=== PATIENT | male | born 1945 | race Caucasian/White ===

== ENCOUNTER 2017-03-07 19:05 | Emergency (ER) | payer MEDICARE, BC ==
--- NOTE | 2017-03-07 20:25 | ED ---
General Adult HPI - General Chief complaint: Shortness of Breath Stated complaint: diff breathing Time Seen by Provider: 03/07/17 19:40 Source: patient Mode of arrival: ambulatory Limitations: no limitations - History of Present Illness Initial comments: This 71-year-old white male presents with daughter with several complaints. She relates that he does have memory problems/dementia and is a fairly poor historian. She feels as though he is having some heavy breathing. He complains of some chest congestion. She relates that he's had some rhinorrhea and occasional cough. He denies any chest pain. She denies any fevers. He apparently has been tired recently and had some loose stools yesterday. He apparently had some slight blurry vision and occasional diaphoresis. She states that he cannot administer his own insulin and had decreased fine motor skills. He has had decreased food intake as well. She does relate a history of diabetes mellitus, atrial fibrillation previous CABG and dementia. She states that he is had some slight abdominal distention. No other complaints or modifying factors. - Related Data Home Medications Medication Instructions Recorded Confirmed Omeprazole [PriLOSEC] 20 mg PO AC-BRKFST 02/23/15 03/07/17 amLODIPine BESYLATE [Norvasc] 10 mg PO HS 05/11/15 03/07/17 Insulin Glargine [Lantus] 52 unit SQ W/SUPPER 10/03/16 03/07/17 Amitriptyline HCl [Elavil] 50 mg PO HS 03/07/17 03/07/17 Aspirin EC [Ecotrin Low Dose] 81 mg PO QAM 03/07/17 03/07/17 Atorvastatin Calcium [Lipitor] 40 mg PO HS 03/07/17 03/07/17 Cetirizine HCl [Zyrtec] 10 mg PO DAILY PRN 03/07/17 03/07/17 Cholecalciferol [Vitamin D3] 2,000 unit PO QAM 03/07/17 03/07/17 Docusate [Colace] 200 mg PO HS PRN 03/07/17 03/07/17 Furosemide [Lasix] 40 mg PO QAM 03/07/17 03/07/17 Gabapentin [Neurontin] 300 mg PO BID 03/07/17 03/07/17 HYDROcodone/APAP 7.5-325MG [[place] 1 tab PO Q6H PRN 03/07/17 03/07/17 7.5-325] INSULIN LISPRO (humaLOG) [humaLOG See Protocol SQ AC-TID 03/07/17 03/07/17 (formulary)] Lisinopril [Zestril] 2.5 mg PO QAM 03/07/17 03/07/17 Metoprolol Succinate (ER) [Toprol 50 mg PO HS 03/07/17 03/07/17 Xl] Potassium Citrate [Potassium 10 meq PO W/SUPPER 03/07/17 03/07/17 Citrate ER] Tamsulosin HCl [Flomax] 0.4 mg PO W/SUPPER 03/07/17 03/07/17 glipiZIDE XL [Glucotrol Xl] 5 mg PO QAM 03/07/17 03/07/17 metFORMIN HCL 1,000 mg PO BID 03/07/17 03/07/17 Previous Rx's Medication Instructions Recorded Donepezil [Aricept] 10 mg PO HS #30 03/13/15 Allergies Allergy/AdvReac Type Severity Reaction Status Date / Time No Known Allergies Allergy Verified 03/07/17 20:16 Review of Systems ROS Statement: Those systems with pertinent positive or pertinent negative responses have been documented in the HPI. ROS Other: All systems not noted in ROS Statement are negative. Past Medical History Past Medical History: Diabetes Mellitus, Hypertension, Memory Impairment Additional Past Medical History / Comment(s): nueropathy, History of Any Multi-Drug Resistant Organisms: None Reported Past Surgical History: Coronary Bypass/CABG, Orthopedic Surgery Additional Past Surgical History / Comment(s): Left foot surgery Past Anesthesia/Blood Transfusion Reactions: No Reported Reaction Past Psychological History: No Psychological Hx Reported Smoking Status: Never smoker Past Alcohol Use History: None Reported Past Drug Use History: None Reported - Past Family History Father Family Medical History: Congestive Heart Failure (CHF) Mother Family Medical History: Congestive Heart Failure (CHF) General Exam - General Exam Comments Initial Comments: GENERAL: The patient is well nourished and well hydrated. VITAL SIGNS: Heart rate, blood pressure, respiratory rate reviewed as recorded in nurse's notes. EYES: Pupils are round and reactive. Extraocular movements are intact. No conjunctival / lid redness or swelling. ENT: No external evidence of injury, swelling, or ecchymosis. Airway is patent. Throat is clear. NECK: Nontender. No swelling or evidence of injury. No subcutaneous emphysema. Trachea is midline. No thyroid mass. HEART: Regular rate and rhythm. Good peripheral pulses. LUNGS/CHEST: Breath sounds clear and equal bilaterally. No rales, rhonchi, or wheezes. No ecchymosis, subcutaneous emphysema, or tenderness. ABDOMEN: Abdomen soft without tenderness. No palpable masses or organomegaly. No peritoneal signs. No abdominal wall swelling or ecchymosis. EXTREMITIES: No extremity tenderness. Normal muscle tone and function. No thoracolumbar tenderness. NEUROLOGIC: Sensation is grossly intact. Cranial nerve exam reveals face is symmetrical, tongue is midline, speech is clear. SKIN: No abrasions or ecchymosis is noted. No induration or masses noted. PSYCHIATRIC: Alert and oriented. Appropriate behavior and judgment. Limitations: no limitations Course Vital Signs 03/07/17 03/07/17 03/07/17 19:13 20:57 22:21 Temperature 98.5 F 97.6 F 99.1 F Pulse Rate 85 79 85 Respiratory 20 18 18 Rate Blood Pressure 155/76 129/66 145/82 O2 Sat by Pulse 97 96 97 Oximetry Medical Decision Making - Medical Decision Making The patient was seen and examined. All diagnostics were reviewed. The patient had a EKG done which shows a normal sinus rhythm with a first-degree AV block. There is occasional PVCs noted. There is some T-wave inversion and leaves in V5 and V6. Is also T-wave inversion noted in the inferior leads. The UT interval is 260, QRS duration is 98, and the QTc interval is 432. The chest and abdominal x-ray was reviewed in no acute processes identified. Laboratories overall fairly unremarkable. The exact cause of his symptoms is not definitively determined. He is watched for several hours and is in no distress whatsoever on recheck. It is felt as though he is stable for discharge. Return parameters are discussed. Phillips as though he should have close follow-up with his primary doctor, Dr. Sharma. - Lab Data Result diagrams: 03/07/17 20:10 03/07/17 20:10 Lab Results 03/07/17 03/07/17 03/07/17 Range/Units 20:10 20:10 20:10 WBC 8.6 (3.8-10.6) k/uL RBC 4.49 (4.30-5.90) m/uL Hgb 13.5 (13.0-17.5) gm/dL Hct 40.0 (39.0-53.0) % MCV 89.0 (80.0-100.0) fL MCH 30.1 (25.0-35.0) pg MCHC 33.8 (31.0-37.0) g/dL RDW 13.7 (11.5-15.5) % Plt Count 184 (150-450) k/uL Neutrophils % 69 % Lymphocytes % 22 % Monocytes % 5 % Eosinophils % 1 % Basophils % 1 % Neutrophils # 5.9 (1.3-7.7) k/uL Lymphocytes # 1.9 (1.0-4.8) k/uL Monocytes # 0.4 (0-1.0) k/uL Eosinophils # 0.1 (0-0.7) k/uL Basophils # 0.1 (0-0.2) k/uL PT (9.0-12.0) sec INR (<1.1) APTT (22.0-30.0) sec D-Dimer (<0.60) mg/L FEU Sodium 140 (137-145) mmol/L Potassium 5.0 (3.5-5.1) mmol/L Chloride 104 (98-107) mmol/L Carbon Dioxide 23 (22-30) mmol/L Anion Gap 13 mmol/L BUN 31 H (9-20) mg/dL Creatinine 1.07 (0.66-1.25) mg/dL Est GFR (MDRD) Af Amer >60 (>60 ml/min/1.73 sqM) Est GFR (MDRD) Non-Af >60 (>60 ml/min/1.73 sqM) Glucose 161 H (74-99) mg/dL Calcium 9.4 (8.4-10.2) mg/dL Total Bilirubin 0.9 (0.2-1.3) mg/dL AST 50 (17-59) U/L ALT 61 (21-72) U/L Alkaline Phosphatase 73 (38-126) U/L Total Creatine Kinase 123 (55-170) U/L CK-MB (CK-2) 2.8 H* (0.0-2.4) ng/mL CK-MB (CK-2) Rel Index 2.3 Troponin I <0.012 (0.000-0.034) ng/mL NT-Pro-B Natriuret Pep pg/mL Total Protein 7.3 (6.3-8.2) g/dL Albumin 3.9 (3.5-5.0) g/dL Amylase 60 (30-110) U/L Lipase 230 (23-300) U/L 03/07/17 03/07/17 Range/Units 20:10 20:10 WBC (3.8-10.6) k/uL RBC (4.30-5.90) m/uL Hgb (13.0-17.5) gm/dL Hct (39.0-53.0) % MCV (80.0-100.0) fL MCH (25.0-35.0) pg MCHC (31.0-37.0) g/dL RDW (11.5-15.5) % Plt Count (150-450) k/uL Neutrophils % % Lymphocytes % % Monocytes % % Eosinophils % % Basophils % % Neutrophils # (1.3-7.7) k/uL Lymphocytes # (1.0-4.8) k/uL Monocytes # (0-1.0) k/uL Eosinophils # (0-0.7) k/uL Basophils # (0-0.2) k/uL PT 10.4 (9.0-12.0) sec INR 1.0 (<1.1) APTT 23.3 (22.0-30.0) sec D-Dimer 0.43 (<0.60) mg/L FEU Sodium (137-145) mmol/L Potassium (3.5-5.1) mmol/L Chloride (98-107) mmol/L Carbon Dioxide (22-30) mmol/L Anion Gap mmol/L BUN (9-20) mg/dL Creatinine (0.66-1.25) mg/dL Est GFR (MDRD) Af Amer (>60 ml/min/1.73 sqM) Est GFR (MDRD) Non-Af (>60 ml/min/1.73 sqM) Glucose (74-99) mg/dL Calcium (8.4-10.2) mg/dL Total Bilirubin (0.2-1.3) mg/dL AST (17-59) U/L ALT (21-72) U/L Alkaline Phosphatase (38-126) U/L Total Creatine Kinase (55-170) U/L CK-MB (CK-2) (0.0-2.4) ng/mL CK-MB (CK-2) Rel Index Troponin I (0.000-0.034) ng/mL NT-Pro-B Natriuret Pep 246 pg/mL Total Protein (6.3-8.2) g/dL Albumin (3.5-5.0) g/dL Amylase (30-110) U/L Lipase (23-300) U/L Disposition Clinical Impression: Dyspnea, Weakness, Fatigue, Dementia Disposition: HOME SELF-CARE Condition: Good Instructions: Dyspnea (ED), Weakness (ED) Referrals: Valente Sharma MD [Primary Care Provider] - 1-2 days Time of Disposition: 22:40
[2017-03-07 20:38] LABS: Basophils # (A) 0.1 k/uL (0-0.2); Basophils % (A) 1 %; CH 29.7; CHCM 33.5; Eosinophils # (A) 0.1 k/uL (0-0.7); Eosinophils % (A) 1 %; HDW 2.54; HGB 13.5 gm/dL (13.0-17.5); Luc % (Auto) 2; Lymphocytes # (A) 1.9 k/uL (1.0-4.8); Lymphocytes % (A) 22 %; MCH 30.1 pg (25.0-35.0); MCHC 33.8 g/dL (31.0-37.0); Mean Platelet Volume 6.8; Monocytes # (A) 0.4 k/uL (0-1.0); Monocytes % (A) 5 %; Neutrophils # (A) 5.9 k/uL (1.3-7.7); Neutrophils % (A) 69 %; RBC 4.49 m/uL (4.30-5.90); RDW 13.7 % (11.5-15.5); WBC 8.6 k/uL (3.8-10.6); WBC (Perox) 8.57
--- NOTE | 2017-03-07 20:47 | XR ---
EXAMINATION TYPE: XR chest 2V DATE OF EXAM: 03/07/2017 8:43 PM COMPARISON: 10/03/2016 HISTORY: Short of breath TECHNIQUE: Frontal and lateral views of the chest are obtained. FINDINGS: There is no heart failure nor confluent pneumonic infiltrate. There are no hilar masses. T here are sternal wires. Costophrenic angles are clear. Bony thorax is intact. IMPRESSION: No active cardiopulmonary disease. No change.
--- NOTE | 2017-03-07 20:48 | XR ---
EXAMINATION TYPE: XR abdomen 2V DATE OF EXAM: 03/07/2017 8:43 PM COMPARISON: NONE HISTORY: Abdominal pain TECHNIQUE: 3 views FINDINGS: There is no sign of intestinal obstruction or pneumoperitoneum. Fecal pattern is normal. Th ere are no pathologic calcifications over the kidneys. There is no sign of a mass. IMPRESSION: Nonacute abdomen.
[2017-03-07 20:50] LABS: Partial Thromboplastin Time 23.3 sec (22.0-30.0); Prothrombin Time 10.4 sec (9.0-12.0)
[2017-03-07 20:53] LABS: ALT 61 U/L (21-72); AST 50 U/L (17-59); Alkaline Phosphatase 73 U/L (38-126); Amylase 60 U/L (30-110); Anion Gap 13 mmol/L; Blood Urea Nitrogen 31 mg/dL (9-20); Calcium 9.4 mg/dL (8.4-10.2); Carbon Dioxide 23 mmol/L (22-30); Chloride 104 mmol/L (98-107); Glucose 161 mg/dL (74-99); Non-African American GFR(MDRD) >60 (>60 ml/min/1.73 sqM); Sodium 140 mmol/L (137-145); Total Bilirubin 0.9 mg/dL (0.2-1.3); Total Protein 7.3 g/dL (6.3-8.2)
[2017-03-07 20:57] LABS: Creatine Kinase 123 U/L (55-170)
[2017-03-07 20:58] VITALS: RESP 18
[2017-03-07 21:09] LABS: Troponin I <0.012 ng/mL (0.000-0.034)
[2017-03-07 21:11] LABS: Creatine Kinase MB 2.8 ng/mL (0.0-2.4)
[2017-03-07 22:22] VITALS: BP 145/82; PULSE 85; TEMP 99.1
== END 2017-03-07 23:01 | disposition home or self-care (01) ==
LOC: EC 19:05
DX: F03.90 Unspecified dementia, unspecified severity, without behavioral disturbance, psychotic disturbance, mood disturbance, and anxiety (principal); R06.02 Shortness of breath; R53.1 Weakness; R53.83 Other fatigue; I44.0 Atrioventricular block, first degree; I49.3 Ventricular premature depolarization; R09.89 Other specified symptoms and signs involving the circulatory and respiratory systems; H53.8 Other visual disturbances; J34.89 Other specified disorders of nose and nasal sinuses; R05 Cough; R61 Generalized hyperhidrosis; R14.0 Abdominal distension (gaseous); E11.9 Type 2 diabetes mellitus without complications; I10 Essential (primary) hypertension; Z79.4 Long term (current) use of insulin; Z79.82 Long term (current) use of aspirin; Z79.899 Other long term (current) drug therapy
CPT/HCPCS: 36415; 71020; 74020; 80053; 82150; 82550; 82553; 83690; 83880; 84484; 85025; 85379; 85610; 85730; 87040; 93005; 99285

== ENCOUNTER 2017-04-19 17:43 | Emergency (ER) | payer MEDICARE, BC ==
--- NOTE | 2017-04-19 19:27 | XR ---
EXAMINATION TYPE: XR chest 2V DATE OF EXAM: 04/19/2017 COMPARISON: 03/07/2017 INDICATION: Rib pain TECHNIQUE: Frontal and lateral views of the chest are obtained. FINDINGS: The heart size is normal. The pulmonary vasculature is normal. The lungs are clear. Sternotomy wires are in the midline. IMPRESSION: 1. No acute pulmonary process.
--- NOTE | 2017-04-19 20:32 | ED ---
General Adult HPI - General Chief complaint: Recheck/Abnormal Lab/Rx Stated complaint: abdominal swelling Source: patient Mode of arrival: ambulatory Limitations: no limitations - History of Present Illness Initial comments: 71-year-old male presented for evaluation of left chest wall pain. He states that about 2 weeks ago he had rib fractures to the left side and they have been healing well since. Over the last couple days however he has developed a small fluctuant mass to the anterior chest wall. It is only minimally tender to palpation and he states there is no overlying erythema or discoloration. Eyes any other symptoms at this time and just wanted to get it reevaluated. He sees his primary care physician on Tuesday. - Related Data Home Medications Medication Instructions Recorded Confirmed Omeprazole [PriLOSEC] 20 mg PO AC-BRKFST 02/23/15 04/19/17 amLODIPine BESYLATE [Norvasc] 10 mg PO HS 05/11/15 04/19/17 Insulin Glargine [Lantus] 52 unit SQ W/SUPPER 10/03/16 04/19/17 Amitriptyline HCl [Elavil] 50 mg PO HS 03/07/17 04/19/17 Aspirin EC [Ecotrin Low Dose] 81 mg PO QAM 03/07/17 04/19/17 Atorvastatin Calcium [Lipitor] 40 mg PO HS 03/07/17 04/19/17 Cetirizine HCl [Zyrtec] 10 mg PO DAILY PRN 03/07/17 04/19/17 Cholecalciferol [Vitamin D3] 2,000 unit PO QAM 03/07/17 04/19/17 Docusate [Colace] 200 mg PO HS PRN 03/07/17 04/19/17 Gabapentin [Neurontin] 300 mg PO BID 03/07/17 04/19/17 HYDROcodone/APAP 7.5-325MG [[place] 1 tab PO Q6H PRN 03/07/17 04/19/17 7.5-325] INSULIN LISPRO (humaLOG) [humaLOG See Protocol SQ AC-TID 03/07/17 04/19/17 (formulary)] Lisinopril [Zestril] 2.5 mg PO QAM 03/07/17 04/19/17 Metoprolol Succinate (ER) [Toprol 50 mg PO HS 03/07/17 04/19/17 Xl] Potassium Citrate [Potassium 10 meq PO W/SUPPER 03/07/17 04/19/17 Citrate ER] Tamsulosin HCl [Flomax] 0.4 mg PO W/SUPPER 03/07/17 04/19/17 glipiZIDE XL [Glucotrol Xl] 5 mg PO QAM 03/07/17 04/19/17 metFORMIN HCL 1,000 mg PO BID 03/07/17 04/19/17 Previous Rx's Medication Instructions Recorded Donepezil [Aricept] 10 mg PO HS #30 03/13/15 Allergies Allergy/AdvReac Type Severity Reaction Status Date / Time No Known Allergies Allergy Verified 04/19/17 19:31 Review of Systems ROS Statement: Those systems with pertinent positive or pertinent negative responses have been documented in the HPI. ROS Other: All systems not noted in ROS Statement are negative. Constitutional: Denies: fever, chills, night sweats Eyes: Denies: eye pain Respiratory: Denies: cough, dyspnea Cardiovascular: Denies: chest pain, palpitations, dyspnea on exertion, orthopnea Endocrine: Denies: fatigue, polydipsia, polyuria Gastrointestinal: Denies: abdominal pain, nausea, vomiting Genitourinary: Denies: urgency, dysuria Musculoskeletal: Reports: other (Left sided chest pain due to fractured ribs with overlying fluctuant mass). Denies: back pain, arthralgia, myalgia Skin: Denies: rash, lesions Neurological: Denies: headache, weakness Psychiatric: Denies: anxiety, depression Hematological/Lymphatic: Denies: easy bleeding, easy bruising Past Medical History Past Medical History: Dementia, Diabetes Mellitus, Hypertension, Memory Impairment Additional Past Medical History / Comment(s): nueropathy, History of Any Multi-Drug Resistant Organisms: None Reported Past Surgical History: Coronary Bypass/CABG, Orthopedic Surgery Additional Past Surgical History / Comment(s): Left foot surgery Past Anesthesia/Blood Transfusion Reactions: No Reported Reaction Past Psychological History: No Psychological Hx Reported Smoking Status: Never smoker Past Alcohol Use History: None Reported Past Drug Use History: None Reported - Past Family History Father Family Medical History: Congestive Heart Failure (CHF) Mother Family Medical History: Congestive Heart Failure (CHF) General Exam Limitations: no limitations General appearance: alert, in no apparent distress Head exam: Present: atraumatic, normocephalic, normal inspection Eye exam: Present: normal appearance, PERRL, EOMI. Absent: scleral icterus, conjunctival injection, periorbital swelling ENT exam: Present: normal exam, mucous membranes moist Neck exam: Present: normal inspection. Absent: tenderness, meningismus, lymphadenopathy Respiratory exam: Present: normal lung sounds bilaterally. Absent: respiratory distress, wheezes, rales, rhonchi, stridor Cardiovascular Exam: Present: regular rate, normal rhythm, normal heart sounds. Absent: systolic murmur, diastolic murmur, rubs, gallop, clicks GI/Abdominal exam: Present: soft, normal bowel sounds. Absent: distended, tenderness, guarding, rebound, rigid Rectal exam: Present: deferred Extremities exam: Present: normal inspection, full ROM, normal capillary refill. Absent: tenderness, pedal edema, joint swelling, calf tenderness Back exam: Present: normal inspection Neurological exam: Present: alert, oriented X3, CN II-XII intact Psychiatric exam: Present: normal affect, normal mood Skin exam: Present: warm, dry, intact, normal color, other (3 cm x 1 cm fluctuant mass to the anterior surface of the left lower chest.). Absent: rash Course Vital Signs 04/19/17 04/19/17 17:51 20:49 Temperature 98.1 F 98.7 F Pulse Rate 78 74 Respiratory 20 17 Rate Blood Pressure 124/68 128/82 O2 Sat by Pulse 98 99 Oximetry Medical Decision Making - Medical Decision Making 71-year-old male presented for evaluation of fluctuant mass to the chest 2 weeks post rib fractures. On physical examination the mass is fluctuant but on chest x-ray that shows no malalignment of the ribs. Concern for the mass being an underlying hematoma the ribs. The patient and his daughter were informed of the results and that they be discharged with instructions to keep the appointment on Tuesday with primary care physician but to return to this facility if his symptoms should worsen or persist. The patient and his daughter acknowledged an understanding of this information and agreed with this plan of care. Disposition Clinical Impression: Rib contusion Disposition: HOME SELF-CARE Condition: Stable Instructions: Rib Fracture (ED) Referrals: Valente Sharma MD [Primary Care Provider] - 1-2 days Time of Disposition: 20:31
[2017-04-19 20:51] VITALS: BP 128/82; PULSE 74; RESP 17; TEMP 98.7
== END 2017-04-19 20:49 | disposition home or self-care (01) ==
LOC: EC 17:43
DX: S20.212D Contusion of left front wall of thorax, subsequent encounter (principal); F03.90 Unspecified dementia, unspecified severity, without behavioral disturbance, psychotic disturbance, mood disturbance, and anxiety; E11.9 Type 2 diabetes mellitus without complications; I10 Essential (primary) hypertension; E11.40 Type 2 diabetes mellitus with diabetic neuropathy, unspecified; Z79.4 Long term (current) use of insulin; Z79.82 Long term (current) use of aspirin; Z79.899 Other long term (current) drug therapy; Z95.1 Presence of aortocoronary bypass graft; W19.XXXD Unspecified fall, subsequent encounter
CPT/HCPCS: 71020; 99284

== ENCOUNTER → 2017-04-27 | Outpatient (CLI) | payer MEDICARE, BC ==
--- NOTE | 2017-04-27 17:53 | US ---
EXAMINATION TYPE: US mass soft tissue chest/back DATE OF EXAM: 04/27/2017 COMPARISON: NONE CLINICAL HISTORY: S20.20XS Contusion of thorax. Findings There is demonstration of a large elongated complex fluid collection in the subcutaneous tissues in t he area of concern. This measures 9 x 2 x 4 cm. IMPRESSION: There is evidence of a chest wall hematoma as above. Abscess is in the differential diag nosis.
== END | disposition home or self-care (01) ==
LOC: RADUSMAIN 16:54
PROVIDERS: ATTEND Family Medicine
DX: S20.219S Contusion of unspecified front wall of thorax, sequela (principal)

== ENCOUNTER → 2019-05-18 | Outpatient (CLI) | payer MEDICARE, BC ==
--- NOTE | 2019-05-23 15:20 | P.ARTDOP ---
Arterial Doppler LOWER EXTREMITY ARTERIAL DOPPLER: DATE OF SERVICE: 05/18/2019 Reason for study: Foot ulcers. Doppler waveforms: Multiphasic bilaterally throughout. Pulse volume recording: []. Pressure gradients: Only registered at the right foot. Ankle-brachial indices: Abnormally high. Toe pressures: 54 on the right, 96 on the left Impression: Suspect calcific wall disease of modest clinical severity. Perfusion pressures are probably adequate for healing on both sides. Left side is somewhat better perfused than the right. Clinical correlation recommended.
== END | disposition home or self-care (01) ==
LOC: RADUSWWP 14:19
PROVIDERS: ATTEND Family Medicine
DX: L97.909 Non-pressure chronic ulcer of unspecified part of unspecified lower leg with unspecified severity (principal)
CPT/HCPCS: 93923

== ENCOUNTER → 2019-11-07 | Outpatient (CLI) | payer MEDICARE, BC ==
[2019-11-07 15:58] LABS: HCT 42.1 % (39.0-53.0); MCH 29.1 pg (25.0-35.0); MCHC 33.4 g/dL (31.0-37.0); MCV 87.3 fL (80.0-100.0); Platelet Count 239 k/uL (150-450); RBC 4.82 m/uL (4.30-5.90); RDW 12.9 % (11.5-15.5); WBC 9.5 k/uL (3.8-10.6)
[2019-11-07 16:10] LABS: Potassium 4.7 mmol/L (3.5-5.1)
== END | disposition home or self-care (01) ==
LOC: LABPAT 14:46
PROVIDERS: ATTEND Internal Medicine Interventional Cardiology
DX: Z01.812 Encounter for preprocedural laboratory examination (principal); I70.213 Atherosclerosis of native arteries of extremities with intermittent claudication, bilateral legs
CPT/HCPCS: 36415; 80051; 82565; 84520; 85027

== ENCOUNTER 2019-11-09 07:23 | Day surgery (SDC) | payer MEDICARE, BC ==
[2019-11-08 12:19] VITALS: BMI 36.9
[~2019-11-09 07:23] MED LIST: ALPRAZolam 0.25 MG TAB PO PRN; ALPRAZolam 0.5 MG TAB PO PRN; ASPIRIN 325 MG TAB PO STA; SODIUM CHLORIDE 0.9% 1,000 ML in EMPTY BAG 1 BAG IV ONE; ZOLPIDEM 5 MG TAB PO PRN
[2019-11-09 08:07] LABS: Glucose,Whole Blood 144 mg/dL (75-99)
[2019-11-09] MEDS: MIDAZOLAM 2 MG/2 ML VIAL IV ONE ×2 (09:01→09:07)
[2019-11-09] MEDS ORDERED: LIDOCAINE 1% INJ 10MG/ML (20 ML MDV) SQ ONE (09:08)
[2019-11-09] MEDS ORDERED: IOPAMIDOL-250 100ML BTL INTRAARTER ONE (09:28)
[2019-11-09] MEDS ORDERED: SODIUM CHLORIDE 0.9% 1,000 ML IV SCH ×2 (09:45→10:00)
--- NOTE | 2019-11-09 10:11 | AN ---
ANGIOGRAPHY REPORT DATE OF SERVICE: November 09, 2019 PERFORMING PHYSICIAN: Fernando Hodges MD. PROCEDURE PERFORMED: 1. An abdominal aortogram. 2. Bilateral lower extremities runoff. 3. Selective left popliteal angiogram. 4. Selective right common femoral artery angiogram. INDICATION: This is a 74-year-old gentleman who sees Dr. Sigala in the office on a regular basis with history of coronary artery disease and prior CABG, aortic stenosis and diabetes, who was referred by Dr. Sharma for further evaluation of peripheral arterial disease. He was struggling with nonhealing ulcers involving the left foot and the ulcers specifically are located on the left baby toe as well as on the dorsal aspect of the left foot. APPROACH: Right common femoral artery. COMPLICATION: None. LEVEL OF SEDATION: Moderate with sedation length of 22 minutes. PROCEDURE DESCRIPTION: After obtaining an informed consent, the patient was brought to the cardiac cemetery laborer. The right common femoral artery was cannulated using micropuncture technique, the micropuncture wire passed easily then I placed a 5-[place] sheath. I did after that an abdominal aortogram and bilateral lower extremities runoff using 5-[place] pigtail catheter which was initially placed at the level of the renal arteries then it was pulled into above the bifurcation of the aorta to right and left common iliac arteries. Subsequently, I did select the left popliteal using a 5-[place] Omni Flush catheter with 0.035 Glidewire. I did after that exchange the Omni Flush catheter into a curved tipped glide catheter. I did selective left popliteal angiogram for better visualization of the arteries below the knee and also selective right common femoral artery angiogram. The procedure was completed without any complication. SELECTIVE PERIPHERAL ANGIOGRAM: 1. The aorta appeared to be angiographically normal. 2. Common Iliac Arteries: Both appear to be angiographically normal. 3. Internal Iliac Arteries: Both are patent. 4. External Iliac Arteries: Both are angiographically normal. 5. Common Femoral Arteries: Both appear to be angiographically normal. 6. Profunda: Both appear to be angiographically normal. 7. SFA: The right and left SFA appear to have mild to moderate disease without any high-grade stenosis. 8. Popliteal appear to have mild to moderate disease without any high-grade stenosis. 9. Below the knee: On the right side, there is one-vessel runoff with anterior tibial artery only which has a lesion in the proximal portion about 70% to 80%. On the left side, there is 2-vessel runoff. The anterior tibial which is occluded in the midportion on short segment and peroneal as well. The posterior tibial is occluded as well. CONCLUSION: 1. Mild aortoiliac disease. 2. Mild to moderate femoral-popliteal disease. 3. Severe qyrxj-sfa-piec disease bilaterally. On the right side, the anterior tibial is occluded on short segment. On the left side, the patient does have one vessel runoff with anterior tibial which has severe disease. POSTPROCEDURE MANAGEMENT: Giving the above anatomy and the ulcer location on the left side, the ulcer is in the distribution of the left anterior tibial artery by , the patient needs to undergo a STARS COORDINATOR of the left anterior tibial artery. The patient will be scheduled to have the procedure done in the next few weeks. MMROSENDO / JOHNN: [id number] /
[2019-11-09] MEDS ORDERED: ACETAMINOPHEN TAB 325 MG TAB ONE (16:22)
[2019-11-09 16:34] LABS: Glucose,Whole Blood 343 mg/dL (75-99)
[2019-11-09] MEDS ORDERED: guaiFENesin 600 MG TABLET.ER PO PRN (16:39)
[2019-11-09] MEDS ORDERED: guaiFENesin SYRUP 100MG/5ML 200 MG/10 ML CUP PO PRN (16:39)
[2019-11-09] MEDS: INSULIN ASPART (NovoLOG) 100 UNIT/ML VIAL SQ SCH ×2 (16:47→21:46)
[2019-11-09] MEDS ORDERED: INSULIN DETEMIR (LEVEMIR) 100 UNIT/ML SYR SQ SCH (17:30)
[2019-11-09] MEDS ORDERED: TAMSULOSIN 0.4 MG CAP.ER.24H PO SCH (17:30)
[2019-11-09] MEDS ORDERED: POTASSIUM CITRATE 10 MEQ TABLET.ER PO SCH (17:30)
[2019-11-09 17:53] VITALS: RESP 18
[2019-11-09 20:39] LABS: Glucose,Whole Blood 282 mg/dL (75-99)
[2019-11-09] MEDS ORDERED: LEVOFLOXACIN 500 MG TAB PO SCH (21:00)
[2019-11-09] MEDS ORDERED: DONEPEZIL 10 MG TAB PO SCH (21:00)
[2019-11-09] MEDS ORDERED: METOPROLOL SUCCINATE (ER) 50 MG TAB.ER.24H PO SCH (21:00)
[2019-11-09] MEDS ORDERED: amLODIPine 10 MG TAB PO SCH (21:00)
[2019-11-09] MEDS ORDERED: ATORVASTATIN 80 MG TAB PO SCH (21:00)
[2019-11-09] MEDS ORDERED: AMITRIPTYLINE HCL 50 MG TAB PO SCH (21:00)
[2019-11-09] MEDS: GABAPENTIN 300 MG CAP PO SCH (21:46)
[2019-11-10 04:57] VITALS: TEMP 97.4
[2019-11-10 07:13] LABS: Glucose,Whole Blood 146 mg/dL (75-99)
[2019-11-10] MEDS ORDERED: PANTOPRAZOLE 40 MG TABLET PO SCH (07:30)
[2019-11-10 08:16] VITALS: BP 112/63; PULSE 97
[2019-11-10] MEDS: INSULIN ASPART (NovoLOG) 100 UNIT/ML VIAL SQ SCH ×2 (08:20→13:00)
[2019-11-10] MEDS: GABAPENTIN 300 MG CAP PO SCH (08:27)
--- NOTE | 2019-11-10 08:57 | P.DS ---
Providers Date of admission: 11/09/2019 Attending physician: Fernando Hodges Primary care physician: Valente Lopez [facility] Hospital Course: This is a 75-year-old gentleman who was referred for further evaluation of critical limb ischemia. He underwent an aortogram with runoff yesterday which revealed critical below the knee disease bilaterally. The procedure was performed from the right groin which is soft and nontender and without any bruises. The patient is going to be discharged home and I will follow-up with him next week in the office. Plan - Discharge Summary Discharge Rx Participant: Yes New Discharge Prescriptions: Continue Omeprazole [PriLOSEC] 20 mg PO AC-BRKFST Donepezil [Aricept] 10 mg PO HS #30 amLODIPine BESYLATE [Norvasc] 10 mg PO HS Insulin Glargine [Lantus] 56 unit SQ W/SUPPER Amitriptyline HCl [Elavil] 50 mg PO HS Aspirin EC [Ecotrin Low Dose] 81 mg PO QAM Atorvastatin Calcium [Lipitor] 80 mg PO HS Cholecalciferol [Vitamin D3 (25 Mcg = 1000 Iu)] 2,000 unit PO QAM Gabapentin [Neurontin] 300 mg PO BID Lisinopril [Zestril] 2.5 mg PO QAM Metoprolol Succinate (ER) [Toprol XL] 50 mg PO HS Potassium Citrate [Potassium Citrate ER] 10 meq PO W/SUPPER Tamsulosin HCl [Flomax] 0.4 mg PO W/SUPPER Levofloxacin [Levaquin] 500 mg PO DAILY Furosemide [Lasix] 40 mg PO DAILY guaiFENesin [Mucinex] 1,200 mg PO Q12HR PRN PRN Reason: Cough guaiFENesin [Diabetic Tussin Ex] 5 ml PO DIRECTED PRN PRN Reason: Cough Semaglutide [Ozempic] 1 mg SQ TU Insulin Aspart [NovoLOG Flexpen] See Protocol SQ AC-TID Discontinued metFORMIN HCL 1,000 mg PO BID Discharge Medication List Omeprazole [PriLOSEC] 20 mg PO AC-BRKFST 02/23/15 [History] Donepezil [Aricept] 10 mg PO HS #30 03/13/15 [Rx] amLODIPine BESYLATE [Norvasc] 10 mg PO HS 05/11/15 [History] Insulin Glargine [Lantus] 56 unit SQ W/SUPPER 10/03/16 [History] Amitriptyline HCl [Elavil] 50 mg PO HS 03/07/17 [History] Aspirin EC [Ecotrin Low Dose] 81 mg PO QAM 03/07/17 [History] Atorvastatin Calcium [Lipitor] 80 mg PO HS 03/07/17 [History] Cholecalciferol [Vitamin D3 (25 Mcg = 1000 Iu)] 2,000 unit PO QAM 03/07/17 [H istory] Gabapentin [Neurontin] 300 mg PO BID 03/07/17 [History] Lisinopril [Zestril] 2.5 mg PO QAM 03/07/17 [History] Metoprolol Succinate (ER) [Toprol XL] 50 mg PO HS 03/07/17 [History] Potassium Citrate [Potassium Citrate ER] 10 meq PO W/SUPPER 03/07/17 [History] Tamsulosin HCl [Flomax] 0.4 mg PO W/SUPPER 03/07/17 [History] Furosemide [Lasix] 40 mg PO DAILY 11/08/19 [History] Insulin Aspart [NovoLOG Flexpen] See Protocol SQ AC-TID 11/08/19 [History] Levofloxacin [Levaquin] 500 mg PO DAILY 11/08/19 [History] Semaglutide [Ozempic] 1 mg SQ TU 11/08/19 [History] guaiFENesin [Diabetic Tussin Ex] 5 ml PO DIRECTED PRN 11/08/19 [History] guaiFENesin [Mucinex] 1,200 mg PO Q12HR PRN 11/08/19 [History] Follow up Appointment(s)/Referral(s): Fernando Hodges MD [STAFF PHYSICIAN] - 11/19/19 1:45 pm Patient Instructions/Handouts: Moderate Sedation (DC), Angiography (DC) Activity/Diet/Wound Care/Special Instructions: Ok to shower tomorrow. Take dressing off before showering. No baths hot tubs pools for three days. Signs of infection ie: fever, rash, drainage, swelling from puncture site contact Doctor immediately/return to ER. Heavy bleeding from puncture site apply Heavy firm pressure to site and call 911. Avoid stairs, lifting, pushing pulling for two days. no Metformin until Tuesday evening dose.
[2019-11-10] MEDS ORDERED: CHOLECALCIFEROL 1,000 UNIT TAB PO SCH (09:00)
[2019-11-10] MEDS ORDERED: LISINOPRIL 2.5 MG TAB PO SCH (09:00)
[2019-11-10] MEDS ORDERED: ASPIRIN 81 MG PO SCH (09:00)
[2019-11-10] MEDS ORDERED: FUROSEMIDE 40 MG TAB PO SCH (09:00)
[2019-11-10 11:56] LABS: Glucose,Whole Blood 280 mg/dL (75-99)
--- NOTE | 2019-11-12 12:12 | IR ---
Fluoroscopy HISTORY: Ulcer to left toe 5.1 minutes fluoroscopy time supplied to the referring clinician. 186 intraoperative C-arm images do cument the procedure. See dictated report from cardiology.
[2019-11-13] MEDS ORDERED: Semaglutide [Ozempic] 1 MG SQ SCH (09:00)
== END 2019-11-10 13:00 ==
LOC: CATHCVL 07:23 → 1SOBS 09:30 → CATHCVL 11-10 13:00
PROVIDERS: ATTEND Internal Medicine Interventional Cardiology
DX: I25.10 Atherosclerotic heart disease of native coronary artery without angina pectoris (principal); I73.9 Peripheral vascular disease, unspecified; E11.9 Type 2 diabetes mellitus without complications; I35.0 Nonrheumatic aortic (valve) stenosis; I77.9 Disorder of arteries and arterioles, unspecified; E78.5 Hyperlipidemia, unspecified; Z79.82 Long term (current) use of aspirin; Z79.4 Long term (current) use of insulin; I48.91 Unspecified atrial fibrillation; Z95.1 Presence of aortocoronary bypass graft; I11.0 Hypertensive heart disease with heart failure; I50.9 Heart failure, unspecified; I99.8 Other disorder of circulatory system
CPT/HCPCS: 36247; 75625; 75716

== ENCOUNTER 2020-01-02 09:17 | Day surgery (SDC) | payer MEDICARE, BC ==
[2019-12-31 15:35] VITALS: BMI 37.5
[~2020-01-02 09:17] MED LIST changes: -ALPRAZolam 0.5 MG TAB PO PRN; -ZOLPIDEM 5 MG TAB PO PRN
[2020-01-02 10:10] LABS: Glucose,Whole Blood 192 mg/dL (75-99)
[2020-01-02 10:17] LABS: Glucose,Whole Blood 203 mg/dL (75-99)
[2020-01-02] MEDS ORDERED: SODIUM CHLORIDE 0.9% 1,000 ML IV ONE (10:17)
[2020-01-02] MEDS ORDERED: INSULIN ASPART (NovoLOG) 100 UNIT/ML VIAL SQ ONE (10:21)
[2020-01-02] MEDS ORDERED: SODIUM CHLORIDE 0.9% 500 ML 500 ML with niCARdipine 6.25 MG, NITROGLYCERIN-D5W PMX 0.05... IV ONE ×4 (10:29)
[2020-01-02] MEDS ORDERED: MIDAZOLAM 2 MG/2 ML VIAL IVP ONE ×2 (11:00→11:12)
[2020-01-02] MEDS ORDERED: LIDOCAINE 1% INJ 10MG/ML (20 ML MDV) SQ ONE (11:02)
[2020-01-02] MEDS ORDERED: HEPARIN SODIUM 1,000 UN/ML (10ML VL) IV ONE (11:06)
[2020-01-02] MEDS ORDERED: HYDROmorphone 1 MG/ML 1 ML SYRINGE IVP ONE (11:09)
[2020-01-02] MEDS: NITROGLYCERIN 1000MCG/10ML SYRINGE INTRAARTER ONE ×2 (11:53→12:03)
[2020-01-02] MEDS: niCARdipine Syringe (1,000 mcg/10 mL) INTRAARTER ONE ×2 (11:53→12:03)
[2020-01-02] MEDS ORDERED: CLOPIDOGREL 75 MG TAB PO ONE (12:20)
[2020-01-02] MEDS ORDERED: IOPAMIDOL-250 100ML BTL INTRAARTER ONE (12:21)
[2020-01-02] MEDS ORDERED: SODIUM CHLORIDE 0.9% 1,000 ML in EMPTY BAG 1 BAG IV SCH (12:30)
[2020-01-02] MEDS: INSULIN ASPART (NovoLOG) 100 UNIT/ML VIAL SQ SCH ×4 (12:30→20:01)
[2020-01-02 12:49] LABS: Glucose,Whole Blood 135 mg/dL (75-99)
[2020-01-02] MEDS ORDERED: ACETAMINOPHEN TAB 325 MG TAB ONE (12:57)
--- NOTE | 2020-01-02 13:10 | LTR ---
DATE OF SERVICE: 01/02/2020 RE: [place] Tim Dear Dr. Sharma; Mr. Tim Coleman underwent today successful balloon angioplasty of the left anterior tibial artery with an excellent angiographic result and reduction of stenosis from 100% to 0%. With that, his left foot ulcer should heal completely. I want to thank you for allowing us to participate in his care and please do not hesitate to call if you have any question or concern. Sincerely, Fernando Hodges MD MMMARYANL / JOHNN: [id number] /
--- NOTE | 2020-01-02 13:16 | AN ---
ANGIOGRAPHY REPORT DATE OF SERVICE: 01/02/2020 PERFORMING PHYSICIAN: Fernando Hodges MD. PROCEDURE PERFORMED: 1. Selective left anterior tibial angiogram. 2. Selective left popliteal angiogram. 3. Selective right common femoral artery angiogram. 4. Intravascular ultrasound IVUS of the left anterior tibial and left popliteal artery. 5. Atherectomy of the left anterior tibial and left popliteal using the orbital atherectomy device. 6. Successful balloon angioplasty of the left anterior tibial artery using 2.5 x 120 mm chocolate balloon with an excellent angiographic result and reduction of stenosis from 100% to 0%. 7. Successful balloon angioplasty of the left popliteal using 14 mm drug-coated balloon with an excellent angiographic results. INDICATION: This is a very pleasant 74-year-old gentleman who sees Dr. Sigala in the office as an outpatient who sees also Dr. Sigala as an outpatient who was struggling with evidence of critical limb ischemia. He underwent an angiogram which revealed severe jvcnt-[id number] disease on the left side with occluded anterior tibial artery as well as occluded posterior tibial artery and severe disease involving the left peroneal artery. Beside that, he was found to have intermediate to severe disease involving the left popliteal. Because of that, he was brought today to undergo a JANITOR CUSTODIAN of the left anterior tibial artery. APPROACH: Right common femoral artery. COMPLICATION: None. Level of sedation is moderate with sedation length of 16 minutes. PROCEDURE DESCRIPTION: After obtaining informed consent, the patient was brought to the cardiac medical laboratory technical officer. The right common femoral artery was cannulated using micropuncture technique, the micropuncture wire passed easily then I placed a 6-[place] sheath 11 cm at the right common femoral artery. After that, I did place a 6-[place] sheath 11 cm at the right common femoral artery. At that point, anticoagulation was initiated using heparin and the patient was given a weight-based heparin with 8000 units of heparin IV. ACT monitoring was done throughout the procedure. After that, I did select the left SFA using 5-[place] Rim catheter with 0.035 glide Advantage wire. After that, I did exchange my 11 cm 6-[place] sheath into 70 cm 6- [place] Raabe sheath using the 0.035 [place] Advantage wire. The sheath was advanced all the way to the mid to distal left SFA under fluoroscopy guidance. After that, I did selective left ivmpt-dkt-[id number] angiogram which revealed severe below- the-knee disease on the left side with occluded posterior tibial, occluded anterior tibial, and severe disease involving the tibioperoneal trunk as well as peroneal. I was able to cross the chronic the total occlusion of the left anterior tibial artery using a 0.18 wolff tip glidewire with the backup support of 0.18 quick Cross catheter. That was performed where the Quick Cross was following the wire all the way to the distal left anterior tibial artery. After that, I pulled the wire out and I did inject contrast to prove that I was in the true lumen in the left anterior tibial artery. After that, I did advance a Viper wire which was over 0.014 wire into the Quick Cross catheter, preparing for rotational atherectomy. Before rotational atherectomy was performed, I did intravascular ultrasound which revealed calcified left anterior tibial artery with minimal lumen diameter of about 2.75 mm. I did atherectomy of the left anterior tibial artery using the orbital atherectomy device from [employer]. It was 1.25 mm solid james. After that, I did balloon angioplasty of the left anterior tibial artery using 2.5 mm x 120 mm chocolate balloon where the left anterior tibial artery was ballooned on multiple segments. The following angiogram showed good angiographic results. I did also atherectomy of the left popliteal artery which before that I did intravascular ultrasound which revealed severe lesion there above 70%. I did also after that balloon angioplasty of the left popliteal. At this time using 5 mm x 40 mm chocolate balloon. The balloon was inflated under 10 atmospheres for 3 minutes. The following angiogram showed excellent angiographic results with great flow in the left popliteal and left anterior tibial artery and the procedure was completed without any complication. I did exchange my long sheath into 11 cm 6-[place] short sheath using 0.035 [place] Advantage wire. After that, I did selective right common femoral artery angiogram which revealed good entry of the sheath where I did close the groin using the Angio- Seal device. POSTPROCEDURE MANAGEMENT: 1. Dual anti-platelet therapy. 2. Risk factors modifications. 3. Follow up with the patient. 4. JANITOR CUSTODIAN of the left peroneal and tibioperoneal trunk if the wound did not heal. MMODL / IJN: [id number] /
[2020-01-02] MEDS ORDERED: TAMSULOSIN 0.4 MG CAP.ER.24H PO SCH (17:30)
[2020-01-02] MEDS ORDERED: POTASSIUM CITRATE 10 MEQ TABLET.ER PO SCH (17:30)
[2020-01-02] MEDS ORDERED: INSULIN DETEMIR (LEVEMIR) 100 UNIT/ML SYR SQ SCH (17:30)
[2020-01-02 17:37] LABS: Glucose,Whole Blood 211 mg/dL (75-99)
[2020-01-02] MEDS: GABAPENTIN 300 MG CAP PO SCH (19:56)
[2020-01-02 20:01] LABS: Glucose,Whole Blood 374 mg/dL (75-99)
[2020-01-02] MEDS ORDERED: METOPROLOL SUCCINATE (ER) 50 MG TAB.ER.24H PO SCH (21:00)
[2020-01-02] MEDS ORDERED: DONEPEZIL 10 MG TAB PO SCH (21:00)
[2020-01-02] MEDS ORDERED: AMITRIPTYLINE HCL 50 MG TAB PO SCH (21:00)
[2020-01-02] MEDS ORDERED: amLODIPine 10 MG TAB PO SCH (21:00)
[2020-01-02] MEDS ORDERED: ATORVASTATIN 80 MG TAB PO SCH (21:00)
[2020-01-03 03:19] VITALS: RESP 18
[2020-01-03 06:14] LABS: Glucose,Whole Blood 205 mg/dL (75-99)
[2020-01-03] MEDS: INSULIN ASPART (NovoLOG) 100 UNIT/ML VIAL SQ SCH ×2 (06:23→12:14)
[2020-01-03 06:30] LABS: Basophils % (A) 0 %; Eosinophils # (A) 0.1 k/uL (0-0.7); Eosinophils % (A) 2 %; HCT 36.7 % (39.0-53.0); HGB 12.4 gm/dL (13.0-17.5); Lymphocytes # (A) 1.5 k/uL (1.0-4.8); Lymphocytes % (A) 20 %; MCH 29.1 pg (25.0-35.0); MCHC 33.8 g/dL (31.0-37.0); MCV 86.1 fL (80.0-100.0); Monocytes # (A) 0.4 k/uL (0-1.0); Monocytes % (A) 6 %; Neutrophils # (A) 5.3 k/uL (1.3-7.7); Neutrophils % (A) 70 %; Platelet Count 179 k/uL (150-450); RBC 4.27 m/uL (4.30-5.90); RDW 12.9 % (11.5-15.5); WBC 7.5 k/uL (3.8-10.6)
[2020-01-03 06:38] LABS: African American GFR (CKD) >90 (>60 ml/min/1.73 sqM); Anion Gap 4 mmol/L; Blood Urea Nitrogen 22 mg/dL (9-20); Calcium 8.7 mg/dL (8.4-10.2); Carbon Dioxide 31 mmol/L (22-30); Chloride 101 mmol/L (98-107); Glucose 212 mg/dL (74-99); Non-African American GFR(CKD) 79 (>60 ml/min/1.73 sqM); Potassium 4.6 mmol/L (3.5-5.1); Sodium 136 mmol/L (137-145)
[2020-01-03] MEDS ORDERED: PANTOPRAZOLE 40 MG TABLET PO SCH (07:30)
--- NOTE | 2020-01-03 07:55 | IR ---
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 Fluoroscopy was provided to the referring clinician. 19.7 minutes of fluoroscopy provided.
[2020-01-03] MEDS ORDERED: FUROSEMIDE 40 MG TAB PO SCH (09:00)
[2020-01-03] MEDS ORDERED: ASPIRIN 81 MG PO SCH (09:00)
[2020-01-03] MEDS ORDERED: CHOLECALCIFEROL 1,000 UNIT TAB PO SCH (09:00)
[2020-01-03] MEDS ORDERED: LISINOPRIL 2.5 MG TAB PO SCH (09:00)
[2020-01-03] MEDS ORDERED: CLOPIDOGREL 75 MG TAB PO SCH (09:00)
[2020-01-03] MEDS: GABAPENTIN 300 MG CAP PO SCH (09:44)
[2020-01-03 11:34] VITALS: PULSE 73; TEMP 96.5
[2020-01-03 11:48] LABS: Glucose,Whole Blood 295 mg/dL (75-99)
[2020-01-03 13:35] VITALS: BP 167/79
--- NOTE | 2020-01-04 08:56 | DS ---
DISCHARGE SUMMARY ADMISSION DATE: January 03, 2020. DISCHARGE DATE: January 03, 2020 BRIEF HISTORY: This is a very pleasant 74-year-old gentleman who underwent successful percutaneous peripheral intervention on the left anterior tibial artery. The patient was seen yesterday morning. The patient was asymptomatic. He is going to be discharged home on dual anti-platelet therapy and I will follow up with the patient next week in the office. MMROSENDO / JOHNN: [id number] /
[2020-01-08] MEDS ORDERED: SEMAGLUTIDE 1 MG SQ SCH (12:15)
== END 2020-01-03 14:56 | disposition home or self-care (01) ==
LOC: CATHCVL 09:17 → 3SCARD 16:07 → CATHCVL 01-03 14:56
PROVIDERS: ATTEND Internal Medicine Interventional Cardiology
DX: I70.292 Other atherosclerosis of native arteries of extremities, left leg (principal); I70.92 Chronic total occlusion of artery of the extremities; E11.51 Type 2 diabetes mellitus with diabetic peripheral angiopathy without gangrene; S81.802A Unspecified open wound, left lower leg, initial encounter; I99.8 Other disorder of circulatory system; I25.10 Atherosclerotic heart disease of native coronary artery without angina pectoris; I10 Essential (primary) hypertension; I35.0 Nonrheumatic aortic (valve) stenosis; E78.5 Hyperlipidemia, unspecified; Z95.1 Presence of aortocoronary bypass graft; Z79.82 Long term (current) use of aspirin; Z79.4 Long term (current) use of insulin; Z79.899 Other long term (current) drug therapy
CPT/HCPCS: 37225; 37229; 37252; 37253; 80048; 85025; C1760; C1894 ×2; C1714; C1769 ×6; C1887; C1753; C2623; C1725; J2250; J2001; J1644; J1170; Q9966

== ENCOUNTER 2020-01-20 17:26 | Inpatient (IN) | payer MEDICARE, BC ==
--- NOTE | 2020-01-20 18:07 | ED ---
General Adult HPI - General Chief complaint: Fall Stated complaint: Fall Time Seen by Provider: 01/20/20 17:46 Source: family, RN notes reviewed, old records reviewed Mode of arrival: wheelchair Limitations: no limitations - History of Present Illness Initial comments: 74-year-old male history of early dementia presenting with increased falls and difficulty ambulating. Over the past 48 hours the patient has had multiple falls on both his right and left side. There was head trauma with no LOC. Patient denies anticoagulants. He has history of early dementia, diabetes, hypertension. He has pain in his left ankle, left hip and low back. He denies chest pain or dyspnea. Denies a dull pain nausea vomiting. Denies fever or chills. - Related Data Home Medications Medication Instructions Recorded Confirmed Omeprazole [PriLOSEC] 20 mg PO AC-BRKFST 02/23/15 01/20/20 amLODIPine BESYLATE [Norvasc] 10 mg PO HS 05/11/15 01/20/20 Insulin Glargine [Lantus] 56 unit SQ W/SUPPER 10/03/16 01/20/20 Amitriptyline HCl [Elavil] 50 mg PO HS 03/07/17 01/20/20 Aspirin EC [Ecotrin Low Dose] 81 mg PO [facility] 03/07/17 01/20/20 Cholecalciferol [Vitamin D3 (25 2,000 unit PO [facility] 03/07/17 01/20/20 Mcg = 1000 Iu)] Gabapentin [Neurontin] 300 mg PO BID 03/07/17 01/20/20 Lisinopril [Zestril] 2.5 mg PO [facility] 03/07/17 01/20/20 Metoprolol Succinate (ER) [Toprol 50 mg PO HS 03/07/17 01/20/20 XL] Potassium Citrate [Potassium 10 meq PO W/SUPPER 03/07/17 01/20/20 Citrate ER] Tamsulosin HCl [Flomax] 0.4 mg PO W/SUPPER 03/07/17 01/20/20 Furosemide [Lasix] 40 mg PO DAILY 11/08/19 01/20/20 Insulin Aspart [NovoLOG Flexpen] See Protocol SQ AC-TID 11/08/19 01/20/20 Semaglutide [Ozempic] 1 mg SQ SA 11/08/19 01/20/20 metFORMIN HCL [Glucophage] 1,000 mg PO BID 01/01/20 01/20/20 Atorvastatin [Lipitor] 40 mg PO HS 01/20/20 01/20/20 Previous Rx's Medication Instructions Recorded Donepezil [Aricept] 10 mg PO HS #30 03/13/15 Allergies Allergy/AdvReac Type Severity Reaction Status Date / Time No Known Allergies Allergy Verified 01/20/20 18:28 Review of Systems ROS Statement: Those systems with pertinent positive or pertinent negative responses have been documented in the HPI. ROS Other: All systems not noted in ROS Statement are negative. Past Medical History Past Medical History: Dementia, Diabetes Mellitus, Hyperlipidemia, Hypertension, Memory Impairment, Vascular Disorder Additional Past Medical History / Comment(s): neuropathy History of Any Multi-Drug Resistant Organisms: None Reported Past Surgical History: Coronary Bypass/CABG, Orthopedic Surgery Additional Past Surgical History / Comment(s): Left foot surgery, 5 vessel CABG 2014, recent aortogram Past Anesthesia/Blood Transfusion Reactions: No Reported Reaction Past Psychological History: Anxiety, Depression Smoking Status: Never smoker - Past Family History Father Family Medical History: Congestive Heart Failure (CHF) Mother Family Medical History: Congestive Heart Failure (CHF) General Exam Limitations: no limitations General appearance: alert, in no apparent distress Head exam: Present: atraumatic, normocephalic Eye exam: Present: normal appearance, PERRL ENT exam: Present: normal exam Neck exam: Present: normal inspection, full ROM. Absent: tenderness, meningismus Respiratory exam: Present: normal lung sounds bilaterally. Absent: respiratory distress, wheezes Cardiovascular Exam: Present: regular rate, normal rhythm GI/Abdominal exam: Present: soft. Absent: distended, tenderness, guarding, rebound Extremities exam: Present: full ROM (Decreased range of motion at the left hip) Back exam: Present: paraspinal tenderness (Paraspinal tenderness, left flank ecchymosis) Neurological exam: Present: alert, oriented X3, CN II-XII intact, abnormal gait. Absent: motor sensory deficit Psychiatric exam: Present: normal affect, normal mood Skin exam: Present: warm, dry, intact. Absent: cyanosis, diaphoretic Course Vital Signs 01/20/20 17:35 Temperature 97.7 F Pulse Rate 76 Respiratory 16 Rate Blood Pressure 125/80 O2 Sat by Pulse 98 Oximetry EKG Findings - EKG Comments: EKG Findings:: EKG: Sinus rhythm with first-degree AV block, PVC no ST segment elevation rate of 78, WV interval 302, QRS duration 106, QTC 435, improved compared to previous EKG in February 2017. Medical Decision Making - Medical Decision Making 74-year-old male with increased weakness, multiple falls, difficulty ambulating at home. He's had several falls over the past 24 hours. His workup for traumatic injury in the emergency Department is essentially negative. He has a CT brain which is negative for intracranial hemorrhage or mass effect, CT cervical spine negative for subluxation or fracture. Chest x-ray negative for acute bony abdomen, no pneumonia, no pneumothorax. X-rays of the lumbar spine, hip, pelvis and left ankle are all negative for acute bony abnormality. Patient has a normal CBC, normal CMP, normal urinalysis. He has a lactic acid 4.3 which is likely secondary to dehydration. He is given IV hydration emergency department. He will be admitted, may require placement for rehabilitation, improved and improvement in strength. - Lab Data Result diagrams: 01/20/20 18:35 01/20/20 18:35 Lab Results 01/20/20 01/20/20 01/20/20 Range/Units 18:35 18:35 18:35 WBC 9.8 (3.8-10.6) k/uL RBC 4.80 (4.30-5.90) m/uL Hgb 13.6 (13.0-17.5) gm/dL Hct 41.2 (39.0-53.0) % MCV 85.7 (80.0-100.0) fL MCH 28.3 (25.0-35.0) pg MCHC 33.0 (31.0-37.0) g/dL RDW 13.2 (11.5-15.5) % Plt Count 234 (150-450) k/uL Neutrophils % 72 % Lymphocytes % 18 % Monocytes % 6 % Eosinophils % 3 % Basophils % 0 % Neutrophils # 7.0 (1.3-7.7) k/uL Lymphocytes # 1.7 (1.0-4.8) k/uL Monocytes # 0.5 (0-1.0) k/uL Eosinophils # 0.3 (0-0.7) k/uL Basophils # 0.0 (0-0.2) k/uL PT 10.2 (9.0-12.0) sec INR 1.0 (<1.2) APTT 20.7 L (22.0-30.0) sec Sodium 140 (137-145) mmol/L Potassium 4.3 (3.5-5.1) mmol/L Chloride 103 (98-107) mmol/L Carbon Dioxide 23 (22-30) mmol/L Anion Gap 14 mmol/L BUN 27 H (9-20) mg/dL Creatinine 1.14 (0.66-1.25) mg/dL Est GFR (CKD-EPI)AfAm 74 (>60 ml/min/1.73 sqM) Est GFR (CKD-EPI)NonAf 64 (>60 ml/min/1.73 sqM) Glucose 94 (74-99) mg/dL Plasma Lactic Acid Felix (0.7-2.0) mmol/L Calcium 9.4 (8.4-10.2) mg/dL Total Bilirubin 0.8 (0.2-1.3) mg/dL AST 32 (17-59) U/L ALT 30 (4-49) U/L Alkaline Phosphatase 105 (38-126) U/L Total Protein 7.6 (6.3-8.2) g/dL Albumin 4.2 (3.5-5.0) g/dL Urine Color Urine Appearance (Clear) Urine pH (5.0-8.0) Ur Specific [place] (1.001-1.035) Urine Protein (Negative) Urine Glucose (UA) (Negative) Urine Ketones (Negative) Urine Blood (Negative) Urine Nitrite (Negative) Urine Bilirubin (Negative) Urine Urobilinogen (<2.0) mg/dL Ur Leukocyte Esterase (Negative) 01/20/20 01/20/20 Range/Units 18:35 18:40 WBC (3.8-10.6) k/uL RBC (4.30-5.90) m/uL Hgb (13.0-17.5) gm/dL Hct (39.0-53.0) % MCV (80.0-100.0) fL MCH (25.0-35.0) pg MCHC (31.0-37.0) g/dL RDW (11.5-15.5) % Plt Count (150-450) k/uL Neutrophils % % Lymphocytes % % Monocytes % % Eosinophils % % Basophils % % Neutrophils # (1.3-7.7) k/uL Lymphocytes # (1.0-4.8) k/uL Monocytes # (0-1.0) k/uL Eosinophils # (0-0.7) k/uL Basophils # (0-0.2) k/uL PT (9.0-12.0) sec INR (<1.2) APTT (22.0-30.0) sec Sodium (137-145) mmol/L Potassium (3.5-5.1) mmol/L Chloride (98-107) mmol/L Carbon Dioxide (22-30) mmol/L Anion Gap mmol/L BUN (9-20) mg/dL Creatinine (0.66-1.25) mg/dL Est GFR (CKD-EPI)AfAm (>60 ml/min/1.73 sqM) Est GFR (CKD-EPI)NonAf (>60 ml/min/1.73 sqM) Glucose (74-99) mg/dL Plasma Lactic Acid Felix 4.3 H* (0.7-2.0) mmol/L Calcium (8.4-10.2) mg/dL Total Bilirubin (0.2-1.3) mg/dL AST (17-59) U/L ALT (4-49) U/L Alkaline Phosphatase (38-126) U/L Total Protein (6.3-8.2) g/dL Albumin (3.5-5.0) g/dL Urine Color Light Yellow Urine Appearance Clear (Clear) Urine pH 5.0 (5.0-8.0) Ur Specific [place] 1.011 (1.001-1.035) Urine Protein Negative (Negative) Urine Glucose (UA) Negative (Negative) Urine Ketones Negative (Negative) Urine Blood Negative (Negative) Urine Nitrite Negative (Negative) Urine Bilirubin Negative (Negative) Urine Urobilinogen <2.0 (<2.0) mg/dL Ur Leukocyte Esterase Negative (Negative) Disposition Clinical Impression: Fall, Dehydration, Lactic acidosis, Generalized weakness Disposition: ADMITTED IP TO THIS [facility] Condition: Stable Is patient prescribed a controlled substance at d/c from ED?: No Referrals: Valente Sharma MD [Primary Care Provider] - 1-2 days Decision to Admit Reason: Admit from EC Decision Date: 01/20/20 Decision Time: 20:06
[2020-01-20 18:47] LABS: Basophils % (A) 0 %; Eosinophils # (A) 0.3 k/uL (0-0.7); Eosinophils % (A) 3 %; HCT 41.2 % (39.0-53.0); HGB 13.6 gm/dL (13.0-17.5); Lymphocytes # (A) 1.7 k/uL (1.0-4.8); Lymphocytes % (A) 18 %; MCH 28.3 pg (25.0-35.0); MCV 85.7 fL (80.0-100.0); Mean Platelet Volume 6.7; Monocytes # (A) 0.5 k/uL (0-1.0); Monocytes % (A) 6 %; Neutrophils % (A) 72 %; Platelet Count 234 k/uL (150-450); RDW 13.2 % (11.5-15.5); WBC 9.8 k/uL (3.8-10.6)
[2020-01-20 18:49] LABS: Appearance,Urine Clear (Clear); Bilirubin,Urine Negative (Negative); Blood,Urine Negative (Negative); Color,Urine Light Yellow; Glucose,Urine (UA) Negative (Negative); Ketones,Urine Negative (Negative); Leukocyte Esterase,Urine Negative (Negative); Nitrite,Urine Negative (Negative); Protein,Urine Negative (Negative); Specific Gravity,Urine 1.011 (1.001-1.035); Urobilinogen,Urine <2.0 mg/dL (<2.0)
[2020-01-20 19:04] LABS: Prothrombin Time 10.2 sec (9.0-12.0)
[2020-01-20 19:05] LABS: Partial Thromboplastin Time 20.7 sec (22.0-30.0)
--- NOTE | 2020-01-20 19:07 | XR ---
EXAMINATION TYPE: XR chest 2V DATE OF EXAM: 01/20/2020 COMPARISON: Chest x-ray April 19, 2017. HISTORY: Pain after fall injury. TECHNIQUE: Frontal and lateral views of the chest are obtained. FINDINGS: Post-CABG changes with mediastinal clips and sternal wires is redemonstrated. There is low lung volumes and chronic parenchymal change without suspicious new focal air space opacity, pleural e ffusion, or pneumothorax seen. The cardiac silhouette size remains enlarged. Multilevel spurring in the lower thoracic spine is redemonstrated. IMPRESSION: Chronic changes and cardiomegaly without acute pulmonary process. No significant change from prior.
--- NOTE | 2020-01-20 19:09 | XR ---
EXAMINATION TYPE: XR ankle complete LT DATE OF EXAM: 01/20/2020 CLINICAL HISTORY: Pain after fall injury today. TECHNIQUE: Frontal, lateral and oblique images of the left ankle are obtained. COMPARISON: None. FINDINGS: Some demineralization is present. There is no acute fracture/dislocation evident in the lef t ankle. The ankle mortise appears within normal limits. Large size superior and inferior calcaneal spurs. Vascular calcification in the soft tissue. IMPRESSION: There is no acute fracture or dislocation in the left ankle.
--- NOTE | 2020-01-20 19:10 | XR ---
EXAMINATION TYPE: XR Hip LT and AP Pelvis DATE OF EXAM: 01/20/2020 COMPARISON: Abdominal x-ray March 07, 2017 HISTORY: Pelvic and left hip pain after fall injury. TECHNIQUE: A single AP view of the pelvis is obtained. Two views of the left hip are obtained. FINDINGS: Osseous structures are demineralized. There is no acute fracture/dislocation evident in th e pelvis. The sacroiliac joints appear symmetric and unremarkable. Symmetric mild axial joint space loss in both hips. Large spur superior lateral left hip acetabulum redemonstrated . Bilateral groin v ascular calcification again seen. Two views of left hip show no acute fracture or dislocation. No focal lytic or sclerotic lesion see n in the proximal left femur. Vascular calcification extends from left groin inferiorly. IMPRESSION: There is no acute fracture or dislocation in the pelvis or left hip.
[2020-01-20 19:11] LABS: Albumin 4.2 g/dL (3.5-5.0); Calcium 9.4 mg/dL (8.4-10.2); Potassium 4.3 mmol/L (3.5-5.1); Total Bilirubin 0.8 mg/dL (0.2-1.3); Total Protein 7.6 g/dL (6.3-8.2)
--- NOTE | 2020-01-20 19:11 | XR ---
EXAMINATION TYPE: XR lumbar spine 2 or 3V DATE OF EXAM: 01/20/2020 CLINICAL HISTORY: Pain after fall injury. TECHNIQUE: Frontal and lateral images of the lumbar spine are obtained. COMPARISON: None FINDINGS: Osseous structures are demineralized. There are 5 lumbar type vertebral bodies identified. The lumbar spine shows satisfactory alignment without evidence of acute fracture or dislocation. Ve rtebral body heights and disk space heights are within normal limits. Moderate multilevel anterior an d lateral spurring. Vascular calcification of the overlying abdominal aorta. IMPRESSION: No acute fracture or dislocation is seen in the lumbar spine.
[2020-01-20] MEDS ORDERED: HYDROmorphone 0.5 MG/0.5 ML SYRINGE IVP STA (19:23)
[2020-01-20] MEDS ORDERED: cefTRIAXone IN SWFI 1,000 MG/10 ML SYRINGE IVP STA (19:24)
[2020-01-20] MEDS ORDERED: SODIUM CHLORIDE 0.9% 1,000 ML IV ONE (19:24)
--- NOTE | 2020-01-20 19:28 | CT ---
EXAMINATION TYPE: CT brain tanisha hebert con DATE OF EXAM: 01/20/2020 COMPARISON: CT brain October 07, 2011 HISTORY: Fall, posterior head injury. Neck pain. CT DLP: 1474.5 mGycm. Automated Exposure Control for Dose Reduction was Utilized. TECHNIQUE: CT scan of the head and cervical spine are performed without contrast. FINDINGS: There is no acute intracranial hemorrhage or midline shift identified. Mild ventricular a nd sulcal prominence. Some low attenuation in the deep and periventricular white matter. 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 The calvarium is intact. Vascular calcification distal internal carotid arteries bilaterally. The globes are intact and the visualized sinuses are clear. Patchy soft tissue density right greater than left b ilateral external auditory canals is thought to reflect cerumen. Suboptimal study due to poor sagittal reconstructed images performed by technologist. Cervical spine is visualized in its entirety from C1 through upper thoracic levels and demonstrates straightened ali gnment without evidence of acute fracture or dislocation. Prevertebral soft tissue appears within no rmal limits. The C1-C2 articulation is within normal limits on the coronal images. Vertebral body h eights and disc space heights are maintained. Spinal canal grossly preserved. Axial images show moder ate calcified plaque bilateral carotid bulb level. Lung apices minimally imaged without pneumothorax. IMPRESSION: 1. There is no acute fracture or dislocation evident in the cervical spine. 2. No acute intracranial hemorrhage or midline shift is seen.
[2020-01-20] MEDS ORDERED: HYDROmorphone 0.5 MG/0.5 ML SYRINGE IVP PRN (20:02)
[2020-01-20] MEDS ORDERED: NALOXONE 0.4 MG/ML 1 ML VIAL IV PRN (20:02)
--- NOTE | 2020-01-20 23:06 | P.HPIM ---
History of Present Illness H&P Date: 01/20/20 Chief Complaint: frequent falls 74 year old male with history of CAD, DM, dementia Patient comes in today due to frequent falls. He reports falling at least twice over the past 48 hours no obvious reason. He denies tripping on any rugs denies any associated dizziness lightheadedness heart racing chest pain or trouble breathing. He reports that both incisions was after leaving the bathroom where he with fall down and would be unable to get up initial episode was yesterday daughter was around she helped him up however today he was home alone as his daughter was at [facility] he fell and couldn't get up he denies any loss of consciousness associated with these falls. Reports head injury this time as he bumped his head against the wall and then he couldn't get up he was otherwise asymptomatic he denies any focal neuro deficits. She remained on the floor leaning against the wall until his daughter arrived and helped him up and she brought him to the hospital to get evaluated. Patient denies any changes in his medical status he denies any changes in his medications he admits to decreased by mouth intake otherwise denies any chest pain or trouble breathing denies any abdominal pain nausea vomiting or diarrhea denies any GI bleeding denies any upper respiratory symptoms denies any fevers or chills Initial workup in the ED showed no evidence of fractures, CT of the brain showed no acute process. Blood work suggested some dehydration and elevated lactic a gordon patient admitted for IV fluid hydration and evaluation by PT Review of Systems Pertinent positives as noted in HPI. All other systems were reviewed and are negative Past Medical History Past Medical History: Dementia, Diabetes Mellitus, Hyperlipidemia, Hypertension, Memory Impairment, Vascular Disorder Additional Past Medical History / Comment(s): neuropathy History of Any Multi-Drug Resistant Organisms: None Reported Past Surgical History: Coronary Bypass/CABG, Orthopedic Surgery Additional Past Surgical History / Comment(s): Left foot surgery, 5 vessel CABG 2014, recent aortogram Past Anesthesia/Blood Transfusion Reactions: No Reported Reaction Past Psychological History: Anxiety, Depression Smoking Status: Never smoker - Past Family History Father Family Medical History: Congestive Heart Failure (CHF) Mother Family Medical History: Congestive Heart Failure (CHF) Medications and Allergies Home Medications Medication Instructions Recorded Confirmed Type Omeprazole [PriLOSEC] 20 mg PO JEAN-PIERRE-BRKFST 02/23/15 01/20/20 History Donepezil [Aricept] 10 mg PO HS #30 03/13/15 01/20/20 Rx amLODIPine BESYLATE [Norvasc] 10 mg PO HS 05/11/15 01/20/20 History Insulin Glargine [Lantus] 56 unit SQ W/SUPPER 10/03/16 01/20/20 History Amitriptyline HCl [Elavil] 50 mg PO HS 03/07/17 01/20/20 History Aspirin EC [Ecotrin Low Dose] 81 mg PO QAM 03/07/17 01/20/20 History Cholecalciferol [Vitamin D3 (25 2,000 unit PO QAM 03/07/17 01/20/20 History Mcg = 1000 Iu)] Gabapentin [Neurontin] 300 mg PO BID 03/07/17 01/20/20 History Lisinopril [Zestril] 2.5 mg PO [facility] 03/07/17 01/20/20 History Metoprolol Succinate (ER) [Toprol 50 mg PO HS 03/07/17 01/20/20 History XL] Potassium Citrate [Potassium 10 meq PO W/SUPPER 03/07/17 01/20/20 History Citrate ER] Tamsulosin HCl [Flomax] 0.4 mg PO W/SUPPER 03/07/17 01/20/20 History Furosemide [Lasix] 40 mg PO DAILY 11/08/19 01/20/20 History Insulin Aspart [NovoLOG Flexpen] See Protocol SQ AC-TID 11/08/19 01/20/20 History Semaglutide [Ozempic] 1 mg SQ SA 11/08/19 01/20/20 History metFORMIN HCL [Glucophage] 1,000 mg PO BID 01/01/20 01/20/20 History Atorvastatin [Lipitor] 40 mg PO HS 01/20/20 01/20/20 History Allergies Allergy/AdvReac Type Severity Reaction Status Date / Time No Known Allergies Allergy Verified 01/20/20 18:28 Physical Exam Vitals: Vital Signs Temp Pulse Resp BP Pulse Ox 01/20/20 17:35 97.7 F 76 16 125/80 98 Intake and Output 01/20/20 01/20/20 01/20/20 06:59 14:59 22:59 Other: Weight 106.594 kg Constitutional: No acute distress, conversant, pleasant Eyes: Anicteric sclerae, moist conjunctiva, no lid-lag Pupils equal round reactive to light ENMT: NC/AT Oropharynx clear, no erythema, exudates Neck: Supple, FROM, no masses, or JVD No carotid bruits No thyromegaly Lungs: Clear to auscultation Clear to percussion Normal respiratory effort, no accessory muscle use Cardiovascular: Heart regular in rate and rhythm, systolic murmurs, no gallops, or rubs No peripheral edema Abdominal: Soft Nontender, no guarding, rebound or rigidity Abdomen moving with respiration Normoactive bowel sounds No hepatomegaly, No splenomegaly No palpable mass No abdominal wall hernia noted Skin: Normal temperature, tone, texture, turgor No induration No subcutaneous nodules No rash, lesions No ulcers Extremities: No digital cyanosis No clubbing Pedal pulses intact and symmetrical Radial pulses intact and symmetrical No calf tenderness Psychiatric: Alert and oriented to person, place and time Appropriate affect fair judgement Neuro Muscles Strength 5/5 in all 4 extremities Sensation to light touch grossly present throughout Cranial nerves II-XII grossly intact No focal sensory deficits Lymphatics: no palpable cervical or supraclavicular , or inguinal lymph nodes Results CBC & Chem 7: 01/20/20 18:35 01/20/20 18:35 Labs: Abnormal Lab Results - Last 24 Hours (Table) 01/20/20 01/20/20 01/20/20 Range/Units 18:35 18:35 18:35 APTT 20.7 L (22.0-30.0) sec BUN 27 H (9-20) mg/dL Plasma Lactic Acid Felix 4.3 H* (0.7-2.0) mmol/L Assessment and Plan Assessment: 74 year old male with history of CAD, DM, presented due to frequent falls at home over hte past 48 hours. initial workup in the ED negative for any fractures or brain in jury, blood work suggested dehydration and lactic acidosis admitted for IVF hydration , close monitoring and PT eval. anticipated length of stay < 2 midnights Plan: frequent falling dehydration lactic acidosis DM hypertension CAD dementia plan IVF hydration fall precautions PT eval resume home meds hold diuretics encourage PO intake pain control check echocardiogram , significant systolic murmur , r/o aortic valve stenosis CODE STATUS:full code DVT prophylaxis: heparin sc tid Discussed with: Patient, ER, RN Anticipated length of stay < than [address]: home with home care, patient has his daughter living with him taking care of him 13/06 A total of 60 minutes was spent on the care of this complex patient more than 50% of the time was spent in counseling and care coordination.
[2020-01-21 00:45] LABS: Glucose,Whole Blood 67 mg/dL (75-99)
[2020-01-21] MEDS: ATORVASTATIN 80 MG TAB PO SCH ×2 (00:46→20:51)
[2020-01-21] MEDS: SODIUM CHLORIDE 0.9% 1,000 ML IV SCH ×3 (00:46→17:23)
[2020-01-21] MEDS: METOPROLOL SUCCINATE (ER) 50 MG TAB.ER.24H PO SCH ×2 (00:47→20:51)
[2020-01-21] MEDS: amLODIPine 10 MG TAB PO SCH ×2 (00:47→20:52)
[2020-01-21] MEDS: GABAPENTIN 300 MG CAP PO SCH ×3 (00:48→20:51)
[2020-01-21] MEDS: TAMSULOSIN 0.4 MG CAP.ER.24H PO SCH ×2 (00:48→17:27)
[2020-01-21] MEDS: HEPARIN SODIUM,PORCINE 5,000 UNIT/ML 1 ML VIAL SQ SCH ×2 (01:12→08:28)
[2020-01-21] MEDS: DONEPEZIL 10 MG TAB PO SCH ×2 (01:12→20:51)
[2020-01-21 02:17] LABS: Glucose,Whole Blood 141 mg/dL (75-99)
[2020-01-21 07:04] LABS: Glucose,Whole Blood 153 mg/dL (75-99)
[2020-01-21 08:12] LABS: Basophils % (A) 1 %; Eosinophils # (A) 0.2 k/uL (0-0.7); Eosinophils % (A) 3 %; HCT 35.9 % (39.0-53.0); HGB 11.7 gm/dL (13.0-17.5); Lymphocytes # (A) 1.7 k/uL (1.0-4.8); Lymphocytes % (A) 26 %; MCH 28.2 pg (25.0-35.0); MCHC 32.5 g/dL (31.0-37.0); Mean Platelet Volume 6.9; Monocytes # (A) 0.5 k/uL (0-1.0); Monocytes % (A) 7 %; Neutrophils # (A) 3.9 k/uL (1.3-7.7); Neutrophils % (A) 60 %; Platelet Count 207 k/uL (150-450); RBC 4.13 m/uL (4.30-5.90); RDW 13.3 % (11.5-15.5); WBC 6.5 k/uL (3.8-10.6)
[2020-01-21] MEDS: INSULIN ASPART (NovoLOG) 100 UNIT/ML VIAL SQ SCH ×4 (08:27→20:52)
[2020-01-21] MEDS: PANTOPRAZOLE 40 MG TABLET PO SCH (08:28)
[2020-01-21] MEDS: LISINOPRIL 2.5 MG TAB PO SCH (08:28)
[2020-01-21] MEDS: ASPIRIN 81 MG PO SCH (08:28)
[2020-01-21 08:36] LABS: Calcium 8.3 mg/dL (8.4-10.2); Potassium 4.4 mmol/L (3.5-5.1)
--- NOTE | 2020-01-21 09:15 | P.PN ---
Subjective Progress Note Date: 01/21/20 Principal diagnosis: Weakness and fall Doing well, no overnight issues. States he has dog and not sure wether the floor was clear when he tripped and fell yesterday. States he usually keep himself hydrated. Objective - Vital Signs Vital signs: Vital Signs Temp 97.8 F 01/21/20 05:02 Pulse 76 01/21/20 05:02 Resp 18 01/21/20 05:02 BP 109/66 01/21/20 05:02 Pulse Ox 96 01/21/20 05:02 Intake & Output 01/20/20 01/21/20 01/21/20 18:59 06:59 18:59 Intake Total 220 Output Total 275 Balance -275 220 Weight 106.594 kg 106.594 kg Intake: Oral 220 Output: Urine 275 Other: Voiding Method Urinal Urinal - Exam Constitutional: No acute distress, conversant, pleasant Eyes:Anicteric sclerae, moist conjunctiva, no lid-lag, PERRLA, ENMT: Oropharynx clear, no erythema, exudates Neck: Supple, FROM, no masses, or JVD, No carotid bruits, No thyromegaly Lungs: Clear to auscultation, Clear to percussion, Normal respiratory effort, no accessory muscle use Cardiovascular: Heart regular in rate and rhythm, No murmurs, gallops, or rubs, No peripheral edema Abdominal: Soft, Nontender, no guarding, rebound or rigidity, Normoactive bowel sounds, No hepatomegaly, No splenomegaly, No palpable mass Skin: Normal temperature, tone, texture, turgor, no induration, No subcutaneous nodules, No rash, lesions, No ulcers Extremities: No digital cyanosis, No clubbing, Pedal pulses intact and symmetrical, Radial pulses intact and symmetrical, No calf tenderness Psychiatric: Alert and oriented to person, place and time, appropriate affect, intact judgement Neuro: Muscles Strength 5/5 in all 4 extremities, Sensation to light touch grossly present throughout, Cranial nerves II-XII grossly intact, no focal sensory deficits - Labs CBC & Chem 7: 01/21/20 07:36 01/21/20 07:36 Labs: Abnormal Lab Results - Last 24 Hours (Table) 01/20/20 01/20/20 01/20/20 Range/Units 18:35 18:35 18:35 RBC (4.30-5.90) m/uL Hgb (13.0-17.5) gm/dL Hct (39.0-53.0) % APTT 20.7 L (22.0-30.0) sec BUN 27 H (9-20) mg/dL Glucose (74-99) mg/dL POC Glucose (mg/dL) (75-99) mg/dL Plasma Lactic Acid Felix 4.3 H* (0.7-2.0) mmol/L Calcium (8.4-10.2) mg/dL 01/20/20 01/21/20 01/21/20 Range/Units 22:54 00:42 02:11 RBC (4.30-5.90) m/uL Hgb (13.0-17.5) gm/dL Hct (39.0-53.0) % APTT (22.0-30.0) sec BUN (9-20) mg/dL Glucose (74-99) mg/dL POC Glucose (mg/dL) 67 L 141 H (75-99) mg/dL Plasma Lactic Acid Felix 3.8 H* (0.7-2.0) mmol/L Calcium (8.4-10.2) mg/dL 01/21/20 01/21/20 01/21/20 Range/Units 03:21 07:02 07:36 RBC 4.13 L (4.30-5.90) m/uL Hgb 11.7 L (13.0-17.5) gm/dL Hct 35.9 L (39.0-53.0) % APTT (22.0-30.0) sec BUN (9-20) mg/dL Glucose (74-99) mg/dL POC Glucose (mg/dL) 153 H (75-99) mg/dL Plasma Lactic Acid Felix 2.9 H* (0.7-2.0) mmol/L Calcium (8.4-10.2) mg/dL 01/21/20 01/21/20 Range/Units 07:36 07:36 RBC (4.30-5.90) m/uL Hgb (13.0-17.5) gm/dL Hct (39.0-53.0) % APTT (22.0-30.0) sec BUN 32 H (9-20) mg/dL Glucose 184 H (74-99) mg/dL POC Glucose (mg/dL) (75-99) mg/dL Plasma Lactic Acid Felix 2.6 H* (0.7-2.0) mmol/L Calcium 8.3 L (8.4-10.2) mg/dL Assessment and Plan Plan: Lactic acidosis Falling Dehydration DM Hypertension CAD Dementia plan Continue IVF hydration Fall precautions PT eval Resume home meds but hold diuretics Encouraged to keep himself hydrated Echocardiogram done result pending Anticipated discharge place: home with home care, tomorrow
--- NOTE | 2020-01-21 12:01 | ECHOF ---
Referral Reason:? aortic valve stenosis MEASUREMENTS -------- HEIGHT: 175.3 cm WEIGHT: 106.1 kg BP: 109/66 RVIDd: 4.1 cm (< 3.3) IVSd: 1.7 cm (0.6 - 1.1) LVIDd: 3.9 cm (3.9 - 5.3) LVPWd: 1.7 cm (0.6 - 1.1) IVSs: 2.2 cm LVIDs: 2.4 cm LVPWs: 1.9 cm LA Diam: 4.1 cm (2.7 - 3.8) Ao Diam: 2.9 cm (2.0 - 3.7) AV Cusp: 1.2 cm (1.5 - 2.6) AV maxP.26 mmHg AV meanP.15 mmHg RAP: 5.00 mmHg RVSP: 29.17 mmHg FINDINGS -------- Sinus rhythm. This was a technically difficult study with suboptimal views. History of open heart surgery The left ventricular size is normal. There is severe concentric left ventricular hypertrophy. Ove rall left ventricular systolic function is low-normal with, an EF between 50 - 55 %. Septal wall mo tion is delayed and consistent with prior cardiac surgery. The right ventricle is moderately enlarged. The left atrium is mildly dilated. The right atrium was not well visualized. xx ml of Lumason was utilized for enhancement of images. Interatrial and interventricular septum intact. Peak/mean gradient across the Aortic Valve is 64.26mmHg / 40.15mmHg. There is moderate-severe steno sis of the bioprosthetic aortic valve. Tissue Aortic Valve The mitral valve was not well visualized. Mild mitral regurgitation is present. The tricuspid valve was not well visualized. Mild tricuspid regurgitation present. There is no ev idence of pulmonary hypertension. The right ventricular systolic pressure, as measured by Doppler, is 29.17mmHg. There is no pulmonic regurgitation present. The aortic root size is normal. IVC Not well visulized. There is no pericardial effusion. CONCLUSIONS -------- 1. Sinus rhythm. 2. This was a technically difficult study with suboptimal views. 3. History of open heart surgery 4. The left ventricular size is normal. 5. There is severe concentric left ventricular hypertrophy. 6. Overall left ventricular systolic function is low-normal with, an EF between 50 - 55 %. 7. Septal wall motion is delayed and consistent with prior cardiac surgery. 8. The right ventricle is moderately enlarged. 9. The left atrium is mildly dilated. 10. The right atrium was not well visualized. 11. xx ml of Lumason was utilized for enhancement of images. 12. Interatrial and interventricular septum intact. 13. Peak/mean gradient across the Aortic Valve is 64.26mmHg / 40.15mmHg. 14. 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 15. Tissue Aortic Valve 16. The mitral valve was not well visualized. 17. Mild mitral regurgitation is present. 18. The tricuspid valve was not well visualized. 19. Mild tricuspid regurgitation present. 20. There is no evidence of pulmonary hypertension. 21. There is no pulmonic regurgitation present. 22. The aortic root size is normal. 23. IVC Not well visulized. 24. There is no pericardial effusion. FISCAL AGENT: Alyssa Herndon RDCS
[2020-01-21 12:16] LABS: Glucose,Whole Blood 142 mg/dL (75-99)
[2020-01-21] MEDS: CLOPIDOGREL 75 MG TAB PO SCH (12:46)
[2020-01-21] MEDS: ACETAMINOPHEN TAB 325 MG TAB PO PRN (17:24)
[2020-01-21 17:32] LABS: Glucose,Whole Blood 224 mg/dL (75-99)
[2020-01-21 20:22] LABS: Glucose,Whole Blood 261 mg/dL (75-99)
[2020-01-21] MEDS: AMITRIPTYLINE HCL 50 MG TAB PO SCH (20:52)
[2020-01-22] MEDS: SODIUM CHLORIDE 0.9% 1,000 ML IV SCH ×2 (05:36→12:27)
[2020-01-22 06:54] LABS: Glucose,Whole Blood 217 mg/dL (75-99)
[2020-01-22] MEDS: PANTOPRAZOLE 40 MG TABLET PO SCH (08:04)
[2020-01-22] MEDS: CLOPIDOGREL 75 MG TAB PO SCH (08:04)
[2020-01-22] MEDS: INSULIN ASPART (NovoLOG) 100 UNIT/ML VIAL SQ SCH ×4 (08:04→20:42)
[2020-01-22] MEDS: GABAPENTIN 300 MG CAP PO SCH ×2 (08:04→20:42)
[2020-01-22] MEDS: ASPIRIN 81 MG PO SCH (08:04)
[2020-01-22] MEDS: LISINOPRIL 2.5 MG TAB PO SCH (08:05)
[2020-01-22 12:02] LABS: Glucose,Whole Blood 226 mg/dL (75-99)
--- NOTE | 2020-01-22 16:48 | P.PN ---
Progress Note - Text Progress Note Date: 01/22/20 Presenting complaint: Fell down History of presenting complaint: 74-year-old patient of Dr. Valente Sharma. Dementia presented with increasing falls difficulty ambulating. He has dementia. Fracture was ruled out. Admitted with recurrent falls, dehydration, lactic acidosis Today-feeling better. Daughter the bedside. Also visiting friend. Appetite is better. Seen by physical therapy. Review of systems: Was done for constitutional, cardiovascular, GI, pulmonary. relevant finding as above Active Medications Acetaminophen (Tylenol Tab) 650 mg PO Q6HR PRN PRN Reason: Mild Pain or Fever > 100.5 Last Admin: 01/21/20 17:24 Dose: 650 mg Documented by: Amitriptyline HCl (Elavil) 50 mg PO [facility] Last Admin: 01/21/20 20:52 Dose: 50 mg Documented by: Amlodipine Besylate (Norvasc) 10 mg PO [facility] Last Admin: 01/21/20 20:52 Dose: 10 mg Documented by: Aspirin (Aspirin) [address] [facility] Last Admin: 01/22/20 08:04 Dose: 81 mg Documented by: Atorvastatin Calcium (Lipitor) 40 mg PO [facility] Last Admin: 01/21/20 20:51 Dose: 40 mg Documented by: Clopidogrel Bisulfate (Plavix) 75 mg PO DAILY [facility] Last Admin: 01/22/20 08:04 Dose: 75 mg Documented by: Donepezil HCl (Aricept) 10 mg PO [facility] Last Admin: 01/21/20 20:51 Dose: 10 mg Documented by: Gabapentin (Neurontin) 300 mg PO BID [facility] Last Admin: 01/22/20 08:04 Dose: 300 mg Documented by: Hydromorphone HCl (Dilaudid) 0.5 mg IVP Q3HR PRN PRN Reason: Moderate Pain Last Admin: 01/21/20 05:06 Dose: 0.5 mg Documented by: Sodium Chloride (Saline 0.9%) 1,000 mls @ 100 mls/hr IV .Q10H [facility] Last Admin: 01/22/20 12:27 Dose: Not Given Documented by: Insulin Aspart (Novolog) 0 unit SQ [facility]; Protocol Last Admin: 01/22/20 12:31 Dose: 5 unit Documented by: Insulin Detemir (Levemir) 56 unit SQ W/SUPPER [facility] Lisinopril (Zestril) 2.5 mg PO QAM [facility] Last Admin: 01/22/20 08:05 Dose: 2.5 mg Documented by: Metoprolol Succinate (Toprol Xl) 50 mg PO HS [facility] Last Admin: 01/21/20 20:51 Dose: 50 mg Documented by: Naloxone HCl (Narcan) 0.2 mg IV Q2M PRN PRN Reason: Opioid Reversal Pantoprazole Sodium (Protonix) 40 mg PO AC-BRKFST [facility] Last Admin: 01/22/20 08:04 Dose: 40 mg Documented by: Tamsulosin HCl (Flomax) 0.4 mg PO W/SUPPER [facility] Last Admin: 01/21/20 17:27 Dose: 0.4 mg Documented by: On examination: VITAL SIGNS: 97.8, 64, 16, 144/78, 98% room air GENERAL APPEARANCE: Sitting up in a chair, awake tired. HEENT: Normal external appearance of nose and ear. Oral cavity normal EYES: Pupils equal. Conjunctiva normal. NECK: JVD not raised. Mass not palpable. RESPIRATORY: Respiratory effort normal. Lungs clear to auscultation. CARDIOVASCULAR: First and second sounds normal. No edema. ABDOMEN: Soft. Liver and spleen not palpable. No tenderness. No mass palpable. PSYCHIATRY: Able to answer simple questions, forgetful INVESTIGATIONS, reviewed in the clinical context: White count 6.5 hemoglobin 11.7 platelets 207 potassium 4.4 creatinine 1.16 EKG-PVC, nonspecific findings 2-D echo-severe concentric LVH, EF 50-45%, moderate-severe stenosis of bioprosthetic aortic valve Head cervical spine CT, lumbar spine x-ray, hip pelvics x-ray, ankle x-ray-no evidence of fracture Chest x-ray film personally reviewed by me-cardiomegaly Assessment: -Recurrent falls, and a patient's os 2-D echo shows [id number] stenosis of bioprosthetic aortic valve-could be responsible for the presentation. Patient will need a possible MARGARITA and further evaluation by cardiology -Obesity BMI 34.7 -Diabetes mellitus type 2 chronically on insulin -Peripheral neuropathy -BPH -Essential hypertension -Hyperlipidemia -Coronary artery disease with a history of bypass -Anxiety depression not otherwise specified -Peripheral arterial disease Plan: Patient is scheduled to go to the [facility]. We'll consult cardiology with review to MARGARITA and further evaluation of the possible symptomatic aortic valve. We'll also put the patient on telemetry. Other medications to continue. Accu-Cheks to be followed. Discussed the care with the patient his daughter and the friend of the bedside.
[2020-01-22 17:11] LABS: Glucose,Whole Blood 272 mg/dL (75-99)
[2020-01-22] MEDS: ENOXAPARIN 40 MG/0.4 ML SYRINGE SQ SCH (17:27)
[2020-01-22] MEDS ORDERED: INSULIN DETEMIR (LEVEMIR) 100 UNIT/ML SYR SQ SCH (17:30)
[2020-01-22] MEDS: TAMSULOSIN 0.4 MG CAP.ER.24H PO SCH (18:18)
[2020-01-22 20:22] LABS: Glucose,Whole Blood 291 mg/dL (75-99)
[2020-01-22] MEDS: ATORVASTATIN 80 MG TAB PO SCH (20:41)
[2020-01-22] MEDS: AMITRIPTYLINE HCL 50 MG TAB PO SCH (20:42)
[2020-01-22] MEDS: amLODIPine 10 MG TAB PO SCH (20:42)
[2020-01-22] MEDS: DONEPEZIL 10 MG TAB PO SCH (20:42)
[2020-01-22] MEDS: METOPROLOL SUCCINATE (ER) 50 MG TAB.ER.24H PO SCH (20:42)
[2020-01-22] MEDS: ACETAMINOPHEN TAB 325 MG TAB PO PRN (20:45)
[2020-01-23 06:54] LABS: Glucose,Whole Blood 176 mg/dL (75-99)
[2020-01-23] MEDS: INSULIN ASPART (NovoLOG) 100 UNIT/ML VIAL SQ SCH ×2 (08:15→12:35)
[2020-01-23] MEDS: GABAPENTIN 300 MG CAP PO SCH (08:16)
[2020-01-23] MEDS: CLOPIDOGREL 75 MG TAB PO SCH (08:16)
[2020-01-23] MEDS: ASPIRIN 81 MG PO SCH (08:16)
[2020-01-23] MEDS: PANTOPRAZOLE 40 MG TABLET PO SCH (08:16)
[2020-01-23] MEDS: LISINOPRIL 2.5 MG TAB PO SCH (08:16)
[2020-01-23] MEDS: ENOXAPARIN 40 MG/0.4 ML SYRINGE SQ SCH ×2 (08:16→09:19)
[2020-01-23] MEDS: ACETAMINOPHEN TAB 325 MG TAB PO PRN (11:25)
[2020-01-23 11:29] LABS: Glucose,Whole Blood 322 mg/dL (75-99)
--- NOTE | 2020-01-23 11:42 | P.DS ---
Providers Date of admission: 01/20/20 20:02 Expected date of discharge: 01/23/20 Attending physician: Margarito Tucker Consults: 01/22/20 16:48 Consult Physician Routine Consulting Provider: Fernando Hodges Consult Reason/Comments: Possible Symptomatic -for MARGARITA Do you want consulting provider notified?: Yes Primary care physician: Valente Sharma [facility] Course: Presenting complaint: Fell down History of presenting complaint: 74-year-old patient of Dr. Valente Sharma. Dementia presented with increasing falls difficulty ambulating. He has dementia. Fracture was ruled out. Admitted with recurrent falls, dehydration, lactic acidosis Today-discussed with Dr. Juliann Schafer from cardiology. He did review patient's previous echoes. Did not feel that aortic stenosis is contributing to patient's syncopal episodes.. Patient otherwise is doing fine. keen to go to rehab. Patient does follow Dr. Hodges Discussion and discharge planning more than 35 minutes Consultation: Dr. Juliann Schafer from cardiology On examination: VITAL SIGNS: 97.7, 70, 20, 136/76, 98% on room air GENERAL APPEARANCE: Sitting up in a chair, comfortable. HEENT: Normal external appearance of nose and ear. Oral cavity normal EYES: Pupils equal. Conjunctiva normal. NECK: JVD not raised. Mass not palpable. RESPIRATORY: Respiratory effort normal. Lungs clear to auscultation. CARDIOVASCULAR: First and second sounds normal. No edema. ABDOMEN: Soft. Liver and spleen not palpable. No tenderness. No mass palpable. 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 -[id number] stenosis of bioprosthetic aortic valve -Obesity BMI 34.7 -Diabetes mellitus type 2 chronically on insulin -Peripheral neuropathy -BPH -Essential hypertension -Hyperlipidemia -Coronary artery disease with a history of bypass -Anxiety depression not otherwise specified -Peripheral arterial disease [facility] Patient Condition at Discharge: Stable Plan - Discharge Summary Discharge Rx Participant: No New Discharge Prescriptions: Continue Omeprazole [PriLOSEC] 20 mg PO AC-BRKFST Donepezil [Aricept] 10 mg PO HS #30 amLODIPine BESYLATE [Norvasc] 10 mg PO HS Insulin Glargine [Lantus] 56 unit SQ W/SUPPER Amitriptyline HCl [Elavil] 50 mg PO HS Aspirin EC [Ecotrin Low Dose] 81 mg PO QAM Cholecalciferol [Vitamin D3 (25 Mcg = 1000 Iu)] 2,000 unit PO QAM Lisinopril [Zestril] 2.5 mg PO QAM Metoprolol Succinate (ER) [Toprol XL] 50 mg PO HS Potassium Citrate [Potassium Citrate ER] 10 meq PO W/SUPPER Tamsulosin HCl [Flomax] 0.4 mg PO W/SUPPER Furosemide [Lasix] 40 mg PO DAILY Semaglutide [Ozempic] 1 mg SQ TU Insulin Aspart [NovoLOG Flexpen] See Protocol SQ AC-TID metFORMIN HCL [Glucophage] 1,000 mg PO BID Atorvastatin [Lipitor] 40 mg PO HS Clopidogrel [Plavix] 75 mg PO DAILY Gabapentin [Neurontin] 300 mg PO BID #6 cap Discharge Medication List Omeprazole [PriLOSEC] 20 mg PO AC-BRKFST 02/23/15 [History] Donepezil [Aricept] 10 mg PO HS #30 03/13/15 [Rx] amLODIPine BESYLATE [Norvasc] 10 mg PO HS 05/11/15 [History] Insulin Glargine [Lantus] 56 unit SQ W/SUPPER 10/03/16 [History] Amitriptyline HCl [Elavil] 50 mg PO HS 03/07/17 [History] Aspirin EC [Ecotrin Low Dose] 81 mg PO QAM 03/07/17 [History] Cholecalciferol [Vitamin D3 (25 Mcg = 1000 Iu)] 2,000 unit PO QAM 03/07/17 [History] Lisinopril [Zestril] 2.5 mg PO QAM 03/07/17 [History] Metoprolol Succinate (ER) [Toprol XL] 50 mg PO HS 03/07/17 [History] Potassium Citrate [Potassium Citrate ER] 10 meq PO W/SUPPER 03/07/17 [History] Tamsulosin HCl [Flomax] 0.4 mg PO W/SUPPER 03/07/17 [History] Furosemide [Lasix] 40 mg PO DAILY 11/08/19 [History] Insulin Aspart [NovoLOG Flexpen] See Protocol SQ AC-TID 11/08/19 [History] Semaglutide [Ozempic] 1 mg SQ TU 11/08/19 [History] metFORMIN HCL [Glucophage] 1,000 mg PO BID 01/01/20 [History] Atorvastatin [Lipitor] 40 mg PO HS 01/20/20 [History] Clopidogrel [Plavix] 75 mg PO DAILY 01/21/20 [History] Gabapentin [Neurontin] 300 mg PO BID #6 cap 01/23/20 [Rx] Follow up Appointment(s)/Referral(s): Rodney Elam MD [STAFF PHYSICIAN] - 1-2 Days Valente Sharma MD [Primary Care Provider] - As Needed
[2020-01-23 12:13] VITALS: BP 131/71; PULSE 69; RESP 18; TEMP 97.2
[2020-01-23] MEDS ORDERED: INSULIN ASPART (NovoLOG) 100 UNIT/ML VIAL SQ ONE (12:29)
--- NOTE | 2020-01-23 13:56 | P.CRDCN ---
History of Present Illness History of present illness: HISTORY OF PRESENTING ILLNESS This is a pleasant 74-year-old male past medical history significant for coronary artery disease status post four-vessel bypass grafting 2014, aortic stenosis, ischemic cardio myopathy, diabetes mellitus, hypertension, dyslipidemia and peripheral vascular disease. He follows in the office with Dr. Sigala. We have been asked to see in consultation for aortic stenosis. He was admitted to the hospital after suffering multiple falls in one day that were unprovoked. He denies loss of consciousness, dizziness or feeling light headed. He states that he just gets weak and falls. Then he could not get himself up. He laid on the floor waiting for help for over 4-6 hours. He has been diagnosed with dehydration and lactic acidosis. Echocardiogram obtained revealed preserved LV systolic function with EF 50-55% mean gradient across the valve of 40 mmHg, mild TR and septal wall motion delay typical of cardiac surgery. He had an echo in the office recently of similar findings with gradient somewhat higher at 47 mmHg. He denies chest pain, shortness of breath, dizziness or palpitations. DIAGNOSTICS EKG reveals sinus mechanism with fist degree AV block, PVC's and non-specific ST abnormalities in the high lateral and inferior leads. Chest xray reveals chronic changes and cardiomegaly without acute cardiopulmonary process. Laboratory reviewed, WBC 6.5, hgb 11.7, plt 207, sodium 138, potassium 4.4, creatinine 1.16, lactic acids levels 4.3, 3.8, 2.9, 2.6 and 1.5. Current cardiac medications include Plavix 75 mg daily, amlodipine 10 mg at bedtime, Toprol 50 mg at bedtime, lisinopril 2.5 mg in the morning, Lasix 40 mg daily, atorvastatin 40 mg daily and aspirin 81 mg daily. REVIEW OF SYSTEMS At the time of my exam: CONSTITUTIONAL: Denies fever or chills. CARDIOVASCULAR: Denies chest pain, shortness of breath, orthopnea, PND or palpi tations. RESPIRATORY: Denies cough. GASTROINTESTINAL: Denies abdominal pain, diarrhea, constipation, nausea or vomiting. MUSCULOSKELETAL: Denies myalgias. NEUROLOGIC: Denies numbness, tingling or weakness. ENDOCRINE: Denies fatigue, weight change, polydipsia or polyurina. GENITOURINARY: Denies burning, hematuria or urgency with micturation. HEMATOLOGIC: Denies history of anemia or bleeding. PHYSICAL EXAMINATION Blood pressure 131/71 heart rate 69 afebrile and maintaining oxygen saturation on room air. CONSTITUTIONAL: No apparent distress. HEENT: Head is normocephalic. Pupils are equal, round. Sclerae anicteric. Mucous membranes of the mouth are moist. No JVD. No carotid bruit. CHEST EXAMINATION: Lungs are clear to auscultation. No chest wall tenderness is noted on palpation or with deep breathing. HEART EXAMINATION: Regular rate and rhythm. S1, S2 heard. Systolic ejection murmur at the base, no gallops or rub. ABDOMEN: Soft, nontender. Positive bowel sounds. EXTREMITIES: 2+ peripheral pulses, no lower extremity edema and no calf tenderness. NEUROLOGIC EXAMINATION: Patient is awake, alert and oriented x3. ASSESSMENT Frequent falls Lactic acidosis Dehydration Aortic stenosis Coronary artery disease s/p 4V bypass grafting Peripheral vascular disease Diabetes mellitus Hypertension Dyslipidemia History of ischemic cardiomyopathy, improved PLAN Stable from a cardiac perspective. Aortic stenosis is chronic and stable. He is asymptomatic from a valvular heart disease standpoint. No reason for MARGARITA acutely at this time. Follow up with Dr. Sigala in 2 weeks. Nurse Practitioner note has been reviewed, I agree with a documented findings and plan of care. Patient was seen and examined. Past Medical History Past Medical History: Dementia, Diabetes Mellitus, Hyperlipidemia, Hypertension, Memory Impairment, Vascular Disorder Additional Past Medical History / Comment(s): neuropathy History of Any Multi-Drug Resistant Organisms: None Reported Past Surgical History: Coronary Bypass/CABG, Orthopedic Surgery Additional Past Surgical History / Comment(s): Left foot surgery, 5 vessel CABG 2014, recent aortogram Past Anesthesia/Blood Transfusion Reactions: No Reported Reaction Past Psychological History: Anxiety, Depression Smoking Status: Never smoker - Past Family History Father Family Medical History: Congestive Heart Failure (CHF) Mother Family Medical History: Congestive Heart Failure (CHF) Medications and Allergies Home Medications Medication Instructions Recorded Confirmed Type Omeprazole [PriLOSEC] 20 mg PO AC-BRKFST 02/23/15 01/20/20 History Donepezil [Aricept] 10 mg PO HS #30 03/13/15 01/20/20 Rx amLODIPine BESYLATE [Norvasc] 10 mg PO HS 05/11/15 01/20/20 History Insulin Glargine [Lantus] 56 unit SQ W/SUPPER 10/03/16 01/20/20 History Amitriptyline HCl [Elavil] 50 mg PO HS 03/07/17 01/20/20 History Aspirin EC [Ecotrin Low Dose] 81 mg PO QAM 03/07/17 01/20/20 History Cholecalciferol [Vitamin D3 (25 2,000 unit PO QAM 03/07/17 01/20/20 History Mcg = 1000 Iu)] Lisinopril [Zestril] 2.5 mg PO QAM 03/07/17 01/20/20 History Metoprolol Succinate (ER) [Toprol 50 mg PO HS 03/07/17 01/20/20 History XL] Potassium Citrate [Potassium 10 meq PO W/SUPPER 03/07/17 01/20/20 History Citrate ER] Tamsulosin HCl [Flomax] 0.4 mg PO W/SUPPER 03/07/17 01/20/20 History Furosemide [Lasix] 40 mg PO DAILY 11/08/19 01/20/20 History Insulin Aspart [NovoLOG Flexpen] See Protocol SQ AC-TID 11/08/19 01/20/20 History Semaglutide [Ozempic] 1 mg SQ TU 11/08/19 01/21/20 History metFORMIN HCL [Glucophage] 1,000 mg PO BID 01/01/20 01/20/20 History Atorvastatin [Lipitor] 40 mg PO HS 01/20/20 01/20/20 History Clopidogrel [Plavix] 75 mg PO DAILY 01/21/20 01/21/20 History Gabapentin [Neurontin] 300 mg PO BID #6 cap 01/23/20 Rx Allergies Allergy/AdvReac Type Severity Reaction Status Date / Time No Known Allergies Allergy Verified 01/20/20 18:28 Physical Exam Vitals: Vital Signs Temp Pulse Resp BP Pulse Ox 01/23/20 12:12 97.2 F L 69 18 131/71 99 01/23/20 08:09 97.7 F 70 25 H 136/76 98 01/23/20 05:00 98.2 F 69 17 123/71 97 01/22/20 20:56 97.5 F L 71 18 163/86 97 Intake and Output 01/22/20 01/23/20 01/23/20 22:59 06:59 14:59 Other: Voiding Method Urinal Urinal # Voids 1 1 Results 01/21/20 07:36 01/21/20 07:36 Current Medications Generic Name Dose Route Start Last Admin Trade Name Freq PRN Reason Stop Dose Admin Acetaminophen 650 mg 01/20/20 20:02 01/23/20 11:25 Tylenol Tab PO 650 mg Q6HR PRN Administration Mild Pain or Fever > 100.5 Amitriptyline HCl 50 mg 01/21/20 21:00 01/22/20 20:42 Elavil PO 50 mg HS MELINA Administration Amlodipine Besylate 10 mg 01/20/20 23:00 01/22/20 20:42 Norvasc PO 10 mg HS MELINA Administration Aspirin 81 mg 01/21/20 09:00 01/23/20 08:16 Aspirin PO 81 mg QAM MELINA Administration Atorvastatin Calcium 40 mg 01/20/20 23:00 01/22/20 20:41 Lipitor PO 40 mg HS MELINA Administration Clopidogrel Bisulfate 75 mg 01/21/20 12:00 01/23/20 08:16 Plavix PO 75 mg DAILY MELINA Administration Donepezil HCl 10 mg 01/20/20 23:00 01/22/20 20:42 Aricept PO 10 mg HS MELINA Administration Enoxaparin Sodium 40 mg 01/22/20 17:00 01/23/20 09:19 Lovenox SQ 40 mg DAILY MELINA Administration Gabapentin 300 mg 01/20/20 23:00 01/23/20 08:16 Neurontin PO 300 mg BID MELINA Administration Insulin Aspart 0 unit 01/21/20 07:30 01/23/20 12:35 Novolog SQ 8 unit ACHS MELINA Administration Protocol Insulin Detemir 56 unit 01/22/20 17:30 01/22/20 18:18 Levemir SQ 56 unit W/SUPPER MELINA Administration Lisinopril 2.5 mg 01/21/20 09:00 01/23/20 08:16 Zestril PO 2.5 mg QAM MELINA Administration Metoprolol Succinate 50 mg 01/20/20 23:00 01/22/20 20:42 Toprol Xl PO 50 mg HS MELINA Administration Naloxone HCl 0.2 mg 01/20/20 20:02 Narcan IV Q2M PRN Opioid Reversal Pantoprazole Sodium 40 mg 01/21/20 07:30 01/23/20 08:16 Protonix PO 40 mg AC-BRKFST MELINA Administration Tamsulosin HCl 0.4 mg 01/20/20 23:00 01/22/20 18:18 Flomax PO 0.4 mg W/SUPPER MELINA Administration Intake and Output 01/22/20 01/23/20 01/23/20 22:59 06:59 14:59 Other: Voiding Method Urinal Urinal # Voids 1 1 01/21/20 07:36 01/21/20 07:36
== END 2020-01-23 13:20 | DRG 641 ==
LOC: EC 17:26 → 6NMEDSUR 20:02 → 5NMEDONC 01-21 15:41
PROVIDERS: ADMIT Hospitalist; ATTEND Hospitalist
DX: E86.0 Dehydration (principal); T82.857A Stenosis of other cardiac prosthetic devices, implants and grafts, initial encounter; E87.2 Acidosis; S09.90XA Unspecified injury of head, initial encounter; F03.90 Unspecified dementia, unspecified severity, without behavioral disturbance, psychotic disturbance, mood disturbance, and anxiety; E11.42 Type 2 diabetes mellitus with diabetic polyneuropathy; E11.51 Type 2 diabetes mellitus with diabetic peripheral angiopathy without gangrene; N40.0 Benign prostatic hyperplasia without lower urinary tract symptoms; I44.0 Atrioventricular block, first degree; F41.8 Other specified anxiety disorders; E78.5 Hyperlipidemia, unspecified; I10 Essential (primary) hypertension; I25.5 Ischemic cardiomyopathy; I25.10 Atherosclerotic heart disease of native coronary artery without angina pectoris; E66.9 Obesity, unspecified; R29.6 Repeated falls; Z68.34 Body mass index [BMI] 34.0-34.9, adult; M25.572 Pain in left ankle and joints of left foot; M25.552 Pain in left hip; R26.2 Difficulty in walking, not elsewhere classified; Z79.82 Long term (current) use of aspirin; Z79.02 Long term (current) use of antithrombotics/antiplatelets; Z79.4 Long term (current) use of insulin; Z79.899 Other long term (current) drug therapy; Z98.890 Other specified postprocedural states; Z95.1 Presence of aortocoronary bypass graft; W22.01XA Walked into wall, initial encounter; Z82.49 Family history of ischemic heart disease and other diseases of the circulatory system; Y83.1 Surgical operation with implant of artificial internal device as the cause of abnormal reaction of the patient, or of later complication, without mention of misadventure at the time of the procedure
CPT/HCPCS: 36415; 70450; 71046; 72100; 72125; 73502; 80048; 80053; 81003; 83605; 85025; 85610; 85730; 87040; 93005; 93306; 96361; 96374; 99285

== ENCOUNTER → 2021-05-11 | Outpatient (CLI) | payer MEDICARE, BC ==
--- NOTE | 2021-05-12 08:39 | XR ---
EXAMINATION TYPE: XR chest 2V DATE OF EXAM: 05/11/2021 COMPARISON: Chest x-ray 01/20/2020 HISTORY: MRI clearance, Z 18.10 2 views of the chest correlated to prior chest x-ray dated 01/20/2020 The patient is rotated and post median sternotomy. There is no evident pneumothorax or pleural effusi on. Heart and mediastinal silhouette is stable. Arthropathy noted in the shoulders. Thoracic spondylo sis is present. There are some metallic densities noted on the lateral and frontal exams, these may b e within the upper abdomen rather than representing epicardial leads. IMPRESSION: No acute cardiopulmonary process. CT chest could be performed for better evaluation as i ndicated.
== END | disposition home or self-care (01) ==
LOC: RADXRMAIN 16:48
PROVIDERS: ATTEND Physician Assistant
DX: Z18.10 Retained metal fragments, unspecified (principal)
CPT/HCPCS: 71046

== ENCOUNTER 2022-03-16 12:15 | Inpatient (IN) | payer MEDICARE, BC ==
--- NOTE | 2022-03-16 13:34 | XR ---
EXAMINATION TYPE: XR chest 2V DATE OF EXAM: 03/16/2022 COMPARISON: Chest x-ray March 16, 2022 HISTORY: Cough. TECHNIQUE: Frontal and lateral views of the chest are obtained. FINDINGS: There is chronic parenchymal changes bilaterally without suspicious focal air space opacit y or pneumothorax seen. Small to tiny bilateral pleural effusions on current study. Overlying sternal wires and mediastinal clips redemonstrated. The cardiac silhouette size is stable and mildly enlarge d with atherosclerotic change aortic knob. Bridging osteophytes in the thoracic spine are noted. IMPRESSION: Chronic changes and mild cardiomegaly with new small to tiny bilateral pleural effusions .
--- NOTE | 2022-03-16 18:12 | ED ---
General Adult HPI - General Chief complaint: Upper Respiratory Infection Stated complaint: Covid+,Fall-AMS Time Seen by Provider: 03/16/22 17:35 Source: patient, family Mode of arrival: ambulatory Limitations: no limitations - History of Present Illness Initial comments: Patient is a 76-year-old male presenting with chief complaint of altered mental status. History of CAD with bypass surgery, diabetes, CHF. Patient has history of dementia, and I spoke with his daughter via telephone. She states that he tested positive for Covid at home 2 days ago. States that yesterday he was having episodes of several falls, and last night he was having episodes of irregular breathing, elevated heart rate, and hypotension. She also states that he has been having episodes of soiling himself which is new for him, he lives mostly independently with his daughter checking in on him daily. She states that normally he can walk without any assistance from a walker or cane, lately he has required a walker. When she spoke with his primary care physician today t he instructed her to bring him to the ER for further evaluation. While obtaining the history there is no one present with him at bedside. The patient is confused. He states that he has a mild headache. At this time the patient denies chest pain, shortness of breath, abdominal pain, nausea, vomiting, chills, palpitations, diarrhea, constipation, neck pain or pain present anywhere else. - Related Data Home Medications Medication Instructions Recorded Confirmed Omeprazole [PriLOSEC] 20 mg PO DAILY 02/23/15 03/16/22 amLODIPine BESYLATE [Norvasc] 10 mg PO HS 05/11/15 03/16/22 Aspirin EC [Ecotrin Low Dose] 81 mg PO DAILY 03/07/17 03/16/22 Metoprolol Succinate (ER) [Toprol 50 mg PO DAILY 03/07/17 03/16/22 XL] Tamsulosin HCl [Flomax] 0.4 mg PO DAILY 03/07/17 03/16/22 lisinopriL [Zestril] 2.5 mg PO DAILY 03/07/17 03/16/22 Furosemide [Lasix] 40 mg PO DAILY 11/08/19 03/16/22 Insulin Aspart [NovoLOG Flexpen] See Protocol SQ TID-W/MEALS PRN 11/08/19 03/16/22 metFORMIN HCL [Glucophage] 1,000 mg PO BID 01/01/20 03/16/22 Atorvastatin [Lipitor] 40 mg PO HS 01/20/20 03/16/22 Clopidogrel [Plavix] 75 mg PO DAILY 01/21/20 03/16/22 Amitriptyline HCl [Elavil] 25 mg PO HS 03/16/22 03/16/22 Cephalexin [Keflex] 500 mg PO BID 03/16/22 03/16/22 Cholecalciferol [Vitamin D3 (25 50 mcg PO DAILY 03/16/22 03/16/22 Mcg = 1000 Iu)] Gentamicin 0.1% Cream 1 applic TOPICAL DAILY 03/16/22 03/16/22 Insulin Glargine,Hum.rec.anlog 56 unit SQ W/LUNCH 03/16/22 03/16/22 [Lantus Solostar Pen] Oxybutynin Chloride [Oxybutynin 10 mg PO DAILY 03/16/22 03/16/22 Chloride ER] Potassium Chloride ER [K-Dur 10] 10 meq PO DAILY 03/16/22 03/16/22 traMADol HCL 50 mg PO BID 03/16/22 03/16/22 Previous Rx's Medication Instructions Recorded Donepezil [Aricept] 10 mg PO HS #30 03/13/15 Gabapentin [Neurontin] 300 mg PO BID #6 cap 01/23/20 Allergies Allergy/AdvReac Type Severity Reaction Status Date / Time No Known Allergies Allergy Verified 03/16/22 18:34 Review of Systems ROS Statement: Those systems with pertinent positive or pertinent negative responses have been documented in the HPI. ROS Other: All systems not noted in ROS Statement are negative. Past Medical History Past Medical History: Dementia, Diabetes Mellitus, Hyperlipidemia, Hypertension, Memory Impairment, Vascular Disorder Additional Past Medical History / Comment(s): neuropathy History of Any Multi-Drug Resistant Organisms: None Reported Past Surgical History: Coronary Bypass/CABG, Orthopedic Surgery Additional Past Surgical History / Comment(s): Left foot surgery, 5 vessel CABG 2014, recent aortogram Past Anesthesia/Blood Transfusion Reactions: No Reported Reaction Past Psychological History: Anxiety, Depression Smoking Status: Never smoker Past Alcohol Use History: None Reported Past Drug Use History: None Reported - Past Family History Father Family Medical History: Congestive Heart Failure (CHF) Mother Family Medical History: Congestive Heart Failure (CHF) General Exam Limitations: no limitations General appearance: alert, in no apparent distress Head exam: Present: atraumatic, normocephalic, normal inspection Eye exam: Present: normal appearance, EOMI. Absent: scleral icterus Neck exam: Present: normal inspection Respiratory exam: Present: normal lung sounds bilaterally. Absent: respiratory distress, wheezes, rales, rhonchi, stridor Cardiovascular Exam: Present: regular rate, normal rhythm, normal heart sounds. Absent: systolic murmur, diastolic murmur, rubs, gallop, clicks GI/Abdominal exam: Present: soft, distended, tenderness (Diffuse), normal bowel sounds. Absent: guarding, rebound, rigid Neurological exam: Present: alert, altered, CN II-XII intact Expanded Speech: Present: fluid speech Cranial nerves: EOM's Intact: Normal, Facial Sensation: Normal (No facial palsy) Eye Response: (4) open spontaneously Motor Response: (6) obeys commands Verbal Response: (5) oriented Thida Total: 15 Psychiatric exam: Present: normal affect, normal mood Skin exam: Present: warm, dry, intact, normal color. Absent: rash Course Vital Signs 03/16/22 03/16/22 03/16/22 12:27 17:47 18:55 Temperature 98.5 F 98.6 F Pulse Rate 75 76 79 Respiratory 22 20 20 Rate Blood Pressure 113/54 162/74 163/85 O2 Sat by Pulse 97 97 96 Oximetry 03/16/22 03/16/22 21:01 22:00 Temperature 99.0 F Pulse Rate 79 Respiratory 18 Rate Blood Pressure 166/80 O2 Sat by Pulse 93 L Oximetry EKG Findings - EKG Comments: EKG Findings:: Sinus rhythm with first-degree AV block. Rate of 76. OR interval 300. QRS duration 118. I reviewed previous EKG from 01/20/20, there are no acute changes. This EKG was also shown to and interpreted by my attending Dr. Perea. Medical Decision Making - Medical Decision Making Patient is a 76-year-old male presenting with altered mental status and positive Covid test results. Patient tested positive at home approximately 2 days ago. When speaking with his daughter on the phone she states that he has fallen multiple times over the last day and has become increasingly weak and confused. He had one episode of occult he breathing and hypotension last night and his PCP encouraged him to present to the ER today. Patient has a history of dementia, CAD with bypass surgery, diabetes, CHF. On exam lungs are clear to auscultation, heart sounds are normal. There appears to be some abdominal distention and tenderness on palpation. Patient was tested positive for coronavirus. His troponin is elevated at 0.495. EKG does not show changes consistent with ST elevation. Patient was placed on low-dose heparin protocol. He is hyperglycemic at 246. His urine is pending at this time. Chest x-ray shows chronic changes and mild cardiomegaly with new small tiny robbi ateral pleural effusions. CT of brain and cervical spine without contrast shows cerebral atrophy and chronic small vessel ischemia. No acute intracranial abnormality. Old lacunar infarcts in the periventricular white matter with some progression compared to old exam. Computed tomography scan of abdomen and pelvis with contrast shows no evidence of a bowel obstruction. Normal appendix. Mild sigmoid diverticulosis. Mild bilateral pleural effusions with mild basilar atelectasis and hiatal hernia He will require admission. I spoke with Dr. cano who agreed to admit the patient. I updated the patient's daughter, she conveyed verbal understanding and agreed to the plan. I discussed this case with my attending Dr. Paulson. - Lab Data Result diagrams: 03/16/22 18:43 03/16/22 18:43 Lab Results 03/16/22 03/16/22 03/16/22 Range/Units 12:34 18:33 18:43 WBC 4.8 (3.8-10.6) k/uL RBC 4.72 (4.30-5.90) m/uL Hgb 13.2 (13.0-17.5) gm/dL Hct 40.6 (39.0-53.0) % MCV 86.1 (80.0-100.0) fL MCH 28.0 (25.0-35.0) pg MCHC 32.6 (31.0-37.0) g/dL RDW 13.8 (11.5-15.5) % Plt Count 172 (150-450) k/uL MPV 7.3 Neutrophils % 66 % Lymphocytes % 22 % Monocytes % 9 % Eosinophils % 1 % Basophils % 0 % Neutrophils # 3.1 (1.3-7.7) k/uL Lymphocytes # 1.1 (1.0-4.8) k/uL Monocytes # 0.4 (0-1.0) k/uL Eosinophils # 0.0 (0-0.7) k/uL Basophils # 0.0 (0-0.2) k/uL PT (9.0-12.0) sec INR (<1.2) APTT (22.0-30.0) sec Sodium (137-145) mmol/L Potassium (3.5-5.1) mmol/L Chloride (98-107) mmol/L Carbon Dioxide (22-30) mmol/L Anion Gap mmol/L BUN (9-20) mg/dL Creatinine (0.66-1.25) mg/dL Est GFR (CKD-EPI)AfAm (>60 ml/min/1.73 sqM) Est GFR (CKD-EPI)NonAf (>60 ml/min/1.73 sqM) Glucose (74-99) mg/dL POC Glucose (mg/dL) 237 H (75-99) mg/dL POC Glu Airplane Refueler [facility] Plasma Lactic Acid Felix (0.7-2.0) mmol/L Calcium (8.4-10.2) mg/dL Phosphorus (2.5-4.5) mg/dL Magnesium (1.6-2.3) mg/dL Total Bilirubin (0.2-1.3) mg/dL AST (17-59) U/L ALT (4-49) U/L Alkaline Phosphatase (38-126) U/L Ammonia (<30) umol/L Lactate Dehydrogenase (313-618) U/L Troponin I (0.000-0.034) ng/mL C-Reactive Protein (<1.0) mg/dL NT-Pro-B Natriuret Pep pg/mL Total Protein (6.3-8.2) g/dL Albumin (3.5-5.0) g/dL Urine Color Urine Appearance (Clear) Urine pH (5.0-8.0) Ur Specific [place] (1.001-1.035) Urine Protein (Negative) Urine Glucose (UA) (Negative) Urine Ketones (Negative) Urine Blood (Negative) Urine Nitrite (Negative) Urine Bilirubin (Negative) Urine Urobilinogen (<2.0) mg/dL Ur Leukocyte Esterase (Negative) Urine RBC (0-5) /hpf Urine WBC (0-5) /hpf Hyaline Casts (0-2) /lpf Urine Mucus (None) /hpf Coronavirus (PCR) Detected A (Not Detectd) 03/16/22 03/16/22 03/16/22 Range/Units 18:43 18:43 18:43 WBC (3.8-10.6) k/uL RBC (4.30-5.90) m/uL Hgb (13.0-17.5) gm/dL Hct (39.0-53.0) % MCV (80.0-100.0) fL MCH (25.0-35.0) pg MCHC (31.0-37.0) g/dL RDW (11.5-15.5) % Plt Count (150-450) k/uL MPV Neutrophils % % Lymphocytes % % Monocytes % % Eosinophils % % Basophils % % Neutrophils # (1.3-7.7) k/uL Lymphocytes # (1.0-4.8) k/uL Monocytes # (0-1.0) k/uL Eosinophils # (0-0.7) k/uL Basophils # (0-0.2) k/uL PT 10.7 (9.0-12.0) sec INR 1.0 (<1.2) APTT 26.8 (22.0-30.0) sec Sodium 137 (137-145) mmol/L Potassium 4.2 (3.5-5.1) mmol/L Chloride 105 (98-107) mmol/L Carbon Dioxide 22 (22-30) mmol/L Anion Gap 10 mmol/L BUN 25 H (9-20) mg/dL Creatinine 1.17 (0.66-1.25) mg/dL Est GFR (CKD-EPI)AfAm 71 (>60 ml/min/1.73 sqM) Est GFR (CKD-EPI)NonAf 61 (>60 ml/min/1.73 sqM) Glucose 246 H (74-99) mg/dL POC Glucose (mg/dL) (75-99) mg/dL POC Glu Airplane Refueler ID Plasma Lactic Acid Felix (0.7-2.0) mmol/L Calcium 8.0 L (8.4-10.2) mg/dL Phosphorus 3.2 (2.5-4.5) mg/dL Magnesium 2.1 (1.6-2.3) mg/dL Total Bilirubin 2.0 H (0.2-1.3) mg/dL AST 38 (17-59) U/L ALT 26 (4-49) U/L Alkaline Phosphatase 100 (38-126) U/L Ammonia (<30) umol/L Lactate Dehydrogenase (313-618) U/L Troponin I 0.495 H* (0.000-0.034) ng/mL C-Reactive Protein (<1.0) mg/dL NT-Pro-B Natriuret Pep pg/mL Total Protein 7.0 (6.3-8.2) g/dL Albumin 3.5 (3.5-5.0) g/dL Urine Color Urine Appearance (Clear) Urine pH (5.0-8.0) Ur Specific [place] (1.001-1.035) Urine Protein (Negative) Urine Glucose (UA) (Negative) Urine Ketones (Negative) Urine Blood (Negative) Urine Nitrite (Negative) Urine Bilirubin (Negative) Urine Urobilinogen (<2.0) mg/dL Ur Leukocyte Esterase (Negative) Urine RBC (0-5) /hpf Urine WBC (0-5) /hpf Hyaline Casts (0-2) /lpf Urine Mucus (None) /hpf Coronavirus (PCR) (Not Detectd) 03/16/22 03/16/22 03/16/22 Range/Units 18:43 18:43 19:15 WBC (3.8-10.6) k/uL RBC (4.30-5.90) m/uL Hgb (13.0-17.5) gm/dL Hct (39.0-53.0) % MCV (80.0-100.0) fL MCH (25.0-35.0) pg MCHC (31.0-37.0) g/dL RDW (11.5-15.5) % Plt Count (150-450) k/uL MPV Neutrophils % % Lymphocytes % % Monocytes % % Eosinophils % % Basophils % % Neutrophils # (1.3-7.7) k/uL Lymphocytes # (1.0-4.8) k/uL Monocytes # (0-1.0) k/uL Eosinophils # (0-0.7) k/uL Basophils # (0-0.2) k/uL PT (9.0-12.0) sec INR (<1.2) APTT (22.0-30.0) sec Sodium (137-145) mmol/L Potassium (3.5-5.1) mmol/L Chloride (98-107) mmol/L Carbon Dioxide (22-30) mmol/L Anion Gap mmol/L BUN (9-20) mg/dL Creatinine (0.66-1.25) mg/dL Est GFR (CKD-EPI)AfAm (>60 ml/min/1.73 sqM) Est GFR (CKD-EPI)NonAf (>60 ml/min/1.73 sqM) Glucose (74-99) mg/dL POC Glucose (mg/dL) (75-99) mg/dL POC Glu Airplane Refueler ID Plasma Lactic Acid Felix 1.5 (0.7-2.0) mmol/L Calcium (8.4-10.2) mg/dL Phosphorus (2.5-4.5) mg/dL Magnesium (1.6-2.3) mg/dL Total Bilirubin (0.2-1.3) mg/dL AST (17-59) U/L ALT (4-49) U/L Alkaline Phosphatase (38-126) U/L Ammonia <9 (<30) umol/L Lactate Dehydrogenase 711 H (313-618) U/L Troponin I (0.000-0.034) ng/mL C-Reactive Protein 14.4 H (<1.0) mg/dL NT-Pro-B Natriuret Pep 1600 pg/mL Total Protein (6.3-8.2) g/dL Albumin (3.5-5.0) g/dL Urine Color Urine Appearance (Clear) Urine pH (5.0-8.0) Ur Specific [place] (1.001-1.035) Urine Protein (Negative) Urine Glucose (UA) (Negative) Urine Ketones (Negative) Urine Blood (Negative) Urine Nitrite (Negative) Urine Bilirubin (Negative) Urine Urobilinogen (<2.0) mg/dL Ur Leukocyte Esterase (Negative) Urine RBC (0-5) /hpf Urine WBC (0-5) /hpf Hyaline Casts (0-2) /lpf Urine Mucus (None) /hpf Coronavirus (PCR) (Not Detectd) 03/16/22 Range/Units 21:58 WBC (3.8-10.6) k/uL RBC (4.30-5.90) m/uL Hgb (13.0-17.5) gm/dL Hct (39.0-53.0) % MCV (80.0-100.0) fL MCH (25.0-35.0) pg MCHC (31.0-37.0) g/dL RDW (11.5-15.5) % Plt Count (150-450) k/uL MPV Neutrophils % % Lymphocytes % % Monocytes % % Eosinophils % % Basophils % % Neutrophils # (1.3-7.7) k/uL Lymphocytes # (1.0-4.8) k/uL Monocytes # (0-1.0) k/uL Eosinophils # (0-0.7) k/uL Basophils # (0-0.2) k/uL PT (9.0-12.0) sec INR (<1.2) APTT (22.0-30.0) sec Sodium (137-145) mmol/L Potassium (3.5-5.1) mmol/L Chloride (98-107) mmol/L Carbon Dioxide (22-30) mmol/L Anion Gap mmol/L BUN (9-20) mg/dL Creatinine (0.66-1.25) mg/dL Est GFR (CKD-EPI)AfAm (>60 ml/min/1.73 sqM) Est GFR (CKD-EPI)NonAf (>60 ml/min/1.73 sqM) Glucose (74-99) mg/dL POC Glucose (mg/dL) (75-99) mg/dL POC Glu Airplane Refueler ID Plasma Lactic Acid Felix (0.7-2.0) mmol/L Calcium (8.4-10.2) mg/dL Phosphorus (2.5-4.5) mg/dL Magnesium (1.6-2.3) mg/dL Total Bilirubin (0.2-1.3) mg/dL AST (17-59) U/L ALT (4-49) U/L Alkaline Phosphatase (38-126) U/L Ammonia (<30) umol/L Lactate Dehydrogenase (313-618) U/L Troponin I (0.000-0.034) ng/mL C-Reactive Protein (<1.0) mg/dL NT-Pro-B Natriuret Pep pg/mL Total Protein (6.3-8.2) g/dL Albumin (3.5-5.0) g/dL Urine Color Yellow Urine Appearance Clear (Clear) Urine pH 6.0 (5.0-8.0) Ur Specific [place] 1.017 (1.001-1.035) Urine Protein 2+ H (Negative) Urine Glucose (UA) 3+ H (Negative) Urine Ketones Negative (Negative) Urine Blood Small H (Negative) Urine Nitrite Negative (Negative) Urine Bilirubin Negative (Negative) Urine Urobilinogen 2.0 (<2.0) mg/dL Ur Leukocyte Esterase Negative (Negative) Urine RBC <1 (0-5) /hpf Urine WBC 1 (0-5) /hpf Hyaline Casts 3 H (0-2) /lpf Urine Mucus Rare H (None) /hpf Coronavirus (PCR) (Not Detectd) - Radiology Data Radiology results: report reviewed, image reviewed Chest x-ray shows chronic changes and mild cardiomegaly with new small tiny bilateral pleural effusions. CT of brain and cervical spine without contrast shows cerebral atrophy and chronic small vessel ischemia. No acute intracranial abnormality. Old lacunar infarcts in the periventricular white matter with some progression compared to old exam. Computed tomography scan of abdomen and pelvis with contrast shows no evidence of a bowel obstruction. Normal appendix. Mild sigmoid diverticulosis. Mild bilateral pleural effusions with mild basilar atelectasis and hiatal hernia Disposition Clinical Impression: Non-ST elevation myocardial infarction (NSTEMI), COVID-19, Altered mental status Disposition: ADMITTED IP TO THIS [facility] Time of Disposition: 22:00 Decision to Admit Reason: Admit from EC Decision Date: 03/16/22 Decision Time: 22:00
[2022-03-16] MEDS ORDERED: SODIUM CHLORIDE 0.9% 1,000 ML IV ONE (18:14)
[2022-03-16 18:34] LABS: Glucose,Whole Blood 237 mg/dL (75-99)
[2022-03-16 18:59] LABS: Lactic Acid, Venous 1.5 mmol/L (0.7-2.0)
[2022-03-16 19:00] LABS: Basophils % (A) 0 %; Eosinophils % (A) 1 %; HCT 40.6 % (39.0-53.0); HGB 13.2 gm/dL (13.0-17.5); Lymphocytes # (A) 1.1 k/uL (1.0-4.8); Lymphocytes % (A) 22 %; MCHC 32.6 g/dL (31.0-37.0); MCV 86.1 fL (80.0-100.0); Mean Platelet Volume 7.3; Monocytes # (A) 0.4 k/uL (0-1.0); Monocytes % (A) 9 %; Neutrophils # (A) 3.1 k/uL (1.3-7.7); Neutrophils % (A) 66 %; Platelet Count 172 k/uL (150-450); RBC 4.72 m/uL (4.30-5.90); RDW 13.8 % (11.5-15.5); WBC 4.8 k/uL (3.8-10.6)
[2022-03-16] MEDS ORDERED: BEBTELOVIMAB (EUA) 175 MG/2 ML VIAL IV ONE (19:00)
[2022-03-16 19:04] LABS: Partial Thromboplastin Time 26.8 sec (22.0-30.0); Prothrombin Time 10.7 sec (9.0-12.0)
--- NOTE | 2022-03-16 19:14 | CT ---
EXAMINATION TYPE: CT brain sadieine wo con DATE OF EXAM: 03/16/2022 COMPARISON: 01/20/2020 HISTORY: recent falls CT DLP: 1857.6 mGycm Automated exposure control for dose reduction was used. Images of the brain and cervical spine obtained without contrast. There is cerebral cortical atrophy. There is patchy hypodensity in the periventricular white matter w ith bilateral internal capsule lacunar infarcts. There is no midline shift. There is no sign of intra cranial hemorrhage. Calvarium is intact. The skull base is intact. There is incomplete aeration of th e mastoid sinuses. The cervical vertebra have fairly normal spacing and alignment. Posterior elements are intact. Facet joints are intact. Prevertebral soft tissues appear normal. IMPRESSION: Cerebral atrophy and chronic small vessel ischemia. No acute intracranial abnormality. Old lacunar in farcts in the periventricular white matter with some progression compared to old exam. No acute abnormality of the cervical spine.
[2022-03-16 19:20] LABS: Albumin 3.5 g/dL (3.5-5.0); Magnesium 2.1 mg/dL (1.6-2.3); Phosphorus 3.2 mg/dL (2.5-4.5); Potassium 4.2 mmol/L (3.5-5.1)
[2022-03-16] MEDS ORDERED: HEPARIN SODIUM 1,000 UN/ML (10ML VL) IV ONE (19:47)
[2022-03-16] MEDS ORDERED: HEPARIN SODIUM 1,000 UN/ML (10ML VL) IV PRN (19:47)
[2022-03-16 20:38] LABS: C Reactive Protein 14.4 mg/dL (<1.0)
[2022-03-16] MEDS: HEPARIN SOD,PORK IN 0.45% NACL 25,000 UNIT in 0.45% NACL 1 250ML.BAG IV SCH (20:58)
[2022-03-16] MEDS ORDERED: NALOXONE 0.4 MG/ML 1 ML VIAL IV PRN (21:01)
--- NOTE | 2022-03-16 22:08 | CT ---
EXAMINATION TYPE: CT abdomen pelvis w con DATE OF EXAM: 03/16/2022 COMPARISON: None HISTORY: abdominal bloating, fall, covid + CT DLP: 1807.2 mGycm Automated exposure control for dose reduction was used. CONTRAST: Performed with IV Contrast, patient injected with 100 mL of Isovue 300. Images obtained from the diaphragm to the floor the pelvis with IV contrast. There is bilateral pleural effusions. Heart size is normal. No pericardial effusion. Liver spleen and stomach pancreas gallbladder appear intact. The bile ducts are not dilated. There is no adrenal mass. Kidneys show satisfactory contrast opacification. There is no hydronephrosi s. Delayed images show normal renal excretion. Bladder distends smoothly. There is no inguinal hernia . No free fluid in the pelvis. There are a few sigmoid diverticula. There is no diverticulitis. Appen [place] is posterior and appears normal. There is no mesenteric edema. No ascites or free air. No bowel obstruction. The lumbar vertebra have normal alignment. There is multilevel mild spondylotic changes. No compressi on fracture. The bony pelvis appears intact. The hip joints appear intact. Sacroiliac joints are inta ct. There is mild acetabular spurring. Abdominal aorta is atheromatous. IMPRESSION: Mild bilateral pleural effusions. Mild basilar atelectasis. Hiatal hernia. Mild sigmoid diverticulosis. No evidence of a bowel obstruction. Normal appendix.
[2022-03-16 22:26] LABS: Appearance,Urine Clear (Clear); Bilirubin,Urine Negative (Negative); Blood,Urine Small (Negative); Color,Urine Yellow; Glucose,Urine (UA) 3+ (Negative); Hyaline Casts,Urine 3 /lpf (0-2); Ketones,Urine Negative (Negative); Leukocyte Esterase,Urine Negative (Negative); Mucus,Urine Rare /hpf; Nitrite,Urine Negative (Negative); Protein,Urine 2+ (Negative); RBC,Urine <1 /hpf (0-5); Specific Gravity,Urine 1.017 (1.001-1.035); WBC,Urine 1 /hpf (0-5)
[2022-03-17] MEDS ORDERED: ATORVASTATIN 80 MG TAB PO STA (00:06)
[2022-03-17] MEDS ORDERED: ASPIRIN 325 MG TAB PO STA (00:06)
--- NOTE | 2022-03-17 00:14 | P.HPIM ---
History of Present Illness H&P Date: 03/16/22 The patient is a 76-year-old male with a PMH of coronary artery disease status post 4-vessel bypass 2015, systolic CHF, type II DM, and dementia who presented to the emergency room due to multiple falls at home. The history was supplemented by the daughter (Sagrario) via the telephone. She reports that the patient was tested for COVID 2 days ago after his other daughter who lives with him at tested positive. He also tested positive, and then developed complaints of nonproductive cough, shortness of breath, and chills. The daughter reports that over the past 2-3 days, he has had multiple episodes of unsteadiness and sliding down to the ground, as many as 5, with no reported injuries sustained. The patient was confused at the time of interview, and thereby history obtained from the ED provider and from the family. The patient reported that he fell earlier today but was unable to state the circumstances surrounding the fall. He denied experiencing loss of consciousness. Reported feeling overall not well, complained of chills and shortness of breath but denied chest discomfort, nausea, vomiting, diaphoresis. Also denied abdominal pain, diarrhea. EKG emergency room revealed sinus rhythm with first-degree AV block at [address] elevations in leads V1 to V3, and depression in leads aVL, unchanged from prior EKG from 01/2020. 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 Head/cervical spine CT in the emergency room revealed chronic small vessel ischemic disease as well as lacunar infarcts but no acute abnormalities. Chest x-ray revealed chronic changes with mild cardiomegaly with small bilateral pleural effusions. CT abdomen pelvis with contrast revealed mild bilateral pleural effusion with a hiatal hernia with mild diverticulosis. Laboratory evaluation was remarkable for troponin of 0.495, coronavirus PCR positive, and T bili 2.0 with LDH 711, and CRP 14.4. SpO2 in the emergency room was 93% on room air. Review of systems: Pertinent positives and negatives as discussed in HPI, a complete review of systems was performed and all other systems are negative. Physical examination: General: non toxic, no distress, appears at stated age, obese Derm: no unusual rashes/lesions no unusual ecchymoses, warm, dry Head: atraumatic, normocephalic, symmetric Eyes: EOMI, no lid lag, anicteric sclera, pupils equal round reactive to light ENT: Nose and ears atraumatic, no thrush, no pharyngeal erythema Neck: No thyromegaly, no cervical lymphadenopathy, trachea midline, supple Mouth: no lip lesion, mucus membranes moist Cardiovascular: S1S2 reg, no murmur, positive posterior tibial pulse bilateral, no edema, capillary refill less than 2 seconds Lungs: Some scattered rhonchi, no wheezing or rales, no accessory muscle use Abdominal: soft, nontender to palpation, no guarding, no appreciable organomegaly, normal bowel sounds Ext: no gross muscle atrophy, muscle strength 5 out of 5 in all 4 extremities grossly, no contractures, Neuro: CN II-XI grossly intact, light touch intact all 4 extremities, finger to nose within normal limits, Psych: Alert, and in place, not fully oriented to time Assessment/plan Non-ST elevation [place] -Continue aspirin, statin -Heparin infusion -Cardiology consulted -Cardiac monitoring -Trend troponin COVID-19 pneumonitis with acute hypoxic respiratory failure -Continue Decadron. -Supplemental oxygen -Vitamin C, vitamin D, zinc, melatonin -Status post Bebtelovimab in the ED Chronic conditions: Type II DM, CHF, dementia/-insulin sliding scale and blood glucose monitoring -Check A1c -Insulin sliding scale and blood glucose monitoring -Judicious use of IV fluids in setting of CHF history DVT prophylaxis -Heparin infusion The patient is admitted with an anticipated greater than 2 midnight stay for evaluation of NSTEMI CODE STATUS: Full Code Discussed with: Patient Anticipated discharge date: 2-[address]: Home Past Medical History Past Medical History: Dementia, Diabetes Mellitus, Hyperlipidemia, Hypertension, Memory Impairment, Vascular Disorder Additional Past Medical History / Comment(s): neuropathy History of Any Multi-Drug Resistant Organisms: None Reported Past Surgical History: Coronary Bypass/CABG, Orthopedic Surgery Additional Past Surgical History / Comment(s): Left foot surgery, 5 vessel CABG 2014, recent aortogram Past Anesthesia/Blood Transfusion Reactions: No Reported Reaction Past Psychological History: Anxiety, Depression Smoking Status: Never smoker Past Alcohol Use History: None Reported Past Drug Use History: None Reported - Past Family History Father Family Medical History: Congestive Heart Failure (CHF) Mother Family Medical History: Congestive Heart Failure (CHF) Medications and Allergies Home Medications Medication Instructions Recorded Confirmed Type Omeprazole [PriLOSEC] 20 mg PO DAILY 02/23/15 03/16/22 History Donepezil [Aricept] 10 mg PO HS #30 03/13/15 03/16/22 Rx amLODIPine BESYLATE [Norvasc] 10 mg PO HS 05/11/15 03/16/22 History Aspirin EC [Ecotrin Low Dose] 81 mg PO DAILY 03/07/17 03/16/22 History Metoprolol Succinate (ER) [Toprol 50 mg PO DAILY 03/07/17 03/16/22 History XL] Tamsulosin HCl [Flomax] 0.4 mg PO DAILY 03/07/17 03/16/22 History lisinopriL [Zestril] 2.5 mg PO DAILY 03/07/17 03/16/22 History Furosemide [Lasix] 40 mg PO DAILY 11/08/19 03/16/22 History Insulin Aspart [NovoLOG Flexpen] See Protocol SQ TID-W/MEALS PRN 11/08/19 03/16/22 History metFORMIN HCL [Glucophage] 1,000 mg PO BID 01/01/20 03/16/22 History Atorvastatin [Lipitor] 40 mg PO HS 01/20/20 03/16/22 History Clopidogrel [Plavix] 75 mg PO DAILY 01/21/20 03/16/22 History Gabapentin [Neurontin] 300 mg PO BID #6 cap 01/23/20 03/16/22 Rx Amitriptyline HCl [Elavil] 25 mg PO HS 03/16/22 03/16/22 History Cephalexin [Keflex] 500 mg PO BID 03/16/22 03/16/22 History Cholecalciferol [Vitamin D3 (25 50 mcg PO DAILY 03/16/22 03/16/22 History Mcg = 1000 Iu)] Gentamicin 0.1% Cream 1 applic TOPICAL DAILY 03/16/22 03/16/22 History Insulin Glargine,Hum.rec.anlog 56 unit SQ W/LUNCH 03/16/22 03/16/22 History [Lantus Solostar Pen] Oxybutynin Chloride [Oxybutynin 10 mg PO DAILY 03/16/22 03/16/22 History Chloride ER] Potassium Chloride ER [K-Dur 10] 10 meq PO DAILY 03/16/22 03/16/22 History traMADol HCL 50 mg PO BID 03/16/22 03/16/22 History Allergies Allergy/AdvReac Type Severity Reaction Status Date / Time No Known Allergies Allergy Verified 03/16/22 18:34 Physical Exam Vitals: Vital Signs Temp Pulse Resp BP Pulse Ox 03/16/22 22:00 99.0 F 03/16/22 21:01 79 18 166/80 93 L 03/16/22 18:55 79 20 163/85 96 03/16/22 17:47 98.6 F 76 20 162/74 97 03/16/22 12:27 98.5 F 75 22 113/54 97 Intake and Output 03/16/22 03/16/22 03/17/22 14:59 22:59 06:59 Output Total 310 Balance -310 Output: Urine 310 Other: Weight 104.326 kg Results CBC & Chem 7: 03/16/22 18:43 03/16/22 18:43 Labs: Abnormal Lab Results - Last 24 Hours (Table) 03/16/22 03/16/22 03/16/22 Range/Units 12:34 18:33 18:43 BUN 25 H (9-20) mg/dL Glucose 246 H (74-99) mg/dL POC Glucose (mg/dL) 237 H (75-99) mg/dL Calcium 8.0 L (8.4-10.2) mg/dL Total Bilirubin 2.0 H (0.2-1.3) mg/dL Lactate Dehydrogenase (313-618) U/L Troponin I (0.000-0.034) ng/mL C-Reactive Protein (<1.0) mg/dL Urine Protein (Negative) Urine Glucose (UA) (Negative) Urine Blood (Negative) Hyaline Casts (0-2) /lpf Urine Mucus (None) /hpf Coronavirus (PCR) Detected A (Not Detectd) 03/16/22 03/16/22 03/16/22 Range/Units 18:43 19:15 21:58 BUN (9-20) mg/dL Glucose (74-99) mg/dL POC Glucose (mg/dL) (75-99) mg/dL Calcium (8.4-10.2) mg/dL Total Bilirubin (0.2-1.3) mg/dL Lactate Dehydrogenase 711 H (313-618) U/L Troponin I 0.495 H* (0.000-0.034) ng/mL C-Reactive Protein 14.4 H (<1.0) mg/dL Urine Protein 2+ H (Negative) Urine Glucose (UA) 3+ H (Negative) Urine Blood Small H (Negative) Hyaline Casts 3 H (0-2) /lpf Urine Mucus Rare H (None) /hpf Coronavirus (PCR) (Not Detectd)
[2022-03-17] MEDS: dexAMETHasone 2 MG TAB PO SCH (01:03)
[2022-03-17 03:59] LABS: Basophils % (A) 1 %; Eosinophils % (A) 0 %; HCT 40.4 % (39.0-53.0); HGB 12.9 gm/dL (13.0-17.5); Lymphocytes # (A) 0.7 k/uL (1.0-4.8); Lymphocytes % (A) 8 %; MCH 28.1 pg (25.0-35.0); MCV 87.9 fL (80.0-100.0); Mean Platelet Volume 7.2; Monocytes # (A) 0.4 k/uL (0-1.0); Monocytes % (A) 5 %; Neutrophils # (A) 6.9 k/uL (1.3-7.7); Neutrophils % (A) 85 %; Platelet Count 163 k/uL (150-450); RDW 13.8 % (11.5-15.5); WBC 8.1 k/uL (3.8-10.6)
[2022-03-17 04:11] LABS: Albumin 3.3 g/dL (3.5-5.0); Carbon Dioxide 19 mmol/L (22-30); Total Protein 6.8 g/dL (6.3-8.2)
[2022-03-17 04:13] LABS: Prothrombin Time 10.8 sec (9.0-12.0)
[2022-03-17 04:23] LABS: ALT 25 U/L (4-49); AST 39 U/L (17-59); African American GFR (CKD) >90 (>60 ml/min/1.73 sqM); Alkaline Phosphatase 99 U/L (38-126); Anion Gap 10 mmol/L; Blood Urea Nitrogen 19 mg/dL (9-20); Calcium 8.1 mg/dL (8.4-10.2); Chloride 110 mmol/L (98-107); Glucose 214 mg/dL (74-99); Non-African American GFR(CKD) 80 (>60 ml/min/1.73 sqM); Potassium 4.1 mmol/L (3.5-5.1); Sodium 139 mmol/L (137-145); Total Bilirubin 2.3 mg/dL (0.2-1.3)
[2022-03-17] MEDS: SODIUM CHLORIDE 0.9% 1,000 ML IV SCH ×2 (06:03→12:13)
[2022-03-17 08:09] LABS: Glucose,Whole Blood 248 mg/dL (75-99)
[2022-03-17] MEDS: INSULIN ASPART (NovoLOG) 100 UNIT/ML VIAL SQ SCH ×5 (08:13→21:19)
--- NOTE | 2022-03-17 08:54 | P.CRDCN ---
History of Present Illness History of present illness: 76-year-old gentleman with history of coronary artery disease status post CABG chronic systolic heart failure diabetes and dementia is admitted to hospital with altered mental status. Patient has tested positive for cold with 2 days ago. He has had episodes of falls. Somewhat short of breath apparently hypotensive and had elevated heart rate. He lives mostly independently and his daughter checks on him daily. He has had episodes of incontinence. I have been consulted because of elevated troponin. At the time of my evaluation in the emergency room he denies chest pain difficulty in breathing. Appears very comfortable at rest. His troponin is 0.495 and 0.4. Troponins have been flat. In EKG shows sinus rhythm first-degree AV block and poor R-wave progression. Given the recent c coronavirus infection is not a candidate for invasive procedures at this time. The exact etiology for elevated troponins is unclear could be related to the systemic illness. He could have had a small non-ST segment elevation ND. I will obtain a 2-D echo to assess LV function and wall motion. I will check a d-dimer to rule out pulmonary embolism given the recent history of coronavirus infection. Review of systems: Constitutional: Denies chills. Denies fever. Patient has recent coronavirus infection Eyes: Denies blurred vision. Denies pain. Ears, nose, mouth and throat: Denies headache. Denies sore throat. Cardiovascular: Denies chest pain. Denies shortness of breath. Respiratory: Denies cough. Significant for shortness of breath Gastrointestinal: Denies abdominal pain. Denies diarrhea. Denies nausea. Denies vomiting. Musculoskeletal: Denies myalgias. History of falls Integumentary: Denies pruritus. Denies rash. Neurological: Denies numbness. Denies weakness. Psychiatric: Denies anxiety. Denies depression. Endocrine: Denies fatigue. Denies weight change. Genitourinary: Denies burning, hematuria, frequency of urination. Significant for incontinence Hematological: No anemia or excess bleeding. General: The patient is awake and alert, in no distress, and does not appear acutely ill. Skin: Skin is warm and dry and no rashes or lesions are noted. Eye: Pupils are equal, round and reactive to light, extra-ocular movements are intact; there is normal conjunctiva bilaterally. Ears, nose, mouth and throat: There are moist mucous membranes and no oral lesions. Neck: The neck is supple, there is no tenderness or JVD. Cardiovascular: There is a regular rate and rhythm. No rub or gallop is appreciated. Systolic murmur at the left lower sternal border Respiratory: Lungs are clear to auscultation, respirations are non-labored, breath sounds are equal. Diminished air entry bilaterally Gastrointestinal: Soft, non-distended, non-tender abdomen without masses or organomegaly noted. There is no rebound or guarding present. Bowel sounds are unremarkable. Back: There is no tenderness to palpation in the midline. There is no obvious deformity. Musculoskeletal: Normal ROM, no tenderness, There is no pedal edema. There is no calf tenderness or swelling. Extremities: Mild bilateral leg edema Vascular: Femoral pulse is normal. Posterior tibial pulses are normal .Dorsalis pedis is palpable. Neurological: CN II-XII intact. There are no obvious motor or sensory deficits. Speech is normal. Psychiatric: Cooperative, appropriate mood & affect, normal judgment. Labs: Potassium is 4.2 creatinine is 1 troponins are mildly elevated but flat hemoglobin is 13.2 platelet count is 172 EKG is as described above chest x-ray does not show congestive heart failure Assessment and plan: Coronavirus infection Non-ST segment elevation ND CAD status post CABG History of dementia I will continue the patient on intravenous heparin for another day. I will check an echocardiogram. Please resume home medications including lisinopril Toprol-XL Lasix aspirin and Plavix Past Medical History Past Medical History: Dementia, Diabetes Mellitus, Hyperlipidemia, Hypertension, Memory Impairment, Vascular Disorder Additional Past Medical History / Comment(s): neuropathy History of Any Multi-Drug Resistant Organisms: None Reported Past Surgical History: Coronary Bypass/CABG, Orthopedic Surgery Additional Past Surgical History / Comment(s): Left foot surgery, 5 vessel CABG 2014, recent aortogram Past Anesthesia/Blood Transfusion Reactions: No Reported Reaction Past Psychological History: Anxiety, Depression Smoking Status: Never smoker Past Alcohol Use History: None Reported Past Drug Use History: None Reported - Past Family History Father Family Medical History: Congestive Heart Failure (CHF) Mother Family Medical History: Congestive Heart Failure (CHF) Medications and Allergies Home Medications Medication Instructions Recorded Confirmed Type Omeprazole [PriLOSEC] 20 mg PO DAILY 02/23/15 03/16/22 History Donepezil [Aricept] 10 mg PO HS #30 03/13/15 03/16/22 Rx amLODIPine BESYLATE [Norvasc] 10 mg PO HS 05/11/15 03/16/22 History Aspirin EC [Ecotrin Low Dose] 81 mg PO DAILY 03/07/17 03/16/22 History Metoprolol Succinate (ER) [Toprol 50 mg PO DAILY 03/07/17 03/16/22 History XL] Tamsulosin HCl [Flomax] 0.4 mg PO DAILY 03/07/17 03/16/22 History lisinopriL [Zestril] 2.5 mg PO DAILY 03/07/17 03/16/22 History Furosemide [Lasix] 40 mg PO DAILY 11/08/19 03/16/22 History Insulin Aspart [NovoLOG Flexpen] See Protocol SQ TID-W/MEALS PRN 11/08/19 03/16/22 History metFORMIN HCL [Glucophage] 1,000 mg PO BID 01/01/20 03/16/22 History Atorvastatin [Lipitor] 40 mg PO HS 01/20/20 03/16/22 History Clopidogrel [Plavix] 75 mg PO DAILY 01/21/20 03/16/22 History Gabapentin [Neurontin] 300 mg PO BID #6 cap 01/23/20 03/16/22 Rx Amitriptyline HCl [Elavil] 25 mg PO HS 03/16/22 03/16/22 History Cephalexin [Keflex] 500 mg PO BID 03/16/22 03/16/22 History Cholecalciferol [Vitamin D3 (25 50 mcg PO DAILY 03/16/22 03/16/22 History Mcg = 1000 Iu)] Gentamicin 0.1% Cream 1 applic TOPICAL DAILY 03/16/22 03/16/22 History Insulin Glargine,Hum.rec.anlog 56 unit SQ W/LUNCH 03/16/22 03/16/22 History [Lantus Solostar Pen] Oxybutynin Chloride [Oxybutynin 10 mg PO DAILY 03/16/22 03/16/22 History Chloride ER] Potassium Chloride ER [K-Dur 10] 10 meq PO DAILY 03/16/22 03/16/22 History traMADol HCL 50 mg PO BID 03/16/22 03/16/22 History Allergies Allergy/AdvReac Type Severity Reaction Status Date / Time No Known Allergies Allergy Verified 03/16/22 18:34 Physical Exam Vitals: Vital Signs Temp Pulse Resp BP Pulse Ox 03/17/22 08:00 98.3 F 90 18 152/88 96 03/17/22 06:06 98.9 F 90 19 160/89 97 03/17/22 03:00 90 19 167/78 98 03/16/22 22:00 99.0 F 03/16/22 21:01 79 18 166/80 93 L 03/16/22 18:55 79 20 163/85 96 03/16/22 17:47 98.6 F 76 20 162/74 97 03/16/22 12:27 98.5 F 75 22 113/54 97 Intake and Output 03/16/22 03/17/22 03/17/22 22:59 06:59 14:59 Intake Total 59.196 Output Total 310 Balance -310 59.196 Intake: Intake, IV Titration 59.196 Amount Heparin Sod,Pork in 0.45% 59.196 NaCl 25,000 unit In 0.45 % NaCl 1 250ml.bag @ 9.59 UNITS/KG/HR 10.005 mls/ hr IV .Q24H COUNTS INCLUDE 234 BEDS AT THE [facility] Rx#: [id number] Output: Urine 310 Results 03/17/22 03:35 03/17/22 03:35 Cardiac Enzymes 03/16/22 03/16/22 03/16/22 Range/Units 18:43 18:43 19:15 AST 38 (17-59) U/L Lactate Dehydrogenase 711 H (313-618) U/L Troponin I 0.495 H* (0.000-0.034) ng/mL 03/17/22 03/17/22 03/17/22 Range/Units 01:05 03:35 03:35 AST 39 (17-59) U/L Lactate Dehydrogenase (313-618) U/L Troponin I 0.475 H* 0.431 H* (0.000-0.034) ng/mL Coagulation 03/16/22 03/17/22 03/17/22 Range/Units 18:43 01:05 03:35 PT 10.7 10.8 (9.0-12.0) sec APTT 26.8 59.8 H (22.0-30.0) sec CBC 03/16/22 03/17/22 Range/Units 18:43 03:35 WBC 4.8 8.1 (3.8-10.6) k/uL RBC 4.72 4.60 (4.30-5.90) m/uL Hgb 13.2 12.9 L (13.0-17.5) gm/dL Hct 40.6 40.4 (39.0-53.0) % Plt Count 172 163 (150-450) k/uL Comprehensive Metabolic Panel 03/16/22 03/17/22 Range/Units 18:43 03:35 Sodium 137 139 (137-145) mmol/L Potassium 4.2 4.1 (3.5-5.1) mmol/L Chloride 105 110 H (98-107) mmol/L Carbon Dioxide 22 19 L (22-30) mmol/L BUN 25 H 19 (9-20) mg/dL Creatinine 1.17 0.94 (0.66-1.25) mg/dL Glucose 246 H 214 H (74-99) mg/dL Calcium 8.0 L 8.1 L (8.4-10.2) mg/dL AST 38 39 (17-59) U/L ALT 26 25 (4-49) U/L Alkaline Phosphatase 100 99 (38-126) U/L Total Protein 7.0 6.8 (6.3-8.2) g/dL Albumin 3.5 3.3 L (3.5-5.0) g/dL Current Medications Generic Name Dose Route Start Last Admin Trade Name Freq PRN Reason Stop Dose Admin Ascorbic Acid 1,000 mg 03/17/22 09:00 Ascorbic Acid 500 Mg Tab PO DAILY COUNTS INCLUDE 234 BEDS AT THE [facility] Aspirin 81 mg 03/17/22 09:00 Aspirin 81 Mg PO DAILY COUNTS INCLUDE 234 BEDS AT THE [facility] Atorvastatin Calcium 80 mg 03/17/22 09:00 Atorvastatin 80 Mg Tab PO DAILY COUNTS INCLUDE 234 BEDS AT THE [facility] Cholecalciferol 125 mcg 03/17/22 09:00 Cholecalciferol 125 Mcg (5000 Iu) Tablet PO DAILY COUNTS INCLUDE 234 BEDS AT THE [facility] Dexamethasone 6 mg 03/17/22 00:15 03/17/22 01:03 Dexamethasone 2 Mg Tab PO 03/22/22 00:16 Not Given Q24H COUNTS INCLUDE 234 BEDS AT THE [facility] Heparin Sodium (Porcine) 0 unit 03/16/22 19:47 Heparin Sodium 1,000 Un/Ml (10ml Vl) IV PER PROTOCOL PRN Low PTT Protocol Heparin Sodium/Sodium Chloride 250 mls @ 10.005 mls/hr 03/16/22 20:00 03/17/22 02:53 25,000 unit/ Sodium Chloride IV 9.59 units/kg/hr .Q24H MELINA 10.005 mls/hr Titration Protocol 9.59 UNITS/KG/HR Sodium Chloride 1,000 mls @ 75 mls/hr 03/16/22 21:15 03/17/22 06:03 Saline 0.9% IV Not Given .[id number] COUNTS INCLUDE 234 BEDS AT THE [facility] Insulin Aspart 0 unit 03/17/22 07:30 Insulin Aspart (Novolog) 100 Unit/Ml Vial SQ ACHS COUNTS INCLUDE 234 BEDS AT THE [facility] Protocol Naloxone HCl 0.2 mg 03/16/22 21:01 Naloxone 0.4 Mg/Ml 1 Ml Vial IV Q2M PRN Opioid Reversal Zinc Sulfate 220 mg 03/17/22 09:00 Zinc Sulfate 220 Mg Cap PO DAILY COUNTS INCLUDE 234 BEDS AT THE [facility] Intake and Output 03/16/22 03/17/22 03/17/22 22:59 06:59 14:59 Intake Total 59.196 Output Total 310 Balance -310 59.196 Intake: Intake, IV Titration 59.196 Amount Heparin Sod,Pork in 0.45% 59.196 NaCl 25,000 unit In 0.45 % NaCl 1 250ml.bag @ 9.59 UNITS/KG/HR 10.005 mls/ hr IV .Q24H COUNTS INCLUDE 234 BEDS AT THE [facility] Rx#: [id number] Output: Urine 310 03/17/22 03:35 03/17/22 03:35
[2022-03-17] MEDS: ATORVASTATIN 80 MG TAB PO SCH (08:55)
[2022-03-17] MEDS: ZINC SULFATE 220 MG CAP PO SCH (08:55)
[2022-03-17] MEDS: ASCORBIC ACID 500 MG TAB PO SCH (08:55)
[2022-03-17] MEDS: CHOLECALCIFEROL 125 MCG (5000 IU) TABLET PO SCH (08:56)
[2022-03-17] MEDS ORDERED: ASPIRIN 81 MG PO SCH (09:00)
[2022-03-17 09:05] LABS: Partial Thromboplastin Time 52.4 sec (22.0-30.0)
[2022-03-17 14:36] LABS: Glucose,Whole Blood 336 mg/dL (75-99)
--- NOTE | 2022-03-17 14:38 | P.PN ---
Subjective Progress Note Date: 03/17/22 Hospital course: Patient is a a very pleasant 76-year-old male with a past medical history of CAD status post quadruple bypass, chronic systolic heart failure, insulin-dependent diabetes mellitus, and dementia. Patient presented to the emergency department on 03/16/22 with a chief complaint of alteration in mental status, shortness of breath, cough and congestion after testing positive for Covid 19 virus infection 2 days prior. Patient underwent full evaluation in the emergency department. Labs were completed, CBC unremarkable. BMP revealing mild hyperglycemia with glucose of 248 and an elevated bili of 2.3. Troponin was elevated at 0.495 and CRP also elevated at 14.4. ProBNP 1600. Urinalysis negative for infection and Covid PCR positive. Chest x-ray revealing chronic changes and mild cardiomegaly with new small bilateral pleural effusions. CT head negative for acute intracranial abnormality, revealing cerebral atrophy and chronic small vessel ischemia with old lacunar infarcts in the periventricular white matter with some progression compared to previous examination. CT cervical spine negative for acute abnormalities. CT abdomen and pelvis revealing mild bilateral pleural effusions with mild basal or atelectasis and a hiatal hernia. EKG showing normal sinus rhythm at [address] depression in leads I, II, and aVL and mild elevation in V1 and V2. Patient diagnosed as NSTEMI and started on heparin infusion. He was admitted under our services with consultation to cardiology. Throughout the night troponins remained elevated at 0.495, 0.475, and 0.431. D- dimer elevated at 0.69. Order placed for CT PE and echocardiogram pending. Physical exam: Patient was seen and fully evaluated at bedside this morning. Patient was resting comfortably and easily awoken via verbal stimuli. Patient alert to person, place, and situation. Patient confused to time. Patient reports that he lives at home with his daughter and was fine up until a couple days ago when he was diagnosed with "that virus." Patient reports since diagnosis he has been experiencing shortness of breath, cough, and a lot of phlegm. Patient denies having any chest pain or palpitations and denies having any headache, lightheadedness, dizziness, or experiencing any numbness/tingling/weakness in his extremities. D-dimer was elevated at 0.69, orders placed for CT PE an echoc ardiogram at this time. Vital signs reviewed and stable. General: Nontoxic, no distress and appears stated age. Derm: Skin warm and dry, normal coloration for ethnicity. Patient has an ulcer to plantar surface of left foot directly beneath great toe. Head: Atraumatic, normocephalic and symmetric. Eyes: EOMs intact, no lid lag, and anicteric sclera Mouth: no lip lesions, mucus membranes moist Cardiovascular: regular rate and rhythm with normal S1S2, no murmur, positive posterior tibial pulses bilaterally, and cap refill < 2 seconds. Lungs: Respirations even, regular, and unlabored on room air. Lungs diminished bilaterally, No rhonchi, no rales, no wheezing, and no accessory muscle usage. Abdominal: Obese abdomen soft, nontender to palpation, no guarding, no appreciable organomegaly Ext: ROM intact. No gross muscle atrophy, no edema, no contractures Neuro: GCS 14. Speech clear, face symmetrical and CN II-XII grossly intact with no noted focal neuro deficits Psych: Alert and oriented to person, place, and situation. Confused to time. Appropriate and pleasant affect. Baseline mentation per patient's daughterMedina Assessment and Plan of Care: NSTEMI History of CAD status post quadruple bypass Chronic systolic heart failure -Cardiology consult, appreciate further recommendations -Continuation of heparin infusion per ACS protocol for NSTEMI -Telemetry monitoring -Cardiac diet, NPO at midnight -Aspirin, atorvastatin, and metoprolol -Lipid profile with a.m. labs. -Echocardiogram to be completed COVID 19 pneumonitis Acute metabolic encephalopathy in patient with underlying dementia, likely secondary to Covid 19 virus infection in addition to NSTEMI -Oxygenation to be administered and titrated as needed to maintain SPO2 equal to or greater than 90% -Telemetry monitoring. -Continue trending inflammatory markers -Encourage Incentive Spirometry 10-15x hourly while awake -Steroids: Decadron 6 mg daily -Continue vitamin C, Vitamin D, and Zinc. -DVT prophylaxis with heparin infusion -Strict Droplet plus Contact precautions Insulin-dependent diabetes mellitus -Continue daily medication regimen with Levemir [address] patient on glycemic protocol with NovoLog sliding scale. Dementia -Continue daily medication regimen with Aricept and Elavil -Provide safe and supportive care and redirection as needed. -Fall precautions CODE STATUS: Full code DVT prophylaxis: Heparin Discussed with: Patient and RN and called and updated patient's daughter at 2 PM Anticipated discharge date: Clinical course to determine Anticipated discharge place: Home with daughter versus SNF A total of 40 minutes was spent on the care of this complex patient more than 50% of the time was spent in counseling and care coordination. I reviewed the documentation as provided by the SUSAN above, who is the original author of this note. I agree with the documented assessment and plan, with the following changes: None Objective - Vital Signs Vital signs: Vital Signs Temp 98.3 F 03/17/22 08:00 Pulse 90 03/17/22 08:00 Resp 18 03/17/22 08:00 BP 152/88 03/17/22 08:00 Pulse Ox 96 03/17/22 08:00 Intake & Output 03/16/22 03/17/22 03/17/22 18:59 06:59 18:59 Intake Total 59.196 Output Total 310 Balance -250.804 Weight 104.326 kg Intake: Intake, IV Titration 59.196 Amount Heparin Sod,Pork in 0.45% 59.196 NaCl 25,000 unit In 0.45 % NaCl 1 250ml.bag @ 9.59 UNITS/KG/HR 10.005 mls/ hr IV .Q24H [facility] Rx#: [id number] Output: Urine 310 - Labs CBC & Chem 7: 03/17/22 03:35 03/17/22 03:35 Labs: Abnormal Lab Results - Last 24 Hours (Table) 03/16/22 03/16/22 03/16/22 Range/Units 12:34 18:33 18:43 Hgb (13.0-17.5) gm/dL Lymphocytes # (1.0-4.8) k/uL APTT (22.0-30.0) sec Chloride (98-107) mmol/L Carbon Dioxide (22-30) mmol/L BUN 25 H (9-20) mg/dL Glucose 246 H (74-99) mg/dL POC Glucose (mg/dL) 237 H (75-99) mg/dL Calcium 8.0 L (8.4-10.2) mg/dL Total Bilirubin 2.0 H (0.2-1.3) mg/dL Lactate Dehydrogenase (313-618) U/L Troponin I (0.000-0.034) ng/mL C-Reactive Protein (<1.0) mg/dL Albumin (3.5-5.0) g/dL Urine Protein (Negative) Urine Glucose (UA) (Negative) Urine Blood (Negative) Hyaline Casts (0-2) /lpf Urine Mucus (None) /hpf Coronavirus (PCR) Detected A (Not Detectd) 03/16/22 03/16/22 03/16/22 Range/Units 18:43 19:15 21:58 Hgb (13.0-17.5) gm/dL Lymphocytes # (1.0-4.8) k/uL APTT (22.0-30.0) sec Chloride (98-107) mmol/L Carbon Dioxide (22-30) mmol/L BUN (9-20) mg/dL Glucose (74-99) mg/dL POC Glucose (mg/dL) (75-99) mg/dL Calcium (8.4-10.2) mg/dL Total Bilirubin (0.2-1.3) mg/dL Lactate Dehydrogenase 711 H (313-618) U/L Troponin I 0.495 H* (0.000-0.034) ng/mL C-Reactive Protein 14.4 H (<1.0) mg/dL Albumin (3.5-5.0) g/dL Urine Protein 2+ H (Negative) Urine Glucose (UA) 3+ H (Negative) Urine Blood Small H (Negative) Hyaline Casts 3 H (0-2) /lpf Urine Mucus Rare H (None) /hpf Coronavirus (PCR) (Not Detectd) 03/17/22 03/17/22 03/17/22 Range/Units 01:05 01:05 03:35 Hgb 12.9 L (13.0-17.5) gm/dL Lymphocytes # 0.7 L (1.0-4.8) k/uL APTT 59.8 H (22.0-30.0) sec Chloride (98-107) mmol/L Carbon Dioxide (22-30) mmol/L BUN (9-20) mg/dL Glucose (74-99) mg/dL POC Glucose (mg/dL) (75-99) mg/dL Calcium (8.4-10.2) mg/dL Total Bilirubin (0.2-1.3) mg/dL Lactate Dehydrogenase (313-618) U/L Troponin I 0.475 H* (0.000-0.034) ng/mL C-Reactive Protein (<1.0) mg/dL Albumin (3.5-5.0) g/dL Urine Protein (Negative) Urine Glucose (UA) (Negative) Urine Blood (Negative) Hyaline Casts (0-2) /lpf Urine Mucus (None) /hpf Coronavirus (PCR) (Not Detectd) 03/17/22 03/17/22 03/17/22 Range/Units 03:35 03:35 08:08 Hgb (13.0-17.5) gm/dL Lymphocytes # (1.0-4.8) k/uL APTT (22.0-30.0) sec Chloride 110 H (98-107) mmol/L Carbon Dioxide 19 L (22-30) mmol/L BUN (9-20) mg/dL Glucose 214 H (74-99) mg/dL POC Glucose (mg/dL) 248 H (75-99) mg/dL Calcium 8.1 L (8.4-10.2) mg/dL Total Bilirubin 2.3 H (0.2-1.3) mg/dL Lactate Dehydrogenase (313-618) U/L Troponin I 0.431 H* (0.000-0.034) ng/mL C-Reactive Protein (<1.0) mg/dL Albumin 3.3 L (3.5-5.0) g/dL Urine Protein (Negative) Urine Glucose (UA) (Negative) Urine Blood (Negative) Hyaline Casts (0-2) /lpf Urine Mucus (None) /hpf Coronavirus (PCR) (Not Detectd)
[2022-03-17 16:58] LABS: Glucose,Whole Blood 337 mg/dL (75-99)
[2022-03-17] MEDS: HEPARIN SOD,PORK IN 0.45% NACL 25,000 UNIT in 0.45% NACL 1 250ML.BAG IV SCH (17:21)
[2022-03-17 20:11] LABS: Glucose,Whole Blood 291 mg/dL (75-99)
[2022-03-17] MEDS: traMADol 50 MG TAB PO SCH (21:18)
[2022-03-17] MEDS: AMITRIPTYLINE HCL 25 MG TAB PO SCH (21:19)
[2022-03-17] MEDS: DONEPEZIL 10 MG TAB PO SCH (21:19)
[2022-03-17] MEDS: GABAPENTIN 300 MG CAP PO SCH (21:19)
[2022-03-17] MEDS: amLODIPine 10 MG TAB PO SCH (21:19)
--- NOTE | 2022-03-17 22:24 | CT ---
EXAMINATION TYPE: CT chest angio for PE DATE OF EXAM: 03/17/2022 COMPARISON: None HISTORY: Covid-19, elevated d-dimer CT DLP: 761.8 mGycm Automated exposure control for dose reduction was used. CONTRAST: Performed with IV Contrast, patient injected with 77ml mL of Isovue 370. Images obtained from the thoracic inlet to the diaphragm with IV contrast and Three-D postprocessed i mages. There are eawa-vx-niberwft bilateral pleural effusions. Heart appears enlarged. No pericardial effusi on. There is no evidence of filling defect in the pulmonary arteries. There are bilateral bronchial l ymph nodes up to 1 cm. There are a few paratracheal lymph nodes up to 1 cm. Thoracic aorta is atherom atous. 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 No dissection. There is some spurring in the thoracic spine. No compression fracture. Sternum is intact. There are sternal wires. Upper abdominal soft tissues are intact. IMPRESSION: No evidence of pulmonary embolism. Pleural effusions with basilar atelectasis could relate to chronic congestive heart failure. Mild aneurysm of the ascending aorta.
[2022-03-18] MEDS: dexAMETHasone 2 MG TAB PO SCH (01:37)
[2022-03-18] MEDS: SODIUM CHLORIDE 0.9% 1,000 ML IV SCH ×2 (01:42→16:53)
[2022-03-18 06:31] LABS: Glucose,Whole Blood 324 mg/dL (75-99)
[2022-03-18] MEDS: INSULIN ASPART (NovoLOG) 100 UNIT/ML VIAL SQ SCH ×4 (06:40→20:48)
--- NOTE | 2022-03-18 07:05 | CA ---
Transthoracic Echo Report Name: Tim Coleman Age: 76 Gender: M : 1945 Exam Date: 03/17/2022 14:35 Exam Location: [facility] Ht (in): 67 Wt (lb): 230 Ordering Physician: Bacilio Perrin Attending/Referring Phys: Director Process Improvement Rama Pacheco RDCS Procedure CPT: Indications: NSTEMI, assess function and structure of heart Cardiac Hx: REASON FOR VISIT: GENERALIZED WEAKNESS: PT HAS DEMENTIA, COVID Technical Quality: Contrast 1: Lumason Total Dose (mL): 1 Contrast 2: Total Dose (mL): MEASUREMENTS (Male / Female) Normal Values 2D ECHO LV Diastolic Diameter PLAX 5.5 cm 4.2 - 5.9 / 3.9 - 5.3 cm LV Systolic Diameter PLAX 4.9 cm IVS Diastolic Thickness 1.3 cm 0.6 - 1.0 / 0.6 - 0.9 cm LVPW Diastolic Thickness 1.0 cm 0.6 - 1.0 / 0.6 - 0.9 cm LV Relative Wall Thickness 0.4 RV Internal Dim ED PLAX 3.2 cm LA Systolic Diameter LX 4.3 cm 3.0 - 4.0 / 2.7 - 3.8 cm DOPPLER AV Peak Velocity 378.3 cm/s AV Peak Gradient 57.2 mmHg AV Mean Velocity 313.0 cm/s AV Mean Gradient 40.8 mmHg AV Velocity Time Integral 75.1 cm FINDINGS Left Ventricle Left ventricular ejection fraction is estimated at 50-55 %. Right Ventricle Right ventricle not well visualized. Right Atrium Right atrium not well visualized. Left Atrium Left atrial dilatation. Mitral Valve Mitral valve not well visualized. Aortic Valve Aortic valve not well visualized. Aaxogvxz-fh-sxavls aortic stenosis with a peak gradient of 59 mmHg and a mean gradient of 40 mmHg. Tricuspid Valve Tricuspid valve not well visualized. Pulmonic Valve Pulmonic valve not well visualized. Pulmonic valve not well visualized. Pulmonic valve not well visualized. Pericardium Aorta CONCLUSIONS Technically difficult and suboptimal study. Systolic function is normal there appears to be concentric LVH. That is moderate to severe aortic stenosis. Rest of Doppler exam was suboptimal could not interpret. Previewed by: Dr. Billy Branch MD (Electronically Signed) Final Date: 18 March 2022 07:04
[2022-03-18] MEDS: PANTOPRAZOLE 40 MG TABLET PO SCH (09:58)
[2022-03-18] MEDS: ATORVASTATIN 80 MG TAB PO SCH (09:58)
[2022-03-18] MEDS: ASCORBIC ACID 500 MG TAB PO SCH (09:58)
[2022-03-18] MEDS: CLOPIDOGREL 75 MG TAB PO SCH (09:58)
[2022-03-18] MEDS: TAMSULOSIN 0.4 MG CAP.ER.24H PO SCH (09:58)
[2022-03-18] MEDS: CHOLECALCIFEROL 125 MCG (5000 IU) TABLET PO SCH (09:58)
[2022-03-18] MEDS: METOPROLOL SUCCINATE (ER) 50 MG TAB.ER.24H PO SCH (09:59)
[2022-03-18] MEDS: ZINC SULFATE 220 MG CAP PO SCH (09:59)
[2022-03-18] MEDS: lisinopriL 10 MG TAB PO SCH (09:59)
[2022-03-18] MEDS: ASPIRIN 81 MG PO SCH (09:59)
[2022-03-18] MEDS: traMADol 50 MG TAB PO SCH ×2 (09:59→20:45)
[2022-03-18] MEDS: GABAPENTIN 300 MG CAP PO SCH ×2 (09:59→20:46)
--- NOTE | 2022-03-18 10:02 | P.PN ---
Subjective Progress Note Date: 03/18/22 Hospital course: Patient is a a very pleasant 76-year-old male with a past medical history of CAD status post quadruple bypass, chronic systolic heart failure, insulin-dependent diabetes mellitus, and dementia. Patient presented to the emergency department on 03/16/22 with a chief complaint of alteration in mental status, shortness of breath, cough and congestion after testing positive for Covid 19 virus infection 2 days prior. Patient underwent full evaluation in the emergency department. Labs were completed, CBC unremarkable. BMP revealing mild hyperglycemia with glucose of 248 and an elevated bili of 2.3. Troponin was elevated at 0.495 and CRP also elevated at 14.4. ProBNP 1600. Urinalysis negative for infection and Covid PCR positive. Chest x-ray revealing chronic changes and mild cardiomegaly with new small bilateral pleural effusions. CT head negative for acute intracranial abnormality, revealing cerebral atrophy and chronic small vessel ischemia with old lacunar infarcts in the periventricular white matter with some progression compared to previous examination. CT cervical spine negative for acute abnormalities. CT abdomen and pelvis revealing mild bilateral pleural effusions with mild basal or atelectasis and a hiatal hernia. EKG showing normal sinus rhythm at [address] depression in leads I, II, and aVL and mild elevation in V1 and V2. Patient diagnosed as NSTEMI and started on heparin infusion. He was admitted under our services with consultation to cardiology. Throughout the night troponins remained elevated at 0.495, 0.475, and 0.431. D- dimer elevated at 0.69. 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 Echocardiogram reported to be a suboptimal study but did reveal moderate to severe aortic stenosis with an EF of 50-55%. Physical exam: Patient was seen and fully evaluated at bedside this morning. Patient was rest ing comfortably and easily awoken via verbal stimuli. Patient remains alert to person, place, and situation and remains confused to time. He reports he is having "a lot of mucus congestion" but states unable to get any out. Will place orders for Mucinex. Morning labs reveal elevated LDH 166 and CRP 13.5. Having noted hyperglycemia, possibly secondary to current infection however patient did miss dose of Levemir yesterday. We will continue with scheduled 56 units of Levemir with lunch along with NovoLog sliding scale at this time. Patientcontinues to deny experiencing any chest pain or palpitations and denies having any headache, lightheadedness, dizziness, or experiencing any numbnes s/tingling/weakness in his extremities. Vital signs reviewed and stable. General: Nontoxic, no distress and appears stated age. Derm: Skin warm and dry, normal coloration for ethnicity. Patient has an ulcer to plantar surface of left foot directly beneath great toe. Head: Atraumatic, normocephalic and symmetric. Eyes: EOMs intact, no lid lag, and anicteric sclera Mouth: no lip lesions, mucus membranes moist Cardiovascular: regular rate and rhythm with normal S1S2, systolic murmur, positive posterior tibial pulses bilaterally, and cap refill < 2 seconds. Lungs: Respirations even, regular, and unlabored on room air. Lungs diminished bilaterally, No rhonchi, no rales, no wheezing, and no accessory muscle usage. Abdominal: Obese abdomen soft, nontender to palpation, no guarding, no appreciable organomegaly Ext: ROM intact. No gross muscle atrophy, no edema, no contractures Neuro: GCS 14. Speech clear, face symmetrical and CN II-XII grossly intact with no noted focal neuro deficits Psych: Alert and oriented to person, place, and situation. Confused to time. Appropriate and pleasant affect. Baseline mentation per patient's daughterMedina Assessment and Plan of Care: NSTEMI History of CAD status post quadruple bypass Aortic stenosis -Cardiology following, appreciate further recommendations -Continuation of heparin infusion per ACS protocol for NSTEMI -Telemetry monitoring -Cardiac diet -Continue daily cardiac medication regimen with Aspirin, atorvastatin, lisinopr il, Plavix, and metoprolol -Echocardiogram reported to be a suboptimal study but did reveal moderate to severe aortic stenosis with an EF of 50-55%. COVID 19 pneumonitis Acute metabolic encephalopathy in patient with underlying dementia, likely secondary to Covid 19 virus infection in addition to NSTEMI -Oxygenation to be administered and titrated as needed to maintain SPO2 equal to or greater than 90% -Telemetry monitoring. -Continue trending inflammatory markers -Encourage Incentive Spirometry 10-15x hourly while awake -Steroids: Decadron 6 mg daily -Continue vitamin C, Vitamin D, and Zinc. -DVT prophylaxis with heparin infusion -Strict Droplet plus Contact precautions Insulin-dependent diabetes mellitus -Continue daily medication regimen with Levemir [address] patient on glycemic protocol with NovoLog sliding scale. Dementia -Continue daily medication regimen with Aricept and Elavil -Provide safe and supportive care and redirection as needed. -Fall precautions CODE STATUS: Full code DVT prophylaxis: Heparin Discussed with: Patient and RN and called and updated patient's daughter at 2 PM Anticipated discharge date: Clinical course to determine Anticipated discharge place: Home with daughter versus SNF A total of 40 minutes was spent on the care of this complex patient more than 50% of the time was spent in counseling and care coordination. Objective - Vital Signs Vital signs: Vital Signs Temp 98 F 03/18/22 04:00 Pulse 83 03/18/22 04:00 Resp 18 03/18/22 04:00 BP 171/77 03/18/22 04:00 Pulse Ox 96 03/18/22 04:00 Intake & Output 03/17/22 03/18/22 03/18/22 18:59 06:59 18:59 Intake Total 358.739 220 Output Total 100 Balance 358.739 -100 220 Weight 104.326 kg Intake: Intake, IV Titration 144.739 Amount Heparin Sod,Pork in 0.45% 144.739 NaCl 25,000 unit In 0.45 % NaCl 1 250ml.bag @ 9.59 UNITS/KG/HR 10.005 mls/ hr IV .Q24H [facility] Rx#: [id number] Oral 214 220 Output: Urine 100 Other: Voiding Method Urinal # Voids 2 - Labs CBC & Chem 7: 03/18/22 10:05 03/18/22 10:05 Labs: Abnormal Lab Results - Last 24 Hours (Table) 03/16/22 03/17/22 03/17/22 Range/Units 19:15 03:35 14:34 POC Glucose (mg/dL) 336 H (75-99) mg/dL Hemoglobin A1c 7.4 H (0.0-6.0) % Procalcitonin 0.26 H (0.02-0.09) ng/mL 03/17/22 03/17/22 03/18/22 Range/Units 16:57 20:08 06:30 POC Glucose (mg/dL) 337 H 291 H 324 H (75-99) mg/dL Hemoglobin A1c (0.0-6.0) % Procalcitonin (0.02-0.09) ng/mL Microbiology - Last 24 Hours (Table) 03/16/22 21:05 Blood Culture - Preliminary Blood No Growth after 24 hours 03/16/22 20:53 Blood Culture - Preliminary Blood No Growth after 24 hours
[2022-03-18 10:27] LABS: HCT 40.5 % (39.0-53.0); HGB 12.7 gm/dL (13.0-17.5); Hypochromasia Slight; MCH 27.8 pg (25.0-35.0); MCHC 31.3 g/dL (31.0-37.0); MCV 88.7 fL (80.0-100.0); Mean Platelet Volume 7.4; Platelet Count 176 k/uL (150-450); RBC 4.57 m/uL (4.30-5.90); RDW 13.8 % (11.5-15.5); WBC 3.8 k/uL (3.8-10.6)
[2022-03-18 11:12] LABS: ALT 25 U/L (4-49); AST 38 U/L (17-59); African American GFR (CKD) >90 (>60 ml/min/1.73 sqM); Albumin 3.1 g/dL (3.5-5.0); Alkaline Phosphatase 93 U/L (38-126); Anion Gap 8 mmol/L; Blood Urea Nitrogen 17 mg/dL (9-20); Calcium 7.8 mg/dL (8.4-10.2); Carbon Dioxide 20 mmol/L (22-30); Chloride 108 mmol/L (98-107); Glucose 390 mg/dL (74-99); LDH 666 U/L (313-618); Magnesium 2.3 mg/dL (1.6-2.3); Non-African American GFR(CKD) 82 (>60 ml/min/1.73 sqM); Potassium 4.8 mmol/L (3.5-5.1); Sodium 136 mmol/L (137-145); Total Bilirubin 1.6 mg/dL (0.2-1.3); Total Protein 6.4 g/dL (6.3-8.2)
[2022-03-18 11:49] LABS: Glucose,Whole Blood 415 mg/dL (75-99)
[2022-03-18 11:53] LABS: C Reactive Protein 13.5 mg/dL (<1.0)
[2022-03-18] MEDS ORDERED: INSULIN DETEMIR (LEVEMIR) 100 UNIT/ML SYR SQ SCH (12:30)
--- NOTE | 2022-03-18 12:47 | P.PN ---
Subjective Progress Note Date: 03/18/22 CHIEF COMPLAINT: Abnormal troponins HISTORY OF PRESENT ILLNESS: 76-year-old gentleman with history of coronary artery disease status post CABG chronic systolic heart failure diabetes and dementia is admitted to hospital with altered mental status. Patient has tested positive for cold with 2 days ago. He has had episodes of falls. Somewhat short of breath apparently hypotensive and had elevated heart rate. He lives mostly independently and his daughter checks on him daily. He has had episodes of incontinence. I have been consulted because of elevated troponin. At the time of my evaluation in the emergency room he denies chest pain difficulty in breathing. Appears very comfortable at rest. His troponin is 0.495 and 0.4. Troponins have been flat. In EKG shows sinus rhythm first-degree AV block and poor R-wave progression. Given the recent c coronavirus infection is not a candidate for invasive procedures at this time. The exact etiology for elevated troponins is unclear could be related to the systemic illness. He could have had a small non-ST segment elevation DC. I will obtain a 2-D echo to assess LV function and wall motion. I will check a d-dimer to rule out pulmonary embolism given the recent history of coronavirus infection. 03/18/2022 Patient examined this morning at the bedside. Patient denies chest pain or pressure. He denies shortness of breath. Vital signs are stable. Pressure is elevated this morning with a systolic in the [id number]. Echocardiogram completed revealing ejection fraction 50-55% with moderate to severe aortic stenosis. PHYSICAL EXAM: Thorough physical exam not completed secondary to limited evaluation/examination due to Covid19 ASSESSMENT: Covid 19 Abnormal troponins, flat, may be secondary to above CAD with previous CABG Dementia Aortic stenosis PLAN: Discontinue IV heparin Continue additional cardiac medications Increase lisinopril to 10 mg daily for optimal blood pressure control We will follow as needed. Please call with questions or concerns. Nurse practitioner note has been reviewed by physician. Signing provider agrees with the documented findings, assessment, and plan of care. Objective - Vital Signs Vital signs: Vital Signs Temp 98 F 03/18/22 04:00 Pulse 83 03/18/22 04:00 Resp 18 03/18/22 09:55 BP 171/77 03/18/22 04:00 Pulse Ox 96 03/18/22 04:00 Intake & Output 03/17/22 03/18/22 03/18/22 18:59 06:59 18:59 Intake Total 358.739 220 Output Total 100 Balance 358.739 -100 220 Weight 104.326 kg Intake: Intake, IV Titration 144.739 Amount Heparin Sod,Pork in 0.45% 144.739 NaCl 25,000 unit In 0.45 % NaCl 1 250ml.bag @ 9.59 UNITS/KG/HR 10.005 mls/ hr IV .Q24H [facility] Rx#: [id number] Oral 214 220 Output: Urine 100 Other: Voiding Method Urinal Urinal # Voids 2 - Labs CBC & Chem 7: 03/18/22 10:05 03/18/22 10:05 Labs: Abnormal Lab Results - Last 24 Hours (Table) 03/16/22 03/17/22 03/17/22 Range/Units 19:15 14:34 16:57 Hgb (13.0-17.5) gm/dL Sodium (137-145) mmol/L Chloride (98-107) mmol/L Carbon Dioxide (22-30) mmol/L Glucose (74-99) mg/dL POC Glucose (mg/dL) 336 H 337 H (75-99) mg/dL Calcium (8.4-10.2) mg/dL Total Bilirubin (0.2-1.3) mg/dL Lactate Dehydrogenase (313-618) U/L C-Reactive Protein (<1.0) mg/dL Albumin (3.5-5.0) g/dL Procalcitonin 0.26 H (0.02-0.09) ng/mL 03/17/22 03/18/22 03/18/22 Range/Units 20:08 06:30 10:05 Hgb 12.7 L (13.0-17.5) gm/dL Sodium (137-145) mmol/L Chloride (98-107) mmol/L Carbon Dioxide (22-30) mmol/L Glucose (74-99) mg/dL POC Glucose (mg/dL) 291 H 324 H (75-99) mg/dL Calcium (8.4-10.2) mg/dL Total Bilirubin (0.2-1.3) mg/dL Lactate Dehydrogenase (313-618) U/L C-Reactive Protein (<1.0) mg/dL Albumin (3.5-5.0) g/dL Procalcitonin (0.02-0.09) ng/mL 03/18/22 03/18/22 Range/Units 10:05 11:46 Hgb (13.0-17.5) gm/dL Sodium 136 L (137-145) mmol/L Chloride 108 H (98-107) mmol/L Carbon Dioxide 20 L (22-30) mmol/L Glucose 390 H (74-99) mg/dL POC Glucose (mg/dL) 415 H (75-99) mg/dL Calcium 7.8 L (8.4-10.2) mg/dL Total Bilirubin 1.6 H (0.2-1.3) mg/dL Lactate Dehydrogenase 666 H (313-618) U/L C-Reactive Protein 13.5 H (<1.0) mg/dL Albumin 3.1 L (3.5-5.0) g/dL Procalcitonin (0.02-0.09) ng/mL Microbiology - Last 24 Hours (Table) 03/16/22 21:05 Blood Culture - Preliminary Blood No Growth after 24 hours 03/16/22 20:53 Blood Culture - Preliminary Blood No Growth after 24 hours
[2022-03-18 16:29] LABS: Glucose,Whole Blood 479 mg/dL (75-99)
[2022-03-18 16:33] LABS: Glucose,Whole Blood 464 mg/dL (75-99)
[2022-03-18] MEDS: ENOXAPARIN 40 MG/0.4 ML SYRINGE SQ SCH (16:50)
[2022-03-18] MEDS ORDERED: INSULIN ASPART (NovoLOG) 100 UNIT/ML VIAL SQ ONE (17:00)
[2022-03-18 20:12] LABS: Glucose,Whole Blood 328 mg/dL (75-99)
[2022-03-18] MEDS: guaiFENesin 600 MG TABLET.ER PO SCH (20:46)
[2022-03-18] MEDS: amLODIPine 10 MG TAB PO SCH (20:47)
[2022-03-18] MEDS: DONEPEZIL 10 MG TAB PO SCH (20:47)
[2022-03-18] MEDS: AMITRIPTYLINE HCL 25 MG TAB PO SCH (20:47)
[2022-03-19] MEDS: dexAMETHasone 2 MG TAB PO SCH (01:05)
[2022-03-19 06:33] LABS: Glucose,Whole Blood 338 mg/dL (75-99)
[2022-03-19] MEDS: INSULIN ASPART (NovoLOG) 100 UNIT/ML VIAL SQ SCH ×6 (06:38→21:37)
[2022-03-19] MEDS: SODIUM CHLORIDE 0.9% 1,000 ML IV SCH (06:40)
[2022-03-19] MEDS ORDERED: lisinopriL 10 MG TAB PO SCH (09:00)
[2022-03-19] MEDS: ZINC SULFATE 220 MG CAP PO SCH (09:19)
[2022-03-19] MEDS: GABAPENTIN 300 MG CAP PO SCH ×2 (09:19→21:36)
[2022-03-19] MEDS: PANTOPRAZOLE 40 MG TABLET PO SCH (09:19)
[2022-03-19] MEDS: TAMSULOSIN 0.4 MG CAP.ER.24H PO SCH (09:19)
[2022-03-19] MEDS: traMADol 50 MG TAB PO SCH ×2 (09:19→21:36)
[2022-03-19] MEDS: ASCORBIC ACID 500 MG TAB PO SCH (09:20)
[2022-03-19] MEDS: guaiFENesin 600 MG TABLET.ER PO SCH ×2 (09:20→21:37)
[2022-03-19] MEDS: CLOPIDOGREL 75 MG TAB PO SCH (09:20)
[2022-03-19] MEDS: CHOLECALCIFEROL 125 MCG (5000 IU) TABLET PO SCH (09:20)
[2022-03-19] MEDS: lisinopriL 10 MG TAB PO SCH (09:20)
[2022-03-19] MEDS: ENOXAPARIN 40 MG/0.4 ML SYRINGE SQ SCH (09:20)
[2022-03-19] MEDS: METOPROLOL SUCCINATE (ER) 50 MG TAB.ER.24H PO SCH (09:20)
[2022-03-19] MEDS: ATORVASTATIN 80 MG TAB PO SCH (09:20)
[2022-03-19] MEDS: ASPIRIN 81 MG PO SCH (09:20)
[2022-03-19 11:58] LABS: Glucose,Whole Blood 426 mg/dL (75-99)
[2022-03-19] MEDS: INSULIN DETEMIR (LEVEMIR) 100 UNIT/ML SYR SQ SCH (13:17)
[2022-03-19 16:47] LABS: Glucose,Whole Blood 491 mg/dL (75-99)
--- NOTE | 2022-03-19 17:02 | P.PN ---
Subjective Progress Note Date: 03/19/22 Hospital course: Patient is a a very pleasant 76-year-old male with a past medical history of CAD status post quadruple bypass, chronic systolic heart failure, insulin-dependent diabetes mellitus, and dementia. Patient presented to the emergency department on 03/16/22 with a chief complaint of alteration in mental status, shortness of breath, cough and congestion after testing positive for Covid 19 virus infection 2 days prior. Patient underwent full evaluation in the emergency department. Labs were completed, CBC unremarkable. BMP revealing mild hyperglycemia with glucose of 248 and an elevated bili of 2.3. Troponin was elevated at 0.495 and CRP also elevated at 14.4. ProBNP 1600. Urinalysis negative for infection and Covid PCR positive. Chest x-ray revealing chronic changes and mild cardiomegaly with new small bilateral pleural effusions. CT head negative for acute intracranial abnormality, revealing cerebral atrophy and chronic small vessel ischemia with old lacunar infarcts in the periventricular white matter with some progression compared to previous examination. CT cervical spine negative for acute abnormalities. CT abdomen and pelvis revealing mild bilateral pleural effusions with mild basal or atelectasis and a hiatal hernia. EKG showing normal sinus rhythm at [address] depression in leads I, II, and aVL and mild elevation in V1 and V2. Patient diagnosed as NSTEMI and started on heparin infusion. He was admitted under our services with consultation to cardiology. Throughout the night troponins remained elevated at 0.495, 0.475, and 0.431. D- dimer elevated at 0.69. 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 Echocardiogram reported to be a suboptimal study but did reveal moderate to severe aortic stenosis with an EF of 50-55%. Cardiology discontinued IV heparin and increase lisinopril to 10 mg daily for optimal blood pressure control. Cardiology clearing patient from cardiac standpoint for follow-up outpatient. Patient has been having persistent hyperglycemia throughout hospitalization possibly secondary to prednisone versus current infection with Covid 19 virus. Adjustments made to insulin management. Will continue to monitor. Plans for discharge home with home care tomorrow morning pending control of blood glucose levels. Physical exam: Patient was seen and fully evaluated at bedside this morning. Patient resting comfortably in bed. Mentation unchanged. Patient reports he is feeling slightly better and has been ambulating with physical therapy. He denies having any headache, lightheadedness, dizziness, chest pain, palpitations, or shortness of breath. Patient does report having continued cough but states it has improved. Plan is for discharge home with home care. Patient has been having e pisodes of hyperglycemia with blood glucose levels 300 to 400s. In addition to sliding scale, patient was placed on NovoLog fixed dose 3 units with meals and Levemir increased to 60 units daily. Pending blood glucose control, patient likely to be discharged home with home care tomorrow morning. Vital signs reviewed and stable. General: Nontoxic, no distress and appears stated age. Derm: Skin warm and dry, normal coloration for ethnicity. Patient has an ulcer to plantar surface of left foot directly beneath great toe. Head: Atraumatic, normocephalic and symmetric. Eyes: EOMs intact, no lid lag, and anicteric sclera Mouth: no lip lesions, mucus membranes moist Cardiovascular: regular rate and rhythm with normal S1S2, systolic murmur, positive posterior tibial pulses bilaterally, and cap refill < 2 seconds. Lungs: Respirations even, regular, and unlabored on room air. Lungs diminished bilaterally, No rhonchi, no rales, no wheezing, and no accessory muscle usage. Abdominal: Obese abdomen soft, nontender to palpation, no guarding, no appreciable organomegaly Ext: ROM intact. No gross muscle atrophy, no edema, no contractures Neuro: GCS 14. Speech clear, face symmetrical and CN II-XII grossly intact with no noted focal neuro deficits Psych: Alert and oriented to person, place, and situation. Confused to time. Appropriate and pleasant affect. Baseline mentation per patient's daughterMedina Assessment and Plan of Care: NSTEMI History of CAD status post quadruple bypass Aortic stenosis -Cardiology following, cleared patient from cardiac standpoint recommending ou tpatient follow-up. -Heparin infusion discontinued, patient placed on Lovenox for DVT prophylaxis. -Telemetry monitoring -Cardiac diet -Continue daily cardiac medication regimen with Aspirin, atorvastatin, lisinopril, Plavix, and metoprolol -Echocardiogram reported to be a suboptimal study but did reveal moderate to severe aortic stenosis with an EF of 50-55%. COVID 19 pneumonitis Acute metabolic encephalopathy in patient with underlying dementia, likely secondary to Covid 19 virus infection in addition to NSTEMI -Oxygenation to be administered and titrated as needed to maintain SPO2 equal to or greater than 90%, currently on room air -Telemetry monitoring. -Continue trending inflammatory markers -Encourage Incentive Spirometry 10-15x hourly while awake -Steroids: Decadron 6 mg daily -Continue vitamin C, Vitamin D, and Zinc. -DVT prophylaxis with heparin infusion -Strict Droplet plus Contact precautions -Patient received Bebtelovimab in emergency department Hyperglycemia with Insulin-dependent diabetes mellitus -In addition to sliding scale, patient placed on fixed dose insulin NovoLog 3 units with each meal and Levemir increased to 60 units daily. Dementia -Continue daily medication regimen with Aricept and Elavil -Provide safe and supportive care and redirection as needed. -Fall precautions CODE STATUS: Full code DVT prophylaxis: Heparin Discussed with: Patient and RN and case management, updated patient's daughter on plan for discharge home with home care Anticipated discharge date: Likely tomorrow morning pending blood glucose control. Anticipated discharge place: Home with homecare A total of 35 minutes was spent on the care of this complex patient more than 50% of the time was spent in counseling and care coordination. Objective - Vital Signs Vital signs: Vital Signs Temp 97.9 F 03/19/22 09:17 Pulse 58 L 03/19/22 09:17 Resp 16 03/19/22 09:17 BP 116/58 03/19/22 09:17 Pulse Ox 96 03/19/22 09:17 Intake & Output 03/18/22 03/19/22 03/19/22 18:59 06:59 18:59 Intake Total 220 Balance 220 Weight 99.6 kg Intake: Oral 220 Other: Voiding Method Urinal Bedside Commode Bedside Commode Urinal Urinal # Voids 3 0 - Labs CBC & Chem 7: 03/18/22 10:05 03/18/22 10:05 Labs: Abnormal Lab Results - Last 24 Hours (Table) 03/18/22 03/18/22 03/18/22 Range/Units 10:05 11:46 16:28 Sodium 136 L (137-145) mmol/L Chloride 108 H (98-107) mmol/L Carbon Dioxide 20 L (22-30) mmol/L Glucose 390 H (74-99) mg/dL POC Glucose (mg/dL) 415 H 479 H (75-99) mg/dL Calcium 7.8 L (8.4-10.2) mg/dL Total Bilirubin 1.6 H (0.2-1.3) mg/dL Lactate Dehydrogenase 666 H (313-618) U/L C-Reactive Protein 13.5 H (<1.0) mg/dL Albumin 3.1 L (3.5-5.0) g/dL 03/18/22 03/18/22 03/19/22 Range/Units 16:31 20:11 06:31 Sodium (137-145) mmol/L Chloride (98-107) mmol/L Carbon Dioxide (22-30) mmol/L Glucose (74-99) mg/dL POC Glucose (mg/dL) 464 H 328 H 338 H (75-99) mg/dL Calcium (8.4-10.2) mg/dL Total Bilirubin (0.2-1.3) mg/dL Lactate Dehydrogenase (313-618) U/L C-Reactive Protein (<1.0) mg/dL Albumin (3.5-5.0) g/dL Microbiology - Last 24 Hours (Table) 03/16/22 21:05 Blood Culture - Preliminary Blood No Growth after 48 hours 03/16/22 20:53 Blood Culture - Preliminary Blood No Growth after 48 hours
[2022-03-19] MEDS ORDERED: INSULIN ASPART (NovoLOG) 100 UNIT/ML VIAL SQ ONE (17:19)
[2022-03-19 20:49] LABS: Glucose,Whole Blood 475 mg/dL (75-99)
[2022-03-19] MEDS: DONEPEZIL 10 MG TAB PO SCH (21:36)
[2022-03-19] MEDS: AMITRIPTYLINE HCL 25 MG TAB PO SCH (21:36)
[2022-03-19] MEDS: amLODIPine 10 MG TAB PO SCH (21:36)
[2022-03-19 23:41] LABS: Glucose,Whole Blood 375 mg/dL (75-99)
[2022-03-20] MEDS ORDERED: INSULIN ASPART (NovoLOG) 100 UNIT/ML VIAL SQ ONE (00:21)
[2022-03-20] MEDS: dexAMETHasone 2 MG TAB PO SCH (00:32)
[2022-03-20 02:35] LABS: Glucose,Whole Blood 293 mg/dL (75-99)
[2022-03-20 06:57] LABS: Glucose,Whole Blood 258 mg/dL (75-99)
[2022-03-20] MEDS: INSULIN ASPART (NovoLOG) 100 UNIT/ML VIAL SQ SCH ×6 (07:01→20:38)
[2022-03-20] MEDS: SODIUM CHLORIDE 0.9% 1,000 ML IV SCH (07:03)
[2022-03-20 09:00] LABS: HCT 34.7 % (39.0-53.0); HGB 11.4 gm/dL (13.0-17.5); Hypochromasia Slight; MCHC 32.8 g/dL (31.0-37.0); MCV 85.5 fL (80.0-100.0); Mean Platelet Volume 7.9; Platelet Count 194 k/uL (150-450); RBC 4.06 m/uL (4.30-5.90)
[2022-03-20 09:08] LABS: Potassium 4.4 mmol/L (3.5-5.1)
[2022-03-20 09:11] LABS: C Reactive Protein 3.4 mg/dL (<1.0); Magnesium 2.5 mg/dL (1.6-2.3); Total Bilirubin 0.9 mg/dL (0.2-1.3); Total Protein 6.2 g/dL (6.3-8.2)
[2022-03-20] MEDS: ENOXAPARIN 40 MG/0.4 ML SYRINGE SQ SCH (10:10)
[2022-03-20] MEDS: GABAPENTIN 300 MG CAP PO SCH ×2 (10:11→20:37)
[2022-03-20] MEDS: PANTOPRAZOLE 40 MG TABLET PO SCH (10:11)
[2022-03-20] MEDS: ZINC SULFATE 220 MG CAP PO SCH (10:11)
[2022-03-20] MEDS: ATORVASTATIN 80 MG TAB PO SCH (10:11)
[2022-03-20] MEDS: traMADol 50 MG TAB PO SCH ×2 (10:11→20:37)
[2022-03-20] MEDS: ASCORBIC ACID 500 MG TAB PO SCH (10:11)
[2022-03-20] MEDS: TAMSULOSIN 0.4 MG CAP.ER.24H PO SCH (10:11)
[2022-03-20] MEDS: METOPROLOL SUCCINATE (ER) 50 MG TAB.ER.24H PO SCH (10:11)
[2022-03-20] MEDS: lisinopriL 10 MG TAB PO SCH (10:11)
[2022-03-20] MEDS: CHOLECALCIFEROL 125 MCG (5000 IU) TABLET PO SCH (10:11)
[2022-03-20] MEDS: guaiFENesin 600 MG TABLET.ER PO SCH ×2 (10:12→20:38)
[2022-03-20] MEDS: CLOPIDOGREL 75 MG TAB PO SCH (10:12)
[2022-03-20] MEDS: ASPIRIN 81 MG PO SCH (10:12)
[2022-03-20] MEDS: metFORMIN 500 MG TAB PO SCH ×2 (10:18→18:26)
[2022-03-20 12:13] LABS: Glucose,Whole Blood 466 mg/dL (75-99)
[2022-03-20] MEDS ORDERED: INSULIN ASPART (NovoLOG) 100 UNIT/ML VIAL SQ SCH (12:30)
[2022-03-20] MEDS: INSULIN DETEMIR (LEVEMIR) 100 UNIT/ML SYR SQ SCH (12:54)
--- NOTE | 2022-03-20 16:51 | P.PN ---
Subjective Progress Note Date: 03/20/22 Principal diagnosis: hyperglycemia Patient is a a very pleasant 76-year-old male with a past medical history of CAD status post quadruple bypass, chronic systolic heart failure, insulin-dependent diabetes mellitus, and dementia. Patient presented to the emergency department on 03/16/22 with a chief complaint of alteration in mental status, shortness of breath, cough and congestion after testing positive for Covid 19 virus infection 2 days prior. Patient underwent full evaluation in the emergency department. Labs were completed, CBC unremarkable. BMP revealing mild hyperglycemia with glucose of 248 and an elevated bili of 2.3. Troponin was elevated at 0.495 and CRP also elevated at 14.4. ProBNP 1600. Urinalysis negative for infection and Covid PCR positive. Chest x-ray revealing chronic changes and mild cardiomegaly with new small bilateral pleural effusions. CT head negative for acute intracranial abnormality, revealing cerebral atrophy and chronic small vessel ischemia with old lacunar infarcts in the periventricular white matter with some progression compared to previous examination. CT cervical spine negative for acute abnormalities. CT abdomen and pelvis revealing mild bilateral pleural effusions with mild basal or atelectasis and a hiatal hernia. EKG showing normal sinus rhythm at [address] depression in leads I, II, and aVL and mild elevation in V1 and V2. Patient diagnosed as NSTEMI and started on heparin infusion. He was admitted under our services with consultation to cardiology. Throughout the night troponins remained elevated at 0.495, 0.475, and 0.431. D- dimer elevated at 0.69. 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 Echocardiogram reported to be a suboptimal study but did reveal moderate to severe aortic stenosis with an EF of 50-55%. Cardiology discontinued IV heparin and increase lisinopril to 10 mg daily for optimal blood pressure control. Cardiology clearing patient from cardiac standpoint for follow-up outpatient. Patient has been having persistent hyperglycemia throughout hospitalization possibly secondary to steriods therapy. 03/20/2022: Patient continues to have significant hyperglycemia. Further insulin titration made today. An attempt to control patient's blood sugars. Patient continues to complain of cough and congestion. He is not having any significant shortness of breath Objective - Vital Signs Vital signs: Vital Signs Temp 98.0 F 03/20/22 12:00 Pulse 60 03/20/22 14:00 Resp 20 03/20/22 14:00 BP 141/68 03/20/22 12:00 Pulse Ox 97 03/20/22 12:00 Intake & Output 03/19/22 03/20/22 03/20/22 18:59 06:59 18:59 Intake Total 1920 720 Output Total 600 Balance 1320 720 Weight 101.4 kg Intake: Oral 1920 720 Output: Urine 600 Other: Voiding Method Bedside Commode Bedside Commode Bedside Commode Urinal Urinal Urinal # Voids 2 1 - Exam General: Nontoxic, no distress and appears stated age. Derm: Skin warm and dry, normal coloration for ethnicity. Patient has an ulcer to plantar surface of left foot directly beneath great toe. Head: Atraumatic, normocephalic and symmetric. Eyes: EOMs intact, no lid lag, and anicteric sclera Mouth: no lip lesions, mucus membranes moist Cardiovascular: regular rate and rhythm with normal S1S2, systolic murmur, po sitive posterior tibial pulses bilaterally, and cap refill < 2 seconds. Lungs: Respirations even, regular, and unlabored on room air. Lungs diminished bilaterally, No rhonchi, no rales, no wheezing, and no accessory muscle usage. Abdominal: Obese abdomen soft, nontender to palpation, no guarding, no appreciable organomegaly Ext: ROM intact. No gross muscle atrophy, no edema, no contractures Neuro: GCS 14. Speech clear, face symmetrical and CN II-XII grossly intact with no noted focal neuro deficits Psych: Alert and oriented to person, place, and situation. Confused to time. Appropriate and pleasant affect. Baseline mentation per patient's daughter, Gorge - Labs CBC & Chem 7: 03/20/22 08:05 03/20/22 08:05 Labs: Abnormal Lab Results - Last 24 Hours (Table) 03/19/22 03/19/22 03/19/22 Range/Units 16:40 20:47 23:39 RBC (4.30-5.90) m/uL Hgb (13.0-17.5) gm/dL Hct (39.0-53.0) % Sodium (137-145) mmol/L Chloride (98-107) mmol/L Carbon Dioxide (22-30) mmol/L BUN (9-20) mg/dL Glucose (74-99) mg/dL POC Glucose (mg/dL) 491 H 475 H 375 H (75-99) mg/dL Calcium (8.4-10.2) mg/dL Magnesium (1.6-2.3) mg/dL C-Reactive Protein (<1.0) mg/dL Total Protein (6.3-8.2) g/dL Albumin (3.5-5.0) g/dL 03/20/22 03/20/22 03/20/22 Range/Units 02:32 06:56 08:05 RBC 4.06 L (4.30-5.90) m/uL Hgb 11.4 L (13.0-17.5) gm/dL Hct 34.7 L (39.0-53.0) % Sodium (137-145) mmol/L Chloride (98-107) mmol/L Carbon Dioxide (22-30) mmol/L BUN (9-20) mg/dL Glucose (74-99) mg/dL POC Glucose (mg/dL) 293 H 258 H (75-99) mg/dL Calcium (8.4-10.2) mg/dL Magnesium (1.6-2.3) mg/dL C-Reactive Protein (<1.0) mg/dL Total Protein (6.3-8.2) g/dL Albumin (3.5-5.0) g/dL 03/20/22 03/20/22 Range/Units 08:05 11:59 RBC (4.30-5.90) m/uL Hgb (13.0-17.5) gm/dL Hct (39.0-53.0) % Sodium 134 L (137-145) mmol/L Chloride 108 H (98-107) mmol/L Carbon Dioxide 20 L (22-30) mmol/L BUN 38 H (9-20) mg/dL Glucose 289 H (74-99) mg/dL POC Glucose (mg/dL) 466 H (75-99) mg/dL Calcium 8.0 L (8.4-10.2) mg/dL Magnesium 2.5 H (1.6-2.3) mg/dL C-Reactive Protein 3.4 H (<1.0) mg/dL Total Protein 6.2 L (6.3-8.2) g/dL Albumin 3.0 L (3.5-5.0) g/dL Microbiology - Last 24 Hours (Table) 03/16/22 20:53 Blood Culture - Preliminary Blood No Growth after 72 hours 03/16/22 21:05 Blood Culture - Preliminary Blood No Growth after 72 hours Assessment and Plan Plan: NSTEMI History of CAD status post quadruple bypass Aortic stenosis -Cardiology following, cleared patient from cardiac standpoint recommending outpatient follow-up. -Heparin infusion discontinued, patient placed on Lovenox for DVT prophylaxis. -Telemetry monitoring -Cardiac diet -Continue daily cardiac medication regimen with Aspirin, atorvastatin, lisinopril, Plavix, and metoprolol -Echocardiogram reported to be a suboptimal study but did reveal moderate to severe aortic stenosis with an EF of 50-55%. COVID 19 pneumonitis Acute metabolic encephalopathy in patient with underlying dementia, likely secondary to Covid 19 virus infection in addition to NSTEMI -She is encephalopathy improved and patient is back to baseline -Oxygenation to be administered and titrated as needed to maintain SPO2 equal to or greater than 90%, currently on room air -Telemetry monitoring. -Continue trending inflammatory markers -Encourage Incentive Spirometry 10-15x hourly while awake -Steroids: Decadron 6 mg daily -Continue vitamin C, Vitamin D, and Zinc. -DVT prophylaxis with heparin infusion -Strict Droplet plus Contact precautions -Patient received Bebtelovimab in emergency department Hyperglycemia with Insulin-dependent diabetes mellitus -Patient is having uncontrolled hyperglycemia. Insulin adjustments made. Perennial insulin increased to 10 3 times a day. Patient's long-acting insulin to 68 units. Patient resumed on home dose of metformin. We'll monitor patient's blood sugars and continue to make adjustments. Dementia -Continue daily medication regimen with Aricept and Elavil -Provide safe and supportive care and redirection as needed. -Fall precautions Disposition: Patient's discharge held today due to persistent hyperglycemia and uncontrolled blood sugars. Further insulin adjustment measures to be made to help control
[2022-03-20 17:03] LABS: Glucose,Whole Blood 382 mg/dL (75-99)
[2022-03-20 20:28] LABS: Glucose,Whole Blood 328 mg/dL (75-99)
[2022-03-20] MEDS: amLODIPine 10 MG TAB PO SCH (20:37)
[2022-03-20] MEDS: DONEPEZIL 10 MG TAB PO SCH (20:38)
[2022-03-20] MEDS: AMITRIPTYLINE HCL 25 MG TAB PO SCH (20:38)
[2022-03-21 00:28] VITALS: RESP 18
[2022-03-21] MEDS: SODIUM CHLORIDE 0.9% 1,000 ML IV SCH (00:29)
[2022-03-21] MEDS: dexAMETHasone 2 MG TAB PO SCH (02:31)
[2022-03-21 06:49] LABS: Glucose,Whole Blood 140 mg/dL (75-99)
[2022-03-21] MEDS: ENOXAPARIN 40 MG/0.4 ML SYRINGE SQ SCH (08:47)
[2022-03-21] MEDS: INSULIN ASPART (NovoLOG) 100 UNIT/ML VIAL SQ SCH ×4 (08:47→12:42)
[2022-03-21] MEDS: PANTOPRAZOLE 40 MG TABLET PO SCH (08:48)
[2022-03-21] MEDS: traMADol 50 MG TAB PO SCH (08:48)
[2022-03-21] MEDS: lisinopriL 10 MG TAB PO SCH (08:48)
[2022-03-21] MEDS: CLOPIDOGREL 75 MG TAB PO SCH (08:48)
[2022-03-21] MEDS: CHOLECALCIFEROL 125 MCG (5000 IU) TABLET PO SCH (08:48)
[2022-03-21] MEDS: METOPROLOL SUCCINATE (ER) 50 MG TAB.ER.24H PO SCH (08:48)
[2022-03-21] MEDS: ZINC SULFATE 220 MG CAP PO SCH (08:48)
[2022-03-21] MEDS: ATORVASTATIN 80 MG TAB PO SCH (08:48)
[2022-03-21] MEDS: TAMSULOSIN 0.4 MG CAP.ER.24H PO SCH (08:48)
[2022-03-21] MEDS: ASCORBIC ACID 500 MG TAB PO SCH (08:49)
[2022-03-21] MEDS: metFORMIN 500 MG TAB PO SCH (08:49)
[2022-03-21] MEDS: ASPIRIN 81 MG PO SCH (08:49)
[2022-03-21] MEDS: GABAPENTIN 300 MG CAP PO SCH (08:49)
[2022-03-21 09:06] LABS: Potassium 4.5 mmol/L (3.5-5.1)
[2022-03-21 11:28] VITALS: BP 144/68; PULSE 97; TEMP 97.6
[2022-03-21 11:51] LABS: Glucose,Whole Blood 251 mg/dL (75-99)
[2022-03-21] MEDS: guaiFENesin 600 MG TABLET.ER PO SCH (12:41)
[2022-03-21] MEDS: INSULIN DETEMIR (LEVEMIR) 100 UNIT/ML SYR SQ SCH (12:44)
--- NOTE | 2022-03-21 16:39 | P.DS ---
Providers Date of admission: 03/17/22 00:38 Expected date of discharge: 03/21/22 Attending physician: Wyatt Mathis MD Consults: Cardiology Primary care physician: Valente Lopez [place] Hospital Course: Patient is a a very pleasant 76-year-old male with a past medical history of CAD status post quadruple bypass, chronic systolic heart failure, insulin-dependent diabetes mellitus, and dementia. Patient presented to the emergency department on 03/16/22 with a chief complaint of alteration in mental status, shortness of breath, cough and congestion after testing positive for Covid 19 virus infection 2 days prior. Patient underwent full evaluation in the emergency department. Labs were completed, CBC unremarkable. BMP revealing mild hyperglycemia with glucose of 248 and an elevated bili of 2.3. Troponin was elevated at 0.495 and CRP also elevated at 14.4. ProBNP 1600. Urinalysis negative for infection and Covid PCR positive. Chest x-ray revealing chronic changes and mild cardiomegaly with new small bilateral pleural effusions. CT head negative for acute intracranial abnormality, revealing cerebral atrophy and chronic small vessel ischemia with old lacunar infarcts in the periventricular white matter with some progression compared to previous examination. CT cervical spine negative for acute abnormalities. CT abdomen and pelvis revealing mild bilateral pleural effusions with mild basal or atelectasis and a hiatal hernia. EKG showing normal sinus rhythm at [address] depression in leads I, II, and aVL and mild elevation in V1 and V2. Patient diagnosed as NSTEMI and started on heparin infusion. He was admitted under our services with consultation to cardiology. Throughout the night troponins remained elevated at 0.495, 0.475, and 0.431. D- dimer elevated at 0.69. 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 Echocardiogram reported to be a suboptimal study but did reveal moderate to severe aortic stenosis with an EF of 50-55%. Cardiology discontinued IV heparin and increase lisinopril to 10 mg daily for optimal blood pressure control. Cardiology clearing patient from cardiac standpoint for follow-up outpatient. Patient has been having persistent hyperglycemia throughout hospitalization possibly secondary to steriods therapy. His NovoLog was increased from sliding-scale to 14 units 3 times a day with meals. His long-acting insulin was also increased to 60 units with lunch. He was able to achieve adequate control of his blood sugars. Patient was seen and examined on 03/21/2022. He reported feeling well and wanted to go home. He denied any chest pain, shortness of breath, palpitations or dizziness. As noted above, cardiology has cleared the patient for discharge with outpatient follow-up. He was advised to continue Decadron for 2 more days. He was advised the above insulin regimen for 2 more days and then to restart his home dose of insulin after that. He'll be continued on aspirin, Plavix, metoprolol and Lipitor. Repeat BMP is ordered in 3 days due to acute kidney injury to be followed by his PCP. He may need further adjustments based on his repeat BMP. Patient advised to follow-up with his PCP within 3 days of discharge. Patient verbalized understanding of the plan. This complex discharge took about 45 minutes to complete. General: [non toxic], [no distress], [appears at stated age] Derm: [warm], [dry], [Plantar ulcer left foot, no erythema or discharge] Head: [atraumatic], [normocephalic], [symmetric] Eyes: [EOMI], [no lid lag], [anicteric sclera] Mouth: [no lip lesion], [mucus membranes moist] Cardiovascular: [S1S2 reg], [systolic murmur], [positive posterior tibial pulse bilateral], Lungs: [Decreased breath sounds bilateral], [no rhonchi, no rales] , [no accessory muscle use] Abdominal: [soft], [ nontender to palpation], [no guarding], [no appreciable organomegaly] Ext: [no gross muscle atrophy], [no edema], [no contractures] Neuro: [no focal neuro deficits] Psych: [Alert], [oriented], [appropriate affect] Discharge diagnosis: NSTEMI with history of CAD status post quadruple bypass Aortic stenosis COVID 19 pneumonitis Acute metabolic encephalopathy in patient with underlying dementia Hyperglycemia with Insulin-dependent diabetes mellitus Pertinent Studies: Chest x-ray CT head and C-spine CT abdomen and pelvis CTA chest Echocardiogram Patient Condition at Discharge: Stable Plan - Discharge Summary Discharge Rx Participant: No New Discharge Prescriptions: New Insulin Detemir (Levemir) [Levemir] 60 unit SQ W/LUNCH ml Atorvastatin [Lipitor] 80 mg PO DAILY #30 tab dexAMETHasone ORAL [Hexadrol] 6 mg PO Q24H #2 tab guaiFENesin [Mucinex] 600 mg PO Q12HR tablet INSULIN ASPART (NovoLOG) [NovoLOG (formulary)] 14 unit SQ AC-TID 2 Days ml lisinopriL [Zestril] 10 mg PO DAILY #30 tab Continue Omeprazole [PriLOSEC] 20 mg PO DAILY Donepezil [Aricept] 10 mg PO HS #30 amLODIPine BESYLATE [Norvasc] 10 mg PO HS Aspirin EC [Ecotrin Low Dose] 81 mg PO DAILY Metoprolol Succinate (ER) [Toprol XL] 50 mg PO DAILY Tamsulosin HCl [Flomax] 0.4 mg PO DAILY Furosemide [Lasix] 40 mg PO DAILY Insulin Aspart [NovoLOG Flexpen] See Protocol SQ TID-W/MEALS PRN PRN Reason: HIGH BLOOD SUGAR Clopidogrel [Plavix] 75 mg PO DAILY Gabapentin [Neurontin] 300 mg PO BID #6 cap traMADol HCL 50 mg PO BID Oxybutynin Chloride [Oxybutynin Chloride ER] 10 mg PO DAILY Potassium Chloride ER [K-Dur 10] 10 meq PO DAILY Cholecalciferol [Vitamin D3 (25 Mcg = 1000 Iu)] 50 mcg PO DAILY Amitriptyline HCl [Elavil] 25 mg PO HS Discontinued lisinopriL [Zestril] 2.5 mg PO DAILY metFORMIN HCL [Glucophage] 1,000 mg PO BID Atorvastatin [Lipitor] 40 mg PO HS Insulin Glargine,Hum.rec.anlog [Lantus Solostar Pen] 56 unit SQ W/LUNCH Cephalexin [Keflex] 500 mg PO BID Gentamicin 0.1% Cream 1 applic TOPICAL DAILY Discharge Medication List Omeprazole [PriLOSEC] 20 mg PO DAILY 02/23/15 [History] Donepezil [Aricept] 10 mg PO HS #30 03/13/15 [Rx] amLODIPine BESYLATE [Norvasc] 10 mg PO HS 05/11/15 [History] Aspirin EC [Ecotrin Low Dose] 81 mg PO DAILY 03/07/17 [History] Metoprolol Succinate (ER) [Toprol XL] 50 mg PO DAILY 03/07/17 [History] Tamsulosin HCl [Flomax] 0.4 mg PO DAILY 03/07/17 [History] Furosemide [Lasix] 40 mg PO DAILY 11/08/19 [History] Insulin Aspart [NovoLOG Flexpen] See Protocol SQ TID-W/MEALS PRN 11/08/19 [History] Clopidogrel [Plavix] 75 mg PO DAILY 01/21/20 [History] Gabapentin [Neurontin] 300 mg PO BID #6 cap 01/23/20 [Rx] Amitriptyline HCl [Elavil] 25 mg PO HS 03/16/22 [History] Cholecalciferol [Vitamin D3 (25 Mcg = 1000 Iu)] 50 mcg PO DAILY 03/16/22 [History] Oxybutynin Chloride [Oxybutynin Chloride ER] 10 mg PO DAILY 03/16/22 [History] Potassium Chloride ER [K-Dur 10] 10 meq PO DAILY 03/16/22 [History] traMADol HCL 50 mg PO BID 03/16/22 [History] Atorvastatin [Lipitor] 80 mg PO DAILY #30 tab 03/21/22 [Rx] INSULIN ASPART (NovoLOG) [NovoLOG (formulary)] 14 unit SQ AC-TID 2 Days ml 03/21/22 [Rx] Insulin Detemir (Levemir) [Levemir] 60 unit SQ W/LUNCH ml 03/21/22 [Rx] dexAMETHasone ORAL [Hexadrol] 6 mg PO Q24H #2 tab 03/21/22 [Rx] guaiFENesin [Mucinex] 600 mg PO Q12HR tablet 03/21/22 [Rx] lisinopriL [Zestril] 10 mg PO DAILY #30 tab 03/21/22 [Rx] Follow up Appointment(s)/Referral(s): Valente Sharma MD [Primary Care Provider] - 1-2 days [facility] Visiting Nurse, [NON-STAFF] - Ambulatory/Diagnostic Orders: Basic Metabolic Panel [LAB.AMB] Time Frame: 3 Days, Location: None Selected Activity/Diet/Wound Care/Special Instructions: Diet: Cardiac Follow up with your Marketing Ambassador within 1 week of discharge. Follow up with your PCP within 3 days of discharge. Please take all medications as prescribed. Your blood sugar will be elevated for the next 2 days. This is because you are on Decadron for the next 2 days. Please increase your short acting insulin to 14 units three times a day with meals along with sliding scale. After 2 days, you can go back to your home dose of short acting and long acting insulin. Please come back to the ED or call 911 for worsening chest pain, shortness of breath, palpitations or dizziness. Discharge/Stand Alone Forms: Who Do I Call?, Adult Foster Prison List, Assisted Living Facilities, Help In The Home, Personal Sales Clerk Supervisor Discharge Disposition: HOME SELF-CARE
== END 2022-03-21 14:58 | disposition home health service (06) | DRG 177 ==
LOC: EC 12:15 → 3SCARD 03-17 00:38
PROVIDERS: ADMIT Internal Medicine; ATTEND Internal Medicine
PROC: XW033H6 Introduction of Other New Technology Monoclonal Antibody into Peripheral Vein, Percutaneous Approach, New Technology Group 6 (ICD-10-PCS; principal; 2022-03-16)
DX: U07.1 COVID-19 (principal); J12.82 Pneumonia due to coronavirus disease 2019; J96.01 Acute respiratory failure with hypoxia; G93.41 Metabolic encephalopathy; I21.4 Non-ST elevation (NSTEMI) myocardial infarction; I50.22 Chronic systolic (congestive) heart failure; J98.11 Atelectasis; N17.9 Acute kidney failure, unspecified; E11.65 Type 2 diabetes mellitus with hyperglycemia; E78.5 Hyperlipidemia, unspecified; F03.90 Unspecified dementia, unspecified severity, without behavioral disturbance, psychotic disturbance, mood disturbance, and anxiety; F32.A Depression, unspecified; F41.9 Anxiety disorder, unspecified; E66.9 Obesity, unspecified; Z68.35 Body mass index [BMI] 35.0-35.9, adult; I11.0 Hypertensive heart disease with heart failure; I95.9 Hypotension, unspecified; E11.40 Type 2 diabetes mellitus with diabetic neuropathy, unspecified; I71.2 Thoracic aortic aneurysm, without rupture; I35.0 Nonrheumatic aortic (valve) stenosis; Z28.311 Partially vaccinated for COVID-19; I70.0 Atherosclerosis of aorta; E11.51 Type 2 diabetes mellitus with diabetic peripheral angiopathy without gangrene; L97.529 Non-pressure chronic ulcer of other part of left foot with unspecified severity; I44.0 Atrioventricular block, first degree; R79.1 Abnormal coagulation profile; R26.81 Unsteadiness on feet; R79.82 Elevated C-reactive protein (CRP); I25.10 Atherosclerotic heart disease of native coronary artery without angina pectoris; W19.XXXA Unspecified fall, initial encounter; R29.6 Repeated falls; K44.9 Diaphragmatic hernia without obstruction or gangrene; K57.30 Diverticulosis of large intestine without perforation or abscess without bleeding; R32 Unspecified urinary incontinence; T38.0X5A Adverse effect of glucocorticoids and synthetic analogues, initial encounter; Z95.1 Presence of aortocoronary bypass graft; Z98.890 Other specified postprocedural states; Z79.891 Long term (current) use of opiate analgesic; Z79.02 Long term (current) use of antithrombotics/antiplatelets; Z79.4 Long term (current) use of insulin; Z79.82 Long term (current) use of aspirin; Z79.84 Long term (current) use of oral hypoglycemic drugs; Z79.899 Other long term (current) drug therapy; Z82.49 Family history of ischemic heart disease and other diseases of the circulatory system
CPT/HCPCS: 36415; 70450; 71046; 71275; 72125; 74177; 80048; 80053; 81001; 82140; 82728; 83036; 83605; 83615; 83735; 83880; 84100; 84145; 84484; 85025; 85027; 85379; 85610; 85730; 86140; 87040; 87635; 93005; 93306; 96374; 99285

== ENCOUNTER 2022-04-05 13:18 | Inpatient (IN) | payer MEDICARE, BC ==
[2022-04-05 14:35] LABS: Basophils % (A) 0 %; Eosinophils # (A) 0.1 k/uL (0-0.7); Eosinophils % (A) 1 %; HCT 38.8 % (39.0-53.0); HGB 12.3 gm/dL (13.0-17.5); Lymphocytes # (A) 0.7 k/uL (1.0-4.8); Lymphocytes % (A) 9 %; MCH 27.4 pg (25.0-35.0); MCHC 31.7 g/dL (31.0-37.0); MCV 86.4 fL (80.0-100.0); Mean Platelet Volume 7.2; Monocytes # (A) 0.3 k/uL (0-1.0); Monocytes % (A) 4 %; Neutrophils # (A) 6.4 k/uL (1.3-7.7); Neutrophils % (A) 84 %; Platelet Count 185 k/uL (150-450); RDW 14.9 % (11.5-15.5); WBC 7.6 k/uL (3.8-10.6)
[2022-04-05 14:43] LABS: Albumin 3.6 g/dL (3.5-5.0); Calcium 8.2 mg/dL (8.4-10.2); Potassium 5.1 mmol/L (3.5-5.1); Total Protein 6.7 g/dL (6.3-8.2)
--- NOTE | 2022-04-05 14:47 | XR ---
EXAMINATION TYPE: XR chest 2V DATE OF EXAM: 04/05/2022 COMPARISON: 03/16/2022 TECHNIQUE: PA and lateral views submitted. HISTORY: Difficulty breathing FINDINGS: The heart is enlarged and there is a postsurgical changes. Diffuse interstitial pattern with bilatera l consolidation and small effusions. Arthropathy of the shoulders with diffuse osteopenia. No pneumot horax. Hypertrophic and degenerative changes of the spine. IMPRESSION: 1. COPD correlate for CHF.
[2022-04-05 15:39] LABS: INR 0.9 (<1.2); Prothrombin Time 10.2 sec (9.0-12.0)
[2022-04-05 15:46] LABS: Partial Thromboplastin Time 19.5 sec (22.0-30.0)
--- NOTE | 2022-04-05 16:02 | ED ---
General Adult HPI - General Chief complaint: Chest Pain Stated complaint: chest pain Time Seen by Provider: 04/05/22 13:27 Source: patient, EMS, RN notes reviewed, old records reviewed Mode of arrival: EMS - History of Present Illness Initial comments: Patient is a 76-year-old male with past medical history remarkable for CAD, heart failure, dementia, diabetes, hypertension who is a poor historian. Presents over concern for heart issues from home. Patient's daughters found he was short of breath and called EMS to bring him to the emergency department. He does have a history of cardiac bypass. Denies any shortness of breath at this time but is hypoxic down to 88-90% on room air. Denies any chest pain. Denies any worsening lower extremity edema. Denies any abdominal pain, nausea, vomiting. Denies any history of blood clots. Is not on blood thinners. Denies any fevers, chills, sick contacts, cough. No other acute complaint at this time. Patient is overall a poor historian. Upon evaluation of the patient's chart, was diagnosed with Covid 2 weeks ago when he was admitted. Is not on oxygen at home. - Related Data Home Medications Medication Instructions Recorded Confirmed Omeprazole [PriLOSEC] 20 mg PO DAILY 02/23/15 04/05/22 amLODIPine BESYLATE [Norvasc] 10 mg PO HS 05/11/15 04/05/22 Aspirin EC [Ecotrin Low Dose] 81 mg PO DAILY 03/07/17 04/05/22 Metoprolol Succinate (ER) [Toprol 50 mg PO DAILY 03/07/17 04/05/22 XL] Tamsulosin HCl [Flomax] 0.4 mg PO DAILY 03/07/17 04/05/22 Furosemide [Lasix] 40 mg PO DAILY 11/08/19 04/05/22 Insulin Aspart [NovoLOG Flexpen] See Protocol SQ TID-W/MEALS PRN 11/08/19 04/05/22 Clopidogrel [Plavix] 75 mg PO DAILY 01/21/20 04/05/22 Amitriptyline HCl [Elavil] 25 mg PO HS 03/16/22 04/05/22 Cholecalciferol [Vitamin D3 (25 50 mcg PO DAILY 03/16/22 04/05/22 Mcg = 1000 Iu)] Oxybutynin Chloride [Oxybutynin 10 mg PO DAILY 03/16/22 04/05/22 Chloride ER] Potassium Chloride ER [K-Dur 10] 10 meq PO DAILY 03/16/22 04/05/22 traMADol HCL 50 mg PO BID 03/16/22 04/05/22 Insulin Glargine,Hum.rec.anlog 60 unit SQ W/LUNCH 04/05/22 04/05/22 [Lantus Solostar Pen] Previous Rx's Medication Instructions Recorded Donepezil [Aricept] 10 mg PO HS #30 03/13/15 Gabapentin [Neurontin] 300 mg PO BID #6 cap 01/23/20 Atorvastatin [Lipitor] 80 mg PO DAILY #30 tab 03/21/22 INSULIN ASPART (NovoLOG) [NovoLOG 14 unit SQ AC-TID 2 Days ml 03/21/22 (formulary)] guaiFENesin [Mucinex] 600 mg PO Q12HR tablet 03/21/22 lisinopriL [Zestril] 10 mg PO DAILY #30 tab 03/21/22 Allergies Allergy/AdvReac Type Severity Reaction Status Date / Time No Known Allergies Allergy Verified 03/16/22 18:34 Review of Systems ROS Statement: Those systems with pertinent positive or pertinent negative responses have been documented in the HPI. Review of Systems: CONST: Denies fever EYES: Denies blurry vision ENT: Denies nasal congestion C/V: Denies Chest pain RESP: Endorses mildly worsening shortness of breath. GI: Denies abdominal pain : Denies dysuria SKIN: Denies rash. MSK: Denies joint pain. NEURO: Denies headache ROS Other: All systems not noted in ROS Statement are negative. Past Medical History Past Medical History: Coronary Artery Disease (CAD), Heart Failure, Dementia, Diabetes Mellitus, GERD/Reflux, Hyperlipidemia, Hypertension, Memory Impairment, Osteoarthritis (OA), Pneumonia, Prostate Disorder, Skin Disorder, Vascular Disorder Additional Past Medical History / Comment(s): Recent falls since diagnosed with covid and diarrhea/incontinence, IDDM type II, neuropathy in bilateral hands/feet, "beginnings" of dementia, systolic CHF, PAD, current wound L foot, BPH, chronic back pain, bronchitis, sinus issues. History of Any Multi-Drug Resistant Organisms: None Reported Past Surgical History: Coronary Bypass/CABG, Orthopedic Surgery Additional Past Surgical History / Comment(s): 2014 CABG 4 vessel/bioprosthetic aortic valve, angiograms, aortagram with bilateral run-offs, PTBA/atherectomy L leg, L foot surgery for crush injury, colonoscopy, bilateral cataract removals. Past Anesthesia/Blood Transfusion Reactions: No Reported Reaction Past Psychological History: Anxiety, Depression Smoking Status: Never smoker - Past Family History Father Family Medical History: Congestive Heart Failure (CHF) Mother Family Medical History: Congestive Heart Failure (CHF) General Exam - General Exam Comments Initial Comments: General: Mild increased work of breathing. HEAD: Normal with no signs of head trauma. EYES: PERRLA, EOMI, conjunctiva normal, no discharge. ENT: Hearing grossly intact, normal oropharynx. RESPIRATORY: Clear breath sounds bilaterally. No wheezes, rales, or rhonchi. Mild increased work of breathing. Hypoxic to 88-90% on room air. Improves to 95% or higher with 2 L nasal cannula. C/V: Regular rate and rhythm. S1 and S2 auscultated. Peripheral pulses 2+ and intact throughout. Patient does have bilateral lower extremity edema, 2+ ABD: Abd is soft, nontender, nondistended EXT: Normal range of motion, no obvious deformity SKIN: No rashes or lesions observed on exposed skin. NEURO: Alert and oriented times one to 2 which is his baseline per family who I spoke with on the phone. No focal sensory strength deficits. Course Vital Signs 04/05/22 04/05/22 13:23 15:00 Temperature 98.5 F Pulse Rate 71 75 Respiratory 20 20 Rate Blood Pressure 153/75 148/71 O2 Sat by Pulse 90 L 96 Oximetry Medical Decision Making - Medical Decision Making Based on the patient's presentation and physical exam, and concern for his acute hypoxic respiratory failure requiring supplemental oxygenation. He could be cardiopulmonary in nature or infectious. We will obtain Covid and flu swabs in addition to cardiac labs. D-dimer also cannot be ruled out due to the recent Covid infection and risk of blood clots. He was in agreement with this plan. EKG showed no signs of acute ischemia. Chest x-ray revealed COPD as well as bilateral interstitial infiltrates which could be CHF or atypical pneumonia. Laboratory studies were remarkable for a slightly decreased hemoglobin of 12.3 which is chronic and at his baseline. D-dimer is mildly elevated to 0.87. Troponin is indeterminate at 0.018. BNP is within normal limits at 1600. Patient is still Covid positive for flu negative. Due to the patient's elevated d-dimer did recommend we obtain CT imaging to rule out blood clot and he was in agreement this plan. CT imaging revealed no signs of pulmonary embolism. There are moderate size pleural effusions as well as symptoms of mild CHF. There is a subcarinal lymph node enlarged with reevaluation recommended to rule out neoplastic etiology. I discussed the findings with the patient as well as called a daughter. Patient will be admitted at this time. He was in agreement with the plan. He'll be started on steroids for possible COVID-19 pneumonia causing his current symptoms. We will also restart Lasix. Pulmonology will be consulted for the COVID-19 as well as the pleural effusions. There were no agreement this plan. Echo will be obtained. I spoke with Dr. Knight who accepted the patient. Patient was admitted in serious condition. - Lab Data Result diagrams: 04/05/22 14:05 04/05/22 14:05 Lab Results 04/05/22 04/05/22 04/05/22 Range/Units 14:05 14:05 14:05 WBC 7.6 (3.8-10.6) k/uL RBC 4.50 (4.30-5.90) m/uL Hgb 12.3 L (13.0-17.5) gm/dL Hct 38.8 L (39.0-53.0) % MCV 86.4 (80.0-100.0) fL MCH 27.4 (25.0-35.0) pg MCHC 31.7 (31.0-37.0) g/dL RDW 14.9 (11.5-15.5) % Plt Count 185 (150-450) k/uL MPV 7.2 Neutrophils % 84 % Lymphocytes % 9 % Monocytes % 4 % Eosinophils % 1 % Basophils % 0 % Neutrophils # 6.4 (1.3-7.7) k/uL Lymphocytes # 0.7 L (1.0-4.8) k/uL Monocytes # 0.3 (0-1.0) k/uL Eosinophils # 0.1 (0-0.7) k/uL Basophils # 0.0 (0-0.2) k/uL PT (9.0-12.0) sec INR (<1.2) APTT (22.0-30.0) sec D-Dimer (<0.60) mg/L FEU Sodium 135 L (137-145) mmol/L Potassium 5.1 (3.5-5.1) mmol/L Chloride 108 H (98-107) mmol/L Carbon Dioxide 20 L (22-30) mmol/L Anion Gap 7 mmol/L BUN 24 H (9-20) mg/dL Creatinine 0.97 (0.66-1.25) mg/dL Est GFR (CKD-EPI)AfAm 89 (>60 ml/min/1.73 sqM) Est GFR (CKD-EPI)NonAf 77 (>60 ml/min/1.73 sqM) Glucose 283 H (74-99) mg/dL POC Glucose (mg/dL) (75-99) mg/dL POC Glu [employer] ID Calcium 8.2 L (8.4-10.2) mg/dL Total Bilirubin 2.0 H (0.2-1.3) mg/dL AST 25 (17-59) U/L ALT 27 (4-49) U/L Alkaline Phosphatase 118 (38-126) U/L Troponin I 0.018 (0.000-0.034) ng/mL NT-Pro-B Natriuret Pep pg/mL Total Protein 6.7 (6.3-8.2) g/dL Albumin 3.6 (3.5-5.0) g/dL Coronavirus (PCR) (Not Detectd) Influenza Type A RNA (Not Detectd) Influenza Type B (PCR) (Not Detectd) 04/05/22 04/05/22 04/05/22 Range/Units 14:05 14:05 14:05 WBC (3.8-10.6) k/uL RBC (4.30-5.90) m/uL Hgb (13.0-17.5) gm/dL Hct (39.0-53.0) % MCV (80.0-100.0) fL MCH (25.0-35.0) pg MCHC (31.0-37.0) g/dL RDW (11.5-15.5) % Plt Count (150-450) k/uL MPV Neutrophils % % Lymphocytes % % Monocytes % % Eosinophils % % Basophils % % Neutrophils # (1.3-7.7) k/uL Lymphocytes # (1.0-4.8) k/uL Monocytes # (0-1.0) k/uL Eosinophils # (0-0.7) k/uL Basophils # (0-0.2) k/uL PT (9.0-12.0) sec INR (<1.2) APTT (22.0-30.0) sec D-Dimer (<0.60) mg/L FEU Sodium (137-145) mmol/L Potassium (3.5-5.1) mmol/L Chloride (98-107) mmol/L Carbon Dioxide (22-30) mmol/L Anion Gap mmol/L BUN (9-20) mg/dL Creatinine (0.66-1.25) mg/dL Est GFR (CKD-EPI)AfAm (>60 ml/min/1.73 sqM) Est GFR (CKD-EPI)NonAf (>60 ml/min/1.73 sqM) Glucose (74-99) mg/dL POC Glucose (mg/dL) (75-99) mg/dL POC Glu [employer] Inspector ID Calcium (8.4-10.2) mg/dL Total Bilirubin (0.2-1.3) mg/dL AST (17-59) U/L ALT (4-49) U/L Alkaline Phosphatase (38-126) U/L Troponin I (0.000-0.034) ng/mL NT-Pro-B Natriuret Pep 1640 pg/mL Total Protein (6.3-8.2) g/dL Albumin (3.5-5.0) g/dL Coronavirus (PCR) Detected A (Not Detectd) Influenza Type A RNA Not Detected (Not Detectd) Influenza Type B (PCR) Not Detected (Not Detectd) 04/05/22 04/05/22 Range/Units 15:05 17:45 WBC (3.8-10.6) k/uL RBC (4.30-5.90) m/uL Hgb (13.0-17.5) gm/dL Hct (39.0-53.0) % MCV (80.0-100.0) fL MCH (25.0-35.0) pg MCHC (31.0-37.0) g/dL RDW (11.5-15.5) % Plt Count (150-450) k/uL MPV Neutrophils % % Lymphocytes % % Monocytes % % Eosinophils % % Basophils % % Neutrophils # (1.3-7.7) k/uL Lymphocytes # (1.0-4.8) k/uL Monocytes # (0-1.0) k/uL Eosinophils # (0-0.7) k/uL Basophils # (0-0.2) k/uL PT 10.2 (9.0-12.0) sec INR 0.9 (<1.2) APTT 19.5 L (22.0-30.0) sec D-Dimer 0.87 H (<0.60) mg/L FEU Sodium (137-145) mmol/L Potassium (3.5-5.1) mmol/L Chloride (98-107) mmol/L Carbon Dioxide (22-30) mmol/L Anion Gap mmol/L BUN (9-20) mg/dL Creatinine (0.66-1.25) mg/dL Est GFR (CKD-EPI)AfAm (>60 ml/min/1.73 sqM) Est GFR (CKD-EPI)NonAf (>60 ml/min/1.73 sqM) Glucose (74-99) mg/dL POC Glucose (mg/dL) 234 H (75-99) mg/dL POC Glu [employer] Inspector ID April, Calcium (8.4-10.2) mg/dL Total Bilirubin (0.2-1.3) mg/dL AST (17-59) U/L ALT (4-49) U/L Alkaline Phosphatase (38-126) U/L Troponin I (0.000-0.034) ng/mL NT-Pro-B Natriuret Pep pg/mL Total Protein (6.3-8.2) g/dL Albumin (3.5-5.0) g/dL Coronavirus (PCR) (Not Detectd) Influenza Type A RNA (Not Detectd) Influenza Type B (PCR) (Not Detectd) - EKG Data -: EKG Interpreted by Me EKG Comments: 12-lead Electrocardiogram Interpretation Note EKG was reviewed and interpreted by myself. 12-lead ECG performed at 1330 is interpreted by me as revealing normal sinus rhythm at a rate of 69 beats per minute. [place] is normal. [place] interval is 330 ms, QRS duration is 113 ms, QTc is 424 ms.. There were no ST or T wave abnormalities to suggest myocardial ischemia or injury. R wave progression across the precordium was satisfactory. By my interpretation this EKG is non-diagnostic for acute ischemia. There is first degree AV block. Disposition Clinical Impression: Pneumonia due to COVID-19 virus, Pleural effusion, Volume overload, Acute respiratory failure with hypoxia Disposition: ADMITTED IP TO THIS HOSP Condition: Serious Referrals: Valente Sharma MD [Primary Care Provider] - 1-2 days Time of Disposition: 17:02
--- NOTE | 2022-04-05 16:30 | CT ---
EXAMINATION TYPE: CT chest angio for PE DATE OF EXAM: 04/05/2022 COMPARISON: 03/17/2022 HISTORY: 76-year-old male shortness of breath, Elevated d-dimer and chest pain. TECHNIQUE: Contiguous axial scanning of the chest performed with IV Contrast, patient injected with 6 1ml mL of Isovue 370. Coronal and sagittal MIP reconstructions performed. CT DLP: 705.5 mGycm Automated exposure control for dose reduction was used. FINDINGS: Median sternotomy wires are present with post-CABG changes. Heart borderline in size. No pericardial effusion. Calcifications involving the aortic valve Mild aneurysm ascending aorta 4.1 cm. Mild atherosclerotic arch calcifications. Conventional arch ves shanda branching anatomy. Borderline size mediastinal lymph nodes. Subcarinal node is enlarged measuring 2.5 cm, unchanged. Low er right paratracheal lymph node 1.1 cm, slightly larger from 8 mm, previously. Satisfactory contrast bolus limitations due to patient breathing during the scan. No large central an d no definite lobar branch pulmonary embolus. Most of the segmental and more distal arterial branches are nondiagnostic due to the degree of motion and emboli in these locations cannot be excluded on th e basis of this exam. Enlarging, now moderate bilateral pleural effusions with adjacent atelectasis. No other consolidation is seen. Tiny hiatal hernia. Visualized upper abdomen is motion limited but otherwise shows no gross abnormali ty. Bones: [facility] mid to lower thoracic spine. Superior endplate Schmorl's nodes at a few levels mid and lo wer thoracic spine overall appear chronic. IMPRESSION: 1. THE PATIENT IS BREATHING THROUGH THE SCAN. NO LARGE CENTRAL OR DEFINITE LOBAR BRANCH EMBOLUS. MOST OF THE SEGMENTAL AND MORE DISTAL ARTERIAL BRANCHES ARE NONDIAGNOSTIC AND EMBOLI IN THESE LOCATIONS C ANNOT BE EXCLUDED ON THE BASIS OF THIS EXAM. 2. BORDERLINE HEART SIZE WITH ENLARGING MODERATE-SIZED PLEURAL EFFUSIONS AND ADJACENT ATELECTASIS. CO RRELATE FOR FLUID OVERLOAD STATE/MILD CHF AN ETIOLOGY. 3. A SUBCARINAL LYMPH NODE IS ENLARGED AT 2.5 CM. POSSIBLY REACTIVE. THREE-MONTH FOLLOW-UP CT TO REAS SESS AND EXCLUDE A NEOPLASTIC ETIOLOGY.
[2022-04-05] MEDS ORDERED: FUROSEMIDE 10 MG/ML 4 ML VIAL IV STA (17:19)
--- NOTE | 2022-04-05 17:22 | P.HPIM ---
History of Present Illness H&P Date: 04/05/22 Chief Complaint: Hypoxia 76-year-old man with medical history of CAD, systolic congestive heart failure, diabetes, hypertension, hyperlipidemia, dementia presented for difficulty breathing. Patient says that he's had increasing difficulty breathing recently but it got particularly worse yesterday night. 2 weeks ago was diagnosed with Covid. He also has congestive heart failure, but has been taking his medications. He denies fevers, nausea, vomiting, chest pain, palpitations, syncope, presyncopal, cough, abdominal pain, constipation, diarrhea, dysuria, dyschezia, numbness/weakness of extremities. He does report chills, dyspnea. In the emergency room, patient is afebrile, 153/75, heart rate 71, 88% on room air, 95% on 2 L nasal cannula. CBC is markable for mild anemia down to 12.3. Chemistries are remarkable for sodium of 135, chloride of 108, bicarb is 20, BUN slightly elevated at 24. LFTs remarkable for slightly elevated total bilirubin at 2.0. Initial troponin was 0.018. BNP was 1640. Covid PCR was positive. Influenza A/B were negative. Coags show low APTT at 19.5. D-dimer was slightly elevated at 0.87. Patient's EKG demonstrates normal sinus rhythm with first- degree AV block. Patient's chest x-ray shows COPD with diffuse interstitial pa ttern consistent with vascular congestion. Patient underwent CTA to rule out pulmonary embolism, and was negative for large central pulmonary embolism, but did show cardiomegaly with an increasing pleural effusion. All Systems reviewed and pertinent positives and negatives noted in HPI, all other symptoms are negative Gen: awake, alert HEENT: normocephalic, atraumatic, good hearing acuity, moist mucous membranes Resp: good air exchange, breathing comfortably with no accessory muscle use CVS: good distal perfusion x 4, GI: soft, NTTP, ND : no SPT, no CVAT, mora catheter not present MSK: Bilateral pitting edema, no clubbing Neuro: non-focal, moving all extremities Psych: cooperative, euthymic mood Labs and imaging as above Assessment/plan: Acute hypoxemic respiratory failure Covid 19 Acute on chronic diastolic heart failure, EF 50-55% -Admit to inpatient, telemetry -Dexamethasone, vitamin C/D, zinc, famotidine -Outside of window for remdesivir -Continue diuretics -Will not repeat echo as this was recently done -Cardiology, pulmonary consult CAD Diabetes Hypertension Hyperlipidemia Dementia -Home medications reviewed and reconciled Patient is full code DVT prophylaxis with heparin 3 times a day Past Medical History Past Medical History: Coronary Artery Disease (CAD), Heart Failure, Dementia, Diabetes Mellitus, GERD/Reflux, Hyperlipidemia, Hypertension, Memory Impairment, Osteoarthritis (OA), Pneumonia, Prostate Disorder, Skin Disorder, Vascular Disorder Additional Past Medical History / Comment(s): Recent falls since diagnosed with covid and diarrhea/incontinence, IDDM type II, neuropathy in bilateral hands/feet, "beginnings" of dementia, systolic CHF, PAD, current wound L foot, BPH, chronic back pain, bronchitis, sinus issues. History of Any Multi-Drug Resistant Organisms: None Reported Past Surgical History: Coronary Bypass/CABG, Orthopedic Surgery Additional Past Surgical History / Comment(s): 2014 CABG 4 vessel/bioprosthetic aortic valve, angiograms, aortagram with bilateral run-offs, PTBA/atherectomy L leg, L foot surgery for crush injury, colonoscopy, bilateral cataract removals. Past Anesthesia/Blood Transfusion Reactions: No Reported Reaction Past Psychological History: Anxiety, Depression Smoking Status: Never smoker - Past Family History Father Family Medical History: Congestive Heart Failure (CHF) Mother Family Medical History: Congestive Heart Failure (CHF) Medications and Allergies Home Medications Medication Instructions Recorded Confirmed Type Omeprazole [PriLOSEC] 20 mg PO DAILY 02/23/15 04/05/22 History Donepezil [Aricept] 10 mg PO HS #30 03/13/15 04/05/22 Rx amLODIPine BESYLATE [Norvasc] 10 mg PO HS 05/11/15 04/05/22 History Aspirin EC [Ecotrin Low Dose] 81 mg PO DAILY 03/07/17 04/05/22 History Metoprolol Succinate (ER) [Toprol 50 mg PO DAILY 03/07/17 04/05/22 History XL] Tamsulosin HCl [Flomax] 0.4 mg PO DAILY 03/07/17 04/05/22 History Furosemide [Lasix] 40 mg PO DAILY 11/08/19 04/05/22 History Insulin Aspart [NovoLOG Flexpen] See Protocol SQ TID-W/MEALS PRN 11/08/19 04/05/22 History Clopidogrel [Plavix] 75 mg PO DAILY 01/21/20 04/05/22 History Gabapentin [Neurontin] 300 mg PO BID #6 cap 01/23/20 04/05/22 Rx Amitriptyline HCl [Elavil] 25 mg PO HS 03/16/22 04/05/22 History Cholecalciferol [Vitamin D3 (25 50 mcg PO DAILY 03/16/22 04/05/22 History Mcg = 1000 Iu)] Oxybutynin Chloride [Oxybutynin 10 mg PO DAILY 03/16/22 04/05/22 History Chloride ER] Potassium Chloride ER [K-Dur 10] 10 meq PO DAILY 03/16/22 04/05/22 History traMADol HCL 50 mg PO BID 03/16/22 04/05/22 History Atorvastatin [Lipitor] 80 mg PO DAILY #30 tab 03/21/22 04/05/22 Rx INSULIN ASPART (NovoLOG) [NovoLOG 14 unit SQ AC-TID 2 Days ml 03/21/22 04/05/22 Rx (formulary)] guaiFENesin [Mucinex] 600 mg PO Q12HR tablet 03/21/22 04/05/22 Rx lisinopriL [Zestril] 10 mg PO DAILY #30 tab 03/21/22 04/05/22 Rx Insulin Glargine,Hum.rec.anlog 60 unit SQ W/LUNCH 04/05/22 04/05/22 History [Lantus Solostar Pen] Allergies Allergy/AdvReac Type Severity Reaction Status Date / Time No Known Allergies Allergy Verified 03/16/22 18:34 Physical Exam Osteopathic Statement: *. No significant issues noted on an osteopathic structural exam other than those noted in the History and Physical/Consult. Vitals: Vital Signs Temp Pulse Resp BP Pulse Ox 04/05/22 15:00 75 20 148/71 96 04/05/22 13:23 98.5 F 71 20 153/75 90 L Intake and Output 04/05/22 04/05/22 04/05/22 06:59 14:59 22:59 Other: Weight 101.151 kg Results CBC & Chem 7: 04/05/22 14:05 04/05/22 14:05 Labs: Abnormal Lab Results - Last 24 Hours (Table) 04/05/22 04/05/22 04/05/22 Range/Units 14:05 14:05 14:05 Hgb 12.3 L (13.0-17.5) gm/dL Hct 38.8 L (39.0-53.0) % Lymphocytes # 0.7 L (1.0-4.8) k/uL APTT (22.0-30.0) sec D-Dimer (<0.60) mg/L FEU Sodium 135 L (137-145) mmol/L Chloride 108 H (98-107) mmol/L Carbon Dioxide 20 L (22-30) mmol/L BUN 24 H (9-20) mg/dL Glucose 283 H (74-99) mg/dL Calcium 8.2 L (8.4-10.2) mg/dL Total Bilirubin 2.0 H (0.2-1.3) mg/dL Coronavirus (PCR) Detected A (Not Detectd) 04/05/22 Range/Units 15:05 Hgb (13.0-17.5) gm/dL Hct (39.0-53.0) % Lymphocytes # (1.0-4.8) k/uL APTT 19.5 L (22.0-30.0) sec D-Dimer 0.87 H (<0.60) mg/L FEU Sodium (137-145) mmol/L Chloride (98-107) mmol/L Carbon Dioxide (22-30) mmol/L BUN (9-20) mg/dL Glucose (74-99) mg/dL Calcium (8.4-10.2) mg/dL Total Bilirubin (0.2-1.3) mg/dL Coronavirus (PCR) (Not Detectd)
[2022-04-05] MEDS ORDERED: INSULIN ASPART (NovoLOG) 100 UNIT/ML VIAL SQ SCH (17:30)
[2022-04-05 17:47] LABS: Glucose,Whole Blood 234 mg/dL (75-99)
[2022-04-05] MEDS: INSULIN ASPART (NovoLOG) 100 UNIT/ML VIAL SQ SCH ×2 (18:43)
[2022-04-05] MEDS: DEXAMETHASONE SOD PHOSPHATE 10 MG/ML 1 ML VIAL IVP SCH (18:43)
[2022-04-05] MEDS: guaiFENesin 600 MG TABLET.ER PO SCH (20:34)
[2022-04-05] MEDS: amLODIPine 10 MG TAB PO SCH (20:34)
[2022-04-05] MEDS: GABAPENTIN 300 MG CAP PO SCH (20:34)
[2022-04-05] MEDS: DONEPEZIL 10 MG TAB PO SCH (20:34)
[2022-04-05] MEDS: AMITRIPTYLINE HCL 25 MG TAB PO SCH (20:34)
[2022-04-05] MEDS: traMADol 50 MG TAB PO SCH (20:35)
[2022-04-06] MEDS: HEPARIN SODIUM,PORCINE/PF 5,000 UNIT/0.5 ML SYRINGE SQ SCH ×4 (00:46→22:54)
[2022-04-06] MEDS: DEXAMETHASONE SOD PHOSPHATE 10 MG/ML 1 ML VIAL IVP SCH (08:07)
[2022-04-06 08:39] LABS: Glucose,Whole Blood 450 mg/dL (75-99)
[2022-04-06] MEDS ORDERED: FUROSEMIDE 40 MG TAB PO SCH (09:00)
[2022-04-06 09:12] LABS: HCT 35.2 % (39.6-50.0); HGB 11.1 g/dL (13.0-17.0); MCH 26.9 pg (27.0-32.0); MCHC 31.5 g/dL (32.0-37.0); MCV 85.2 fL (80.0-97.0); NRBC Per 100 WBC 0 /100 WBCS (0.0-0.0); Platelet Count 146 X 10*3/uL (140-440); RBC 4.13 X 10*6/uL (4.40-5.60); RDW 14.7 % (11.5-14.5); WBC 5.92 X 10*3/uL (4.50-10.00)
[2022-04-06 09:32] LABS: African American GFR (CKD) 62.3 (60.0-200.0); Albumin 3.3 g/dL (3.8-4.9); Albumin/Globulin Ratio 1.18 (1.60-3.17); Anion Gap 12.1 mmol/L (10.00-18.00); BUN/Creat Ratio 17.92 Ratio (12.00-20.00); Blood Urea Nitrogen 23.3 mg/dL (9.0-27.0); Calcium 8.2 mg/dL (8.7-10.3); Carbon Dioxide 19.9 mmol/L (20.0-27.5); Globulin 2.8 g/dL (1.6-3.3); Non-African American GFR(CKD) 53.8 (60.0-200.0); Total Bilirubin 1.6 mg/dL (0.30-1.20); Total Protein 6.1 g/dL (6.2-8.2)
--- NOTE | 2022-04-06 09:49 | P.CRDCN ---
History of Present Illness History of present illness: HISTORY OF PRESENTING ILLNESS This is a pleasant 76-year-old male past medical history significant for coronary artery disease status post prior CABG in 2015, ischemic cardiomyopathy with improvement in EF, moderate to severe aortic stenosis, type 2 diabetes, hypertension, dyslipidemia, dementia, peripheral vascular disease. He follows in the office with Dr. Hodges. We have been asked to see in consultation for congestive heart failure. Patient presents emergency department from home with symptoms of lower extremity edema and hypoxia. Patient does not recall why he is in the hospital. He is a poor historian. He does remember being in the ambulance. He currently denies any shortness of breath, chest pain, nausea, vomiting, lightheadedness or dizziness. He denies orthopnea or PND. He denies any cough or fever. Does endorse chills. He is diagnosed with Covid-19. Recent echocardiogram in the office 03/03/2022 revealed EF 55%, grade 2 diastolic dysfunction, moderate concentric LVH, severely dilated left atrium, mild aortic regurgitation and moderate severe aortic stenosis, moderate mitral regurgitation, mild to moderate tricuspid regurgitation DIAGNOSTICS EKG reveals sinus rhythm, first-degree AV block, heart rate 69, nonspecific STT wave abnormalities. Prior EKG was similar findings Telemetry tracings indicate sinus mechanism, first-degree AV block noted, heart rate 6070s Chest CT report revealed no large central definite lobar branch embolus, most of the segmental and more distal arterial branches to nondiagnostic emboli in these locations cannot be excluded. Borderline heart size is enlarged to monitor the size pleural effusions. Subcarinal lymph node is enlarged at 2.5 cm. Possibly reactive. Chest x-ray revealed COPD, bilateral consolidation and small effusions noted. Laboratory reviewed, WBC 5.9, hemoglobin 11, platelets 146, d-dimer 0.8, sodium 135, potassium 5.1, BUN 24, serum current 0.9, troponin negative, proBNP 1640, Covid positive, T bili 2.0 Current home medications include aspirin 80 mg daily, atorvastatin 80 mg daily, Plavix 75 mg daily, Lasix 40 mg daily, metoprolol succinate 50 mg daily, lisinopril 10 mg daily, amlodipine 10 mg nightly REVIEW OF SYSTEMS At the time of my exam: CONSTITUTIONAL: Denies fever or chills. CARDIOVASCULAR: Denies chest pain, shortness of breath, orthopnea, PND or palpitations. RESPIRATORY: Denies cough. GASTROINTESTINAL: Denies abdominal pain, diarrhea, constipation, nausea or vomiting. MUSCULOSKELETAL: Denies myalgias. NEUROLOGIC: Denies numbness, tingling, headacbe or weakness. ENDOCRINE: Denies fatigue, weight change, polydipsia or polyurina. GENITOURINARY: Denies burning, hematuria or urgency with micturation. HEMATOLOGIC: Denies history of anemia or bleeding. PHYSICAL EXAMINATION Blood pressure 144/77, heart rate 72, afebrile, saturations 97% on 2 L nasal cannula CONSTITUTIONAL: No apparent distress. HEENT: Head is normocephalic. Pupils are equal, round. Sclerae anicteric. Mucous membranes of the mouth are moist. No JVD. No carotid bruit. CHEST EXAMINATION: Lungs are crackles in the bases bilaterally to auscultation. No chest wall tenderness is noted on palpation or with deep breathing. HEART EXAMINATION: Regular rate and rhythm. S1, S2 heard. Systolic murmur at right sternal borrder. No gallops or rub. ABDOMEN: Soft, nontender. Positive bowel sounds. EXTREMITIES: 2+ peripheral pulses, 2+ bilateral lower extremity edema and no calf tenderness. NEUROLOGIC EXAMINATION: Patient is awake, alert and oriented x 2. ASSESSMENT Acute on chronic heart failure with preserved ejection fraction Covid-19 Infection Coronary artery disease status post prior CABG in 2014 Ischemic cardiomyopathy with improvement in EF Moderate to severe aortic stenosis Type 2 diabetes Hypertension Dyslipidemia Dementia Peripheral vascular disease PLAN Start IV Lasix 20mg BID Monitor renal function and electrolytes, I/Os, daily weights Continue home cardiac medications Covid-19 management per primary Further recommendations based on clinical course Nurse practitioner note has been reviewed by physician. Signing provider agrees with the documented findings, assessment, and plan of care. Past Medical History Past Medical History: Coronary Artery Disease (CAD), Heart Failure, Dementia, Diabetes Mellitus, GERD/Reflux, Hyperlipidemia, Hypertension, Memory Impairment, Osteoarthritis (OA), Pneumonia, Prostate Disorder, Skin Disorder, Vascular Disorder Additional Past Medical History / Comment(s): Recent falls since diagnosed with covid and diarrhea/incontinence, IDDM type II, neuropathy in bilateral hands/feet, "beginnings" of dementia, systolic CHF, PAD, current wound L foot, BPH, chronic back pain, bronchitis, sinus issues. History of Any Multi-Drug Resistant Organisms: None Reported Past Surgical History: Coronary Bypass/CABG, Orthopedic Surgery Additional Past Surgical History / Comment(s): 2014 CABG 4 vessel/bioprosthetic aortic valve, angiograms, aortagram with bilateral run-offs, PTBA/atherectomy L leg, L foot surgery for crush injury, colonoscopy, bilateral cataract removals. Past Anesthesia/Blood Transfusion Reactions: No Reported Reaction Past Psychological History: Anxiety, Depression Additional Psychological History / Comment(s): Pt has a day, Rhoda, currently residing with him. His lashanda, Sagrario, lives near and assists with his care, she manages his medications/checks blood sugar and gives him his insulin as well as assists with getting him meals. His lashanda, Medina drives him to appts. 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 Pt has PT/OT but lashanda cannot recall name of company. They are planning to hire someone to assist pt 3 days a week with ADLs/etc. Pt has been using a walker lately si nce diagnosed with covid. Smoking Status: Never smoker Past Alcohol Use History: Heavy Additional Past Alcohol Use History / Comment(s): Pt was a heavy drinker in the past but has not drank in 15-20 years. Past Drug Use History: None Reported - Past Family History Father Family Medical History: Congestive Heart Failure (CHF) Mother Family Medical History: Congestive Heart Failure (CHF) Medications and Allergies Home Medications Medication Instructions Recorded Confirmed Type Omeprazole [PriLOSEC] 20 mg PO DAILY 02/23/15 04/05/22 History Donepezil [Aricept] 10 mg PO HS #30 03/13/15 04/05/22 Rx amLODIPine BESYLATE [Norvasc] 10 mg PO HS 05/11/15 04/05/22 History Aspirin EC [Ecotrin Low Dose] 81 mg PO DAILY 03/07/17 04/05/22 History Metoprolol Succinate (ER) [Toprol 50 mg PO DAILY 03/07/17 04/05/22 History XL] Tamsulosin HCl [Flomax] 0.4 mg PO DAILY 03/07/17 04/05/22 History Furosemide [Lasix] 40 mg PO DAILY 11/08/19 04/05/22 History Insulin Aspart [NovoLOG Flexpen] See Protocol SQ TID-W/MEALS PRN 11/08/19 04/05/22 History Clopidogrel [Plavix] 75 mg PO DAILY 01/21/20 04/05/22 History Gabapentin [Neurontin] 300 mg PO BID #6 cap 01/23/20 04/05/22 Rx Amitriptyline HCl [Elavil] 25 mg PO HS 03/16/22 04/05/22 History Cholecalciferol [Vitamin D3 (25 50 mcg PO DAILY 03/16/22 04/05/22 History Mcg = 1000 Iu)] Oxybutynin Chloride [Oxybutynin 10 mg PO DAILY 03/16/22 04/05/22 History Chloride ER] Potassium Chloride ER [K-Dur 10] 10 meq PO DAILY 03/16/22 04/05/22 History traMADol HCL 50 mg PO BID 03/16/22 04/05/22 History Atorvastatin [Lipitor] 80 mg PO DAILY #30 tab 03/21/22 04/05/22 Rx INSULIN ASPART (NovoLOG) [NovoLOG 14 unit SQ AC-TID 2 Days ml 03/21/22 04/05/22 Rx (formulary)] guaiFENesin [Mucinex] 600 mg PO Q12HR tablet 03/21/22 04/05/22 Rx lisinopriL [Zestril] 10 mg PO DAILY #30 tab 03/21/22 04/05/22 Rx Insulin Glargine,Hum.rec.anlog 60 unit SQ W/LUNCH 04/05/22 04/05/22 History [Lantus Solostar Pen] Allergies Allergy/AdvReac Type Severity Reaction Status Date / Time No Known Allergies Allergy Verified 03/16/22 18:34 Physical Exam Vitals: Vital Signs Temp Pulse Pulse Resp BP BP Pulse Ox 04/06/22 00:33 98.2 F 72 21 144/77 97 04/05/22 23:04 75 18 129/75 95 04/05/22 19:23 75 20 153/75 94 L 04/05/22 18:48 70 18 143/64 95 04/05/22 15:00 75 20 148/71 96 04/05/22 13:23 98.5 F 71 20 153/75 90 L Intake and Output 04/05/22 04/06/22 04/06/22 22:59 06:59 14:59 Other: # Voids 2 Weight 101.151 kg Results 04/06/22 04:27 04/06/22 04:27 Cardiac Enzymes 04/05/22 04/05/22 04/06/22 Range/Units 14:05 14:05 04:27 AST 25 13 L (17-59) U/L Troponin I 0.018 (0.000-0.034) ng/mL Coagulation 04/05/22 Range/Units 15:05 PT 10.2 (9.0-12.0) sec APTT 19.5 L (22.0-30.0) sec CBC 04/05/22 04/06/22 Range/Units 14:05 04:27 WBC 7.6 5.92 (3.8-10.6) k/uL RBC 4.50 4.13 L (4.30-5.90) m/uL Hgb 12.3 L 11.1 L (13.0-17.5) gm/dL Hct 38.8 L 35.2 L (39.0-53.0) % Plt Count 185 146 (150-450) k/uL Comprehensive Metabolic Panel 04/05/22 04/06/22 Range/Units 14:05 04:27 Sodium 135 L 136 (137-145) mmol/L Potassium 5.1 5.0 (3.5-5.1) mmol/L Chloride 108 H 104 (98-107) mmol/L Carbon Dioxide 20 L 19.9 L (22-30) mmol/L BUN 24 H 23.3 (9-20) mg/dL Creatinine 0.97 1.3 (0.66-1.25) mg/dL Glucose 283 H 401 H (74-99) mg/dL Calcium 8.2 L 8.2 L (8.4-10.2) mg/dL AST 25 13 L (17-59) U/L ALT 27 24 (4-49) U/L Alkaline Phosphatase 118 111 (38-126) U/L Total Protein 6.7 6.1 L (6.3-8.2) g/dL Albumin 3.6 3.3 L (3.5-5.0) g/dL Current Medications Generic Name Dose Route Start Last Admin Trade Name Freq PRN Reason Stop Dose Admin Amitriptyline HCl 25 mg 04/05/22 21:00 04/05/22 20:34 Amitriptyline Hcl 25 Mg Tab PO 25 mg HS [facility] Administration Amlodipine Besylate 10 mg 04/05/22 21:00 04/05/22 20:34 Amlodipine 10 Mg Tab PO 10 mg HS [facility] Administration Aspirin 81 mg 04/06/22 09:00 Aspirin 81 Mg PO DAILY [facility] Atorvastatin Calcium 80 mg 04/06/22 09:00 Atorvastatin 80 Mg Tab PO DAILY [facility] Cholecalciferol 50 mcg 04/06/22 09:00 Cholecalciferol 25 Mcg (1000 Iu) Tablet PO DAILY [facility] Clopidogrel Bisulfate 75 mg 04/06/22 09:00 Clopidogrel 75 Mg Tab PO DAILY [facility] Dexamethasone Sodium Phosphate 6 mg 04/05/22 17:15 04/06/22 08:07 Dexamethasone Sod Phosphate 10 Mg/Ml 1 Ml Vial IVP 6 mg DAILY [facility] Administration Donepezil HCl 10 mg 04/05/22 21:00 04/05/22 20:34 Donepezil 10 Mg Tab PO 10 mg HS [facility] Administration Furosemide 20 mg 04/06/22 09:00 Furosemide 10 Mg/Ml 2 Ml Vial IV Q12HR [facility] Gabapentin 300 mg 04/05/22 21:00 04/05/22 20:34 Gabapentin 300 Mg Cap PO 300 mg BID [facility] Administration Guaifenesin 600 mg 04/05/22 21:00 04/05/22 20:34 Guaifenesin 600 Mg Tablet.Er PO 600 mg Q12HR [facility] Administration Heparin Sodium (Porcine) 5,000 unit 04/06/22 00:00 04/06/22 00:46 Heparin Sodium,Porcine/Pf 5,000 Unit/0.5 Ml Syringe SQ 5,000 unit Q8HR [facility] Administration Insulin Aspart 0 unit 04/05/22 17:30 04/05/22 18:43 Insulin Aspart (Novolog) 100 Unit/Ml Vial SQ 3 unit AC-TID [facility] Administration Protocol Insulin Aspart 20 unit 04/06/22 12:30 Insulin Aspart (Novolog) 100 Unit/Ml Vial SQ AC-TID [facility] Insulin Detemir 60 unit 04/06/22 12:30 Insulin Detemir (Levemir) 100 Unit/Ml Syr SQ W/LUNCH [facility] Lisinopril 10 mg 04/06/22 09:00 Lisinopril 10 Mg Tab PO DAILY [facility] Metoprolol Succinate 50 mg 04/06/22 09:00 Metoprolol Succinate (Er) 50 Mg Tab.Er.24h PO DAILY [facility] Oxybutynin Chloride 10 mg 04/06/22 09:00 Oxybutynin 10 Mg Tab.Er.24 PO DAILY [facility] Pantoprazole Sodium 40 mg 04/06/22 07:30 Pantoprazole 40 Mg Tablet PO AC-BRKFST [facility] Tamsulosin HCl 0.4 mg 04/06/22 09:00 Tamsulosin 0.4 Mg Cap.Er.24h PO DAILY [facility] Tramadol HCl 50 mg 04/05/22 21:00 04/05/22 20:35 Tramadol 50 Mg Tab PO 50 mg BID [facility] Administration Intake and Output 04/05/22 04/06/22 04/06/22 22:59 06:59 14:59 Other: # Voids 2 Weight 101.151 kg 04/06/22 04:27 04/06/22 04:27
[2022-04-06] MEDS: INSULIN ASPART (NovoLOG) 100 UNIT/ML VIAL SQ SCH ×7 (10:17→22:50)
[2022-04-06] MEDS: CLOPIDOGREL 75 MG TAB PO SCH (10:20)
[2022-04-06] MEDS: GABAPENTIN 300 MG CAP PO SCH ×2 (10:20→19:57)
[2022-04-06] MEDS: CHOLECALCIFEROL 25 MCG (1000 IU) TABLET PO SCH (10:21)
[2022-04-06] MEDS: guaiFENesin 600 MG TABLET.ER PO SCH ×2 (10:21→19:57)
[2022-04-06] MEDS: METOPROLOL SUCCINATE (ER) 50 MG TAB.ER.24H PO SCH (10:21)
[2022-04-06] MEDS: TAMSULOSIN 0.4 MG CAP.ER.24H PO SCH (10:21)
[2022-04-06] MEDS: OXYBUTYNIN 10 MG TAB.ER.24 PO SCH (10:21)
[2022-04-06] MEDS: ASPIRIN 81 MG PO SCH (10:21)
[2022-04-06] MEDS: PANTOPRAZOLE 40 MG TABLET PO SCH (10:21)
[2022-04-06] MEDS: lisinopriL 10 MG TAB PO SCH (10:21)
[2022-04-06] MEDS: traMADol 50 MG TAB PO SCH ×2 (10:21→19:54)
[2022-04-06] MEDS: ATORVASTATIN 80 MG TAB PO SCH (10:23)
[2022-04-06 11:23] LABS: Basophils # (A) 0.01 X 10*3/uL (0.00-0.10); Basophils % (A) 0.2 %; Eosinophils # (A) 0 X 10*3/uL (0.04-0.35); Eosinophils % (A) 0 %; Immature Grans, Automated 0.5 %; Lymphocytes # (A) 0.27 X 10*3/uL (0.90-5.00); Lymphocytes % (A) 4.6 %; Monocytes # (A) 0.06 X 10*3/uL (0.20-1.00); Neutrophils # (A) 5.55 X 10*3/uL (1.80-7.70); Neutrophils % (A) 93.7 %
[2022-04-06 11:24] LABS: Acanthocytes 2+
[2022-04-06 11:24] LABS: Glucose,Whole Blood 431 mg/dL (75-99)
--- NOTE | 2022-04-06 12:25 | P.CNPUL ---
History of Present Illness Consult date: 04/06/22 Requesting physician: Shamar Paulson Reason for consult: dyspnea, hypoxemia, abnormal CXR/CT Chief complaint: Shortness of breath, acute hypoxic respiratory failure History of present illness: 76-year-old male patient with past medical history of chronic CHF with preserved LV function and EF of 50-55% moderate to severe aortic stenosis, coronary artery disease status post CABG, diabetes mellitus type 2, hypertension, underlying dementia, who was recently hospitalized for acute non- ST elevated myocardial infarction and in the course of his hospitalization he also was found to be COVID 19 positive. Patient's daughter found the patient increasingly short of breath and called EMS to take into the hospital for evaluation. His pulse ox was 88% on room air. Patient denied any chest pain, no worsening lower extremity edema, no nausea vomiting or diarrhea, no abdominal pain. No fever, no chills no sick contacts no cough. Overall patient is a poor historian. He is not normally on oxygen at home. Chest x-ray in emergency department showed COPD and a diffuse interstitial pattern with bilateral consolidation and small pleural effusions. Patient tested positive for COVID-19 again. Admission labs showed white blood cell count 7.6, hemoglobin of 12.3, platelet count of 185, INR of 0.9, sodium is 135, potassium is 5.1, chloride is 108, CO2 is 20, B1 is 24, creatinine 0.97, LFTs were within normal limits, troponin was 0.018, proBNP was 1640. Influenza A and B were negative. Patient has been afebrile while in the hospital, he is currently on 2 L of oxygen pulse ox of 95-97%, his d-dimer was elevated and CTA chest was completed showing no large central or definite lobar branch embolus. Most of the segmental and distal arterial branches were nondiagnostic related to patient's breathing through the scan. Heart size was borderline with an enlarging moderate-sized pleural effusions and adjacent atelectasis and subcarinal lymph node of 2.5 cm with the recommendation of 3 months follow-up. Patient has been started on IV Decadron 6 mg daily, he was started on IV Lasix 20 mg every 12 hours by cardiology. He does not appear to be in any acute distress. Review of Systems All systems: negative Constitutional: Denies chills, Denies fever Eyes: denies blurred vision, denies pain Ears, nose, mouth and throat: Denies headache, Denies sore throat Cardiovascular: Denies chest pain, Denies shortness of breath Respiratory: Reports dyspnea, Denies cough Gastrointestinal: Denies abdominal pain, Denies diarrhea, Denies nausea, Denies vomiting Musculoskeletal: Denies myalgias Integumentary: Denies pruritus, Denies rash Neurological: Denies numbness, Denies weakness Psychiatric: Denies anxiety, Denies depression Endocrine: Denies fatigue, Denies weight change Past Medical History Past Medical History: Coronary Artery Disease (CAD), Heart Failure, Dementia, Diabetes Mellitus, GERD/Reflux, Hyperlipidemia, Hypertension, Memory Impairment, Osteoarthritis (OA), Pneumonia, Prostate Disorder, Skin Disorder, Vascular Disorder Additional Past Medical History / Comment(s): Recent falls since diagnosed with covid and diarrhea/incontinence, IDDM type II, neuropathy in bilateral hands/feet, "beginnings" of dementia, systolic CHF, PAD, current wound L foot, BPH, chronic back pain, bronchitis, sinus issues. History of Any Multi-Drug Resistant Organisms: None Reported Past Surgical History: Coronary Bypass/CABG, Orthopedic Surgery Additional Past Surgical History / Comment(s): 2014 CABG 4 vessel/bioprosthetic aortic valve, angiograms, aortagram with bilateral run-offs, PTBA/atherectomy L leg, L foot surgery for crush injury, colonoscopy, bilateral cataract removals. Past Anesthesia/Blood Transfusion Reactions: No Reported Reaction Past Psychological History: Anxiety, Depression Additional Psychological History / Comment(s): Pt has a day, Rhoda, currently residing with him. His lashanda, Sagrario, lives near and assists with his care, she m anages his medications/checks blood sugar and gives him his insulin as well as assists with getting him meals. His lashanda, Medina drives him to appts. 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 Pt has PT/OT but lashanda cannot recall name of company. They are planning to hire someone to assist pt 3 days a week with ADLs/etc. Pt has been using a walker lately since diagnosed with covid. Smoking Status: Never smoker Past Alcohol Use History: Heavy Additional Past Alcohol Use History / Comment(s): Pt was a heavy drinker in the past but has not drank in 15-20 years. Past Drug Use History: None Reported - Past Family History Father Family Medical History: Congestive Heart Failure (CHF) Mother Family Medical History: Congestive Heart Failure (CHF) Medications and Allergies Home Medications Medication Instructions Recorded Confirmed Type Omeprazole [PriLOSEC] 20 mg PO DAILY 02/23/15 04/05/22 History Donepezil [Aricept] 10 mg PO HS #30 03/13/15 04/05/22 Rx amLODIPine BESYLATE [Norvasc] 10 mg PO HS 05/11/15 04/05/22 History Aspirin EC [Ecotrin Low Dose] 81 mg PO DAILY 03/07/17 04/05/22 History Metoprolol Succinate (ER) [Toprol 50 mg PO DAILY 03/07/17 04/05/22 History XL] Tamsulosin HCl [Flomax] 0.4 mg PO DAILY 03/07/17 04/05/22 History Furosemide [Lasix] 40 mg PO DAILY 11/08/19 04/05/22 History Insulin Aspart [NovoLOG Flexpen] See Protocol SQ TID-W/MEALS PRN 11/08/19 04/05/22 History Clopidogrel [Plavix] 75 mg PO DAILY 01/21/20 04/05/22 History Gabapentin [Neurontin] 300 mg PO BID #6 cap 01/23/20 04/05/22 Rx Amitriptyline HCl [Elavil] 25 mg PO HS 03/16/22 04/05/22 History Cholecalciferol [Vitamin D3 (25 50 mcg PO DAILY 03/16/22 04/05/22 History Mcg = 1000 Iu)] Oxybutynin Chloride [Oxybutynin 10 mg PO DAILY 03/16/22 04/05/22 History Chloride ER] Potassium Chloride ER [K-Dur 10] 10 meq PO DAILY 03/16/22 04/05/22 History traMADol HCL 50 mg PO BID 03/16/22 04/05/22 History Atorvastatin [Lipitor] 80 mg PO DAILY #30 tab 03/21/22 04/05/22 Rx INSULIN ASPART (NovoLOG) [NovoLOG 14 unit SQ AC-TID 2 Days ml 03/21/22 04/05/22 Rx (formulary)] guaiFENesin [Mucinex] 600 mg PO Q12HR tablet 03/21/22 04/05/22 Rx lisinopriL [Zestril] 10 mg PO DAILY #30 tab 03/21/22 04/05/22 Rx Insulin Glargine,Hum.rec.anlog 60 unit SQ W/LUNCH 04/05/22 04/05/22 History [Lantus Solostar Pen] Allergies Allergy/AdvReac Type Severity Reaction Status Date / Time No Known Allergies Allergy Verified 03/16/22 18:34 Physical Exam Vitals: Vital Signs Temp Pulse Pulse Resp BP BP Pulse Ox 04/06/22 08:00 98.5 F 69 18 140/65 95 04/06/22 00:33 98.2 F 72 21 144/77 97 04/05/22 23:04 75 18 129/75 95 04/05/22 19:23 75 20 153/75 94 L 04/05/22 18:48 70 18 143/64 95 04/05/22 15:00 75 20 148/71 96 04/05/22 13:23 98.5 F 71 20 153/75 90 L Intake and Output 04/05/22 04/06/22 04/06/22 22:59 06:59 14:59 Other: Voiding Method Diaper Incontinent # Voids 2 Weight 101.151 kg GENERAL EXAM: Alert, pleasant 76-year-old white male, on 2 L of oxygen and pulse ox of 95-97% comfortable in no apparent distress. HEAD: Normocephalic/atraumatic. EYES: Normal reaction of pupils, equal size. Conjunctiva pink, sclera white. NOSE: Clear with pink turbinates. THROAT: No erythema or exudates. NECK: No masses, no JVD, no thyroid enlargement, no adenopathy. CHEST: No chest wall deformity. Symmetrical expansion. LUNGS: Equal air entry with bilateral crackles CVS: Regular rate and rhythm, normal S1 and S2, no gallops, no murmurs, no rubs ABDOMEN: Soft, nontender. No hepatosplenomegaly, normal bowel sounds, no guarding or rigidity. EXTREMITIES: No clubbing, no edema, no cyanosis, 2+ pulses and upper and lower extremities. MUSCULOSKELETAL: Muscle strength and tone normal. SPINE: No scoliosis or deformity SKIN: No rashes CENTRAL NERVOUS SYSTEM: Alert and oriented -3. No focal deficits, tone is normal in all 4 extremities. PSYCHIATRIC: Alert and oriented -3. Appropriate affect. Intact judgment and insight. Results - Laboratory Findings CBC and BMP: 04/06/22 04:27 04/06/22 04:27 PT/INR, D-dimer PT 10.2 sec (9.0-12.0) 04/05/22 15:05 INR 0.9 (<1.2) 04/05/22 15:05 D-Dimer 0.87 mg/L FEU (<0.60) H 04/05/22 15:05 Abnormal lab findings: Abnormal Labs 04/05/22 04/05/22 04/05/22 14:05 14:05 14:05 RBC Hgb 12.3 L Hct 38.8 L MCH MCHC RDW Lymphocytes # 0.7 L Monocytes # Eosinophils # APTT D-Dimer Sodium 135 L Chloride 108 H Carbon Dioxide 20 L BUN 24 H Est GFR (CKD-EPI)NonAf Glucose 283 H POC Glucose (mg/dL) Calcium 8.2 L Total Bilirubin 2.0 H AST Total Protein Albumin Albumin/Globulin Ratio Coronavirus (PCR) Detected A 04/05/22 04/05/22 04/06/22 15:05 17:45 04:27 RBC 4.13 L Hgb 11.1 L Hct 35.2 L MCH 26.9 L MCHC 31.5 L RDW 14.7 H Lymphocytes # 0.27 L Monocytes # 0.06 L Eosinophils # 0 L APTT 19.5 L D-Dimer 0.87 H Sodium Chloride Carbon Dioxide BUN Est GFR (CKD-EPI)NonAf Glucose POC Glucose (mg/dL) 234 H Calcium Total Bilirubin AST Total Protein Albumin Albumin/Globulin Ratio Coronavirus (PCR) 04/06/22 04/06/22 04/06/22 04:27 08:38 11:23 RBC Hgb Hct MCH MCHC RDW Lymphocytes # Monocytes # Eosinophils # APTT D-Dimer Sodium Chloride Carbon Dioxide 19.9 L BUN Est GFR (CKD-EPI)NonAf 53.8 L Glucose 401 H POC Glucose (mg/dL) 450 H 431 H Calcium 8.2 L Total Bilirubin 1.60 H AST 13 L Total Protein 6.1 L Albumin 3.3 L Albumin/Globulin Ratio 1.18 L Coronavirus (PCR) - Diagnostic Findings Chest x-ray: report reviewed, image reviewed CT scan - chest: report reviewed, image reviewed Assessment and Plan Plan: Assessment: #1. Acute hypoxic respiratory failure, related to acute exacerbation of diastolic CHF #2. COVID-19 infection, patient was first diagnosed over 2 weeks ago, on 03/16/2022 while in the hospital with non-ST elevated myocardial infarction #3. Chronic CHF with diastolic dysfunction, moderately severe aortic stenosis, moderate mitral regurgitation, moderate tricuspid regurgitation #4. History of ischemic cardiomyopathy with improvement in the EF #5. Coronary artery disease with previous bypass surgeries #6. Diabetes mellitus type 2 #7. Dyslipidemia #8. Peripheral vascular disease #9. History of dementia Plan: Patient's chest x-ray and presentation more consistent with acute exacerbation of CHF In terms of COVID-19 treatment, patient is is outside the window for Remdesivir, Paxlovid or monoclonal antibodies We'll continue diuretics per cardiology recommendations Continue Decadron Continue prophylactic heparin Continue to follow clinical course I have personally seen and examined the patient, performed the documentation and the assessment and plan as written. Number of minutes spent on the visit: [15] Time with Patient: Greater than 30
[2022-04-06] MEDS ORDERED: INSULIN ASPART (NovoLOG) 100 UNIT/ML VIAL SQ SCH (12:30)
[2022-04-06] MEDS: FUROSEMIDE 10 MG/ML 2 ML VIAL IV SCH ×2 (12:32→20:08)
[2022-04-06] MEDS: INSULIN DETEMIR (LEVEMIR) 100 UNIT/ML SYR SQ SCH (12:36)
--- NOTE | 2022-04-06 15:32 | P.PN ---
Subjective Progress Note Date: 04/06/22 Principal diagnosis: acute on chronic diastolic heart failure patient says that his shortness of breath is about the same as yesterday. Patient also states that he is able to walk without much issues. 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0-200.0) Glucose (70-110) mg/dL POC Glucose (mg/dL) 234 H (75-99) mg/dL Calcium (8.7-10.3) mg/dL Total Bilirubin (0.30-1.20) mg/dL AST (14-35) U/L Total Protein (6.2-8.2) g/dL Albumin (3.8-4.9) g/dL Albumin/Globulin Ratio (1.60-3.17) g/dL 04/06/22 04/06/22 04/06/22 Range/Units 04:27 08:38 11:23 RBC (4.40-5.60) X 10*6/uL Hgb (13.0-17.0) g/dL Hct (39.6-50.0) % MCH (27.0-32.0) pg MCHC (32.0-37.0) g/dL RDW (11.5-14.5) % Lymphocytes # (0.90-5.00) X 10*3/uL Monocytes # (0.20-1.00) X 10*3/uL Eosinophils # (0.04-0.35) X 10*3/uL APTT (22.0-30.0) sec D-Dimer (<0.60) mg/L FEU Carbon Dioxide 19.9 L (20.0-27.5) mmol/L Est GFR (CKD-EPI)NonAf 53.8 L (60.0-200.0) Glucose 401 H (70-110) mg/dL POC Glucose (mg/dL) 450 H 431 H (75-99) mg/dL Calcium 8.2 L (8.7-10.3) mg/dL Total Bilirubin 1.60 H (0.30-1.20) mg/dL AST 13 L (14-35) U/L Total Protein 6.1 L (6.2-8.2) g/dL Albumin 3.3 L (3.8-4.9) g/dL Albumin/Globulin Ratio 1.18 L (1.60-3.17) g/dL Assessment and Plan Assessment: Acute hypoxic respiratory failure Acute on chronic diastolic heart failure COVID-19 diagnosed over 2 weeks ago on 03/16/2022 -Chest x-ray is more consistent with heart failure -Patient is outside the window for remdesivir, paxlovid or monoclonal antibodies -Resume IV Lasix 20 mg twice a day -Continue with Decadron -Continue with subcu heparin -Patient currently satting well on 2 L nasal cannula Coronary disease status post bypass Peripheral vascular disease -Resume aspirin, statin, Plavix, lisinopril, beta sera Diabetes mellitus type 2 -Uncontrolled -Titrate blood glucose for better control Dyslipidemia -Resume statin History of dementia -Resume donepezil DVT prophylaxis: Subcu heparin Anticipate patient be ready for discharge in the next 24 hours. Patient will need a home O2 eval prior to discharge
[2022-04-06 17:00] LABS: Glucose,Whole Blood 373 mg/dL (75-99)
[2022-04-06 19:46] LABS: Glucose,Whole Blood 328 mg/dL (75-99)
[2022-04-06] MEDS: amLODIPine 10 MG TAB PO SCH (19:55)
[2022-04-06] MEDS: AMITRIPTYLINE HCL 25 MG TAB PO SCH (19:56)
[2022-04-06] MEDS: DONEPEZIL 10 MG TAB PO SCH (19:57)
[2022-04-06 22:37] LABS: Glucose,Whole Blood 272 mg/dL (75-99)
[2022-04-07 06:15] LABS: African American GFR (CKD) 61 (>60 ml/min/1.73 sqM); Anion Gap 9 mmol/L; Blood Urea Nitrogen 38 mg/dL (9-20); Calcium 8.3 mg/dL (8.4-10.2); Carbon Dioxide 18 mmol/L (22-30); Chloride 107 mmol/L (98-107); Glucose 228 mg/dL (74-99); Non-African American GFR(CKD) 53 (>60 ml/min/1.73 sqM); Potassium 4.4 mmol/L (3.5-5.1); Sodium 134 mmol/L (137-145)
[2022-04-07 07:18] LABS: Glucose,Whole Blood 264 mg/dL (75-99)
[2022-04-07] MEDS: DEXAMETHASONE SOD PHOSPHATE 10 MG/ML 1 ML VIAL IVP SCH (08:30)
[2022-04-07] MEDS: HEPARIN SODIUM,PORCINE/PF 5,000 UNIT/0.5 ML SYRINGE SQ SCH (08:30)
[2022-04-07] MEDS: GABAPENTIN 300 MG CAP PO SCH (08:31)
[2022-04-07] MEDS: OXYBUTYNIN 10 MG TAB.ER.24 PO SCH (08:31)
[2022-04-07] MEDS: ASPIRIN 81 MG PO SCH (08:31)
[2022-04-07] MEDS: ATORVASTATIN 80 MG TAB PO SCH (08:31)
[2022-04-07] MEDS: lisinopriL 10 MG TAB PO SCH (08:31)
[2022-04-07] MEDS: CHOLECALCIFEROL 25 MCG (1000 IU) TABLET PO SCH (08:31)
[2022-04-07] MEDS: guaiFENesin 600 MG TABLET.ER PO SCH (08:31)
[2022-04-07] MEDS: FUROSEMIDE 10 MG/ML 2 ML VIAL IV SCH (08:31)
[2022-04-07] MEDS: TAMSULOSIN 0.4 MG CAP.ER.24H PO SCH (08:31)
[2022-04-07] MEDS: CLOPIDOGREL 75 MG TAB PO SCH (08:31)
[2022-04-07] MEDS: PANTOPRAZOLE 40 MG TABLET PO SCH (08:31)
[2022-04-07] MEDS: METOPROLOL SUCCINATE (ER) 50 MG TAB.ER.24H PO SCH (08:31)
[2022-04-07] MEDS: traMADol 50 MG TAB PO SCH (08:32)
[2022-04-07] MEDS: INSULIN ASPART (NovoLOG) 100 UNIT/ML VIAL SQ SCH ×6 (08:32→17:14)
[2022-04-07 09:00] LABS: Basophils # (A) 0 X 10*3/uL (0.00-0.10); Basophils % (A) 0 %; Eosinophils # (A) 0 X 10*3/uL (0.04-0.35); Eosinophils % (A) 0 %; HCT 33.5 % (39.6-50.0); HGB 10.5 g/dL (13.0-17.0); Immature Grans, Automated 0.4 %; Lymphocytes # (A) 0.63 X 10*3/uL (0.90-5.00); Lymphocytes % (A) 6.8 %; MCH 26.6 pg (27.0-32.0); MCHC 31.3 g/dL (32.0-37.0); Mean Platelet Volume 10.5 fL (9.5-12.2); Monocytes # (A) 0.55 X 10*3/uL (0.20-1.00); NRBC Per 100 WBC 0 /100 WBCS (0.0-0.0); Neutrophils # (A) 7.99 X 10*3/uL (1.80-7.70); Neutrophils % (A) 86.8 %; Platelet Count 160 X 10*3/uL (140-440); RBC 3.94 X 10*6/uL (4.40-5.60); RDW 14.5 % (11.5-14.5); WBC 9.21 X 10*3/uL (4.50-10.00)
--- NOTE | 2022-04-07 10:49 | P.PN ---
Subjective This is a pleasant 76-year-old male past medical history significant for coronary artery disease status post prior CABG in 2015, ischemic cardiomyopathy with improvement in EF, moderate to severe aortic stenosis, type 2 diabetes, hypertension, dyslipidemia, dementia, peripheral vascular disease. He follows in the office with Dr. Hodges. We have been asked to see in consultation for congestive heart failure. Patient presents emergency department from home with symptoms of lower extremity edema and hypoxia. Patient does not recall why he is in the hospital. He is a poor historian. He does remember being in the ambulance. He currently denies any shortness of breath, chest pain, nausea, vomiting, lightheadedness or dizziness. He denies orthopnea or PND. He denies any cough or fever. Does endorse chills. He is diagnosed with Covid-19. Recent echocardiogram in the office 03/03/2022 revealed EF 55%, grade 2 diastolic dysfunction, moderate concentric LVH, severely dilated left atrium, mild aortic regurgitation and moderate severe aortic stenosis, moderate mitral regurgitation, mild to moderate tricuspid regurgitation Chest CT report revealed no large central definite lobar branch embolus, most of the segmental and more distal arterial branches to nondiagnostic emboli in these locations cannot be excluded. Borderline heart size is enlarged to monitor the size pleural effusions. Subcarinal lymph node is enlarged at 2.5 cm. Possibly reactive. 04/07/2022 Patient seen and examined at bedside, no acute distress. He denies any shortness of breath or chest pain. He continues to have lower extremity edema. He has no complaints. He continues to be on IV Lasix 20 mg twice a day. Patient with episodes of incontinence and unable to accurately measure output. Sodium 134, potassium 4.4, BUN 38, serum creatinine 1.3, WBC 9.2, hemoglobin 10.5, platelets 160. PHYSICAL EXAMINATION Vitals reviewed CONSTITUTIONAL: No apparent distress. HEENT: Head is normocephalic. Pupils are equal, round. Sclerae anicteric. Mucous membranes of the mouth are moist. No JVD. No carotid bruit. CHEST EXAMINATION: Lungs are mild crackles in the bases bilaterally to auscultation. No chest wall tenderness is noted on palpation or with deep breathing. HEART EXAMINATION: Regular rate and rhythm. S1, S2 heard. Systolic murmur at right sternal borrder. No gallops or rub. ABDOMEN: Soft, nontender. Positive bowel sounds. EXTREMITIES: 2+ peripheral pulses, 2+ bilateral lower extremity edema and no calf tenderness. NEUROLOGIC EXAMINATION: Patient is awake, alert and oriented x 2. ASSESSMENT Acute on chronic heart failure with preserved ejection fraction Covid-19 Infection Coronary artery disease status post prior CABG in 2014 Ischemic cardiomyopathy with improvement in EF Moderate to severe aortic stenosis Type 2 diabetes Hypertension Dyslipidemia Dementia Peripheral vascular disease PLAN Recommend continuing IV Lasix 20mg BID for additional 24 hours Monitor renal function and electrolytes, I/Os, daily weights Continue home cardiac medications Covid-19 management per primary Further recommendations based on clinical course Nurse practitioner note has been reviewed by physician. Signing provider agrees with the documented findings, assessment, and plan of care. Objective - Vital Signs Vital signs: Vital Signs Temp 98.2 F 04/07/22 07:41 Pulse 65 04/07/22 07:41 Resp 17 04/07/22 07:41 BP 124/71 04/07/22 07:41 Pulse Ox 96 04/07/22 07:41 Intake & Output 04/06/22 04/07/22 04/07/22 18:59 06:59 18:59 Output Total 200 Balance -200 Output: Urine 200 Other: Voiding Method Diaper Incontinent - Labs CBC & Chem 7: 04/07/22 04:55 04/07/22 04:55 Labs: Abnormal Lab Results - Last 24 Hours (Table) 04/06/22 04/06/22 04/06/22 Range/Units 04:27 11:23 16:58 RBC (4.40-5.60) X 10*6/uL Hgb (13.0-17.0) g/dL Hct (39.6-50.0) % MCH (27.0-32.0) pg MCHC (32.0-37.0) g/dL Neutrophils # (1.80-7.70) X 10*3/uL Lymphocytes # 0.27 L (0.90-5.00) X 10*3/uL Monocytes # 0.06 L (0.20-1.00) X 10*3/uL Eosinophils # 0 L (0.04-0.35) X 10*3/uL Sodium (137-145) mmol/L Carbon Dioxide (22-30) mmol/L BUN (9-20) mg/dL Creatinine (0.66-1.25) mg/dL Glucose (74-99) mg/dL POC Glucose (mg/dL) 431 H 373 H (75-99) mg/dL Calcium (8.4-10.2) mg/dL 04/06/22 04/06/22 04/07/22 Range/Units 19:44 22:36 04:55 RBC (4.40-5.60) X 10*6/uL Hgb (13.0-17.0) g/dL Hct (39.6-50.0) % MCH (27.0-32.0) pg MCHC (32.0-37.0) g/dL Neutrophils # (1.80-7.70) X 10*3/uL Lymphocytes # (0.90-5.00) X 10*3/uL Monocytes # (0.20-1.00) X 10*3/uL Eosinophils # (0.04-0.35) X 10*3/uL Sodium 134 L (137-145) mmol/L Carbon Dioxide 18 L (22-30) mmol/L BUN 38 H (9-20) mg/dL Creatinine 1.32 H (0.66-1.25) mg/dL Glucose 228 H (74-99) mg/dL POC Glucose (mg/dL) 328 H 272 H (75-99) mg/dL Calcium 8.3 L (8.4-10.2) mg/dL 04/07/22 04/07/22 Range/Units 04:55 07:16 RBC 3.94 L (4.40-5.60) X 10*6/uL Hgb 10.5 L (13.0-17.0) g/dL Hct 33.5 L (39.6-50.0) % MCH 26.6 L (27.0-32.0) pg MCHC 31.3 L (32.0-37.0) g/dL Neutrophils # 7.99 H (1.80-7.70) X 10*3/uL Lymphocytes # 0.63 L (0.90-5.00) X 10*3/uL Monocytes # (0.20-1.00) X 10*3/uL Eosinophils # 0 L (0.04-0.35) X 10*3/uL Sodium (137-145) mmol/L Carbon Dioxide (22-30) mmol/L BUN (9-20) mg/dL Creatinine (0.66-1.25) mg/dL Glucose (74-99) mg/dL POC Glucose (mg/dL) 264 H (75-99) mg/dL Calcium (8.4-10.2) mg/dL
[2022-04-07 12:00] LABS: Glucose,Whole Blood 326 mg/dL (75-99)
--- NOTE | 2022-04-07 12:15 | P.PN ---
Subjective Progress Note Date: 04/07/22 76-year-old male patient with past medical history of chronic CHF with preserved LV function and EF of 50-55% moderate to severe aortic stenosis, coronary artery disease status post CABG, diabetes mellitus type 2, hypertension, underlying dementia, who was recently hospitalized for acute non-ST elevated myocardial infarction and in the course of his hospitalization he also was found to be COVID 19 positive. Patient's daughter found the patient increasingly short of breath and called EMS to take into the hospital for evaluation. His pulse ox was 88% on room air. Patient denied any chest pain, no worsening lower extremity edema, no nausea vomiting or diarrhea, no abdominal pain. No fever, no chills no sick contacts no cough. Overall patient is a poor historian. He is not normally on oxygen at home. Chest x-ray in emergency department showed COPD and a diffuse interstitial pattern with bilateral consolidation and small pleural effusions. Patient tested positive for COVID-19 again. Admission labs showed white blood cell count 7.6, hemoglobin of 12.3, platelet count of 185, INR of 0.9, sodium is 135, potassium is 5.1, chloride is 108, CO2 is 20, B1 is 24, creatinine 0.97, LFTs were within normal limits, troponin was 0.018, proBNP was 1640. Influenza A and B were negative. Patient has been afebrile while in the hospital, he is currently on 2 L of oxygen pulse ox of 95-97%, his d-dimer was elevated and CTA chest was completed showing no large central or definite lobar branch embolus. Most of the segmental and distal arterial branches were nondiagnostic related to patient's breathing through the scan. Heart size was borderline with an enlarging moderate-sized pleural effusions and adjacent atelectasis and subcarinal lymph node of 2.5 cm with the recommendation of 3 months follow-up. Patient has been started on IV Decadron 6 mg daily, he was started on IV Lasix 20 mg every 12 hours by cardiology. He does not appear to be in any acute distress. The patient is seen today 04/07/2022 in follow-up on the regular medical floor. He is currently sitting up in the bedside. Awake and alert in no acute distress. Feeling quite a bit better today compared to yesterday. He is maintained on O2 saturations in the upper 90s on 2 L/m per nasal cannula. On room air its 93% with exercise. White count 9.2. Hemoglobin 10.5. Sodium 134. Potassium 4.4. BUN 38. Creatinine 1.32. Glucose 228. He is continued on Decadron, subcutaneous heparin, Lasix 20 mg IV every 12 hours. He is incontinent of urine. Objective - Vital Signs Vital signs: Vital Signs Temp 98.2 F 04/07/22 07:41 Pulse 65 04/07/22 07:41 Resp 17 04/07/22 07:41 BP 124/71 04/07/22 07:41 Pulse Ox 97 04/07/22 08:58 Intake & Output 04/06/22 04/07/22 04/07/22 18:59 06:59 18:59 Output Total 200 Balance -200 Output: Urine 200 Other: Voiding Method Diaper Incontinent - Exam GENERAL EXAM: Alert, pleasant 76-year-old male patient, on 2 L of oxygen and pulse ox of 96% comfortable in no apparent distress. HEAD: Normocephalic/atraumatic. EYES: Normal reaction of pupils, equal size. Conjunctiva pink, sclera white. NOSE: Clear with pink turbinates. THROAT: No erythema or exudates. NECK: No masses, no JVD, no thyroid enlargement, no adenopathy. CHEST: No chest wall deformity. Symmetrical expansion. LUNGS: Equal air entry with bilateral crackles CVS: Regular rate and rhythm, normal S1 and S2, no gallops, no murmurs, no rubs ABDOMEN: Soft, nontender. No hepatosplenomegaly, normal bowel sounds, no guarding or rigidity. EXTREMITIES: No clubbing, no edema, no cyanosis, 2+ pulses and upper and lower extremities. MUSCULOSKELETAL: Muscle strength and tone normal. SPINE: No scoliosis or deformity SKIN: No rashes CENTRAL NERVOUS SYSTEM: No focal deficits, tone is normal in all 4 extremities. PSYCHIATRIC: Alert and oriented -3. Appropriate affect. Intact judgment and insight. - Labs CBC & Chem 7: 04/07/22 04:55 04/07/22 04:55 Labs: Abnormal Lab Results - Last 24 Hours (Table) 04/06/22 04/06/22 04/06/22 Range/Units 16:58 19:44 22:36 RBC (4.40-5.60) X 10*6/uL Hgb (13.0-17.0) g/dL Hct (39.6-50.0) % MCH (27.0-32.0) pg MCHC (32.0-37.0) g/dL Neutrophils # (1.80-7.70) X 10*3/uL Lymphocytes # (0.90-5.00) X 10*3/uL Eosinophils # (0.04-0.35) X 10*3/uL Sodium (137-145) mmol/L Carbon Dioxide (22-30) mmol/L BUN (9-20) mg/dL Creatinine (0.66-1.25) mg/dL Glucose (74-99) mg/dL POC Glucose (mg/dL) 373 H 328 H 272 H (75-99) mg/dL Calcium (8.4-10.2) mg/dL 04/07/22 04/07/22 04/07/22 Range/Units 04:55 04:55 07:16 RBC 3.94 L (4.40-5.60) X 10*6/uL Hgb 10.5 L (13.0-17.0) g/dL Hct 33.5 L (39.6-50.0) % MCH 26.6 L (27.0-32.0) pg MCHC 31.3 L (32.0-37.0) g/dL Neutrophils # 7.99 H (1.80-7.70) X 10*3/uL Lymphocytes # 0.63 L (0.90-5.00) X 10*3/uL Eosinophils # 0 L (0.04-0.35) X 10*3/uL Sodium 134 L (137-145) mmol/L Carbon Dioxide 18 L (22-30) mmol/L BUN 38 H (9-20) mg/dL Creatinine 1.32 H (0.66-1.25) mg/dL Glucose 228 H (74-99) mg/dL POC Glucose (mg/dL) 264 H (75-99) mg/dL Calcium 8.3 L (8.4-10.2) mg/dL 04/07/22 Range/Units 11:59 RBC (4.40-5.60) X 10*6/uL Hgb (13.0-17.0) g/dL Hct (39.6-50.0) % MCH (27.0-32.0) pg MCHC (32.0-37.0) g/dL Neutrophils # (1.80-7.70) X 10*3/uL Lymphocytes # (0.90-5.00) X 10*3/uL Eosinophils # (0.04-0.35) X 10*3/uL Sodium (137-145) mmol/L Carbon Dioxide (22-30) mmol/L BUN (9-20) mg/dL Creatinine (0.66-1.25) mg/dL Glucose (74-99) mg/dL POC Glucose (mg/dL) 326 H (75-99) mg/dL Calcium (8.4-10.2) mg/dL Assessment and Plan Assessment: 1 Acute hypoxic respiratory failure, related to acute exacerbation of diastolic CHF 2 COVID-19 infection, patient was first diagnosed over 2 weeks ago, on 03/16/2022 while in the hospital with non-ST elevated myocardial infarction 3 Chronic CHF with diastolic dysfunction, moderately severe aortic stenosis, moderate mitral regurgitation, moderate tricuspid regurgitation 4 History of ischemic cardiomyopathy with improvement in the EF 5 Coronary artery disease with previous bypass surgeries 6 Diabetes mellitus type 2 7 Dyslipidemia 8 Peripheral vascular disease 9 History of dementia Plan: The patient was seen and evaluated He is improved and on 2 L nasal cannula Titrate the FiO2 as tolerated Continue diuretics per cardiology Remains on Decadron We will see as needed I have personally seen and examined the patient, performed the documentation and the assessment and plan as written. Number of minutes spent on the visit: 10.
[2022-04-07] MEDS: INSULIN DETEMIR (LEVEMIR) 100 UNIT/ML SYR SQ SCH (12:35)
--- NOTE | 2022-04-07 13:29 | P.DS ---
Providers Date of admission: 04/05/22 17:04 Expected date of discharge: 04/07/22 Attending physician: Vincenzo Knight MD Consults: 04/05/22 18:10 Consult Physician Routine Consulting Provider: Chandler Brice Consult Reason/Comments: bilateral pleural effusions, covid 19 Do you want consulting provider notified?: Yes, Notify in am 04/05/22 18:40 Consult Physician Routine Consulting Provider: Francis Montgomery Consult Reason/Comments: heart failure Do you want consulting provider notified?: Yes Primary care physician: Valente Lopez [facility] Course: Discharge Diagnosis: Acute hypoxemic respiratory failure History of COVID-19 Acute on chronic diastolic heart failure Coronary disease Diabetes Hypertension Hyperlipidemia Dementia Hospital Course: Patient is a 76-year-old male with a past medical history of coronary disease, diastolic congestive heart failure, diabetes, hypertension, hyperlipidemia, dementia who presents to the ED with shortness of breath. Patient was diagnosed with COVID-19 2 weeks ago. In the ED patient's chest x-ray showed vascular congestion and diffuse interstitial pattern consistent with acute on chronic diastolic heart failure. Patient also told me that he does not really watch how much she drinks. He states that he drinks 2 bottles of soda and 2 cups of coffee and then a water per day. Patient was started on IV Lasix 20 mg twice a day. After couple days of diuresing patient states that he is feeling much better and would like to go home. Patient had home O2 eval done and did not qualify for oxygen. Patient was then deemed stable for discharge. I did have a lengthy discussion with the patient and counseled him on fluid restriction. However with his history of dementia this can be challenging. Patient also told to follow-up with cardiology to closely monitor his renal function. Trend his hospitalization patient's creatinine was stable around 1.3. 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 Patient Condition at Discharge: Poor Plan - Discharge Summary Discharge Rx Participant: Yes New Discharge Prescriptions: Continue Omeprazole [PriLOSEC] 20 mg PO DAILY Donepezil [Aricept] 10 mg PO HS #30 Aspirin EC [Ecotrin Low Dose] 81 mg PO DAILY Metoprolol Succinate (ER) [Toprol XL] 50 mg PO DAILY Tamsulosin HCl [Flomax] 0.4 mg PO DAILY Furosemide [Lasix] 40 mg PO DAILY Insulin Aspart [NovoLOG Flexpen] See Protocol SQ TID-W/MEALS PRN PRN Reason: HIGH BLOOD SUGAR Clopidogrel [Plavix] 75 mg PO DAILY Gabapentin [Neurontin] 300 mg PO BID #6 cap traMADol HCL 50 mg PO BID Atorvastatin [Lipitor] 80 mg PO DAILY #30 tab Insulin Glargine,Hum.rec.anlog [Lantus Solostar Pen] 60 unit SQ W/LUNCH Oxybutynin Chloride [Oxybutynin Chloride ER] 10 mg PO DAILY Potassium Chloride ER [K-Dur 10] 10 meq PO DAILY Cholecalciferol [Vitamin D3 (25 Mcg = 1000 Iu)] 50 mcg PO DAILY Amitriptyline HCl [Elavil] 25 mg PO HS guaiFENesin [Mucinex] 600 mg PO Q12HR tablet INSULIN ASPART (NovoLOG) [NovoLOG (formulary)] 14 unit SQ AC-TID 2 Days ml lisinopriL [Zestril] 10 mg PO DAILY #30 tab Discontinued amLODIPine BESYLATE [Norvasc] 10 mg PO HS Discharge Medication List Omeprazole [PriLOSEC] 20 mg PO DAILY 02/23/15 [History] Donepezil [Aricept] 10 mg PO HS #30 03/13/15 [Rx] Aspirin EC [Ecotrin Low Dose] 81 mg PO DAILY 03/07/17 [History] Metoprolol Succinate (ER) [Toprol XL] 50 mg PO DAILY 03/07/17 [History] Tamsulosin HCl [Flomax] 0.4 mg PO DAILY 03/07/17 [History] Furosemide [Lasix] 40 mg PO DAILY 11/08/19 [History] Insulin Aspart [NovoLOG Flexpen] See Protocol SQ TID-W/MEALS PRN 11/08/19 [History] Clopidogrel [Plavix] 75 mg PO DAILY 01/21/20 [History] Gabapentin [Neurontin] 300 mg PO BID #6 cap 01/23/20 [Rx] Amitriptyline HCl [Elavil] 25 mg PO HS 03/16/22 [History] Cholecalciferol [Vitamin D3 (25 Mcg = 1000 Iu)] 50 mcg PO DAILY 03/16/22 [History] Oxybutynin Chloride [Oxybutynin Chloride ER] 10 mg PO DAILY 03/16/22 [History] Potassium Chloride ER [K-Dur 10] 10 meq PO DAILY 03/16/22 [History] traMADol HCL 50 mg PO BID 03/16/22 [History] Atorvastatin [Lipitor] 80 mg PO DAILY #30 tab 03/21/22 [Rx] INSULIN ASPART (NovoLOG) [NovoLOG (formulary)] 14 unit SQ AC-TID 2 Days ml 03/21/22 [Rx] guaiFENesin [Mucinex] 600 mg PO Q12HR tablet 03/21/22 [Rx] lisinopriL [Zestril] 10 mg PO DAILY #30 tab 03/21/22 [Rx] Insulin Glargine,Hum.rec.anlog [Lantus Solostar Pen] 60 unit SQ W/LUNCH 04/05/22 [History] Follow up Appointment(s)/Referral(s): Valente Sharma MD [Primary Care Provider] - 1-2 days [facility] Visiting Nurse, [NON-STAFF] - ([facility] will contact you to arrange a visit. ) Francis Montgomery DO [STAFF PHYSICIAN] - 1 Week Discharge Disposition: HOME SELF-CARE
[2022-04-07 14:12] VITALS: BP 114/59; PULSE 60; RESP 18; TEMP 97.5
[2022-04-07 16:54] LABS: Glucose,Whole Blood 264 mg/dL (75-99)
== END 2022-04-07 18:01 | disposition home health service (06) | DRG 177 ==
LOC: EC 13:18 → 4SSUR 17:04
PROVIDERS: ADMIT Internal Medicine; ATTEND Internal Medicine
PROC: 3E0F7SF Introduction of Other Gas into Respiratory Tract, Via Natural or Artificial Opening (ICD-10-PCS; principal; 2022-04-05)
DX: U07.1 COVID-19 (principal); I50.43 Acute on chronic combined systolic (congestive) and diastolic (congestive) heart failure; J12.82 Pneumonia due to coronavirus disease 2019; J96.01 Acute respiratory failure with hypoxia; J44.0 Chronic obstructive pulmonary disease with (acute) lower respiratory infection; J98.11 Atelectasis; D64.9 Anemia, unspecified; E11.51 Type 2 diabetes mellitus with diabetic peripheral angiopathy without gangrene; E78.5 Hyperlipidemia, unspecified; F03.90 Unspecified dementia, unspecified severity, without behavioral disturbance, psychotic disturbance, mood disturbance, and anxiety; E11.42 Type 2 diabetes mellitus with diabetic polyneuropathy; F32.A Depression, unspecified; G89.29 Other chronic pain; J40 Bronchitis, not specified as acute or chronic; F41.9 Anxiety disorder, unspecified; M54.9 Dorsalgia, unspecified; I08.3 Combined rheumatic disorders of mitral, aortic and tricuspid valves; I11.0 Hypertensive heart disease with heart failure; I25.10 Atherosclerotic heart disease of native coronary artery without angina pectoris; I25.2 Old myocardial infarction; I25.5 Ischemic cardiomyopathy; I44.0 Atrioventricular block, first degree; N40.0 Benign prostatic hyperplasia without lower urinary tract symptoms; R32 Unspecified urinary incontinence; Z79.02 Long term (current) use of antithrombotics/antiplatelets; Z79.4 Long term (current) use of insulin; Z79.82 Long term (current) use of aspirin; Z79.899 Other long term (current) drug therapy; Z82.49 Family history of ischemic heart disease and other diseases of the circulatory system; Z95.1 Presence of aortocoronary bypass graft; Z95.3 Presence of xenogenic heart valve; Z98.42 Cataract extraction status, left eye; Z98.41 Cataract extraction status, right eye; Z86.79 Personal history of other diseases of the circulatory system
CPT/HCPCS: 36415; 71046; 71275; 80048; 80053; 83880; 84484; 85025; 85379; 85610; 85730; 87502; 87635; 93005; 96374; 96375; 99285

== ENCOUNTER 2022-11-15 13:06 | Emergency (ER) | payer MEDICARE, BC ==
[2022-11-15 13:22] VITALS: RESP 20; TEMP 98.3
[2022-11-15] MEDS ORDERED: SODIUM CHLORIDE 0.9% 500 ML 500 ML IV ONE (13:35)
--- NOTE | 2022-11-15 13:44 | ED ---
General Adult HPI - General Chief complaint: Weakness Stated complaint: Weakness Time Seen by Provider: 11/15/22 13:24 Source: EMS, RN notes reviewed, old records reviewed Mode of arrival: EMS Limitations: no limitations - History of Present Illness Initial comments: Patient is a 77-year-old male who presents emergency Department complaining of increased confusion, weakness over the past week. Patient's daughter is at the primary historians. Patient is alert and oriented 2-3 which is below baseline per daughters. It is also more weak lately, being unable to stand on his own. They wanted him to be evaluated. He has had increased falls, most notably 4 weeks ago but family is uncertain if he has fallen since. Symptoms started approximately 1 week ago with the worsening confusion and weakness. Has progressively worsened. No known falls within the last 3-4 days. Unknown regarding prior episodes. It is not on blood thinners. Patient is on Plavix. Presents for further evaluation of this time. He is endorsing left-sided hip pain, knee pain. This is new per patient. Denies chest pain or shortness of breath. No other acute complaints at this time. - Related Data Home Medications Medication Instructions Recorded Confirmed Omeprazole [PriLOSEC] 20 mg PO DAILY 02/23/15 11/15/22 Aspirin EC [Ecotrin Low Dose] 81 mg PO DAILY 03/07/17 11/15/22 Metoprolol Succinate (ER) [Toprol 50 mg PO DAILY 03/07/17 11/15/22 XL] Tamsulosin HCl [Flomax] 0.4 mg PO DAILY 03/07/17 11/15/22 Furosemide [Lasix] 40 mg PO DAILY 11/08/19 11/15/22 Insulin Aspart [NovoLOG Flexpen] See Protocol SQ TID-W/MEALS PRN 11/08/19 11/15/22 Clopidogrel [Plavix] 75 mg PO DAILY 01/21/20 11/15/22 Amitriptyline HCl [Elavil] 25 mg PO HS 03/16/22 11/15/22 Cholecalciferol [Vitamin D3 (25 50 mcg PO DAILY 03/16/22 11/15/22 Mcg = 1000 Iu)] Oxybutynin Chloride [Oxybutynin 10 mg PO DAILY 03/16/22 11/15/22 Chloride ER] Potassium Chloride ER [K-Dur 10] 10 meq PO DAILY 03/16/22 11/15/22 traMADol HCL 50 mg PO BID 03/16/22 11/15/22 Insulin Glargine,Hum.rec.anlog 60 unit SQ W/LUNCH 04/05/22 11/15/22 [Lantus Solostar Pen] Gentamicin 0.1% Cream 1 applic TOPICAL DAILY 11/15/22 11/15/22 Previous Rx's Medication Instructions Recorded Donepezil [Aricept] 10 mg PO HS #30 03/13/15 Gabapentin [Neurontin] 300 mg PO BID #6 cap 01/23/20 Atorvastatin [Lipitor] 80 mg PO DAILY #30 tab 03/21/22 INSULIN ASPART (NovoLOG) [NovoLOG 14 unit SQ AC-TID 2 Days ml 03/21/22 (formulary)] guaiFENesin [Mucinex] 600 mg PO Q12HR tablet 03/21/22 lisinopriL [Zestril] 10 mg PO DAILY #30 tab 03/21/22 Allergies Allergy/AdvReac Type Severity Reaction Status Date / Time No Known Allergies Allergy Verified 11/15/22 15:25 Review of Systems ROS Statement: Those systems with pertinent positive or pertinent negative responses have been documented in the HPI. Review of Systems: CONST: Denies fever EYES: Denies blurry vision ENT: Denies nasal congestion C/V: Denies Chest pain RESP: Denies shortness of breath GI: Denies abdominal pain : Denies dysuria SKIN: Denies rash. MSK: Endorses left hip pain, knee pain NEURO: Denies headache ROS Other: All systems not noted in ROS Statement are negative. Past Medical History Past Medical History: Coronary Artery Disease (CAD), Heart Failure, Dementia, Diabetes Mellitus, GERD/Reflux, Hyperlipidemia, Hypertension, Memory Impairment, Osteoarthritis (OA), Pneumonia, Prostate Disorder, Skin Disorder, Vascular Disorder Additional Past Medical History / Comment(s): Recent falls since diagnosed with covid and diarrhea/incontinence, IDDM type II, neuropathy in bilateral hands/feet, "beginnings" of dementia, systolic CHF, PAD, current wound L foot, BPH, chronic back pain, bronchitis, sinus issues. History of Any Multi-Drug Resistant Organisms: None Reported Past Surgical History: Coronary Bypass/CABG, Orthopedic Surgery Additional Past Surgical History / Comment(s): 2014 CABG 4 vessel/bioprosthetic aortic valve, angiograms, aortagram with bilateral run-offs, PTBA/atherectomy L leg, L foot surgery for crush injury, colonoscopy, bilateral cataract removals. Past Anesthesia/Blood Transfusion Reactions: No Reported Reaction Past Psychological History: Anxiety, Depression Smoking Status: Never smoker Past Alcohol Use History: Heavy Past Drug Use History: None Reported - Past Family History Father Family Medical History: Congestive Heart Failure (CHF) Mother Family Medical History: Congestive Heart Failure (CHF) General Exam - General Exam Comments Initial Comments: General: Appears in no acute distress. HEAD: Normal with no signs of head trauma. Negative silva sign. Negative raccoon eyes. EYES: Patient has a chronic anisocoria, with left pupil slightly larger than the right. Patient states he has been told this numerous times previously. ENT: Hearing grossly intact, normal oropharynx. RESPIRATORY: Clear breath sounds bilaterally. No wheezes, rales, or rhonchi. C/V: Regular rate and rhythm. S1 and S2 auscultated, no edema, peripheral pulse s 2+ and intact throughout ABD: Abd is soft, nontender, nondistended EXT: Normal range of motion, no obvious deformity. Tenderness to palpation over the left hip. Tenderness to palpation of the left knee. SKIN: No rashes or lesions observed on exposed skin. NEURO: Alert and oriented 2. No focal deficits. GCS of 15. NIH is 0. Moving all 4 extremities. Limitations: no limitations Course Vital Signs 11/15/22 11/15/22 13:07 18:17 Temperature 98.3 F Pulse Rate 110 H 78 Respiratory 20 20 Rate Blood Pressure 128/90 157/56 O2 Sat by Pulse 98 96 Oximetry Medical Decision Making - Medical Decision Making Based on the patient's presentation and physical exam, I'm concerned for possible falls with a recent history of increased falls, but cannot rule out other etiologies such as infectious, dehydration. Patient will be given a 1 L fluid bolus. We will obtain CTs of the head, neck, as well as plain film x-rays of the chest, left hip, left knee, foot. Patient was in agreement this plan. Family was in agreement this plan. Vital signs are within acceptable limits. Patient is a chronic anisocoria is not an acute finding. There was a long delay in obtaining imaging as well as laboratory studies due to high emergency department volumes. EKG showed no signs of acute ischemia, chronic changes. Patient's laboratory studies were remarkable for mild leukocytosis of 14. Troponin is elevated to 0.239. BNP is elevated to 1450. There is a delay in obtaining electrodes and for the labs. Flu, RSV, Covid are negative. CT brain is interpreted by myself reveals evidence of a right-sided subdural hematomas with no evidence of midline shift or mass effect. This read was also conveyed to me by radiology. No other acute findings. Chest x-ray as interpreted by myself reveals no evidence of acute cardio pulmonary process. Pelvic x-ray as interpreted by myself reveals no evidence of acute fracture, injury. Knee x-ray as interpreted by myself reveals no evidence of injury. Foot x-rays interpreted by myself reveals no evidence of injury or osteomyelitis. Radiology does read old fractures. I discussed with the patient as well as the patient's family. He will be transferred due to the intracranial bleeding, suspected traumatic. He'll be transferred to [facility]. I discussed with trauma surgery on-call [facility] as I do suspect this is a traumatic injury. He has been having increased falls. I spoke with Dr. Mart who accepted the patient. Patient will be transferred to [facility] in serious condition.I did contact the patient's daughter at [phone].Head of bed will be maintained at 30 or higher. No change in clinical status at this time. I did discuss with the trauma surgeon and we do not believe the platelets are needed at this time. - Lab Data Result diagrams: 11/15/22 14:12 11/15/22 16:34 Lab Results 11/15/22 11/15/22 11/15/22 Range/Units 14:12 14:12 14:12 WBC 14.8 H (3.8-10.6) k/uL RBC 5.47 (4.30-5.90) m/uL Hgb 15.1 (13.0-17.5) gm/dL Hct 44.6 (39.0-53.0) % MCV 81.5 (80.0-100.0) fL MCH 27.5 (25.0-35.0) pg MCHC 33.8 (31.0-37.0) g/dL RDW 15.2 (11.5-15.5) % Plt Count 169 (150-450) k/uL MPV 7.9 Neutrophils % 85 % Lymphocytes % 7 % Monocytes % 5 % Eosinophils % 1 % Basophils % 0 % Neutrophils # 12.5 H (1.3-7.7) k/uL Lymphocytes # 1.1 (1.0-4.8) k/uL Monocytes # 0.8 (0-1.0) k/uL Eosinophils # 0.2 (0-0.7) k/uL Basophils # 0.0 (0-0.2) k/uL PT 10.7 (9.0-12.0) sec INR 1.0 (<1.2) APTT 22.4 (22.0-30.0) sec Sodium (137-145) mmol/L Potassium (3.5-5.1) mmol/L Chloride (98-107) mmol/L Carbon Dioxide (22-30) mmol/L Anion Gap mmol/L BUN (9-20) mg/dL Creatinine (0.66-1.25) mg/dL Est GFR (CKD-EPI)AfAm (>60 ml/min/1.73 sqM) Est GFR (CKD-EPI)NonAf (>60 ml/min/1.73 sqM) Glucose (74-99) mg/dL Calcium (8.4-10.2) mg/dL Total Bilirubin (0.2-1.3) mg/dL AST (17-59) U/L ALT (4-49) U/L Alkaline Phosphatase (38-126) U/L Ammonia (<30) umol/L Troponin I (0.000-0.034) ng/mL NT-Pro-B Natriuret Pep pg/mL Total Protein (6.3-8.2) g/dL Albumin (3.5-5.0) g/dL Urine Color Yellow Urine Appearance Clear (Clear) Urine pH 5.5 (5.0-8.0) Ur Specific [place] 1.021 (1.001-1.035) Urine Protein 2+ H (Negative) Urine Glucose (UA) 3+ H (Negative) Urine Ketones Trace H (Negative) Urine Blood Large H (Negative) Urine Nitrite Negative (Negative) Urine Bilirubin Negative (Negative) Urine Urobilinogen <2.0 (<2.0) mg/dL Ur Leukocyte Esterase Negative (Negative) Urine RBC 1 (0-5) /hpf Urine WBC 1 (0-5) /hpf Ur Squamous Epith Cells <1 (0-4) /hpf Hyaline Casts 4 H (0-2) /lpf Urine Mucus Rare H (None) /hpf Urine Opiates Screen Not Detected (NotDetected) Ur Oxycodone Screen Not Detected (NotDetected) Urine Methadone Screen Not Detected (NotDetected) Ur Propoxyphene Screen Not Detected (NotDetected) Ur Barbiturates Screen Not Detected (NotDetected) U Tricyclic Antidepress Detected H (NotDetected) Ur Phencyclidine Scrn Not Detected (NotDetected) Ur Amphetamines Screen Not Detected (NotDetected) U Methamphetamines Scrn Not Detected (NotDetected) U Benzodiazepines Scrn Not Detected (NotDetected) Urine Cocaine Screen Not Detected (NotDetected) U Marijuana (THC) Screen Not Detected (NotDetected) Serum Alcohol mg/dL Influenza Type A (PCR) (Not Detectd) Influenza Type B (PCR) (Not Detectd) RSV (PCR) (Not Detectd) SARS-CoV-2 (PCR) (Not Detectd) 11/15/22 11/15/22 11/15/22 Range/Units 14:12 14:12 14:12 WBC (3.8-10.6) k/uL RBC (4.30-5.90) m/uL Hgb (13.0-17.5) gm/dL Hct (39.0-53.0) % MCV (80.0-100.0) fL MCH (25.0-35.0) pg MCHC (31.0-37.0) g/dL RDW (11.5-15.5) % Plt Count (150-450) k/uL MPV Neutrophils % % Lymphocytes % % Monocytes % % Eosinophils % % Basophils % % Neutrophils # (1.3-7.7) k/uL Lymphocytes # (1.0-4.8) k/uL Monocytes # (0-1.0) k/uL Eosinophils # (0-0.7) k/uL Basophils # (0-0.2) k/uL PT (9.0-12.0) sec INR (<1.2) APTT (22.0-30.0) sec Sodium (137-145) mmol/L Potassium (3.5-5.1) mmol/L Chloride (98-107) mmol/L Carbon Dioxide (22-30) mmol/L Anion Gap mmol/L BUN (9-20) mg/dL Creatinine (0.66-1.25) mg/dL Est GFR (CKD-EPI)AfAm (>60 ml/min/1.73 sqM) Est GFR (CKD-EPI)NonAf (>60 ml/min/1.73 sqM) Glucose (74-99) mg/dL Calcium (8.4-10.2) mg/dL Total Bilirubin (0.2-1.3) mg/dL AST (17-59) U/L ALT (4-49) U/L Alkaline Phosphatase (38-126) U/L Ammonia <9 (<30) umol/L Troponin I 0.239 H* (0.000-0.034) ng/mL NT-Pro-B Natriuret Pep pg/mL Total Protein (6.3-8.2) g/dL Albumin (3.5-5.0) g/dL Urine Color Urine Appearance (Clear) Urine pH (5.0-8.0) Ur Specific [place] (1.001-1.035) Urine Protein (Negative) Urine Glucose (UA) (Negative) Urine Ketones (Negative) Urine Blood (Negative) Urine Nitrite (Negative) Urine Bilirubin (Negative) Urine Urobilinogen (<2.0) mg/dL Ur Leukocyte Esterase (Negative) Urine RBC (0-5) /hpf Urine WBC (0-5) /hpf Ur Squamous Epith Cells (0-4) /hpf Hyaline Casts (0-2) /lpf Urine Mucus (None) /hpf Urine Opiates Screen (NotDetected) Ur Oxycodone Screen (NotDetected) Urine Methadone Screen (NotDetected) Ur Propoxyphene Screen (NotDetected) Ur Barbiturates Screen (NotDetected) U Tricyclic Antidepress (NotDetected) Ur Phencyclidine Scrn (NotDetected) Ur Amphetamines Screen (NotDetected) U Methamphetamines Scrn (NotDetected) U Benzodiazepines Scrn (NotDetected) Urine Cocaine Screen (NotDetected) U Marijuana (THC) Screen (NotDetected) Serum Alcohol mg/dL Influenza Type A (PCR) Not Detected (Not Detectd) Influenza Type B (PCR) Not Detected (Not Detectd) RSV (PCR) Not Detected (Not Detectd) SARS-CoV-2 (PCR) Not Detected (Not Detectd) 11/15/22 11/15/22 Range/Units 14:12 16:34 WBC (3.8-10.6) k/uL RBC (4.30-5.90) m/uL Hgb (13.0-17.5) gm/dL Hct (39.0-53.0) % MCV (80.0-100.0) fL MCH (25.0-35.0) pg MCHC (31.0-37.0) g/dL RDW (11.5-15.5) % Plt Count (150-450) k/uL MPV Neutrophils % % Lymphocytes % % Monocytes % % Eosinophils % % Basophils % % Neutrophils # (1.3-7.7) k/uL Lymphocytes # (1.0-4.8) k/uL Monocytes # (0-1.0) k/uL Eosinophils # (0-0.7) k/uL Basophils # (0-0.2) k/uL PT (9.0-12.0) sec INR (<1.2) APTT (22.0-30.0) sec Sodium 137 (137-145) mmol/L Potassium 5.4 H (3.5-5.1) mmol/L Chloride 107 (98-107) mmol/L Carbon Dioxide 21 L (22-30) mmol/L Anion Gap 9 mmol/L BUN 43 H (9-20) mg/dL Creatinine 1.33 H (0.66-1.25) mg/dL Est GFR (CKD-EPI)AfAm 60 (>60 ml/min/1.73 sqM) Est GFR (CKD-EPI)NonAf 52 (>60 ml/min/1.73 sqM) Glucose 311 H (74-99) mg/dL Calcium 8.4 (8.4-10.2) mg/dL Total Bilirubin 1.3 (0.2-1.3) mg/dL AST 162 H (17-59) U/L ALT 38 (4-49) U/L Alkaline Phosphatase 136 H (38-126) U/L Ammonia (<30) umol/L Troponin I (0.000-0.034) ng/mL NT-Pro-B Natriuret Pep 1450 pg/mL Total Protein 6.8 (6.3-8.2) g/dL Albumin 3.7 (3.5-5.0) g/dL Urine Color Urine Appearance (Clear) Urine pH (5.0-8.0) Ur Specific [place] (1.001-1.035) Urine Protein (Negative) Urine Glucose (UA) (Negative) Urine Ketones (Negative) Urine Blood (Negative) Urine Nitrite (Negative) Urine Bilirubin (Negative) Urine Urobilinogen (<2.0) mg/dL Ur Leukocyte Esterase (Negative) Urine RBC (0-5) /hpf Urine WBC (0-5) /hpf Ur Squamous Epith Cells (0-4) /hpf Hyaline Casts (0-2) /lpf Urine Mucus (None) /hpf Urine Opiates Screen (NotDetected) Ur Oxycodone Screen (NotDetected) Urine Methadone Screen (NotDetected) Ur Propoxyphene Screen (NotDetected) Ur Barbiturates Screen (NotDetected) U Tricyclic Antidepress (NotDetected) Ur Phencyclidine Scrn (NotDetected) Ur Amphetamines Screen (NotDetected) U Methamphetamines Scrn (NotDetected) U Benzodiazepines Scrn (NotDetected) Urine Cocaine Screen (NotDetected) U Marijuana (THC) Screen (NotDetected) Serum Alcohol <10 mg/dL Influenza Type A (PCR) (Not Detectd) Influenza Type B (PCR) (Not Detectd) RSV (PCR) (Not Detectd) SARS-CoV-2 (PCR) (Not Detectd) - EKG Data -: EKG Interpreted by Me EKG Comments: 12-lead Electrocardiogram Interpretation Note EKG was reviewed and interpreted by myself. 12-lead ECG performed at 1426 is interpreted by me as revealing normal sinus rhythm at a rate of 103 beats per minute. [place] is normal. [place] interval is 183 ms, QRS durations 118 ms, QTc is 421 ms.. There were no acute ST or T wave abnormalities to suggest myocardial ischemia or injury. Chronic J point elevations in the anterior precordial leads. Unchanged from prior EKGs. R wave progression across the precordium was satisfactory. By my interpretation this EKG is non-diagnostic for acute ischemia. Compared with EKG from March 2022, no significant changes. Critical Care Time Critical Care Time: Yes Total Critical Care Time: 35 Critical Care Time: Upon my evaluation, this patient had a high probability of imminent or life- threatening deterioration due to altered mental status, subdural hemorrhages, which required my direct attention, intervention, and personal management. I have personally provided 35 minutes of critical care time exclusive of time spent on separately billable procedures. Time includes review of laboratory data, radiology results, discussion with consultants, and monitoring for potent ial decompensation. Interventions were performed as documented in my note. Disposition Clinical Impression: Subdural hematoma, Elevated troponin, Weakness Disposition: OTHER INSTITUTION NOT DEFINED Condition: Serious Is patient prescribed a controlled substance at d/c from ED?: No Referrals: Valente Sharma MD [Primary Care Provider] - 1-2 days Time of Disposition: 16:45 - Out of Hospital Transfer - Req. Specs Out of Hospital Transfer - Requested Specifics: Other Emergency Center (Transferred due to SDH, requires neurosurgery consult.)
[2022-11-15 15:31] LABS: Basophils % (A) 0 %; Eosinophils # (A) 0.2 k/uL (0-0.7); Eosinophils % (A) 1 %; HCT 44.6 % (39.0-53.0); HGB 15.1 gm/dL (13.0-17.5); Lymphocytes # (A) 1.1 k/uL (1.0-4.8); Lymphocytes % (A) 7 %; MCH 27.5 pg (25.0-35.0); MCHC 33.8 g/dL (31.0-37.0); MCV 81.5 fL (80.0-100.0); Mean Platelet Volume 7.9; Monocytes # (A) 0.8 k/uL (0-1.0); Monocytes % (A) 5 %; Neutrophils # (A) 12.5 k/uL (1.3-7.7); Neutrophils % (A) 85 %; Platelet Count 169 k/uL (150-450); RBC 5.47 m/uL (4.30-5.90); RDW 15.2 % (11.5-15.5); WBC 14.8 k/uL (3.8-10.6)
[2022-11-15 15:54] LABS: Partial Thromboplastin Time 22.4 sec (22.0-30.0); Prothrombin Time 10.7 sec (9.0-12.0)
--- NOTE | 2022-11-15 16:18 | XR ---
EXAMINATION TYPE: XR foot limited LT DATE OF EXAM: 11/15/2022 4:11 PM INDICATION: Patient age:Male; 77 years old; Reason for study: pain, eval for osteomyelitis; COMPARISON: 10/12/2011 TECHNIQUE: The left foot was examined in the AP, oblique, and lateral projections. FINDINGS: No evidence of any acute osseous pathology. Mild soft tissue swelling of the forefoot. There are remote healed fractures of the second through fifth metatarsals. No acute fractures visuali zed. Calcaneal plantar spurring and Achilles enthesophytes are present. No definite evidence for osse ous erosion. Atherosclerosis of the arterial vasculature. IMPRESSION: 1. No evidence of acute fracture. 2. Remote fractures of the second through fifth metatarsals. 3. No definitive evidence for osteolytic myelitis.
--- NOTE | 2022-11-15 16:20 | XR ---
EXAMINATION TYPE: XR knee complete LT DATE OF EXAM: 11/15/2022 4:11 PM INDICATION: Patient age:Male; 77 years old; Reason for study: pain, possible fall; COMPARISON: None. TECHNIQUE: The Left knee(s) was examined in Frontal, lateral and oblique projections. FINDINGS: No evidence of any acute osseous pathology, joint space narrowing, soft tissue swelling, or joint effusion is noted. Minimal degeneration changes most pronounced in patellofemoral joint. Enthesophyte the quadriceps tendon. Atherosclerosis of the arterial vasculature. IMPRESSION: 1. No acute osseous pathology. 2. Mild osteoporosis most pronounced in the femoral patellar joint.
--- NOTE | 2022-11-15 16:21 | XR ---
EXAMINATION TYPE: XR Hip LT and AP Pelvis DATE OF EXAM: 11/15/2022 4:11 PM INDICATION: Patient age:Male; 77 years old; Reason for study: pain, possible fall; COMPARISON: None. TECHNIQUE: The left hip was examined in the frontal and lateral projections and a AP pelvis. FINDINGS: No evidence for acute process, joint dislocation or significant soft tissue swelling. Mild osteophyte formation of the acetabulum bilaterally. Atherosclerosis of the arterial vasculature. Mult ilevel disc degeneration changes of the spine. IMPRESSION: No acute process.
--- NOTE | 2022-11-15 16:22 | XR ---
EXAMINATION TYPE: XR chest 1V DATE OF EXAM: 11/15/2022 4:11 PM COMPARISON: Chest radiographs from 04/05/2022 TECHNIQUE: XR chest 1V Portable AP radiograph of the chest. CLINICAL INDICATION:Male, 77 years old with history of altered mental status; FINDINGS: Lungs/Pleura: There is no evidence of pleural effusion, focal consolidation, or pneumothorax. Pulmonary vascularity: Unremarkable. Heart/mediastinum: Cardiomediastinal silhouette is enlarged and stable. Musculoskeletal: No acute osseous pathology. Midline sternotomy wires are noted. IMPRESSION: No acute cardiopulmonary disease/process.
--- NOTE | 2022-11-15 16:34 | CT ---
EXAMINATION TYPE: CT brain cspine wo con CT DLP: 1903.2 mGycm, Automated exposure control for dose reduction was used. DATE OF EXAM: 11/15/2022 4:22 PM COMPARISON: 03/16/2022 CLINICAL INDICATION:Male, 77 years old with history of AMS, neck pain; Altered mental status. TECHNIQUE: Brain: Multiple axial CT images of the brain were obtained without IV contrast. Cspine: Axial CT images from the skull base to the inferior aspect of T2 we obtained without intraven ous contrast. Coronal and sagittal reformatted images were also reviewed. FINDINGS: Brain: Extra-axial spaces: High density blood products layering along the right calvarium measuring up to 6 mm. No evidence of midline shift.. This extends from the anterior frontal lobe posteriorly with anoth er area posteriorly and superiorly. Ventricular system: Dilatation in proportion to cerebral atrophy. Cerebral parenchyma: Remote right centrum semiovale/eldridge radiata injuries. Cerebral atrophy. No acu te intraparenchymal hemorrhage or mass effect. The angel-white junction is well differentiated. Scatt ered hypoattenuating areas are seen within the white matter. Cerebellum: Unremarkable. Mass effect: No evidence of midline shift. Intracranial vasculature: Atherosclerotic calcifications of the intracranial vessels. Soft tissues: Normal. Calvarium/osseous structures: No depressed skull fracture. Paranasal sinuses and mastoid air cells: Mild scattered mucosal thickening and or secretions. Visualized orbits: Orbital contents are intact. Cervical spine: Fracture: None. Osseous structures: Multilevel degenerative disc disease changes with endplate spurring and disc oste ophyte complex's. Sternotomy wires are present. Vertebral alignment: Within normal limits. Spinal canal/Neural Foramina: No evidence of significant spinal canal narrowing. No evidence for sign ificant neural foraminal stenosis. Neck soft tissues: Prevertebral soft tissues are within normal limits. Other: The airway is patent. The lung apices are clear. Atherosclerosis of the carotid bifurcations a nd arterial vasculature. Findings communicated to Dr. Shamar Paulson MD on 11/15/2022 4:[address] Burt Jacobs. IMPRESSION: 1. Right subdural hematomas without evidence of midline shift. 2. No evidence of cervical spine fracture. 3. Mild multilevel degenerative disc disease. 4. Remote right centrum semiovale/eldridge radiata deep white matter injuries.
[2022-11-15 17:02] LABS: Appearance,Urine Clear (Clear); Bilirubin,Urine Negative (Negative); Blood,Urine Large (Negative); Color,Urine Yellow; Glucose,Urine (UA) 3+ (Negative); Hyaline Casts,Urine 4 /lpf (0-2); Ketones,Urine Trace (Negative); Leukocyte Esterase,Urine Negative (Negative); Mucus,Urine Rare /hpf; Nitrite,Urine Negative (Negative); PH, Urine 5.5 (5.0-8.0); Protein,Urine 2+ (Negative); RBC,Urine 1 /hpf (0-5); Specific Gravity,Urine 1.021 (1.001-1.035); Squamous Epithelial Cell,Urine <1 /hpf (0-4); Urobilinogen,Urine <2.0 mg/dL (<2.0); WBC,Urine 1 /hpf (0-5)
[2022-11-15 17:02] LABS: ALT 38 U/L (4-49); AST 162 U/L (17-59); African American GFR (CKD) 60 (>60 ml/min/1.73 sqM); Albumin 3.7 g/dL (3.5-5.0); Alcohol <10 mg/dL; Alkaline Phosphatase 136 U/L (38-126); Anion Gap 9 mmol/L; Blood Urea Nitrogen 43 mg/dL (9-20); Calcium 8.4 mg/dL (8.4-10.2); Carbon Dioxide 21 mmol/L (22-30); Chloride 107 mmol/L (98-107); Glucose 311 mg/dL (74-99); Non-African American GFR(CKD) 52 (>60 ml/min/1.73 sqM); Sodium 137 mmol/L (137-145); Total Bilirubin 1.3 mg/dL (0.2-1.3); Total Protein 6.8 g/dL (6.3-8.2)
[2022-11-15 17:03] LABS: Potassium 5.4 mmol/L (3.5-5.1)
[2022-11-15 17:21] LABS: Amphetamine Screen,Urine Not Detected (NotDetected); Barbiturate Screen,Urine Not Detected (NotDetected); Benzodiazepines Screen,Urine Not Detected (NotDetected); Cocaine Screen,Urine Not Detected (NotDetected); Methadone Screen, Urine Not Detected (NotDetected); Opiate Screen,Urine Not Detected (NotDetected); Oxycodone Screen, Urine Not Detected (NotDetected); Phencyclidine Screen,Urine Not Detected (NotDetected); Tricyclic Antidepressant,Urine Detected (NotDetected); Urn Cannabinoid Scrn Not Detected (NotDetected)
[2022-11-15] MEDS ORDERED: SODIUM CHLORIDE 0.9% 1,000 ML IV SCH (17:30)
[2022-11-15 18:19] VITALS: BP 157/56; PULSE 78
== END 2022-11-15 18:18 | disposition other institution (70) ==
LOC: EC 13:06
DX: S06.5X0A Traumatic subdural hemorrhage without loss of consciousness, initial encounter (principal); R53.1 Weakness; I11.0 Hypertensive heart disease with heart failure; R77.8 Other specified abnormalities of plasma proteins; I25.10 Atherosclerotic heart disease of native coronary artery without angina pectoris; E11.9 Type 2 diabetes mellitus without complications; K21.9 Gastro-esophageal reflux disease without esophagitis; M19.90 Unspecified osteoarthritis, unspecified site; E78.5 Hyperlipidemia, unspecified; F41.9 Anxiety disorder, unspecified; F32.A Depression, unspecified; Z79.82 Long term (current) use of aspirin; Z79.4 Long term (current) use of insulin; Z79.899 Other long term (current) drug therapy; Z20.822 Contact with and (suspected) exposure to COVID-19
CPT/HCPCS: 36415; 93005; 83880; 80053; 82140; 84484; 85025; 85610; 85730; 81001; 87040; 80306; 87636; 73502; 73562; 73620; 71045; 72125; 70450; 99285; 96360; 96361; G0480; 80320

== ENCOUNTER 2023-02-21 15:52 | Inpatient (IN) | payer MEDICARE, BC ==
[2023-02-21 17:01] LABS: Glucose,Whole Blood 112 mg/dL (70-110)
--- NOTE | 2023-02-21 17:19 | ED ---
General Adult HPI - General Chief complaint: Shortness of Breath Stated complaint: poss congestive heart failure Time Seen by Provider: 02/21/23 16:16 Source: patient, family, RN notes reviewed, old records reviewed Mode of arrival: wheelchair Limitations: altered mental status - History of Present Illness Initial comments: Patient is a 77-year-old male with past medical history remarkable for prior subdural hemorrhage in October 2022, CHF, prior bypass, hypertension, dementia, presents emergency Department with daughter over concern for worsening exertional dyspnea. Patient was over the last few weeks having increased exertional dyspnea. Increased lower extremity edema. Increased orthopnea. Denies PND. Endorses a nonproductive cough. Denies any chest pain. Denies any abdominal pain, nausea, vomiting. Denies any diarrhea. States he is concerning may be ill due to the increased coughing. Per family, he is compliant with medications. No blood thinners as far as they know. No known falls as far as they know, however last 70 did not do believe he fell recently and had subdural hemorrhages. Conjunctivae mental status he waxes and wanes regularly, but yesterday seemed to be a little bit more confused than normal. Back to his n ormal baseline today. No other acute complaints at this time. Went to go see his PCP, and when they did an ambulatory pulse ox dropped down to 83% which is why he brought him to the emergency department for further evaluation. Normally not on oxygen. - Related Data Home Medications Medication Instructions Recorded Confirmed Omeprazole [PriLOSEC] 20 mg PO DAILY 02/23/15 02/21/23 Aspirin EC [Ecotrin Low Dose] 81 mg PO DAILY 03/07/17 02/21/23 Metoprolol Succinate (ER) [Toprol 50 mg PO DAILY 03/07/17 02/21/23 XL] Tamsulosin HCl [Flomax] 0.4 mg PO DAILY 03/07/17 02/21/23 Furosemide [Lasix] 40 mg PO DAILY 11/08/19 02/21/23 Insulin Aspart [NovoLOG Flexpen] See Protocol SQ TID-W/MEALS 11/08/19 02/21/23 Clopidogrel [Plavix] 75 mg PO DAILY 01/21/20 02/21/23 Amitriptyline HCl [Elavil] 25 mg PO HS 03/16/22 02/21/23 Cholecalciferol [Vitamin D3 (25 50 mcg PO DAILY 03/16/22 02/21/23 Mcg = 1000 Iu)] Oxybutynin Chloride [Oxybutynin 10 mg PO DAILY 03/16/22 02/21/23 Chloride ER] Potassium Chloride ER [K-Dur 10] 10 meq PO DAILY 03/16/22 02/21/23 traMADol HCL 50 mg PO BID 03/16/22 02/21/23 Insulin Glargine,Hum.rec.anlog 56 unit SQ W/LUNCH 04/05/22 02/21/23 [Lantus Solostar Pen] Ondansetron Odt [Zofran Odt] 8 mg PO Q12HR PRN 02/21/23 02/21/23 amLODIPine [Norvasc] 5 mg PO DAILY 02/21/23 02/21/23 lisinopriL [Zestril] 2.5 mg PO DAILY 02/21/23 02/21/23 Previous Rx's Medication Instructions Recorded Donepezil [Aricept] 10 mg PO HS #30 03/13/15 Gabapentin [Neurontin] 300 mg PO BID #6 cap 01/23/20 Atorvastatin [Lipitor] 80 mg PO DAILY #30 tab 03/21/22 Allergies Allergy/AdvReac Type Severity Reaction Status Date / Time No Known Allergies Allergy Verified 02/21/23 19:16 Review of Systems ROS Statement: Those systems with pertinent positive or pertinent negative responses have been documented in the HPI. Review of Systems: CONST: Denies fever EYES: Denies blurry vision ENT: Denies nasal congestion C/V: Denies Chest pain RESP: Endorses shortness of breath GI: Denies abdominal pain : Denies dysuria SKIN: Denies rash. MSK: Denies joint pain. NEURO: Denies headache ROS Other: All systems not noted in ROS Statement are negative. Past Medical History Past Medical History: Coronary Artery Disease (CAD), Heart Failure, Dementia, Diabetes Mellitus, GERD/Reflux, Hyperlipidemia, Hypertension, Memory Impairment, Osteoarthritis (OA), Pneumonia, Prostate Disorder, Skin Disorder, Vascular Disorder Additional Past Medical History / Comment(s): Recent falls since diagnosed with covid and diarrhea/incontinence, IDDM type II, neuropathy in bilateral hands/feet, "beginnings" of dementia, systolic CHF, PAD, current wound L foot, BPH, chronic back pain, bronchitis, sinus issues. History of Any Multi-Drug Resistant Organisms: None Reported Past Surgical History: Coronary Bypass/CABG, Orthopedic Surgery Additional Past Surgical History / Comment(s): 2014 CABG 4 vessel/bioprosthetic aortic valve, angiograms, aortagram with bilateral run-offs, PTBA/atherectomy L leg, L foot surgery for crush injury, colonoscopy, bilateral cataract removals. Past Anesthesia/Blood Transfusion Reactions: No Reported Reaction Past Psychological History: Anxiety, Depression Smoking Status: Never smoker Past Alcohol Use History: Heavy Past Drug Use History: None Reported - Past Family History Father Family Medical History: Congestive Heart Failure (CHF) Mother Family Medical History: Congestive Heart Failure (CHF) General Exam - General Exam Comments Initial Comments: General: Appears in no acute distress. HEAD: Normal with no signs of head trauma. EYES: PERRLA, EOMI, conjunctiva normal, no discharge. Pupils are 3 mm and equ al bilaterally. ENT: Hearing grossly intact, normal oropharynx. RESPIRATORY: Crackles in bilateral lower lung romeo. Mild increased work of breathing. Mild hypoxia on room air at rest at 93-95%. C/V: Regular and rhythm. S1 and S2 auscultated. Peripheral pulses 2+ intact throughout. Patient has significant pitting edema that appears symmetrical in bilateral lower extremities. ABD: Abd is soft, nontender, nondistended EXT: Normal range of motion, no obvious deformity SKIN: No rashes or lesions observed on exposed skin. NEURO: Alert and oriented 2-3 which appears to be his baseline. No focal deficits. NIH appears to be 0. GCS of 15. Limitations: altered mental status Course Vital Signs 02/21/23 02/21/23 02/21/23 15:55 18:22 21:10 Temperature 98.8 F Pulse Rate 99 89 98 Respiratory 22 19 18 Rate Blood Pressure 158/86 156/69 126/69 O2 Sat by Pulse 94 L 92 L 93 L Oximetry 02/21/23 22:21 Temperature Pulse Rate 92 Respiratory 17 Rate Blood Pressure 152/91 O2 Sat by Pulse 94 L Oximetry Medical Decision Making - Medical Decision Making Was pt. sent in by a medical professional or institution (, PA, [employer] MACHINE OPERATOR, urgent care, hospital, or intermediate...) When possible be specific @ -Sent by PCP over concern for hypoxia, CHF. Did you speak to anyone other than the patient for history (EMS, parent, family, police, friend...)? What history was obtained from this source @ -No Did you review nursing and triage notes (agree or disagree)? Why? @ -I reviewed and agree with nursing and triage notes Were old charts reviewed (outside hosp., previous admission, EMS record, old EKG , old radiological studies, urgent care reports/EKG's, intermediate records)? Report findings @ -Charts from October 2022 were reviewed. Differential Diagnosis (chest pain, altered mental status, abdominal pain women, abdominal pain men, vaginal bleeding, weakness, fever, dyspnea, syncope, headache, dizziness, GI bleed, back pain, seizure, CVA, palpatations, mental health, musculoskeletal)? @ -Differential Dyspnea: Coronary syndrome, arrhythmia, tamponade, asthma, COPD, pulmonary embolism, pneumonia, pneumothorax, pulmonary effusion, anaphylaxis, diabetic ketoacidosis, flailed chest, pulmonary contusion, diaphragmatic rupture, anemia, neuromuscular, this is not meant to be an all-inclusive list. EKG interpreted by me (3pts min.). @ -As above X-rays interpreted by me (1pt min.). @ -Chest x-ray shows findings concerning for bilateral pulmonary vascular congestion. CT interpreted by me (1pt min.). @ -CT brain reveals no evidence of the acute obvious intracranial process. No new bleed. U/S interpreted by me (1pt. min.). @ -None done What testing was considered but not performed or refused? (CT, X-rays, U/S, labs)? Why? @ -None What meds were considered but not given or refused? Why? @ -None Did you discuss the management of the patient with other professionals (professionals i.e. , PA, [employer] MACHINE OPERATOR, lab, RT, psych nurse, social science analyst, mold maker helper, teacher, dental officer, case assistant)? Give summary @ -No Was smoking cessation discussed for >3mins.? @ -No Was critical care preformed (if so, how long)? @ -No Were there social determinants of health that impacted care today? How? (Homelessness, low income, unemployed, alcoholism, drug addiction, transportation, low edu. Level, literacy, decrease access to med. care, nursing home, rehab)? @ -No Was there de-escalation of care discussed even if they declined (Discuss DNR or withdrawal of care, Hospice)? DNR status @ -No What co-morbidities impacted this encounter? (DM, HTN, Smoking, COPD, CAD, Cancer, CVA, ARF, Chemo, Hep., AIDS, mental health diagnosis, sleep apnea, morbid obesity)? @ -CHF, CABG, hypertension, dementia Was patient admitted / discharged? Hospital course, mention meds given and route, prescriptions, significant lab abnormalities, going to OR and other pertinent info. @ -Based on the patient's presentation and physical exam, I'm concerned for was likely to be a CHF exacerbation but cannot rule out other cardiac or pulmonary process at this time. Patient has worsening orthopnea, lower extremity edema, exertional dyspnea. EKGs showed very subtle ST segment depressions in leads I, II, as well as slightly in aVL. Therefore we did have the patient moved from the triage waiting room to resuscitation bay for him to be evaluated. Vital signs are taken except for the limits. Discussed with the patient as well as his daughter who is at bedside the plan for workup in the brain agreement with this plan. We'll also obtain a CT brain condition cardiopulmonary workup as the patient is of the episodic confusion yesterday, history of falls that may or may not be witnessed, as well as the history of sub dural hemorrhages. There was initial concern for acute ST segment depressions seen on EKG but upon comparison of multiple prior EKGs, these are seen previously. No acute changes. No dynamic changes between the 2 EKGs revealed obtained here in the emergency department today. Chest x-ray concerning for CHF. Patient's labs are remarkable for an elevated troponin of 0.166 which is likely secondary to CHF exacerbation and exertional hypoxia as his BNP is 6000. Remainder the labs are within acceptable limits. Covid flu negative. I updated the patient's family. Patient will be started on twice a day IV Lasix. Echo was ordered. He requires admission to hospital. Especially since he has hypoxia on exertion in the 80%'s. They were in agreement with this plan. Cardiology was consulted. I spoke with the admitting team, sound physician group Dr. Carrillo who accepted the patient. Undiagnosed new problem with uncertain prognosis? @ -No Drug Therapy requiring intensive monitoring for toxicity (Heparin, Nitro, Insulin, Cardizem)? @ -No Were any procedures done? @ -No Diagnosis/symptom? @ -CHF, hypoxia on exertion Acute, or Chronic, or Acute on Chronic? @ -Acute on chronic Uncomplicated (without systemic symptoms) or Complicated (systemic symptoms)? @ -Complicated Side effects of treatment? @ -none Exacerbation, Progression, or Severe Exacerbation] @ -Exacerbation Poses a threat to life or bodily function? @ -Yes, if untreated. Diagnosis/symptom? @ -Elevated troponin, likely secondary to CHF exacerbation Acute, or Chronic, or Acute on Chronic? @ -Acute Uncomplicated (without systemic symptoms) or Complicated (systemic symptoms)? @ -Uncomplicated Side effects of treatment? @ -none Exacerbation, Progression, or Severe Exacerbation] @ -no Poses a threat to life or bodily function? @ -no - Lab Data Result diagrams: 02/21/23 16:33 02/21/23 16:33 Lab Results 02/21/23 02/21/23 02/21/23 Range/Units 16:31 16:33 16:33 WBC 8.0 (3.8-10.6) k/uL RBC 4.57 (4.30-5.90) m/uL Hgb 13.3 (13.0-17.5) gm/dL Hct 38.1 L (39.0-53.0) % MCV 83.4 (80.0-100.0) fL MCH 29.1 (25.0-35.0) pg MCHC 34.9 (31.0-37.0) g/dL RDW 14.5 (11.5-15.5) % Plt Count 150 (150-450) k/uL MPV 7.3 Neutrophils % 84 % Lymphocytes % 7 % Monocytes % 6 % Eosinophils % 1 % Basophils % 0 % Neutrophils # 6.7 (1.3-7.7) k/uL Lymphocytes # 0.6 L (1.0-4.8) k/uL Monocytes # 0.4 (0-1.0) k/uL Eosinophils # 0.1 (0-0.7) k/uL Basophils # 0.0 (0-0.2) k/uL PT 11.2 (9.0-12.0) sec INR 1.1 (<1.2) APTT 25.6 (22.0-30.0) sec Sodium (137-145) mmol/L Potassium (3.5-5.1) mmol/L Chloride (98-107) mmol/L Carbon Dioxide (22-30) mmol/L Anion Gap mmol/L BUN (9-20) mg/dL Creatinine (0.66-1.25) mg/dL Est GFR (CKD-EPI)AfAm (>60 ml/min/1.73 sqM) Est GFR (CKD-EPI)NonAf (>60 ml/min/1.73 sqM) Glucose (74-99) mg/dL POC Glucose (mg/dL) 112 H (70-110) mg/dL POC Glu [employer] Accountant ID Gabriela De León Calcium (8.4-10.2) mg/dL Total Bilirubin (0.2-1.3) mg/dL AST (17-59) U/L ALT (4-49) U/L Alkaline Phosphatase (38-126) U/L Troponin I (0.000-0.034) ng/mL NT-Pro-B Natriuret Pep pg/mL Total Protein (6.3-8.2) g/dL Albumin (3.5-5.0) g/dL Influenza Type A (PCR) (Not Detectd) Influenza Type B (PCR) (Not Detectd) RSV (PCR) (Not Detectd) SARS-CoV-2 (PCR) (Not Detectd) 02/21/23 02/21/23 02/21/23 Range/Units 16:33 16:33 16:33 WBC (3.8-10.6) k/uL RBC (4.30-5.90) m/uL Hgb (13.0-17.5) gm/dL Hct (39.0-53.0) % MCV (80.0-100.0) fL MCH (25.0-35.0) pg MCHC (31.0-37.0) g/dL RDW (11.5-15.5) % Plt Count (150-450) k/uL MPV Neutrophils % % Lymphocytes % % Monocytes % % Eosinophils % % Basophils % % Neutrophils # (1.3-7.7) k/uL Lymphocytes # (1.0-4.8) k/uL Monocytes # (0-1.0) k/uL Eosinophils # (0-0.7) k/uL Basophils # (0-0.2) k/uL PT (9.0-12.0) sec INR (<1.2) APTT (22.0-30.0) sec Sodium 136 L (137-145) mmol/L Potassium 4.2 (3.5-5.1) mmol/L Chloride 105 (98-107) mmol/L Carbon Dioxide 21 L (22-30) mmol/L Anion Gap 10 mmol/L BUN 21 H (9-20) mg/dL Creatinine 1.14 (0.66-1.25) mg/dL Est GFR (CKD-EPI)AfAm 73 (>60 ml/min/1.73 sqM) Est GFR (CKD-EPI)NonAf 63 (>60 ml/min/1.73 sqM) Glucose 101 H (74-99) mg/dL POC Glucose (mg/dL) (70-110) mg/dL POC Glu Railroad Accountant ID Calcium 8.1 L (8.4-10.2) mg/dL Total Bilirubin 2.1 H (0.2-1.3) mg/dL AST 27 (17-59) U/L ALT 16 (4-49) U/L Alkaline Phosphatase 98 (38-126) U/L Troponin I 0.166 H* (0.000-0.034) ng/mL NT-Pro-B Natriuret Pep 6070 pg/mL Total Protein 6.5 (6.3-8.2) g/dL Albumin 3.3 L (3.5-5.0) g/dL Influenza Type A (PCR) (Not Detectd) Influenza Type B (PCR) (Not Detectd) RSV (PCR) (Not Detectd) SARS-CoV-2 (PCR) (Not Detectd) 02/21/23 Range/Units 16:33 WBC (3.8-10.6) k/uL RBC (4.30-5.90) m/uL Hgb (13.0-17.5) gm/dL Hct (39.0-53.0) % MCV (80.0-100.0) fL MCH (25.0-35.0) pg MCHC (31.0-37.0) g/dL RDW (11.5-15.5) % Plt Count (150-450) k/uL MPV Neutrophils % % Lymphocytes % % Monocytes % % Eosinophils % % Basophils % % Neutrophils # (1.3-7.7) k/uL Lymphocytes # (1.0-4.8) k/uL Monocytes # (0-1.0) k/uL Eosinophils # (0-0.7) k/uL Basophils # (0-0.2) k/uL PT (9.0-12.0) sec INR (<1.2) APTT (22.0-30.0) sec Sodium (137-145) mmol/L Potassium (3.5-5.1) mmol/L Chloride (98-107) mmol/L Carbon Dioxide (22-30) mmol/L Anion Gap mmol/L BUN (9-20) mg/dL Creatinine (0.66-1.25) mg/dL Est GFR (CKD-EPI)AfAm (>60 ml/min/1.73 sqM) Est GFR (CKD-EPI)NonAf (>60 ml/min/1.73 sqM) Glucose (74-99) mg/dL POC Glucose (mg/dL) (70-110) mg/dL POC Glu Railroad Accountant ID Calcium (8.4-10.2) mg/dL Total Bilirubin (0.2-1.3) mg/dL AST (17-59) U/L ALT (4-49) U/L Alkaline Phosphatase (38-126) U/L Troponin I (0.000-0.034) ng/mL NT-Pro-B Natriuret Pep pg/mL Total Protein (6.3-8.2) g/dL Albumin (3.5-5.0) g/dL Influenza Type A (PCR) Not Detected (Not Detectd) Influenza Type B (PCR) Not Detected (Not Detectd) RSV (PCR) Not Detected (Not Detectd) SARS-CoV-2 (PCR) Not Detected (Not Detectd) - EKG Data -: EKG Interpreted by Me EKG Comments: 12-lead Electrocardiogram Interpretation Note EKG was reviewed and interpreted by myself. 12-lead ECG performed at 1608 is interpreted by me as revealing normal sinus rhythm at a rate of 92 beats per minute. [place] is normal. [place] interval is 265 ms, QRS duration is 112 ms, QTc is 397 ms. There were no acute ST or T wave abnormalities to suggest myocardial ischemia or injury. R wave progression across the precordium was delayed. By my interpretation this EKG is non-diagnostic for acute ischemia. When compared with EKG from October 2022, no significant change.There are continued mild ST segment depressions in leads I, II, aVL as well as some ST segment elevations in V2, V3. 12-lead Electrocardiogram Interpretation Note EKG was reviewed and interpreted by myself. 12-lead ECG performed at 1647 is interpreted by me as revealing normal sinus rhythm at a rate of 97 beats per minute. [place] is normal. [place] interval is 263 ms, QRS duration is 113 ms, QTc is 389 ms. Patient still has a first-degree AV block.. There were no acute ST or T wave abnormalities to suggest myocardial ischemia or injury. R wave progression across the precordium was delayed. By my interpretation this EKG is non-diagnostic for acute ischemia. When compared with EKG from October 2022, no significant change. There are continued mild ST segment depressions in leads I, II, aVL as well as some ST segment elevations in V2, V3. Disposition Clinical Impression: CHF (congestive heart failure) Disposition: ADMITTED IP TO THIS HOSP Condition: Serious Time of Disposition: 18:10
--- NOTE | 2023-02-21 17:41 | CT ---
EXAMINATION TYPE: CT brain wo con CT DLP: 1245.4 mGycm, Automated exposure control for dose reduction was used. DATE OF EXAM: 02/21/2023 5:29 PM COMPARISON: 11/15/2022 , MRI brain 10/11/2011 CLINICAL INDICATION:Male, 77 years old with history of confusion, possible fall, history of bleed, Co nfusion, possible fall, hx bleed TECHNIQUE: Brain: Axial CT images of the brain were obtained with coronal and sagittal reformats created and rev iewed. Contrast used: None. Oral contrast used: None. FINDINGS: Brain: Extra-axial spaces: No abnormal extra-axial fluid collections. Ventricular system: Within normal limits Cerebral parenchyma: No acute intraparenchymal hemorrhage or mass effect. The angel-white junction is well differentiated. Remote brnua injury as seen on prior MRI. Cerebellum: Unremarkable. Mass effect: No evidence of midline shift. Intracranial vasculature: unremarkable Soft tissues: Normal. Calvarium/osseous structures: No depressed skull fracture. Paranasal sinuses and mastoid air cells: Mild scattered paranasal sinus disease. Visualized orbits: Aphakic left aphakia. IMPRESSION: 1. No acute intracranial process. 2. Remote injury to the bruna as seen on prior MRI.
[2023-02-21 17:45] LABS: Basophils % (A) 0 %; Eosinophils # (A) 0.1 k/uL (0-0.7); Eosinophils % (A) 1 %; HCT 38.1 % (39.0-53.0); HGB 13.3 gm/dL (13.0-17.5); Lymphocytes # (A) 0.6 k/uL (1.0-4.8); Lymphocytes % (A) 7 %; MCH 29.1 pg (25.0-35.0); MCHC 34.9 g/dL (31.0-37.0); MCV 83.4 fL (80.0-100.0); Mean Platelet Volume 7.3; Monocytes # (A) 0.4 k/uL (0-1.0); Monocytes % (A) 6 %; Neutrophils # (A) 6.7 k/uL (1.3-7.7); Neutrophils % (A) 84 %; Platelet Count 150 k/uL (150-450); RBC 4.57 m/uL (4.30-5.90); RDW 14.5 % (11.5-15.5)
[2023-02-21 17:53] LABS: INR 1.1 (<1.2); Partial Thromboplastin Time 25.6 sec (22.0-30.0); Prothrombin Time 11.2 sec (9.0-12.0)
[2023-02-21] MEDS ORDERED: ASPIRIN 81 MG PO STA (18:08)
[2023-02-21] MEDS ORDERED: FUROSEMIDE 10 MG/ML 4 ML VIAL IV STA (18:08)
[2023-02-21 18:09] LABS: Albumin 3.3 g/dL (3.5-5.0); Calcium 8.1 mg/dL (8.4-10.2); Potassium 4.2 mmol/L (3.5-5.1); Total Bilirubin 2.1 mg/dL (0.2-1.3); Total Protein 6.5 g/dL (6.3-8.2)
[2023-02-21] MEDS ORDERED: NALOXONE 0.4 MG/ML 1 ML VIAL IV PRN (18:23)
--- NOTE | 2023-02-21 18:27 | XR ---
EXAMINATION TYPE: XR chest 2V DATE OF EXAM: 02/21/2023 5:53 PM COMPARISON: Chest radiographs from 11/15/2022 TECHNIQUE: XR chest 2V Frontal and lateral views of the chest. CLINICAL INDICATION:Male, 77 years old with history of dyspnea; FINDINGS: Lungs/Pleura: There is no evidence of pleural effusion, focal consolidation, or pneumothorax. Pulmonary vascularity: Pulmonary vascular congestion. Heart/mediastinum: Cardiomediastinal silhouette is enlarged and stable. Musculoskeletal: Degenerative changes of the shoulder joints. Midline sternotomy wires are noted. IMPRESSION: Low lung volumes Cardiomegaly and mild pulmonary vascular congestion. Correlate with BNP for congesti ve heart failure.
[2023-02-21 23:36] LABS: Glucose,Whole Blood 106 mg/dL (70-110)
[2023-02-21] MEDS: FUROSEMIDE 10 MG/ML 4 ML VIAL IV SCH (23:50)
[2023-02-21] MEDS: HEPARIN SODIUM,PORCINE/PF 5,000 UNIT/0.5 ML SYRINGE SQ SCH (23:50)
--- NOTE | 2023-02-22 00:29 | P.HPIM ---
History of Present Illness H&P Date: 02/21/23 Chief Complaint: shortness of breath 77 year old male with hypertension , dementia, history of CABG daughter was not available at time of my evaluation patient reports progressive SOB , exertional in nature over the past few weeks, his daughter lives with him and helps taking care of him, she insisted that he comes in for evaluation due to worsening shortness of breath and having low oxygen saturation at the doctor office with ambulation , now he is SOB with slightest activity around the house. He also admits to Orthopnea and PNDs. he denies any fever, chills, denies any chest pain. he denies any falls. patient had a recent event of subdural hemorrhage around Oct 2022. patient denies any recent changes with his medications , not sure what meds he takes which his daughter is in charge of. but he believes he is compliant with his meds. he denies smoking, alcohol or drugs Review of Systems Pertinent positives as noted in HPI. All other systems were reviewed and are negative Past Medical History Past Medical History: Coronary Artery Disease (CAD), Heart Failure, Dementia, Diabetes Mellitus, GERD/Reflux, Hyperlipidemia, Hypertension, Memory Impairment, Osteoarthritis (OA), Pneumonia, Prostate Disorder, Skin Disorder, Vascular Disorder Additional Past Medical History / Comment(s): Recent falls since diagnosed with covid and diarrhea/incontinence, IDDM type II, neuropathy in bilateral hands/feet, "beginnings" of dementia, systolic CHF, PAD, current wound L foot, BPH, chronic back pain, bronchitis, sinus issues. History of Any Multi-Drug Resistant Organisms: None Reported Past Surgical History: Coronary Bypass/CABG, Orthopedic Surgery Additional Past Surgical History / Comment(s): 2014 CABG 4 vessel/bioprosthetic aortic valve, angiograms, aortagram with bilateral run-offs, PTBA/atherectomy L leg, L foot surgery for crush injury, colonoscopy, bilateral cataract removals. Past Anesthesia/Blood Transfusion Reactions: No Reported Reaction Past Psychological History: Anxiety, Depression Smoking Status: Never smoker Past Alcohol Use History: Heavy Past Drug Use History: None Reported - Past Family History Father Family Medical History: Congestive Heart Failure (CHF) Mother Family Medical History: Congestive Heart Failure (CHF) Medications and Allergies Home Medications Medication Instructions Recorded Confirmed Type Omeprazole [PriLOSEC] 20 mg PO DAILY 02/23/15 02/21/23 History Donepezil [Aricept] 10 mg PO HS #30 03/13/15 02/21/23 Rx Aspirin EC [Ecotrin Low Dose] 81 mg PO DAILY 03/07/17 02/21/23 History Metoprolol Succinate (ER) [Toprol 50 mg PO DAILY 03/07/17 02/21/23 History XL] Tamsulosin HCl [Flomax] 0.4 mg PO DAILY 03/07/17 02/21/23 History Furosemide [Lasix] 40 mg PO DAILY 11/08/19 02/21/23 History Insulin Aspart [NovoLOG Flexpen] See Protocol SQ TID-W/MEALS 11/08/19 02/21/23 History Clopidogrel [Plavix] 75 mg PO DAILY 01/21/20 02/21/23 History Gabapentin [Neurontin] 300 mg PO BID #6 cap 01/23/20 02/21/23 Rx Amitriptyline HCl [Elavil] 25 mg PO HS 03/16/22 02/21/23 History Cholecalciferol [Vitamin D3 (25 50 mcg PO DAILY 03/16/22 02/21/23 History Mcg = 1000 Iu)] Oxybutynin Chloride [Oxybutynin 10 mg PO DAILY 03/16/22 02/21/23 History Chloride ER] Potassium Chloride ER [K-Dur 10] 10 meq PO DAILY 03/16/22 02/21/23 History traMADol HCL 50 mg PO BID 03/16/22 02/21/23 History Atorvastatin [Lipitor] 80 mg PO DAILY #30 tab 03/21/22 02/21/23 Rx Insulin Glargine,Hum.rec.anlog 56 unit SQ W/LUNCH 04/05/22 02/21/23 History [Lantus Solostar Pen] Ondansetron Odt [Zofran Odt] 8 mg PO Q12HR PRN 02/21/23 02/21/23 History amLODIPine [Norvasc] 5 mg PO DAILY 02/21/23 02/21/23 History lisinopriL [Zestril] 2.5 mg PO DAILY 02/21/23 02/21/23 History Allergies Allergy/AdvReac Type Severity Reaction Status Date / Time No Known Allergies Allergy Verified 02/21/23 19:16 Physical Exam Vitals: Vital Signs Temp Pulse Resp BP Pulse Ox 02/21/23 21:10 98 18 126/69 93 L 02/21/23 18:22 89 19 156/69 92 L 02/21/23 15:55 98.8 F 99 22 158/86 94 L Intake and Output 02/21/23 02/21/23 02/21/23 06:59 14:59 22:59 Other: Weight 105.233 kg Constitutional: No acute distress, conversant, pleasant Eyes: Anicteric sclerae, moist conjunctiva, Pupils equal round reactive to light ENMT: NC/AT Oropharynx clear, no erythema, or exudates Neck: Supple, no masses, or JVD No carotid bruits No thyromegaly Lungs: inspiratory rales throughout the mid and lower lungs, no wheezing Clear to percussion Normal respiratory effort, no accessory muscle use Cardiovascular: Heart regular in rate and rhythm, No murmurs, gallops, or rubs +2 bilateral peripheral edema of the legs Abdominal: Soft Nontender, no guarding, rebound or rigidity Abdomen moving with respiration Normoactive bowel sounds No hepatomegaly, No splenomegaly No palpable mass No abdominal wall hernia noted Skin: Normal temperature, tone, texture, turgor No induration No subcutaneous nodules No rash, lesions No ulcers Extremities: No digital cyanosis No clubbing Pedal pulses intact and symmetrical Radial pulses intact and symmetrical No calf tenderness Psychiatric: Alert and oriented to person, place Neuro Muscles Strength 4/5 in all 4 extremities Sensation to light touch grossly present throughout Cranial nerves II-XII grossly intact Lymphatics: no palpable cervical or supraclavicular lymph nodes Results CBC & Chem 7: 02/21/23 16:33 02/21/23 16:33 Labs: Abnormal Lab Results - Last 24 Hours (Table) 02/21/23 02/21/23 02/21/23 Range/Units 16:31 16:33 16:33 Hct 38.1 L (39.0-53.0) % Lymphocytes # 0.6 L (1.0-4.8) k/uL Sodium 136 L (137-145) mmol/L Carbon Dioxide 21 L (22-30) mmol/L BUN 21 H (9-20) mg/dL Glucose 101 H (74-99) mg/dL POC Glucose (mg/dL) 112 H (70-110) mg/dL Calcium 8.1 L (8.4-10.2) mg/dL Total Bilirubin 2.1 H (0.2-1.3) mg/dL Troponin I (0.000-0.034) ng/mL Albumin 3.3 L (3.5-5.0) g/dL 02/21/23 02/21/23 Range/Units 16:33 20:43 Hct (39.0-53.0) % Lymphocytes # (1.0-4.8) k/uL Sodium (137-145) mmol/L Carbon Dioxide (22-30) mmol/L BUN (9-20) mg/dL Glucose (74-99) mg/dL POC Glucose (mg/dL) (70-110) mg/dL Calcium (8.4-10.2) mg/dL Total Bilirubin (0.2-1.3) mg/dL Troponin I 0.166 H* 0.169 H* (0.000-0.034) ng/mL Albumin (3.5-5.0) g/dL Assessment and Plan Assessment: 77 year old male with dementia, hypertension , acute hypoxic respiratory failure pulmonary congestion rule out CHF valvular heart disease with moderate to severe aortic valve stenosis echo February 2022, LVEF was 50% 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 lasix IV 40 mg BID IVP check echocardiogram cardiology consult supplemental oxygen as needed resume lisinopril 2.5 mg daily , metoprolol 50 mg po daily , amlodipine 5 mg po daily Brain CT negative for acute pathology blood work showed Hgb 13.3 and WBC 8 both unremarkable , no fever BUN 21 cr 1.14 both unremarkable trops slightly elevated but stable at 0.166 and 0.169 , patient had prior elevated trops levels BNP 6070 elevated EKG no acute ST changes h/o CAD post CABG contine home dose of aspirin , plavix and statin DM resume levemir home dose start insulin sliding scale patient symptoms possibly due to progression of aortic valve stenosis or new congestive heart failure , await cardio input and echocardiogram eval in the morning will continue with eliquis 2.5 mg bid for DVT PPX for now denies any chest pain full code
[2023-02-22 01:23] LABS: Appearance,Urine Clear (Clear); Bilirubin,Urine Negative (Negative); Blood,Urine Trace (Negative); Color,Urine Colorless; Glucose,Urine (UA) Negative (Negative); Ketones,Urine Negative (Negative); Leukocyte Esterase,Urine Negative (Negative); Mucus,Urine Rare /hpf; Nitrite,Urine Negative (Negative); Protein,Urine Trace (Negative); Specific Gravity,Urine 1.005 (1.001-1.035); Urobilinogen,Urine <2.0 mg/dL (<2.0)
[2023-02-22] MEDS: ACETAMINOPHEN TAB 325 MG TAB PO PRN (03:19)
[2023-02-22 05:13] LABS: Basophils % (A) 0 %; Eosinophils % (A) 0 %; HCT 39.7 % (39.0-53.0); HGB 13.8 gm/dL (13.0-17.5); Lymphocytes # (A) 0.5 k/uL (1.0-4.8); Lymphocytes % (A) 9 %; MCH 28.8 pg (25.0-35.0); MCHC 34.6 g/dL (31.0-37.0); MCV 83.1 fL (80.0-100.0); Mean Platelet Volume 7.3; Monocytes # (A) 0.4 k/uL (0-1.0); Monocytes % (A) 6 %; Neutrophils # (A) 5.2 k/uL (1.3-7.7); Neutrophils % (A) 83 %; Platelet Count 167 k/uL (150-450); RBC 4.78 m/uL (4.30-5.90); RDW 14.6 % (11.5-15.5); WBC 6.3 k/uL (3.8-10.6)
[2023-02-22 05:25] LABS: Potassium 3.8 mmol/L (3.5-5.1)
[2023-02-22] MEDS: INSULIN ASPART (NovoLOG) 100 UNIT/ML VIAL SQ SCH ×4 (06:12→20:15)
[2023-02-22 06:13] LABS: Glucose,Whole Blood 120 mg/dL (70-110)
[2023-02-22] MEDS: PANTOPRAZOLE 40 MG TABLET PO SCH (06:13)
[2023-02-22] MEDS: HEPARIN SODIUM,PORCINE/PF 5,000 UNIT/0.5 ML SYRINGE SQ SCH (09:35)
[2023-02-22] MEDS: traMADol 50 MG TAB PO SCH ×2 (09:35→20:14)
[2023-02-22] MEDS: ASPIRIN 81 MG PO SCH (09:36)
[2023-02-22] MEDS: ATORVASTATIN 80 MG TAB PO SCH (09:36)
[2023-02-22] MEDS: CLOPIDOGREL 75 MG TAB PO SCH (09:37)
[2023-02-22] MEDS: METOPROLOL SUCCINATE (ER) 50 MG TAB.ER.24H PO SCH (09:37)
[2023-02-22] MEDS: amLODIPine 5 MG TAB PO SCH (09:37)
[2023-02-22] MEDS: OXYBUTYNIN 10 MG TAB.ER.24 PO SCH (09:37)
[2023-02-22] MEDS: FUROSEMIDE 10 MG/ML 4 ML VIAL IV SCH ×2 (09:37→20:14)
[2023-02-22] MEDS: TAMSULOSIN 0.4 MG CAP.ER.24H PO SCH (09:37)
--- NOTE | 2023-02-22 10:13 | CA ---
Transthoracic Echo Report Name: Tim Coleman Age: 77 Gender: M : 1945 Exam Date: 02/22/2023 08:24 Exam Location: [place] [facility] Ht (in): 69 Wt (lb): 215 Ordering Physician: Shamar Paulson MD Attending/Referring Phys: Deputy Chief Sheriff Gretchen Chu RDCS Procedure CPT: Indications: chf Cardiac Hx: CABG Technical Quality: Technically difficult study Contrast 1: Lumason Total Dose (mL): 4 Contrast 2: Total Dose (mL): MEASUREMENTS (Male / Female) Normal Values 2D ECHO LV Diastolic Diameter PLAX 5.1 cm 4.2 - 5.9 / 3.9 - 5.3 cm LV Systolic Diameter PLAX 3.7 cm IVS Diastolic Thickness 1.7 cm 0.6 - 1.0 / 0.6 - 0.9 cm LVPW Diastolic Thickness 1.7 cm 0.6 - 1.0 / 0.6 - 0.9 cm LV Relative Wall Thickness 0.7 RV Internal Dim ED PLAX 2.8 cm LVOT Diameter 2.1 cm M-MODE Aortic Root Diameter MM 3.6 cm DOPPLER AV Peak Velocity 487.9 cm/s AV Peak Gradient 95.2 mmHg AV Mean Velocity 376.1 cm/s AV Mean Gradient 62.7 mmHg AV Velocity Time Integral 116.9 cm LVOT Peak Velocity 83.7 cm/s LVOT Peak Gradient 2.8 mmHg AV Area Cont Eq pk 0.6 cm??? FINDINGS Left Ventricle Left ventricular ejection fraction is estimated at 50-55 %. Left ventricular cavity size normal. Severe concentric left ventricular hypertrophy. Right Ventricle Normal right ventricular size. No TR unable to estimate the right ventricular systolic pressure. Right Atrium Normal right atrial size. Left Atrium Left atrium not well visualized. Mitral Valve Mitral annular calcification. Aortic Valve Moderate Aortic valve sclerosis. Severe aortic stenosis with a peak velocity of 4.88 m/s, peak gradient 95 mmHg, mean gradient 63 mmHg, and estimated aortic valve area of 0.6 cm???. Tricuspid Valve Tricuspid valve not well visualized. Pulmonic Valve Pulmonic valve not well visualized. Pericardium Normal pericardium. No pericardial effusion. Aorta Normal size aortic root and proximal ascending aorta. CONCLUSIONS LV systolic function is fairly well-preserved with concentric LVH. There is severe aortic stenosis with more than 4 m/s velocity. No pericardial effusion no significant the pulmonary hypertension although right-sided pressures were poorly quantified Previewed by: Dr. Billy Brnach MD (Electronically Signed) Final Date: 22 February 2023 10:13
--- NOTE | 2023-02-22 10:43 | P.CRDCN ---
History of Present Illness History of present illness: HISTORY OF PRESENT ILLNESS: This is a 77-year-old male with a past medical history significant for coronary artery disease with previous CABG, valvular heart disease, aortic stenosis and regurgitation, lower extremity PAD with prior angioplasty, hypertension, hyperl ipidemia, diabetes, congestive heart failure, and subdural hematoma. Patient follows in the office with Dr. Hodges. We have been asked to see the patient in consultation for congestive heart failure. Patient examined at the bedside. Patient states he has been feeling unwell for the past few days. He reports progressive shortness of breath. He also reports a cough with mild sputum production. He denies any chest pain or pressure. He denies having a fever at home. He states he has not been around anyone that has been sick to his knowledge. He reports compliance with his medications at home. He reports he has been following a low-sodium diet. Patient was found to be febrile this morning with a temperature of 101.7. * EKG reveals sinus mechanism with no signs of acute ischemia * Chest xray low lung volumes. Cardiomegaly and mild pulmonary vascular congestion. * Laboratory data: WBC 6.3. Hemoglobin 13.8. Platelet count 167. Sodium 135. Potassium 3.8. BUN 24. Creatinine 1.21. Troponin 0.166. 0.169. 0.136. 0.231. ProBNP 6070. * Current home cardiac medications include Plavix 75 mg daily, metoprolol succinate 50 mg daily, Lipitor 80 mg daily, amlodipine 5 mg daily, lisinopril 2.5 mg daily, Lasix 40 mg daily * Echocardiogram completed revealing ejection fraction 50-55%, severe aortic stenosis * Patient underwent 4 vessel CABG in February 2015 REVIEW OF SYSTEMS: At the time of my exam: CONSTITUTIONAL: Denies fever or chills. HEENT: Denies blurred vision, vision changes, or eye pain. Denies hemoptysis CARDIOVASCULAR: Denies chest pain. Denies orthopnea. Denies PND. Denies palpitations RESPIRATORY: Denies shortness of breath. GASTROINTESTINAL: Denies abdominal pain. Denies nausea or vomiting. HEMATOLOGIC: Denies bleeding disorders. GENITOURINARY: Denies any blood in urine. SKIN: Denies pruitis. Denies rash. PHYSICAL EXAM: VITAL SIGNS: Reviewed. GENERAL: Well-developed in no acute distress. HEENT: Head is normocephalic. Pupils are equal, round. Sclerae anicteric. Mucous membranes of the mouth are moist. Neck supple. No JVD or thyromegaly LUNGS: Respirations even and unlabored. Lungs coarse to auscultation bilaterally. HEART: Regular rate and rhythm. S1 and S2 heard. Systolic murmur noted ABDOMEN: Soft. Nondistended. Nontender. EXTREMITIES: Normal range of motion. No clubbing or cyanosis. Peripheral pulses intact. 1+ bilateral lower extremity edema NEUROLOGIC: Awake and alert. Oriented x 3. ASSESSMENT: Generalized weakness and malaise Febrile illness, etiology unclear Acute on chronic heart failure with preserved ejection fraction Coronary artery disease with previous four-vessel CABG, 2014 Peripheral arterial disease with previous angioplasty History of subdural hematoma, 2021 Hypertension Hyperlipidemia Diabetes PLAN: Resume home medications Continue IV Lasix 40 mg every 12 hours Daily weights, accurate I&O, and monitoring of kidney function Management of patient's fever per internal medicine. Recommend repeating testing for covid/influenza Further recommendations pending patient's course Nurse practitioner note has been reviewed by physician. Signing provider agrees with the documented findings, assessment, and plan of care. Past Medical History Past Medical History: Coronary Artery Disease (CAD), Heart Failure, Dementia, Diabetes Mellitus, GERD/Reflux, Hyperlipidemia, Hypertension, Memory Impairment, Osteoarthritis (OA), Pneumonia, Prostate Disorder, Skin Disorder, Vascular Disorder Additional Past Medical History / Comment(s): Recent falls since diagnosed with covid and diarrhea/incontinence, IDDM type II, neuropathy in bilateral hands/feet, "beginnings" of dementia, systolic CHF, PAD, current wound L foot, BPH, chronic back pain, bronchitis, sinus issues. History of Any Multi-Drug Resistant Organisms: None Reported Past Surgical History: Coronary Bypass/CABG, Orthopedic Surgery Additional Past Surgical History / Comment(s): 2014 CABG 4 vessel/bioprosthetic aortic valve, angiograms, aortagram with bilateral run-offs, PTBA/atherectomy L leg, L foot surgery for crush injury, colonoscopy, bilateral cataract removals. Past Anesthesia/Blood Transfusion Reactions: No Reported Reaction Past Psychological History: Anxiety, Depression Smoking Status: Never smoker Past Alcohol Use History: Heavy Past Drug Use History: None Reported - Past Family History Father History Unknown: Yes Family Medical History: Congestive Heart Failure (CHF) Mother History Unknown: Yes Family Medical History: Congestive Heart Failure (CHF) Medications and Allergies Home Medications Medication Instructions Recorded Confirmed Type Omeprazole [PriLOSEC] 20 mg PO DAILY 02/23/15 02/21/23 History Donepezil [Aricept] 10 mg PO HS #30 03/13/15 02/21/23 Rx Aspirin EC [Ecotrin Low Dose] 81 mg PO DAILY 03/07/17 02/21/23 History Metoprolol Succinate (ER) [Toprol 50 mg PO DAILY 03/07/17 02/21/23 History XL] Tamsulosin HCl [Flomax] 0.4 mg PO DAILY 03/07/17 02/21/23 History Furosemide [Lasix] 40 mg PO DAILY 11/08/19 02/21/23 History Insulin Aspart [NovoLOG Flexpen] See Protocol SQ TID-W/MEALS 11/08/19 02/21/23 History Clopidogrel [Plavix] 75 mg PO DAILY 01/21/20 02/21/23 History Gabapentin [Neurontin] 300 mg PO BID #6 cap 01/23/20 02/21/23 Rx Amitriptyline HCl [Elavil] 25 mg PO HS 03/16/22 02/21/23 History Cholecalciferol [Vitamin D3 (25 50 mcg PO DAILY 03/16/22 02/21/23 History Mcg = 1000 Iu)] Oxybutynin Chloride [Oxybutynin 10 mg PO DAILY 03/16/22 02/21/23 History Chloride ER] Potassium Chloride ER [K-Dur 10] 10 meq PO DAILY 03/16/22 02/21/23 History traMADol HCL 50 mg PO BID 03/16/22 02/21/23 History Atorvastatin [Lipitor] 80 mg PO DAILY #30 tab 03/21/22 02/21/23 Rx Insulin Glargine,Hum.rec.anlog 56 unit SQ W/LUNCH 04/05/22 02/21/23 History [Lantus Solostar Pen] Ondansetron Odt [Zofran Odt] 8 mg PO Q12HR PRN 02/21/23 02/21/23 History amLODIPine [Norvasc] 5 mg PO DAILY 02/21/23 02/21/23 History lisinopriL [Zestril] 2.5 mg PO DAILY 02/21/23 02/21/23 History Allergies Allergy/AdvReac Type Severity Reaction Status Date / Time No Known Allergies Allergy Verified 02/21/23 19:16 Physical Exam Vitals: Vital Signs Temp Pulse Pulse Resp BP BP Pulse Ox 02/22/23 08:42 92 L 02/22/23 08:00 98.2 F 71 18 134/66 93 L 02/22/23 04:12 99.5 F 02/22/23 03:11 101.7 F H 98 17 162/83 91 L 02/21/23 23:36 99.9 F H 97 17 152/71 91 L 02/21/23 23:35 99.9 F H 97 18 152/71 91 L 02/21/23 22:21 92 17 152/91 94 L 02/21/23 21:10 98 18 126/69 93 L 02/21/23 18:22 89 19 156/69 92 L 02/21/23 15:55 98.8 F 99 22 158/86 94 L Intake and Output 02/21/23 02/22/23 02/22/23 22:59 06:59 14:59 Intake Total 118 10 Output Total 625 Balance 118 -625 10 Intake: IV 10 Invasive Line 1 10 Oral 118 Output: Urine 625 Other: Voiding Method Bedside Commode Toilet Urinal Bedside Commode External Catheter Urinal # Voids 1 # Bowel Movements 1 Weight 105.233 kg 97.8 kg Results 02/22/23 04:37 02/22/23 04:37 Cardiac Enzymes 02/21/23 02/21/23 02/21/23 Range/Units 16:33 16:33 20:43 AST 27 (17-59) U/L Troponin I 0.166 H* 0.169 H* (0.000-0.034) ng/mL 02/22/23 02/22/23 Range/Units 00:45 07:56 AST (17-59) U/L Troponin I 0.136 H* 0.231 H* (0.000-0.034) ng/mL Coagulation 02/21/23 Range/Units 16:33 PT 11.2 (9.0-12.0) sec APTT 25.6 (22.0-30.0) sec CBC 02/21/23 02/22/23 Range/Units 16:33 04:37 WBC 8.0 6.3 (3.8-10.6) k/uL RBC 4.57 4.78 (4.30-5.90) m/uL Hgb 13.3 13.8 (13.0-17.5) gm/dL Hct 38.1 L 39.7 (39.0-53.0) % Plt Count 150 167 (150-450) k/uL Comprehensive Metabolic Panel 02/21/23 02/22/23 Range/Units 16:33 04:37 Sodium 136 L 135 L (137-145) mmol/L Potassium 4.2 3.8 (3.5-5.1) mmol/L Chloride 105 102 (98-107) mmol/L Carbon Dioxide 21 L 19 L (22-30) mmol/L BUN 21 H 24 H (9-20) mg/dL Creatinine 1.14 1.21 (0.66-1.25) mg/dL Glucose 101 H 129 H (74-99) mg/dL Calcium 8.1 L 8.0 L (8.4-10.2) mg/dL AST 27 (17-59) U/L ALT 16 (4-49) U/L Alkaline Phosphatase 98 (38-126) U/L Total Protein 6.5 (6.3-8.2) g/dL Albumin 3.3 L (3.5-5.0) g/dL Current Medications Generic Name Dose Route Start Last Admin Trade Name Freq PRN Reason Stop Dose Admin Acetaminophen 650 mg 02/22/23 03:15 02/22/23 03:19 Acetaminophen Tab 325 Mg Tab PO 650 mg Q4HR PRN Administration Fever and/ or Pain Amlodipine Besylate 5 mg 02/22/23 09:00 02/22/23 09:37 Amlodipine 5 Mg Tab PO 5 mg DAILY MELINA Administration Aspirin 81 mg 02/22/23 09:00 02/22/23 09:36 Aspirin 81 Mg PO 81 mg DAILY MELINA Administration Atorvastatin Calcium 80 mg 02/22/23 09:00 02/22/23 09:36 Atorvastatin 80 Mg Tab PO 80 mg DAILY MELINA Administration Clopidogrel Bisulfate 75 mg 02/22/23 09:00 02/22/23 09:37 Clopidogrel 75 Mg Tab PO 75 mg DAILY MELINA Administration Furosemide 40 mg 02/21/23 21:00 02/22/23 09:37 Furosemide 10 Mg/Ml 4 Ml Vial IV 40 mg Q12HR MELINA Administration Heparin Sodium (Porcine) 5,000 unit 02/21/23 21:00 02/22/23 09:35 Heparin Sodium,Porcine/Pf 5,000 Unit/0.5 Ml Syringe SQ 5,000 unit Q12HR MELINA Administration Azithromycin 500 mg/ Sodium 250 mls @ 250 mls/hr 02/22/23 09:00 Chloride IVPB 02/24/23 09:59 DAILY MELINA Protocol Ceftriaxone Sodium 2 gm/ 50 mls @ 100 mls/hr 02/22/23 09:00 02/22/23 09:34 Sodium Chloride IVPB 100 mls/hr Q24HR MELINA Administration Protocol Insulin Aspart 0 unit 02/22/23 07:30 02/22/23 06:12 Insulin Aspart (Novolog) 100 Unit/Ml Vial SQ Not Given ACHS [facility] Protocol Insulin Detemir 56 unit 02/22/23 12:30 Insulin Detemir (Levemir) 100 Unit/Ml Syr SQ W/LUNCH MELINA Lisinopril 2.5 mg 02/22/23 09:00 02/22/23 09:36 Lisinopril 2.5 Mg Tab PO 2.5 mg DAILY MELINA Administration Metoprolol Succinate 50 mg 02/22/23 09:00 02/22/23 09:37 Metoprolol Succinate (Er) 50 Mg Tab.Er.24h PO 50 mg DAILY MELINA Administration Naloxone HCl 0.2 mg 02/21/23 18:23 Naloxone 0.4 Mg/Ml 1 Ml Vial IV Q2M PRN Opioid Reversal Oxybutynin Chloride 10 mg 02/22/23 09:00 02/22/23 09:37 Oxybutynin 10 Mg Tab.Er.24 PO 10 mg DAILY MELINA Administration Pantoprazole Sodium 40 mg 02/22/23 07:30 02/22/23 06:13 Pantoprazole 40 Mg Tablet PO 40 mg [id number] MELINA Administration Tamsulosin HCl 0.4 mg 02/22/23 09:00 02/22/23 09:37 Tamsulosin 0.4 Mg Cap.Er.24h PO 0.4 mg DAILY MELINA Administration Tramadol HCl 50 mg 02/22/23 09:00 02/22/23 09:35 Tramadol 50 Mg Tab PO 50 mg BID MELINA Administration Intake and Output 02/21/23 02/22/23 02/22/23 22:59 06:59 14:59 Intake Total 118 10 Output Total 625 Balance 118 -625 10 Intake: IV 10 Invasive Line 1 10 Oral 118 Output: Urine 625 Other: Voiding Method Bedside Commode Toilet Urinal Bedside Commode External Catheter Urinal # Voids 1 # Bowel Movements 1 Weight 105.233 kg 97.8 kg 02/22/23 04:37 02/22/23 04:37
--- NOTE | 2023-02-22 11:05 | P.PN ---
Subjective Progress Note Date: 02/22/23 Patient seen and examined at bedside. instructional design technologist was in the room and was trying to obtain an echocardiogram to the patient. However, patient was very irritable and uncooperative. Eventually, patient was able to get the echocardiogram. Patient states that shortness of breath and cough for the seen. Patient admits to productive cough. She did develop a fever early this morning. Patient denies chest pain, nausea, vomiting, diarrhea, or constipation. Objective - Vital Signs Vital signs: Vital Signs Temp 98.2 F 02/22/23 08:00 Pulse 71 02/22/23 08:00 Resp 18 02/22/23 08:00 BP 134/66 02/22/23 08:00 Pulse Ox 92 L 02/22/23 08:42 FiO2 Intake & Output 02/21/23 02/22/23 02/22/23 18:59 06:59 18:59 Intake Total 118 10 Output Total 625 Balance -507 10 Weight 105.233 kg 97.8 kg Intake: IV 10 Invasive Line 1 10 Oral 118 Output: Urine 625 Other: Voiding Method Bedside Commode Toilet Urinal Bedside Commode External Catheter Urinal # Voids 1 # Bowel Movements 1 - Exam General: [non toxic], [no distress], [appears at stated age] Derm: [warm], [dry] Head: [atraumatic], [normocephalic], [symmetric] Eyes: [EOMI], [no lid lag], [anicteric sclera] Mouth: [no lip lesion], [mucus membranes moist] Cardiovascular: [S1S2 reg], [no murmur], [positive posterior tibial pulse b ilateral], Lungs: [Diminished bilateral], [no rhonchi, no rales] , [no accessory muscle use] Abdominal: [soft], [ nontender to palpation], [no guarding], [no appreciable organomegaly] Ext: [no gross muscle atrophy], [no edema], [no contractures] Neuro: [ CN II-XI grossly intact], [no focal neuro deficits] Psych: [Alert], [oriented], [appropriate affect] - Labs CBC & Chem 7: 02/22/23 04:37 02/22/23 04:37 Labs: Abnormal Lab Results - Last 24 Hours (Table) 02/21/23 02/21/2323 Range/Units 16:31 16:33 16:33 Hct 38.1 L (39.0-53.0) % Lymphocytes # 0.6 L (1.0-4.8) k/uL Sodium 136 L (137-145) mmol/L Carbon Dioxide 21 L (22-30) mmol/L BUN 21 H (9-20) mg/dL Glucose 101 H (74-99) mg/dL POC Glucose (mg/dL) 112 H (70-110) mg/dL Calcium 8.1 L (8.4-10.2) mg/dL Total Bilirubin 2.1 H (0.2-1.3) mg/dL Troponin I (0.000-0.034) ng/mL Albumin 3.3 L (3.5-5.0) g/dL Procalcitonin (0.02-0.09) ng/mL Urine Protein (Negative) Urine Blood (Negative) Urine Mucus (None) /hpf 02/21/23 02/21/23 02/22/23 Range/Units 16:33 20:43 00:33 Hct (39.0-53.0) % Lymphocytes # (1.0-4.8) k/uL Sodium (137-145) mmol/L Carbon Dioxide (22-30) mmol/L BUN (9-20) mg/dL Glucose (74-99) mg/dL POC Glucose (mg/dL) (70-110) mg/dL Calcium (8.4-10.2) mg/dL Total Bilirubin (0.2-1.3) mg/dL Troponin I 0.166 H* 0.169 H* (0.000-0.034) ng/mL Albumin (3.5-5.0) g/dL Procalcitonin (0.02-0.09) ng/mL Urine Protein Trace H (Negative) Urine Blood Trace H (Negative) Urine Mucus Rare H (None) /hpf 02/22/23 02/22/23 02/22/23 Range/Units 00:45 04:37 04:37 Hct (39.0-53.0) % Lymphocytes # 0.5 L (1.0-4.8) k/uL Sodium 135 L (137-145) mmol/L Carbon Dioxide 19 L (22-30) mmol/L BUN 24 H (9-20) mg/dL Glucose 129 H (74-99) mg/dL POC Glucose (mg/dL) (70-110) mg/dL Calcium 8.0 L (8.4-10.2) mg/dL Total Bilirubin (0.2-1.3) mg/dL Troponin I 0.136 H* (0.000-0.034) ng/mL Albumin (3.5-5.0) g/dL Procalcitonin (0.02-0.09) ng/mL Urine Protein (Negative) Urine Blood (Negative) Urine Mucus (None) /hpf 02/22/23 02/22/23 02/22/23 Range/Units 04:37 06:09 07:56 Hct (39.0-53.0) % Lymphocytes # (1.0-4.8) k/uL Sodium (137-145) mmol/L Carbon Dioxide (22-30) mmol/L BUN (9-20) mg/dL Glucose (74-99) mg/dL POC Glucose (mg/dL) 120 H (70-110) mg/dL Calcium (8.4-10.2) mg/dL Total Bilirubin (0.2-1.3) mg/dL Troponin I 0.231 H* (0.000-0.034) ng/mL Albumin (3.5-5.0) g/dL Procalcitonin 0.54 H (0.02-0.09) ng/mL Urine Protein (Negative) Urine Blood (Negative) Urine Mucus (None) /hpf Assessment and Plan Assessment: A/P 1. Pyrexia rule out viral versus bacterial etiology Blood cultures ordered, procalcitonin pending Influenza A/B, Covid, and RSV PCR ordered IV Abx Azithromycin 500mg IVPB daily and Rocephin 2g IVPB daily ordered until further data is obtained. Consider de-escalating if results are negative. 2. Acute hypoxic respiratory failure with pulmonary congestion likely due to acute systolic CHF with underlying infectious etiology Patient has a history valvular heart disease with moderate to severe aortic valve stenosis echo February 2022, LVEF was 50% at that time Repeat echocardiogram pending telemetry ordered vitals q4H lasix IV 40 mg BID IVP cardiology following recommendations appreciated supplemental oxygen as needed continue lisinopril 2.5 mg daily , metoprolol 50 mg po daily , amlodipine 5 mg po daily Brain CT negative for acute pathology trops elevated at 0.136 to 0.231 third level pending cardiology following BNP was elevated at [address] changes 3. h/o CAD post CABG contine home dose of aspirin , plavix and statin 4. DM resume levemir home dose start insulin sliding scale 5. Hx hypertension Resume lisinopril 2.5 mg by mouth daily and metoprolol 50 mg by mouth daily 6. Hx of dementia and BPH resume home meds 7. History of hyperlipidemia Resume atorvastatin 80 mg by mouth daily Patient is full code 8. GI DVT prophylaxis Disposition: Home with home care versus rehab in 2-3 days. PT OT consult plac ed. Patient is a full code
[2023-02-22 11:41] LABS: Glucose,Whole Blood 163 mg/dL (70-110)
[2023-02-22] MEDS: AZITHROMYCIN 500 MG in SODIUM CHLORIDE 0.9% 250 ML IVPB SCH (12:11)
[2023-02-22] MEDS: INSULIN DETEMIR (LEVEMIR) 100 UNIT/ML SYR SQ SCH (13:55)
--- NOTE | 2023-02-22 15:57 | P.CNNES ---
History of Present Illness Consult date: 02/22/23 Requesting physician: Suzanne Bryson Reason for Consult: eval for anticoagulation, hx of subdural bleed, new aflutter History of Present Illness: Patient is a 77-year-old right-handed male, with history of diabetes, CHF, hypertension, who came to the hospital yesterday at 3:52 PM because of worsening CHF. He was having difficulty with breathing, feet swelling, not eating, confused, coughing a lot. He also has been having nausea and some vomiting for last 1 week. Patient was found to have new onset atrial fibrillation for which cardiology recommended anticoagulation with Eliquis. However patient has history of subdural hematoma for which neurology was consulted for clearance. Patient suffered from recurrent falls in around October 2022. Computed tomography scan of head performed on 11/11/2022 revealed right-sided subdural hematoma. Patient was transferred to [facility], and was treated conserva tively. On review of records, it appears that patient was taking aspirin and Plavix at that time. Patient has history of diabetes since he was in 50s. He has hypertension. He used to drink when he was much younger, but not anymore. Denies and never smoked tobacco. Patient's daughter admits that patient does have mild to moderate dementia. Patient's blood test shows normal CBC, PT/PTT, sodium 136 potassium 4.2, BUN 21, creatinine 1.14. Hepatic panel is normal, troponins are mildly elevated. UA negative. Influenza, RSV and coronal virus PCR negative. EKG showed atrial flutter. Chest x-ray revealed low lung volumes, cardiomegaly and mild pulmonary vascular congestion. Correlate with BNP for CHF. CT head revealed no evidence of acute intracranial hemorrhage. No previous bleed visible. Evidence of multiple old lacune's involving right centrum semiovale, right periventricular f rontal region, left internal, and Possibly Right Pontine Region. There is evidence of impacted cerumen bilaterally. Visualized paranasal sinuses are clear. Review of Systems Constitutional: Reports chills, Reports weight loss, Denies fever Eyes: denies blurred vision, denies pain Ears: bilateral: decreased hearing, tinnitus, deny: earache Ears, nose, mouth and throat: Reports headache, Reports sore throat Cardiovascular: Reports chest pain, Reports shortness of breath Respiratory: Reports cough, Reports excessive sputum Gastrointestinal: Reports nausea, Reports vomiting, Denies abdominal pain, Denies diarrhea Musculoskeletal: Reports muscle weakness, Reports myalgias Integumentary: Denies pruritus, Denies rash Neurological: Reports as per HPI Psychiatric: Denies anxiety, Denies depression Endocrine: Reports fatigue, Reports weight change Past Medical History Past Medical History: Coronary Artery Disease (CAD), Heart Failure, Dementia, Diabetes Mellitus, GERD/Reflux, Hyperlipidemia, Hypertension, Memory Impairment, Osteoarthritis (OA), Pneumonia, Prostate Disorder, Skin Disorder, Vascular Disorder Additional Past Medical History / Comment(s): Recent falls since diagnosed with covid and diarrhea/incontinence, IDDM type II, neuropathy in bilateral hands/feet, "beginnings" of dementia, systolic CHF, PAD, current wound L foot, BPH, chronic back pain, bronchitis, sinus issues. History of Any Multi-Drug Resistant Organisms: None Reported Past Surgical History: Coronary Bypass/CABG, Orthopedic Surgery Additional Past Surgical History / Comment(s): 2014 CABG 4 vessel/bioprosthetic aortic valve, angiograms, aortagram with bilateral run-offs, PTBA/atherectomy L leg, L foot surgery for crush injury, colonoscopy, bilateral cataract removals. Past Anesthesia/Blood Transfusion Reactions: No Reported Reaction Past Psychological History: Anxiety, Depression Smoking Status: Never smoker Past Alcohol Use History: Heavy Past Drug Use History: None Reported - Past Family History Father History Unknown: Yes Family Medical History: Congestive Heart Failure (CHF) Mother History Unknown: Yes Family Medical History: Congestive Heart Failure (CHF) Medications and Allergies Home Medications Medication Instructions Recorded Confirmed Type Omeprazole [PriLOSEC] 20 mg PO DAILY 02/23/15 02/21/23 History Donepezil [Aricept] 10 mg PO HS #30 03/13/15 02/21/23 Rx Aspirin EC [Ecotrin Low Dose] 81 mg PO DAILY 03/07/17 02/21/23 History Metoprolol Succinate (ER) [Toprol 50 mg PO DAILY 03/07/17 02/21/23 History XL] Tamsulosin HCl [Flomax] 0.4 mg PO DAILY 03/07/17 02/21/23 History Furosemide [Lasix] 40 mg PO DAILY 11/08/19 02/21/23 History Insulin Aspart [NovoLOG Flexpen] See Protocol SQ TID-W/MEALS 11/08/19 02/21/23 History Clopidogrel [Plavix] 75 mg PO DAILY 01/21/20 02/21/23 History Gabapentin [Neurontin] 300 mg PO BID #6 cap 01/23/20 02/21/23 Rx Amitriptyline HCl [Elavil] 25 mg PO HS 03/16/22 02/21/23 History Cholecalciferol [Vitamin D3 (25 50 mcg PO DAILY 03/16/22 02/21/23 History Mcg = 1000 Iu)] Oxybutynin Chloride [Oxybutynin 10 mg PO DAILY 03/16/22 02/21/23 History Chloride ER] Potassium Chloride ER [K-Dur 10] 10 meq PO DAILY 03/16/22 02/21/23 History traMADol HCL 50 mg PO BID 03/16/22 02/21/23 History Atorvastatin [Lipitor] 80 mg PO DAILY #30 tab 03/21/22 02/21/23 Rx Insulin Glargine,Hum.rec.anlog 56 unit SQ W/LUNCH 04/05/22 02/21/23 History [Lantus Solostar Pen] Ondansetron Odt [Zofran Odt] 8 mg PO Q12HR PRN 02/21/23 02/21/23 History amLODIPine [Norvasc] 5 mg PO DAILY 02/21/23 02/21/23 History lisinopriL [Zestril] 2.5 mg PO DAILY 02/21/23 02/21/23 History Apixaban [Eliquis] 5 mg PO BID #60 tab 02/23/23 Rx Allergies Allergy/AdvReac Type Severity Reaction Status Date / Time No Known Allergies Allergy Verified 02/21/23 19:16 Physical Examination - Vital Signs Vital Signs: Vital Signs Temp Pulse Pulse Resp BP BP Pulse Ox 02/22/23 12:29 98.3 F 65 18 102/65 93 L 02/22/23 08:42 92 L 02/22/23 08:00 98.2 F 71 18 134/66 93 L 02/22/23 04:12 99.5 F 02/22/23 03:11 101.7 F H 98 17 162/83 91 L 02/21/23 23:36 99.9 F H 97 17 152/71 91 L 02/21/23 23:35 99.9 F H 97 18 152/71 91 L 02/21/23 22:21 92 17 152/91 94 L 02/21/23 21:10 98 18 126/69 93 L 02/21/23 18:22 89 19 156/69 92 L 02/21/23 15:55 98.8 F 99 22 158/86 94 L Intake and Output 02/22/23 02/22/23 02/22/23 06:59 14:59 22:59 Intake Total 250 Output Total 625 Balance -625 250 Intake: IV 10 Invasive Line 1 10 Oral 240 Output: Urine 625 Other: Voiding Method Bedside Commode Toilet Urinal Bedside Commode External Catheter Urinal # Voids 1 # Bowel Movements 1 Weight 97.8 kg Patient is an elderly male, in no acute distress. He appears tired. Patient is sitting comfortably in the recliner. Patient is alert awake. Patient states it is November and the year is . He does that he is in [facility] in [facility] in [facility]. He could not tell name of the current president. Speech and language functions are normal. Patient can name and repeat very well. No aphasia or dysarthria. Attention, concentration and fund of knowledge is limited. On cranial nerve examination, pupils are equal, round and reacting to light, visual romeo are full on confrontation, with no neglect on double simultaneous stimulation. Extraocular muscles are intact with no nystagmus. Face is symmetric, tongue protrudes to the midline. Palatal elevation and sensation normal, hearing is mild to moderately decreased and shoulder shrug normal, facial sensation normal. On muscle strength testing, there is no pronator drift and the strength is normal in arms and legs distally and proximally. Deep tendon reflexes are symmetric, trace in the upper limbs at biceps and brachioradialis, 1+ at the knees, absent ankles and plantars are possibly upgoing bilaterally. Sensory to touch is equal with no neglect on double simultaneous stimulation. Cerebellar function showed no ataxia for [id number] testing. Tone and bulk of muscles normal. Gait deferred.. On general examination, there is no carotid bruit or murmur, S1-S2 audible. Chest is clear on consultation. Abdomen is soft nontender. No organomegaly, bowel sounds present. Patient has mild pitting peripheral edema. He has hyperpigmentation of the lower legs. Results - Laboratory Findings CBC and BMP: 02/22/23 17:20 02/23/23 08:49 Abnormal Lab Findings: Abnormal Labs 02/21/23 02/21/23 02/21/23 16:31 16:33 16:33 Hct 38.1 L Lymphocytes # 0.6 L Sodium 136 L Carbon Dioxide 21 L BUN 21 H Glucose 101 H POC Glucose (mg/dL) 112 H Calcium 8.1 L Total Bilirubin 2.1 H Troponin I Albumin 3.3 L Procalcitonin Urine Protein Urine Blood Urine Mucus 02/21/23 02/21/23 02/22/23 16:33 20:43 00:33 Hct Lymphocytes # Sodium Carbon Dioxide BUN Glucose POC Glucose (mg/dL) Calcium Total Bilirubin Troponin I 0.166 H* 0.169 H* Albumin Procalcitonin Urine Protein Trace H Urine Blood Trace H Urine Mucus Rare H 02/22/23 02/22/23 02/22/23 00:45 04:37 04:37 Hct Lymphocytes # 0.5 L Sodium 135 L Carbon Dioxide 19 L BUN 24 H Glucose 129 H POC Glucose (mg/dL) Calcium 8.0 L Total Bilirubin Troponin I 0.136 H* Albumin Procalcitonin Urine Protein Urine Blood Urine Mucus 02/22/23 02/22/23 02/22/23 04:37 06:09 07:56 Hct Lymphocytes # Sodium Carbon Dioxide BUN Glucose POC Glucose (mg/dL) 120 H Calcium Total Bilirubin Troponin I 0.231 H* Albumin Procalcitonin 0.54 H Urine Protein Urine Blood Urine Mucus 02/22/23 02/22/23 11:39 11:51 Hct Lymphocytes # Sodium Carbon Dioxide BUN Glucose POC Glucose (mg/dL) 163 H Calcium Total Bilirubin Troponin I 0.461 H* Albumin Procalcitonin Urine Protein Urine Blood Urine Mucus Assessment and Plan Assessment: * Altered mental status probably related to mild Encephalopathy. * History of traumatic subdural hematoma right side October 2022, treated conservatively * Nausea, vomiting, unclear etiology * CT had revealed impacted cerumen bilateral eardrums. * Aortic stenosis, severe per echo report. 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 * I would suggest avoiding antiplatelet medication with it, unless necessary from cardiac standpoint. * I spoke to patient's daughter on the phone. She mentioned that patient has not had any falls since he came out of the hospital in October 2022. He underwent course of physical therapy and occupational therapy and has been doing well. Patient's daughter was informed that being on blood thinners, patient is higher risk for intracranial bleed from falls. She understands the risks. * Computed tomography scan of the head was reviewed, no evidence of subdural hematoma. 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 Patient has evidence of cerumen impaction in bilateral eardrums, right more than left. Patient may need Debrox eardrops, and may need flushing of the cerumen. * Patient is having some nausea vomiting. We will give Zofran. * 2-D echo revealed EF 50-55%, severe concentric LVH, severe aortic stenosis. Cardiology following. * Hemoglobin A1c 9.6 on 11/29/2022. Suggest optimize control of diabetes to target A1c < 7.0. * Check fasting lipid panel. * Neurology will follow clinically. Thank you for the consult. Time with Patient: Greater than 30
[2023-02-22 16:37] LABS: Glucose,Whole Blood 191 mg/dL (70-110)
[2023-02-22] MEDS ORDERED: ONDANSETRON 4 MG/2 ML VIAL IVP PRN (16:40)
[2023-02-22] MEDS ORDERED: HEPARIN SOD,PORK IN 0.45% NACL 25,000 UNIT in 0.45% NACL 1 250ML.BAG IV SCH (17:15)
[2023-02-22] MEDS: HEPARIN SODIUM 1,000 UN/ML (10ML VL) IV PRN ×2 (17:24→17:36)
[2023-02-22 17:57] LABS: Basophils % (A) 1 %; Eosinophils % (A) 1 %; HGB 13.8 gm/dL (13.0-17.5); Lymphocytes # (A) 0.5 k/uL (1.0-4.8); Lymphocytes % (A) 9 %; MCH 28.2 pg (25.0-35.0); MCHC 32.9 g/dL (31.0-37.0); MCV 85.7 fL (80.0-100.0); Mean Platelet Volume 7.2; Monocytes # (A) 0.4 k/uL (0-1.0); Monocytes % (A) 8 %; Neutrophils % (A) 80 %; Platelet Count 159 k/uL (150-450); RDW 14.3 % (11.5-15.5)
[2023-02-22 18:12] LABS: Partial Thromboplastin Time 26.4 sec (22.0-30.0)
[2023-02-22 20:06] LABS: Glucose,Whole Blood 280 mg/dL (70-110)
[2023-02-22] MEDS ORDERED: DONEPEZIL 10 MG TAB PO SCH (21:00)
[2023-02-23 06:04] LABS: Glucose,Whole Blood 92 mg/dL (70-110)
[2023-02-23] MEDS: INSULIN ASPART (NovoLOG) 100 UNIT/ML VIAL SQ SCH ×4 (06:07→20:35)
[2023-02-23] MEDS: PANTOPRAZOLE 40 MG TABLET PO SCH (06:09)
[2023-02-23] MEDS: CLOPIDOGREL 75 MG TAB PO SCH (08:29)
[2023-02-23] MEDS: FUROSEMIDE 10 MG/ML 4 ML VIAL IV SCH (08:29)
[2023-02-23] MEDS: ASPIRIN 81 MG PO SCH (08:29)
[2023-02-23] MEDS: OXYBUTYNIN 10 MG TAB.ER.24 PO SCH (08:29)
[2023-02-23] MEDS: ATORVASTATIN 80 MG TAB PO SCH (08:29)
[2023-02-23] MEDS: AZITHROMYCIN 500 MG in SODIUM CHLORIDE 0.9% 250 ML IVPB SCH (08:29)
[2023-02-23] MEDS: traMADol 50 MG TAB PO SCH ×2 (08:30→20:03)
[2023-02-23] MEDS: amLODIPine 5 MG TAB PO SCH (08:30)
[2023-02-23] MEDS: METOPROLOL SUCCINATE (ER) 50 MG TAB.ER.24H PO SCH (08:30)
[2023-02-23] MEDS: TAMSULOSIN 0.4 MG CAP.ER.24H PO SCH (08:30)
[2023-02-23 10:07] LABS: Calcium 7.2 mg/dL (8.4-10.2); Potassium 3.8 mmol/L (3.5-5.1)
[2023-02-23 11:40] LABS: Glucose,Whole Blood 128 mg/dL (70-110)
--- NOTE | 2023-02-23 11:43 | P.PN ---
Subjective Progress Note Date: 02/23/23 Hospital course: Patient is a very pleasant 77-year-old male with a past medical history of coronary artery disease status post CABG and bioprosthetic aortic valve replacement, hypertension, hyperlipidemia, insulin-dependent diabetes mellitus, GERD, BPH, history of subdural hematoma with memory impairment/dementia, and peripheral arterial disease with chronic wounds. He presented to the emergency department on 02/21/23 with a chief complaint of shortness of breath. Per documentation on chart patient was experiencing progressively worsening shortness of breath over the past couple weeks and was found to have low oxygen levels upon ambulation and sent to the emergency department for evaluation. Patient underwent full evaluation in the emergency department. CBC, coags, and CMP completed showing no significant abnormalities with the exception of slightl y elevated total bili of 2.1. Troponin was elevated at 0.0169 and pro-BMP was 6070. EKG was completed showing atrial flutter 3-1 conduction with a controlled ventricular rate of [address] head completed and reviewed negative for acute intercranial process revealing a remote injury to the bruna as seen on previous MRI completed 10/11/11. Patient was admitted under our services with consultation to cardiology and neurology. Echocardiogram was completed revealing preserved EF of 50-55% with severe aortic stenosis. Troponins were trended resulting in 0.166, 0.169, 0.136, 0.231, and 0.461. Physical exam: Patient seen and fully evaluated at bedside this morning. Patient was sitting up in the chair just completed eating breakfast. Patient alert to person and place only very poor historian. However patient did deny having any complaints at this time including headache, lightheadedness, dizziness, chest pain, palpitations, or experiencing any numbness/tingling/weakness in his extremities. Patient does report cough and some shortness of breath. Patient was on 4 L O2 via nasal cannula this morning. Vital signs reviewed and stable. General: Nontoxic, no distress and appears stated age. Derm: Skin warm and dry, normal coloration for ethnicity. Head: Atraumatic, normocephalic and symmetric. Eyes: EOMs intact, no lid lag, and anicteric sclera Mouth: no lip lesions, mucus membranes moist Cardiovascular: regular rate and rhythm with normal S1S2, systolic murmur, positive posterior tibial pulses bilaterally, and cap refill < 2 seconds. Lungs: Respirations even, regular, and unlabored. Lungs diminished, no rhonchi, no rales, no wheezing, and no accessory muscle usage. Abdominal: soft, nontender to palpation, no guarding, no appreciable organomegaly Ext: ROM intact. No gross muscle atrophy, 1+ pitting bilateral lower extremity edema, no contractures Neuro: Speech clear, face symmetrical and CN II-XII grossly intact with no noted focal neuro deficits Psych: Alert and oriented to person and place only, confused to time and situation. Assessment and Plan of Care: NSTEMI New onset paroxysmal atrial flutter Acute on chronic diastolic heart failure with a preserved EF of 50-55% Coronary artery disease status post CABG 4 Hypertension Hyperlipidemia -Cardiology following, cardiology FUR BLOWING MACHINE OPERATOR discontinued heparin and starting patient on Eliquis 5 mg twice daily. -Echocardiogram report reviewed showing preserved EF of 50-55% with severe aort ic stenosis. -Patient to continue cardiac medication regimen with amlodipine, atorvastatin, Plavix, lisinopril, and metoprolol. -Continue Lasix 40 mg IVP daily in order placed for strict I's and O's. Pyrexia, suspect underlying pneumonia with reports of productive cough and shortness of breath -Initial chest x-ray positive for CHF, order placed for repeat chest x-ray tomorrow morning for further evaluation. -Continue oxygen supplementation as needed and monitor Pulse-oximetry closely to maintain SpO2 equal to or greater than 92% on room air. Patient currently 91% on 4 L. -Albuterol nebulizer treatments scheduled for times daily as well as as needed for SOB and/or wheezing -Pro-calcitonin elevated at 0.54. -Urinalysis negative for infection. -Influenza A, influenza B, RSV, and Covid PCR are all negative. -Blood cultures showing no growth to date -Patient to continue with IV antibiotics azithromycin and Rocephin. History of traumatic subdural hematoma -CT head negative for acute intercranial process revealing a remote injury to the bruna as seen on previous MRI completed 10/11/11. -Patient was evaluated by neurology, reviewed documentation in the chart neurology clearing patient to start anticoagulation for treatment of paroxysmal atrial flutter. Insulin-dependent diabetes mellitus -Hemoglobin A1c completed on 11/29/22 resulted at 9.6%. -Blood glucose levels over the past 24 hours has ranged from 92-280 . -Patient to continue with long-acting Levemir 56 units daily with lunch in addition to NovoLog sliding scale to maintain tight glycemic control. CODE STATUS: Full code DVT prophylaxis: Doris Discussed with: Patient, RN, and cardiology FUR BLOWING MACHINE OPERATOR Anticipated discharge date: Clinical course to determine Discharge place: SNF Patient was seen independently by Nurse Pracitioner. This document was prepared using [employer] dictation software. Please allow for errors in certified forklift operator, while rare they do occur. I reviewed the documentation as provided by the SUSAN above, who is the original author of this note. I agree with the documented assessment and plan, with the following changes: none Objective - Vital Signs Vital signs: Vital Signs Temp 98.7 F 02/23/23 04:01 Pulse 84 02/23/23 08:00 Resp 16 02/23/23 08:00 BP 135/70 02/23/23 08:00 Pulse Ox 95 02/23/23 08:39 FiO2 Intake & Output 02/22/23 02/23/23 02/23/23 18:59 06:59 18:59 Intake Total 368 91.167 10 Output Total 225 Balance 368 -133.833 10 Weight 98.6 kg Intake: IV 10 20 10 Invasive Line 1 10 20 10 Intake, IV Titration 71.167 Amount Heparin Sod,Pork in 0.45% 71.167 NaCl 25,000 unit In 0.45 % NaCl 1 250ml.bag @ 10. 225 UNITS/KG/HR 10 mls/hr IV .Q24H [facility] Rx#: [id number] Oral 358 Output: Urine 225 Other: Voiding Method Toilet Toilet Toilet Bedside Commode Bedside Commode Bedside Commode Urinal Urinal Urinal # Voids 1 - Labs CBC & Chem 7: 02/22/23 17:20 02/23/23 08:49 Labs: Abnormal Lab Results - Last 24 Hours (Table) 02/22/23 02/22/23 02/22/23 Range/Units 11:51 16:35 17:20 Lymphocytes # 0.5 L (1.0-4.8) k/uL APTT (22.0-30.0) sec Sodium (137-145) mmol/L BUN (9-20) mg/dL Creatinine (0.66-1.25) mg/dL Glucose (74-99) mg/dL POC Glucose (mg/dL) 191 H (70-110) mg/dL Calcium (8.4-10.2) mg/dL Troponin I 0.461 H* (0.000-0.034) ng/mL Total Protein (6.3-8.2) g/dL Albumin (3.5-5.0) g/dL 02/22/23 02/22/23 02/23/23 Range/Units 20:04 23:30 08:49 Lymphocytes # (1.0-4.8) k/uL APTT 108.9 H* (22.0-30.0) sec Sodium 136 L (137-145) mmol/L BUN 34 H (9-20) mg/dL Creatinine 1.57 H (0.66-1.25) mg/dL Glucose 110 H (74-99) mg/dL POC Glucose (mg/dL) 280 H (70-110) mg/dL Calcium 7.2 L (8.4-10.2) mg/dL Troponin I (0.000-0.034) ng/mL Total Protein 6.0 L (6.3-8.2) g/dL Albumin 3.0 L (3.5-5.0) g/dL 02/23/23 02/23/23 Range/Units 08:49 11:39 Lymphocytes # (1.0-4.8) k/uL APTT 65.5 H (22.0-30.0) sec Sodium (137-145) mmol/L BUN (9-20) mg/dL Creatinine (0.66-1.25) mg/dL Glucose (74-99) mg/dL POC Glucose (mg/dL) 128 H (70-110) mg/dL Calcium (8.4-10.2) mg/dL Troponin I (0.000-0.034) ng/mL Total Protein (6.3-8.2) g/dL Albumin (3.5-5.0) g/dL Microbiology - Last 24 Hours (Table) 02/22/23 04:25 Blood Culture - Preliminary Blood No Growth after 24 hours 02/22/23 04:37 Blood Culture - Preliminary Blood No Growth after 24 hours
--- NOTE | 2023-02-23 11:58 | P.PN ---
Subjective Progress Note Date: 02/23/23 HISTORY OF PRESENT ILLNESS: This is a 77-year-old male with a past medical history significant for coronary artery disease with previous CABG, valvular heart disease, aortic stenosis and regurgitation, lower extremity PAD with prior angioplasty, hypertension, hyperlipidemia, diabetes, congestive heart failure, and subdural hematoma. Patient follows in the office with Dr. Hodges. We have been asked to see the patient in consultation for congestive heart failure. Patient examined at the bedside. Patient states he has been feeling unwell for the past few days. He reports progressive shortness of breath. He also reports a cough with mild sputum production. He denies any chest pain or pressure. He denies having a fever at home. He states he has not been around anyone that has been sick to his knowledge. He reports compliance with his medications at home. He reports he has been following a low-sodium diet. Patient was found to be febrile this morning with a temperature of 101.7. * EKG reveals sinus mechanism with no signs of acute ischemia * Chest xray low lung volumes. Cardiomegaly and mild pulmonary vascular congestion. * Laboratory data: WBC 6.3. Hemoglobin 13.8. Platelet count 167. Sodium 135. Potassium 3.8. BUN 24. Creatinine 1.21. Troponin 0.166. 0.169. 0.136. 0.231. ProBNP 6070. * Current home cardiac medications include Plavix 75 mg daily, metoprolol succinate 50 mg daily, Lipitor 80 mg daily, amlodipine 5 mg daily, lisinopril 2.5 mg daily, Lasix 40 mg daily * Echocardiogram completed revealing ejection fraction 50-55%, severe aortic stenosis * Patient underwent 4 vessel CABG in February 2015 Addendum entered and electronically signed by Suzanne Bryson NP-C 02/22/23 13:54: Abnormal troponins, ACS ruled out. No further troponins to be drawn Addendum entered and electronically signed by Suzanne Bryson NP-C 02/22/23 11:03: Patient with new onset typical aflutter this morning. Confirmed by EKG. Rates are controlled. Will consult neurology for recommendations regarding anticoagulation as patient has a history of a subdural hematoma. 02/23/2023 Patient examined this morning at the bedside. Patient denies chest pain or pressure. He currently denies SOB. He continues to have lower extremity edema. He remains on IV lasix. Creatinine increased today to 1.57. Telemetry reveals sinus mechanism. He has been cleared by neurology to start anticoagulation. PHYSICAL EXAM: VITAL SIGNS: Reviewed. GENERAL: Well-developed in no acute distress. HEENT: Head is normocephalic. Pupils are equal, round. Sclerae anicteric. Mucous membranes of the mouth are moist. Neck supple. No JVD or thyromegaly LUNGS: Respirations even and unlabored. Lungs coarse to auscultation bilaterally. HEART: Regular rate and rhythm. S1 and S2 heard. Systolic murmur noted ABDOMEN: Soft. Nondistended. Nontender. EXTREMITIES: Normal range of motion. No clubbing or cyanosis. Peripheral pulses intact. 1+ bilateral lower extremity edema NEUROLOGIC: Awake and alert. Oriented x 3. ASSESSMENT: Generalized weakness and malaise Febrile illness, etiology unclear Acute on chronic heart failure with preserved ejection fraction Coronary artery disease with previous four-vessel CABG, 2014 Peripheral arterial disease with previous angioplasty History of subdural hematoma, 2021 Hypertension Hyperlipidemia Diabetes New-onset paroxysmal typical atrial flutter, currently maintaining sinus mechanism PLAN: Continue current cardiac medications Decrease Lasix to daily dosing secondary to rising creatinine Daily weights, accurate I&O, and monitoring of kidney function Discontinue IV Heparin. Begin Eliquis 5mg BID. Case management consulted for insurance coverage. Discontinue aspirin. Okay to continue Plavix. Further recommendations pending patient's course Nurse practitioner note has been reviewed by physician. Signing provider agrees with the documented findings, assessment, and plan of care. Objective - Vital Signs Vital signs: Vital Signs Temp 98.7 F 02/23/23 04:01 Pulse 84 02/23/23 08:00 Resp 16 02/23/23 08:00 BP 135/70 02/23/23 08:00 Pulse Ox 95 02/23/23 08:39 FiO2 Intake & Output 02/22/23 02/23/23 02/23/23 18:59 06:59 18:59 Intake Total 368 91.167 10 Output Total 225 Balance 368 -133.833 10 Weight 98.6 kg Intake: IV 10 20 10 Invasive Line 1 10 20 10 Intake, IV Titration 71.167 Amount Heparin Sod,Pork in 0.45% 71.167 NaCl 25,000 unit In 0.45 % NaCl 1 250ml.bag @ 10. 225 UNITS/KG/HR 10 mls/hr IV .Q24H [facility] Rx#: [id number] Oral 358 Output: Urine 225 Other: Voiding Method Toilet Toilet Toilet Bedside Commode Bedside Commode Bedside Commode Urinal Urinal Urinal # Voids 1 - Labs CBC & Chem 7: 02/22/23 17:20 02/23/23 08:49 Labs: Abnormal Lab Results - Last 24 Hours (Table) 02/22/23 02/22/23 02/22/23 Range/Units 11:39 11:51 16:35 Lymphocytes # (1.0-4.8) k/uL APTT (22.0-30.0) sec Sodium (137-145) mmol/L BUN (9-20) mg/dL Creatinine (0.66-1.25) mg/dL Glucose (74-99) mg/dL POC Glucose (mg/dL) 163 H 191 H (70-110) mg/dL Calcium (8.4-10.2) mg/dL Troponin I 0.461 H* (0.000-0.034) ng/mL Total Protein (6.3-8.2) g/dL Albumin (3.5-5.0) g/dL 02/22/23 02/22/23 02/22/23 Range/Units 17:20 20:04 23:30 Lymphocytes # 0.5 L (1.0-4.8) k/uL APTT 108.9 H* (22.0-30.0) sec Sodium (137-145) mmol/L BUN (9-20) mg/dL Creatinine (0.66-1.25) mg/dL Glucose (74-99) mg/dL POC Glucose (mg/dL) 280 H (70-110) mg/dL Calcium (8.4-10.2) mg/dL Troponin I (0.000-0.034) ng/mL Total Protein (6.3-8.2) g/dL Albumin (3.5-5.0) g/dL 02/23/23 02/23/23 Range/Units 08:49 08:49 Lymphocytes # (1.0-4.8) k/uL APTT 65.5 H (22.0-30.0) sec Sodium 136 L (137-145) mmol/L BUN 34 H (9-20) mg/dL Creatinine 1.57 H (0.66-1.25) mg/dL Glucose 110 H (74-99) mg/dL POC Glucose (mg/dL) (70-110) mg/dL Calcium 7.2 L (8.4-10.2) mg/dL Troponin I (0.000-0.034) ng/mL Total Protein 6.0 L (6.3-8.2) g/dL Albumin 3.0 L (3.5-5.0) g/dL Microbiology - Last 24 Hours (Table) 02/22/23 04:25 Blood Culture - Preliminary Blood No Growth after 24 hours 02/22/23 04:37 Blood Culture - Preliminary Blood No Growth after 24 hours
[2023-02-23] MEDS: INSULIN DETEMIR (LEVEMIR) 100 UNIT/ML SYR SQ SCH (12:25)
[2023-02-23] MEDS: APIXABAN 5 MG TAB PO SCH ×2 (12:25→20:04)
[2023-02-23] MEDS ORDERED: ALBUTEROL NEBULIZED 2.5 MG/3 ML INHALATION PRN (14:12)
[2023-02-23] MEDS ORDERED: ALBUTEROL NEBULIZED (CONC) 5 MG, SODIUM CHLORIDE 0.9% NEBULIZ 3 ML INHALATION SCH ×2 (16:00)
[2023-02-23] MEDS: ALBUTEROL NEBULIZED 2.5 MG/3 ML INHALATION SCH ×2 (16:08→22:10)
[2023-02-23 16:50] LABS: Glucose,Whole Blood 156 mg/dL (70-110)
[2023-02-23] MEDS: ACETAMINOPHEN TAB 325 MG TAB PO PRN (20:04)
[2023-02-23 20:11] LABS: Glucose,Whole Blood 242 mg/dL (70-110)
[2023-02-23 22:58] LABS: Chol/HDL Ratio 3.45 Ratio; LDL Cholesterol,Calculated 54.2 mg/dL (0.0-131.0)
[2023-02-24 05:34] LABS: Glucose,Whole Blood 102 mg/dL (70-110)
[2023-02-24] MEDS: INSULIN ASPART (NovoLOG) 100 UNIT/ML VIAL SQ SCH ×4 (05:40→21:46)
[2023-02-24] MEDS: PANTOPRAZOLE 40 MG TABLET PO SCH (05:58)
[2023-02-24] MEDS: ATORVASTATIN 80 MG TAB PO SCH (08:21)
[2023-02-24] MEDS: TAMSULOSIN 0.4 MG CAP.ER.24H PO SCH (08:21)
[2023-02-24] MEDS: APIXABAN 5 MG TAB PO SCH ×2 (08:21→21:45)
[2023-02-24] MEDS: traMADol 50 MG TAB PO SCH ×2 (08:21→21:45)
[2023-02-24] MEDS: amLODIPine 5 MG TAB PO SCH (08:21)
[2023-02-24] MEDS: METOPROLOL SUCCINATE (ER) 50 MG TAB.ER.24H PO SCH (08:22)
[2023-02-24] MEDS: OXYBUTYNIN 10 MG TAB.ER.24 PO SCH (08:22)
[2023-02-24] MEDS: CLOPIDOGREL 75 MG TAB PO SCH (08:22)
[2023-02-24] MEDS: ALBUTEROL NEBULIZED 2.5 MG/3 ML INHALATION SCH ×4 (08:42→20:52)
[2023-02-24] MEDS ORDERED: FUROSEMIDE 10 MG/ML 4 ML VIAL IV SCH (09:00)
--- NOTE | 2023-02-24 09:27 | XR ---
EXAMINATION TYPE: XR chest 1V portable DATE OF EXAM: 02/24/2023 HISTORY: Shortness of breath. COMPARISON: 02/21/23 TECHNIQUE: Single view of the chest is submitted. FINDINGS: Demonstrated are scattered senescent parenchymal change. Worsening left lower lobe infiltrate. Correlate for pneumonia. The heart is stable. Hilar and mediastinal structures are within normal limits. Degenerative changes are seen of the dorsal spine. IMPRESSION: 1. Worsening left lower lobe infiltrate. Correlate for pneumonia.
--- NOTE | 2023-02-24 09:30 | P.PN ---
Subjective Progress Note Date: 02/23/23 Patient was seen for a follow-up. Patient is sitting comfortably in the recliner. Patient says that he is feeling sleepy. Denies any headache. Denies any nausea or vomiting anymore. No visual symptoms. He admits to having "little" chest pain. Denies any focal symptoms. Telemetry monitoring showing sinus rhythm in the 70s. Objective - Vital Signs Vital signs: Vital Signs Temp 98.7 F 02/23/23 04:01 Pulse 86 02/23/23 16:20 Resp 16 02/23/23 16:00 BP 110/65 02/23/23 16:00 Pulse Ox 89 L 02/23/23 16:11 FiO2 Intake & Output 02/22/23 02/23/23 02/23/23 18:59 06:59 18:59 Intake Total 368 91.167 20 Output Total 225 250 Balance 368 -133.833 -230 Weight 98.6 kg Intake: IV 10 20 20 Invasive Line 1 10 20 20 Intake, IV Titration 71.167 Amount Heparin Sod,Pork in 0.45% 71.167 NaCl 25,000 unit In 0.45 % NaCl 1 250ml.bag @ 10. 225 UNITS/KG/HR 10 mls/hr IV .Q24H [facility] Rx#: [id number] Oral 358 Output: Urine 225 250 Other: Voiding Method Toilet Toilet Toilet Bedside Commode Bedside Commode Bedside Commode Urinal Urinal Urinal # Voids 1 - Exam Patient is alert and awake, speech and language functions are normal. Muscle strength is normal. Cranial nerves normal. - Labs CBC & Chem 7: 02/22/23 17:20 02/23/23 08:49 Labs: Abnormal Lab Results - Last 24 Hours (Table) 02/22/23 02/22/23 02/22/23 Range/Units 17:20 20:04 23:30 Lymphocytes # 0.5 L (1.0-4.8) k/uL APTT 108.9 H* (22.0-30.0) sec Sodium (137-145) mmol/L BUN (9-20) mg/dL Creatinine (0.66-1.25) mg/dL Glucose (74-99) mg/dL POC Glucose (mg/dL) 280 H (70-110) mg/dL Calcium (8.4-10.2) mg/dL Total Protein (6.3-8.2) g/dL Albumin (3.5-5.0) g/dL 02/23/23 02/23/23 02/23/23 Range/Units 08:49 08:49 11:39 Lymphocytes # (1.0-4.8) k/uL APTT 65.5 H (22.0-30.0) sec Sodium 136 L (137-145) mmol/L BUN 34 H (9-20) mg/dL Creatinine 1.57 H (0.66-1.25) mg/dL Glucose 110 H (74-99) mg/dL POC Glucose (mg/dL) 128 H (70-110) mg/dL Calcium 7.2 L (8.4-10.2) mg/dL Total Protein 6.0 L (6.3-8.2) g/dL Albumin 3.0 L (3.5-5.0) g/dL 02/23/23 Range/Units 16:48 Lymphocytes # (1.0-4.8) k/uL APTT (22.0-30.0) sec Sodium (137-145) mmol/L BUN (9-20) mg/dL Creatinine (0.66-1.25) mg/dL Glucose (74-99) mg/dL POC Glucose (mg/dL) 156 H (70-110) mg/dL Calcium (8.4-10.2) mg/dL Total Protein (6.3-8.2) g/dL Albumin (3.5-5.0) g/dL Microbiology - Last 24 Hours (Table) 02/22/23 04:25 Blood Culture - Preliminary Blood No Growth after 24 hours 02/22/23 04:37 Blood Culture - Preliminary Blood No Growth after 24 hours Assessment and Plan Assessment: * Altered mental status probably related to mild metabolic encephalopathy, improved. * History of traumatic subdural hematoma right side October 2022, treated conservatively * New onset atrial flutter, started on anticoagulation. * Nausea, vomiting, unclear cause, now resolved * CT had revealed impacted cerumen bilateral eardrums. 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 * Aortic stenosis, severe per echo report. 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 Patient started on heparin. * I would suggest avoiding antiplatelet medication with it, unless necessary from cardiac standpoint. * I spoke to patient's daughter on the phone yesterday. She mentioned that patient has not had any falls since he came out of the hospital in October 2022. He underwent course of physical therapy and occupational therapy and has been doing well. Patient's daughter was informed that being on blood thinners, patient is higher risk for intracranial bleed from falls. She understands the risks. * CT head showed no evidence of subdural hematoma. 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 Patient has evidence of cerumen impaction in bilateral eardrums, right more than left. Patient may need Debrox eardrops, and may need flushing of the cerumen. * 2-D echo revealed EF 50-55%, severe concentric LVH, severe aortic stenosis. Cardiology following. * Hemoglobin A1c 9.6 on 11/29/2022. Suggest optimize control of diabetes to target A1c < 7.0. * Fasting lipid panel with cholesterol 105, LDL 54, HDL 30 and triglycerides 10 2. Continue Lipitor 80 mg daily. * Neurologically clear.
[2023-02-24] MEDS: AZITHROMYCIN 500 MG in SODIUM CHLORIDE 0.9% 250 ML IVPB SCH (10:10)
--- NOTE | 2023-02-24 11:08 | P.PN ---
Subjective Progress Note Date: 02/24/23 HISTORY OF PRESENT ILLNESS: This is a 77-year-old male with a past medical history significant for coronary artery disease with previous CABG, valvular heart disease, aortic stenosis and regurgitation, lower extremity PAD with prior angioplasty, hypertension, hyperlipidemia, diabetes, congestive heart failure, and subdural hematoma. Patient follows in the office with Dr. Hodges. We have been asked to see the patient in consultation for congestive heart failure. Patient examined at the bedside. Patient states he has been feeling unwell for the past few days. He reports progressive shortness of breath. He also reports a cough with mild sputum production. He denies any chest pain or pressure. He denies having a fever at home. He states he has not been around anyone that has been sick to his knowledge. He reports compliance with his medications at home. He reports he has been following a low-sodium diet. Patient was found to be febrile this morning with a temperature of 101.7. * EKG reveals sinus mechanism with no signs of acute ischemia * Chest xray low lung volumes. Cardiomegaly and mild pulmonary vascular congestion. * Laboratory data: WBC 6.3. Hemoglobin 13.8. Platelet count 167. Sodium 135. Potassium 3.8. BUN 24. Creatinine 1.21. Troponin 0.166. 0.169. 0.136. 0.231. ProBNP 6070. * Current home cardiac medications include Plavix 75 mg daily, metoprolol succinate 50 mg daily, Lipitor 80 mg daily, amlodipine 5 mg daily, lisinopril 2.5 mg daily, Lasix 40 mg daily * Echocardiogram completed revealing ejection fraction 50-55%, severe aortic stenosis * Patient underwent 4 vessel CABG in February 2015 Addendum entered and electronically signed by Suzanne Bryson NP-C 02/22/23 13:54: Abnormal troponins, ACS ruled out. No further troponins to be drawn Addendum entered and electronically signed by Suzanne Bryson NP-C 02/22/23 11:03: Patient with new onset typical aflutter this morning. Confirmed by EKG. Rates are controlled. Will consult neurology for recommendations regarding anticoagulation as patient has a history of a subdural hematoma. 02/23/2023 Patient examined this morning at the bedside. Patient denies chest pain or pressure. He currently denies SOB. He continues to have lower extremity edema. He remains on IV lasix. Creatinine increased today to 1.57. Telemetry reveals sinus mechanism. He has been cleared by neurology to start anticoagulation. 02/24/2023 Patient examined this morning at the bedside. Patient denies chest pain or pressure. Denies SOB. Vital signs are stable. He remains on IV lasix. Dosage was decreased yesterday to increasing creatinine. Labs from this morning are pending. Chest x-ray this morning reveals worsening left lower lobe infiltrate. Correlate for pneumonia. PHYSICAL EXAM: VITAL SIGNS: Reviewed. GENERAL: Well-developed in no acute distress. HEENT: Head is normocephalic. Pupils are equal, round. Sclerae anicteric. Mucous membranes of the mouth are moist. Neck supple. No JVD or thyromegaly LUNGS: Respirations even and unlabored. Lungs coarse to auscultation bilaterally. HEART: Regular rate and rhythm. S1 and S2 heard. Systolic murmur noted ABDOMEN: Soft. Nondistended. Nontender. EXTREMITIES: Normal range of motion. No clubbing or cyanosis. Peripheral pulses intact. 1+ bilateral lower extremity edema NEUROLOGIC: Awake and alert. Oriented x 3. ASSESSMENT: Generalized weakness and malaise Febrile illness, etiology unclear Acute on chronic heart failure with preserved ejection fraction Coronary artery disease with previous four-vessel CABG, 2014 Peripheral arterial disease with previous angioplasty History of subdural hematoma, 2021 Hypertension Hyperlipidemia Diabetes New-onset paroxysmal typical atrial flutter, currently maintaining sinus mechanism PLAN: Continue current cardiac medications Discontinue IV lasix. Resume oral lasix. Await kidney function from this AM. Daily weights, accurate I&O, and monitoring of kidney function Continue anticoagulation with Eliquis. Aspirin discontinued yesterday. Okay to continue Plavix from cardiology standpoint. Further recommendations pending patient's course Nurse practitioner note has been reviewed by physician. Signing provider agrees with the documented findings, assessment, and plan of care. Objective - Vital Signs Vital signs: Vital Signs Temp 98.1 F 02/24/23 07:22 Pulse 74 02/24/23 08:57 Resp 20 02/24/23 08:16 BP 110/56 02/24/23 07:22 Pulse Ox 93 L 02/24/23 08:44 FiO2 Intake & Output 02/23/23 02/24/23 02/24/23 18:59 06:59 18:59 Intake Total 20 220 180 Output Total 250 150 Balance -230 70 180 Weight 98.1 kg Intake: IV 20 20 Invasive Line 1 20 20 Oral 200 180 Output: Urine 250 150 Other: Voiding Method Toilet Toilet Toilet Bedside Commode Bedside Commode Bedside Commode Urinal Urinal Urinal # Voids 1 1 # Bowel Movements 1 - Labs CBC & Chem 7: 02/22/23 17:20 02/23/23 08:49 Labs: Abnormal Lab Results - Last 24 Hours (Table) 02/23/23 02/23/23 02/23/23 Range/Units 08:49 11:39 16:48 POC Glucose (mg/dL) 128 H 156 H (70-110) mg/dL HDL Cholesterol 30.40 L (40.00-60.00) mg/dL 02/23/23 Range/Units 20:09 POC Glucose (mg/dL) 242 H (70-110) mg/dL HDL Cholesterol (40.00-60.00) mg/dL Microbiology - Last 24 Hours (Table) 02/22/23 04:25 Blood Culture - Preliminary Blood No Growth after 48 hours 02/22/23 04:37 Blood Culture - Preliminary Blood No Growth after 48 hours
[2023-02-24 11:34] LABS: HGB 12.2 gm/dL (13.0-17.5); MCH 28.3 pg (25.0-35.0); MCV 85.8 fL (80.0-100.0); Mean Platelet Volume 7.2; Platelet Count 170 k/uL (150-450); RBC 4.31 m/uL (4.30-5.90); RDW 14.5 % (11.5-15.5); WBC 6.2 k/uL (3.8-10.6)
[2023-02-24 11:46] LABS: Glucose,Whole Blood 176 mg/dL (70-110)
[2023-02-24] MEDS: INSULIN DETEMIR (LEVEMIR) 100 UNIT/ML SYR SQ SCH (11:49)
[2023-02-24 12:10] LABS: Calcium 7.7 mg/dL (8.4-10.2); Magnesium 2.2 mg/dL (1.6-2.3); Potassium 3.9 mmol/L (3.5-5.1)
[2023-02-24] MEDS ORDERED: FLUTICASONE 50MCG/SPRAY NASAL 16GM EA NOSTRIL PRN (15:39)
--- NOTE | 2023-02-24 15:54 | P.PN ---
Subjective Progress Note Date: 02/24/23 Hospital course: Patient is a very pleasant 77-year-old male with a past medical history of coronary artery disease status post CABG and bioprosthetic aortic valve replacement, hypertension, hyperlipidemia, insulin-dependent diabetes mellitus, GERD, BPH, history of subdural hematoma with memory impairment/dementia, and peripheral arterial disease with chronic wounds. He presented to the emergency department on 02/21/23 with a chief complaint of shortness of breath. Per documentation on chart patient was experiencing progressively worsening shortness of breath over the past couple weeks and was found to have low oxygen levels upon ambulation and sent to the emergency department for evaluation. Patient underwent full evaluation in the emergency department. CBC, coags, and CMP completed showing no significant abnormalities with the exception of slightl y elevated total bili of 2.1. Troponin was elevated at 0.0169 and pro-BMP was 6070. EKG was completed showing atrial flutter 3-1 conduction with a controlled ventricular rate of [address] head completed and reviewed negative for acute intercranial process revealing a remote injury to the bruna as seen on previous MRI completed 10/11/11. Patient was admitted under our services with consultation to cardiology and neurology. Echocardiogram was completed revealing preserved EF of 50-55% with severe aortic stenosis. Troponins were trended resulting in 0.166, 0.169, 0.136, 0.231, and 0.461. Physical exam: Patient seen and fully evaluated at bedside this morning. Patient was sitting up in the chair. Vital signs reviewed and stable. General: Nontoxic, no distress and appears stated age. Derm: Skin warm and dry, normal coloration for ethnicity. Head: Atraumatic, normocephalic and symmetric. Eyes: EOMs intact, no lid lag, and anicteric sclera Mouth: no lip lesions, mucus membranes moist Cardiovascular: regular rate and rhythm with normal S1S2, systolic murmur, positive posterior tibial pulses bilaterally, and cap refill < 2 seconds. Lungs: Respirations even, regular, and unlabored. Lungs diminished, no rhonchi, no rales, no wheezing, and no accessory muscle usage. Abdominal: soft, nontender to palpation, no guarding, no appreciable organomegaly Ext: ROM intact. No gross muscle atrophy, 1+ pitting bilateral lower extremity edema, no contractures Neuro: Speech clear, face symmetrical and CN II-XII grossly intact with no noted focal neuro deficits Psych: Alert and oriented to person and place only, confused to time and situat ion. Assessment and Plan of Care: NSTEMI New onset paroxysmal atrial flutter Acute on chronic diastolic heart failure with a preserved EF of 50-55% Coronary artery disease status post CABG 4 Hypertension Hyperlipidemia -Cardiology following, Discussed with cardiology 3D TECHNOLOGIST, IV Lasix to be discontinued and patient to resume oral diuretic with Lasix 40 mg PO daily -Echocardiogram report reviewed showing preserved EF of 50-55% with severe aortic stenosis. -Patient to continue cardiac medication regimen with amlodipine, atorvastatin, Plavix, lisinopril, and metoprolol. -Continue Eliquis 5 mg BID -Morning labs reviewed. CBC showing normocytic anemia with hemoglobin stable at 12.2 with no need for intervention at this time. BMP revealing slightly elevated renal function with BUN 38, creatinine 1.45, and GFR 47 anticipated this will improve now that patient is no longer's receiving IV diuresis.We will continue to monitor with repeat morning labs. LLL pneumonia -Initial chest x-ray positive for CHF, order placed for repeat chest x-ray which was completed on 02/24/23 and upon review of radiology report x-ray is showing worsening left lower lobe infiltrate consistent with LLL pneumonia. -Continue oxygen supplementation as needed and monitor Pulse-oximetry closely to maintain SpO2 equal to or greater than 92% on room air. Patient currently 93% on 3 L. -Albuterol nebulizer treatments scheduled for times daily as well as as needed for SOB and/or wheezing -Pro-calcitonin elevated at 0.54, order placed for repeat procalcitonin to monitor for improvement as pt is still getting elevated temps with a high of 102.1 over the past 24 hours. -Influenza A, influenza B, RSV, and Covid PCR are all negative. -Blood cultures showing no growth to date -Patient to continue with date 3 of IV antibiotics [id number] mg every 24 hours and Rocephin 2 g every 24 hours History of traumatic subdural hematoma -CT head negative for acute intercranial process revealing a remote injury to the bruna as seen on previous MRI completed 10/11/11. -Patient was evaluated by neurology, reviewed documentation in the chart neurology clearing patient to start anticoagulation for treatment of paroxysmal atrial flutter. Insulin-dependent diabetes mellitus -Hemoglobin A1c completed on 11/29/22 resulted at 9.6%. -Blood glucose levels over the past 24 hours has ranged from 92-242. . -Patient to continue with long-acting Levemir 56 units daily with lunch in addition to NovoLog sliding scale to maintain tight glycemic control. CODE STATUS: Full code DVT prophylaxis: Doris Discussed with: Patient, RN, and cardiology 3D TECHNOLOGIST Anticipated discharge date: Clinical course to determine Discharge place: SNF Patient was seen independently by Nurse Pracitioner. This document was prepared using [employer] dictation software. Please allow for errors in explosive ordnance specialist, while rare they do occur. I reviewed the documentation as provided by the SUSAN above, who is the original author of this note. I agree with the documented assessment and plan, with the following changes: none Objective - Vital Signs Vital signs: Vital Signs Temp 98.2 F 02/24/23 12:00 Pulse 76 02/24/23 13:28 Resp 20 02/24/23 12:00 BP 120/81 02/24/23 12:00 Pulse Ox 96 02/24/23 12:00 FiO2 Intake & Output 02/23/23 02/24/23 02/24/23 18:59 06:59 18:59 Intake Total 20 220 420 Output Total 250 150 Balance -230 70 420 Weight 98.1 kg Intake: IV 20 20 Invasive Line 1 20 20 Oral 200 420 Output: Urine 250 150 Other: Voiding Method Toilet Toilet Toilet Bedside Commode Bedside Commode Bedside Commode Urinal Urinal Urinal # Voids 1 1 # Bowel Movements 1 - Labs CBC & Chem 7: 02/25/23 07:54 02/25/23 07:54 Labs: Abnormal Lab Results - Last 24 Hours (Table) 02/23/23 02/23/23 02/23/23 Range/Units 08:49 16:48 20:09 Hgb (13.0-17.5) gm/dL Hct (39.0-53.0) % Sodium (137-145) mmol/L BUN (9-20) mg/dL Creatinine (0.66-1.25) mg/dL Glucose (74-99) mg/dL POC Glucose (mg/dL) 156 H 242 H (70-110) mg/dL Calcium (8.4-10.2) mg/dL HDL Cholesterol 30.40 L (40.00-60.00) mg/dL 02/24/23 02/24/23 02/24/23 Range/Units 10:06 10:06 11:41 Hgb 12.2 L (13.0-17.5) gm/dL Hct 37.0 L (39.0-53.0) % Sodium 135 L (137-145) mmol/L BUN 38 H (9-20) mg/dL Creatinine 1.45 H (0.66-1.25) mg/dL Glucose 125 H (74-99) mg/dL POC Glucose (mg/dL) 176 H (70-110) mg/dL Calcium 7.7 L (8.4-10.2) mg/dL HDL Cholesterol (40.00-60.00) mg/dL Microbiology - Last 24 Hours (Table) 02/22/23 04:25 Blood Culture - Preliminary Blood No Growth after 48 hours 02/22/23 04:37 Blood Culture - Preliminary Blood No Growth after 48 hours
[2023-02-24 16:26] LABS: Glucose,Whole Blood 257 mg/dL (70-110)
[2023-02-24 19:53] LABS: Glucose,Whole Blood 268 mg/dL (70-110)
[2023-02-25] MEDS: BENZONATATE 100 MG CAP PO PRN (00:25)
[2023-02-25 05:51] LABS: Glucose,Whole Blood 84 mg/dL (70-110)
[2023-02-25] MEDS: INSULIN ASPART (NovoLOG) 100 UNIT/ML VIAL SQ SCH ×4 (05:54→20:46)
[2023-02-25] MEDS: PANTOPRAZOLE 40 MG TABLET PO SCH (05:56)
[2023-02-25] MEDS: traMADol 50 MG TAB PO SCH ×2 (07:58→20:45)
[2023-02-25] MEDS: CLOPIDOGREL 75 MG TAB PO SCH (07:58)
[2023-02-25] MEDS: APIXABAN 5 MG TAB PO SCH ×2 (07:59→20:46)
[2023-02-25] MEDS: ATORVASTATIN 80 MG TAB PO SCH (07:59)
[2023-02-25] MEDS: METOPROLOL SUCCINATE (ER) 50 MG TAB.ER.24H PO SCH (07:59)
[2023-02-25] MEDS: OXYBUTYNIN 10 MG TAB.ER.24 PO SCH (07:59)
[2023-02-25] MEDS: amLODIPine 5 MG TAB PO SCH (07:59)
[2023-02-25] MEDS: TAMSULOSIN 0.4 MG CAP.ER.24H PO SCH (07:59)
[2023-02-25] MEDS: FUROSEMIDE 40 MG TAB PO SCH (07:59)
[2023-02-25 08:18] LABS: HCT 36.1 % (39.0-53.0); HGB 12.3 gm/dL (13.0-17.5); MCH 28.4 pg (25.0-35.0); MCV 83.5 fL (80.0-100.0); Mean Platelet Volume 7.3; Platelet Count 183 k/uL (150-450); Poikilocytosis Slight; RBC 4.32 m/uL (4.30-5.90); RDW 14.4 % (11.5-15.5); WBC 5.7 k/uL (3.8-10.6)
[2023-02-25 08:41] LABS: Potassium 4.1 mmol/L (3.5-5.1)
[2023-02-25 08:42] LABS: Calcium 8.2 mg/dL (8.4-10.2); Magnesium 2.4 mg/dL (1.6-2.3)
[2023-02-25] MEDS: ALBUTEROL NEBULIZED 2.5 MG/3 ML INHALATION SCH ×4 (09:56→20:27)
[2023-02-25 11:39] LABS: Glucose,Whole Blood 291 mg/dL (70-110)
[2023-02-25] MEDS: INSULIN DETEMIR (LEVEMIR) 100 UNIT/ML SYR SQ SCH (11:50)
--- NOTE | 2023-02-25 12:47 | P.PN ---
Subjective Progress Note Date: 02/25/23 HISTORY OF PRESENT ILLNESS: This is a 77-year-old male with a past medical history significant for coronary artery disease with previous CABG, valvular heart disease, aortic stenosis and regurgitation, lower extremity PAD with prior angioplasty, hypertension, hyperlipidemia, diabetes, congestive heart failure, and subdural hematoma. Patient follows in the office with Dr. Hodges. We have been asked to see the patient in consultation for congestive heart failure. Patient examined at the bedside. Patient states he has been feeling unwell for the past few days. He reports progressive shortness of breath. He also reports a cough with mild sputum production. He denies any chest pain or pressure. He denies having a fever at home. He states he has not been around anyone that has been sick to his knowledge. He reports compliance with his medications at home. He reports he has been following a low-sodium diet. Patient was found to be febrile this morning with a temperature of 101.7. * EKG reveals sinus mechanism with no signs of acute ischemia * Chest xray low lung volumes. Cardiomegaly and mild pulmonary vascular congestion. * Laboratory data: WBC 6.3. Hemoglobin 13.8. Platelet count 167. Sodium 135. Potassium 3.8. BUN 24. Creatinine 1.21. Troponin 0.166. 0.169. 0.136. 0.231. ProBNP 6070. * Current home cardiac medications include Plavix 75 mg daily, metoprolol succinate 50 mg daily, Lipitor 80 mg daily, amlodipine 5 mg daily, lisinopril 2.5 mg daily, Lasix 40 mg daily * Echocardiogram completed revealing ejection fraction 50-55%, severe aortic stenosis * Patient underwent 4 vessel CABG in February 2015 Addendum entered and electronically signed by Suzanne Bryson NP-C 02/22/23 13:54: Abnormal troponins, ACS ruled out. No further troponins to be drawn Addendum entered and electronically signed by Suzanne Bryson NP-C 02/22/23 11:03: Patient with new onset typical aflutter this morning. Confirmed by EKG. Rates are controlled. Will consult neurology for recommendations regarding anticoagulation as patient has a history of a subdural hematoma. 02/23/2023 Patient examined this morning at the bedside. Patient denies chest pain or pressure. He currently denies SOB. He continues to have lower extremity edema. He remains on IV lasix. Creatinine increased today to 1.57. Telemetry reveals sinus mechanism. He has been cleared by neurology to start anticoagulation. 02/24/2023 Patient examined this morning at the bedside. Patient denies chest pain or pressure. Denies SOB. Vital signs are stable. He remains on IV lasix. Dosage was decreased yesterday to increasing creatinine. Labs from this morning are pending. Chest x-ray this morning reveals worsening left lower lobe infiltrate. Correlate for pneumonia. 02/25/2023 Patient examined this morning. Patient is sitting up in the chair. He denies chest pain or pressure. He denies shortness of breath. He does report an occasional cough with sputum production. Telemetry reveals sinus mechanism. Vital signs are stable. PHYSICAL EXAM: VITAL SIGNS: Reviewed. GENERAL: Well-developed in no acute distress. HEENT: Head is normocephalic. Pupils are equal, round. Sclerae anicteric. Mucous membranes of the mouth are moist. Neck supple. No JVD or thyromegaly LUNGS: Respirations even and unlabored. Lungs coarse to auscultation bilaterally. HEART: Regular rate and rhythm. S1 and S2 heard. Systolic murmur noted ABDOMEN: Soft. Nondistended. Nontender. EXTREMITIES: Normal range of motion. No clubbing or cyanosis. Peripheral pulses intact. 1+ bilateral lower extremity edema NEUROLOGIC: Awake and alert. Oriented x 3. ASSESSMENT: Generalized weakness and malaise Febrile illness Left lower lobe pneumonia Acute on chronic heart failure with preserved ejection fraction Coronary artery disease with previous four-vessel CABG, 2014 Peripheral arterial disease with previous angioplasty History of subdural hematoma, 2021 Hypertension Hyperlipidemia Diabetes New-onset paroxysmal typical atrial flutter, currently maintaining sinus mechanism PLAN: Continue current cardiac medications Treatment of pneumonia per internal medicine Patient transitioned to oral lasix yesterday Daily weights, accurate I&O, and monitoring of kidney function Continue anticoagulation with Eliquis. Aspirin has been DC. Okay to continue Plavix from cardiology standpoint. Further recommendations pending patient's course Nurse practitioner note has been reviewed by physician. Signing provider agrees with the documented findings, assessment, and plan of care. Objective - Vital Signs Vital signs: Vital Signs Temp 98.4 F 02/25/23 12:00 Pulse 76 02/25/23 12:00 Resp 18 02/25/23 12:00 BP 165/73 04/07/23 12:00 Pulse Ox 98 02/25/23 12:23 FiO2 Intake & Output 02/24/23 02/25/23 02/25/23 18:59 06:59 18:59 Intake Total 600 120 180 Output Total 500 Balance 600 -380 180 Weight 98.2 kg Intake: Oral 600 120 180 Output: Urine 500 Other: Voiding Method Toilet Toilet Toilet Bedside Commode Urinal Urinal Urinal # Voids 1 1 # Bowel Movements 1 - Labs CBC & Chem 7: 02/25/23 07:54 02/25/23 07:54 Labs: Abnormal Lab Results - Last 24 Hours (Table) 02/24/23 02/24/23 02/24/23 Range/Units 10:06 16:25 19:47 Hgb (13.0-17.5) gm/dL Hct (39.0-53.0) % Sodium (137-145) mmol/L BUN (9-20) mg/dL Creatinine (0.66-1.25) mg/dL POC Glucose (mg/dL) 257 H 268 H (70-110) mg/dL Calcium (8.4-10.2) mg/dL Magnesium (1.6-2.3) mg/dL Procalcitonin 0.27 H (0.02-0.09) ng/mL 02/25/23 02/25/23 02/25/23 Range/Units 07:54 07:54 11:38 Hgb 12.3 L (13.0-17.5) gm/dL Hct 36.1 L (39.0-53.0) % Sodium 136 L (137-145) mmol/L BUN 34 H (9-20) mg/dL Creatinine 1.36 H (0.66-1.25) mg/dL POC Glucose (mg/dL) 291 H (70-110) mg/dL Calcium 8.2 L (8.4-10.2) mg/dL Magnesium 2.4 H (1.6-2.3) mg/dL Procalcitonin (0.02-0.09) ng/mL Microbiology - Last 24 Hours (Table) 02/22/23 04:25 Blood Culture - Preliminary Blood No Growth after 72 hours 02/22/23 04:37 Blood Culture - Preliminary Blood No Growth after 72 hours
--- NOTE | 2023-02-25 14:31 | P.PN ---
Subjective Progress Note Date: 02/25/23 Hospital course: Patient is a very pleasant 77-year-old male with a past medical history of coronary artery disease status post CABG and bioprosthetic aortic valve replacement, hypertension, hyperlipidemia, insulin-dependent diabetes mellitus, GERD, BPH, history of subdural hematoma with memory impairment/dementia, and peripheral arterial disease with chronic wounds. He presented to the emergency department on 02/21/23 with a chief complaint of shortness of breath. Per documentation on chart patient was experiencing progressively worsening shortness of breath over the past couple weeks and was found to have low oxygen levels upon ambulation and sent to the emergency department for evaluation. Patient underwent full evaluation in the emergency department. CBC, coags, and CMP completed showing no significant abnormalities with the exception of slightl y elevated total bili of 2.1. Troponin was elevated at 0.0169 and pro-BMP was 6070. EKG was completed showing atrial flutter 3-1 conduction with a controlled ventricular rate of [address] head completed and reviewed negative for acute intercranial process revealing a remote injury to the bruna as seen on previous MRI completed 10/11/11. Patient was admitted under our services with consultation to cardiology and neurology. Echocardiogram was completed revealing preserved EF of 50-55% with severe aortic stenosis. Troponins were trended resulting in 0.166, 0.169, 0.136, 0.231, and 0.461. Patient continued to run elevated temps and a repeat chest x-ray was completed on 02/24/23 secondary to concerns of pneumonia and upon review of radiology report this x-ray showed worsening left lower lobe infiltrate consistent with left lower lobe pneumonia. Physical exam: Patient seen and fully evaluated at bedside this morning. Patient was working with physical therapy and currently denying having any complaints. Patient has been successfully weaned off of oxygen and maintaining SpO2 93% on room air. Patient has also remained afebrile for greater than 36 hours. Vital signs reviewed and stable. General: Nontoxic, no distress and appears stated age. Derm: Skin warm and dry, normal coloration for ethnicity. Head: Atraumatic, normocephalic and symmetric. Eyes: EOMs intact, no lid lag, and anicteric sclera Mouth: no lip lesions, mucus membranes moist Cardiovascular: regular rate and rhythm with normal S1S2, systolic murmur, positive posterior tibial pulses bilaterally, and cap refill < 2 seconds. Lungs: Respirations even, regular, and unlabored. Lungs diminished, no rhonchi, no rales, no wheezing, and no accessory muscle usage. Abdominal: soft, nontender to palpation, no guarding, no appreciable organomegaly Ext: ROM intact. No gross muscle atrophy, 1+ pitting bilateral lower extremity edema, no contractures Neuro: Speech clear, face symmetrical and CN II-XII grossly intact with no noted focal neuro deficits Psych: Alert and oriented to person and place only, confused to time and situation. 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 -Patient to continue cardiac medication regimen with amlodipine, atorvastatin, Plavix, lisinopril, and metoprolol. -Continue Eliquis 5 mg BID -Morning labs reviewed. CBC showing normocytic anemia with hemoglobin stable at 12.3 with no need for intervention at this time. BMP revealing slightly improving renal function with BUN 34, creatinine 1.36, and GFR 51. We will continue to monitor with repeat morning labs. LLL pneumonia -Continue oxygen supplementation as needed and monitor Pulse-oximetry closely to maintain SpO2 equal to or greater than 92% on room air. Patient successfully weaned off of oxygen and is currently 93% on room air. -Albuterol nebulizer treatments scheduled for times daily as well as as needed for SOB and/or wheezing -Pro-calcitonin elevated at 0.54 and repeat pro-calcitonin showing improvement with pro-calcitonin improving to 0.27. -Influenza A, influenza B, RSV, and Covid PCR are all negative. -Blood cultures showing no growth to date -Patient completed 3 day course of azithromycin and to continue to continue with date 4 of Rocephin 2 g every 24 hours. History of traumatic subdural hematoma -CT head negative for acute intercranial process revealing a remote injury to the bruna as seen on previous MRI completed 10/11/11. -Patient was evaluated by neurology, reviewed documentation in the chart neurology clearing patient to start anticoagulation for treatment of paroxysmal atrial flutter. Insulin-dependent diabetes mellitus -Hemoglobin A1c completed on 11/29/22 resulted at 9.6%. -Blood glucose levels over the past 24 hours has ranged from 102-268 -Patient to continue with long-acting Levemir 56 units daily with lunch in addition to NovoLog sliding scale to maintain tight glycemic control. 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 Patient was seen independently by Nurse Pracitioner. This document was prepared using [employer] dictation software. Please allow for errors in gear cutter, while rare they do occur. I reviewed the documentation as provided by the SUSAN above, who is the original author of this note. I agree with the documented assessment and plan, with the following changes: none Objective - Vital Signs Vital signs: Vital Signs Temp 96.3 F L 02/25/23 07:14 Pulse 82 02/25/23 07:47 Resp 20 02/25/23 07:47 BP 140/65 02/25/23 07:14 Pulse Ox 95 02/25/23 07:14 FiO2 Intake & Output 02/24/23 02/25/23 02/25/23 18:59 06:59 18:59 Intake Total 600 120 180 Output Total 500 Balance 600 -380 180 Weight 98.2 kg Intake: Oral 600 120 180 Output: Urine 500 Other: Voiding Method Toilet Toilet Toilet Bedside Commode Urinal Urinal Urinal # Voids 1 1 # Bowel Movements 1 - Labs CBC & Chem 7: 02/25/23 07:54 02/25/23 07:54 Labs: Abnormal Lab Results - Last 24 Hours (Table) 02/24/23 02/24/23 02/24/23 Range/Units 10:06 10:06 10:06 Hgb 12.2 L (13.0-17.5) gm/dL Hct 37.0 L (39.0-53.0) % Sodium 135 L (137-145) mmol/L BUN 38 H (9-20) mg/dL Creatinine 1.45 H (0.66-1.25) mg/dL Glucose 125 H (74-99) mg/dL POC Glucose (mg/dL) (70-110) mg/dL Calcium 7.7 L (8.4-10.2) mg/dL Magnesium (1.6-2.3) mg/dL Procalcitonin 0.27 H (0.02-0.09) ng/mL 02/24/23 02/24/23 02/24/23 Range/Units 11:41 16:25 19:47 Hgb (13.0-17.5) gm/dL Hct (39.0-53.0) % Sodium (137-145) mmol/L BUN (9-20) mg/dL Creatinine (0.66-1.25) mg/dL Glucose (74-99) mg/dL POC Glucose (mg/dL) 176 H 257 H 268 H (70-110) mg/dL Calcium (8.4-10.2) mg/dL Magnesium (1.6-2.3) mg/dL Procalcitonin (0.02-0.09) ng/mL 02/25/23 02/25/23 Range/Units 07:54 07:54 Hgb 12.3 L (13.0-17.5) gm/dL Hct 36.1 L (39.0-53.0) % Sodium 136 L (137-145) mmol/L BUN 34 H (9-20) mg/dL Creatinine 1.36 H (0.66-1.25) mg/dL Glucose (74-99) mg/dL POC Glucose (mg/dL) (70-110) mg/dL Calcium 8.2 L (8.4-10.2) mg/dL Magnesium 2.4 H (1.6-2.3) mg/dL Procalcitonin (0.02-0.09) ng/mL Microbiology - Last 24 Hours (Table) 02/22/23 04:25 Blood Culture - Preliminary Blood No Growth after 72 hours 02/22/23 04:37 Blood Culture - Preliminary Blood No Growth after 72 hours
[2023-02-25 16:26] LABS: Glucose,Whole Blood 218 mg/dL (70-110)
--- NOTE | 2023-02-25 17:31 | P.PN ---
Subjective Progress Note Date: 02/25/23 Patient was seen for a follow-up. Patient is sitting comfortably in the recliner having his dinner. Patient's mentation back to normal. He is fully alert and awake. Denies any headache. Denies any nausea or vomiting anymore. No visual symptoms. Denies any chest pain. Denies any focal symptoms. Telemetry monitoring showing sinus rhythm. No arrhythmia. Objective - Vital Signs Vital signs: Vital Signs Temp 97.9 F 02/25/23 15:51 Pulse 70 02/25/23 16:25 Resp 20 02/25/23 15:51 BP 155/79 02/25/23 15:51 Pulse Ox 97 02/25/23 15:51 FiO2 Intake & Output 02/24/23 02/25/23 02/25/23 18:59 06:59 18:59 Intake Total 600 120 360 Output Total 500 Balance 600 -380 360 Weight 98.2 kg Intake: Oral 600 120 360 Output: Urine 500 Other: Voiding Method Toilet Toilet Toilet Bedside Commode Urinal Urinal Urinal # Voids 1 1 # Bowel Movements 1 - Exam Patient is alert and awake, speech and language functions are normal. Muscle strength is normal. Cranial nerves normal. Visual romeo are normal. No pronator drift. - Labs CBC & Chem 7: 02/25/23 07:54 02/25/23 07:54 Labs: Abnormal Lab Results - Last 24 Hours (Table) 02/24/23 02/24/23 02/25/23 Range/Units 10:06 19:47 07:54 Hgb 12.3 L (13.0-17.5) gm/dL Hct 36.1 L (39.0-53.0) % Sodium (137-145) mmol/L BUN (9-20) mg/dL Creatinine (0.66-1.25) mg/dL POC Glucose (mg/dL) 268 H (70-110) mg/dL Calcium (8.4-10.2) mg/dL Magnesium (1.6-2.3) mg/dL Procalcitonin 0.27 H (0.02-0.09) ng/mL 02/25/23 02/25/23 02/25/23 Range/Units 07:54 11:38 16:25 Hgb (13.0-17.5) gm/dL Hct (39.0-53.0) % Sodium 136 L (137-145) mmol/L BUN 34 H (9-20) mg/dL Creatinine 1.36 H (0.66-1.25) mg/dL POC Glucose (mg/dL) 291 H 218 H (70-110) mg/dL Calcium 8.2 L (8.4-10.2) mg/dL Magnesium 2.4 H (1.6-2.3) mg/dL Procalcitonin (0.02-0.09) ng/mL Microbiology - Last 24 Hours (Table) 02/22/23 04:25 Blood Culture - Preliminary Blood No Growth after 72 hours 02/22/23 04:37 Blood Culture - Preliminary Blood No Growth after 72 hours Assessment and Plan Assessment: * Altered mental status probably related to mild metabolic encephalopathy, completely resolved. * History of traumatic subdural hematoma right side October 2022, treated conservatively * New onset atrial flutter, started on anticoagulation. * Nausea, vomiting, unclear cause, now resolved * CT had revealed impacted cerumen bilateral eardrums. 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 * Aortic stenosis, severe per echo report. * CHF exacerbation * Diabetes, poorly controlled * Hypertension * Obesity * Dementia, mild to moderate degree Plan: * Patient's encephalopathy has resolved. * Continue Eliquis 5 mg twice a day. * I would suggest avoiding antiplatelet medication with it, unless necessary from cardiac standpoint. * I spoke to patient's daughter on the phone yesterday. She mentioned that patient has not had any falls since he came out of the hospital in October 2022. He underwent course of physical therapy and occupational therapy and has been doing well. Patient's daughter was informed that being on blood thinners, patient is higher risk for intracranial bleed from falls. She understands the risks. * CT head showed no evidence of subdural hematoma. 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 Patient has evidence of cerumen impaction in bilateral eardrums, right more than left. Patient may need Debrox eardrops, and may need flushing of the cerumen. * 2-D echo revealed EF 50-55%, severe concentric LVH, severe aortic stenosis. Cardiology following. * Hemoglobin A1c 9.6 on 11/29/2022. Suggest optimize control of diabetes to target A1c < 7.0. * Fasting lipid panel with cholesterol 105, LDL 54, HDL 30 and triglycerides 102. Continue Lipitor 80 mg daily. * Neurologically clear.
[2023-02-25 20:14] LABS: Glucose,Whole Blood 272 mg/dL (70-110)
[2023-02-26] MEDS: BENZONATATE 100 MG CAP PO PRN (01:28)
[2023-02-26 04:39] LABS: Basophils % (A) 1 %; Eosinophils # (A) 0.1 k/uL (0-0.7); Eosinophils % (A) 2 %; HCT 35.8 % (39.0-53.0); Lymphocytes # (A) 1.4 k/uL (1.0-4.8); Lymphocytes % (A) 24 %; MCH 27.8 pg (25.0-35.0); MCHC 33.6 g/dL (31.0-37.0); MCV 82.8 fL (80.0-100.0); Mean Platelet Volume 7.5; Monocytes # (A) 0.4 k/uL (0-1.0); Monocytes % (A) 6 %; Neutrophils # (A) 3.7 k/uL (1.3-7.7); Neutrophils % (A) 63 %; Platelet Count 198 k/uL (150-450); Poikilocytosis Slight; RBC 4.33 m/uL (4.30-5.90); RDW 14.4 % (11.5-15.5); WBC 5.9 k/uL (3.8-10.6)
[2023-02-26 04:57] LABS: Calcium 8.1 mg/dL (8.4-10.2); Magnesium 2.3 mg/dL (1.6-2.3); Potassium 4.6 mmol/L (3.5-5.1)
[2023-02-26 06:09] LABS: Glucose,Whole Blood 148 mg/dL (70-110)
[2023-02-26] MEDS: INSULIN ASPART (NovoLOG) 100 UNIT/ML VIAL SQ SCH ×2 (06:14→11:44)
[2023-02-26] MEDS: PANTOPRAZOLE 40 MG TABLET PO SCH (06:28)
[2023-02-26] MEDS: ALBUTEROL NEBULIZED 2.5 MG/3 ML INHALATION SCH ×2 (08:32→12:01)
[2023-02-26] MEDS: traMADol 50 MG TAB PO SCH (08:46)
[2023-02-26] MEDS: METOPROLOL SUCCINATE (ER) 50 MG TAB.ER.24H PO SCH (08:46)
[2023-02-26] MEDS: ATORVASTATIN 80 MG TAB PO SCH (08:46)
[2023-02-26] MEDS: TAMSULOSIN 0.4 MG CAP.ER.24H PO SCH (08:46)
[2023-02-26] MEDS: FUROSEMIDE 40 MG TAB PO SCH (08:46)
[2023-02-26] MEDS: APIXABAN 5 MG TAB PO SCH (08:46)
[2023-02-26] MEDS: CLOPIDOGREL 75 MG TAB PO SCH (08:46)
[2023-02-26] MEDS: amLODIPine 5 MG TAB PO SCH (08:46)
--- NOTE | 2023-02-26 09:31 | P.DS ---
Providers Date of admission: 02/21/23 18:24 Expected date of discharge: 02/26/23 Attending physician: Fan Carrillo MD Consults: 02/21/23 18:23 Consult Physician Routine Consulting Provider: [facility] Consult Reason/Comments: chf, elevated troponin Do you want consulting provider notified?: Yes 02/22/23 11:02 Consult Physician Routine Consulting Provider: Denis Youssef Consult Reason/Comments: eval for anticoagulation, hx of subdural bleed, new aflutter Do you want consulting provider notified?: Yes Primary care physician: [facility] Course: Discharge Diagnosis: Acute NSTEMI, Type II due to Atrial Flutter. Patient was found to be in new onset atrial flutter with elevated troponins. He was initially started on heparin infusion and then transitioned to oral anticoagulant with Eliquis 5 mg BID. Patient underwent IV diuresis 3 days and resumed oral diuretic with Lasix 40 mg PO daily on 02/24/23. Patient is medically stable and being discharged to intermediate facility for rehab at this time. Patient to continue cardiac medication regimen with amlodipine, atorvastatin, Plavix, lisinopril, metoprolol, and Eliquis 5 mg BID. Patient to follow-up with PCP and cardiology as directed. New onset paroxysmal atrial flutter Acute on chronic diastolic heart failure with a preserved EF of 50-55% Coronary artery disease status post CABG 4 Hypertension Hyperlipidemia LLL pneumonia. Patient received 4 day course of IV antibiotics and discharged with an additional 3 days of doxycycline 100 mg twice daily for treatment of community-acquired pneumonia. Patient has remained afebrile for greater for 72 hours. History of traumatic subdural hematoma -CT head negative for acute intercranial process revealing a remote injury to the bruna as seen on previous MRI completed 10/11/11. -Patient was evaluated by neurology, reviewed documentation in the chart neurology clearing patient to start anticoagulation for treatment of paroxysmal atrial flutter. Insulin-dependent diabetes mellitus Hospital Course: Patient is a very pleasant 77-year-old male with a past medical history of coronary artery disease status post CABG and bioprosthetic aortic valve replacement, hypertension, hyperlipidemia, insulin-dependent diabetes mellitus, GERD, BPH, history of subdural hematoma with memory impairment/dementia, and peripheral arterial disease with chronic wounds. He presented to the emergency department on 02/21/23 with a chief complaint of shortness of breath. Per documentation on chart patient was experiencing progressively worsening shortness of breath over the past couple weeks and was found to have low oxygen levels upon ambulation and sent to the emergency department for evaluation. Patient underwent full evaluation in the emergency department. CBC, coags, and CMP completed showing no significant abnormalities with the exception of slightly elevated total bili of 2.1. Troponin was elevated at 0.0169 and pro- BMP was 6070. EKG was completed showing atrial flutter 3-1 conduction with a controlled ventricular rate of [address] head completed and reviewed negative for acute intercranial process revealing a remote injury to the bruna as seen on previous MRI completed 10/11/11. Patient was admitted under our services with consultation to cardiology and neurology. Echocardiogram was completed revealing preserved EF of 50-55% with severe aortic stenosis. Troponins were trended resulting in 0.166, 0.169, 0.136, 0.231, and 0.461. Patient continued to run elevated temps and a repeat chest x-ray was completed on 02/24/23 secondary to concerns of pneumonia and upon review of radiology report this x-ray showed worsening left lower lobe infiltrate consistent with left lower lobe pneumonia. Patient received 4 day course of IV antibiotics and discharged with an additional 3 days of doxycycline 100 mg twice daily for treatment of community- acquired pneumonia. Patient has remained afebrile for greater for 72 hours. Medically, patient is stable at this time and arrangements have been made with patient's daughter for patient to be discharged to [facility] facility for rehab. Patient to continue cardiac medication regimen with amlodipine, atorvastatin, Plavix, lisinopril, metoprolol, and Eliquis 5 mg BID in addition to completion of 3 additional days of antibiotics to total a 7 day treatment course for community-acquired pneumonia. Patient is free from any complaints at this time. He appears to be doing well and medically stable for discharge to extended care facility. Physical exam: Vital signs reviewed and stable. General: Nontoxic, no distress and appears stated age. Derm: Skin warm and dry, normal coloration for ethnicity. Head: Atraumatic, normocephalic and symmetric. Eyes: EOMs intact, no lid lag, and anicteric sclera Mouth: no lip lesions, mucus membranes moist Cardiovascular: regular rate and rhythm with normal S1S2, systolic murmur, positive posterior tibial pulses bilaterally, and cap refill < 2 seconds. Lungs: Respirations even, regular, and unlabored. Lungs diminished, no rhonchi, no rales, no wheezing, and no accessory muscle usage. Abdominal: soft, nontender to palpation, no guarding, no appreciable organomegaly Ext: ROM intact. No gross muscle atrophy, 1+ pitting bilateral lower extremity edema, no contractures Neuro: Speech clear, face symmetrical and CN II-XII grossly intact with no noted focal neuro deficits Psych: Alert and oriented to person and place only, confused to time and situation. A total of 33 minutes of time were spent preparing this complex discharge summary. Pt was discharged on 02/26/23 at 9:34 AM Patient was seen independently by Nurse Practitioner. This document was prepared using [employer] dictation software. Please allow for errors in electronic drafter while rare they do occur. Bacilio Perrin NP rendered care for this patient independently, reviewed the findings and plan as documented in the note above. I did not physically speak with or examine the patient on this date. Patient Condition at Discharge: Stable Plan - Discharge Summary Discharge Rx Participant: No New Discharge Prescriptions: New Apixaban [Eliquis] 5 mg PO BID #60 tab Fluticasone Nasal Menan [Flonase Nasal Menan] 2 spray EA NOSTRIL DAILY PRN ml PRN Reason: Nasal Congestion Doxycycline [Vibramycin] 100 mg PO BID 3 Days #6 capsule traMADol HCl [Ultram] 50 mg PO BID #6 tab Albuterol Nebulized [Ventolin Nebulized] 2.5 mg INHALATION RT-QID PRN ml PRN Reason: Shortness Of Breath Or Wheezing Continue Omeprazole [PriLOSEC] 20 mg PO DAILY Donepezil [Aricept] 10 mg PO HS #30 Metoprolol Succinate (ER) [Toprol XL] 50 mg PO DAILY Tamsulosin HCl [Flomax] 0.4 mg PO DAILY Furosemide [Lasix] 40 mg PO DAILY Insulin Aspart [NovoLOG Flexpen] See Protocol SQ TID-W/MEALS Clopidogrel [Plavix] 75 mg PO DAILY traMADol HCL 50 mg PO BID Atorvastatin [Lipitor] 80 mg PO DAILY #30 tab Insulin Glargine,Hum.rec.anlog [Lantus Solostar Pen] 56 unit SQ W/LUNCH amLODIPine [Norvasc] 5 mg PO DAILY Oxybutynin Chloride [Oxybutynin Chloride ER] 10 mg PO DAILY Potassium Chloride ER [K-Dur 10] 10 meq PO DAILY Cholecalciferol [Vitamin D3 (25 Mcg = 1000 Iu)] 50 mcg PO DAILY Amitriptyline HCl [Elavil] 25 mg PO HS lisinopriL [Zestril] 2.5 mg PO DAILY Ondansetron Odt [Zofran ODT] 8 mg PO Q12HR PRN PRN Reason: Nausea And Vomiting Gabapentin [Neurontin] 300 mg PO BID 3 Days #6 cap Discontinued Aspirin EC [Ecotrin Low Dose] 81 mg PO DAILY Discharge Medication List Omeprazole [PriLOSEC] 20 mg PO DAILY 02/23/15 [History] Donepezil [Aricept] 10 mg PO HS #30 03/13/15 [Rx] Metoprolol Succinate (ER) [Toprol XL] 50 mg PO DAILY 03/07/17 [History] Tamsulosin HCl [Flomax] 0.4 mg PO DAILY 03/07/17 [History] Furosemide [Lasix] 40 mg PO DAILY 11/08/19 [History] Insulin Aspart [NovoLOG Flexpen] See Protocol SQ TID-W/MEALS 11/08/19 [History] Clopidogrel [Plavix] 75 mg PO DAILY 01/21/20 [History] Amitriptyline HCl [Elavil] 25 mg PO HS 03/16/22 [History] Cholecalciferol [Vitamin D3 (25 Mcg = 1000 Iu)] 50 mcg PO DAILY 03/16/22 [History] Oxybutynin Chloride [Oxybutynin Chloride ER] 10 mg PO DAILY 03/16/22 [History] Potassium Chloride ER [K-Dur 10] 10 meq PO DAILY 03/16/22 [History] traMADol HCL 50 mg PO BID 03/16/22 [History] Atorvastatin [Lipitor] 80 mg PO DAILY #30 tab 03/21/22 [Rx] Insulin Glargine,Hum.rec.anlog [Lantus Solostar Pen] 56 unit SQ W/LUNCH 04/05/22 [History] Ondansetron Odt [Zofran ODT] 8 mg PO Q12HR PRN 02/21/23 [History] amLODIPine [Norvasc] 5 mg PO DAILY 02/21/23 [History] lisinopriL [Zestril] 2.5 mg PO DAILY 02/21/23 [History] Apixaban [Eliquis] 5 mg PO BID #60 tab 02/23/23 [Rx] Albuterol Nebulized [Ventolin Nebulized] 2.5 mg INHALATION RT-QID PRN ml 02/26/23 [Rx] Doxycycline [Vibramycin] 100 mg PO BID 3 Days #6 capsule 02/26/23 [Rx] Fluticasone Nasal Menan [Flonase Nasal Menan] 2 spray EA NOSTRIL DAILY PRN ml 02/26/23 [Rx] Gabapentin [Neurontin] 300 mg PO BID 3 Days #6 cap 02/26/23 [Rx] traMADol HCl [Ultram] 50 mg PO BID #6 tab 02/26/23 [Rx] Follow up Appointment(s)/Referral(s): Fernando Hodges MD [STAFF PHYSICIAN] - 1 Week Valente Sharma MD [Primary Care Provider] - 1-2 days [facility] Visiting Nurse, [NON-STAFF] - Patient Instructions/Handouts: Heart Failure (DC), Atrial Flutter (DC), Community Acquired Pneumonia (DC) Activity/Diet/Wound Care/Special Instructions: Activity: As tolerated. Take breaks as needed. Diet: Heart healthy and carb consistent diet. Avoid salts, or foods with hidden salts such as canned or boxed foods and frozen dinners. Extra salt makes your heart work harder and traps the fluid in your body for longer. Special Instructions: Weigh yourself every morning after you urinate. If you gain 3 pounds overnight or more than 5 pounds in one week, call your primary physician and director oracle database for guidance on your medications or they may want to see you in their office. Keep a daily log of your weights and be sure to bring with you at follow up visits with your PCP and director oracle database. Take all of your medications as directed, especially your water pills. NEVER skip a dose. And remember to keep all of your doctor's appointments and follow- up as needed. Elevate your legs when you are not up moving around to help with circulation and prevent swelling. Compression stockings are also a great way to improve lower extremity circulation and prevent/improve lower extremity edema. Call your primary care provider and director [employer] database if you notice any extra swelling in your legs, ankles, feet or abdomen, if you have a new dry cough, if your shortness of breath worsens with activity or at rest, or if you feel more fatigued. Thank you for allowing us to participate in your care, it was truly a pleasure having you for our patient!!! Discharge Disposition: TRANSFER TO SNF/ECF
--- NOTE | 2023-02-26 10:08 | P.PN ---
Subjective HISTORY OF PRESENT ILLNESS: This is a 77-year-old male with a past medical history significant for coronary artery disease with previous CABG, valvular heart disease, aortic stenosis and regurgitation, lower extremity PAD with prior angioplasty, hypertension, hyperlipidemia, diabetes, congestive heart failure, and subdural hematoma. Patient follows in the office with Dr. Hodges. We have been asked to see the patient in consultation for congestive heart failure. Patient examined at the bedside. Patient states he has been feeling unwell for the past few days. He reports progressive shortness of breath. He also reports a cough with mild sputum production. He denies any chest pain or pressure. He denies having a fever at home. He states he has not been around anyone that has been sick to his knowledge. He reports compliance with his medications at home. He reports he has been following a low-sodium diet. Patient was found to be febrile this morning with a temperature of 101.7. * EKG reveals sinus mechanism with no signs of acute ischemia * Chest xray low lung volumes. Cardiomegaly and mild pulmonary vascular congestion. * Laboratory data: WBC 6.3. Hemoglobin 13.8. Platelet count 167. Sodium 135. Potassium 3.8. BUN 24. Creatinine 1.21. Troponin 0.166. 0.169. 0.136. 0.231. ProBNP 6070. * Current home cardiac medications include Plavix 75 mg daily, metoprolol succinate 50 mg daily, Lipitor 80 mg daily, amlodipine 5 mg daily, lisinopril 2.5 mg daily, Lasix 40 mg daily * Echocardiogram completed revealing ejection fraction 50-55%, severe aortic stenosis * Patient underwent 4 vessel CABG in February 2015 Addendum entered and electronically signed by Suzanne Bryson NP-C 02/22/23 13:54: Abnormal troponins, ACS ruled out. No further troponins to be drawn Addendum entered and electronically signed by Suzanne Bryson NP-C 02/22/23 11:03: Patient with new onset typical aflutter this morning. Confirmed by EKG. Rates are controlled. Will consult neurology for recommendations regarding anticoagulation as patient has a history of a subdural hematoma. 02/23/2023 Patient examined this morning at the bedside. Patient denies chest pain or pressure. He currently denies SOB. He continues to have lower extremity edema. He remains on IV lasix. Creatinine increased today to 1.57. Telemetry reveals sinus mechanism. He has been cleared by neurology to start anticoagulation. 02/24/2023 Patient examined this morning at the bedside. Patient denies chest pain or pressure. Denies SOB. Vital signs are stable. He remains on IV lasix. Dosage was decreased yesterday to increasing creatinine. Labs from this morning are pending. Chest x-ray this morning reveals worsening left lower lobe infiltrate. Correlate for pneumonia. 02/25/2023 Patient examined this morning. Patient is sitting up in the chair. He denies chest pain or pressure. He denies shortness of breath. He does report an occasional cough with sputum production. Telemetry reveals sinus mechanism. Vital signs are stable. 02/26/2023 Patient examined this morning. He is sitting on edge of bed. Patient denies chest pain or pressure. He denies shortness of breath. He remains on oral Lasix. Telemetry reveals sinus mechanism. He is on oral anticoagulation. PHYSICAL EXAM: VITAL SIGNS: Reviewed. GENERAL: Well-developed in no acute distress. HEENT: Head is normocephalic. Pupils are equal, round. Sclerae anicteric. Mucous membranes of the mouth are moist. Neck supple. No JVD or thyromegaly LUNGS: Respirations even and unlabored. Lungs coarse to auscultation bilaterally. HEART: Regular rate and rhythm. S1 and S2 heard. Systolic murmur noted ABDOMEN: Soft. Nondistended. Nontender. EXTREMITIES: Normal range of motion. No clubbing or cyanosis. Peripheral pulses intact. 1+ bilateral lower extremity edema NEUROLOGIC: Awake and alert. Oriented x 3. ASSESSMENT: Generalized weakness and malaise Febrile illness Left lower lobe pneumonia Acute on chronic heart failure with preserved ejection fraction Coronary artery disease with previous four-vessel CABG, 2014 Peripheral arterial disease with previous angioplasty History of subdural hematoma, 2021 Hypertension Hyperlipidemia Diabetes New-onset paroxysmal typical atrial flutter, currently maintaining sinus mechanism PLAN: Continue current cardiac medications Patient is stable for discharge from a cardiac standpoint F Patient to follow-up post discharge with Dr. Lopez Nurse practitioner note has been reviewed by physician. Signing provider agrees with the documented findings, assessment, and plan of care. Objective - Vital Signs Vital signs: Vital Signs Temp 97.5 F L 02/26/23 08:00 Pulse 78 02/26/23 08:44 Resp 18 02/26/23 08:00 BP 134/74 02/26/23 08:00 Pulse Ox 97 02/26/23 08:37 FiO2 Intake & Output 02/25/23 02/26/23 02/26/23 18:59 06:59 18:59 Intake Total 540 540 658 Output Total 620 150 Balance 540 -80 508 Weight 93 kg Intake: Oral 540 540 658 Output: Urine 620 150 Other: Voiding Method Toilet Toilet Toilet Urinal Urinal Urinal # Voids 1 - Labs CBC & Chem 7: 02/26/23 04:15 02/26/23 04:15 Labs: Abnormal Lab Results - Last 24 Hours (Table) 02/25/23 02/25/23 02/25/23 Range/Units 11:38 16:25 20:13 Hgb (13.0-17.5) gm/dL Hct (39.0-53.0) % BUN (9-20) mg/dL Glucose (74-99) mg/dL POC Glucose (mg/dL) 291 H 218 H 272 H (70-110) mg/dL Calcium (8.4-10.2) mg/dL 02/26/23 02/26/23 02/26/23 Range/Units 04:15 04:15 06:08 Hgb 12.0 L (13.0-17.5) gm/dL Hct 35.8 L (39.0-53.0) % BUN 31 H (9-20) mg/dL Glucose 136 H (74-99) mg/dL POC Glucose (mg/dL) 148 H (70-110) mg/dL Calcium 8.1 L (8.4-10.2) mg/dL Microbiology - Last 24 Hours (Table) 02/22/23 04:37 Blood Culture - Preliminary Blood No Growth after 96 hours 02/22/23 04:25 Blood Culture - Preliminary Blood No Growth after 96 hours
[2023-02-26] MEDS: OXYBUTYNIN 10 MG TAB.ER.24 PO SCH (10:29)
[2023-02-26 11:38] LABS: Glucose,Whole Blood 350 mg/dL (70-110)
[2023-02-26] MEDS: INSULIN DETEMIR (LEVEMIR) 100 UNIT/ML SYR SQ SCH (11:44)
[2023-02-26 12:25] VITALS: BP 140/75; PULSE 85; RESP 17; TEMP 97.8
== END 2023-02-26 13:31 | DRG 280 ==
LOC: EC 15:52 → 3SCARD 18:24
PROVIDERS: ADMIT Student in an Organized Health Care Education/Training Program; ATTEND Student in an Organized Health Care Education/Training Program
DX: I11.0 Hypertensive heart disease with heart failure (principal); G93.41 Metabolic encephalopathy; I21.A1 Myocardial infarction type 2; J96.01 Acute respiratory failure with hypoxia; I50.33 Acute on chronic diastolic (congestive) heart failure; J18.9 Pneumonia, unspecified organism; I48.3 Typical atrial flutter; F03.A3 Unspecified dementia, mild, with mood disturbance; F03.A4 Unspecified dementia, mild, with anxiety; E11.42 Type 2 diabetes mellitus with diabetic polyneuropathy; I48.0 Paroxysmal atrial fibrillation; E11.51 Type 2 diabetes mellitus with diabetic peripheral angiopathy without gangrene; D64.9 Anemia, unspecified; Z79.4 Long term (current) use of insulin; Z20.822 Contact with and (suspected) exposure to COVID-19; I35.2 Nonrheumatic aortic (valve) stenosis with insufficiency; E78.5 Hyperlipidemia, unspecified; F32.A Depression, unspecified; F41.9 Anxiety disorder, unspecified; N40.1 Benign prostatic hyperplasia with lower urinary tract symptoms; N39.498 Other specified urinary incontinence; E66.9 Obesity, unspecified; Z68.30 Body mass index [BMI] 30.0-30.9, adult; I25.10 Atherosclerotic heart disease of native coronary artery without angina pectoris; I44.0 Atrioventricular block, first degree; K21.9 Gastro-esophageal reflux disease without esophagitis; H61.23 Impacted cerumen, bilateral; G89.29 Other chronic pain; M54.9 Dorsalgia, unspecified; R29.6 Repeated falls; M19.90 Unspecified osteoarthritis, unspecified site; Z79.82 Long term (current) use of aspirin; Z79.02 Long term (current) use of antithrombotics/antiplatelets; Z79.899 Other long term (current) drug therapy; Z86.16 Personal history of COVID-19; Z95.3 Presence of xenogenic heart valve; Z95.1 Presence of aortocoronary bypass graft; Z87.820 Personal history of traumatic brain injury; Z91.81 History of falling; Z82.49 Family history of ischemic heart disease and other diseases of the circulatory system
CPT/HCPCS: 36415; 70450; 71045; 71046; 80048; 80053; 80061; 81001; 83735; 83880; 84145; 84484; 85025; 85027; 85610; 85730; 87040; 87502; 87634; 87635; 87636; 93005; 93306; 94640; 94760; 96374; 99285

== ENCOUNTER 2023-04-16 19:05 | Inpatient (IN) | payer MEDICARE, BC ==
--- NOTE | 2023-04-16 19:24 | ED ---
General Adult HPI - General Chief complaint: Shortness of Breath Stated complaint: [place]IL[place] Time Seen by Provider: 04/16/23 19:20 Source: patient, EMS Mode of arrival: EMS Limitations: no limitations - History of Present Illness Initial comments: Patient presents to the ED by ambulance for evaluation. Patient is complaining of having dyspnea since earlier today. Patient also admits to having a cough and runny nose today. Patient denies having any pain, fever or chills, headache, focal neuro deficit, chest pain or pressure, hemoptysis, palpitations, dizziness, abdominal pain, nausea/vomiting/diarrhea, bloody or melanotic stool, dysuria or urinary symptoms, decreased urine output, leg or calf pain, or any other symptoms or complaints. - Related Data Home Medications Medication Instructions Recorded Confirmed Omeprazole [PriLOSEC] 20 mg PO DAILY 02/23/15 02/21/23 Metoprolol Succinate (ER) [Toprol 50 mg PO DAILY 03/07/17 02/21/23 XL] Tamsulosin HCl [Flomax] 0.4 mg PO DAILY 03/07/17 02/21/23 Furosemide [Lasix] 40 mg PO DAILY 11/08/19 02/21/23 Insulin Aspart [NovoLOG Flexpen] See Protocol SQ TID-W/MEALS 11/08/19 02/21/23 Clopidogrel [Plavix] 75 mg PO DAILY 01/21/20 02/21/23 Amitriptyline HCl [Elavil] 25 mg PO HS 03/16/22 02/21/23 Cholecalciferol [Vitamin D3 (25 50 mcg PO DAILY 03/16/22 02/21/23 Mcg = 1000 Iu)] Oxybutynin Chloride [oxyBUTYnin 10 mg PO DAILY 03/16/22 02/21/23 chloride ER] Potassium Chloride ER [K-Dur 10] 10 meq PO DAILY 03/16/22 02/21/23 traMADol HCL 50 mg PO BID 03/16/22 02/21/23 Insulin Glargine,Hum.rec.anlog 56 unit SQ W/LUNCH 04/05/22 02/21/23 [Lantus Solostar Pen] Ondansetron Odt [Zofran ODT] 8 mg PO Q12HR PRN 02/21/23 02/21/23 amLODIPine [Norvasc] 5 mg PO DAILY 02/21/23 02/21/23 lisinopriL [Zestril] 2.5 mg PO DAILY 02/21/23 02/21/23 Previous Rx's Medication Instructions Recorded Donepezil [Aricept] 10 mg PO HS #30 03/13/15 Atorvastatin [Lipitor] 80 mg PO DAILY #30 tab 03/21/22 Apixaban [Eliquis] 5 mg PO BID #60 tab 02/23/23 Albuterol Nebulized [Ventolin 2.5 mg INHALATION RT-QID PRN ml 02/26/23 Nebulized] Doxycycline [Vibramycin] 100 mg PO BID 3 Days #6 capsule 02/26/23 Fluticasone Nasal [place] [Flonase 2 spray EA NOSTRIL DAILY PRN ml 02/26/23 Nasal [place]] Gabapentin [Neurontin] 300 mg PO BID 3 Days #6 cap 02/26/23 traMADol HCl [Ultram] 50 mg PO BID #6 tab 02/26/23 Allergies Allergy/AdvReac Type Severity Reaction Status Date / Time No Known Allergies Allergy Verified 02/21/23 19:16 Review of Systems ROS Statement: Those systems with pertinent positive or pertinent negative responses have been documented in the HPI. ROS Other: All systems not noted in ROS Statement are negative. Past Medical History Past Medical History: Coronary Artery Disease (CAD), Heart Failure, Dementia, Diabetes Mellitus, GERD/Reflux, Hyperlipidemia, Hypertension, Memory Impairment, Osteoarthritis (OA), Pneumonia, Prostate Disorder, Skin Disorder, Vascular Disorder Additional Past Medical History / Comment(s): Recent falls since diagnosed with covid and diarrhea/incontinence, IDDM type II, neuropathy in bilateral hands/feet, "beginnings" of dementia, systolic CHF, PAD, current wound L foot, BPH, chronic back pain, bronchitis, sinus issues. History of Any Multi-Drug Resistant Organisms: None Reported Past Surgical History: Coronary Bypass/CABG, Orthopedic Surgery Additional Past Surgical History / Comment(s): 2014 CABG 4 vessel/bioprosthetic aortic valve, angiograms, aortagram with bilateral run-offs, PTBA/atherectomy L leg, L foot surgery for crush injury, colonoscopy, bilateral cataract removals. Past Anesthesia/Blood Transfusion Reactions: No Reported Reaction Past Psychological History: Anxiety, Depression Smoking Status: Never smoker Past Alcohol Use History: Heavy Past Drug Use History: None Reported - Past Family History Father History Unknown: Yes Family Medical History: Congestive Heart Failure (CHF) Mother History Unknown: Yes Family Medical History: Congestive Heart Failure (CHF) General Exam Limitations: no limitations General appearance: alert, in no apparent distress Head exam: Present: normocephalic Eye exam: Present: normal appearance ENT exam: Present: mucous membranes moist Neck exam: Present: other (Trachea is in midline) Respiratory exam: Present: rales, other (Mild respiratory distress). Absent: wheezes, stridor Cardiovascular Exam: Present: regular rate, normal rhythm, normal heart sounds, other (Normal radial pulses bilaterally) GI/Abdominal exam: Present: soft. Absent: distended, tenderness, guarding Extremities exam: Present: other (Negative Homans sign bilaterally; 2+ bilateral lower extremity pitting edema). Absent: tenderness, calf tenderness Neurological exam: Present: alert, oriented X3 Psychiatric exam: Present: normal affect, normal mood Skin exam: Present: warm, dry, intact, normal color Course Vital Signs 04/16/23 04/16/23 04/16/23 19:16 19:18 20:18 Temperature 97.0 F L Pulse Rate 71 70 Respiratory 18 22 Rate Blood Pressure 158/73 154/66 O2 Sat by Pulse 94 L 97 93 L Oximetry - Reevaluation(s) Reevaluation #1: 04/16/23 21:15 Case, H&P, test results/EKG findings and ED management thus far were discussed with Dr. Montano. He accepts hospital admission. He agrees with cardiology consultation. He has no further recommendations at this time. 04/16/23 21:18 Patient denies development of any new symptoms while in the ED, and he continues to deny having any chest pain or pressure. Patient and daughter are aware the patient's test results, and they both agree with hospital admission at this time. EKG Findings - EKG Comments: EKG Findings:: ED physician interpretation (interpreted by me): Sinus rhythm with first-degree AV block, ventricular rate of 70 bpm, no ectopy, TN interval of 321 ms, normal QRS duration, normal QT interval, normal axis, minimal ST elevation noted in lead V2 only and mild lateral lead ST depressions (this is unchanged when compared to 02/22/2023 EKG) Medical Decision Making - Medical Decision Making Was pt. sent in by a medical professional or institution (ALISIA Valentine, [employer], urgent care, hospital, or group home...) When possible be specific @ -No Did you speak to anyone other than the patient for history (EMS, parent, family, police, friend...)? What history was obtained from this source @ -No Did you review nursing and triage notes (agree or disagree)? Why? @ -I reviewed and agree with nursing and triage notes Were old charts reviewed (outside hosp., previous admission, EMS record, old EKG, old radiological studies, urgent care reports/EKG's, group home records)? Report findings @ -No old charts were reviewed Differential Diagnosis (chest pain, altered mental status, abdominal pain women, abdominal pain men, vaginal bleeding, weakness, fever, dyspnea, syncope, headache, dizziness, GI bleed, back pain, seizure, CVA, palpatations, mental health, musculoskeletal)? @ -Differential Dyspnea: Coronary syndrome, MO, arrhythmia, tamponade, asthma, COPD, CHF, pneumonia, pneumothorax, pleural effusion, anaphylaxis, anemia, renal disease, neuromuscular, this is not meant to be an all-inclusive list. EKG interpreted by me (3pts min.). @ -As above X-rays interpreted by me (1pt min.). @ -Chest x-ray was reviewed myself and demonstrates findings of CHF. I agree with the radiologist's interpretation as above. CT interpreted by me (1pt min.). @ -None done U/S interpreted by me (1pt. min.). @ -None done What testing was considered but not performed or refused? (CT, X-rays, U/S, labs)? Why? @ -None What meds were considered but not given or refused? Why? @ -None Did you discuss the management of the patient with other professionals (professionals i.e. ALISIA Valentine, [employer], lab, RT, psych nurse, clinical social work therapist, scuba dive training instructor, teacher, electronic warfare officer, assistant case manager)? Give summary @ -No Was smoking cessation discussed for >3mins.? @ -No Was critical care preformed (if so, how long)? @ -Yes, 30 minutes. Were there social determinants of health that impacted care today? How? (Homelessness, low income, unemployed, alcoholism, drug addiction, transportation, low edu. Level, literacy, decrease access to med. care, intermediate, rehab)? @ -No Was there de-escalation of care discussed even if they declined (Discuss DNR or withdrawal of care, Hospice)? DNR status @ -No What co-morbidities impacted this encounter? (DM, HTN, Smoking, COPD, CAD, Cancer, CVA, ARF, Chemo, Hep., AIDS, mental health diagnosis, sleep apnea, morbid obesity)? @ -None Was patient admitted / discharged? Hospital course, mention meds given and route, prescriptions, significant lab abnormalities, going to OR and other pertinent info. @ -Patient's physical exam findings and chest x-ray findings are consistent with CHF. Patient's BNP is elevated as well. Patient's troponin is also elevated, but patient denies having any chest pain/pressure and his EKG is unchanged when compared to EKG. Patient is currently on Eliquis an ticoagulation therapy. Patient was given a dose of aspirin and IV Lasix in the ED. Patient is afebrile and without leukocytosis. I do not suspect an infectious etiology. Will admit the patient to the hospital for serial troponins, cardiac monitoring, continued diuresis, cardiology consultation and further evaluation/management. Dr. Montano has accepted hospital admission. Undiagnosed new problem with uncertain prognosis? @ -No Drug Therapy requiring intensive monitoring for toxicity (Heparin, Nitro, Insulin, Cardizem)? @ -No Were any procedures done? @ -No Diagnosis/symptom? @ -CHF Acute, or Chronic, or Acute on Chronic? @ -Acute Uncomplicated (without systemic symptoms) or Complicated (systemic symptoms)? @ -default Side effects of treatment? @ -No Exacerbation, Progression, or Severe Exacerbation? @ -No Poses a threat to life or bodily function? How? (Chest pain, [place], MO, pneumonia, PE, COPD, DKA, ARF, appy, cholecystitis, CVA, Diverticulitis, Homicidal, S uicidal, threat to staff... and all critical care pts) @ -Yes. Deterioration may lead to a threat to life. Diagnosis/symptom? @ -Elevated troponin Acute, or Chronic, or Acute on Chronic? @ -default Uncomplicated (without systemic symptoms) or Complicated (systemic symptoms)? @ -default Side effects of treatment? @ -none Exacerbation, Progression, or Severe Exacerbation @ -no Poses a threat to life or bodily function? @ -Yes. Significant myocardial infarction/damage could lead to threat to life. - Lab Data Result diagrams: 04/16/23 20:04/16/23 20: Lab Results 04/16/23 04/16/23 04/16/23 Range/Units 20:01 20: 20: WBC 10.2 (3.8-10.6) k/uL RBC 4.43 (4.30-5.90) m/uL Hgb 12.6 L (13.0-17.5) gm/dL Hct 37.4 L (39.0-53.0) % MCV 84.3 (80.0-100.0) fL MCH 28.5 (25.0-35.0) pg MCHC 33.7 (31.0-37.0) g/dL RDW 14.8 (11.5-15.5) % Plt Count 185 (150-450) k/uL MPV 7.3 Neutrophils % 79 % Lymphocytes % 14 % Monocytes % 4 % Eosinophils % 1 % Basophils % 0 % Neutrophils # 8.1 H (1.3-7.7) k/uL Lymphocytes # 1.4 (1.0-4.8) k/uL Monocytes # 0.4 (0-1.0) k/uL Eosinophils # 0.1 (0-0.7) k/uL Basophils # 0.0 (0-0.2) k/uL PT 11.2 (9.0-12.0) sec INR 1.1 (<1.2) APTT 27.0 (22.0-30.0) sec Sodium 140 (137-145) mmol/L Potassium 4.3 (3.5-5.1) mmol/L Chloride 108 H (98-107) mmol/L Carbon Dioxide 19 L (22-30) mmol/L Anion Gap 13 mmol/L BUN 26 H (9-20) mg/dL Creatinine 1.05 (0.66-1.25) mg/dL Est GFR (CKD-EPI)AfAm 80 (>60 ml/min/1.73 sqM) Est GFR (CKD-EPI)NonAf 70 (>60 ml/min/1.73 sqM) Glucose 156 H (74-99) mg/dL Calcium 8.5 (8.4-10.2) mg/dL Total Bilirubin 1.5 H (0.2-1.3) mg/dL AST 26 (17-59) U/L ALT 20 (4-49) U/L Alkaline Phosphatase 126 (38-126) U/L Troponin I (0.000-0.034) ng/mL NT-Pro-B Natriuret Pep pg/mL Total Protein 6.9 (6.3-8.2) g/dL Albumin 3.6 (3.5-5.0) g/dL Influenza Type A (PCR) (Not Detectd) Influenza Type B (PCR) (Not Detectd) RSV (PCR) (Not Detectd) SARS-CoV-2 (PCR) (Not Detectd) 04/16/23 04/16/23 04/16/23 Range/Units 20:01 20:01 20:01 WBC (3.8-10.6) k/uL RBC (4.30-5.90) m/uL Hgb (13.0-17.5) gm/dL Hct (39.0-53.0) % MCV (80.0-100.0) fL MCH (25.0-35.0) pg MCHC (31.0-37.0) g/dL RDW (11.5-15.5) % Plt Count (150-450) k/uL MPV Neutrophils % % Lymphocytes % % Monocytes % % Eosinophils % % Basophils % % Neutrophils # (1.3-7.7) k/uL Lymphocytes # (1.0-4.8) k/uL Monocytes # (0-1.0) k/uL Eosinophils # (0-0.7) k/uL Basophils # (0-0.2) k/uL PT (9.0-12.0) sec INR (<1.2) APTT (22.0-30.0) sec Sodium (137-145) mmol/L Potassium (3.5-5.1) mmol/L Chloride (98-107) mmol/L Carbon Dioxide (22-30) mmol/L Anion Gap mmol/L BUN (9-20) mg/dL Creatinine (0.66-1.25) mg/dL Est GFR (CKD-EPI)AfAm (>60 ml/min/1.73 sqM) Est GFR (CKD-EPI)NonAf (>60 ml/min/1.73 sqM) Glucose (74-99) mg/dL Calcium (8.4-10.2) mg/dL Total Bilirubin (0.2-1.3) mg/dL AST (17-59) U/L ALT (4-49) U/L Alkaline Phosphatase (38-126) U/L Troponin I 1.010 H* (0.000-0.034) ng/mL NT-Pro-B Natriuret Pep 1600 pg/mL Total Protein (6.3-8.2) g/dL Albumin (3.5-5.0) g/dL Influenza Type A (PCR) Not Detected (Not Detectd) Influenza Type B (PCR) Not Detected (Not Detectd) RSV (PCR) Not Detected (Not Detectd) SARS-CoV-2 (PCR) Not Detected (Not Detectd) - Radiology Data Chest x-ray: Cardiomegaly with mild pulmonary vascular congestion. Diffuse interstitial edema with superimposed opacity in the left lower lobe. This may represent layering pleural effusion versus developing pneumonic infiltrate. Critical Care Time Critical Care Time: Yes Total Critical Care Time: 30 Disposition Clinical Impression: Dyspnea, Elevated troponin, CHF (congestive heart failure) Disposition: ADMITTED IP TO THIS [facility] Condition: Stable Is patient prescribed a controlled substance at d/c from ED?: No Referrals: Valente Sharma MD [Primary Care Provider] - 1-2 days Time of Disposition: 21:23
[2023-04-16 20:25] LABS: Basophils % (A) 0 %; Eosinophils # (A) 0.1 k/uL (0-0.7); Eosinophils % (A) 1 %; HCT 37.4 % (39.0-53.0); HGB 12.6 gm/dL (13.0-17.5); Lymphocytes # (A) 1.4 k/uL (1.0-4.8); Lymphocytes % (A) 14 %; MCH 28.5 pg (25.0-35.0); MCHC 33.7 g/dL (31.0-37.0); MCV 84.3 fL (80.0-100.0); Mean Platelet Volume 7.3; Monocytes # (A) 0.4 k/uL (0-1.0); Monocytes % (A) 4 %; Neutrophils # (A) 8.1 k/uL (1.3-7.7); Neutrophils % (A) 79 %; Platelet Count 185 k/uL (150-450); RBC 4.43 m/uL (4.30-5.90); RDW 14.8 % (11.5-15.5); WBC 10.2 k/uL (3.8-10.6)
[2023-04-16 20:33] LABS: INR 1.1 (<1.2); Prothrombin Time 11.2 sec (9.0-12.0)
[2023-04-16 20:37] LABS: Albumin 3.6 g/dL (3.5-5.0); Calcium 8.5 mg/dL (8.4-10.2); Potassium 4.3 mmol/L (3.5-5.1); Total Bilirubin 1.5 mg/dL (0.2-1.3); Total Protein 6.9 g/dL (6.3-8.2)
[2023-04-16] MEDS ORDERED: ASPIRIN 81 MG PO STA (21:06)
--- NOTE | 2023-04-16 21:07 | XR ---
EXAMINATION TYPE: XR chest 1V portable DATE OF EXAM: 04/16/2023 8:17 PM COMPARISON: Chest x-ray 02/24/2023 TECHNIQUE: XR chest 1V portable . CLINICAL INDICATION:Male, 77 years old with history of dyspnea; Patient positioning obscures the medial lung apices. FINDINGS: Lungs/Pleura: Low lung volumes are present. Diffuse interstitial prominence of the bilateral lower lo bes, left greater than right. Hazy retrocardiac airspace opacity. Pulmonary vascularity: Mild pulmonary vascular congestion. Heart/mediastinum: Cardiomediastinal silhouette is enlarged and stable. Atherosclerotic calcificatio ns are seen in the aorta. Musculoskeletal: No acute osseous pathology. Midline sternotomy wires are noted and stable. IMPRESSION: Cardiomegaly with mild pulmonary vascular congestion. Diffuse interstitial edema with superimposed op acity in the left lower lobe. This may represent layering pleural effusion versus developing pneumoni c infiltrate.
[2023-04-16] MEDS ORDERED: FUROSEMIDE 10 MG/ML 4 ML VIAL IV STA (21:10)
[2023-04-16] MEDS ORDERED: NALOXONE 0.4 MG/ML 1 ML VIAL IV PRN (21:23)
--- NOTE | 2023-04-17 02:04 | P.HPIM ---
History of Present Illness H&P Date: 04/16/23 Chief Complaint: exertional dyspnea 77 year old male with severe aortic valve stenosis , DM , diastolic CHF, atrial flutter on eliquis , dementia, h/o CAD, subdural hemorrhage Oct 2022 no family present at time of my evaluation of the patient in the ED. patient has dementia, and provides very limited history he reports feeling shortness of breath while walking outside the house, and was brought in here for this. he denies any chest pain , fever, cough, abd pain, nausea or vomiting. patient is not sure and does not provide answer when asked about orthopnea and PNDs. he is not sure who was with him when he was walking or where he was. patient was brought in by ambulance per ED notes. he has no answers when asked details. due to memory issues. patient was hospitalized early in February of 2023, for diastolic CHF and left lower lobe pneumonia he denies smoking or using oxygen at home. Review of Systems ROS unobtainable: due to mental status Past Medical History Past Medical History: Coronary Artery Disease (CAD), Heart Failure, Dementia, Diabetes Mellitus, GERD/Reflux, Hyperlipidemia, Hypertension, Memory Impairment, Osteoarthritis (OA), Pneumonia, Prostate Disorder, Skin Disorder, Vascular Disorder Additional Past Medical History / Comment(s): Recent falls since diagnosed with covid and diarrhea/incontinence, IDDM type II, neuropathy in bilateral hands/feet, "beginnings" of dementia, systolic CHF, PAD, current wound L foot, BPH, chronic back pain, bronchitis, sinus issues. History of Any Multi-Drug Resistant Organisms: None Reported Past Surgical History: Coronary Bypass/CABG, Orthopedic Surgery Additional Past Surgical History / Comment(s): 2014 CABG 4 vessel/bioprosthetic aortic valve, angiograms, aortagram with bilateral run-offs, PTBA/atherectomy L leg, L foot surgery for crush injury, colonoscopy, bilateral cataract removals. Past Anesthesia/Blood Transfusion Reactions: No Reported Reaction Past Psychological History: Anxiety, Depression Smoking Status: Never smoker Past Alcohol Use History: Heavy Past Drug Use History: None Reported - Past Family History Father History Unknown: Yes Family Medical History: Congestive Heart Failure (CHF) Mother History Unknown: Yes Family Medical History: Congestive Heart Failure (CHF) Medications and Allergies Home Medications Medication Instructions Recorded Confirmed Type Omeprazole [PriLOSEC] 20 mg PO DAILY 02/23/15 04/16/23 History Donepezil [Aricept] 10 mg PO HS #30 03/13/15 04/16/23 Rx Metoprolol Succinate (ER) [Toprol 50 mg PO DAILY 03/07/17 04/16/23 History XL] Tamsulosin HCl [Flomax] 0.4 mg PO DAILY 03/07/17 04/16/23 History Furosemide [Lasix] 40 mg PO BID 11/08/19 04/16/23 History Insulin Aspart [NovoLOG Flexpen] See Protocol SQ TID-W/MEALS 11/08/19 04/16/23 History Clopidogrel [Plavix] 75 mg PO DAILY 01/21/20 04/16/23 History Amitriptyline HCl [Elavil] 25 mg PO HS 03/16/22 04/16/23 History Cholecalciferol [Vitamin D3 (25 50 mcg PO DAILY 03/16/22 04/16/23 History Mcg = 1000 Iu)] Oxybutynin Chloride [oxyBUTYnin 10 mg PO DAILY 03/16/22 04/16/23 History chloride ER] Potassium Chloride ER [K-Dur 10] 10 meq PO DAILY 03/16/22 04/16/23 History Atorvastatin [Lipitor] 80 mg PO DAILY #30 tab 03/21/22 04/16/23 Rx Insulin Glargine,Hum.rec.anlog 56 unit SQ W/LUNCH 04/05/22 04/16/23 History [Lantus Solostar Pen] Ondansetron Odt [Zofran ODT] 8 mg PO Q12HR PRN 02/21/23 04/16/23 History amLODIPine [Norvasc] 5 mg PO DAILY 02/21/23 04/16/23 History lisinopriL [Zestril] 2.5 mg PO DAILY 02/21/23 04/16/23 History Apixaban [Eliquis] 5 mg PO BID #60 tab 02/23/23 04/16/23 Rx Gabapentin [Neurontin] 300 mg PO BID 3 Days #6 cap 02/26/23 04/16/23 Rx traMADol HCl [Ultram] 50 mg PO BID #6 tab 02/26/23 04/16/23 Rx Albuterol Nebulized [Ventolin 2.5 mg INHALATION RT-TID PRN 04/16/23 04/16/23 History Nebulized] Fluticasone Nasal [place] [Flonase 2 spr EA NOSTRIL DAILY PRN 04/16/23 04/16/23 History Nasal [place]] Allergies Allergy/AdvReac Type Severity Reaction Status Date / Time No Known Allergies Allergy Verified 04/16/23 21:42 Physical Exam Vitals: Vital Signs Temp Pulse Resp BP Pulse Ox 04/16/23 20:18 70 22 154/66 93 L 04/16/23 19:18 97 04/16/23 19:16 97.8 F 71 18 158/73 94 L Intake and Output 04/16/23 04/16/23 04/16/23 06:59 14:59 22:59 Other: Weight 105.233 kg Constitutional: No acute distress, memory issues. Eyes: Anicteric sclerae, moist conjunctiva, Pupils equal round reactive to light ENMT: NC/AT Oropharynx clear, no erythema, or exudates Neck: Supple, no masses, or JVD No carotid bruits No thyromegaly Lungs: Clear to auscultation Clear to percussion Normal respiratory effort, no accessory muscle use Cardiovascular: Heart regular in rate and rhythm, systolic murmurs, no gallops, or rubs +2 bilateral peripheral leg edema left leg worse than right Abdominal: Soft Nontender, no guarding, rebound or rigidity Abdomen moving with respiration Normoactive bowel sounds No hepatomegaly, No splenomegaly No palpable mass No abdominal wall hernia noted Skin: Normal temperature, tone, texture, turgor Extremities: No digital cyanosis No clubbing Pedal pulses intact and symmetrical Radial pulses intact and symmetrical No calf tenderness Psychiatric: Alert and oriented to person, place Neuro Muscles Strength 4/5 in all 4 extremities Sensation to light touch grossly present throughout Cranial nerves II-XII grossly intact Lymphatics: no palpable cervical or supraclavicular lymph nodes Results CBC & Chem 7: 04/16/23 20:01 04/16/23 20:01 Labs: Abnormal Lab Results - Last 24 Hours (Table) 04/16/23 04/16/23 04/16/23 Range/Units 20:01 20:01 20:01 Hgb 12.6 L (13.0-17.5) gm/dL Hct 37.4 L (39.0-53.0) % Neutrophils # 8.1 H (1.3-7.7) k/uL Chloride 108 H (98-107) mmol/L Carbon Dioxide 19 L (22-30) mmol/L BUN 26 H (9-20) mg/dL Glucose 156 H (74-99) mg/dL Total Bilirubin 1.5 H (0.2-1.3) mg/dL Troponin I 1.010 H* (0.000-0.034) ng/mL Assessment and Plan Assessment: 77 year old male with diastolic CHF, severe aortic valve stenosis , presented with exertional dyspnea, I discussed the case with ED doc, patient is having elevated trops but unchanged EKG from prior , I accepted the admission for diastolic CHF exacerbation and rule out ACS with anticipated length of stay > 2 midnights acute exacerbation of Diastolic CHF , most recent ECHO showed concentric hypertrophy of left ventricle (02/2023) with LVEF 55% severe aortic valve stenosis elevated troponins p. aflutter on eliquis plan cardiology consult resume home cardiac meds, amlodipin 5 mg daily po, metoprolol 50 mg po daily , lisinopril 2.5 mg po daily s/p 1 time dose lasix IVP 40 mg in the ED will continue with oral lasix 40 mg po bid (switch to oral lasix for cautious diuresis due to severe aortic valve stenosis ) daily weight CXR showed very mild pulmonary vascular congestion and edema EKG unchanged compared to prior from 1 month ago trops 1.01 , no reported chest pain , continue to trend continue po eliquis 5 mg po bid for newly diagnosed aflutter Hgb 12.6 , unremarkable , denies bleeding WBC 10.2 BUN 25 , cr 1.05 unremarkable , patient has mora cath from home due to urinary retention continue flomax 0.4 mg po daily Na 140, K 4.3 unremarkable DM , insulin sliding scale Dementia fall precautions full code DVT PPX on eliquis for p. aflutter
[2023-04-17 03:43] LABS: Basophils % (A) 1 %; Eosinophils # (A) 0.2 k/uL (0-0.7); Eosinophils % (A) 2 %; HCT 37.8 % (39.0-53.0); HGB 12.6 gm/dL (13.0-17.5); Lymphocytes # (A) 1.6 k/uL (1.0-4.8); Lymphocytes % (A) 19 %; MCH 28.2 pg (25.0-35.0); MCHC 33.4 g/dL (31.0-37.0); MCV 84.5 fL (80.0-100.0); Mean Platelet Volume 6.9; Monocytes # (A) 0.6 k/uL (0-1.0); Monocytes % (A) 7 %; Neutrophils % (A) 70 %; Platelet Count 195 k/uL (150-450); RBC 4.47 m/uL (4.30-5.90); RDW 14.7 % (11.5-15.5); WBC 8.7 k/uL (3.8-10.6)
[2023-04-17 03:53] LABS: Albumin 3.5 g/dL (3.5-5.0); Calcium 8.8 mg/dL (8.4-10.2); Potassium 3.7 mmol/L (3.5-5.1); Total Bilirubin 1.4 mg/dL (0.2-1.3); Total Protein 6.7 g/dL (6.3-8.2)
[2023-04-17 07:29] LABS: Glucose,Whole Blood 125 mg/dL (70-110)
[2023-04-17] MEDS: INSULIN ASPART (NovoLOG) 100 UNIT/ML VIAL SQ SCH ×4 (07:34→21:11)
[2023-04-17] MEDS ORDERED: FUROSEMIDE 40 MG TAB PO SCH (09:00)
[2023-04-17] MEDS: PANTOPRAZOLE 40 MG TABLET PO SCH (09:49)
[2023-04-17] MEDS: amLODIPine 5 MG TAB PO SCH (09:49)
[2023-04-17] MEDS: CLOPIDOGREL 75 MG TAB PO SCH (09:49)
[2023-04-17] MEDS: TAMSULOSIN 0.4 MG CAP.ER.24H PO SCH (09:49)
[2023-04-17] MEDS: APIXABAN 5 MG TAB PO SCH ×2 (09:50→21:11)
[2023-04-17] MEDS: ATORVASTATIN 80 MG TAB PO SCH (09:50)
[2023-04-17] MEDS: METOPROLOL SUCCINATE (ER) 50 MG TAB.ER.24H PO SCH (09:50)
[2023-04-17] MEDS: OXYBUTYNIN 10 MG TAB.ER.24 PO SCH (10:04)
[2023-04-17] MEDS: GABAPENTIN 300 MG CAP PO SCH ×2 (10:04→21:11)
[2023-04-17] MEDS: CHOLECALCIFEROL 25 MCG (1000 IU) TABLET PO SCH (10:04)
[2023-04-17] MEDS ORDERED: FUROSEMIDE 40 MG TAB PO STA (10:41)
[2023-04-17 11:54] LABS: Glucose,Whole Blood 246 mg/dL (70-110)
--- NOTE | 2023-04-17 12:19 | P.CRDCN ---
History of Present Illness Consult date: 04/17/23 Consult reason: congestive heart failure History of present illness: The patient is a 77-year-old male who presented to the emergency room with acute onset of shortness of breath. He states after he ate dinner he developed short of breath. He states he's had some chest congestion and attributed to phlegm. He does have advanced dementia and is unable to report specifics. At the time of my examination the patient complained of back discomfort, wanting to get up out of the bed. He denies any chest pain or chest pressure. DIAGNOSTICS: Chest x-ray shows cardiomegaly with mild pulmonary vascular congestion EKG shows subtle ST changes in lead 3 and aVR, V1 and V2 Lab data: WBC 8.7, hemoglobin 12.6, hematocrit 37.8, platelet 195, sodium 139, potassium 3.7, BUN 30, creatinine 0.97, AST 23, ALT 19, ALP 119, troponin 1.01, 1.04, 1.15, BNP 1600 Echocardiogram in February 2023 shows EF of 50-55% with severe LVH and moderate aortic sclerosis with severe aortic stenosis PAST MEDICAL HISTORY: Dementia, congestive heart failure, CAD, atrial flutter, aortic stenosis, subdural hemorrhage REVIEW OF SYSTEMS: No fever or chills. No cough or expectoration. No diaphoresis. Patient denies headache, dizziness, blurred vision, double vision. Patient denies any stomach discomfort. No nausea, vomiting. No hematochezia. No hematemesis. Denies any black stools or blood in his stools. Denies dysuria or hematuria. No muscle weakness or numbness. Negative for chest pain or chest pressure. No dyspnea or orthopnea. PHYSICAL EXAMINATION: This is a 77-year-old male in no apparent distress at the time of my examination. HEENT: Head is atraumatic, normocephalic. Pupils are equal, round. Sclerae anicteric. Conjunctivae are clear. Mucous membranes of the mouth are moist. Neck is supple. There is no jugular venous distention. No carotid bruit is heard. CHEST EXAMINATION: Lungs are clear to auscultation. No chest wall tenderness is noted on palpation or with deep breathing. HEART EXAMINATION: Heart regular rate and rhythm. S1, S2 heard. Soft systolic murmur. No gallops or rub. ABDOMEN: Soft, nontender. Bowel sounds are heard. No organomegaly noted. EXTREMITIES: 2+ peripheral pulses with no evidence of peripheral edema and no calf tenderness noted. NEUROLOGIC EXAMINATION: Patient is awake, alert and oriented x3. FINAL ASSESSMENT AND PLAN: Diastolic congestive heart failure Elevated troponins History of coronary artery disease History subdural hemorrhage History of atrial flutter, not on anticoagulation History of aortic stenosis PLAN: Extra dose of oral Lasix now Increase furosemide to 80 mg in the morning and 40 mg in the afternoon Increase lisinopril for hypertension Aggressive pulmonary hygiene Further recommendations based on clinical course I am dictating on behalf of Dr Jovanny Garrido's history/physical and assess ment/plan. Past Medical History Past Medical History: Coronary Artery Disease (CAD), Heart Failure, Dementia, Diabetes Mellitus, GERD/Reflux, Hyperlipidemia, Hypertension, Memory Impairment, Osteoarthritis (OA), Pneumonia, Prostate Disorder, Skin Disorder, Vascular Disorder Additional Past Medical History / Comment(s): Recent falls since diagnosed with covid and diarrhea/incontinence, IDDM type II, neuropathy in bilateral hands/fe et, "beginnings" of dementia, systolic CHF, PAD, current wound L foot, BPH, chronic back pain, bronchitis, sinus issues. History of Any Multi-Drug Resistant Organisms: None Reported Past Surgical History: Coronary Bypass/CABG, Orthopedic Surgery Additional Past Surgical History / Comment(s): 2014 CABG 4 vessel/bioprosthetic aortic valve, angiograms, aortagram with bilateral run-offs, PTBA/atherectomy L leg, L foot surgery for crush injury, colonoscopy, bilateral cataract removals. Past Anesthesia/Blood Transfusion Reactions: No Reported Reaction Past Psychological History: Anxiety, Depression Smoking Status: Never smoker Past Alcohol Use History: Heavy Past Drug Use History: None Reported - Past Family History Father History Unknown: Yes Family Medical History: Congestive Heart Failure (CHF) Mother History Unknown: Yes Family Medical History: Congestive Heart Failure (CHF) Medications and Allergies Home Medications Medication Instructions Recorded Confirmed Type Omeprazole [PriLOSEC] 20 mg PO DAILY 02/23/15 04/16/23 History Donepezil [Aricept] 10 mg PO HS #30 03/13/15 04/16/23 Rx Metoprolol Succinate (ER) [Toprol 50 mg PO DAILY 03/07/17 04/16/23 History XL] Tamsulosin HCl [Flomax] 0.4 mg PO DAILY 03/07/17 04/16/23 History Furosemide [Lasix] 40 mg PO BID 11/08/19 04/16/23 History Insulin Aspart [NovoLOG Flexpen] See Protocol SQ TID-W/MEALS 11/08/19 04/16/23 History Clopidogrel [Plavix] 75 mg PO DAILY 01/21/20 04/16/23 History Amitriptyline HCl [Elavil] 25 mg PO HS 03/16/22 04/16/23 History Cholecalciferol [Vitamin D3 (25 50 mcg PO DAILY 03/16/22 04/16/23 History Mcg = 1000 Iu)] Oxybutynin Chloride [oxyBUTYnin 10 mg PO DAILY 03/16/22 04/16/23 History chloride ER] Potassium Chloride ER [K-Dur 10] 10 meq PO DAILY 03/16/22 04/16/23 History Atorvastatin [Lipitor] 80 mg PO DAILY #30 tab 03/21/22 04/16/23 Rx Insulin Glargine,Hum.rec.anlog 56 unit SQ W/LUNCH 04/05/22 04/16/23 History [Lantus Solostar Pen] Ondansetron Odt [Zofran ODT] 8 mg PO Q12HR PRN 02/21/23 04/16/23 History amLODIPine [Norvasc] 5 mg PO DAILY 02/21/23 04/16/23 History lisinopriL [Zestril] 2.5 mg PO DAILY 02/21/23 04/16/23 History Apixaban [Eliquis] 5 mg PO BID #60 tab 02/23/23 04/16/23 Rx Gabapentin [Neurontin] 300 mg PO BID 3 Days #6 cap 02/26/23 04/16/23 Rx traMADol HCl [Ultram] 50 mg PO BID #6 tab 02/26/23 04/16/23 Rx Albuterol Nebulized [Ventolin 2.5 mg INHALATION RT-TID PRN 04/16/23 04/16/23 History Nebulized] Fluticasone Nasal [place] [Flonase 2 spr EA NOSTRIL DAILY PRN 04/16/23 04/16/23 History Nasal [place]] Allergies Allergy/AdvReac Type Severity Reaction Status Date / Time No Known Allergies Allergy Verified 04/16/23 21:42 Physical Exam Vitals: Vital Signs Temp Pulse Resp BP Pulse Ox 04/17/23 09:00 97.1 F L 71 18 153/80 95 04/17/23 04:00 71 20 159/79 98 04/17/23 03:00 168/78 04/17/23 02:00 67 20 170/84 95 04/16/23 20:18 70 22 154/66 93 L 04/16/23 19:18 97 04/16/23 19:16 97.8 F 71 18 158/73 94 L Intake and Output 04/16/23 04/17/23 04/17/23 22:59 06:59 14:59 Output Total 1450 Balance -1450 Output: Urine 1450 Other: Weight 105.233 kg Results 04/17/23 03:12 04/17/23 03:12 Cardiac Enzymes 04/16/23 04/16/23 04/17/23 Range/Units 20:01 20:01 00:01 AST 26 (17-59) U/L Troponin I 1.010 H* 1.040 H* (0.000-0.034) ng/mL 04/17/23 04/17/23 Range/Units 03:12 03:12 AST 23 (17-59) U/L Troponin I 1.150 H* (0.000-0.034) ng/mL Coagulation 04/16/23 Range/Units 20:01 PT 11.2 (9.0-12.0) sec APTT 27.0 (22.0-30.0) sec CBC 04/16/23 04/17/23 Range/Units 20:01 03:12 WBC 10.2 8.7 (3.8-10.6) k/uL RBC 4.43 4.47 (4.30-5.90) m/uL Hgb 12.6 L 12.6 L (13.0-17.5) gm/dL Hct 37.4 L 37.8 L (39.0-53.0) % Plt Count 185 195 (150-450) k/uL Comprehensive Metabolic Panel 04/16/23 04/17/23 Range/Units 20:01 03:12 Sodium 140 139 (137-145) mmol/L Potassium 4.3 3.7 (3.5-5.1) mmol/L Chloride 108 H 107 (98-107) mmol/L Carbon Dioxide 19 L 22 (22-30) mmol/L BUN 26 H 30 H (9-20) mg/dL Creatinine 1.05 0.97 (0.66-1.25) mg/dL Glucose 156 H 132 H (74-99) mg/dL Calcium 8.5 8.8 (8.4-10.2) mg/dL AST 26 23 (17-59) U/L ALT 20 19 (4-49) U/L Alkaline Phosphatase 126 119 (38-126) U/L Total Protein 6.9 6.7 (6.3-8.2) g/dL Albumin 3.6 3.5 (3.5-5.0) g/dL Current Medications Generic Name Dose Route Start Last Admin Trade Name Freq PRN Reason Stop Dose Admin Amitriptyline HCl 25 mg 04/17/23 21:00 Amitriptyline Hcl 25 Mg Tab PO HS MELINA Amlodipine Besylate 5 mg 04/17/23 09:00 04/17/23 09:49 Amlodipine 5 Mg Tab PO 5 mg DAILY MELINA Administration Apixaban 5 mg 04/17/23 09:00 04/17/23 09:50 Apixaban 5 Mg Tab PO 5 mg BID MELINA Administration Protocol Atorvastatin Calcium 80 mg 04/17/23 09:00 04/17/23 09:50 Atorvastatin 80 Mg Tab PO 80 mg DAILY MELINA Administration Cholecalciferol 50 mcg 04/17/23 09:00 04/17/23 10:04 Cholecalciferol 25 Mcg (1000 Iu) Tablet PO 50 mcg DAILY MELINA Administration Clopidogrel Bisulfate 75 mg 04/17/23 09:00 04/17/23 09:49 Clopidogrel 75 Mg Tab PO 75 mg DAILY MELINA Administration Donepezil HCl 10 mg 04/17/23 21:00 Donepezil 10 Mg Tab PO HS MELINA Furosemide 40 mg 04/17/23 09:00 04/17/23 09:49 Furosemide 40 Mg Tab PO 40 mg BID MELINA Administration Gabapentin 300 mg 04/17/23 09:00 04/17/23 10:04 Gabapentin 300 Mg Cap PO 300 mg BID MELINA Administration Insulin Aspart 0 unit 04/17/23 07:30 04/17/23 07:34 Insulin Aspart (Novolog) 100 Unit/Ml Vial SQ Not Given ACHS MELINA Protocol Lisinopril 2.5 mg 04/17/23 21:00 Lisinopril 2.5 Mg Tab PO BID MELINA Metoprolol Succinate 50 mg 04/17/23 09:00 04/17/23 09:50 Metoprolol Succinate (Er) 50 Mg Tab.Er.24h PO 50 mg DAILY MELINA Administration Naloxone HCl 0.2 mg 04/16/23 21:23 Naloxone 0.4 Mg/Ml 1 Ml Vial IV Q2M PRN Opioid Reversal Oxybutynin Chloride 10 mg 04/17/23 09:00 04/17/23 10:04 Oxybutynin 10 Mg Tab.Er.24 PO 10 mg DAILY MELINA Administration Pantoprazole Sodium 40 mg 04/17/23 09:00 04/17/23 09:49 Pantoprazole 40 Mg Tablet PO 40 mg DAILY MELINA Administration Tamsulosin HCl 0.4 mg 04/17/23 09:00 04/17/23 09:49 Tamsulosin 0.4 Mg Cap.Er.24h PO 0.4 mg DAILY MELINA Administration Intake and Output 04/16/23 04/17/23 04/17/23 22:59 06:59 14:59 Output Total 1450 Balance -1450 Output: Urine 1450 Other: Weight 105.233 kg 04/17/23 03:12 04/17/23 03:12
[2023-04-17] MEDS: FUROSEMIDE 40 MG TAB PO SCH (14:24)
[2023-04-17 16:30] LABS: Glucose,Whole Blood 338 mg/dL (70-110)
--- NOTE | 2023-04-17 19:24 | P.PN ---
Subjective Progress Note Date: 04/17/23 Patient is a 77-year-old male with diastolic congestive heart failure ejection fraction 55%, severe aortic stenosis, diabetes mellitus type 2 on insulin therapy, atrial flutter on Eliquis, dementia, coronary artery disease, and prior subdural hemorrhage in October 2022 who presented to the ER due to shortness of breath. In the ER he underwent an extensive evaluation. Initial vital signs within normal limits. Initial laboratory analysis was remarkable for hemoglobin 12.6, carbon dioxide 19, BUN 26, glucose 156, total bilirubin 1.5, elevated troponin at 1.010. BNP was normal at 1600. Influenza A/B/RSV/COVID-19 testing was negative. Chest x-ray shows cardiomegaly with mild pulmonary vascular congestion and diffuse interstitial edema superimposed on possible passage the left lower lobe. He was started on IV Lasix 1 and then oral Lasix was ordered. Cardiology was consulted. Patient seen and examined at bedside. He reports that his breathing is much better than yesterday. He denies any chest pain, nausea, vomiting. He is unsure who he sees for cardiology at baseline but did see Dr. Garrido earlier today. He states that he had sudden onset shortness of breath after eating dinner yesterday. Vital signs reviewed General: nontoxic, no distress, appears at stated age Cardiovascular: S1S2 reg, no murmur, positive posterior tibial pulse bilateral, Lungs: Coarse breath sounds bilateral], no rhonchi, no rales , no accessory muscle use Abdominal: soft, nontender to palpation, no guarding, no appreciable organomegaly Ext: no gross muscle atrophy, trace pedal edema, no contractures Neuro: CN II-XI grossly intact, no focal neuro deficits Psych: Alert, oriented, appropriate affect Assessment: Acute exacerbation of diastolic congestive heart failure with ejection fraction 55%, severe aortic stenosis Type II non-STEMI with elevated troponin likely a in the setting of severe a ortic stenosis with CHF and atrial flutter causing hypoperfusion Paroxysmal atrial flutter on Eliquis Diabetes mellitus type 2 insulin requiring Chronic: Coronary artery disease Dementia GERD Hypertension Dyslipidemia Imaging: None new Data Review: Vital signs stable. Laboratory analysis remarkable for BUN 30, blood sugar 338, troponin 1.15 Plan: -Cardiology note reviewed: 1 extra dose of Lasix and increase furosemide to 80 in the morning and 40 in the afternoon, increase lisinopril for hypertension, aggressive pulmonary hygiene. -Continue with Eliquis 5 mg twice daily -Continue Lipitor 80 mg daily -Continue with Norvasc 5 mg daily, metoprolol 50 mg daily, and to [place] 10 mg daily, Flomax 0.4 mg daily -Give an increase in diuretics will recheck BMP, Mg in a.m. -Resume at nighttime long-acting insulin but decreased from 56 units to 40 units is typically takes with lunch, continue to follow blood sugars, sliding scale insulin -Continue with Aricept and Elavil DVT prophylaxis: Eliquis Anticipated discharge date: Pending Clinical Course Anticipated discharge place: Pending Clinical Course This dictation was prepared using [employer] voice recognition software. Though every attempt is made to correct errors during during dictation some may still exist. Objective - Vital Signs Vital signs: Vital Signs Temp 99.4 F 04/17/23 15:00 Pulse 68 04/17/23 18:27 Resp 18 04/17/23 18:27 BP 127/57 04/17/23 15:00 Pulse Ox 96 04/17/23 15:00 FiO2 Intake & Output 04/17/23 04/17/23 04/18/23 06:59 18:59 06:59 Intake Total 120 Output Total 1450 625 Balance -1450 -505 Weight 105.233 kg 105.233 kg Intake: Oral 120 Output: Urine 1450 625 - Labs CBC & Chem 7: 04/17/23 03:12 04/17/23 03:12 Labs: Abnormal Lab Results - Last 24 Hours (Table) 04/16/23 04/16/23 04/16/23 Range/Units 20:01 20:01 20:01 Hgb 12.6 L (13.0-17.5) gm/dL Hct 37.4 L (39.0-53.0) % Neutrophils # 8.1 H (1.3-7.7) k/uL Chloride 108 H (98-107) mmol/L Carbon Dioxide 19 L (22-30) mmol/L BUN 26 H (9-20) mg/dL Glucose 156 H (74-99) mg/dL POC Glucose (mg/dL) (70-110) mg/dL Total Bilirubin 1.5 H (0.2-1.3) mg/dL Troponin I 1.010 H* (0.000-0.034) ng/mL 04/17/23 04/17/23 04/17/23 Range/Units 00:01 03:12 03:12 Hgb 12.6 L (13.0-17.5) gm/dL Hct 37.8 L (39.0-53.0) % Neutrophils # (1.3-7.7) k/uL Chloride (98-107) mmol/L Carbon Dioxide (22-30) mmol/L BUN (9-20) mg/dL Glucose (74-99) mg/dL POC Glucose (mg/dL) (70-110) mg/dL Total Bilirubin (0.2-1.3) mg/dL Troponin I 1.040 H* 1.150 H* (0.000-0.034) ng/mL 04/17/23 04/17/23 04/17/23 Range/Units 03:12 07:28 11:53 Hgb (13.0-17.5) gm/dL Hct (39.0-53.0) % Neutrophils # (1.3-7.7) k/uL Chloride (98-107) mmol/L Carbon Dioxide (22-30) mmol/L BUN 30 H (9-20) mg/dL Glucose 132 H (74-99) mg/dL POC Glucose (mg/dL) 125 H 246 H (70-110) mg/dL Total Bilirubin 1.4 H (0.2-1.3) mg/dL Troponin I (0.000-0.034) ng/mL 04/17/23 Range/Units 16:29 Hgb (13.0-17.5) gm/dL Hct (39.0-53.0) % Neutrophils # (1.3-7.7) k/uL Chloride (98-107) mmol/L Carbon Dioxide (22-30) mmol/L BUN (9-20) mg/dL Glucose (74-99) mg/dL POC Glucose (mg/dL) 338 H (70-110) mg/dL Total Bilirubin (0.2-1.3) mg/dL Troponin I (0.000-0.034) ng/mL
[2023-04-17 20:13] LABS: Glucose,Whole Blood 347 mg/dL (70-110)
[2023-04-17] MEDS: DONEPEZIL 10 MG TAB PO SCH (21:10)
[2023-04-17] MEDS: AMITRIPTYLINE HCL 25 MG TAB PO SCH (21:11)
[2023-04-17] MEDS: INSULIN DETEMIR (LEVEMIR) 100 UNIT/ML SYR SQ SCH (21:12)
[2023-04-18 02:01] LABS: Glucose,Whole Blood 193 mg/dL (70-110)
[2023-04-18 05:41] LABS: Glucose,Whole Blood 200 mg/dL (70-110)
[2023-04-18] MEDS: INSULIN ASPART (NovoLOG) 100 UNIT/ML VIAL SQ SCH ×4 (06:35→20:05)
[2023-04-18] MEDS: GABAPENTIN 300 MG CAP PO SCH ×2 (08:06→19:56)
[2023-04-18] MEDS: CHOLECALCIFEROL 25 MCG (1000 IU) TABLET PO SCH (08:06)
[2023-04-18] MEDS: APIXABAN 5 MG TAB PO SCH ×2 (08:06→19:56)
[2023-04-18] MEDS: METOPROLOL SUCCINATE (ER) 50 MG TAB.ER.24H PO SCH (08:07)
[2023-04-18] MEDS: amLODIPine 5 MG TAB PO SCH (08:07)
[2023-04-18] MEDS: PANTOPRAZOLE 40 MG TABLET PO SCH (08:07)
[2023-04-18] MEDS: ATORVASTATIN 80 MG TAB PO SCH (08:07)
[2023-04-18] MEDS: CLOPIDOGREL 75 MG TAB PO SCH (08:07)
[2023-04-18] MEDS: OXYBUTYNIN 10 MG TAB.ER.24 PO SCH (08:07)
[2023-04-18] MEDS: FUROSEMIDE 40 MG TAB PO SCH (08:07)
[2023-04-18] MEDS: TAMSULOSIN 0.4 MG CAP.ER.24H PO SCH (08:07)
[2023-04-18] MEDS ORDERED: FUROSEMIDE 80 MG TAB PO SCH (09:00)
[2023-04-18 09:09] LABS: HCT 35.8 % (39.0-53.0); Hypochromasia Slight; MCH 29.3 pg (25.0-35.0); MCHC 33.6 g/dL (31.0-37.0); MCV 87.4 fL (80.0-100.0); Mean Platelet Volume 7.3; Platelet Count 181 k/uL (150-450); RDW 14.8 % (11.5-15.5); WBC 9.4 k/uL (3.8-10.6)
[2023-04-18 09:14] LABS: Calcium 8.2 mg/dL (8.4-10.2)
[2023-04-18 11:20] LABS: Glucose,Whole Blood 397 mg/dL (70-110)
--- NOTE | 2023-04-18 11:53 | P.PN ---
Subjective Progress Note Date: 04/18/23 The patient is a 77-year-old male who is admitted to the hospital with new onset of shortness of breath. This developed after eating dinner and was associated with coughing up phlegm. The patient states he did not sleep well overnight and reports tiredness. No chest pain or chest pressure. No current breathing. GENERAL: Well-appearing, well-nourished and in no acute distress. NECK: Supple without JVD or thyromegaly. LUNGS: Breath sounds clear to auscultation bilaterally. Respiration equal and unlabored. Fine crackles in left lower lobe HEART: Regular rate and rhythm. Soft systolic murmur S1 and S2 heard. EXTREMITIES: Normal range of motion, no edema. No clubbing or cyanosis. Peripheral pulses intact and strong. VITALS: Blood pressure 138/59, pulse 66, respiratory rate 16, afebrile, SpO2 99% on room air TELEMETRY: Sinus rhythm overnight. Occasional PVCs IMPRESSION: Diastolic congestive heart failure First-degree AV block Elevated troponins History of coronary artery disease History subdural hemorrhage History of atrial flutter, not on anticoagulation History of aortic stenosis PLAN: Reduce beta sera with first-degree AV block Continue all other cardiac medications including higher dose of diuretics No further recommendations from the cardiac standpoint I am dictating on behalf of Dr Jovanny Garrido's history/physical and assessment/plan. Objective - Vital Signs Vital signs: Vital Signs Temp 98.1 F 04/18/23 11:07 Pulse 66 04/18/23 11:07 Resp 16 04/18/23 11:07 BP 138/59 04/18/23 11:07 Pulse Ox 99 04/18/23 11:07 FiO2 Intake & Output 04/17/23 04/18/23 04/18/23 18:59 06:59 18:59 Intake Total 120 1080 110 Output Total 625 400 Balance -505 680 110 Weight 105.233 kg 79.5 kg Intake: Oral 120 1080 110 Output: Urine 625 400 Other: # Voids 1 - Labs CBC & Chem 7: 04/18/23 08:06 04/18/23 08:06 Labs: Abnormal Lab Results - Last 24 Hours (Table) 04/17/23 04/17/23 04/17/23 Range/Units 11:53 16:29 20:09 RBC (4.30-5.90) m/uL Hgb (13.0-17.5) gm/dL Hct (39.0-53.0) % BUN (9-20) mg/dL Glucose (74-99) mg/dL POC Glucose (mg/dL) 246 H 338 H 347 H (70-110) mg/dL Calcium (8.4-10.2) mg/dL 04/18/23 04/18/23 04/18/23 Range/Units 01:59 05:40 08:06 RBC 4.10 L (4.30-5.90) m/uL Hgb 12.0 L (13.0-17.5) gm/dL Hct 35.8 L (39.0-53.0) % BUN (9-20) mg/dL Glucose (74-99) mg/dL POC Glucose (mg/dL) 193 H 200 H (70-110) mg/dL Calcium (8.4-10.2) mg/dL 04/18/23 04/18/23 Range/Units 08:06 11:18 RBC (4.30-5.90) m/uL Hgb (13.0-17.5) gm/dL Hct (39.0-53.0) % BUN 32 H (9-20) mg/dL Glucose 273 H (74-99) mg/dL POC Glucose (mg/dL) 397 H (70-110) mg/dL Calcium 8.2 L (8.4-10.2) mg/dL
--- NOTE | 2023-04-18 14:43 | P.PN ---
Subjective Progress Note Date: 04/18/23 (delayed charting seen at 1045) Patient is a 77-year-old male with diastolic congestive heart failure ejection fraction 55%, severe aortic stenosis, diabetes mellitus type 2 on insulin the rapy, atrial flutter on Eliquis, dementia, coronary artery disease, and prior subdural hemorrhage in October 2022 who presented to the ER due to shortness of breath. In the ER he underwent an extensive evaluation. Initial vital signs within normal limits. Initial laboratory analysis was remarkable for hemoglobin 12.6, carbon dioxide 19, BUN 26, glucose 156, total bilirubin 1.5, elevated troponin at 1.010. BNP was normal at 1600. Influenza A/B/RSV/COVID-19 testing was negative. Chest x-ray shows cardiomegaly with mild pulmonary vascular congestion and diffuse interstitial edema superimposed on possible passage the left lower lobe. He was started on IV Lasix 1 and then oral Lasix was ordered. Cardiology was consulted and did increase his lisinopril and up his Lasix. He had slow improvement. Patient seen and examined at bedside. He reports she continues to have some swelling. He just wants to feel better prior to discharge. He does state his breathing is somewhat better. We discussed that he likely should have a swallow evaluation. Vital signs reviewed General: nontoxic, no distress, appears at stated age Cardiovascular: S1S2 reg, no murmur, positive posterior tibial pulse bilateral, Lungs: Coarse breath sounds bilateral], no rhonchi, no rales , no accessory muscle use Abdominal: soft, nontender to palpation, no guarding, no appreciable organomegaly Ext: no gross muscle atrophy, Left LE 2+ edema, no contractures Neuro: CN II-XI grossly intact, no focal neuro deficits Psych: Alert, oriented, appropriate affect Assessment: Acute exacerbation of diastolic congestive heart failure with ejection fraction 55%, severe aortic stenosis Type II non-STEMI with elevated troponin likely a in the setting of severe aortic stenosis with CHF and atrial flutter causing hypoperfusion Paroxysmal atrial flutter on Eliquis Diabetes mellitus type 2 insulin requiring Chronic: Coronary artery disease Dementia GERD Hypertension Dyslipidemia Imaging: None new Data Review: Vital signs reviewed temperature 98.1, pulse 69, respirations 18, blood pressure 120/59 Labs remarkable for hemoglobin of 12 (stable from 12.6 yesterday), blood sugars at a.m. fasting were 200, at 2 AM there are 193, and at 8 PM 347 Plan: -Increase Levemir to 45 units at night, continue to follow blood sugars, sliding scale insulin -Metoprolol 25 mg daily, lisinopril 2.5 mg twice daily, Norvasc 5 mg daily -Cardiology note reviewed: Reduce beta sera due to first-degree AV block -Continue with Eliquis 5 mg twice daily -Continue Lipitor 80 mg daily -Continue with Flomax 0.4 mg daily -Give an increase in diuretics will recheck BMP, Mg in a.m. -Continue with Aricept and Elavil DVT prophylaxis: Eliquis Anticipated discharge date: Pending Clinical Course Anticipated discharge place: Pending Clinical Course This dictation was prepared using [employer] voice recognition software. Though every attempt is made to correct errors during during dictation some may still exist. Objective - Vital Signs Vital signs: Vital Signs Temp 98.1 F 04/18/23 11:07 Pulse 66 04/18/23 11:07 Resp 16 04/18/23 11:07 BP 138/59 04/18/23 11:07 Pulse Ox 99 04/18/23 11:07 FiO2 Intake & Output 04/17/23 04/18/23 04/18/23 18:59 06:59 18:59 Intake Total 120 1080 220 Output Total 625 400 Balance -505 680 220 Weight 105.233 kg 79.5 kg Intake: Oral 120 1080 220 Output: Urine 625 400 Other: # Voids 1 - Labs CBC & Chem 7: 04/18/23 08:06 04/18/23 08:06 Labs: Abnormal Lab Results - Last 24 Hours (Table) 04/17/23 04/17/23 04/18/23 Range/Units 16:29 20:09 01:59 RBC (4.30-5.90) m/uL Hgb (13.0-17.5) gm/dL Hct (39.0-53.0) % BUN (9-20) mg/dL Glucose (74-99) mg/dL POC Glucose (mg/dL) 338 H 347 H 193 H (70-110) mg/dL Calcium (8.4-10.2) mg/dL 04/18/23 04/18/23 04/18/23 Range/Units 05:40 08:06 08:06 RBC 4.10 L (4.30-5.90) m/uL Hgb 12.0 L (13.0-17.5) gm/dL Hct 35.8 L (39.0-53.0) % BUN 32 H (9-20) mg/dL Glucose 273 H (74-99) mg/dL POC Glucose (mg/dL) 200 H (70-110) mg/dL Calcium 8.2 L (8.4-10.2) mg/dL 04/18/23 Range/Units 11:18 RBC (4.30-5.90) m/uL Hgb (13.0-17.5) gm/dL Hct (39.0-53.0) % BUN (9-20) mg/dL Glucose (74-99) mg/dL POC Glucose (mg/dL) 397 H (70-110) mg/dL Calcium (8.4-10.2) mg/dL
[2023-04-18 16:27] LABS: Glucose,Whole Blood 252 mg/dL (70-110)
[2023-04-18] MEDS: FUROSEMIDE 80 MG TAB PO SCH (16:51)
[2023-04-18] MEDS: AMITRIPTYLINE HCL 25 MG TAB PO SCH (19:56)
[2023-04-18] MEDS: DONEPEZIL 10 MG TAB PO SCH (19:56)
[2023-04-18 20:03] LABS: Glucose,Whole Blood 274 mg/dL (70-110)
[2023-04-18] MEDS: INSULIN DETEMIR (LEVEMIR) 100 UNIT/ML SYR SQ SCH (22:01)
[2023-04-19 01:31] LABS: Glucose,Whole Blood 318 mg/dL (70-110)
[2023-04-19 05:19] LABS: Glucose,Whole Blood 256 mg/dL (70-110)
[2023-04-19] MEDS: INSULIN ASPART (NovoLOG) 100 UNIT/ML VIAL SQ SCH ×2 (06:39→12:28)
[2023-04-19 06:42] VITALS: RESP 18
[2023-04-19 08:56] VITALS: TEMP 98
[2023-04-19] MEDS: GABAPENTIN 300 MG CAP PO SCH (08:57)
[2023-04-19] MEDS: PANTOPRAZOLE 40 MG TABLET PO SCH (08:57)
[2023-04-19] MEDS: OXYBUTYNIN 10 MG TAB.ER.24 PO SCH (08:57)
[2023-04-19] MEDS: CHOLECALCIFEROL 25 MCG (1000 IU) TABLET PO SCH (08:57)
[2023-04-19] MEDS: CLOPIDOGREL 75 MG TAB PO SCH (08:57)
[2023-04-19] MEDS: APIXABAN 5 MG TAB PO SCH (08:57)
[2023-04-19] MEDS: ATORVASTATIN 80 MG TAB PO SCH (08:57)
[2023-04-19] MEDS: TAMSULOSIN 0.4 MG CAP.ER.24H PO SCH (08:57)
[2023-04-19] MEDS: amLODIPine 5 MG TAB PO SCH (08:58)
[2023-04-19] MEDS: FUROSEMIDE 80 MG TAB PO SCH (08:58)
[2023-04-19] MEDS ORDERED: METOPROLOL SUCCINATE (ER) 25 MG TAB.ER.24H PO SCH (09:00)
[2023-04-19 09:46] LABS: Calcium 8.4 mg/dL (8.4-10.2); Potassium 4.5 mmol/L (3.5-5.1)
--- NOTE | 2023-04-19 11:46 | P.DS ---
Providers Date of admission: 04/16/23 21:24 Expected date of discharge: 04/19/23 Attending physician: Evelyn Montano MD Consults: 04/16/23 21:23 Consult Physician Urgent Consulting Provider: Fernando Hodges Consult Reason/Comments: severe Aortic stenosis, CHF, elevated troponin Do you want consulting provider notified?: Yes Primary care physician: Valente Sharma Hospital Course: Discharge Diagnosis: Acute exacerbation of diastolic congestive heart failure with ejection fraction 55%, severe aortic stenosis Type II non-STEMI with elevated troponin likely a in the setting of severe aortic stenosis with CHF and atrial flutter causing hypoperfusion Paroxysmal atrial flutter on Eliquis Diabetes mellitus type 2 insulin requiring Chronic: Coronary artery disease Dementia GERD Hypertension Dyslipidemia Hospital Course: Patient is a 77-year-old male with diastolic congestive heart failure ejection fraction 55%, severe aortic stenosis, diabetes mellitus type 2 on insulin therapy, atrial flutter on Eliquis, dementia, coronary artery disease, and prior subdural hemorrhage in October 2022 who presented to the ER due to shortness of breath. In the ER he underwent an extensive evaluation. Initial vital signs within normal limits. Initial laboratory analysis was remarkable for hemoglobin 12.6, carbon dioxide 19, BUN 26, glucose 156, total bilirubin 1.5, elevated troponin at 1.010. BNP was normal at 1600. Influenza A/B/RSV/COVID-19 testing was negative. Chest x-ray shows cardiomegaly with mild pulmonary vascular congestion and diffuse interstitial edema superimposed on possible passage the left lower lobe. He was started on IV Lasix 1 and then oral Lasix was ordered. Cardiology was consulted and did increase his lisinopril and up his Lasix. He had slow improvement. It came to light that he had run out of Laisx at home and was unable to get it refilled by his PCP. Follow-up: Dr. Hodges in 1 week, Dr. Sharma in 1 week, resume prior lasix dose of 40 mg BID and lisinopril was increased to 2.5 mg BID. repeat BMP in 3- 5 days Dx: SAMANTHA Patient seen and examined at bedside. Doing well, breathing back to baseline. Wants to go home. Vital signs reviewed and stable. General: nontoxic, no distress, appears at stated age Derm: warm, dry Head: atraumatic, normocephalic, symmetric Cardiovascular: S1S2 reg, no murmur, positive posterior tibial pulse bilateral, Lungs: Decreased bs bilateral, no rhonchi, no rales , no accessory muscle use Abdominal: soft, nontender to palpation, no guarding, no appreciable organomegaly Ext: no gross muscle atrophy, trace edema b/l LE, no contractures Neuro: CN II-XI grossly intact, no focal neuro deficits Psych: Alert, oriented, appropriate affect A total of 42 minutes of time were spent preparing this complex discharge summary. Patient was discharged on . 04/19/23 This dictation was prepared using [employer] voice recognition software. Th ough every attempt is made to correct errors during during dictation some may still exist. Patient Condition at Discharge: Stable Plan - Discharge Summary Discharge Rx Participant: No New Discharge Prescriptions: New lisinopriL [Zestril] 2.5 mg PO BID #60 tab Continue Omeprazole [PriLOSEC] 20 mg PO DAILY Donepezil [Aricept] 10 mg PO HS #30 Metoprolol Succinate (ER) [Toprol XL] 50 mg PO DAILY Tamsulosin HCl [Flomax] 0.4 mg PO DAILY Insulin Aspart [NovoLOG Flexpen] See Protocol SQ TID-W/MEALS Clopidogrel [Plavix] 75 mg PO DAILY Atorvastatin [Lipitor] 80 mg PO DAILY #30 tab Insulin Glargine,Hum.rec.anlog [Lantus Solostar Pen] 56 unit SQ W/LUNCH amLODIPine [Norvasc] 5 mg PO DAILY Apixaban [Eliquis] 5 mg PO BID #60 tab traMADol HCl [Ultram] 50 mg PO BID #6 tab Fluticasone Nasal [place] [Flonase Nasal [place]] 2 spr EA NOSTRIL DAILY PRN PRN Reason: Nasal Congestion Furosemide [Lasix] 40 mg PO BID #60 tab Oxybutynin Chloride [oxyBUTYnin chloride ER] 10 mg PO DAILY Potassium Chloride ER [K-Dur 10] 10 meq PO DAILY Cholecalciferol [Vitamin D3 (25 Mcg = 1000 Iu)] 50 mcg PO DAILY Amitriptyline HCl [Elavil] 25 mg PO HS Gabapentin [Neurontin] 300 mg PO BID 3 Days #6 cap Albuterol Nebulized [Ventolin Nebulized] 2.5 mg INHALATION RT-TID PRN PRN Reason: Shortness Of Breath Or Wheezing Discontinued lisinopriL [Zestril] 2.5 mg PO DAILY Ondansetron Odt [Zofran ODT] 8 mg PO Q12HR PRN PRN Reason: Nausea And Vomiting Discharge Medication List Omeprazole [PriLOSEC] 20 mg PO DAILY 02/23/15 [History] Donepezil [Aricept] 10 mg PO HS #30 03/13/15 [Rx] Metoprolol Succinate (ER) [Toprol XL] 50 mg PO DAILY 03/07/17 [History] Tamsulosin HCl [Flomax] 0.4 mg PO DAILY 03/07/17 [History] Insulin Aspart [NovoLOG Flexpen] See Protocol SQ TID-W/MEALS 11/08/19 [History] Clopidogrel [Plavix] 75 mg PO DAILY 01/21/20 [History] Amitriptyline HCl [Elavil] 25 mg PO HS 03/16/22 [History] Cholecalciferol [Vitamin D3 (25 Mcg = 1000 Iu)] 50 mcg PO DAILY 03/16/22 [History] Oxybutynin Chloride [oxyBUTYnin chloride ER] 10 mg PO DAILY 03/16/22 [History] Potassium Chloride ER [K-Dur 10] 10 meq PO DAILY 03/16/22 [History] Atorvastatin [Lipitor] 80 mg PO DAILY #30 tab 03/21/22 [Rx] Insulin Glargine,Hum.rec.anlog [Lantus Solostar Pen] 56 unit SQ W/LUNCH 04/05/22 [History] amLODIPine [Norvasc] 5 mg PO DAILY 02/21/23 [History] Apixaban [Eliquis] 5 mg PO BID #60 tab 02/23/23 [Rx] Gabapentin [Neurontin] 300 mg PO BID 3 Days #6 cap 02/26/23 [Rx] traMADol HCl [Ultram] 50 mg PO BID #6 tab 02/26/23 [Rx] Albuterol Nebulized [Ventolin Nebulized] 2.5 mg INHALATION RT-TID PRN 04/16/23 [History] Fluticasone Nasal [place] [Flonase Nasal [place]] 2 spr EA NOSTRIL DAILY PRN 04/16/23 [History] Furosemide [Lasix] 40 mg PO BID #60 tab 04/19/23 [Rx] lisinopriL [Zestril] 2.5 mg PO BID #60 tab 04/19/23 [Rx] Follow up Appointment(s)/Referral(s): Fernando Hodges MD [STAFF PHYSICIAN] - 1 Week Valente Sharma MD [Primary Care Provider] - 1-2 days [facility] Visiting Nurse, [NON-STAFF] - Ambulatory/Diagnostic Orders: Basic Metabolic Panel [LAB.AMB] Time Frame: 3 Days, Location: None Selected Activity/Diet/Wound Care/Special Instructions: Activity: as tolerated Diet: heart healthy, carb consistent, 2L fluid restriction Wound Care: [] Special Instructions: Please track your weights daily If you run out of Lasix you can call Dr. Hodges's office and they will refill this medication for you. Repeat blood work in 3-5 days to check kidney function on lasix. Discharge Disposition: HOME WITH HOME HEALTH SERVICES
[2023-04-19 11:48] LABS: Glucose,Whole Blood 307 mg/dL (70-110)
[2023-04-19 12:28] VITALS: BP 151/82; PULSE 69
--- NOTE | 2023-04-19 13:53 | P.PN ---
Subjective Progress Note Date: 04/19/23 HISTORY OF PRESENT ILLNESS: This is a 77-year-old male who was admitted to the hospital secondary to CHF exacerbation. Patient examined this morning. He is sitting up in the chair. Patient denies any shortness of breath. He denies any chest pain or pressure. Patient's vital signs are stable. PHYSICAL EXAM: VITAL SIGNS: Reviewed. GENERAL: Well-developed in no acute distress. NECK: Supple. No JVD or thyromegaly LUNGS: Respirations even and unlabored. Lungs essentially clear to auscultation bilaterally. HEART: Regular rate and rhythm. S1 and S2 heard. Systolic murmur noted. EXTREMITIES: Normal range of motion. No clubbing or cyanosis. Peripheral pulses intact. 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 It is noted the patient was without his lasix at home as well because he ran out. Recommend outpatient workup and evaluation for aortic valve replacement Further recommendations pending patient course Nurse practitioner note has been reviewed by physician. Signing provider agrees with the documented findings, assessment, and plan of care. Objective - Vital Signs Vital signs: Vital Signs Temp 98.0 F 04/19/23 08:49 Pulse 69 04/19/23 12:26 Resp 18 04/19/23 12:26 BP 151/82 04/19/23 12:26 Pulse Ox 97 04/19/23 12:26 FiO2 Intake & Output 04/18/23 04/19/23 04/19/23 18:59 06:59 18:59 Intake Total 336 540 350 Output Total 600 Balance 336 -60 350 Intake: Oral 336 540 350 Output: Urine 600 Other: Voiding Method Urinal Urinal # Voids 1 1 # Bowel Movements 1 1 - Labs CBC & Chem 7: 04/18/23 08:06 04/19/23 09:15 Labs: Abnormal Lab Results - Last 24 Hours (Table) 04/18/23 04/18/23 04/19/23 Range/Units 16:24 19:57 01:29 BUN (9-20) mg/dL Creatinine (0.66-1.25) mg/dL Glucose (74-99) mg/dL POC Glucose (mg/dL) 252 H 274 H 318 H (70-110) mg/dL 04/19/23 04/19/23 04/19/23 Range/Units 05:17 09:15 11:45 BUN 36 H (9-20) mg/dL Creatinine 1.28 H (0.66-1.25) mg/dL Glucose 309 H (74-99) mg/dL POC Glucose (mg/dL) 256 H 307 H (70-110) mg/dL
== END 2023-04-19 16:06 | disposition home health service (06) | DRG 280 ==
LOC: EC 19:05 → 3SCARD 21:24
PROVIDERS: ADMIT Internal Medicine; ATTEND Internal Medicine
DX: I11.0 Hypertensive heart disease with heart failure (principal); I21.A1 Myocardial infarction type 2; I50.33 Acute on chronic diastolic (congestive) heart failure; I48.3 Typical atrial flutter; N17.9 Acute kidney failure, unspecified; I35.0 Nonrheumatic aortic (valve) stenosis; I44.0 Atrioventricular block, first degree; K21.9 Gastro-esophageal reflux disease without esophagitis; N40.0 Benign prostatic hyperplasia without lower urinary tract symptoms; Z20.822 Contact with and (suspected) exposure to COVID-19; Z86.16 Personal history of COVID-19; E78.5 Hyperlipidemia, unspecified; F03.90 Unspecified dementia, unspecified severity, without behavioral disturbance, psychotic disturbance, mood disturbance, and anxiety; I25.10 Atherosclerotic heart disease of native coronary artery without angina pectoris; E11.51 Type 2 diabetes mellitus with diabetic peripheral angiopathy without gangrene; M54.9 Dorsalgia, unspecified; R32 Unspecified urinary incontinence; G89.29 Other chronic pain; I70.209 Unspecified atherosclerosis of native arteries of extremities, unspecified extremity; R19.7 Diarrhea, unspecified; Z95.1 Presence of aortocoronary bypass graft; Z95.3 Presence of xenogenic heart valve; Z95.820 Peripheral vascular angioplasty status with implants and grafts; Z79.01 Long term (current) use of anticoagulants; Z79.02 Long term (current) use of antithrombotics/antiplatelets; Z79.4 Long term (current) use of insulin; Z79.899 Other long term (current) drug therapy; Z82.49 Family history of ischemic heart disease and other diseases of the circulatory system; Z86.73 Personal history of transient ischemic attack (TIA), and cerebral infarction without residual deficits; Z87.01 Personal history of pneumonia (recurrent); Z91.81 History of falling
CPT/HCPCS: 36415; 71045; 80048; 80053; 83735; 83880; 84484; 85025; 85027; 85610; 85730; 87636; 93005; 96374; 99291

== ENCOUNTER 2023-07-08 07:09 | Day surgery (SDC) | payer MEDICARE, BC ==
[2023-07-08] MEDS ORDERED: ASPIRIN 325 MG TAB PO STA (07:34)
[2023-07-08] MEDS ORDERED: ALPRAZolam 0.25 MG TAB PO PRN (07:34)
[2023-07-08] MEDS ORDERED: HEPARIN SODIUM,PORCINE (1 ML) 2,500 UNIT in SODIUM CHLORIDE 0.9% 250 ML IRRIGATION PRN (07:34)
[2023-07-08] MEDS ORDERED: ALPRAZolam 0.5 MG TAB PO PRN (07:34)
[2023-07-08] MEDS ORDERED: NITROGLYCERIN SL TABS 0.4 MG TAB SUBLINGUAL PRN (07:34)
[2023-07-08] MEDS ORDERED: ATORVASTATIN 80 MG TAB PO STA (07:34)
[2023-07-08] MEDS ORDERED: HEPARIN SODIUM,PORCINE 10,000 UNIT in SODIUM CHLORIDE 0.9% 1,000 ML IRRIGATION PRN (07:34)
[2023-07-08] MEDS ORDERED: SODIUM CHLORIDE 0.9% 1,000 ML IV ONE (07:39)
[2023-07-08 08:14] LABS: Glucose,Whole Blood 271 mg/dL (70-110)
[2023-07-08] MEDS ORDERED: INSULIN ASPART (NovoLOG) 100 UNIT/ML VIAL SQ ONE (08:48)
[2023-07-08 10:35] LABS: African American GFR (CKD) 77 (>60 ml/min/1.73 sqM); Anion Gap 9 mmol/L; Blood Urea Nitrogen 33 mg/dL (9-20); Calcium 8.8 mg/dL (8.4-10.2); Carbon Dioxide 22 mmol/L (22-30); Chloride 107 mmol/L (98-107); Glucose 268 mg/dL (74-99); Non-African American GFR(CKD) 66 (>60 ml/min/1.73 sqM); Potassium 4.8 mmol/L (3.5-5.1); Sodium 138 mmol/L (137-145)
[2023-07-08 10:43] LABS: Basophils % (A) 0 %; Eosinophils # (A) 0.2 k/uL (0-0.7); Eosinophils % (A) 2 %; HCT 38.8 % (39.0-53.0); HGB 12.9 gm/dL (13.0-17.5); Lymphocytes # (A) 1.5 k/uL (1.0-4.8); Lymphocytes % (A) 19 %; MCHC 33.4 g/dL (31.0-37.0); MCV 83.8 fL (80.0-100.0); Mean Platelet Volume 8.1; Monocytes # (A) 0.6 k/uL (0-1.0); Monocytes % (A) 7 %; Neutrophils # (A) 5.5 k/uL (1.3-7.7); Neutrophils % (A) 70 %; Platelet Count 204 k/uL (150-450); RBC 4.63 m/uL (4.30-5.90); WBC 7.9 k/uL (3.8-10.6)
[2023-07-08] MEDS ORDERED: IV FLUID CONTINUATION 1,000 ML IV ONE (11:09)
[2023-07-08] MEDS: BENZOCAINE SPRAY 1 CAN TOPICAL ONE ×2 (11:28→11:32)
[2023-07-08] MEDS ORDERED: MIDAZOLAM 2 MG/2 ML VIAL IVP ONE ×2 (11:32→11:34)
[2023-07-08] MEDS ORDERED: fentaNYL (PF) 50 MCG/ML 2 ML AMP IVP ONE (11:32)
--- NOTE | 2023-07-08 11:56 | P.PCN ---
Date of Procedure: 07/08/23 Operative Findings: TRANSESOPHAGEAL ECHOCARDIOGRAM REROLLING MACHINE OPERATOR: RAO SMITH MD, RPVI INDICATION: Aortic stenosis SEDATION: Conscious sedation COMPLICATION: None LEVEL OF SEDATION Moderate sedation length of 30 minutes PROCEDURE DESCRIPTION: After obtaining an informed consent, the patient was brought to transesophageal echocardiogram room. Pulse oximetry and heart monitors were attached to the patient. The patient throat was sprayed using lidocaine. The patient was turned into left lateral position. After that a bite guard was placed. After an appropriate conscious sedation was initiated, the transesophageal echocardiogram was advanced through a bite guard into the mid esophagus. A 2-D echocardiogram images, color Doppler images, continuous wave images, pulse-wave images, of various cardiac structure were performed. After that the transesophageal echocardiogram probe was advanced into the stomach and fixed to obtain transgastric view was. The probe was brought into the mid esophagus. Inter-atrial septum was interrogated using 2D images, color Doppler images, and then contrast study. After that transesophageal echocardiogram was withdrawn out and upon withdrawing the descending thoracic aorta all the way up to the arch was evaluated. FINDING: The LV systolic function appeared to be mildly impaired with EF around 40-45%. The right ventricle appeared to be mildly dilated. The aortic valve appears to be extremely thickened and calcified with evidence of severe aortic stenosis with a peak gradient of 109 and mean of 69 mmHg the mitral valve appeared to be also mildly thickened with [id number] mitral regurgitation. Mild to moderate tricuspid regurgitation was identified. CONCLUSION: 1. The study was technically difficult and the patient was extremely agitated we could not perform a normal study 2. Severe aortic stenosis with peak gradient of 109 and mean of 69 mmHg 3. Mildly impaired LV function with an EF around 40-45% 4. [id number] mitral regurgitation
[2023-07-08] MEDS ORDERED: LIDOCAINE 1% INJ 10MG/ML (20 ML MDV) SQ ONE (11:58)
[2023-07-08] MEDS ORDERED: IOPAMIDOL-370 200ML BTL INJ ONE (12:19)
[2023-07-08] MEDS ORDERED: RX INFO: IV CONTRAST WAS GIVEN 1 EACH MISC MISCELLANE PRN (12:21)
--- NOTE | 2023-07-08 12:28 | P.PCN ---
Date of Procedure: 07/08/23 Operative Findings: CARDIAC CATHETERIZATION PERFORMING PHYSICIAN: Fernando Hodges MD, RPVI PROCEDURE PERFORMED: 1. Selective right and left coronary angiogram 2. RIVERA to LAD angiogram, SVG to diagonal angiogram, SVG to LCx angiogram, SVG to RCA angiogram, 3. Ultrasound-guided access of the right common femoral artery and right common femoral artery angiogram INDICATION: Aortic stenosis COMPLICATION: None APPROACH: Right common femoral artery LEVEL OF SEDATION: Moderate with sedation in length of 30 minutes PROCEDURE DESCRIPTION: After obtaining an informed consent, the patient was brought to cardiac clay processing labourer. Local anesthesia was performed using lidocaine subcutaneously. The right common femoral artery was cannulated using Seldinger technique, the guidewire passed easily, following that we advanced a 6 Chadian sheath dilator assembly, the wire and dilator were removed and sheath was flushed. Selective right and left coronary angiogram using a 6-Chadian JR4 and JL catheters. The RIVERA into LAD angiogram and SVG to diagonal as well as SVG to LCx as well as SVG to RCA angiogram performed using the JR4 catheter. The procedure was completed there was no complication. SELECTIVE CORONARY ANGIOGRAM: The right coronary artery: Is chronically occluded in the proximal to midportion Left main: Has intermediate disease. Bifurcates into an LCx and LAD The left circumflex: Large caliber vessel. The LCx proximally appears to have [id number] disease. Gives rises into an OM1 which has competitive flow from the SVG. OM 2 appeared to have intermediate disease only. The circumflex after that appears to have severe lesion feeding small to medium OM branch. The left anterior descending artery: Is subtotally occluded in the proximal to midportion was competitive flow from the RIVERA CORONARY BYPASSES ANGIOGRAM: The RIVERA to LAD is patent The SVG to diagonal is occluded The SVG to OM1 is patent The SVG to RCA is patent CONCLUSION: 1. Severe triple-vessel coronary artery disease 2. Patent RIVERA to LAD, occluded SVG to diagonal, patent SVG to LCx, and patent SVG to RCA 3. Severe disease involving the mid left circumflex after OM1. POSTPROCEDURE MANAGEMENT: The patient to be seen at the valve of the neck for the evaluation of TAVR
[2023-07-08] MEDS ORDERED: SODIUM CHLORIDE 0.9% 1,000 ML IV SCH (12:30)
[2023-07-08] MEDS: SODIUM CHLORIDE 0.9% 1,000 ML in EMPTY BAG 1 BAG IV SCH (17:29)
[2023-07-08 19:47] VITALS: BP 147/86; PULSE 78; RESP 16; TEMP 97.5
== END 2023-07-08 20:43 | disposition home or self-care (01) ==
LOC: CATHCVL 07:09 → 6NMEDSUR 12:20 → CATHCVL 20:43
PROVIDERS: ATTEND Internal Medicine Interventional Cardiology
DX: I35.0 Nonrheumatic aortic (valve) stenosis (principal); I05.0 Rheumatic mitral stenosis; I25.10 Atherosclerotic heart disease of native coronary artery without angina pectoris; I10 Essential (primary) hypertension; E78.5 Hyperlipidemia, unspecified; E11.9 Type 2 diabetes mellitus without complications; Z79.82 Long term (current) use of aspirin; Z79.899 Other long term (current) drug therapy
CPT/HCPCS: 93312; 93320; 93325; 93455; 76937; 80048; 85025; C1769 ×3; C1894; J2250; J2001; J3010; Q9967

== ENCOUNTER 2023-07-21 09:12 | Inpatient (IN) | payer MEDICARE, BC ==
[2023-07-21] MEDS ORDERED: ASPIRIN 81 MG PO STA (09:16)
[2023-07-21] MEDS ORDERED: NITROGLYCERIN OINT 1 INCH/GM PACKET TOPICAL STA (09:16)
--- NOTE | 2023-07-21 09:26 | ED ---
General Adult HPI - General Stated complaint: Shotness of breath Time Seen by Provider: 07/21/23 09:12 Source: patient, RN notes reviewed, old records reviewed - History of Present Illness Initial comments: This is a 78-year-old male who presents emergency Department with the complaint of chest pain or shortness of breath. According to EMS patient is a very poor historian which is his baseline. Initially he stated that he had central chest pain was short of breath and it started this morning. Patient currently does not have any complaints but again according to EMS he is only alert and oriented 2 at baseline and no family will be coming to give any further history. Patient denies any chest pain currently. Patient denies being short of breath currently. Patient denies abdominal pain patient with any nausea vomiting. Patient denies headache patient denies lightheadedness or dizziness patient denies any palpitations. According to EMS the patient has a history of congestive heart failure and he was given a breathing treatment on the way in even though they did not hear any wheezing. - Related Data Home Medications Medication Instructions Recorded Confirmed Omeprazole [PriLOSEC] 20 mg PO QAM 02/23/15 07/06/23 Metoprolol Succinate (ER) [Toprol 50 mg PO QAM 03/07/17 07/06/23 XL] Tamsulosin HCl [Flomax] 0.4 mg PO QAM 03/07/17 07/06/23 Insulin Aspart [NovoLOG Flexpen] See Protocol SQ BID-W/MEALS 11/08/19 07/06/23 Clopidogrel [Plavix] 75 mg PO QAM 01/21/20 07/06/23 Amitriptyline HCl [Elavil] 25 mg PO HS 03/16/22 07/06/23 Oxybutynin Chloride [oxyBUTYnin 10 mg PO QAM 03/16/22 07/06/23 chloride ER] Potassium Chloride ER [K-Dur 10] 10 meq PO HS 03/16/22 07/06/23 Insulin Glargine,Hum.rec.anlog 56 unit SQ W/LUNCH 04/05/22 07/06/23 [Lantus Solostar Pen] amLODIPine [Norvasc] 5 mg PO QAM 02/21/23 07/06/23 Albuterol Nebulized [Ventolin 2.5 mg INHALATION TID PRN 04/16/23 07/06/23 Nebulized] Fluticasone Nasal [place] [Flonase 2 spr EA NOSTRIL DAILY PRN 04/16/23 07/06/23 Nasal [place]] Atorvastatin [Lipitor] 80 mg PO HS 05/11/23 07/06/23 Cholecalciferol [Vitamin D3 (125 125 mcg PO DAILY 05/11/23 07/06/23 Mcg = 5000 Iu)] Furosemide [Lasix] 40 mg PO QAM 05/11/23 07/06/23 lisinopriL [Zestril] 2.5 mg PO QAM 05/11/23 07/06/23 Unk Ozempic 0.5 mg SQ TU 07/06/23 07/06/23 Previous Rx's Medication Instructions Recorded Donepezil [Aricept] 10 mg PO HS #30 03/13/15 Allergies Allergy/AdvReac Type Severity Reaction Status Date / Time No Known Allergies Allergy Verified 07/21/23 09:36 Review of Systems ROS Statement: Those systems with pertinent positive or pertinent negative responses have been documented in the HPI. ROS Other: All systems not noted in ROS Statement are negative. Past Medical History Past Medical History: Coronary Artery Disease (CAD), Heart Failure, Dementia, Diabetes Mellitus, GERD/Reflux, Hyperlipidemia, Hypertension, Memory Impairment, Myocardial Infarction ([place]), Neurologic Disorder, Osteoarthritis (OA), Pneumonia , Prostate Disorder, Vascular Disorder Additional Past Medical History / Comment(s): See Dr Hodges's H&P. Hx falls and diarrhea/incontinence since diagnosed with Covid Oct 2022, daughter thinks he may have had a minor heart attack when he had Covid as well. Neuropathy in bilat eral hands/feet. "Beginnings" of dementia. PAD, BPH, chronic back pain, hx bronchitis, sinus issues. Last Myocardial Infarction Date:: 2014 History of Any Multi-Drug Resistant Organisms: None Reported Past Surgical History: Coronary Bypass/CABG, Orthopedic Surgery Additional Past Surgical History / Comment(s): 2014 CABG 4 vessel/bioprosthetic aortic valve, angiograms, aortagram with bilateral run-offs, PTBA/atherectomy L leg, L foot surgery for crush injury, colonoscopy, bilateral cataract removals. Past Anesthesia/Blood Transfusion Reactions: No Reported Reaction Past Psychological History: Anxiety, Depression Additional Psychological History / Comment(s): Pt has a lashanda, Rhoda, currently residing with him. His lashanda, Sagrario, lives near and assists with his care, she manages his medications/checks blood sugar and gives him his insulin as well as assists with getting him meals. His lashanda, Medina drives him to appts. 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 Pt has PT/OT but lashanda cannot recall name of company. They are planning to hire someone to assist pt 3 days a week with ADLs/etc. Smoking Status: Never smoker Past Alcohol Use History: Heavy Additional Past Alcohol Use History / Comment(s): Pt was a heavy drinker in the past but has not drank in 15-20+ years. Past Drug Use History: None Reported - Past Family History Father History Unknown: Yes Family Medical History: Congestive Heart Failure (CHF) Mother History Unknown: Yes Family Medical History: Congestive Heart Failure (CHF) General Exam - General Exam Comments Initial Comments: GENERAL: Patient is well-developed and well-nourished. Patient is nontoxic and well- hydrated and is in no acute distress. ENT: Neck is soft and supple. No significant lymphadenopathy is noted. Oropharynx is clear. Moist mucous membranes. Neck has full range of motion without eliciting any pain. EYES: The sclera were anicteric and conjunctiva were pink and moist. Extraocular movements were intact and pupils were equal round and reactive to light. Eyelids were unremarkable. PULMONARY: Unlabored respirations. Good breath sounds bilaterally. No audible rales rhonchi or wheezing was noted. CARDIOVASCULAR: There is a regular rate and rhythm without any murmurs gallops or rubs. ABDOMEN: Soft and nontender with normal bowel sounds. SKIN: Skin is clear with no lesions or rashes and otherwise unremarkable. NEUROLOGIC: Patient is alert and oriented x3. Cranial nerves II through XII are grossly intact. Motor and sensory are also intact. Normal speech, volume and content. Symmetrical smile. MUSCULOSKELETAL: Normal extremities with adequate strength and full range of motion. 2+ edema LYMPHATICS: No significant lymphadenopathy is noted PSYCHIATRIC: Normal psychiatric evaluation. Course Vital Signs 07/21/23 09:36 Temperature 978.2 F H Pulse Rate 71 Respiratory 20 Rate Blood Pressure 148/80 O2 Sat by Pulse 96 Oximetry Medical Decision Making - Medical Decision Making EKG is interpreted by myself. EKG shows sinus rhythm at 75 bpm [place] interval is 218 QRS is 120 QT is 407 Q-T C is 438. Was pt. sent in by a medical professional or institution (, [facility], COUNT ROOM CLERK, urgent care, hospital, or retirement...) When possible be specific @ -No Did you speak to anyone other than the patient for history (EMS, parent, family, police, friend...)? What history was obtained from this source @ -No Did you review nursing and triage notes (agree or disagree)? Why? @ -I reviewed and agree with nursing and triage notes Were old charts reviewed (outside hosp., previous admission, EMS record, old EKG, old radiological studies, urgent care reports/EKG's, retirement records)? Report findings @ -I reviewed prior charts prior lab work prior radiological studies on this patient Differential Diagnosis (chest pain, altered mental status, abdominal pain women, abdominal pain men, vaginal bleeding, weakness, fever, dyspnea, syncope, headache, dizziness, GI bleed, back pain, seizure, CVA, palpatations, mental health, musculoskeletal)? @ -Differential Chest Pain: Stable Angina, Unstable Angina, STEMI, NSTEMI Aortic Dissection, Pneumothorax, Musculoskeletal, Esophageal Spasm GERD, Cholecystitis, Pancreatitis, Zoster, this is not meant to be an all-inclusive list. EKG interpreted by me (3pts min.). @ -As above X-rays interpreted by me (1pt min.). @ -Chest x-ray shows pulmonary edema CT interpreted by me (1pt min.). @ -None done U/S interpreted by me (1pt. min.). @ -None done What testing was considered but not performed or refused? (CT, X-rays, U/S, labs)? Why? @ -None What meds were considered but not given or refused? Why? @ -None Did you discuss the management of the patient with other professionals (radha barry i.e. , [employer], COUNT ROOM CLERK, lab, RT, psych nurse, social services analyst, bacon skin lifter, teacher, chief operating officer, complex case manager)? Give summary @ -Spoke with Dr. Arteaga and he agreed to admit the patient Was smoking cessation discussed for >3mins.? @ -No Was critical care preformed (if so, how long)? @ -No Were there social determinants of health that impacted care today? How? (Homelessness, low income, unemployed, alcoholism, drug addiction, transportation, low edu. Level, literacy, decrease access to med. care, fdc, rehab)? @ -No Was there de-escalation of care discussed even if they declined (Discuss DNR or withdrawal of care, Hospice)? DNR status @ -No What co-morbidities impacted this encounter? (DM, HTN, Smoking, COPD, CAD, Cancer, CVA, ARF, Chemo, Hep., AIDS, mental health diagnosis, sleep apnea, morbid obesity)? @ -None Was patient admitted / discharged? Hospital course, mention meds given and route, prescriptions, significant lab abnormalities, going to OR and other pert inent info. @ -Patient was given some Lasix in the emergency department for the pulmonary edema. I also spoke with Dr. Beckwith he agreed to admit the patient wrote admitting orders I consulted cardiology. Patient's initial troponin was negative. Undiagnosed new problem with uncertain prognosis? @ -No Drug Therapy requiring intensive monitoring for toxicity (Heparin, Nitro, Insulin, Cardizem)? @ -No Were any procedures done? @ -No Diagnosis/symptom? @ -Chest pain Acute, or Chronic, or Acute on Chronic? @ -Acute Uncomplicated (without systemic symptoms) or Complicated (systemic symptoms)? @ -Complicated Side effects of treatment? @ -No Exacerbation, Progression, or Severe Exacerbation? @ -No Poses a threat to life or bodily function? How? (Chest pain, [place], [place], pneumonia, PE, COPD, DKA, ARF, appy, cholecystitis, CVA, Diverticulitis, Homicidal, Shima cidal, threat to staff... and all critical care pts) @ -Yes this could lead to end organ dysfunction Diagnosis/symptom? @ -Pulmonary edema Acute, or Chronic, or Acute on Chronic? @ -Acute Uncomplicated (without systemic symptoms) or Complicated (systemic symptoms)? @ -Complicated Side effects of treatment? @ -none Exacerbation, Progression, or Severe Exacerbation] @ -no Poses a threat to life or bodily function? @ -no - Lab Data Result diagrams: 07/21/23 09:18 07/21/23 09:18 Lab Results 07/21/23 07/21/23 07/21/23 Range/Units 09:18 09:18 09:18 WBC 9.3 (3.8-10.6) k/uL RBC 5.16 (4.30-5.90) m/uL Hgb 14.2 (13.0-17.5) gm/dL Hct 43.2 (39.0-53.0) % MCV 83.8 (80.0-100.0) fL MCH 27.5 (25.0-35.0) pg MCHC 32.8 (31.0-37.0) g/dL RDW 15.0 (11.5-15.5) % Plt Count 181 (150-450) k/uL MPV 7.4 Neutrophils % 74 % Lymphocytes % 16 % Monocytes % 6 % Eosinophils % 3 % Basophils % 0 % Neutrophils # 6.9 (1.3-7.7) k/uL Lymphocytes # 1.5 (1.0-4.8) k/uL Monocytes # 0.5 (0-1.0) k/uL Eosinophils # 0.3 (0-0.7) k/uL Basophils # 0.0 (0-0.2) k/uL Hypochromasia Slight PT 10.4 (9.0-12.0) sec INR 1.0 (<1.2) APTT 22.1 (22.0-30.0) sec Sodium 142 (137-145) mmol/L Potassium 4.8 (3.5-5.1) mmol/L Chloride 110 H (98-107) mmol/L Carbon Dioxide 23 (22-30) mmol/L Anion Gap 9 mmol/L BUN 27 H (9-20) mg/dL Creatinine 0.94 (0.66-1.25) mg/dL Est GFR (CKD-EPI)AfAm >90 (>60 ml/min/1.73 sqM) Est GFR (CKD-EPI)NonAf 79 (>60 ml/min/1.73 sqM) Glucose 209 H (74-99) mg/dL Plasma Lactic Acid Felix (0.7-2.0) mmol/L Calcium 8.7 (8.4-10.2) mg/dL Magnesium 2.3 (1.6-2.3) mg/dL Total Bilirubin 1.4 H (0.2-1.3) mg/dL AST 28 (17-59) U/L ALT 18 (4-49) U/L Alkaline Phosphatase 121 (38-126) U/L Troponin I (0.000-0.034) ng/mL NT-Pro-B Natriuret Pep 1730 pg/mL Total Protein 7.7 (6.3-8.2) g/dL Albumin 3.9 (3.5-5.0) g/dL 07/21/23 07/21/23 Range/Units 09:18 09:18 WBC (3.8-10.6) k/uL RBC (4.30-5.90) m/uL Hgb (13.0-17.5) gm/dL Hct (39.0-53.0) % MCV (80.0-100.0) fL MCH (25.0-35.0) pg MCHC (31.0-37.0) g/dL RDW (11.5-15.5) % Plt Count (150-450) k/uL MPV Neutrophils % % Lymphocytes % % Monocytes % % Eosinophils % % Basophils % % Neutrophils # (1.3-7.7) k/uL Lymphocytes # (1.0-4.8) k/uL Monocytes # (0-1.0) k/uL Eosinophils # (0-0.7) k/uL Basophils # (0-0.2) k/uL Hypochromasia PT (9.0-12.0) sec INR (<1.2) APTT (22.0-30.0) sec Sodium (137-145) mmol/L Potassium (3.5-5.1) mmol/L Chloride (98-107) mmol/L Carbon Dioxide (22-30) mmol/L Anion Gap mmol/L BUN (9-20) mg/dL Creatinine (0.66-1.25) mg/dL Est GFR (CKD-EPI)AfAm (>60 ml/min/1.73 sqM) Est GFR (CKD-EPI)NonAf (>60 ml/min/1.73 sqM) Glucose (74-99) mg/dL Plasma Lactic Acid Felix 2.1 H* (0.7-2.0) mmol/L Calcium (8.4-10.2) mg/dL Magnesium (1.6-2.3) mg/dL Total Bilirubin (0.2-1.3) mg/dL AST (17-59) U/L ALT (4-49) U/L Alkaline Phosphatase (38-126) U/L Troponin I 0.027 (0.000-0.034) ng/mL NT-Pro-B Natriuret Pep pg/mL Total Protein (6.3-8.2) g/dL Albumin (3.5-5.0) g/dL Disposition Clinical Impression: Pulmonary edema, Chest pain Disposition: ADMITTED IP TO THIS HOSP Referrals: None,Stated [Primary Care Provider] - 1-2 days Time of Disposition: 10:57
[2023-07-21 09:53] LABS: Basophils % (A) 0 %; Eosinophils # (A) 0.3 k/uL (0-0.7); Eosinophils % (A) 3 %; HCT 43.2 % (39.0-53.0); HGB 14.2 gm/dL (13.0-17.5); Hypochromasia Slight; Lymphocytes # (A) 1.5 k/uL (1.0-4.8); Lymphocytes % (A) 16 %; MCH 27.5 pg (25.0-35.0); MCHC 32.8 g/dL (31.0-37.0); MCV 83.8 fL (80.0-100.0); Mean Platelet Volume 7.4; Monocytes # (A) 0.5 k/uL (0-1.0); Monocytes % (A) 6 %; Neutrophils # (A) 6.9 k/uL (1.3-7.7); Neutrophils % (A) 74 %; Platelet Count 181 k/uL (150-450); RBC 5.16 m/uL (4.30-5.90); WBC 9.3 k/uL (3.8-10.6)
[2023-07-21 10:04] LABS: Partial Thromboplastin Time 22.1 sec (22.0-30.0); Prothrombin Time 10.4 sec (9.0-12.0)
[2023-07-21 10:11] LABS: ALT 18 U/L (4-49); AST 28 U/L (17-59); African American GFR (CKD) >90 (>60 ml/min/1.73 sqM); Albumin 3.9 g/dL (3.5-5.0); Alkaline Phosphatase 121 U/L (38-126); Anion Gap 9 mmol/L; Blood Urea Nitrogen 27 mg/dL (9-20); Calcium 8.7 mg/dL (8.4-10.2); Carbon Dioxide 23 mmol/L (22-30); Chloride 110 mmol/L (98-107); Glucose 209 mg/dL (74-99); Magnesium 2.3 mg/dL (1.6-2.3); Non-African American GFR(CKD) 79 (>60 ml/min/1.73 sqM); Potassium 4.8 mmol/L (3.5-5.1); Sodium 142 mmol/L (137-145); Total Bilirubin 1.4 mg/dL (0.2-1.3); Total Protein 7.7 g/dL (6.3-8.2)
--- NOTE | 2023-07-21 10:12 | XR ---
EXAMINATION TYPE: XR chest 2V DATE OF EXAM: 07/21/2023 10:06 AM COMPARISON: Chest radiographs from 04/16/2023 TECHNIQUE: XR chest 2V Frontal and lateral views of the chest. CLINICAL INDICATION:Male, 78 years old with history of difficulty breathing; FINDINGS: Lungs/Pleura: Bilateral pleural effusions. No focal consolidation or pneumothorax. Pulmonary vascularity: Pulmonary vascular congestion. Heart/mediastinum: Cardiomediastinal silhouette is enlarged and stable. Atherosclerotic calcificatio ns are seen in the aorta. Post-CABG changes. Musculoskeletal: Multiple level degenerative disc disease changes seen throughout the spine. Midline sternotomy wires are noted and stable. IMPRESSION: Cardiomegaly, pulmonary vascular congestion and small bilateral pleural effusions. Correlate with BNP for congestive heart failure.
[2023-07-21 10:16] LABS: NT-Pro-B-Type Natriuretic Pept 1730 pg/mL
[2023-07-21] MEDS ORDERED: FUROSEMIDE 10 MG/ML 10 ML VIAL IV STA (10:43)
[2023-07-21] MEDS ORDERED: NITROGLYCERIN SL TABS 0.4 MG TAB SUBLINGUAL PRN (10:57)
[2023-07-21] MEDS ORDERED: NITROGLYCERIN OINT 1 INCH/GM PACKET TOPICAL SCH (13:00)
--- NOTE | 2023-07-21 13:01 | P.CRDCN ---
History of Present Illness Consult date: 07/21/23 History of present illness: History of Present Illness: The patient is a 78-year-old male with a known history of coronary artery bypass grafting, severe aortic stenosis, history of dementia, followed by Dr. Hodges who presented to the hospital, brought in by his daughter because of dyspnea. The history is obtained from his diuretics takes care of him on a regular basis and according to her his mildly more dyspneic than usual. He is very limited in his physical activity because of diabetic neuropathy. He has chronic dyspnea and occasional cough. He does not complain of any chest discomfort. He has some peripheral edema, no PND or orthopnea. He underwent cardiac catheterization recently that showed a patent RIVERA to the LAD, occluded SVG to the diagonal, pat ent SVG to the circumflex and the RCA with disease in the mid left circumflex after OM1 in a small size vessel. He states he showed an ejection fraction of 40-45% with a mean gradient of 69 mmHg across the aortic valve with mild to moderate mitral and tricuspid regurgitation. He is a nonsmoker. He is diabetic, hypertensive and hyperlipidemic. He has a history of peripheral vascular disease status post percutaneous revascularization in 2019. He has a history of paroxysmal atrial flutter, anticoagulated Medications: Zestril 2.5 mg daily, Prilosec, Toprol-XL 50 mg daily, insulin, Aricept, Plavix 75 mg daily, Norvasc 5 mg daily, Lipitor 80 mg daily, Lasix 40 mg daily,Eliquis 5 mg twice a day, Ozempic Review of Systems: Respiratory: He has dyspnea on exertion with occasional cough GI: No nausea or vomiting . No history of peptic ulcer disease. No recent GI bleed. : No hematuria or dysuria. Nervous System: No stroke or seizure. He has a history of dementia Physical Examination: 78-year-old male alert, confused, no apparent distress ,Blood pressure 148/80, Heart rate 70, obese Head: Normocephalic. Eyes: Sclerae nonicteric. Neck: Good carotid upstroke, no bruit, no jugular venous distention. Lungs: Clear to auscultation with decreased breath sounds at the base. Heart: Regular rate and rhythm, S1-S2, no S3, no rub. Systolic ejection murmur. Abdomen: Soft nontender, positive bowel sounds no organomegaly. Extremities: +1 edema, decrease distal pulses. Labs: Hemoglobin 14.2, BUN 27, creatinine 0.94, troponin 0.027 and 0.019, NT proBNP 1730. Chest x-ray with mild congestion and pleural effusion EKG: Sinus mechanism with first-degree AV block, anteroseptal myocardial infarction with nonspecific ST-T wave changes. Impression: 1. Dyspnea in a patient with history of severe aortic stenosis, being evaluated for TAVR. 2. Status post CABG with no evidence of acute coronary syndrome 3. History of hypertension 4. History of hyperlipidemia 5. History of diabetes with diabetic neuropathy 6. History of PAD 7. History of dementia 8. Paroxysmal atrial flutter Plan: 1. Resume medications 2. IV Lasix 1 3. Follow renal functions 4. If stable probable discharge home tomorrow on follow-up in the valve clinic. Discussed the findings with the daughter 5. Thank you for this consult we will follow with you. Past Medical History Past Medical History: Coronary Artery Disease (CAD), Heart Failure, Dementia, Diabetes Mellitus, GERD/Reflux, Hyperlipidemia, Hypertension, Memory Impairment, Myocardial Infarction ([place]), Neurologic Disorder, Osteoarthritis (OA), Pneumonia, Prostate Disorder, Vascular Disorder Additional Past Medical History / Comment(s): See Dr Hodges's H&P. Hx falls and diarrhea/incontinence since diagnosed with Covid Oct 2022, daughter thinks he may have had a minor heart attack when he had Covid as well. 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 "Beginnings" of dementia. PAD, BPH, chronic back pain, hx bronchitis, sinus issues. Last Myocardial Infarction Date:: 2014 History of Any Multi-Drug Resistant Organisms: None Reported Past Surgical History: Coronary Bypass/CABG, Orthopedic Surgery Additional Past Surgical History / Comment(s): 2014 CABG 4 vessel/bioprosthetic aortic valve, angiograms, aortagram with bilateral run-offs, PTBA/atherectomy L leg, L foot surgery for crush injury, colonoscopy, bilateral cataract removals. Past Anesthesia/Blood Transfusion Reactions: No Reported Reaction Past Psychological History: Anxiety, Depression Additional Psychological History / Comment(s): Pt has a lashanda, Rhoda, currently residing with him. His lashanda, Sagrario, lives near and assists with his care, she manages his medications/checks blood sugar and gives him his insulin as well as assists with getting him meals. His lashanda, Medina drives him to [employer]. 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 Pt has PT/OT but lashanda cannot recall name of company. They are planning to hire someone to assist pt 3 days a week with ADLs/etc. Smoking Status: Never smoker Past Alcohol Use History: Heavy Additional Past Alcohol Use History / Comment(s): Pt was a heavy drinker in the past but has not drank in 15-20+ years. Past Drug Use History: None Reported - Past Family History Father History Unknown: Yes Family Medical History: Congestive Heart Failure (CHF) Mother History Unknown: Yes Family Medical History: Congestive Heart Failure (CHF) Medications and Allergies Home Medications Medication Instructions Recorded Confirmed Type Omeprazole [PriLOSEC] 20 mg PO DAILY 02/23/15 07/21/23 History Donepezil [Aricept] 10 mg PO HS #30 03/13/15 07/21/23 Rx Metoprolol Succinate (ER) [Toprol 50 mg PO DAILY 03/07/17 07/21/23 History XL] Tamsulosin HCl [Flomax] 0.4 mg PO DAILY 03/07/17 07/21/23 History Insulin Aspart [NovoLOG Flexpen] See Protocol SQ TID-W/MEALS 11/08/19 07/21/23 History Clopidogrel [Plavix] 75 mg PO DAILY 01/21/20 07/21/23 History Amitriptyline HCl [Elavil] 25 mg PO HS 03/16/22 07/21/23 History Oxybutynin Chloride [oxyBUTYnin 10 mg PO DAILY 03/16/22 07/21/23 History chloride ER] Potassium Chloride ER [K-Dur 10] 10 meq PO HS 03/16/22 07/21/23 History Insulin Glargine,Hum.rec.anlog 56 unit SQ W/LUNCH 04/05/22 07/21/23 History [Lantus Solostar Pen] amLODIPine [Norvasc] 5 mg PO DAILY 02/21/23 07/21/23 History Albuterol Nebulized [Ventolin 2.5 mg INHALATION RT-QID PRN 04/16/23 07/21/23 History Nebulized] Fluticasone Nasal [place] [Flonase 2 spr EA NOSTRIL DAILY PRN 04/16/23 07/21/23 History Nasal [place]] Atorvastatin [Lipitor] 80 mg PO HS 05/11/23 07/21/23 History Cholecalciferol [Vitamin D3 (125 125 mcg PO HS 05/11/23 07/21/23 History Mcg = 5000 Iu)] Furosemide [Lasix] 40 mg PO DAILY 05/11/23 07/21/23 History lisinopriL [Zestril] 2.5 mg PO DAILY 05/11/23 07/21/23 History Apixaban [Eliquis] 5 mg PO BID 07/21/23 07/21/23 History Semaglutide [Ozempic] 0.5 mg SQ FR 07/21/23 07/21/23 History Allergies Allergy/AdvReac Type Severity Reaction Status Date / Time No Known Allergies Allergy Verified 07/21/23 11:44 Physical Exam Vitals: Vital Signs Temp Pulse Resp BP Pulse Ox 07/21/23 09:36 978.2 F H 71 20 148/80 96 Intake and Output 07/20/23 07/21/23 07/21/23 22:59 06:59 14:59 Other: Weight 105.233 kg Results 07/21/23 09:18 07/21/23 09:18 Cardiac Enzymes 07/21/23 07/21/23 07/21/23 Range/Units 09:18 09:18 11:54 AST 28 (17-59) U/L Troponin I 0.027 0.019 (0.000-0.034) ng/mL Coagulation 07/21/23 Range/Units 09:18 PT 10.4 (9.0-12.0) sec APTT 22.1 (22.0-30.0) sec CBC 07/21/23 Range/Units 09:18 WBC 9.3 (3.8-10.6) k/uL RBC 5.16 (4.30-5.90) m/uL Hgb 14.2 (13.0-17.5) gm/dL Hct 43.2 (39.0-53.0) % Plt Count 181 (150-450) k/uL Comprehensive Metabolic Panel 07/21/23 Range/Units 09:18 Sodium 142 (137-145) mmol/L Potassium 4.8 (3.5-5.1) mmol/L Chloride 110 H (98-107) mmol/L Carbon Dioxide 23 (22-30) mmol/L BUN 27 H (9-20) mg/dL Creatinine 0.94 (0.66-1.25) mg/dL Glucose 209 H (74-99) mg/dL Calcium 8.7 (8.4-10.2) mg/dL AST 28 (17-59) U/L ALT 18 (4-49) U/L Alkaline Phosphatase 121 (38-126) U/L Total Protein 7.7 (6.3-8.2) g/dL Albumin 3.9 (3.5-5.0) g/dL Current Medications Generic Name Dose Route Start Last Admin Trade Name Freq PRN Reason Stop Dose Admin Aspirin 325 mg 07/22/23 09:00 Aspirin 325 Mg Tab PO DAILY MELINA Nitroglycerin 0.4 mg 07/21/23 10:57 Nitroglycerin Sl Tabs 0.4 Mg Tab SUBLINGUAL Q5M PRN Chest Pain Nitroglycerin 1 inch 07/21/23 13:00 Nitroglycerin Oint 1 Inch/Gm Packet TOPICAL Q6HR MELINA Intake and Output 07/20/23 07/21/23 07/21/23 22:59 06:59 14:59 Other: Weight 105.233 kg Patient Weight 07/22/23 06:59 Weight 105.233 kg 07/21/23 09:18 07/21/23 09:18
[2023-07-21] MEDS ORDERED: FUROSEMIDE 10 MG/ML 4 ML VIAL IV STA (13:03)
[2023-07-21] MEDS ORDERED: FLUTICASONE 50MCG/SPRAY NASAL 16GM EA NOSTRIL PRN (13:29)
[2023-07-21] MEDS ORDERED: ALBUTEROL NEBULIZED 2.5 MG/3 ML INHALATION PRN (13:29)
[2023-07-21] MEDS ORDERED: DEXTROSE 50% SYRINGE 50 ML IVP PRN ×2 (13:31)
[2023-07-21] MEDS ORDERED: MELATONIN 3 MG TABLET PO PRN (13:38)
[2023-07-21] MEDS ORDERED: NALOXONE 0.4 MG/ML 1 ML VIAL IV PRN (13:38)
[2023-07-21] MEDS ORDERED: MAG HYDROX/AL HYDROX/SIMETH 30 ML CUP PO PRN (13:38)
[2023-07-21] MEDS ORDERED: BENZOCAINE/MENTHOL LOZENG 1 EACH LOZENGE MUCOUS MEM PRN (13:38)
[2023-07-21] MEDS ORDERED: ONDANSETRON 4 MG/2 ML VIAL IVP PRN (13:38)
[2023-07-21] MEDS ORDERED: HYDROcodone/APAP 5-325MG 1 EACH TAB PO PRN (13:38)
[2023-07-21 13:46] LABS: Glucose,Whole Blood 180 mg/dL (70-110)
[2023-07-21] MEDS: ACETAMINOPHEN TAB 325 MG TAB PO PRN ×2 (13:55→20:45)
[2023-07-21] MEDS: guaiFENesin 600 MG TABLET.ER PO SCH ×2 (14:40→20:47)
[2023-07-21 16:26] LABS: Glucose,Whole Blood 312 mg/dL (70-110)
[2023-07-21] MEDS: INSULIN ASPART (NovoLOG) 100 UNIT/ML VIAL SQ SCH ×2 (17:14→20:45)
[2023-07-21] MEDS ORDERED: OLANZapine 10 MG VIAL IM PRN (19:17)
[2023-07-21 20:40] LABS: Glucose,Whole Blood 263 mg/dL (70-110)
[2023-07-21] MEDS: INSULIN DETEMIR (LEVEMIR) 100 UNIT/ML SYR SQ SCH (20:45)
[2023-07-21] MEDS: APIXABAN 5 MG TAB PO SCH (20:45)
[2023-07-21] MEDS ORDERED: CHOLECALCIFEROL 125 MCG (5000 IU) TABLET PO SCH (21:00)
[2023-07-21] MEDS ORDERED: DONEPEZIL 10 MG TAB PO SCH (21:00)
[2023-07-21] MEDS ORDERED: ATORVASTATIN 80 MG TAB PO SCH (21:00)
[2023-07-21] MEDS ORDERED: AMITRIPTYLINE HCL 25 MG TAB PO SCH (21:00)
[2023-07-21] MEDS ORDERED: POTASSIUM CHLORIDE ER 10 MEQ TAB.ER.PRT PO SCH (21:00)
[2023-07-22 06:31] LABS: Glucose,Whole Blood 141 mg/dL (70-110)
[2023-07-22] MEDS: INSULIN ASPART (NovoLOG) 100 UNIT/ML VIAL SQ SCH ×2 (06:33→12:15)
[2023-07-22] MEDS: INSULIN DETEMIR (LEVEMIR) 100 UNIT/ML SYR SQ SCH (06:35)
[2023-07-22] MEDS ORDERED: PANTOPRAZOLE 40 MG TABLET PO SCH (07:30)
[2023-07-22] MEDS: APIXABAN 5 MG TAB PO SCH (08:48)
[2023-07-22] MEDS: guaiFENesin 600 MG TABLET.ER PO SCH (08:49)
[2023-07-22] MEDS ORDERED: CLOPIDOGREL 75 MG TAB PO SCH (09:00)
[2023-07-22] MEDS ORDERED: FUROSEMIDE 40 MG TAB PO SCH (09:00)
[2023-07-22] MEDS ORDERED: TAMSULOSIN 0.4 MG CAP.ER.24H PO SCH (09:00)
[2023-07-22] MEDS ORDERED: METOPROLOL SUCCINATE (ER) 50 MG TAB.ER.24H PO SCH (09:00)
[2023-07-22] MEDS ORDERED: ASPIRIN 325 MG TAB PO SCH (09:00)
[2023-07-22] MEDS ORDERED: NON FORMULARY DRUG (Semaglutide [Ozempic] 0.25 MG/0.2 ML Each) SQ SCH (09:00)
[2023-07-22] MEDS ORDERED: OXYBUTYNIN 10 MG TAB.ER.24 PO SCH (09:00)
[2023-07-22 09:20] LABS: African American GFR (CKD) 89 (>60 ml/min/1.73 sqM); Anion Gap 11 mmol/L; Blood Urea Nitrogen 26 mg/dL (9-20); Calcium 8.6 mg/dL (8.4-10.2); Carbon Dioxide 18 mmol/L (22-30); Chloride 110 mmol/L (98-107); Glucose 196 mg/dL (74-99); Non-African American GFR(CKD) 77 (>60 ml/min/1.73 sqM); Potassium 4.1 mmol/L (3.5-5.1); Sodium 139 mmol/L (137-145)
[2023-07-22 09:33] VITALS: RESP 16
--- NOTE | 2023-07-22 10:36 | P.HPIM ---
History of Present Illness H&P Date: 07/21/23 History of present illness; patient is 78-year-old gentleman with past medical h istory significant for coronary artery bypass grafting, severe aortic stenosis, history of dementia who presented to the ER because of shortness of breath. Patient is a poor historian. Patient stated that he was having chest pain, central in location that started this morning. Patient also was complaining of shortness of breath on exertion. No complaint of orthopnea or PND. Denies any swelling of feet Denied any palpitation. Denies any nausea, vomiting abdominal pain. Because of this chest pain, patient was brought to the ER Initial lab work done in the ER showed WBC 9.3, hemoglobin 14.2, platelet count 181, sodium 142, potassium 4.8, BUN 27, creatinine 0.94, magnesium 2.3, troponin 0.027 EKG done in the ER showed heart rate 75, QRS 120, no ST segment elevation or T- wave inversion seen. Chest x-ray done in the ER showed cardiomegaly, pulmonary venous congestion and small bilateral pleural effusion Patient admitted to medicine service REVIEW OF SYSTEMS: CONSTITUTIONAL: No fever, no malaise, no fatigue. HEENT: No recent visual problems or hearing problems. Denied any sore throat. CARDIOVASCULAR: As mentioned in HPI PULMONARY: As mentioned in HPI GASTROINTESTINAL: No diarrhea, no nausea, no vomiting, no abdominal pain. NEUROLOGICAL: No headaches, no weakness, no numbness. HEMATOLOGICAL: Denies any bleeding or petechiae. GENITOURINARY: Denies any burning micturition, frequency, or urgency. MUSCULOSKELETAL/RHEUMATOLOGICAL: Denies any joint pain, swelling, or any muscle pain. ENDOCRINE: Denies any polyuria or polydipsia. The rest of the 14-point review of systems is negative. PHYSICAL EXAMINATION: GENERAL: The patient is alert and oriented x2, not in any acute distress. Well developed, well nourished. HEENT: Pupils are round and equally reacting to light. EOMI. No scleral icterus. No conjunctival pallor. Normocephalic, atraumatic. No pharyngeal erythema. No thyromegaly. CARDIOVASCULAR: S1 and S2 present. Ejection systolic murmur noticeable in the aortic area PULMONARY: Chest is clear to auscultation, no wheezing or crackles. ABDOMEN: Soft, nontender, nondistended, normoactive bowel sounds. No palpable organomegaly. MUSCULOSKELETAL: No joint swelling or deformity. EXTREMITIES: No cyanosis, clubbing, or pedal edema. NEUROLOGICAL: Gross neurological examination did not reveal any focal deficits. SKIN: No rashes. Assessment and plan Chest pain Acute CHF Severe aortic stenosis Status post CABG with no evidence of acute coronary syndrome History of hypertension History of hyperlipidemia Insulin-dependent diabetes mellitus History of PAD History of dementia Paroxysmal atrial flutter Monitor vital signs Monitor CBC Monitor CMP Continue telemetry monitoring Strict I's and O's, daily weights Trend troponin Continue Lasix Resume home meds Consult cardiology Labs and medication were reviewed.. Continue same treatment. Continue with symptomatic treatment. Resume home medication. Monitor labs and vitals. DVT and GI prophylaxis. Further recommendations as per clinical course of the patient Dictation was produced using [employer] dictation software. please excuse any grammatical, word or spelling errors. Past Medical History Past Medical History: Coronary Artery Disease (CAD), Heart Failure, Dementia, Diabetes Mellitus, GERD/Reflux, Hyperlipidemia, Hypertension, Memory Impairment, Myocardial Infarction (IA), Neurologic Disorder, Osteoarthritis (OA), Pneumonia, Prostate Disorder, Vascular Disorder Additional Past Medical History / Comment(s): See Dr Hodges's H&P. Hx falls and diarrhea/incontinence since diagnosed with Covid Oct 2022, daughter thinks he may have had a minor heart attack when he had Covid as well. 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 "Beginnings" of dementia. PAD, BPH, chronic back pain, hx bronchitis, sinus issues. Last Myocardial Infarction Date:: 2014 History of Any Multi-Drug Resistant Organisms: None Reported Past Surgical History: Coronary Bypass/CABG, Orthopedic Surgery Additional Past Surgical History / Comment(s): 2015 CABG 4 vessel/bioprosthetic aortic valve, angiograms, aortagram with bilateral run-offs, PTBA/atherectomy L leg, L foot surgery for crush injury, colonoscopy, bilateral cataract removals. Past Anesthesia/Blood Transfusion Reactions: No Reported Reaction Past Psychological History: Anxiety, Depression Additional Psychological History / Comment(s): Pt has a lashandaRhoda, currently residing with him. His lashanda, Sagrario, lives near and assists with his care, she manages his medications/checks blood sugar and gives him his insulin as well as assists with getting him meals. His lashanda, Medina drives him to [employer]. 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 Pt has PT/OT but lashanda cannot recall name of company. They are planning to hire someone to assist pt 3 days a week with ADLs/etc. Smoking Status: Never smoker Past Alcohol Use History: Heavy Additional Past Alcohol Use History / Comment(s): Pt was a heavy drinker in the past but has not drank in 15-20+ years. Past Drug Use History: None Reported - Past Family History Father History Unknown: Yes Family Medical History: Congestive Heart Failure (CHF) Mother History Unknown: Yes Family Medical History: Congestive Heart Failure (CHF) Medications and Allergies Home Medications Medication Instructions Recorded Confirmed Type Omeprazole [PriLOSEC] 20 mg PO DAILY 02/23/15 07/21/23 History Donepezil [Aricept] 10 mg PO HS #30 03/13/15 07/21/23 Rx Metoprolol Succinate (ER) [Toprol 50 mg PO DAILY 03/07/17 07/21/23 History XL] Tamsulosin HCl [Flomax] 0.4 mg PO DAILY 03/07/17 07/21/23 History Insulin Aspart [NovoLOG Flexpen] See Protocol SQ TID-W/MEALS 11/08/19 07/21/23 History Clopidogrel [Plavix] 75 mg PO DAILY 01/21/20 07/21/23 History Amitriptyline HCl [Elavil] 25 mg PO HS 03/16/22 07/21/23 History Oxybutynin Chloride [oxyBUTYnin 10 mg PO DAILY 03/16/22 07/21/23 History chloride ER] Potassium Chloride ER [K-Dur 10] 10 meq PO HS 03/16/22 07/21/23 History Insulin Glargine,Hum.rec.anlog 56 unit SQ W/LUNCH 04/05/22 07/21/23 History [Lantus Solostar Pen] amLODIPine [Norvasc] 5 mg PO DAILY 02/21/23 07/21/23 History Albuterol Nebulized [Ventolin 2.5 mg INHALATION RT-QID PRN 04/16/23 07/21/23 History Nebulized] Fluticasone Nasal [place] [Flonase 2 spr EA NOSTRIL DAILY PRN 04/16/23 07/21/23 History Nasal [place]] Atorvastatin [Lipitor] 80 mg PO HS 05/11/23 07/21/23 History Cholecalciferol [Vitamin D3 (125 125 mcg PO HS 05/11/23 07/21/23 History Mcg = 5000 Iu)] Furosemide [Lasix] 40 mg PO DAILY 05/11/23 07/21/23 History lisinopriL [Zestril] 2.5 mg PO DAILY 05/11/23 07/21/23 History Apixaban [Eliquis] 5 mg PO BID 07/21/23 07/21/23 History Semaglutide [Ozempic] 0.5 mg SQ FR 07/21/23 07/21/23 History Allergies Allergy/AdvReac Type Severity Reaction Status Date / Time No Known Allergies Allergy Verified 07/21/23 11:44 Physical Exam Vitals: Vital Signs Temp Pulse Resp BP Pulse Ox 07/21/23 13:18 98.6 F 79 18 184/84 07/21/23 09:36 978.2 F H 71 20 148/80 96 Intake and Output 07/20/23 07/21/23 07/21/23 22:59 06:59 14:59 Intake Total 0 Balance 0 Intake: Oral 0 Other: Weight 105.233 kg Results CBC & Chem 7: 07/21/23 09:18 07/21/23 09:18 Labs: Abnormal Lab Results - Last 24 Hours (Table) 07/21/23 07/21/23 Range/Units 09:18 09:18 Chloride 110 H (98-107) mmol/L BUN 27 H (9-20) mg/dL Glucose 209 H (74-99) mg/dL Plasma Lactic Acid Felix 2.1 H* (0.7-2.0) mmol/L Total Bilirubin 1.4 H (0.2-1.3) mg/dL
--- NOTE | 2023-07-22 11:07 | CDI ---
Documentation Clarification Form Date: 07/22/2023 10:55:21 AM From: Rajani Lopez RN CCDS Phone: [phone] Admit Date: 07/21/2023 10:57:00 AM Patient Name: Tim Coleman Visit Number: [id number] Discharge Date: ATTENTION: The Clinical Documentation Specialists (CDI) and [facility] Coding Staff appreciate your assistance in clarifying documentation. Please respond to the clarification below the line at the bottom and electronically sign. The CDI & [facility] Coding staff will review the response and follow-up if needed. Please note: Queries are made part of the Legal Health Record. If you have any questions, please contact the author of this message via ITS. Dr. Fer Arteaga Your patient has the documented diagnosis of unspecified CHF 07/21, H&P. Additional information regarding the type of CHF is requested. History/Risk Factors: 78-year-old male presents to the ED with shortness with exertion. Medical Hx: CHF, Severe aortic stenosis, HTN, HLD, PAfib Clinical Indicators: VS/Pulse OX, 07/21: B/P 148/80; HR 71; Temp 98.6 Oral F; RR 20; SpO2 96% room air BNP, 07/21: 1730 Echocardiogram Results: 02/2023 EF 50-55% LV systolic function is fairly well preserved with concentric LVH. There is severe aortic stenosis with more than 4 m/s velocity. No significant the pulmonary hypertension although right sided pressures were poorly quantified. Chest X Ray: 07/21 Cardiomegaly, pulmonary vascular congestion and small bilateral pleural effusions. Treatment: 07/21 Lasix 40mg IV x 1; 07/22 Lasix 40mg po daily; Toprol Xl In your professional opinion, can you please clarify the type of CHF if known? [ x] Acute on Chronic Diastolic Heart Failure (preserved EF) [ ] Other, please specify [ ] Unable to determine (Template Last Revised: December 2020) KEIKOD
[2023-07-22 11:54] LABS: Glucose,Whole Blood 233 mg/dL (70-110)
--- NOTE | 2023-07-22 13:44 | P.DS ---
Providers Date of admission: 07/21/23 10:57 Expected date of discharge: 07/22/23 Attending physician: Fer Arteaga MD Consults: 07/21/23 10:57 Consult Physician Urgent Consulting Provider: [facility] Consult Reason/Comments: Chest pain Do you want consulting provider notified?: Yes Primary care physician: Lorie Patel [facility] Course: Discharge diagnoses; Chest pain Acute on chronic diastolic CHF Severe aortic stenosis Status post CABG with no evidence of acute coronary syndrome History of hypertension History of hyperlipidemia Insulin-dependent diabetes mellitus History of PAD History of dementia Paroxysmal atrial flutter Hospital course; patient is 78-year-old gentleman with past medical history significant for coronary artery bypass grafting, severe aortic stenosis, history of dementia who presented to the ER because of shortness of breath. Patient is a poor historian. Patient stated that he was having chest pain, central in location that started this morning. Patient also was complaining of shortness of breath on exertion. No complaint of orthopnea or PND. Denies any swelling of feet Denied any palpitation. Denies any nausea, vomiting abdominal pain. Because of this chest pain, patient was brought to the ER Initial lab work done in the ER showed WBC 9.3, hemoglobin 14.2, platelet count 181, sodium 142, potassium 4.8, BUN 27, creatinine 0.94, magnesium 2.3, troponin 0.027 EKG done in the ER showed heart rate 75, QRS 120, no ST segment elevation or T- wave inversion seen. Chest x-ray done in the ER showed cardiomegaly, pulmonary venous congestion and small bilateral pleural effusion Patient admitted to medicine service 07/22. Patient seen and examined. Cardiology evaluated the patient, agreed with current cardiac medications, they recommend patient to follow up outpatient with valvular clinic regarding patient's severe aortic stenosis PHYSICAL EXAMINATION: GENERAL: The patient is alert and oriented x2, not in any acute distress. Well developed, well nourished. HEENT: Pupils are round and equally reacting to light. EOMI. No scleral icterus. No conjunctival pallor. Normocephalic, atraumatic. No pharyngeal erythema. No thyromegaly. CARDIOVASCULAR: S1 and S2 present. no rubs, or gallops. Systolic murmur audible PULMONARY: Chest is clear to auscultation, no wheezing or crackles. ABDOMEN: Soft, nontender, nondistended, normoactive bowel sounds. No palpable organomegaly. MUSCULOSKELETAL: No joint swelling or deformity. EXTREMITIES: No cyanosis, clubbing, or pedal edema. NEUROLOGICAL: Gross neurological examination did not reveal any focal deficits. SKIN: No rashes. Dictation was produced using [employer] dictation software. please excuse any grammatical, word or spelling errors. Plan - Discharge Summary Discharge Rx Participant: Yes New Discharge Prescriptions: New guaiFENesin [Mucinex] 600 mg PO Q12HR 7 Days #14 tab Continue Omeprazole [PriLOSEC] 20 mg PO DAILY Donepezil [Aricept] 10 mg PO HS #30 Metoprolol Succinate (ER) [Toprol XL] 50 mg PO DAILY Tamsulosin HCl [Flomax] 0.4 mg PO DAILY Insulin Aspart [NovoLOG Flexpen] See Protocol SQ TID-W/MEALS Clopidogrel [Plavix] 75 mg PO DAILY Insulin Glargine,Hum.rec.anlog [Lantus Solostar Pen] 56 unit SQ W/LUNCH amLODIPine [Norvasc] 5 mg PO DAILY Fluticasone Nasal [place] [Flonase Nasal [place]] 2 spr EA NOSTRIL DAILY PRN PRN Reason: Nasal Congestion Cholecalciferol [Vitamin D3 (125 Mcg = 5000 Iu)] 125 mcg PO HS Furosemide [Lasix] 40 mg PO DAILY Atorvastatin [Lipitor] 80 mg PO HS Apixaban [Eliquis] 5 mg PO BID Oxybutynin Chloride [oxyBUTYnin chloride ER] 10 mg PO DAILY Potassium Chloride ER [K-Dur 10] 10 meq PO HS Amitriptyline HCl [Elavil] 25 mg PO HS Albuterol Nebulized [Ventolin Nebulized] 2.5 mg INHALATION RT-QID PRN PRN Reason: Shortness Of Breath lisinopriL [Zestril] 2.5 mg PO DAILY Semaglutide [Ozempic] 0.5 mg SQ FR Discharge Medication List Omeprazole [PriLOSEC] 20 mg PO DAILY 02/23/15 [History] Donepezil [Aricept] 10 mg PO HS #30 03/13/15 [Rx] Metoprolol Succinate (ER) [Toprol XL] 50 mg PO DAILY 03/07/17 [History] Tamsulosin HCl [Flomax] 0.4 mg PO DAILY 03/07/17 [History] Insulin Aspart [NovoLOG Flexpen] See Protocol SQ TID-W/MEALS 11/08/19 [History] Clopidogrel [Plavix] 75 mg PO DAILY 01/21/20 [History] Amitriptyline HCl [Elavil] 25 mg PO HS 03/16/22 [History] Oxybutynin Chloride [oxyBUTYnin chloride ER] 10 mg PO DAILY 03/16/22 [History] Potassium Chloride ER [K-Dur 10] 10 meq PO HS 03/16/22 [History] Insulin Glargine,Hum.rec.anlog [Lantus Solostar Pen] 56 unit SQ W/LUNCH 04/05/22 [History] amLODIPine [Norvasc] 5 mg PO DAILY 02/21/23 [History] Albuterol Nebulized [Ventolin Nebulized] 2.5 mg INHALATION RT-QID PRN 04/16/23 [History] Fluticasone Nasal [place] [Flonase Nasal [place]] 2 spr EA NOSTRIL DAILY PRN 04/16/23 [History] Atorvastatin [Lipitor] 80 mg PO HS 05/11/23 [History] Cholecalciferol [Vitamin D3 (125 Mcg = 5000 Iu)] 125 mcg PO HS 05/11/23 [History] Furosemide [Lasix] 40 mg PO DAILY 05/11/23 [History] lisinopriL [Zestril] 2.5 mg PO DAILY 05/11/23 [History] Apixaban [Eliquis] 5 mg PO BID 07/21/23 [History] Semaglutide [Ozempic] 0.5 mg SQ FR 07/21/23 [History] guaiFENesin [Mucinex] 600 mg PO Q12HR 7 Days #14 tab 07/22/23 [Rx] Follow up Appointment(s)/Referral(s): Lorie Patel MD [Primary Care Provider] - 1-2 Days [facility] Visiting Nurse, [NON-STAFF] - Discharge Disposition: HOME SELF-CARE
--- NOTE | 2023-07-22 14:02 | P.PN ---
Subjective Progress Note Date: 07/22/23 History of Present Illness: The patient is a 78-year-old male with a known history of coronary artery bypass grafting, severe aortic stenosis, history of dementia, followed by Dr. Hodges who presented to the hospital, brought in by his daughter because of dyspnea. The history is obtained from his diuretics takes care of him on a regular basis and according to her his mildly more dyspneic than usual. He is very limited in his physical activity because of diabetic neuropathy. He has chronic dyspnea and occasional cough. He does not complain of any chest discomfort. He has some peripheral edema, no PND or orthopnea. He underwent cardiac catheterization recently that showed a patent RIVERA to the LAD, occluded SVG to the diagonal, patent SVG to the circumflex and the RCA with disease in the mid left circumflex after OM1 in a small size vessel. He states he showed an ejection fraction of 40-45% with a mean gradient of 69 mmHg across the aortic valve with mild to moderate mitral and tricuspid regurgitation. He is a nonsmoker. He is diabetic, hypertensive and hyperlipidemic. He has a history of peripheral vascular disease status post percutaneous revascularization in 2019. He has a history of paroxysmal atrial flutter, anticoagulated Medications: Zestril 2.5 mg daily, Prilosec, Toprol-XL 50 mg daily, insulin, Aricept, Plavix 75 mg daily, Norvasc 5 mg daily, Lipitor 80 mg daily, Lasix 40 mg daily,Eliquis 5 mg twice a day, Ozempic Labs: Hemoglobin 14.2, BUN 27, creatinine 0.94, troponin 0.027 and 0.019, NT proBNP 1730. Chest x-ray with mild congestion and pleural effusion EKG: Sinus mechanism with first-degree AV block, anteroseptal myocardial infarction with nonspecific ST-T wave changes. 07/22 Patient states that his breathing is better today. He denies having any chest pain or palpitations. No wheezing. No dizziness. He states he still has a little blurriness in his eyes. Lower extremity edema is minimal. Blood pressure 179/72, heart rate 72, pulse ox 97% on room air. Repeat blood work reveals sodium 139, potassium 4.1, BUN 26 creatinine 0.96. Physical Examination: 78-year-old male alert, no apparent distress, obese Head: Normocephalic. Eyes: Sclerae nonicteric. Neck: Good carotid upstroke, no bruit, no jugular venous distention. Lungs: Clear to auscultation with decreased breath sounds at the base. Heart: Regular rate and rhythm, S1-S2, no S3, no rub. Systolic ejection murmur. Abdomen: Soft nontender, positive bowel sounds no organomegaly. Extremities: minimal edema, decrease distal pulses. Impression: 1. Dyspnea in a patient with history of severe aortic stenosis, being evaluated for TAVR. 2. Status post CABG with no evidence of acute coronary syndrome 3. History of hypertension 4. History of hyperlipidemia 5. History of diabetes with diabetic neuropathy 6. History of PAD 7. History of dementia 8. Paroxysmal atrial flutter Plan: 1. Resume medications 2. Patient is cleared from cardiology for discharge home and may follow up with Dr. Hodges in 1-2 weeks. Nurse practitioner note has been reviewed, I agree with the documented findings and plan of care. Patient was seen and examined. Objective - Vital Signs Vital signs: Vital Signs Temp 98.8 F 07/22/23 11:53 Pulse 72 07/22/23 11:53 Resp 16 07/22/23 11:53 BP 179/72 07/22/23 11:53 Pulse Ox 97 07/22/23 11:53 FiO2 Intake & Output 07/21/23 07/22/23 07/22/23 18:59 06:59 18:59 Intake Total 200 540 177 Output Total 2100 Balance -1900 540 177 Weight 105.233 kg 101 kg Intake: Oral 200 540 177 Output: Urine 2100 Other: Voiding Method External Catheter External Catheter # Bowel Movements 1 - Labs CBC & Chem 7: 07/21/23 09:18 07/22/23 07:47 Labs: Abnormal Lab Results - Last 24 Hours (Table) 07/21/23 07/21/23 07/22/23 Range/Units 16:25 20:38 06:29 Chloride (98-107) mmol/L Carbon Dioxide (22-30) mmol/L BUN (9-20) mg/dL Glucose (74-99) mg/dL POC Glucose (mg/dL) 312 H 263 H 141 H (70-110) mg/dL 07/22/23 07/22/23 Range/Units 07:47 11:52 Chloride 110 H (98-107) mmol/L Carbon Dioxide 18 L (22-30) mmol/L BUN 26 H (9-20) mg/dL Glucose 196 H (74-99) mg/dL POC Glucose (mg/dL) 233 H (70-110) mg/dL
[2023-07-22 15:50] VITALS: BMI 32.8
[2023-07-22 16:34] VITALS: BP 160/70; PULSE 63; TEMP 97.9
[2023-07-22 16:39] LABS: Chol/HDL Ratio 2.88 Ratio; LDL Cholesterol,Calculated 31.9 mg/dL (0.0-131.0)
== END 2023-07-22 18:15 | disposition home or self-care (01) | DRG 291 ==
LOC: EC 09:12 → 3SCARD 10:57
PROVIDERS: ADMIT Internal Medicine; ATTEND Internal Medicine
DX: I11.0 Hypertensive heart disease with heart failure (principal); I50.33 Acute on chronic diastolic (congestive) heart failure; I48.92 Unspecified atrial flutter; F03.90 Unspecified dementia, unspecified severity, without behavioral disturbance, psychotic disturbance, mood disturbance, and anxiety; I08.3 Combined rheumatic disorders of mitral, aortic and tricuspid valves; E78.5 Hyperlipidemia, unspecified; Z79.4 Long term (current) use of insulin; E11.51 Type 2 diabetes mellitus with diabetic peripheral angiopathy without gangrene; E11.42 Type 2 diabetes mellitus with diabetic polyneuropathy; I25.2 Old myocardial infarction; K21.9 Gastro-esophageal reflux disease without esophagitis; Z86.16 Personal history of COVID-19; Z91.81 History of falling; G89.29 Other chronic pain; R29.6 Repeated falls; Z87.01 Personal history of pneumonia (recurrent); R01.1 Cardiac murmur, unspecified; M19.90 Unspecified osteoarthritis, unspecified site; I25.10 Atherosclerotic heart disease of native coronary artery without angina pectoris; N40.0 Benign prostatic hyperplasia without lower urinary tract symptoms; J40 Bronchitis, not specified as acute or chronic; Z79.899 Other long term (current) drug therapy; Z79.01 Long term (current) use of anticoagulants; Z79.02 Long term (current) use of antithrombotics/antiplatelets; Z82.49 Family history of ischemic heart disease and other diseases of the circulatory system; Z95.3 Presence of xenogenic heart valve; Z98.42 Cataract extraction status, left eye; Z98.41 Cataract extraction status, right eye
CPT/HCPCS: 36415; 71046; 80048; 80053; 80061; 83036; 83605; 83735; 83880; 84484; 85025; 85610; 85730; 93005; 96374; 99285

== ENCOUNTER → 2023-07-28 | Outpatient (CLI) | payer MEDICARE, BC ==
[~2023-07-28] MED LIST changes: -ALPRAZolam 0.25 MG TAB PO PRN; -ASPIRIN 325 MG TAB PO STA
[2023-07-28 07:42] VITALS: RESP 18; TEMP 97.9
[2023-07-28 07:45] LABS: Glucose,Whole Blood 202 mg/dL (70-110)
[2023-07-28 08:22] LABS: Prothrombin Time 10.9 sec (9.0-12.0)
[2023-07-28 08:48] LABS: ALT 20 U/L (4-49); AST 48 U/L (17-59); African American GFR (CKD) 75 (>60 ml/min/1.73 sqM); Albumin 3.4 g/dL (3.5-5.0); Alkaline Phosphatase 106 U/L (38-126); Anion Gap 9 mmol/L; Blood Urea Nitrogen 38 mg/dL (9-20); Calcium 8.9 mg/dL (8.4-10.2); Carbon Dioxide 15 mmol/L (22-30); Chloride 113 mmol/L (98-107); Globulin 3.5 g/dL; Glucose 187 mg/dL (74-99); Non-African American GFR(CKD) 65 (>60 ml/min/1.73 sqM); Sodium 137 mmol/L (137-145); Total Bilirubin 1.4 mg/dL (0.2-1.3); Total Protein 6.9 g/dL (6.3-8.2)
[2023-07-28 08:51] LABS: Potassium 5.5 mmol/L (3.5-5.1)
[2023-07-28 08:58] LABS: NT-Pro-B-Type Natriuretic Pept 1010 pg/mL
[2023-07-28 11:18] LABS: Basophils # (A) 0.04 X 10*3/uL (0.00-0.10); Basophils % (A) 0.5 %; Eosinophils # (A) 0.16 X 10*3/uL (0.04-0.35); Eosinophils % (A) 1.9 %; HCT 38.1 % (39.6-50.0); HGB 12.4 d/dL (13.0-17.0); Lymphocytes # (A) 1.72 X 10*3/uL (0.90-5.00); Lymphocytes % (A) 20.8 %; MCHC 32.5 d/dL (32.0-37.0); MCV 82.8 FL (80.0-97.0); Mean Platelet Volume 9.9 FL (9.5-12.2); Monocytes # (A) 0.62 X 10*3/uL (0.20-1.00); Monocytes % (A) 7.5 %; NRBC Per 100 WBC 0 X 10*3/uL (0.00-0.01); Neutrophils # (A) 5.72 X 10*3/uL (1.80-7.70); Neutrophils % (A) 69.1 %; Platelet Count 196 X 10*3/uL (140-440); RDW 14.4 % (11.5-14.5); WBC 8.28 X 10*3/uL (4.50-10.00)
--- NOTE | 2023-07-28 12:01 | US ---
EXAMINATION TYPE: US carotid duplex BILAT DATE OF EXAM: 07/28/2023 COMPARISON: NONE CLINICAL INDICATION: Male, 78 years old with history of R55 SYNCOPE; TAVR patient TECHNIQUE: Carotid duplex ultrasound examination. Indirect Doppler criteria was utilized. 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 Criteria for Assigning % of Stenosis / Diameter reduction (Estimation based on the indirect measurements of the internal carotid artery velocities (ICA PSV). 1. Normal (no stenosis)=ICA PSV < 125 cm/s: ratio < 2.0: ICA EDV<40 cm/s. 2. Less than 50% stenosis=ICA PSV < 125 cm/s: ratio < 2.0: ICA EDV<40 cm/s. 3. 50 to 69% stenosis=ICA PSV of 125 to 230 cm/s: ration 2.0 ? 4.0: ICA EDV 40-100 cm/s. 4. Greater than 70% stenosis to near occlusion= ICA PSV > 230 cm/s: ratio > 4.0: ICA EDV > 100 cm/s. 5. Near occlusion= ICA PSV velocities may be low or undetectable: variable ratio and ICA EDV. 6. Total occlusion=unable to detect flow.
[2023-07-28 14:00] VITALS: BP 141/59; PULSE 62
[2023-07-28 17:46] LABS: Hepatitis A Antibody IgM Nonreactive; Hepatitis B Core IgM Nonreactive; Hepatitis B Surface Antigen Nonreactive; Hepatitis C IgG Antibody Nonreactive
[2023-07-28 18:09] LABS: Chol/HDL Ratio 3.62 Ratio; LDL Cholesterol,Calculated 39.4 mg/dL (0.0-131.0); Magnesium 1.9 mg/dL (1.5-2.4)
--- NOTE | 2023-07-29 09:16 | CT ---
EXAMINATION TYPE: CT TAVR Planning DATE OF EXAM: 07/28/2023 COMPARISON: None HISTORY: TAVR. CT DLP: 2362.9 mGycm Automated exposure control for dose reduction was used. Contrast: None Technique: Axial images 1 mm thick sections. Reconstructed images in the coronal and sagittal plane. Gated imaging is performed. FINDINGS: There is a three-vessel arch. Vascular calcifications within the aorta. The ascending thoracic aorta below the main pulmonary artery is 4.4 cm. Main pulmonary artery the bifurcation is 3.3 cm. Coronary artery calcification is noted. Descending thoracic aorta tapers to its visualized course. There is a small left pleural effusion. CT ABDOMEN: Small amount of fluid may be adjacent to the gallbladder. Consider cholecystitis. Vascula r calcifications within the abdominal aorta. No aneurysmal dilatation is evident. Renal arteries appe ar normal. Kidneys appear normal without masses cyst or hydronephrosis. Liver spleen pancreas and adr enal glands as visualized are unremarkable. Inferior vena cava appears unremarkable. CT PELVIS: Common iliac arteries are patent. Common femoral arteries to the bifurcations are normal. Diverticular changes without acute diverticulitis or within the sigmoid colon. Urinary bladder is unr emarkable. IMPRESSION: 1. CT FOR TAVR PLANNING. 2. SMALL LEFT PLEURAL EFFUSION
== END | disposition home or self-care (01) ==
LOC: LABWHC1 06:52
PROVIDERS: ATTEND Thoracic Surgery (Cardiothoracic Vascular Surgery)
DX: Z01.818 Encounter for other preprocedural examination (principal); I35.1 Nonrheumatic aortic (valve) insufficiency; E87.8 Other disorders of electrolyte and fluid balance, not elsewhere classified; I35.0 Nonrheumatic aortic (valve) stenosis; E11.9 Type 2 diabetes mellitus without complications; Z79.899 Other long term (current) drug therapy; E07.9 Disorder of thyroid, unspecified; E78.5 Hyperlipidemia, unspecified; N28.9 Disorder of kidney and ureter, unspecified; Z79.01 Long term (current) use of anticoagulants; R58 Hemorrhage, not elsewhere classified; R35.0 Frequency of micturition; R55 Syncope and collapse; I70.90 Unspecified atherosclerosis
CPT/HCPCS: 83880; 80061; 80053; 80074; 84443; 83735; 85025; 85610; 85730; 83036; 93880; 71275; 74174; 36415; Q9967

== ENCOUNTER 2023-10-11 19:39 | Inpatient (IN) | payer MEDICARE, BC ==
--- NOTE | 2023-10-11 20:47 | XR ---
EXAMINATION TYPE: XR chest 2V DATE OF EXAM: 10/11/2023 8:13 PM CLINICAL INDICATION:Male, 78 years old with history of difficulty breathing; [facility] COMPARISON: Chest radiographs from 07/21/2023 TECHNIQUE: XR chest 2V Frontal and lateral views of the chest. FINDINGS: Lungs/Pleura: There is no evidence of right pleural effusion, focal consolidation, or pneumothorax. Blunting of the left costophrenic angle. Pulmonary vascularity: Pulmonary vascular congestion. Heart/mediastinum: Cardiomediastinal silhouette is enlarged and stable. Musculoskeletal: No acute osseous pathology. IMPRESSION: Cardiomegaly, pulmonary vascular congestion and left pleural effusions. Correlate with BNP for conges tive heart failure.
[2023-10-11 20:52] LABS: Basophils % (A) 0 %; Eosinophils # (A) 0.1 k/uL (0-0.7); Eosinophils % (A) 2 %; HCT 43.7 % (39.0-53.0); HGB 14.1 gm/dL (13.0-17.5); Lymphocytes # (A) 1.4 k/uL (1.0-4.8); Lymphocytes % (A) 17 %; MCH 26.5 pg (25.0-35.0); MCHC 32.2 g/dL (31.0-37.0); MCV 82.2 fL (80.0-100.0); Mean Platelet Volume 7.3; Monocytes # (A) 0.4 k/uL (0-1.0); Monocytes % (A) 5 %; Neutrophils # (A) 6.1 k/uL (1.3-7.7); Neutrophils % (A) 74 %; Platelet Count 222 k/uL (150-450); RBC 5.31 m/uL (4.30-5.90); WBC 8.3 k/uL (3.8-10.6)
--- NOTE | 2023-10-11 20:58 | ED ---
SOB HPI - General Chief Complaint: Shortness of Breath Stated Complaint: CHF, SOB Time Seen by Provider: 10/11/23 20:55 Source: patient, family, RN notes reviewed Mode of arrival: wheelchair Limitations: no limitations - History of Present Illness Initial Comments: This is a 78-year-old male who presents to the emergency department for shortness of breath. Patient is a poor historian secondary to dementia, and history was obtained from his daughter. States that she is his primary caregiver, however she had been isolating for about 10 days as her tested positive for Covid. She saw him for the first time today after taking that ten-day break, and she noticed that walking even very small distances, such as from his bed to the restroom, he becomes increasingly short of breath and has to stop. He does have a hx of CHF. When speaking with the patient, he denies chest pain or having significant shortness of breath, however his daughter stat es that he is confused and cannot recall today's events. Also reports increasing swelling to his legs over the last couple of days. MD Complaint: shortness of breath Onset/Timin -: days(s) - Related Data Home Medications Medication Instructions Recorded Confirmed Omeprazole [PriLOSEC] 20 mg PO DAILY 02/23/15 07/21/23 Metoprolol Succinate (ER) [Toprol 50 mg PO DAILY 03/07/17 07/21/23 XL] Tamsulosin HCl [Flomax] 0.4 mg PO DAILY 03/07/17 07/21/23 Insulin Aspart [NovoLOG Flexpen] See Protocol SQ TID-W/MEALS 11/08/19 07/21/23 Clopidogrel [Plavix] 75 mg PO DAILY 01/21/20 07/21/23 Amitriptyline HCl [Elavil] 25 mg PO HS 03/16/22 07/21/23 Oxybutynin Chloride [oxyBUTYnin 10 mg PO DAILY 03/16/22 07/21/23 chloride ER] Potassium Chloride ER [K-Dur 10] 10 meq PO HS 03/16/22 07/21/23 Insulin Glargine,Hum.rec.anlog 56 unit SQ W/LUNCH 04/05/22 07/21/23 [Lantus Solostar Pen] amLODIPine [Norvasc] 5 mg PO DAILY 02/21/23 07/21/23 Albuterol Nebulized [Ventolin 2.5 mg INHALATION RT-QID PRN 04/16/23 07/21/23 Nebulized] Fluticasone Nasal [place] [Flonase 2 spr EA NOSTRIL DAILY PRN 04/16/23 07/21/23 Nasal [place]] Atorvastatin [Lipitor] 80 mg PO HS 05/11/23 07/21/23 Cholecalciferol [Vitamin D3 (125 125 mcg PO HS 05/11/23 07/21/23 Mcg = 5000 Iu)] Furosemide [Lasix] 40 mg PO DAILY 05/11/23 07/21/23 lisinopriL [Zestril] 2.5 mg PO DAILY 05/11/23 07/21/23 Apixaban [Eliquis] 5 mg PO BID 07/21/23 07/21/23 Semaglutide [Ozempic] 0.5 mg SQ FR 07/21/23 07/21/23 Previous Rx's Medication Instructions Recorded Donepezil [Aricept] 10 mg PO HS #30 03/13/15 guaiFENesin [Mucinex] 600 mg PO Q12HR 7 Days #14 tab 07/22/23 Allergies Allergy/AdvReac Type Severity Reaction Status Date / Time No Known Allergies Allergy Verified 07/21/23 11:44 Review of Systems ROS Statement: Those systems with pertinent positive or pertinent negative responses have been documented in the HPI. ROS Other: All systems not noted in ROS Statement are negative. Past Medical History Past Medical History: Coronary Artery Disease (CAD), Heart Failure, Dementia, Diabetes Mellitus, GERD/Reflux, Hyperlipidemia, Hypertension, Memory Impairment, Myocardial Infarction ([place]), Neurologic Disorder, Osteoarthritis (OA), Pneumonia, Prostate Disorder, Vascular Disorder Additional Past Medical History / Comment(s): See Dr Hodges's H&P. Hx falls and diarrhea/incontinence since diagnosed with Covid Oct 2022, daughter thinks he may have had a minor heart attack when he had Covid as well. 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 "Beginnings" of dementia. PAD, BPH, chronic back pain, hx bronchitis, sinus issues. Last Myocardial Infarction Date:: 2014 History of Any Multi-Drug Resistant Organisms: None Reported Past Surgical History: Coronary Bypass/CABG, Orthopedic Surgery Additional Past Surgical History / Comment(s): 2014 CABG 4 vessel/bioprosthetic aortic valve, angiograms, aortagram with bilateral run-offs, PTBA/atherectomy L leg, L foot surgery for crush injury, colonoscopy, bilateral cataract removals. Past Anesthesia/Blood Transfusion Reactions: No Reported Reaction Past Psychological History: Anxiety, Depression Smoking Status: Never smoker Past Alcohol Use History: Heavy Past Drug Use History: None Reported - Past Family History Father History Unknown: Yes Family Medical History: Congestive Heart Failure (CHF) Mother History Unknown: Yes Family Medical History: Congestive Heart Failure (CHF) General Exam Limitations: no limitations General appearance: alert, in no apparent distress Head exam: Present: atraumatic, normocephalic, normal inspection Respiratory exam: Present: rhonchi, decreased breath sounds, prolonged expiratory Cardiovascular Exam: Present: regular rate, normal rhythm, normal heart sounds. Absent: systolic murmur, diastolic murmur, rubs, gallop, clicks Extremities exam: Present: other (3+ pitting edema to the bilateral lower extremities with overlying dryness and scaling) Neurological exam: Present: alert, oriented X3, CN II-XII intact Psychiatric exam: Present: normal affect, normal mood Course Vital Signs 10/11/23 10/12/23 10/12/23 19:41 00:40 01:27 Temperature 98.8 F Pulse Rate 66 58 L 60 Respiratory 20 31 H 16 Rate Blood Pressure 134/64 123/61 O2 Sat by Pulse 96 97 97 Oximetry 10/12/23 10/12/23 02:52 03:52 Temperature Pulse Rate 74 70 Respiratory 16 16 Rate Blood Pressure 122/68 O2 Sat by Pulse 99 97 Oximetry Medical Decision Making - Medical Decision Making This is a 78-year-old male who presents to the emergency department for shortness of breath. Was pt. sent in by a medical professional or institution? @ -No Did you speak to anyone other than the patient for history? @ -His daughter provided the majority of the information due to his dementia. Did you review nursing and triage notes? @ -Yes, and I agree, it is accurate with regards to the patient's symptoms. Were old charts reviewed? @ -No Differential Diagnosis? @ -Differential Dyspnea: Coronary syndrome, arrhythmia, tamponade, asthma, COPD, pulmonary embolism, pneumonia, pneumothorax, pulmonary effusion, anaphylaxis, diabetic ketoacidosis, flailed chest, pulmonary contusion, diaphragmatic rupture, anemia, neuromusc ular, this is not meant to be an all-inclusive list. EKG interpreted by me (3pts min.)? @ -EKG interpreted by me demonstrating the following: Sinus rhythm with 2nd degree AV block. Ventricular rate 62 bpm, QRS duration 116 ms, QTC 425 ms. X-rays interpreted by me (1pt min.)? @ -Chest x-ray obtained. My interpretation identifies pulmonary vascular congestion and a left pleural effusion. CT interpreted by me (1pt min.)? @ -Not obtained U/S interpreted by me (1pt. min.)? @ -Not obtained What testing was considered but not performed? (CT, X-rays, U/S, labs)? Why? @ -None What meds were considered but not given? Why? @ -None Did you discuss the management of the patient with other professionals? @ -Yes, Dr. Mathis, who accepts the patient for admission. Did you reconcile home meds? @ -No Was smoking cessation discussed for >3mins.? @ -No Was critical care preformed (if so, how long)? @ -No Were there social determinants of health that impacted care today? How? (Homelessness, low income, unemployed, alcoholism, drug addiction, transportation, low edu. Level, literacy, decrease access to med. care, custodial, rehab)? @ -No Was there de-escalation of care discussed even if they declined? (Discuss DNR or withdrawal of care, Hospice)? @ -No What co-morbidities impacted this encounter? (DM, HTN, Smoking, COPD, CAD, Canc er, CVA, Hep., AIDS, mental health diagnosis, sleep apnea, morbid obesity)? @ -CAD, CHF, dementia, DM, HLD, HTN Was patient admitted / discharged? @ -Admitted. The majority of the information was obtained from his daughter, as the patient was fairly confused secondary to dementia with regards to his symptoms and did not know many specifics. Lab work obtained revealing an elevated BNP of 1750 and elevated troponin of 0.043. Elevated troponin likely related to BNP elevation, which has been the case for him in the past. Also appears to have a mild SAMANTHA, however his kidney function has been worse in the past. Covid, influenza, and RSV testing were negative. Chest x-ray obtained revealing pulmonary vascular congestion and a left pleural effusion. 40 mg of IV Lasix administered. Patient admitted to medicine for CHF exacerbation and elevated troponin. Serial troponins were ordered and cardiology consult placed. Patient was noted to have right upper quadrant pain by admitting hospitalist and a gallbladder ultrasound was requested. This was ordered and will be done when ultrasound arrives later this morning. Undiagnosed new problem with uncertain prognosis? @ -None Drug Therapy requiring intensive monitoring for toxicity (Heparin, Nitro, Insulin, Cardizem)? @ -None Were any procedures done? @ -None Diagnosis/symptom? @ -CHF exacerbation Acute, or Chronic, or Acute on Chronic? @ -Acute on chronic Uncomplicated (without systemic symptoms) or Complicated (systemic symptoms)? @ -Uncomplicated Side effects of treatment? @ -None Exacerbation, Progression, or Severe Exacerbation] @ -Exacerbation Poses a threat to life or bodily function? @ -Yes This case was discussed in detail with the attending ED physician, Dr. Crooks. Presentation, findings, and treatment plan discussed in detail as well. - Lab Data Result diagrams: 10/11/23 19:48 10/11/23 19:48 Lab Results 10/11/23 10/11/23 10/11/23 Range/Units 19:48 19:48 19:48 WBC 8.3 (3.8-10.6) k/uL RBC 5.31 (4.30-5.90) m/uL Hgb 14.1 (13.0-17.5) gm/dL Hct 43.7 (39.0-53.0) % MCV 82.2 (80.0-100.0) fL MCH 26.5 (25.0-35.0) pg MCHC 32.2 (31.0-37.0) g/dL RDW 15.0 (11.5-15.5) % Plt Count 222 (150-450) k/uL MPV 7.3 Neutrophils % 74 % Lymphocytes % 17 % Monocytes % 5 % Eosinophils % 2 % Basophils % 0 % Neutrophils # 6.1 (1.3-7.7) k/uL Lymphocytes # 1.4 (1.0-4.8) k/uL Monocytes # 0.4 (0-1.0) k/uL Eosinophils # 0.1 (0-0.7) k/uL Basophils # 0.0 (0-0.2) k/uL PT 11.0 (10.0-12.5) sec INR 1.0 (<1.2) APTT 24.9 (22.0-30.0) sec Sodium 141 (137-145) mmol/L Potassium 4.4 (3.5-5.1) mmol/L Chloride 106 (98-107) mmol/L Carbon Dioxide 23 (22-30) mmol/L Anion Gap 12 mmol/L BUN 37 H (9-20) mg/dL Creatinine 1.30 H (0.66-1.25) mg/dL Est GFR (CKD-EPI)AfAm 61 (>60 ml/min/1.73 sqM) Est GFR (CKD-EPI)NonAf 53 (>60 ml/min/1.73 sqM) Glucose 236 H (74-99) mg/dL Plasma Lactic Acid Felix (0.7-2.0) mmol/L Calcium 9.4 (8.4-10.2) mg/dL Total Bilirubin 0.9 (0.2-1.3) mg/dL AST 22 (17-59) U/L ALT 20 (4-49) U/L Alkaline Phosphatase 139 H (38-126) U/L Troponin I (0.000-0.034) ng/mL NT-Pro-B Natriuret Pep pg/mL Total Protein 7.6 (6.3-8.2) g/dL Albumin 4.0 (3.5-5.0) g/dL Influenza Type A (PCR) (Not Detectd) Influenza Type B (PCR) (Not Detectd) RSV (PCR) (Not Detectd) SARS-CoV-2 (PCR) (Not Detectd) 10/11/23 10/11/23 10/11/23 Range/Units 19:48 19:48 19:48 WBC (3.8-10.6) k/uL RBC (4.30-5.90) m/uL Hgb (13.0-17.5) gm/dL Hct (39.0-53.0) % MCV (80.0-100.0) fL MCH (25.0-35.0) pg MCHC (31.0-37.0) g/dL RDW (11.5-15.5) % Plt Count (150-450) k/uL MPV Neutrophils % % Lymphocytes % % Monocytes % % Eosinophils % % Basophils % % Neutrophils # (1.3-7.7) k/uL Lymphocytes # (1.0-4.8) k/uL Monocytes # (0-1.0) k/uL Eosinophils # (0-0.7) k/uL Basophils # (0-0.2) k/uL PT (10.0-12.5) sec INR (<1.2) APTT (22.0-30.0) sec Sodium (137-145) mmol/L Potassium (3.5-5.1) mmol/L Chloride (98-107) mmol/L Carbon Dioxide (22-30) mmol/L Anion Gap mmol/L BUN (9-20) mg/dL Creatinine (0.66-1.25) mg/dL Est GFR (CKD-EPI)AfAm (>60 ml/min/1.73 sqM) Est GFR (CKD-EPI)NonAf (>60 ml/min/1.73 sqM) Glucose (74-99) mg/dL Plasma Lactic Acid Felix 2.0 (0.7-2.0) mmol/L Calcium (8.4-10.2) mg/dL Total Bilirubin (0.2-1.3) mg/dL AST (17-59) U/L ALT (4-49) U/L Alkaline Phosphatase (38-126) U/L Troponin I 0.043 H* (0.000-0.034) ng/mL NT-Pro-B Natriuret Pep pg/mL Total Protein (6.3-8.2) g/dL Albumin (3.5-5.0) g/dL Influenza Type A (PCR) Not Detected (Not Detectd) Influenza Type B (PCR) Not Detected (Not Detectd) RSV (PCR) Not Detected (Not Detectd) SARS-CoV-2 (PCR) Not Detected (Not Detectd) 10/11/23 10/12/23 Range/Units 21:50 00:12 WBC (3.8-10.6) k/uL RBC (4.30-5.90) m/uL Hgb (13.0-17.5) gm/dL Hct (39.0-53.0) % MCV (80.0-100.0) fL MCH (25.0-35.0) pg MCHC (31.0-37.0) g/dL RDW (11.5-15.5) % Plt Count (150-450) k/uL MPV Neutrophils % % Lymphocytes % % Monocytes % % Eosinophils % % Basophils % % Neutrophils # (1.3-7.7) k/uL Lymphocytes # (1.0-4.8) k/uL Monocytes # (0-1.0) k/uL Eosinophils # (0-0.7) k/uL Basophils # (0-0.2) k/uL PT (10.0-12.5) sec INR (<1.2) APTT (22.0-30.0) sec Sodium (137-145) mmol/L Potassium (3.5-5.1) mmol/L Chloride (98-107) mmol/L Carbon Dioxide (22-30) mmol/L Anion Gap mmol/L BUN (9-20) mg/dL Creatinine (0.66-1.25) mg/dL Est GFR (CKD-EPI)AfAm (>60 ml/min/1.73 sqM) Est GFR (CKD-EPI)NonAf (>60 ml/min/1.73 sqM) Glucose (74-99) mg/dL Plasma Lactic Acid Felix (0.7-2.0) mmol/L Calcium (8.4-10.2) mg/dL Total Bilirubin (0.2-1.3) mg/dL AST (17-59) U/L ALT (4-49) U/L Alkaline Phosphatase (38-126) U/L Troponin I 0.043 H* (0.000-0.034) ng/mL NT-Pro-B Natriuret Pep 1790 pg/mL Total Protein (6.3-8.2) g/dL Albumin (3.5-5.0) g/dL Influenza Type A (PCR) (Not Detectd) Influenza Type B (PCR) (Not Detectd) RSV (PCR) (Not Detectd) SARS-CoV-2 (PCR) (Not Detectd) Disposition Clinical Impression: CHF exacerbation, Shortness of breath, Elevated troponin Disposition: ADMITTED IP TO THIS HOSP
[2023-10-11 21:01] LABS: ALT 20 U/L (4-49); AST 22 U/L (17-59); African American GFR (CKD) 61 (>60 ml/min/1.73 sqM); Alkaline Phosphatase 139 U/L (38-126); Anion Gap 12 mmol/L; Blood Urea Nitrogen 37 mg/dL (9-20); Calcium 9.4 mg/dL (8.4-10.2); Carbon Dioxide 23 mmol/L (22-30); Chloride 106 mmol/L (98-107); Glucose 236 mg/dL (74-99); Non-African American GFR(CKD) 53 (>60 ml/min/1.73 sqM); Potassium 4.4 mmol/L (3.5-5.1); Sodium 141 mmol/L (137-145); Total Bilirubin 0.9 mg/dL (0.2-1.3); Total Protein 7.6 g/dL (6.3-8.2)
[2023-10-11 21:07] LABS: Partial Thromboplastin Time 24.9 sec (22.0-30.0)
[2023-10-12] MEDS ORDERED: FUROSEMIDE 10 MG/ML 4 ML VIAL IV STA (00:07)
[2023-10-12] MEDS ORDERED: ONDANSETRON 4 MG/2 ML VIAL IVP PRN (00:45)
[2023-10-12] MEDS ORDERED: NALOXONE 0.4 MG/ML 1 ML VIAL IV PRN (00:45)
--- NOTE | 2023-10-12 03:46 | P.HPIM ---
History of Present Illness H&P Date: 10/12/23 Patient is a 78-year-old male with a PMH of CAD status post CABG, severe aortic stenosis, diastolic CHF, hypertension, hyperlipidemia, type II DM, PAD, dementia, and paroxysmal atrial flutter on Eliquis who presents to the emergency room with complaints of shortness of breath and lower extremity edema. Patient reports he has been experiencing these symptoms over the past 2-3 days. Does also report right upper quadrant/chest discomfort during this time, 5 out of 10 of maximal intensity, tight in nature, with no alleviating or exacerbating features, occurring constantly for the past few hours. He denied experiencing fever, chills, cough, nausea, vomiting, diaphoresis, or dizziness. In the emergency room a chest x-ray was consistent with CHF exacerbation. EKG revealed sinus rhythm at 74 bpm with LVH and poor R-wave progression. Laboratory evaluation is remarkable for troponin 0.043, proBNP 1790, with creatinine 1.30 and BUN 37. The patient's SpO2 upon arrival was 96% on room air. ED documentation reviewed and case discussed with ED provider. Review of systems: Pertinent positives and negatives as discussed in HPI, a complete review of systems was performed and all other systems are negative. Physical examination: Vital signs reviewed General: non toxic, no distress, appears at stated age, normal weight Derm: no unusual rashes/lesions, warm Head: atraumatic, normocephalic, symmetric Eyes: EOMI, no lid lag, anicteric sclera, pupils equal round reactive to light ENT: Nose and ears atraumatic Neck: No cervical lymphadenopathy, trachea midline, supple Mouth: no lip lesion, mucus membranes moist Cardiovascular: S1S2 reg, no murmur, positive dorsalis pedis pulse bilateral, 2+ robbi LE pitting edema with chronic venous stasis changes noted Lungs: Bibasilar rales without rhonchi or wheezing, no accessory muscle use Abdominal: soft, nontender to palpation, no guarding Ext: muscle strength 5 out of 5 in all 4 extremities grossly, no gross muscle atrophy, no contractures, Neuro: CN II-XI grossly intact, no gross focal neuro deficits Psych: Alert, oriented, appropriate affect Assessment: Acute diastolic CHF exacerbation SAMANTHA Troponin elevation, likely due to ongoing CHF exacerbation Chronic conditions: 2 DM, hypertension, hyperlipidemia, PAD, dementia, atrial fl utter Imaging: In the emergency room a chest x-ray was consistent with CHF exacerbation. EKG revealed sinus rhythm at 74 bpm with LVH and poor R-wave progressi Data Review: Laboratory evaluation is remarkable for troponin 0.043, proBNP 1790, with creatinine 1.30 and BUN 37. The patient's SpO2 upon arrival was 96% on room air. Plan: Continue with Lasix 40 mg IV every 12 hourly Cardiac monitoring Intake and output/daily weights Cardiology consulted Monitor BMP Trend troponin Obtain RUQ US Obtain Echocardiogram Resume home meds once reconciled DVT prophylaxis: Eliquis The patient is admitted with an anticipated greater than 2 midnight stay for evaluation of CHF exacerbation CODE STATUS: Full Code Discussed with: Patient Anticipated discharge place: Home Past Medical History Past Medical History: Coronary Artery Disease (CAD), Heart Failure, Dementia, Diabetes Mellitus, GERD/Reflux, Hyperlipidemia, Hypertension, Memory Impairment, Myocardial Infarction ([place]), Neurologic Disorder, Osteoarthritis (OA), Pneumonia, Prostate Disorder, Vascular Disorder Additional Past Medical History / Comment(s): See Dr Hodges's H&P. Hx falls and diarrhea/incontinence since diagnosed with Covid Oct 2022, daughter thinks he may have had a minor heart attack when he had Covid as well. 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 "Beginnings" of dementia. PAD, BPH, chronic back pain, hx bronchitis, sinus issues. Last Myocardial Infarction Date:: 2014 History of Any Multi-Drug Resistant Organisms: None Reported Past Surgical History: Coronary Bypass/CABG, Orthopedic Surgery Additional Past Surgical History / Comment(s): 2014 CABG 4 vessel/bioprosthetic aortic valve, angiograms, aortagram with bilateral run-offs, PTBA/atherectomy L leg, L foot surgery for crush injury, colonoscopy, bilateral cataract removals. Past Anesthesia/Blood Transfusion Reactions: No Reported Reaction Past Psychological History: Anxiety, Depression Smoking Status: Never smoker Past Alcohol Use History: Heavy Past Drug Use History: None Reported - Past Family History Father History Unknown: Yes Family Medical History: Congestive Heart Failure (CHF) Mother History Unknown: Yes Family Medical History: Congestive Heart Failure (CHF) Medications and Allergies Home Medications Medication Instructions Recorded Confirmed Type Omeprazole [PriLOSEC] 20 mg PO DAILY 02/23/15 07/21/23 History Donepezil [Aricept] 10 mg PO HS #30 03/13/15 07/21/23 Rx Metoprolol Succinate (ER) [Toprol 50 mg PO DAILY 03/07/17 07/21/23 History XL] Tamsulosin HCl [Flomax] 0.4 mg PO DAILY 03/07/17 07/21/23 History Insulin Aspart [NovoLOG Flexpen] See Protocol SQ TID-W/MEALS 11/08/19 07/21/23 History Clopidogrel [Plavix] 75 mg PO DAILY 01/21/20 07/21/23 History Amitriptyline HCl [Elavil] 25 mg PO HS 03/16/22 07/21/23 History Oxybutynin Chloride [oxyBUTYnin 10 mg PO DAILY 03/16/22 07/21/23 History chloride ER] Potassium Chloride ER [K-Dur 10] 10 meq PO HS 03/16/22 07/21/23 History Insulin Glargine,Hum.rec.anlog 56 unit SQ W/LUNCH 04/05/22 07/21/23 History [Lantus Solostar Pen] amLODIPine [Norvasc] 5 mg PO DAILY 02/21/23 07/21/23 History Albuterol Nebulized [Ventolin 2.5 mg INHALATION RT-QID PRN 04/16/23 07/21/23 History Nebulized] Fluticasone Nasal [place] [Flonase 2 spr EA NOSTRIL DAILY PRN 04/16/23 07/21/23 History Nasal [place]] Atorvastatin [Lipitor] 80 mg PO HS 05/11/23 07/21/23 History Cholecalciferol [Vitamin D3 (125 125 mcg PO HS 05/11/23 07/21/23 History Mcg = 5000 Iu)] Furosemide [Lasix] 40 mg PO DAILY 05/11/23 07/21/23 History lisinopriL [Zestril] 2.5 mg PO DAILY 05/11/23 07/21/23 History Apixaban [Eliquis] 5 mg PO BID 07/21/23 07/21/23 History Semaglutide [Ozempic] 0.5 mg SQ FR 07/21/23 07/21/23 History guaiFENesin [Mucinex] 600 mg PO Q12HR 7 Days #14 tab 07/22/23 Rx Allergies Allergy/AdvReac Type Severity Reaction Status Date / Time No Known Allergies Allergy Verified 07/21/23 11:44 Physical Exam Vitals: Vital Signs Temp Pulse Resp BP Pulse Ox 10/12/23 02:52 74 16 123/61 99 10/12/23 01:27 59 L 16 123/61 97 10/12/23 00:40 58 L 31 H 123/61 97 10/11/23 19:41 98.8 F 66 20 134/64 96 Intake and Output 10/11/23 10/11/23 10/12/23 14:59 22:59 06:59 Other: Weight 104.326 kg Results CBC & Chem 7: 10/11/23 19:48 10/11/23 19:48 Labs: Abnormal Lab Results - Last 24 Hours (Table) 10/11/23 10/11/23 10/12/23 Range/Units 19:48 19:48 00:12 BUN 37 H (9-20) mg/dL Creatinine 1.30 H (0.66-1.25) mg/dL Glucose 236 H (74-99) mg/dL Alkaline Phosphatase 139 H (38-126) U/L Troponin I 0.043 H* 0.043 H* (0.000-0.034) ng/mL
[2023-10-12 06:31] LABS: African American GFR (CKD) 68 (>60 ml/min/1.73 sqM); Anion Gap 13 mmol/L; Blood Urea Nitrogen 39 mg/dL (9-20); Calcium 9.6 mg/dL (8.4-10.2); Carbon Dioxide 23 mmol/L (22-30); Chloride 105 mmol/L (98-107); Glucose 165 mg/dL (74-99); Non-African American GFR(CKD) 59 (>60 ml/min/1.73 sqM); Potassium 4.3 mmol/L (3.5-5.1); Sodium 141 mmol/L (137-145)
[2023-10-12 06:54] LABS: Glucose,Whole Blood 164 mg/dL (70-110)
--- NOTE | 2023-10-12 07:33 | US ---
EXAMINATION TYPE: US gallbladder DATE OF EXAM: 10/12/2023 COMPARISON: None CLINICAL INDICATION: Male, 78 years old with history of RUQ pain; PAIN TECHNIQUE: Multiple sonographic images of the right upper quadrant are obtained. FINDINGS: EXAM MEASUREMENTS: Liver Length: 17.6 cm Gallbladder Wall: 0.3 cm CBD: 0.4 cm Right Kidney: 10.4 x 5.0 x 5.1 cm SPAGHETTI PRESS HELPER NOTES: Large pt body habitus, limited mobility, overlying bowel content- difficult to s can Pancreas: Obscured by bowel gas Liver: Limited views/evaluation, only visualized intercostally Gallbladder: Possible 1.1 stone within neck, pt unable to roll to LLD position. No hydropic gallblad erika change, surrounding fluid, or evident wall thickening. Evidence for sonographic Zimmerman's sign: No CBD: wnl Right Kidney: No evidence of hydro, lower pole gassed out IMPRESSION: Very limited exam due to patient's mobility, bowel gas, and large body habitus. Unable to adequately assess the liver or pancreas. There may be a 1.1 cm gallstone. No biliary ductal dilatation.
[2023-10-12] MEDS: INSULIN ASPART (NovoLOG) 100 UNIT/ML VIAL SQ SCH ×4 (07:37→21:40)
[2023-10-12] MEDS: FUROSEMIDE 10 MG/ML 4 ML VIAL IV SCH ×4 (07:38→22:30)
[2023-10-12 07:46] LABS: Glucose,Whole Blood 171 mg/dL (70-110)
[2023-10-12] MEDS ORDERED: FLUTICASONE 50MCG/SPRAY NASAL 16GM EA NOSTRIL PRN (07:54)
[2023-10-12] MEDS ORDERED: ALBUTEROL NEBULIZED 2.5 MG/3 ML INHALATION PRN (07:54)
[2023-10-12] MEDS ORDERED: METOPROLOL SUCCINATE (ER) 50 MG TAB.ER.24H PO SCH (09:00)
[2023-10-12] MEDS: OXYBUTYNIN 10 MG TAB.ER.24 PO SCH (09:38)
[2023-10-12] MEDS: APIXABAN 5 MG TAB PO SCH ×2 (09:38→21:40)
[2023-10-12] MEDS: CLOPIDOGREL 75 MG TAB PO SCH (09:38)
[2023-10-12] MEDS: PANTOPRAZOLE 40 MG TABLET PO SCH (09:38)
[2023-10-12] MEDS: TAMSULOSIN 0.4 MG CAP.ER.24H PO SCH (09:38)
[2023-10-12] MEDS: amLODIPine 5 MG TAB PO SCH (09:38)
[2023-10-12 12:36] LABS: Glucose,Whole Blood 308 mg/dL (70-110)
[2023-10-12] MEDS: INSULIN DETEMIR (LEVEMIR) 100 UNIT/ML SYR SQ SCH (13:07)
--- NOTE | 2023-10-12 15:34 | P.PN ---
Subjective Progress Note Date: 10/12/23 Hospital course: Patient is a very pleasant 78-year-old male with a past medical history of coronary artery disease status post CABG and bioprosthetic severe aortic stenosis status post aortic valve replacement, HFpEF, hypertension, hyperlipidemia, insulin-dependent diabetes mellitus, GERD, BPH, history of subdural hematoma with memory impairment/dementia, and peripheral arterial di sease with chronic wounds. He presented to the emergency department overnight with a chief complaint of shortness of breath and worsening lower extremity edema. He underwent full evaluation in the emergency department. Vital signs upon arrival blood pressure 134/64, heart rate 66, respiratory rate 20, temp 98.8F, SpO2 of 96% on room air. EKG showing sinus rhythm at 74 bpm with left ventricular hypertrophy. Labs completed and reviewed. CBC and coagulation profile unremarkable. BMP revealing acute kidney injury with BUN of 37, creatinine 1.30, and GFR 53 with baseline creatinine of 0.9. Troponin was elevated at 0.043. BNP elevated at 1790. Influenza A, influenza B, RSV, and Covid PCR were negative. Chest x-ray revealing cardiomegaly with pulmonary vascular congestion and left pleural effusions consistent with congestive heart failure. Patient was admitted under our services with consultation to cardiology. Troponins trended overnight resulting and 0.043, 0.043, and 0.040. Physical exam: Vital signs reviewed and stable. General: Nontoxic, no distress and appears stated age. Derm: Skin warm and dry, normal coloration for ethnicity. Head: Atraumatic, normocephalic and symmetric. Eyes: EOMs intact, no lid lag, and anicteric sclera Mouth: no lip lesions, mucus membranes moist Cardiovascular: regular rate and rhythm with normal S1S2, systolic murmur, positive posterior tibial pulses bilaterally, and cap refill < 2 seconds. Lungs: Respirations even, regular, and unlabored on room air. Lungs diminished with basilar crackles. No rhonchi, no rales, no wheezing, and no accessory muscle usage. Abdominal: soft, nontender to palpation, no guarding, no appreciable organomegaly Ext: ROM intact. No gross muscle atrophy, 2+ pitting bilateral lower extremity edema, no contractures Neuro: Speech clear, face symmetrical and CN II-XII grossly intact with no noted focal neuro deficits Psych: Alert and oriented to person, place, time, and situation. Appropriate and pleasant affect. Assessment and Plan of Care: Acute on chronic diastolic heart failure exacerbation Elevated troponins, flat secondary to CHF exacerbation History of CAD status post CABG Severe aortic stenosis status post bioprosthetic aortic valve replacement Hypertension Hyperlipidemia -Cardiology consulted, appreciate recommendations -Telemetry monitoring -Troponins trended overnight resulting and 0.043, 0.043, and 0.040. -ProBNP was elevated at 1790. -Daily weights -Close monitoring of I's and O's -Cardiac diet -Lasix 40 mg IVP every 12 hours -Reviewed and reordered home medications including cardiac medications of amlodipine 5 mg daily, Eliquis 5 mg twice daily, atorvastatin 80 mg nightly, Plavix 75 mg daily, lisinopril 2.5 mg daily, and metoprolol 50 mg daily. -Continued close monitoring of electrolytes while diuresing. Insulin-dependent diabetes mellitus with hyperglycemia -Glucose 171. Patient to continue with long-acting Levemir 56 units daily and was placed on glycemic protocol with NovoLog sliding scale. GERD -Continue home PPI with Protonix 40 mg daily. BPH -Continue daily medication regimen of Flomax 0.4 mg daily. History of subdural hematoma with memory impairment -Patient to continue with Aricept 10 mg nightly and to be provided with safe and supportive care including reorientation/redirection as needed. -Fall precautions to be maintained. Data and imaging reviewed: Morning labs completed and reviewed. Blood pressure 137/77, heart rate 72, respiratory rate 20, temp 98.5F, SpO2 98% on room air. Labs completed and reviewed. BMP revealing improvement of renal function with BUN of 39, creatinine 1.19, and GFR 59 however remains elevated with baseline creatinine of 0.9. 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 This document was prepared using [employer] dictation software. Please allow for errors in manager power, while rare they do occur. Bacilio Perrin NP rendered care for this patient independently, reviewed the findings and plan as documented in the note above. I did not physically speak with or examine the patient on this date. Objective - Vital Signs Vital signs: Vital Signs Temp 98.5 F 10/12/23 07:35 Pulse 72 10/12/23 07:35 Resp 20 10/12/23 07:35 BP 137/77 10/12/23 07:35 Pulse Ox 98 10/12/23 07:35 FiO2 Intake & Output 10/11/23 10/12/23 10/12/23 18:59 06:59 18:59 Output Total 250 610 Balance -250 -610 Weight 104.326 kg Output: Urine 250 610 - Labs CBC & Chem 7: 10/11/23 19:48 10/12/23 05:25 Labs: Abnormal Lab Results - Last 24 Hours (Table) 10/11/23 10/11/23 10/12/23 Range/Units 19:48 19:48 00:12 BUN 37 H (9-20) mg/dL Creatinine 1.30 H (0.66-1.25) mg/dL Glucose 236 H (74-99) mg/dL POC Glucose (mg/dL) (70-110) mg/dL Alkaline Phosphatase 139 H (38-126) U/L Troponin I 0.043 H* 0.043 H* (0.000-0.034) ng/mL 10/12/23 10/12/23 10/12/23 Range/Units 05:25 05:25 06:53 BUN 39 H (9-20) mg/dL Creatinine (0.66-1.25) mg/dL Glucose 165 H (74-99) mg/dL POC Glucose (mg/dL) 164 H (70-110) mg/dL Alkaline Phosphatase (38-126) U/L Troponin I 0.040 H* (0.000-0.034) ng/mL 10/12/23 Range/Units 07:34 BUN (9-20) mg/dL Creatinine (0.66-1.25) mg/dL Glucose (74-99) mg/dL POC Glucose (mg/dL) 171 H (70-110) mg/dL Alkaline Phosphatase (38-126) U/L Troponin I (0.000-0.034) ng/mL
[2023-10-12 17:13] LABS: Glucose,Whole Blood 226 mg/dL (70-110)
--- NOTE | 2023-10-12 18:05 | P.CRDCN ---
History of Present Illness Consult date: 10/12/23 Chief complaint: Shortness of breath History of present illness: The patient is a pleasant 78-year-old gentleman who is known to our service from before with a past medical history significant for valvular heart disease/aortic stenosis as well as paroxysmal atrial fibrillation as well as coronary artery disease status post CABG with RIVERA into LAD and known occluded SVG to the diagonal and patent SVG to OM and patent SVG to RCA as well as hypertension and dyslipidemia and underlying dementia. The patient is a poor historian. He was brought by his daughter to the hospital because he was feeling weak and short of breath above the baseline and also was having bilateral lower extremity is edema. No symptoms of chest pain or chest discomfort and no dizziness or lightheadedness and no feeling of heart racing or fluttering and no presyncope or syncope. Further workup was performed including an EKG initially showed sinus mechanism with second degree type I AV block and the second one showed only sinus mechanism only. Troponin came in to be slightly elevated but not consistent with acute coronary syndrome. The chest x-ray showed findings consistent with congestive heart failure. NT proBNP came in to be elevated. The patient was admitted to the hospital and he was started on Lasix. He is feeling slightly better. Examination is remarkable for bilateral lower extremities edema with diminished breathing sounds bilaterally and regular rhythm with a systolic murmur at the right and left upper sternal border Assessment Heart failure related to heart failure with preserved ejection fraction Valvular heart disease/aortic stenosis Paroxysmal atrial fibrillation Underlying dementia Multiple comorbid conditions including hypertension and dyslipidemia Coronary artery disease p Hdz Agree about continue the Lasix for additional 24 hours Monitor the kidney function and electrolytes An echocardiogram was ordered will follow-up with that Follow-up with the patient Past Medical History Past Medical History: Coronary Artery Disease (CAD), Heart Failure, Dementia, Diabetes Mellitus, GERD/Reflux, Hyperlipidemia, Hypertension, Memory Impairment, Myocardial Infarction ([place]), Neurologic Disorder, Osteoarthritis (OA), Pneumonia, Prostate Disorder, Vascular Disorder Additional Past Medical History / Comment(s): See Dr Hodges's H&P. Hx falls and diarrhea/incontinence since diagnosed with Covid Oct 2022, daughter thinks he may have had a minor heart attack when he had Covid as well. 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 "Beginnings" of dementia. PAD, BPH, chronic back pain, hx bronchitis, sinus issues. Last Myocardial Infarction Date:: 2014 History of Any Multi-Drug Resistant Organisms: None Reported Past Surgical History: Coronary Bypass/CABG, Orthopedic Surgery Additional Past Surgical History / Comment(s): 2014 CABG 4 vessel/bioprosthetic aortic valve, angiograms, aortagram with bilateral run-offs, PTBA/atherectomy L leg, L foot surgery for crush injury, colonoscopy, bilateral cataract removals. Past Anesthesia/Blood Transfusion Reactions: No Reported Reaction Past Psychological History: Anxiety, Depression Additional Psychological History / Comment(s): Pt has a lashanda, Rhoda, currently residing with him. His lashanda, Sagrario, lives near and assists with his care, she manages his medications/checks blood sugar and gives him his insulin as well as assists with getting him meals. His lashanda, Medina drives him to [employer] 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 Pt has PT/OT but lashanda cannot recall name of company. They are planning to hire someone to assist pt 3 days a week with ADLs/etc. Smoking Status: Never smoker Past Alcohol Use History: Heavy Additional Past Alcohol Use History / Comment(s): Pt was a heavy drinker in the past but has not drank in 15-20+ years. Past Drug Use History: None Reported - Past Family History Father History Unknown: Yes Family Medical History: Congestive Heart Failure (CHF) Mother History Unknown: Yes Family Medical History: Congestive Heart Failure (CHF) Medications and Allergies Home Medications Medication Instructions Recorded Confirmed Type Omeprazole [PriLOSEC] 20 mg PO DAILY 02/23/15 10/12/23 History Donepezil [Aricept] 10 mg PO HS #30 03/13/15 10/12/23 Rx Metoprolol Succinate (ER) [Toprol 50 mg PO DAILY 03/07/17 10/12/23 History XL] Tamsulosin HCl [Flomax] 0.4 mg PO DAILY 03/07/17 10/12/23 History Insulin Aspart [NovoLOG Flexpen] See Protocol SQ TID-W/MEALS 11/08/19 10/12/23 History Clopidogrel [Plavix] 75 mg PO DAILY 01/21/20 10/12/23 History Amitriptyline HCl [Elavil] 25 mg PO HS 03/16/22 10/12/23 History Oxybutynin Chloride [oxyBUTYnin 10 mg PO DAILY 03/16/22 10/12/23 History chloride ER] Potassium Chloride ER [K-Dur 10] 10 meq PO HS 03/16/22 10/12/23 History Insulin Glargine,Hum.rec.anlog 56 unit SQ W/LUNCH 04/05/22 10/12/23 History [Lantus Solostar Pen] amLODIPine [Norvasc] 5 mg PO DAILY 02/21/23 10/12/23 History Albuterol Nebulized [Ventolin 2.5 mg INHALATION RT-QID PRN 04/16/23 10/12/23 History Nebulized] Fluticasone Nasal [place] [Flonase 2 spr EA NOSTRIL DAILY PRN 04/16/23 10/12/23 History Nasal [place]] Atorvastatin [Lipitor] 80 mg PO HS 05/11/23 10/12/23 History Cholecalciferol [Vitamin D3 (125 125 mcg PO HS 05/11/23 10/12/23 History Mcg = 5000 Iu)] Furosemide [Lasix] 40 mg PO DAILY 05/11/23 10/12/23 History lisinopriL [Zestril] 2.5 mg PO DAILY 05/11/23 10/12/23 History Apixaban [Eliquis] 5 mg PO BID 07/21/23 10/12/23 History Semaglutide [Ozempic] 0.5 mg SQ FR 07/21/23 10/12/23 History guaiFENesin [Mucinex] 600 mg PO Q12HR 7 Days #14 tab 07/22/23 10/12/23 Rx Allergies Allergy/AdvReac Type Severity Reaction Status Date / Time No Known Allergies Allergy Verified 10/12/23 13:33 Physical Exam Vitals: Vital Signs Temp Pulse Pulse Resp BP BP Pulse Ox 10/12/23 17:44 97.7 F 75 18 101/67 98 10/12/23 09:00 75 16 142/69 96 10/12/23 07:35 98.5 F 72 20 137/77 98 10/12/23 06:48 97.6 F 66 18 125/54 99 10/12/23 04:00 16 10/12/23 03:52 70 16 122/68 97 10/12/23 02:52 74 16 99 10/12/23 01:27 60 16 97 10/12/23 00:40 58 L 31 H 123/61 97 10/11/23 19:41 98.8 F 66 20 134/64 96 Intake and Output 10/12/23 10/12/23 10/12/23 06:59 14:59 22:59 Intake Total 240 Output Total 250 860 300 Balance -250 -860 -60 Intake: Oral 240 Output: Urine 250 860 300 Other: Weight 104.326 kg Results 10/11/23 19:48 10/12/23 05:25 Cardiac Enzymes 10/11/23 10/11/23 10/12/23 Range/Units 19:48 19:48 00:12 AST 22 (17-59) U/L Troponin I 0.043 H* 0.043 H* (0.000-0.034) ng/mL 10/12/23 10/12/23 Range/Units 05:25 08:10 AST (17-59) U/L Troponin I 0.040 H* 0.033 (0.000-0.034) ng/mL Coagulation 10/11/23 Range/Units 19:48 PT 11.0 (10.0-12.5) sec APTT 24.9 (22.0-30.0) sec CBC 10/11/23 Range/Units 19:48 WBC 8.3 (3.8-10.6) k/uL RBC 5.31 (4.30-5.90) m/uL Hgb 14.1 (13.0-17.5) gm/dL Hct 43.7 (39.0-53.0) % Plt Count 222 (150-450) k/uL Comprehensive Metabolic Panel 10/11/23 10/12/23 Range/Units 19:48 05:25 Sodium 141 141 (137-145) mmol/L Potassium 4.4 4.3 (3.5-5.1) mmol/L Chloride 106 105 (98-107) mmol/L Carbon Dioxide 23 23 (22-30) mmol/L BUN 37 H 39 H (9-20) mg/dL Creatinine 1.30 H 1.19 (0.66-1.25) mg/dL Glucose 236 H 165 H (74-99) mg/dL Calcium 9.4 9.6 (8.4-10.2) mg/dL AST 22 (17-59) U/L ALT 20 (4-49) U/L Alkaline Phosphatase 139 H (38-126) U/L Total Protein 7.6 (6.3-8.2) g/dL Albumin 4.0 (3.5-5.0) g/dL Current Medications Generic Name Dose Route Start Last Admin Trade Name Freq PRN Reason Stop Dose Admin Acetaminophen 650 mg 10/12/23 00:45 Acetaminophen Tab 325 Mg Tab PO Q6HR PRN Mild Pain or Fever > 100.5 Albuterol Sulfate 2.5 mg 10/12/23 07:54 Albuterol Nebulized 2.5 Mg/3 Ml INHALATION RT-QID PRN Shortness Of Breath Amitriptyline HCl 25 mg 10/12/23 21:00 Amitriptyline Hcl 25 Mg Tab PO HS MELINA Amlodipine Besylate 5 mg 10/12/23 09:00 10/12/23 09:38 Amlodipine 5 Mg Tab PO 5 mg DAILY MELINA Administration Apixaban 5 mg 10/12/23 09:00 10/12/23 09:38 Apixaban 5 Mg Tab PO 5 mg BID MELINA Administration Protocol Atorvastatin Calcium 80 mg 10/12/23 21:00 Atorvastatin 80 Mg Tab PO HS MELINA Clopidogrel Bisulfate 75 mg 10/12/23 09:00 10/12/23 09:38 Clopidogrel 75 Mg Tab PO 75 mg DAILY MELINA Administration Donepezil HCl 10 mg 10/12/23 21:00 Donepezil 10 Mg Tab PO HS MELINA Fluticasone Propionate 2 spray 10/12/23 07:54 Fluticasone 50mcg/[place] Nasal 16gm EA NOSTRIL DAILY PRN Nasal Congestion Furosemide 40 mg 10/12/23 09:00 10/12/23 07:38 Furosemide 10 Mg/Ml 4 Ml Vial IV 40 mg Q12HR MELINA Administration Insulin Aspart 0 unit 10/12/23 07:30 10/12/23 17:20 Insulin Aspart (Novolog) 100 Unit/Ml Vial SQ 4 unit ACHS MELINA Administration Protocol Insulin Detemir 56 unit 10/12/23 12:30 10/12/23 13:07 Insulin Detemir (Levemir) 100 Unit/Ml Syr SQ 56 unit W/LUNCH MELINA Administration Lisinopril 2.5 mg 10/12/23 09:00 10/12/23 09:38 Lisinopril 2.5 Mg Tab PO 2.5 mg DAILY MELINA Administration Metoprolol Succinate 50 mg 10/12/23 09:00 10/12/23 09:38 Metoprolol Succinate (Er) 50 Mg Tab.Er.24h PO 50 mg DAILY MELINA Administration Naloxone HCl 0.2 mg 10/12/23 00:45 Naloxone 0.4 Mg/Ml 1 Ml Vial IV Q2M PRN Opioid Reversal Ondansetron HCl 4 mg 10/12/23 00:45 Ondansetron 4 Mg/2 Ml Vial IVP Q8HR PRN Nausea And Vomiting Oxybutynin Chloride 10 mg 10/12/23 09:00 10/12/23 09:38 Oxybutynin 10 Mg Tab.Er.24 PO 10 mg DAILY MELINA Administration Pantoprazole Sodium 40 mg 10/12/23 09:00 10/12/23 09:38 Pantoprazole 40 Mg Tablet PO 40 mg DAILY@0730 MELINA Administration Tamsulosin HCl 0.4 mg 10/12/23 09:00 10/12/23 09:38 Tamsulosin 0.4 Mg Cap.Er.24h PO 0.4 mg DAILY MELINA Administration Intake and Output 10/12/23 10/12/23 10/12/23 06:59 14:59 22:59 Intake Total 240 Output Total 250 860 300 Balance -250 -860 -60 Intake: Oral 240 Output: Urine 250 860 300 Other: Weight 104.326 kg Patient Weight 10/13/23 06:59 Weight 104.326 kg 10/11/23 19:48 10/12/23 05:25
[2023-10-12 21:19] LABS: Glucose,Whole Blood 362 mg/dL (70-110)
[2023-10-12] MEDS: ATORVASTATIN 80 MG TAB PO SCH (21:40)
[2023-10-12] MEDS: DONEPEZIL 10 MG TAB PO SCH (21:40)
[2023-10-12] MEDS: AMITRIPTYLINE HCL 25 MG TAB PO SCH (21:41)
[2023-10-12] MEDS: ACETAMINOPHEN TAB 325 MG TAB PO PRN (23:38)
[2023-10-13 05:42] LABS: Glucose,Whole Blood 235 mg/dL (70-110)
[2023-10-13] MEDS: FUROSEMIDE 10 MG/ML 4 ML VIAL IV SCH ×2 (05:52→16:52)
[2023-10-13] MEDS: INSULIN ASPART (NovoLOG) 100 UNIT/ML VIAL SQ SCH ×4 (06:25→20:48)
[2023-10-13] MEDS: PANTOPRAZOLE 40 MG TABLET PO SCH (06:25)
--- NOTE | 2023-10-13 08:55 | P.PN ---
Subjective Progress Note Date: 10/13/23 Principal diagnosis: Heart failure The patient is a pleasant 78-year-old gentleman who is known to our service from before with a past medical history significant for valvular heart disease/aortic stenosis as well as paroxysmal atrial fibrillation as well as coronary artery disease status post CABG with RIVERA into LAD and known occluded SVG to the diagonal and patent SVG to OM and patent SVG to RCA as well as hypertension and dyslipidemia and underlying dementia. The patient is a poor historian. He was brought by his daughter to the hospital because he was feeling weak and short of breath above the baseline and also was having bilateral lower extremity is edema. No symptoms of chest pain or chest discomfort and no dizziness or lightheadedness and no feeling of heart racing or fluttering and no presyncope or syncope. Further workup was performed including an EKG initially showed sinus mechanism with second degree type I AV block and the second one showed only sinus mechanism only. Troponin came in to be slightly elevated but not consistent with acute coronary syndrome. The chest x-ray showed findings consistent with congestive heart failure. NT proBNP came in to be elevated. The patient was admitted to the hospital and he was started on Lasix. He is fe eling slightly better. Examination is remarkable for bilateral lower extremities edema with diminished breathing sounds bilaterally and regular rhythm with a systolic murmur at the right and left upper sternal border 10/13/2023 The patient was seen and evaluated this morning. He is feeling slightly better. The shortness of breath and lower extremities edema has improved. No pain in the chest. Hemodynamically is a slightly having borderline low blood pressure and heart rate and he did have an episode of second-degree type I AV block with Wenckebach. I'm going to stop the beta sera at this point I would advise continue monitoring the patient for additional 24 hours. Assessment Heart failure related to heart failure with preserved ejection fraction Valvular heart disease/aortic stenosis Paroxysmal atrial fibrillation Underlying dementia Multiple comorbid conditions including hypertension and dyslipidemia Coronary artery disease p Hdz DC metoprolol Agree about continue the Lasix for additional 24 hours Monitor the kidney function and electrolytes An echocardiogram was ordered will follow-up with that Follow-up with the patient Objective - Vital Signs Vital signs: Vital Signs Temp 98 F 10/13/23 08:00 Pulse 51 L 10/13/23 08:00 Resp 18 10/13/23 08:00 BP 106/65 10/13/23 08:00 Pulse Ox 100 10/13/23 08:00 FiO2 Intake & Output 10/12/23 10/13/23 10/13/23 18:59 06:59 18:59 Intake Total 240 110 Output Total 1160 200 Balance -920 -200 110 Weight 104.326 kg 98.9 kg Intake: Oral 240 110 Output: Urine 1160 200 Other: Voiding Method Toilet Toilet Urinal Urinal - Labs CBC & Chem 7: 10/11/23 19:48 10/12/23 05:25 Labs: Abnormal Lab Results - Last 24 Hours (Table) 10/12/23 10/12/23 10/12/23 Range/Units 12:34 17:12 20:59 POC Glucose (mg/dL) 308 H 226 H 362 H (70-110) mg/dL 10/13/23 Range/Units 05:40 POC Glucose (mg/dL) 235 H (70-110) mg/dL
[2023-10-13 09:39] LABS: HCT 40.8 % (39.0-53.0); HGB 13.3 gm/dL (13.0-17.5); MCH 27.1 pg (25.0-35.0); MCHC 32.7 g/dL (31.0-37.0); Mean Platelet Volume 7.3; Platelet Count 193 k/uL (150-450); RBC 4.91 m/uL (4.30-5.90); WBC 8.3 k/uL (3.8-10.6)
[2023-10-13 09:55] LABS: ALT 17 U/L (4-49); AST 20 U/L (17-59); African American GFR (CKD) 52 (>60 ml/min/1.73 sqM); Albumin 3.4 g/dL (3.5-5.0); Alkaline Phosphatase 120 U/L (38-126); Anion Gap 14 mmol/L; Blood Urea Nitrogen 43 mg/dL (9-20); Calcium 8.6 mg/dL (8.4-10.2); Carbon Dioxide 21 mmol/L (22-30); Chloride 102 mmol/L (98-107); Glucose 242 mg/dL (74-99); Magnesium 2.2 mg/dL (1.6-2.3); Non-African American GFR(CKD) 45 (>60 ml/min/1.73 sqM); Potassium 3.8 mmol/L (3.5-5.1); Sodium 137 mmol/L (137-145); Total Bilirubin 0.8 mg/dL (0.2-1.3); Total Protein 6.7 g/dL (6.3-8.2)
[2023-10-13] MEDS: CLOPIDOGREL 75 MG TAB PO SCH (09:57)
[2023-10-13] MEDS: amLODIPine 5 MG TAB PO SCH (09:57)
[2023-10-13] MEDS: TAMSULOSIN 0.4 MG CAP.ER.24H PO SCH (09:57)
[2023-10-13] MEDS: APIXABAN 5 MG TAB PO SCH ×2 (09:57→20:45)
[2023-10-13] MEDS: OXYBUTYNIN 10 MG TAB.ER.24 PO SCH (09:58)
[2023-10-13] MEDS: ACETAMINOPHEN TAB 325 MG TAB PO PRN (10:00)
[2023-10-13 11:42] LABS: Glucose,Whole Blood 303 mg/dL (70-110)
[2023-10-13] MEDS: INSULIN DETEMIR (LEVEMIR) 100 UNIT/ML SYR SQ SCH (12:00)
--- NOTE | 2023-10-13 12:58 | P.PN ---
Subjective Progress Note Date: 10/13/23 Hospital course: Patient is a very pleasant 78-year-old male with a past medical history of coronary artery disease status post CABG and bioprosthetic severe aortic stenosis status post aortic valve replacement, HFpEF, hypertension, hyperlipidemia, insulin-dependent diabetes mellitus, GERD, BPH, history of subdural hematoma with memory impairment/dementia, and peripheral arterial disease with chronic wounds. He presented to the emergency department overnight with a chief complaint of shortness of breath and worsening lower extremity edema. He underwent full evaluation in the emergency department. Vital signs upon arrival blood pressure 134/64, heart rate 66, respiratory rate 20, temp 98.8F, SpO2 of 96% on room air. EKG showing sinus rhythm at 74 bpm with left ventricular hypertrophy. Labs completed and reviewed. CBC and coagulation profile unremarkable. BMP revealing acute kidney injury with BUN of 37, creatinine 1.30, and GFR 53 with baseline creatinine of 0.9. Troponin was elevated at 0.043. BNP elevated at 1790. Influenza A, influenza B, RSV, and Covid PCR were negative. Chest x-ray revealing cardiomegaly with pulmonary vascular congestion and left pleural effusions consistent with congestive heart failure. Patient was admitted under our services with consultation to cardiology. Troponins trended overnight resulting at 0.043, 0.043, and 0.040. Patient undergoing IV diuresis with Lasix. Repeat EKG completed this morning showing sinus bradycardia at 52 bpm with Mobitz type I heart block. Beta sera stopped at this time. Physical exam: Patient seen and fully evaluated at bedside this morning. Patient sitting up in chair with legs elevated at this time. He reports feeling better than he did upon arrival and states breathing seems to be better as he is able to walk to and from the bathroom today. EKG this morning showing patient now in Mobitz type I heart block at 52 bpm. Instructed RN to discontinue metoprolol at this time. Vital signs reviewed and stable. General: Nontoxic, no distress and appears stated age. Derm: Skin warm and dry, normal coloration for ethnicity. Head: Atraumatic, normocephalic and symmetric. Eyes: EOMs intact, no lid lag, and anicteric sclera Mouth: no lip lesions, mucus membranes moist Cardiovascular: Bradycardic rate regular rhythm with normal S1S2, systolic murmur, positive posterior tibial pulses bilaterally, and cap refill < 2 seconds. Lungs: Respirations even, regular, and unlabored on room air. Lungs diminished with soft basilar crackles. No rhonchi, no rales, no wheezing, and no accessory muscle usage. Abdominal: soft, nontender to palpation, no guarding, no appreciable organomegaly Ext: ROM intact. No gross muscle atrophy, 1-2+ pitting bilateral lower extremity edema, no contractures Neuro: Speech clear, face symmetrical and CN II-XII grossly intact with no noted focal neuro deficits Psych: Alert and oriented to person, place, time, and situation. Appropriate and pleasant affect. Assessment and Plan of Care: Acute on chronic diastolic heart failure exacerbation Elevated troponins, flat secondary to CHF exacerbation Type II AV block, Mobitz type I History of CAD status post CABG Severe aortic stenosis status post bioprosthetic aortic valve replacement Hypertension Hyperlipidemia -New onset Mobitz type I AV block, metoprolol discontinued. -Cardiology following, discussed plan of care with Dr. Hodges in agreement with continuation of Lasix for an additional 24 hours. -Patient to remain on continuous Telemetry monitoring -Daily weights -Close monitoring of I's and O's. Patient has had a documented 1360 mL of urinary output over the past 24 hours. -Continue Lasix 40 mg IVP every 12 hours -Reviewed and reordered home medications including cardiac medications of amlodipine 5 mg daily, Eliquis 5 mg twice daily, atorvastatin 80 mg nightly, Plavix 75 mg daily, and lisinopril 2.5 mg daily. -Continued close monitoring of electrolytes while diuresing. Insulin-dependent diabetes mellitus with hyperglycemia -Glucose 242. Patient to continue with long-acting Levemir 56 units daily and was placed on glycemic protocol with NovoLog sliding scale. GERD -Continue home PPI with Protonix 40 mg daily. BPH -Continue daily medication regimen of Flomax 0.4 mg daily. History of subdural hematoma with memory impairment -Patient to continue with Aricept 10 mg nightly and to be provided with safe and supportive care including reorientation/redirection as needed. -Fall precautions to be maintained. Data and imaging reviewed: Morning labs completed and reviewed. Blood pressure 106/65, heart rate 51, respiratory rate 18, temp 98.0F, SpO2 100% on room air. Labs completed and reviewed. CBC unremarkable. BMP showing slight elevation of renal function with BUN of 43, creatinine 1.49, GFR 45 likely secondary to diuresis we will monitor renal function closely with repeat morning BMP. CODE STATUS: Full code DVT prophylaxis: Doris Discussed with: Patient, RN, and wirer maintenance Anticipated discharge date: Clinical course to determine Discharge place: SNF Patient was seen independently by Nurse Pracitioner. This document was prepared using [employer] dictation software. Please allow for errors in brakeshoe repairer, while rare they do occur. Bacilio Perrin OPERATIVE SUPERVISOR rendered care for this patient independently, reviewed the findings and plan as documented in the note above. I did not physically speak with or examine the patient on this date. Objective - Vital Signs Vital signs: Vital Signs Temp 98 F 10/13/23 08:00 Pulse 51 L 10/13/23 08:00 Resp 18 10/13/23 08:00 BP 106/65 10/13/23 08:00 Pulse Ox 100 10/13/23 08:00 FiO2 Intake & Output 10/12/23 10/13/23 10/13/23 18:59 06:59 18:59 Intake Total 240 Output Total 1160 200 Balance -920 -200 Weight 104.326 kg 98.9 kg Intake: Oral 240 Output: Urine 1160 200 Other: Voiding Method Toilet Urinal - Labs CBC & Chem 7: 10/13/23 08:49 10/14/23 08:30 Labs: Abnormal Lab Results - Last 24 Hours (Table) 10/12/23 10/12/23 10/12/23 Range/Units 12:34 17:12 20:59 POC Glucose (mg/dL) 308 H 226 H 362 H (70-110) mg/dL 10/13/23 Range/Units 05:40 POC Glucose (mg/dL) 235 H (70-110) mg/dL
--- NOTE | 2023-10-13 14:12 | CA ---
Transthoracic Echo Report Name: Tim Coleman Age: 78 Gender: M : 1945 Exam Date: 10/12/2023 15:25 Exam Location: [place] [facility] Ht (in): 68 Wt (lb): 230 Ordering Physician: Wyatt Mathis MD Attending/Referring Phys: Admissions Manager Rn Gretchen Chu RDCS Procedure CPT: Indications: chf Cardiac Hx: Technical Quality: Technically difficult study Contrast 1: Definity Total Dose (mL): 1 Contrast 2: Total Dose (mL): MEASUREMENTS (Male / Female) Normal Values 2D ECHO LV Diastolic Diameter PLAX 5.9 cm 4.2 - 5.9 / 3.9 - 5.3 cm LV Systolic Diameter PLAX 4.2 cm IVS Diastolic Thickness 1.2 cm 0.6 - 1.0 / 0.6 - 0.9 cm LVPW Diastolic Thickness 1.4 cm 0.6 - 1.0 / 0.6 - 0.9 cm LV Relative Wall Thickness 0.4 RV Internal Dim ED PLAX 3.3 cm LVOT Diameter 2.1 cm LA Systolic Diameter LX 4.8 cm 3.0 - 4.0 / 2.7 - 3.8 cm LA Volume 91.2 cm??? 18 - 58 / 22 - 52 cm??? LA Volume Index 40.1 cm???/m??? 16 - 28 cm???/m??? M-MODE Aortic Root Diameter MM 3.0 cm AV Cusp Separation MM 1.8 cm DOPPLER AV Peak Velocity 300.9 cm/s AV Peak Gradient 36.2 mmHg AV Mean Velocity 217.8 cm/s AV Mean Gradient 21.5 mmHg AV Velocity Time Integral 75.4 cm LVOT Peak Velocity 60.0 cm/s LVOT Peak Gradient 1.4 mmHg AV Area Cont Eq pk 0.7 cm??? MV Area PHT 7.4 cm??? MV Deceleration Time 120.5 ms TR Peak Velocity 246.1 cm/s TR Peak Gradient 24.2 mmHg Right Ventricular Systolic Press 28.5 mmHg FINDINGS Left Ventricle Left ventricular ejection fraction is estimated at 35-40 %. Left ventricular cavity size normal uppear limits. Moderate concentric left ventricular hypertrophy. Right Ventricle Mild right ventricular dilatation. Right ventricular systolic pressure within normal limits. Right Atrium Right atrium not well visualized. Left Atrium Moderately increased left atrial diameter. Severely increased left atrial volume. Mildly increased left atrial area. Mitral Valve Mitral valve not well visualized. Mild mitral regurgitation. Mitral annular calcification. Aortic Valve Aortic valve not well visualized. Aortic valve sclerosis. Moderate aortic stenosis with a peak gradient of 36 mmHg and a mean gradient of 22 mmHg. Tricuspid Valve Tricuspid valve not well visualized. Mild tricuspid regurgitation. Pulmonic Valve Pulmonic valve not well visualized. No pulmonic regurgitation. Pericardium No pericardial effusion. Aorta Normal size aortic root and proximal ascending aorta. CONCLUSIONS Technically difficult study for interpretation Impaired LV function. The ejection fraction is 35-40% Aortic sclerosis with aortic stenosis at least moderate. The aortic stenosis severity could be underestimated due to impaired LV function Previewed by: Dr. Fernando Hodges MD (Electronically Signed) Final Date: 13 October 2023 14:11
[2023-10-13 16:12] LABS: Glucose,Whole Blood 423 mg/dL (70-110)
[2023-10-13 16:12] LABS: Glucose,Whole Blood 425 mg/dL (70-110)
[2023-10-13 20:16] LABS: Glucose,Whole Blood 341 mg/dL (70-110)
[2023-10-13] MEDS: AMITRIPTYLINE HCL 25 MG TAB PO SCH (20:46)
[2023-10-13] MEDS: DONEPEZIL 10 MG TAB PO SCH (20:46)
[2023-10-13] MEDS: ATORVASTATIN 80 MG TAB PO SCH (20:47)
[2023-10-14 06:02] LABS: Glucose,Whole Blood 159 mg/dL (70-110)
[2023-10-14] MEDS: PANTOPRAZOLE 40 MG TABLET PO SCH (06:14)
[2023-10-14] MEDS: INSULIN ASPART (NovoLOG) 100 UNIT/ML VIAL SQ SCH ×4 (06:14→20:16)
[2023-10-14] MEDS: FUROSEMIDE 10 MG/ML 4 ML VIAL IV SCH ×2 (06:14→18:46)
[2023-10-14] MEDS: CLOPIDOGREL 75 MG TAB PO SCH (08:39)
[2023-10-14] MEDS: APIXABAN 5 MG TAB PO SCH ×2 (08:39→20:16)
[2023-10-14] MEDS: OXYBUTYNIN 10 MG TAB.ER.24 PO SCH (08:39)
[2023-10-14] MEDS: amLODIPine 5 MG TAB PO SCH (08:39)
[2023-10-14] MEDS: TAMSULOSIN 0.4 MG CAP.ER.24H PO SCH (08:39)
--- NOTE | 2023-10-14 09:12 | P.PN ---
Subjective Progress Note Date: 10/14/23 Principal diagnosis: Heart failure The patient is a pleasant 78-year-old gentleman who is known to our service from before with a past medical history significant for valvular heart disease/aortic stenosis as well as paroxysmal atrial fibrillation as well as coronary artery disease status post CABG with RIVERA into LAD and known occluded SVG to the diagonal and patent SVG to OM and patent SVG to RCA as well as hypertension and dyslipidemia and underlying dementia. The patient is a poor historian. He was brought by his daughter to the hospital because he was feeling weak and short of breath above the baseline and also was having bilateral lower extremity is edema. No symptoms of chest pain or chest discomfort and no dizziness or lightheadedness and no feeling of heart racing or fluttering and no presyncope or syncope. Further workup was performed including an EKG initially showed sinus mechanism with second degree type I AV block and the second one showed only sinus mechanism only. Troponin came in to be slightly elevated but not consistent with acute coronary syndrome. The chest x-ray showed findings consistent with congestive heart failure. NT proBNP came in to be elevated. The patient was admitted to the hospital and he was started on Lasix. He is fe eling slightly better. Examination is remarkable for bilateral lower extremities edema with diminished breathing sounds bilaterally and regular rhythm with a systolic murmur at the right and left upper sternal border 10/13/2023 The patient was seen and evaluated this morning. He is feeling slightly better. The shortness of breath and lower extremities edema has improved. No pain in the chest. Hemodynamically is a slightly having borderline low blood pressure and heart rate and he did have an episode of second-degree type I AV block with Wenckebach. I'm going to stop the beta sera at this point I would advise continue monitoring the patient for additional 24 hours. 10/14/2023 The patient was seen and evaluated this morning. Overall is feeling better. The shortness of breath has improved. He still have mild lower extremity edema. No more episodes of bradycardia after we stopped the metoprolol. From the cardiac vascular standpoint of view, we will continue the current medical regimen, continue IV diuretics for additional 24 hours if the creatinine remains stable, consider switching the patient to oral diuretics tomorrow for possible discharge home tomorrow. The echo showed moderate aortic stenosis with impaired LV function. Examination is remarkable for chronic lower extremity skin changes and mild lower extremities edema was diminished breathing sounds bilaterally Assessment Heart failure related to heart failure with preserved ejection fraction Valvular heart disease/aortic stenosis Paroxysmal atrial fibrillation Cardiomyopathy Underlying dementia Multiple comorbid conditions including hypertension and dyslipidemia Coronary artery disease Hdz Avoid any AV nehemiah sera agents Continue IV Lasix for additional 24 hours if the creatinine remains stable Follow-up with the patient Objective - Vital Signs Vital signs: Vital Signs Temp 97.5 F L 10/14/23 08:37 Pulse 72 10/14/23 08:37 Resp 18 10/14/23 08:37 BP 132/62 10/14/23 08:37 Pulse Ox 94 L 10/14/23 08:37 FiO2 Intake & Output 10/13/23 10/14/23 10/14/23 18:59 06:59 18:59 Intake Total 330 10 Output Total 400 Balance 330 -400 10 Weight 99.2 kg Intake: IV 10 Invasive Line 1 10 Oral 330 Output: Urine 400 Other: Voiding Method Toilet Toilet Urinal Urinal # Voids 3 2 1 - Labs CBC & Chem 7: 10/13/23 08:49 10/13/23 08:49 Labs: Abnormal Lab Results - Last 24 Hours (Table) 10/13/23 10/13/23 10/13/23 Range/Units 08:49 11:36 16:09 Carbon Dioxide 21 L (22-30) mmol/L BUN 43 H (9-20) mg/dL Creatinine 1.49 H (0.66-1.25) mg/dL Glucose 242 H (74-99) mg/dL POC Glucose (mg/dL) 303 H 423 H (70-110) mg/dL Albumin 3.4 L (3.5-5.0) g/dL 10/13/23 10/13/23 10/14/23 Range/Units 16:10 20:14 06:01 Carbon Dioxide (22-30) mmol/L BUN (9-20) mg/dL Creatinine (0.66-1.25) mg/dL Glucose (74-99) mg/dL POC Glucose (mg/dL) 425 H 341 H 159 H (70-110) mg/dL Albumin (3.5-5.0) g/dL
[2023-10-14 09:24] LABS: African American GFR (CKD) 56 (>60 ml/min/1.73 sqM); Anion Gap 14 mmol/L; Blood Urea Nitrogen 44 mg/dL (9-20); Calcium 8.7 mg/dL (8.4-10.2); Carbon Dioxide 19 mmol/L (22-30); Chloride 101 mmol/L (98-107); Glucose 249 mg/dL (74-99); Magnesium 2.3 mg/dL (1.6-2.3); Non-African American GFR(CKD) 49 (>60 ml/min/1.73 sqM); Potassium 3.9 mmol/L (3.5-5.1); Sodium 134 mmol/L (137-145)
[2023-10-14 11:43] LABS: Glucose,Whole Blood 315 mg/dL (70-110)
[2023-10-14] MEDS: INSULIN DETEMIR (LEVEMIR) 100 UNIT/ML SYR SQ SCH (11:55)
--- NOTE | 2023-10-14 13:13 | P.PN ---
Subjective Progress Note Date: 10/14/23 Hospital course: Patient is a very pleasant 78-year-old male with a past medical history of coronary artery disease status post CABG and bioprosthetic severe aortic stenosis status post aortic valve replacement, HFpEF, hypertension, hyperlipidemia, insulin-dependent diabetes mellitus, GERD, BPH, history of subdural hematoma with memory impairment/dementia, and peripheral arterial disease with chronic wounds. He presented to the emergency department overnight with a chief complaint of shortness of breath and worsening lower extremity edema. He underwent full evaluation in the emergency department. Vital signs upon arrival blood pressure 134/64, heart rate 66, respiratory rate 20, temp 98.8F, SpO2 of 96% on room air. EKG showing sinus rhythm at 74 bpm with left ventricular hypertrophy. Labs completed and reviewed. CBC and coagulation profile unremarkable. BMP revealing acute kidney injury with BUN of 37, creatinine 1.30, and GFR 53 with baseline creatinine of 0.9. Troponin was elevated at 0.043. BNP elevated at 1790. Influenza A, influenza B, RSV, and Covid PCR were negative. Chest x-ray revealing cardiomegaly with pulmonary vascular congestion and left pleural effusions consistent with congestive heart failure. Patient was admitted under our services with consultation to cardiology. Troponins trended overnight resulting at 0.043, 0.043, and 0.040. Patient undergoing IV diuresis with Lasix. Repeat EKG completed on the morning of 10/13/23 showing sinus bradycardia at 52 bpm with Mobitz type I heart block. Beta sera stopped at this time. Physical exam: Patient seen and fully evaluated at bedside this morning. Patient sitting up in chair with legs elevated at this time. He reports feeling okay this morning, states about the same as he did yesterday. He currently reports feeling mild shortness of breath and pain in his legs but denies having any headache, lightheadedness, dizziness, chest pain, palpitations, nausea, vomiting, or any other complaints at this time. Vital signs reviewed and stable. General: Nontoxic, no distress and appears stated age. Derm: Skin warm and dry, normal coloration for ethnicity. Head: Atraumatic, normocephalic and symmetric. Eyes: EOMs intact, no lid lag, and anicteric sclera Mouth: no lip lesions, mucus membranes moist Cardiovascular: Bradycardic rate regular rhythm with normal S1S2, systolic murmur, positive posterior tibial pulses bilaterally, and cap refill < 2 seconds. Lungs: Respirations even, regular, and unlabored on room air. Lungs diminished No crackles, rhonchi, rales, or wheezing. No accessory muscle usage. Abdominal: soft, nontender to palpation, no guarding, no appreciable organomegaly Ext: ROM intact. No gross muscle atrophy, 1+ pitting bilateral lower extremity edema, no contractures Neuro: Speech clear, face symmetrical and CN II-XII grossly intact with no noted focal neuro deficits Psych: Alert and oriented to person, place, time, and situation. Appropriate and pleasant affect. Assessment and Plan of Care: Acute on chronic diastolic heart failure exacerbation Elevated troponins, flat secondary to CHF exacerbation Type II AV block, Mobitz type I History of CAD status post CABG Severe aortic stenosis status post bioprosthetic aortic valve replacement Hypertension Hyperlipidemia -New onset Mobitz type I AV block, metoprolol discontinued. -Cardiology following, discussed plan of care with Dr. Hodegs and he is recommending continuation of IV Lasix for an additional 24 hours. -Patient to remain on continuous Telemetry monitoring -Daily weights -Close monitoring of I's and O's. -Continue Lasix 40 mg IVP every 12 hours for an additional 24 hours and plan to transition to oral diuretic likely tomorrow -Patient otherwise to continue amlodipine 5 mg daily, Eliquis 5 mg twice daily, atorvastatin 80 mg nightly, Plavix 75 mg daily, and lisinopril 2.5 mg daily. -Continued close monitoring of electrolytes while diuresing. Insulin-dependent diabetes mellitus with hyperglycemia -Glucose 249. Patient to continue with long-acting Levemir 56 units daily and was placed on glycemic protocol with NovoLog sliding scale. GERD -Continue home PPI with Protonix 40 mg daily. BPH -Continue daily medication regimen of Flomax 0.4 mg daily. History of subdural hematoma with memory impairment -Patient to continue with Aricept 10 mg nightly and to be provided with safe and supportive care including reorientation/redirection as needed. -Fall precautions to be maintained. Data and imaging reviewed: Morning vitals completed and reviewed. Blood pressure 132/62, heart rate 72, respiratory rate 18, temperature 97.5F, and SpO2 of 94% on room air. Labs completed and reviewed. BMP revealing mild hyponatremia with sodium 134 and stable elevated renal function with BUN of 44, creatinine 1.40, GFR 49. CODE STATUS: Full code DVT prophylaxis: Doris Discussed with: Patient, RN, and metal off bearer Anticipated discharge date: Clinical course to determine, likely 24-[address]: Home with home care Patient was seen independently by Nurse Pracitioner. This document was prepared using [employer] dictation software. Please allow for errors in rectangular tank cooper, while rare they do occur. Bacilio Perrin NP rendered care for this patient independently, reviewed the findings and plan as documented in the note above. I did not physically speak with or examine the patient on this date. Objective - Vital Signs Vital signs: Vital Signs Temp 97.8 F 10/14/23 04:00 Pulse 77 10/14/23 04:00 Resp 19 10/14/23 04:00 BP 142/61 10/14/23 04:00 Pulse Ox 97 10/14/23 04:00 FiO2 Intake & Output 10/13/23 10/14/23 10/14/23 18:59 06:59 18:59 Intake Total 330 Output Total 400 Balance 330 -400 Weight 99.2 kg Intake: Oral 330 Output: Urine 400 Other: Voiding Method Toilet Toilet Urinal Urinal # Voids 3 2 - Labs CBC & Chem 7: 10/13/23 08:49 10/14/23 08:30 Labs: Abnormal Lab Results - Last 24 Hours (Table) 10/13/23 10/13/23 10/13/23 Range/Units 08:49 11:36 16:09 Carbon Dioxide 21 L (22-30) mmol/L BUN 43 H (9-20) mg/dL Creatinine 1.49 H (0.66-1.25) mg/dL Glucose 242 H (74-99) mg/dL POC Glucose (mg/dL) 303 H 423 H (70-110) mg/dL Albumin 3.4 L (3.5-5.0) g/dL 10/13/23 10/13/23 10/14/23 Range/Units 16:10 20:14 06:01 Carbon Dioxide (22-30) mmol/L BUN (9-20) mg/dL Creatinine (0.66-1.25) mg/dL Glucose (74-99) mg/dL POC Glucose (mg/dL) 425 H 341 H 159 H (70-110) mg/dL Albumin (3.5-5.0) g/dL
[2023-10-14 16:26] LABS: Glucose,Whole Blood 550 mg/dL (70-110)
[2023-10-14] MEDS ORDERED: INSULIN ASPART (NovoLOG) 100 UNIT/ML VIAL SQ ONE (16:45)
[2023-10-14 20:02] LABS: Glucose,Whole Blood 428 mg/dL (70-110)
[2023-10-14 20:02] LABS: Glucose,Whole Blood >600 mg/dL (70-110)
[2023-10-14] MEDS: DONEPEZIL 10 MG TAB PO SCH (20:16)
[2023-10-14] MEDS: ATORVASTATIN 80 MG TAB PO SCH (20:16)
[2023-10-14] MEDS: AMITRIPTYLINE HCL 25 MG TAB PO SCH (20:16)
[2023-10-15 06:16] LABS: Glucose,Whole Blood 266 mg/dL (70-110)
[2023-10-15] MEDS: FUROSEMIDE 10 MG/ML 4 ML VIAL IV SCH ×2 (06:20→16:50)
[2023-10-15] MEDS: PANTOPRAZOLE 40 MG TABLET PO SCH (06:20)
[2023-10-15] MEDS: INSULIN ASPART (NovoLOG) 100 UNIT/ML VIAL SQ SCH ×5 (06:21→20:13)
[2023-10-15] MEDS: amLODIPine 5 MG TAB PO SCH (08:24)
[2023-10-15] MEDS: OXYBUTYNIN 10 MG TAB.ER.24 PO SCH (08:24)
[2023-10-15] MEDS: CLOPIDOGREL 75 MG TAB PO SCH (08:25)
[2023-10-15] MEDS: TAMSULOSIN 0.4 MG CAP.ER.24H PO SCH (08:25)
[2023-10-15] MEDS: APIXABAN 5 MG TAB PO SCH ×2 (08:25→20:13)
[2023-10-15 08:31] LABS: African American GFR (CKD) 55 (>60 ml/min/1.73 sqM); Anion Gap 12 mmol/L; Blood Urea Nitrogen 49 mg/dL (9-20); Calcium 8.7 mg/dL (8.4-10.2); Carbon Dioxide 23 mmol/L (22-30); Chloride 102 mmol/L (98-107); Glucose 266 mg/dL (74-99); Magnesium 2.4 mg/dL (1.6-2.3); Non-African American GFR(CKD) 48 (>60 ml/min/1.73 sqM); Potassium 4.2 mmol/L (3.5-5.1); Sodium 137 mmol/L (137-145)
[2023-10-15 08:36] VITALS: RESP 18
--- NOTE | 2023-10-15 09:32 | P.PN ---
Subjective Progress Note Date: 10/15/23 Principal diagnosis: Heart failure The patient is a pleasant 78-year-old gentleman who is known to our service from before with a past medical history significant for valvular heart disease/aortic stenosis as well as paroxysmal atrial fibrillation as well as coronary artery disease status post CABG with RIVERA into LAD and known occluded SVG to the diagonal and patent SVG to OM and patent SVG to RCA as well as hypertension and dyslipidemia and underlying dementia. The patient is a poor historian. He was brought by his daughter to the hospital because he was feeling weak and short of breath above the baseline and also was having bilateral lower extremity is edema. No symptoms of chest pain or chest discomfort and no dizziness or lightheadedness and no feeling of heart racing or fluttering and no presyncope or syncope. Further workup was performed including an EKG initially showed sinus mechanism with second degree type I AV block and the second one showed only sinus mechanism only. Troponin came in to be slightly elevated but not consistent with acute coronary syndrome. The chest x-ray showed findings consistent with congestive heart failure. NT proBNP came in to be elevated. The patient was admitted to the hospital and he was started on Lasix. He is fe eling slightly better. Examination is remarkable for bilateral lower extremities edema with diminished breathing sounds bilaterally and regular rhythm with a systolic murmur at the right and left upper sternal border 10/13/2023 The patient was seen and evaluated this morning. He is feeling slightly better. The shortness of breath and lower extremities edema has improved. No pain in the chest. Hemodynamically is a slightly having borderline low blood pressure and heart rate and he did have an episode of second-degree type I AV block with Wenckebach. I'm going to stop the beta sera at this point I would advise continue monitoring the patient for additional 24 hours. 10/14/2023 The patient was seen and evaluated this morning. Overall is feeling better. The shortness of breath has improved. He still have mild lower extremity edema. No more episodes of bradycardia after we stopped the metoprolol. From the cardiac vascular standpoint of view, we will continue the current medical regimen, continue IV diuretics for additional 24 hours if the creatinine remains stable, consider switching the patient to oral diuretics tomorrow for possible discharge home tomorrow. The echo showed moderate aortic stenosis with impaired LV function. Examination is remarkable for chronic lower extremity skin changes and mild lower extremities edema was diminished breathing sounds bilaterally 10/15/2023 The patient was seen and evaluated this morning. He is congested. He is coughing. He is wheezing as well. From the cardiovascular standpoint of view, I would continue the current dose of IV Lasix for possible additional 24 hours. His creatinine has been stable. I would advise also giving the patient some breathing treatment. The examination is remarkable for bilateral expiratory wheezing and mild bilateral lower extremity edema Assessment Heart failure related to heart failure with preserved ejection fraction Valvular heart disease/aortic stenosis Paroxysmal atrial fibrillation Cardiomyopathy Underlying dementia Multiple comorbid conditions including hypertension and dyslipidemia Coronary artery disease Hdz Avoid any AV nehemiah sera agents Continue IV Lasix for additional 24 hours if the creatinine remains stable Monitor the kidney function and electrolytes Breathing treatment Follow-up with the patient Objective - Vital Signs Vital signs: Vital Signs Temp 98.3 F 10/15/23 08:18 Pulse 80 10/15/23 08:18 Resp 18 10/15/23 08:18 BP 130/77 10/15/23 08:18 Pulse Ox 98 10/15/23 08:18 FiO2 Intake & Output 10/14/23 10/15/23 10/15/23 18:59 06:59 18:59 Intake Total 1508 10 240 Output Total 900 800 750 Balance 608 -790 -510 Weight 98.9 kg Intake: IV 20 10 Invasive Line 1 20 10 Oral 924 240 Blood Product 564 Output: Urine 900 800 750 Other: Voiding Method Toilet Toilet Urinal Urinal # Voids 1 1 # Bowel Movements 1 - Labs CBC & Chem 7: 10/13/23 08:49 10/15/23 07:38 Labs: Abnormal Lab Results - Last 24 Hours (Table) 10/14/23 10/14/23 10/14/23 Range/Units 11:42 16:23 19:59 BUN (9-20) mg/dL Creatinine (0.66-1.25) mg/dL Glucose (74-99) mg/dL POC Glucose (mg/dL) 315 H 550 H >600 H (70-110) mg/dL Magnesium (1.6-2.3) mg/dL 10/14/23 10/15/23 10/15/23 Range/Units 20:01 06:15 07:38 BUN 49 H (9-20) mg/dL Creatinine 1.43 H (0.66-1.25) mg/dL Glucose 266 H (74-99) mg/dL POC Glucose (mg/dL) 428 H 266 H (70-110) mg/dL Magnesium 2.4 H (1.6-2.3) mg/dL
[2023-10-15] MEDS: ACETAMINOPHEN TAB 325 MG TAB PO PRN (10:22)
[2023-10-15 10:57] LABS: Glucose,Whole Blood 320 mg/dL (70-110)
--- NOTE | 2023-10-15 11:18 | CT ---
EXAMINATION TYPE: CODE STROKE: CT brain wo contr DATE OF EXAM: 10/15/2023 COMPARISON: 11/15/2022 HISTORY: vision changing, confusion CT DLP: 1138.[address] of the brain was performed. The ventricles, basal cisterns and sulci overlying the cerebral convexities demonstrate mild enlargem ent. Remote lacunar infarcts right centrum semiovale bilaterally in the eldridge radiata. There is no evidence for intracranial hemorrhage or sulcal effacement. There is decreased attenuation about the periventricular white matter and deep white matter of both c erebral hemispheres, compatible with chronic small vessel ischemia. Differential diagnosis does inclu de demyelination. No mass effects are seen.No midline shift. Osseous calvarium is intact. If symptoms persist consider MRI. IMPRESSION: 1. Age related atrophic and chronic small vessel ischemic change without acute intracranial process s een at this time.
[2023-10-15 11:29] LABS: Glucose,Whole Blood 310 mg/dL (70-110)
[2023-10-15] MEDS: INSULIN DETEMIR (LEVEMIR) 100 UNIT/ML SYR SQ SCH (12:00)
[2023-10-15] MEDS ORDERED: BENZOCAINE/MENTHOL LOZENG 1 EACH LOZENGE MUCOUS MEM PRN (15:08)
--- NOTE | 2023-10-15 15:38 | P.PN ---
Progress Note - Text Progress Note Date: 10/15/23 Receive notification from RN that patient with sudden onset headache, blurred vision of right eye, and confusion. Stroke code called at this time. Blood glucose 320. Vital signs as follows blood pressure 116/55, heart rate 73, respiratory rate 18, and SpO2 of 98% on room air. Stroke code called. Orders place for CT head without contrast Completion of NIH stroke scale with neuro checks every 15 minutes 4, every 30 minutes 2, every hour 2, and every 8 hours. Consult placed and neurologist Patient to continue Plavix, Eliquis, and atorvastatin pending further recommendations from neurologist. Bacilio Perrin NP rendered care for this patient independently, reviewed the findings and plan as documented in the note above. I did not physically speak with or examine the patient on this date.
--- NOTE | 2023-10-15 15:50 | P.PN ---
Subjective Progress Note Date: 10/15/23 Hospital course: Patient is a very pleasant 78-year-old male with a past medical history of coronary artery disease status post CABG and bioprosthetic severe aortic stenosis status post aortic valve replacement, HFpEF, hypertension, hyperlipidemia, insulin-dependent diabetes mellitus, GERD, BPH, history of subdural hematoma with memory impairment/dementia, and peripheral arterial disease with chronic wounds. He presented to the emergency department overnight with a chief complaint of shortness of breath and worsening lower extremity edema. He underwent full evaluation in the emergency department. Vital signs upon arrival blood pressure 134/64, heart rate 66, respiratory rate 20, temp 98.8F, SpO2 of 96% on room air. EKG showing sinus rhythm at 74 bpm with left ventricular hypertrophy. Labs completed and reviewed. CBC and coagulation profile unremarkable. BMP revealing acute kidney injury with BUN of 37, creatinine 1.30, and GFR 53 with baseline creatinine of 0.9. Troponin was elevated at 0.043. BNP elevated at 1790. Influenza A, influenza B, RSV, and Covid PCR were negative. Chest x-ray revealing cardiomegaly with pulmonary vascular congestion and left pleural effusions consistent with congestive heart failure. Patient was admitted under our services with consultation to cardiology. Troponins trended overnight resulting at 0.043, 0.043, and 0.040. Patient undergoing IV diuresis with Lasix. Repeat EKG completed on the morning of 10/13/23 showing sinus bradycardia at 52 bpm with Mobitz type I heart block. Beta sera stopped at this time. Physical exam: Patient seen and fully evaluated at bedside this morning. Patient resting in recliner this morning. He reports feeling tired and states he did not get much sleep last night. Patient reports he had a rough night with recurrent episodes where he was unable to catch his breath. He currently reports he feels as though he is breathing a bit better after respiratory treatment, but just feels overly exhausted. Vital signs reviewed and stable. General: Nontoxic, no distress and appears stated age. Derm: Skin warm and dry, normal coloration for ethnicity. Head: Atraumatic, normocephalic and symmetric. Eyes: EOMs intact, no lid lag, and anicteric sclera Mouth: no lip lesions, mucus membranes moist Cardiovascular: Regular rate regular rhythm with normal S1S2, systolic murmur, positive posterior tibial pulses bilaterally, and cap refill < 2 seconds. Lungs: Respirations even, regular, and unlabored on room air. Lungs diminished No crackles, rhonchi, rales, or wheezing. No accessory muscle usage. Abdominal: soft, nontender to palpation, no guarding, no appreciable organomegaly Ext: ROM intact. No gross muscle atrophy, 1+ pitting bilateral lower extremity edema, no contractures Neuro: Speech clear, face symmetrical and CN II-XII grossly intact with no noted focal neuro deficits Psych: Alert and oriented to person, place, time, and situation. Appropriate and pleasant affect. Assessment and Plan of Care: Acute on chronic diastolic heart failure exacerbation Elevated troponins, flat secondary to CHF exacerbation Type II AV block, Mobitz type I History of CAD status post CABG Severe aortic stenosis status post bioprosthetic aortic valve replacement Hypertension Hyperlipidemia -New onset Mobitz type I AV block, metoprolol discontinued. -Cardiology following, discussed plan of care with Dr. Hodges and he is recommending continuation of IV Lasix for an additional 24 hours. -Patient to remain on continuous Telemetry monitoring -Daily weights -Close monitoring of I's and O's. -Continue Lasix 40 mg IVP every 12 hours for an additional 24 hours and plan to transition to oral diuretic likely tomorrow -Patient otherwise to continue amlodipine 5 mg daily, Eliquis 5 mg twice daily, atorvastatin 80 mg nightly, Plavix 75 mg daily, and lisinopril 2.5 mg daily. -Continued close monitoring of electrolytes while diuresing. Insulin-dependent diabetes mellitus with hyperglycemia -Glucose has been significantly elevated over the past 24 hours ranging from 1 59-600. Patient started on fixed dose insulin 8 units 3 times daily with meals in addition to continuation of long-acting Levemir 56 units daily and glycemic protocol with NovoLog sliding scale. GERD -Continue home PPI with Protonix 40 mg daily. BPH -Continue daily medication regimen of Flomax 0.4 mg daily. History of subdural hematoma with memory impairment -Patient to continue with Aricept 10 mg nightly and to be provided with safe and supportive care including reorientation/redirection as needed. -Fall precautions to be maintained. Data and imaging reviewed: Morning vitals completed and reviewed. Blood pressure 130/77, heart rate 80, respiratory rate 18, temp 98.3F, SpO2 of 98% on room air. Labs completed and reviewed. BMP showing resolution of previous noted hyponatremia with sodium 137, potassium normal findings at 4.2 and renal function remaining at baseline with BUN 49, creatinine 1.43, and GFR 48. CODE STATUS: Full code DVT prophylaxis: Doris Discussed with: Patient, RN, and public health service officer Anticipated discharge date: Clinical course to determine, likely 24-[address]: Home with home care Patient was seen independently by Nurse Pracitioner. This document was prepared using [employer] dictation software. Please allow for errors in elementary substitute teacher, while rare they do occur. Bacilio Perrin, EXTENSION SPECIALIST rendered care for this patient independently, reviewed the findings and plan as documented in the note above. I did not physically speak with or examine the patient on this date. Objective - Vital Signs Vital signs: Vital Signs Temp 97.5 F L 10/14/23 20:00 Pulse 85 10/15/23 04:00 Resp 16 10/15/23 04:00 BP 127/72 10/15/23 04:00 Pulse Ox 96 10/15/23 04:00 FiO2 Intake & Output 10/14/23 10/15/23 10/15/23 18:59 06:59 18:59 Intake Total 1508 10 Output Total 900 800 Balance 608 -790 Weight 98.9 kg Intake: IV 20 10 Invasive Line 1 20 10 Oral 924 Blood Product 564 Output: Urine 900 800 Other: Voiding Method Toilet Toilet Urinal Urinal # Voids 1 1 # Bowel Movements 1 - Labs CBC & Chem 7: 10/16/23 08:30 10/16/23 08:30 Labs: Abnormal Lab Results - Last 24 Hours (Table) 10/14/23 10/14/23 10/14/23 Range/Units 08:30 11:42 16:23 Sodium 134 L (137-145) mmol/L Carbon Dioxide 19 L (22-30) mmol/L BUN 44 H (9-20) mg/dL Creatinine 1.40 H (0.66-1.25) mg/dL Glucose 249 H (74-99) mg/dL POC Glucose (mg/dL) 315 H 550 H (70-110) mg/dL 10/14/23 10/14/23 10/15/23 Range/Units 19:59 20:01 06:15 Sodium (137-145) mmol/L Carbon Dioxide (22-30) mmol/L BUN (9-20) mg/dL Creatinine (0.66-1.25) mg/dL Glucose (74-99) mg/dL POC Glucose (mg/dL) >600 H 428 H 266 H (70-110) mg/dL
[2023-10-15] MEDS: IPRATROPIUM-ALBUTEROL 3 ML NEB INHALATION SCH ×2 (16:21→21:48)
[2023-10-15 16:24] LABS: Glucose,Whole Blood 393 mg/dL (70-110)
[2023-10-15 20:08] LABS: Glucose,Whole Blood 357 mg/dL (70-110)
[2023-10-15] MEDS: AMITRIPTYLINE HCL 25 MG TAB PO SCH (20:13)
[2023-10-15] MEDS: ATORVASTATIN 80 MG TAB PO SCH (20:13)
[2023-10-15] MEDS: DONEPEZIL 10 MG TAB PO SCH (20:13)
[2023-10-15] MEDS: MELATONIN 5 MG TABLET PO SCH (23:41)
[2023-10-16 06:05] LABS: Glucose,Whole Blood 276 mg/dL (70-110)
[2023-10-16] MEDS: INSULIN ASPART (NovoLOG) 100 UNIT/ML VIAL SQ SCH ×7 (06:14→22:09)
[2023-10-16] MEDS: PANTOPRAZOLE 40 MG TABLET PO SCH (06:14)
[2023-10-16] MEDS: FUROSEMIDE 10 MG/ML 4 ML VIAL IV SCH ×2 (06:14→17:24)
[2023-10-16] MEDS: IPRATROPIUM-ALBUTEROL 3 ML NEB INHALATION SCH ×4 (07:46→20:59)
[2023-10-16] MEDS: APIXABAN 5 MG TAB PO SCH ×2 (08:12→22:08)
[2023-10-16] MEDS: CLOPIDOGREL 75 MG TAB PO SCH (08:12)
[2023-10-16] MEDS: amLODIPine 5 MG TAB PO SCH (08:12)
[2023-10-16] MEDS: OXYBUTYNIN 10 MG TAB.ER.24 PO SCH (08:12)
[2023-10-16] MEDS: TAMSULOSIN 0.4 MG CAP.ER.24H PO SCH (08:12)
[2023-10-16 09:30] LABS: HCT 40.1 % (39.0-53.0); HGB 13.1 gm/dL (13.0-17.5); MCHC 32.6 g/dL (31.0-37.0); MCV 82.7 fL (80.0-100.0); Mean Platelet Volume 7.5; Platelet Count 174 k/uL (150-450); RBC 4.85 m/uL (4.30-5.90); RDW 14.9 % (11.5-15.5); WBC 11.5 k/uL (3.8-10.6)
[2023-10-16 09:47] LABS: ALT 18 U/L (4-49); AST 18 U/L (17-59); African American GFR (CKD) 62 (>60 ml/min/1.73 sqM); Albumin 3.6 g/dL (3.5-5.0); Alkaline Phosphatase 126 U/L (38-126); Anion Gap 14 mmol/L; Blood Urea Nitrogen 50 mg/dL (9-20); Calcium 8.5 mg/dL (8.4-10.2); Carbon Dioxide 22 mmol/L (22-30); Chloride 99 mmol/L (98-107); Glucose 323 mg/dL (74-99); Magnesium 2.4 mg/dL (1.6-2.3); Non-African American GFR(CKD) 54 (>60 ml/min/1.73 sqM); Potassium 4.2 mmol/L (3.5-5.1); Sodium 135 mmol/L (137-145); Total Bilirubin 1.1 mg/dL (0.2-1.3)
--- NOTE | 2023-10-16 10:11 | P.PN ---
Subjective Progress Note Date: 10/16/23 Principal diagnosis: Heart failure The patient is a pleasant 78-year-old gentleman who is known to our service from before with a past medical history significant for valvular heart disease/aortic stenosis as well as paroxysmal atrial fibrillation as well as coronary artery disease status post CABG with RIVERA into LAD and known occluded SVG to the diagonal and patent SVG to OM and patent SVG to RCA as well as hypertension and dyslipidemia and underlying dementia. The patient is a poor historian. He was brought by his daughter to the hospital because he was feeling weak and short of breath above the baseline and also was having bilateral lower extremity is edema. No symptoms of chest pain or chest discomfort and no dizziness or lightheadedness and no feeling of heart racing or fluttering and no presyncope or syncope. Further workup was performed including an EKG initially showed sinus mechanism with second degree type I AV block and the second one showed only sinus mechanism only. Troponin came in to be slightly elevated but not consistent with acute coronary syndrome. The chest x-ray showed findings consistent with congestive heart failure. NT proBNP came in to be elevated. The patient was admitted to the hospital and he was started on Lasix. He is fe eling slightly better. Examination is remarkable for bilateral lower extremities edema with diminished breathing sounds bilaterally and regular rhythm with a systolic murmur at the right and left upper sternal border 10/13/2023 The patient was seen and evaluated this morning. He is feeling slightly better. The shortness of breath and lower extremities edema has improved. No pain in the chest. Hemodynamically is a slightly having borderline low blood pressure and heart rate and he did have an episode of second-degree type I AV block with Wenckebach. I'm going to stop the beta sera at this point I would advise continue monitoring the patient for additional 24 hours. 10/14/2023 The patient was seen and evaluated this morning. Overall is feeling better. The shortness of breath has improved. He still have mild lower extremity edema. No more episodes of bradycardia after we stopped the metoprolol. From the cardiac vascular standpoint of view, we will continue the current medical regimen, continue IV diuretics for additional 24 hours if the creatinine remains stable, consider switching the patient to oral diuretics tomorrow for possible discharge home tomorrow. The echo showed moderate aortic stenosis with impaired LV function. Examination is remarkable for chronic lower extremity skin changes and mild lower extremities edema was diminished breathing sounds bilaterally 10/15/2023 The patient was seen and evaluated this morning. He is congested. He is coughing. He is wheezing as well. From the cardiovascular standpoint of view, I would continue the current dose of IV Lasix for possible additional 24 hours. His creatinine has been stable. I would advise also giving the patient some breathing treatment. The examination is remarkable for bilateral expiratory wheezing and mild bilateral lower extremity edema 10/16/2023 The patient was seen and evaluated this morning. His shortness of breath has improved. He still hypervolemic on examination was bilateral rhonchi and lower extremity is edema. His WBC is elevated today. Kidney function remains stable. I would continue the patient on IV Lasix for additional 24 hours. The echo revealed cardiomyopathy with an ejection fraction between 35-40% with moderate aortic stenosis which is likely underestimated because of low Eliane gradient because aortic stenosis was severe when the ejection fraction was normal. Currently he is on lisinopril. He was on beta sera which was stopped before because of second-degree type I AV block. His heart rate has been in the 60s. Assessment Heart failure related to heart failure with preserved ejection fraction Valvular heart disease/aortic stenosis Paroxysmal atrial fibrillation Cardiomyopathy Underlying dementia Multiple comorbid conditions including hypertension and dyslipidemia Coronary artery disease Second-degree type I AV block which has resolved Hdz Avoid any AV nehemiah sera agents Continue IV Lasix for additional 24 hours if the creatinine remains stable Monitor the kidney function and electrolytes Breathing treatment Follow-up with the patient Objective - Vital Signs Vital signs: Vital Signs Temp 98.6 F 10/16/23 08:08 Pulse 82 10/16/23 09:42 Resp 18 10/16/23 09:42 BP 119/71 10/16/23 08:08 Pulse Ox 99 10/16/23 08:08 FiO2 Intake & Output 10/15/23 10/16/23 10/16/23 18:59 06:59 18:59 Intake Total 1080 240 Output Total 1050 Balance 30 240 Weight 98.7 kg Intake: Oral 1080 240 Output: Urine 1050 Other: Voiding Method Toilet Toilet Toilet Urinal Urinal Urinal # Voids 1 - Labs CBC & Chem 7: 10/16/23 08:30 10/16/23 08:30 Labs: Abnormal Lab Results - Last 24 Hours (Table) 10/15/23 10/15/23 10/15/23 Range/Units 10:56 11:27 16:22 WBC (3.8-10.6) k/uL Sodium (137-145) mmol/L BUN (9-20) mg/dL Creatinine (0.66-1.25) mg/dL Glucose (74-99) mg/dL POC Glucose (mg/dL) 320 H 310 H 393 H (70-110) mg/dL Magnesium (1.6-2.3) mg/dL 10/15/23 10/16/23 10/16/23 Range/Units 20:07 06:04 08:30 WBC 11.5 H (3.8-10.6) k/uL Sodium (137-145) mmol/L BUN (9-20) mg/dL Creatinine (0.66-1.25) mg/dL Glucose (74-99) mg/dL POC Glucose (mg/dL) 357 H 276 H (70-110) mg/dL Magnesium (1.6-2.3) mg/dL 10/16/23 Range/Units 08:30 WBC (3.8-10.6) k/uL Sodium 135 L (137-145) mmol/L BUN 50 H (9-20) mg/dL Creatinine 1.29 H (0.66-1.25) mg/dL Glucose 323 H (74-99) mg/dL POC Glucose (mg/dL) (70-110) mg/dL Magnesium 2.4 H (1.6-2.3) mg/dL
--- NOTE | 2023-10-16 11:43 | P.PN ---
Subjective Progress Note Date: 10/16/23 Hospital course: Patient is a very pleasant 78-year-old male with a past medical history of coronary artery disease status post CABG and bioprosthetic severe aortic stenosis status post aortic valve replacement, HFpEF, hypertension, hyperlipidemia, insulin-dependent diabetes mellitus, GERD, BPH, history of subdural hematoma with memory impairment/dementia, and peripheral arterial disease with chronic wounds. He presented to the emergency department overnight with a chief complaint of shortness of breath and worsening lower extremity edema. He underwent full evaluation in the emergency department. Vital signs upon arrival blood pressure 134/64, heart rate 66, respiratory rate 20, temp 98.8F, SpO2 of 96% on room air. EKG showing sinus rhythm at 74 bpm with left ventricular hypertrophy. Labs completed and reviewed. CBC and coagulation profile unremarkable. BMP revealing acute kidney injury with BUN of 37, creatinine 1.30, and GFR 53 with baseline creatinine of 0.9. Troponin was elevated at 0.043. BNP elevated at 1790. Influenza A, influenza B, RSV, and Covid PCR were negative. Chest x-ray revealing cardiomegaly with pulmonary vascular congestion and left pleural effusions consistent with congestive heart failure. Patient was admitted under our services with consultation to cardiology. Troponins trended overnight resulting at 0.043, 0.043, and 0.040. Patient undergoing IV diuresis with Lasix. Repeat EKG completed on the morning of 10/13/23 showing sinus bradycardia at 52 bpm with Mobitz type I heart block. Beta sera stopped at this time. Physical exam: Patient seen and fully evaluated at bedside this morning. Patient resting in bed easily awoken via verbal stimuli. Patient more alert this morning and he does have history of intermittent confusion secondary to previous subdural hematoma with memory impairment. He reports headache and blurred vision is gone. RN reports that patient's sister was notified of stroke code and did say that her brother has had a history of having intermittent episodes of blurred vision multiple times in the past. Patient currently reports being tired otherwise denies having any complaints. Vital signs reviewed and stable. General: Nontoxic, no distress and appears stated age. Derm: Skin warm and dry, normal coloration for ethnicity. Head: Atraumatic, normocephalic and symmetric. Eyes: EOMs intact, no lid lag, and anicteric sclera Mouth: no lip lesions, mucus membranes moist Cardiovascular: Regular rate regular rhythm with normal S1S2, systolic murmur, positive posterior tibial pulses bilaterally, and cap refill < 2 seconds. Lungs: Respirations even, regular, and unlabored on room air. Lungs diminished No crackles, rhonchi, rales, or wheezing. No accessory muscle usage. Abdominal: soft, nontender to palpation, no guarding, no appreciable organomegaly Ext: ROM intact. No gross muscle atrophy, 1+ pitting bilateral lower extremity edema, no contractures Neuro: Speech clear, face symmetrical and CN II-XII grossly intact with no noted focal neuro deficits Psych: Alert and oriented to person, place, and situation. Appropriate and pleasant affect. Assessment and Plan of Care: Acute on chronic diastolic heart failure exacerbation Elevated troponins, flat secondary to CHF exacerbation Type II AV block, Mobitz type I History of CAD status post CABG Severe aortic stenosis status post bioprosthetic aortic valve replacement Hypertension Hyperlipidemia -New onset Mobitz type I AV block, metoprolol discontinued. -Cardiology following, discussed plan of care with Dr. Hodges and he is still recommending continuation of IV Lasix for an additional 24 hours. -Patient to remain on continuous Telemetry monitoring -Daily weights -Close monitoring of I's and O's. -Continue Lasix 40 mg IVP every 12 hours for an additional 24 hours and plan to transition to oral diuretic likely tomorrow -Patient otherwise to continue amlodipine 5 mg daily, Eliquis 5 mg twice daily, atorvastatin 80 mg nightly, Plavix 75 mg daily, and lisinopril 2.5 mg daily. -Continued close monitoring of electrolytes while diuresing. Transient episode of Headache, blurred vision of right eye, and confusion -CT head was negative for acute process showing age-related atrophic and chronic small vessel ischemic changes negative for acute intercranial process. -Stroke was called -Orders were placed for neuro checks every 15 minutes 4, every 30 minutes 2, hourly 2, and every 8 hours. -Neurology consulted. Appreciate recommendations. -Patient to continue with Plavix, L a class, and atorvastatin pending further recommendations from neurologist. Insulin-dependent diabetes mellitus with hyperglycemia -Blood glucose levels have remained elevated over the past 24 hours but improved from previous day after starting on scheduled NovoLog along with sliding scale. Blood glucose levels ranging between 266 and 393 over the past 24 hours. Increased fixed dose NovoLog insulin from 8 units to 10 units 3 times daily with meals in addition to continuation of long-acting Levemir 56 units daily and glycemic protocol with NovoLog sliding scale. GERD -Continue home PPI with Protonix 40 mg daily. BPH -Continue daily medication regimen of Flomax 0.4 mg daily. History of subdural hematoma with memory impairment -Patient to continue with Aricept 10 mg nightly and to be provided with safe and supportive care including reorientation/redirection as needed. -Fall precautions to be maintained. Data and imaging reviewed: Morning vitals completed and reviewed. Blood pressure 119/71, heart rate 82, respiratory rate 18, temp 98.6F, SpO2 99% on room air. Labs completed and reviewed. CBC showing mild leukocytosis with WBC count of 11.5 otherwise normal findings. BMP showing mild hyponatremia with sodium of 135 and stable renal function with BUN 50, creatinine 1.29, GFR of 54. I's remain within normal limits with sodium 135, potassium 4.2, chloride 99, and magnesium of 2.4. Liver profile unremarkable. 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 This document was prepared using [employer] dictation software. Please allow for errors in dining host, while rare they do occur. Bacilio Perrin NP rendered care for this patient independently, reviewed the findings and plan as documented in the note above. I did not physically speak with or examine the patient on this date. Objective - Vital Signs Vital signs: Vital Signs Temp 98.6 F 10/16/23 08:08 Pulse 82 10/16/23 08:08 Resp 18 10/16/23 08:08 BP 119/71 10/16/23 08:08 Pulse Ox 99 10/16/23 08:08 FiO2 Intake & Output 10/15/23 10/16/23 10/16/23 18:59 06:59 18:59 Intake Total 1080 240 Output Total 1050 Balance 30 240 Weight 98.7 kg Intake: Oral 1080 240 Output: Urine 1050 Other: Voiding Method Toilet Toilet Urinal Urinal # Voids 1 - Labs CBC & Chem 7: 10/16/23 08:30 10/16/23 08:30 Labs: Abnormal Lab Results - Last 24 Hours (Table) 10/15/23 10/15/23 10/15/23 Range/Units 10:56 11:27 16:22 WBC (3.8-10.6) k/uL POC Glucose (mg/dL) 320 H 310 H 393 H (70-110) mg/dL 10/15/23 10/16/23 10/16/23 Range/Units 20:07 06:04 08:30 WBC 11.5 H (3.8-10.6) k/uL POC Glucose (mg/dL) 357 H 276 H (70-110) mg/dL
[2023-10-16 11:46] LABS: Glucose,Whole Blood 264 mg/dL (70-110)
[2023-10-16] MEDS: INSULIN DETEMIR (LEVEMIR) 100 UNIT/ML SYR SQ SCH (11:56)
--- NOTE | 2023-10-16 15:48 | P.CNNES ---
History of Present Illness Consult date: 10/16/23 Requesting physician: Bacilio Perrin Reason for Consult: stroke code, pt reports headache, blurred vision right eye and confusion History of Present Illness: Patient is a 78-year-old right-handed male with history of acute on chronic diastolic heart failure exacerbation, type II AV block, CAD, severe aortic stenosis, status post bioprosthetic aortic valve replacement, hypertension, hyperlipidemia came to the hospital on 10/11/2023 for CHF and shortness of breath and was diagnosed with CHF exacerbation with elevated troponin. Patient yesterday at 10:59 AM had a stroke code activated, because patient was complaining of blurred vision, headache. Patient's NIH stroke scale was 0. Patient had a computed tomography scan, which revealed age-related atrophic and chronic small vessel ischemic changes without acute intracranial process. I personally reviewed CT head, agree with the findings. Evidence of old lacune in the right centrum semiovale and right side of bruna, also present in previous CT scans. Visualized paranasal sinuses are clear. Patient tells me that he came to the hospital because on Tuesday, he was eating supper, started draining and he ran to get out of the brain and he tripped on a branch on the ground, and fell face forward. He banged his head and got dizzy. However I do not see such documentation in the ED record. It was just mentioned in the ED record that he was having shortness of breath and increased swelling to his legs over the last couple days that brought him to the hospital. Patient admits that yesterday he developed some blurred vision in the right eye, that lasted only for a few hours. Also had a headache right lateral frontal temporal region, 7/10, without nausea or vomiting, light or noise sensitivity. He denies any history of migraines. Patient has been seen by myself on 02/25/2023 for altered mental status, which was felt to be related to metabolic encephalopathy. Patient also has history of traumatic subdural hematoma right side October 2022, treated conservatively. Patient has history of atrial flutter, was placed on anticoagulation. He has diabetes poorly controlled, hypertension and dementia, mild to moderate degree. Patient is currently on Eliquis 5 mg twice a day and Plavix 75 mg. Patient has history of diabetes since he was in 50s. He has hypertension. He used to drink when he was much younger, but not anymore. Denies and never s moked tobacco. Patient's daughter admits that patient does have mild to moderate dementia. Patient suffered from recurrent falls in around October 2022. Computed tomography scan of head performed on 11/11/2022 revealed right- sided subdural hematoma. Patient was transferred to [facility], and was treated conservatively. On review of records, it appears that patient was taking aspirin and Plavix at that time. Review of Systems Constitutional: Denies chills, Denies fever Eyes: right blurred vision, denies diplopia, denies pain, denies loss of vision Ears: bilateral: decreased hearing, deny: ear discharge Ears, nose, mouth and throat: Reports headache (Gone now), Denies sore throat Cardiovascular: Denies chest pain, Denies shortness of breath Respiratory: Denies cough, Denies excessive sputum Gastrointestinal: Denies abdominal pain, Denies diarrhea, Denies nausea, Denies vomiting Genitourinary: Denies incontinence, Denies urinary frequency Musculoskeletal: Reports low back pain, Denies neck pain, Denies neck stiffness Integumentary: Reports color changes, Reports darkening of skin, Denies pruritus, Denies rash Neurological: Reports as per HPI Psychiatric: Denies anxiety, Denies depression Hematologic/Lymphatic: Denies easy bleeding, Denies easy bruising Past Medical History Past Medical History: Coronary Artery Disease (CAD), Heart Failure, Dementia, Diabetes Mellitus, GERD/Reflux, Hyperlipidemia, Hypertension, Memory Impairment, Myocardial Infarction (IA), Neurologic Disorder, Osteoarthritis (OA), Pneumonia, Prostate Disorder, Vascular Disorder Additional Past Medical History / Comment(s): See Dr Hodges's H&P. Hx falls and diarrhea/incontinence since diagnosed with Covid Oct 2022, daughter thinks he may have had a minor heart attack when he had Covid as well. 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 "Beginnings" of dementia. PAD, BPH, chronic back pain, hx bronchitis, sinus issues. Last Myocardial Infarction Date:: 2014 History of Any Multi-Drug Resistant Organisms: None Reported Past Surgical History: Coronary Bypass/CABG, Orthopedic Surgery Additional Past Surgical History / Comment(s): 2014 CABG 4 vessel/bioprosthetic aortic valve, angiograms, aortagram with bilateral run-offs, PTBA/atherectomy L leg, L foot surgery for crush injury, colonoscopy, bilateral cataract removals. Past Anesthesia/Blood Transfusion Reactions: No Reported Reaction Past Psychological History: Anxiety, Depression Additional Psychological History / Comment(s): Pt has a lashanda, Rhoda, currently residing with him. His lashanda, Sagrario, lives near and assists with his care, she manages his medications/checks blood sugar and gives him his insulin as well as assists with getting him meals. His lashanda, Medina drives him to appts. 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 Pt has PT/OT but lashanda cannot recall name of company. They are planning to hire someone to assist pt 3 days a week with ADLs/etc. Smoking Status: Never smoker Past Alcohol Use History: Heavy Additional Past Alcohol Use History / Comment(s): Pt was a heavy drinker in the past but has not drank in 15-20+ years. Past Drug Use History: None Reported - Past Family History Father History Unknown: Yes Family Medical History: Congestive Heart Failure (CHF) Mother History Unknown: Yes Family Medical History: Congestive Heart Failure (CHF) Medications and Allergies Home Medications Medication Instructions Recorded Confirmed Type Omeprazole [PriLOSEC] 20 mg PO DAILY 02/23/15 10/12/23 History Donepezil [Aricept] 10 mg PO HS #30 03/13/15 10/12/23 Rx Metoprolol Succinate (ER) [Toprol 50 mg PO DAILY 03/07/17 10/12/23 History XL] Tamsulosin HCl [Flomax] 0.4 mg PO DAILY 03/07/17 10/12/23 History Insulin Aspart [NovoLOG Flexpen] See Protocol SQ TID-W/MEALS 11/08/19 10/12/23 History Clopidogrel [Plavix] 75 mg PO DAILY 01/21/20 10/12/23 History Amitriptyline HCl [Elavil] 25 mg PO HS 03/16/22 10/12/23 History Oxybutynin Chloride [oxyBUTYnin 10 mg PO DAILY 03/16/22 10/12/23 History chloride ER] Potassium Chloride ER [K-Dur 10] 10 meq PO HS 03/16/22 10/12/23 History Insulin Glargine,Hum.rec.anlog 56 unit SQ W/LUNCH 04/05/22 10/12/23 History [Lantus Solostar Pen] amLODIPine [Norvasc] 5 mg PO DAILY 02/21/23 10/12/23 History Albuterol Nebulized [Ventolin 2.5 mg INHALATION RT-QID PRN 04/16/23 10/12/23 History Nebulized] Fluticasone Nasal [place] [Flonase 2 spr EA NOSTRIL DAILY PRN 04/16/23 10/12/23 History Nasal [place]] Atorvastatin [Lipitor] 80 mg PO HS 05/11/23 10/12/23 History Cholecalciferol [Vitamin D3 (125 125 mcg PO HS 05/11/23 10/12/23 History Mcg = 5000 Iu)] Furosemide [Lasix] 40 mg PO DAILY 05/11/23 10/12/23 History lisinopriL [Zestril] 2.5 mg PO DAILY 05/11/23 10/12/23 History Apixaban [Eliquis] 5 mg PO BID 07/21/23 10/12/23 History Semaglutide [Ozempic] 0.5 mg SQ FR 07/21/23 10/12/23 History guaiFENesin [Mucinex] 600 mg PO Q12HR 7 Days #14 tab 07/22/23 10/12/23 Rx Allergies Allergy/AdvReac Type Severity Reaction Status Date / Time No Known Allergies Allergy Verified 10/12/23 13:33 Physical Examination - Vital Signs Vital Signs: Vital Signs Temp Pulse Pulse Resp BP Pulse Ox 10/16/23 11:55 79 18 111/73 97 10/16/23 09:42 82 18 10/16/23 08:08 98.6 F 82 18 119/71 99 10/16/23 07:57 76 10/16/23 07:46 74 10/16/23 04:00 84 18 112/75 97 10/15/23 23:48 84 18 111/75 100 10/15/23 21:57 70 10/15/23 21:49 76 10/15/23 19:50 97.7 F 93 18 133/74 97 10/15/23 17:44 93 18 139/75 99 10/15/23 16:31 75 10/15/23 16:21 75 10/15/23 13:53 73 18 Intake and Output 10/15/23 10/16/23 10/16/23 22:59 06:59 14:59 Intake Total 480 240 Output Total 475 Balance 480 -235 Intake: Oral 480 240 Output: Urine 475 Other: Voiding Method Toilet Toilet Toilet Urinal Urinal Urinal # Voids 1 Weight 98.7 kg Patient is an elderly male, in no acute distress. Patient is sitting comfortably in the recliner. Patient is alert awake. Patient states it is April and the year is . He does that he is in Hospital but does not know the name of the hospital, he knows that he is in [facility]. He could not tell name of the current president. Speech and language functions are normal. Patient can name and repeat very well. No aphasia or dysarthria. Attention, concentration is intact and fund of knowledge is limited. On cranial nerve examination, pupils are small, equal, round and reacting to light, visual romeo are full on confrontation, with no neglect on double simultaneous stimulation. Extraocular muscles are intact with no nystagmus. Face is symmetric, tongue protrudes to the midline. Palatal elevation and sensation normal, hearing is mild to moderately decreased and shoulder shrug normal, facial sensation normal. On muscle strength testing, there is no pronator drift and the strength is normal in arms and legs distally and proximally. Deep tendon reflexes are symmetric, trace in the upper limbs at biceps and brachioradialis, 1+ at the knees, absent ankles and plantars are possibly flat bilaterally. Sensory to touch is equal with no neglect on double simultaneous stimulation. Cerebellar function showed no ataxia for [id number] testing. Tone and bulk of muscles normal. Gait deferred.. On general examination, there is no carotid bruit or murmur, S1-S2 audible. Chest is clear on consultation. Abdomen is soft nontender. No organomegaly, bowel sounds present. Patient has mild pitting peripheral edema. He has hyperpigmentation of the lower legs. Results - Laboratory Findings CBC and BMP: 10/16/23 08:30 10/16/23 08:30 Abnormal Lab Findings: Abnormal Labs 10/11/23 10/11/23 10/12/23 19:48 19:48 00:12 WBC Sodium Carbon Dioxide BUN 37 H Creatinine 1.30 H Glucose 236 H POC Glucose (mg/dL) Magnesium Alkaline Phosphatase 139 H Troponin I 0.043 H* 0.043 H* Albumin 10/12/23 10/12/23 10/12/23 05:25 05:25 06:53 WBC Sodium Carbon Dioxide BUN 39 H Creatinine Glucose 165 H POC Glucose (mg/dL) 164 H Magnesium Alkaline Phosphatase Troponin I 0.040 H* Albumin 10/12/23 10/12/23 10/12/23 07:34 12:34 17:12 WBC Sodium Carbon Dioxide BUN Creatinine Glucose POC Glucose (mg/dL) 171 H 308 H 226 H Magnesium Alkaline Phosphatase Troponin I Albumin 10/12/23 10/13/23 10/13/23 20:59 05:40 08:49 WBC Sodium Carbon Dioxide 21 L BUN 43 H Creatinine 1.49 H Glucose 242 H POC Glucose (mg/dL) 362 H 235 H Magnesium Alkaline Phosphatase Troponin I Albumin 3.4 L 10/13/23 10/13/23 10/13/23 11:36 16:09 16:10 WBC Sodium Carbon Dioxide BUN Creatinine Glucose POC Glucose (mg/dL) 303 H 423 H 425 H Magnesium Alkaline Phosphatase Troponin I Albumin 10/13/23 10/14/23 10/14/23 20:14 06:01 08:30 WBC Sodium 134 L Carbon Dioxide 19 L BUN 44 H Creatinine 1.40 H Glucose 249 H POC Glucose (mg/dL) 341 H 159 H Magnesium Alkaline Phosphatase Troponin I Albumin 10/14/23 10/14/23 10/14/23 11:42 16:23 19:59 WBC Sodium Carbon Dioxide BUN Creatinine Glucose POC Glucose (mg/dL) 315 H 550 H >600 H Magnesium Alkaline Phosphatase Troponin I Albumin 10/14/23 10/15/23 10/15/23 20:01 06:15 07:38 WBC Sodium Carbon Dioxide BUN 49 H Creatinine 1.43 H Glucose 266 H POC Glucose (mg/dL) 428 H 266 H Magnesium 2.4 H Alkaline Phosphatase Troponin I Albumin 10/15/23 10/15/23 10/15/23 10:56 11:27 16:22 WBC Sodium Carbon Dioxide BUN Creatinine Glucose POC Glucose (mg/dL) 320 H 310 H 393 H Magnesium Alkaline Phosphatase Troponin I Albumin 10/15/23 10/16/23 10/16/23 20:07 06:04 08:30 WBC 11.5 H Sodium Carbon Dioxide BUN Creatinine Glucose POC Glucose (mg/dL) 357 H 276 H Magnesium Alkaline Phosphatase Troponin I Albumin 10/16/23 10/16/23 08:30 11:44 WBC Sodium 135 L Carbon Dioxide BUN 50 H Creatinine 1.29 H Glucose 323 H POC Glucose (mg/dL) 264 H Magnesium 2.4 H Alkaline Phosphatase Troponin I Albumin Assessment and Plan Assessment: * Transient blurred vision right eye, with headache, that resolved in 2 hours, unclear cause. Rule out TIA. * History of traumatic subdural hematoma right side October 2022, treated conservatively * Paroxysmal atrial fibrillation, on anticoagulation. * Bioprosthetic Aortic stenosis, severe per echo report. * CHF exacerbation * Diabetes, poorly controlled * Hypertension * Dyslipidemia * Obesity * CAD * Dementia, mild to moderate degree Plan: * Patient's neurological symptoms have resolved. Current examination is nonfocal. * Continue Eliquis 5 mg twice a day. Patient also on Plavix 75 mg daily. * CT head showed no no acute process. 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 * Carotid Doppler 07/28/2023 to revealed atherosclerotic changes with no significant stenosis bilateral ICA. Antegrade flow in both vertebral arteries. No need to repeat. * 2-D echo revealed moderate concentric LVH, LV EF 35-40%. Moderately increased left atrial diameter. Aortic sclerosis, with moderate aortic stenosis. * Hemoglobin A1c 9.5 on 07/28/2023. Suggest optimize control of diabetes to target A1c < 7.0. * Fasting lipid panel with cholesterol 102, LDL 39, HDL 28, triglycerides 172 on 07/28/2023. Continue Lipitor 80 mg daily. * Neurologically clear. Please call neurology if any other concerns. Thank you for the consult.
[2023-10-16 16:23] LABS: Glucose,Whole Blood 345 mg/dL (70-110)
[2023-10-16 20:08] LABS: Glucose,Whole Blood 375 mg/dL (70-110)
[2023-10-16] MEDS: AMITRIPTYLINE HCL 25 MG TAB PO SCH (22:08)
[2023-10-16] MEDS: DONEPEZIL 10 MG TAB PO SCH (22:09)
[2023-10-16] MEDS: MELATONIN 5 MG TABLET PO SCH (22:09)
[2023-10-16] MEDS: ATORVASTATIN 80 MG TAB PO SCH (22:09)
[2023-10-17 06:09] LABS: Glucose,Whole Blood 375 mg/dL (70-110)
[2023-10-17] MEDS: PANTOPRAZOLE 40 MG TABLET PO SCH (07:44)
[2023-10-17] MEDS: INSULIN ASPART (NovoLOG) 100 UNIT/ML VIAL SQ SCH ×4 (07:44→12:23)
[2023-10-17] MEDS: FUROSEMIDE 10 MG/ML 4 ML VIAL IV SCH (07:44)
[2023-10-17] MEDS: APIXABAN 5 MG TAB PO SCH (08:03)
[2023-10-17] MEDS: TAMSULOSIN 0.4 MG CAP.ER.24H PO SCH (08:03)
[2023-10-17] MEDS: amLODIPine 5 MG TAB PO SCH (08:04)
[2023-10-17] MEDS: CLOPIDOGREL 75 MG TAB PO SCH (08:04)
[2023-10-17] MEDS: OXYBUTYNIN 10 MG TAB.ER.24 PO SCH (08:04)
[2023-10-17] MEDS: IPRATROPIUM-ALBUTEROL 3 ML NEB INHALATION SCH ×2 (08:15→12:06)
[2023-10-17 08:25] VITALS: TEMP 98.1
--- NOTE | 2023-10-17 10:52 | PN ---
PROGRESS NOTE SUBJECTIVE: Tim is a 78-year-old gentleman who was admitted to hospital with congestive heart failure exacerbation. He is feeling much better and his shortness of breath and leg edema had improved. OBJECTIVE: GENERAL: Comfortable at rest. VITAL SIGNS: Stable. CHEST: Reveals occasional rhonchi. HEART: Reveals first and second heart sounds. Systolic murmur at the apex. ABDOMEN: Soft. EXTREMITIES: Exam of extremities did not reveal any edema. LABORATORY DATA: Labs show a hemoglobin of 13.1, platelet count is 174, potassium is 4.2, BUN is 50, creatinine is 1.2. ASSESSMENT: 1. Acute exacerbation of chronic systolic heart failure. 2. Moderate aortic stenosis. 3. Heart block secondary to beta blockers that have been stopped. PLAN: I am going to change the Lasix to p.o. and continue rest of his medications. MMODL / IJN: [id number] /
[2023-10-17 11:34] LABS: Glucose,Whole Blood 336 mg/dL (70-110)
[2023-10-17] MEDS: INSULIN DETEMIR (LEVEMIR) 100 UNIT/ML SYR SQ SCH (12:20)
[2023-10-17 12:29] VITALS: BP 138/79; PULSE 82
--- NOTE | 2023-10-17 13:37 | CDI ---
Documentation Clarification Form Date: From: Alivia Martinez Phone: [phone] Admit Date: 10/14/2023 01:13:00 PM Patient Name: Tim Coleman Visit Number: [id number] Discharge Date: ATTENTION: The Clinical Documentation Specialists (CDI) and [facility] Coding Staff appreciate your assistance in clarifying documentation. Please respond to the clarification below the line at the bottom and electronically sign. The CDI & [facility] Coding staff will review the response and follow-up if needed. Please note: Queries are made part of the Legal Health Record. If you have any questions, please contact the author of this message via ITS. Dr. Fernando Hodges Your patient has elevated troponin levels. Please clarify if there is an additional diagnosis and/or clinical significance related to this value. Patient history/risk factors: "78-year-old male with a past medical history of coronary artery disease status post CABG and bioprosthetic severe aortic stenosis status post aortic valve replacement, HFpEF, hypertension, hyperlipidemia, insulin-dependent diabetes mellitus, GERD, BPH, history of subdural hematoma with memory impairment/dementia, and peripheral arterial disease with chronic wounds." - Per Progress Noteon 10/16 Clinical indicators: "Elevated troponins, flat secondary to CHF exacerbation" "presented to the emergency department overnight with a chief complaint of shortness of breath and worsening lower extremity edema" - Per Progress Note on 10/16 Troponins trended overnight resulting at 0.043, 0.043, and 0.040. - Per Progress Note on 10/16 Treatment: "IV diuresis with Lasix." - Per Progress Note on 10/16 Is there an additional diagnosis and/or clinical significance related to the above lab result/information: [ ] Type 2 VA due to CHF exacerbation [ ] Non-ischemic with acute myocardial injury [ ] No additional diagnosis/Not clinically significant [ ] Other, please specify [ ] Unable to determine MTDD
--- NOTE | 2023-10-17 14:05 | P.DS ---
Providers Date of admission: 10/14/23 13:13 Expected date of discharge: 10/17/23 Attending physician: Wyatt Mathis MD Consults: 10/12/23 02:42 Consult Physician Urgent Consulting Provider: Jl Schafer Consult Reason/Comments: CHF exacerbation Do you want consulting provider notified?: Yes 10/15/23 13:38 Consult Physician Urgent Consulting Provider: Sukhdeep Maher Consult Reason/Comments: stroke code, pt reports headache, blurred vision right eye and confusion Do you want consulting provider notified?: Yes Primary care physician: Valente Lopez [facility] Course: Discharge Diagnosis: Acute on chronic diastolic heart failure exacerbation. Patient underwent successful IV diuresis and discharged home on oral Lasix 40 mg daily. [facility], [facility] therapy, and referral was placed for palliative care. CHF navigator also consulted. Elevated troponins, flat troponin leak secondary to CHF exacerbation. Type II AV block, Mobitz type I. Metroprolol discontinued History of CAD status post CABG. Severe aortic stenosis status post bioprosthetic aortic valve replacement. Hypertension Hyperlipidemia Transient episode of Headache, blurred vision of right eye, and confusion. CT head negative for acute process patient was evaluated and cleared by neurology. Patient to continue with Plavix, Eliquis and atorvastatin. Insulin-dependent diabetes mellitus with hyperglycemia, strongly recommend heart healthy and carb consistent diet and maintaining tighter control of glucose levels with home sliding scale. GERD. Continue home PPI with Protonix 40 mg daily. BPH. Continue daily medication regimen of Flomax 0.4 mg daily. History of subdural hematoma with memory impairment. Patient to continue with Aricept 10 mg nightly. Hospital Course: Patient is a very pleasant 78-year-old male with a past medical history of coronary artery disease status post CABG and bioprosthetic severe aortic stenosis status post aortic valve replacement, HFpEF, hypertension, hyp erlipidemia, insulin-dependent diabetes mellitus, GERD, BPH, history of subdural hematoma with memory impairment/dementia, and peripheral arterial disease with chronic wounds. He presented to the emergency department overnight with a chief complaint of shortness of breath and worsening lower extremity edema. He underwent full evaluation in the emergency department. Vital signs upon arrival blood pressure 134/64, heart rate 66, respiratory rate 20, temp 98.8F, SpO2 of 96% on room air. EKG showing sinus rhythm at 74 bpm with left ventricular hypertrophy. Labs completed and reviewed. CBC and coagulation profile unremarkable. BMP revealing acute kidney injury with BUN of 37, creatinine 1.30, and GFR 53 with baseline creatinine of 0.9. Troponin was elevated at 0.043. BNP elevated at 1790. Influenza A, influenza B, RSV, and Covid PCR were negative. Chest x-ray revealing cardiomegaly with pulmonary vascular congestion and left pleural effusions consistent with congestive heart failure. Patient was admitted under our services with consultation to cardiology. Troponins trended overnight resulting at 0.043, 0.043, and 0.040. Patient undergoing IV diuresis with Lasix. Repeat EKG completed on the morning of 10/13/23 showing sinus bradycardia at 52 bpm with Mobitz type I heart block. Beta sera stopped at this time. During hospitalization, patient had transient episode of Headache, blurred vision of right eye, and confusion. CT head negative for acute process patient was evaluated and cleared by neurology. Patient to continue with Plavix, Eliquis and atorvastatin. Patient underwent successful IV diuresis. Condition improving and patient now reports being free from complaints and reports significant improvement in shortness of breath. Patient 97-99% on room air at rest and 97% on room air with ambulation. Patient cleared from cardiology perspective recommending resumption of home Lasix. With the exception of discontinuation of metoprolol secondary to Mobitz type I heart block no other medication changes were made this admission. Patient strongly encouraged to obtain greater control on glucose levels with his home sliding scale. Patient being discharged home with [facility] visiting nurse Homecare services including RN, physical therapy, and referral placed for palliative care. Physical exam: Vital signs reviewed and stable. General: Nontoxic, no distress and appears stated age. Derm: Skin warm and dry, normal coloration for ethnicity. Head: Atraumatic, normocephalic and symmetric. Eyes: EOMs intact, no lid lag, and anicteric sclera Mouth: no lip lesions, mucus membranes moist Cardiovascular: Regular rate regular rhythm with normal S1S2, systolic murmur, positive posterior tibial pulses bilaterally, and cap refill < 2 seconds. Lungs: Respirations even, regular, and unlabored on room air. Lungs diminished No crackles, rhonchi, rales, or wheezing. No accessory muscle usage. Abdominal: soft, nontender to palpation, no guarding, no appreciable organomegaly Ext: ROM intact. No gross muscle atrophy, 1+ pitting bilateral lower extremity edema, no contractures Neuro: Speech clear, face symmetrical and CN II-XII grossly intact with no noted focal neuro deficits Psych: Alert and oriented to person, place, and situation. Appropriate and pleasant affect. A total of 38 minutes of time were spent preparing this complex discharge summary. Pt was discharged on 10/17/23 and 9:49 AM Patient was seen independently by Nurse Practitioner. This document was prepared using [employer] dictation software. Please allow for errors in law office manager while rare they do occur. Bacilio Perrin NP rendered care for this patient independently, reviewed the findings and plan as documented in the note above. I did not physically speak with or examine the patient on this date. Patient Condition at Discharge: Stable Plan - Discharge Summary Discharge Rx Participant: No New Discharge Prescriptions: Continue Omeprazole [PriLOSEC] 20 mg PO DAILY Donepezil [Aricept] 10 mg PO HS #30 Tamsulosin HCl [Flomax] 0.4 mg PO DAILY Insulin Aspart [NovoLOG Flexpen] See Protocol SQ TID-W/MEALS Clopidogrel [Plavix] 75 mg PO DAILY Insulin Glargine,Hum.rec.anlog [Lantus Solostar Pen] 56 unit SQ W/LUNCH amLODIPine [Norvasc] 5 mg PO DAILY Fluticasone Nasal Webster [Flonase Nasal Webster] 2 spr EA NOSTRIL DAILY PRN PRN Reason: Nasal Congestion Cholecalciferol [Vitamin D3 (125 Mcg = 5000 Iu)] 125 mcg PO HS Furosemide [Lasix] 40 mg PO DAILY Atorvastatin [Lipitor] 80 mg PO HS Apixaban [Eliquis] 5 mg PO BID guaiFENesin [Mucinex] 600 mg PO Q12HR 7 Days #14 tab Oxybutynin Chloride [oxyBUTYnin chloride ER] 10 mg PO DAILY Potassium Chloride ER [K-Dur 10] 10 meq PO HS Amitriptyline HCl [Elavil] 25 mg PO HS Albuterol Nebulized [Ventolin Nebulized] 2.5 mg INHALATION RT-QID PRN PRN Reason: Shortness Of Breath lisinopriL [Zestril] 2.5 mg PO DAILY Semaglutide [Ozempic] 0.5 mg SQ FR Discontinued Metoprolol Succinate (ER) [Toprol XL] 50 mg PO DAILY Discharge Medication List Omeprazole [PriLOSEC] 20 mg PO DAILY 02/23/15 [History] Donepezil [Aricept] 10 mg PO HS #30 03/13/15 [Rx] Tamsulosin HCl [Flomax] 0.4 mg PO DAILY 03/07/17 [History] Insulin Aspart [NovoLOG Flexpen] See Protocol SQ TID-W/MEALS 11/08/19 [History] Clopidogrel [Plavix] 75 mg PO DAILY 01/21/20 [History] Amitriptyline HCl [Elavil] 25 mg PO HS 03/16/22 [History] Oxybutynin Chloride [oxyBUTYnin chloride ER] 10 mg PO DAILY 03/16/22 [History] Potassium Chloride ER [K-Dur 10] 10 meq PO HS 03/16/22 [History] Insulin Glargine,Hum.rec.anlog [Lantus Solostar Pen] 56 unit SQ W/LUNCH 04/05/22 [History] amLODIPine [Norvasc] 5 mg PO DAILY 02/21/23 [History] Albuterol Nebulized [Ventolin Nebulized] 2.5 mg INHALATION RT-QID PRN 04/16/23 [History] Fluticasone Nasal Webster [Flonase Nasal Webster] 2 spr EA NOSTRIL DAILY PRN 04/16/23 [History] Atorvastatin [Lipitor] 80 mg PO HS 05/11/23 [History] Cholecalciferol [Vitamin D3 (125 Mcg = 5000 Iu)] 125 mcg PO HS 05/11/23 [History] Furosemide [Lasix] 40 mg PO DAILY 05/11/23 [History] lisinopriL [Zestril] 2.5 mg PO DAILY 05/11/23 [History] Apixaban [Eliquis] 5 mg PO BID 07/21/23 [History] Semaglutide [Ozempic] 0.5 mg SQ FR 07/21/23 [History] guaiFENesin [Mucinex] 600 mg PO Q12HR 7 Days #14 tab 07/22/23 [Rx] Follow up Appointment(s)/Referral(s): Fernando Hodges MD [STAFF PHYSICIAN] - 10/24/23 1:15 pm (Tuesday at [facility]) Valente Sharma MD [Primary Care Provider] - 10/19/23 12:15 pm (Tuesday with BUSINESS CONTINUITY SPECIALIST) BRITTANYA Visiting Nurse, [NON-STAFF] - Patient Instructions/Handouts: Heart Failure (DC), Low-Sodium Diet (DC) Activity/Diet/Wound Care/Special Instructions: Activity: As tolerated. Take breaks as needed. Diet: Heart healthy and carb consistent diet. Avoid salts, or foods with hidden salts such as canned or boxed foods and frozen dinners. Extra salt makes your heart work harder and traps the fluid in your body for longer. Special Instructions: Weigh yourself every morning after you urinate. If you gain 3 pounds overnight or more than 5 pounds in one week, call your primary physician and building construction superintendent for guidance on your medications or they may want to see you in their office. Keep a daily log of your weights and be sure to bring with you at follow up visits with your PCP and building construction superintendent. At your follow up with cardiology, it is recommending that you discuss HFMS Zoll Heart Failure monitoring device along with Furoscix (furosemide subcutaneous injection unit) for better management of your heart failure. Take all of your medications as directed, especially your water pills. NEVER skip a dose. And remember to keep all of your doctor's appointments and follow- up as needed. Elevate your legs when you are not up moving around to help with circulation and prevent swelling. Compression stockings are also a great way to improve lower extremity circulation and prevent/improve lower extremity edema. Call your primary care provider and building construction superintendent if you notice any extra swelling in your legs, ankles, feet or abdomen, if you have a new dry cough, if your shortness of breath worsens with activity or at rest, or if you feel more fatigued. Arrangements are being made for home care in your home including physical therapy, nursing, and palliative care to help closer manage your chronic illnesses. Thank you for allowing us to participate in your care, it was truly a pleasure having you for our patient!!! Discharge Disposition: HOME WITH HOME HEALTH SERVICES
[2023-10-18] MEDS ORDERED: FUROSEMIDE 40 MG TAB PO SCH (09:00)
== END 2023-10-17 14:41 | disposition home health service (06) | DRG 291 ==
LOC: EC 19:39 → 3SCARD 10-12 00:46 → OBSVTOIN 10-14 13:13
PROVIDERS: ADMIT Internal Medicine; ATTEND Internal Medicine
DX: I11.0 Hypertensive heart disease with heart failure (principal); G93.41 Metabolic encephalopathy; I50.33 Acute on chronic diastolic (congestive) heart failure; N17.9 Acute kidney failure, unspecified; I48.92 Unspecified atrial flutter; I25.810 Atherosclerosis of coronary artery bypass graft(s) without angina pectoris; F03.B4 Unspecified dementia, moderate, with anxiety; F03.B3 Unspecified dementia, moderate, with mood disturbance; G45.9 Transient cerebral ischemic attack, unspecified; I25.10 Atherosclerotic heart disease of native coronary artery without angina pectoris; K21.9 Gastro-esophageal reflux disease without esophagitis; E78.5 Hyperlipidemia, unspecified; M19.90 Unspecified osteoarthritis, unspecified site; W01.0XXA Fall on same level from slipping, tripping and stumbling without subsequent striking against object, initial encounter; S06.5XAS Traumatic subdural hemorrhage with loss of consciousness status unknown, sequela; E11.51 Type 2 diabetes mellitus with diabetic peripheral angiopathy without gangrene; R79.89 Other specified abnormal findings of blood chemistry; I48.0 Paroxysmal atrial fibrillation; I44.1 Atrioventricular block, second degree; I35.0 Nonrheumatic aortic (valve) stenosis; I42.9 Cardiomyopathy, unspecified; Z79.4 Long term (current) use of insulin; F32.A Depression, unspecified; E66.9 Obesity, unspecified; Z68.33 Body mass index [BMI] 33.0-33.9, adult; N40.0 Benign prostatic hyperplasia without lower urinary tract symptoms; I87.8 Other specified disorders of veins; G89.29 Other chronic pain; M54.9 Dorsalgia, unspecified; Z87.01 Personal history of pneumonia (recurrent); I25.2 Old myocardial infarction; Z11.52 Encounter for screening for COVID-19; Z95.3 Presence of xenogenic heart valve; Z91.81 History of falling; Z86.16 Personal history of COVID-19; Z79.899 Other long term (current) drug therapy; Z79.02 Long term (current) use of antithrombotics/antiplatelets; Z79.01 Long term (current) use of anticoagulants; Z51.5 Encounter for palliative care; Z95.1 Presence of aortocoronary bypass graft
CPT/HCPCS: 36415; 70450; 71046; 76705; 80048; 80053; 83605; 83735; 83880; 84484; 85025; 85027; 85610; 85730; 87636; 93005; 93306; 94640; 94760; 96374; 96376; 99285

== ENCOUNTER → 2023-11-25 | Outpatient (CLI) | payer MEDICARE, BC ==
[2023-11-25 14:07] LABS: Partial Thromboplastin Time 24.7 sec (22.0-30.0)
[2023-11-25 18:20] LABS: Basophils # (A) 0.04 X 10*3/uL (0.00-0.10); Basophils % (A) 0.5 %; Eosinophils # (A) 0.18 X 10*3/uL (0.04-0.35); Eosinophils % (A) 2.1 %; HCT 46.1 % (39.6-50.0); HGB 14.5 g/dL (13.0-17.0); Lymphocytes # (A) 1.49 X 10*3/uL (0.90-5.00); Lymphocytes % (A) 17.6 %; MCH 25.8 pg (27.0-32.0); MCHC 31.5 g/dL (32.0-37.0); MCV 82.2 FL (80.0-97.0); Mean Platelet Volume 9.6 FL (9.5-12.2); Monocytes # (A) 0.69 X 10*3/uL (0.20-1.00); Monocytes % (A) 8.1 %; NRBC Per 100 WBC 0 X 10*3/uL (0.00-0.01); Neutrophils # (A) 6.05 X 10*3/uL (1.80-7.70); Neutrophils % (A) 71.3 %; Platelet Count 201 X 10*3/uL (140-440); RBC 5.61 X 10*6/uL (4.40-5.60); RDW 15.4 % (11.5-14.5); WBC 8.48 X 10*3/uL (4.50-10.00)
[2023-11-25 18:32] LABS: ALT 27 U/L (10-49); AST 22 U/L (14-35); Albumin 4.1 g/dL (3.8-4.9); Albumin/Globulin Ratio 1.24 Ratio (1.60-3.17); Alkaline Phosphatase 136 U/L (41-126); BUN/Creat Ratio 29.08 Ratio (12.00-20.00); Blood Urea Nitrogen 34.9 mg/dL (9.0-27.0); Calcium 9.4 mg/dL (8.7-10.3); Carbon Dioxide 22.7 mmol/L (21.6-31.8); Chloride 104 mmol/L (96-109); Globulin 3.3 g/dL (1.6-3.3); Glucose 216 mg/dL (70-110); Potassium 5.1 mmol/L (3.5-5.5); Sodium 139 mmol/L (135-145); Total Bilirubin 0.7 mg/dL (0.3-1.2); Total Protein 7.4 g/dL (6.2-8.2)
[2023-11-25 22:17] LABS: Prothrombin Time 10.6 sec (10.0-12.5)
== END | disposition home or self-care (01) ==
LOC: LABPAT 12:50
PROVIDERS: ATTEND Thoracic Surgery (Cardiothoracic Vascular Surgery)
DX: Z01.812 Encounter for preprocedural laboratory examination (principal); I35.0 Nonrheumatic aortic (valve) stenosis; Z79.899 Other long term (current) drug therapy; Z79.01 Long term (current) use of anticoagulants
CPT/HCPCS: 36415; 80053; 85025; 85610; 85730; 86850; 86900; 86901

== ENCOUNTER 2023-11-30 05:59 | Inpatient (IN) | payer MEDICARE, BC ==
[2023-11-23 16:28] VITALS: BMI 36.0
[2023-11-30 07:23] LABS: Glucose,Whole Blood 243 mg/dL (70-110)
[2023-11-30] MEDS ORDERED: SODIUM CHLORIDE 0.9% 1,000 ML IV ONE (07:34)
[2023-11-30] MEDS ORDERED: CLEVIDIPINE BUTYRATE 25 MG in EMPTY BAG 1 BAG IV PRN (08:00)
[2023-11-30] MEDS ORDERED: PROTAMINE SULFATE 250 MG in EMPTY BAG 1 BAG IV PRN (08:00)
[2023-11-30] MEDS ORDERED: METOPROLOL TARTRATE 25 MG TAB PO ONE (08:00)
[2023-11-30] MEDS ORDERED: INSULIN REGULAR 100 UNIT in SODIUM CHLORIDE 0.9% 100 ML IV PRN (08:00)
[2023-11-30] MEDS ORDERED: TRANEXAMIC ACID 2,000 MG in SODIUM CHLORIDE 0.9% 80 ML IV PRN (08:00)
[2023-11-30] MEDS ORDERED: ATORVASTATIN 10 MG TAB PO ONE (08:00)
[2023-11-30] MEDS ORDERED: CLOPIDOGREL 75 MG TAB PO ONE (08:00)
[2023-11-30] MEDS ORDERED: ASPIRIN 325 MG TAB PO ONE (08:00)
[2023-11-30] MEDS ORDERED: LACTATED RINGERS 1,000 ML IV SCH ×2 (08:00→11:17)
[2023-11-30] MEDS ORDERED: ELECTROLYTE-A SOLUTION 1,000 ML with POTASSIUM CHLORIDE 100 MEQ, MAGNESIUM SULFATE 16 M... IV PRN ×5 (08:00)
[2023-11-30] MEDS ORDERED: SODIUM CHLORIDE 0.9% 500 ML 500 ML INTRAARTER PRN (08:00)
[2023-11-30] MEDS ORDERED: NITROGLYCERIN-D5W PMX 25 MG/250 ML BTL IV PRN (08:00)
[2023-11-30] MEDS ORDERED: ROCURONIUM 10 MG/ML (5 ML VIAL) IV ONE (09:48)
[2023-11-30] MEDS ORDERED: NEOSTIGMINE 1 MG/ML 10 ML VIAL ONE (09:48)
[2023-11-30] MEDS ORDERED: SUCCINYLCHOLINE CHLORIDE 200 MG/10 ML VIAL IV ONE (09:48)
[2023-11-30] MEDS ORDERED: HEPARIN SODIUM,PORCINE 5,000 UNIT/ML 1 ML VIAL ONE (09:48)
[2023-11-30] MEDS ORDERED: fentaNYL (PF) 50 MCG/ML 2 ML AMP ONE (09:48)
[2023-11-30] MEDS ORDERED: LIDOCAINE 1% INJ 10MG/ML (20 ML MDV) ONE (09:48)
[2023-11-30] MEDS ORDERED: SODIUM CHLORIDE 0.9% 100 ML BAG ONE (09:48)
[2023-11-30] MEDS ORDERED: PROPOFOL 10 MG/ML 20 ML VIAL IV ONE (09:48)
[2023-11-30] MEDS ORDERED: GLYCOPYRROLATE 0.2 MG/ML 2 ML VIAL ONE (09:48)
[2023-11-30] MEDS ORDERED: ceFAZolin 1,000 MG VIAL ONE (09:48)
[2023-11-30] MEDS ORDERED: PROTAMINE SULFATE 10 MG/ML 5 ML VIAL ONE (09:48)
[2023-11-30] MEDS ORDERED: IOPAMIDOL-370 100ML BTL INJ ONE (11:01)
[2023-11-30] MEDS ORDERED: CALCIUM GLUCONATE IN NACL 2 GM in SALINE 1 100ML.BAG IVPB PRN (11:17)
[2023-11-30] MEDS ORDERED: ONDANSETRON 4 MG/2 ML VIAL IVP PRN (11:17)
[2023-11-30] MEDS ORDERED: Potassium Replacement Protocol 1 EACH MISC MISCELLANE PRN (11:17)
[2023-11-30] MEDS ORDERED: IPRATROPIUM-ALBUTEROL 3 ML NEB INHALATION PRN (11:17)
[2023-11-30] MEDS ORDERED: Magnesium Replacement Protocol 1 EACH MISC MISCELLANE PRN (11:17)
[2023-11-30] MEDS ORDERED: FLUTICASONE 50MCG/SPRAY NASAL 16GM EA NOSTRIL PRN (11:17)
[2023-11-30] MEDS ORDERED: ALBUTEROL NEBULIZED 2.5 MG/3 ML INHALATION PRN (11:17)
--- NOTE | 2023-11-30 11:28 | P.ANPRN ---
Procedure Note - Anesthesia - Invasive Line Left Arterial Line Time Out Performed: Yes ([id number]) Date of Procedure: 11/30/23 Time of Procedure: 09:15 Location of Patient: CVL Preparation: Sterile Prep, Sterile Dressing Arterial Line Location: Briachial (left. Radial attempted at 2 - could not thread. Brachial x1 attempt) Ultrasound Used: No Purpose - Visualization and Identification of Vasculature: No Needle Guage: 20g Image Stored and Saved: No Narrative: Central line placement per sterile protocol utilized. lumen bled - pulsitile. Then flushed. Secured and dressed.
--- NOTE | 2023-11-30 11:33 | P.ANPRN ---
Procedure Note - Anesthesia - MARGARITA Intraop Pre Bypass MARGARITA Intraop - Anesthesia Indication: TAVR Date of Procedure: 11/30/23 Pre-operative Diagnosis: Aortic Stenosis Post-operative Diagnosis: Same. Surgeon: Andrew Burnett Left Ventricle: EF 30-35. mild lvh Ejection Fraction: Other (30-35) Regional Wall Motion Abnormalities: None Left Ventricle Hypertrophy: Yes (mild to mod) Right Ventricle: wnl R. Ventricle Function: Normal Aortic Valve: LVOT 2.6, Peak gradient 54.7. Calc MILAGRO .48 Anatomy: Trileaflet Aortic Stenosis: Severe Aortic Regurgitation: Trace Mitral Stenosis: None Mitral Regurgitation: Moderate Tricuspid Stenosis: None Tricuspid Regurgitation: None Pulmonic Stenosis: None Pulmonic Regurgitation: None R. Atrial Dilation: No R. Atrial PFO: No L. Atrial Dilation: No Aortic Dissection: No Aortic Calcification: None Plural Effusion: None
--- NOTE | 2023-11-30 11:37 | P.ANPRN ---
Procedure Note - Anesthesia - MARGARITA Intraop Post Bypass MARGARITA Intraop Post Bypass Procedure Performed: TAVR Left Ventricle: unchanged Ejection Fraction: Other (30-35) Regional Wall Motion Abnormalities: None Right Ventricle: wnl R. Ventricle Function: Normal Aortic Valve: prosthetic valve in place. peak 7, mean 3. Trace perivalvlar leak at the 12 oclock position Mitral Valve: Unchanged Tricuspid: Unchanged Pulmonic: Unchanged Aortic Dissection: No
[2023-11-30] MEDS ORDERED: DEXTROSE 50% SYRINGE 50 ML IVP PRN ×2 (12:00)
--- NOTE | 2023-11-30 12:05 | P.OP ---
Date of Procedure: 11/30/23 Preoperative Diagnosis: Symptomatic calcific tricuspid aortic stenosis Postoperative Diagnosis: Same Procedure(s) Performed: Right percutaneous transfemoral transcatheter aortic valve implantation with 34 mm Medtronic Evolute FX prosthesis Implants: Medtronic 34 mm Evolute FX Anesthesia: WILLYA Surgeon: Andrew Burnett (Cardiovascular surgeon) Financing Analyst #1: Francis Montgomery (woodworking craftsman) Financing Analyst #2: Fernando Hodges (Second telemarketing representative) Estimated Blood Loss (ml): 15 Pathology: none sent Condition: stable Disposition: ICU Indications for Procedure: 78-year-old male with previous coronary bypass surgery and diminished left ventricular ejection fraction presents with worsening dyspnea on exertion and found to have critical aortic valvular stenosis. Patient was seen in the high risk valve clinic and felt appropriate for transcatheter aortic valve replacement. Operative Findings: Valve was very heavily calcified with high gradients across the valve. The valve was successfully implanted with levels of 3 on the right and 5 on the left. Postop MARGARITA demonstrated minimal paravalvular leak. The valve was well expanded and in good position. Description of Procedure: Patient was brought to the cardiac catheterization laboratory placed supine on the table. Gen. anesthesia was induced. The anterior torso and bilateral groins were sterilely prepped and draped. Right subclavian vein was punctured and a temporary pacing wire placed in the apex of the right ventricle and screwed in. It was secured at its exit site with 2-0 silk suture ligatures. Bilateral femoral arterial access was obtained under ultrasound guidance. On the left a long 6-Panamanian sheath was placed up into the descending thoracic aorta. On the right a short 7-Panamanian sheath was placed and then this was removed and 2 Perclose devices were placed and an 8-Panamanian sheath was placed. Patient was systemically heparinized and 8-Panamanian sheath was exchanged for a 14- Panamanian sheath over a stiff wire. Catheter was advanced from the left into the noncoronary sinus of Valsalva. A 34 mm Medtronic Evolute FX valve was loaded on the back table and brought up on the field and checked under fluoroscopy. The valve was crossed and pigtail catheter advanced into the apex of the ventricle. Transvalvular gradients were measured and noted to be very high. The pigtail catheter was used to place a stiff wire and the apex of the ventricle. 25mm true balloon was advanced over the stiff wire in the apex of the ventricle from the right side and across the aortic valve. Balloon valvuloplasty was performed under rapid ventricular pacing and this proceeded on uneventfully. The balloon was removed and the 14-Panamanian sheath exchanged for the valve delivery system. This was advanced through the vascular system around the aortic arch and across the aortic valve. The valve was deployed under rapid ventricular pacing with deployment levels of 3 on the right and 5 on the left. Patient became quite hypotensive during the valve deployment but his blood pressure immediately shot upwards following valve deployment. MARGARITA demonstrated only very mild p aravalvular leak with excellent expansion of the stent and overall excellent valvular function. Heparin was reversed with protamine and the valve deployment system removed. The 14-Panamanian sheath was removed and the 2 Perclose devices deployed with good hemostasis. There was revealed leak which resolved with direct pressure. The left sheath was then removed and the femoral artery sealed with the Angio-Seal. Patient was transferred to ICU in stable condition.
[2023-11-30 12:25] LABS: Basophils % (A) 0 %; Eosinophils # (A) 0.2 k/uL (0-0.7); Eosinophils % (A) 2 %; HCT 41.3 % (39.0-53.0); HGB 13.3 gm/dL (13.0-17.5); Lymphocytes # (A) 1.5 k/uL (1.0-4.8); Lymphocytes % (A) 15 %; MCH 26.8 pg (25.0-35.0); MCHC 32.3 g/dL (31.0-37.0); MCV 83.1 fL (80.0-100.0); Mean Platelet Volume 7.6; Monocytes # (A) 0.6 k/uL (0-1.0); Monocytes % (A) 6 %; Neutrophils # (A) 7.3 k/uL (1.3-7.7); Neutrophils % (A) 74 %; Platelet Count 173 k/uL (150-450); RBC 4.97 m/uL (4.30-5.90); RDW 15.7 % (11.5-15.5); WBC 9.9 k/uL (3.8-10.6)
[2023-11-30] MEDS ORDERED: INSULIN ASPART (NovoLOG) 100 UNIT/ML VIAL SQ SCH (12:30)
[2023-11-30 12:35] LABS: Glucose,Whole Blood 203 mg/dL (70-110)
[2023-11-30] MEDS: INSULIN DETEMIR (LEVEMIR) 100 UNIT/ML SYR SQ SCH (12:35)
--- NOTE | 2023-11-30 12:35 | XR ---
EXAMINATION TYPE: XR chest 1V portable DATE OF EXAM: 11/30/2023 Comparison: 10/11/2023 Clinical History: 78-year-old male Post Operative Cardiac Surgery Findings: Overlying external leads on the right. Median sternotomy wires. Endovascular aortic valve replacement . Post-CABG clips. Heart mildly enlarged. Some patchy density at the periphery of the left base. No s izable pleural effusion. Impression: Mild cardiomegaly. Some mild patchy opacity at the left base, probably atelectasis. Endovascular aort ic valve replacement.
[2023-11-30 12:38] LABS: African American GFR (CKD) 78 (>60 ml/min/1.73 sqM); Anion Gap 8 mmol/L; Blood Urea Nitrogen 44 mg/dL (9-20); Carbon Dioxide 19 mmol/L (22-30); Chloride 110 mmol/L (98-107); Glucose 208 mg/dL (74-99); Non-African American GFR(CKD) 68 (>60 ml/min/1.73 sqM); Potassium 4.8 mmol/L (3.5-5.1); Sodium 137 mmol/L (137-145)
[2023-11-30] MEDS ORDERED: amLODIPine 5 MG TAB PO SCH (13:00)
[2023-11-30] MEDS ORDERED: CLEVIDIPINE BUTYRATE 25 MG in EMPTY BAG 1 BAG IV SCH (13:00)
[2023-11-30] MEDS: INSULIN ASPART (NovoLOG) 100 UNIT/ML VIAL SQ SCH ×3 (13:04→20:17)
[2023-11-30] MEDS ORDERED: BENZOCAINE/MENTHOL LOZENG 1 EACH LOZENGE MUCOUS MEM PRN (13:05)
--- NOTE | 2023-11-30 13:50 | P.OP ---
Description of Procedure: Transcatheter Aoritc Valve Replacement Operative report PROCEDURE PERFORMED: 1. Percutaneous Aortic Valve Implantation using a 34 mm Evolut-FX. 2. Transesophageal echocardiography (performed by anesthesia) 3. Ultrasound guided access and repair of right femoral artery access site by Perclose closure device. 4. Placement of temporary pacemaker wire. 5. Aortic root angiography 6. Pre TAVR balloon aortic valvuloplasty with a 25mm True Balloon INDICATIONS: 1. 78 year-old with a history of severe symptomatic aortic valve stenosis. PERFORMING PHYSICIANS: 1. Francis Montgomery DO Interventional Cardiology 2. Fernando Hodges MD Interventional Cardiology. 3. Andrew Burnett MD, Cardiothoracic Surgeon. SEDATION: General anesthesia provided by anesthesia, see separate note APPROACH: Right femoral artery via percutaneous approach PROCEDURE DESCRIPTION: The patient was discussed at valve clinic with multidisciplinary approach with cardiothoracic surgeon as well as supervisor paste mixing and thought better treated with TAVR. Risks, benefits, and alternatives of the procedure had been explained to the patient who understood the risks and agreed to proceed. After consents were obtained, patient was brought to the transcatheter aortic valve implantation room in the cardiac laboratory animal care veterinarian and general anesthesia was provided by the anesthesiologist (see separate report). Once full body sterile prep was performed, right subclavian venous access was obtained and a temporary pacemaker was screwed in, performed by cardiothoracic surgery. Pacing threshholds were checked and deemed appropriate. Next the left femoral artery was accessed using a modified Seldinger technique, ultrasound guidance and micropuncture technique. A 6 Ivorian Rabi sheath was placed in the left femoral artery. Next, a 6-Ivorian pigtail catheter was advanced into the aorta and positioned in the aortic root, aortic root angiography was performed to determine optimal deployment angle. The right femoral artery was accessed using modified Seldinger technique, micropuncture technique and under direct ultrasound guidance. Femoral angiogram was done showing access in the common femoral artery and a 6Fr sheath was placed. Next preclose technique was performed using 2 Percloses. Next a 0.035 Safari wire was placed in the Aorta via a pigtail catheter. Over that the arteriotomy was serially dilated and a 18 Fr Wilton sheath was placed. Next a 6F- AL1 catheter was advanced over a wire to the aortic root. A straight wire was advanced through the catheter and used to cross the severely stenotic valve. The AL1 was then exchanged for a 6Fr pigtail catheter and pressure measurements were obtained. The 0.035 Safari wire was then positioned in the apex. There was so me difficulty advancing the AL catheter and mean gradient was noted to be significant at 54 mmHg and therefore balloon aortic valvuloplasty was recommended. A 25 mm True balloon was advanced to the aortic valve and inflated during rapid pacing for blown aortic valve plasty. Next a 34 mm Evolut-FX was advanced. The valve was then positioned across the aortic valve and confirmed with aortic root angiography. The valve was initially partially deployed however needed repositioning and therefore was recaptured. The valve was then deployed in proper position using slow deployment and with rapid pacing in conjuncture with aortic root angiography and MARGARITA. The delivery system was withdrawn back into the arch and an aortic root injection in conjunction with MARGARITA demonstrated a satisfactory result. There was trace to mild para valvular leak. There was no evidence of any other significant abnormalities. The preclose Perclose was then deployed in the right femoral artery and hemostasis was achieved. The pigtail was then advanced to the level of the iliac bifurcation via the left femoral access. Femoral angiogram was performed that showed no contrast leak. The left femoral angiogram demonstrated an arteriotomy in the common femoral artery and this was repaired using a 6F angioseal device with complete hemostasis. The temporary venous pacemaker was sutured in place. The patient was then tr ansported to the ICU in hemodynamically stable condition, requiring no pressor support. COMPLICATIONS: None CONCLUSION: 1. Implantaion of 34 mm Evolut-FX transcatheter aortic valve via right femoral approach under MARGARITA and fluoro guidance 2. Placement of temporary pacemaker wire 3. Aortic Root Aortogram. 4. Pre TAVR balloon aortic valvuloplasty with a 25mm True Balloon RECOMMENDATIONS: The patient will be monitored in the ICU for hemodynamic and electrical stability.
[2023-11-30 17:00] LABS: Glucose,Whole Blood 287 mg/dL (70-110)
[2023-11-30] MEDS: ACETAMINOPHEN TAB 325 MG TAB PO PRN ×2 (17:03→22:16)
[2023-11-30 19:52] LABS: Glucose,Whole Blood 286 mg/dL (70-110)
[2023-11-30 20:15] LABS: Glucose,Whole Blood 261 mg/dL (70-110)
[2023-11-30] MEDS ORDERED: POTASSIUM CHLORIDE ER 10 MEQ TAB.ER.PRT PO SCH (21:00)
[2023-11-30] MEDS ORDERED: CHOLECALCIFEROL 125 MCG (5000 IU) TABLET PO SCH (21:00)
[2023-11-30] MEDS ORDERED: AMITRIPTYLINE HCL 25 MG TAB PO SCH (21:00)
[2023-11-30] MEDS ORDERED: DONEPEZIL 10 MG TAB PO SCH (21:00)
[2023-11-30] MEDS ORDERED: SENNOSIDES-DOCUSATE SODIUM 1 EACH TAB PO SCH (21:00)
[2023-11-30] MEDS ORDERED: ATORVASTATIN 80 MG TAB PO SCH (21:00)
[2023-12-01] MEDS: HEPARIN SODIUM,PORCINE 5,000 UNIT/ML 1 ML VIAL SQ SCH ×3 (00:12→16:36)
[2023-12-01 06:11] LABS: Glucose,Whole Blood 153 mg/dL (70-110)
[2023-12-01] MEDS: INSULIN ASPART (NovoLOG) 100 UNIT/ML VIAL SQ SCH ×2 (06:22→12:10)
[2023-12-01 06:43] LABS: Basophils % (A) 0 %; Eosinophils # (A) 0.2 k/uL (0-0.7); Eosinophils % (A) 2 %; HCT 44.5 % (39.0-53.0); HGB 13.9 gm/dL (13.0-17.5); Hypochromasia Slight; Lymphocytes # (A) 1.1 k/uL (1.0-4.8); Lymphocytes % (A) 10 %; MCH 26.4 pg (25.0-35.0); MCHC 31.3 g/dL (31.0-37.0); MCV 84.3 fL (80.0-100.0); Mean Platelet Volume 7.5; Monocytes # (A) 0.7 k/uL (0-1.0); Monocytes % (A) 7 %; Neutrophils % (A) 79 %; Platelet Count 173 k/uL (150-450); RBC 5.28 m/uL (4.30-5.90); RDW 15.6 % (11.5-15.5); WBC 11.4 k/uL (3.8-10.6)
[2023-12-01 06:47] LABS: Ionized Calcium 4.8 mg/dL (4.5-5.3)
[2023-12-01 06:55] LABS: ALT 21 U/L (4-49); AST 27 U/L (17-59); African American GFR (CKD) 84 (>60 ml/min/1.73 sqM); Albumin 3.8 g/dL (3.5-5.0); Alkaline Phosphatase 147 U/L (38-126); Anion Gap 12 mmol/L; Blood Urea Nitrogen 32 mg/dL (9-20); Calcium 8.9 mg/dL (8.4-10.2); Carbon Dioxide 17 mmol/L (22-30); Chloride 110 mmol/L (98-107); Glucose 155 mg/dL (74-99); Magnesium 2.6 mg/dL (1.6-2.3); Non-African American GFR(CKD) 73 (>60 ml/min/1.73 sqM); Potassium 4.8 mmol/L (3.5-5.1); Sodium 139 mmol/L (137-145); Total Protein 7.2 g/dL (6.3-8.2)
[2023-12-01] MEDS ORDERED: HYDROmorphone 1 MG/ML 1 ML SYRINGE IVP STA (07:43)
[2023-12-01] MEDS ORDERED: FUROSEMIDE 40 MG TAB PO SCH (09:00)
[2023-12-01] MEDS ORDERED: MAGNESIUM HYDROXIDE 2,400 MG/30 ML CUP PO PRN (09:00)
[2023-12-01] MEDS ORDERED: CLOPIDOGREL 75 MG TAB PO SCH (09:00)
[2023-12-01] MEDS ORDERED: DAPAGLIFLOZIN PROPANEDIOL 5 MG TABLET PO SCH (09:00)
[2023-12-01] MEDS ORDERED: amLODIPine 5 MG TAB PO SCH (09:00)
[2023-12-01] MEDS ORDERED: PANTOPRAZOLE 40 MG TABLET PO SCH (09:00)
[2023-12-01] MEDS ORDERED: amLODIPine 10 MG TAB PO SCH (09:00)
[2023-12-01] MEDS ORDERED: OXYBUTYNIN 10 MG TAB.ER.24 PO SCH (09:00)
[2023-12-01] MEDS ORDERED: TAMSULOSIN 0.4 MG CAP.ER.24H PO SCH ×2 (09:00→09:15)
[2023-12-01] MEDS ORDERED: bisacodyL 10 MG SUPP RECTAL PRN (09:00)
[2023-12-01] MEDS ORDERED: APIXABAN 5 MG TAB PO SCH (09:00)
[2023-12-01 11:23] LABS: Glucose,Whole Blood 258 mg/dL (70-110)
--- NOTE | 2023-12-01 11:24 | CA ---
Transthoracic Echo Report Name: Tim Coleman Age: 78 Gender: M : 1945 Exam Date: 12/01/2023 08:41 Exam Location: [facility] Ht (in): 67 Wt (lb): 219 Ordering Physician: Monique Renner Attending/Referring Phys: [id number], Jud Research Specialist Gretchen Chu RDCS Procedure CPT: Indications: post TAVR Cardiac Hx: hx of CABG, tavr Technical Quality: Very technically difficult study Contrast 1: Definity Total Dose (mL): 3 Contrast 2: Total Dose (mL): MEASUREMENTS (Male / Female) Normal Values 2D ECHO LV Diastolic Diameter PLAX 5.2 cm 4.2 - 5.9 / 3.9 - 5.3 cm LV Systolic Diameter PLAX 3.7 cm IVS Diastolic Thickness 1.5 cm 0.6 - 1.0 / 0.6 - 0.9 cm LVPW Diastolic Thickness 1.5 cm 0.6 - 1.0 / 0.6 - 0.9 cm LV Relative Wall Thickness 0.6 RV Internal Dim ED PLAX 3.5 cm LVOT Diameter 2.1 cm LA Systolic Diameter LX 4.9 cm 3.0 - 4.0 / 2.7 - 3.8 cm LV Diastolic Volume MOD BP 87.8 cm??? 67 - 155 / 56 - 104 cm??? LV Systolic Volume MOD BP 34.7 cm??? 22 - 58 / 19 - 49 cm??? LV Ejection Fraction MOD BP 60.4 % >= 55 % LV Cardiac Index MOD BP 1612.4 cm???/min???m??? LV Diastolic Volume MOD 4C 101.6 cm??? LV Systolic Volume MOD 4C 38.3 cm??? LV Ejection Fraction MOD 4C 62.3 % LV Cardiac Index MOD 4C 1922.0 cm???/min???m??? LV Diastolic Length 4C 9.2 cm LV Systolic Length 4C 7.2 cm LV Diastolic Volume MOD 2C 63.6 cm??? LV Systolic Volume MOD 2C 30.1 cm??? LV Ejection Fraction MOD 2C 52.6 % LV Cardiac Index MOD 2C 1016.7 cm???/min???m??? LV Diastolic Length 2C 7.6 cm LV Systolic Length 2C 6.8 cm M-MODE Aortic Root Diameter MM 3.9 cm DOPPLER AV Peak Velocity 181.3 cm/s AV Peak Gradient 13.2 mmHg AV Mean Velocity 111.3 cm/s AV Mean Gradient 5.9 mmHg AV Velocity Time Integral 33.0 cm AI Peak Velocity 374.0 cm/s AI Peak Gradient 55.9 mmHg AI Pressure Half Time 710.0 ms MV Area PHT 6.6 cm??? MV Deceleration Time 111.3 ms TR Peak Velocity 278.2 cm/s TR Peak Gradient 31.0 mmHg Right Ventricular Systolic Press 36.0 mmHg FINDINGS Left Ventricle Left ventricular ejection fraction is estimated at 45-50 %. Left ventricular cavity size normal. Moderate concentric left ventricular hypertrophy. Right Ventricle Mild right ventricular dilatation. Mild pulmonary hypertension. Right ventricular systolic pressure estimated at mm hg. Right Atrium Right atrium not well visualized. Left Atrium Moderately increased left atrial diameter. Mildly increased left atrial area. Mitral Valve Mitral valve thickened. Mitral annular calcification. Mild mitral regurgitation. Aortic Valve Bioprosthetic AOV with mean gradient of 6 mmHg and max gradient of 13 mmHg. Mild perirosthetic regurgitation. Tricuspid Valve Tricuspid valve not well visualized. Mild tricuspid regurgitation. Pulmonic Valve Structurally normal pulmonic valve. Trace pulmonic regurgitation. Pericardium No pericardial effusion. Aorta Mild aortic dilatation at the level of the sinuses of valsalva 39 mm CONCLUSIONS Moderate LV systolic dysfunction Prosthetic valve in aortic position with mild aortic regurgitation Previewed by: Dr. Jl Schafer MD (Electronically Signed) Final Date: 01 December 2023 11:23
[2023-12-01 12:09] LABS: Glucose,Whole Blood 268 mg/dL (70-110)
[2023-12-01] MEDS: INSULIN DETEMIR (LEVEMIR) 100 UNIT/ML SYR SQ SCH (12:10)
--- NOTE | 2023-12-01 12:11 | XR ---
EXAMINATION TYPE: XR chest 1V portable DATE OF EXAM: 12/01/2023 Comparison: 11/30/2023 Clinical History: 78-year-old male Post Operative Cardiac Surgery Findings: Median sternotomy wires are present with post CABG clips. Right ventricular transvenous pacer lead ag ain noted. Heart remains borderline in size. No consolidation or pleural effusion. Aeration and lung volumes show improvement. Impression: Improving aeration and lung volumes. No definite acute process.
--- NOTE | 2023-12-01 14:47 | US ---
EXAMINATION TYPE: US upper ext pseudo LT DATE OF EXAM: 12/01/2023 COMPARISON: NONE CLINICAL INDICATION: Male, 78 years old with history of left extem swelling and pain; TECHNIQUE: Targeted ultrasound of pseudo seen by Dr, pointed out by nurse. 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
--- NOTE | 2023-12-01 16:24 | P.DS ---
Providers Date of admission: 11/30/23 05:59 Expected date of discharge: 12/01/23 Attending physician: Francis Montgomery DO Consults: 11/30/23 10:00 Consult to Anesthesia Routine Consulting Provider: Anesthesia,Services Consult Reason/Comments: Cardiac Surgery Pre-Op 11/30/23 11:03 Consult Physician Routine Consulting Provider: Andrew Burnett Consult Reason/Comments: post TAVR Do you want consulting provider notified?: Already Contacted Primary care physician: Valente Sharma [place] [facility] Course: MEDICAL HISTORY: 1. Calcified aortic valve with severe symptomatic aortic valve stenosis, NYHA class II 2. Coronary artery disease with previous myocardial infarction status post 5 vessel CABG in 2014 3. Hypertension 4. Hyperlipidemia 5. Insulin-dependent diabetes 6. Peripheral arterial disease status post arthrectomy of the left leg 7. BPH 8. Dementia 9. Paroxysmal atrial fibrillation as well as Mobitz type I heart block 10. Occasional falls PROCEDURE: 1. Percutaneous aortic valve implantation using a 34 mm Evolute FX under MARGARITA and fluoroscopy guidance 2. Transesophageal echocardiography performed by anesthesia 3. Ultrasound-guided access and repair of right femoral artery access site by Perclose closure device 4. Placement of temporary pacemaker wire 5. Aortic root angiography 6. Pre-balloon aortic valvuloplasty with a 25 mm True balloon HISTORY OF PRESENT ILLNESS: This is a 78-year-old gentleman who follows on an outpatient basis with Dr. Sharma for primary care and Dr. Hodges for cardiology. He has a known history of severe aortic stenosis and has been symptomatic with increased exertional dyspnea. He had been referred to structural heart clinic for evaluation for transcatheter aortic valve replacement after heart catheterization and transesophageal echocardiogram were completed. Echocardiography demonstrated mildly reduced systolic function with EF 40-45%, aortic valve area 0.76 cm with a peak/mean gradient 109/69 mmHg. Heart catheterization showed patent RIVERA to the LAD and vein graft to the RCA as well as OM with occluded vein graft to the diagonal artery. After workup was completed STS risk score was calculated along with incremental risk and the patient was felt to be high risk for surgical aortic valve replacement, therefore transcatheter aortic valve replacement was recommended. The usual course of TAVR was discussed in detail the patient and his family, risks and benefits were reviewed, shared decision making between cardiology, surgery, and the patient/family took place, and the patient/family consented to proceed with the procedure. HOSPITAL COURSE: The patient was brought to the hospital on 11/30/23, was taken to the extended stay area, prepared in the usual fashion, and subsequently taken to the cardiac catheterization laboratory where Dr. Montgomery and Dr. Burnett completed TAVR procedure under general anesthesia with fluoroscopy and MARGARITA. The valve was deployed under rapid ventricular pacing and proceeded without event. At the end of the procedure there was no significant gradient, hemodynamics were felt to be acceptable, and there was no evidence of significant perivalvular leak. Upon completion of the procedure the patient was extubated and was transferred to the cardiovascular intensive care unit where he was recovered and monitored hemodynamically. His oxygen was titrated down, he was tolerating oral diet, his pain was controlled, follow-up TTE demonstrated mildly reduced left ventricular systolic function with EF 45-50%, mean gradient 6 mercury with mild periprostatic regurgitation, and he was ready to be discharged to home on postoperative day #1. He and his daughter received written and verbal instruction regarding his medications, activity restrictions, signs and symptoms requiring physician notification, and follow-up appointments. Patient Condition at Discharge: Stable Plan - Discharge Summary Discharge Rx Participant: No New Discharge Prescriptions: New Acetaminophen Tab [Tylenol] 650 mg PO Q4HR PRN tab PRN Reason: Fever And/ Or Mild Pain (1-3) Sennosides-Docusate Sodium [Senokot-S] 2 each PO HS PRN tab PRN Reason: Constipation Continue Omeprazole [PriLOSEC] 20 mg PO QAM Donepezil [Aricept] 10 mg PO HS #30 Tamsulosin HCl [Flomax] 0.4 mg PO DAILY Insulin Aspart [NovoLOG Flexpen] See Protocol SQ BID-W/MEALS Insulin Glargine,Hum.rec.anlog [Lantus Solostar Pen] 56 unit SQ W/LUNCH amLODIPine [Norvasc] 5 mg PO QAM Fluticasone Nasal Doyle [Flonase Nasal Doyle] 2 spr EA NOSTRIL DAILY PRN PRN Reason: Nasal Congestion Cholecalciferol [Vitamin D3 (125 Mcg = 5000 Iu)] 125 mcg PO HS Furosemide [Lasix] 40 mg PO DAILY Atorvastatin [Lipitor] 80 mg PO HS Semaglutide [Rybelsus] 3 mg PO DAILY Empagliflozin [Jardiance] 10 mg PO DAILY Apixaban [Eliquis] 5 mg PO BID #0 Oxybutynin Chloride [oxyBUTYnin chloride ER] 10 mg PO DAILY Potassium Chloride ER [K-Dur 10] 10 meq PO HS Amitriptyline HCl [Elavil] 25 mg PO HS Albuterol Nebulized [Ventolin Nebulized] 2.5 mg INHALATION RT-QID PRN PRN Reason: Shortness Of Breath lisinopriL [Zestril] 2.5 mg PO QAM Discontinued Clopidogrel [Plavix] 75 mg PO DAILY Discharge Medication List Omeprazole [PriLOSEC] 20 mg PO QAM 02/23/15 [History] Donepezil [Aricept] 10 mg PO HS #30 03/13/15 [Rx] Tamsulosin HCl [Flomax] 0.4 mg PO DAILY 03/07/17 [History] Insulin Aspart [NovoLOG Flexpen] See Protocol SQ BID-W/MEALS 11/08/19 [History] Amitriptyline HCl [Elavil] 25 mg PO HS 03/16/22 [History] Oxybutynin Chloride [oxyBUTYnin chloride ER] 10 mg PO DAILY 03/16/22 [History] Potassium Chloride ER [K-Dur 10] 10 meq PO HS 03/16/22 [History] Insulin Glargine,Hum.rec.anlog [Lantus Solostar Pen] 56 unit SQ W/LUNCH 04/05/22 [History] amLODIPine [Norvasc] 5 mg PO QAM 02/21/23 [History] Albuterol Nebulized [Ventolin Nebulized] 2.5 mg INHALATION RT-QID PRN 04/16/23 [History] Fluticasone Nasal Doyle [Flonase Nasal Doyle] 2 spr EA NOSTRIL DAILY PRN 04/16/23 [History] Atorvastatin [Lipitor] 80 mg PO HS 05/11/23 [History] Cholecalciferol [Vitamin D3 (125 Mcg = 5000 Iu)] 125 mcg PO HS 05/11/23 [History] Furosemide [Lasix] 40 mg PO DAILY 05/11/23 [History] lisinopriL [Zestril] 2.5 mg PO QAM 05/11/23 [History] Empagliflozin [Jardiance] 10 mg PO DAILY 11/23/23 [History] Semaglutide [Rybelsus] 3 mg PO DAILY 11/23/23 [History] Acetaminophen Tab [Tylenol] 650 mg PO Q4HR PRN tab 12/01/23 [Rx] Apixaban [Eliquis] 5 mg PO BID #0 12/01/23 [Rx] Sennosides-Docusate Sodium [Senokot-S] 2 each PO HS PRN tab 12/01/23 [Rx] Follow up Appointment(s)/Referral(s): Fernando Hodges MD [STAFF PHYSICIAN] - 12/09/23 3:30 pm (Your appointment 12/09/23 is for a groin check. You also have a 30 day TAVR follow up echo and appointment with Dr. Hodges 01/05/24 @ 2:30 pm, and a 1 year TAVR follow up echo and appointment with Dr. Hodges 11/02/24 @ 1 pm) Valente Sharma MD [Primary Care Provider] - As Needed Clinic,Structural Heart [NON-STAFF] - 01/05/24 2:00 pm (You have a 30 day post TAVR appointment in the valve clinic 01/05 @ 2 pm, and a 1 year post TAVR appointment in the valve clinic 11/02 @ 12:30 pm) Ambulatory/Diagnostic Orders: Basic Metabolic Panel [LAB.AMB] Location: None Selected Basic Metabolic Panel [LAB.AMB] Location: None Selected Complete Blood Count w/diff [LAB.AMB] Location: None Selected Complete Blood Count w/diff [LAB.AMB] Location: None Selected Activity/Diet/Wound Care/Special Instructions: DISCHARGE INSTRUCTIONS: 1. No driving for 1 week, or until physician gives their ok. 2. No lifting, pushing, or pulling more than 5-10 pounds for 1 week. 3. Hold both groins when you cough or sneeze for the next 2 weeks. Bruising is common, but report increased swelling, pain or fever >101F 4. Shower daily. No pool, hot tub, or bathtub for 1 week 5. No powders, lotions, ointments on incisions. 6. No straining, including for bowel movements. Use stool softner if necessary 7. Stairs are not an issue. Go slowly, using handrail and take 1 step at a time. Ambulate several times daily 8. Continue pain control per as needed orders. 9. Take only the medications listed on your discharge form 10. Eat low salt (limited to 2 grams or 2000 milligrams) daily, avoid adding salt, avoid canned/processed foods 11. Take your weight daily in the morning and record, bring with you to your follow up appointments 12. Keep all follow up appointments. You will need a valve clinic appointment at 30 days and 1 year post procedure for follow up 13. You have been referred to and are expected to begin Cardiac Rehab in approximately 4 weeks. 14. You will need antibiotics prior to any dental work, including cleanings, and any surgeries to prevent Endocarditis (bacterial infection in your heart) For any questions or concerns please call your valve coordinators: Monique or Rogelio @ Discharge Disposition: HOME SELF-CARE
[2023-12-01 16:37] VITALS: BP 145/66; PULSE 66; RESP 21; TEMP 98.1
== END 2023-12-01 16:59 | disposition home or self-care (01) | DRG 267 ==
LOC: 2ORMAIN 05:59 → 2SICU 11:13
PROVIDERS: ADMIT Internal Medicine; ATTEND Internal Medicine
PROC: B41D1ZZ Fluoroscopy of Aorta and Bilateral Lower Extremity Arteries using Low Osmolar Contrast (ICD-10-PCS; principal; 2023-11-30 10:15)
PROC: B24BZZ4 Ultrasonography of Heart with Aorta, Transesophageal (ICD-10-PCS; principal; 2023-11-30 10:15)
PROC: 02RF38Z Replacement of Aortic Valve with Zooplastic Tissue, Percutaneous Approach (ICD-10-PCS; principal; 2023-11-30 10:15)
DX: I35.0 Nonrheumatic aortic (valve) stenosis (principal); I42.9 Cardiomyopathy, unspecified; I50.22 Chronic systolic (congestive) heart failure; I35.8 Other nonrheumatic aortic valve disorders; I44.1 Atrioventricular block, second degree; I48.0 Paroxysmal atrial fibrillation; N40.0 Benign prostatic hyperplasia without lower urinary tract symptoms; I25.10 Atherosclerotic heart disease of native coronary artery without angina pectoris; I25.2 Old myocardial infarction; F03.90 Unspecified dementia, unspecified severity, without behavioral disturbance, psychotic disturbance, mood disturbance, and anxiety; E78.5 Hyperlipidemia, unspecified; E11.51 Type 2 diabetes mellitus with diabetic peripheral angiopathy without gangrene; Z79.4 Long term (current) use of insulin; Z95.1 Presence of aortocoronary bypass graft; Z60.2 Problems related to living alone; I11.0 Hypertensive heart disease with heart failure; Z87.820 Personal history of traumatic brain injury; Z91.81 History of falling
CPT/HCPCS: 33210; 33361; 71045; 80048; 80053; 82330; 83735; 85025; 93306; 93312; 93320; 93325

== ENCOUNTER 2023-12-05 15:43 | Inpatient (IN) | payer MEDICARE, BC ==
--- NOTE | 2023-12-05 16:15 | ED ---
General Adult HPI - General Source: patient, RN notes reviewed Mode of arrival: wheelchair Limitations: no limitations <Zenobia Pike - Last Filed: 12/05/23 16:13> - History of Present Illness -: days(s) Radiation: non-radiation Severity scale (1-10): 7 Quality: stabbing Consistency: constant Improves with: none Worsens with: none Associated Symptoms: confusion, shortness of breath Treatments Prior to Arrival: none <Chuck Rodríguez - Last Filed: 12/10/23 16:42> - General Chief complaint: Shortness of Breath Stated complaint: poss Post op Comp Time Seen by Provider: 12/05/23 16:13 - History of Present Illness Initial comments: Patient is a 78-year-old male presented ER with chief complaint of generalized weakness. Patient recently underwent a TAVR with Dr. Hodges. Daughter is stating he is having chills and difficulty breathing. Also reporting pedal edema. (Zenobia Pike) This is a 78-year-old male to the emergency department for evaluation of overall weakness, patient does have recent heart surgery is presenting for shortness of breath today. Patient has significant complaints regarding symptoms, patient is presented today for evaluation of weakness maybe some chills or fever, swelling of lower extremities (Chuck Rodríguez) - Related Data Home Medications Medication Instructions Recorded Confirmed Omeprazole [PriLOSEC] 20 mg PO DAILY 02/23/15 12/05/23 Tamsulosin HCl [Flomax] 0.4 mg PO DAILY 03/07/17 12/05/23 Insulin Aspart [NovoLOG Flexpen] See Protocol SQ BID-W/MEALS 11/08/19 12/05/23 Amitriptyline HCl [Elavil] 25 mg PO HS 03/16/22 12/05/23 Potassium Chloride ER [K-Dur 10] 10 meq PO HS 03/16/22 12/05/23 Insulin Glargine,Hum.rec.anlog 56 unit SQ W/LUNCH 04/05/22 12/05/23 [Lantus Solostar Pen] amLODIPine [Norvasc] 5 mg PO DAILY 02/21/23 12/05/23 Albuterol Nebulized [Ventolin 2.5 mg INHALATION RT-QID PRN 04/16/23 12/05/23 Nebulized] Fluticasone Nasal [place] [Flonase 2 spr EA NOSTRIL DAILY PRN 04/16/23 12/05/23 Nasal [place]] Atorvastatin [Lipitor] 80 mg PO HS 05/11/23 12/05/23 Cholecalciferol [Vitamin D3 (125 125 mcg PO HS 05/11/23 12/05/23 Mcg = 5000 Iu)] Furosemide [Lasix] 40 mg PO DAILY 05/11/23 12/05/23 Empagliflozin [Jardiance] 10 mg PO DAILY 11/23/23 12/05/23 Apixaban [Eliquis] 5 mg PO DIRECTED 12/05/23 12/05/23 Previous Rx's Medication Instructions Recorded Donepezil [Aricept] 10 mg PO HS #30 03/13/15 Acetaminophen Tab [Tylenol] 650 mg PO Q4HR PRN tab 12/01/23 lisinopriL [Zestril] 10 mg PO DAILY #30 tab 12/10/23 Allergies Allergy/AdvReac Type Severity Reaction Status Date / Time No Known Allergies Allergy Verified 12/05/23 19:33 Review of Systems ROS Other: All systems not noted in ROS Statement are negative. <Zenobia Pike - Last Filed: 12/05/23 16:13> ROS Other: All systems not noted in ROS Statement are negative. <Chuck Rodríguez - Last Filed: 12/10/23 16:42> ROS Statement: Those systems with pertinent positive or pertinent negative responses have been documented in the HPI. Past Medical History Past Medical History: Coronary Artery Disease (CAD), Heart Failure, COPD, Dementia, Diabetes Mellitus, GERD/Reflux, Hyperlipidemia, Hypertension, Memory Impairment, Myocardial Infarction (ID), Neurologic Disorder, Osteoarthritis (OA), Pneumonia, Prostate Disorder, Vascular Disorder Additional Past Medical History / Comment(s): Hx falls and diarrhea/incontinence since diagnosed with Covid Oct 2022, daughter thinks he may have had a minor heart attack when he had Covid as well. 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 PAD. Enlarged prostate. Chronic back pain. Hx bronchitis. Sinus issues. Last Myocardial Infarction Date:: 2014 History of Any Multi-Drug Resistant Organisms: None Reported Past Surgical History: Coronary Bypass/CABG, Orthopedic Surgery Additional Past Surgical History / Comment(s): 2014 CABG 4 vessel/bioprosthetic aortic valve, angiograms, aortagram with bilateral run-offs, PTBA/atherectomy left leg, left foot surgery for crush injury, colonoscopy, bilateral cataract removals. Past Anesthesia/Blood Transfusion Reactions: No Reported Reaction Past Psychological History: Anxiety, Depression Smoking Status: Never smoker Past Alcohol Use History: Heavy Past Drug Use History: None Reported - Past Family History Father History Unknown: Yes Family Medical History: Congestive Heart Failure (CHF) Mother History Unknown: Yes Family Medical History: Congestive Heart Failure (CHF) <Zenobia Pike - Last Filed: 12/05/23 16:13> General Exam Limitations: no limitations <Zenobia Pike - Last Filed: 12/05/23 16:13> Limitations: no limitations General appearance: alert, in no apparent distress, anxious, in distress Head exam: Present: atraumatic, normocephalic, normal inspection Eye exam: Present: normal appearance, PERRL, EOMI. Absent: scleral icterus, conjunctival injection, periorbital swelling ENT exam: Present: normal exam, mucous membranes moist Neck exam: Present: normal inspection. Absent: tenderness, meningismus, lymphadenopathy Respiratory exam: Present: normal lung sounds bilaterally. Absent: respiratory distress, wheezes, rales, rhonchi, stridor Cardiovascular Exam: Present: regular rate, normal rhythm, normal heart sounds. Absent: systolic murmur, diastolic murmur, rubs, gallop, clicks GI/Abdominal exam: Present: soft, normal bowel sounds. Absent: distended, tenderness, guarding, rebound, rigid Extremities exam: Present: normal inspection, full ROM, normal capillary refill. Absent: tenderness, pedal edema, joint swelling, calf tenderness Back exam: Present: normal inspection Neurological exam: Present: alert, oriented X3, CN II-XII intact Psychiatric exam: Present: normal affect, normal mood Skin exam: Present: warm, dry, intact, normal color. Absent: rash <Chuck Rodríguez - Last Filed: 12/10/23 16:42> - General Exam Comments Initial Comments: Visual Physical Exam Vital signs reviewed General: Well-appearing, nontoxic, no acute distress. Head: Normocephalic, atraumatic Eyes: PERRLA, EOMI ENT: Airway patent Chest: Nonlabored breathing Skin: No visual rash, normal skin tone Neuro: Alert and oriented 3 Musculoskeletal: No gross abnormalities (Zenobia Pike) Course <Chuck Rodríguez - Last Filed: 12/10/23 16:42> Vital Signs 12/05/23 12/05/23 12/05/23 15:47 19:28 20:24 Temperature 98.6 F Pulse Rate 61 55 L 64 Respiratory 22 20 Rate Blood Pressure 129/45 98/49 O2 Sat by Pulse 96 91 L Oximetry 12/05/23 12/05/23 12/05/23 20:34 21:30 22:57 Temperature Pulse Rate 68 49 L 50 L Respiratory 18 18 Rate Blood Pressure 105/93 116/75 O2 Sat by Pulse 97 98 Oximetry 12/06/23 12/06/23 12/06/23 03:00 07:40 09:00 Temperature Pulse Rate 48 L 82 52 L Respiratory 15 18 18 Rate Blood Pressure 119/51 143/66 O2 Sat by Pulse 94 L 95 97 Oximetry 12/06/23 12/06/23 12/06/23 09:27 11:51 12:45 Temperature Pulse Rate 45 L 58 L 70 Respiratory 18 18 20 Rate Blood Pressure 142/54 134/69 163/63 O2 Sat by Pulse 95 96 98 Oximetry 12/06/23 12/06/23 12/06/23 13:30 14:13 15:00 Temperature Pulse Rate 61 Respiratory 18 Rate Blood Pressure 138/64 O2 Sat by Pulse 97 97 95 Oximetry 12/06/23 12/06/23 19:00 21:59 Temperature 98.0 F Pulse Rate 47 L 55 L Respiratory 18 20 Rate Blood Pressure 126/36 136/57 O2 Sat by Pulse 96 97 Oximetry - Reevaluation(s) Reevaluation #1: 12/05/23 23:41 Medical record is reviewed (Chuck Rodríguez) Reevaluation #2: 12/05/23 23:41 Patient symptoms are relatively improving he is in no current respiratory distress (Chuck Rodríguez) Reevaluation #3: 12/05/23 23:42 Patient family informed of results and questions answered (Chuck Rodríguez) Reevaluation #4: 12/05/23 23:42 Was pt. sent in by a medical professional or institution (, PA, CHAIR MECHANIC, urgent care, hospital, or shelter...) When possible be specific @ -no Did you speak to anyone other than the patient for history (EMS, parent, family, police, friend...)? What history was obtained from this source @ -no Did you review nursing and triage notes (agree or disagree)? Why? @ -agree Are old charts reviewed (outside hosp., previous admission, EMS record, old EKG, old radiological studies, urgent care reports/EKG's, shelter records)? Report findings @ -yes Differential Diagnosis (chest pain, altered mental status, abdominal pain women, abdominal pain men, vaginal bleeding, weakness, fever, dyspnea, syncope, headache, dizziness, GI bleed, back pain, seizure, CVA, palpatations, mental health, musculoskeletal)? @ -prior EKG interpreted by me (3pts min.). @ -yes X-rays interpreted by me (1pt min.). @ -yes positive for CHF CT interpreted by me (1pt min.). @ -yes positive for CHF U/S interpreted by me (1pt. min.). @ -no What testing was considered but not performed or refused? (CT, X-rays, U/S, labs)? Why? @ -none What meds were considered but not given or refused? Why? @ -none Did you discuss the management of the patient with other professionals (professionals i.e. , PA, CHAIR MECHANIC, lab, RT, psych nurse, neonatal social worker, lawyers, teacher, toxics program officer, field nurse case manager)? Give summary @ -no Was smoking cessation discussed for >3mins.? @ -no Was critical care preformed (if so, how long)? @ -yes31 Were there social determinants of health that impacted care today? How? (Homelessness, low income, unemployed, alcoholism, drug addiction, transportation, low edu. Level, literacy, decrease access to med. care, fpc, rehab)? @ -none Was there de-escalation of care discussed even if they declined (Discuss DNR or withdrawal of care, Hospice)? DNR status @ -no What co-morbidities impacted this encounter? (DM, HTN, Smoking, COPD, CAD, Cancer, CVA, ARF, Chemo, Hep., AIDS, mental health diagnosis, sleep apnea, morbid obesity)? @ -none Was patient admitted / discharged? Hospital course, mention meds given and route, prescriptions, significant lab abnormalities, going to OR and other pertinent info. @ - 78 male to the emergency department for evaluation of shortness of breath unable to give current complaints but does have significant CHF here in the ER and will admit for diuresis Admitted Undiagnosed new problem with uncertain prognosis? @ -no Drug Therapy requiring intensive monitoring for toxicity (Heparin, Nitro, Insulin, Cardizem)? @ -no Were any procedures done? @ -no Diagnosis/symptom? @ -CHF and dyspnea Acute, or Chronic, or Acute on Chronic? @ -Acute Uncomplicated (without systemic symptoms) or Complicated (systemic symptoms)? @ -Complicated Side effects of treatment? @ -no Exacerbation, Progression, or Severe Exacerbation? @ -exacerbation Poses a threat to life or bodily function? How? (Chest pain, USA, ID, pneumonia, PE, COPD, DKA, ARF, appy, cholecystitis, CVA, Diverticulitis, Homicidal, Suicidal, threat to staff... and all critical care pts) @ -yes with extreme of age (Chuck Rodríguez) Reevaluation #5: 12/05/23 23:42 Differential Dyspnea: Coronary syndrome, arrhythmia, tamponade, asthma, COPD, pulmonary embolism, pneumonia, pneumothorax, pulmonary effusion, anaphylaxis, diabetic ketoacidosis, flailed chest, pulmonary contusion, diaphragmatic rupture, anemia, neuromuscular, this is not meant to be an all-inclusive list. (Chuck Rodríguez) - Consultations Consultation #1: With sound who agrees to admit the patient (Chuck Rodríguez) EKG Findings - EKG Comments: EKG Findings:: EKG is sinus 61 ME 307 QRS 130 QTC 48 - EKG Results: EKG: interpreted by ERMD <Chuck Rodríguez - Last Filed: 12/10/23 16:42> Medical Decision Making <Zenobia Pike - Last Filed: 12/05/23 16:13> - Lab Data Result diagrams: 12/07/23 09:03 12/10/23 07:55 - EKG Data -: EKG Interpreted by Me - Radiology Data Radiology results: report reviewed (Chest pain CTA of the chest are positive for CHF), image reviewed <Chuck Rodríguez - Last Filed: 12/10/23 16:42> - Medical Decision Making I performed the quick note portion of the exam. Electronically signed by Zenobia Pike PA-C (Zenobia Pike) 78 male to the emergency department for evaluation of shortness of breath unable to give current complaints but does have significant CHF here in the ER and will admit for diuresis (Chuck Rodríguez) - Lab Data Lab Results 12/05/23 12/05/23 12/05/23 Range/Units 17:49 17:49 17:49 WBC 9.5 (3.8-10.6) k/uL RBC 4.73 (4.30-5.90) m/uL Hgb 13.0 (13.0-17.5) gm/dL Hct 39.1 (39.0-53.0) % MCV 82.6 (80.0-100.0) fL MCH 27.6 (25.0-35.0) pg MCHC 33.4 (31.0-37.0) g/dL RDW 16.0 H (11.5-15.5) % Plt Count 152 (150-450) k/uL MPV 7.5 Neutrophils % 73 % Lymphocytes % 13 % Monocytes % 7 % Eosinophils % 5 % Basophils % 1 % Neutrophils # 7.0 (1.3-7.7) k/uL Lymphocytes # 1.2 (1.0-4.8) k/uL Monocytes # 0.6 (0-1.0) k/uL Eosinophils # 0.5 (0-0.7) k/uL Basophils # 0.1 (0-0.2) k/uL PT 11.1 (10.0-12.5) sec INR 1.0 (<1.2) APTT 27.0 (22.0-30.0) sec D-Dimer 1.55 H (<0.60) mg/L FEU Sodium 137 (137-145) mmol/L Potassium 4.6 (3.5-5.1) mmol/L Chloride 109 H (98-107) mmol/L Carbon Dioxide 18 L (22-30) mmol/L Anion Gap 10 mmol/L BUN 31 H (9-20) mg/dL Creatinine 1.10 (0.66-1.25) mg/dL Est GFR (CKD-EPI)AfAm 75 (>60 ml/min/1.73 sqM) Est GFR (CKD-EPI)NonAf 65 (>60 ml/min/1.73 sqM) Glucose 135 H (74-99) mg/dL Plasma Lactic Acid Feilx (0.7-2.0) mmol/L Calcium 8.1 L (8.4-10.2) mg/dL Magnesium 2.3 (1.6-2.3) mg/dL Total Bilirubin 2.0 H (0.2-1.3) mg/dL AST 30 (17-59) U/L ALT 19 (4-49) U/L Alkaline Phosphatase 104 (38-126) U/L Troponin I (0.000-0.034) ng/mL NT-Pro-B Natriuret Pep 4330 pg/mL Total Protein 6.5 (6.3-8.2) g/dL Albumin 3.2 L (3.5-5.0) g/dL Influenza Type A (PCR) (Not Detectd) Influenza Type B (PCR) (Not Detectd) RSV (PCR) (Not Detectd) SARS-CoV-2 (PCR) (Not Detectd) 12/05/23 12/05/23 12/05/23 Range/Units 17:49 17:49 17:49 WBC (3.8-10.6) k/uL RBC (4.30-5.90) m/uL Hgb (13.0-17.5) gm/dL Hct (39.0-53.0) % MCV (80.0-100.0) fL MCH (25.0-35.0) pg MCHC (31.0-37.0) g/dL RDW (11.5-15.5) % Plt Count (150-450) k/uL MPV Neutrophils % % Lymphocytes % % Monocytes % % Eosinophils % % Basophils % % Neutrophils # (1.3-7.7) k/uL Lymphocytes # (1.0-4.8) k/uL Monocytes # (0-1.0) k/uL Eosinophils # (0-0.7) k/uL Basophils # (0-0.2) k/uL PT (10.0-12.5) sec INR (<1.2) APTT (22.0-30.0) sec D-Dimer (<0.60) mg/L FEU Sodium (137-145) mmol/L Potassium (3.5-5.1) mmol/L Chloride (98-107) mmol/L Carbon Dioxide (22-30) mmol/L Anion Gap mmol/L BUN (9-20) mg/dL Creatinine (0.66-1.25) mg/dL Est GFR (CKD-EPI)AfAm (>60 ml/min/1.73 sqM) Est GFR (CKD-EPI)NonAf (>60 ml/min/1.73 sqM) Glucose (74-99) mg/dL Plasma Lactic Acid Felix 1.6 (0.7-2.0) mmol/L Calcium (8.4-10.2) mg/dL Magnesium (1.6-2.3) mg/dL Total Bilirubin (0.2-1.3) mg/dL AST (17-59) U/L ALT (4-49) U/L Alkaline Phosphatase (38-126) U/L Troponin I 0.072 H* (0.000-0.034) ng/mL NT-Pro-B Natriuret Pep pg/mL Total Protein (6.3-8.2) g/dL Albumin (3.5-5.0) g/dL Influenza Type A (PCR) Not Detected (Not Detectd) Influenza Type B (PCR) Not Detected (Not Detectd) RSV (PCR) Not Detected (Not Detectd) SARS-CoV-2 (PCR) Not Detected (Not Detectd) Critical Care Time Critical Care Time: Yes Total Critical Care Time: 31 <Chuck Rodríguez - Last Filed: 12/10/23 16:42> Disposition <Zenobia Pike - Last Filed: 12/05/23 16:13> Is patient prescribed a controlled substance at d/c from ED?: No Time of Disposition: 19:40 <Chuck Rodríguez - Last Filed: 12/10/23 16:42> Clinical Impression: HTN (hypertension), Generalized weakness, Congestive heart failure, Pleural effusion, Dyspnea, Chest pain, Shortness of breath, Non-ST elevation myocardial infarction (NSTEMI), Dehydration, Pulmonary edema, CHF exacerbation, Elevated troponin, Acute respiratory failure with hypoxia, Altered mental status Disposition: ADMITTED IP TO THIS HOSP Condition: Good
--- NOTE | 2023-12-05 16:46 | XR ---
EXAMINATION TYPE: XR chest 2V DATE OF EXAM: 12/05/2023 4:31 PM CLINICAL INDICATION:Male, 78 years old with history of difficulty breathing; [facility] COMPARISON: Chest radiographs from 12/01/2023. TECHNIQUE: XR chest 2V Frontal and lateral views of the chest. FINDINGS: Lungs/Pleura: There is no evidence of pleural effusion, focal consolidation, or pneumothorax. Pulmonary vascularity: Unremarkable. Heart/mediastinum: Cardiomediastinal silhouette is unremarkable. Musculoskeletal: No acute osseous pathology. Midline sternotomy wires are noted. Other findings: None IMPRESSION: Low lung volumes with a generalized hazy appearance which could represent atelectasis versus pulmonar y edema correlate with serum BNP.
[2023-12-05 18:58] LABS: Basophils # (A) 0.1 k/uL (0-0.2); Basophils % (A) 1 %; Eosinophils # (A) 0.5 k/uL (0-0.7); Eosinophils % (A) 5 %; HCT 39.1 % (39.0-53.0); Lymphocytes # (A) 1.2 k/uL (1.0-4.8); Lymphocytes % (A) 13 %; MCH 27.6 pg (25.0-35.0); MCHC 33.4 g/dL (31.0-37.0); MCV 82.6 fL (80.0-100.0); Mean Platelet Volume 7.5; Monocytes # (A) 0.6 k/uL (0-1.0); Monocytes % (A) 7 %; Neutrophils % (A) 73 %; Platelet Count 152 k/uL (150-450); RBC 4.73 m/uL (4.30-5.90); WBC 9.5 k/uL (3.8-10.6)
[2023-12-05 18:59] LABS: ALT 19 U/L (4-49); African American GFR (CKD) 75 (>60 ml/min/1.73 sqM); Albumin 3.2 g/dL (3.5-5.0); Anion Gap 10 mmol/L; Blood Urea Nitrogen 31 mg/dL (9-20); Calcium 8.1 mg/dL (8.4-10.2); Carbon Dioxide 18 mmol/L (22-30); Chloride 109 mmol/L (98-107); Glucose 135 mg/dL (74-99); Magnesium 2.3 mg/dL (1.6-2.3); Non-African American GFR(CKD) 65 (>60 ml/min/1.73 sqM); Sodium 137 mmol/L (137-145); Total Protein 6.5 g/dL (6.3-8.2)
[2023-12-05 19:07] LABS: NT-Pro-B-Type Natriuretic Pept 4330 pg/mL
[2023-12-05 19:12] LABS: Prothrombin Time 11.1 sec (10.0-12.5)
[2023-12-05 19:13] LABS: AST 30 U/L (17-59); Alkaline Phosphatase 104 U/L (38-126); Potassium 4.6 mmol/L (3.5-5.1)
[2023-12-05] MEDS ORDERED: ONDANSETRON 4 MG/2 ML VIAL IVP PRN (19:36)
[2023-12-05] MEDS ORDERED: IPRATROPIUM-ALBUTEROL 3 ML NEB INHALATION PRN (19:36)
[2023-12-05] MEDS ORDERED: IPRATROPIUM-ALBUTEROL 3 ML NEB INHALATION STA (19:36)
[2023-12-05] MEDS ORDERED: MORPHINE SULFATE 4 MG/ML SYRINGE IV PRN (19:36)
[2023-12-05] MEDS ORDERED: NALOXONE 0.4 MG/ML 1 ML VIAL IV PRN (19:36)
--- NOTE | 2023-12-05 21:03 | CT ---
EXAMINATION TYPE: CT angio chest CT DLP: 809.4 mGycm, Automated exposure control for dose reduction was used. DATE OF EXAM: 12/05/2023 8:20 PM COMPARISON: Chest radiograph from same day. CLINICAL INDICATION:Male, 78 years old with history of pe; R/O PE. TECHNIQUE/CONTRAST: CTA scan of the thorax is performed with IV Contrast, patient injected with 100 ml mL of Isovue 370, MIP images are created and reviewed these are created on a separate workstation. FINDINGS: Pulmonary Artery: There is no evidence for a filling defect within the pulmonary vasculature to sugge st acute pulmonary embolism. The pulmonary artery is of normal size. Lungs/Pleura: Small trace small bilateral pleural effusions. Intralobular septal thickening. No focal airspace consolidation or pneumothorax. Airway: Large airways are patent. Heart: Aortic valve repair changes. Has mildly enlarged for size. Coronary artery atherosclerosis. Va sculature: No evidence of aortic aneurysm. Mild reflux of contrast is seen within the IVC. Mediastinum: Right paratracheal lymph node is prominent mildly enlarged measuring up to 13 mm in shor t axis. Musculoskeletal: Moderate degenerative disc disease changes are present throughout the thoracolumbar spine. Soft Tissues: Unremarkable. Lower neck: No significant findings. Upper Abdomen: Gastrohepatic ligament lymph node is a prominent size measuring up to 9.9 mm. IMPRESSION: 1. Respiratory motion limited exam. No evidence of central pulmonary embolism. Limited evaluation of the segmental and subsegmental branches. 2. Cardiomegaly with pulmonary vascular congestion. Correlate serum BNP for congestive heart failure. 3. Mildly enlarged lymph nodes in the upper abdomen and in the mediastinum which are stable from 2022 and likely reactive.
[2023-12-05] MEDS: FUROSEMIDE 10 MG/ML 4 ML VIAL IV SCH ×2 (21:30→23:59)
--- NOTE | 2023-12-06 01:14 | P.CNPUL ---
History of Present Illness Consult date: 12/06/23 Requesting physician: Chuck Rodríguez Reason for consult: dyspnea Chief complaint: Shortness of breath, lower extremity swelling, and weakness History of present illness: I am seeing this patient in new consultation today 12/06/2023 in the emergency room after he presented with several days of shortness of breath, lower extremity swelling, and weakness. Of note, he has history of severe aortic valve stenosis and recently underwent a transcatheter aortic valve replacement on November 30. Other pertinent medical history includes coronary artery disease with previous CABG, diabetes mellitus, hyperlipidemia, hypertension, peripheral vascular disease, BPH, among other things. Denies any history of COPD or asthma. Denies ever being a tobacco smoker. Patient himself is technically a poor historian. He may have history of dementia, takes Aricept at home. He states he came to the hospital because his daughter brought him in. Apparently, the patient has been experiencing several days of ongoing shortness of breath, weakness, and lower extremity swelling. Admits orthopnea and sleeps with 3 pillows at night. Denies any chest pain, heart palpitations, syncopal events. Denies any infectious symptoms such as fever, cough, chest pain, hemoptysis. Chest CTA on arrival did not show any evidence of large central pulmonary embolism. There was cardiomegaly with pulmonary vascular congestion and bilateral pleural effusions left greater than right. There was also some mildly enlarged lymph nodes in the upper abdomen and mediastinum which were stable from previous exam and likely reactive. NT proBNP also elevated at 4330, supporting evidence of CHF. Patient is currently sitting up in the bedside recliner, on 2 L/m nasal cannula, not in any distress at rest. ECG on arrival showed a sinus rhythm with bigeminal unifocal PVCs. CBC on arrival unremarkable. No evidence of leukocytosis. BMP on arrival: Sodium 137, potassium 4.6, chloride 109, serum 6 bicarb 18, BUN 31, creatinine 1.1, glucose 135. Lactic acid level I.6. Troponins mildly elevated at 0.072 and 0.065. Negative for influenza, RSV, COVID-19. Afebrile. Vital signs are stable. Review of Systems REVIEW OF SYSTEMS: CONSTITUTIONAL: Denies any recent significant weight loss or weight gain. EYES: Denies change in vision. EARS, NOSE, MOUTH, THROAT: Denies headaches, denies sore throat. CARDIOVASCULAR: Denies chest pain, palpitations or syncopal episodes. Admits increased lower extremity swelling. RESPIRATORY: See HPI GASTROINTESTINAL: Denies change in appetite, abdominal pain, nausea and vomiting, or diarrhea GENITOURINARY: Denies hematuria, denies infections. MUSKULOSKELETAL: Denies pain, denies swelling. INTEGUMENTARY: Denies rash, denies eczema. NEUROLOGICAL: Denies recent memory loss, no recent seizure activity. PSYCHIATRIC: Denies anxiety, denies depression. HEMATOLOGIC/LYMPHATIC: Denies anemia, denies enlarged lymph node Past Medical History Past Medical History: Coronary Artery Disease (CAD), Heart Failure, COPD, Dementia, Diabetes Mellitus, GERD/Reflux, Hyperlipidemia, Hypertension, Memory Impairment, Myocardial Infarction ([place]), Neurologic Disorder, Osteoarthritis (OA), Pneumonia, Prostate Disorder, Vascular Disorder Additional Past Medical History / Comment(s): Hx falls and diarrhea/incontinence since diagnosed with Covid Oct 2022, daughter thinks he may have had a minor heart attack when he had Covid as well. 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 PAD. Enlarged prostate. Chronic back pain. Hx bronchitis. Sinus issues. Last Myocardial Infarction Date:: 2014 History of Any Multi-Drug Resistant Organisms: None Reported Past Surgical History: Coronary Bypass/CABG, Orthopedic Surgery Additional Past Surgical History / Comment(s): 2014 CABG 4 vessel/bioprosthetic aortic valve, angiograms, aortagram with bilateral run-offs, PTBA/atherectomy left leg, left foot surgery for crush injury, colonoscopy, bilateral cataract removals. Past Anesthesia/Blood Transfusion Reactions: No Reported Reaction Past Psychological History: Anxiety, Depression Smoking Status: Never smoker Past Alcohol Use History: Heavy Past Drug Use History: None Reported - Past Family History Father History Unknown: Yes Family Medical History: Congestive Heart Failure (CHF) Mother History Unknown: Yes Family Medical History: Congestive Heart Failure (CHF) Medications and Allergies Home Medications Medication Instructions Recorded Confirmed Type Omeprazole [PriLOSEC] 20 mg PO DAILY 02/23/15 12/05/23 History Donepezil [Aricept] 10 mg PO HS #30 03/13/15 12/05/23 Rx Tamsulosin HCl [Flomax] 0.4 mg PO DAILY 03/07/17 12/05/23 History Insulin Aspart [NovoLOG Flexpen] See Protocol SQ BID-W/MEALS 11/08/19 12/05/23 History Amitriptyline HCl [Elavil] 25 mg PO HS 03/16/22 12/05/23 History Oxybutynin Chloride [oxyBUTYnin 10 mg PO DAILY 03/16/22 12/05/23 History chloride ER] Potassium Chloride ER [K-Dur 10] 10 meq PO HS 03/16/22 12/05/23 History Insulin Glargine,Hum.rec.anlog 56 unit SQ W/LUNCH 04/05/22 12/05/23 History [Lantus Solostar Pen] amLODIPine [Norvasc] 5 mg PO DAILY 02/21/23 12/05/23 History Albuterol Nebulized [Ventolin 2.5 mg INHALATION RT-QID PRN 04/16/23 12/05/23 History Nebulized] Fluticasone Nasal [place] [Flonase 2 spr EA NOSTRIL DAILY PRN 04/16/23 12/05/23 History Nasal [place]] Atorvastatin [Lipitor] 80 mg PO HS 05/11/23 12/05/23 History Cholecalciferol [Vitamin D3 (125 125 mcg PO HS 05/11/23 12/05/23 History Mcg = 5000 Iu)] Furosemide [Lasix] 40 mg PO DAILY 05/11/23 12/05/23 History lisinopriL [Zestril] 2.5 mg PO DAILY 05/11/23 12/05/23 History Empagliflozin [Jardiance] 10 mg PO DAILY 11/23/23 12/05/23 History Semaglutide [Rybelsus] 3 mg PO DAILY 11/23/23 12/05/23 History Acetaminophen Tab [Tylenol] 650 mg PO Q4HR PRN tab 12/01/23 12/05/23 Rx Apixaban [Eliquis] 5 mg PO DIRECTED 12/05/23 12/05/23 History Allergies Allergy/AdvReac Type Severity Reaction Status Date / Time No Known Allergies Allergy Verified 12/05/23 19:33 Physical Exam Vitals: Vital Signs Temp Pulse Resp BP Pulse Ox 12/05/23 22:57 50 L 18 116/75 98 12/05/23 21:30 49 L 18 105/93 97 12/05/23 20:34 68 01/15/24 20:24 64 12/05/23 19:28 55 L 20 98/49 91 L 12/05/23 15:47 98.6 F 61 22 129/45 96 Intake and Output 12/05/23 12/05/23 12/06/23 14:59 22:59 06:59 Other: Weight 108.862 kg GENERAL EXAM: Alert, 78-year-old obese white male, sitting up in the bedside recliner, comfortable in no apparent distress at rest. HEAD: Normocephalic and atraumatic EYES: Normal reaction of pupils, equal size. NOSE: Clear with pink turbinates. THROAT: No erythema or exudates. NECK: No masses, no JVD. CHEST: No chest wall deformity. remote appearing sternotomy incsion. LUNGS: Equal air entry with no crackles, wheeze, rhonchi or dullness. On 2 L/m nasal cannula. No conversational dyspnea or accessory muscle use.. CVS: S1 and S2 normal with no audible murmur, regularly irregular rhythm. No extra heart sounds ABDOMEN: Obese abdomen, bowel hepatosplenomegaly, active bowel sounds, no guarding or rigidity. SPINE: No scoliosis or deformity SKIN: Chronic venous stasis changes to the bilateral lower extremities CENTRAL NERVOUS SYSTEM: No focal deficits, tone is normal in all 4 extremities. EXTREMITIES: There is 3+ bilateral lower extremity edema. No clubbing, or cyanosis. Peripheral pulses are weak throughout. Extremities are warm. Results - Laboratory Findings CBC and BMP: 12/05/23 17:49 12/05/23 17:49 PT/INR, D-dimer PT 11.1 sec (10.0-12.5) 12/05/23 17:49 INR 1.0 (<1.2) 12/05/23 17:49 D-Dimer 1.55 mg/L FEU (<0.60) H 12/05/23 17:49 Abnormal lab findings: Abnormal Labs 12/05/23 12/05/23 12/05/23 17:49 17:49 17:49 RDW 16.0 H D-Dimer 1.55 H Chloride 109 H Carbon Dioxide 18 L BUN 31 H Glucose 135 H Calcium 8.1 L Total Bilirubin 2.0 H Troponin I Albumin 3.2 L 12/05/23 12/05/23 17:49 20:28 RDW D-Dimer Chloride Carbon Dioxide BUN Glucose Calcium Total Bilirubin Troponin I 0.072 H* 0.065 H* Albumin - Diagnostic Findings Chest x-ray: image reviewed CT scan - chest: image reviewed Assessment and Plan Assessment: Acute hypoxemic respiratory failure, likely secondary to an exacerbation of systolic congestive heart failure, chest CTA demonstrates cardiomegaly, pulmonary vascular congestion, and small bilateral pleural effusions, left greater than right. No focal consolidations or evidence of pneumonia. NT proBNP also elevated at 4330. History of severe aortic valve stenosis, status post transcatheter aortic valve replacement on November 30 Mildly elevated troponins, possibly related to recent cardiac procedure. Bigeminal PVCs Coronary artery disease, with history of CABG Diabetes mellitus type 2, insulin-dependent History of hyperlipidemia History of hypertension History of peripheral vascular disease History of atrial fibrillation History of benign prostatic hyperplasia Lifelong non-smoker Plan: Patient's medications, labs, imaging reviewed. Continue supplemental oxygen Agree with diuresis, currently receiving Lasix 40 mg 3 times a day. Repeat 2-D echocardiogram pending for the morning Cardiology was also added to the case. We will continue to follow I have personally seen and examined the patient, performed the documentation and the assessment and plan as written. Number of minutes spent on the visit:20 Time with Patient: Greater than 30
--- NOTE | 2023-12-06 03:17 | P.HPIM ---
History of Present Illness H&P Date: 12/05/23 Patient is a 78-year-old male with an extensive PMH including systolic CHF, CAD status post CABG, status post TAVR, type II DM, dementia, hypertension, hyperlipidemia, BPH, and A. fib who presents to the emergency room with complaints of shortness of breath. History supplemented by the patient's da ughter at the bedside. Of note, the patient recently underwent TAVR at this facility on 11/30/23 and was discharged home on 12/01. Patient reportedly developed gradually worsening shortness of breath over the past few days with lower extremity edema and orthopnea. He also reports upper back discomfort at the time of interview, rated at a 5 out of 10. As per daughter, this pain is chronic in nature for him and usually subsides on its own. Patient had expressing chest discomfort, nausea, vomiting, or diaphoresis. He does reports 3 pillow orthopnea at home. Denies fever, chills, cough. Chest CTA revealed cardiomegaly with vascular congestion with enlarged mediastinal and upper abdomen lymph nodes suspected reactive. EKG reveals sinus rhythm with first-degree AV block with PVCs at 61 bpm with a left bundle branch block (not present on prior EKGs) as reviewed by me. Laboratory evaluation was remarkable for troponin 0.072, proBNP 4330, lactic acid 1.6, with respiratory viral panel negative. ED documentation reviewed and case discussed with ED provider. Review of systems: Pertinent positives and negatives as discussed in HPI, a complete review of systems was performed and all other systems are negative. Physical examination: Vital signs reviewed General: non toxic, no distress, appears at stated age, morbidly obese Derm: Left foot plantar surface unstageable ulcer noted without surrounding erythema, tenderness, or induration Head: atraumatic, normocephalic, symmetric Eyes: EOMI, no lid lag, anicteric sclera, pupils equal round reactive to light ENT: Nose and ears atraumatic Neck: No cervical lymphadenopathy, trachea midline, supple Mouth: no lip lesion, mucus membranes moist Cardiovascular: S1S2 reg, no murmur, positive dorsalis pedis pulse bilateral, bilateral lower extremity chronic venous stasis changes noted with 1+ pitting edema Lungs: CTA bilateral, no rhonchi, no rales, no accessory muscle use Abdominal: soft, nontender to palpation, no guarding Ext: muscle strength 4 out of 5 in all 4 extremities grossly, no gross muscle atrophy, no contractures, Neuro: CN II-XI grossly intact, no gross focal neuro deficits Psych: Alert, oriented to person and place, not fully oriented to time Assessment: Acute systolic CHF exacerbation Elevated troponin, suspect due to ongoing CHF exacerbation Status post recent TAVR Chronic conditions: COPD, type II DM, dementia, hypertension, hyperlipidemia, BPH Imaging: Chest CTA revealed cardiomegaly with vascular congestion with enlarged mediastinal and upper abdomen lymph nodes suspected reactive. EKG reveals sinus rhythm with first-degree AV block with PVCs at 61 bpm with a left bundle branch block (not present on prior EKGs) as reviewed by me. Data Review: Laboratory evaluation was remarkable for troponin 0.072, proBNP 4330, lactic acid 1.6, with respiratory viral panel negative. Plan: Continue with Lasix 40 mg IV every 8 hourly Cardiology consulted Cardiac monitoring Trend troponin Intake and output Daily weights F/u Echocardiogram Insulin sliding scale and blood glucose monitoring Consult wound-care DVT prophylaxis: Eliquis The patient is admitted with an anticipated greater than 2 midnight stay for evaluation of acute CHF exacerbation CODE STATUS: Full Code Discussed with: Patient Anticipated discharge place: Home Past Medical History Past Medical History: Coronary Artery Disease (CAD), Heart Failure, COPD, Dementia, Diabetes Mellitus, GERD/Reflux, Hyperlipidemia, Hypertension, Memory Impairment, Myocardial Infarction ([place]), Neurologic Disorder, Osteoarthritis (OA), Pneumonia, Prostate Disorder, Vascular Disorder Additional Past Medical History / Comment(s): Hx falls and diarrhea/incontinence since diagnosed with Covid Oct 2022, daughter thinks he may have had a minor heart attack when he had Covid as well. 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 PAD. Enlarged prostate. Chronic back pain. Hx bronchitis. Sinus issues. Last Myocardial Infarction Date:: 2014 History of Any Multi-Drug Resistant Organisms: None Reported Past Surgical History: Coronary Bypass/CABG, Orthopedic Surgery Additional Past Surgical History / Comment(s): 2014 CABG 4 vessel/bioprosthetic aortic valve, angiograms, aortagram with bilateral run-offs, PTBA/atherectomy left leg, left foot surgery for crush injury, colonoscopy, bilateral cataract removals. Past Anesthesia/Blood Transfusion Reactions: No Reported Reaction Past Psychological History: Anxiety, Depression Smoking Status: Never smoker Past Alcohol Use History: Heavy Past Drug Use History: None Reported - Past Family History Father History Unknown: Yes Family Medical History: Congestive Heart Failure (CHF) Mother History Unknown: Yes Family Medical History: Congestive Heart Failure (CHF) Medications and Allergies Home Medications Medication Instructions Recorded Confirmed Type Omeprazole [PriLOSEC] 20 mg PO DAILY 02/23/15 12/05/23 History Donepezil [Aricept] 10 mg PO HS #30 03/13/15 12/05/23 Rx Tamsulosin HCl [Flomax] 0.4 mg PO DAILY 03/07/17 12/05/23 History Insulin Aspart [NovoLOG Flexpen] See Protocol SQ BID-W/MEALS 11/08/19 12/05/23 History Amitriptyline HCl [Elavil] 25 mg PO HS 03/16/22 12/05/23 History Oxybutynin Chloride [oxyBUTYnin 10 mg PO DAILY 03/16/22 12/05/23 History chloride ER] Potassium Chloride ER [K-Dur 10] 10 meq PO HS 03/16/22 12/05/23 History Insulin Glargine,Hum.rec.anlog 56 unit SQ W/LUNCH 04/05/22 12/05/23 History [Lantus Solostar Pen] amLODIPine [Norvasc] 5 mg PO DAILY 02/21/23 12/05/23 History Albuterol Nebulized [Ventolin 2.5 mg INHALATION RT-QID PRN 04/16/23 12/05/23 History Nebulized] Fluticasone Nasal [place] [Flonase 2 spr EA NOSTRIL DAILY PRN 04/16/23 12/05/23 History Nasal [place]] Atorvastatin [Lipitor] 80 mg PO HS 05/11/23 12/05/23 History Cholecalciferol [Vitamin D3 (125 125 mcg PO HS 05/11/23 12/05/23 History Mcg = 5000 Iu)] Furosemide [Lasix] 40 mg PO DAILY 05/11/23 12/05/23 History lisinopriL [Zestril] 2.5 mg PO DAILY 05/11/23 12/05/23 History Empagliflozin [Jardiance] 10 mg PO DAILY 11/23/23 12/05/23 History Semaglutide [Rybelsus] 3 mg PO DAILY 11/23/23 12/05/23 History Acetaminophen Tab [Tylenol] 650 mg PO Q4HR PRN tab 12/01/23 12/05/23 Rx Apixaban [Eliquis] 5 mg PO DIRECTED 12/05/23 12/05/23 History Allergies Allergy/AdvReac Type Severity Reaction Status Date / Time No Known Allergies Allergy Verified 12/05/23 19:33 Physical Exam Vitals: Vital Signs Temp Pulse Resp BP Pulse Ox 12/05/23 22:57 50 L 18 116/75 98 12/05/23 21:30 49 L 18 105/93 97 12/05/23 20:34 68 12/05/23 20:24 64 12/05/23 19:28 55 L 20 98/49 91 L 12/05/23 15:47 98.6 F 61 22 129/45 96 Intake and Output 12/05/23 12/05/23 12/06/23 14:59 22:59 06:59 Other: Weight 108.862 kg Results CBC & Chem 7: 12/05/23 17:49 12/05/23 17:49 Labs: Abnormal Lab Results - Last 24 Hours (Table) 12/05/23 12/05/23 12/05/23 Range/Units 17:49 17:49 17:49 RDW 16.0 H (11.5-15.5) % D-Dimer 1.55 H (<0.60) mg/L FEU Chloride 109 H (98-107) mmol/L Carbon Dioxide 18 L (22-30) mmol/L BUN 31 H (9-20) mg/dL Glucose 135 H (74-99) mg/dL Calcium 8.1 L (8.4-10.2) mg/dL Total Bilirubin 2.0 H (0.2-1.3) mg/dL Troponin I (0.000-0.034) ng/mL Albumin 3.2 L (3.5-5.0) g/dL 12/05/23 12/05/23 12/05/23 Range/Units 17:49 20:28 23:54 RDW (11.5-15.5) % D-Dimer (<0.60) mg/L FEU Chloride (98-107) mmol/L Carbon Dioxide (22-30) mmol/L BUN (9-20) mg/dL Glucose (74-99) mg/dL Calcium (8.4-10.2) mg/dL Total Bilirubin (0.2-1.3) mg/dL Troponin I 0.072 H* 0.065 H* 0.057 H* (0.000-0.034) ng/mL Albumin (3.5-5.0) g/dL
[2023-12-06 06:21] LABS: Glucose,Whole Blood 226 mg/dL (70-110)
[2023-12-06] MEDS: INSULIN ASPART (NovoLOG) 100 UNIT/ML VIAL SQ SCH ×4 (07:35→21:38)
[2023-12-06] MEDS: FUROSEMIDE 10 MG/ML 4 ML VIAL IV SCH ×2 (07:37→21:11)
[2023-12-06 08:10] LABS: Basophils # (A) 0.1 k/uL (0-0.2); Basophils % (A) 1 %; Eosinophils # (A) 0.6 k/uL (0-0.7); Eosinophils % (A) 6 %; HCT 38.9 % (39.0-53.0); Hypochromasia Slight; Lymphocytes # (A) 1.3 k/uL (1.0-4.8); Lymphocytes % (A) 14 %; MCH 28.2 pg (25.0-35.0); MCHC 33.5 g/dL (31.0-37.0); MCV 84.1 fL (80.0-100.0); Mean Platelet Volume 7.3; Monocytes # (A) 0.8 k/uL (0-1.0); Monocytes % (A) 9 %; Neutrophils # (A) 6.1 k/uL (1.3-7.7); Neutrophils % (A) 67 %; Platelet Count 163 k/uL (150-450); RBC 4.63 m/uL (4.30-5.90); RDW 15.9 % (11.5-15.5)
[2023-12-06 08:22] LABS: ALT 19 U/L (4-49); AST 22 U/L (17-59); African American GFR (CKD) 56 (>60 ml/min/1.73 sqM); Albumin 3.6 g/dL (3.5-5.0); Alkaline Phosphatase 128 U/L (38-126); Anion Gap 10 mmol/L; Blood Urea Nitrogen 35 mg/dL (9-20); Calcium 8.3 mg/dL (8.4-10.2); Carbon Dioxide 22 mmol/L (22-30); Chloride 106 mmol/L (98-107); Glucose 196 mg/dL (74-99); Magnesium 2.3 mg/dL (1.6-2.3); Non-African American GFR(CKD) 48 (>60 ml/min/1.73 sqM); Phosphorus 4.1 mg/dL (2.5-4.5); Potassium 4.2 mmol/L (3.5-5.1); Sodium 138 mmol/L (137-145); Total Bilirubin 1.8 mg/dL (0.2-1.3); Total Protein 6.9 g/dL (6.3-8.2)
[2023-12-06] MEDS ORDERED: FLUTICASONE 50MCG/SPRAY NASAL 16GM EA NOSTRIL PRN (09:00)
[2023-12-06] MEDS ORDERED: OXYBUTYNIN 10 MG TAB.ER.24 PO SCH (09:00)
--- NOTE | 2023-12-06 09:36 | P.CNPUL ---
History of Present Illness Consult date: 12/06/23 Reason for consult: dyspnea History of present illness: 78-year-old male patient was being seen in the emergency department for worsening shortness of breath. The patient is known to have an extensive cardiac history. He is known to have coronary artery disease and he has undergone also previous bypass surgery. He also has history of aortic stenosis and he has undergone a percutaneous transcatheter aortic valve replacement and this was done without any complications. The procedure was done in November 2023. Follow-up echocardiogram that was done following the procedure showed moderate LV systolic dysfunction with an ejection fraction of 45-50%. Moderate concentric left ventricular hypertrophy. Mild pulmonary hypertension. The B iPAP or static aortic valve showed some mild regurgitation. Otherwise, he had a normal function. He also had mild aortic dilatation measuring up to 39 mm in size. The patient presented with worsening shortness of breath and lower extremity edema and his chest x-ray showed pulmonary vessel congestion and cardiomegaly and small left-sided pleural effusion. CAT scan of the chest was also done that showed no evidence of any pulmonary embolism. It showed cardiomegaly and pulmonary vascular congestion. He also had mild enlarged lymph nodes. Overnight, the patient was started on diuretics. His renal function is being monitored. Clinically is feeling better. ProBNP was 4330. There was als o a troponin leak with a troponin maximum 0.07. The viral panel was negative. Other pertinent medical history includes coronary artery disease with previous CABG, diabetes mellitus, hyperlipidemia, hypertension, peripheral vascular disease, BPH, among other things. Denies any history of COPD or asthma. Denies ever being a tobacco smoker. Patient himself is technically a poor historian. He may have history of dementia, takes Aricept at home. He states he came to the hospital because his daughter brought him in. Apparently, the patient has been experiencing several days of ongoing shortness of breath, weakness, and lower extremity swelling. Admits orthopnea and sleeps with 3 pillows at night. Denies any chest pain, heart palpitations, syncopal events. Denies any infectious symptoms such as fever, cough, chest pain, hemoptysis. Chest CTA on arrival did not show any evidence of large central pulmonary embolism. There was cardiomegaly with pulmonary vascular congestion and bilateral pleural effusions left greater than right. There was also some mildly enlarged lymph nodes in the upper abdomen and mediastinum which were stable from previous exam and likely reactive. NT proBNP also elevated at 4330, supporting evidence of CHF. Patient is currently sitting up in the bedside recliner, on 2 L/m nasal cannula, not in any distress at rest. ECG on arrival showed a sinus rhythm with bigeminal unifocal PVCs. CBC on arrival unremarkable. No evidence of leukocytosis. BMP on arrival: Sodium 137, potassium 4.6, chloride 109, serum 6 bicarb 18, BUN 31, creatinine 1.1, glucose 135. Lactic acid level I.6. Troponins mildly elevated at 0.072 and 0.065. Negative for influenza, RSV, COVID-19. Afebrile. Vital signs are stable. Review of Systems Constitutional: Reports weakness, Reports weight gain Eyes: denies as per HPI, denies blurred vision, denies bulging eye, denies decreased vision, denies diplopia, denies discharge, denies dry eye, denies irritation, denies itching, denies pain, denies photophobia, denies loss of peripheral vision, denies loss of vision, denies tunnel vision/blind spots Ears: deny: decreased hearing, ear discharge, earache, tinnitus Ears, nose, mouth and throat: Reports as per HPI Breasts: absent: as per HPI, gynecomastia Cardiovascular: Reports decreased exercise tolerance, Reports dyspnea on exertion, Reports leg edema, Reports shortness of breath Respiratory: Reports dyspnea Gastrointestinal: Reports as per HPI Genitourinary: Reports as per HPI Musculoskeletal: Reports as per HPI Musculoskeletal: bilateral: ankle swelling, absent: ankle pain, ankle stiffness, as per HPI, elbow pain, elbow stiffness, elbow swelling, foot pain, foot stiffness, foot swelling, hand pain, hand stiffness, hand swelling, hip pain, hip stiffness, hip swelling, knee pain, knee stiffness, knee swelling, shoulder pain, shoulder stiffness, shoulder swelling, wrist pain, wrist stiffness, wrist swelling Integumentary: Reports as per HPI Neurological: Reports as per HPI Psychiatric: Reports as per HPI Endocrine: Reports as per HPI Hematologic/Lymphatic: Reports as per HPI Allergic/Immunologic: Reports as per HPI Past Medical History Past Medical History: Coronary Artery Disease (CAD), Heart Failure, COPD, Dementia, Diabetes Mellitus, GERD/Reflux, Hyperlipidemia, Hypertension, Memory Impairment, Myocardial Infarction ([place]), Neurologic Disorder, Osteoarthritis (OA), Pneumonia, Prostate Disorder, Vascular Disorder Additional Past Medical History / Comment(s): Hx falls and diarrhea/incontinence since diagnosed with Covid Oct 2022, daughter thinks he may have had a minor heart attack when he had Covid as well. 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 PAD. Enlarged prostate. Chronic back pain. Hx bronchitis. Sinus issues. Last Myocardial Infarction Date:: 2014 History of Any Multi-Drug Resistant Organisms: None Reported Past Surgical History: Coronary Bypass/CABG, Orthopedic Surgery Additional Past Surgical History / Comment(s): 2014 CABG 4 vessel/bioprosthetic aortic valve, angiograms, aortagram with bilateral run-offs, PTBA/atherectomy le ft leg, left foot surgery for crush injury, colonoscopy, bilateral cataract removals. Past Anesthesia/Blood Transfusion Reactions: No Reported Reaction Past Psychological History: Anxiety, Depression Smoking Status: Never smoker Past Alcohol Use History: Heavy Past Drug Use History: None Reported - Past Family History Father History Unknown: Yes Family Medical History: Congestive Heart Failure (CHF) Mother History Unknown: Yes Family Medical History: Congestive Heart Failure (CHF) Medications and Allergies Home Medications Medication Instructions Recorded Confirmed Type Omeprazole [PriLOSEC] 20 mg PO DAILY 02/23/15 12/05/23 History Donepezil [Aricept] 10 mg PO HS #30 03/13/15 12/05/23 Rx Tamsulosin HCl [Flomax] 0.4 mg PO DAILY 03/07/17 12/05/23 History Insulin Aspart [NovoLOG Flexpen] See Protocol SQ BID-W/MEALS 11/08/19 12/05/23 History Amitriptyline HCl [Elavil] 25 mg PO HS 03/16/22 12/05/23 History Oxybutynin Chloride [oxyBUTYnin 10 mg PO DAILY 03/16/22 12/05/23 History chloride ER] Potassium Chloride ER [K-Dur 10] 10 meq PO HS 03/16/22 12/05/23 History Insulin Glargine,Hum.rec.anlog 56 unit SQ W/LUNCH 04/05/22 12/05/23 History [Lantus Solostar Pen] amLODIPine [Norvasc] 5 mg PO DAILY 02/21/23 12/05/23 History Albuterol Nebulized [Ventolin 2.5 mg INHALATION RT-QID PRN 04/16/23 12/05/23 History Nebulized] Fluticasone Nasal [place] [Flonase 2 spr EA NOSTRIL DAILY PRN 04/16/23 12/05/23 History Nasal [place]] Atorvastatin [Lipitor] 80 mg PO HS 05/11/23 12/05/23 History Cholecalciferol [Vitamin D3 (125 125 mcg PO HS 05/11/23 12/05/23 History Mcg = 5000 Iu)] Furosemide [Lasix] 40 mg PO DAILY 05/11/23 12/05/23 History lisinopriL [Zestril] 2.5 mg PO DAILY 05/11/23 12/05/23 History Empagliflozin [Jardiance] 10 mg PO DAILY 11/23/23 12/05/23 History Semaglutide [Rybelsus] 3 mg PO DAILY 11/23/23 12/05/23 History Acetaminophen Tab [Tylenol] 650 mg PO Q4HR PRN tab 12/01/23 12/05/23 Rx Apixaban [Eliquis] 5 mg PO DIRECTED 12/05/23 12/05/23 History Allergies Allergy/AdvReac Type Severity Reaction Status Date / Time No Known Allergies Allergy Verified 12/05/23 19:33 Physical Exam Vitals: Vital Signs Temp Pulse Resp BP Pulse Ox 12/06/23 09:27 45 L 18 142/54 95 12/06/23 09:00 52 L 18 97 12/06/23 07:40 82 18 143/66 95 12/06/23 03:00 48 L 15 119/51 94 L 12/05/23 22:57 50 L 18 116/75 98 12/05/23 21:30 49 L 18 105/93 97 12/05/23 20:34 68 12/05/23 20:24 64 12/05/23 19:28 55 L 20 98/49 91 L 12/05/23 15:47 98.6 F 61 22 129/45 96 Intake and Output 12/05/23 12/06/23 12/06/23 22:59 06:59 14:59 Output Total 710 Balance -710 Output: Urine 710 Other: Weight 108.862 kg GENERAL EXAM: Alert, 78-year-old obese white male, sitting up in the bedside recliner, comfortable in no apparent distress at rest. HEAD: Normocephalic and atraumatic EYES: Normal reaction of pupils, equal size. NOSE: Clear with pink turbinates. THROAT: No erythema or exudates. NECK: No masses, no JVD. CHEST: No chest wall deformity. remote appearing sternotomy incsion. LUNGS: Equal air entry with no crackles, wheeze, rhonchi or dullness. On 2 L/m nasal cannula. No conversational dyspnea or accessory muscle use.. CVS: S1 and S2 normal with no audible murmur, regularly irregular rhythm. No extra heart sounds ABDOMEN: Obese abdomen, bowel hepatosplenomegaly, active bowel sounds, no guarding or rigidity. SPINE: No scoliosis or deformity SKIN: Chronic venous stasis changes to the bilateral lower extremities CENTRAL NERVOUS SYSTEM: No focal deficits, tone is normal in all 4 extremities. EXTREMITIES: There is 3+ bilateral lower extremity edema. No clubbing, or cyanosis. Peripheral pulses are weak throughout. Extremities are warm. Results - Laboratory Findings CBC and BMP: 12/06/23 07:44 12/06/23 07:44 PT/INR, D-dimer PT 11.1 sec (10.0-12.5) 12/05/23 17:49 INR 1.0 (<1.2) 12/05/23 17:49 D-Dimer 1.55 mg/L FEU (<0.60) H 12/05/23 17:49 Abnormal lab findings: Abnormal Labs 12/05/23 12/05/23 12/05/23 17:49 17:49 17:49 Hct RDW 16.0 H D-Dimer 1.55 H Chloride 109 H Carbon Dioxide 18 L BUN 31 H Creatinine Glucose 135 H POC Glucose (mg/dL) Calcium 8.1 L Total Bilirubin 2.0 H Alkaline Phosphatase Troponin I Albumin 3.2 L 12/05/23 12/05/23 12/05/23 17:49 20:28 23:54 Hct RDW D-Dimer Chloride Carbon Dioxide BUN Creatinine Glucose POC Glucose (mg/dL) Calcium Total Bilirubin Alkaline Phosphatase Troponin I 0.072 H* 0.065 H* 0.057 H* Albumin 12/06/23 12/06/23 12/06/23 03:45 06:19 07:44 Hct 38.9 L RDW 15.9 H D-Dimer Chloride Carbon Dioxide BUN Creatinine Glucose POC Glucose (mg/dL) 226 H Calcium Total Bilirubin Alkaline Phosphatase Troponin I 0.058 H* Albumin 12/06/23 07:44 Hct RDW D-Dimer Chloride Carbon Dioxide BUN 35 H Creatinine 1.41 H Glucose 196 H POC Glucose (mg/dL) Calcium 8.3 L Total Bilirubin 1.8 H Alkaline Phosphatase 128 H Troponin I Albumin Assessment and Plan Plan: Acute hypoxemic respiratory failure, likely secondary to an exacerbation of systolic congestive heart failure, chest CTA demonstrates cardiomegaly, pulmonary vascular congestion, and small bilateral pleural effusions, left greater than right. No focal consolidations or evidence of pneumonia. NT proBNP also elevated at 4330. The presentation is typical of CHF. Echocardiogram is to be repeated. They EKG showing first-degree AV block with premature ventricular beats that are quite frequent. No issues with atrial fibrillation at this point in time. The patient is currently on 2 L of oxygen by nasal cannula. Responding to diuresis Acute CHF and the patient has mild impairment of LV function with ejection fraction of 40-45% based on an echocardiogram that was done following his pe rcutaneous transcatheter aortic valve replacement. No significant paravalvular leaks at that time. Shortness of breath, secondary to above History of severe aortic valve stenosis, status post transcatheter aortic valve replacement on November 30 Mildly elevated troponins, possibly related to recent cardiac procedure. Bigeminal PVCs, with a first-degree AV block Coronary artery disease, with history of CABG Diabetes mellitus type 2, insulin-dependent History of hyperlipidemia History of hypertension History of peripheral vascular disease History of atrial fibrillation History of benign prostatic hyperplasia Lifelong non-smoker Plan: continue Lasix 40 mg IV every 12 hours monitor renal function Repeat echocardiogram Wean down FiO2 as tolerated to maintain a saturation above 90% Continue anticoagulation with Eliquis Continue Zestril 2.5 mg by mouth daily Continue Norvasc 5 mg by mouth daily We'll continue to follow make further recommendations based on his progress. Awaiting follow-up echocardiogram. Is going to get minutes and a hospital.
--- NOTE | 2023-12-06 10:18 | P.CONS ---
History of Present Illness - Reason for Consult Consult date: 12/06/23 wound care - History of Present Illness This is a 78-year-old patient being seen in the emergency room for nonhealing ulceration to the left plantar foot. Patient is unsure of how long the ulceration has been there he states that his daughter takes care of that for him. Patient is being seen in the emergency room for a another complaints. Patient does not have any drainage from the site. The ulceration is proximal to the fifth metatarsal with dry eschar no drainage or granulation noted within the wound bed. Significant amount of callus is noted. Ulceration measures approximately 1 x 1 x 0.1 cm. Ulceration is dry with no drainage. The callus and eschar area are firm to touch. Medical history is significant for coronary artery disease, heart failure, COPD, dementia, diabetes, hypertension, hyperlipidemia, [place], BPH, neuropathy to bilateral feet. Review Of Systems: Constitutional: No fever, no chills, no night sweats. No weight change. No weakness, fatigue or lethargy. No daytime sleepiness. Integumentary:reports wounds, no lesions. No rash or pruritus. No unusual bruising. No change in hair or nails. Physical exam: General Appearance: Alert, cooperative, no distress, appears stated age. Skin: See HPI all other Skin color, texture, tugor normal, no rashes or lesions. Neurologic: Alert oriented x3 Assessment: 1. Non-pressure ulceration Limited to skin breakdown left plantar foot 2. Diabetic foot ulcer Plan: 1. We will utilize no dressings at this time. If the ulceration does open and have drainage utilize honey gel to the site. Thank you for the consultation any questions please contact the wound care center DNP note has been reviewed and discussed with Dr. Aguirre and the impression and plan of care has been directed as dictated. Past Medical History Past Medical History: Coronary Artery Disease (CAD), Heart Failure, COPD, [place]en tia, Diabetes Mellitus, GERD/Reflux, Hyperlipidemia, Hypertension, Memory Impairment, Myocardial Infarction ([place]), Neurologic Disorder, Osteoarthritis (OA), Pneumonia, Prostate Disorder, Vascular Disorder Additional Past Medical History / Comment(s): Hx falls and diarrhea/incontinence since diagnosed with Covid Oct 2022, daughter thinks he may have had a minor heart attack when he had Covid as well. 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 PAD. Enlarged prostate. Chronic back pain. Hx bronchitis. Sinus issues. Last Myocardial Infarction Date:: 2014 History of Any Multi-Drug Resistant Organisms: None Reported Past Surgical History: Coronary Bypass/CABG, Orthopedic Surgery Additional Past Surgical History / Comment(s): 2014 CABG 4 vessel/bioprosthetic aortic valve, angiograms, aortagram with bilateral run-offs, PTBA/atherectomy left leg, left foot surgery for crush injury, colonoscopy, bilateral cataract removals. Past Anesthesia/Blood Transfusion Reactions: No Reported Reaction Past Psychological History: Anxiety, Depression Smoking Status: Never smoker Past Alcohol Use History: Heavy Past Drug Use History: None Reported - Past Family History Father History Unknown: Yes Family Medical History: Congestive Heart Failure (CHF) Mother History Unknown: Yes Family Medical History: Congestive Heart Failure (CHF) Medications and Allergies Home Medications Medication Instructions Recorded Confirmed Type Omeprazole [PriLOSEC] 20 mg PO DAILY 02/23/15 12/05/23 History Donepezil [Aricept] 10 mg PO HS #30 03/13/15 12/05/23 Rx Tamsulosin HCl [Flomax] 0.4 mg PO DAILY 03/07/17 12/05/23 History Insulin Aspart [NovoLOG Flexpen] See Protocol SQ BID-W/MEALS 11/08/19 12/05/23 History Amitriptyline HCl [Elavil] 25 mg PO HS 03/16/22 12/05/23 History Oxybutynin Chloride [oxyBUTYnin 10 mg PO DAILY 03/16/22 12/05/23 History chloride ER] Potassium Chloride ER [K-Dur 10] 10 meq PO HS 03/16/22 12/05/23 History Insulin Glargine,Hum.rec.anlog 56 unit SQ W/LUNCH 04/05/22 12/05/23 History [Lantus Solostar Pen] amLODIPine [Norvasc] 5 mg PO DAILY 02/21/23 12/05/23 History Albuterol Nebulized [Ventolin 2.5 mg INHALATION RT-QID PRN 04/16/23 12/05/23 History Nebulized] Fluticasone Nasal [place] [Flonase 2 spr EA NOSTRIL DAILY PRN 04/16/23 12/05/23 History Nasal [place]] Atorvastatin [Lipitor] 80 mg PO HS 05/11/23 12/05/23 History Cholecalciferol [Vitamin D3 (125 125 mcg PO HS 05/11/23 12/05/23 History Mcg = 5000 Iu)] Furosemide [Lasix] 40 mg PO DAILY 05/11/23 12/05/23 History lisinopriL [Zestril] 2.5 mg PO DAILY 05/11/23 12/05/23 History Empagliflozin [Jardiance] 10 mg PO DAILY 11/23/23 12/05/23 History Semaglutide [Rybelsus] 3 mg PO DAILY 11/23/23 12/05/23 History Acetaminophen Tab [Tylenol] 650 mg PO Q4HR PRN tab 12/01/23 12/05/23 Rx Apixaban [Eliquis] 5 mg PO DIRECTED 12/05/23 12/05/23 History Allergies Allergy/AdvReac Type Severity Reaction Status Date / Time No Known Allergies Allergy Verified 12/05/23 19:33 Physical Exam Vitals: Vital Signs Temp Pulse Resp BP Pulse Ox 12/06/23 09:27 45 L 18 142/54 95 12/06/23 09:00 52 L 18 97 12/06/23 07:40 82 18 143/66 95 12/06/23 03:00 48 L 15 119/51 94 L 12/05/23 22:57 50 L 18 116/75 98 12/05/23 21:30 49 L 18 105/93 97 12/05/23 20:34 68 12/05/23 20:24 64 12/05/23 19:28 55 L 20 98/49 91 L 12/05/23 15:47 98.6 F 61 22 129/45 96 Intake and Output 12/05/23 12/06/23 12/06/23 22:59 06:59 14:59 Output Total 710 Balance -710 Output: Urine 710 Other: Weight 108.862 kg Results CBC & Chem 7: 12/06/23 07:44 12/06/23 07:44 Labs: Abnormal Lab Results - Last 24 Hours (Table) 12/05/23 12/05/23 12/05/23 Range/Units 17:49 17:49 17:49 Hct (39.0-53.0) % RDW 16.0 H (11.5-15.5) % D-Dimer 1.55 H (<0.60) mg/L FEU Chloride 109 H (98-107) mmol/L Carbon Dioxide 18 L (22-30) mmol/L BUN 31 H (9-20) mg/dL Creatinine (0.66-1.25) mg/dL Glucose 135 H (74-99) mg/dL POC Glucose (mg/dL) (70-110) mg/dL Calcium 8.1 L (8.4-10.2) mg/dL Total Bilirubin 2.0 H (0.2-1.3) mg/dL Alkaline Phosphatase (38-126) U/L Troponin I (0.000-0.034) ng/mL Albumin 3.2 L (3.5-5.0) g/dL 12/05/23 12/05/23 12/05/23 Range/Units 17:49 20:28 23:54 Hct (39.0-53.0) % RDW (11.5-15.5) % D-Dimer (<0.60) mg/L FEU Chloride (98-107) mmol/L Carbon Dioxide (22-30) mmol/L BUN (9-20) mg/dL Creatinine (0.66-1.25) mg/dL Glucose (74-99) mg/dL POC Glucose (mg/dL) (70-110) mg/dL Calcium (8.4-10.2) mg/dL Total Bilirubin (0.2-1.3) mg/dL Alkaline Phosphatase (38-126) U/L Troponin I 0.072 H* 0.065 H* 0.057 H* (0.000-0.034) ng/mL Albumin (3.5-5.0) g/dL 12/06/23 12/06/23 12/06/23 Range/Units 03:45 06:19 07:44 Hct 38.9 L (39.0-53.0) % RDW 15.9 H (11.5-15.5) % D-Dimer (<0.60) mg/L FEU Chloride (98-107) mmol/L Carbon Dioxide (22-30) mmol/L BUN (9-20) mg/dL Creatinine (0.66-1.25) mg/dL Glucose (74-99) mg/dL POC Glucose (mg/dL) 226 H (70-110) mg/dL Calcium (8.4-10.2) mg/dL Total Bilirubin (0.2-1.3) mg/dL Alkaline Phosphatase (38-126) U/L Troponin I 0.058 H* (0.000-0.034) ng/mL Albumin (3.5-5.0) g/dL 12/06/23 Range/Units 07:44 Hct (39.0-53.0) % RDW (11.5-15.5) % D-Dimer (<0.60) mg/L FEU Chloride (98-107) mmol/L Carbon Dioxide (22-30) mmol/L BUN 35 H (9-20) mg/dL Creatinine 1.41 H (0.66-1.25) mg/dL Glucose 196 H (74-99) mg/dL POC Glucose (mg/dL) (70-110) mg/dL Calcium 8.3 L (8.4-10.2) mg/dL Total Bilirubin 1.8 H (0.2-1.3) mg/dL Alkaline Phosphatase 128 H (38-126) U/L Troponin I (0.000-0.034) ng/mL Albumin (3.5-5.0) g/dL Assessment and Plan (1) Non-pressure chronic ulcer of other part of left foot limited to breakdown of skin Current Visit: Yes Status: Acute Code(s): L97.521 - NON-PRS CHRONIC ULCER OTH PRT L FOOT LIMITED TO BRKDWN SKIN SNOMED Code(s): 86954248648749929 (2) Type 2 diabetes mellitus with foot ulcer Current Visit: Yes Status: Acute Code(s): E11.621 - TYPE 2 DIABETES MELLITUS WITH FOOT ULCER; L97.509 - NON-PRESSURE CHRONIC ULCER OTH PRT UNSP FOOT W UNSP SEVERITY SNOMED Code(s): 051761186
[2023-12-06] MEDS: amLODIPine 5 MG TAB PO SCH (10:45)
[2023-12-06] MEDS: TAMSULOSIN 0.4 MG CAP.ER.24H PO SCH (10:45)
[2023-12-06] MEDS: APIXABAN 5 MG TAB PO SCH ×2 (10:46→21:11)
--- NOTE | 2023-12-06 11:19 | US ---
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 There is normal flow, compressibility and vascular waveforms.
[2023-12-06 12:00] LABS: Glucose,Whole Blood 226 mg/dL (70-110)
--- NOTE | 2023-12-06 13:01 | CA ---
Transthoracic Echo Report Name: Tim Coleman Age: 78 Gender: M : 1945 Exam Date: 12/06/2023 10:40 Exam Location: [facility] Ht (in): 69 Wt (lb): 240 Ordering Physician: Rosy Resendez Attending/Referring Phys: User Support Analyst Jatin Stock RD Procedure CPT: Indications: lvot gradient Cardiac Hx: Technical Quality: Technically difficult study Contrast 1: Definity Total Dose (mL): 2 Contrast 2: Total Dose (mL): MEASUREMENTS (Male / Female) Normal Values 2D ECHO LV Diastolic Diameter PLAX 4.1 cm 4.2 - 5.9 / 3.9 - 5.3 cm LV Systolic Diameter PLAX 3.9 cm IVS Diastolic Thickness 1.3 cm 0.6 - 1.0 / 0.6 - 0.9 cm LVPW Diastolic Thickness 2.8 cm 0.6 - 1.0 / 0.6 - 0.9 cm LV Relative Wall Thickness 1.0 RV Internal Dim ED PLAX 2.3 cm LVOT Diameter 2.0 cm DOPPLER AV Peak Velocity 222.1 cm/s AV Peak Gradient 19.7 mmHg AV Mean Velocity 155.7 cm/s AV Mean Gradient 11.4 mmHg AV Velocity Time Integral 51.2 cm LVOT Peak Velocity 81.0 cm/s LVOT Peak Gradient 2.6 mmHg LVOT Velocity Time Integral 17.4 cm LVOT Stroke Volume 56.8 cm??? LVOT Stroke Volume Index 25.5 ml/m??? LVOT Cardiac Index 1261.5 cm???/min???m??? AV Area Cont Eq vti 1.1 cm??? AV Area Cont Eq pk 1.2 cm??? FINDINGS Left Ventricle Normal LV size. Mild concentric LVH. Apical akinesis. Left ventricular ejection fraction is estimated at 45-50 %. Right Ventricle Right Atrium Left Atrium Mitral Valve Aortic Valve Recent TAVR 11/30/23. Peak gradient= 19.7mmHg Mean gradient= 11.4mmHg. Tricuspid Valve Pulmonic Valve Pericardium Aorta CONCLUSIONS Technically difficult study with suboptimal acoustic windows Apical akinesis with mildly reduced LV systolic function Bioprosthetic valve that looks stable without any obvious paravalvular leak and acceptable gradients Previewed by: Dr. Jovanny Garrido MD (Electronically Signed) Final Date: 06 December 2023 13:01
--- NOTE | 2023-12-06 14:04 | P.PN ---
Subjective Progress Note Date: 12/06/23 Hospital Course: 78-year-old male with an extensive PMH including systolic CHF, CAD status post CABG, status post TAVR, type II DM, dementia, hypertension, hyperlipidemia, BPH, and A. fib who presents to the emergency room with complaints of shortness of breath. Patient had TAVR on 11/30/23 and was discharged home on 12/01. Chest CTA revealed cardiomegaly with vascular congestion with enlarged mediastinal and upper abdomen lymph nodes suspected reactive. EKG reveals sinus rhythm with first-degree AV block with PVCs at 61 bpm with a left bundle branch block (not present on prior EKGs). Laboratory evaluation was remarkable for troponin 0.072, proBNP 4330, lactic acid 1.6, with respiratory viral panel negative. Vital signs within normal limits. Requiring 2 L oxygen via nasal cannula. CHF exacerbation. Both pulmonology and cardiology consulted. Subjective: Seen and examined at bedside. No acute events overnight. He claims that his respiratory function is slightly better. Pertinent positives and negatives as discussed above, a complete review of systems was performed and all other systems are negative. Vitals Signs Reviewed. General: non toxic, no distress, appears at stated age, morbidly obese Derm: Left foot plantar surface unstageable ulcer noted without surrounding erythema, tenderness, or induration Head: atraumatic, normocephalic, symmetric Eyes: EOMI, no lid lag, anicteric sclera, pupils equal round reactive to light ENT: Nose and ears atraumatic Neck: No cervical lymphadenopathy, trachea midline, supple Mouth: no lip lesion, mucus membranes moist Cardiovascular: S1S2 reg, no murmur, positive dorsalis pedis pulse bilateral, bilateral lower extremity chronic venous stasis changes noted with 1+ pitting edema Lungs: CTA bilateral, no rhonchi, no rales, no accessory muscle use Abdominal: soft, nontender to palpation, no guarding Ext: muscle strength 4 out of 5 in all 4 extremities grossly, no gross muscle atrophy, no contractures, Neuro: CN II-XI grossly intact, no gross focal neuro deficits Psych: Alert, oriented, cooperative Data Reviewed Today: Pertinent Labs: WBC 9.0, hemoglobin 13, creatinine 1.41, blood sugars range between 135-226 Imaging: Lower extremity Dopplers did not show any DVTs. Echocardiogram shows LVEF 45-50%, apical akinesis, bioprosthetic valva stable Assessment and Plan: Active: Acute systolic CHF exacerbation Acute hypoxic respiratory failure NSTEMI, non-ischemic Aortic valve stenosis Status post recent TAVR -Continue IV Lasix 40 twice a day, monitor urine output and electrolytes -Cardiology consulted -Continue Eliquis 5 twice a day Nonoliguric acute kidney injury BPH -Continue Flomax 0.4 -Hold oxybutynin -Continue lisinopril for now, as it is very small dose -Renal ultrasound Hypertension -Continue amlodipine 5 -Continue lisinopril 2.5 daily -Also nitroglycerin drip topical Type 2 diabetes -Sliding scale insulin, monitor for hypoglycemia Left foot ulcer, present on admission -Wound care consult Chronic: History of dementia DVT ppx: Eliquis Code status: Full code Anticipated discharge place: Pending clinical course Anticipated discharge time: pending clinical course Objective - Vital Signs Vital signs: Vital Signs Temp 98.6 F 12/05/23 15:47 Pulse 70 12/06/23 12:45 Resp 20 12/06/23 12:45 BP 163/63 12/06/23 12:45 Pulse Ox 97 12/06/23 13:30 FiO2 Intake & Output 12/05/23 12/06/23 12/06/23 18:59 06:59 18:59 Output Total 1410 Balance -1410 Weight 108.862 kg Output: Urine 1410 Other: # Voids 2 - Labs CBC & Chem 7: 12/06/23 07:44 12/06/23 07:44 Labs: Abnormal Lab Results - Last 24 Hours (Table) 12/05/23 12/05/23 12/05/23 Range/Units 17:49 17:49 17:49 Hct (39.0-53.0) % RDW 16.0 H (11.5-15.5) % D-Dimer 1.55 H (<0.60) mg/L FEU Chloride 109 H (98-107) mmol/L Carbon Dioxide 18 L (22-30) mmol/L BUN 31 H (9-20) mg/dL Creatinine (0.66-1.25) mg/dL Glucose 135 H (74-99) mg/dL POC Glucose (mg/dL) (70-110) mg/dL Calcium 8.1 L (8.4-10.2) mg/dL Total Bilirubin 2.0 H (0.2-1.3) mg/dL Alkaline Phosphatase (38-126) U/L Troponin I (0.000-0.034) ng/mL Albumin 3.2 L (3.5-5.0) g/dL 12/05/23 12/05/23 12/05/23 Range/Units 17:49 20:28 23:54 Hct (39.0-53.0) % RDW (11.5-15.5) % D-Dimer (<0.60) mg/L FEU Chloride (98-107) mmol/L Carbon Dioxide (22-30) mmol/L BUN (9-20) mg/dL Creatinine (0.66-1.25) mg/dL Glucose (74-99) mg/dL POC Glucose (mg/dL) (70-110) mg/dL Calcium (8.4-10.2) mg/dL Total Bilirubin (0.2-1.3) mg/dL Alkaline Phosphatase (38-126) U/L Troponin I 0.072 H* 0.065 H* 0.057 H* (0.000-0.034) ng/mL Albumin (3.5-5.0) g/dL 12/06/23 12/06/23 12/06/23 Range/Units 03:45 06:19 07:44 Hct 38.9 L (39.0-53.0) % RDW 15.9 H (11.5-15.5) % D-Dimer (<0.60) mg/L FEU Chloride (98-107) mmol/L Carbon Dioxide (22-30) mmol/L BUN (9-20) mg/dL Creatinine (0.66-1.25) mg/dL Glucose (74-99) mg/dL POC Glucose (mg/dL) 226 H (70-110) mg/dL Calcium (8.4-10.2) mg/dL Total Bilirubin (0.2-1.3) mg/dL Alkaline Phosphatase (38-126) U/L Troponin I 0.058 H* (0.000-0.034) ng/mL Albumin (3.5-5.0) g/dL 12/06/23 12/06/23 Range/Units 07:44 11:58 Hct (39.0-53.0) % RDW (11.5-15.5) % D-Dimer (<0.60) mg/L FEU Chloride (98-107) mmol/L Carbon Dioxide (22-30) mmol/L BUN 35 H (9-20) mg/dL Creatinine 1.41 H (0.66-1.25) mg/dL Glucose 196 H (74-99) mg/dL POC Glucose (mg/dL) 226 H (70-110) mg/dL Calcium 8.3 L (8.4-10.2) mg/dL Total Bilirubin 1.8 H (0.2-1.3) mg/dL Alkaline Phosphatase 128 H (38-126) U/L Troponin I (0.000-0.034) ng/mL Albumin (3.5-5.0) g/dL
--- NOTE | 2023-12-06 14:24 | P.CRDCN ---
History of Present Illness Consult date: 12/06/23 Consult reason: congestive heart failure History of present illness: History of present illness: This is a 78 year old male with past medical history of hypertension, hyperlipidemia, diabetes mellitus type 2, coronary artery disease status post CABG 5 vessel in 2015, atherectomy left lower leg, severe aortic stenosis, PAD, benign prostatic hypertrophy, multiple falls, history of subdural hematoma, dementia, atrial fibrillation, history of non-ST elevated OR, congestive heart failure and ischemic cardiomyopathy with recent drop in EF down to 3540 percent. Patient was recently hospitalized on November 30 discharged on December 01 status post TAVR. We have been asked to evaluate the patient for heart failure. Patient has underlying dementia but states his daughter brought him into the hospital because he was short of breath. EKG sinus rhythm with first-degree A-V block, left bundle branch block which appears to be more prolonged since last EKG, PVCs Chest x-ray: Low lung volumes with generalized hazy appearance which could represent atelectasis versus pulmonary edema. CTA of the chest reveals no pulmonary embolism. Limited evaluation of segmental and subsegmental branches. Cardiac megaly with pulmonary vascular congestion. Mildly enlarged lymph nodes in the upper abdomen and mediastinum stable. 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 Limited echocardiogram reveals technically difficult study with suboptimal acoustic windows. Apical akinesis with mildly reduced LV systolic function. A bioprosthetic valve stable without any obvious paravalvular leak and acceptable gradients. EF 45-50%. WBC 9, hemoglobin 13, platelet count 163. Sodium 138, potassium 4.2, BUN 35 creatinine 1.41. Troponin 0.072, 0.065, 0.057. ProBNP 4330. Influenza A, influenza B, RSV, Covid 19 no detected. Home cardiac medications: Amlodipine 5 mg daily, eliquis 5 mg twice daily, Li pitor 80 mg at bedtime, Lasix 40 mg daily, lisinopril 2.5 mg daily,Jardiance 10 milligrams daily. Review Of Systems: At the time of my exam: CONSTITUTIONAL: Denies fever or chills. CARDIOVASCULAR: Denies chest pain, Denies shortness of breath, no orthopnea, PND or palpitations. RESPIRATORY: Denies cough. GASTROINTESTINAL: Denies abdominal pain, diarrhea, constipation, nausea or vomiting. MUSCULOSKELETAL: Denies myalgias. NEUROLOGIC: Denies numbness, tingling or weakness. ENDOCRINE: Denies fatigue, weight change, polydipsia or polyurina. GENITOURINARY: Denies burning, hematuria or urgency with micturation. HEMATOLOGIC: Denies history of anemia or bleeding. Physical examination: Gen: This is a 78-year-old male sitting in the chair in no acute distress. VS: reviewed HEENT: Head is atraumatic, normocephalic. Pupils equal, round. Sclerae is anicteric. NECK: Supple. No JVD. LUNGS: Clear to auscultation. No wheezes or rhonchi. No intercostal retractions. HEART: Irregular rate and rhythm. No murmur. ABDOMEN: Soft No tenderness. EXTREMITIES: 3+ pedal edema. No calf tenderness. Significant swelling and bruising to the left upper extremity. NEUROLOGICAL: Patient is awake, alert. Assessment: Acute on chronic systolic heart failure Acute on chronic hypoxic respiratory failure History of severe aortic valve stenosis status post transcatheter aortic valve replacement on 11/30/2023 Flat troponins that are most likely due to CHF/acute kidney injury/recent TAVR Acute kidney injury Hypertension Hyperlipidemia Coronary artery disease that is post 5 vessel CABG PAD Paroxysmal atrial fibrillation Ischemic cardiomyopathy Plan: Resume patient's home cardiac medications including eliquis Continue Lasix 40 mg IV every 12 hours Monitor I&O, daily weights, electrolytes and renal function Avoid all AV nehemiah blocking agents due to history of Wenckebach Continue telemetry monitoring Further recommendations to follow based upon clinical course Thank you kindly for this consultation. Nurse practitioner note has been reviewed, I agree with documented findings and plan of care. Patient was seen and examined. Past Medical History Past Medical History: Coronary Artery Disease (CAD), Heart Failure, COPD, Dementia, Diabetes Mellitus, GERD/Reflux, Hyperlipidemia, Hypertension, Memory Impairment, Myocardial Infarction (OR), Neurologic Disorder, Osteoarthritis (OA), Pneumonia, Prostate Disorder, Vascular Disorder Additional Past Medical History / Comment(s): Hx falls and diarrhea/incontinence since diagnosed with Covid Oct 2022, daughter thinks he may have had a minor heart attack when he had Covid as well. 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 PAD. Enlarged prostate. Chronic back pain. Hx bronchitis. Sinus issues. Last Myocardial Infarction Date:: 2014 History of Any Multi-Drug Resistant Organisms: None Reported Past Surgical History: Coronary Bypass/CABG, Orthopedic Surgery Additional Past Surgical History / Comment(s): 2015 CABG 4 vessel/bioprosthetic aortic valve, angiograms, aortagram with bilateral run-offs, PTBA/atherectomy left leg, left foot surgery for crush injury, colonoscopy, bilateral cataract removals. Past Anesthesia/Blood Transfusion Reactions: No Reported Reaction Past Psychological History: Anxiety, Depression Smoking Status: Never smoker Past Alcohol Use History: Heavy Past Drug Use History: None Reported - Past Family History Father History Unknown: Yes Family Medical History: Congestive Heart Failure (CHF) Mother History Unknown: Yes Family Medical History: Congestive Heart Failure (CHF) Medications and Allergies Home Medications Medication Instructions Recorded Confirmed Type Omeprazole [PriLOSEC] 20 mg PO DAILY 02/23/15 12/05/23 History Donepezil [Aricept] 10 mg PO HS #30 03/13/15 12/05/23 Rx Tamsulosin HCl [Flomax] 0.4 mg PO DAILY 03/07/17 12/05/23 History Insulin Aspart [NovoLOG Flexpen] See Protocol SQ BID-W/MEALS 11/08/19 12/05/23 History Amitriptyline HCl [Elavil] 25 mg PO HS 03/16/22 12/05/23 History Oxybutynin Chloride [oxyBUTYnin 10 mg PO DAILY 03/16/22 12/05/23 History chloride ER] Potassium Chloride ER [K-Dur 10] 10 meq PO HS 03/16/22 12/05/23 History Insulin Glargine,Hum.rec.anlog 56 unit SQ W/LUNCH 04/05/22 12/05/23 History [Lantus Solostar Pen] amLODIPine [Norvasc] 5 mg PO DAILY 02/21/23 12/05/23 History Albuterol Nebulized [Ventolin 2.5 mg INHALATION RT-QID PRN 04/16/23 12/05/23 History Nebulized] Fluticasone Nasal [place] [Flonase 2 spr EA NOSTRIL DAILY PRN 04/16/23 12/05/23 History Nasal [place]] Atorvastatin [Lipitor] 80 mg PO HS 05/11/23 12/05/23 History Cholecalciferol [Vitamin D3 (125 125 mcg PO HS 05/11/23 12/05/23 History Mcg = 5000 Iu)] Furosemide [Lasix] 40 mg PO DAILY 05/11/23 12/05/23 History lisinopriL [Zestril] 2.5 mg PO DAILY 05/11/23 12/05/23 History Empagliflozin [Jardiance] 10 mg PO DAILY 11/23/23 12/05/23 History Semaglutide [Rybelsus] 3 mg PO DAILY 11/23/23 12/05/23 History Acetaminophen Tab [Tylenol] 650 mg PO Q4HR PRN tab 12/01/23 12/05/23 Rx Apixaban [Eliquis] 5 mg PO DIRECTED 12/05/23 12/05/23 History Allergies Allergy/AdvReac Type Severity Reaction Status Date / Time No Known Allergies Allergy Verified 12/05/23 19:33 Physical Exam Vitals: Vital Signs Temp Pulse Resp BP Pulse Ox 12/06/23 07:40 82 18 143/66 95 12/06/23 03:00 48 L 15 119/51 94 L 12/05/23 22:57 50 L 18 116/75 98 12/05/23 21:30 49 L 18 105/93 97 12/05/23 20:34 68 12/05/23 20:24 64 12/05/23 19:28 55 L 20 98/49 91 L 12/05/23 15:47 98.6 F 61 22 129/45 96 Intake and Output 12/05/23 12/06/23 12/06/23 22:59 06:59 14:59 Output Total 500 Balance -500 Output: Urine 500 Other: Weight 108.862 kg Results 12/06/23 07:44 12/06/23 07:44 Cardiac Enzymes 12/05/23 12/05/23 12/05/23 Range/Units 17:49 17:49 20:28 AST 30 (17-59) U/L Troponin I 0.072 H* 0.065 H* (0.000-0.034) ng/mL 12/05/23 12/06/23 Range/Units 23:54 03:45 AST (17-59) U/L Troponin I 0.057 H* 0.058 H* (0.000-0.034) ng/mL Coagulation 12/05/23 Range/Units 17:49 PT 11.1 (10.0-12.5) sec APTT 27.0 (22.0-30.0) sec CBC 12/05/23 Range/Units 17:49 WBC 9.5 (3.8-10.6) k/uL RBC 4.73 (4.30-5.90) m/uL Hgb 13.0 (13.0-17.5) gm/dL Hct 39.1 (39.0-53.0) % Plt Count 152 (150-450) k/uL Comprehensive Metabolic Panel 12/05/23 Range/Units 17:49 Sodium 137 (137-145) mmol/L Potassium 4.6 (3.5-5.1) mmol/L Chloride 109 H (98-107) mmol/L Carbon Dioxide 18 L (22-30) mmol/L BUN 31 H (9-20) mg/dL Creatinine 1.10 (0.66-1.25) mg/dL Glucose 135 H (74-99) mg/dL Calcium 8.1 L (8.4-10.2) mg/dL AST 30 (17-59) U/L ALT 19 (4-49) U/L Alkaline Phosphatase 104 (38-126) U/L Total Protein 6.5 (6.3-8.2) g/dL Albumin 3.2 L (3.5-5.0) g/dL Current Medications Generic Name Dose Route Start Last Admin Trade Name Freq PRN Reason Stop Dose Admin Albuterol/Ipratropium 3 ml 12/05/23 19:36 Ipratropium-Albuterol 3 Ml Neb INHALATION RT-QID PRN Shortness Of Breath Or Wheezing Amitriptyline HCl 25 mg 12/06/23 21:00 Amitriptyline Hcl 25 Mg Tab PO HS [facility] Amlodipine Besylate 5 mg 12/06/23 09:00 Amlodipine 5 Mg Tab PO DAILY [facility] Apixaban 5 mg 12/12/23 09:00 Apixaban 5 Mg Tab PO BID [facility] Protocol Atorvastatin Calcium 80 mg 12/06/23 21:00 Atorvastatin 80 Mg Tab PO HS [facility] Cholecalciferol 125 mcg 12/06/23 21:00 Cholecalciferol 125 Mcg (5000 Iu) Tablet PO HS [facility] Donepezil HCl 10 mg 12/06/23 21:00 Donepezil 10 Mg Tab PO HS [facility] Fluticasone Propionate 2 spray 12/06/23 09:00 Fluticasone 50mcg/[place] Nasal 16gm EA NOSTRIL DAILY PRN Nasal Congestion Furosemide 40 mg 12/05/23 19:45 12/06/23 07:37 Furosemide 10 Mg/Ml 4 Ml Vial IV 40 mg Q8HR [facility]INA Administration Insulin Aspart 0 unit 12/06/23 07:30 12/06/23 07:35 Insulin Aspart (Novolog) 100 Unit/Ml Vial SQ 6 unit ACHS [facility] Administration Protocol Lisinopril 2.5 mg 12/06/23 09:00 Lisinopril 2.5 Mg Tab PO DAILY [facility] Morphine Sulfate 4 mg 12/05/23 19:36 12/05/23 22:16 Morphine Sulfate 4 Mg/Ml Syringe IV 4 mg Q4HR PRN Administration Severe Pain (Scale 7 to 10) Naloxone HCl 0.2 mg 12/05/23 19:36 Naloxone 0.4 Mg/Ml 1 Ml Vial IV Q2M PRN Opioid Reversal Nitroglycerin 0.5 inch 12/06/23 22:00 Nitroglycerin Oint 1 Inch/Gm Packet TOPICAL QID [facility] Ondansetron HCl 4 mg 12/05/23 19:36 Ondansetron 4 Mg/2 Ml Vial IVP Q8HR PRN Nausea And Vomiting Oxybutynin Chloride 10 mg 12/06/23 09:00 Oxybutynin 10 Mg Tab.Er.24 PO DAILY [facility] Tamsulosin HCl 0.4 mg 12/06/23 09:00 Tamsulosin 0.4 Mg Cap.Er.24h PO DAILY [facility] Intake and Output 12/05/23 12/06/23 12/06/23 22:59 06:59 14:59 Output Total 500 Balance -500 Output: Urine 500 Other: Weight 108.862 kg 12/05/23 17:49 12/05/23 17:49
--- NOTE | 2023-12-06 14:39 | US ---
EXAMINATION TYPE: US kidneys/renal and bladder DATE OF EXAM: 12/06/2023 COMPARISON: 10/12/2023 US Gallbladder CLINICAL INDICATION: Male, 78 years old with history of elena; HTN; DM EXAM MEASUREMENTS: Right Kidney: 10.9 x 5.1 x 5.9 cm Left Kidney: 11.0 x 6.0 x 6.3 cm Post Void Residual Volume: NA mL Right Kidney: wnl Left Kidney: wnl Bladder: Not fully distended Bilateral Jets seen: Not able to assess Normal Post Void Residual: NA Bilateral renal cortex measures approximately 1 cm and within normal limits. No hydronephrosis or fin dings cortical medullary junction preserved. IMPRESSION: No hydronephrosis or nephrolithiasis.
[2023-12-06 16:48] LABS: Glucose,Whole Blood 394 mg/dL (70-110)
[2023-12-06] MEDS: ATORVASTATIN 80 MG TAB PO SCH (21:11)
[2023-12-06] MEDS: NITROGLYCERIN OINT 1 INCH/GM PACKET TOPICAL SCH (21:11)
[2023-12-06] MEDS: AMITRIPTYLINE HCL 25 MG TAB PO SCH (21:32)
[2023-12-06] MEDS: CHOLECALCIFEROL 125 MCG (5000 IU) TABLET PO SCH (21:32)
[2023-12-06] MEDS: DONEPEZIL 10 MG TAB PO SCH (21:32)
[2023-12-06 21:36] LABS: Glucose,Whole Blood 247 mg/dL (70-110)
[2023-12-07] MEDS: INSULIN ASPART (NovoLOG) 100 UNIT/ML VIAL SQ SCH ×4 (06:11→21:38)
[2023-12-07 06:14] LABS: Glucose,Whole Blood 250 mg/dL (70-110)
[2023-12-07] MEDS: amLODIPine 5 MG TAB PO SCH (09:31)
[2023-12-07] MEDS: TAMSULOSIN 0.4 MG CAP.ER.24H PO SCH (09:31)
[2023-12-07] MEDS: APIXABAN 5 MG TAB PO SCH (09:31)
[2023-12-07] MEDS: FUROSEMIDE 10 MG/ML 4 ML VIAL IV SCH ×2 (09:31→21:38)
[2023-12-07] MEDS: NITROGLYCERIN OINT 1 INCH/GM PACKET TOPICAL SCH ×4 (09:32→21:38)
[2023-12-07 09:53] LABS: Basophils # (A) 0.1 k/uL (0-0.2); Basophils % (A) 1 %; Eosinophils # (A) 0.7 k/uL (0-0.7); Eosinophils % (A) 7 %; HCT 38.4 % (39.0-53.0); HGB 12.4 gm/dL (13.0-17.5); Hypochromasia Slight; Lymphocytes # (A) 1.2 k/uL (1.0-4.8); Lymphocytes % (A) 12 %; MCH 27.4 pg (25.0-35.0); MCHC 32.2 g/dL (31.0-37.0); Mean Platelet Volume 8.1; Monocytes # (A) 0.6 k/uL (0-1.0); Monocytes % (A) 6 %; Neutrophils # (A) 6.6 k/uL (1.3-7.7); Neutrophils % (A) 71 %; Platelet Count 167 k/uL (150-450); RBC 4.52 m/uL (4.30-5.90); RDW 15.8 % (11.5-15.5); WBC 9.3 k/uL (3.8-10.6)
[2023-12-07 11:23] VITALS: BMI 35.4
[2023-12-07 11:31] LABS: Glucose,Whole Blood 455 mg/dL (70-110)
[2023-12-07 11:52] LABS: African American GFR (CKD) 54 (>60 ml/min/1.73 sqM); Anion Gap 12 mmol/L; Blood Urea Nitrogen 42 mg/dL (9-20); Calcium 8.5 mg/dL (8.4-10.2); Carbon Dioxide 16 mmol/L (22-30); Chloride 109 mmol/L (98-107); Glucose 314 mg/dL (74-99); Magnesium 2.3 mg/dL (1.6-2.3); Non-African American GFR(CKD) 46 (>60 ml/min/1.73 sqM); Potassium 4.2 mmol/L (3.5-5.1); Sodium 137 mmol/L (137-145)
--- NOTE | 2023-12-07 12:20 | P.PN ---
Subjective Progress Note Date: 12/07/23 Hospital Course: 78-year-old male with an extensive PMH including systolic CHF, CAD status post CABG, status post TAVR, type II DM, dementia, hypertension, hyperlipidemia, BPH, and A. fib who presents to the emergency room with complaints of shortness of breath. Patient had TAVR on 11/30/23 and was discharged home on 12/01. Chest CTA revealed cardiomegaly with vascular congestion with enlarged mediastinal and upper abdomen lymph nodes suspected reactive. EKG reveals sinus rhythm with first-degree AV block with PVCs at 61 bpm with a left bundle branch block (not present on prior EKGs). Laboratory evaluation was remarkable for troponin 0.072, proBNP 4330, lactic acid 1.6, with respiratory viral panel negative. Vital signs within normal limits. Requiring 2 L oxygen via nasal cannula. CHF exacerbation. Both pulmonology and cardiology consulted. Lower extremity Dopplers did not show any DVT. Renal ultrasound did not show any evidence of obstructive uropathy. Echocardiogram shows LVEF 45-50%, apical akinesis, bioprosthetic valva stable. Subjective: Seen and examined at bedside. No acute events overnight. He claims that his respiratory function is slightly better. Pertinent positives and negatives as discussed above, a complete review of systems was performed and all other systems are negative. Vitals Signs Reviewed. General: non toxic, no distress, appears at stated age, morbidly obese Derm: Left foot plantar surface unstageable ulcer noted without surrounding erythema, tenderness, or induration Head: atraumatic, normocephalic, symmetric Eyes: EOMI, no lid lag, anicteric sclera, pupils equal round reactive to light ENT: Nose and ears atraumatic Neck: No cervical lymphadenopathy, trachea midline, supple Mouth: no lip lesion, mucus membranes moist Cardiovascular: S1S2 reg, no murmur, positive dorsalis pedis pulse bilateral, bilateral lower extremity chronic venous stasis changes noted with 1+ pitting edema Lungs: CTA bilateral, no rhonchi, no rales, no accessory muscle use Abdominal: soft, nontender to palpation, no guarding Ext: muscle strength 4 out of 5 in all 4 extremities grossly, no gross muscle atrophy, no contractures, Neuro: CN II-XI grossly intact, no gross focal neuro deficits Psych: Alert, oriented, cooperative Data Reviewed Today: Pertinent Labs: WBC 9.3, hemoglobin 12.4, bicarb 16, creatinine 1.45, blood sugars range between 247-455 Imaging: Renal ultrasound did not show any evidence of obstructive uropathy Assessment and Plan: Active: Acute systolic CHF exacerbation Acute hypoxic respiratory failure NSTEMI, non-ischemic Aortic valve stenosis Status post recent TAVR -Continue IV Lasix 40 twice a day, monitor urine output and electrolytes -Cardiology and pulmonology following -Continue Eliquis 5 twice a day Nonoliguric acute kidney injury, stable BPH -Continue Flomax 0.4 -Hold oxybutynin -Continue lisinopril for now, as it is very small dose -Repeat BMP tomorrow Hypertension -Continue amlodipine 5 -Continue lisinopril 2.5 daily -Also nitroglycerin topical Type 2 diabetes -Home Lantus 56 units restarted -Sliding scale insulin, monitor for hypoglycemia Left foot ulcer, present on admission -Wound care consult Chronic: History of dementia DVT ppx: Eliquis Code status: Full code Anticipated discharge place: Pending clinical course Anticipated discharge time: pending clinical course Objective - Vital Signs Vital signs: Vital Signs Temp 97.9 F 12/07/23 09:30 Pulse 76 12/07/23 09:30 Resp 18 12/07/23 09:30 BP 133/67 12/07/23 09:30 Pulse Ox 96 12/07/23 09:30 FiO2 Intake & Output 12/06/23 12/07/23 12/07/23 18:59 06:59 18:59 Intake Total 240 100 Output Total 1610 Balance -1610 240 100 Weight 109 kg 109 kg Intake: Oral 240 100 Output: Urine 1610 Other: # Voids 2 - Labs CBC & Chem 7: 12/07/23 09:03 12/07/23 09:03 Labs: Abnormal Lab Results - Last 24 Hours (Table) 12/06/23 12/06/23 12/07/23 Range/Units 16:47 21:35 06:06 Hgb (13.0-17.5) gm/dL Hct (39.0-53.0) % RDW (11.5-15.5) % Chloride (98-107) mmol/L Carbon Dioxide (22-30) mmol/L BUN (9-20) mg/dL Creatinine (0.66-1.25) mg/dL Glucose (74-99) mg/dL POC Glucose (mg/dL) 394 H 247 H 250 H (70-110) mg/dL 12/07/23 12/07/23 12/07/23 Range/Units 09:03 09:03 11:26 Hgb 12.4 L (13.0-17.5) gm/dL Hct 38.4 L (39.0-53.0) % RDW 15.8 H (11.5-15.5) % Chloride 109 H (98-107) mmol/L Carbon Dioxide 16 L (22-30) mmol/L BUN 42 H (9-20) mg/dL Creatinine 1.45 H (0.66-1.25) mg/dL Glucose 314 H (74-99) mg/dL POC Glucose (mg/dL) 455 H (70-110) mg/dL
--- NOTE | 2023-12-07 12:33 | P.PN ---
Subjective Progress Note Date: 12/07/23 78-year-old male patient was being seen in the emergency department for worsening shortness of breath. The patient is known to have an extensive cardiac history. He is known to have coronary artery disease and he has undergone also previous bypass surgery. He also has history of aortic stenosis and he has undergone a percutaneous transcatheter aortic valve replacement and this was done without any complications. The procedure was done in November 2023. Follow-up echocardiogram that was done following the procedure showed moderate LV systolic dysfunction with an ejection fraction of 45-50%. Moderate concentric left ventricular hypertrophy. Mild pulmonary hypertension. The BiPAP or static aortic valve showed some mild regurgitation. Otherwise, he had a normal function. He also had mild aortic dilatation measuring up to 39 mm in size. The patient presented with worsening shortness of breath and lower extremity edema and his chest x-ray showed pulmonary vessel congestion and cardiomegaly and small left-sided pleural effusion. CAT scan of the chest was also done that showed no evidence of any pulmonary embolism. It showed cardiomegaly and pulmonary vascular congestion. He also had mild enlarged lymph nodes. Overnight, the patient was started on diuretics. His renal function is being monitored. Clinically is feeling better. ProBNP was 4330. There was also a troponin leak with a troponin maximum 0.07. The viral panel was negative. Other pertinent medical history includes coronary artery disease with previous CABG, diabetes mellitus, hyperlipidemia, hypertension, peripheral vascular disease, BPH, among other things. Denies any history of COPD or asthma. Denies ever being a tobacco smoker. Patient himself is technically a poor historian. He may have history of dementia, takes Aricept at home. He states he came to the hospital because his daughter brought him in. Apparently, the patient has been experiencing several days of ongoing shortness of breath, weakness, and lower extremity swelling. Admits orthopnea and sleeps with 3 pillows at night. Denies any chest pain, heart palpitations, syncopal events. Denies any infectious symptoms such as fever, cough, chest pain, hemoptysis. Chest CTA on arrival did not show any evidence of large central pulmonary embolism. There was cardiomegaly with pulmonary vascular congestion and bilateral pleural effusions left greater than right. There was also some mildly enlarged lymph nodes in the upper abdomen and mediastinum which were stable from previous exam and likely reactive. NT proBNP also elevated at 4330, supporting evidence of CHF. Patient is currently sitting up in the bedside recliner, on 2 L/m nasal cannula, not in any distress at rest. ECG on arrival showed a sinus rhythm with bigeminal unifocal PVCs. CBC on arrival unremarkable. No evidence of leukocytosis. BMP on arrival: Sodium 137, potassium 4.6, chloride 109, serum 6 bicarb 18, BUN 31, creatinine 1.1, glucose 135. Lactic acid level I.6. Troponins mildly elevated at 0.072 and 0.065. Negative for influenza, RSV, COVID-19. Afebrile. Vital signs are stable. On 12/07/2023, seeing the patient for a follow-up. Is feeling better blood short of breath compared to yesterday. He was hospitalized for CHF and fluid overload. The patient was subjected IV Lasix 40 mg IV every 12 hours. Is currently on room air oxygen. No reported chest pain. A limited echocardiogram was done and the patient was found to have mildly reduced LV function. The bioprosthetic aortic valve was functional and there was no evidence of any par avalvular leak. Meanwhile, Doppler of the lower extremity was also done and the patient was found to have pseudoaneurysm of 1.3 cm at the neck and he was measuring around 1.8 x 1.3 x 1.2 cm in size and this is in the right radial artery. There was no evidence of any DVT. The patient is obviously cause of 9.3, hemoglobin was 12.4, BUN is at 42 with a creatinine 1.45 and sodium levels of 137. He does have some limited troponin leak. ProBNP level was 4330 the time of admission. Objective - Vital Signs Vital signs: Vital Signs Temp 97.9 F 12/07/23 09:30 Pulse 76 12/07/23 09:30 Resp 18 12/07/23 09:30 BP 133/67 12/07/23 09:30 Pulse Ox 96 12/07/23 09:30 FiO2 Intake & Output 12/06/23 12/07/23 12/07/23 18:59 06:59 18:59 Intake Total 240 100 Output Total 1610 Balance -1610 240 100 Weight 109 kg Intake: Oral 240 100 Output: Urine 1610 Other: # Voids 2 - Exam GENERAL EXAM: Alert, 78-year-old obese white male, sitting up in the bedside recliner, comfortable in no apparent distress at rest. The patient is currently on room air oxygen. HEAD: Normocephalic and atraumatic EYES: Normal reaction of pupils, equal size. NOSE: Clear with pink turbinates. THROAT: No erythema or exudates. NECK: No masses, no JVD. CHEST: No chest wall deformity. remote appearing sternotomy incsion. LUNGS: Equal air entry with no crackles, wheeze, rhonchi or dullness. No conversational dyspnea or accessory muscle use.. CVS: S1 and S2 normal with no audible murmur, regularly irregular rhythm. No extra heart sounds ABDOMEN: Obese abdomen, bowel hepatosplenomegaly, active bowel sounds, no guarding or rigidity. SPINE: No scoliosis or deformity SKIN: Chronic venous stasis changes to the bilateral lower extremities CENTRAL NERVOUS SYSTEM: No focal deficits, tone is normal in all 4 extremities. EXTREMITIES: There is 1+ bilateral lower extremity edema. No clubbing, or cyanosis. Peripheral pulses are weak throughout. Extremities are warm. - Labs CBC & Chem 7: 12/07/23 09:03 12/07/23 09:03 Labs: Abnormal Lab Results - Last 24 Hours (Table) 12/06/23 12/06/23 12/06/23 Range/Units 11:58 16:47 21:35 Hgb (13.0-17.5) gm/dL Hct (39.0-53.0) % RDW (11.5-15.5) % POC Glucose (mg/dL) 226 H 394 H 247 H (70-110) mg/dL 12/07/23 12/07/23 Range/Units 06:06 09:03 Hgb 12.4 L (13.0-17.5) gm/dL Hct 38.4 L (39.0-53.0) % RDW 15.8 H (11.5-15.5) % POC Glucose (mg/dL) 250 H (70-110) mg/dL Assessment and Plan Plan: Acute hypoxemic respiratory failure, likely secondary to an exacerbation of systolic congestive heart failure, chest CTA demonstrates cardiomegaly, pulmonary vascular congestion, and small bilateral pleural effusions, left greater than right. No focal consolidations or evidence of pneumonia. NT proBNP also elevated at 4330. The presentation is typical of CHF. They EKG showing first-degree AV block with premature ventricular beats that are quite frequent. No issues with atrial fibrillation at this point in time. The patient has responded very nicely diuretics and the patient is currently on r oom air oxygen. Clinically feeling better. Repeat echocardiogram showed mildly reduced LV function and normal functioning of the eye prosthetic aortic valve. Acute CHF and the patient has mild impairment of LV function with ejection fraction of 40-45% based on an echocardiogram that was done following his percutaneous transcatheter aortic valve replacement. No significant paravalvular leaks at that time. The repeat echocardiogram showed stable findings Shortness of breath, secondary to above, improving Pseudoaneurysm of the right radial artery, likely a postprocedure complication History of severe aortic valve stenosis, status post transcatheter aortic valve replacement on November 30 Mildly elevated troponins, possibly related to recent cardiac procedure. Bigeminal PVCs, with a first-degree AV block Coronary artery disease, with history of CABG Diabetes mellitus type 2, insulin-dependent History of hyperlipidemia History of hypertension History of peripheral vascular disease History of atrial fibrillation History of benign prostatic hyperplasia Lifelong non-smoker Plan: continue Lasix 40 mg IV every 12 hours , clinically improving and will continue diuretics for now monitor renal function, creatinine is stable Repeat echocardiogram was noted Wean down FiO2 as tolerated to maintain a saturation above 90% Continue anticoagulation with Eliquis Continue Zestril 2.5 mg by mouth daily Continue Norvasc 5 mg by mouth daily We'll continue to follow make further recommendations based on his progress.
[2023-12-07] MEDS: INSULIN DETEMIR (LEVEMIR) 100 UNIT/ML SYR SQ SCH (13:14)
--- NOTE | 2023-12-07 14:16 | P.GSCN ---
History of Present Illness Consult date: 12/07/23 Reason for Consult: Left upper extremity pseudoaneurysm Requesting physician: Vernon Escalona History of present illness: This is a 78-year-old male who was recently admitted last week for TAVR with a left radial artery line who ended up with left upper extremity swelling and bruising. He also has a past medical history of atrial fibrillation, however he has not been on any [place] post discharge from last hospital. He was however started on Eliquis thiis morning. He had a pseudoaneurysm. Arterial ultrasound on 12/01/2023showed a left radial artery pseudoaneurysm at the upper forearm 1.8 x 1.3 x 1.2 cm. He was readmitted to the hospital 2 days ago for shortness of breath and confusion. He was noted to have continued left upper extremity swelling and bruising. He had a venous duplex completed yesterday with also looking at the pseudoaneurysm which measured 1.8 x 1.3 x 1.2 cm. He states that he has some discomfort along the entire left arm. He does have range of motion and is able to move his hand. Hemoglobin on admission 13.0, repeat today 12.4. INR 1.0. He denies any bleeding from the site. Review of Systems A 14 point review systems was completed all pertinent positives and negatives as stated in the HPI. Past Medical History Past Medical History: Coronary Artery Disease (CAD), Heart Failure, COPD, Dementia, Diabetes Mellitus, GERD/Reflux, Hyperlipidemia, Hypertension, Memory Impairment, Myocardial Infarction (TN), Neurologic Disorder, Osteoarthritis (OA), Pneumonia, Prostate Disorder, Vascular Disorder Additional Past Medical History / Comment(s): Hx falls and diarrhea/incontinence since diagnosed with Covid Oct 2022, daughter thinks he may have had a minor heart attack when he had Covid as well. 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 PAD. Enlarged prostate. Chronic back pain. Hx bronchitis. Sinus issues. Last Myocardial Infarction Date:: 2014 History of Any Multi-Drug Resistant Organisms: None Reported Past Surgical History: Coronary Bypass/CABG, Orthopedic Surgery Additional Past Surgical History / Comment(s): 2014 CABG 4 vessel/bioprosthetic aortic valve, angiograms, aortagram with bilateral run-offs, PTBA/atherectomy left leg, left foot surgery for crush injury, colonoscopy, bilateral cataract removals. TAVR Oct 2023. Past Anesthesia/Blood Transfusion Reactions: No Reported Reaction Past Psychological History: Anxiety, Depression Additional Psychological History / Comment(s): Pt has a lashanda, Rhoda, currently residing with him. His lashanda, Sagrario, lives near and assists with his care, she manages his medications/checks blood sugar and gives him his insulin as well as assists with getting him meals. His lashanda, Medina drives him to appts. 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 Pt has PT/OT but lashanda cannot recall name of company. They are planning to hire someone to assist pt 3 days a week with ADLs/etc. Smoking Status: Never smoker Past Alcohol Use History: Heavy Additional Past Alcohol Use History / Comment(s): Pt was a heavy drinker in the past but has not drank in over 20 years. Past Drug Use History: None Reported - Past Family History Father History Unknown: Yes Family Medical History: Congestive Heart Failure (CHF) Mother History Unknown: Yes Family Medical History: Congestive Heart Failure (CHF) Medications and Allergies Home Medications Medication Instructions Recorded Confirmed Type Omeprazole [PriLOSEC] 20 mg PO DAILY 02/23/15 12/05/23 History Donepezil [Aricept] 10 mg PO HS #30 03/13/15 12/05/23 Rx Tamsulosin HCl [Flomax] 0.4 mg PO DAILY 03/07/17 12/05/23 History Insulin Aspart [NovoLOG Flexpen] See Protocol SQ BID-W/MEALS 11/08/19 12/05/23 History Amitriptyline HCl [Elavil] 25 mg PO HS 03/16/22 12/05/23 History Oxybutynin Chloride [oxyBUTYnin 10 mg PO DAILY 03/16/22 12/05/23 History chloride ER] Potassium Chloride ER [K-Dur 10] 10 meq PO HS 03/16/22 12/05/23 History Insulin Glargine,Hum.rec.anlog 56 unit SQ W/LUNCH 04/05/22 12/05/23 History [Lantus Solostar Pen] amLODIPine [Norvasc] 5 mg PO DAILY 02/21/23 12/05/23 History Albuterol Nebulized [Ventolin 2.5 mg INHALATION RT-QID PRN 04/16/23 12/05/23 History Nebulized] Fluticasone Nasal [place] [Flonase 2 spr EA NOSTRIL DAILY PRN 04/16/23 12/05/23 History Nasal [place]] Atorvastatin [Lipitor] 80 mg PO HS 05/11/23 12/05/23 History Cholecalciferol [Vitamin D3 (125 125 mcg PO HS 05/11/23 12/05/23 History Mcg = 5000 Iu)] Furosemide [Lasix] 40 mg PO DAILY 05/11/23 12/05/23 History lisinopriL [Zestril] 2.5 mg PO DAILY 05/11/23 12/05/23 History Empagliflozin [Jardiance] 10 mg PO DAILY 11/23/23 12/05/23 History Semaglutide [Rybelsus] 3 mg PO DAILY 11/23/23 12/05/23 History Acetaminophen Tab [Tylenol] 650 mg PO Q4HR PRN tab 12/01/23 12/05/23 Rx Apixaban [Eliquis] 5 mg PO DIRECTED 12/05/23 12/05/23 History Allergies Allergy/AdvReac Type Severity Reaction Status Date / Time No Known Allergies Allergy Verified 12/05/23 19:33 Surgical - Exam Vital Signs Temp Pulse Resp BP Pulse Ox 98.6 F 61 22 129/45 96 12/05/23 15:47 12/05/23 15:47 12/05/23 15:47 12/05/23 15:47 12/05/23 15:47 General appearance: The patient is alert, oriented, appears in no acute distress. HET: Head is normocephalic and atraumatic. Pupils are equal and reactive. Neck: Supple. Heart: Regular. Lungs: Equal expansion, normal respiratory effort. Abdomen: Soft, nontender, nondistended. Extremities: Left upper extremity bruising and swelling noted in the forearm, week. Palpable radial pulse. Patient has good range of motion of the left upper extremity. Neurological: No focal deficits. Strength and sensation are grossly intact. Results - Labs 12/07/23 09:03 12/07/23 09:03 Abnormal Lab Results - Last 24 Hours (Table) 12/06/23 12/06/23 12/06/23 Range/Units 11:58 16:47 21:35 POC Glucose (mg/dL) 226 H 394 H 247 H (70-110) mg/dL 12/07/23 Range/Units 06:06 POC Glucose (mg/dL) 250 H (70-110) mg/dL - Imaging Comments: Venous duplex. Impression states grayscale, color Doppler, spectral Doppler imaging performed of the deep veins of the upper extremities. There is normal flow, compressibility and vascular waveforms. Redemonstration of radial artery pseudoaneurysm at the upper forearm. Addendum state. Pseudo-aneurysm measuring up to 1.3 cm at the neck and measuring up to in totality 1.8 x 1.3 x 1.2 cm Assessment and Plan Assessment: 1. Left radial artery pseudoaneurysm status post arterial line 2. Aortic stenosis with Recent TAVR done 11/30/23 3. Atrial fibrillation 4. Coronary artery disease Plan: 1. Hold Eliquis 2. Apply TR band to left wrist/radial artery 3. Repeat pseudoaneurysm. Arterial ultrasound ordered and reviewed 4. Repeat pseudoaneurysm. Arterial ultrasound ordered for tomorrow 5. If no improvement with pseudoaneurysm will plan for open left radial artery pseudo-aneurysm repair 6. Nothing by mouth after midnight Thank you for this consultation, we will continue to follow. The impression and plan of care has been dictated as directed. I performed a history and examination of this patient, discussed the same with the dictator. I agree with the dictator's note ,documented as a scribe. Any additional findings or plans will be noted.
--- NOTE | 2023-12-07 14:32 | P.PN ---
Subjective Progress Note Date: 12/07/23 Consult reason: congestive heart failure History of present illness: History of present illness: This is a 78 year old male with past medical history of hypertension, hyperlipidemia, diabetes mellitus type 2, coronary artery disease status post CABG 5 vessel in 2015, atherectomy left lower leg, severe aortic stenosis, PAD, benign prostatic hypertrophy, multiple falls, history of subdural hematoma, dementia, atrial fibrillation, history of non-ST elevated TN, congestive heart failure and ischemic cardiomyopathy with recent drop in EF down to 3540 p ercent. Patient was recently hospitalized on November 30 discharged on December 01 status post TAVR. We have been asked to evaluate the patient for heart failure. Patient has underlying dementia but states his daughter brought him into the hospital because he was short of breath. EKG sinus rhythm with first-degree A-V block, left bundle branch block which appears to be more prolonged since last EKG, PVCs Chest x-ray: Low lung volumes with generalized hazy appearance which could represent atelectasis versus pulmonary edema. CTA of the chest reveals no pulmonary embolism. Limited evaluation of segmental and subsegmental branches. Cardiac megaly with pulmonary vascular congestion. Mildly enlarged lymph nodes in the upper abdomen and mediastinum stable. 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 Limited echocardiogram reveals technically difficult study with suboptimal acoustic windows. Apical akinesis with mildly reduced LV systolic function. A bioprosthetic valve stable without any obvious paravalvular leak and acceptable gradients. EF 45-50%. WBC 9, hemoglobin 13, platelet count 163. Sodium 138, potassium 4.2, BUN 35 cr eatinine 1.41. Troponin 0.072, 0.065, 0.057. ProBNP 4330. Influenza A, influenza B, RSV, Covid 19 no detected. Home cardiac medications: Amlodipine 5 mg daily, eliquis 5 mg twice daily, Lipitor 80 mg at bedtime, Lasix 40 mg daily, lisinopril 2.5 mg daily,Jardiance 10 milligrams daily. 12/07 Blood pressure 133/67, heart rate in the 50s to 70s. WBC 9.3, hemoglobin 12.4. Sodium 137, potassium 4.2, chloride 109, CO2 16. BUN 42 creatinine 1.45. Blood sugar 314. Venous Doppler ordered yesterday revealed a pseudoaneurysm measuring up to 1.3 cm at the neck and measuring up to a totality of 1.8 x 1.3 cm x 1.2. Consult was added for vascular surgery. Patient may require surgery. Eliquis placed on hold Physical examination: Gen: This is a 78-year-old male sitting in the chair in no acute distress. VS: reviewed HEENT: Head is atraumatic, normocephalic. Pupils equal, round. Sclerae is ani cteric. NECK: Supple. No JVD. LUNGS: Clear to auscultation. No wheezes or rhonchi. No intercostal retractions. HEART: Irregular rate and rhythm. No murmur. ABDOMEN: Soft No tenderness. EXTREMITIES: 3+ pedal edema. No calf tenderness. Significant swelling and bruising to the left upper extremity. NEUROLOGICAL: Patient is awake, alert. Assessment: Acute on chronic systolic heart failure, bradycardia induced Acute on chronic hypoxic respiratory failure History of severe aortic valve stenosis status post transcatheter aortic valve replacement on 11/30/2023 Flat troponins that are most likely due to CHF/acute kidney injury/recent TAVR Left bundle branch block, widened since last EKG Acute kidney injury Hypertension Hyperlipidemia Coronary artery disease that is post 5 vessel CABG PAD Paroxysmal atrial fibrillation Ischemic cardiomyopathy Pseudoaneurysm left Plan: Continue patient's home cardiac medications Continue Lasix 40 mg IV every 12 hours Monitor I&O, daily weights, electrolytes and renal function Avoid all AV nehemiah blocking agents due to history of Wenckebach high-grade first-degree block Hold Eliquis Possible biventricular pacemaker implantation Further recommendations to follow based upon clinical course Nurse practitioner note has been reviewed, I agree with documented findings and plan of care. Patient was seen and examined. Objective - Vital Signs Vital signs: Vital Signs Temp 97.9 F 12/07/23 09:30 Pulse 76 12/07/23 09:30 Resp 18 12/07/23 09:30 BP 133/67 12/07/23 09:30 Pulse Ox 96 12/07/23 09:30 FiO2 Intake & Output 12/06/23 12/07/23 12/07/23 18:59 06:59 18:59 Intake Total 240 100 Output Total 1610 Balance -1610 240 100 Weight 109 kg 109 kg Intake: Oral 240 100 Output: Urine 1610 Other: # Voids 2 - Labs CBC & Chem 7: 12/07/23 09:03 12/07/23 09:03 Labs: Abnormal Lab Results - Last 24 Hours (Table) 12/06/23 12/06/23 12/07/23 Range/Units 16:47 21:35 06:06 Hgb (13.0-17.5) gm/dL Hct (39.0-53.0) % RDW (11.5-15.5) % Chloride (98-107) mmol/L Carbon Dioxide (22-30) mmol/L BUN (9-20) mg/dL Creatinine (0.66-1.25) mg/dL Glucose (74-99) mg/dL POC Glucose (mg/dL) 394 H 247 H 250 H (70-110) mg/dL 12/07/23 12/07/23 12/07/23 Range/Units 09:03 09:03 11:26 Hgb 12.4 L (13.0-17.5) gm/dL Hct 38.4 L (39.0-53.0) % RDW 15.8 H (11.5-15.5) % Chloride 109 H (98-107) mmol/L Carbon Dioxide 16 L (22-30) mmol/L BUN 42 H (9-20) mg/dL Creatinine 1.45 H (0.66-1.25) mg/dL Glucose 314 H (74-99) mg/dL POC Glucose (mg/dL) 455 H (70-110) mg/dL
[2023-12-07 16:25] LABS: Glucose,Whole Blood 292 mg/dL (70-110)
[2023-12-07 20:14] LABS: Glucose,Whole Blood 280 mg/dL (70-110)
[2023-12-07] MEDS: DONEPEZIL 10 MG TAB PO SCH (21:38)
[2023-12-07] MEDS: ATORVASTATIN 80 MG TAB PO SCH (21:38)
[2023-12-07] MEDS: AMITRIPTYLINE HCL 25 MG TAB PO SCH (21:38)
[2023-12-07] MEDS: CHOLECALCIFEROL 125 MCG (5000 IU) TABLET PO SCH (21:38)
[2023-12-08 06:08] LABS: Glucose,Whole Blood 219 mg/dL (70-110)
[2023-12-08] MEDS: INSULIN ASPART (NovoLOG) 100 UNIT/ML VIAL SQ SCH ×4 (06:48→20:54)
[2023-12-08 08:06] LABS: African American GFR (CKD) 55 (>60 ml/min/1.73 sqM); Anion Gap 10 mmol/L; Blood Urea Nitrogen 42 mg/dL (9-20); Calcium 8.7 mg/dL (8.4-10.2); Carbon Dioxide 21 mmol/L (22-30); Chloride 108 mmol/L (98-107); Glucose 207 mg/dL (74-99); Magnesium 2.4 mg/dL (1.6-2.3); Non-African American GFR(CKD) 48 (>60 ml/min/1.73 sqM); Potassium 4.6 mmol/L (3.5-5.1); Sodium 139 mmol/L (137-145)
--- NOTE | 2023-12-08 09:05 | P.PN ---
Subjective Progress Note Date: 12/08/23 Principal diagnosis: Left Radial artery pseudoaneurysm Patient seen and examined today as a follow-up. He has TR band still in place. He is able to move his hand well. Sensorimotor intact. States that there is some discomfort there. Awaiting results of repeat left upper extremity ultrasound and depending on if there is any change or not. 2. Pseudoaneurysm patient is tentatively scheduled for a left radial artery pseudoaneurysm repair. Otherwise he is without any complaints at this time. Objective - Vital Signs Vital signs: Vital Signs Temp 97.9 F 12/07/23 20:00 Pulse 72 12/08/23 04:00 Resp 22 12/08/23 04:00 BP 144/74 12/08/23 04:00 Pulse Ox 98 12/08/23 04:00 FiO2 Intake & Output 12/07/23 12/08/23 12/08/23 18:59 06:59 18:59 Intake Total 458 Output Total 250 Balance 458 -250 Weight 109 kg 80.1 kg Intake: Oral 458 Output: Urine 250 Other: # Voids 2 1 # Bowel Movements 1 - Exam General appearance: The patient is alert, oriented, appears in no acute distress. HET: Head is normocephalic and atraumatic. Pupils are equal and reactive. Neck: Supple. Heart: Regular. Lungs: Equal expansion, normal respiratory effort. Abdomen: Soft, obese, nondistended. Extremities: Left wrist with TR band in place. Good capillary refill. Sensorimotor intact. Left forearm with significant bruising. Neurological: No focal deficits. Alert and oriented. - Labs CBC & Chem 7: 12/07/23 09:03 12/08/23 07:15 Labs: Abnormal Lab Results - Last 24 Hours (Table) 12/07/23 12/07/23 12/07/23 Range/Units 09:03 09:03 11:26 Hgb 12.4 L (13.0-17.5) gm/dL Hct 38.4 L (39.0-53.0) % RDW 15.8 H (11.5-15.5) % Chloride 109 H (98-107) mmol/L Carbon Dioxide 16 L (22-30) mmol/L BUN 42 H (9-20) mg/dL Creatinine 1.45 H (0.66-1.25) mg/dL Glucose 314 H (74-99) mg/dL POC Glucose (mg/dL) 455 H (70-110) mg/dL Magnesium (1.6-2.3) mg/dL 12/07/23 12/07/23 12/08/23 Range/Units 16:22 20:13 06:06 Hgb (13.0-17.5) gm/dL Hct (39.0-53.0) % RDW (11.5-15.5) % Chloride (98-107) mmol/L Carbon Dioxide (22-30) mmol/L BUN (9-20) mg/dL Creatinine (0.66-1.25) mg/dL Glucose (74-99) mg/dL POC Glucose (mg/dL) 292 H 280 H 219 H (70-110) mg/dL Magnesium (1.6-2.3) mg/dL 12/08/23 Range/Units 07:15 Hgb (13.0-17.5) gm/dL Hct (39.0-53.0) % RDW (11.5-15.5) % Chloride 108 H (98-107) mmol/L Carbon Dioxide 21 L (22-30) mmol/L BUN 42 H (9-20) mg/dL Creatinine 1.43 H (0.66-1.25) mg/dL Glucose 207 H (74-99) mg/dL POC Glucose (mg/dL) (70-110) mg/dL Magnesium 2.4 H (1.6-2.3) mg/dL Assessment and Plan Assessment: 1. Left radial artery pseudoaneurysm status post arterial line 2. Aortic stenosis with Recent TAVR done 11/30/23 3. Atrial fibrillation 4. Coronary artery disease Plan: 1. Hold Eliquis Repeat pseudoaneurysm Arterial ultrasound ordered, pending results 4. If no improvement with pseudoaneurysm will plan for open left radial artery pseudo-aneurysm repair 5. Keep nothing by mouth 6. Further recommendations forthcoming per vascular surgeon pending p seudoaneurysm ultrasound report Thank you for this consultation, we will continue to follow. The impression and plan of care has been dictated as directed. I performed a history and examination of this patient, discussed the same with the dictator. I agree with the dictator's note ,documented as a scribe. Any additional findings or plans will be noted. Due to location of pseudoaneurysm in the more proximal area, patient overall comorbidities, it was decided that the risk profile of intraoperative intervention was worsened than potential thrombin injection. Intervention radiology evaluated. Was able to successfully inject without consequence. May continue oral anticoag
--- NOTE | 2023-12-08 09:11 | US ---
EXAMINATION TYPE: US upper ext pseudo LT DATE OF EXAM: 12/08/2023 COMPARISON: US 12/01/2023, US 12/06/2023 CLINICAL INDICATION: Male, 78 years old with history of re-evaluate pseudoaneurysm; History pseudoane urysm at left upper forearm. Patient has compression at left wrist. Bruising. TECHNIQUE: Multiple images taken of left upper forearm at pseudoaneurysm. FINDINGS: Pseudoaneurysm redemonstrated with vascular flow seen within. Total pseudoaneurysm size = 1.5 x 1.4 x 1.0 cm with neck measuring = 2.0 mm. IMPRESSION: 1. Exam small pseudoaneurysm measuring 1.5 x 1.4 x 1 cm with partial thrombosis.
[2023-12-08 11:31] LABS: Glucose,Whole Blood 176 mg/dL (70-110)
[2023-12-08] MEDS ORDERED: THROMBIN (BOVINE) 5,000 UNIT VIAL MISCELLANE STA (12:01)
[2023-12-08] MEDS: TAMSULOSIN 0.4 MG CAP.ER.24H PO SCH (12:29)
[2023-12-08] MEDS: lisinopriL 10 MG TAB PO SCH (12:29)
[2023-12-08] MEDS: amLODIPine 5 MG TAB PO SCH (12:29)
[2023-12-08] MEDS: NITROGLYCERIN OINT 1 INCH/GM PACKET TOPICAL SCH ×4 (12:30→20:54)
--- NOTE | 2023-12-08 14:57 | P.PN ---
Subjective Progress Note Date: 12/08/23 78-year-old male patient was being seen in the emergency department for worsening shortness of breath. The patient is known to have an extensive cardiac history. He is known to have coronary artery disease and he has undergone also previous bypass surgery. He also has history of aortic stenosis and he has undergone a percutaneous transcatheter aortic valve replacement and this was done without any complications. The procedure was done in November 2023. Follow-up echocardiogram that was done following the procedure showed moderate LV systolic dysfunction with an ejection fraction of 45-50%. Moderate concentric left ventricular hypertrophy. Mild pulmonary hypertension. The BiPAP or static aortic valve showed some mild regurgitation. Otherwise, he had a normal function. He also had mild aortic dilatation measuring up to 39 mm in size. The patient presented with worsening shortness of breath and lower extremity edema and his chest x-ray showed pulmonary vessel congestion and cardiomegaly and small left-sided pleural effusion. CAT scan of the chest was also done that showed no evidence of any pulmonary embolism. It showed cardiomegaly and pulmonary vascular congestion. He also had mild enlarged lymph nodes. Overnight, the patient was started on diuretics. His renal function is being monitored. Clinically is feeling better. ProBNP was 4330. There was also a troponin leak with a troponin maximum 0.07. The viral panel was negative. Other pertinent medical history includes coronary artery disease with previous CABG, diabetes mellitus, hyperlipidemia, hypertension, peripheral vascular disease, BPH, among other things. Denies any history of COPD or asthma. Denies ever being a tobacco smoker. Patient himself is technically a poor historian. He may have history of dementia, takes Aricept at home. He states he came to the hospital because his daughter brought him in. Apparently, the patient has been experiencing several days of ongoing shortness of breath, weakness, and lower extremity swelling. Admits orthopnea and sleeps with 3 pillows at night. Denies any chest pain, heart palpitations, syncopal events. Denies any infectious symptoms such as fever, cough, chest pain, hemoptysis. Chest CTA on arrival did not show any evidence of large central pulmonary embolism. There was cardiomegaly with pulmonary vascular congestion and bilateral pleural effusions left greater than right. There was also some mildly enlarged lymph nodes in the upper abdomen and mediastinum which were stable from previous exam and likely reactive. NT proBNP also elevated at 4330, supporting evidence of CHF. Patient is currently sitting up in the bedside recliner, on 2 L/m nasal cannula, not in any distress at rest. ECG on arrival showed a sinus rhythm with bigeminal unifocal PVCs. CBC on arrival unremarkable. No evidence of leukocytosis. BMP on arrival: Sodium 137, potassium 4.6, chloride 109, serum 6 bicarb 18, BUN 31, creatinine 1.1, glucose 135. Lactic acid level I.6. Troponins mildly elevated at 0.072 and 0.065. Negative for influenza, RSV, COVID-19. Afebrile. Vital signs are stable. On 12/07/2023, seeing the patient for a follow-up. Is feeling better blood short of breath compared to yesterday. He was hospitalized for CHF and fluid overload. The patient was subjected IV Lasix 40 mg IV every 12 hours. Is currently on room air oxygen. No reported chest pain. A limited echocardiogram was done and the patient was found to have mildly reduced LV function. The bioprosthetic aortic valve was functional and there was no evidence of any par avalvular leak. Meanwhile, Doppler of the lower extremity was also done and the patient was found to have pseudoaneurysm of 1.3 cm at the neck and he was measuring around 1.8 x 1.3 x 1.2 cm in size and this is in the right radial artery. There was no evidence of any DVT. The patient is obviously cause of 9.3, hemoglobin was 12.4, BUN is at 42 with a creatinine 1.45 and sodium levels of 137. He does have some limited troponin leak. ProBNP level was 4330 the time of admission. On 12/08/2023, the patient remains on Lasix 40 mg IV every 12 hours. Progressively improving and the patient has been producing adequate amount of urine output. Fluid balance has been negative. BUN is at 40 with a creatinine of 1.4 and the patient's sodium level is at 139. Patient is currently on room air oxygen with a pulse ox 99%. His resting comfortably in bed. Is able to lay down flat. Objective - Vital Signs Vital signs: Vital Signs Temp 98.1 F 12/08/23 08:30 Pulse 72 12/08/23 08:30 Resp 18 12/08/23 08:30 BP 180/77 12/08/23 08:30 Pulse Ox 99 12/08/23 08:30 FiO2 Intake & Output 12/07/23 12/08/23 12/08/23 18:59 06:59 18:59 Intake Total 458 0 Output Total 250 Balance 458 -250 0 Weight 109 kg 80.1 kg Intake: Oral 458 0 Output: Urine 250 Other: # Voids 2 1 1 # Bowel Movements 1 - Exam GENERAL EXAM: Alert, 78-year-old obese white male, sitting up in the bedside recliner, comfortable in no apparent distress at rest. The patient is currently on room air oxygen. HEAD: Normocephalic and atraumatic EYES: Normal reaction of pupils, equal size. NOSE: Clear with pink turbinates. THROAT: No erythema or exudates. NECK: No masses, no JVD. CHEST: No chest wall deformity. remote appearing sternotomy incsion. LUNGS: Equal air entry with no crackles, wheeze, rhonchi or dullness. No conversational dyspnea or accessory muscle use.. CVS: S1 and S2 normal with no audible murmur, regularly irregular rhythm. No extra heart sounds ABDOMEN: Obese abdomen, bowel hepatosplenomegaly, active bowel sounds, no guarding or rigidity. SPINE: No scoliosis or deformity SKIN: Chronic venous stasis changes to the bilateral lower extremities CENTRAL NERVOUS SYSTEM: No focal deficits, tone is normal in all 4 extremities. EXTREMITIES: There is 1+ bilateral lower extremity edema. No clubbing, or cyanosis. Peripheral pulses are weak throughout. Extremities are warm. - Labs CBC & Chem 7: 12/07/23 09:03 12/08/23 07:15 Labs: Abnormal Lab Results - Last 24 Hours (Table) 12/07/23 12/07/23 12/07/23 Range/Units 09:03 16:22 20:13 Chloride 109 H (98-107) mmol/L Carbon Dioxide 16 L (22-30) mmol/L BUN 42 H (9-20) mg/dL Creatinine 1.45 H (0.66-1.25) mg/dL Glucose 314 H (74-99) mg/dL POC Glucose (mg/dL) 292 H 280 H (70-110) mg/dL Magnesium (1.6-2.3) mg/dL 12/08/23 12/08/23 12/08/23 Range/Units 06:06 07:15 11:31 Chloride 108 H (98-107) mmol/L Carbon Dioxide 21 L (22-30) mmol/L BUN 42 H (9-20) mg/dL Creatinine 1.43 H (0.66-1.25) mg/dL Glucose 207 H (74-99) mg/dL POC Glucose (mg/dL) 219 H 176 H (70-110) mg/dL Magnesium 2.4 H (1.6-2.3) mg/dL Assessment and Plan Plan: Acute hypoxemic respiratory failure, likely secondary to an exacerbation of systolic congestive heart failure, chest CTA demonstrates cardiomegaly, pulmonary vascular congestion, and small bilateral pleural effusions, left greater than right. No focal consolidations or evidence of pneumonia. NT proBNP also elevated at 4330. The presentation is typical of CHF. They EKG showing first-degree AV block with premature ventricular beats that are quite frequent. No issues with atrial fibrillation at this point in time. The patient has responded very nicely diuretics and the patient is currently on room air oxygen. Clinically feeling better. Repeat echocardiogram showed mildly reduced LV function and normal functioning of the bio prosthetic aortic valve. Acute CHF and the patient has mild impairment of LV function with ejection fraction of 40-45% based on an echocardiogram that was done following his percutaneous transcatheter aortic valve replacement. No significant paravalvu lar leaks at that time. The repeat echocardiogram showed stable findings Shortness of breath, secondary to above, improving Pseudoaneurysm of the right radial artery, likely a postprocedure complication History of severe aortic valve stenosis, status post transcatheter aortic valve replacement on November 30 Mildly elevated troponins, possibly related to recent cardiac procedure. 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
--- NOTE | 2023-12-08 15:03 | US ---
ULTRASOUND GUIDED SUBTLY ANEURYSM INJECTION LEFT RADIAL ARTERY: CLINICAL HISTORY: Left radial artery pseudoaneurysm postcatheterization FINDINGS: The procedure was explained to the patient and patient's family. The risks, complications, benefits and alternatives were discussed and any questions were answered. Informed consent was obtained. Pat ient was placed supine on the ultrasound table and prepped and draped in the usual sterile fashion. Preprocedural pulses were obtained. Utilizing a 25 gauge needle, under direct ultrasound guidance a single pass was made into the left ra dial artery pseudoaneurysm with approximately 50 units of thrombin instilled into the pseudoaneurysm. Repeat imaging documents complete thrombosis post procedure. Patient was stable throughout the procedure. Pulses were stable postprocedure relative to the preproc edural pulses and ultrasound documenting patency of the arterial system of the left upper extremity. All elements of maximal barrier and sterile technique were utilized. IMPRESSION: 1. Successful ultrasound guided thrombin injection for left radial artery pseudoaneurysm.
[2023-12-08 15:11] LABS: Glucose,Whole Blood 168 mg/dL (70-110)
--- NOTE | 2023-12-08 15:36 | P.PN ---
Subjective Progress Note Date: 12/08/23 Consult reason: congestive heart failure History of present illness: History of present illness: This is a 78 year old male with past medical history of hypertension, hyperlipidemia, diabetes mellitus type 2, coronary artery disease status post CABG 5 vessel in 2015, atherectomy left lower leg, severe aortic stenosis, PAD, benign prostatic hypertrophy, multiple falls, history of subdural hematoma, dementia, atrial fibrillation, history of non-ST elevated VT, congestive heart failure and ischemic cardiomyopathy with recent drop in EF down to 3540 p ercent. Patient was recently hospitalized on November 30 discharged on December 01 status post TAVR. We have been asked to evaluate the patient for heart failure. Patient has underlying dementia but states his daughter brought him into the hospital because he was short of breath. EKG sinus rhythm with first-degree A-V block, left bundle branch block which appears to be more prolonged since last EKG, PVCs Chest x-ray: Low lung volumes with generalized hazy appearance which could represent atelectasis versus pulmonary edema. CTA of the chest reveals no pulmonary embolism. Limited evaluation of segmental and subsegmental branches. Cardiac megaly with pulmonary vascular congestion. Mildly enlarged lymph nodes in the upper abdomen and mediastinum stable. 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 Limited echocardiogram reveals technically difficult study with suboptimal acoustic windows. Apical akinesis with mildly reduced LV systolic function. A bioprosthetic valve stable without any obvious paravalvular leak and acceptable gradients. EF 45-50%. WBC 9, hemoglobin 13, platelet count 163. Sodium 138, potassium 4.2, BUN 35 cr eatinine 1.41. Troponin 0.072, 0.065, 0.057. ProBNP 4330. Influenza A, influenza B, RSV, Covid 19 no detected. Home cardiac medications: Amlodipine 5 mg daily, eliquis 5 mg twice daily, Lipitor 80 mg at bedtime, Lasix 40 mg daily, lisinopril 2.5 mg daily,Jardiance 10 milligrams daily. 12/07 Blood pressure 133/67, heart rate in the 50s to 70s. WBC 9.3, hemoglobin 12.4. Sodium 137, potassium 4.2, chloride 109, CO2 16. BUN 42 creatinine 1.45. Blood sugar 314. Venous Doppler ordered yesterday revealed a pseudoaneurysm measuring up to 1.3 cm at the neck and measuring up to a totality of 1.8 x 1.3 cm x 1.2. Consult was added for vascular surgery. Patient may require surgery. Eliquis placed on hold 12/08 Patient is seen today in follow-up. He is noted to have less edema in the left arm. He is going today for left radial artery pseudoaneurysm repair. No plan for pacemaker insertion at this time. He continues to have lower extremity edema. Blood pressure readings have been elevated 180/77, heart rate is in the 60s and 70s. Repeat blood work reveals sodium 139, potassium 4.6, CO2 21, BUN 42, creatinine 1.43. Physical examination: Gen: This is a 78-year-old male sitting in the chair in no acute distress. VS: reviewed HEENT: Head is atraumatic, normocephalic. Pupils equal, round. Sclerae is anicteric. NECK: Supple. No JVD. LUNGS: Clear to auscultation. No wheezes or rhonchi. No intercostal retractions. HEART: Irregular rate and rhythm. No murmur. ABDOMEN: Soft No tenderness. EXTREMITIES: 2+ pedal edema. No calf tenderness. Significant swelling and bruising to the left upper extremity is improving. NEUROLOGICAL: Patient is awake, alert. Assessment: Acute on chronic systolic heart failure, bradycardia induced Acute on chronic hypoxic respiratory failure History of severe aortic valve stenosis status post transcatheter aortic valve replacement on 11/30/2023 Flat troponins that are most likely due to CHF/acute kidney injury/recent TAVR Left bundle branch block, widened since last EKG Acute kidney injury Hypertension Hyperlipidemia Coronary artery disease that is post 5 vessel CABG PAD Paroxysmal atrial fibrillation Ischemic cardiomyopathy Pseudoaneurysm left Plan: Continue patient's home cardiac medications Continue Lasix 40 mg IV every 12 hours Monitor I&O, daily weights, electrolytes and renal function Increase lisinopril to 10 mg daily Avoid all AV nehemiah blocking agents due to history of Wenckebach high-grade first-degree block Plan to resume Eliquis on Tuesday Patient will have outpatient evaluation for pacemaker need Would optimize heart failure medications Further recommendations to follow based upon clinical course Nurse practitioner note has been reviewed, I agree with documented findings and plan of care. Patient was seen and examined. Objective - Vital Signs Vital signs: Vital Signs Temp 98.1 F 12/08/23 08:30 Pulse 72 12/08/23 08:30 Resp 18 12/08/23 08:30 BP 180/77 12/08/23 08:30 Pulse Ox 99 12/08/23 08:30 FiO2 Intake & Output 12/07/23 12/08/23 12/08/23 18:59 06:59 18:59 Intake Total 458 0 Output Total 250 Balance 458 -250 0 Weight 109 kg 80.1 kg Intake: Oral 458 0 Output: Urine 250 Other: # Voids 2 1 1 # Bowel Movements 1 - Labs CBC & Chem 7: 12/07/23 09:03 12/08/23 07:15 Labs: Abnormal Lab Results - Last 24 Hours (Table) 12/07/23 12/07/23 12/08/23 Range/Units 16:22 20:13 06:06 Chloride (98-107) mmol/L Carbon Dioxide (22-30) mmol/L BUN (9-20) mg/dL Creatinine (0.66-1.25) mg/dL Glucose (74-99) mg/dL POC Glucose (mg/dL) 292 H 280 H 219 H (70-110) mg/dL Magnesium (1.6-2.3) mg/dL 12/08/23 12/08/23 Range/Units 07:15 11:31 Chloride 108 H (98-107) mmol/L Carbon Dioxide 21 L (22-30) mmol/L BUN 42 H (9-20) mg/dL Creatinine 1.43 H (0.66-1.25) mg/dL Glucose 207 H (74-99) mg/dL POC Glucose (mg/dL) 176 H (70-110) mg/dL Magnesium 2.4 H (1.6-2.3) mg/dL
--- NOTE | 2023-12-08 16:27 | P.PN ---
Subjective Progress Note Date: 12/08/23 No new complaints. Pending OR for pseudoaneurysm repair. Gen: in no apparent distress, resting comfortably in bed Eyes: PERRL, no scleral injection or icterus HENT: normocephalic, atraumatic, good hearing acuity, moist mucous membranes Neck: no tracheal deviation, full range of motion Resp: good air exchange, breathing comfortably with no accessory muscle use, no tactile fremitus CVS: good distal perfusion x 4, no pitting edema GI: soft, NTTP, ND, no hepatosplenomegaly : no suprapubic tenderness, no CVAT, mora catheter not present MSK: no clubbing, no cyanosis, no noted contractures of extremities Skin: no noted rashes, petechiae; temperature of skin is appropriate Neuro: moving all extremities without signs of weakness, CN II-XII intact Psych: cooperative, euthymic mood, insight and judgment intact Hospital course: 78-year-old male with an extensive PMH including systolic CHF, CAD status post CABG, status post TAVR, type II DM, dementia, hypertension, hyperlipidemia, BPH, and A. fib who presents to the emergency room with complaints of shortness of breath. Patient had TAVR on 11/30/23 and was discharged home on 12/01. Chest CTA revealed cardiomegaly with vascular congestion with enlarged mediastinal and upper abdomen lymph nodes suspected reactive. EKG reveals sinus rhythm with first-degree AV block with PVCs at 61 bpm with a left bundle branch block (not present on prior EKGs). Laboratory evaluation was remarkable for troponin 0.072, proBNP 4330, lactic acid 1.6, with respiratory viral panel negative. Vital signs within normal limits. Requiring 2 L oxygen via nasal cannula. CHF exacerbation. Both pulmonology and cardiology consulted. Lower extremity Dopplers did not show any DVT. Renal ultrasound did not show any evidence of obstructive uropathy. Echocardiogram shows LVEF 45-50%, apical akinesis, bioprosthetic valva stable. Assessment and Plan: Active: Acute systolic CHF exacerbation Acute hypoxic respiratory failure NSTEMI, non-ischemic Aortic valve stenosis Status post recent TAVR -Continue IV Lasix 40 twice a day, monitor urine output and electrolytes -Cardiology and pulmonology following -Continue Eliquis 5 twice a day Left radial pseudoaneurysm -Vascular surgery consulted -Plan for pseudoaneurysm repair on 12/08 Nonoliguric acute kidney injury, stable BPH -Continue Flomax 0.4 -Hold oxybutynin -Continue lisinopril for now, as it is very small dose -Repeat BMP tomorrow Hypertension -Continue amlodipine 5 -Continue lisinopril 2.5 daily -Also nitroglycerin topical Type 2 diabetes -Home Lantus 56 units restarted -Sliding scale insulin, monitor for hypoglycemia Left foot ulcer, present on admission -Wound care consult Chronic: History of dementia DVT ppx: Eliquis Code status: Full code Anticipated discharge place: Pending clinical course Anticipated discharge time: pending clinical course Objective - Vital Signs Vital signs: Vital Signs Temp 98.1 F 12/08/23 08:30 Pulse 67 12/08/23 14:35 Resp 18 12/08/23 14:35 BP 169/77 12/08/23 14:35 Pulse Ox 99 12/08/23 14:35 FiO2 Intake & Output 12/07/23 12/08/23 12/08/23 18:59 06:59 18:59 Intake Total 458 0 Output Total 250 Balance 458 -250 0 Weight 109 kg 80.1 kg Intake: Oral 458 0 Output: Urine 250 Other: # Voids 2 1 1 # Bowel Movements 1 - Labs CBC & Chem 7: 12/07/23 09:03 12/08/23 07:15 Labs: Abnormal Lab Results - Last 24 Hours (Table) 12/07/23 12/07/23 12/08/23 Range/Units 16:22 20:13 06:06 Chloride (98-107) mmol/L Carbon Dioxide (22-30) mmol/L BUN (9-20) mg/dL Creatinine (0.66-1.25) mg/dL Glucose (74-99) mg/dL POC Glucose (mg/dL) 292 H 280 H 219 H (70-110) mg/dL Magnesium (1.6-2.3) mg/dL 12/08/23 12/08/23 12/08/23 Range/Units 07:15 11:31 15:09 Chloride 108 H (98-107) mmol/L Carbon Dioxide 21 L (22-30) mmol/L BUN 42 H (9-20) mg/dL Creatinine 1.43 H (0.66-1.25) mg/dL Glucose 207 H (74-99) mg/dL POC Glucose (mg/dL) 176 H 168 H (70-110) mg/dL Magnesium 2.4 H (1.6-2.3) mg/dL
[2023-12-08 16:36] LABS: Glucose,Whole Blood 346 mg/dL (70-110)
[2023-12-08] MEDS: FUROSEMIDE 10 MG/ML 4 ML VIAL IV SCH ×2 (16:38→20:55)
[2023-12-08] MEDS: INSULIN DETEMIR (LEVEMIR) 100 UNIT/ML SYR SQ SCH (16:59)
[2023-12-08 20:50] LABS: Glucose,Whole Blood 312 mg/dL (70-110)
[2023-12-08] MEDS: AMITRIPTYLINE HCL 25 MG TAB PO SCH (20:54)
[2023-12-08] MEDS: DONEPEZIL 10 MG TAB PO SCH (20:54)
[2023-12-08] MEDS: APIXABAN 5 MG TAB PO SCH (20:54)
[2023-12-08] MEDS: ATORVASTATIN 80 MG TAB PO SCH (20:54)
[2023-12-08] MEDS: CHOLECALCIFEROL 125 MCG (5000 IU) TABLET PO SCH (20:55)
[2023-12-09 05:56] LABS: Glucose,Whole Blood 162 mg/dL (70-110)
[2023-12-09] MEDS: INSULIN ASPART (NovoLOG) 100 UNIT/ML VIAL SQ SCH ×4 (06:22→20:20)
--- NOTE | 2023-12-09 08:16 | US ---
EXAMINATION TYPE: US upper ext pseudo LT DATE OF EXAM: 12/09/2023 Exam done portable COMPARISON: US 2023 CLINICAL INDICATION: Male, 78 years old with history of follow up, post thrombin injection; Left upper forearm pseudoaneurysm appears thrombosed IMPRESSION: Successful complete thrombosis of pseudoaneurysm
[2023-12-09] MEDS: lisinopriL 10 MG TAB PO SCH (09:27)
[2023-12-09] MEDS: FUROSEMIDE 10 MG/ML 4 ML VIAL IV SCH ×2 (09:27→20:20)
[2023-12-09] MEDS: APIXABAN 5 MG TAB PO SCH ×2 (09:27→20:20)
[2023-12-09] MEDS: TAMSULOSIN 0.4 MG CAP.ER.24H PO SCH (09:27)
[2023-12-09] MEDS: amLODIPine 5 MG TAB PO SCH (09:27)
--- NOTE | 2023-12-09 09:58 | P.PN ---
Subjective Progress Note Date: 12/09/23 Patient seen and examined today as a follow-up. He is able to move his hand well. Underwent intervention yesterday for thrombin injection to very proximal radial artery pseudoaneurysm Objective - Vital Signs Vital signs: Vital Signs Temp 97.8 F 12/08/23 16:00 Pulse 70 12/09/23 04:00 Resp 20 12/09/23 04:00 BP 148/64 12/09/23 04:00 Pulse Ox 99 12/09/23 04:00 FiO2 Intake & Output 12/08/23 12/09/23 12/09/23 18:59 06:59 18:59 Intake Total 120 240 Output Total 575 Balance 120 -335 Intake: Oral 120 240 Output: Urine 575 Other: Voiding Method Toilet Toilet Urinal Urinal # Voids 3 1 - Exam General appearance: The patient is alert, oriented, appears in no acute distress. HET: Head is normocephalic and atraumatic. Pupils are equal and reactive. Neck: Supple. Heart: Regular. Lungs: Equal expansion, normal respiratory effort. Abdomen: Soft, obese, nondistended. Extremities: Good capillary refill. Sensorimotor intact. Left forearm with improving ecchymosis, soft Neurological: No focal deficits. Alert and oriented. - Labs CBC & Chem 7: 12/07/23 09:03 12/08/23 07:15 Labs: Abnormal Lab Results - Last 24 Hours (Table) 12/08/23 12/08/23 12/08/23 Range/Units 11:31 15:09 16:34 POC Glucose (mg/dL) 176 H 168 H 346 H (70-110) mg/dL 12/08/23 12/09/23 Range/Units 20:30 05:51 POC Glucose (mg/dL) 312 H 162 H (70-110) mg/dL Assessment and Plan Assessment: 1. Left radial artery pseudoaneurysm status post proximal arterial line 2. Aortic stenosis with Recent TAVR done 11/30/23 3. Atrial fibrillation 4. Coronary artery disease Plan: Overall patient seems to have tolerated the town injection well. No further plans from vascular standpoint. We'll sign off at this time. Please us know if we can be of further assistance
[2023-12-09 11:24] LABS: Glucose,Whole Blood 216 mg/dL (70-110)
[2023-12-09] MEDS: INSULIN DETEMIR (LEVEMIR) 100 UNIT/ML SYR SQ SCH (12:07)
--- NOTE | 2023-12-09 14:42 | P.PN ---
Subjective Progress Note Date: 12/09/23 78-year-old male patient was being seen in the emergency department for worsening shortness of breath. The patient is known to have an extensive cardiac history. He is known to have coronary artery disease and he has undergone also previous bypass surgery. He also has history of aortic stenosis and he has undergone a percutaneous transcatheter aortic valve replacement and this was done without any complications. The procedure was done in November 2023. Follow-up echocardiogram that was done following the procedure showed moderate LV systolic dysfunction with an ejection fraction of 45-50%. Moderate concentric left ventricular hypertrophy. Mild pulmonary hypertension. The BiPAP or static aortic valve showed some mild regurgitation. Otherwise, he had a normal function. He also had mild aortic dilatation measuring up to 39 mm in size. The patient presented with worsening shortness of breath and lower extremity edema and his chest x-ray showed pulmonary vessel congestion and cardiomegaly and small left-sided pleural effusion. CAT scan of the chest was also done that showed no evidence of any pulmonary embolism. It showed cardiomegaly and pulmonary vascular congestion. He also had mild enlarged lymph nodes. Overnight, the patient was started on diuretics. His renal function is being monitored. Clinically is feeling better. ProBNP was 4330. There was also a troponin leak with a troponin maximum 0.07. The viral panel was negative. Other pertinent medical history includes coronary artery disease with previous CABG, diabetes mellitus, hyperlipidemia, hypertension, peripheral vascular disease, BPH, among other things. Denies any history of COPD or asthma. Denies ever being a tobacco smoker. Patient himself is technically a poor historian. He may have history of dementia, takes Aricept at home. He states he came to the hospital because his daughter brought him in. Apparently, the patient has been experiencing several days of ongoing shortness of breath, weakness, and lower extremity swelling. Admits orthopnea and sleeps with 3 pillows at night. Denies any chest pain, heart palpitations, syncopal events. Denies any infectious symptoms such as fever, cough, chest pain, hemoptysis. Chest CTA on arrival did not show any evidence of large central pulmonary embolism. There was cardiomegaly with pulmonary vascular congestion and bilateral pleural effusions left greater than right. There was also some mildly enlarged lymph nodes in the upper abdomen and mediastinum which were stable from previous exam and likely reactive. NT proBNP also elevated at 4330, supporting evidence of CHF. Patient is currently sitting up in the bedside recliner, on 2 L/m nasal cannula, not in any distress at rest. ECG on arrival showed a sinus rhythm with bigeminal unifocal PVCs. CBC on arrival unremarkable. No evidence of leukocytosis. BMP on arrival: Sodium 137, potassium 4.6, chloride 109, serum 6 bicarb 18, BUN 31, creatinine 1.1, glucose 135. Lactic acid level I.6. Troponins mildly elevated at 0.072 and 0.065. Negative for influenza, RSV, COVID-19. Afebrile. Vital signs are stable. On 12/07/2023, seeing the patient for a follow-up. Is feeling better blood short of breath compared to yesterday. He was hospitalized for CHF and fluid overload. The patient was subjected IV Lasix 40 mg IV every 12 hours. Is currently on room air oxygen. No reported chest pain. A limited echocardiogram was done and the patient was found to have mildly reduced LV function. The bioprosthetic aortic valve was functional and there was no evidence of any par avalvular leak. Meanwhile, Doppler of the lower extremity was also done and the patient was found to have pseudoaneurysm of 1.3 cm at the neck and he was measuring around 1.8 x 1.3 x 1.2 cm in size and this is in the right radial artery. There was no evidence of any DVT. The patient is obviously cause of 9.3, hemoglobin was 12.4, BUN is at 42 with a creatinine 1.45 and sodium levels of 137. He does have some limited troponin leak. ProBNP level was 4330 the time of admission. On 12/08/2023, the patient remains on Lasix 40 mg IV every 12 hours. Progressively improving and the patient has been producing adequate amount of urine output. Fluid balance has been negative. BUN is at 40 with a creatinine of 1.4 and the patient's sodium level is at 139. Patient is currently on room air oxygen with a pulse ox 99%. His resting comfortably in bed. Is able to lay down flat. On 12/09/2023, the patient is doing well. Patient was diabetes adequate and the patient continues to be on Lasix 40 mg IV every 12 hours. Edema lower extremity improving. On today's evaluation, the patient is on room air oxygen. No significant chest pain or shortness of breath. The fluid balance remains nega tive, and the labs from yesterday shows a creatinine of 1.4 with a BUN of 42 and a sodium level is at 139. Objective - Vital Signs Vital signs: Vital Signs Temp 97.8 F 12/09/23 09:25 Pulse 70 12/09/23 09:25 Resp 18 12/09/23 09:25 BP 137/65 12/09/23 09:25 Pulse Ox 96 12/09/23 09:25 FiO2 Intake & Output 12/08/23 12/09/23 12/09/23 18:59 06:59 18:59 Intake Total 120 240 125 Output Total 575 Balance 120 -335 125 Intake: Oral 120 240 125 Output: Urine 575 Other: Voiding Method Toilet Toilet Toilet Urinal Urinal Urinal # Voids 3 1 - Exam GENERAL EXAM: Alert, 78-year-old obese white male, sitting up in the bedside recliner, comfortable in no apparent distress at rest. The patient is currently on room air oxygen. HEAD: Normocephalic and atraumatic EYES: Normal reaction of pupils, equal size. NOSE: Clear with pink turbinates. THROAT: No erythema or exudates. NECK: No masses, no JVD. CHEST: No chest wall deformity. remote appearing sternotomy incsion. LUNGS: Equal air entry with no crackles, wheeze, rhonchi or dullness. No conversational dyspnea or accessory muscle use.. CVS: S1 and S2 normal with no audible murmur, regularly irregular rhythm. No extra heart sounds ABDOMEN: Obese abdomen, bowel hepatosplenomegaly, active bowel sounds, no guarding or rigidity. SPINE: No scoliosis or deformity SKIN: Chronic venous stasis changes to the bilateral lower extremities CENTRAL NERVOUS SYSTEM: No focal deficits, tone is normal in all 4 extremities. EXTREMITIES: There is 1+ bilateral lower extremity edema. No clubbing, or cyanosis. Peripheral pulses are weak throughout. Extremities are warm. - Labs CBC & Chem 7: 12/07/23 09:03 12/08/23 07:15 Labs: Abnormal Lab Results - Last 24 Hours (Table) 12/08/23 12/08/23 12/08/23 Range/Units 11:31 15:09 16:34 POC Glucose (mg/dL) 176 H 168 H 346 H (70-110) mg/dL 12/08/23 12/09/23 Range/Units 20:30 05:51 POC Glucose (mg/dL) 312 H 162 H (70-110) mg/dL Assessment and Plan Plan: Acute hypoxemic respiratory failure, likely secondary to an exacerbation of systolic congestive heart failure, chest CTA demonstrates cardiomegaly, pulmonary vascular congestion, and small bilateral pleural effusions, left greater than right. No focal consolidations or evidence of pneumonia. NT proBNP also elevated at 4330. The presentation is typical of CHF. They EKG showing first-degree AV block with premature ventricular beats that are quite frequent. No issues with atrial fibrillation at this point in time. The patient has responded very nicely diuretics and the patient is currently on room air oxygen. Clinically feeling better. Repeat echocardiogram showed mildly reduced LV function and normal functioning of the bio prosthetic aortic valve. The patient remains on IV Lasix Acute CHF and the patient has mild impairment of LV function with ejection fraction of 40-45% based on an echocardiogram that was done following his percutaneous transcatheter aortic valve replacement. No significant paravalvular leaks at that time. The repeat echocardiogram showed stable findings Shortness of breath, secondary to above, improving Pseudoaneurysm of the right radial artery, likely a postprocedure complication History of severe aortic valve stenosis, status post transcatheter aortic valve replacement on November 30 Mildly elevated troponins, possibly related to recent cardiac procedure. 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
--- NOTE | 2023-12-09 15:00 | P.PN ---
Subjective Progress Note Date: 12/09/23 Consult reason: congestive heart failure History of present illness: History of present illness: This is a 78 year old male with past medical history of hypertension, hyperlipidemia, diabetes mellitus type 2, coronary artery disease status post CABG 5 vessel in 2015, atherectomy left lower leg, severe aortic stenosis, PAD, benign prostatic hypertrophy, multiple falls, history of subdural hematoma, dementia, atrial fibrillation, history of non-ST elevated AR, congestive heart failure and ischemic cardiomyopathy with recent drop in EF down to 3540 p ercent. Patient was recently hospitalized on November 30 discharged on December 01 status post TAVR. We have been asked to evaluate the patient for heart failure. Patient has underlying dementia but states his daughter brought him into the hospital because he was short of breath. EKG sinus rhythm with first-degree A-V block, left bundle branch block which appears to be more prolonged since last EKG, PVCs Chest x-ray: Low lung volumes with generalized hazy appearance which could represent atelectasis versus pulmonary edema. CTA of the chest reveals no pulmonary embolism. Limited evaluation of segmental and subsegmental branches. Cardiac megaly with pulmonary vascular congestion. Mildly enlarged lymph nodes in the upper abdomen and mediastinum stable. 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 Limited echocardiogram reveals technically difficult study with suboptimal acoustic windows. Apical akinesis with mildly reduced LV systolic function. A bioprosthetic valve stable without any obvious paravalvular leak and acceptable gradients. EF 45-50%. WBC 9, hemoglobin 13, platelet count 163. Sodium 138, potassium 4.2, BUN 35 cr eatinine 1.41. Troponin 0.072, 0.065, 0.057. ProBNP 4330. Influenza A, influenza B, RSV, Covid 19 no detected. Home cardiac medications: Amlodipine 5 mg daily, eliquis 5 mg twice daily, Lipitor 80 mg at bedtime, Lasix 40 mg daily, lisinopril 2.5 mg daily,Jardiance 10 milligrams daily. 12/07 Blood pressure 133/67, heart rate in the 50s to 70s. WBC 9.3, hemoglobin 12.4. Sodium 137, potassium 4.2, chloride 109, CO2 16. BUN 42 creatinine 1.45. Blood sugar 314. Venous Doppler ordered yesterday revealed a pseudoaneurysm measuring up to 1.3 cm at the neck and measuring up to a totality of 1.8 x 1.3 cm x 1.2. Consult was added for vascular surgery. Patient may require surgery. Eliquis placed on hold 12/08 Patient is seen today in follow-up. He is noted to have less edema in the left arm. He is going today for left radial artery pseudoaneurysm repair. No plan for pacemaker insertion at this time. He continues to have lower extremity edema. Blood pressure readings have been elevated 180/77, heart rate is in the 60s and 70s. Repeat blood work reveals sodium 139, potassium 4.6, CO2 21, BUN 42, creatinine 1.43. 12/09 Patient states he doesn't feel good today and left forearm is hurting. Yesterday, patient underwent thrombin injection by IR in the proximal radial artery pseudoaneurysm. Patient denies having any chest pain. Heart rate is in the 50s to 70s, blood pressure 120/63, pulse ox 98% on room air. Telemetry is a sinus rhythm. No repeat blood work today. Patient has been maintained on IV Lasix 40 mg every 12 hours. Lisinopril was increased yesterday with better blood pressure control. Eliquis has been resumed. Physical examination: Gen: This is a 78-year-old male sitting in the chair in no acute distress. VS: reviewed HEENT: Head is atraumatic, normocephalic. Pupils equal, round. Sclerae is anicteric. NECK: Supple. No JVD. LUNGS: Clear to auscultation. No wheezes or rhonchi. No intercostal retractions. HEART: Irregular rate and rhythm. No murmur. EXTREMITIES: 1+ pedal edema. No calf tenderness. Swelling and bruising to the left upper extremity is improving. NEUROLOGICAL: Patient is awake, alert. Assessment: Acute on chronic systolic heart failure, bradycardia induced Acute on chronic hypoxic respiratory failure History of severe aortic valve stenosis status post transcatheter aortic valve replacement on 11/30/2023 Flat troponins that are most likely due to CHF/acute kidney injury/recent TAVR Left bundle branch block, widened since last EKG Acute kidney injury Hypertension Hyperlipidemia Coronary artery disease that is post 5 vessel CABG PAD Paroxysmal atrial fibrillation Ischemic cardiomyopathy Pseudoaneurysm left upper extremity Plan: Continue patient's home cardiac medications Continue Lasix 40 mg IV every 12 hours Monitor I&O, daily weights, electrolytes and renal function Avoid all AV nehemiah blocking agents due to history of Wenckebach high-grade first-degree block Eliquis has been resumed Patient will have outpatient evaluation for pacemaker need Would optimize heart failure medications Nurse practitioner note has been reviewed, I agree with documented findings and plan of care. Patient was seen and examined. Objective - Vital Signs Vital signs: Vital Signs Temp 97.8 F 12/08/23 16:00 Pulse 70 12/09/23 04:00 Resp 20 12/09/23 04:00 BP 148/64 12/09/23 04:00 Pulse Ox 99 12/09/23 04:00 FiO2 Intake & Output 12/08/23 12/09/23 12/09/23 18:59 06:59 18:59 Intake Total 120 240 Output Total 575 Balance 120 -335 Intake: Oral 120 240 Output: Urine 575 Other: Voiding Method Toilet Toilet Urinal Urinal # Voids 3 1 - Labs CBC & Chem 7: 12/07/23 09:03 12/08/23 07:15 Labs: Abnormal Lab Results - Last 24 Hours (Table) 12/08/23 12/08/23 12/08/23 Range/Units 11:31 15:09 16:34 POC Glucose (mg/dL) 176 H 168 H 346 H (70-110) mg/dL 12/08/23 12/09/23 Range/Units 20:30 05:51 POC Glucose (mg/dL) 312 H 162 H (70-110) mg/dL
[2023-12-09 16:04] LABS: Glucose,Whole Blood 339 mg/dL (70-110)
--- NOTE | 2023-12-09 16:48 | P.PN ---
Subjective Progress Note Date: 12/09/23 No new complaints. pseudoaneursym has thrombosed, no need for repair Gen: in no apparent distress, resting comfortably in bed Eyes: PERRL, no scleral injection or icterus HENT: normocephalic, atraumatic, good hearing acuity, moist mucous membranes Neck: no tracheal deviation, full range of motion Resp: good air exchange, breathing comfortably with no accessory muscle use, no tactile fremitus CVS: good distal perfusion x 4, no pitting edema GI: soft, NTTP, ND, no hepatosplenomegaly : no suprapubic tenderness, no CVAT, mora catheter not present MSK: no clubbing, no cyanosis, no noted contractures of extremities Skin: no noted rashes, petechiae; temperature of skin is appropriate Neuro: moving all extremities without signs of weakness, CN II-XII intact Psych: cooperative, euthymic mood, insight and judgment intact Hospital course: 78-year-old male with an extensive PMH including systolic CHF, CAD status post CABG, status post TAVR, type II DM, dementia, hypertension, hyperlipidemia, BPH, and A. fib who presents to the emergency room with complaints of shortness of breath. Patient had TAVR on 11/30/23 and was discharged home on 12/01. Chest CTA revealed cardiomegaly with vascular congestion with enlarged mediastinal and upper abdomen lymph nodes suspected reactive. EKG reveals sinus rhythm with first-degree AV block with PVCs at 61 bpm with a left bundle branch block (not present on prior EKGs). Laboratory evaluation was remarkable for troponin 0.072, proBNP 4330, lactic acid 1.6, with respiratory viral panel negative. Vital signs within normal limits. Requiring 2 L oxygen via nasal cannula. CHF exacerbation. Both pulmonology and cardiology consulted. Lower extremity Dopplers did not show any DVT. Renal ultrasound did not show any evidence of obstructive uropathy. Echocardiogram shows LVEF 45-50%, apical akinesis, bioprosthetic valva stable. Assessment and Plan: Active: Acute systolic CHF exacerbation Acute hypoxic respiratory failure NSTEMI, non-ischemic Aortic valve stenosis Status post recent TAVR -Continue IV Lasix 40 twice a day, monitor urine output and electrolytes -Cardiology and pulmonology following -Continue Eliquis 5 twice a day Left radial pseudoaneurysm -Vascular surgery consulted Nonoliguric acute kidney injury, stable BPH -Continue Flomax 0.4 -Hold oxybutynin -Continue lisinopril for now, as it is very small dose -Repeat BMP tomorrow Hypertension -Continue amlodipine 5 -Continue lisinopril 2.5 daily -Also nitroglycerin topical Type 2 diabetes -Home Lantus 56 units restarted -Sliding scale insulin, monitor for hypoglycemia Left foot ulcer, present on admission -Wound care consult Chronic: History of dementia DVT ppx: Eliquis Code status: Full code Anticipated discharge place: Pending clinical course Anticipated discharge time: pending clinical course Objective - Vital Signs Vital signs: Vital Signs Temp 99 F 12/09/23 12:00 Pulse 52 L 12/09/23 12:00 Resp 18 12/09/23 12:00 BP 120/63 12/09/23 12:00 Pulse Ox 98 12/09/23 12:00 FiO2 Intake & Output 12/08/23 12/09/23 12/09/23 18:59 06:59 18:59 Intake Total 120 240 243 Output Total 575 Balance 120 -335 243 Weight 89 kg Intake: Oral 120 240 243 Output: Urine 575 Other: Voiding Method Toilet Toilet Toilet Urinal Urinal Urinal # Voids 3 1 - Labs CBC & Chem 7: 12/07/23 09:03 12/08/23 07:15 Labs: Abnormal Lab Results - Last 24 Hours (Table) 12/08/23 12/09/23 12/09/23 Range/Units 20:30 05:51 11:22 POC Glucose (mg/dL) 312 H 162 H 216 H (70-110) mg/dL 12/09/23 Range/Units 16:01 POC Glucose (mg/dL) 339 H (70-110) mg/dL
[2023-12-09 20:12] LABS: Glucose,Whole Blood 265 mg/dL (70-110)
[2023-12-09] MEDS: ATORVASTATIN 80 MG TAB PO SCH (20:20)
[2023-12-09] MEDS: DONEPEZIL 10 MG TAB PO SCH (20:20)
[2023-12-09] MEDS: CHOLECALCIFEROL 125 MCG (5000 IU) TABLET PO SCH (20:20)
[2023-12-09] MEDS: AMITRIPTYLINE HCL 25 MG TAB PO SCH (20:20)
[2023-12-09] MEDS: NITROGLYCERIN OINT 1 INCH/GM PACKET TOPICAL SCH (22:55)
[2023-12-10 06:09] LABS: Glucose,Whole Blood 240 mg/dL (70-110)
[2023-12-10] MEDS: INSULIN ASPART (NovoLOG) 100 UNIT/ML VIAL SQ SCH ×3 (06:43→16:55)
[2023-12-10] MEDS ORDERED: LIDOCAINE 1% (10MG/ML) FOR IV START INTRADERMA PRN (06:59)
[2023-12-10] MEDS ORDERED: HYDROmorphone 0.5 MG/0.5 ML SYRINGE IVP PRN (06:59)
[2023-12-10] MEDS ORDERED: LACTATED RINGERS 1,000 ML IV SCH (06:59)
[2023-12-10] MEDS ORDERED: DEXAMETHASONE SOD PHOSPHATE 4 MG/ML 1 ML VIAL IV ONE (06:59)
[2023-12-10 08:32] LABS: African American GFR (CKD) 46 (>60 ml/min/1.73 sqM); Anion Gap 8 mmol/L; Blood Urea Nitrogen 51 mg/dL (9-20); Calcium 8.2 mg/dL (8.4-10.2); Carbon Dioxide 21 mmol/L (22-30); Chloride 108 mmol/L (98-107); Glucose 209 mg/dL (74-99); Non-African American GFR(CKD) 40 (>60 ml/min/1.73 sqM); Potassium 4.8 mmol/L (3.5-5.1); Sodium 137 mmol/L (137-145)
[2023-12-10] MEDS: FUROSEMIDE 10 MG/ML 4 ML VIAL IV SCH (09:07)
[2023-12-10] MEDS: TAMSULOSIN 0.4 MG CAP.ER.24H PO SCH (09:07)
[2023-12-10] MEDS: amLODIPine 5 MG TAB PO SCH (09:07)
[2023-12-10] MEDS: lisinopriL 10 MG TAB PO SCH (09:07)
[2023-12-10] MEDS: APIXABAN 5 MG TAB PO SCH (09:07)
[2023-12-10] MEDS ORDERED: ACETAMINOPHEN TAB 325 MG TAB PO PRN (09:10)
[2023-12-10 09:18] VITALS: TEMP 97.8
--- NOTE | 2023-12-10 10:58 | P.DS ---
Providers Date of admission: 12/05/23 19:40 Expected date of discharge: 12/10/23 Attending physician: Wyatt Mathis MD Consults: 12/05/23 19:36 Consult Physician Routine Consulting Provider: Rober Cheatham Consult Reason/Comments: copd Do you want consulting provider notified?: Yes Consult Physician Routine Consulting Provider: Torrey Almodovar Consult Reason/Comments: chf Do you want consulting provider notified?: Yes Primary care physician: Valente [facility] Course: Acute systolic CHF exacerbation Acute hypoxic respiratory failure NSTEMI, non-ischemic Aortic valve stenosis Status post recent TAVR Left radial pseudoaneurysm Nonoliguric acute kidney injury, stable BPH Hypertension Type 2 diabetes Left foot ulcer, present on admission History of dementia Gen: in no apparent distress, resting comfortably in bed Eyes: PERRL, no scleral injection or icterus HENT: normocephalic, atraumatic, good hearing acuity, moist mucous membranes Neck: no tracheal deviation, full range of motion Resp: good air exchange, breathing comfortably with no accessory muscle use, no tactile fremitus CVS: good distal perfusion x 4, no pitting edema GI: soft, NTTP, ND, no hepatosplenomegaly : no suprapubic tenderness, no CVAT, mora catheter not present MSK: no clubbing, no cyanosis, no noted contractures of extremities Skin: no noted rashes, petechiae; temperature of skin is appropriate Neuro: moving all extremities without signs of weakness, CN II-XII intact Psych: cooperative, euthymic mood, insight and judgment intact Hospital course: 78-year-old male with an extensive PMH including systolic CHF, CAD status post CABG, status post TAVR, type II DM, dementia, hypertension, hyperlipidemia, BPH, and A. fib who presents to the emergency room with complaints of shortness of breath. Patient had TAVR on 11/30/23 and was discharged home on 12/01. Chest CTA revealed cardiomegaly with vascular congestion with enlarged mediastinal and upper abdomen lymph nodes suspected reactive. EKG reveals sinus rhythm with first-degree AV block with PVCs at 61 bpm with a left bundle branch block (not present on prior EKGs). Laboratory evaluation was remarkable for troponin 0.0 72, proBNP 4330, lactic acid 1.6, with respiratory viral panel negative. Vital signs within normal limits. Requiring 2 L oxygen via nasal cannula. CHF exacerbation. Both pulmonology and cardiology consulted. Lower extremity Dopplers did not show any DVT. Renal ultrasound did not show any evidence of obstructive uropathy. Echocardiogram shows LVEF 45-50%, apical akinesis, bioprosthetic valves stable. Pt improved with IV diuretics back to baseline. On his left radial access site for his TAVR, he was noted to have pain and swelling, and arterial duplex noted pseudoaneurysm. Vascular surgery was consulted for this and had considered operative repair, but follow up arterial duplex noted thrombosis of the pseudoaneurysm and surgery was cancelled. Cardiology also noted that patient should avoid all AV nehemiah blocking agents due to hx of high grade AV block and should be evaluated for ICD placement in the outpatient setting. Pt will be d/c'd home with instructions to f/u with PCP, cardiology, and nephrology. I spent 40 minutes coordinating this discharge on 12/10 Patient Condition at Discharge: Good Plan - Discharge Summary Discharge Rx Participant: No New Discharge Prescriptions: New lisinopriL [Zestril] 10 mg PO DAILY #30 tab Continue Omeprazole [PriLOSEC] 20 mg PO DAILY Donepezil [Aricept] 10 mg PO HS #30 Tamsulosin HCl [Flomax] 0.4 mg PO DAILY Insulin Aspart [NovoLOG Flexpen] See Protocol SQ BID-W/MEALS Insulin Glargine,Hum.rec.anlog [Lantus Solostar Pen] 56 unit SQ W/LUNCH amLODIPine [Norvasc] 5 mg PO DAILY Fluticasone Nasal Toivola [Flonase Nasal Toivola] 2 spr EA NOSTRIL DAILY PRN PRN Reason: Nasal Congestion Cholecalciferol [Vitamin D3 (125 Mcg = 5000 Iu)] 125 mcg PO HS Furosemide [Lasix] 40 mg PO DAILY Atorvastatin [Lipitor] 80 mg PO HS Empagliflozin [Jardiance] 10 mg PO DAILY Acetaminophen Tab [Tylenol] 650 mg PO Q4HR PRN tab PRN Reason: Fever And/ Or Mild Pain (1-3) Potassium Chloride ER [K-Dur 10] 10 meq PO HS Amitriptyline HCl [Elavil] 25 mg PO HS Albuterol Nebulized [Ventolin Nebulized] 2.5 mg INHALATION RT-QID PRN PRN Reason: Shortness Of Breath Apixaban [Eliquis] 5 mg PO DIRECTED Discontinued Semaglutide [Rybelsus] 3 mg PO DAILY Oxybutynin Chloride [oxyBUTYnin chloride ER] 10 mg PO DAILY lisinopriL [Zestril] 2.5 mg PO DAILY Discharge Medication List Omeprazole [PriLOSEC] 20 mg PO DAILY 02/23/15 [History] Donepezil [Aricept] 10 mg PO HS #30 03/13/15 [Rx] Tamsulosin HCl [Flomax] 0.4 mg PO DAILY 03/07/17 [History] Insulin Aspart [NovoLOG Flexpen] See Protocol SQ BID-W/MEALS 11/08/19 [History] Amitriptyline HCl [Elavil] 25 mg PO HS 03/16/22 [History] Potassium Chloride ER [K-Dur 10] 10 meq PO HS 03/16/22 [History] Insulin Glargine,Hum.rec.anlog [Lantus Solostar Pen] 56 unit SQ W/LUNCH 04/05/22 [History] amLODIPine [Norvasc] 5 mg PO DAILY 02/21/23 [History] Albuterol Nebulized [Ventolin Nebulized] 2.5 mg INHALATION RT-QID PRN 04/16/23 [History] Fluticasone Nasal Toivola [Flonase Nasal Toivola] 2 spr EA NOSTRIL DAILY PRN 04/16/23 [History] Atorvastatin [Lipitor] 80 mg PO HS 05/11/23 [History] Cholecalciferol [Vitamin D3 (125 Mcg = 5000 Iu)] 125 mcg PO HS 05/11/23 [History] Furosemide [Lasix] 40 mg PO DAILY 05/11/23 [History] Empagliflozin [Jardiance] 10 mg PO DAILY 11/23/23 [History] Acetaminophen Tab [Tylenol] 650 mg PO Q4HR PRN tab 12/01/23 [Rx] Apixaban [Eliquis] 5 mg PO DIRECTED 12/05/23 [History] lisinopriL [Zestril] 10 mg PO DAILY #30 tab 12/10/23 [Rx] Follow up Appointment(s)/Referral(s): Vernon Escalona MD [Medical Doctor] - 1 Week (Please call Tuesday to schedule follow up) Valente Sharma MD [Primary Care Provider] - 1-2 days (Please call Tuesday to schedule follow up. ) [facility] Visiting Nurse, [NON-STAFF] - Patient Instructions/Handouts: Heart Failure (IP) Discharge Disposition: HOME WITH HOME HEALTH SERVICES
[2023-12-10 11:47] LABS: Glucose,Whole Blood 293 mg/dL (70-110)
[2023-12-10] MEDS: INSULIN DETEMIR (LEVEMIR) 100 UNIT/ML SYR SQ SCH (11:59)
--- NOTE | 2023-12-10 12:37 | P.PN ---
Subjective Progress Note Date: 12/10/23 78-year-old male patient was being seen in the emergency department for worsening shortness of breath. The patient is known to have an extensive cardiac history. He is known to have coronary artery disease and he has undergone also previous bypass surgery. He also has history of aortic stenosis and he has undergone a percutaneous transcatheter aortic valve replacement and this was done without any complications. The procedure was done in November 2023. Follow-up echocardiogram that was done following the procedure showed moderate LV systolic dysfunction with an ejection fraction of 45-50%. Moderate concentric left ventricular hypertrophy. Mild pulmonary hypertension. The BiPAP or static aortic valve showed some mild regurgitation. Otherwise, he had a normal function. He also had mild aortic dilatation measuring up to 39 mm in size. The patient presented with worsening shortness of breath and lower extremity edema and his chest x-ray showed pulmonary vessel congestion and cardiomegaly and small left-sided pleural effusion. CAT scan of the chest was also done that showed no evidence of any pulmonary embolism. It showed cardiomegaly and pulmonary vascular congestion. He also had mild enlarged lymph nodes. Overnight, the patient was started on diuretics. His renal function is being monitored. Clinically is feeling better. ProBNP was 4330. There was also a troponin leak with a troponin maximum 0.07. The viral panel was negative. Other pertinent medical history includes coronary artery disease with previous CABG, diabetes mellitus, hyperlipidemia, hypertension, peripheral vascular disease, BPH, among other things. Denies any history of COPD or asthma. Denies ever being a tobacco smoker. Patient himself is technically a poor historian. He may have history of dementia, takes Aricept at home. He states he came to the hospital because his daughter brought him in. Apparently, the patient has been experiencing several days of ongoing shortness of breath, weakness, and lower extremity swelling. Admits orthopnea and sleeps with 3 pillows at night. Denies any chest pain, heart palpitations, syncopal events. Denies any infectious symptoms such as fever, cough, chest pain, hemoptysis. Chest CTA on arrival did not show any evidence of large central pulmonary embolism. There was cardiomegaly with pulmonary vascular congestion and bilateral pleural effusions left greater than right. There was also some mildly enlarged lymph nodes in the upper abdomen and mediastinum which were stable from previous exam and likely reactive. NT proBNP also elevated at 4330, supporting evidence of CHF. Patient is currently sitting up in the bedside recliner, on 2 L/m nasal cannula, not in any distress at rest. ECG on arrival showed a sinus rhythm with bigeminal unifocal PVCs. CBC on arrival unremarkable. No evidence of leukocytosis. BMP on arrival: Sodium 137, potassium 4.6, chloride 109, serum 6 bicarb 18, BUN 31, creatinine 1.1, glucose 135. Lactic acid level I.6. Troponins mildly elevated at 0.072 and 0.065. Negative for influenza, RSV, COVID-19. Afebrile. Vital signs are stable. On 12/07/2023, seeing the patient for a follow-up. Is feeling better blood short of breath compared to yesterday. He was hospitalized for CHF and fluid overload. The patient was subjected IV Lasix 40 mg IV every 12 hours. Is currently on room air oxygen. No reported chest pain. A limited echocardiogram was done and the patient was found to have mildly reduced LV function. The bioprosthetic aortic valve was functional and there was no evidence of any par avalvular leak. Meanwhile, Doppler of the lower extremity was also done and the patient was found to have pseudoaneurysm of 1.3 cm at the neck and he was measuring around 1.8 x 1.3 x 1.2 cm in size and this is in the right radial artery. There was no evidence of any DVT. The patient is obviously cause of 9.3, hemoglobin was 12.4, BUN is at 42 with a creatinine 1.45 and sodium levels of 137. He does have some limited troponin leak. ProBNP level was 4330 the time of admission. On 12/08/2023, the patient remains on Lasix 40 mg IV every 12 hours. Progressively improving and the patient has been producing adequate amount of urine output. Fluid balance has been negative. BUN is at 40 with a creatinine of 1.4 and the patient's sodium level is at 139. Patient is currently on room air oxygen with a pulse ox 99%. His resting comfortably in bed. Is able to lay down flat. On 12/09/2023, the patient is doing well. Patient was diabetes adequate and the patient continues to be on Lasix 40 mg IV every 12 hours. Edema lower extremity improving. On today's evaluation, the patient is on room air oxygen. No significant chest pain or shortness of breath. The fluid balance remains nega tive, and the labs from yesterday shows a creatinine of 1.4 with a BUN of 42 and a sodium level is at 139. 12/10/2023, the patient is sitting up on a chair and is, comfortable. Denies having any specific complaints. Remains on IV Lasix. The overall fluid balance has been negative and the patient has no specific complaints. Blood work from today shows a BUN of 50 with a creatinine of 1.6 and a creatinine is slightly higher compared to yesterday. Sodium levels of 137 with a potassium level of 4.8. Objective - Vital Signs Vital signs: Vital Signs Temp 97.8 F 12/10/23 09:02 Pulse 54 L 12/10/23 09:02 Resp 16 12/10/23 09:02 BP 144/66 12/10/23 09:02 Pulse Ox 97 12/10/23 09:02 FiO2 Intake & Output 12/09/23 12/10/23 12/10/23 18:59 06:59 18:59 Intake Total 1185 10 Balance 1185 10 Weight 98.6 kg Intake: IV 10 Invasive Line 2 10 Oral 1185 Other: Voiding Method Toilet Toilet Urinal Urinal # Voids 1 - Exam GENERAL EXAM: Alert, 78-year-old obese white male, sitting up in the bedside recliner, comfortable in no apparent distress at rest. The patient is currently on room air oxygen. HEAD: Normocephalic and atraumatic EYES: Normal reaction of pupils, equal size. NOSE: Clear with pink turbinates. THROAT: No erythema or exudates. NECK: No masses, no JVD. CHEST: No chest wall deformity. remote appearing sternotomy incsion. LUNGS: Equal air entry with no crackles, wheeze, rhonchi or dullness. No conversational dyspnea or accessory muscle use.. CVS: S1 and S2 normal with no audible murmur, regularly irregular rhythm. No extra heart sounds ABDOMEN: Obese abdomen, bowel hepatosplenomegaly, active bowel sounds, no guarding or rigidity. SPINE: No scoliosis or deformity SKIN: Chronic venous stasis changes to the bilateral lower extremities CENTRAL NERVOUS SYSTEM: No focal deficits, tone is normal in all 4 extremities. EXTREMITIES: There is 1+ bilateral lower extremity edema. No clubbing, or cyanosis. Peripheral pulses are weak throughout. Extremities are warm. - Labs CBC & Chem 7: 12/07/23 09:03 12/10/23 07:55 Labs: Abnormal Lab Results - Last 24 Hours (Table) 12/09/23 12/09/23 12/09/23 Range/Units 11:22 16:01 20:10 Chloride (98-107) mmol/L Carbon Dioxide (22-30) mmol/L BUN (9-20) mg/dL Creatinine (0.66-1.25) mg/dL Glucose (74-99) mg/dL POC Glucose (mg/dL) 216 H 339 H 265 H (70-110) mg/dL Calcium (8.4-10.2) mg/dL 12/10/23 12/10/23 Range/Units 06:07 07:55 Chloride 108 H (98-107) mmol/L Carbon Dioxide 21 L (22-30) mmol/L BUN 51 H (9-20) mg/dL Creatinine 1.65 H (0.66-1.25) mg/dL Glucose 209 H (74-99) mg/dL POC Glucose (mg/dL) 240 H (70-110) mg/dL Calcium 8.2 L (8.4-10.2) mg/dL Assessment and Plan Plan: Acute hypoxemic respiratory failure, likely secondary to an exacerbation of systolic congestive heart failure, chest CTA demonstrates cardiomegaly, pulmonary vascular congestion, and small bilateral pleural effusions, left greater than right. No focal consolidations or evidence of pneumonia. NT proBNP also elevated at 4330. The presentation is typical of CHF. They EKG showing first-degree AV block with premature ventricular beats that are quite frequent. No issues with atrial fibrillation at this point in time. The patient has responded very nicely diuretics and the patient is currently on room air oxygen. Clinically feeling better. Repeat echocardiogram showed mildly reduced LV function and normal functioning of the bio prosthetic aortic valve. The patient remains on IV Lasix Acute CHF and the patient has mild impairment of LV function with ejection fraction of 40-45% based on an echocardiogram that was done following his percutaneous transcatheter aortic valve replacement. No significant paravalvular leaks at that time. The repeat echocardiogram showed stable findings Shortness of breath, secondary to above, improving Pseudoaneurysm of the right radial artery, likely a postprocedure complication History of severe aortic valve stenosis, status post transcatheter aortic valve replacement on November 30 Mildly elevated troponins, possibly related to recent cardiac procedure. Bigeminal PVCs, with a first-degree AV block Coronary artery disease, with history of CABG Diabetes mellitus type 2, insulin-dependent History of hyperlipidemia History of hypertension History of peripheral vascular disease History of atrial fibrillation History of benign prostatic hyperplasia Lifelong non-smoker Plan: Clinically stable and continues to improve Patient is currently on room air oxygen continue Lasix 40 mg by mouth twice a day and discontinue the IV Lasix Renal function stable , creatinine is slightly higher compared to yesterday Repeat echocardiogram was noted no disruption in the aortic valve function and the patient is a adequately functioning BiPAP or static aortic valve Wean down FiO2 as tolerated to maintain a saturation above 90%, currently on room air oxygen Continue anticoagulation with Eliquis Continue Zestril 2.5 mg by mouth daily Continue Norvasc 5 mg by mouth daily We'll continue to follow make further recommendations based on his progress.
[2023-12-10] MEDS ORDERED: FUROSEMIDE 40 MG TAB PO SCH (16:00)
[2023-12-10 16:07] VITALS: BP 140/64; PULSE 58; RESP 18
[2023-12-10 16:48] LABS: Glucose,Whole Blood 252 mg/dL (70-110)
--- NOTE | 2023-12-10 19:00 | P.PN ---
Subjective Progress Note Date: 12/10/23 History of present illness: This is a 78 year old male with past medical history of hypertension, hyperlip idemia, diabetes mellitus type 2, coronary artery disease status post CABG 5 vessel in 2015, atherectomy left lower leg, severe aortic stenosis, PAD, benign prostatic hypertrophy, multiple falls, history of subdural hematoma, dementia, atrial fibrillation, history of non-ST elevated [place], congestive heart failure and ischemic cardiomyopathy with recent drop in EF down to 3540 percent. Patient was recently hospitalized on November 30 discharged on December 01 status post TAVR. We have been asked to evaluate the patient for heart failure. Patient has underlying dementia but states his daughter brought him into the hospital because he was short of breath. EKG sinus rhythm with first-degree A-V block, left bundle branch block which appears to be more prolonged since last EKG, PVCs Chest x-ray: Low lung volumes with generalized hazy appearance which could represent atelectasis versus pulmonary edema. CTA of the chest reveals no pulmonary embolism. Limited evaluation of segmental and subsegmental branches. Cardiac megaly with pulmonary vascular congestion. Mildly enlarged lymph nodes in the upper abdomen and mediastinum stable. 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 Limited echocardiogram reveals technically difficult study with suboptimal acoustic windows. Apical akinesis with mildly reduced LV systolic function. A bioprosthetic valve stable without any obvious paravalvular leak and acceptable gradients. EF 45-50%. WBC 9, hemoglobin 13, platelet count 163. Sodium 138, potassium 4.2, BUN 35 creatinine 1.41. Troponin 0.072, 0.065, 0.057. ProBNP 4330. Influenza A, influenza B, RSV, Covid 19 no detected. Home cardiac medications: Amlodipine 5 mg daily, eliquis 5 mg twice daily, Lipitor 80 mg at bedtime, Lasix 40 mg daily, lisinopril 2.5 mg daily,Jardiance 10 milligrams daily. 12/07 Blood pressure 133/67, heart rate in the 50s to 70s. WBC 9.3, hemoglobin 12.4. Sodium 137, potassium 4.2, chloride 109, CO2 16. BUN 42 creatinine 1.45. Blood sugar 314. Venous Doppler ordered yesterday revealed a pseudoaneurysm measuring up to 1.3 cm at the neck and measuring up to a totality of 1.8 x 1.3 cm x 1.2. Consult was added for vascular surgery. Patient may require surgery. Eliquis placed on hold 12/08 Patient is seen today in follow-up. He is noted to have less edema in the left arm. He is going today for left radial artery pseudoaneurysm repair. No plan for pacemaker insertion at this time. He continues to have lower extremity edema. Blood pressure readings have been elevated 180/77, heart rate is in the 60s and 70s. Repeat blood work reveals sodium 139, potassium 4.6, CO2 21, BUN 42, creatinine 1.43. 12/09 Patient states he doesn't feel good today and left forearm is hurting. Yesterday, patient underwent thrombin injection by IR in the proximal radial artery pseudoaneurysm. Patient denies having any chest pain. Heart rate is in the 50s to 70s, blood pressure 120/63, pulse ox 98% on room air. Telemetry is a sinus rhythm. No repeat blood work today. Patient has been maintained on IV Lasix 40 mg every 12 hours. Lisinopril was increased yesterday with better blood pressure control. Eliquis has been resumed. 12/10 Patient reports being less short of breath. His noticing the swelling has improved and he has had good urine output with good response to IV diuretic therapy. His left forearm is less swollen and less painful as yesterday Physical examination: Gen: This is a 78-year-old male sitting in the chair in no acute distress. VS: reviewed HEENT: Head is atraumatic, normocephalic. Pupils equal, round. Sclerae is anicteric. NECK: Supple. No JVD. LUNGS: Clear to auscultation. No wheezes or rhonchi. No intercostal retractions. HEART: Irregular rate and rhythm. No murmur. EXTREMITIES: 1+ pedal edema. No calf tenderness. Swelling and bruising to the left upper extremity is improving. NEUROLOGICAL: Patient is awake, alert. Assessment: Acute on chronic systolic heart failure, bradycardia induced Acute on chronic hypoxic respiratory failure History of severe aortic valve stenosis status post transcatheter aortic valve replacement on 11/30/2023 Flat troponins that are most likely due to CHF/acute kidney injury/recent TAVR Left bundle branch block, widened since last EKG Acute kidney injury Hypertension Hyperlipidemia Coronary artery disease that is post 5 vessel CABG PAD Paroxysmal atrial fibrillation Ischemic cardiomyopathy Pseudoaneurysm left upper extremity Plan: Continue patient's home cardiac medications Continue Lasix 40 mg IV every 12 hours. Transition to by mouth tomorrow. We would prefer to be on Bumex Avoid all AV nehemiah blocking agents due to history of Wenckebach high-grade first-degree block Eliquis has been resumed Patient will have outpatient evaluation for pacemaker need Objective - Vital Signs Vital signs: Vital Signs Temp 97.8 F 12/10/23 09:02 Pulse 58 L 12/10/23 12:00 Resp 18 12/10/23 12:00 BP 140/64 12/10/23 12:00 Pulse Ox 98 12/10/23 12:00 FiO2 Intake & Output 12/09/23 12/10/23 12/10/23 18:59 06:59 18:59 Intake Total 1185 490 Output Total 0 Balance 1185 490 Weight 98.6 kg Intake: IV 10 Invasive Line 2 10 Oral 1185 480 Output: Gastric Drainage 0 Urine 0 Stool 0 Urine/Stool Mix 0 Emesis 0 Oral Regurgitation 0 Other: Voiding Method Toilet Toilet Urinal Urinal # Voids 1 0 # Bowel Movements 0 - Labs CBC & Chem 7: 12/07/23 09:03 12/10/23 07:55 Labs: Abnormal Lab Results - Last 24 Hours (Table) 12/09/23 12/10/23 12/10/23 Range/Units 20:10 06:07 07:55 Chloride 108 H (98-107) mmol/L Carbon Dioxide 21 L (22-30) mmol/L BUN 51 H (9-20) mg/dL Creatinine 1.65 H (0.66-1.25) mg/dL Glucose 209 H (74-99) mg/dL POC Glucose (mg/dL) 265 H 240 H (70-110) mg/dL Calcium 8.2 L (8.4-10.2) mg/dL 12/10/23 12/10/23 Range/Units 11:46 16:46 Chloride (98-107) mmol/L Carbon Dioxide (22-30) mmol/L BUN (9-20) mg/dL Creatinine (0.66-1.25) mg/dL Glucose (74-99) mg/dL POC Glucose (mg/dL) 293 H 252 H (70-110) mg/dL Calcium (8.4-10.2) mg/dL
[2023-12-12] MEDS ORDERED: APIXABAN 5 MG TAB PO SCH (09:00)
== END 2023-12-10 17:44 | disposition home health service (06) | DRG 280 ==
LOC: EC 15:43 → 3SCARD 19:40
PROVIDERS: ADMIT Internal Medicine; ATTEND Internal Medicine
DX: I11.0 Hypertensive heart disease with heart failure (principal); I21.4 Non-ST elevation (NSTEMI) myocardial infarction; I50.23 Acute on chronic systolic (congestive) heart failure; J96.21 Acute and chronic respiratory failure with hypoxia; F03.93 Unspecified dementia, unspecified severity, with mood disturbance; F03.94 Unspecified dementia, unspecified severity, with anxiety; N17.9 Acute kidney failure, unspecified; I25.10 Atherosclerotic heart disease of native coronary artery without angina pectoris; E86.0 Dehydration; E11.40 Type 2 diabetes mellitus with diabetic neuropathy, unspecified; E11.51 Type 2 diabetes mellitus with diabetic peripheral angiopathy without gangrene; E11.621 Type 2 diabetes mellitus with foot ulcer; E78.5 Hyperlipidemia, unspecified; F32.A Depression, unspecified; I25.2 Old myocardial infarction; I25.5 Ischemic cardiomyopathy; I27.20 Pulmonary hypertension, unspecified; I35.0 Nonrheumatic aortic (valve) stenosis; I72.1 Aneurysm of artery of upper extremity; I77.819 Aortic ectasia, unspecified site; Z79.01 Long term (current) use of anticoagulants; L97.521 Non-pressure chronic ulcer of other part of left foot limited to breakdown of skin; Z95.1 Presence of aortocoronary bypass graft; Z95.3 Presence of xenogenic heart valve; I44.0 Atrioventricular block, first degree; I44.7 Left bundle-branch block, unspecified; N39.498 Other specified urinary incontinence; N40.1 Benign prostatic hyperplasia with lower urinary tract symptoms; R00.8 Other abnormalities of heart beat; I49.3 Ventricular premature depolarization; M54.9 Dorsalgia, unspecified; G89.29 Other chronic pain; I48.0 Paroxysmal atrial fibrillation; I87.8 Other specified disorders of veins; Z11.52 Encounter for screening for COVID-19; Z79.4 Long term (current) use of insulin; Z79.84 Long term (current) use of oral hypoglycemic drugs; Z79.899 Other long term (current) drug therapy; Z82.49 Family history of ischemic heart disease and other diseases of the circulatory system; Z86.16 Personal history of COVID-19
CPT/HCPCS: 36002; 36415; 71046; 71275; 76770; 80048; 80053; 83605; 83735; 83880; 84100; 84484; 85025; 85379; 85610; 85730; 87636; 93005; 93308; 93975; 96374; 96375; 96376; 99291

== ENCOUNTER 2023-12-23 11:21 | Inpatient (IN) | payer MEDICARE, BC ==
--- NOTE | 2023-12-23 11:43 | ED ---
General Adult HPI - General Chief complaint: Chest Pain Stated complaint: Chest Pain Time Seen by Provider: 12/23/23 11:30 Source: patient, family, RN notes reviewed, old records reviewed (Including previous admission. Including previous CT of chest) Mode of arrival: ambulatory Limitations: no limitations - History of Present Illness Initial comments: Patient is a pleasant 78-year-old male presenting to the emergency department with concerns with chest discomfort. Onset of symptoms was recently in the hospital with TAVR procedure. Patient states discomfort was only mild. Patient denies any dyspnea. Family states she has heard occasional cough. No leg pain or leg swelling. Patient feels somewhat tired. Patient is symptom-free at this time. - Related Data Home Medications Medication Instructions Recorded Confirmed Omeprazole [PriLOSEC] 20 mg PO DAILY 02/23/15 12/05/23 Tamsulosin HCl [Flomax] 0.4 mg PO DAILY 03/07/17 12/05/23 Insulin Aspart [NovoLOG Flexpen] See Protocol SQ BID-W/MEALS 11/08/19 12/05/23 Amitriptyline HCl [Elavil] 25 mg PO HS 03/16/22 12/05/23 Potassium Chloride ER [K-Dur 10] 10 meq PO HS 03/16/22 12/05/23 Insulin Glargine,Hum.rec.anlog 56 unit SQ W/LUNCH 04/05/22 12/05/23 [Lantus Solostar Pen] amLODIPine [Norvasc] 5 mg PO DAILY 02/21/23 12/05/23 Albuterol Nebulized [Ventolin 2.5 mg INHALATION RT-QID PRN 04/16/23 12/05/23 Nebulized] Fluticasone Nasal [place] [Flonase 2 spr EA NOSTRIL DAILY PRN 04/16/23 12/05/23 Nasal [place]] Atorvastatin [Lipitor] 80 mg PO HS 05/11/23 12/05/23 Cholecalciferol [Vitamin D3 (125 125 mcg PO HS 05/11/23 12/05/23 Mcg = 5000 Iu)] Furosemide [Lasix] 40 mg PO DAILY 05/11/23 12/05/23 Empagliflozin [Jardiance] 10 mg PO DAILY 11/23/23 12/05/23 Apixaban [Eliquis] 5 mg PO DIRECTED 12/05/23 12/05/23 Previous Rx's Medication Instructions Recorded Donepezil [Aricept] 10 mg PO HS #30 03/13/15 Acetaminophen Tab [Tylenol] 650 mg PO Q4HR PRN tab 12/01/23 lisinopriL [Zestril] 10 mg PO DAILY #30 tab 12/10/23 Allergies Allergy/AdvReac Type Severity Reaction Status Date / Time No Known Allergies Allergy Verified 12/23/23 11:27 Review of Systems ROS Statement: Those systems with pertinent positive or pertinent negative responses have been documented in the HPI. ROS Other: All systems not noted in ROS Statement are negative. Constitutional: Denies: fever Eyes: Denies: eye pain ENT: Denies: ear pain Respiratory: Reports: as per HPI. Denies: dyspnea Cardiovascular: Reports: as per HPI, chest pain Endocrine: Reports: fatigue Gastrointestinal: Denies: abdominal pain Genitourinary: Denies: dysuria Past Medical History Past Medical History: Coronary Artery Disease (CAD), Heart Failure, COPD, Dementia, Diabetes Mellitus, GERD/Reflux, Hyperlipidemia, Hypertension, Memory Impairment, Myocardial Infarction (VT), Neurologic Disorder, Osteoarthritis (OA), Pneumonia, Prostate Disorder, Vascular Disorder Additional Past Medical History / Comment(s): Hx falls and diarrhea/incontinence since diagnosed with Covid Oct 2022, daughter thinks he may have had a minor heart attack when he had Covid as well. 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 PAD. Enlarged prostate. Chronic back pain. Hx bronchitis. Sinus issues. Last Myocardial Infarction Date:: 2014 History of Any Multi-Drug Resistant Organisms: None Reported Past Surgical History: Coronary Bypass/CABG, Orthopedic Surgery Additional Past Surgical History / Comment(s): 2014 CABG 4 vessel/bioprosthetic aortic valve, angiograms, aortagram with bilateral run-offs, PTBA/atherectomy left leg, left foot surgery for crush injury, colonoscopy, bilateral cataract removals. TAVR Oct 2023. Past Anesthesia/Blood Transfusion Reactions: No Reported Reaction Past Psychological History: Anxiety, Depression Smoking Status: Never smoker Past Alcohol Use History: Heavy Past Drug Use History: None Reported - Past Family History Father History Unknown: Yes Family Medical History: Congestive Heart Failure (CHF) Mother History Unknown: Yes Family Medical History: Congestive Heart Failure (CHF) General Exam Limitations: no limitations General appearance: alert, in no apparent distress Head exam: Present: normocephalic Eye exam: Present: normal appearance Neck exam: Present: normal inspection Respiratory exam: Present: normal lung sounds bilaterally Cardiovascular Exam: Present: regular rate, normal rhythm Expanded Peripheral pulses: 2+: Radial (R), Radial (L), Dorsalis Pedis (R), Dorsalis Pedis (L) GI/Abdominal exam: Present: soft. Absent: tenderness Extremities exam: Present: normal inspection. Absent: pedal edema, calf tenderness Neurological exam: Present: alert Psychiatric exam: Present: normal affect, normal mood Skin exam: Present: normal color Course Vital Signs 12/23/23 12/23/23 11:25 13:35 Temperature 99.3 F Pulse Rate 82 82 Respiratory 18 18 Rate Blood Pressure 146/62 142/75 O2 Sat by Pulse 99 97 Oximetry EKG Findings - EKG Results: EKG: interpreted by [facility] (Left axis. LVH. Repolarization changes. First- degree AV block with a [place] of 317), sinus rhythm Medical Decision Making - Medical Decision Making Was pt. sent in by a medical professional or institution (, PA, ACCESS SERVICES REPRESENTATIVE, urgent care, hospital, or alf...) When possible be specific @ -No Did you speak to anyone other than the patient for history (EMS, parent, family, police, friend...)? What history was obtained from this source @ -Family is present and provides additional history including recent hospitalization and procedure Did you review nursing and triage notes (agree or disagree)? Why? @ -I reviewed and agree with nursing and triage notes Were old charts reviewed (outside hosp., previous admission, EMS record, old EKG, old radiological studies, urgent care reports/EKG's, alf records)? Report findings @ -Previous chest x-ray reviewed Differential Diagnosis (chest pain, altered mental status, abdominal pain women, abdominal pain men, vaginal bleeding, weakness, fever, dyspnea, syncope, headache, dizziness, GI bleed, back pain, seizure, CVA, palpatations, mental health, musculoskeletal)? @ -Differential Chest Pain: Stable Angina, Unstable Angina, STEMI, NSTEMI Aortic Dissection, Pneumothorax, Musculoskeletal, Esophageal Spasm GERD, Cholecystitis, Pancreatitis, Zoster, this is not meant to be an all-inclusive list. EKG interpreted by me (3pts min.). @ -As above X-rays interpreted by me (1pt min.). @ -Chest x-ray shows no acute process CT interpreted by me (1pt min.). @ -None done U/S interpreted by me (1pt. min.). @ -None done What testing was considered but not performed or refused? (CT, X-rays, U/S, labs)? Why? @ -None What meds were considered but not given or refused? Why? @ -None Did you discuss the management of the patient with other professionals (professionals i.e. , PA, ACCESS SERVICES REPRESENTATIVE, lab, RT, psych nurse, social insurance administrator, director facilities maintenance, teacher, special forces warrant officer, case folder)? Give summary @ -Case was discussed with Dr. Watkins, who will admit covering Dr. Sharma. He agrees with cardiology consult. He agrees no antibiotics at this time secondary to no source of infection. Was smoking cessation discussed for >3mins.? @ -No Was critical care preformed (if so, how long)? @ -No Were there social determinants of health that impacted care today? How? (Homelessness, low income, unemployed, alcoholism, drug addiction, transportation, low edu. Level, literacy, decrease access to med. care, senior living, rehab)? @ -No Was there de-escalation of care discussed even if they declined (Discuss DNR or withdrawal of care, Hospice)? DNR status @ -No What co-morbidities impacted this encounter? (DM, HTN, Smoking, COPD, CAD, Cancer, CVA, ARF, Chemo, Hep., AIDS, mental health diagnosis, sleep apnea, morbid obesity)? @ -None Was patient admitted / discharged? Hospital course, mention meds given and route, prescriptions, significant lab abnormalities, going to OR and other pertinent info. @ -Patient reevaluated and resting comfortably in bed. Patient symptom-free at this time. Patient is updated on results and plan. Undiagnosed new problem with uncertain prognosis? @ -No Drug Therapy requiring intensive monitoring for toxicity (Heparin, Nitro, Insulin, Cardizem)? @ -No Were any procedures done? @ -No Diagnosis/symptom? @ -Chest pain Acute, or Chronic, or Acute on Chronic? @ -Acute Uncomplicated (without systemic symptoms) or Complicated (systemic symptoms)? @ -Default Side effects of treatment? @ -No Exacerbation, Progression, or Severe Exacerbation? @ -No Poses a threat to life or bodily function? How? (Chest pain, [place], VT, pneumonia, PE, COPD, DKA, ARF, appy, cholecystitis, CVA, Diverticulitis, Homicidal, Suicidal, threat to staff... and all critical care pts) @ -No - Lab Data Result diagrams: 12/23/23 12:25 12/23/23 12:25 Lab Results 12/23/23 12/23/23 12/23/23 Range/Units 12:25 12:25 12:25 WBC 24.4 H (3.8-10.6) k/uL RBC 4.73 (4.30-5.90) m/uL Hgb 12.9 L (13.0-17.5) gm/dL Hct 39.5 (39.0-53.0) % MCV 83.5 (80.0-100.0) fL MCH 27.2 (25.0-35.0) pg MCHC 32.6 (31.0-37.0) g/dL RDW 15.9 H (11.5-15.5) % Plt Count 192 (150-450) k/uL MPV 7.9 Neutrophils % 91 % Lymphocytes % 2 % Monocytes % 5 % Eosinophils % 1 % Basophils % 0 % Neutrophils # 22.1 H (1.3-7.7) k/uL Lymphocytes # 0.5 L (1.0-4.8) k/uL Monocytes # 1.2 H (0-1.0) k/uL Eosinophils # 0.2 (0-0.7) k/uL Basophils # 0.0 (0-0.2) k/uL PT 11.3 (10.0-12.5) sec INR 1.0 (<1.2) APTT 30.4 H (22.0-30.0) sec Sodium 135 L (137-145) mmol/L Potassium 4.3 (3.5-5.1) mmol/L Chloride 104 (98-107) mmol/L Carbon Dioxide 17 L (22-30) mmol/L Anion Gap 14 mmol/L BUN 27 H (9-20) mg/dL Creatinine 1.29 H (0.66-1.25) mg/dL Est GFR (CKD-EPI)AfAm 62 (>60 ml/min/1.73 sqM) Est GFR (CKD-EPI)NonAf 54 (>60 ml/min/1.73 sqM) Glucose 154 H (74-99) mg/dL Calcium 8.1 L (8.4-10.2) mg/dL Magnesium 2.2 (1.6-2.3) mg/dL Total Bilirubin 2.0 H (0.2-1.3) mg/dL AST 27 (17-59) U/L ALT 16 (4-49) U/L Alkaline Phosphatase 146 H (38-126) U/L Troponin I (0.000-0.034) ng/mL NT-Pro-B Natriuret Pep 730 pg/mL Total Protein 6.9 (6.3-8.2) g/dL Albumin 3.4 L (3.5-5.0) g/dL Urine Color Urine Appearance (Clear) Urine pH (5.0-8.0) Ur Specific [place] (1.001-1.035) Urine Protein (Negative) Urine Glucose (UA) (Negative) Urine Ketones (Negative) Urine Blood (Negative) Urine Nitrite (Negative) Urine Bilirubin (Negative) Urine Urobilinogen (<2.0) mg/dL Ur Leukocyte Esterase (Negative) Urine RBC (0-5) /hpf Urine WBC (0-5) /hpf Ur Squamous Epith Cells (0-4) /hpf Urine Mucus (None) /hpf Influenza Type A (PCR) (Not Detectd) Influenza Type B (PCR) (Not Detectd) RSV (PCR) (Not Detectd) SARS-CoV-2 (PCR) (Not Detectd) 12/23/23 12/23/23 12/23/23 Range/Units 12:25 12:25 13:45 WBC (3.8-10.6) k/uL RBC (4.30-5.90) m/uL Hgb (13.0-17.5) gm/dL Hct (39.0-53.0) % MCV (80.0-100.0) fL MCH (25.0-35.0) pg MCHC (31.0-37.0) g/dL RDW (11.5-15.5) % Plt Count (150-450) k/uL MPV Neutrophils % % Lymphocytes % % Monocytes % % Eosinophils % % Basophils % % Neutrophils # (1.3-7.7) k/uL Lymphocytes # (1.0-4.8) k/uL Monocytes # (0-1.0) k/uL Eosinophils # (0-0.7) k/uL Basophils # (0-0.2) k/uL PT (10.0-12.5) sec INR (<1.2) APTT (22.0-30.0) sec Sodium (137-145) mmol/L Potassium (3.5-5.1) mmol/L Chloride (98-107) mmol/L Carbon Dioxide (22-30) mmol/L Anion Gap mmol/L BUN (9-20) mg/dL Creatinine (0.66-1.25) mg/dL Est GFR (CKD-EPI)AfAm (>60 ml/min/1.73 sqM) Est GFR (CKD-EPI)NonAf (>60 ml/min/1.73 sqM) Glucose (74-99) mg/dL Calcium (8.4-10.2) mg/dL Magnesium (1.6-2.3) mg/dL Total Bilirubin (0.2-1.3) mg/dL AST (17-59) U/L ALT (4-49) U/L Alkaline Phosphatase (38-126) U/L Troponin I 0.068 H* (0.000-0.034) ng/mL NT-Pro-B Natriuret Pep pg/mL Total Protein (6.3-8.2) g/dL Albumin (3.5-5.0) g/dL Urine Color Light Yellow Urine Appearance Clear (Clear) Urine pH 5.5 (5.0-8.0) Ur Specific [place] 1.023 (1.001-1.035) Urine Protein 1+ H (Negative) Urine Glucose (UA) 4+ H (Negative) Urine Ketones 1+ H (Negative) Urine Blood Small H (Negative) Urine Nitrite Negative (Negative) Urine Bilirubin Negative (Negative) Urine Urobilinogen <2.0 (<2.0) mg/dL Ur Leukocyte Esterase Negative (Negative) Urine RBC 2 (0-5) /hpf Urine WBC 1 (0-5) /hpf Ur Squamous Epith Cells <1 (0-4) /hpf Urine Mucus Rare H (None) /hpf Influenza Type A (PCR) Not Detected (Not Detectd) Influenza Type B (PCR) Not Detected (Not Detectd) RSV (PCR) Not Detected (Not Detectd) SARS-CoV-2 (PCR) Not Detected (Not Detectd) Disposition Clinical Impression: Chest pain Disposition: ADMITTED IP TO THIS HOSP Is patient prescribed a controlled substance at d/c from ED?: No Referrals: Valente Sharma MD [Primary Care Provider] - 1-2 days Time of Disposition: 14:19
[2023-12-23] MEDS: NITROGLYCERIN OINT 1 INCH/GM PACKET TOPICAL STA (12:13)
[2023-12-23] MEDS: ASPIRIN 81 MG PO STA (12:14)
[2023-12-23 12:30] LABS: Basophils % (A) 0 %; Eosinophils # (A) 0.2 k/uL (0-0.7); Eosinophils % (A) 1 %; HCT 39.5 % (39.0-53.0); HGB 12.9 gm/dL (13.0-17.5); Lymphocytes # (A) 0.5 k/uL (1.0-4.8); Lymphocytes % (A) 2 %; MCH 27.2 pg (25.0-35.0); MCHC 32.6 g/dL (31.0-37.0); MCV 83.5 fL (80.0-100.0); Mean Platelet Volume 7.9; Monocytes # (A) 1.2 k/uL (0-1.0); Monocytes % (A) 5 %; Neutrophils # (A) 22.1 k/uL (1.3-7.7); Neutrophils % (A) 91 %; Platelet Count 192 k/uL (150-450); RBC 4.73 m/uL (4.30-5.90); RDW 15.9 % (11.5-15.5); WBC 24.4 k/uL (3.8-10.6)
[2023-12-23 12:44] LABS: Partial Thromboplastin Time 30.4 sec (22.0-30.0); Prothrombin Time 11.3 sec (10.0-12.5)
--- NOTE | 2023-12-23 13:03 | XR ---
EXAMINATION TYPE: XR chest 2V DATE OF EXAM: 12/23/2023 12:47 PM CLINICAL INDICATION:Male, 78 years old with history of Chest Pain; COMPARISON: Chest radiographs from 12/05/2023 TECHNIQUE: XR chest 2V Frontal and lateral views of the chest. FINDINGS: Lungs/Pleura: There is no evidence of pleural effusion, focal consolidation, or pneumothorax. Pulmonary vascularity: Unremarkable. Heart/mediastinum: Cardiomediastinal silhouette is unremarkable. Musculoskeletal: No acute osseous pathology. Midline sternotomy wires are noted. IMPRESSION: No acute cardiopulmonary disease/process.
[2023-12-23 13:11] LABS: ALT 16 U/L (4-49); AST 27 U/L (17-59); African American GFR (CKD) 62 (>60 ml/min/1.73 sqM); Albumin 3.4 g/dL (3.5-5.0); Alkaline Phosphatase 146 U/L (38-126); Anion Gap 14 mmol/L; Blood Urea Nitrogen 27 mg/dL (9-20); Calcium 8.1 mg/dL (8.4-10.2); Carbon Dioxide 17 mmol/L (22-30); Chloride 104 mmol/L (98-107); Glucose 154 mg/dL (74-99); Magnesium 2.2 mg/dL (1.6-2.3); Non-African American GFR(CKD) 54 (>60 ml/min/1.73 sqM); Potassium 4.3 mmol/L (3.5-5.1); Sodium 135 mmol/L (137-145); Total Protein 6.9 g/dL (6.3-8.2)
[2023-12-23 13:19] LABS: NT-Pro-B-Type Natriuretic Pept 730 pg/mL
[2023-12-23 13:58] LABS: Appearance,Urine Clear (Clear); Bilirubin,Urine Negative (Negative); Blood,Urine Small (Negative); Color,Urine Light Yellow; Glucose,Urine (UA) 4+ (Negative); Ketones,Urine 1+ (Negative); Leukocyte Esterase,Urine Negative (Negative); Mucus,Urine Rare /hpf; Nitrite,Urine Negative (Negative); PH, Urine 5.5 (5.0-8.0); Protein,Urine 1+ (Negative); RBC,Urine 2 /hpf (0-5); Specific Gravity,Urine 1.023 (1.001-1.035); Squamous Epithelial Cell,Urine <1 /hpf (0-4); Urobilinogen,Urine <2.0 mg/dL (<2.0); WBC,Urine 1 /hpf (0-5)
[2023-12-23] MEDS ORDERED: NITROGLYCERIN SL TABS 0.4 MG TAB SUBLINGUAL PRN (14:21)
[2023-12-23] MEDS ORDERED: DEXTROSE 50% SYRINGE 50 ML IVP PRN ×2 (17:07)
--- NOTE | 2023-12-23 17:09 | P.HPIM ---
History of Present Illness H&P Date: 12/23/23 Patient is a 78-year-old male with history of systolic CHF, CAD status post CABG, status post TAVR, type 2 diabetes, dementia, hypertension, dyslipidemia, BPH, atrial fibrillation presenting with overall not feeling well. Patient is a poor historian. He claims that over the last 2 days he has been having cough with some sputum production. Has also been having nasal congestion. He denies any significant chest discomfort, palpitations, abdominal pain, nausea, vomiting, urinary or bowel complaints. Denies any significant lower extremity swelling In the ED, temperature was 99.3, pulse 82, respiratory rate 18, blood pressure 146/62, saturating at 99% on room air. EKG shows sinus rhythm with first-degree AV block. Chest x-ray shows no acute opacities. WBC 24.4, hemoglobin 12.9, platelet 192, sodium 135, bicarb 17, anion gap 14, BUN 27, creatinine 1.09, total bili 2, ALP 146, troponin 0.068 he was given aspirin, topical nitroglycerin in the ED. Cardiology consulted. Patient being admitted for chest pain. Pertinent positives and negatives as discussed in HPI, a complete review of systems was performed and all other systems are negative. Patient seen and examined at bedside. Vital signs reviewed General: nontoxic, no distress, appears at stated age Derm: warm, dry Head: atraumatic, normocephalic, symmetric Eyes: EOMI, no lid lag, anicteric sclera, pupils equal round reactive to light ENT: Nose and ears atraumatic Neck: No thyromegaly, supple Mouth: no lip lesion, mucus membranes moist Cardiovascular: S1S2 reg, no murmur, no edema Lungs: clear to auscultation bilateral, no rhonchi, no rales, no wheeze, no accessory muscle use Abdominal: soft, nontender to palpation, no guarding, no appreciable organomegaly Ext: no gross muscle atrophy, muscle strength muscle strength 5 out of 5 in all 4 extremities, no contractures Neuro: CN II-XII grossly intact Psych: Alert, oriented, appropriate affect Assessment/Plan: Active: Upper respiratory symptoms NSTEMI, likely nonischemic Leukocytosis Chronic kidney disease, stage III Hyperbilirubinemia Anion gap metabolic acidosis -Cardiology consulted -Continue aspirin 81 mg, atorvastatin 80 mg -No clear source of infection, possibly upper respiratory -Chest x-ray does not show any clear opacities -Sputum cultures ordered, procalcitonin ordered, blood cultures ordered -Hold off antibiotics at this point -ESR and CRP ordered -Repeat CBC and CMP tomorrow Type 2 diabetes -Continue Jardiance, glargine 56 units, and sliding scale insulin, monitor for hypoglycemia Chronic: Systolic CHF, not in exacerbation CAD status post CABG Status post TAVR Dementia Hypertension Dyslipidemia BPH Atrial fibrillation The patient is admitted with an anticipated greater than 2 midnight stay as inpatient status for evaluation of chest discomfort. Surrogate decision-maker: Daughter CODE STATUS: Full code DVT prophylaxis: Eliquis Anticipated discharge date: Pending clinical course Anticipated discharge place: Pending clinical course A total of 66 minutes was spent on the care of this complex patient more than 50% of the time was spent in counseling and care coordination. Past Medical History Past Medical History: Coronary Artery Disease (CAD), Heart Failure, COPD, Dementia, Diabetes Mellitus, GERD/Reflux, Hyperlipidemia, Hypertension, Memory Impairment, Myocardial Infarction ([place]), Neurologic Disorder, Osteoarthritis (OA), Pneumonia, Prostate Disorder, Vascular Disorder Additional Past Medical History / Comment(s): Hx falls and diarrhea/incontinence since diagnosed with Covid Oct 2022, daughter thinks he may have had a minor heart attack when he had Covid as well. 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 PAD. Enlarged prostate. Chronic back pain. Hx bronchitis. Sinus issues. Last Myocardial Infarction Date:: 2014 History of Any Multi-Drug Resistant Organisms: None Reported Past Surgical History: Coronary Bypass/CABG, Orthopedic Surgery Additional Past Surgical History / Comment(s): 2014 CABG 4 vessel/bioprosthetic aortic valve, angiograms, aortagram with bilateral run-offs, PTBA/atherectomy left leg, left foot surgery for crush injury, colonoscopy, bilateral cataract removals. TAVR Oct 2023. Past Anesthesia/Blood Transfusion Reactions: No Reported Reaction Past Psychological History: Anxiety, Depression Smoking Status: Never smoker Past Alcohol Use History: Heavy Past Drug Use History: None Reported - Past Family History Father History Unknown: Yes Family Medical History: Congestive Heart Failure (CHF) Mother History Unknown: Yes Family Medical History: Congestive Heart Failure (CHF) Medications and Allergies Home Medications Medication Instructions Recorded Confirmed Type Omeprazole [PriLOSEC] 20 mg PO DAILY 02/23/15 12/23/23 History Donepezil [Aricept] 10 mg PO HS #30 03/13/15 12/23/23 Rx Tamsulosin HCl [Flomax] 0.4 mg PO DAILY 03/07/17 12/23/23 History Insulin Aspart [NovoLOG Flexpen] See Protocol SQ BID-W/MEALS 11/08/19 12/23/23 History Amitriptyline HCl [Elavil] 25 mg PO HS 03/16/22 12/23/23 History Potassium Chloride ER [K-Dur 10] 10 meq PO HS 03/16/22 12/23/23 History Insulin Glargine,Hum.rec.anlog 56 unit SQ W/LUNCH 04/05/22 12/23/23 History [Lantus Solostar Pen] amLODIPine [Norvasc] 5 mg PO DAILY 02/21/23 12/23/23 History Albuterol Nebulized [Ventolin 2.5 mg INHALATION RT-QID PRN 04/16/23 12/23/23 History Nebulized] Fluticasone Nasal [place] [Flonase 2 spr EA NOSTRIL DAILY PRN 04/16/23 12/23/23 History Nasal [place]] Atorvastatin [Lipitor] 80 mg PO HS 05/11/23 12/23/23 History Cholecalciferol [Vitamin D3 (125 125 mcg PO HS 05/11/23 12/23/23 History Mcg = 5000 Iu)] Furosemide [Lasix] 40 mg PO DAILY 05/11/23 12/23/23 History Empagliflozin [Jardiance] 10 mg PO DAILY 11/23/23 12/23/23 History Acetaminophen Tab [Tylenol] 650 mg PO Q4HR PRN tab 12/01/23 12/23/23 Rx Apixaban [Eliquis] 5 mg PO DIRECTED 12/05/23 12/23/23 History lisinopriL [Zestril] 10 mg PO DAILY #30 tab 12/10/23 12/23/23 Rx Allergies Allergy/AdvReac Type Severity Reaction Status Date / Time No Known Allergies Allergy Verified 12/23/23 11:27 Physical Exam Vitals: Vital Signs Temp Pulse Resp BP Pulse Ox 12/23/23 15:29 98.2 F 83 18 145/86 96 12/23/23 13:35 82 18 142/75 97 12/23/23 11:25 99.3 F 82 18 146/62 99 Intake and Output 12/23/23 12/23/23 12/23/23 06:59 14:59 22:59 Other: Weight 105.233 kg Results CBC & Chem 7: 12/23/23 12:25 12/23/23 12:25 Labs: Abnormal Lab Results - Last 24 Hours (Table) 12/23/23 12/23/23 12/23/23 Range/Units 12:25 12:25 12:25 WBC 24.4 H (3.8-10.6) k/uL Hgb 12.9 L (13.0-17.5) gm/dL RDW 15.9 H (11.5-15.5) % Neutrophils # 22.1 H (1.3-7.7) k/uL Lymphocytes # 0.5 L (1.0-4.8) k/uL Monocytes # 1.2 H (0-1.0) k/uL APTT 30.4 H (22.0-30.0) sec Sodium 135 L (137-145) mmol/L Carbon Dioxide 17 L (22-30) mmol/L BUN 27 H (9-20) mg/dL Creatinine 1.29 H (0.66-1.25) mg/dL Glucose 154 H (74-99) mg/dL Calcium 8.1 L (8.4-10.2) mg/dL Total Bilirubin 2.0 H (0.2-1.3) mg/dL Alkaline Phosphatase 146 H (38-126) U/L Troponin I (0.000-0.034) ng/mL Albumin 3.4 L (3.5-5.0) g/dL Urine Protein (Negative) Urine Glucose (UA) (Negative) Urine Ketones (Negative) Urine Blood (Negative) Urine Mucus (None) /hpf 12/23/23 12/23/23 Range/Units 12:25 13:45 WBC (3.8-10.6) k/uL Hgb (13.0-17.5) gm/dL RDW (11.5-15.5) % Neutrophils # (1.3-7.7) k/uL Lymphocytes # (1.0-4.8) k/uL Monocytes # (0-1.0) k/uL APTT (22.0-30.0) sec Sodium (137-145) mmol/L Carbon Dioxide (22-30) mmol/L BUN (9-20) mg/dL Creatinine (0.66-1.25) mg/dL Glucose (74-99) mg/dL Calcium (8.4-10.2) mg/dL Total Bilirubin (0.2-1.3) mg/dL Alkaline Phosphatase (38-126) U/L Troponin I 0.068 H* (0.000-0.034) ng/mL Albumin (3.5-5.0) g/dL Urine Protein 1+ H (Negative) Urine Glucose (UA) 4+ H (Negative) Urine Ketones 1+ H (Negative) Urine Blood Small H (Negative) Urine Mucus Rare H (None) /hpf
[2023-12-23] MEDS: NITROGLYCERIN OINT 1 INCH/GM PACKET TOPICAL SCH (17:10)
[2023-12-23 17:21] LABS: Glucose,Whole Blood 154 mg/dL (70-110)
[2023-12-23] MEDS: INSULIN ASPART (NovoLOG) 100 UNIT/ML VIAL SQ SCH (17:27)
[2023-12-23 21:57] LABS: Glucose,Whole Blood 347 mg/dL (70-110)
[2023-12-23] MEDS: CHOLECALCIFEROL 125 MCG (5000 IU) TABLET PO SCH (22:10)
[2023-12-23] MEDS: APIXABAN 5 MG TAB PO SCH (22:10)
[2023-12-23] MEDS: DONEPEZIL 10 MG TAB PO SCH (22:10)
[2023-12-23] MEDS: ATORVASTATIN 80 MG TAB PO SCH (22:15)
[2023-12-23] MEDS: AMITRIPTYLINE HCL 25 MG TAB PO SCH (22:15)
[2023-12-24] MEDS: ASPIRIN 325 MG TAB PO SCH (08:38)
[2023-12-24] MEDS: FUROSEMIDE 40 MG TAB PO SCH (08:39)
[2023-12-24] MEDS: amLODIPine 5 MG TAB PO SCH (08:39)
[2023-12-24 08:41] LABS: Glucose,Whole Blood 174 mg/dL (70-110)
[2023-12-24] MEDS: TAMSULOSIN 0.4 MG CAP.ER.24H PO SCH (08:45)
[2023-12-24] MEDS: lisinopriL 10 MG TAB PO SCH (08:45)
[2023-12-24] MEDS: PANTOPRAZOLE 40 MG TABLET PO SCH (08:46)
[2023-12-24] MEDS: ASPIRIN 81 MG PO SCH (09:14)
[2023-12-24] MEDS: DAPAGLIFLOZIN PROPANEDIOL 5 MG TABLET PO SCH (09:15)
[2023-12-24 09:34] LABS: Anisocytosis Slight; Basophils % (A) 0 %; Eosinophils % (A) 0 %; HCT 41.9 % (39.0-53.0); HGB 13.3 gm/dL (13.0-17.5); Hypochromasia Slight; Lymphocytes # (A) 0.7 k/uL (1.0-4.8); Lymphocytes % (A) 3 %; MCH 27.2 pg (25.0-35.0); MCHC 31.7 g/dL (31.0-37.0); MCV 86.1 fL (80.0-100.0); Mean Platelet Volume 7.9; Monocytes # (A) 1.8 k/uL (0-1.0); Monocytes % (A) 8 %; Neutrophils # (A) 19.2 k/uL (1.3-7.7); Neutrophils % (A) 87 %; Platelet Count 198 k/uL (150-450); RBC 4.87 m/uL (4.30-5.90); RDW 16.1 % (11.5-15.5); WBC 22.1 k/uL (3.8-10.6)
[2023-12-24 09:57] LABS: ALT 15 U/L (4-49); AST 30 U/L (17-59); African American GFR (CKD) 66 (>60 ml/min/1.73 sqM); Albumin 3.3 g/dL (3.5-5.0); Alkaline Phosphatase 163 U/L (38-126); Anion Gap 18 mmol/L; Blood Urea Nitrogen 27 mg/dL (9-20); Calcium 8.4 mg/dL (8.4-10.2); Carbon Dioxide 14 mmol/L (22-30); Chloride 103 mmol/L (98-107); Glucose 165 mg/dL (74-99); Non-African American GFR(CKD) 57 (>60 ml/min/1.73 sqM); Sodium 135 mmol/L (137-145); Total Bilirubin 2.1 mg/dL (0.2-1.3); Total Protein 6.7 g/dL (6.3-8.2)
[2023-12-24 09:58] LABS: Potassium 4.5 mmol/L (3.5-5.1)
[2023-12-24 11:31] LABS: Glucose,Whole Blood 345 mg/dL (70-110)
[2023-12-24] MEDS: INSULIN DETEMIR (LEVEMIR) 100 UNIT/ML SYR SQ SCH (12:16)
--- NOTE | 2023-12-24 13:14 | P.PN ---
Subjective Progress Note Date: 12/24/23 Hospital Course: 78-year-old male with history of systolic CHF, CAD status post CABG, status post TAVR, type 2 diabetes, dementia, hypertension, dyslipidemia, BPH, atrial fibrillation presenting with overall not feeling well. In the ED, temperature was 99.3, pulse 82, respiratory rate 18, blood pressure 146/62, saturating at 99% on room air. EKG shows sinus rhythm with first-degree AV block. Chest x- ray shows no acute opacities. WBC 24.4, hemoglobin 12.9, platelet 192, sodium 135, bicarb 17, anion gap 14, BUN 27, creatinine 1.09, total bili 2, ALP 146, troponin 0.068 he was given aspirin, topical nitroglycerin in the ED. Cardiology consulted. Patient being admitted for chest pain and leukocytosis. Subjective: Patient seen and examined at bedside. No acute events overnight. Denies any new complaints. Pertinent positives and negatives as discussed above, a complete review of systems was performed and all other systems are negative. Vitals Signs Reviewed. General: nontoxic, no distress, appears at stated age Derm: warm, dry Head: atraumatic, normocephalic, symmetric Eyes: EOMI, no lid lag, anicteric sclera, pupils equal round reactive to light ENT: Nose and ears atraumatic Neck: No thyromegaly, supple Mouth: no lip lesion, mucus membranes moist Cardiovascular: S1S2 reg, no murmur, no edema Lungs: clear to auscultation bilateral, no rhonchi, no rales, no wheeze, no accessory muscle use Abdominal: soft, nontender to palpation, no guarding, no appreciable organomegaly Ext: no gross muscle atrophy, muscle strength muscle strength 5 out of 5 in all 4 extremities, no contractures Neuro: CN II-XII grossly intact Psych: Alert, oriented, appropriate affect Data Reviewed Today: Pertinent Labs: WBC 22.1, neutrophilic predominant, ESR 68, CRP 36.5, creatinine 1.23, blood sugars range between 1 65-3 47 Imaging: No new imaging Assessment and Plan: Community-acquired pneumonia NSTEMI, likely nonischemic Leukocytosis slowly improving Chronic kidney disease, stage III Hyperbilirubinemia Anion gap metabolic acidosis -Cardiology consulted, pending recommendations -Continue aspirin 81 mg, atorvastatin 80 mg -Started on ceftriaxone 2 g IV every 24 hours, azithromycin 500 mg IV daily -Sputum cultures ordered, blood cultures ordered -Lactic acid pending -Patient also on Jardiance, discontinued for now, check serum ketones and venous gas -Repeat CBC and CMP tomorrow Type 2 diabetes -Hold Jardiance,, continue glargine 56 units, and sliding scale insulin, monitor for hypoglycemia Chronic: Systolic CHF, not in exacerbation CAD status post CABG Status post TAVR Dementia Hypertension Dyslipidemia BPH Atrial fibrillation DVT ppx: Eliquis Code status: Full code Anticipated discharge place: Pending clinical course Anticipated discharge time: Pending clinical course Objective - Vital Signs Vital signs: Vital Signs Temp 98.1 F 12/24/23 11:22 Pulse 89 12/24/23 11:22 Resp 12 12/24/23 11:22 BP 127/62 12/24/23 11:22 Pulse Ox 94 L 12/24/23 11:22 FiO2 Intake & Output 12/23/23 12/24/23 12/24/23 18:59 06:59 18:59 Intake Total 90 Output Total 575 Balance -485 Weight 105.233 kg Intake: Oral 90 Output: Urine 575 Other: Voiding Method Incontinent # Voids 2 - Labs CBC & Chem 7: 12/24/23 07:57 12/24/23 07:57 Labs: Abnormal Lab Results - Last 24 Hours (Table) 12/23/23 12/23/23 12/23/23 Range/Units 12:25 13:45 15:38 WBC (3.8-10.6) k/uL RDW (11.5-15.5) % Neutrophils # (1.3-7.7) k/uL Lymphocytes # (1.0-4.8) k/uL Monocytes # (0-1.0) k/uL ESR (0-20) mm/Hr Sodium (137-145) mmol/L Carbon Dioxide (22-30) mmol/L BUN (9-20) mg/dL Glucose (74-99) mg/dL POC Glucose (mg/dL) (70-110) mg/dL Total Bilirubin (0.2-1.3) mg/dL Alkaline Phosphatase (38-126) U/L Troponin I 0.068 H* 0.063 H* (0.000-0.034) ng/mL C-Reactive Protein (<1.0) mg/dL Albumin (3.5-5.0) g/dL Procalcitonin (0.02-0.09) ng/mL Urine Protein 1+ H (Negative) Urine Glucose (UA) 4+ H (Negative) Urine Ketones 1+ H (Negative) Urine Blood Small H (Negative) Urine Mucus Rare H (None) /hpf 12/23/23 12/23/23 12/23/23 Range/Units 17:18 18:01 18:01 WBC (3.8-10.6) k/uL RDW (11.5-15.5) % Neutrophils # (1.3-7.7) k/uL Lymphocytes # (1.0-4.8) k/uL Monocytes # (0-1.0) k/uL ESR (0-20) mm/Hr Sodium (137-145) mmol/L Carbon Dioxide (22-30) mmol/L BUN (9-20) mg/dL Glucose (74-99) mg/dL POC Glucose (mg/dL) 154 H (70-110) mg/dL Total Bilirubin (0.2-1.3) mg/dL Alkaline Phosphatase (38-126) U/L Troponin I 0.052 H* (0.000-0.034) ng/mL C-Reactive Protein (<1.0) mg/dL Albumin (3.5-5.0) g/dL Procalcitonin 1.26 H (0.02-0.09) ng/mL Urine Protein (Negative) Urine Glucose (UA) (Negative) Urine Ketones (Negative) Urine Blood (Negative) Urine Mucus (None) /hpf 12/23/23 12/23/23 12/23/23 Range/Units 18:01 18:01 21:55 WBC (3.8-10.6) k/uL RDW (11.5-15.5) % Neutrophils # (1.3-7.7) k/uL Lymphocytes # (1.0-4.8) k/uL Monocytes # (0-1.0) k/uL ESR 68 H (0-20) mm/Hr Sodium (137-145) mmol/L Carbon Dioxide (22-30) mmol/L BUN (9-20) mg/dL Glucose (74-99) mg/dL POC Glucose (mg/dL) 347 H (70-110) mg/dL Total Bilirubin (0.2-1.3) mg/dL Alkaline Phosphatase (38-126) U/L Troponin I (0.000-0.034) ng/mL C-Reactive Protein 36.5 H (<1.0) mg/dL Albumin (3.5-5.0) g/dL Procalcitonin (0.02-0.09) ng/mL Urine Protein (Negative) Urine Glucose (UA) (Negative) Urine Ketones (Negative) Urine Blood (Negative) Urine Mucus (None) /hpf 12/24/23 12/24/23 12/24/23 Range/Units 07:57 07:57 08:39 WBC 22.1 H (3.8-10.6) k/uL RDW 16.1 H (11.5-15.5) % Neutrophils # 19.2 H (1.3-7.7) k/uL Lymphocytes # 0.7 L (1.0-4.8) k/uL Monocytes # 1.8 H (0-1.0) k/uL ESR (0-20) mm/Hr Sodium 135 L (137-145) mmol/L Carbon Dioxide 14 L (22-30) mmol/L BUN 27 H (9-20) mg/dL Glucose 165 H (74-99) mg/dL POC Glucose (mg/dL) 174 H (70-110) mg/dL Total Bilirubin 2.1 H (0.2-1.3) mg/dL Alkaline Phosphatase 163 H (38-126) U/L Troponin I (0.000-0.034) ng/mL C-Reactive Protein (<1.0) mg/dL Albumin 3.3 L (3.5-5.0) g/dL Procalcitonin (0.02-0.09) ng/mL Urine Protein (Negative) Urine Glucose (UA) (Negative) Urine Ketones (Negative) Urine Blood (Negative) Urine Mucus (None) /hpf 12/24/23 Range/Units 11:28 WBC (3.8-10.6) k/uL RDW (11.5-15.5) % Neutrophils # (1.3-7.7) k/uL Lymphocytes # (1.0-4.8) k/uL Monocytes # (0-1.0) k/uL ESR (0-20) mm/Hr Sodium (137-145) mmol/L Carbon Dioxide (22-30) mmol/L BUN (9-20) mg/dL Glucose (74-99) mg/dL POC Glucose (mg/dL) 345 H (70-110) mg/dL Total Bilirubin (0.2-1.3) mg/dL Alkaline Phosphatase (38-126) U/L Troponin I (0.000-0.034) ng/mL C-Reactive Protein (<1.0) mg/dL Albumin (3.5-5.0) g/dL Procalcitonin (0.02-0.09) ng/mL Urine Protein (Negative) Urine Glucose (UA) (Negative) Urine Ketones (Negative) Urine Blood (Negative) Urine Mucus (None) /hpf
[2023-12-24 15:28] LABS: VBG PH 7.44 (7.31-7.41)
[2023-12-24 16:28] LABS: Glucose,Whole Blood 312 mg/dL (70-110)
--- NOTE | 2023-12-24 16:43 | P.CRDCN ---
History of Present Illness Consult date: 12/24/23 Consult reason: chest pain Chief complaint: congestion History of present illness: History of present illness: Patient is a pleasant 78-year-old male with significant past medical history of systolic heart failure, CAD status post CABG, status post TAVR 11/30/2023, type 2 diabetes, dementia, hypertension, hyperlipidemia, BPH, and atrial fibrillation who presented with chest pain and congestion. Patient is a poor historian. Patient reports that he is just not been feeling well and has had some congestion and a cough. He denies any chest pain or shortness of breath. ECHO from 12/06/2023 showed EF 45-50% and stable bioprosthetic aortic valve. Labs reviewed: Troponin 0.068, 0.063, 0.05 to, WBC elevated 24.4, creatinine 1.29, A1C 9.5, BNP 730. Chest x-ray with no acute findings. REVIEW OF SYSTEMS: No fever or chills. No cough or expectoration. No diaphoresis. Patient denies headache, dizziness, blurred vision, double vision. Patient denies any stomach discomfort. No nausea, vomiting. No hematochezia. No hematemesis. Denies any black stools or blood in his stools. Denies dysuria or hematuria. No muscle weakness or numbness. No chest pain or pressure. PHYSICAL EXAMINATION: This is a 78-year-old male in no apparent distress at the time of my examination. HEENT: Head is atraumatic, normocephalic. Pupils are equal, round. Sclerae anicteric. Conjunctivae are clear. Mucous membranes of the mouth are moist. Neck is supple. There is no jugular venous distention. No carotid bruit is heard. CHEST EXAMINATION: Lungs are clear to auscultation. No chest wall tenderness is noted on palpation or with deep breathing. HEART EXAMINATION: Heart regular rate and rhythm. S1, S2 heard. No murmurs, gallops or rub. ABDOMEN: Soft, nontender. Bowel sounds are heard. EXTREMITIES: 2+ peripheral pulses with no evidence of peripheral edema and no calf tenderness noted. NEUROLOGIC EXAMINATION: Patient is awake, alert and oriented x3. IMPRESSION AND PLAN: Aortic stenosis status post TAVR 11/30/2023 CAD status post CABG Chronic systolic heart failure Type 2 diabetes Dementia Hypertension Hyperlipidemia BPH Atrial fibrillation, paroxysmal Leukocytosis PLAN: Continue with current cardiac medications. Leukocytosis management and further workup as per primary team. We will follow. I am dictating on behalf of Dr. Francis Montgomery's history/physical and assessment/plan. Past Medical History Past Medical History: Coronary Artery Disease (CAD), Heart Failure, COPD, Dementia, Diabetes Mellitus, GERD/Reflux, Hyperlipidemia, Hypertension, Memory Impairment, Myocardial Infarction ([place]), Neurologic Disorder, Osteoarthritis (OA), Pneumonia, Prostate Disorder, Vascular Disorder Additional Past Medical History / Comment(s): Hx falls and diarrhea/incontinence since diagnosed with Covid Oct 2022, daughter thinks he may have had a minor heart attack when he had Covid as well. 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 PAD. Enlarged prostate. Chronic back pain. Hx bronchitis. Sinus issues. Last Myocardial Infarction Date:: 2014 History of Any Multi-Drug Resistant Organisms: None Reported Past Surgical History: Coronary Bypass/CABG, Orthopedic Surgery Additional Past Surgical History / Comment(s): 2014 CABG 4 vessel/bioprosthetic aortic valve, angiograms, aortagram with bilateral run-offs, PTBA/atherectomy left leg, left foot surgery for crush injury, colonoscopy, bilateral cataract removals. TAVR Oct 2023. Past Anesthesia/Blood Transfusion Reactions: No Reported Reaction Past Psychological History: Anxiety, Depression Smoking Status: Never smoker Past Alcohol Use History: Heavy Past Drug Use History: None Reported - Past Family History Father History Unknown: Yes Family Medical History: Congestive Heart Failure (CHF) Mother History Unknown: Yes Family Medical History: Congestive Heart Failure (CHF) Medications and Allergies Home Medications Medication Instructions Recorded Confirmed Type Omeprazole [PriLOSEC] 20 mg PO DAILY 02/23/15 12/23/23 History Donepezil [Aricept] 10 mg PO HS #30 03/13/15 12/23/23 Rx Tamsulosin HCl [Flomax] 0.4 mg PO DAILY 03/07/17 12/23/23 History Insulin Aspart [NovoLOG Flexpen] See Protocol SQ BID-W/MEALS 11/08/19 12/23/23 History Amitriptyline HCl [Elavil] 25 mg PO HS 03/16/22 12/23/23 History Potassium Chloride ER [K-Dur 10] 10 meq PO HS 03/16/22 12/23/23 History Insulin Glargine,Hum.rec.anlog 56 unit SQ W/LUNCH 04/05/22 12/23/23 History [Lantus Solostar Pen] amLODIPine [Norvasc] 5 mg PO DAILY 02/21/23 12/23/23 History Albuterol Nebulized [Ventolin 2.5 mg INHALATION RT-QID PRN 04/16/23 12/23/23 History Nebulized] Fluticasone Nasal [place] [Flonase 2 spr EA NOSTRIL DAILY PRN 04/16/23 12/23/23 History Nasal [place]] Atorvastatin [Lipitor] 80 mg PO HS 05/11/23 12/23/23 History Cholecalciferol [Vitamin D3 (125 125 mcg PO HS 05/11/23 12/23/23 History Mcg = 5000 Iu)] Furosemide [Lasix] 40 mg PO DAILY 05/11/23 12/23/23 History Empagliflozin [Jardiance] 10 mg PO DAILY 11/23/23 12/23/23 History Acetaminophen Tab [Tylenol] 650 mg PO Q4HR PRN tab 12/01/23 12/23/23 Rx Apixaban [Eliquis] 5 mg PO DIRECTED 12/05/23 12/23/23 History lisinopriL [Zestril] 10 mg PO DAILY #30 tab 12/10/23 12/23/23 Rx Allergies Allergy/AdvReac Type Severity Reaction Status Date / Time No Known Allergies Allergy Verified 12/23/23 11:27 Physical Exam Vitals: Vital Signs Temp Pulse Pulse Resp BP BP Pulse Ox 12/24/23 08:00 99.5 F 92 22 130/60 98 12/24/23 07:12 93 29 H 130/60 94 L 12/24/23 05:07 92 12 150/64 97 12/24/23 01:52 91 18 148/59 95 12/23/23 15:29 98.2 F 83 18 145/86 96 12/23/23 13:35 82 18 142/75 97 12/23/23 11:25 99.3 F 82 18 146/62 99 Intake and Output 12/23/23 12/24/23 12/24/23 22:59 06:59 14:59 Output Total 275 Balance -275 Output: Urine 275 Other: # Voids 2 Results 12/24/23 07:57 12/24/23 07:57 Cardiac Enzymes 12/23/23 12/23/23 12/23/23 Range/Units 12:25 12:25 15:38 AST 27 (17-59) U/L Troponin I 0.068 H* 0.063 H* (0.000-0.034) ng/mL 12/23/23 Range/Units 18:01 AST (17-59) U/L Troponin I 0.052 H* (0.000-0.034) ng/mL Coagulation 12/23/23 Range/Units 12:25 PT 11.3 (10.0-12.5) sec APTT 30.4 H (22.0-30.0) sec CBC 12/23/23 Range/Units 12:25 WBC 24.4 H (3.8-10.6) k/uL RBC 4.73 (4.30-5.90) m/uL Hgb 12.9 L (13.0-17.5) gm/dL Hct 39.5 (39.0-53.0) % Plt Count 192 (150-450) k/uL Comprehensive Metabolic Panel 12/23/23 Range/Units 12:25 Sodium 135 L (137-145) mmol/L Potassium 4.3 (3.5-5.1) mmol/L Chloride 104 (98-107) mmol/L Carbon Dioxide 17 L (22-30) mmol/L BUN 27 H (9-20) mg/dL Creatinine 1.29 H (0.66-1.25) mg/dL Glucose 154 H (74-99) mg/dL Calcium 8.1 L (8.4-10.2) mg/dL AST 27 (17-59) U/L ALT 16 (4-49) U/L Alkaline Phosphatase 146 H (38-126) U/L Total Protein 6.9 (6.3-8.2) g/dL Albumin 3.4 L (3.5-5.0) g/dL Current Medications Generic Name Dose Route Start Last Admin Trade Name Freq PRN Reason Stop Dose Admin Amitriptyline HCl 25 mg 12/23/23 21:00 12/23/23 22:15 Amitriptyline Hcl 25 Mg Tab PO 25 mg HS MELINA Administration Amlodipine Besylate 5 mg 12/24/23 09:00 12/24/23 08:39 Amlodipine 5 Mg Tab PO 5 mg DAILY MELINA Administration Apixaban 5 mg 12/23/23 21:00 12/24/23 08:38 Apixaban 5 Mg Tab PO 5 mg BID MELINA Administration Protocol Aspirin 81 mg 12/24/23 09:00 12/24/23 09:14 Aspirin 81 Mg PO Not Given DAILY MELINA Atorvastatin Calcium 80 mg 12/23/23 21:00 12/23/23 22:15 Atorvastatin 80 Mg Tab PO 80 mg HS MELINA Administration Cholecalciferol 125 mcg 12/23/23 21:00 12/23/23 22:10 Cholecalciferol 125 Mcg (5000 Iu) Tablet PO 125 mcg HS MELINA Administration Dapagliflozin 5 mg 12/24/23 09:00 12/24/23 09:15 Dapagliflozin Propanediol 5 Mg Tablet PO 5 mg DAILY MELINA Administration Dextrose/Water 25 ml 12/23/23 17:07 Dextrose 50% Syringe 50 Ml IVP PER PROTOCOL PRN Hypoglycemia Protocol Dextrose/Water 50 ml 12/23/23 17:07 Dextrose 50% Syringe 50 Ml IVP PER PROTOCOL PRN Hypoglycemia Protocol Donepezil HCl 10 mg 12/23/23 21:00 12/23/23 22:10 Donepezil 10 Mg Tab PO 10 mg HS MELINA Administration Furosemide 40 mg 12/24/23 09:00 12/24/23 08:39 Furosemide 40 Mg Tab PO 40 mg DAILY MELINA Administration Insulin Aspart 0 unit 12/23/23 17:30 12/24/23 08:46 Insulin Aspart (Novolog) 100 Unit/Ml Vial SQ 2 unit ACHS [facility] Administration Protocol Insulin Detemir 56 unit 12/24/23 12:30 Insulin Detemir (Levemir) 100 Unit/Ml Syr SQ W/LUNCH [facility] Lisinopril 10 mg 12/24/23 09:00 12/24/23 08:45 Lisinopril 10 Mg Tab PO 10 mg DAILY MELINA Administration Nitroglycerin 0.4 mg 12/23/23 14:21 Nitroglycerin Sl Tabs 0.4 Mg Tab SUBLINGUAL Q5M PRN Chest Pain Nitroglycerin 1 inch 12/23/23 18:00 12/24/23 06:22 Nitroglycerin Oint 1 Inch/Gm Packet TOPICAL 1 inch Q6HR MELINA Administration Pantoprazole Sodium 40 mg 12/24/23 07:30 12/24/23 08:46 Pantoprazole 40 Mg Tablet PO 40 mg [id number] MELINA Administration Tamsulosin HCl 0.4 mg 12/24/23 09:00 12/24/23 08:45 Tamsulosin 0.4 Mg Cap.Er.24h PO 0.4 mg DAILY MELINA Administration Intake and Output 12/23/23 12/24/23 12/24/23 22:59 06:59 14:59 Output Total 275 Balance -275 Output: Urine 275 Other: # Voids 2 12/23/23 12:25 12/23/23 12:25
[2023-12-24 16:49] LABS: Chol/HDL Ratio 2.61 Ratio; LDL Cholesterol,Calculated 37.1 mg/dL (0.0-131.0); VLDL Calculation 17.24 mg/dL (5.00-40.00)
[2023-12-24] MEDS: ACETAMINOPHEN TAB 325 MG TAB PO PRN (17:02)
[2023-12-24] MEDS: AZITHROMYCIN 500 MG in SODIUM CHLORIDE 0.9% 250 ML IVPB SCH (17:03)
[2023-12-24 20:20] LABS: Glucose,Whole Blood 254 mg/dL (70-110)
[2023-12-25 05:57] LABS: Glucose,Whole Blood 172 mg/dL (70-110)
[2023-12-25 09:52] LABS: Anisocytosis Slight; Basophils # (A) 0.1 k/uL (0-0.2); Basophils % (A) 0 %; Eosinophils # (A) 0.1 k/uL (0-0.7); Eosinophils % (A) 1 %; HCT 36.8 % (39.0-53.0); HGB 11.7 gm/dL (13.0-17.5); Hypochromasia Slight; Lymphocytes # (A) 0.8 k/uL (1.0-4.8); Lymphocytes % (A) 4 %; MCH 27.3 pg (25.0-35.0); MCHC 31.8 g/dL (31.0-37.0); Mean Platelet Volume 7.8; Monocytes # (A) 1.4 k/uL (0-1.0); Monocytes % (A) 7 %; Neutrophils # (A) 17.7 k/uL (1.3-7.7); Neutrophils % (A) 87 %; Platelet Count 189 k/uL (150-450); RBC 4.28 m/uL (4.30-5.90); RDW 16.4 % (11.5-15.5); WBC 20.3 k/uL (3.8-10.6)
[2023-12-25 10:00] LABS: African American GFR (CKD) 45 (>60 ml/min/1.73 sqM); Anion Gap 13 mmol/L; Blood Urea Nitrogen 32 mg/dL (9-20); Calcium 7.4 mg/dL (8.4-10.2); Carbon Dioxide 17 mmol/L (22-30); Chloride 100 mmol/L (98-107); Glucose 256 mg/dL (74-99); Non-African American GFR(CKD) 39 (>60 ml/min/1.73 sqM); Potassium 3.7 mmol/L (3.5-5.1); Sodium 130 mmol/L (137-145)
--- NOTE | 2023-12-25 10:32 | P.PN ---
Subjective Progress Note Date: 12/25/23 Consult reason: chest pain Chief complaint: congestion History of present illness: History of present illness: Patient is a pleasant 78-year-old male with significant past medical history of systolic heart failure, CAD status post CABG, status post TAVR 11/30/2023, type 2 diabetes, dementia, hypertension, hyperlipidemia, BPH, and atrial fibrillation who presented with chest pain and congestion. Patient is a poor historian. P atient reports that he is just not been feeling well and has had some congestion and a cough. He denies any chest pain or shortness of breath. ECHO from 12/06/2023 showed EF 45-50% and stable bioprosthetic aortic valve. Labs reviewed: Troponin 0.068, 0.063, 0.05 to, WBC elevated 24.4, creatinine 1.29, A1C 9.5, BNP 730. Chest x-ray with no acute findings. 12/25 Heart rate is running in the 80s, blood pressure 143/76, pulse ox 94% on room air. Patient converted to sinus rhythm yesterday afternoon. Patient has been maintained on most of his home cardiac medications in addition to IV antibioti cs. Patient complains of chest pain is but is really in the epigastric area with tenderness. Repeat blood work reveals sodium 130, potassium 3.7, BUN 32 creatinine 1.7. WBC 20.3, hemoglobin 11.7 platelet count 189. PHYSICAL EXAMINATION: This is a 78-year-old male in no apparent distress at the time of my examination. HEENT: Head is atraumatic, normocephalic. Pupils are equal, round. Sclerae a nicteric. Conjunctivae are clear. Mucous membranes of the mouth are moist. Neck is supple. There is no jugular venous distention. No carotid bruit is heard. CHEST EXAMINATION: Lungs are clear to auscultation. No chest wall tenderness is noted on palpation or with deep breathing. HEART EXAMINATION: Heart regular rate and rhythm. S1, S2 heard. No murmurs, gallops or rub. ABDOMEN: Soft, nontender. Bowel sounds are heard. EXTREMITIES: 2+ peripheral pulses with no evidence of peripheral edema and no calf tenderness noted. NEUROLOGIC EXAMINATION: Patient is awake, alert and oriented x3. IMPRESSION AND PLAN: Aortic stenosis status post TAVR 11/30/2023 CAD status post CABG Chronic systolic heart failure Type 2 diabetes Dementia Hypertension Hyperlipidemia BPH Atrial fibrillation, paroxysmal Leukocytosis Elevated troponin, chronically elevated GI pain and tenderness, no chest pain Acute kidney injury PLAN: Continue with current cardiac medications. Leukocytosis management and further workup as per primary team. GI evaluation per attending, GI cocktail ordered Hold Lasix and hold lisinopril for hypertension Nurse practitioner note has been reviewed, I agree with documented findings and plan of care. Patient was seen and examined. Objective - Vital Signs Vital signs: Vital Signs Temp 98.1 F 12/25/23 03:47 Pulse 88 12/25/23 03:47 Resp 22 12/25/23 03:47 BP 143/76 12/25/23 03:47 Pulse Ox 94 L 12/25/23 03:47 FiO2 Intake & Output 12/24/23 12/25/23 12/25/23 18:59 06:59 18:59 Intake Total 1118 120 Output Total 950 Balance 168 120 Weight 105.233 kg Intake: Intake, IV Titration 250 Amount Azithromycin 500 mg In 250 Sodium Chloride 0.9% 250 ml @ 250 mls/hr IVPB DAILY [facility] Rx#:[id number] Oral 868 120 Output: Urine 950 Other: Voiding Method Incontinent Urinal Diaper Incontinent # Voids 2 1 - Labs CBC & Chem 7: 12/25/23 08:43 12/25/23 08:43 Labs: Abnormal Lab Results - Last 24 Hours (Table) 12/24/23 12/24/23 12/24/23 Range/Units 07:57 07:57 07:57 WBC 22.1 H (3.8-10.6) k/uL RDW 16.1 H (11.5-15.5) % Neutrophils # 19.2 H (1.3-7.7) k/uL Lymphocytes # 0.7 L (1.0-4.8) k/uL Monocytes # 1.8 H (0-1.0) k/uL VBG pH (7.31-7.41) VBG pCO2 (37-51) mmHg VBG HCO3 (24-28) mmol/L Sodium (137-145) mmol/L Carbon Dioxide (22-30) mmol/L BUN (9-20) mg/dL Glucose (74-99) mg/dL POC Glucose (mg/dL) (70-110) mg/dL Hemoglobin A1c 9.1 H (<=6.0) % Total Bilirubin (0.2-1.3) mg/dL Alkaline Phosphatase (38-126) U/L Albumin (3.5-5.0) g/dL HDL Cholesterol 33.70 L (40.00-60.00) mg/dL 12/24/23 12/24/23 12/24/23 Range/Units 07:57 08:39 11:28 WBC (3.8-10.6) k/uL RDW (11.5-15.5) % Neutrophils # (1.3-7.7) k/uL Lymphocytes # (1.0-4.8) k/uL Monocytes # (0-1.0) k/uL VBG pH (7.31-7.41) VBG pCO2 (37-51) mmHg VBG HCO3 (24-28) mmol/L Sodium 135 L (137-145) mmol/L Carbon Dioxide 14 L (22-30) mmol/L BUN 27 H (9-20) mg/dL Glucose 165 H (74-99) mg/dL POC Glucose (mg/dL) 174 H 345 H (70-110) mg/dL Hemoglobin A1c (<=6.0) % Total Bilirubin 2.1 H (0.2-1.3) mg/dL Alkaline Phosphatase 163 H (38-126) U/L Albumin 3.3 L (3.5-5.0) g/dL HDL Cholesterol (40.00-60.00) mg/dL 12/24/23 12/24/23 12/24/23 Range/Units 14:59 16:26 20:18 WBC (3.8-10.6) k/uL RDW (11.5-15.5) % Neutrophils # (1.3-7.7) k/uL Lymphocytes # (1.0-4.8) k/uL Monocytes # (0-1.0) k/uL VBG pH 7.44 H (7.31-7.41) VBG pCO2 31 L (37-51) mmHg VBG HCO3 21 L (24-28) mmol/L Sodium (137-145) mmol/L Carbon Dioxide (22-30) mmol/L BUN (9-20) mg/dL Glucose (74-99) mg/dL POC Glucose (mg/dL) 312 H 254 H (70-110) mg/dL Hemoglobin A1c (<=6.0) % Total Bilirubin (0.2-1.3) mg/dL Alkaline Phosphatase (38-126) U/L Albumin (3.5-5.0) g/dL HDL Cholesterol (40.00-60.00) mg/dL 12/25/23 Range/Units 05:55 WBC (3.8-10.6) k/uL RDW (11.5-15.5) % Neutrophils # (1.3-7.7) k/uL Lymphocytes # (1.0-4.8) k/uL Monocytes # (0-1.0) k/uL VBG pH (7.31-7.41) VBG pCO2 (37-51) mmHg VBG HCO3 (24-28) mmol/L Sodium (137-145) mmol/L Carbon Dioxide (22-30) mmol/L BUN (9-20) mg/dL Glucose (74-99) mg/dL POC Glucose (mg/dL) 172 H (70-110) mg/dL Hemoglobin A1c (<=6.0) % Total Bilirubin (0.2-1.3) mg/dL Alkaline Phosphatase (38-126) U/L Albumin (3.5-5.0) g/dL HDL Cholesterol (40.00-60.00) mg/dL Microbiology - Last 24 Hours (Table) 12/23/23 18:01 Blood Culture - Preliminary Blood 12/23/23 18:01 Blood Culture - Preliminary Blood
--- NOTE | 2023-12-25 11:16 | P.PN ---
Subjective Progress Note Date: 12/25/23 Hospital Course: 78-year-old male with history of systolic CHF, CAD status post CABG, status post TAVR, type 2 diabetes, dementia, hypertension, dyslipidemia, BPH, atrial fibrillation presenting with overall not feeling well. In the ED, temperature was 99.3, pulse 82, respiratory rate 18, blood pressure 146/62, saturating at 99% on room air. EKG shows sinus rhythm with first-degree AV block. Chest x- ray shows no acute opacities. WBC 24.4, hemoglobin 12.9, platelet 192, sodium 135, bicarb 17, anion gap 14, BUN 27, creatinine 1.09, total bili 2, ALP 146, troponin 0.068 he was given aspirin, topical nitroglycerin in the ED. Cardiology consulted. Patient being admitted for chest pain and leukocytosis. Infectious workup pending. Subjective: Patient seen and examined at bedside. No acute events overnight. Complaining of Abdominal pain and neck pain. Pertinent positives and negatives as discussed above, a complete review of systems was performed and all other systems are negative. Vitals Signs Reviewed. General: nontoxic, no distress, appears at stated age Derm: warm, dry Head: atraumatic, normocephalic, symmetric Eyes: EOMI, no lid lag, anicteric sclera, pupils equal round reactive to light ENT: Nose and ears atraumatic Neck: No thyromegaly, supple, no stiffness Mouth: no lip lesion, mucus membranes moist Cardiovascular: S1S2 reg, no murmur, no edema Lungs: clear to auscultation bilateral, no rhonchi, no rales, no wheeze, no accessory muscle use Abdominal: soft, diffusely tender to palpation, no guarding, no appreciable organomegaly Ext: no gross muscle atrophy, muscle strength muscle strength 5 out of 5 in all 4 extremities, no contractures Neuro: CN II-XII grossly intact Psych: Alert, oriented, appropriate affect Data Reviewed Today: Pertinent Labs: WBC 22.1, neutrophilic predominant, ESR 68, CRP 36.5, creatinine 1.23, blood sugars range between 1 65-3 47 Imaging: No new imaging Assessment and Plan: Sepsis, Unknown source NSTEMI, likely nonischemic Leukocytosis slowly improving Chronic kidney disease, stage III Hyperbilirubinemia Anion gap metabolic acidosis, improving -Cardiology note reviewed, hold diuretics and lisinopril. -Continue aspirin 81 mg, atorvastatin 80 mg -Abdomen could possibly be a likely source of sepsis -Patient also complaining of neck pain however no neck stiffness -Antibiotics broadened to IV Zosyn 3.375 g every 8 hours -MRI cervical spine, and CT abdomen pelvis pending -ID consulted -Blood cultures no growth to date -Urinalysis pending -Discontinue amlodipine Type 2 diabetes -Continue to hold Jardiance continue glargine 56 units, and sliding scale insulin, monitor for hypoglycemia Chronic: Systolic CHF, not in exacerbation CAD status post CABG Status post TAVR Dementia Hypertension Dyslipidemia BPH Atrial fibrillation DVT ppx: Eliquis Code status: Full code Anticipated discharge place: Pending clinical course Anticipated discharge time: Pending clinical course Objective - Vital Signs Vital signs: Vital Signs Temp 98.2 F 12/25/23 08:00 Pulse 91 12/25/23 08:00 Resp 20 12/25/23 08:00 BP 95/46 12/25/23 08:00 Pulse Ox 96 12/25/23 08:00 FiO2 Intake & Output 12/24/23 12/25/23 12/25/23 18:59 06:59 18:59 Intake Total 1118 120 118 Output Total 950 Balance 168 120 118 Weight 105.233 kg Intake: Intake, IV Titration 250 Amount Azithromycin 500 mg In 250 Sodium Chloride 0.9% 250 ml @ 250 mls/hr IVPB DAILY [facility] Rx#:[id number] Oral 868 120 118 Output: Urine 950 Other: Voiding Method Incontinent Urinal Urinal Diaper Diaper Incontinent Incontinent # Voids 2 1 - Labs CBC & Chem 7: 12/25/23 08:43 12/25/23 08:43 Labs: Abnormal Lab Results - Last 24 Hours (Table) 12/24/23 12/24/23 12/24/23 Range/Units 07:57 07:57 11:28 WBC (3.8-10.6) k/uL RBC (4.30-5.90) m/uL Hgb (13.0-17.5) gm/dL Hct (39.0-53.0) % RDW (11.5-15.5) % Neutrophils # (1.3-7.7) k/uL Lymphocytes # (1.0-4.8) k/uL Monocytes # (0-1.0) k/uL VBG pH (7.31-7.41) VBG pCO2 (37-51) mmHg VBG HCO3 (24-28) mmol/L Sodium (137-145) mmol/L Carbon Dioxide (22-30) mmol/L BUN (9-20) mg/dL Creatinine (0.66-1.25) mg/dL Glucose (74-99) mg/dL POC Glucose (mg/dL) 345 H (70-110) mg/dL Hemoglobin A1c 9.1 H (<=6.0) % Calcium (8.4-10.2) mg/dL HDL Cholesterol 33.70 L (40.00-60.00) mg/dL 12/24/23 12/24/23 12/24/23 Range/Units 14:59 16:26 20:18 WBC (3.8-10.6) k/uL RBC (4.30-5.90) m/uL Hgb (13.0-17.5) gm/dL Hct (39.0-53.0) % RDW (11.5-15.5) % Neutrophils # (1.3-7.7) k/uL Lymphocytes # (1.0-4.8) k/uL Monocytes # (0-1.0) k/uL VBG pH 7.44 H (7.31-7.41) VBG pCO2 31 L (37-51) mmHg VBG HCO3 21 L (24-28) mmol/L Sodium (137-145) mmol/L Carbon Dioxide (22-30) mmol/L BUN (9-20) mg/dL Creatinine (0.66-1.25) mg/dL Glucose (74-99) mg/dL POC Glucose (mg/dL) 312 H 254 H (70-110) mg/dL Hemoglobin A1c (<=6.0) % Calcium (8.4-10.2) mg/dL HDL Cholesterol (40.00-60.00) mg/dL 12/25/23 12/25/23 12/25/23 Range/Units 05:55 08:43 08:43 WBC 20.3 H (3.8-10.6) k/uL RBC 4.28 L (4.30-5.90) m/uL Hgb 11.7 L (13.0-17.5) gm/dL Hct 36.8 L (39.0-53.0) % RDW 16.4 H (11.5-15.5) % Neutrophils # 17.7 H (1.3-7.7) k/uL Lymphocytes # 0.8 L (1.0-4.8) k/uL Monocytes # 1.4 H (0-1.0) k/uL VBG pH (7.31-7.41) VBG pCO2 (37-51) mmHg VBG HCO3 (24-28) mmol/L Sodium 130 L (137-145) mmol/L Carbon Dioxide 17 L (22-30) mmol/L BUN 32 H (9-20) mg/dL Creatinine 1.70 H (0.66-1.25) mg/dL Glucose 256 H (74-99) mg/dL POC Glucose (mg/dL) 172 H (70-110) mg/dL Hemoglobin A1c (<=6.0) % Calcium 7.4 L (8.4-10.2) mg/dL HDL Cholesterol (40.00-60.00) mg/dL Microbiology - Last 24 Hours (Table) 12/23/23 18:01 Blood Culture - Preliminary Blood 12/23/23 18:01 Blood Culture - Preliminary Blood
[2023-12-25 12:06] LABS: Glucose,Whole Blood 318 mg/dL (70-110)
[2023-12-25] MEDS: MAG HYDROX/AL HYDROX/SIMETH 30 ML, HYOSCYAMINE ELIXIR 10 ML, LIDOCAINE VISCOUS 10 ML PO ONE (12:18)
--- NOTE | 2023-12-25 12:59 | CT ---
EXAMINATION TYPE: CT abdomen wo con DATE OF EXAM: 12/25/2023 COMPARISON: none HISTORY: Sepsis, Mid abdominal pain CT DLP: 751.6 mGycm Examination of the solid and hollow viscera is limited given the lack of contrast. FINDINGS: LUNG BASES: No evidence for nodule. No evidence for infiltrate. Basilar atelectasis with small effusi ons. LIVER/GB: There is evidence of gallbladder hydrops of the gallbladder wall thickening. Cholecystic st randing attenuation. The findings are felt to reflect acute cholecystitis. No space-occupying hepatic lesion. PANCREAS: No pancreatic mass identified. No inflammatory process seen. SPLEEN: No evidence for splenomegaly. No intrasplenic lesions seen. ADRENALS: No adrenal nodules identified. No evidence for thickening. KIDNEYS: No evidence for renal mass. No nephrolithiasis. No hydronephrosis. BOWEL: The visualized bowel loops. A normal caliber. Lymph nodes: No evidence for adenopathy greater than 1 cm. Abdominal aorta: Atheromatous changes seen. No evidence for aneurysm. Other: No significant abnormality. IMPRESSION: FINDINGS SUGGEST ACUTE CHOLECYSTITIS. CORRELATE CLINICALLY.
--- NOTE | 2023-12-25 13:56 | US ---
EXAMINATION TYPE: US kidneys/renal and bladder DATE OF EXAM: 12/25/2023 COMPARISON: NONE CLINICAL INDICATION: Male, 78 years old with history of elena; sepsis, elena, large patient, he could not hold breath or roll due to neck and abd pain EXAM MEASUREMENTS: Right Kidney: N/A Left Kidney: N/A Right Kidney: not seen due to extensive bowel gas, patient very tender to any pressure Left Kidney: not seen due to extensive bowel gas, patient very tender to any pressure Bladder: wnl IMPRESSION: Limited study given overlying bowel content.
[2023-12-25 16:41] LABS: Glucose,Whole Blood 282 mg/dL (70-110)
[2023-12-25] MEDS: PIPERACILLIN-TAZOBACTAM 3.375 GM in SODIUM CHLORIDE 0.9% 100 ML IVPB SCH (17:02)
[2023-12-25 19:53] LABS: Glucose,Whole Blood 279 mg/dL (70-110)
[2023-12-25] MEDS: MORPHINE SULFATE 4 MG/ML SYRINGE IVP STA (20:16)
[2023-12-25 20:50] LABS: Appearance,Urine Clear (Clear); Bacteria,Urine Occasional /hpf; Bilirubin,Urine Negative (Negative); Blood,Urine Trace (Negative); Color,Urine Light Yellow; Glucose,Urine (UA) 4+ (Negative); Ketones,Urine Negative (Negative); Leukocyte Esterase,Urine Negative (Negative); Nitrite,Urine Negative (Negative); Protein,Urine 1+ (Negative); RBC,Urine 1 /hpf (0-5); Specific Gravity,Urine 1.019 (1.001-1.035); Urobilinogen,Urine <2.0 mg/dL (<2.0); WBC,Urine 1 /hpf (0-5)
--- NOTE | 2023-12-25 23:02 | P.CONS ---
History of Present Illness - Reason for Consult Consult date: 12/25/23 Sepsis unclear source Requesting physician: Fan Carrillo - Chief Complaint Abdominal pain x few days - History of Present Illness Patient is a 78-year-old male with a past medical history significant for diabetes mellitus hypertension hyperlipidemia memory impairment heart failure and coronary disease patient presenting to the hospital 2 days ago for evaluation of chest discomfort in this patient who recently did have a TAVR procedure patient was describing the pain to be mild did not have any shortness of breath cough associated with it patient on presentation to the hospital did have low-grade fever of 99.3 patient did spike a fever of 102.5 F yesterday afternoon and low-grade fever of 99.9 this afternoon patient was nontachycardic hypertensive or hypoxic patient did have white count of 24.4 with a left shift BUN/creatinine has been mildly elevated liver enzymes are normal urine has been negative influenza RSV and COVID testing was negative blood cultures obtained which are currently pending chest x-ray no acute cardiopulmonary disease process patient did have a CT of abdomen that has been suspicious for cholecystitis patient is currently on Zosyn infectious disease was consulted for further management of antibiotic therapy patient unfortunately not a very good historian has been complaining of not feeling well and discomfort however unable to characterize his pain has been complaining of some nausea but no vomiting did not have any diarrhea cough or sputum production Review of Systems Positive point and negatives has been mentioned in the HPI, complete review of systems was performed and all other systems are negative Past Medical History Past Medical History: Coronary Artery Disease (CAD), Heart Failure, COPD, Dementia, Diabetes Mellitus, GERD/Reflux, Hyperlipidemia, Hypertension, Memory Impairment, Myocardial Infarction (OR), Neurologic Disorder, Osteoarthritis (OA), Pneumonia, Prostate Disorder, Vascular Disorder Additional Past Medical History / Comment(s): Hx falls and diarrhea/incontinence since diagnosed with Covid Oct 2022, daughter thinks he may have had a minor heart attack when he had Covid as well. 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 PAD. Enlarged prostate. Chronic back pain. Hx bronchitis. Sinus issues. Last Myocardial Infarction Date:: 2014 History of Any Multi-Drug Resistant Organisms: None Reported Past Surgical History: Coronary Bypass/CABG, Orthopedic Surgery Additional Past Surgical History / Comment(s): 2014 CABG 4 vessel/bioprosthetic aortic valve, angiograms, aortagram with bilateral run-offs, PTBA/atherectomy left leg, left foot surgery for crush injury, colonoscopy, bilateral cataract removals. TAVR Oct 2023. Past Anesthesia/Blood Transfusion Reactions: No Reported Reaction Past Psychological History: Anxiety, Depression Smoking Status: Never smoker Past Alcohol Use History: Heavy Past Drug Use History: None Reported - Past Family History Father History Unknown: Yes Family Medical History: Congestive Heart Failure (CHF) Mother History Unknown: Yes Family Medical History: Congestive Heart Failure (CHF) Medications and Allergies Home Medications Medication Instructions Recorded Confirmed Type Omeprazole [PriLOSEC] 20 mg PO DAILY 02/23/15 12/23/23 History Donepezil [Aricept] 10 mg PO HS #30 03/13/15 12/23/23 Rx Tamsulosin HCl [Flomax] 0.4 mg PO DAILY 03/07/17 12/23/23 History Insulin Aspart [NovoLOG Flexpen] See Protocol SQ BID-W/MEALS 11/08/19 12/23/23 History Amitriptyline HCl [Elavil] 25 mg PO HS 03/16/22 12/23/23 History Potassium Chloride ER [K-Dur 10] 10 meq PO HS 03/16/22 12/23/23 History Insulin Glargine,Hum.rec.anlog 56 unit SQ W/LUNCH 04/05/22 12/23/23 History [Lantus Solostar Pen] amLODIPine [Norvasc] 5 mg PO DAILY 02/21/23 12/23/23 History Albuterol Nebulized [Ventolin 2.5 mg INHALATION RT-QID PRN 04/16/23 12/23/23 History Nebulized] Fluticasone Nasal [place] [Flonase 2 spr EA NOSTRIL DAILY PRN 04/16/23 12/23/23 History Nasal [place]] Atorvastatin [Lipitor] 80 mg PO HS 05/11/23 12/23/23 History Cholecalciferol [Vitamin D3 (125 125 mcg PO HS 05/11/23 12/23/23 History Mcg = 5000 Iu)] Furosemide [Lasix] 40 mg PO DAILY 05/11/23 12/23/23 History Empagliflozin [Jardiance] 10 mg PO DAILY 11/23/23 12/23/23 History Acetaminophen Tab [Tylenol] 650 mg PO Q4HR PRN tab 12/01/23 12/23/23 Rx Apixaban [Eliquis] 5 mg PO DIRECTED 12/05/23 12/23/23 History lisinopriL [Zestril] 10 mg PO DAILY #30 tab 12/10/23 12/23/23 Rx Allergies Allergy/AdvReac Type Severity Reaction Status Date / Time No Known Allergies Allergy Verified 12/23/23 11:27 Physical Exam Vitals: Vital Signs Temp Pulse Resp BP BP Pulse Ox 12/25/23 11:32 99 F 86 20 130/71 95 12/25/23 08:00 98.2 F 91 20 95/56 95/46 96 12/25/23 03:47 98.1 F 88 22 143/76 94 L 12/25/23 02:00 84 22 12/24/23 23:44 97.8 F 84 22 130/61 99 12/24/23 20:00 97.7 F 81 22 104/63 97 12/24/23 16:30 101.6 F H 132/49 12/24/23 15:26 102.5 F H 89 20 104/55 97 12/24/23 14:00 89 12 Intake and Output 12/24/23 12/25/23 12/25/23 22:59 06:59 14:59 Intake Total 1028 118 Output Total 375 Balance 653 118 Intake: Intake, IV Titration 250 Amount Azithromycin 500 mg In 250 Sodium Chloride 0.9% 250 ml @ 250 mls/hr IVPB DAILY [facility] Rx#:[id number] Oral 778 118 Output: Urine 375 Other: Voiding Method Urinal Urinal Urinal Diaper Diaper Diaper Incontinent Incontinent Incontinent # Voids 1 GENERAL DESCRIPTION: Elderly male lying in bed, no distress. No tachypnea or accessory muscle of respiration use. HEENT: Shows Pallor , no scleral icterus. Oral mucous membrane is dry. NECK: Trachea central, no thyromegaly. LUNGS: Unlabored breathing. Clear to auscultation anteriorly. No wheeze or crackle. HEART: S1, S2, regular rate and rhythm. No loud murmur ABDOMEN: Soft, mild distention and tenderness EXTREMITIES: No edema of feet. SKIN: No rash, no masses palpable. NEUROLOGICAL: The patient is awake, alert, oriented x3, mood and affect normal. Results CBC & Chem 7: 02/04/24 08:43 12/25/23 08:43 Labs: Abnormal Lab Results - Last 24 Hours (Table) 12/24/23 12/24/23 12/24/23 Range/Units 07:57 14:59 16:26 WBC (3.8-10.6) k/uL RBC (4.30-5.90) m/uL Hgb (13.0-17.5) gm/dL Hct (39.0-53.0) % RDW (11.5-15.5) % Neutrophils # (1.3-7.7) k/uL Lymphocytes # (1.0-4.8) k/uL Monocytes # (0-1.0) k/uL VBG pH 7.44 H (7.31-7.41) VBG pCO2 31 L (37-51) mmHg VBG HCO3 21 L (24-28) mmol/L Sodium (137-145) mmol/L Carbon Dioxide (22-30) mmol/L BUN (9-20) mg/dL Creatinine (0.66-1.25) mg/dL Glucose (74-99) mg/dL POC Glucose (mg/dL) 312 H (70-110) mg/dL Calcium (8.4-10.2) mg/dL HDL Cholesterol 33.70 L (40.00-60.00) mg/dL 12/24/23 12/25/23 12/25/23 Range/Units 20:18 05:55 08:43 WBC 20.3 H (3.8-10.6) k/uL RBC 4.28 L (4.30-5.90) m/uL Hgb 11.7 L (13.0-17.5) gm/dL Hct 36.8 L (39.0-53.0) % RDW 16.4 H (11.5-15.5) % Neutrophils # 17.7 H (1.3-7.7) k/uL Lymphocytes # 0.8 L (1.0-4.8) k/uL Monocytes # 1.4 H (0-1.0) k/uL VBG pH (7.31-7.41) VBG pCO2 (37-51) mmHg VBG HCO3 (24-28) mmol/L Sodium (137-145) mmol/L Carbon Dioxide (22-30) mmol/L BUN (9-20) mg/dL Creatinine (0.66-1.25) mg/dL Glucose (74-99) mg/dL POC Glucose (mg/dL) 254 H 172 H (70-110) mg/dL Calcium (8.4-10.2) mg/dL HDL Cholesterol (40.00-60.00) mg/dL 12/25/23 12/25/23 Range/Units 08:43 12:04 WBC (3.8-10.6) k/uL RBC (4.30-5.90) m/uL Hgb (13.0-17.5) gm/dL Hct (39.0-53.0) % RDW (11.5-15.5) % Neutrophils # (1.3-7.7) k/uL Lymphocytes # (1.0-4.8) k/uL Monocytes # (0-1.0) k/uL VBG pH (7.31-7.41) VBG pCO2 (37-51) mmHg VBG HCO3 (24-28) mmol/L Sodium 130 L (137-145) mmol/L Carbon Dioxide 17 L (22-30) mmol/L BUN 32 H (9-20) mg/dL Creatinine 1.70 H (0.66-1.25) mg/dL Glucose 256 H (74-99) mg/dL POC Glucose (mg/dL) 318 H (70-110) mg/dL Calcium 7.4 L (8.4-10.2) mg/dL HDL Cholesterol (40.00-60.00) mg/dL Microbiology - Last 24 Hours (Table) 12/23/23 18:01 Blood Culture - Preliminary Blood 12/23/23 18:01 Blood Culture - Preliminary Blood Assessment and Plan (1) Sepsis Current Visit: Yes Status: Acute Code(s): A41.9 - SEPSIS, UNSPECIFIED ORGANISM SNOMED Code(s): 24058487 (2) Cholecystitis Current Visit: Yes Status: Acute Code(s): K81.9 - CHOLECYSTITIS, UNSPECIFIED SNOMED Code(s): 46447749 Plan: 1patient with sepsis in this patient initial complaint has been mostly chest pain however the patient did have a right upper quadrant tenderness on examination and did have abnormal CT suspicious for cholecystitis and currently no other obvious focus for his fever with chest x-ray negative for pneumonia urine is negative and no evidence of any cellulitis 2-patient is currently covered with Zosyn to continue and general surgery has been consulted who is following the patient We will follow on clinical condition and cultures to further adjust medication if needed Thank you for this consultation we will follow the patient along with you Dictation was produced using [employer] dictation software. please excuse any grammatical, word or spelling errors. Time with Patient: Greater than 30
[2023-12-26 06:12] LABS: Glucose,Whole Blood 164 mg/dL (70-110)
[2023-12-26 07:36] LABS: Anisocytosis Slight; Basophils % (A) 0 %; Eosinophils % (A) 0 %; HCT 37.3 % (39.0-53.0); HGB 12.2 gm/dL (13.0-17.5); Hypochromasia Slight; Lymphocytes # (A) 0.6 k/uL (1.0-4.8); Lymphocytes % (A) 3 %; MCH 27.6 pg (25.0-35.0); MCHC 32.7 g/dL (31.0-37.0); MCV 84.2 fL (80.0-100.0); Mean Platelet Volume 7.8; Monocytes # (A) 1.5 k/uL (0-1.0); Monocytes % (A) 8 %; Neutrophils # (A) 16.5 k/uL (1.3-7.7); Neutrophils % (A) 87 %; Platelet Count 190 k/uL (150-450); RBC 4.42 m/uL (4.30-5.90); RDW 16.4 % (11.5-15.5); WBC 18.9 k/uL (3.8-10.6)
[2023-12-26 08:21] LABS: ALT 17 U/L (4-49); AST 30 U/L (17-59); African American GFR (CKD) 45 (>60 ml/min/1.73 sqM); Albumin 2.6 g/dL (3.5-5.0); Alkaline Phosphatase 179 U/L (38-126); Anion Gap 12 mmol/L; Blood Urea Nitrogen 33 mg/dL (9-20); Calcium 7.7 mg/dL (8.4-10.2); Carbon Dioxide 20 mmol/L (22-30); Chloride 104 mmol/L (98-107); Glucose 145 mg/dL (74-99); Non-African American GFR(CKD) 39 (>60 ml/min/1.73 sqM); Potassium 3.9 mmol/L (3.5-5.1); Sodium 136 mmol/L (137-145); Total Bilirubin 0.9 mg/dL (0.2-1.3); Total Protein 5.7 g/dL (6.3-8.2)
--- NOTE | 2023-12-26 10:05 | XR ---
EXAMINATION TYPE: XR orbit pre-MRI foreign body DATE OF EXAM: 12/26/2023 9:59 AM CLINICAL INDICATION:Male, 78 years old with history of PRE-MRI clearance, [facility] for 1015; [facility] Rule out foreign body. COMPARISON: None TECHNIQUE: views of the orbits frontal, lateral and Gallegos. FINDINGS: Radiographic evaluation of the orbits fail to demonstrate evidence of an orbital fracture. There is n o radiopaque foreign body identified. The adjacent paranasal sinuses are well aerated an without evid ence of intra-cavitary fluid accumulation. IMPRESSION: No radiographic evidence of radiopaque foreign body.
--- NOTE | 2023-12-26 10:19 | P.PN ---
Subjective Progress Note Date: 12/26/23 Hospital Course: 78-year-old male with history of systolic CHF, CAD status post CABG, status post TAVR, type 2 diabetes, dementia, hypertension, dyslipidemia, BPH, atrial fibrillation presenting with overall not feeling well. In the ED, temperature was 99.3, pulse 82, respiratory rate 18, blood pressure 146/62, saturating at 99% on room air. EKG shows sinus rhythm with first-degree AV block. Chest x- ray shows no acute opacities. WBC 24.4, hemoglobin 12.9, platelet 192, sodium 135, bicarb 17, anion gap 14, BUN 27, creatinine 1.09, total bili 2, ALP 146, troponin 0.068 he was given aspirin, topical nitroglycerin in the ED. Cardiology consulted. Patient admitted for sepsis. CT abdomen pelvis c ompleted, shows evidence of acute cholecystitis. General surgery was consulted. Patient will benefit from cholecystostomy. Transfer to [facility] initiated. Pending bed availability. Remains on IV antibiotics. Subjective: Patient seen and examined at bedside. No acute events overnight. Still complaining of abdominal pain, neck pain is slightly better. Pertinent positives and negatives as discussed above, a complete review of systems was performed and all other systems are negative. Vitals Signs Reviewed. General: nontoxic, no distress, appears at stated age Derm: warm, dry Head: atraumatic, normocephalic, symmetric Eyes: EOMI, no lid lag, anicteric sclera, pupils equal round reactive to light ENT: Nose and ears atraumatic Neck: No thyromegaly, supple, no stiffness Mouth: no lip lesion, mucus membranes moist Cardiovascular: S1S2 reg, no murmur, no edema Lungs: clear to auscultation bilateral, no rhonchi, no rales, no wheeze, no accessory muscle use Abdominal: soft, diffusely tender to palpation, no guarding, no appreciable organomegaly Ext: no gross muscle atrophy, muscle strength muscle strength 5 out of 5 in all 4 extremities, no contractures Neuro: CN II-XII grossly intact Psych: Alert, oriented, appropriate affect Data Reviewed Today: Pertinent Labs: WBC 18.9, creatinine 1.68, blood glucose range between 1 45-2 79, total bili 0.9, AST 30, ALT 17, ALP 179 Imaging: No new imaging Assessment and Plan: Patient is severely ill, prognosis guarded Sepsis secondary to acute cholecystitis NSTEMI, nonischemic Chronic kidney disease, stage III Hyperbilirubinemia Anion gap metabolic acidosis, improving -General surgery was consulted, patient would benefit from cholecystostomy, transfer to [facility] in process, pending bed availability -Cardiology following, hold diuretics and lisinopril, amlodipine -Continue aspirin 81 mg, atorvastatin 80 mg -Patient also complaining of neck pain however no neck stiffness, MRI cervical spine pending -Continue IV Zosyn 3.375 g every 8 hours -ID following -Blood cultures no growth to date Type 2 diabetes -Continue to hold Jardiance continue glargine 56 units, and sliding scale insulin, monitor for hypoglycemia Chronic: Systolic CHF, not in exacerbation CAD status post CABG Status post TAVR Dementia Hypertension Dyslipidemia BPH Atrial fibrillation DVT ppx: Eliquis Code status: Full code Anticipated discharge place: Transfer to [facility] Anticipated discharge time: Pending bed availability Objective - Vital Signs Vital signs: Vital Signs Temp 98.2 F 12/26/23 04:00 Pulse 91 12/26/23 04:00 Resp 20 12/26/23 04:00 BP 115/56 12/26/23 04:00 Pulse Ox 92 L 12/26/23 04:00 FiO2 Intake & Output 12/25/23 12/26/23 12/26/23 18:59 06:59 18:59 Intake Total 726 Output Total 900 Balance 726 -900 Intake: Intake, IV Titration 400 Amount Azithromycin 500 mg In 250 Sodium Chloride 0.9% 250 ml @ 250 mls/hr IVPB DAILY MELINA Rx#:[id number] Piperacillin-Tazobactam 3 100 .375 gm In Sodium Chloride 0.9% 100 ml @ 25 mls/hr IVPB Q8HR MELINA Rx# :[id number] cefTRIAXone 2 gm In 50 Sodium Chloride 0.9% 50 ml @ 100 mls/hr IVPB Q24HR MELINA Rx#:[id number] Oral 326 Output: Urine 900 Other: Voiding Method Urinal External Catheter Diaper Incontinent # Voids 3 - Labs CBC & Chem 7: 12/26/23 06:34 12/26/23 06:34 Labs: Abnormal Lab Results - Last 24 Hours (Table) 12/25/23 12/25/23 12/25/23 Range/Units 12:04 16:40 19:40 WBC (3.8-10.6) k/uL Hgb (13.0-17.5) gm/dL Hct (39.0-53.0) % RDW (11.5-15.5) % Neutrophils # (1.3-7.7) k/uL Lymphocytes # (1.0-4.8) k/uL Monocytes # (0-1.0) k/uL Sodium (137-145) mmol/L Carbon Dioxide (22-30) mmol/L BUN (9-20) mg/dL Creatinine (0.66-1.25) mg/dL Glucose (74-99) mg/dL POC Glucose (mg/dL) 318 H 282 H (70-110) mg/dL Calcium (8.4-10.2) mg/dL Alkaline Phosphatase (38-126) U/L Total Protein (6.3-8.2) g/dL Albumin (3.5-5.0) g/dL Urine Protein 1+ H (Negative) Urine Glucose (UA) 4+ H (Negative) Urine Blood Trace H (Negative) Urine Bacteria Occasional H (None) /hpf 12/25/23 12/26/23 12/26/23 Range/Units 19:52 06:10 06:34 WBC 18.9 H (3.8-10.6) k/uL Hgb 12.2 L (13.0-17.5) gm/dL Hct 37.3 L (39.0-53.0) % RDW 16.4 H (11.5-15.5) % Neutrophils # 16.5 H (1.3-7.7) k/uL Lymphocytes # 0.6 L (1.0-4.8) k/uL Monocytes # 1.5 H (0-1.0) k/uL Sodium (137-145) mmol/L Carbon Dioxide (22-30) mmol/L BUN (9-20) mg/dL Creatinine (0.66-1.25) mg/dL Glucose (74-99) mg/dL POC Glucose (mg/dL) 279 H 164 H (70-110) mg/dL Calcium (8.4-10.2) mg/dL Alkaline Phosphatase (38-126) U/L Total Protein (6.3-8.2) g/dL Albumin (3.5-5.0) g/dL Urine Protein (Negative) Urine Glucose (UA) (Negative) Urine Blood (Negative) Urine Bacteria (None) /hpf 12/26/23 Range/Units 06:34 WBC (3.8-10.6) k/uL Hgb (13.0-17.5) gm/dL Hct (39.0-53.0) % RDW (11.5-15.5) % Neutrophils # (1.3-7.7) k/uL Lymphocytes # (1.0-4.8) k/uL Monocytes # (0-1.0) k/uL Sodium 136 L (137-145) mmol/L Carbon Dioxide 20 L (22-30) mmol/L BUN 33 H (9-20) mg/dL Creatinine 1.68 H (0.66-1.25) mg/dL Glucose 145 H (74-99) mg/dL POC Glucose (mg/dL) (70-110) mg/dL Calcium 7.7 L (8.4-10.2) mg/dL Alkaline Phosphatase 179 H (38-126) U/L Total Protein 5.7 L (6.3-8.2) g/dL Albumin 2.6 L (3.5-5.0) g/dL Urine Protein (Negative) Urine Glucose (UA) (Negative) Urine Blood (Negative) Urine Bacteria (None) /hpf Microbiology - Last 24 Hours (Table) 12/23/23 18:01 Blood Culture - Preliminary Blood 12/23/23 18:01 Blood Culture - Preliminary Blood
[2023-12-26 11:41] LABS: Glucose,Whole Blood 207 mg/dL (70-110)
--- NOTE | 2023-12-26 12:09 | P.PN ---
Subjective HISTORY OF PRESENT ILLNESS: Patient is a pleasant 78-year-old male with significant past medical history of systolic heart failure, CAD status post CABG, status post TAVR 11/30/2023, type 2 diabetes, dementia, hypertension, hyperlipidemia, BPH, and atrial fibrillation who presented with chest pain and congestion. Patient is a poor historian. P juan carlos reports that he is just not been feeling well and has had some congestion and a cough. He denies any chest pain or shortness of breath. ECHO from 12/06/2023 showed EF 45-50% and stable bioprosthetic aortic valve. Labs reviewed: Troponin 0.068, 0.063, 0.05 to, WBC elevated 24.4, creatinine 1.29, A1C 9.5, BNP 730. Chest x-ray with no acute findings. 12/25 Heart rate is running in the 80s, blood pressure 143/76, pulse ox 94% on room air. Patient converted to sinus rhythm yesterday afternoon. Patient has been maintained on most of his home cardiac medications in addition to IV antibioti cs. Patient complains of chest pain is but is really in the epigastric area with tenderness. Repeat blood work reveals sodium 130, potassium 3.7, BUN 32 creatinine 1.7. WBC 20.3, hemoglobin 11.7 platelet count 189. December 26, 2023 Patient examined this morning at the bedside. Patient denies chest pain or pressure. Patient denies shortness of breath. Telemetry reveals sinus mechanism. Blood pressure 110/56. He reports right upper quadrant abdominal pain. CT of the abdomen revealed acute cholecystitis. General surgery has been consulted. No surgical intervention recommended at this facility. Plans are underway for transfer to tertiary care center. PHYSICAL EXAM: VITAL SIGNS: Reviewed. GENERAL: Well-developed in no acute distress. NECK: Supple. No JVD or thyromegaly LUNGS: Respirations even and unlabored. Lungs essentially clear to auscultation bilaterally. HEART: Regular rate and rhythm. S1 and S2 heard. Systolic murmur noted. EXTREMITIES: Normal range of motion. No clubbing or cyanosis. Peripheral pulses intact. No lower extremity edema ASSESSMENT: Epigastric pain Acute cholecystitis Aortic stenosis status post TAVR 11/30/2023 CAD status post CABG Chronic systolic heart failure Type 2 diabetes Dementia Hypertension Hyperlipidemia BPH Atrial fibrillation, paroxysmal Leukocytosis Elevated troponin, chronically elevated Acute kidney injury PLAN: Continue current cardiac medications Lasix and lisinopril remain on hold secondary to acute kidney injury No plans for surgical intervention at this facility per general surgery However, if plans change, patient may undergo surgery here from a cardiac perspective. Patient is moderate to high risk from a cardiac standpoint Further recommendations pending patient course Nurse practitioner note has been reviewed by physician. Signing provider agrees with the documented findings, assessment, and plan of care documented by HEALTH CONSULTANT as a scribe. Objective - Vital Signs Vital signs: Vital Signs Temp 98.5 F 12/26/23 10:52 Pulse 78 12/26/23 10:52 Resp 19 12/26/23 10:58 BP 113/52 12/26/23 10:52 Pulse Ox 92 L 12/26/23 10:52 FiO2 Intake & Output 12/25/23 12/26/23 12/26/23 18:59 06:59 18:59 Intake Total 726 Output Total 900 Balance 726 -900 Intake: Intake, IV Titration 400 Amount Azithromycin 500 mg In 250 Sodium Chloride 0.9% 250 ml @ 250 mls/hr IVPB DAILY MELINA Rx#:[id number] Piperacillin-Tazobactam 3 100 .375 gm In Sodium Chloride 0.9% 100 ml @ 25 mls/hr IVPB Q8HR MELINA Rx# :[id number] cefTRIAXone 2 gm In 50 Sodium Chloride 0.9% 50 ml @ 100 mls/hr IVPB Q24HR MELINA Rx#:[id number] Oral 326 Output: Urine 900 Other: Voiding Method Urinal External Catheter External Catheter Diaper Incontinent # Voids 3 - Labs CBC & Chem 7: 12/26/23 06:34 12/26/23 06:34 Labs: Abnormal Lab Results - Last 24 Hours (Table) 12/25/23 12/25/23 12/25/23 Range/Units 12:04 16:40 19:40 WBC (3.8-10.6) k/uL Hgb (13.0-17.5) gm/dL Hct (39.0-53.0) % RDW (11.5-15.5) % Neutrophils # (1.3-7.7) k/uL Lymphocytes # (1.0-4.8) k/uL Monocytes # (0-1.0) k/uL Sodium (137-145) mmol/L Carbon Dioxide (22-30) mmol/L BUN (9-20) mg/dL Creatinine (0.66-1.25) mg/dL Glucose (74-99) mg/dL POC Glucose (mg/dL) 318 H 282 H (70-110) mg/dL Calcium (8.4-10.2) mg/dL Alkaline Phosphatase (38-126) U/L Total Protein (6.3-8.2) g/dL Albumin (3.5-5.0) g/dL Urine Protein 1+ H (Negative) Urine Glucose (UA) 4+ H (Negative) Urine Blood Trace H (Negative) Urine Bacteria Occasional H (None) /hpf 12/25/23 12/26/23 12/26/23 Range/Units 19:52 06:10 06:34 WBC 18.9 H (3.8-10.6) k/uL Hgb 12.2 L (13.0-17.5) gm/dL Hct 37.3 L (39.0-53.0) % RDW 16.4 H (11.5-15.5) % Neutrophils # 16.5 H (1.3-7.7) k/uL Lymphocytes # 0.6 L (1.0-4.8) k/uL Monocytes # 1.5 H (0-1.0) k/uL Sodium (137-145) mmol/L Carbon Dioxide (22-30) mmol/L BUN (9-20) mg/dL Creatinine (0.66-1.25) mg/dL Glucose (74-99) mg/dL POC Glucose (mg/dL) 279 H 164 H (70-110) mg/dL Calcium (8.4-10.2) mg/dL Alkaline Phosphatase (38-126) U/L Total Protein (6.3-8.2) g/dL Albumin (3.5-5.0) g/dL Urine Protein (Negative) Urine Glucose (UA) (Negative) Urine Blood (Negative) Urine Bacteria (None) /hpf 12/26/23 12/26/23 Range/Units 06:34 11:39 WBC (3.8-10.6) k/uL Hgb (13.0-17.5) gm/dL Hct (39.0-53.0) % RDW (11.5-15.5) % Neutrophils # (1.3-7.7) k/uL Lymphocytes # (1.0-4.8) k/uL Monocytes # (0-1.0) k/uL Sodium 136 L (137-145) mmol/L Carbon Dioxide 20 L (22-30) mmol/L BUN 33 H (9-20) mg/dL Creatinine 1.68 H (0.66-1.25) mg/dL Glucose 145 H (74-99) mg/dL POC Glucose (mg/dL) 207 H (70-110) mg/dL Calcium 7.7 L (8.4-10.2) mg/dL Alkaline Phosphatase 179 H (38-126) U/L Total Protein 5.7 L (6.3-8.2) g/dL Albumin 2.6 L (3.5-5.0) g/dL Urine Protein (Negative) Urine Glucose (UA) (Negative) Urine Blood (Negative) Urine Bacteria (None) /hpf Microbiology - Last 24 Hours (Table) 12/23/23 18:01 Blood Culture - Preliminary Blood 12/23/23 18:01 Blood Culture - Preliminary Blood
--- NOTE | 2023-12-26 12:15 | MR ---
EXAMINATION TYPE: MR cervical spine wo con DATE OF EXAM: 12/26/2023 10:41 AM CLINICAL INDICATION:Male, 78 years old with history of pain, sepsis; Neck pain, sepsis COMPARISON: None. TECHNIQUE: Limited exam T1 sagittal and coronal coronal only. Patient terminating the exam early. IV Contrast: (none) FINDINGS: Early termination of the exam. There cervical alignment appears within normal limits given motion. No evidence for mass. Multilevel facet joint and uncovertebral joint arthropathy are present. C6-C7 at least mild spinal canal stenosis secondary to disc osteophyte complex IMPRESSION: Limited T1-weighted exam only. At least mild spinal canal stenosis C6-C7 secondary disc osteophyte co mplex.
[2023-12-26 12:43] VITALS: BMI 34.2
--- NOTE | 2023-12-26 13:06 | P.GSCN ---
History of Present Illness Consult date: 12/26/23 History of present illness: CHIEF COMPLAINT: Chest pain Reason for consult: Acute cholecystitis HISTORY OF PRESENT ILLNESS: This is a 78-year-old male who presented to the hospital with complaints of chest pain. Patient had recent TAVR on 11/30/2023. Also history of coronary disease and CABG in 2015. Patient is a poor historian. He does have abdominal tenderness in the right upper quadrant epigastric area. He did have a fever on admission with leukocytosis. He had a CT scan abdomen pelvis that had shown evidence of acute cholecystitis. Patient is a poor his papito. Patient is on Eliquis for Afib. PAST MEDICAL HISTORY: See below PAST SURGICAL HISTORY: See below MEDICATIONS: See below ALLERGIES: See below SOCIAL HISTORY: No illicit drug use. REVIEW OF SYSTEMS: CONSTITUTIONAL: Denies fever or chills. HEENT: Denies blurred vision, vision changes, or eye pain. Denies hemoptysis CARDIOVASCULAR: Denies chest pain or pressure. RESPIRATORY: No shortness of breath. GASTROINTESTINAL: See HPI for pertinent findings HEMATOLOGIC: Denies bleeding disorders. GENITOURINARY: Denies any blood in urine or increased urinary frequency. SKIN: Denies pruitis. Denies rash. PHYSICAL EXAM: VITAL SIGNS: Reviewed GENERAL: Well-developed in no acute distress. HEENT: No sclera icterus. Extraocular movements grossly intact. Moist buccal mucosa. Head is atraumatic, normocephalic. No nasal drainage. ABDOMEN: Soft. Nondistended. Tenderness with palpation in the epigastric and right upper quadrant NEUROLOGIC: Awake and alert LABORATORY DATA: WBC on admission 24.4 down to 18.9 Hgb 12.2 platelets 190 Sodium is 136 potassium 3.9 creatinine 1.68 IMAGING: CT scan abdomen pelvis findings suggest acute cholecystitis. bladder ultrasound limited study given overlying bowel content ASSESSMENT: 1. Acute cholecystitis 2. Recent TAVR PLAN: -Recommend patient be transferred to another facility for interventional radiology for cholecystostomy tube placement. Patient has been accepted at [facility]. Awaiting bed placement. -Continue antibiotics -Add low-fat diet -Continue antibiotics Physician Supervisor Train Operations note has been reviewed by physician. Signing provider agrees with the documented findings, assessment, and plan of care. I have personally seen and examined the patient, reviewed the DIRECTOR OF EMPLOYEE DEVELOPMENT /PAs history, exam and MDM and agree with the assessment and plan as written. Based on total visit time, I have performed more than 50% of the visit. As above: Patient with acute cholecystitis. CAT scan findings reviewed with patient. Yesterday I spoke with the hospitalist on duty. Given the appearance on CAT scan patient is high risk for conversion to an open procedure. Given the patient's comorbidities and the CAT scan findings he would be a reasonable candidate for cholecystostomy tube placement with interval laparoscopic cholecystectomy which should have better odds of staying laparoscopic. Patient is agreeable. Tentatively plans are for transfer. Continue holding anticoagulation. Continue antibiotics. Past Medical History Past Medical History: Coronary Artery Disease (CAD), Heart Failure, COPD, Dementia, Diabetes Mellitus, GERD/Reflux, Hyperlipidemia, Hypertension, Memory Impairment, Myocardial Infarction ([place]), Neurologic Disorder, Osteoarthritis (OA), Pneumonia, Prostate Disorder, Vascular Disorder Additional Past Medical History / Comment(s): Hx falls and diarrhea/incontinence since diagnosed with Covid Oct 2022, daughter thinks he may have had a minor heart attack when he had Covid as well. 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 PAD. Enlarged prostate. Chronic back pain. Hx bronchitis. Sinus issues. Last Myocardial Infarction Date:: 2014 History of Any Multi-Drug Resistant Organisms: None Reported Past Surgical History: Coronary Bypass/CABG, Orthopedic Surgery Additional Past Surgical History / Comment(s): 2014 CABG 4 vessel/bioprosthetic aortic valve, angiograms, aortagram with bilateral run-offs, PTBA/atherectomy left leg, left foot surgery for crush injury, colonoscopy, bilateral cataract removals. TAVR Oct 2023. Past Anesthesia/Blood Transfusion Reactions: No Reported Reaction Past Psychological History: Anxiety, Depression Smoking Status: Never smoker Past Alcohol Use History: Heavy Past Drug Use History: None Reported - Past Family History Father History Unknown: Yes Family Medical History: Congestive Heart Failure (CHF) Mother History Unknown: Yes Family Medical History: Congestive Heart Failure (CHF) Medications and Allergies Home Medications Medication Instructions Recorded Confirmed Type Omeprazole [PriLOSEC] 20 mg PO DAILY 02/23/15 12/23/23 History Donepezil [Aricept] 10 mg PO HS #30 03/13/15 12/23/23 Rx Tamsulosin HCl [Flomax] 0.4 mg PO DAILY 03/07/17 12/23/23 History Insulin Aspart [NovoLOG Flexpen] See Protocol SQ BID-W/MEALS 11/08/19 12/23/23 History Amitriptyline HCl [Elavil] 25 mg PO HS 03/16/22 12/23/23 History Potassium Chloride ER [K-Dur 10] 10 meq PO HS 03/16/22 12/23/23 History Insulin Glargine,Hum.rec.anlog 56 unit SQ W/LUNCH 04/05/22 12/23/23 History [Lantus Solostar Pen] amLODIPine [Norvasc] 5 mg PO DAILY 02/21/23 12/23/23 History Albuterol Nebulized [Ventolin 2.5 mg INHALATION RT-QID PRN 04/16/23 12/23/23 History Nebulized] Fluticasone Nasal Flanagan [Flonase 2 spr EA NOSTRIL DAILY PRN 04/16/23 12/23/23 History Nasal Flanagan] Atorvastatin [Lipitor] 80 mg PO HS 05/11/23 12/23/23 History Cholecalciferol [Vitamin D3 (125 125 mcg PO HS 05/11/23 12/23/23 History Mcg = 5000 Iu)] Furosemide [Lasix] 40 mg PO DAILY 05/11/23 12/23/23 History Empagliflozin [Jardiance] 10 mg PO DAILY 11/23/23 12/23/23 History Acetaminophen Tab [Tylenol] 650 mg PO Q4HR PRN tab 12/01/23 12/23/23 Rx Apixaban [Eliquis] 5 mg PO DIRECTED 12/05/23 12/23/23 History lisinopriL [Zestril] 10 mg PO DAILY #30 tab 12/10/23 12/23/23 Rx Allergies Allergy/AdvReac Type Severity Reaction Status Date / Time No Known Allergies Allergy Verified 12/23/23 11:27 Surgical - Exam Vital Signs Temp Pulse Resp BP Pulse Ox 99.3 F 82 18 146/62 99 12/23/23 11:25 12/23/23 11:25 12/23/23 11:25 12/23/23 11:25 12/23/23 11:25 Results - Labs 12/26/23 06:34 12/26/23 06:34 Abnormal Lab Results - Last 24 Hours (Table) 12/25/23 12/25/23 12/25/23 Range/Units 12:04 16:40 19:40 WBC (3.8-10.6) k/uL Hgb (13.0-17.5) gm/dL Hct (39.0-53.0) % RDW (11.5-15.5) % Neutrophils # (1.3-7.7) k/uL Lymphocytes # (1.0-4.8) k/uL Monocytes # (0-1.0) k/uL Sodium (137-145) mmol/L Carbon Dioxide (22-30) mmol/L BUN (9-20) mg/dL Creatinine (0.66-1.25) mg/dL Glucose (74-99) mg/dL POC Glucose (mg/dL) 318 H 282 H (70-110) mg/dL Calcium (8.4-10.2) mg/dL Alkaline Phosphatase (38-126) U/L Total Protein (6.3-8.2) g/dL Albumin (3.5-5.0) g/dL Urine Protein 1+ H (Negative) Urine Glucose (UA) 4+ H (Negative) Urine Blood Trace H (Negative) Urine Bacteria Occasional H (None) /hpf 12/25/23 12/26/23 12/26/23 Range/Units 19:52 06:10 06:34 WBC 18.9 H (3.8-10.6) k/uL Hgb 12.2 L (13.0-17.5) gm/dL Hct 37.3 L (39.0-53.0) % RDW 16.4 H (11.5-15.5) % Neutrophils # 16.5 H (1.3-7.7) k/uL Lymphocytes # 0.6 L (1.0-4.8) k/uL Monocytes # 1.5 H (0-1.0) k/uL Sodium (137-145) mmol/L Carbon Dioxide (22-30) mmol/L BUN (9-20) mg/dL Creatinine (0.66-1.25) mg/dL Glucose (74-99) mg/dL POC Glucose (mg/dL) 279 H 164 H (70-110) mg/dL Calcium (8.4-10.2) mg/dL Alkaline Phosphatase (38-126) U/L Total Protein (6.3-8.2) g/dL Albumin (3.5-5.0) g/dL Urine Protein (Negative) Urine Glucose (UA) (Negative) Urine Blood (Negative) Urine Bacteria (None) /hpf 12/26/23 12/26/23 Range/Units 06:34 11:39 WBC (3.8-10.6) k/uL Hgb (13.0-17.5) gm/dL Hct (39.0-53.0) % RDW (11.5-15.5) % Neutrophils # (1.3-7.7) k/uL Lymphocytes # (1.0-4.8) k/uL Monocytes # (0-1.0) k/uL Sodium 136 L (137-145) mmol/L Carbon Dioxide 20 L (22-30) mmol/L BUN 33 H (9-20) mg/dL Creatinine 1.68 H (0.66-1.25) mg/dL Glucose 145 H (74-99) mg/dL POC Glucose (mg/dL) 207 H (70-110) mg/dL Calcium 7.7 L (8.4-10.2) mg/dL Alkaline Phosphatase 179 H (38-126) U/L Total Protein 5.7 L (6.3-8.2) g/dL Albumin 2.6 L (3.5-5.0) g/dL Urine Protein (Negative) Urine Glucose (UA) (Negative) Urine Blood (Negative) Urine Bacteria (None) /hpf Microbiology - Last 24 Hours (Table) 12/23/23 18:01 Blood Culture - Preliminary Blood 12/23/23 18:01 Blood Culture - Preliminary Blood Diabetes panel 12/26/23 Range/Units 06:34 Sodium 136 L (137-145) mmol/L Potassium 3.9 (3.5-5.1) mmol/L Chloride 104 (98-107) mmol/L Carbon Dioxide 20 L (22-30) mmol/L BUN 33 H (9-20) mg/dL Creatinine 1.68 H (0.66-1.25) mg/dL Glucose 145 H (74-99) mg/dL Calcium 7.7 L (8.4-10.2) mg/dL AST 30 (17-59) U/L ALT 17 (4-49) U/L Alkaline Phosphatase 179 H (38-126) U/L Total Protein 5.7 L (6.3-8.2) g/dL Albumin 2.6 L (3.5-5.0) g/dL Calcium panel 12/26/23 Range/Units 06:34 Calcium 7.7 L (8.4-10.2) mg/dL Albumin 2.6 L (3.5-5.0) g/dL Pituitary panel 12/26/23 Range/Units 06:34 Sodium 136 L (137-145) mmol/L Potassium 3.9 (3.5-5.1) mmol/L Chloride 104 (98-107) mmol/L Carbon Dioxide 20 L (22-30) mmol/L BUN 33 H (9-20) mg/dL Creatinine 1.68 H (0.66-1.25) mg/dL Glucose 145 H (74-99) mg/dL Calcium 7.7 L (8.4-10.2) mg/dL Adrenal panel 12/26/23 Range/Units 06:34 Sodium 136 L (137-145) mmol/L Potassium 3.9 (3.5-5.1) mmol/L Chloride 104 (98-107) mmol/L Carbon Dioxide 20 L (22-30) mmol/L BUN 33 H (9-20) mg/dL Creatinine 1.68 H (0.66-1.25) mg/dL Glucose 145 H (74-99) mg/dL Calcium 7.7 L (8.4-10.2) mg/dL Total Bilirubin 0.9 (0.2-1.3) mg/dL AST 30 (17-59) U/L ALT 17 (4-49) U/L Alkaline Phosphatase 179 H (38-126) U/L Total Protein 5.7 L (6.3-8.2) g/dL Albumin 2.6 L (3.5-5.0) g/dL
[2023-12-26] MEDS: HYDROcodone/APAP 5-325MG 1 EACH TAB PO PRN (15:58)
[2023-12-26 16:35] LABS: Glucose,Whole Blood 207 mg/dL (70-110)
[2023-12-26 19:49] LABS: Glucose,Whole Blood 217 mg/dL (70-110)
[2023-12-27 06:04] LABS: Glucose,Whole Blood 100 mg/dL (70-110)
--- NOTE | 2023-12-27 07:24 | P.PN ---
Subjective Progress Note Date: 12/26/23 Principal diagnosis: Reason for follow-up is fever/cholecystitis Patient is a 78-year-old male with a past medical history significant for diabetes mellitus hypertension hyperlipidemia memory impairment heart failure and coronary disease patient presenting to the hospital for evaluation of chest discomfort, patient also noticed to be febrile did have a CT of abdomen suspicious for cholecystitis. On today's evaluation that is 12/26/2023, the patient did have resolution of his fever and is afebrile today, patient is breathing comfortably on room air, the patient denies chest pain shortness of breath and no significant cough, patient complaining of some nausea and abdominal discomfort but no vomiting or diarrhea has been reported. Patient did have white count is down to 18.9, creatinine is 1.68 Objective - Vital Signs Vital signs: Vital Signs Temp 98.5 F 12/26/23 10:52 Pulse 69 12/26/23 12:02 Resp 18 12/26/23 12:02 BP 110/56 12/26/23 12:02 Pulse Ox 92 L 12/26/23 12:02 FiO2 Intake & Output 12/25/23 12/26/23 12/26/23 18:59 06:59 18:59 Intake Total 726 Output Total 900 Balance 726 -900 Intake: Intake, IV Titration 400 Amount Azithromycin 500 mg In 250 Sodium Chloride 0.9% 250 ml @ 250 mls/hr IVPB DAILY MELINA Rx#:[id number] Piperacillin-Tazobactam 3 100 .375 gm In Sodium Chloride 0.9% 100 ml @ 25 mls/hr IVPB Q8HR MELINA Rx# :[id number] cefTRIAXone 2 gm In 50 Sodium Chloride 0.9% 50 ml @ 100 mls/hr IVPB Q24HR MELINA Rx#:[id number] Oral 326 Output: Urine 900 Other: Voiding Method Urinal External Catheter External Catheter Diaper Incontinent # Voids 3 - Exam GENERAL DESCRIPTION: An elderly male lying in bed in no distress RESPIRATORY SYSTEM: Unlabored breathing , decreased breath sounds at bases HEART: S1 S2 regular rate and rhythm , ABDOMEN: Soft , mild tenderness EXTREMITIES: No edema feet - Labs CBC & Chem 7: 12/26/23 06:34 12/26/23 06:34 Labs: Abnormal Lab Results - Last 24 Hours (Table) 12/25/23 12/25/23 12/25/23 Range/Units 16:40 19:40 19:52 WBC (3.8-10.6) k/uL Hgb (13.0-17.5) gm/dL Hct (39.0-53.0) % RDW (11.5-15.5) % Neutrophils # (1.3-7.7) k/uL Lymphocytes # (1.0-4.8) k/uL Monocytes # (0-1.0) k/uL Sodium (137-145) mmol/L Carbon Dioxide (22-30) mmol/L BUN (9-20) mg/dL Creatinine (0.66-1.25) mg/dL Glucose (74-99) mg/dL POC Glucose (mg/dL) 282 H 279 H (70-110) mg/dL Calcium (8.4-10.2) mg/dL Alkaline Phosphatase (38-126) U/L Total Protein (6.3-8.2) g/dL Albumin (3.5-5.0) g/dL Urine Protein 1+ H (Negative) Urine Glucose (UA) 4+ H (Negative) Urine Blood Trace H (Negative) Urine Bacteria Occasional H (None) /hpf 12/26/23 12/26/23 12/26/23 Range/Units 06:10 06:34 06:34 WBC 18.9 H (3.8-10.6) k/uL Hgb 12.2 L (13.0-17.5) gm/dL Hct 37.3 L (39.0-53.0) % RDW 16.4 H (11.5-15.5) % Neutrophils # 16.5 H (1.3-7.7) k/uL Lymphocytes # 0.6 L (1.0-4.8) k/uL Monocytes # 1.5 H (0-1.0) k/uL Sodium 136 L (137-145) mmol/L Carbon Dioxide 20 L (22-30) mmol/L BUN 33 H (9-20) mg/dL Creatinine 1.68 H (0.66-1.25) mg/dL Glucose 145 H (74-99) mg/dL POC Glucose (mg/dL) 164 H (70-110) mg/dL Calcium 7.7 L (8.4-10.2) mg/dL Alkaline Phosphatase 179 H (38-126) U/L Total Protein 5.7 L (6.3-8.2) g/dL Albumin 2.6 L (3.5-5.0) g/dL Urine Protein (Negative) Urine Glucose (UA) (Negative) Urine Blood (Negative) Urine Bacteria (None) /hpf 12/26/23 Range/Units 11:39 WBC (3.8-10.6) k/uL Hgb (13.0-17.5) gm/dL Hct (39.0-53.0) % RDW (11.5-15.5) % Neutrophils # (1.3-7.7) k/uL Lymphocytes # (1.0-4.8) k/uL Monocytes # (0-1.0) k/uL Sodium (137-145) mmol/L Carbon Dioxide (22-30) mmol/L BUN (9-20) mg/dL Creatinine (0.66-1.25) mg/dL Glucose (74-99) mg/dL POC Glucose (mg/dL) 207 H (70-110) mg/dL Calcium (8.4-10.2) mg/dL Alkaline Phosphatase (38-126) U/L Total Protein (6.3-8.2) g/dL Albumin (3.5-5.0) g/dL Urine Protein (Negative) Urine Glucose (UA) (Negative) Urine Blood (Negative) Urine Bacteria (None) /hpf Microbiology - Last 24 Hours (Table) 12/23/23 18:01 Blood Culture - Preliminary Blood 12/23/23 18:01 Blood Culture - Preliminary Blood Assessment and Plan (1) Sepsis Current Visit: Yes Status: Acute Code(s): A41.9 - SEPSIS, UNSPECIFIED ORGANISM SNOMED Code(s): 87802518 (2) Cholecystitis Current Visit: Yes Status: Acute Code(s): K81.9 - CHOLECYSTITIS, UNSPECIFIED SNOMED Code(s): 18516781 Plan: 1patient with sepsis in this patient initial complaint has been mostly chest pain however the patient did have a right upper quadrant tenderness on examination and did have abnormal CT suspicious for cholecystitis and currently no other obvious focus for his fever with chest x-ray negative for pneumonia urine is negative and no evidence of any cellulitis 2-patient did have resolution of his fever white count is trending down to continue with Zosyn possible transfer to [facility] for cholecystotomy tube placement as recommended by surgery discussed with admitting team Dictation was produced using [employer] dictation software. please excuse any grammatical, word or spelling errors. Time with Patient: Less than 30
--- NOTE | 2023-12-27 07:33 | CA ---
Transthoracic Echo Report Name: Tim Coleman Age: 78 Gender: M : 1945 Exam Date: 12/26/2023 14:40 Exam Location: [facility] Ht (in): 69 Wt (lb): 232 Ordering Physician: Fan Carrillo MD Attending/Referring Phys: Rn Medicare Gretchen Chu RDCS Procedure CPT: Indications: 30 day post TAVR Cardiac Hx: CABG, TAVR, HTN, DM Technical Quality: Technically difficult study Contrast 1: Definity Total Dose (mL): 3 Contrast 2: Total Dose (mL): MEASUREMENTS (Male / Female) Normal Values 2D ECHO LV Diastolic Diameter PLAX 5.7 cm 4.2 - 5.9 / 3.9 - 5.3 cm LV Systolic Diameter PLAX 4.6 cm IVS Diastolic Thickness 1.3 cm 0.6 - 1.0 / 0.6 - 0.9 cm LVPW Diastolic Thickness 1.0 cm 0.6 - 1.0 / 0.6 - 0.9 cm LV Relative Wall Thickness 0.4 RV Internal Dim ED PLAX 3.5 cm LVOT Diameter 2.0 cm LA Systolic Diameter LX 4.5 cm 3.0 - 4.0 / 2.7 - 3.8 cm LV Diastolic Volume MOD BP 107.2 cm??? 67 - 155 / 56 - 104 cm??? LV Systolic Volume MOD BP 49.6 cm??? 22 - 58 / 19 - 49 cm??? LV Ejection Fraction MOD BP 53.8 % >= 55 % LV Cardiac Index MOD BP 1880.3 cm???/min???m??? LV Diastolic Volume MOD 4C 118.1 cm??? LV Systolic Volume MOD 4C 56.7 cm??? LV Ejection Fraction MOD 4C 52.0 % LV Cardiac Index MOD 4C 2001.4 cm???/min???m??? LV Diastolic Length 4C 8.3 cm LV Systolic Length 4C 7.6 cm LV Diastolic Volume MOD 2C 91.7 cm??? LV Systolic Volume MOD 2C 41.9 cm??? LV Ejection Fraction MOD 2C 54.3 % LV Cardiac Index MOD 2C 1621.9 cm???/min???m??? LV Diastolic Length 2C 7.7 cm LV Systolic Length 2C 7.2 cm DOPPLER AV Peak Velocity 213.4 cm/s AV Peak Gradient 18.2 mmHg AV Mean Velocity 149.1 cm/s AV Mean Gradient 9.8 mmHg AV Velocity Time Integral 35.8 cm AI Peak Velocity 252.7 cm/s AI Peak Gradient 25.5 mmHg AI Pressure Half Time 535.1 ms LVOT Peak Velocity 80.7 cm/s LVOT Peak Gradient 2.6 mmHg AV Area Cont Eq pk 1.2 cm??? TR Peak Velocity 315.5 cm/s TR Peak Gradient 39.8 mmHg Right Ventricular Systolic Press 49.8 mmHg PV Peak Velocity 81.1 cm/s PV Peak Gradient 2.6 mmHg FINDINGS Left Ventricle Left ventricular ejection fraction is estimated at 50-55 %. Mild increased septal wall thickness. Borderline global left ventricular systolic function. Right Ventricle Mild right ventricular dilatation. Moderate pulmonary hypertension. Right ventricular systolic pressure estimated at 50 mm hg. Right Atrium Right atrium not well visualized. Left Atrium Mildly increased left atrial diameter. Mitral Valve Mitral annular calcification. Mild mitral regurgitation. Aortic Valve Bioprosthetic AOV , not well visualized, with peak gradient of 18 mmHg and mean gradient of 10 mmHg. [id number] aortic regurgitation. Tricuspid Valve Structurally normal tricuspid valve. Mild tricuspid regurgitation. Pulmonic Valve Pulmonic valve not well visualized. Pericardium No pericardial effusion. Aorta Normal size aortic root and proximal ascending aorta. CONCLUSIONS Technically difficult study. Definity ECHO contrast used for improved visualization of the endocardial borders (inadequate visualization of two or more contiguous segments). Left ventricular systolic function borderline normal Bioprosthetic aortic valve not well visualized with mean gradient of 10 mmHg and mild to moderate aortic regurgitation Mild mitral and tricuspid regurgitation with moderate pulmonary hypertension Previewed by: Dr. Torrey Almodovar MD (Electronically Signed) Final Date: 27 December 2023 07:32
[2023-12-27 09:42] LABS: Anisocytosis Slight; Basophils # (A) 0.1 k/uL (0-0.2); Basophils % (A) 0 %; Eosinophils # (A) 0.1 k/uL (0-0.7); Eosinophils % (A) 1 %; HCT 41.2 % (39.0-53.0); Hypochromasia Slight; Lymphocytes # (A) 0.8 k/uL (1.0-4.8); Lymphocytes % (A) 4 %; MCH 26.6 pg (25.0-35.0); MCHC 31.5 g/dL (31.0-37.0); MCV 84.6 fL (80.0-100.0); Mean Platelet Volume 7.4; Monocytes # (A) 1.4 k/uL (0-1.0); Monocytes % (A) 7 %; Neutrophils # (A) 16.2 k/uL (1.3-7.7); Neutrophils % (A) 86 %; Platelet Count 231 k/uL (150-450); RBC 4.87 m/uL (4.30-5.90); RDW 16.6 % (11.5-15.5); WBC 18.9 k/uL (3.8-10.6)
[2023-12-27 10:03] LABS: ALT 17 U/L (4-49); AST 46 U/L (17-59); African American GFR (CKD) 31 (>60 ml/min/1.73 sqM); Albumin 2.5 g/dL (3.5-5.0); Alkaline Phosphatase 170 U/L (38-126); Anion Gap 12 mmol/L; Blood Urea Nitrogen 48 mg/dL (9-20); Calcium 7.7 mg/dL (8.4-10.2); Carbon Dioxide 16 mmol/L (22-30); Chloride 106 mmol/L (98-107); Glucose 100 mg/dL (74-99); Non-African American GFR(CKD) 27 (>60 ml/min/1.73 sqM); Potassium 3.9 mmol/L (3.5-5.1); Sodium 134 mmol/L (137-145); Total Bilirubin 0.9 mg/dL (0.2-1.3); Total Protein 5.6 g/dL (6.3-8.2)
--- NOTE | 2023-12-27 11:07 | P.PN ---
Subjective HISTORY OF PRESENT ILLNESS: Patient is a pleasant 78-year-old male with significant past medical history of systolic heart failure, CAD status post CABG, status post TAVR 11/30/2023, type 2 diabetes, dementia, hypertension, hyperlipidemia, BPH, and atrial fibrillation who presented with chest pain and congestion. Patient is a poor historian. Manpreet juan carlos reports that he is just not been feeling well and has had some congestion and a cough. He denies any chest pain or shortness of breath. ECHO from 12/06/2023 showed EF 45-50% and stable bioprosthetic aortic valve. Labs reviewed: Troponin 0.068, 0.063, 0.05 to, WBC elevated 24.4, creatinine 1.29, A1C 9.5, BNP 730. Chest x-ray with no acute findings. 12/25 Heart rate is running in the 80s, blood pressure 143/76, pulse ox 94% on room air. Patient converted to sinus rhythm yesterday afternoon. Patient has been maintained on most of his home cardiac medications in addition to IV antibioti cs. Patient complains of chest pain is but is really in the epigastric area with tenderness. Repeat blood work reveals sodium 130, potassium 3.7, BUN 32 creatinine 1.7. WBC 20.3, hemoglobin 11.7 platelet count 189. December 26, 2023 Patient examined this morning at the bedside. Patient denies chest pain or pressure. Patient denies shortness of breath. Telemetry reveals sinus mechanism. Blood pressure 110/56. He reports right upper quadrant abdominal pain. CT of the abdomen revealed acute cholecystitis. General surgery has been consulted. No surgical intervention recommended at this facility. Plans are underway for transfer to tertiary care center. December 27, 2023 Patient examined this morning at the bedside. Patient denies chest pain or pressure. He denies shortness of breath. He continues to report mild abdominal pain. Plans are underway for transfer to [facility]. PHYSICAL EXAM: VITAL SIGNS: Reviewed. GENERAL: Well-developed in no acute distress. NECK: Supple. No JVD or thyromegaly LUNGS: Respirations even and unlabored. Lungs essentially clear to auscultation bilaterally. HEART: Regular rate and rhythm. S1 and S2 heard. Systolic murmur noted. EXTREMITIES: Normal range of motion. No clubbing or cyanosis. Peripheral pulses intact. No lower extremity edema ASSESSMENT: Epigastric pain Acute cholecystitis Aortic stenosis status post TAVR 11/30/2023 CAD status post CABG Chronic systolic heart failure Type 2 diabetes Dementia Hypertension Hyperlipidemia BPH Atrial fibrillation, paroxysmal Leukocytosis Elevated troponin, chronically elevated Acute kidney injury PLAN: Continue current cardiac medications Patient's anticoagulation was placed on hold per general surgery. Patient is still awaiting a bed at [facility]. Recommend continuing anticoagulation in the meantime as patient is still awaiting bed assignment and transfer to [facility] to reduce stroke risk from a cardiac standpoint. General surgery wishes to still continue to hold Eliquis. Will defer to their service Lasix and lisinopril remain on hold secondary to acute kidney injury No further inpatient recommendations from a cardiac standpoint. We will sign off. Please reconsult if needed. Nurse practitioner note has been reviewed by physician. Signing provider agrees with the documented findings, assessment, and plan of care documented by EGG PROCESSOR as a scribe. Objective - Vital Signs Vital signs: Vital Signs Temp 98.2 F 12/27/23 08:00 Pulse 67 12/27/23 09:40 Resp 18 12/27/23 09:40 BP 133/60 12/27/23 08:00 Pulse Ox 93 L 12/27/23 08:00 FiO2 Intake & Output 12/26/23 12/27/23 12/27/23 18:59 06:59 18:59 Intake Total 658 Output Total 225 225 Balance 658 -225 -225 Weight 105.233 kg 98 kg Intake: Oral 658 Output: Urine 225 225 Other: Voiding Method External Catheter External Catheter External Catheter # Voids 1 1 # Bowel Movements 1 - Labs CBC & Chem 7: 12/27/23 08:54 12/27/23 08:54 Labs: Abnormal Lab Results - Last 24 Hours (Table) 12/26/23 12/26/23 12/26/23 Range/Units 11:39 16:34 19:31 WBC (3.8-10.6) k/uL RDW (11.5-15.5) % Neutrophils # (1.3-7.7) k/uL Lymphocytes # (1.0-4.8) k/uL Monocytes # (0-1.0) k/uL Sodium (137-145) mmol/L Carbon Dioxide (22-30) mmol/L BUN (9-20) mg/dL Creatinine (0.66-1.25) mg/dL Glucose (74-99) mg/dL POC Glucose (mg/dL) 207 H 207 H 217 H (70-110) mg/dL Calcium (8.4-10.2) mg/dL Alkaline Phosphatase (38-126) U/L Total Protein (6.3-8.2) g/dL Albumin (3.5-5.0) g/dL 12/27/23 12/27/23 Range/Units 08:54 08:54 WBC 18.9 H (3.8-10.6) k/uL RDW 16.6 H (11.5-15.5) % Neutrophils # 16.2 H (1.3-7.7) k/uL Lymphocytes # 0.8 L (1.0-4.8) k/uL Monocytes # 1.4 H (0-1.0) k/uL Sodium 134 L (137-145) mmol/L Carbon Dioxide 16 L (22-30) mmol/L BUN 48 H (9-20) mg/dL Creatinine 2.30 H (0.66-1.25) mg/dL Glucose 100 H (74-99) mg/dL POC Glucose (mg/dL) (70-110) mg/dL Calcium 7.7 L (8.4-10.2) mg/dL Alkaline Phosphatase 170 H (38-126) U/L Total Protein 5.6 L (6.3-8.2) g/dL Albumin 2.5 L (3.5-5.0) g/dL Microbiology - Last 24 Hours (Table) 12/23/23 18:01 Blood Culture - Preliminary Blood 12/23/23 18:01 Blood Culture - Preliminary Blood
--- NOTE | 2023-12-27 11:36 | P.PN ---
Subjective Progress Note Date: 12/27/23 Hospital Course: 78-year-old male with history of systolic CHF, CAD status post CABG, status post TAVR, type 2 diabetes, dementia, hypertension, dyslipidemia, BPH, atrial fibrillation presenting with overall not feeling well. In the ED, temperature was 99.3, pulse 82, respiratory rate 18, blood pressure 146/62, saturating at 99% on room air. EKG shows sinus rhythm with first-degree AV block. Chest x- ray shows no acute opacities. WBC 24.4, hemoglobin 12.9, platelet 192, sodium 135, bicarb 17, anion gap 14, BUN 27, creatinine 1.09, total bili 2, ALP 146, troponin 0.068 he was given aspirin, topical nitroglycerin in the ED. Cardiology consulted. Patient admitted for sepsis. CT abdomen pelvis c ompleted, shows evidence of acute cholecystitis. General surgery was consulted. Patient will benefit from cholecystostomy. Transfer to [facility] initiated. Pending bed availability. Remains on IV antibiotics. Subjective: Patient seen and examined at bedside. No acute events overnight. Still complaining of abdominal pain, neck pain is slightly better. Pertinent positives and negatives as discussed above, a complete review of systems was performed and all other systems are negative. Vitals Signs Reviewed. General: nontoxic, no distress, appears at stated age Derm: warm, dry Head: atraumatic, normocephalic, symmetric Eyes: EOMI, no lid lag, anicteric sclera, pupils equal round reactive to light ENT: Nose and ears atraumatic Neck: No thyromegaly, supple, no stiffness Mouth: no lip lesion, mucus membranes moist Cardiovascular: S1S2 reg, no murmur, no edema Lungs: clear to auscultation bilateral, no rhonchi, no rales, no wheeze, no accessory muscle use Abdominal: soft, diffusely tender to palpation, no guarding, no appreciable organomegaly Ext: no gross muscle atrophy, muscle strength muscle strength 5 out of 5 in all 4 extremities, no contractures Neuro: CN II-XII grossly intact Psych: Alert, oriented, appropriate affect Data Reviewed Today: Pertinent Labs: WBC 18.9, hemoglobin 13, sodium 134, creatinine 2.3, blood sugars range between 100-217 Imaging: Echocardiogram shows borderline normal LV systolic function Assessment and Plan: Patient is severely ill, prognosis guarded Sepsis secondary to acute cholecystitis NSTEMI, nonischemic Acute kidney injury on chronic kidney disease, stage III Hyperbilirubinemia Anion gap metabolic acidosis, improving -General surgery following, patient would benefit from cholecystostomy, transfer to [facility] in process, pending bed availability, holding Eliquis -Cardiology following, hold diuretics and lisinopril, amlodipine -Continue aspirin 81 mg, atorvastatin 80 mg -Patient also complaining of neck pain however no neck stiffness, MRI cervical spine pending -Continue IV Zosyn 3.375 g every 8 hours -ID following -Blood cultures no growth to date -Renal function slightly worsened, bladder scan pending, also will get renal ultrasound Type 2 diabetes -Continue to hold Jardiance continue glargine 56 units, and sliding scale insulin, monitor for hypoglycemia Chronic: Systolic CHF, not in exacerbation CAD status post CABG Status post TAVR Dementia Hypertension Dyslipidemia BPH Atrial fibrillation, rate controlled DVT ppx: SCDs Code status: Full code Anticipated discharge place: Transfer to [facility] Anticipated discharge time: Pending bed availability Objective - Vital Signs Vital signs: Vital Signs Temp 98.2 F 12/27/23 08:00 Pulse 67 12/27/23 09:40 Resp 18 12/27/23 09:40 BP 133/60 12/27/23 08:00 Pulse Ox 93 L 12/27/23 08:00 FiO2 Intake & Output 12/26/23 12/27/23 12/27/23 18:59 06:59 18:59 Intake Total 658 Output Total 225 225 Balance 658 -225 -225 Weight 105.233 kg 98 kg Intake: Oral 658 Output: Urine 225 225 Other: Voiding Method External Catheter External Catheter External Catheter # Voids 1 1 # Bowel Movements 1 - Labs CBC & Chem 7: 12/27/23 08:54 12/27/23 08:54 Labs: Abnormal Lab Results - Last 24 Hours (Table) 12/26/23 12/26/23 12/26/23 Range/Units 11:39 16:34 19:31 WBC (3.8-10.6) k/uL RDW (11.5-15.5) % Neutrophils # (1.3-7.7) k/uL Lymphocytes # (1.0-4.8) k/uL Monocytes # (0-1.0) k/uL Sodium (137-145) mmol/L Carbon Dioxide (22-30) mmol/L BUN (9-20) mg/dL Creatinine (0.66-1.25) mg/dL Glucose (74-99) mg/dL POC Glucose (mg/dL) 207 H 207 H 217 H (70-110) mg/dL Calcium (8.4-10.2) mg/dL Alkaline Phosphatase (38-126) U/L Total Protein (6.3-8.2) g/dL Albumin (3.5-5.0) g/dL 12/27/23 12/27/23 Range/Units 08:54 08:54 WBC 18.9 H (3.8-10.6) k/uL RDW 16.6 H (11.5-15.5) % Neutrophils # 16.2 H (1.3-7.7) k/uL Lymphocytes # 0.8 L (1.0-4.8) k/uL Monocytes # 1.4 H (0-1.0) k/uL Sodium 134 L (137-145) mmol/L Carbon Dioxide 16 L (22-30) mmol/L BUN 48 H (9-20) mg/dL Creatinine 2.30 H (0.66-1.25) mg/dL Glucose 100 H (74-99) mg/dL POC Glucose (mg/dL) (70-110) mg/dL Calcium 7.7 L (8.4-10.2) mg/dL Alkaline Phosphatase 170 H (38-126) U/L Total Protein 5.6 L (6.3-8.2) g/dL Albumin 2.5 L (3.5-5.0) g/dL Microbiology - Last 24 Hours (Table) 12/23/23 18:01 Blood Culture - Preliminary Blood 12/23/23 18:01 Blood Culture - Preliminary Blood
[2023-12-27 11:39] LABS: Glucose,Whole Blood 129 mg/dL (70-110)
--- NOTE | 2023-12-27 13:12 | P.PN ---
Subjective Progress Note Date: 12/27/23 Principal diagnosis: Reason for follow-up is fever/cholecystitis Patient is a 78-year-old male with a past medical history significant for diabetes mellitus hypertension hyperlipidemia memory impairment heart failure and coronary disease patient presenting to the hospital for evaluation of chest discomfort, patient also noticed to be febrile did have a CT of abdomen suspicious for cholecystitis. On today's evaluation that is 12/27/2023, the patient remains to be afebrile, patient is currently breathing comfortably on room air, the patient denies chest pain or cough, patient denies any worsening abdominal pain, no nausea no vomiting or any diarrhea. Patient white count of 18.9, creatinine 2.30 blood cultures so far pending Objective - Vital Signs Vital signs: Vital Signs Temp 98.3 F 12/27/23 11:36 Pulse 69 12/27/23 11:36 Resp 18 12/27/23 11:36 BP 128/58 12/27/23 11:36 Pulse Ox 94 L 12/27/23 11:36 FiO2 Intake & Output 12/26/23 12/27/23 12/27/23 18:59 06:59 18:59 Intake Total 658 Output Total 225 225 Balance 658 -225 -225 Weight 105.233 kg 98 kg Intake: Oral 658 Output: Urine 225 225 Other: Voiding Method External Catheter External Catheter External Catheter # Voids 1 1 # Bowel Movements 1 - Exam GENERAL DESCRIPTION: An elderly male lying in bed in no distress RESPIRATORY SYSTEM: Unlabored breathing , decreased breath sounds at bases HEART: S1 S2 regular rate and rhythm , ABDOMEN: Soft , mild tenderness EXTREMITIES: No edema feet - Labs CBC & Chem 7: 12/27/23 08:54 12/27/23 08:54 Labs: Abnormal Lab Results - Last 24 Hours (Table) 12/26/23 12/26/23 12/27/23 Range/Units 16:34 19:31 08:54 WBC 18.9 H (3.8-10.6) k/uL RDW 16.6 H (11.5-15.5) % Neutrophils # 16.2 H (1.3-7.7) k/uL Lymphocytes # 0.8 L (1.0-4.8) k/uL Monocytes # 1.4 H (0-1.0) k/uL Sodium (137-145) mmol/L Carbon Dioxide (22-30) mmol/L BUN (9-20) mg/dL Creatinine (0.66-1.25) mg/dL Glucose (74-99) mg/dL POC Glucose (mg/dL) 207 H 217 H (70-110) mg/dL Calcium (8.4-10.2) mg/dL Alkaline Phosphatase (38-126) U/L Total Protein (6.3-8.2) g/dL Albumin (3.5-5.0) g/dL 12/27/23 12/27/23 Range/Units 08:54 11:35 WBC (3.8-10.6) k/uL RDW (11.5-15.5) % Neutrophils # (1.3-7.7) k/uL Lymphocytes # (1.0-4.8) k/uL Monocytes # (0-1.0) k/uL Sodium 134 L (137-145) mmol/L Carbon Dioxide 16 L (22-30) mmol/L BUN 48 H (9-20) mg/dL Creatinine 2.30 H (0.66-1.25) mg/dL Glucose 100 H (74-99) mg/dL POC Glucose (mg/dL) 129 H (70-110) mg/dL Calcium 7.7 L (8.4-10.2) mg/dL Alkaline Phosphatase 170 H (38-126) U/L Total Protein 5.6 L (6.3-8.2) g/dL Albumin 2.5 L (3.5-5.0) g/dL Microbiology - Last 24 Hours (Table) 12/23/23 18:01 Blood Culture - Preliminary Blood 12/23/23 18:01 Blood Culture - Preliminary Blood Assessment and Plan (1) Sepsis Current Visit: Yes Status: Acute Code(s): A41.9 - SEPSIS, UNSPECIFIED ORGANISM SNOMED Code(s): 20349989 (2) Cholecystitis Current Visit: Yes Status: Acute Code(s): K81.9 - CHOLECYSTITIS, UNSPECIFIED SNOMED Code(s): 01429476 Plan: 1patient with sepsis in this patient initial complaint has been mostly chest pain however the patient did have a right upper quadrant tenderness on examination and did have abnormal CT suspicious for cholecystitis and currently no other obvious focus for his fever with chest x-ray negative for pneumonia urine is negative and no evidence of any cellulitis 2-patient did have resolution of his fever white count is trending down 3-patient is currently covered with Zosyn and awaiting transfer to tertiary care for cholecystotomy tube placement Dictation was produced using [employer] dictation software. please excuse any grammatical, word or spelling errors. Time with Patient: Less than 30
[2023-12-27] MEDS: FUROSEMIDE 10 MG/ML 4 ML VIAL IV STA (14:34)
--- NOTE | 2023-12-27 15:50 | P.PN ---
Subjective Progress Note Date: 12/27/23 CHIEF COMPLAINT: Acute cholecystitis HISTORY OF PRESENT ILLNESS: Patient is more lethargic. He does appear to have of abdominal pain. No nausea or vomiting reported. Oral intake has decreased. Currently on a regular diet. Afebrile. WBC is 18.9 Hgb is 13 platelets 231 sodium is 134 potassium 3.9 creatinine 2.30 PHYSICAL EXAM: VITAL SIGNS: Reviewed. GENERAL: no acute distress. ABDOMEN: Soft. Nondistended. Right upper quadrant tenderness NEUROLOGIC: Lethargic ASSESSMENT: 1. Acute cholecystitis 2. Recent TAVR PLAN: -Patient is still awaiting bed availability to be transferred for interventional radiology to place cholecystostomy tube. Discussed case with medicine service. They have reached out to other hospitals for possible transfer -Downgrade diet to full liquids -Continue antibiotics -Hold Eliquis Physician Trap Setter note has been reviewed by physician. Signing provider agrees with the documented findings, assessment, and plan of care. I have personally seen and examined the patient, reviewed the FHA UNDERWRITER /PAs history, exam and MDM and agree with the assessment and plan as written. Based on total visit time, I have performed more than 50% of the visit. As above: Patient is slightly confused today. White blood cell count remains elevated. Poor oral intake. No IV fluids. Diet was changed to full liquids earlier today. He was still getting Eliquis yesterday last dose 8 PM yesterday. Eliquis has since been held. If anticoagulation needed advise IV heparin. Ap parently no bed available for transfer. Cholecystostomy tube not typically performed by the radiologist on duty here. If no bed available by tomorrow we will reach out to them to see if they would be willing to try placing this to here locally. Continue IV antibiotics. Begin IV fluids. Will follow. Objective - Vital Signs Vital signs: Vital Signs Temp 98.3 F 12/27/23 11:36 Pulse 69 12/27/23 11:36 Resp 18 12/27/23 11:36 BP 128/58 12/27/23 11:36 Pulse Ox 94 L 12/27/23 11:36 FiO2 Intake & Output 12/26/23 12/27/23 12/27/23 18:59 06:59 18:59 Intake Total 658 Output Total 225 225 Balance 658 -225 -225 Weight 105.233 kg 98 kg Intake: Oral 658 Output: Urine 225 225 Other: Voiding Method External Catheter External Catheter External Catheter # Voids 1 1 # Bowel Movements 1 - Labs CBC & Chem 7: 12/27/23 08:54 12/27/23 08:54 Labs: Abnormal Lab Results - Last 24 Hours (Table) 12/26/23 12/26/23 12/27/23 Range/Units 16:34 19:31 08:54 WBC 18.9 H (3.8-10.6) k/uL RDW 16.6 H (11.5-15.5) % Neutrophils # 16.2 H (1.3-7.7) k/uL Lymphocytes # 0.8 L (1.0-4.8) k/uL Monocytes # 1.4 H (0-1.0) k/uL Sodium (137-145) mmol/L Carbon Dioxide (22-30) mmol/L BUN (9-20) mg/dL Creatinine (0.66-1.25) mg/dL Glucose (74-99) mg/dL POC Glucose (mg/dL) 207 H 217 H (70-110) mg/dL Calcium (8.4-10.2) mg/dL Alkaline Phosphatase (38-126) U/L Total Protein (6.3-8.2) g/dL Albumin (3.5-5.0) g/dL 12/27/23 12/27/23 Range/Units 08:54 11:35 WBC (3.8-10.6) k/uL RDW (11.5-15.5) % Neutrophils # (1.3-7.7) k/uL Lymphocytes # (1.0-4.8) k/uL Monocytes # (0-1.0) k/uL Sodium 134 L (137-145) mmol/L Carbon Dioxide 16 L (22-30) mmol/L BUN 48 H (9-20) mg/dL Creatinine 2.30 H (0.66-1.25) mg/dL Glucose 100 H (74-99) mg/dL POC Glucose (mg/dL) 129 H (70-110) mg/dL Calcium 7.7 L (8.4-10.2) mg/dL Alkaline Phosphatase 170 H (38-126) U/L Total Protein 5.6 L (6.3-8.2) g/dL Albumin 2.5 L (3.5-5.0) g/dL Microbiology - Last 24 Hours (Table) 12/23/23 18:01 Blood Culture - Preliminary Blood 12/23/23 18:01 Blood Culture - Preliminary Blood
[2023-12-27 16:33] LABS: Glucose,Whole Blood 189 mg/dL (70-110)
[2023-12-27] MEDS: MORPHINE SULFATE 4 MG/ML SYRINGE IVP STA (20:34)
[2023-12-27 20:35] LABS: Glucose,Whole Blood 144 mg/dL (70-110)
[2023-12-27] MEDS: LACTATED RINGERS 1,000 ML IV SCH (21:48)
[2023-12-27] MEDS: HYDROmorphone 0.5 MG/0.5 ML SYRINGE IVP PRN (22:16)
[2023-12-27] MEDS: ACETAMINOPHEN IV (For NPO) 1,000 MG in EMPTY BAG 1 BAG IVPB SCH (22:17)
[2023-12-28] MEDS: LACTATED RINGERS 500 ML IV SCH ×2 (00:05→01:23)
[2023-12-28] MEDS: HYDROmorphone 0.5 MG/0.5 ML SYRINGE IVP PRN (00:18)
[2023-12-28] MEDS: LACTATED RINGERS 250 ML IV SCH (01:19)
[2023-12-28 06:16] LABS: Glucose,Whole Blood 75 mg/dL (70-110)
[2023-12-28 10:18] LABS: Anisocytosis Slight; Basophils # (A) 0.1 k/uL (0-0.2); Basophils % (A) 0 %; Eosinophils % (A) 0 %; HCT 40.3 % (39.0-53.0); HGB 12.6 gm/dL (13.0-17.5); Hypochromasia Marked; Lymphocytes # (A) 0.6 k/uL (1.0-4.8); Lymphocytes % (A) 3 %; MCH 27.3 pg (25.0-35.0); MCHC 31.2 g/dL (31.0-37.0); MCV 87.4 fL (80.0-100.0); Mean Platelet Volume 7.8; Monocytes # (A) 1.2 k/uL (0-1.0); Monocytes % (A) 5 %; Neutrophils # (A) 20.2 k/uL (1.3-7.7); Neutrophils % (A) 90 %; Platelet Count 240 k/uL (150-450); RBC 4.61 m/uL (4.30-5.90); RDW 16.6 % (11.5-15.5); WBC 22.5 k/uL (3.8-10.6)
[2023-12-28 10:19] LABS: INR 1.2 (<1.2); Prothrombin Time 12.8 sec (10.0-12.5)
--- NOTE | 2023-12-28 10:25 | P.PN ---
Subjective Progress Note Date: 12/28/23 Hospital Course: 78-year-old male with history of systolic CHF, CAD status post CABG, status post TAVR, type 2 diabetes, dementia, hypertension, dyslipidemia, BPH, atrial fibrillation presenting with overall not feeling well. In the ED, temperature was 99.3, pulse 82, respiratory rate 18, blood pressure 146/62, saturating at 99% on room air. EKG shows sinus rhythm with first-degree AV block. Chest x- ray shows no acute opacities. WBC 24.4, hemoglobin 12.9, platelet 192, sodium 135, bicarb 17, anion gap 14, BUN 27, creatinine 1.09, total bili 2, ALP 146, troponin 0.068 he was given aspirin, topical nitroglycerin in the ED. Cardiology consulted. Patient admitted for sepsis. CT abdomen pelvis c ompleted, shows evidence of acute cholecystitis. General surgery was consulted. Patient will benefit from cholecystostomy. Transfer to [facility] initiated. Pending bed availability. Remains on IV antibiotics. Patient may need to go undergo surgical treatment at this facility given further decompensation. He is also now encephalopathic and has nonoliguric SAMANTHA Subjective: Patient seen and examined at bedside. Overnight, patient was more agitated, and confused. Complaining of significant pain, unable to verbalize exactly where he is hurting. Has a Morales catheter in place with very minimal output. Pertinent positives and negatives as discussed above, a complete review of systems was performed and all other systems are negative. Vitals Signs Reviewed. General: nontoxic, in no acute distress, appears at stated age Derm: warm, dry Head: atraumatic, normocephalic, symmetric Eyes: EOMI, no lid lag, anicteric sclera, pupils equal round reactive to light ENT: Nose and ears atraumatic Neck: No thyromegaly, supple, no stiffness Mouth: no lip lesion, mucus membranes moist Cardiovascular: S1S2 reg, no murmur, no edema Lungs: clear to auscultation bilateral, no rhonchi, no rales, no wheeze, no accessory muscle use Abdominal: soft, diffusely tender to palpation, has guarding, no appreciable organomegaly Ext: no gross muscle atrophy, muscle strength muscle strength 5 out of 5 in all 4 extremities, no contractures Neuro: CN II-XII grossly intact Psych: Not oriented, not cooperative Data Reviewed Today: Pertinent Labs: WBC 22.5, hemoglobin 12.6, blood sugars range between 75-1 89, pending CMP will be reviewed when available Imaging: No new imaging Assessment and Plan: Patient is critically ill, prognosis guarded Sepsis secondary to acute cholecystitis NSTEMI, nonischemic Nonoliguric, acute kidney injury on chronic kidney disease, stage III Hyperbilirubinemia Anion gap metabolic acidosis -Discussed management with general surgery, likely get cholecystostomy at this facility, already in talks with IR, holding Eliquis -Did start patient on lactated Ringer's at 50 cc an hour -Cardiology following, hold diuretics and lisinopril, amlodipine -Continue aspirin 81 mg, atorvastatin 80 mg -Continue IV Zosyn 3.375 g every 8 hours -ID following -Blood cultures no growth to date -Patient is now oliguric, has a Morales catheter in place. Dark urine, likely indicative of ATN, nephrology also consulted, patient started on lactated Ringer's, did get a dose of Lasix yesterday without any urine output Type 2 diabetes -Continue to hold Jardiance, glargine decreased to 20 units daily as patient has not eating, and sliding scale insulin, monitor for hypoglycemia Chronic: Systolic CHF, not in exacerbation CAD status post CABG Status post TAVR Dementia Hypertension Dyslipidemia BPH Atrial fibrillation, rate controlled DVT ppx: SCDs Code status: Full code Anticipated discharge place: Pending clinical course Anticipated discharge time: Pending clinical course Objective - Vital Signs Vital signs: Vital Signs Temp 98.3 F 12/28/23 08:00 Pulse 75 12/28/23 08:15 Resp 20 12/28/23 08:15 BP 131/51 12/28/23 08:00 Pulse Ox 91 L 12/28/23 08:00 FiO2 Intake & Output 12/27/23 12/28/23 12/28/23 18:59 06:59 18:59 Intake Total 0 Output Total 275 270 150 Balance -275 -270 -150 Intake: Oral 0 Output: Urine 275 270 150 Straight 50 Other: Voiding Method Urinal Indwelling Catheter Indwelling Catheter Diaper # Voids 1 1 1 - Labs CBC & Chem 7: 12/28/23 08:42 12/27/23 08:54 Labs: Abnormal Lab Results - Last 24 Hours (Table) 0212/27/23 12/27/23 Range/Units 11:35 16:32 20:12 WBC (3.8-10.6) k/uL Hgb (13.0-17.5) gm/dL RDW (11.5-15.5) % Neutrophils # (1.3-7.7) k/uL Lymphocytes # (1.0-4.8) k/uL Monocytes # (0-1.0) k/uL PT (10.0-12.5) sec INR (<1.2) POC Glucose (mg/dL) 129 H 189 H 144 H (70-110) mg/dL 12/28/23 12/28/23 Range/Units 08:42 08:42 WBC 22.5 H (3.8-10.6) k/uL Hgb 12.6 L (13.0-17.5) gm/dL RDW 16.6 H (11.5-15.5) % Neutrophils # 20.2 H (1.3-7.7) k/uL Lymphocytes # 0.6 L (1.0-4.8) k/uL Monocytes # 1.2 H (0-1.0) k/uL PT 12.8 H (10.0-12.5) sec INR 1.2 H (<1.2) POC Glucose (mg/dL) (70-110) mg/dL
[2023-12-28 10:31] LABS: ALT 23 U/L (4-49); AST 67 U/L (17-59); African American GFR (CKD) 26 (>60 ml/min/1.73 sqM); Albumin 2.5 g/dL (3.5-5.0); Alkaline Phosphatase 275 U/L (38-126); Anion Gap 16 mmol/L; Blood Urea Nitrogen 59 mg/dL (9-20); Calcium 7.6 mg/dL (8.4-10.2); Carbon Dioxide 14 mmol/L (22-30); Chloride 107 mmol/L (98-107); Glucose 54 mg/dL (74-99); Non-African American GFR(CKD) 22 (>60 ml/min/1.73 sqM); Sodium 137 mmol/L (137-145); Total Bilirubin 0.9 mg/dL (0.2-1.3); Total Protein 5.5 g/dL (6.3-8.2)
[2023-12-28 10:55] LABS: Potassium 4.3 mmol/L (3.5-5.1)
--- NOTE | 2023-12-28 11:01 | P.NPCON ---
History of Present Illness - Reason for Consult acute renal failure - History of Present Illness Patient is a 78-year-old male with history of coronary artery disease status post CABG, valvular heart disease status post TAVR, type 2 diabetes, hypertension, BPH and A-fib. Patient is admitted to the hospital with weakness, cough. He was noted to be febrile and workup showed possibility of acute cholecystitis. Patient is being followed by general surgery, plans for possible cholecystostomy. Serum creatinine was 1.2 on admission and increased to 2.6 today. Blood pressure has been low with systolic in the 90s. Currently maintained on IV fluids. Patient was maintained on NIVIA inhibitor's which were discontinued on 12/25/2023. Currently with indwelling Morales catheter with poor urine output. Abdominal CT shows no evidence of obstruction. This was performed on 12/25/2023. Echocardiogram showed ejection fraction 50 to 55% with moderate pulmonary hypertension. Patient was agitated overnight and has received Dilaudid Review of Systems As per HPI Past Medical History Past Medical History: Coronary Artery Disease (CAD), Heart Failure, COPD, Dementia, Diabetes Mellitus, GERD/Reflux, Hyperlipidemia, Hypertension, Memory Impairment, Myocardial Infarction ([place]), Neurologic Disorder, Osteoarthritis (OA), Pneumonia, Prostate Disorder, Vascular Disorder Additional Past Medical History / Comment(s): Hx falls and diarrhea/incontinence since diagnosed with Covid Oct 2022, daughter thinks he may have had a minor he art attack when he had Covid as well. 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 PAD. Enlarged prostate. Chronic back pain. Hx bronchitis. Sinus issues. Last Myocardial Infarction Date:: 2014 History of Any Multi-Drug Resistant Organisms: None Reported Past Surgical History: Coronary Bypass/CABG, Orthopedic Surgery Additional Past Surgical History / Comment(s): 2014 CABG 4 vessel/bioprosthetic aortic valve, angiograms, aortagram with bilateral run-offs, PTBA/atherectomy left leg, left foot surgery for crush injury, colonoscopy, bilateral cataract removals. TAVR Oct 2023. Past Anesthesia/Blood Transfusion Reactions: No Reported Reaction Past Psychological History: Anxiety, Depression Smoking Status: Never smoker Past Alcohol Use History: Heavy Past Drug Use History: None Reported - Past Family History Father History Unknown: Yes Family Medical History: Congestive Heart Failure (CHF) Mother History Unknown: Yes Family Medical History: Congestive Heart Failure (CHF) Medications and Allergies Home Medications Medication Instructions Recorded Confirmed Type Omeprazole [PriLOSEC] 20 mg PO DAILY 02/23/15 12/23/23 History Donepezil [Aricept] 10 mg PO HS #30 03/13/15 12/23/23 Rx Tamsulosin HCl [Flomax] 0.4 mg PO DAILY 03/07/17 12/23/23 History Insulin Aspart [NovoLOG Flexpen] See Protocol SQ BID-W/MEALS 11/08/19 12/23/23 History Amitriptyline HCl [Elavil] 25 mg PO HS 03/16/22 12/23/23 History Potassium Chloride ER [K-Dur 10] 10 meq PO HS 03/16/22 12/23/23 History Insulin Glargine,Hum.rec.anlog 56 unit SQ W/LUNCH 04/05/22 12/23/23 History [Lantus Solostar Pen] amLODIPine [Norvasc] 5 mg PO DAILY 02/21/23 12/23/23 History Albuterol Nebulized [Ventolin 2.5 mg INHALATION RT-QID PRN 04/16/23 12/23/23 History Nebulized] Fluticasone Nasal [place] [Flonase 2 spr EA NOSTRIL DAILY PRN 04/16/23 12/23/23 History Nasal [place]] Atorvastatin [Lipitor] 80 mg PO HS 05/11/23 12/23/23 History Cholecalciferol [Vitamin D3 (125 125 mcg PO HS 05/11/23 12/23/23 History Mcg = 5000 Iu)] Furosemide [Lasix] 40 mg PO DAILY 05/11/23 12/23/23 History Empagliflozin [Jardiance] 10 mg PO DAILY 11/23/23 12/23/23 History Acetaminophen Tab [Tylenol] 650 mg PO Q4HR PRN tab 12/01/23 12/23/23 Rx Apixaban [Eliquis] 5 mg PO DIRECTED 12/05/23 12/23/23 History lisinopriL [Zestril] 10 mg PO DAILY #30 tab 12/10/23 12/23/23 Rx Allergies Allergy/AdvReac Type Severity Reaction Status Date / Time No Known Allergies Allergy Verified 12/23/23 11:27 Physical Exam Vitals: Vital Signs Temp Pulse Resp BP BP Pulse Ox 12/28/23 08:15 75 20 12/28/23 08:00 98.3 F 75 20 131/51 91 L 12/28/23 04:16 97.9 F 77 22 108/57 92 L 12/28/23 02:13 97.7 F 65 20 109/55 92 L 12/28/23 02:01 77 22 12/28/23 00:00 98.0 F 72 20 109/44 93 L 12/27/23 21:39 98.3 F 80 20 132/70 93 L 12/27/23 20:01 72 20 12/27/23 20:00 97.2 F L 75 18 115/56 94 L 12/27/23 16:55 95.4 F L 94 20 125/68 94 L 12/27/23 16:40 77 18 112/65 96 12/27/23 15:24 69 18 12/27/23 11:36 98.3 F 69 18 128/58 94 L Intake and Output 12/27/23 12/28/23 12/28/23 22:59 06:59 14:59 Intake Total 0 Output Total 270 150 Balance 0 -270 -150 Intake: Oral 0 Output: Urine 270 150 Other: Voiding Method Diaper Indwelling Catheter Indwelling Catheter # Voids 1 1 Patient is sleeping. He has been shouting out. Moving all 4 extremities. Examination of the heart S1 and S2 Examination of the lungs bilateral breath sounds are heard Abdomen is soft nontender Examination of lower extremities shows no edema Results - Lab Results Most recent lab results Calcium 7.6 mg/dL (8.4-10.2) L 12/28/23 08:42 Magnesium 2.2 mg/dL (1.6-2.3) 12/23/23 12:25 12/28/23 08:42 12/28/23 08:42 Assessment and Plan Assessment: 1. Acute kidney injury, ATN currently oliguric with about 500 mL of urine documented for 24 hours. Maintained on IV fluids. CT of the abdomen shows no evidence of obstruction. UA shows 1+ protein and trace blood. NIVIA inhibitors and Farxiga appropriately on hold. 2. Acute cholecystitis being considered for cholecystostomy. 3. Status post TAVR on 11/30/2023 4. Dementia 5. Anion gap metabolic acidosis associated with acute kidney injury and possible lactic acidosis Plan: Change IV fluids to IV bicarb Continue to avoid nephrotoxic agents Repeat labs in a.m. Continue with antibiotics.
[2023-12-28] MEDS: HYDROmorphone 1 MG/ML 1 ML SYRINGE IVP PRN (11:06)
--- NOTE | 2023-12-28 11:38 | P.PN ---
Subjective Progress Note Date: 12/28/23 Principal diagnosis: Reason for follow-up is fever/cholecystitis Patient is a 78-year-old male with a past medical history significant for diabetes mellitus hypertension hyperlipidemia memory impairment heart failure and coronary disease patient presenting to the hospital for evaluation of chest discomfort, patient also noticed to be febrile did have a CT of abdomen suspicious for cholecystitis. On today's evaluation that is 12/28/2023, the patient is afebrile, patient is on 1 L nasal cannula oxygen the patient restless and did not answer any question no vomiting diarrhea or any other changes reported by the nursing staff. Patient white count is up to 22.5, creatinine is 2.68 blood cultures so far pending Objective - Vital Signs Vital signs: Vital Signs Temp 98.3 F 12/28/23 08:00 Pulse 75 12/28/23 08:15 Resp 20 12/28/23 08:15 BP 131/51 12/28/23 08:00 Pulse Ox 91 L 12/28/23 08:00 FiO2 Intake & Output 12/27/23 12/28/23 12/28/23 18:59 06:59 18:59 Intake Total 0 Output Total 275 270 150 Balance -275 -270 -150 Intake: Oral 0 Output: Urine 275 270 150 Straight 50 Other: Voiding Method Urinal Indwelling Catheter Indwelling Catheter Diaper # Voids 1 1 1 - Exam GENERAL DESCRIPTION: An elderly male lying in bed in no distress RESPIRATORY SYSTEM: Unlabored breathing , decreased breath sounds at bases HEART: S1 S2 regular rate and rhythm , ABDOMEN: Soft , mild tenderness EXTREMITIES: No edema feet - Labs CBC & Chem 7: 12/28/23 08:42 12/28/23 08:42 Labs: Abnormal Lab Results - Last 24 Hours (Table) 12/27/23 12/27/23 12/27/23 Range/Units 11:35 16:32 20:12 WBC (3.8-10.6) k/uL Hgb (13.0-17.5) gm/dL RDW (11.5-15.5) % Neutrophils # (1.3-7.7) k/uL Lymphocytes # (1.0-4.8) k/uL Monocytes # (0-1.0) k/uL PT (10.0-12.5) sec INR (<1.2) Carbon Dioxide (22-30) mmol/L BUN (9-20) mg/dL Creatinine (0.66-1.25) mg/dL Glucose (74-99) mg/dL POC Glucose (mg/dL) 129 H 189 H 144 H (70-110) mg/dL Calcium (8.4-10.2) mg/dL AST (17-59) U/L Alkaline Phosphatase (38-126) U/L Total Protein (6.3-8.2) g/dL Albumin (3.5-5.0) g/dL 12/28/23 12/28/23 12/28/23 Range/Units 08:42 08:42 08:42 WBC 22.5 H (3.8-10.6) k/uL Hgb 12.6 L (13.0-17.5) gm/dL RDW 16.6 H (11.5-15.5) % Neutrophils # 20.2 H (1.3-7.7) k/uL Lymphocytes # 0.6 L (1.0-4.8) k/uL Monocytes # 1.2 H (0-1.0) k/uL PT 12.8 H (10.0-12.5) sec INR 1.2 H (<1.2) Carbon Dioxide 14 L (22-30) mmol/L BUN 59 H (9-20) mg/dL Creatinine 2.68 H (0.66-1.25) mg/dL Glucose 54 L (74-99) mg/dL POC Glucose (mg/dL) (70-110) mg/dL Calcium 7.6 L (8.4-10.2) mg/dL AST 67 H (17-59) U/L Alkaline Phosphatase 275 H (38-126) U/L Total Protein 5.5 L (6.3-8.2) g/dL Albumin 2.5 L (3.5-5.0) g/dL Assessment and Plan (1) Sepsis Current Visit: Yes Status: Acute Code(s): A41.9 - SEPSIS, UNSPECIFIED [facility] SNOMED Code(s): 70648397 (2) Cholecystitis Current Visit: Yes Status: Acute Code(s): K81.9 - CHOLECYSTITIS, UNSPECIFIED SNOMED Code(s): 26661171 Plan: 1patient with sepsis in this patient initial complaint has been mostly chest pain however the patient did have a right upper quadrant tenderness on examination and did have abnormal CT suspicious for cholecystitis and currently no other obvious focus for his fever with chest x-ray negative for pneumonia urine is negative and no evidence of any cellulitis 2-patient did have resolution of his fever however the patient noticed to have slight worsening of the white count did need to monitor closely 3-we will continue patient on Zosyn currently waiting for transfer to tertiary care for cholecystotomy tube placement Dictation was produced using [employer] dictation software. please excuse any grammatical, word or spelling errors. Time with Patient: Less than 30
[2023-12-28 11:53] LABS: Glucose,Whole Blood 82 mg/dL (70-110)
[2023-12-28] MEDS ORDERED: ETOMIDATE 2 MG/ML 10 ML VIAL ONE (12:10)
[2023-12-28] MEDS ORDERED: MIDAZOLAM 2 MG/2 ML VIAL ONE (12:10)
--- NOTE | 2023-12-28 13:06 | CT ---
EXAMINATION TYPE: CT cholecystostomy percutaneous DATE OF EXAM: 12/28/2023 12:53 PM CLINICAL INDICATION:Male, 78 years old with history of drainage tube placement; COMPARISON: CT 12/25/2023. TECHNIQUE: CT DLP: 1351 mGycm, Automated exposure control for dose reduction was used. Contrast used: mL of , none Oral contrast used: none ATTENDING: Dr. Jacobs ANESTHESIA: Provided by the department of anesthesia. One or more CT dose reduction strategies were u tilized during this examination. The DLP administered was 1351 mGycm. Informed consent was obtained from patient. Patient was brought to the CT fluoroscopy procedure suit e and placed in the supine position upon the table. The upper right chest was scanned without contra st. The gallbladder was localized utilizing route through the right lobe liver. The skin over the proced ure site was marked, prepped, and draped in usual sterile fashion. The site was then locally anesthe tized with 1% lidocaine. Under direct CT fluoroscopic guidance a 18-gauge coaxial needle was then lo calized to the gallbladder. Pigtail 8 Portuguese catheter was placed over wire exchange and bile was eas deena withdrawn from the catheter. CT tube confirmation of location was confirmed. Approximately 10 cc of bile were withdrawn in the CT suite. The tube was then put to gravity drainage. Patient tolerated the procedure well with no immediate complication. Patient was returned to floor i n stable condition. IMPRESSION: Successful CT guided percutaneous cholecystostomy.
[2023-12-28] MEDS: DEXTROSE 5% IN WATER 1,000 ML with SODIUM BICARB (1 MEQ/ML) 150 ML IV SCH (14:13)
--- NOTE | 2023-12-28 15:26 | P.PN ---
Subjective Progress Note Date: 12/28/23 CHIEF COMPLAINT: Acute cholecystitis HISTORY OF PRESENT ILLNESS: Patient remains lethargic. He does have pain in the right upper quadrant. He is status post cystostomy tube placement with interventional radiology. Patient did have a low-grade temp of 100.2 WBC 22.5 PHYSICAL EXAM: VITAL SIGNS: Reviewed. GENERAL: no acute distress. ABDOMEN: Soft. Nondistended. Right upper quadrant tenderness NEUROLOGIC: Lethargic ASSESSMENT: 1. Acute cholecystitis 2. Recent TAVR PLAN: -Patient status post cystostomy tube placement by interventional radiology service -Continue antibiotics -Hold Eliquis -IV Tylenol added for pain management Physician Public Relations Supervisor note has been reviewed by physician. Signing provider agrees with the documented findings, assessment, and plan of care. I have personally seen and examined the patient, reviewed the RESCUE WORKER /PAs history, exam and MDM and agree with the assessment and plan as written. Based on total visit time, I have performed more than 50% of the visit. Spoke with interventional radiology this morning. Anesthesia arranged for the procedure. Patient was having confusion again this morning and pain. patient is reacting and appears to be in pain when touching most parts of his body including the abdomen. Reviewed films after cholecystostomy tube. Appears appropriately positioned. Continue antibiotics. Await cultures. Objective - Vital Signs Vital signs: Vital Signs Temp 98.1 F 12/28/23 11:37 Pulse 83 12/28/23 12:15 Resp 20 12/28/23 12:15 BP 128/62 12/28/23 12:15 Pulse Ox 92 L 12/28/23 12:15 FiO2 Intake & Output 12/27/23 12/28/23 12/28/23 18:59 06:59 18:59 Intake Total 0 Output Total 275 270 150 Balance -275 -270 -150 Intake: Oral 0 Output: Urine 275 270 150 Straight 50 Other: Voiding Method Urinal Indwelling Catheter Indwelling Catheter Diaper # Voids 1 1 1 - Labs CBC & Chem 7: 12/28/23 08:42 12/28/23 08:42 Labs: Abnormal Lab Results - Last 24 Hours (Table) 12/27/23 12/27/23 12/28/23 Range/Units 16:32 20:12 08:42 WBC 22.5 H (3.8-10.6) k/uL Hgb 12.6 L (13.0-17.5) gm/dL RDW 16.6 H (11.5-15.5) % Neutrophils # 20.2 H (1.3-7.7) k/uL Lymphocytes # 0.6 L (1.0-4.8) k/uL Monocytes # 1.2 H (0-1.0) k/uL PT (10.0-12.5) sec INR (<1.2) Carbon Dioxide (22-30) mmol/L BUN (9-20) mg/dL Creatinine (0.66-1.25) mg/dL Glucose (74-99) mg/dL POC Glucose (mg/dL) 189 H 144 H (70-110) mg/dL Calcium (8.4-10.2) mg/dL AST (17-59) U/L Alkaline Phosphatase (38-126) U/L Total Protein (6.3-8.2) g/dL Albumin (3.5-5.0) g/dL 12/28/23 12/28/23 Range/Units 08:42 08:42 WBC (3.8-10.6) k/uL Hgb (13.0-17.5) gm/dL RDW (11.5-15.5) % Neutrophils # (1.3-7.7) k/uL Lymphocytes # (1.0-4.8) k/uL Monocytes # (0-1.0) k/uL PT 12.8 H (10.0-12.5) sec INR 1.2 H (<1.2) Carbon Dioxide 14 L (22-30) mmol/L BUN 59 H (9-20) mg/dL Creatinine 2.68 H (0.66-1.25) mg/dL Glucose 54 L (74-99) mg/dL POC Glucose (mg/dL) (70-110) mg/dL Calcium 7.6 L (8.4-10.2) mg/dL AST 67 H (17-59) U/L Alkaline Phosphatase 275 H (38-126) U/L Total Protein 5.5 L (6.3-8.2) g/dL Albumin 2.5 L (3.5-5.0) g/dL
--- NOTE | 2023-12-28 16:12 | CDI ---
Documentation Clarification Form Date: From: Alivia Martinez Phone: [phone] Admit Date: 12/25/2023 01:23:00 PM Patient Name: Tim Coleman Visit Number: [id number] Discharge Date: ATTENTION: The Clinical Documentation Specialists (CDI) and [facility] Coding Staff appreciate your assistance in clarifying documentation. Please respond to the clarification below the line at the bottom and electronically sign. The CDI & [facility] Coding staff will review the response and follow-up if needed. Please note: Queries are made part of the Legal Health Record. If you have any questions, please contact the author of this message via ITS. Dr. Fan Carrillo Encephalopathy / "encephalopathic" is documented in the Progress Note on 12/28. Additional clarification regarding the type of encephalopathy is requested. History/Risk Factors: "78-year-old male with history of systolic CHF, CAD status post CABG, status post TAVR, type 2 diabetes, dementia, hypertension, dyslipidemia, BPH, atrial fibrillation presenting with overall not feeling well. Patient is a poor historian. He claims that over the last 2 days he has been having cough with some sputum production." - Per Medical H&P on 12/23 Clinical Indicators: "He is also now encephalopathic and has nonoliguric SAMANTHA" "patient was more agitated, and confused" "Anion gap metabolic acidosis" - Per Progress Note on 12/28 Labs: Sodium: 12/26 - 136, 12/27 - 134, 12/28 - 137 Carbon Dioxide: 12/26 - 20, 12/27 - 16, 12/28 - 14 Creatinine: 12/26 - 1.68, 12/27 2.30, 12/28 - 2.68 Treatment: "nephrology also consulted, patient started on lactated Ringer's, did get a dose of Lasix yesterday without any urine output" - Per Progress Note on 12/28 Per Nephrology Notes on 12/28 "Change IV fluids to IV bicarb Continue to avoid nephrotoxic agents Repeat labs in a.m." Please clarify the type of encephalopathy, if known: [ x ] Metabolic Encephalopathy [ ] Other, please specify [ ] Unable to determine MTDD
[2023-12-28 17:52] LABS: Glucose,Whole Blood 142 mg/dL (70-110)
[2023-12-28] MEDS: INSULIN DETEMIR (LEVEMIR) 100 UNIT/ML SYR SQ SCH (17:58)
[2023-12-28 19:58] LABS: Glucose,Whole Blood 179 mg/dL (70-110)
[2023-12-29 06:05] LABS: Glucose,Whole Blood 298 mg/dL (70-110)
[2023-12-29 07:48] LABS: Anisocytosis Slight; Basophils # (A) 0.1 k/uL (0-0.2); Basophils % (A) 0 %; Eosinophils # (A) 0.1 k/uL (0-0.7); Eosinophils % (A) 1 %; HCT 36.6 % (39.0-53.0); HGB 11.2 gm/dL (13.0-17.5); Hypochromasia Moderate; Lymphocytes # (A) 0.5 k/uL (1.0-4.8); Lymphocytes % (A) 3 %; MCH 26.6 pg (25.0-35.0); MCHC 30.5 g/dL (31.0-37.0); MCV 87.1 fL (80.0-100.0); Mean Platelet Volume 7.5; Monocytes # (A) 0.7 k/uL (0-1.0); Monocytes % (A) 4 %; Neutrophils # (A) 14.4 k/uL (1.3-7.7); Neutrophils % (A) 91 %; Platelet Count 240 k/uL (150-450); RDW 16.8 % (11.5-15.5); WBC 15.8 k/uL (3.8-10.6)
[2023-12-29 08:03] LABS: ALT 20 U/L (4-49); AST 52 U/L (17-59); African American GFR (CKD) 18 (>60 ml/min/1.73 sqM); Albumin 2.3 g/dL (3.5-5.0); Alkaline Phosphatase 246 U/L (38-126); Anion Gap 18 mmol/L; Blood Urea Nitrogen 68 mg/dL (9-20); Calcium 7.3 mg/dL (8.4-10.2); Carbon Dioxide 17 mmol/L (22-30); Chloride 102 mmol/L (98-107); Glucose 287 mg/dL (74-99); Non-African American GFR(CKD) 16 (>60 ml/min/1.73 sqM); Sodium 137 mmol/L (137-145); Total Bilirubin 0.7 mg/dL (0.2-1.3)
--- NOTE | 2023-12-29 10:37 | P.PN ---
Subjective Patient is seen for follow-up for acute kidney injury. Urine output charted at 550 mL for 24 hours. Patient has an indwelling Morales catheter. Status post CT-guided cholecystostomy performed on 12/28/2023 No hypotension noted Maintained on IV fluids. Serum creatinine increased to 3.5 mg/dL. Objective - Vital Signs Vital signs: Vital Signs Temp 98.7 F 12/29/23 07:17 Pulse 79 12/29/23 08:39 Resp 16 12/29/23 07:17 BP 138/61 12/29/23 07:17 Pulse Ox 91 L 12/29/23 07:44 FiO2 Intake & Output 12/28/23 12/29/23 12/29/23 18:59 06:59 18:59 Intake Total 0 Output Total 270 1075 0 Balance -270 -1075 0 Intake: Oral 0 Output: Drainage 120 675 0 Right Medial Abdomen 120 675 0 Urine 150 400 Other: Voiding Method Indwelling Catheter Indwelling Catheter Indwelling Catheter # Voids 1 # Bowel Movements 0 - Exam Patient is awake, comfortable, no acute distress Examination of the heart S1 and S2 Examination of the lungs decreased breath sounds at the bases Abdomen is soft tender Examination of lower extremity shows no evidence of edema. Mentation seems to be much improved from yesterday. Moving all 4 extremities. - Labs CBC & Chem 7: 12/29/23 06:43 12/29/23 06:43 Labs: Abnormal Lab Results - Last 24 Hours (Table) 12/28/23 12/28/23 12/28/23 Range/Units 08:42 17:50 19:47 WBC (3.8-10.6) k/uL RBC (4.30-5.90) m/uL Hgb (13.0-17.5) gm/dL Hct (39.0-53.0) % MCHC (31.0-37.0) g/dL RDW (11.5-15.5) % Neutrophils # (1.3-7.7) k/uL Lymphocytes # (1.0-4.8) k/uL Carbon Dioxide 14 L (22-30) mmol/L BUN 59 H (9-20) mg/dL Creatinine 2.68 H (0.66-1.25) mg/dL Glucose 54 L (74-99) mg/dL POC Glucose (mg/dL) 142 H 179 H (70-110) mg/dL Calcium 7.6 L (8.4-10.2) mg/dL AST 67 H (17-59) U/L Alkaline Phosphatase 275 H (38-126) U/L Total Protein 5.5 L (6.3-8.2) g/dL Albumin 2.5 L (3.5-5.0) g/dL 12/29/23 12/29/23 12/29/23 Range/Units 05:50 06:43 06:43 WBC 15.8 H (3.8-10.6) k/uL RBC 4.20 L (4.30-5.90) m/uL Hgb 11.2 L (13.0-17.5) gm/dL Hct 36.6 L (39.0-53.0) % MCHC 30.5 L (31.0-37.0) g/dL RDW 16.8 H (11.5-15.5) % Neutrophils # 14.4 H (1.3-7.7) k/uL Lymphocytes # 0.5 L (1.0-4.8) k/uL Carbon Dioxide 17 L (22-30) mmol/L BUN 68 H (9-20) mg/dL Creatinine 3.51 H (0.66-1.25) mg/dL Glucose 287 H (74-99) mg/dL POC Glucose (mg/dL) 298 H (70-110) mg/dL Calcium 7.3 L (8.4-10.2) mg/dL AST (17-59) U/L Alkaline Phosphatase 246 H (38-126) U/L Total Protein 5.0 L (6.3-8.2) g/dL Albumin 2.3 L (3.5-5.0) g/dL Microbiology - Last 24 Hours (Table) 12/23/23 18:01 Blood Culture - Final Blood 12/23/23 18:01 Blood Culture - Final Blood 12/28/23 13:13 Gram Stain - Preliminary Aspirate Assessment and Plan Assessment: 1. Acute kidney injury, ATN currently oliguric with about 500 mL of urine documented for 24 hours. Maintained on IV fluids. CT of the abdomen shows no evidence of obstruction. UA shows 1+ protein and trace blood. NIVIA inhibitors and Farxiga appropriately on hold. 2. Acute cholecystitis status post CT-guided cholecystostomy on 12/28/2023 3. Status post TAVR on 11/30/2023 4. Dementia 5. Anion gap metabolic acidosis associated with acute kidney injury and possible lactic acidosis Plan: Continue IV bicarb Continue to avoid nephrotoxic agents Repeat labs in a.m. Continue with antibiotics.
[2023-12-29 11:28] LABS: Glucose,Whole Blood 298 mg/dL (70-110)
--- NOTE | 2023-12-29 13:46 | P.PN ---
Subjective Progress Note Date: 12/29/23 Hospital Course: 78-year-old male with history of systolic CHF, CAD status post CABG, status post TAVR, type 2 diabetes, dementia, hypertension, dyslipidemia, BPH, atrial fibrillation presenting with overall not feeling well. In the ED, temperature was 99.3, pulse 82, respiratory rate 18, blood pressure 146/62, saturating at 99% on room air. EKG shows sinus rhythm with first-degree AV block. Chest x- ray shows no acute opacities. WBC 24.4, hemoglobin 12.9, platelet 192, sodium 135, bicarb 17, anion gap 14, BUN 27, creatinine 1.09, total bili 2, ALP 146, troponin 0.068 he was given aspirin, topical nitroglycerin in the ED. Cardiology consulted. Patient admitted for sepsis. CT abdomen pelvis c ompleted, shows evidence of acute cholecystitis. General surgery was consulted. Patient will benefit from cholecystostomy. Transfer to [facility] and [facility] initiated. Pending bed availability. Remains on IV antibiotics. Patient may need to go undergo surgical treatment at this facility given further decompensation. He is also now encephalopathic and has nonoliguric SAMANTHA. Subjective: Patient seen and examined at bedside. Less agitation. Still having significant abdominal pain. Morales catheter in place with very minimal output. Pertinent positives and negatives as discussed above, a complete review of systems was performed and all other systems are negative. Vitals Signs Reviewed. General: nontoxic, in mild acute distress, appears at stated age Derm: warm, dry Head: atraumatic, normocephalic, symmetric Eyes: EOMI, no lid lag, anicteric sclera, pupils equal round reactive to light ENT: Nose and ears atraumatic Neck: No thyromegaly, supple, no stiffness Mouth: no lip lesion, mucus membranes moist Cardiovascular: S1S2 reg, no murmur, no edema Lungs: clear to auscultation bilateral, no rhonchi, no rales, no wheeze, no accessory muscle use Abdominal: soft, diffusely tender to palpation, has guarding, no appreciable organomegaly, drain in place Ext: no gross muscle atrophy, muscle strength muscle strength 5 out of 5 in all 4 extremities, no contractures Neuro: CN II-XII grossly intact Psych: Oriented x 1, not cooperative Data Reviewed Today: Pertinent Labs: WBC 15.8, hemoglobin 11.2, creatinine 3.51, blood sugars range between 1 79-2 98 Imaging: No new imaging Assessment and Plan: Patient is critically ill, prognosis guarded Sepsis secondary to acute cholecystitis, status post cholecystostomy NSTEMI, nonischemic Oliguric, acute kidney injury on chronic kidney disease, stage III, likely secondary to ATN Hyperbilirubinemia Anion gap metabolic acidosis -General surgery following, patient remains n.p.o., status post cholecystostomy, Eliquis still on hold -Discussed management with nephrology, continue D5 water sodium bicarb at 80 cc an hour -Cardiology following, hold diuretics and lisinopril, amlodipine -Continue aspirin 81 mg, atorvastatin 80 mg -Continue IV Zosyn 3.375 g every 8 hours -ID following -Blood cultures no growth to date Type 2 diabetes -Glargine increased back up to 40 units, continue sliding scale insulin, monitor for hypoglycemia Chronic: Systolic CHF, not in exacerbation CAD status post CABG Status post TAVR Dementia Hypertension Dyslipidemia BPH Atrial fibrillation, rate controlled DVT ppx: SCDs Code status: Full code Anticipated discharge place: Pending clinical course Anticipated discharge time: Pending clinical course Objective - Vital Signs Vital signs: Vital Signs Temp 97.8 F 12/29/23 12:09 Pulse 76 12/29/23 13:22 Resp 18 12/29/23 12:09 BP 133/60 12/29/23 12:09 Pulse Ox 93 L 12/29/23 12:09 FiO2 Intake & Output 12/28/23 12/29/23 12/29/23 18:59 06:59 18:59 Intake Total 0 Output Total 270 1075 25 Balance -270 -1075 -25 Intake: Oral 0 Output: Drainage 120 675 25 Right Medial Abdomen 120 675 25 Urine 150 400 Other: Voiding Method Indwelling Catheter Indwelling Catheter Indwelling Catheter # Voids 1 # Bowel Movements 0 - Labs CBC & Chem 7: 12/29/23 06:43 12/29/23 06:43 Labs: Abnormal Lab Results - Last 24 Hours (Table) 12/28/23 12/28/23 12/29/23 Range/Units 17:50 19:47 05:50 WBC (3.8-10.6) k/uL RBC (4.30-5.90) m/uL Hgb (13.0-17.5) gm/dL Hct (39.0-53.0) % MCHC (31.0-37.0) g/dL RDW (11.5-15.5) % Neutrophils # (1.3-7.7) k/uL Lymphocytes # (1.0-4.8) k/uL Carbon Dioxide (22-30) mmol/L BUN (9-20) mg/dL Creatinine (0.66-1.25) mg/dL Glucose (74-99) mg/dL POC Glucose (mg/dL) 142 H 179 H 298 H (70-110) mg/dL Calcium (8.4-10.2) mg/dL Alkaline Phosphatase (38-126) U/L Total Protein (6.3-8.2) g/dL Albumin (3.5-5.0) g/dL 12/29/23 12/29/23 12/29/23 Range/Units 06:43 06:43 11:27 WBC 15.8 H (3.8-10.6) k/uL RBC 4.20 L (4.30-5.90) m/uL Hgb 11.2 L (13.0-17.5) gm/dL Hct 36.6 L (39.0-53.0) % MCHC 30.5 L (31.0-37.0) g/dL RDW 16.8 H (11.5-15.5) % Neutrophils # 14.4 H (1.3-7.7) k/uL Lymphocytes # 0.5 L (1.0-4.8) k/uL Carbon Dioxide 17 L (22-30) mmol/L BUN 68 H (9-20) mg/dL Creatinine 3.51 H (0.66-1.25) mg/dL Glucose 287 H (74-99) mg/dL POC Glucose (mg/dL) 298 H (70-110) mg/dL Calcium 7.3 L (8.4-10.2) mg/dL Alkaline Phosphatase 246 H (38-126) U/L Total Protein 5.0 L (6.3-8.2) g/dL Albumin 2.3 L (3.5-5.0) g/dL Microbiology - Last 24 Hours (Table) 12/28/23 13:13 Gram Stain - Preliminary Aspirate Body Fluid Culture - Preliminary 12/23/23 18:01 Blood Culture - Final Blood 12/23/23 18:01 Blood Culture - Final Blood
[2023-12-29] MEDS: INSULIN DETEMIR (LEVEMIR) 100 UNIT/ML SYR SQ ONE (13:58)
--- NOTE | 2023-12-29 16:01 | P.PN ---
Subjective Progress Note Date: 12/29/23 Principal diagnosis: Reason for follow-up is fever/cholecystitis Patient is a 78-year-old male with a past medical history significant for diabetes mellitus hypertension hyperlipidemia memory impairment heart failure and coronary disease patient presenting to the hospital for evaluation of chest discomfort, patient also noticed to be febrile did have a CT of abdomen suspicious for cholecystitis. On today's evaluation that is 12/29/2023, the patient remains to be afebrile, patient is currently breathing comfortably on 2 L nasal cannula oxygen the patient not a very good historian has been complaining of pain all over no vomiting or diarrhea has been reported. Patient white count is down to 15.8, creatinine is 3.51 cultures so far negative Objective - Vital Signs Vital signs: Vital Signs Temp 98.2 F 12/29/23 15:13 Pulse 77 12/29/23 15:13 Resp 20 12/29/23 15:13 BP 130/79 12/29/23 15:13 Pulse Ox 91 L 12/29/23 15:13 FiO2 Intake & Output 12/28/23 12/29/23 12/29/23 18:59 06:59 18:59 Intake Total 0 Output Total 270 1075 500 Balance -270 -1075 -500 Intake: Oral 0 Output: Drainage 120 675 125 Right Medial Abdomen 120 675 125 Urine 150 400 375 Other: Voiding Method Indwelling Catheter Indwelling Catheter Indwelling Catheter # Voids 1 # Bowel Movements 0 - Exam GENERAL DESCRIPTION: An elderly male lying in bed in no distress RESPIRATORY SYSTEM: Unlabored breathing , decreased breath sounds at bases HEART: S1 S2 regular rate and rhythm , ABDOMEN: Soft , mild tenderness EXTREMITIES: No edema feet - Labs CBC & Chem 7: 12/29/23 06:43 12/29/23 06:43 Labs: Abnormal Lab Results - Last 24 Hours (Table) 12/28/23 12/28/23 12/29/23 Range/Units 17:50 19:47 05:50 WBC (3.8-10.6) k/uL RBC (4.30-5.90) m/uL Hgb (13.0-17.5) gm/dL Hct (39.0-53.0) % MCHC (31.0-37.0) g/dL RDW (11.5-15.5) % Neutrophils # (1.3-7.7) k/uL Lymphocytes # (1.0-4.8) k/uL Carbon Dioxide (22-30) mmol/L BUN (9-20) mg/dL Creatinine (0.66-1.25) mg/dL Glucose (74-99) mg/dL POC Glucose (mg/dL) 142 H 179 H 298 H (70-110) mg/dL Calcium (8.4-10.2) mg/dL Alkaline Phosphatase (38-126) U/L Total Protein (6.3-8.2) g/dL Albumin (3.5-5.0) g/dL 12/29/23 12/29/23 12/29/23 Range/Units 06:43 06:43 11:27 WBC 15.8 H (3.8-10.6) k/uL RBC 4.20 L (4.30-5.90) m/uL Hgb 11.2 L (13.0-17.5) gm/dL Hct 36.6 L (39.0-53.0) % MCHC 30.5 L (31.0-37.0) g/dL RDW 16.8 H (11.5-15.5) % Neutrophils # 14.4 H (1.3-7.7) k/uL Lymphocytes # 0.5 L (1.0-4.8) k/uL Carbon Dioxide 17 L (22-30) mmol/L BUN 68 H (9-20) mg/dL Creatinine 3.51 H (0.66-1.25) mg/dL Glucose 287 H (74-99) mg/dL POC Glucose (mg/dL) 298 H (70-110) mg/dL Calcium 7.3 L (8.4-10.2) mg/dL Alkaline Phosphatase 246 H (38-126) U/L Total Protein 5.0 L (6.3-8.2) g/dL Albumin 2.3 L (3.5-5.0) g/dL Microbiology - Last 24 Hours (Table) 12/28/23 13:13 Gram Stain - Preliminary Aspirate Body Fluid Culture - Preliminary 12/23/23 18:01 Blood Culture - Final Blood 12/23/23 18:01 Blood Culture - Final Blood Assessment and Plan (1) Sepsis Current Visit: Yes Status: Acute Code(s): A41.9 - SEPSIS, UNSPECIFIED ORGANISM SNOMED Code(s): 36756066 (2) Cholecystitis Current Visit: Yes Status: Acute Code(s): K81.9 - CHOLECYSTITIS, UNSPECIFIED SNOMED Code(s): 49681665 Plan: 1patient with sepsis in this patient initial complaint has been mostly chest pain however the patient did have a right upper quadrant tenderness on examination and did have abnormal CT suspicious for cholecystitis and currently no other obvious focus for his fever with chest x-ray negative for pneumonia urine is negative and no evidence of any cellulitis 2-patient did have resolution of his fever and the white count is trending down, cultures are so far negative 3-we will continue patient on Zosyn and monitor clinical course closely Dictation was produced using [employer] dictation software. please excuse any grammatical, word or spelling errors. Time with Patient: Less than 30
[2023-12-29 16:53] LABS: Glucose,Whole Blood 332 mg/dL (70-110)
--- NOTE | 2023-12-29 17:23 | P.PN ---
Subjective Progress Note Date: 12/29/23 CHIEF COMPLAINT: Acute cholecystitis HISTORY OF PRESENT ILLNESS: Patient is status post cholecystostomy tube yesterday. There is a small amount of bloody drainage. Patient does appear more comfortable. He seems to be in less pain and is more awake and alert. He did have a low-grade temp of 100.2 yesterday. White count has come down from 22-15 PHYSICAL EXAM: VITAL SIGNS: Reviewed. GENERAL: no acute distress. ABDOMEN: Soft. Nondistended. Mild tenderness right upper quadrant. Cholecystostomy tube in place NEUROLOGIC: Lethargic ASSESSMENT: 1. Acute cholecystitis 2. Recent TAVR PLAN: -Patient status post cholecystostomy tube placement by interventional radiology service -Continue antibiotics -Hold Eliquis -Resume low-fat diet Physician Assistant Professor Of Biology note has been reviewed by physician. Signing provider agrees with the documented findings, assessment, and plan of care. I have personally seen and examined the patient, reviewed the CRITICAL CARE PHYSICIAN /PAs history, exam and MDM and agree with the assessment and plan as written. Based on total visit time, I have performed more than 50% of the visit. As above: Patient clinically improved however still agitated and somewhat delirious. Says his pain is better. Still mildly tender in the abdomen however all 4 quadrants and also tender on his extremities. Cholecystostomy tube milked at bedside. Predominantly sanguinous fluid. Cultures negative thus far. Keep cholecystostomy tube in place. Continue antibiotics. Follow cultures. Objective - Vital Signs Vital signs: Vital Signs Temp 98.2 F 12/29/23 15:13 Pulse 77 12/29/23 15:13 Resp 20 12/29/23 15:13 BP 130/79 12/29/23 15:13 Pulse Ox 91 L 12/29/23 15:13 FiO2 Intake & Output 12/28/23 12/29/23 12/29/23 18:59 06:59 18:59 Intake Total 0 Output Total 270 1075 500 Balance -270 -1075 -500 Intake: Oral 0 Output: Drainage 120 675 125 Right Medial Abdomen 120 675 125 Urine 150 400 375 Other: Voiding Method Indwelling Catheter Indwelling Catheter Indwelling Catheter # Voids 1 0 # Bowel Movements 0 - Labs CBC & Chem 7: 12/29/23 06:43 12/29/23 06:43 Labs: Abnormal Lab Results - Last 24 Hours (Table) 12/28/23 12/28/23 12/29/23 Range/Units 17:50 19:47 05:50 WBC (3.8-10.6) k/uL RBC (4.30-5.90) m/uL Hgb (13.0-17.5) gm/dL Hct (39.0-53.0) % MCHC (31.0-37.0) g/dL RDW (11.5-15.5) % Neutrophils # (1.3-7.7) k/uL Lymphocytes # (1.0-4.8) k/uL Carbon Dioxide (22-30) mmol/L BUN (9-20) mg/dL Creatinine (0.66-1.25) mg/dL Glucose (74-99) mg/dL POC Glucose (mg/dL) 142 H 179 H 298 H (70-110) mg/dL Calcium (8.4-10.2) mg/dL Alkaline Phosphatase (38-126) U/L Total Protein (6.3-8.2) g/dL Albumin (3.5-5.0) g/dL 12/29/23 12/29/23 12/29/23 Range/Units 06:43 06:43 11:27 WBC 15.8 H (3.8-10.6) k/uL RBC 4.20 L (4.30-5.90) m/uL Hgb 11.2 L (13.0-17.5) gm/dL Hct 36.6 L (39.0-53.0) % MCHC 30.5 L (31.0-37.0) g/dL RDW 16.8 H (11.5-15.5) % Neutrophils # 14.4 H (1.3-7.7) k/uL Lymphocytes # 0.5 L (1.0-4.8) k/uL Carbon Dioxide 17 L (22-30) mmol/L BUN 68 H (9-20) mg/dL Creatinine 3.51 H (0.66-1.25) mg/dL Glucose 287 H (74-99) mg/dL POC Glucose (mg/dL) 298 H (70-110) mg/dL Calcium 7.3 L (8.4-10.2) mg/dL Alkaline Phosphatase 246 H (38-126) U/L Total Protein 5.0 L (6.3-8.2) g/dL Albumin 2.3 L (3.5-5.0) g/dL 12/29/23 Range/Units 16:46 WBC (3.8-10.6) k/uL RBC (4.30-5.90) m/uL Hgb (13.0-17.5) gm/dL Hct (39.0-53.0) % MCHC (31.0-37.0) g/dL RDW (11.5-15.5) % Neutrophils # (1.3-7.7) k/uL Lymphocytes # (1.0-4.8) k/uL Carbon Dioxide (22-30) mmol/L BUN (9-20) mg/dL Creatinine (0.66-1.25) mg/dL Glucose (74-99) mg/dL POC Glucose (mg/dL) 332 H (70-110) mg/dL Calcium (8.4-10.2) mg/dL Alkaline Phosphatase (38-126) U/L Total Protein (6.3-8.2) g/dL Albumin (3.5-5.0) g/dL Microbiology - Last 24 Hours (Table) 12/28/23 13:13 Gram Stain - Preliminary Aspirate Body Fluid Culture - Preliminary 12/23/23 18:01 Blood Culture - Final Blood 12/23/23 18:01 Blood Culture - Final Blood
[2023-12-29] MEDS: PIPERACILLIN-TAZOBACTAM 3.375 GM in SODIUM CHLORIDE 0.9% 100 ML IVPB SCH (19:51)
[2023-12-29 20:08] LABS: Glucose,Whole Blood 327 mg/dL (70-110)
[2023-12-30 06:20] LABS: Glucose,Whole Blood 256 mg/dL (70-110)
[2023-12-30 08:26] LABS: Anisocytosis Slight; Basophils % (A) 0 %; Eosinophils # (A) 0.2 k/uL (0-0.7); Eosinophils % (A) 1 %; HCT 36.9 % (39.0-53.0); HGB 11.5 gm/dL (13.0-17.5); Hypochromasia Slight; Lymphocytes # (A) 0.7 k/uL (1.0-4.8); Lymphocytes % (A) 6 %; MCH 26.5 pg (25.0-35.0); MCHC 31.1 g/dL (31.0-37.0); MCV 85.1 fL (80.0-100.0); Mean Platelet Volume 7.6; Monocytes # (A) 0.8 k/uL (0-1.0); Monocytes % (A) 6 %; Neutrophils # (A) 10.8 k/uL (1.3-7.7); Neutrophils % (A) 86 %; Platelet Count 249 k/uL (150-450); RBC 4.33 m/uL (4.30-5.90); RDW 16.9 % (11.5-15.5); WBC 12.6 k/uL (3.8-10.6)
[2023-12-30 08:52] LABS: African American GFR (CKD) 20 (>60 ml/min/1.73 sqM); Anion Gap 10 mmol/L; Blood Urea Nitrogen 83 mg/dL (9-20); Calcium 7.2 mg/dL (8.4-10.2); Carbon Dioxide 28 mmol/L (22-30); Chloride 99 mmol/L (98-107); Glucose 251 mg/dL (74-99); Non-African American GFR(CKD) 17 (>60 ml/min/1.73 sqM); Potassium 3.5 mmol/L (3.5-5.1); Sodium 137 mmol/L (137-145)
--- NOTE | 2023-12-30 10:20 | P.PN ---
Subjective Patient is seen for follow-up for acute kidney injury. Urine output at 875 mL for 24 hours. Patient has an indwelling Morales catheter. Status post CT-guided cholecystostomy performed on 12/28/2023 No hypotension noted Maintained on IV fluids. Serum creatinine decreased to 3.3 mg/dL. Objective - Vital Signs Vital signs: Vital Signs Temp 98.6 F 12/30/23 07:35 Pulse 72 12/30/23 08:00 Resp 18 12/30/23 08:00 BP 145/80 12/30/23 07:35 Pulse Ox 91 L 12/30/23 07:35 FiO2 Intake & Output 12/29/23 12/30/23 12/30/23 18:59 06:59 18:59 Intake Total 20 Output Total 500 580 150 Balance -480 -580 -150 Weight 95.5 kg Intake: Oral 20 Output: Drainage 125 80 150 Right Medial Abdomen 125 80 150 Urine 375 500 Other: Voiding Method Indwelling Catheter Indwelling Catheter Indwelling Catheter # Voids 0 # Bowel Movements 0 - Exam Patient is awake, comfortable, no acute distress Answers simple questions Examination of the heart S1 and S2 Examination of the lungs decreased breath sounds at the bases Abdomen is soft tender Examination of lower extremity shows no evidence of edema. Mentation seems to be much improved. Moving all 4 extremities. - Labs CBC & Chem 7: 12/30/23 06:58 12/30/23 06:58 Labs: Abnormal Lab Results - Last 24 Hours (Table) 12/29/23 12/29/23 12/29/23 Range/Units 11:27 16:46 20:07 WBC (3.8-10.6) k/uL Hgb (13.0-17.5) gm/dL Hct (39.0-53.0) % RDW (11.5-15.5) % Neutrophils # (1.3-7.7) k/uL Lymphocytes # (1.0-4.8) k/uL BUN (9-20) mg/dL Creatinine (0.66-1.25) mg/dL Glucose (74-99) mg/dL POC Glucose (mg/dL) 298 H 332 H 327 H (70-110) mg/dL Calcium (8.4-10.2) mg/dL 12/30/23 12/30/23 12/30/23 Range/Units 06:18 06:58 06:58 WBC 12.6 H (3.8-10.6) k/uL Hgb 11.5 L (13.0-17.5) gm/dL Hct 36.9 L (39.0-53.0) % RDW 16.9 H (11.5-15.5) % Neutrophils # 10.8 H (1.3-7.7) k/uL Lymphocytes # 0.7 L (1.0-4.8) k/uL BUN 83 H (9-20) mg/dL Creatinine 3.31 H (0.66-1.25) mg/dL Glucose 251 H (74-99) mg/dL POC Glucose (mg/dL) 256 H (70-110) mg/dL Calcium 7.2 L (8.4-10.2) mg/dL Microbiology - Last 24 Hours (Table) 12/28/23 13:13 Gram Stain - Preliminary Aspirate Body Fluid Culture - Preliminary Assessment and Plan Assessment: 1. Acute kidney injury, ATN currently nonoliguric with improving urine output. Maintained on IV fluids. CT of the abdomen shows no evidence of obstruction. UA shows 1+ protein and trace blood. NIVIA inhibitors and Farxiga appropriately on hold. 2. Acute cholecystitis status post CT-guided cholecystostomy on 12/28/2023 3. Status post TAVR on 11/30/2023 4. Dementia 5. Anion gap metabolic acidosis associated with acute kidney injury and possible lactic acidosis Plan: Discontinue IV bicarb Switch IV fluids to Ringer lactate Continue to avoid nephrotoxic agents Repeat labs in a.m. Continue with antibiotics.
[2023-12-30 11:30] LABS: Glucose,Whole Blood 257 mg/dL (70-110)
[2023-12-30] MEDS: LACTATED RINGERS 1,000 ML IV SCH (11:34)
[2023-12-30] MEDS: INSULIN DETEMIR (LEVEMIR) 100 UNIT/ML SYR SQ SCH (11:35)
--- NOTE | 2023-12-30 11:39 | P.PN ---
Subjective Progress Note Date: 12/30/23 CHIEF COMPLAINT: Acute cholecystitis HISTORY OF PRESENT ILLNESS: Patient is status post cholecystostomy tube on 12/28/23. There is 150 mL sanguinous output from the cholecystostomy tube. Patient appears more comfortable in bed. Still easily agitated but not as severe. Pain appears less. Afebrile. WBC is down from 15.8-12.6 hemoglobin 11.5 PHYSICAL EXAM: VITAL SIGNS: Reviewed. GENERAL: no acute distress. ABDOMEN: Soft. Nondistended. Nontender. cholecystostomy tube in place NEUROLOGIC: Lethargic ASSESSMENT: 1. Acute cholecystitis status post cholecystostomy tube placement by [facility] 2. Recent TAVR PLAN: -Continue low-fat diet -Continue antibiotics -Hold Eliquis -Follow-up on culture results -Continue supportive care Physician Graphic Design Specialist note has been reviewed by physician. Signing provider agrees with the documented findings, assessment, and plan of care. I have personally seen and examined the patient, reviewed the PERSONNEL GENERALIST MANAGER /PAs history, exam and MDM and agree with the assessment and plan as written. Based on total visit time, I have performed more than 50% of the visit. As above: Patient doing better today. Denies pain currently. Cholecystostomy continuing to drain. White blood cell count improved. Continue diet. Should be able to resume anticoagulation this weekend. Output from drain still somewhat sanguinous. Reevaluate tomorrow. Objective - Vital Signs Vital signs: Vital Signs Temp 98.6 F 12/30/23 07:35 Pulse 72 12/30/23 08:00 Resp 18 12/30/23 08:00 BP 145/80 12/30/23 07:35 Pulse Ox 91 L 12/30/23 07:35 FiO2 Intake & Output 12/29/23 12/30/23 12/30/23 18:59 06:59 18:59 Intake Total 20 Output Total 500 580 150 Balance -480 -580 -150 Weight 95.5 kg Intake: Oral 20 Output: Drainage 125 80 150 Right Medial Abdomen 125 80 150 Urine 375 500 Other: Voiding Method Indwelling Catheter Indwelling Catheter Indwelling Catheter # Voids 0 # Bowel Movements 0 - Labs CBC & Chem 7: 12/30/23 06:58 12/30/23 06:58 Labs: Abnormal Lab Results - Last 24 Hours (Table) 12/29/23 12/29/23 12/30/23 Range/Units 16:46 20:07 06:18 WBC (3.8-10.6) k/uL Hgb (13.0-17.5) gm/dL Hct (39.0-53.0) % RDW (11.5-15.5) % Neutrophils # (1.3-7.7) k/uL Lymphocytes # (1.0-4.8) k/uL BUN (9-20) mg/dL Creatinine (0.66-1.25) mg/dL Glucose (74-99) mg/dL POC Glucose (mg/dL) 332 H 327 H 256 H (70-110) mg/dL Calcium (8.4-10.2) mg/dL 12/30/23 12/30/23 12/30/23 Range/Units 06:58 06:58 11:26 WBC 12.6 H (3.8-10.6) k/uL Hgb 11.5 L (13.0-17.5) gm/dL Hct 36.9 L (39.0-53.0) % RDW 16.9 H (11.5-15.5) % Neutrophils # 10.8 H (1.3-7.7) k/uL Lymphocytes # 0.7 L (1.0-4.8) k/uL BUN 83 H (9-20) mg/dL Creatinine 3.31 H (0.66-1.25) mg/dL Glucose 251 H (74-99) mg/dL POC Glucose (mg/dL) 257 H (70-110) mg/dL Calcium 7.2 L (8.4-10.2) mg/dL Microbiology - Last 24 Hours (Table) 12/28/23 13:13 Gram Stain - Preliminary Aspirate Body Fluid Culture - Preliminary
--- NOTE | 2023-12-30 12:50 | P.PN ---
Subjective Progress Note Date: 12/30/23 Hospital Course: 78-year-old male with history of systolic CHF, CAD status post CABG, status post TAVR, type 2 diabetes, dementia, hypertension, dyslipidemia, BPH, atrial fibrillation presenting with overall not feeling well. In the ED, temperature was 99.3, pulse 82, respiratory rate 18, blood pressure 146/62, saturating at 99% on room air. EKG shows sinus rhythm with first-degree AV block. Chest x- ray shows no acute opacities. WBC 24.4, hemoglobin 12.9, platelet 192, sodium 135, bicarb 17, anion gap 14, BUN 27, creatinine 1.09, total bili 2, ALP 146, troponin 0.068 he was given aspirin, topical nitroglycerin in the ED. Cardiology consulted. Patient admitted for sepsis. CT abdomen pelvis c ompleted, shows evidence of acute cholecystitis. General surgery was consulted. Remains on IV antibiotics. Now status post cholecystostomy. He is also encephalopathic and having oliguric SAMANTHA. Nephrology also consulted. Subjective: Patient seen and examined at bedside. Less agitation. Still having significant abdominal pain. Morales catheter in place with very minimal dark urine output. Pertinent positives and negatives as discussed above, a complete review of systems was performed and all other systems are negative. Vitals Signs Reviewed. General: nontoxic, in mild acute distress, appears at stated age Derm: warm, dry Head: atraumatic, normocephalic, symmetric Eyes: EOMI, no lid lag, anicteric sclera, pupils equal round reactive to light ENT: Nose and ears atraumatic Neck: No thyromegaly, supple, no stiffness Mouth: no lip lesion, mucus membranes moist Cardiovascular: S1S2 reg, no murmur, no edema Lungs: clear to auscultation bilateral, no rhonchi, no rales, no wheeze, no accessory muscle use Abdominal: soft, diffusely tender to palpation, distended and tense, no appr eciable organomegaly, drain in place with serosanguineous fluid Ext: no gross muscle atrophy, muscle strength muscle strength 5 out of 5 in all 4 extremities, no contractures Neuro: CN II-XII grossly intact Psych: Oriented x 1, not cooperative Data Reviewed Today: Pertinent Labs: WBC 12.6, hemoglobin 11.5, creatinine 3.31, blood sugars range between 251-327 Imaging: No new imaging Assessment and Plan: Patient is remains severely ill, prognosis guarded. Sepsis secondary to acute cholecystitis, status post cholecystostomy NSTEMI, nonischemic Oliguric, acute kidney injury on chronic kidney disease, stage III, likely secondary to ATN, resolving Hyperbilirubinemia, resolved Anion gap metabolic acidosis, resolved -General surgery note reviewed, continue low-fat diet, continue antibiotics, continue to hold Eliquis -Discussed management with nephrology, continue lactated Ringer's at 75 cc an hour, renal function slowly improving -Cardiology following, hold diuretics and lisinopril, amlodipine -Continue aspirin 81 mg, atorvastatin 80 mg -Continue IV Zosyn 3.375 g every 8 hours -ID following -Blood cultures no growth to date Type 2 diabetes -Glargine increased back up to 40 units, continue sliding scale insulin, monitor for hypoglycemia Chronic: Systolic CHF, not in exacerbation CAD status post CABG Status post TAVR Dementia Hypertension Dyslipidemia BPH Atrial fibrillation, rate controlled DVT ppx: SCDs Code status: Full code Anticipated discharge place: Pending clinical course Anticipated discharge time: Pending clinical course Objective - Vital Signs Vital signs: Vital Signs Temp 98.1 F 12/30/23 11:26 Pulse 80 12/30/23 12:13 Resp 18 12/30/23 12:13 BP 147/67 12/30/23 11:26 Pulse Ox 92 L 12/30/23 11:26 FiO2 Intake & Output 12/29/23 12/30/23 12/30/23 18:59 06:59 18:59 Intake Total 20 Output Total 500 580 150 Balance -480 -580 -150 Weight 95.5 kg Intake: Oral 20 Output: Drainage 125 80 150 Right Medial Abdomen 125 80 150 Urine 375 500 Other: Voiding Method Indwelling Catheter Indwelling Catheter Indwelling Catheter # Voids 0 # Bowel Movements 0 - Labs CBC & Chem 7: 12/30/23 06:58 12/30/23 06:58 Labs: Abnormal Lab Results - Last 24 Hours (Table) 12/29/23 12/29/23 12/30/23 Range/Units 16:46 20:07 06:18 WBC (3.8-10.6) k/uL Hgb (13.0-17.5) gm/dL Hct (39.0-53.0) % RDW (11.5-15.5) % Neutrophils # (1.3-7.7) k/uL Lymphocytes # (1.0-4.8) k/uL BUN (9-20) mg/dL Creatinine (0.66-1.25) mg/dL Glucose (74-99) mg/dL POC Glucose (mg/dL) 332 H 327 H 256 H (70-110) mg/dL Calcium (8.4-10.2) mg/dL 12/30/23 12/30/23 12/30/23 Range/Units 06:58 06:58 11:26 WBC 12.6 H (3.8-10.6) k/uL Hgb 11.5 L (13.0-17.5) gm/dL Hct 36.9 L (39.0-53.0) % RDW 16.9 H (11.5-15.5) % Neutrophils # 10.8 H (1.3-7.7) k/uL Lymphocytes # 0.7 L (1.0-4.8) k/uL BUN 83 H (9-20) mg/dL Creatinine 3.31 H (0.66-1.25) mg/dL Glucose 251 H (74-99) mg/dL POC Glucose (mg/dL) 257 H (70-110) mg/dL Calcium 7.2 L (8.4-10.2) mg/dL Microbiology - Last 24 Hours (Table) 12/28/23 13:13 Gram Stain - Preliminary Aspirate Body Fluid Culture - Preliminary
--- NOTE | 2023-12-30 15:19 | P.PN ---
Subjective Progress Note Date: 12/30/23 Principal diagnosis: Reason for follow-up is fever/cholecystitis Patient is a 78-year-old male with a past medical history significant for diabetes mellitus hypertension hyperlipidemia memory impairment heart failure and coronary disease patient presenting to the hospital for evaluation of chest discomfort, patient also noticed to be febrile did have a CT of abdomen suspicious for cholecystitis. On today's evaluation that is 12/30/2023, the patient is afebrile, patient is on 2 L nasal cannula oxygen, the patient not a very good historian however when asked specifically denies chest pain shortness of breath or cough, patient denies nausea no vomiting abdominal pain is currently controlled no diarrhea reported. Patient white count is down to 12.6, creatinine 3.31, gallbladder fluid cultures pending Objective - Vital Signs Vital signs: Vital Signs Temp 98.1 F 12/30/23 11:26 Pulse 80 12/30/23 12:13 Resp 18 12/30/23 12:13 BP 147/67 12/30/23 11:26 Pulse Ox 92 L 12/30/23 11:26 FiO2 Intake & Output 12/29/23 12/30/23 12/30/23 18:59 06:59 18:59 Intake Total 20 Output Total 500 580 150 Balance -480 -580 -150 Weight 95.5 kg Intake: Oral 20 Output: Drainage 125 80 150 Right Medial Abdomen 125 80 150 Urine 375 500 Other: Voiding Method Indwelling Catheter Indwelling Catheter Indwelling Catheter # Voids 0 # Bowel Movements 0 - Exam GENERAL DESCRIPTION: An elderly male lying in bed in no distress RESPIRATORY SYSTEM: Unlabored breathing , decreased breath sounds at bases HEART: S1 S2 regular rate and rhythm , ABDOMEN: Soft , mild tenderness EXTREMITIES: No edema feet - Labs CBC & Chem 7: 12/30/23 06:58 12/30/23 06:58 Labs: Abnormal Lab Results - Last 24 Hours (Table) 12/29/23 12/29/23 12/30/23 Range/Units 16:46 20:07 06:18 WBC (3.8-10.6) k/uL Hgb (13.0-17.5) gm/dL Hct (39.0-53.0) % RDW (11.5-15.5) % Neutrophils # (1.3-7.7) k/uL Lymphocytes # (1.0-4.8) k/uL BUN (9-20) mg/dL Creatinine (0.66-1.25) mg/dL Glucose (74-99) mg/dL POC Glucose (mg/dL) 332 H 327 H 256 H (70-110) mg/dL Calcium (8.4-10.2) mg/dL 12/30/23 12/30/23 12/30/23 Range/Units 06:58 06:58 11:26 WBC 12.6 H (3.8-10.6) k/uL Hgb 11.5 L (13.0-17.5) gm/dL Hct 36.9 L (39.0-53.0) % RDW 16.9 H (11.5-15.5) % Neutrophils # 10.8 H (1.3-7.7) k/uL Lymphocytes # 0.7 L (1.0-4.8) k/uL BUN 83 H (9-20) mg/dL Creatinine 3.31 H (0.66-1.25) mg/dL Glucose 251 H (74-99) mg/dL POC Glucose (mg/dL) 257 H (70-110) mg/dL Calcium 7.2 L (8.4-10.2) mg/dL Microbiology - Last 24 Hours (Table) 12/28/23 13:13 Gram Stain - Preliminary Aspirate Body Fluid Culture - Preliminary Assessment and Plan (1) Sepsis Current Visit: Yes Status: Acute Code(s): A41.9 - SEPSIS, UNSPECIFIED ORGANISM SNOMED Code(s): 02537492 (2) Cholecystitis Current Visit: Yes Status: Acute Code(s): K81.9 - CHOLECYSTITIS, UNSPECIFIED SNOMED Code(s): 09663962 Plan: 1patient with sepsis in this patient initial complaint has been mostly chest pain however the patient did have a right upper quadrant tenderness on examination and did have abnormal CT suspicious for cholecystitis and currently no other obvious focus for his fever with chest x-ray negative for pneumonia urine is negative and no evidence of any cellulitis 2-patient did have resolution of his fever and the white count is trending down, gallbladder fluid cultures currently pending 3-patient will continue with Zosyn and monitor clinical course closely Dictation was produced using [employer] software. please excuse any grammatical, word or spelling errors. Time with Patient: Less than 30
[2023-12-30 16:22] LABS: Glucose,Whole Blood 170 mg/dL (70-110)
[2023-12-30 19:57] LABS: Glucose,Whole Blood 174 mg/dL (70-110)
[2023-12-31 06:13] LABS: Glucose,Whole Blood 98 mg/dL (70-110)
[2023-12-31 09:52] LABS: Anisocytosis Slight; Basophils % (A) 0 %; Eosinophils # (A) 0.2 k/uL (0-0.7); Eosinophils % (A) 2 %; HCT 35.1 % (39.0-53.0); HGB 11.3 gm/dL (13.0-17.5); Hypochromasia Slight; Lymphocytes # (A) 0.7 k/uL (1.0-4.8); Lymphocytes % (A) 6 %; MCH 27.3 pg (25.0-35.0); MCHC 32.4 g/dL (31.0-37.0); MCV 84.4 fL (80.0-100.0); Mean Platelet Volume 7.3; Monocytes # (A) 0.7 k/uL (0-1.0); Monocytes % (A) 7 %; Neutrophils % (A) 83 %; Platelet Count 252 k/uL (150-450); RBC 4.16 m/uL (4.30-5.90); RDW 16.6 % (11.5-15.5); WBC 10.8 k/uL (3.8-10.6)
[2023-12-31 10:16] LABS: ALT 16 U/L (4-49); AST 36 U/L (17-59); African American GFR (CKD) 29 (>60 ml/min/1.73 sqM); Albumin 2.4 g/dL (3.5-5.0); Alkaline Phosphatase 166 U/L (38-126); Anion Gap 6 mmol/L; Blood Urea Nitrogen 72 mg/dL (9-20); Calcium 7.2 mg/dL (8.4-10.2); Carbon Dioxide 30 mmol/L (22-30); Chloride 99 mmol/L (98-107); Glucose 195 mg/dL (74-99); Non-African American GFR(CKD) 25 (>60 ml/min/1.73 sqM); Potassium 3.2 mmol/L (3.5-5.1); Sodium 135 mmol/L (137-145); Total Bilirubin 0.7 mg/dL (0.2-1.3); Total Protein 5.4 g/dL (6.3-8.2)
--- NOTE | 2023-12-31 10:29 | P.PN ---
Subjective Patient is seen for follow-up for acute kidney injury. Urine output at 875 mL for 24 hours. Patient has an indwelling Morales catheter. Status post CT-guided cholecystostomy performed on 12/28/2023 Maintained on IV fluids. Mentation is much improved today. Serum creatinine decreased to 2.4 mg/dL. Objective - Vital Signs Vital signs: Vital Signs Temp 97.6 F 12/30/23 20:00 Pulse 94 12/31/23 04:00 Resp 18 12/31/23 04:00 BP 181/65 12/31/23 04:00 Pulse Ox 92 L 12/31/23 07:45 FiO2 Intake & Output 12/30/23 12/31/23 12/31/23 18:59 06:59 18:59 Intake Total 780 225 Output Total 300 225 Balance -300 555 225 Intake: Oral 780 225 Output: Drainage 150 Right Medial Abdomen 150 Urine 150 225 Other: Voiding Method Indwelling Catheter Indwelling Catheter - Exam Patient is awake, comfortable, no acute distress Answers simple questions Examination of the heart S1 and S2 Examination of the lungs decreased breath sounds at the bases Abdomen is soft tender Examination of lower extremity shows no evidence of edema. Mentation seems to be much improved. Moving all 4 extremities. - Labs CBC & Chem 7: 12/31/23 09:18 12/31/23 09:18 Labs: Abnormal Lab Results - Last 24 Hours (Table) 12/30/23 12/30/23 12/30/23 Range/Units 11:26 16:20 19:55 WBC (3.8-10.6) k/uL RBC (4.30-5.90) m/uL Hgb (13.0-17.5) gm/dL Hct (39.0-53.0) % RDW (11.5-15.5) % Neutrophils # (1.3-7.7) k/uL Lymphocytes # (1.0-4.8) k/uL Sodium (137-145) mmol/L Potassium (3.5-5.1) mmol/L BUN (9-20) mg/dL Creatinine (0.66-1.25) mg/dL Glucose (74-99) mg/dL POC Glucose (mg/dL) 257 H 170 H 174 H (70-110) mg/dL Calcium (8.4-10.2) mg/dL Alkaline Phosphatase (38-126) U/L Total Protein (6.3-8.2) g/dL Albumin (3.5-5.0) g/dL 12/31/23 12/31/23 Range/Units 09:18 09:18 WBC 10.8 H (3.8-10.6) k/uL RBC 4.16 L (4.30-5.90) m/uL Hgb 11.3 L (13.0-17.5) gm/dL Hct 35.1 L (39.0-53.0) % RDW 16.6 H (11.5-15.5) % Neutrophils # 9.0 H (1.3-7.7) k/uL Lymphocytes # 0.7 L (1.0-4.8) k/uL Sodium 135 L (137-145) mmol/L Potassium 3.2 L (3.5-5.1) mmol/L BUN 72 H (9-20) mg/dL Creatinine 2.40 H (0.66-1.25) mg/dL Glucose 195 H (74-99) mg/dL POC Glucose (mg/dL) (70-110) mg/dL Calcium 7.2 L (8.4-10.2) mg/dL Alkaline Phosphatase 166 H (38-126) U/L Total Protein 5.4 L (6.3-8.2) g/dL Albumin 2.4 L (3.5-5.0) g/dL Microbiology - Last 24 Hours (Table) 12/28/23 13:13 Gram Stain - Preliminary Aspirate Body Fluid Culture - Preliminary 12/28/23 13:13 Anaerobic Culture - Preliminary Aspirate Assessment and Plan Assessment: 1. Acute kidney injury, ATN currently nonoliguric with improving urine output. Maintained on IV fluids. CT of the abdomen shows no evidence of obstruction. UA shows 1+ protein and trace blood. NIVIA inhibitors and Farxiga appropriately on hold. 2. Acute cholecystitis status post CT-guided cholecystostomy on 12/28/2023 3. Status post TAVR on 11/30/2023 4. Dementia 5. Anion gap metabolic acidosis associated with acute kidney injury and possible lactic acidosis. Status post IV bicarb 6. Hypokalemia associated with decreased intake Plan: Continue Ringer lactate Replace potassium Continue to avoid nephrotoxic agents Repeat labs in a.m. Continue with antibiotics.
[2023-12-31] MEDS: POTASSIUM CHLORIDE ER 20 MEQ TAB.ER PO STA (10:52)
[2023-12-31 11:27] LABS: Glucose,Whole Blood 276 mg/dL (70-110)
--- NOTE | 2023-12-31 11:28 | P.PN ---
Subjective Progress Note Date: 12/31/23 Hospital Course: 78-year-old male with history of systolic CHF, CAD status post CABG, status post TAVR, type 2 diabetes, dementia, hypertension, dyslipidemia, BPH, atrial fibrillation presenting with overall not feeling well. In the ED, temperature was 99.3, pulse 82, respiratory rate 18, blood pressure 146/62, saturating at 99% on room air. EKG shows sinus rhythm with first-degree AV block. Chest x- ray shows no acute opacities. WBC 24.4, hemoglobin 12.9, platelet 192, sodium 135, bicarb 17, anion gap 14, BUN 27, creatinine 1.09, total bili 2, ALP 146, troponin 0.068 he was given aspirin, topical nitroglycerin in the ED. Cardiology consulted. Patient admitted for sepsis. CT abdomen pelvis c ompleted, shows evidence of acute cholecystitis. General surgery was consulted. Remains on IV antibiotics. Now status post cholecystostomy. He is also encephalopathic and having oliguric SAMANTHA. Nephrology also consulted. Subjective: Patient seen and examined at bedside. Pt reports pain is well controlled. Vitals Signs Reviewed. General: nontoxic, in mild acute distress, appears at stated age Derm: warm, dry Head: atraumatic, normocephalic, symmetric Eyes: EOMI, no lid lag, anicteric sclera, pupils equal round reactive to light ENT: Nose and ears atraumatic Neck: No thyromegaly, supple, no stiffness Mouth: no lip lesion, mucus membranes moist Cardiovascular: S1S2 reg, no murmur, no edema Lungs: clear to auscultation bilateral, no rhonchi, no rales, no wheeze, no accessory muscle use Abdominal: soft, diffusely tender to palpation, distended and tense, no appreciable organomegaly, drain in place with serosanguineous fluid Ext: no gross muscle atrophy, muscle strength muscle strength 5 out of 5 in all 4 extremities, no contractures Neuro: CN II-XII grossly intact Psych: Oriented x 1, not cooperative Data Reviewed Today: Pertinent Labs: WBC 12.6, hemoglobin 11.5, creatinine 3.31, blood sugars range between 251-327 Imaging: No new imaging Assessment and Plan: Patient is remains severely ill, prognosis guarded. Sepsis secondary to acute cholecystitis, status post cholecystostomy NSTEMI, nonischemic Oliguric, acute kidney injury on chronic kidney disease, stage III, likely secondary to ATN, resolving Hyperbilirubinemia, resolved Anion gap metabolic acidosis, resolved -General surgery note reviewed, continue low-fat diet, continue antibiotics, continue to hold Eliquis -Nephrology note reviewed, continue lactated Ringer's at 75 cc an hour, renal function slowly improving -Cardiology following, hold diuretics and lisinopril, amlodipine -Continue aspirin 81 mg, atorvastatin 80 mg -Continue IV Zosyn 3.375 g every 8 hours -ID following -Blood cultures no growth to date Type 2 diabetes -Glargine increased back up to 40 units, continue sliding scale insulin, monitor for hypoglycemia Chronic: Systolic CHF, not in exacerbation CAD status post CABG Status post TAVR Dementia Hypertension Dyslipidemia BPH Atrial fibrillation, rate controlled DVT ppx: SCDs Code status: Full code Anticipated discharge place: Pending clinical course Anticipated discharge time: Pending clinical course Objective - Vital Signs Vital signs: Vital Signs Temp 97.6 F 12/30/23 20:00 Pulse 94 12/31/23 04:00 Resp 18 12/31/23 04:00 BP 181/65 12/31/23 04:00 Pulse Ox 92 L 12/31/23 07:45 FiO2 Intake & Output 12/30/23 12/31/23 12/31/23 18:59 06:59 18:59 Intake Total 780 225 Output Total 300 225 Balance -300 555 225 Intake: Oral 780 225 Output: Drainage 150 Right Medial Abdomen 150 Urine 150 225 Other: Voiding Method Indwelling Catheter Indwelling Catheter # Bowel Movements 1 - Labs CBC & Chem 7: 12/31/23 09:18 12/31/23 09:18 Labs: Abnormal Lab Results - Last 24 Hours (Table) 12/30/23 12/30/23 12/30/23 Range/Units 11:26 16:20 19:55 WBC (3.8-10.6) k/uL RBC (4.30-5.90) m/uL Hgb (13.0-17.5) gm/dL Hct (39.0-53.0) % RDW (11.5-15.5) % Neutrophils # (1.3-7.7) k/uL Lymphocytes # (1.0-4.8) k/uL Sodium (137-145) mmol/L Potassium (3.5-5.1) mmol/L BUN (9-20) mg/dL Creatinine (0.66-1.25) mg/dL Glucose (74-99) mg/dL POC Glucose (mg/dL) 257 H 170 H 174 H (70-110) mg/dL Calcium (8.4-10.2) mg/dL Alkaline Phosphatase (38-126) U/L Total Protein (6.3-8.2) g/dL Albumin (3.5-5.0) g/dL 12/31/23 12/31/23 12/31/23 Range/Units 09:18 09:18 11:23 WBC 10.8 H (3.8-10.6) k/uL RBC 4.16 L (4.30-5.90) m/uL Hgb 11.3 L (13.0-17.5) gm/dL Hct 35.1 L (39.0-53.0) % RDW 16.6 H (11.5-15.5) % Neutrophils # 9.0 H (1.3-7.7) k/uL Lymphocytes # 0.7 L (1.0-4.8) k/uL Sodium 135 L (137-145) mmol/L Potassium 3.2 L (3.5-5.1) mmol/L BUN 72 H (9-20) mg/dL Creatinine 2.40 H (0.66-1.25) mg/dL Glucose 195 H (74-99) mg/dL POC Glucose (mg/dL) 276 H (70-110) mg/dL Calcium 7.2 L (8.4-10.2) mg/dL Alkaline Phosphatase 166 H (38-126) U/L Total Protein 5.4 L (6.3-8.2) g/dL Albumin 2.4 L (3.5-5.0) g/dL Microbiology - Last 24 Hours (Table) 12/28/23 13:13 Gram Stain - Preliminary Aspirate Body Fluid Culture - Preliminary 12/28/23 13:13 Anaerobic Culture - Preliminary Aspirate
--- NOTE | 2023-12-31 14:18 | P.PN ---
Subjective Progress Note Date: 12/31/23 Principal diagnosis: Reason for follow-up is fever/cholecystitis Patient is a 78-year-old male with a past medical history significant for diabetes mellitus hypertension hyperlipidemia memory impairment heart failure and coronary disease patient presenting to the hospital for evaluation of chest discomfort, patient also noticed to be febrile did have a CT of abdomen suspicious for cholecystitis. On today's evaluation that is 12/31/2023, the patient denies any fever or any chills, patient is breathing comfortably on 2 L nasal cannula oxygen, the patient sleepy but arousable did not answer any question no vomiting or diarrhea has been reported. Patient white count is down to 10.8, creatinine is 2.40 gallbladder fluid cultures pending Objective - Vital Signs Vital signs: Vital Signs Temp 97.6 F 12/30/23 20:00 Pulse 94 12/31/23 04:00 Resp 18 12/31/23 04:00 BP 181/65 12/31/23 04:00 Pulse Ox 92 L 12/31/23 07:45 FiO2 Intake & Output 12/30/23 12/31/23 12/31/23 18:59 06:59 18:59 Intake Total 780 225 Output Total 300 225 Balance -300 555 225 Intake: Oral 780 225 Output: Drainage 150 Right Medial Abdomen 150 Urine 150 225 Other: Voiding Method Indwelling Catheter Indwelling Catheter # Bowel Movements 1 - Exam GENERAL DESCRIPTION: An elderly male lying in bed in no distress RESPIRATORY SYSTEM: Unlabored breathing , decreased breath sounds at bases HEART: S1 S2 regular rate and rhythm , ABDOMEN: Soft , mild tenderness EXTREMITIES: No edema feet - Labs CBC & Chem 7: 12/31/23 09:18 12/31/23 09:18 Labs: Abnormal Lab Results - Last 24 Hours (Table) 12/30/23 12/30/23 12/31/23 Range/Units 16:20 19:55 09:18 WBC 10.8 H (3.8-10.6) k/uL RBC 4.16 L (4.30-5.90) m/uL Hgb 11.3 L (13.0-17.5) gm/dL Hct 35.1 L (39.0-53.0) % RDW 16.6 H (11.5-15.5) % Neutrophils # 9.0 H (1.3-7.7) k/uL Lymphocytes # 0.7 L (1.0-4.8) k/uL Sodium (137-145) mmol/L Potassium (3.5-5.1) mmol/L BUN (9-20) mg/dL Creatinine (0.66-1.25) mg/dL Glucose (74-99) mg/dL POC Glucose (mg/dL) 170 H 174 H (70-110) mg/dL Calcium (8.4-10.2) mg/dL Alkaline Phosphatase (38-126) U/L Total Protein (6.3-8.2) g/dL Albumin (3.5-5.0) g/dL 12/31/23 12/31/23 Range/Units 09:18 11:23 WBC (3.8-10.6) k/uL RBC (4.30-5.90) m/uL Hgb (13.0-17.5) gm/dL Hct (39.0-53.0) % RDW (11.5-15.5) % Neutrophils # (1.3-7.7) k/uL Lymphocytes # (1.0-4.8) k/uL Sodium 135 L (137-145) mmol/L Potassium 3.2 L (3.5-5.1) mmol/L BUN 72 H (9-20) mg/dL Creatinine 2.40 H (0.66-1.25) mg/dL Glucose 195 H (74-99) mg/dL POC Glucose (mg/dL) 276 H (70-110) mg/dL Calcium 7.2 L (8.4-10.2) mg/dL Alkaline Phosphatase 166 H (38-126) U/L Total Protein 5.4 L (6.3-8.2) g/dL Albumin 2.4 L (3.5-5.0) g/dL Microbiology - Last 24 Hours (Table) 12/28/23 13:13 Gram Stain - Preliminary Aspirate Body Fluid Culture - Preliminary 12/28/23 13:13 Anaerobic Culture - Preliminary Aspirate Assessment and Plan (1) Sepsis Current Visit: Yes Status: Acute Code(s): A41.9 - SEPSIS, UNSPECIFIED ORGANISM SNOMED Code(s): 12515062 (2) Cholecystitis Current Visit: Yes Status: Acute Code(s): K81.9 - CHOLECYSTITIS, UNSPECIFIED SNOMED Code(s): 95621358 Plan: 1patient with sepsis in this patient initial complaint has been mostly chest pain however the patient did have a right upper quadrant tenderness on examination and did have abnormal CT suspicious for cholecystitis and currently no other obvious focus for his fever with chest x-ray negative for pneumonia urine is negative and no evidence of any cellulitis 2-patient did have resolution of his fever and the white count is trending down, gallbladder fluid cultures currently pending 3-patient to continue with the Zosyn while waiting for the culture to finalize and monitor clinical course closely Dictation was produced using [employer] dictation software. please excuse any grammatical, word or spelling errors. Time with Patient: Less than 30
[2023-12-31 16:37] LABS: Glucose,Whole Blood 329 mg/dL (70-110)
[2023-12-31 20:17] LABS: Glucose,Whole Blood 318 mg/dL (70-110)
[2023-12-31] MEDS: hydrALAZINE HCL 50 MG TAB PO STA (23:48)
[2023-12-31] MEDS: MELATONIN 5 MG TABLET PO ONE (23:48)
[2024-01-01 05:48] LABS: Glucose,Whole Blood 116 mg/dL (70-110)
--- NOTE | 2024-01-01 10:46 | P.PN ---
Subjective Progress Note Date: 01/01/24 Hospital Course: 78-year-old male with history of systolic CHF, CAD status post CABG, status post TAVR, type 2 diabetes, dementia, hypertension, dyslipidemia, BPH, atrial fibrillation presenting with overall not feeling well. In the ED, temperature was 99.3, pulse 82, respiratory rate 18, blood pressure 146/62, saturating at 99% on room air. EKG shows sinus rhythm with first-degree AV block. Chest x- ray shows no acute opacities. WBC 24.4, hemoglobin 12.9, platelet 192, sodium 135, bicarb 17, anion gap 14, BUN 27, creatinine 1.09, total bili 2, ALP 146, troponin 0.068 he was given aspirin, topical nitroglycerin in the ED. Cardiology consulted. Patient admitted for sepsis. CT abdomen pelvis c ompleted, shows evidence of acute cholecystitis. General surgery was consulted. Remains on IV antibiotics. Now status post cholecystostomy. He is also encephalopathic and having oliguric SAMANTHA. Nephrology also consulted. Subjective: Patient seen and examined at bedside. Pt reports pain is well controlled. Vitals Signs Reviewed. General: nontoxic, in mild acute distress, appears at stated age Derm: warm, dry Head: atraumatic, normocephalic, symmetric Eyes: EOMI, no lid lag, anicteric sclera, pupils equal round reactive to light ENT: Nose and ears atraumatic Neck: No thyromegaly, supple, no stiffness Mouth: no lip lesion, mucus membranes moist Cardiovascular: S1S2 reg, no murmur, no edema Lungs: clear to auscultation bilateral, no rhonchi, no rales, no wheeze, no accessory muscle use Abdominal: soft, diffusely tender to palpation, distended and tense, no appreciable organomegaly, drain in place with serosanguineous fluid Ext: no gross muscle atrophy, muscle strength muscle strength 5 out of 5 in all 4 extremities, no contractures Neuro: CN II-XII grossly intact Psych: Oriented x 1, not cooperative Data Reviewed Today: Pertinent Labs: WBC 12.6, hemoglobin 11.5, creatinine 3.31, blood sugars range between 251-327 Imaging: No new imaging Assessment and Plan: Patient is remains severely ill, prognosis guarded. Sepsis secondary to acute cholecystitis, status post cholecystostomy NSTEMI, nonischemic Oliguric, acute kidney injury on chronic kidney disease, stage III, likely secondary to ATN, resolving Hyperbilirubinemia, resolved Anion gap metabolic acidosis, resolved -General surgery note reviewed, continue low-fat diet, continue antibiotics, continue to hold Eliquis -Nephrology consult appreciated -consider lowering or stopping IVF if patient develops worsening dyspnea/orthopnea -Cardiology following, hold diuretics and lisinopril, amlodipine -Continue aspirin 81 mg, atorvastatin 80 mg -Continue IV Zosyn 3.375 g every 8 hours -ID following -Blood cultures no growth to date Type 2 diabetes -Glargine increased back up to 40 units, continue sliding scale insulin, monitor for hypoglycemia Chronic: Systolic CHF, not in exacerbation CAD status post CABG Status post TAVR Dementia Hypertension Dyslipidemia BPH Atrial fibrillation, rate controlled DVT ppx: SCDs Code status: Full code Anticipated discharge place: Pending clinical course Anticipated discharge time: Pending clinical course Objective - Vital Signs Vital signs: Vital Signs Temp 97.7 F 12/31/23 20:00 Pulse 71 01/01/24 03:38 Resp 16 01/01/24 03:38 BP 119/71 01/01/24 03:38 Pulse Ox 98 01/01/24 03:38 FiO2 Intake & Output 12/31/23 01/01/24 01/01/24 18:59 06:59 18:59 Intake Total 335 110 Output Total 910 1240 Balance -575 -1240 110 Intake: Oral 335 110 Output: Drainage 200 Right Medial Abdomen 200 Urine 710 1240 Other: Voiding Method Indwelling Catheter Indwelling Catheter # Bowel Movements 1 1 - Labs CBC & Chem 7: 12/31/23 09:18 12/31/23 09:18 Labs: Abnormal Lab Results - Last 24 Hours (Table) 12/31/23 12/31/23 12/31/23 Range/Units 11:23 16:35 20:15 POC Glucose (mg/dL) 276 H 329 H 318 H (70-110) mg/dL 01/01/24 Range/Units 05:47 POC Glucose (mg/dL) 116 H (70-110) mg/dL Microbiology - Last 24 Hours (Table) 12/28/23 13:13 Gram Stain - Final Aspirate Body Fluid Culture - Final
--- NOTE | 2024-01-01 11:06 | P.PN ---
Subjective Progress Note Date: 01/01/24 Patient feels better. He has no complaints of abdominal pain. On exam vital signs appear stable. Abdomen is soft there is no significant tenderness today. Objective - Vital Signs Vital signs: Vital Signs Temp 98.5 F 01/01/24 07:40 Pulse 65 01/01/24 07:40 Resp 16 01/01/24 07:40 BP 165/74 01/01/24 07:40 Pulse Ox 98 01/01/24 07:40 FiO2 Intake & Output 12/31/23 01/01/24 01/01/24 18:59 06:59 18:59 Intake Total 335 110 Output Total 910 1240 Balance -575 -1240 110 Intake: Oral 335 110 Output: Drainage 200 Right Medial Abdomen 200 Urine 710 1240 Other: Voiding Method Indwelling Catheter Indwelling Catheter Indwelling Catheter # Bowel Movements 1 1 - Labs CBC & Chem 7: 12/31/23 09:18 12/31/23 09:18 Labs: Abnormal Lab Results - Last 24 Hours (Table) 12/31/23 12/31/23 12/31/23 Range/Units 11:23 16:35 20:15 POC Glucose (mg/dL) 276 H 329 H 318 H (70-110) mg/dL 01/01/24 Range/Units 05:47 POC Glucose (mg/dL) 116 H (70-110) mg/dL Microbiology - Last 24 Hours (Table) 12/28/23 13:13 Gram Stain - Final Aspirate Body Fluid Culture - Final
--- NOTE | 2024-01-01 11:12 | P.PN ---
Subjective Patient is seen for follow-up for acute kidney injury. Urine output at 1950 mL for 24 hours. Patient has an indwelling Morales catheter. Status post CT-guided cholecystostomy performed on 12/28/2023 Maintained on IV fluids. Serum creatinine decreased to 2.4 mg/dL. labs are pending from today Objective - Vital Signs Vital signs: Vital Signs Temp 98.5 F 01/01/24 07:40 Pulse 65 01/01/24 07:40 Resp 16 01/01/24 07:40 BP 165/74 01/01/24 07:40 Pulse Ox 98 01/01/24 07:40 FiO2 Intake & Output 12/31/23 01/01/24 01/01/24 18:59 06:59 18:59 Intake Total 335 110 Output Total 910 1240 Balance -575 -1240 110 Intake: Oral 335 110 Output: Drainage 200 Right Medial Abdomen 200 Urine 710 1240 Other: Voiding Method Indwelling Catheter Indwelling Catheter Indwelling Catheter # Bowel Movements 1 1 - Exam Patient is awake, comfortable, no acute distress Answers simple questions Examination of the heart S1 and S2 Examination of the lungs decreased breath sounds at the bases Abdomen is soft tender Examination of lower extremity shows no evidence of edema. Mentation seems to be much improved. Moving all 4 extremities. - Labs CBC & Chem 7: 12/31/23 09:18 12/31/23 09:18 Labs: Abnormal Lab Results - Last 24 Hours (Table) 12/31/23 12/31/23 12/31/23 Range/Units 11:23 16:35 20:15 POC Glucose (mg/dL) 276 H 329 H 318 H (70-110) mg/dL 01/01/24 Range/Units 05:47 POC Glucose (mg/dL) 116 H (70-110) mg/dL Microbiology - Last 24 Hours (Table) 12/28/23 13:13 Gram Stain - Final Aspirate Body Fluid Culture - Final Assessment and Plan Assessment: 1. Acute kidney injury, ATN currently nonoliguric with improving urine output. Maintained on IV fluids. CT of the abdomen shows no evidence of obstruction. UA shows 1+ protein and trace blood. NIVIA inhibitors and Farxiga appropriately on hold. 2. Acute cholecystitis status post CT-guided cholecystostomy on 12/28/2023 3. Status post TAVR on 11/30/2023 4. Dementia 5. Anion gap metabolic acidosis associated with acute kidney injury and p ossible lactic acidosis. Status post IV bicarb 6. Hypokalemia associated with decreased intake Plan: Continue Ringer lactate. Decrease rate to 50 ML per hour Continue to avoid nephrotoxic agents Repeat labs today and in a.m. Continue with antibiotics.
[2024-01-01 11:26] LABS: Glucose,Whole Blood 258 mg/dL (70-110)
[2024-01-01 11:36] LABS: African American GFR (CKD) 45 (>60 ml/min/1.73 sqM); Anion Gap 7 mmol/L; Blood Urea Nitrogen 60 mg/dL (9-20); Calcium 7.3 mg/dL (8.4-10.2); Carbon Dioxide 27 mmol/L (22-30); Chloride 103 mmol/L (98-107); Glucose 226 mg/dL (74-99); Non-African American GFR(CKD) 39 (>60 ml/min/1.73 sqM); Potassium 3.7 mmol/L (3.5-5.1); Sodium 137 mmol/L (137-145)
--- NOTE | 2024-01-01 14:29 | P.PN ---
Subjective Progress Note Date: 01/01/24 Principal diagnosis: Reason for follow-up is fever/cholecystitis Patient is a 78-year-old male with a past medical history significant for diabetes mellitus hypertension hyperlipidemia memory impairment heart failure and coronary disease patient presenting to the hospital for evaluation of chest discomfort, patient also noticed to be febrile did have a CT of abdomen suspicious for cholecystitis. On today's evaluation that is 01/01/2024,the patient remains to be afebrile, patient is on 3 L nasal cannula supplemental oxygen, the patient is more awake and alert and denies any shortness of breath no chest pain or cough.Patient denies having any nausea or vomiting, no abdominal pain and no diarrhea has been reported. Minimal output from his cholecystotomy tube per the nursing staff. Patient did have a creatinine 1.67 white count was 10.8 as of yesterday cultures so far negative Objective - Vital Signs Vital signs: Vital Signs Temp 98.5 F 01/01/24 07:40 Pulse 73 01/01/24 11:50 Resp 16 01/01/24 11:50 BP 188/74 01/01/24 11:50 Pulse Ox 97 01/01/24 11:50 FiO2 Intake & Output 12/31/23 01/01/24 01/01/24 18:59 06:59 18:59 Intake Total 335 220 Output Total 910 1240 Balance -575 -1240 220 Intake: Oral 335 220 Output: Drainage 200 Right Medial Abdomen 200 Urine 710 1240 Other: Voiding Method Indwelling Catheter Indwelling Catheter Indwelling Catheter # Bowel Movements 1 1 - Exam GENERAL DESCRIPTION: An elderly male lying in bed in no distress RESPIRATORY SYSTEM: Unlabored breathing , decreased breath sounds at bases HEART: S1 S2 regular rate and rhythm , ABDOMEN: Soft , mild tenderness EXTREMITIES: No edema feet - Labs CBC & Chem 7: 12/31/23 09:18 01/01/24 10:44 Labs: Abnormal Lab Results - Last 24 Hours (Table) 12/31/23 12/31/23 01/01/24 Range/Units 16:35 20:15 05:47 BUN (9-20) mg/dL Creatinine (0.66-1.25) mg/dL Glucose (74-99) mg/dL POC Glucose (mg/dL) 329 H 318 H 116 H (70-110) mg/dL Calcium (8.4-10.2) mg/dL 01/01/24 01/01/24 Range/Units 10:44 11:25 BUN 60 H (9-20) mg/dL Creatinine 1.67 H (0.66-1.25) mg/dL Glucose 226 H (74-99) mg/dL POC Glucose (mg/dL) 258 H (70-110) mg/dL Calcium 7.3 L (8.4-10.2) mg/dL Microbiology - Last 24 Hours (Table) 12/28/23 13:13 Anaerobic Culture - Final Aspirate 12/28/23 13:13 Gram Stain - Final Aspirate Body Fluid Culture - Final Assessment and Plan (1) Sepsis Current Visit: Yes Status: Acute Code(s): A41.9 - SEPSIS, UNSPECIFIED ORGANISM SNOMED Code(s): 69956342 (2) Cholecystitis Current Visit: Yes Status: Acute Code(s): K81.9 - CHOLECYSTITIS, UNSPECIFIED SNOMED Code(s): 81481374 Plan: 1patient with sepsis in this patient initial complaint has been mostly chest pain however the patient did have a right upper quadrant tenderness on examination and did have abnormal CT suspicious for cholecystitis and currently no other obvious focus for his fever with chest x-ray negative for pneumonia urine is negative and no evidence of any cellulitis 2-patient did have resolution of his fever and the white count normalized as of yesterday, gallbladder fluid cultures so far negative 3-patient to continue with the Zosyn while inpatient and transition to oral antibiotics on discharge Dictation was produced using [employer] dictation software. please excuse any grammatical, word or spelling errors. Time with Patient: Less than 30
[2024-01-01 16:34] LABS: Glucose,Whole Blood 303 mg/dL (70-110)
[2024-01-01 20:16] LABS: Glucose,Whole Blood 246 mg/dL (70-110)
[2024-01-02] MEDS: hydrALAZINE HCL 50 MG TAB PO STA (05:36)
[2024-01-02 05:57] LABS: Glucose,Whole Blood 216 mg/dL (70-110)
[2024-01-02 08:34] VITALS: TEMP 97.8
[2024-01-02] MEDS ORDERED: hydrALAZINE HCL 20 MG/ML 1 ML VIAL IVP PRN (10:03)
--- NOTE | 2024-01-02 10:05 | P.PN ---
Subjective Patient is seen in follow-up for acute kidney injury. Renal function improving. Creatinine 1.67 dated yesterday. Has Morales catheter. Nonoliguric. Receiving IV fluids. Tolerating oral intake. Vital signs are stable. General: No acute distress. HEENT: Head exam is unremarkable. LUNGS: No audible rhonchi or wheezes. HEART: Rate and Rhythm are regular. ABDOMEN: Nontender. EXTREMITITES: No edema. Objective - Vital Signs Vital signs: Vital Signs Temp 97.8 F 01/02/24 08:13 Pulse 71 01/02/24 09:37 Resp 18 01/02/24 09:37 BP 185/70 01/02/24 08:13 Pulse Ox 95 01/02/24 08:13 FiO2 Intake & Output 01/01/24 01/02/24 01/02/24 18:59 06:59 18:59 Intake Total 330 540 540 Output Total 510 800 Balance -180 -260 540 Intake: Oral 330 540 540 Output: Drainage 120 Right Medial Abdomen 120 Urine 390 800 Other: Voiding Method Indwelling Catheter Indwelling Catheter Indwelling Catheter # Bowel Movements 1 - Labs CBC & Chem 7: 12/31/23 09:18 01/01/24 10:44 Labs: Abnormal Lab Results - Last 24 Hours (Table) 01/01/24 01/01/24 01/01/24 Range/Units 10:44 11:25 16:31 BUN 60 H (9-20) mg/dL Creatinine 1.67 H (0.66-1.25) mg/dL Glucose 226 H (74-99) mg/dL POC Glucose (mg/dL) 258 H 303 H (70-110) mg/dL Calcium 7.3 L (8.4-10.2) mg/dL 01/01/24 01/02/24 Range/Units 20:14 05:56 BUN (9-20) mg/dL Creatinine (0.66-1.25) mg/dL Glucose (74-99) mg/dL POC Glucose (mg/dL) 246 H 216 H (70-110) mg/dL Calcium (8.4-10.2) mg/dL Microbiology - Last 24 Hours (Table) 12/28/23 13:13 Anaerobic Culture - Final Aspirate 12/28/23 13:13 Gram Stain - Final Aspirate Body Fluid Culture - Final Assessment and Plan Plan: Assessment: 1. Acute kidney injury secondary to ATN. No hydronephrosis noted on CAT scan. Renal function improving. Creatinine peaked at 3.5 on this admission and was 1.67 dated January 01, 2024. Baseline creatinine near 1. 2. Acute cholecystitis status post cholecystectomy December 28, 2023. 3. Status post TAVR November 2023. 4. Hypokalemia from poor intake. Replaced. Better. 5. Diabetes mellitus. 6. Benign hypertension. Plan: Decrease rate of IV fluids. Add amlodipine 5 mg once daily. Add as needed hydralazine. Encouraged oral intake. Avoid nephrotoxins. Repeat labs in the morning. Okay to DC Morales catheter from nephrology standpoint.
--- NOTE | 2024-01-02 11:13 | P.PN ---
Subjective Progress Note Date: 01/02/24 Principal diagnosis: Reason for follow-up is fever/cholecystitis Patient is a 78-year-old male with a past medical history significant for diabetes mellitus hypertension hyperlipidemia memory impairment heart failure and coronary disease patient presenting to the hospital for evaluation of chest discomfort, patient also noticed to be febrile did have a CT of abdomen suspicious for cholecystitis. On today's evaluation that is 01/02/2024, the patient continues to be afebrile, the patient is on room air and breathing comfortably, the Pt denies having any chest pain or cough, the patient denies having any abdominal pain no vomiting or any diarrhea has been reported by the nursing staff, patient mention feeling better and asking when he can go home. No labs today the gallbladder fluid aspirated culture negative blood culture negative Objective - Vital Signs Vital signs: Vital Signs Temp 97.8 F 01/02/24 08:13 Pulse 71 01/02/24 09:37 Resp 18 01/02/24 09:37 BP 185/70 01/02/24 08:13 Pulse Ox 95 01/02/24 08:13 FiO2 Intake & Output 01/01/24 01/02/24 01/02/24 18:59 06:59 18:59 Intake Total 330 540 540 Output Total 510 800 Balance -180 -260 540 Intake: Oral 330 540 540 Output: Drainage 120 Right Medial Abdomen 120 Urine 390 800 Other: Voiding Method Indwelling Catheter Indwelling Catheter Indwelling Catheter # Bowel Movements 1 - Exam GENERAL DESCRIPTION: An elderly male lying in bed in no distress RESPIRATORY SYSTEM: Unlabored breathing , decreased breath sounds at bases HEART: S1 S2 regular rate and rhythm , ABDOMEN: Soft , mild tenderness EXTREMITIES: No edema feet - Labs CBC & Chem 7: 12/31/23 09:18 01/01/24 10:44 Labs: Abnormal Lab Results - Last 24 Hours (Table) 01/01/24 01/01/24 01/01/24 Range/Units 10:44 11:25 16:31 BUN 60 H (9-20) mg/dL Creatinine 1.67 H (0.66-1.25) mg/dL Glucose 226 H (74-99) mg/dL POC Glucose (mg/dL) 258 H 303 H (70-110) mg/dL Calcium 7.3 L (8.4-10.2) mg/dL 01/01/24 01/02/24 Range/Units 20:14 05:56 BUN (9-20) mg/dL Creatinine (0.66-1.25) mg/dL Glucose (74-99) mg/dL POC Glucose (mg/dL) 246 H 216 H (70-110) mg/dL Calcium (8.4-10.2) mg/dL Microbiology - Last 24 Hours (Table) 12/28/23 13:13 Anaerobic Culture - Final Aspirate 12/28/23 13:13 Gram Stain - Final Aspirate Body Fluid Culture - Final Assessment and Plan (1) Sepsis Current Visit: Yes Status: Acute Code(s): A41.9 - SEPSIS, UNSPECIFIED ORGANISM SNOMED Code(s): 68302540 (2) Cholecystitis Current Visit: Yes Status: Acute Code(s): K81.9 - CHOLECYSTITIS, UNSPECIFIED SNOMED Code(s): 46505379 Plan: 1patient with sepsis in this patient initial complaint has been mostly chest pain however the patient did have a right upper quadrant tenderness on examination and did have abnormal CT suspicious for cholecystitis and currently no other obvious focus for his fever with chest x-ray negative for pneumonia urine is negative and no evidence of any cellulitis 2-patient did have resolution of his fever and the white count normalized as of yesterday, gallbladder fluid cultures so far negative 3-patient has shown clinical improvement and is currently being treated with the Zosyn with a plan to finish therapy with oral Augmentin Dictation was produced using [employer] dictation software. please excuse any grammatical, word or spelling errors. Time with Patient: Less than 30
[2024-01-02 11:24] LABS: Glucose,Whole Blood 313 mg/dL (70-110)
[2024-01-02] MEDS: amLODIPine 5 MG TAB PO SCH (11:34)
--- NOTE | 2024-01-02 13:47 | P.DS ---
Providers Date of admission: 12/25/23 13:23 Expected date of discharge: 01/02/24 Attending physician: Fan Carrillo MD Consults: 12/25/23 11:14 Consult Physician Urgent Consulting Provider: Zack Wright Consult Reason/Comments: sepsis, unclear source Do you want consulting provider notified?: Yes 12/25/23 13:22 Consult Physician Urgent Consulting Provider: Naresh Patel Consult Reason/Comments: acute cholecystitis Do you want consulting provider notified?: Yes 12/27/23 14:36 Consult Physician Routine Consulting Provider: Milana Johnson Consult Reason/Comments: SAMANTHA on CKD Do you want consulting provider notified?: Yes 12/28/23 09:25 Consult to Anesthesia Routine Consulting Provider: Anesthesia,Services Consult Reason/Comments: Image guided cholecystomstomy tube placement Primary care physician: [facility] Hospital Course: Sepsis secondary to acute cholecystitis, status post cholecystostomy NSTEMI, nonischemic Oliguric, acute kidney injury on chronic kidney disease, stage III, likely secondary to ATN, resolving Hyperbilirubinemia, resolved Anion gap metabolic acidosis, resolved Type 2 diabetes Systolic CHF, not in exacerbation CAD status post CABG Status post TAVR Dementia Hypertension Dyslipidemia BPH Atrial fibrillation, rate controlled Hospital Course: 78-year-old male with history of systolic CHF, CAD status post CABG, status post TAVR, type 2 diabetes, dementia, hypertension, dyslipidemia, BPH, atrial fibrillation presenting with overall not feeling well. In the ED, temperature was 99.3, pulse 82, respiratory rate 18, blood pressure 146/62, saturating at 99% on room air. EKG shows sinus rhythm with first-degree AV block. Chest x- ray shows no acute opacities. WBC 24.4, hemoglobin 12.9, platelet 192, sodium 135, bicarb 17, anion gap 14, BUN 27, creatinine 1.09, total bili 2, ALP 146, troponin 0.068 he was given aspirin, topical nitroglycerin in the ED. Cardiology consulted. Patient admitted for sepsis. CT abdomen pelvis completed, shows evidence of acute cholecystitis. General surgery was consulted and recommended he keep cholecystostomy tube in and f/u in their office for further management. IV abx were transitioned to augmentin for additional 7 days on discharge per ID. Now status post cholecystostomy. He is also encephalopathic and having oliguric SAMANTHA. Nephrology also consulted. Pt was treated with IVF for SAMANTHA and this gradually improved. On discharge, diuretics were held, lisinopril held, and amlodipine increased for elevated BP - he will need to f/u with nephrology in office to resume diuretics and lisinopril when appropriate. I spent 45 minutes coordinating this discharge on 01/02 General: nontoxic, in mild acute distress, appears at stated age Derm: warm, dry Head: atraumatic, normocephalic, symmetric Eyes: EOMI, no lid lag, anicteric sclera, pupils equal round reactive to light ENT: Nose and ears atraumatic Neck: No thyromegaly, supple, no stiffness Mouth: no lip lesion, mucus membranes moist Cardiovascular: S1S2 reg, no murmur, no edema Lungs: clear to auscultation bilateral, no rhonchi, no rales, no wheeze, no accessory muscle use Abdominal: soft, diffusely tender to palpation, distended and tense, no appreciable organomegaly, drain in place with serosanguineous fluid Ext: no gross muscle atrophy, muscle strength muscle strength 5 out of 5 in all 4 extremities, no contractures Neuro: CN II-XII grossly intact Psych: Oriented x 1, not cooperative Patient Condition at Discharge: Good Plan - Discharge Summary Discharge Rx Participant: No New Discharge Prescriptions: New Aspirin 81 mg PO DAILY #30 tab Amoxic-Pot Clav 875-125Mg [Augmentin 875-125] 1 tab PO Q12HR 7 Days #14 tab Continue Omeprazole [PriLOSEC] 20 mg PO DAILY Donepezil [Aricept] 10 mg PO HS #30 Tamsulosin HCl [Flomax] 0.4 mg PO DAILY Insulin Aspart [NovoLOG Flexpen] See Protocol SQ BID-W/MEALS Insulin Glargine,Hum.rec.anlog [Lantus Solostar Pen] 56 unit SQ W/LUNCH Fluticasone Nasal [place] [Flonase Nasal [place]] 2 spr EA NOSTRIL DAILY PRN PRN Reason: Nasal Congestion Cholecalciferol [Vitamin D3 (125 Mcg = 5000 Iu)] 125 mcg PO HS Furosemide [Lasix] 40 mg PO DAILY Atorvastatin [Lipitor] 80 mg PO HS Empagliflozin [Jardiance] 10 mg PO DAILY Acetaminophen Tab [Tylenol] 650 mg PO Q4HR PRN tab PRN Reason: Fever And/ Or Mild Pain (1-3) Potassium Chloride ER [K-Dur 10] 10 meq PO HS Amitriptyline HCl [Elavil] 25 mg PO HS Albuterol Nebulized [Ventolin Nebulized] 2.5 mg INHALATION RT-QID PRN PRN Reason: Shortness Of Breath Changed amLODIPine [Norvasc] 10 mg PO DAILY #0 Discontinued lisinopriL [Zestril] 10 mg PO DAILY #30 tab Apixaban [Eliquis] 5 mg PO DIRECTED Discharge Medication List Omeprazole [PriLOSEC] 20 mg PO DAILY 02/23/15 [History] Donepezil [Aricept] 10 mg PO HS #30 03/13/15 [Rx] Tamsulosin HCl [Flomax] 0.4 mg PO DAILY 03/07/17 [History] Insulin Aspart [NovoLOG Flexpen] See Protocol SQ BID-W/MEALS 11/08/19 [History] Amitriptyline HCl [Elavil] 25 mg PO HS 03/16/22 [History] Potassium Chloride ER [K-Dur 10] 10 meq PO HS 03/16/22 [History] Insulin Glargine,Hum.rec.anlog [Lantus Solostar Pen] 56 unit SQ W/LUNCH 04/05/22 [History] Albuterol Nebulized [Ventolin Nebulized] 2.5 mg INHALATION RT-QID PRN 04/16/23 [History] Fluticasone Nasal [place] [Flonase Nasal [place]] 2 spr EA NOSTRIL DAILY PRN 04/16/23 [History] Atorvastatin [Lipitor] 80 mg PO HS 05/11/23 [History] Cholecalciferol [Vitamin D3 (125 Mcg = 5000 Iu)] 125 mcg PO HS 05/11/23 [History] Furosemide [Lasix] 40 mg PO DAILY 05/11/23 [History] Empagliflozin [Jardiance] 10 mg PO DAILY 11/23/23 [History] Acetaminophen Tab [Tylenol] 650 mg PO Q4HR PRN tab 12/01/23 [Rx] Amoxic-Pot Clav 875-125Mg [Augmentin 875-125] 1 tab PO Q12HR 7 Days #14 tab 11/13 [Rx] Aspirin 81 mg PO DAILY #30 tab 01/02/24 [Rx] amLODIPine [Norvasc] 10 mg PO DAILY #0 01/02/24 [Rx] Follow up Appointment(s)/Referral(s): Naresh Patel MD [Medical Doctor] - 2 Weeks Valente Sharma MD [Primary Care Provider] - 1-2 days Michelet Rivera DO [STAFF PHYSICIAN] - 1 Week [facility] Visiting Nurse, [NON-STAFF] - Activity/Diet/Wound Care/Special Instructions: Hold lasix until you follow up with you early childhood associate in 1-1.5 weeks Discharge Disposition: HOME WITH HOME HEALTH SERVICES
--- NOTE | 2024-01-02 13:49 | P.PN ---
Subjective Progress Note Date: 01/02/24 Principal diagnosis: Cholecystitis Patient doing well today. Much more alert. Denies pain currently. cholecystostomy tube still with bloody bilious fluid. White blood cell count normal. He is afebrile. Cultures remain negative. Objective - Vital Signs Vital signs: Vital Signs Temp 97.8 F 01/02/24 08:13 Pulse 70 01/02/24 11:32 Resp 18 01/02/24 11:32 BP 175/108 01/02/24 11:32 Pulse Ox 95 01/02/24 11:32 FiO2 Intake & Output 01/01/24 01/02/24 01/02/24 18:59 06:59 18:59 Intake Total 330 540 540 Output Total 510 800 Balance -180 -260 540 Intake: Oral 330 540 540 Output: Drainage 120 Right Medial Abdomen 120 Urine 390 800 Other: Voiding Method Indwelling Catheter Indwelling Catheter Indwelling Catheter # Bowel Movements 1 - Exam Abdomen: Soft, mild distention, mild right upper quadrant tenderness, no rebound or guarding - Labs CBC & Chem 7: 12/31/23 09:18 01/01/24 10:44 Labs: Abnormal Lab Results - Last 24 Hours (Table) 01/01/24 01/01/24 01/02/24 Range/Units 16:31 20:14 05:56 POC Glucose (mg/dL) 303 H 246 H 216 H (70-110) mg/dL 01/02/24 Range/Units 11:22 POC Glucose (mg/dL) 313 H (70-110) mg/dL Microbiology - Last 24 Hours (Table) 12/28/23 13:13 Anaerobic Culture - Final Aspirate Assessment and Plan (1) Cholecystitis Narrative/Plan: Patient doing well at this time. Continue antibiotics per infectious disease. Continue drain to dependent drainage. Discussion regarding discharge noted. Stable for discharge from my point of view. Follow-up as outpatient. Current Visit: Yes Status: Acute Code(s): K81.9 - CHOLECYSTITIS, UNSPECIFIED SNOMED Code(s): 91877740
[2024-01-02 16:04] VITALS: BP 174/104; PULSE 74; RESP 20
== END 2024-01-02 16:25 | DRG 871 ==
LOC: EC 11:21 → 3SCARD 14:22 → OBSVTOIN 12-25 13:23
PROVIDERS: ADMIT Student in an Organized Health Care Education/Training Program; ATTEND Student in an Organized Health Care Education/Training Program
PROC: 0F9430Z Drainage of Gallbladder with Drainage Device, Percutaneous Approach (ICD-10-PCS; principal; 2023-12-28 11:30)
DX: A41.9 Sepsis, unspecified organism (principal); G93.41 Metabolic encephalopathy; N17.0 Acute kidney failure with tubular necrosis; K81.0 Acute cholecystitis; E87.20 Acidosis, unspecified; I13.0 Hypertensive heart and chronic kidney disease with heart failure and stage 1 through stage 4 chronic kidney disease, or unspecified chronic kidney disease; I5A Non-ischemic myocardial injury (non-traumatic); I25.110 Atherosclerotic heart disease of native coronary artery with unstable angina pectoris; I50.22 Chronic systolic (congestive) heart failure; F03.93 Unspecified dementia, unspecified severity, with mood disturbance; F03.94 Unspecified dementia, unspecified severity, with anxiety; I27.20 Pulmonary hypertension, unspecified; E11.22 Type 2 diabetes mellitus with diabetic chronic kidney disease; E11.51 Type 2 diabetes mellitus with diabetic peripheral angiopathy without gangrene; E11.40 Type 2 diabetes mellitus with diabetic neuropathy, unspecified; N18.30 Chronic kidney disease, stage 3 unspecified; J44.9 Chronic obstructive pulmonary disease, unspecified; I48.0 Paroxysmal atrial fibrillation; Z79.4 Long term (current) use of insulin; Z95.3 Presence of xenogenic heart valve; Z28.310 Unvaccinated for COVID-19; E78.5 Hyperlipidemia, unspecified; E87.6 Hypokalemia; N40.1 Benign prostatic hyperplasia with lower urinary tract symptoms; N39.498 Other specified urinary incontinence; K21.9 Gastro-esophageal reflux disease without esophagitis; I44.0 Atrioventricular block, first degree; I25.2 Old myocardial infarction; M19.90 Unspecified osteoarthritis, unspecified site; G89.29 Other chronic pain; M54.9 Dorsalgia, unspecified; M54.2 Cervicalgia; Z79.01 Long term (current) use of anticoagulants; Z79.84 Long term (current) use of oral hypoglycemic drugs; Z79.899 Other long term (current) drug therapy; Z95.1 Presence of aortocoronary bypass graft; Z86.16 Personal history of COVID-19; Z91.81 History of falling; Z71.3 Dietary counseling and surveillance
CPT/HCPCS: 36415; 47490; 70030; 71046; 72141; 74150; 76770; 80048; 80053; 80061; 81001; 82009; 82803; 83036; 83605; 83735; 83880; 84145; 84484; 85025; 85610; 85652; 85730; 86140; 87040; 87070; 87075; 87102; 87205; 87636; 93005; 93306; 94760; 96365; 99285

== ENCOUNTER 2024-01-09 21:15 | Emergency (ER) | payer MEDICARE, BC ==
--- NOTE | 2024-01-09 21:48 | ED ---
General Adult HPI - General Chief complaint: Fall Stated complaint: Fall Time Seen by Provider: 01/09/24 21:18 Source: patient, EMS, RN notes reviewed, old records reviewed Mode of arrival: EMS Limitations: no limitations - History of Present Illness Initial comments: Patient is a pleasant 78-year-old male present to the emergency department following fall. Patient is a poor historian and does not recall the episode well. Patient denies any complaints at this time. No headache. No neck pain. Patient denies any injury. Patient reportedly is on aspirin, no other blood thinners - Related Data Home Medications Medication Instructions Recorded Confirmed Omeprazole [PriLOSEC] 20 mg PO DAILY 02/23/15 12/23/23 Tamsulosin HCl [Flomax] 0.4 mg PO DAILY 03/07/17 12/23/23 Insulin Aspart [NovoLOG Flexpen] See Protocol SQ BID-W/MEALS 11/08/19 12/23/23 Amitriptyline HCl [Elavil] 25 mg PO HS 03/16/22 12/23/23 Potassium Chloride ER [K-Dur 10] 10 meq PO HS 03/16/22 12/23/23 Insulin Glargine,Hum.rec.anlog 56 unit SQ W/LUNCH 04/05/22 12/23/23 [Lantus Solostar Pen] Albuterol Nebulized [Ventolin 2.5 mg INHALATION RT-QID PRN 04/16/23 12/23/23 Nebulized] Fluticasone Nasal [place] [Flonase 2 spr EA NOSTRIL DAILY PRN 04/16/23 12/23/23 Nasal [place]] Atorvastatin [Lipitor] 80 mg PO HS 05/11/23 12/23/23 Cholecalciferol [Vitamin D3 (125 125 mcg PO HS 05/11/23 12/23/23 Mcg = 5000 Iu)] Furosemide [Lasix] 40 mg PO DAILY 05/11/23 12/23/23 Empagliflozin [Jardiance] 10 mg PO DAILY 11/23/23 12/23/23 Previous Rx's Medication Instructions Recorded Donepezil [Aricept] 10 mg PO HS #30 03/13/15 Acetaminophen Tab [Tylenol] 650 mg PO Q4HR PRN tab 12/01/23 Amoxic-Pot Clav 875-125Mg 1 tab PO Q12HR 7 Days #14 tab 01/02/24 [Augmentin 875-125] Aspirin 81 mg PO DAILY #30 tab 01/02/24 amLODIPine [Norvasc] 10 mg PO DAILY #0 01/02/24 Allergies Allergy/AdvReac Type Severity Reaction Status Date / Time No Known Allergies Allergy Verified 12/23/23 11:27 Review of Systems ROS Statement: Those systems with pertinent positive or pertinent negative responses have been documented in the HPI. ROS Other: All systems not noted in ROS Statement are negative. Constitutional: Denies: fever Eyes: Denies: eye pain ENT: Denies: ear pain Respiratory: Denies: cough, dyspnea Cardiovascular: Denies: chest pain Endocrine: Denies: fatigue Gastrointestinal: Denies: abdominal pain, vomiting Genitourinary: Denies: dysuria Neurological: Denies: headache, weakness Past Medical History Past Medical History: Coronary Artery Disease (CAD), Heart Failure, COPD, Dementia, Diabetes Mellitus, GERD/Reflux, Hyperlipidemia, Hypertension, Memory Impairment, Myocardial Infarction (ME), Neurologic Disorder, Osteoarthritis (OA), Pneumonia, Prostate Disorder, Vascular Disorder Additional Past Medical History / Comment(s): Hx falls and diarrhea/incontinence since diagnosed with Covid Oct 2022, daughter thinks he may have had a minor heart attack when he had Covid as well. 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 PAD. Enlarged prostate. Chronic back pain. Hx bronchitis. Sinus issues. Last Myocardial Infarction Date:: 2014 History of Any Multi-Drug Resistant Organisms: None Reported Past Surgical History: Coronary Bypass/CABG, Orthopedic Surgery Additional Past Surgical History / Comment(s): 2014 CABG 4 vessel/bioprosthetic aortic valve, angiograms, aortagram with bilateral run-offs, PTBA/atherectomy left leg, left foot surgery for crush injury, colonoscopy, bilateral cataract removals. TAVR Oct 2023. Past Anesthesia/Blood Transfusion Reactions: No Reported Reaction Past Psychological History: Anxiety, Depression Smoking Status: Never smoker Past Alcohol Use History: Heavy Past Drug Use History: None Reported - Past Family History Father History Unknown: Yes Family Medical History: Congestive Heart Failure (CHF) Mother History Unknown: Yes Family Medical History: Congestive Heart Failure (CHF) General Exam Limitations: no limitations General appearance: alert, in no apparent distress Head exam: Present: atraumatic, normocephalic Eye exam: Present: normal appearance, PERRL, EOMI ENT exam: Present: normal oropharynx Neck exam: Present: normal inspection. Absent: tenderness Respiratory exam: Present: normal lung sounds bilaterally Cardiovascular Exam: Present: regular rate, normal rhythm GI/Abdominal exam: Present: soft. Absent: tenderness Extremities exam: Present: normal inspection, full ROM. Absent: tenderness Neurological exam: Present: alert, oriented X3, CN II-XII intact. Absent: motor sensory deficit Expanded Neurological exam: Present: protecting the airway Patient oriented to: Present: person, place, time Speech: Present: fluid speech Cranial nerves: EOM's Intact: Normal Motor strength exam: RUE: 5, LUE: 5, RLE: 5, LLE: 5 Eye Response: (4) open spontaneously Motor Response: (6) obeys commands Verbal Response: (5) oriented Psychiatric exam: Present: normal affect, normal mood Skin exam: Present: normal color Course Vital Signs 01/09/24 21:20 Temperature 97.9 F Pulse Rate 85 Respiratory 20 Rate Blood Pressure 152/65 O2 Sat by Pulse 93 L Oximetry EKG Findings - EKG Results: EKG: interpreted by ERMD (Left axis. Q wave V1 V2 with repolarization changes, similar to previous EKGs), sinus rhythm, not changed from: Medical Decision Making - Medical Decision Making Was pt. sent in by a medical professional or institution (ALISIA Valentine, DRAWING IN MACHINE TENDER, urgent c are, hospital, or fci...) When possible be specific @ -Patient was sent from nursing Did you speak to anyone other than the patient for history (EMS, parent, family, police, friend...)? What history was obtained from this source @ -No Did you review nursing and triage notes (agree or disagree)? Why? @ -I reviewed and agree with nursing and triage notes Were old charts reviewed (outside hosp., previous admission, EMS record, old EKG, old radiological studies, urgent care reports/EKG's, fci records)? Report findings @ -Reviewed previous admission. Reviewed fci notes Differential Diagnosis (chest pain, altered mental status, abdominal pain women, abdominal pain men, vaginal bleeding, weakness, fever, dyspnea, syncope, headache, dizziness, GI bleed, back pain, seizure, CVA, palpatations, mental health, musculoskeletal)? @ -Differential Weakness: Hypoglycemia, shock, sepsis, hyponatremia, anemia, infection, ME, ETOH, adverse medicine reaction, overdose, stroke, this is not meant to be an all-inclusive list. EKG interpreted by me (3pts min.). @ -As above X-rays interpreted by me (1pt min.). @ -None done CT interpreted by me (1pt min.). @ -CT scan of the brain and cervical spine does not reveal acute abnormality U/S interpreted by me (1pt. min.). @ -None done What testing was considered but not performed or refused? (CT, X-rays, U/S, labs)? Why? @ -None What meds were considered but not given or refused? Why? @ -None Did you discuss the management of the patient with other professionals (professionals i.e. , PA, DRAWING IN MACHINE TENDER, lab, RT, psych nurse, manager social, pipe processor, teacher, booking police officer, showcase trimmer)? Give summary @ -No Was smoking cessation discussed for >3mins.? @ -No Was critical care preformed (if so, how long)? @ -No Were there social determinants of health that impacted care today? How? (Homelessness, low income, unemployed, alcoholism, drug addiction, transportation, low edu. Level, literacy, decrease access to med. care, skilled nursing, rehab)? @ -No Was there de-escalation of care discussed even if they declined (Discuss DNR or withdrawal of care, Hospice)? DNR status @ -No What co-morbidities impacted this encounter? (DM, HTN, Smoking, COPD, CAD, Cancer, CVA, ARF, Chemo, Hep., AIDS, mental health diagnosis, sleep apnea, morbid obesity)? @ -Patient is a poor historian and has memory problems Was patient admitted / discharged? Hospital course, mention meds given and route, prescriptions, significant lab abnormalities, going to OR and other pertinent info. @ -Patient reevaluated and remains symptom-free. Patient was updated on results. Patient will be discharged back to nursing facility to follow-up with primary care physician Undiagnosed new problem with uncertain prognosis? @ -No Drug Therapy requiring intensive monitoring for toxicity (Heparin, Nitro, Insulin, Cardizem)? @ -No Were any procedures done? @ -No Diagnosis/symptom? @ -Head contusion, fall Acute, or Chronic, or Acute on Chronic? @ -Acute Uncomplicated (without systemic symptoms) or Complicated (systemic symptoms)? @ -Default Side effects of treatment? @ -No Exacerbation, Progression, or Severe Exacerbation? @ -No Poses a threat to life or bodily function? How? (Chest pain, USA, ME, pneumonia, PE, COPD, DKA, ARF, appy, cholecystitis, CVA, Diverticulitis, Homicidal, Suicidal, threat to staff... and all critical care pts) @ -No Disposition Clinical Impression: Contusion of head Disposition: HOME SELF-CARE Condition: Stable Instructions (If sedation given, give patient instructions): Fall Prevention for Older Adults (ED) Additional Instructions: Hold aspirin and all blood thinners 24 hours. Please follow-up with your primary care physician in the next couple of days for recheck. Return for confusion, weakness, worsening or changing symptoms or other concerns Is patient prescribed a controlled substance at d/c from ED?: No Referrals: Valente Sharma MD [Primary Care Provider] - 1-2 days Time of Disposition: 23:29
[2024-01-09 21:50] VITALS: TEMP 97.9
--- NOTE | 2024-01-09 23:16 | CT ---
EXAM: CT Head Without Intravenous Contrast CLINICAL HISTORY: ITS.REASON CT Reason: fall TECHNIQUE: Axial computed tomography images of the head/brain without intravenous contrast. CTDI is 45.2 mGy and DLP is 1139 mGy-cm. This CT exam was performed using one or more of the following dose reduction techniques: automated exposure control, adjustment of the mA and/or kV according to patient size, and/or use of iterative reconstruction technique. COMPARISON: No relevant prior studies available. FINDINGS: No acute intracranial hemorrhage. No midline shift or mass effect. The territorial angel-white matter differentiation is maintained throughout. Age-related cerebral volume loss. Periventricular and subcortical white matter hypoattenuation, consistent with chronic microangiopathy. The visualized orbits appear grossly unremarkable. The calvarium is intact. The visualized paranasal sinuses and mastoid air cells are grossly clear. IMPRESSION: No acute intracranial hemorrhage, midline shift, or mass effect. EXAM: CT Cervical Spine Without Intravenous Contrast CLINICAL HISTORY: ITS.REASON CT Reason: fall TECHNIQUE: Axial computed tomography images of the cervical spine without intravenous contrast. CTDI is 15.2 mGy and DLP is 412.9 mGy-cm. This CT exam was performed using one or more of the following dose reduction techniques: automated exposure control, adjustment of the mA and/or kV according to patient size, and/or use of iterative reconstruction technique. COMPARISON: No relevant prior studies available. FINDINGS: The vertebral body heights are maintained. The craniocervical junction is intact. The atlanto-dens interval is maintained. The dens is intact. There is no spondylolisthesis. Multilevel cervical spondylosis and degenerative disc disease. Straightening of the cervical lordosis. LEFT pleural effusion. IMPRESSION: No acute fracture or subluxation of the cervical spine.
[2024-01-10 01:32] VITALS: BP 152/74; PULSE 82; RESP 18
== END 2024-01-10 01:22 | disposition home or self-care (01) ==
LOC: EC 21:15
DX: S00.93XA Contusion of unspecified part of head, initial encounter (principal); E11.40 Type 2 diabetes mellitus with diabetic neuropathy, unspecified; I11.0 Hypertensive heart disease with heart failure; I50.9 Heart failure, unspecified; I25.2 Old myocardial infarction; I25.10 Atherosclerotic heart disease of native coronary artery without angina pectoris; J44.9 Chronic obstructive pulmonary disease, unspecified; K21.9 Gastro-esophageal reflux disease without esophagitis; N40.0 Benign prostatic hyperplasia without lower urinary tract symptoms; E78.5 Hyperlipidemia, unspecified; F03.90 Unspecified dementia, unspecified severity, without behavioral disturbance, psychotic disturbance, mood disturbance, and anxiety; M19.90 Unspecified osteoarthritis, unspecified site; Z79.4 Long term (current) use of insulin; Z79.84 Long term (current) use of oral hypoglycemic drugs; Z95.1 Presence of aortocoronary bypass graft; Z95.3 Presence of xenogenic heart valve; Z86.16 Personal history of COVID-19; Z79.899 Other long term (current) drug therapy; Z98.41 Cataract extraction status, right eye; Z98.42 Cataract extraction status, left eye; W19.XXXA Unspecified fall, initial encounter
CPT/HCPCS: 70450; 72125; 93005; 99285

== ENCOUNTER 2024-01-22 15:56 | Inpatient (IN) | payer MEDICARE, BC ==
[2024-01-22 17:23] LABS: Anisocytosis Slight; Basophils # (A) 0.1 k/uL (0-0.2); Basophils % (A) 1 %; Eosinophils # (A) 0.3 k/uL (0-0.7); Eosinophils % (A) 2 %; HCT 39.2 % (39.0-53.0); HGB 12.8 gm/dL (13.0-17.5); Lymphocytes # (A) 1.4 k/uL (1.0-4.8); Lymphocytes % (A) 8 %; MCH 26.7 pg (25.0-35.0); MCHC 32.6 g/dL (31.0-37.0); MCV 81.9 fL (80.0-100.0); Mean Platelet Volume 6.7; Monocytes # (A) 0.7 k/uL (0-1.0); Monocytes % (A) 4 %; Neutrophils # (A) 15.6 k/uL (1.3-7.7); Neutrophils % (A) 85 %; Platelet Count 299 k/uL (150-450); RBC 4.79 m/uL (4.30-5.90); RDW 16.4 % (11.5-15.5); WBC 18.3 k/uL (3.8-10.6)
[2024-01-22 17:36] LABS: ALT 16 U/L (4-49); AST 24 U/L (17-59); African American GFR (CKD) 60 (>60 ml/min/1.73 sqM); Albumin 3.4 g/dL (3.5-5.0); Alkaline Phosphatase 135 U/L (38-126); Anion Gap 13 mmol/L; Blood Urea Nitrogen 22 mg/dL (9-20); Calcium 8.8 mg/dL (8.4-10.2); Carbon Dioxide 19 mmol/L (22-30); Chloride 105 mmol/L (98-107); Glucose 133 mg/dL (74-99); Lipase 92 U/L (23-300); Non-African American GFR(CKD) 52 (>60 ml/min/1.73 sqM); Potassium 4.6 mmol/L (3.5-5.1); Sodium 137 mmol/L (137-145); Total Bilirubin 1.1 mg/dL (0.2-1.3); Total Protein 6.9 g/dL (6.3-8.2)
[2024-01-22] MEDS: ONDANSETRON 4 MG/2 ML VIAL IVP STA (17:39)
[2024-01-22] MEDS: HYDROmorphone 1 MG/ML 1 ML SYRINGE IVP STA (17:39)
[2024-01-22] MEDS: HALOPERIDOL LACTATE 5 MG/ML 1 ML VIAL IM STA (17:40)
--- NOTE | 2024-01-22 20:12 | CT ---
EXAMINATION TYPE: CT abdomen pelvis w con CT DLP: 1452.8 mGycm, Automated exposure control for dose reduction was used. DATE OF EXAM: 01/22/2024 7:53 PM COMPARISON: CT abdomen pelvis most recent from 12/28/2023 CLINICAL INDICATION:Male, 78 years old with history of abdominal pain; generalized abd pain TECHNIQUE: Axial CT abdomen pelvis w con;Sagittal and coronal reformats were created on a separate w orkstation. Contrast used:80 cc mL of Isovue 300 with IV Contrast, (none if empty) Oral contrast used: without Oral Contrast (none if empty) FINDINGS: LOWER CHEST: Trace to small left pleural effusion. Aortic valve repair changes. The heart is mildly e nlarged for size. ABDOMEN LIVER: Unremarkable GALLBLADDER AND BILE DUCTS: Percutaneous cholecystostomy tube with pigtail catheter gallbladder lumen . This is been retracted from prior insertion into 12/28/2023. Side ports are felt to be outside the adán men of the gallbladder. PANCREAS: Unremarkable. SPLEEN: Unremarkable. ADRENAL GLANDS: Unremarkable. KIDNEYS AND URETERS: No evidence of hydronephrosis or renal calculus. The ureters are unremarkable. PELVIS BLADDER: Unremarkable REPRODUCTIVE: Unremarkable. ABDOMEN & PELVIS STOMACH AND BOWEL: No evidence of bowel obstruction. Circumferential wall thickening predominantly in volving the hepatic flexure and extending to the rectum the appendix is prominent measuring up to 9 m m is not seen on prior on 12/25/2023. PERITONEUM/RETROPERITONEUM: No evidence of pneumoperitoneum or fr ee fluid. VASCULATURE: Mild atherosclerotic calcifications are present throughout the abdominal aorta and its b ranches. No evidence of aortic aneurysm. MUSCULOSKELETAL: No acute osseous abnormalities LYMPH NODES: No gross evidence for lymphadenopathy. SOFT TISSUE/ABDOMINAL WALL: Unremarkable IMPRESSION: 1. Few scattered foci of gas in the upper abdomen which could be secondary to partial retraction of the percutaneous cholecystostomy tube with side-ports open to the peritoneal cavity. 2. Colitis involving the transverse colon to the rectum. 3. Dilated appendix new from 12/25/2023. Correlate for right lower quadrant pain in the setting of vivian endicitis. 4. Small left pleural effusion.
--- NOTE | 2024-01-22 20:31 | ED ---
Abdominal Pain HPI - General Chief Complaint: Abdominal Pain Stated Complaint: NVD Time Seen by Provider: 01/22/24 16:09 Source: patient, EMS Mode of arrival: EMS - History of Present Illness Initial Comments: 78-year-old man presents [place] a [place] [facility] [place] Patient was complaining of generalized abdominal pain with nausea and vomiting which started this morning. He does have a history of dementia. Patient was recently hospitalized and had a cholecystostomy tube placed. Tube is still in place. No report of any fevers. No hematemesis. Denies any black or bloody stools. No urinary complaints. HPI is limited because of patient's advanced dementia - Related Data Home Medications Medication Instructions Recorded Confirmed Omeprazole [PriLOSEC] 20 mg PO DAILY 02/23/15 01/23/24 Tamsulosin HCl [Flomax] 0.4 mg PO DAILY 03/07/17 01/23/24 Amitriptyline HCl [Elavil] 25 mg PO HS 03/16/22 01/23/24 Potassium Chloride ER [K-Dur 10] 10 meq PO HS 03/16/22 01/23/24 Insulin Glargine,Hum.rec.anlog 68 unit SQ W/LUNCH 04/05/22 01/23/24 [Lantus Solostar Pen] Albuterol Nebulized [Ventolin 2.5 mg INHALATION RT-QID PRN 04/16/23 01/23/24 Nebulized] Fluticasone Nasal [place] [Flonase 2 spr EA NOSTRIL DAILY PRN 04/16/23 01/23/24 Nasal [place]] Atorvastatin [Lipitor] 80 mg PO HS 05/11/23 01/23/24 Cholecalciferol [Vitamin D3 (125 125 mcg PO HS 05/11/23 01/23/24 Mcg = 5000 Iu)] Furosemide [Lasix] 40 mg PO DAILY 05/11/23 01/23/24 Empagliflozin [Jardiance] 10 mg PO DAILY 11/23/23 01/23/24 INSULIN LISPRO (HumaLOG) [humaLOG] See Protocol SQ ACHS 01/23/24 01/23/24 Ondansetron [Zofran] 4 mg PO Q8HR PRN 01/23/24 01/23/24 Zguard 1 applic TOPICAL DIRECTED PRN 01/23/24 01/23/24 Zguard 1 applic TOPICAL BID 01/23/24 01/23/24 hydrALAZINE HCL 10 mg PO TID 01/23/24 01/23/24 Previous Rx's Medication Instructions Recorded Donepezil [Aricept] 10 mg PO HS #30 03/13/15 Acetaminophen Tab [Tylenol] 650 mg PO Q4HR PRN tab 12/01/23 Amoxic-Pot Clav 875-125Mg 1 tab PO Q12HR 7 Days #14 tab 01/02/24 [Augmentin 875-125] Aspirin 81 mg PO DAILY #30 tab 01/02/24 amLODIPine [Norvasc] 10 mg PO DAILY #0 01/02/24 Allergies Allergy/AdvReac Type Severity Reaction Status Date / Time No Known Allergies Allergy Verified 01/23/24 10:07 Review of Systems ROS Statement: Those systems with pertinent positive or pertinent negative responses have been documented in the HPI. ROS Other: All systems not noted in ROS Statement are negative. Past Medical History Past Medical History: Coronary Artery Disease (CAD), Heart Failure, COPD, Dementia, Diabetes Mellitus, GERD/Reflux, Hyperlipidemia, Hypertension, Memory Impairment, Myocardial Infarction (NH), Neurologic Disorder, Osteoarthritis (OA), Pneumonia, Prostate Disorder, Vascular Disorder Additional Past Medical History / Comment(s): Hx falls and diarrhea/incontinence since diagnosed with Covid Oct 2022, daughter thinks he may have had a minor heart attack when he had Covid as well. 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 PAD. Enlarged prostate. Chronic back pain. Hx bronchitis. Sinus issues. Last Myocardial Infarction Date:: 2014 History of Any Multi-Drug Resistant Organisms: None Reported Past Surgical History: Coronary Bypass/CABG, Orthopedic Surgery Additional Past Surgical History / Comment(s): 2014 CABG 4 vessel/bioprosthetic aortic valve, angiograms, aortagram with bilateral run-offs, PTBA/atherectomy left leg, left foot surgery for crush injury, colonoscopy, bilateral cataract removals. TAVR Oct 2023. Past Anesthesia/Blood Transfusion Reactions: No Reported Reaction Past Psychological History: Anxiety, Depression Smoking Status: Never smoker Past Alcohol Use History: Heavy Past Drug Use History: None Reported - Past Family History Father History Unknown: Yes Family Medical History: Congestive Heart Failure (CHF) Mother History Unknown: Yes Family Medical History: Congestive Heart Failure (CHF) General Exam General appearance: alert, in no apparent distress Head exam: Present: atraumatic, normocephalic, normal inspection Eye exam: Present: normal appearance, PERRL, EOMI. Absent: scleral icterus, conjunctival injection, periorbital swelling ENT exam: Present: normal exam, mucous membranes moist Neck exam: Present: normal inspection. Absent: tenderness, meningismus, lymphadenopathy Respiratory exam: Present: normal lung sounds bilaterally. Absent: respiratory distress, wheezes, rales, rhonchi, stridor Cardiovascular Exam: Present: regular rate, normal rhythm, normal heart sounds. Absent: systolic murmur, diastolic murmur, rubs, gallop, clicks GI/Abdominal exam: Present: soft, tenderness (Right lower quadrant), normal bowel sounds. Absent: distended, guarding, rebound, rigid Extremities exam: Present: normal inspection, full ROM, normal capillary refill. Absent: tenderness, pedal edema, joint swelling, calf tenderness Back exam: Present: normal inspection Neurological exam: Present: alert, oriented X3, CN II-XII intact Psychiatric exam: Present: normal affect, normal mood Skin exam: Present: warm, dry, intact, normal color. Absent: rash Course Vital Signs 01/22/24 01/23/24 16:05 05:58 Temperature 98.7 F 98.1 F Pulse Rate 87 67 Respiratory 18 18 Rate Blood Pressure 127/75 140/43 O2 Sat by Pulse 94 L 96 Oximetry Medical Decision Making - Medical Decision Making Was pt. sent in by a medical professional or institution ([facility], HOSPITALITY HOST, urgent care, hospital, or fdc...) When possible be specific @ -Rehab facility Did you speak to anyone other than the patient for history (EMS, parent, family, police, friend...)? What history was obtained from this source @ -EMS Did you review nursing and triage notes (agree or disagree)? Why? @ -I reviewed and agree with nursing and triage notes Were old charts reviewed (outside hosp., previous admission, EMS record, old EKG, old radiological studies, urgent care reports/EKG's, fdc records)? Report findings @ -I reviewed patient's recent discharge summary and procedure note from his cholecystostomy tube Differential Diagnosis (chest pain, altered mental status, abdominal pain women, abdominal pain men, vaginal bleeding, weakness, fever, dyspnea, syncope, headache, dizziness, GI bleed, back pain, seizure, CVA, palpatations, mental health, musculoskeletal)? @ -Differential Abdominal Pain Men: Appendicitis, cholecystitis, diverticulosis, ischemic bowel, pancreatitis, hep atitis, UTI, gastroenteritis, AAA, incarcerated hernia, bowel obstruction, constipation, inflammatory bowel, hepatitis, peptic ulcer disease, splenic infarction, perforated viscus, testicular torsion, this is not meant to be an all-inclusive list EKG interpreted by me (3pts min.). @ -Not done X-rays interpreted by me (1pt min.). @ -None done CT interpreted by me (1pt min.). @ -Yes and demonstrates dislodgment of his cholecystostomy tube as well as appendicitis U/S interpreted by me (1pt. min.). @ -None done What testing was considered but not performed or refused? (CT, X-rays, U/S, labs)? Why? @ -None What meds were considered but not given or refused? Why? @ -None Did you discuss the management of the patient with other professionals (professionals i.e. , PA, HOSPITALITY HOST, lab, RT, psych nurse, social work lecturer, mend worker, teacher, fiscal officer, ed case manager)? Give summary @ -Spoke with Dr. Cote who recommends that I consult cardiology Was smoking cessation discussed for >3mins.? @ -No Was critical care preformed (if so, how long)? @ -No Were there social determinants of health that impacted care today? How? (Homelessness, low income, unemployed, alcoholism, drug addiction, tr ansportation, low edu. Level, literacy, decrease access to med. care, halfway, rehab)? @ -Patient resides in rehab Was there de-escalation of care discussed even if they declined (Discuss DNR or withdrawal of care, Hospice)? DNR status @ -No What co-morbidities impacted this encounter? (DM, HTN, Smoking, COPD, CAD, Cancer, CVA, ARF, Chemo, Hep., AIDS, mental health diagnosis, sleep apnea, morbid obesity)? @ -Dementia Was patient admitted / discharged? Hospital course, mention meds given and rout e, prescriptions, significant lab abnormalities, going to OR and other pertinent info. @ -Upon arrival patient was placed into room 11. Thorough history and physical exam was performed. IV is established and laboratory studies are conducted. CT was performed and results are reviewed. I called and spoke with Dr. Cote. Patient was placed on antibiotics and admitted. Patient was admitted to Dr. Corcoran Undiagnosed new problem with uncertain prognosis? @ -No Drug Therapy requiring intensive monitoring for toxicity (Heparin, Nitro, Insulin, Cardizem)? @ -No Were any procedures done? @ -No Diagnosis/symptom? @ -Acute abdominal pain, acute nausea and vomiting, acute appendicitis, di slodgment of cholecystostomy tube Acute, or Chronic, or Acute on Chronic? @ -Acute Uncomplicated (without systemic symptoms) or Complicated (systemic symptoms)? @ -Complicated Side effects of treatment? @ -No Exacerbation, Progression, or Severe Exacerbation? @ -No Poses a threat to life or bodily function? How? (Chest pain, USA, NH, pneumonia, PE, COPD, DKA, ARF, appy, cholecystitis, CVA, Diverticulitis, Homicidal, Suicidal, threat to staff... and all critical care pts) @ -No - Lab Data Result diagrams: 01/28/24 06:38 01/28/24 06:33 Lab Results 01/22/24 01/22/24 01/22/24 Range/Units 17:00 17:00 17:00 WBC 18.3 H (3.8-10.6) k/uL RBC 4.79 (4.30-5.90) m/uL Hgb 12.8 L (13.0-17.5) gm/dL Hct 39.2 (39.0-53.0) % MCV 81.9 (80.0-100.0) fL MCH 26.7 (25.0-35.0) pg MCHC 32.6 (31.0-37.0) g/dL RDW 16.4 H (11.5-15.5) % Plt Count 299 (150-450) k/uL MPV 6.7 Neutrophils % 85 % Lymphocytes % 8 % Monocytes % 4 % Eosinophils % 2 % Basophils % 1 % Neutrophils # 15.6 H (1.3-7.7) k/uL Lymphocytes # 1.4 (1.0-4.8) k/uL Monocytes # 0.7 (0-1.0) k/uL Eosinophils # 0.3 (0-0.7) k/uL Basophils # 0.1 (0-0.2) k/uL Anisocytosis Slight Sodium 137 (137-145) mmol/L Potassium 4.6 (3.5-5.1) mmol/L Chloride 105 (98-107) mmol/L Carbon Dioxide 19 L (22-30) mmol/L Anion Gap 13 mmol/L BUN 22 H (9-20) mg/dL Creatinine 1.32 H (0.66-1.25) mg/dL Est GFR (CKD-EPI)AfAm 60 (>60 ml/min/1.73 sqM) Est GFR (CKD-EPI)NonAf 52 (>60 ml/min/1.73 sqM) Glucose 133 H (74-99) mg/dL Lactic Ac Sepsis Rflx Plasma Lactic Acid Felix 3.1 H* (0.7-2.0) mmol/L Calcium 8.8 (8.4-10.2) mg/dL Total Bilirubin 1.1 (0.2-1.3) mg/dL AST 24 (17-59) U/L ALT 16 (4-49) U/L Alkaline Phosphatase 135 H (38-126) U/L Total Protein 6.9 (6.3-8.2) g/dL Albumin 3.4 L (3.5-5.0) g/dL Lipase 92 (23-300) U/L 01/22/24 01/22/24 Range/Units 18:15 21:04 WBC (3.8-10.6) k/uL RBC (4.30-5.90) m/uL Hgb (13.0-17.5) gm/dL Hct (39.0-53.0) % MCV (80.0-100.0) fL MCH (25.0-35.0) pg MCHC (31.0-37.0) g/dL RDW (11.5-15.5) % Plt Count (150-450) k/uL MPV Neutrophils % % Lymphocytes % % Monocytes % % Eosinophils % % Basophils % % Neutrophils # (1.3-7.7) k/uL Lymphocytes # (1.0-4.8) k/uL Monocytes # (0-1.0) k/uL Eosinophils # (0-0.7) k/uL Basophils # (0-0.2) k/uL Anisocytosis Sodium (137-145) mmol/L Potassium (3.5-5.1) mmol/L Chloride (98-107) mmol/L Carbon Dioxide (22-30) mmol/L Anion Gap mmol/L BUN (9-20) mg/dL Creatinine (0.66-1.25) mg/dL Est GFR (CKD-EPI)AfAm (>60 ml/min/1.73 sqM) Est GFR (CKD-EPI)NonAf (>60 ml/min/1.73 sqM) Glucose (74-99) mg/dL Lactic Ac Sepsis Rflx Y Plasma Lactic Acid Felix 0.9 (0.7-2.0) mmol/L Calcium (8.4-10.2) mg/dL Total Bilirubin (0.2-1.3) mg/dL AST (17-59) U/L ALT (4-49) U/L Alkaline Phosphatase (38-126) U/L Total Protein (6.3-8.2) g/dL Albumin (3.5-5.0) g/dL Lipase (23-300) U/L Disposition Clinical Impression: Cholecystitis, Cholecystostomy tube dysfunction, Appendicitis, Leukocytosis, Abdominal pain Disposition: ADMITTED IP TO THIS [facility] Condition: Stable Is patient prescribed a controlled substance at d/c from ED?: No Time of Disposition: 21:16 Decision to Admit Reason: Admit from EC Decision Date: 01/22/24 Decision Time: 21:16
[2024-01-22] MEDS ORDERED: NALOXONE 0.4 MG/ML 1 ML VIAL IV PRN (21:30)
[2024-01-22] MEDS: PIPERACILLIN-TAZOBACTAM 3.375 GM in SODIUM CHLORIDE 0.9% 100 ML IVPB SCH (23:16)
--- NOTE | 2024-01-23 02:45 | P.HPIM ---
History of Present Illness H&P Date: 01/23/24 Chief Complaint: Abdominal pain 78-year-old male with complex past medical history Patient was recently discharged from the hospital about 20 days ago where he was treated for sepsis secondary to cholecystitis however he was deemed not a good surgical candidate and was treated with cholecystostomy tube and antibiotics. Patient was also diagnosed with NSTEMI and acute kidney injury at that time. Today he is coming in due to right lower quadrant abdominal pain that started yesterday Tuesday, he denies any associated nausea vomiting, (ED doctor documented nausea vomiting reported by patient daughter) denies any GI bleeding denies any diarrhea denies any fevers or chills. Patient reports that pain comes and goes pretty severe 8-10 out of 10 in severity no specific alleviating or aggravating factors. His cholecystostomy tube still functional with greenish drainage. Otherwise denies any changes in bowel or urinary habits. Otherwise history is limited by patient advanced dementia no further option of information is obtainable patient fails to go over details when asked family not available immediately at time of my evaluation review of systems Pertinent positives as noted in HPI. All other systems were reviewed and are negative on exam Constitutional: Patient reports right lower quadrant abdominal pain Eyes: Anicteric sclerae, moist conjunctiva, Pupils equal round reactive to light ENMT: NC/AT Oropharynx clear, no erythema, or exudates Neck: Supple, no masses, or JVD No carotid bruits No thyromegaly Lungs: Clear to auscultation Clear to percussion Normal respiratory effort, no accessory muscle use Cardiovascular: Heart regular in rate and rhythm, No murmurs, gallops, or rubs No peripheral edema Abdominal: Soft Diffuse tenderness to palpation, mainly tenderness in the right lower quadrant voluntary guarding rebound tenderness positive Abdomen moving with respiration Normoactive bowel sounds Cholecystostomy tube in place draining greenish liquid Extremities: No digital cyanosis No clubbing Pedal pulses intact and symmetrical Radial pulses intact and symmetrical No calf tenderness Psychiatric: Alert and oriented to person, place and time Neuro patient moving all 4 extremities spontaneously and purposefully Past Medical History Past Medical History: Coronary Artery Disease (CAD), Heart Failure, COPD, Patrick ntia, Diabetes Mellitus, GERD/Reflux, Hyperlipidemia, Hypertension, Memory Impairment, Myocardial Infarction (VT), Neurologic Disorder, Osteoarthritis (OA), Pneumonia, Prostate Disorder, Vascular Disorder Additional Past Medical History / Comment(s): Hx falls and diarrhea/incontinence since diagnosed with Covid Oct 2022, daughter thinks he may have had a minor heart attack when he had Covid as well. 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 PAD. Enlarged prostate. Chronic back pain. Hx bronchitis. Sinus issues. Last Myocardial Infarction Date:: 2014 History of Any Multi-Drug Resistant Organisms: None Reported Past Surgical History: Coronary Bypass/CABG, Orthopedic Surgery Additional Past Surgical History / Comment(s): 2014 CABG 4 vessel/bioprosthetic aortic valve, angiograms, aortagram with bilateral run-offs, PTBA/atherectomy left leg, left foot surgery for crush injury, colonoscopy, bilateral cataract removals. TAVR Oct 2023. Past Anesthesia/Blood Transfusion Reactions: No Reported Reaction Past Psychological History: Anxiety, Depression Smoking Status: Never smoker Past Alcohol Use History: Heavy Past Drug Use History: None Reported - Past Family History Father History Unknown: Yes Family Medical History: Congestive Heart Failure (CHF) Mother History Unknown: Yes Family Medical History: Congestive Heart Failure (CHF) Medications and Allergies Home Medications Medication Instructions Recorded Confirmed Type Omeprazole [PriLOSEC] 20 mg PO DAILY 02/23/15 12/23/23 History Donepezil [Aricept] 10 mg PO HS #30 03/13/15 12/23/23 Rx Tamsulosin HCl [Flomax] 0.4 mg PO DAILY 03/07/17 12/23/23 History Insulin Aspart [NovoLOG Flexpen] See Protocol SQ BID-W/MEALS 11/08/19 12/23/23 History Amitriptyline HCl [Elavil] 25 mg PO HS 03/16/22 12/23/23 History Potassium Chloride ER [K-Dur 10] 10 meq PO HS 03/16/22 12/23/23 History Insulin Glargine,Hum.rec.anlog 56 unit SQ W/LUNCH 04/05/22 12/23/23 History [Lantus Solostar Pen] Albuterol Nebulized [Ventolin 2.5 mg INHALATION RT-QID PRN 04/16/23 12/23/23 History Nebulized] Fluticasone Nasal [place] [Flonase 2 spr EA NOSTRIL DAILY PRN 04/16/23 12/23/23 History Nasal [place]] Atorvastatin [Lipitor] 80 mg PO HS 05/11/23 12/23/23 History Cholecalciferol [Vitamin D3 (125 125 mcg PO HS 05/11/23 12/23/23 History Mcg = 5000 Iu)] Furosemide [Lasix] 40 mg PO DAILY 05/11/23 12/23/23 History Empagliflozin [Jardiance] 10 mg PO DAILY 11/23/23 12/23/23 History Acetaminophen Tab [Tylenol] 650 mg PO Q4HR PRN tab 12/01/23 12/23/23 Rx Amoxic-Pot Clav 875-125Mg 1 tab PO Q12HR 7 Days #14 tab 01/02/24 Rx [Augmentin 875-125] Aspirin 81 mg PO DAILY #30 tab 01/02/24 Rx amLODIPine [Norvasc] 10 mg PO DAILY #0 01/02/24 12/23/23 Rx Allergies Allergy/AdvReac Type Severity Reaction Status Date / Time No Known Allergies Allergy Verified 12/23/23 11:27 Physical Exam Vitals: Vital Signs Temp Pulse Resp BP Pulse Ox 01/22/24 16:05 98.7 F 87 18 127/75 94 L Intake and Output 01/22/24 01/22/24 01/23/24 14:59 22:59 06:59 Other: Weight 104.326 kg Results CBC & Chem 7: 01/22/24 17:00 01/22/24 17:00 Labs: Abnormal Lab Results - Last 24 Hours (Table) 01/22/24 01/22/24 01/22/24 Range/Units 17:00 17:00 17:00 WBC 18.3 H (3.8-10.6) k/uL Hgb 12.8 L (13.0-17.5) gm/dL RDW 16.4 H (11.5-15.5) % Neutrophils # 15.6 H (1.3-7.7) k/uL Carbon Dioxide 19 L (22-30) mmol/L BUN 22 H (9-20) mg/dL Creatinine 1.32 H (0.66-1.25) mg/dL Glucose 133 H (74-99) mg/dL Plasma Lactic Acid Felix 3.1 H* (0.7-2.0) mmol/L Alkaline Phosphatase 135 H (38-126) U/L Albumin 3.4 L (3.5-5.0) g/dL Assessment and Plan Assessment: 78-year-old male with complex past medical history coming in for 1 day history of right lower quadrant abdominal pain no reported fevers chills nausea or vomiting he was recently treated for sepsis secondary to cholecystitis status po st cholecystostomy tube as he was a poor surgical candidate I discussed case with ED doctor and accepted the admission for acute appendicitis awaiting surgical evaluation with anticipated length of stay more than 2 mid[address] acute append[address] of the abdomen pelvis showed few scattered foci of gas in the upper abdomen which could be secondary to partial retraction of the percutaneous cholecyst ostomy tube with sideport open to the peritoneal cavity, colitis involving the transverse colon to the rectum, dilated appendix suspicious for acute appendicitis N.p.o. General surgery consultation Follow-up cultures Start patient on Zosyn 3.375 g IV piggyback every 8 hours Pain control with morphine 4 mg IV push every 4 hours as needed Gentle IV fluid hydration 75 cc/h due to patient history of advanced CHF avoid fluid overload Tylenol 650 mg p.o. every 6 hours for fever as needed Leukocytosis white count of 18.3, lactic acidosis 3.1, Chronic conditions Chronic mild anemia denies any bleeding current hemoglobin 12.8 continue to monitor Systolic CHF currently compensated avoid fluid overload continue with gentle IV fluid hydration Coronary artery disease status post CABG continue with aspirin and statin home medications Hypertension controlled continue with amlodipine home medication Diabetes mellitus insulin sliding scale Advanced dementia continue with Aricept Verify home medications Blood work showing AST 24 ALT 16 both unremarkable, total bilirubin 1.1 unremarkable Sodium 137 potassium 4.6 both unremarkable Full code DVT prophylaxis heparin subcu 3 times daily GI prophylaxis continue with Protonix daily
[2024-01-23] MEDS ORDERED: DEXTROSE 50% SYRINGE 50 ML IVP PRN (02:47)
[2024-01-23] MEDS: SODIUM CHLORIDE 0.9% 1,000 ML IV SCH (03:22)
[2024-01-23] MEDS: MORPHINE SULFATE 4 MG/ML SYRINGE IV PRN (06:30)
[2024-01-23 08:07] LABS: Glucose,Whole Blood 68 mg/dL (70-110)
[2024-01-23] MEDS: DEXTROSE 50% SYRINGE 50 ML IVP PRN (08:16)
[2024-01-23 08:39] LABS: Anisocytosis Slight; Basophils # (A) 0.1 k/uL (0-0.2); Basophils % (A) 0 %; Eosinophils # (A) 0.2 k/uL (0-0.7); Eosinophils % (A) 1 %; HGB 11.8 gm/dL (13.0-17.5); Hypochromasia Slight; Lymphocytes # (A) 0.9 k/uL (1.0-4.8); Lymphocytes % (A) 5 %; MCH 26.8 pg (25.0-35.0); MCHC 31.9 g/dL (31.0-37.0); MCV 84.1 fL (80.0-100.0); Mean Platelet Volume 7.3; Monocytes % (A) 6 %; Neutrophils # (A) 14.7 k/uL (1.3-7.7); Neutrophils % (A) 86 %; Platelet Count 263 k/uL (150-450); RDW 16.1 % (11.5-15.5)
[2024-01-23 08:39] LABS: Glucose,Whole Blood 137 mg/dL (70-110)
[2024-01-23] MEDS: INSULIN ASPART (NovoLOG) 100 UNIT/ML VIAL SQ SCH (09:04)
[2024-01-23 09:11] LABS: African American GFR (CKD) 58 (>60 ml/min/1.73 sqM); Anion Gap 10 mmol/L; Blood Urea Nitrogen 21 mg/dL (9-20); Calcium 8.4 mg/dL (8.4-10.2); Carbon Dioxide 21 mmol/L (22-30); Chloride 104 mmol/L (98-107); Non-African American GFR(CKD) 50 (>60 ml/min/1.73 sqM); Potassium 3.8 mmol/L (3.5-5.1); Sodium 135 mmol/L (137-145)
[2024-01-23 09:16] LABS: Glucose 46 mg/dL (74-99)
[2024-01-23] MEDS: ONDANSETRON 4 MG/2 ML VIAL IVP PRN ×2 (10:53→17:55)
--- NOTE | 2024-01-23 11:58 | P.PN ---
Subjective Progress Note Date: 01/23/24 Please refer to H&P for full documentation and physical exam. 78 year old M with PMH of COPD, DM, HTN, GERD, BPH, CAD with CABG, Dementia, Depression and anxiety, diastolic CHF, h/o TAVR presented to the ED for RLQ abdominal pain. Recently hospitalized from 12/23-01/02 for cholecystitis, NSTEMI and SAMANTHA. Found to be high risk for surgery, underwent cholecystostomy, discharged on PO antibiotics. He presents back to the hospital for RLQ pain that started on Tuesday. In the ED he underwent extensive evaluation. BP 127/75 HR 87 T 98.7F RR 18 94% on RA. CBC and CMP significant for WBC 18.3, Hg 12.8, bicarb 19, BUN 22, Cr 1.32, glu 133, alk phos 135, alb 3.4. Lactic acid 3.1. CT AP showed foci of gas in the upper abdomen, retraction of the percutaneous cholecystostomy tube, colitis of the transverse colon to the rectum and dilated appedix concerning for appendicitis. Patient was given Zosyn, Dilaudid, Zofran, Haldol and Morphine and admitted for further management. Surgery consulted, recommends CLD and repeat CT AP on 01/23. He was hypoglycemic on todays BMP which resolved with D50 administration. 01/22 Patient was seen. Sleepy. CBC WBC 17 Hg 11/8 Hct 37. BMP Na 135, bicarb 21, BUN 21, Cr 1.36, glu 46. Sepsis likely due to appendicitis: Zosyn 3.375g IV TID. NS at 75 cc/hr. Zofran 4 mg IV Q8H PRN N/V. Morphine 4 mg IV Q4H PRN for pain. Telemetry monitoring. Surgery consulted. Hypoglycemia: Stop ISS. Accuchecks ACHS. Hypoglycemic precautions. Acute kidney injury: IV hydration as above. h/o CAD, diastolic CHF and TAVR: Cardiology consulted. May need cardiac clearance for surgery. Resolved: Lactic acidosis Chronic conditions: COPD, DM, HTN, GERD, BPH, Dementia, Depression and anxiety CODE STATUS: FULL CODE DVT Prophylaxis: Heparin SQ GI Prophylaxis: Protonix. I have reviewed the results of the following tests: CBC, BMP. Objective - Vital Signs Vital signs: Vital Signs Temp 98.1 F 01/23/24 05:58 Pulse 67 01/23/24 05:58 Resp 18 01/23/24 05:58 BP 140/43 01/23/24 05:58 Pulse Ox 96 01/23/24 05:58 FiO2 Intake & Output 01/22/24 01/23/24 01/23/24 18:59 06:59 18:59 Weight 104.326 kg - Labs CBC & Chem 7: 01/23/24 07:03 01/23/24 07:03 Labs: Abnormal Lab Results - Last 24 Hours (Table) 01/22/24 01/22/24 01/22/24 Range/Units 17:00 17:00 17:00 WBC 18.3 H (3.8-10.6) k/uL Hgb 12.8 L (13.0-17.5) gm/dL Hct (39.0-53.0) % RDW 16.4 H (11.5-15.5) % Neutrophils # 15.6 H (1.3-7.7) k/uL Lymphocytes # (1.0-4.8) k/uL Carbon Dioxide 19 L (22-30) mmol/L BUN 22 H (9-20) mg/dL Creatinine 1.32 H (0.66-1.25) mg/dL Glucose 133 H (74-99) mg/dL POC Glucose (mg/dL) (70-110) mg/dL Plasma Lactic Acid Felix 3.1 H* (0.7-2.0) mmol/L Alkaline Phosphatase 135 H (38-126) U/L Albumin 3.4 L (3.5-5.0) g/dL 01/23/24 01/23/24 01/23/24 Range/Units 07:03 08:05 08:38 WBC 17.0 H (3.8-10.6) k/uL Hgb 11.8 L (13.0-17.5) gm/dL Hct 37.0 L (39.0-53.0) % RDW 16.1 H (11.5-15.5) % Neutrophils # 14.7 H (1.3-7.7) k/uL Lymphocytes # 0.9 L (1.0-4.8) k/uL Carbon Dioxide (22-30) mmol/L BUN (9-20) mg/dL Creatinine (0.66-1.25) mg/dL Glucose (74-99) mg/dL POC Glucose (mg/dL) 68 L 137 H (70-110) mg/dL Plasma Lactic Acid Felix (0.7-2.0) mmol/L Alkaline Phosphatase (38-126) U/L Albumin (3.5-5.0) g/dL
--- NOTE | 2024-01-23 12:04 | P.GSCN ---
History of Present Illness Consult date: 01/23/24 History of present illness: CHIEF COMPLAINT: Abdominal pain HISTORY OF PRESENT ILLNESS: This is a 78-year-old male who presented to the hospital from [facility] with abdominal pain and nausea. Patient had recent hospitalization for acute cholecystitis and had cholecystostomy tube placed at that time due to being a poor surgical candidate. Patient has a history of jess ntia. At this time he complains of right-sided abdominal pain that is getting better. He denies any nausea or vomiting reports having bowel movement. And reports that he is hungry and wants to eat. Patient has history of CABG, CHF and TAVR procedure November 30, 2023. Cholecystostomy tube was placed on December 28, 2023. There is bilious output through the cholecystostomy tube. Patient's white count is elevated as well as lactic acid level on admission. Patient had CT scan abdomen and pelvis that reported few scattered foci of gas in the upper abdomen which could be secondary to partial retraction of the percutaneous cholecystostomy tube with sideport is open to the peritoneal cavity. Colitis involving the transverse colon to the rectum. Dilated appendix. And a small left pleural effusion. Surgical service has been consulted. PAST MEDICAL HISTORY: See below PAST SURGICAL HISTORY: See below MEDICATIONS: See below ALLERGIES: See below SOCIAL HISTORY: No illicit drug use. REVIEW OF SYSTEMS: CONSTITUTIONAL: Denies fever or chills. HEENT: Denies blurred vision, vision changes, or eye pain. Denies hemoptysis CARDIOVASCULAR: Denies chest pain or pressure. RESPIRATORY: No shortness of breath. GASTROINTESTINAL: See HPI for pertinent findings HEMATOLOGIC: Denies bleeding disorders. GENITOURINARY: Denies any blood in urine or increased urinary frequency. SKIN: Denies pruitis. Denies rash. PHYSICAL EXAM: VITAL SIGNS: Reviewed GENERAL: Well-developed in no acute distress. HEENT: No sclera icterus. Extraocular movements grossly intact. Moist buccal mucosa. Head is atraumatic, normocephalic. No nasal drainage. ABDOMEN: Soft. Nondistended. Patient does have tenderness along the upper and lower right side. Cholecystostomy tube appears intact there is bilious drainage noted. NEUROLOGIC: Awake and alert. Able to answer some questions. LABORATORY DATA: WBC 18.3 down to 17 Hgb 11.8 platelets 263 Sodium is 135 potassium 3.8 creatinine is 1.36 Glucose 137 Lactic acid 3.1 down to 0.9 LFTs normal lipase 92 IMAGING: CT scan as stated above ASSESSMENT: 1. Right-sided abdominal pain with nausea 2. Acute cholecystitis status post cholecystostomy tube placed on December 28, 2023 3. Dilated appendix noted on CT scan 4. Colitis involving the transverse colon to the rectum noted on CT PLAN: -Patient scheduled for laparoscopic cholecystectomy tomorrow with Dr. Patel -Continue antibiotics -Clear liquid diet today -N.p.o. after midnight -Continue supportive care Physician Family Assistant note has been reviewed by physician. Signing provider agrees with the documented findings, assessment, and plan of care. I have personally seen and examined the patient, reviewed the [employer] /PAs history, exam and MDM and agree with the assessment and plan as written. Based on total visit time, I have performed more than 50% of the visit. As above: Patient known to our service. Was seen in the office last week. CAT scan reviewed with radiology. Foci of pneumoperitoneum primarily in the right upper quadrant noted. No significant fluid collection. Cholecystostomy drain clearly has come out somewhat. This is the most likely source of the pneumoperitoneum as there is air intermittently in the drainage tube. They have not been flushing it at the [place] [facility] as far as I can tell. Drain remains bilious in color. Mild elevation of alkaline phosphatase noted but no other significant abnormalities there. Cystic duct patency has not been confirmed wi th a cholecystogram which was ordered as an outpatient however now that the tube is partially out I think it is reasonable and best just to remove the drain at this time. The drain was removed. I did speak with the patient's daughter Sagrario by phone. She was updated as to what we are seeing on the study. Apparently he has been having significant diarrhea at the [place] [facility]. On the CAT scan the patient's colon has some mild wall thickening diffusely but more in the sigmoid colon. Will order stool culture and stool for C. difficile. Will order repeat CAT scan tomorrow to evaluate for any change in pneumoperitoneum or fluid collection. Tentatively he was placed on the operating room schedule for tomorrow for laparoscopic cholecystectomy depending on his clinical condition. If he is doing well and the CAT scan looks the same or better discussed the option of observation given the patient's comorbidities. Family is agreeable with this plan. May have clear liquids today. Nothing to eat or drink after midnight. Past Medical History Past Medical History: Coronary Artery Disease (CAD), Heart Failure, COPD, Dementia, Diabetes Mellitus, GERD/Reflux, Hyperlipidemia, Hypertension, Memory Impairment, Myocardial Infarction ([place]), Neurologic Disorder, Osteoarthritis (OA), Pneumonia, Prostate Disorder, Vascular Disorder Additional Past Medical History / Comment(s): Hx falls and diarrhea/incontinence since diagnosed with Covid Oct 2022, daughter thinks he may have had a minor heart attack when he had Covid as well. 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 PAD. Enlarged prostate. Chronic back pain. Hx bronchitis. Sinus issues. Last Myocardial Infarction Date:: 2014 History of Any Multi-Drug Resistant Organisms: None Reported Past Surgical History: Coronary Bypass/CABG, Orthopedic Surgery Additional Past Surgical History / Comment(s): 2014 CABG 4 vessel/bioprosthetic aortic valve, angiograms, aortagram with bilateral run-offs, PTBA/atherectomy left leg, left foot surgery for crush injury, colonoscopy, bilateral cataract removals. TAVR Oct 2023. Past Anesthesia/Blood Transfusion Reactions: No Reported Reaction Past Psychological History: Anxiety, Depression Smoking Status: Never smoker Past Alcohol Use History: Heavy Past Drug Use History: None Reported - Past Family History Father History Unknown: Yes Family Medical History: Congestive Heart Failure (CHF) Mother History Unknown: Yes Family Medical History: Congestive Heart Failure (CHF) Medications and Allergies Home Medications Medication Instructions Recorded Confirmed Type Omeprazole [PriLOSEC] 20 mg PO DAILY 02/23/15 01/23/24 History Donepezil [Aricept] 10 mg PO HS #30 03/13/15 01/23/24 Rx Tamsulosin HCl [Flomax] 0.4 mg PO DAILY 03/07/17 01/23/24 History Amitriptyline HCl [Elavil] 25 mg PO HS 03/16/22 01/23/24 History Potassium Chloride ER [K-Dur 10] 10 meq PO HS 03/16/22 01/23/24 History Insulin Glargine,Hum.rec.anlog 68 unit SQ W/LUNCH 04/05/22 01/23/24 History [Lantus Solostar Pen] Albuterol Nebulized [Ventolin 2.5 mg INHALATION RT-QID PRN 04/16/23 01/23/24 History Nebulized] Fluticasone Nasal [place] [Flonase 2 spr EA NOSTRIL DAILY PRN 04/16/23 01/23/24 History Nasal [place]] Atorvastatin [Lipitor] 80 mg PO HS 05/11/23 01/23/24 History Cholecalciferol [Vitamin D3 (125 125 mcg PO HS 05/11/23 01/23/24 History Mcg = 5000 Iu)] Furosemide [Lasix] 40 mg PO DAILY 05/11/23 01/23/24 History Empagliflozin [Jardiance] 10 mg PO DAILY 11/23/23 01/23/24 History Acetaminophen Tab [Tylenol] 650 mg PO Q4HR PRN tab 12/01/23 01/23/24 Rx Amoxic-Pot Clav 875-125Mg 1 tab PO Q12HR 7 Days #14 tab 01/02/24 01/23/24 Rx [Augmentin 875-125] Aspirin 81 mg PO DAILY #30 tab 01/02/24 01/23/24 Rx amLODIPine [Norvasc] 10 mg PO DAILY #0 01/02/24 01/23/24 Rx INSULIN LISPRO (HumaLOG) [humaLOG] See Protocol SQ ACHS 01/23/24 01/23/24 History Ondansetron [Zofran] 4 mg PO Q8HR PRN 01/23/24 01/23/24 History Zguard 1 applic TOPICAL DIRECTED PRN 01/23/24 01/23/24 History Zguard 1 applic TOPICAL BID 01/23/24 01/23/24 History hydrALAZINE HCL 10 mg PO TID 01/23/24 01/23/24 History Allergies Allergy/AdvReac Type Severity Reaction Status Date / Time No Known Allergies Allergy Verified 01/23/24 10:07 Surgical - Exam Vital Signs Temp Pulse Resp BP Pulse Ox 98.7 F 87 18 127/75 94 L 01/22/24 16:05 01/22/24 16:05 01/22/24 16:05 01/22/24 16:05 01/22/24 16:05 Results - Labs 01/23/24 07:03 01/23/24 07:03 Abnormal Lab Results - Last 24 Hours (Table) 01/22/24 01/22/24 01/22/24 Range/Units 17:00 17:00 17:00 WBC 18.3 H (3.8-10.6) k/uL Hgb 12.8 L (13.0-17.5) gm/dL Hct (39.0-53.0) % RDW 16.4 H (11.5-15.5) % Neutrophils # 15.6 H (1.3-7.7) k/uL Lymphocytes # (1.0-4.8) k/uL Sodium (137-145) mmol/L Carbon Dioxide 19 L (22-30) mmol/L BUN 22 H (9-20) mg/dL Creatinine 1.32 H (0.66-1.25) mg/dL Glucose 133 H (74-99) mg/dL POC Glucose (mg/dL) (70-110) mg/dL Plasma Lactic Acid Felix 3.1 H* (0.7-2.0) mmol/L Alkaline Phosphatase 135 H (38-126) U/L Albumin 3.4 L (3.5-5.0) g/dL 01/23/24 01/23/24 01/23/24 Range/Units 07:03 07:03 08:05 WBC 17.0 H (3.8-10.6) k/uL Hgb 11.8 L (13.0-17.5) gm/dL Hct 37.0 L (39.0-53.0) % RDW 16.1 H (11.5-15.5) % Neutrophils # 14.7 H (1.3-7.7) k/uL Lymphocytes # 0.9 L (1.0-4.8) k/uL Sodium 135 L (137-145) mmol/L Carbon Dioxide 21 L (22-30) mmol/L BUN 21 H (9-20) mg/dL Creatinine 1.36 H (0.66-1.25) mg/dL Glucose 46 L* (74-99) mg/dL POC Glucose (mg/dL) 68 L (70-110) mg/dL Plasma Lactic Acid Felix (0.7-2.0) mmol/L Alkaline Phosphatase (38-126) U/L Albumin (3.5-5.0) g/dL 01/23/24 Range/Units 08:38 WBC (3.8-10.6) k/uL Hgb (13.0-17.5) gm/dL Hct (39.0-53.0) % RDW (11.5-15.5) % Neutrophils # (1.3-7.7) k/uL Lymphocytes # (1.0-4.8) k/uL Sodium (137-145) mmol/L Carbon Dioxide (22-30) mmol/L BUN (9-20) mg/dL Creatinine (0.66-1.25) mg/dL Glucose (74-99) mg/dL POC Glucose (mg/dL) 137 H (70-110) mg/dL Plasma Lactic Acid Felix (0.7-2.0) mmol/L Alkaline Phosphatase (38-126) U/L Albumin (3.5-5.0) g/dL Diabetes panel 01/22/24 01/23/24 Range/Units 17:00 07:03 Sodium 137 135 L (137-145) mmol/L Potassium 4.6 3.8 (3.5-5.1) mmol/L Chloride 105 104 (98-107) mmol/L Carbon Dioxide 19 L 21 L (22-30) mmol/L BUN 22 H 21 H (9-20) mg/dL Creatinine 1.32 H 1.36 H (0.66-1.25) mg/dL Glucose 133 H 46 L* (74-99) mg/dL Calcium 8.8 8.4 (8.4-10.2) mg/dL AST 24 (17-59) U/L ALT 16 (4-49) U/L Alkaline Phosphatase 135 H (38-126) U/L Total Protein 6.9 (6.3-8.2) g/dL Albumin 3.4 L (3.5-5.0) g/dL Calcium panel 01/22/24 01/23/24 Range/Units 17:00 07:03 Calcium 8.8 8.4 (8.4-10.2) mg/dL Albumin 3.4 L (3.5-5.0) g/dL Pituitary panel 01/22/24 01/23/24 Range/Units 17:00 07:03 Sodium 137 135 L (137-145) mmol/L Potassium 4.6 3.8 (3.5-5.1) mmol/L Chloride 105 104 (98-107) mmol/L Carbon Dioxide 19 L 21 L (22-30) mmol/L BUN 22 H 21 H (9-20) mg/dL Creatinine 1.32 H 1.36 H (0.66-1.25) mg/dL Glucose 133 H 46 L* (74-99) mg/dL Calcium 8.8 8.4 (8.4-10.2) mg/dL Adrenal panel 01/22/24 01/23/24 Range/Units 17:00 07:03 Sodium 137 135 L (137-145) mmol/L Potassium 4.6 3.8 (3.5-5.1) mmol/L Chloride 105 104 (98-107) mmol/L Carbon Dioxide 19 L 21 L (22-30) mmol/L BUN 22 H 21 H (9-20) mg/dL Creatinine 1.32 H 1.36 H (0.66-1.25) mg/dL Glucose 133 H 46 L* (74-99) mg/dL Calcium 8.8 8.4 (8.4-10.2) mg/dL Total Bilirubin 1.1 (0.2-1.3) mg/dL AST 24 (17-59) U/L ALT 16 (4-49) U/L Alkaline Phosphatase 135 H (38-126) U/L Total Protein 6.9 (6.3-8.2) g/dL Albumin 3.4 L (3.5-5.0) g/dL
[2024-01-23 12:13] LABS: Glucose,Whole Blood 174 mg/dL (70-110)
[2024-01-23] MEDS: oxyCODONE-APAP 10-325MG 1 EACH TAB PO PRN (12:20)
[2024-01-23] MEDS: HEPARIN SODIUM,PORCINE 5,000 UNIT/ML 1 ML VIAL SQ SCH (12:33)
--- NOTE | 2024-01-23 12:46 | CONS ---
CONSULTATION HISTORY OF PRESENT ILLNESS: This is a 78-year-old gentleman with history of chronic systolic heart failure, coronary artery disease, status post bypass surgery, status post TAVR on 11/30/2023, type 2 diabetes, dementia, hypertension, dyslipidemia, and atrial fibrillation, who is brought into hospital by his daughters from what he tells me because he was not feeling well and apparently had fever and chills. He has right upper quadrant abdominal pain. The patient had a recent percutaneous cholecystostomy tube and there is a concern that this may have been displaced causing the abdominal discomfort. Cardiology had been consulted for unclear reasons. I am not sure if the patient is planning on going for surgery if it is and the surgeon should proceed with surgery, understanding that the patient is at increased risk for perioperative cardiac events without any absolute contraindications at this time. Given this questionable history of fever and chills, I am also going to perform blood cultures on him. EKG shows sinus rhythm, poor R-wave progression, nonspecific ST-T wave changes. PAST MEDICAL HISTORY: Significant for coronary artery disease, status post bypass surgery, status post TAVR and atrial fibrillation. Recent echocardiogram revealed normal LV systolic function, moderate pulmonary hypertension, and a bioprosthetic valve in aortic position with mild- to-moderate aortic regurgitation. MEDICATIONS: At home included: 1. Hydralazine. 2. Norvasc. 3. Flomax. 4. K-Dur. 5. Zofran. 6. Insulin. 7. Jardiance. 8. Aricept. 9. Lipitor. 10.Elavil. 11.Nebulizers. ALLERGIES: There are no known drug allergies. FAMILY HISTORY: Negative for premature coronary artery disease. SOCIAL HISTORY: Negative for current smoking, EtOH abuse, or drug abuse. REVIEW OF SYSTEMS: A review of systems has been performed. Pertinents are as documented. PHYSICAL EXAMINATION: GENERAL: Comfortable at rest. VITAL SIGNS: Afebrile, heart rate 60 beats per minute, blood pressure , respiratory rate 18, and O2 saturation 98% on room air. NECK: There is no jugular venous distention. Carotid upstroke is normal. There is no bruit. CHEST: Reveals diminished air entry at the bases. HEART: Reveals first and second heart sounds. Ejection systolic murmur in the aortic area. ABDOMEN: Soft. EXTREMITIES: Did not reveal any edema. Peripheral pulses are palpable. LABORATORY DATA: White cell count of 17, hemoglobin of 11.8. Potassium 3.8 and creatinine 1.36. Blood sugar low. ASSESSMENT: 1. Abdominal pain, management per Surgery. No absolute contraindications for surgery under anesthesia at this time. 2. Coronary artery disease, status post coronary artery bypass graft. 3. Status post aortic valve replacement. PLAN: I will perform blood cultures on him given the history of fever. MMODL / IJN: [id number] /
[2024-01-23] MEDS: LIDOCAINE 4% PATCH TOPICAL SCH (14:23)
[2024-01-23] MEDS: ASPIRIN 81 MG PO SCH (15:09)
[2024-01-23] MEDS: amLODIPine 10 MG TAB PO SCH (15:09)
[2024-01-23] MEDS: TAMSULOSIN 0.4 MG CAP.ER.24H PO SCH (15:09)
[2024-01-23] MEDS: PANTOPRAZOLE 40 MG TABLET PO SCH (15:09)
[2024-01-23] MEDS: METOCLOPRAMIDE 5 MG/ML 2 ML VIAL IVP PRN (16:34)
[2024-01-23 17:11] LABS: Glucose,Whole Blood 320 mg/dL (70-110)
[2024-01-23] MEDS: INSULIN ASPART (NovoLOG) 100 UNIT/ML VIAL SQ ONE (17:55)
[2024-01-23] MEDS: HYDROmorphone 1 MG/ML 1 ML SYRINGE IVP PRN (17:56)
[2024-01-23] MEDS: IV FLUID CONTINUATION 1,000 ML IV ONE (18:00)
[2024-01-23] MEDS: LACTATED RINGERS 1,000 ML IV ONE ×2 (18:00→18:45)
[2024-01-23 18:33] LABS: Amorphous Sediment,Urine Rare /hpf; Appearance,Urine Cloudy (Clear); Bacteria,Urine Occasional /hpf; Bilirubin,Urine Negative (Negative); Blood,Urine Negative (Negative); Color,Urine Yellow; Glucose,Urine (UA) 4+ (Negative); Ketones,Urine Negative (Negative); Leukocyte Esterase,Urine Small (Negative); Nitrite,Urine Negative (Negative); Protein,Urine 1+ (Negative); Specific Gravity,Urine 1.041 (1.001-1.035); Squamous Epithelial Cell,Urine <1 /hpf (0-4); Urobilinogen,Urine <2.0 mg/dL (<2.0); WBC,Urine 1 /hpf (0-5)
[2024-01-23] MEDS ORDERED: ROCURONIUM 10 MG/ML (5 ML VIAL) IV ONE (18:36)
[2024-01-23] MEDS ORDERED: MIDAZOLAM 2 MG/2 ML VIAL ONE (18:36)
[2024-01-23] MEDS ORDERED: PROPOFOL 10 MG/ML 20 ML VIAL IV ONE (18:36)
[2024-01-23] MEDS ORDERED: PHENYLEPHRINE 10 MG/ML VIAL ONE (18:36)
[2024-01-23] MEDS ORDERED: fentaNYL (PF) 50 MCG/ML 2 ML AMP ONE (18:36)
[2024-01-23] MEDS ORDERED: HYDROmorphone (PF) 1 MG/ML ONE (18:36)
[2024-01-23] MEDS ORDERED: SUCCINYLCHOLINE CHLORIDE 200 MG/10 ML VIAL IV ONE (18:36)
[2024-01-23] MEDS ORDERED: LIDOCAINE 1% INJ 10MG/ML (20 ML MDV) ONE (18:36)
--- NOTE | 2024-01-23 18:41 | P.PN ---
Progress Note - Text Progress Note Date: 01/23/24 Was contacted by nursing staff this afternoon. Patient apparently started having pain in the right back and right shoulder region that was becoming more severe throughout the afternoon. He had episodes of tachycardia. Spoke with family by phone. We decided to proceed with laparoscopic cholecystectomy, possible open laparotomy at this time given the increasing pain. I suspect the increased pain is related to bile leakage in the perihepatic region. Risks of bleeding, infection, scarring, conversion to an open procedure, possible need for further intervention, bile leak, bile duct injury, hernia, respiratory and cardiac compromise. They understand and wish to proceed.
[2024-01-23] MEDS: BUPIVACAINE (PF) 0.25% 30 ML VIAL SQ ONE ×2 (19:10)
[2024-01-23 21:12] LABS: Glucose,Whole Blood 200 mg/dL (70-110)
--- NOTE | 2024-01-23 21:18 | P.OP ---
Date of Procedure: 01/23/24 Procedure(s) Performed: PREOPERATIVE DIAGNOSIS: Chronic cholecystitis with suspected bile leak POSTOPERATIVE DIAGNOSIS: Chronic cholecystitis with focal gangrenous changes, bile leak PROCEDURE: Laparoscopic cholecystectomy turned open, open appendectomy SURGEON: Amanda EBL: 50 cc ANESTHESIA: Gen. COMPLICATIONS: None OPERATIVE PROCEDURE: The patient was brought and placed on the operating room table in the supine position. The patient was placed under general anesthesia at that time. The abdomen was prepped and draped in the usual sterile fashion. A small vertical infraumbilical incision was made. The fascia was grasped with the Kaye forceps. The fascia was retracted anteriorly. The Veress needle was advanced into the peritoneal cavity. The saline drop test was normal. Insufflation took place up to 15 mmHg. A 5 mm optical trocar was advanced and the peritoneal cavity. 2 additional 5 mm trochars were placed in the right upper quadrant under direct visualization. A 12 mm trocar was advanced into the epigastric incision site. The patient had inflammation between the abdominal fat in the upper quadrant. This was both to the liver edge and also the abdominal wall. Using a blunt dissector we were able to mobilize this fatty adhesions. This appeared to be related to subacute inflammatory changes. As soon as I swept of the pericolonic fat inferiorly I was able to look above the right lobe of the liver and in the gutter there was bennett bile present. The opening into the abdomen in the right upper quadrant from the cholecystostomy was noted. The gallbladder was then carefully dissected of surrounding adhesions. Again this took place using blunt dissection. There were a few foci measuring about 6 to 7 mm of gangrenous changes of the anterior wall of the gallbladder. The infundibulum was then bluntly dissected as well. Unfortunately I was unable to get any reliable visualization of the cystic duct. It was at that point that we converted to an open procedure. The pneumoperitoneum was evacuated. A right subcostal incision was made using scalpel. The subcutaneous fat and fascia was opened using electrocautery. The Bookwalter retractor was utilized. The gallbladder was grasped with a [place] forceps. We then dissected the posterior wall of the gallbladder which again had gangrenous changes. No significant bleeding was encountered. As we approached the infundibulum further blunt dissection took place both with a pusher and manually. This allowed me to identify the cystic duct. The cystic duct was then ligated using 2 separate 0 silk sutures. Small vessels were clipped or cauterized using LigaSure. The specimen was then passed off. We then irrigated the entirety of the abdominal cavity. No further bilious drainage was noted. Attention was paid to the appendix which was noted on recent CAT scan to be thickened and slightly enlarged. The appendix did appear to be mildly inflamed but did not appear to be the source of any of his issues currently. At the very tip of the appendix there appear to be a small 4 to 5 mm nodule. I decided to proceed with a appendectomy at that time. The base of the appendix was divided using a linear 75 blue load stapler. The mesentery was divided using LigaSure. The appendix was passed off. Further irrigation of the abdomen took place. The patient's small bowel and colon were inspected and appeared normal. The patient's stomach was somewhat adherent to the posterior wall the left lobe of the liver from the chronic upper abdominal inflammatory changes. No visible ulcer disease or perforation was identified. A drain was brought into the abdomen from the right mid abdomen and brought up to the right subcostal location. This was sutured in place using a 2-0 silk stitch. Following that the fascia was reapproximated in 2 layers using running double- stranded #1 PDS suture. The subcutaneous tissues were irrigated and closed using interrupted 3-0 Vicryl sutures. The skin was closed using lakisha. The laparoscopic incisions were closed using 4-0 Monocryl sutures. At the end of this procedure the sponge and needle counts were correct. DISPOSITION: Patient to be kept on the ventilator per anesthesia. He is in stable but somewhat guarded condition at this time. Full debriefing of the family took place. I also spoke with Dr. Brice from pulmonary who will evaluate the patient tomorrow.
[2024-01-23] MEDS: ZINC OXIDE PASTE (Z-GUARD) 1 APPLIC TOPICAL SCH (21:36)
[2024-01-23 21:52] LABS: ABG Base Excess -5.8 mmol/L; ABG HCO3 20 mmol/L (21-25); ABG PCO2 36 mmHg (35-45); ABG PH 7.35 (7.35-7.45); ABG PO2 >400 mmHg (83-108); ABG TCO2 21 mmol/L (19-24)
[2024-01-23 21:56] LABS: Allen Test Performed? yes
--- NOTE | 2024-01-23 22:26 | XR ---
EXAM: XR Chest, 1 View CLINICAL HISTORY: ITS.REASON XR Reason: ETT/ feeding tube TECHNIQUE: Frontal view of the chest. COMPARISON: No relevant prior studies available. FINDINGS: Lungs: Unremarkable. No consolidation. Pleural space: Unremarkable. No pneumothorax. Heart: Cardiomegaly. Prosthetic aortic valve. Mediastinum: Unremarkable. Normal mediastinal contour. Bones/joints: Sternotomy wires. No acute fracture. Tubes, lines and devices: Feeding tube terminates below the diaphragm. IMPRESSION: No acute findings in the chest.
--- NOTE | 2024-01-23 22:50 | XR ---
EXAM: XR Abdomen, 1 View CLINICAL HISTORY: ITS.REASON XR Reason: OGT placement TECHNIQUE: Frontal supine view of the abdomen/pelvis. COMPARISON: No relevant prior studies available. FINDINGS: Lower thorax: Small bilateral pleural effusions. Cardiomegaly. Gastrointestinal tract: Unremarkable. No dilation. Bones/joints: Unremarkable. No acute fracture. Soft tissues: Abdominal skin lakisha. Tubes, lines and devices: Feeding tube terminates in the stomach. Other findings: Prosthetic aortic valve. IMPRESSION: Feeding tube terminates in the stomach.
[2024-01-23] MEDS: CHLORHEXIDINE GLUCONATE 15 ML CUP MUCOUS MEM SCH (23:18)
[2024-01-23] MEDS: ATORVASTATIN 80 MG TAB PO SCH (23:18)
[2024-01-23] MEDS: DONEPEZIL 10 MG TAB PO SCH (23:18)
--- NOTE | 2024-01-24 01:32 | P.CNPUL ---
History of Present Illness Consult date: 01/24/24 Requesting physician: Naresh Patel Reason for consult: other (Postop ventilator management) Chief complaint: Nausea, vomiting, abdominal pain History of present illness: I am seeing this patient in consultation today 01/24/2024 in the intensive care unit as he is status postoperative day #1 following a laparoscopic cholecystectomy converted to open surgery with open appendectomy. Patient is a 78-year-old white male with past medical history significant for recent transcatheter aortic valve replacement on November 30, previous CABG, diabetes mellitus, hyperlipidemia, hypertension, peripheral vascular disease, BPH, advanced dementia, and recent inpatient hospitalization 12/23/2023 through 01/02/2024 for acute cholecystitis status post CT-guided percutaneous cholecystostomy tube placement on 12/28/2023. Patient was initially discharged home with home health care, but somehow ended up at [facility] on the [place] for rehab. Patient sent into the emergency room on 01/22/2024 with intractable nausea and vomiting and abdominal pain. Patient is currently intubated to mechanical ventilator, and I am unable to provide elicit any information for this reason. An abdominal/pelvis CT taken on admission showed few scattered foci of gas in the upper abdomen which could be secondary to partial retraction of the percutaneous cholecystostomy tube with sideport open to the peritoneal cavity. There was cholecystitis involving the transverse colon to the rectum. Dilated appendix which was new from previous imaging on 12/25/2023. And a small left pleural effusion. Patient was taken to the operating room on 01/23/2024 was found to have cholecystitis with focal gangrenous changes and bile leak. Patient underwent a laparoscopic cholecystectomy which was converted to open procedure with open appendectomy. Postoperatively, the patient was left on the mechanical ventilator and transferred to the intensive care unit. Patient is currently in room 258, he is intubated, and on the mechanical ventilator. He is sedated on propofol which is infusing at 20 mcg/kg/min. He is synchronous with the mechanical ventilator. He wakes with tactile stimulus, but does not follow any commands. Postoperative chest x-ray shows endotracheal tube above the karly, and orogastric tube coursing below the diaphragm, and a small left pleural effusion. No other acute cardiopulmonary pathology noted. Postoperative ABG as a PaO2 greater than 400, pCO2 of 36, and pH of 7.35. This was done on ventilator settings including assist-control, respiratory rate 18, tidal volume 450, FiO2 100%, and PEEP of 5. FiO2 was sent weaned to 40%. I am told the patient had an EBL of approximately 350 mL and was given 1 L normal saline bolus intraoperatively. Blood pressure remains normotensive. Not requiring any vasopressors. Normal saline is infusing at 75 mL/h. Postoperative CBC is a WBC count of 17, hemoglobin stable at 11.8, hematocrit 37, platelets 263. Postoperative BMP includes a sodium 135, potassium 3.8, chloride 104, serum bicarb 21, BUN 21, creatinine 1.36, glucose 200. Lactic acid level 0.9. Patient does have a indwelling urinary catheter draining 40 to 50 mL of urine per hour. Urinalysis has small leukocyte Estrace and pyuria. Patient is empirically covered on Zosyn for his abdomen. He is afebrile. Prognosis is guarded. Patient is being monitored in the intensive care unit. Review of Systems ROS unobtainable: due to endotracheal tube Past Medical History Past Medical History: Coronary Artery Disease (CAD), Heart Failure, COPD, Dementia, Diabetes Mellitus, GERD/Reflux, Hyperlipidemia, Hypertension, Memory Impairment, Myocardial Infarction ([place]), Neurologic Disorder, Osteoarthritis (OA), Pneumonia, Prostate Disorder, Vascular Disorder Additional Past Medical History / Comment(s): Hx falls and diarrhea/incontinence since diagnosed with Covid Oct 2022, daughter thinks he may have had a minor heart attack when he had Covid as well. 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 PAD. Enlarged prostate. Chronic back pain. Hx bronchitis. Sinus issues. Last Myocardial Infarction Date:: 2014 History of Any Multi-Drug Resistant Organisms: None Reported Past Surgical History: Coronary Bypass/CABG, Orthopedic Surgery Additional Past Surgical History / Comment(s): 2014 CABG 4 vessel/bioprosthetic aortic valve, angiograms, aortagram with bilateral run-offs, PTBA/atherectomy left leg, left foot surgery for crush injury, colonoscopy, bilateral cataract removals. TAVR Oct 2023, cholecystectomy tube dc'd 01/23/24 Past Anesthesia/Blood Transfusion Reactions: No Reported Reaction Past Psychological History: Anxiety, Depression Additional Psychological History / Comment(s): . Smoking Status: Never smoker Additional Past Alcohol Use History / Comment(s): Pt was a heavy drinker in the past but has not drank in over 20 years. Past Drug Use History: None Reported - Past Family History Father History Unknown: Yes Family Medical History: Congestive Heart Failure (CHF) Mother History Unknown: Yes Family Medical History: Congestive Heart Failure (CHF) Medications and Allergies Home Medications Medication Instructions Recorded Confirmed Type Omeprazole [PriLOSEC] 20 mg PO DAILY 02/23/15 01/23/24 History Donepezil [Aricept] 10 mg PO HS #30 03/13/15 01/23/24 Rx Tamsulosin HCl [Flomax] 0.4 mg PO DAILY 03/07/17 01/23/24 History Amitriptyline HCl [Elavil] 25 mg PO HS 03/16/22 01/23/24 History Potassium Chloride ER [K-Dur 10] 10 meq PO HS 03/16/22 01/23/24 History Insulin Glargine,Hum.rec.anlog 68 unit SQ W/LUNCH 04/05/22 01/23/24 History [Lantus Solostar Pen] Albuterol Nebulized [Ventolin 2.5 mg INHALATION RT-QID PRN 04/16/23 01/23/24 History Nebulized] Fluticasone Nasal Qulin [Flonase 2 spr EA NOSTRIL DAILY PRN 04/16/23 01/23/24 History Nasal Qulin] Atorvastatin [Lipitor] 80 mg PO HS 05/11/23 01/23/24 History Cholecalciferol [Vitamin D3 (125 125 mcg PO HS 05/11/23 01/23/24 History Mcg = 5000 Iu)] Furosemide [Lasix] 40 mg PO DAILY 05/11/23 01/23/24 History Empagliflozin [Jardiance] 10 mg PO DAILY 11/23/23 01/23/24 History Acetaminophen Tab [Tylenol] 650 mg PO Q4HR PRN tab 12/01/23 01/23/24 Rx Amoxic-Pot Clav 875-125Mg 1 tab PO Q12HR 7 Days #14 tab 01/02/24 01/23/24 Rx [Augmentin 875-125] Aspirin 81 mg PO DAILY #30 tab 01/02/24 01/23/24 Rx amLODIPine [Norvasc] 10 mg PO DAILY #0 01/02/24 01/23/24 Rx INSULIN LISPRO (HumaLOG) [humaLOG] See Protocol SQ ACHS 01/23/24 01/23/24 History Ondansetron [Zofran] 4 mg PO Q8HR PRN 01/23/24 01/23/24 History Zguard 1 applic TOPICAL DIRECTED PRN 01/23/24 01/23/24 History Zguard 1 applic TOPICAL BID 01/23/24 01/23/24 History hydrALAZINE HCL 10 mg PO TID 01/23/24 01/23/24 History Allergies Allergy/AdvReac Type Severity Reaction Status Date / Time No Known Allergies Allergy Verified 01/23/24 10:07 Physical Exam Vitals: Vital Signs Temp Pulse Pulse Resp BP BP Pulse Ox 01/24/24 00:20 88 0 L 109/53 100 01/24/24 00:12 01/24/24 00:10 88 15 109/53 100 01/24/24 00:00 89 18 126/60 100 01/23/24 23:50 89 18 126/60 100 01/23/24 23:40 90 18 126/60 100 01/23/24 23:30 89 18 109/54 100 01/23/24 23:20 91 18 109/54 100 01/23/24 23:10 90 18 109/54 100 01/23/24 23:00 93 18 126/58 100 01/23/24 22:50 93 14 126/58 100 01/23/24 22:40 96 4 L 126/58 100 01/23/24 22:30 92 3 L 119/57 100 01/23/24 22:20 93 0 L 119/57 100 01/23/24 22:10 99 8 L 119/57 100 01/23/24 22:00 93 20 159/68 100 01/23/24 21:58 01/23/24 21:50 96 15 159/68 100 01/23/24 21:40 104 H 18 159/68 100 01/23/24 21:30 97.7 F 101 H 38 H 135/73 100 01/23/24 21:20 105 H 18 135/73 100 01/23/24 21:11 01/23/24 21:10 100 6 L 135/73 100 01/23/24 21:09 39 H 01/23/24 20:57 01/23/24 18:00 110 H 17 150/66 99 01/23/24 16:33 97.8 F 102 H 20 123/61 100 01/23/24 12:16 93 18 115/77 96 01/23/24 08:11 97.5 F L 62 17 119/67 98 01/23/24 05:58 98.1 F 67 18 140/43 96 FiO2 01/24/24 00:20 01/24/24 00:12 40 01/24/24 00:10 01/24/24 00:00 40 01/23/24 23:50 01/23/24 23:40 01/23/24 23:30 01/23/24 23:20 01/23/24 23:10 01/23/24 23:00 01/23/24 22:50 01/23/24 22:40 01/23/24 22:30 01/23/24 22:20 01/23/24 22:10 01/23/24 22:00 01/23/24 21:58 40 01/23/24 21:50 01/23/24 21:40 01/23/24 21:30 01/23/24 21:20 01/23/24 21:11 100 01/23/24 21:10 01/23/24 21:09 01/23/24 20:57 100 01/23/24 18:00 01/23/24 16:33 01/23/24 12:16 01/23/24 08:11 01/23/24 05:58 Intake and Output 01/23/24 01/23/24 01/24/24 14:59 22:59 06:59 Intake Total 2079.173 150 Output Total 412 85 Balance 1667.173 65 Intake: IV 2000 Intake, IV Titration 79.173 150 Amount Sodium Chloride 0.9% 1, 75 150 000 ml @ 75 mls/hr IV . [id number] MELINA Rx#:[id number] propofoL 1,000 mg In 4.173 Empty Bag 1 bag @ 15 MCG/ KG/MIN 9.389 mls/hr IV . [id number] MELINA Rx#:[id number] Output: Drainage 30 Right Lower Abdomen 30 Urine 330 85 Emesis 2 Estimated Blood Loss 50 Other: # Voids 1 Weight 104.326 kg GENERAL EXAM: Sedated, synchronous mechanical ventilator, awakes to tactile stimuli but does not follow commands. HEAD: Normocephalic and atraumatic EYES: Normal reaction of pupils, equal size. NOSE: Clear with pink turbinates. THROAT: No erythema or exudates. NECK: No masses, no JVD. CHEST: No chest wall deformity. LUNGS: Equal air entry with no crackles, wheeze, rhonchi or dullness. Intubated to the mechanical ventilator. Limited amount of oral secretions. CVS: S1 and S2 normal with no audible murmur, regular rhythm. No extra heart sounds ABDOMEN: Postsurgical abdomen with lateral incisional dressing intact and dry. Incision appears approximated. There are also laparoscopic sites that are approximated. There is a JUNE drain draining a small amount of serosanguineous fluid and bulb is compressed. Abdomen is soft. Bowel sounds are hypoactive. SPINE: No scoliosis or deformity SKIN: No rashes CENTRAL NERVOUS SYSTEM: No focal deficits, tone is weak in all 4 extremities, but withdraws to pain in all 4 extremities.. EXTREMITIES: There is no peripheral edema, clubbing, or cyanosis. Peripheral pulses are intact. Results - Laboratory Findings CBC and BMP: 01/23/24 07:03 01/23/24 07:03 ABG ABG pH 7.35 (7.35-7.45) 01/23/24 21:50 ABG pCO2 36 mmHg (35-45) 01/23/24 21:50 ABG pO2 >400 mmHg (83-108) H 01/23/24 21:50 ABG O2 Saturation 100.0 % (94-97) H 01/23/24 21:50 Abnormal lab findings: Abnormal Labs 01/22/24 01/22/24 01/22/24 17:00 17:00 17:00 WBC 18.3 H Hgb 12.8 L Hct RDW 16.4 H Neutrophils # 15.6 H Lymphocytes # ABG pO2 ABG HCO3 ABG O2 Saturation Sodium Carbon Dioxide 19 L BUN 22 H Creatinine 1.32 H Glucose 133 H POC Glucose (mg/dL) Plasma Lactic Acid Felix 3.1 H* Alkaline Phosphatase 135 H Albumin 3.4 L Ur Specific [place] Urine Protein Urine Glucose (UA) Ur Leukocyte Esterase Amorphous Sediment Urine Bacteria 01/23/24 01/23/24 01/23/24 07:03 07:03 08:05 WBC 17.0 H Hgb 11.8 L Hct 37.0 L RDW 16.1 H Neutrophils # 14.7 H Lymphocytes # 0.9 L ABG pO2 ABG HCO3 ABG O2 Saturation Sodium 135 L Carbon Dioxide 21 L BUN 21 H Creatinine 1.36 H Glucose 46 L* POC Glucose (mg/dL) 68 L Plasma Lactic Acid Felix Alkaline Phosphatase Albumin Ur Specific [place] Urine Protein Urine Glucose (UA) Ur Leukocyte Esterase Amorphous Sediment Urine Bacteria 01/23/24 01/23/24 01/23/24 08:38 12:11 17:09 WBC Hgb Hct RDW Neutrophils # Lymphocytes # ABG pO2 ABG HCO3 ABG O2 Saturation Sodium Carbon Dioxide BUN Creatinine Glucose POC Glucose (mg/dL) 137 H 174 H 320 H Plasma Lactic Acid Felix Alkaline Phosphatase Albumin Ur Specific [place] Urine Protein Urine Glucose (UA) Ur Leukocyte Esterase Amorphous Sediment Urine Bacteria 01/23/24 01/23/24 01/23/24 17:42 21:11 21:50 WBC Hgb Hct RDW Neutrophils # Lymphocytes # ABG pO2 >400 H ABG HCO3 20 L ABG O2 Saturation 100.0 H Sodium Carbon Dioxide BUN Creatinine Glucose POC Glucose (mg/dL) 200 H Plasma Lactic Acid Felix Alkaline Phosphatase Albumin Ur Specific [place] 1.041 H Urine Protein 1+ H Urine Glucose (UA) 4+ H Ur Leukocyte Esterase Small H Amorphous Sediment Rare H Urine Bacteria Occasional H - Diagnostic Findings Chest x-ray: image reviewed Assessment and Plan Assessment: Chronic cholecystitis with gangrenous changes and bile leak from previous cholecystostomy tube status post laparoscopic cholecystectomy converted to open surgery with open appendectomy on 01/23/2024. Postoperative ventilator management, postoperative chest x-ray shows the endotracheal tube above the karly, an orogastric tube coursing below the diaphragm, and a small left pleural effusion. Acute blood loss anemia, expected outcome of surgery Leukocytosis, covered on empiric antibiotics for abdominal sepsis Brief episode of hypoglycemia Chronic kidney disease stage III History of severe aortic stenosis, status post recent transcatheter arctic valve replacement on November 30, 2023 History coronary artery disease with previous CABG First-degree AV block History of atrial fibrillation History of diabetes mellitus type 2 History of hyperlipidemia History of hypertension History of peripheral vascular disease History of BPH History of advanced dementia, takes Aricept outpatient Plan: Patient's medications, labs, chest x-ray reviewed Patient will remain on the mechanical ventilator at least overnight with current settings. Repeat ABG in the morning. Repeat chest x-ray in the morning. Will wean sedation for appropriate RASS, and assess mentation in the morning. Ventilator order set was added Continue empiric antibiotics. Blood cultures pending. Follow-up CT of the abdomen and pelvis without contrast is ordered for the morning. As needed analgesics are ordered, and the patient shows no signs of acute pain Continue to monitor JUNE output. DVT prophylaxis per general surgery. Patient has SCDs on. Protonix for GI prophylaxis. Prognosis is guarded related to above-mentioned comorbidities. Patient is being monitored in the intensive care unit I have personally seen and examined the patient, performed the documentation and the assessment and plan as written. Number of minutes spent on the visit:20 Time with Patient: Greater than 30
[2024-01-24 04:21] LABS: Glucose,Whole Blood 206 mg/dL (70-110)
[2024-01-24] MEDS ORDERED: DEXTROSE 50% SYRINGE 50 ML IVP PRN ×2 (04:24)
[2024-01-24] MEDS: INSULIN ASPART (NovoLOG) 100 UNIT/ML VIAL SQ SCH ×2 (04:37→06:44)
[2024-01-24 06:43] LABS: Glucose,Whole Blood 202 mg/dL (70-110)
[2024-01-24 08:02] LABS: Anisocytosis Slight; Basophils # (A) 0.1 k/uL (0-0.2); Basophils % (A) 0 %; Eosinophils # (A) 0.1 k/uL (0-0.7); Eosinophils % (A) 0 %; HCT 34.8 % (39.0-53.0); HGB 11.3 gm/dL (13.0-17.5); Hypochromasia Slight; Lymphocytes # (A) 0.8 k/uL (1.0-4.8); Lymphocytes % (A) 4 %; MCH 27.3 pg (25.0-35.0); MCHC 32.6 g/dL (31.0-37.0); MCV 83.9 fL (80.0-100.0); Mean Platelet Volume 6.8; Monocytes # (A) 0.8 k/uL (0-1.0); Monocytes % (A) 4 %; Neutrophils # (A) 19.2 k/uL (1.3-7.7); Neutrophils % (A) 92 %; Platelet Count 233 k/uL (150-450); RBC 4.15 m/uL (4.30-5.90); RDW 16.4 % (11.5-15.5)
[2024-01-24 09:09] LABS: ALT 11 U/L (4-49); AST 22 U/L (17-59); African American GFR (CKD) 40 (>60 ml/min/1.73 sqM); Albumin 2.2 g/dL (3.5-5.0); Alkaline Phosphatase 107 U/L (38-126); Anion Gap 8 mmol/L; Blood Urea Nitrogen 25 mg/dL (9-20); Calcium 7.4 mg/dL (8.4-10.2); Carbon Dioxide 18 mmol/L (22-30); Chloride 105 mmol/L (98-107); Glucose 166 mg/dL (74-99); Non-African American GFR(CKD) 35 (>60 ml/min/1.73 sqM); Potassium 4.6 mmol/L (3.5-5.1); Sodium 131 mmol/L (137-145); Total Bilirubin 1.1 mg/dL (0.2-1.3); Total Protein 5.1 g/dL (6.3-8.2)
--- NOTE | 2024-01-24 09:24 | XR ---
EXAMINATION TYPE: XR chest 1V DATE OF EXAM: 01/24/2024 COMPARISON: 01/23/2024 HISTORY: 78-year-old male ICU follow, daily chest x-rays TECHNIQUE: Single frontal view of the chest is obtained. FINDINGS: Median sternotomy wires are present with post-CABG clips. Extensive overlying tubes/catheters are pre sent. Suspect ET tube satisfactory with tip just below the level of the medial clavicular heads. Susp ect obscuration of the middle third aspect of the NG tube with the distal aspect seen below the diaph ragm. Attention on follow-up. Heart mildly enlarged. Mild interstitial density. Some patchy left basi lar opacity remains but with improving aeration from prior. IMPRESSION: 1. Attention on follow-up to reassess tubes/catheters given excessive overlying artifacts. Suspect ET tube and NG tube to be satisfactory. 2. Hypoventilatory changes. Some residual patchy left basilar opacity, improving from prior.
[2024-01-24] MEDS: DEXMEDETOMIDINE/0.9% NACL(PMX) 400 MCG in EMPTY BAG 1 BAG IV SCH (10:33)
[2024-01-24 11:44] LABS: Glucose,Whole Blood 163 mg/dL (70-110)
--- NOTE | 2024-01-24 13:47 | P.PN ---
Subjective Progress Note Date: 01/24/24 Hospital course 78 year old M with PMH of COPD, DM, HTN, GERD, BPH, CAD with CABG, Dementia, Depression and anxiety, diastolic CHF, h/o TAVR presented to the ED for RLQ abdominal pain. Recently hospitalized from 12/23-01/02 for cholecystitis, NSTEMI and SAMANTHA. Found to be high risk for surgery, underwent cholecystostomy, discharged on PO antibiotics. He presents back to the hospital for RLQ pain that started on Tuesday. In the ED he underwent extensive evaluation. BP 127/75 HR 87 T 98.7F RR 18 94% on RA. CBC and CMP significant for WBC 18.3, Hg 12.8, bicarb 19, BUN 22, Cr 1.32, glu 133, alk phos 135, alb 3.4. Lactic acid 3.1. CT AP showed foci of gas in the upper abdomen, retraction of the percutaneous cholecystostomy tube, colitis of the transverse colon to the rectum and dilated appedix concerning for appendicitis. Patient admitted to the medicine service. Patient had a appendectomy and cholecystectomy done by general surgery. After surgery patient remained intub ated and was transferred to the ICU. Patient seen this morning. He remains intubated and sedated. He is not on any pressors. Physical exam General examination -patient intubated and sedated Heart - + S1S2 no murmurs Lungs -diminished breath sounds bilaterally Abdomen surgical incisions are intact and dry. JUNE drain with serosanguineous fluid Extremities - No edema SHORT ORDER COOK -unable to assess as patient intubated and sedated Psych -unable to assess as patient is intubated and sedated Assessment and plan Sepsis on admission Likely source is appendicitis and bile leak from recent cholecystectomy Status post cholecystectomy and appendectomy Resume IV Zosyn Ventilatory dependent respiratory failure after surgery Manager Transition to manage vent Acute kidney injury IV fluids Monitor BMP Renal function is worsening today Coronary disease Chronic diastolic heart failure Recent TAVR Cardiology on board Stable Resume home cardiac meds Chronic conditions COPD Diabetes mellitus Hypertension GERD BPH Dementia Depression anxiety -Stable DVT prophylaxis: Subcu heparin Full code Objective - Vital Signs Vital signs: Vital Signs Temp 99.0 F 01/24/24 12:00 Pulse 78 01/24/24 12:00 Resp 18 01/24/24 12:00 BP 106/53 01/24/24 12:00 Pulse Ox 99 01/24/24 12:00 FiO2 40 03/05/24 12:00 Intake & Output 01/23/24 01/24/24 01/24/24 18:59 06:59 18:59 Intake Total 1999 754.757 677.618 Output Total 302 680 255 Balance 1698 74.757 422.618 Weight 104.326 kg 93.1 kg 93.1 kg Intake: IV 1999 Intake, IV Titration 754.757 677.618 Amount Sodium Chloride 0.9% 1, 675 600 000 ml @ 125 mls/hr IV . Q8H MELINA Rx#:[id number] propofoL 1,000 mg In 79.757 77.618 Empty Bag 1 bag @ 15 MCG/ KG/MIN 9.389 mls/hr IV . [id number] MELINA Rx#:[id number] Output: Gastric Drainage 200 Drainage 55 20 Right Lower Abdomen 55 20 Urine 300 375 235 Emesis 2 Estimated Blood Loss 50 Other: Voiding Method Indwelling Catheter Indwelling Catheter # Voids 1 - Labs CBC & Chem 7: 01/24/24 07:30 01/24/24 07:30 Labs: Abnormal Lab Results - Last 24 Hours (Table) 01/23/24 01/23/24 01/23/24 Range/Units 17:09 17:42 21:11 WBC (3.8-10.6) k/uL RBC (4.30-5.90) m/uL Hgb (13.0-17.5) gm/dL Hct (39.0-53.0) % RDW (11.5-15.5) % Neutrophils # (1.3-7.7) k/uL Lymphocytes # (1.0-4.8) k/uL ABG pO2 (83-108) mmHg ABG HCO3 (21-25) mmol/L ABG O2 Saturation (94-97) % Sodium (137-145) mmol/L Carbon Dioxide (22-30) mmol/L BUN (9-20) mg/dL Creatinine (0.66-1.25) mg/dL Glucose (74-99) mg/dL POC Glucose (mg/dL) 320 H 200 H (70-110) mg/dL Hemoglobin A1c (<=6.0) % Calcium (8.4-10.2) mg/dL Total Protein (6.3-8.2) g/dL Albumin (3.5-5.0) g/dL Ur Specific [place] 1.041 H (1.001-1.035) Urine Protein 1+ H (Negative) Urine Glucose (UA) 4+ H (Negative) Ur Leukocyte Esterase Small H (Negative) Amorphous Sediment Rare H (None) /hpf Urine Bacteria Occasional H (None) /hpf 01/23/24 01/24/24 01/24/24 Range/Units 21:50 04:19 06:42 WBC (3.8-10.6) k/uL RBC (4.30-5.90) m/uL Hgb (13.0-17.5) gm/dL Hct (39.0-53.0) % RDW (11.5-15.5) % Neutrophils # (1.3-7.7) k/uL Lymphocytes # (1.0-4.8) k/uL ABG pO2 >400 H (83-108) mmHg ABG HCO3 20 L (21-25) mmol/L ABG O2 Saturation 100.0 H (94-97) % Sodium (137-145) mmol/L Carbon Dioxide (22-30) mmol/L BUN (9-20) mg/dL Creatinine (0.66-1.25) mg/dL Glucose (74-99) mg/dL POC Glucose (mg/dL) 206 H 202 H (70-110) mg/dL Hemoglobin A1c (<=6.0) % Calcium (8.4-10.2) mg/dL Total Protein (6.3-8.2) g/dL Albumin (3.5-5.0) g/dL Ur Specific [place] (1.001-1.035) Urine Protein (Negative) Urine Glucose (UA) (Negative) Ur Leukocyte Esterase (Negative) Amorphous Sediment (None) /hpf Urine Bacteria (None) /hpf 01/24/24 01/24/24 01/24/24 Range/Units 07:30 07:30 07:30 WBC 21.0 H (3.8-10.6) k/uL RBC 4.15 L (4.30-5.90) m/uL Hgb 11.3 L (13.0-17.5) gm/dL Hct 34.8 L (39.0-53.0) % RDW 16.4 H (11.5-15.5) % Neutrophils # 19.2 H (1.3-7.7) k/uL Lymphocytes # 0.8 L (1.0-4.8) k/uL ABG pO2 (83-108) mmHg ABG HCO3 (21-25) mmol/L ABG O2 Saturation (94-97) % Sodium 131 L (137-145) mmol/L Carbon Dioxide 18 L (22-30) mmol/L BUN 25 H (9-20) mg/dL Creatinine 1.86 H (0.66-1.25) mg/dL Glucose 166 H (74-99) mg/dL POC Glucose (mg/dL) (70-110) mg/dL Hemoglobin A1c 8.6 H (<=6.0) % Calcium 7.4 L (8.4-10.2) mg/dL Total Protein 5.1 L (6.3-8.2) g/dL Albumin 2.2 L (3.5-5.0) g/dL Ur Specific [place] (1.001-1.035) Urine Protein (Negative) Urine Glucose (UA) (Negative) Ur Leukocyte Esterase (Negative) Amorphous Sediment (None) /hpf Urine Bacteria (None) /hpf 01/24/24 Range/Units 11:43 WBC (3.8-10.6) k/uL RBC (4.30-5.90) m/uL Hgb (13.0-17.5) gm/dL Hct (39.0-53.0) % RDW (11.5-15.5) % Neutrophils # (1.3-7.7) k/uL Lymphocytes # (1.0-4.8) k/uL ABG pO2 (83-108) mmHg ABG HCO3 (21-25) mmol/L ABG O2 Saturation (94-97) % Sodium (137-145) mmol/L Carbon Dioxide (22-30) mmol/L BUN (9-20) mg/dL Creatinine (0.66-1.25) mg/dL Glucose (74-99) mg/dL POC Glucose (mg/dL) 163 H (70-110) mg/dL Hemoglobin A1c (<=6.0) % Calcium (8.4-10.2) mg/dL Total Protein (6.3-8.2) g/dL Albumin (3.5-5.0) g/dL Ur Specific [place] (1.001-1.035) Urine Protein (Negative) Urine Glucose (UA) (Negative) Ur Leukocyte Esterase (Negative) Amorphous Sediment (None) /hpf Urine Bacteria (None) /hpf Microbiology - Last 24 Hours (Table) 01/22/24 22:17 Blood Culture - Preliminary Blood
--- NOTE | 2024-01-24 14:44 | P.PN ---
Subjective Progress Note Date: 01/24/24 CHIEF COMPLAINT: Chronic cholecystitis HISTORY OF PRESENT ILLNESS: Patient is currently in the ICU and is intubated and on mechanical ventilation. Patient is postop day #1 status post laparoscopic cholecystectomy turned open and open appendectomy. Patient became agitated when they tried to wean from the vent. Patient will remain on the vent today per pulmonary service. Afebrile. WBC is up from 17-21 Hgb 11.3 platelets 233 sodium is 131 potassium 4.6 creatinine is 1.86 PHYSICAL EXAM: VITAL SIGNS: Reviewed. GENERAL: no acute distress. ABDOMEN: Soft. Nondistended. Incisional dressing clean dry and intact. JUNE drain serosanguineous NEUROLOGIC: Intubated and sedated ASSESSMENT: 1. Chronic cholecystitis with focal gangrenous changes, bile leak 2. 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 Signing provider agrees with the documented findings, assessment, and plan of care. I have personally seen and examined the patient, reviewed the [employer] /PAs history, exam and MDM and agree with the assessment and plan as written. Based on total visit time, I have performed more than 50% of the visit. As above: Patient remains on the ventilator. He was becoming agitated when weaning earlier today. Labs noted. JUNE drain serosanguineous. Dressing is clean and dry. Continue antibiotics. Keep JUNE drain in place. Continue ventilatory weaning. Will follow. Objective - Vital Signs Vital signs: Vital Signs Temp 99.0 F 01/24/24 12:00 Pulse 78 01/24/24 12:00 Resp 18 01/24/24 12:00 BP 106/53 01/24/24 12:00 Pulse Ox 99 01/24/24 12:00 FiO2 40 01/24/24 12:00 Intake & Output 01/23/24 01/24/24 01/24/24 18:59 06:59 18:59 Intake Total 1999 754.757 677.618 Output Total 302 680 255 Balance 1698 74.757 422.618 Weight 104.326 kg 93.1 kg 93.1 kg Intake: IV 1999 Intake, IV Titration 754.757 677.618 Amount Sodium Chloride 0.9% 1, 675 600 000 ml @ 125 mls/hr IV . Q8H [facility] Rx#:[id number] propofoL 1,000 mg In 79.757 77.618 Empty Bag 1 bag @ 15 MCG/ KG/MIN 9.389 mls/hr IV . [id number] [facility] Rx#:[id number] Output: Gastric Drainage 200 Drainage 55 20 Right Lower Abdomen 55 20 Urine 300 375 235 Emesis 2 Estimated Blood Loss 50 Other: Voiding Method Indwelling Catheter Indwelling Catheter # Voids 1 - Labs CBC & Chem 7: 01/24/24 07:30 01/24/24 07:30 Labs: Abnormal Lab Results - Last 24 Hours (Table) 01/23/24 01/23/24 01/23/24 Range/Units 17:09 17:42 21:11 WBC (3.8-10.6) k/uL RBC (4.30-5.90) m/uL Hgb (13.0-17.5) gm/dL Hct (39.0-53.0) % RDW (11.5-15.5) % Neutrophils # (1.3-7.7) k/uL Lymphocytes # (1.0-4.8) k/uL ABG pO2 (83-108) mmHg ABG HCO3 (21-25) mmol/L ABG O2 Saturation (94-97) % Sodium (137-145) mmol/L Carbon Dioxide (22-30) mmol/L BUN (9-20) mg/dL Creatinine (0.66-1.25) mg/dL Glucose (74-99) mg/dL POC Glucose (mg/dL) 320 H 200 H (70-110) mg/dL Hemoglobin A1c (<=6.0) % Calcium (8.4-10.2) mg/dL Total Protein (6.3-8.2) g/dL Albumin (3.5-5.0) g/dL Ur Specific Startex 1.041 H (1.001-1.035) Urine Protein 1+ H (Negative) Urine Glucose (UA) 4+ H (Negative) Ur Leukocyte Esterase Small H (Negative) Amorphous Sediment Rare H (None) /hpf Urine Bacteria Occasional H (None) /hpf 01/23/24 01/24/24 01/24/24 Range/Units 21:50 04:19 06:42 WBC (3.8-10.6) k/uL RBC (4.30-5.90) m/uL Hgb (13.0-17.5) gm/dL Hct (39.0-53.0) % RDW (11.5-15.5) % Neutrophils # (1.3-7.7) k/uL Lymphocytes # (1.0-4.8) k/uL ABG pO2 >400 H (83-108) mmHg ABG HCO3 20 L (21-25) mmol/L ABG O2 Saturation 100.0 H (94-97) % Sodium (137-145) mmol/L Carbon Dioxide (22-30) mmol/L BUN (9-20) mg/dL Creatinine (0.66-1.25) mg/dL Glucose (74-99) mg/dL POC Glucose (mg/dL) 206 H 202 H (70-110) mg/dL Hemoglobin A1c (<=6.0) % Calcium (8.4-10.2) mg/dL Total Protein (6.3-8.2) g/dL Albumin (3.5-5.0) g/dL Ur Specific Startex (1.001-1.035) Urine Protein (Negative) Urine Glucose (UA) (Negative) Ur Leukocyte Esterase (Negative) Amorphous Sediment (None) /hpf Urine Bacteria (None) /hpf 01/24/24 01/24/24 01/24/24 Range/Units 07:30 07:30 07:30 WBC 21.0 H (3.8-10.6) k/uL RBC 4.15 L (4.30-5.90) m/uL Hgb 11.3 L (13.0-17.5) gm/dL Hct 34.8 L (39.0-53.0) % RDW 16.4 H (11.5-15.5) % Neutrophils # 19.2 H (1.3-7.7) k/uL Lymphocytes # 0.8 L (1.0-4.8) k/uL ABG pO2 (83-108) mmHg ABG HCO3 (21-25) mmol/L ABG O2 Saturation (94-97) % Sodium 131 L (137-145) mmol/L Carbon Dioxide 18 L (22-30) mmol/L BUN 25 H (9-20) mg/dL Creatinine 1.86 H (0.66-1.25) mg/dL Glucose 166 H (74-99) mg/dL POC Glucose (mg/dL) (70-110) mg/dL Hemoglobin A1c 8.6 H (<=6.0) % Calcium 7.4 L (8.4-10.2) mg/dL Total Protein 5.1 L (6.3-8.2) g/dL Albumin 2.2 L (3.5-5.0) g/dL Ur Specific Startex (1.001-1.035) Urine Protein (Negative) Urine Glucose (UA) (Negative) Ur Leukocyte Esterase (Negative) Amorphous Sediment (None) /hpf Urine Bacteria (None) /hpf 01/24/24 Range/Units 11:43 WBC (3.8-10.6) k/uL RBC (4.30-5.90) m/uL Hgb (13.0-17.5) gm/dL Hct (39.0-53.0) % RDW (11.5-15.5) % Neutrophils # (1.3-7.7) k/uL Lymphocytes # (1.0-4.8) k/uL ABG pO2 (83-108) mmHg ABG HCO3 (21-25) mmol/L ABG O2 Saturation (94-97) % Sodium (137-145) mmol/L Carbon Dioxide (22-30) mmol/L BUN (9-20) mg/dL Creatinine (0.66-1.25) mg/dL Glucose (74-99) mg/dL POC Glucose (mg/dL) 163 H (70-110) mg/dL Hemoglobin A1c (<=6.0) % Calcium (8.4-10.2) mg/dL Total Protein (6.3-8.2) g/dL Albumin (3.5-5.0) g/dL Ur Specific Startex (1.001-1.035) Urine Protein (Negative) Urine Glucose (UA) (Negative) Ur Leukocyte Esterase (Negative) Amorphous Sediment (None) /hpf Urine Bacteria (None) /hpf Microbiology - Last 24 Hours (Table) 01/22/24 22:17 Blood Culture - Preliminary Blood
--- NOTE | 2024-01-24 17:22 | P.CRDCN ---
History of Present Illness Consult date: 01/24/24 History of present illness: HISTORY OF PRESENTING ILLNESS Patient has a past medical history of TAVR valve and is previously known to Dr. Montgomery. On 01/23/2024 patient underwent laparoscopic cholecystectomy which was converted to open surgery with appendectomy. 78-year-old with past medical history of TAVR on November 30, previous CABG, type 2 diabetes, dyslipidemia, hypertension, PAD, BPH, dementia and recent hospitalization in December for acute cholecystitis s/p CT-guided percutaneous cholecystectomy tube placement on 12/28/2023 Postoperatively patient was left on mechanical ventilator support and was transferred to ICU. Postoperative labs showed sodium 135, potassium 3.8, chloride 104, bicarb 21, BUN 21, creatinine 1.6, lactate 0.9. BP 108/58, heart rate 72 ECG shows sinus rhythm with first-degree AV block and left bundle branch REVIEW OF SYSTEMS Could not be obtained as patient is intubated and sedated PHYSICAL EXAMINATION Lungs: On vent support, diminished breath sounds bilateral lung field Heart: Regular rate and rhythm, S1-S2, systolic murmur out of. Abdomen: Surgical dressing in place, no guarding. 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 Feel free to reach out in case of any followup questions. Past Medical History Past Medical History: Coronary Artery Disease (CAD), Heart Failure, COPD, Dementia, Diabetes Mellitus, GERD/Reflux, Hyperlipidemia, Hypertension, Memory Impairment, Myocardial Infarction (ID), Neurologic Disorder, Osteoarthritis (OA), Pneumonia, Prostate Disorder, Vascular Disorder Additional Past Medical History / Comment(s): Hx falls and diarrhea/incontinence since diagnosed with Covid Oct 2022, daughter thinks he may have had a minor heart attack when he had Covid as well. 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 PAD. Enlarged prostate. Chronic back pain. Hx bronchitis. Sinus issues. Last Myocardial Infarction Date:: 2014 History of Any Multi-Drug Resistant Organisms: None Reported Past Surgical History: Coronary Bypass/CABG, Orthopedic Surgery Additional Past Surgical History / Comment(s): 2014 CABG 4 vessel/bioprosthetic aortic valve, angiograms, aortagram with bilateral run-offs, PTBA/atherectomy left leg, left foot surgery for crush injury, colonoscopy, bilateral cataract removals. TAVR Oct 2023, cholecystectomy tube dc'd 01/23/24 Past Anesthesia/Blood Transfusion Reactions: No Reported Reaction Past Psychological History: Anxiety, Depression Additional Psychological History / Comment(s): . Smoking Status: Never smoker Additional Past Alcohol Use History / Comment(s): Pt was a heavy drinker in the past but has not drank in over 20 years. Past Drug Use History: None Reported - Past Family History Father History Unknown: Yes Family Medical History: Congestive Heart Failure (CHF) Mother History Unknown: Yes Family Medical History: Congestive Heart Failure (CHF) Medications and Allergies Home Medications Medication Instructions Recorded Confirmed Type Omeprazole [PriLOSEC] 20 mg PO DAILY 02/23/15 01/23/24 History Donepezil [Aricept] 10 mg PO HS #30 03/13/15 01/23/24 Rx Tamsulosin HCl [Flomax] 0.4 mg PO DAILY 03/07/17 01/23/24 History Amitriptyline HCl [Elavil] 25 mg PO HS 03/16/22 01/23/24 History Potassium Chloride ER [K-Dur 10] 10 meq PO HS 03/16/22 01/23/24 History Insulin Glargine,Hum.rec.anlog 68 unit SQ W/LUNCH 04/05/22 01/23/24 History [Lantus Solostar Pen] Albuterol Nebulized [Ventolin 2.5 mg INHALATION RT-QID PRN 04/16/23 01/23/24 History Nebulized] Fluticasone Nasal [place] [Flonase 2 spr EA NOSTRIL DAILY PRN 04/16/23 01/23/24 History Nasal [place]] Atorvastatin [Lipitor] 80 mg PO HS 05/11/23 01/23/24 History Cholecalciferol [Vitamin D3 (125 125 mcg PO HS 05/11/23 01/23/24 History Mcg = 5000 Iu)] Furosemide [Lasix] 40 mg PO DAILY 05/11/23 01/23/24 History Empagliflozin [Jardiance] 10 mg PO DAILY 11/23/23 01/23/24 History Acetaminophen Tab [Tylenol] 650 mg PO Q4HR PRN tab 12/01/23 01/23/24 Rx Amoxic-Pot Clav 875-125Mg 1 tab PO Q12HR 7 Days #14 tab 01/02/24 01/23/24 Rx [Augmentin 875-125] Aspirin 81 mg PO DAILY #30 tab 01/02/24 01/23/24 Rx amLODIPine [Norvasc] 10 mg PO DAILY #0 01/02/24 01/23/24 Rx INSULIN LISPRO (HumaLOG) [humaLOG] See Protocol SQ ACHS 01/23/24 01/23/24 Hi story Ondansetron [Zofran] 4 mg PO Q8HR PRN 01/23/24 01/23/24 History Zguard 1 applic TOPICAL DIRECTED PRN 01/23/24 01/23/24 History Zguard 1 applic TOPICAL BID 01/23/24 01/23/24 History hydrALAZINE HCL 10 mg PO TID 01/23/24 01/23/24 History Allergies Allergy/AdvReac Type Severity Reaction Status Date / Time No Known Allergies Allergy Verified 01/23/24 10:07 Physical Exam Vitals: Vital Signs Temp Pulse Pulse Resp BP BP Pulse Ox 01/24/24 16:00 01/24/24 15:32 01/24/24 14:30 72 18 108/54 100 01/24/24 14:00 73 18 106/56 99 01/24/24 13:30 76 18 116/56 99 01/24/24 13:00 78 18 122/56 100 01/24/24 12:30 78 18 111/51 99 01/24/24 12:00 99.0 F 78 18 106/53 99 01/24/24 11:30 80 18 111/57 99 01/24/24 11:00 86 18 128/59 99 01/24/24 10:43 01/24/24 10:30 88 18 148/63 99 01/24/24 10:00 95 28 H 119/54 99 01/24/24 09:30 86 18 116/58 99 01/24/24 09:00 84 18 105/59 99 01/24/24 08:30 81 18 113/53 98 01/24/24 08:07 01/24/24 08:00 99.3 F 82 18 104/62 99 01/24/24 07:30 80 20 106/52 99 01/24/24 07:00 81 18 119/52 99 01/24/24 06:50 81 18 119/52 99 01/24/24 06:40 80 18 119/52 99 05/24 06:30 80 18 113/52 99 01/24/24 06:20 80 18 113/52 99 05 06:10 80 18 113/52 99 05 06:00 81 18 110/51 99 01/24/24 05:50 81 18 110/51 99 01/24/24 05:40 81 18 110/51 99 05 05:30 81 18 118/57 99 01/24/24 05:20 82 19 118/57 100 01/24/24 05:10 81 19 118/57 100 01/24/24 05:00 82 20 99/68 100 01/24/24 04:50 81 20 99/68 100 01/24/24 04:40 82 18 99/68 99 01/24/24 04:30 85 18 106/50 99 05 04:20 85 18 106/50 99 01/24/24 04:10 84 18 106/50 99 01/24/24 04:00 98.2 F 84 18 98/51 99 01/24/24 03:50 82 18 98/51 99 01/24/24 03:46 01/24/24 03:40 82 18 98/51 100 05 03:30 82 18 112/54 100 05 03:20 82 18 112/54 100 01/24/24 03:10 82 18 112/54 100 05 03:00 81 18 111/57 100 05 02:50 82 0 L 111/57 100 05 02:40 83 0 L 111/57 100 03/05/24 02:30 83 2 L 111/54 100 05 02:20 83 0 L 111/54 99 03/05/24 02:10 84 0 L 111/54 100 /05 02:00 85 0 L 114/54 100 05 01:50 85 4 L 114/54 100 01/24/24 01:40 86 0 L 114/54 100 01/24/24 01:30 86 17 114/54 100 01/24/24 01:20 87 0 L 113/57 100 01/24/24 01:10 87 18 113/57 100 01/24/24 01:00 86 18 116/53 100 01/24/24 00:50 87 18 116/53 100 01/24/24 00:40 87 18 116/53 100 01/24/24 00:30 88 18 109/53 100 01/24/24 00:21 87 18 109/53 100 01/24/24 00:20 88 0 L 109/53 100 01/24/24 00:12 01/24/24 00:10 88 15 109/53 100 01/24/24 00:00 89 18 126/60 100 01/23/24 23:50 89 18 126/60 100 01/23/24 23:40 90 18 126/60 100 01/23/24 23:30 89 18 109/54 100 01/23/24 23:20 91 18 109/54 100 01/23/24 23:10 90 18 109/54 100 01/23/24 23:00 93 18 126/58 100 01/23/24 22:50 93 14 126/58 100 01/23/24 22:40 96 4 L 126/58 100 01/23/24 22:30 92 3 L 119/57 100 01/23/24 22:20 93 0 L 119/57 100 01/23/24 22:10 99 8 L 119/57 100 01/23/24 22:00 93 20 159/68 100 01/23/24 21:58 01/23/24 21:50 96 15 159/68 100 01/23/24 21:40 104 H 18 159/68 100 01/23/24 21:30 97.7 F 101 H 38 H 135/73 100 01/23/24 21:20 105 H 18 135/73 100 01/23/24 21:11 01/23/24 21:10 100 6 L 135/73 100 01/23/24 21:09 39 H 01/23/24 20:57 01/23/24 18:00 110 H 17 150/66 99 FiO2 01/24/24 16:00 40 01/24/24 15:32 40 03/05/24 14:30 01/24/24 14:00 40 01/24/24 13:30 01/24/24 13:00 01/24/24 12:30 01/24/24 12:00 40 01/24/24 11:30 01/24/24 11:00 01/24/24 10:43 40 01/24/24 10:30 01/24/24 10:00 40 01/24/24 09:30 01/24/24 09:00 01/24/24 08:30 01/24/24 08:07 40 01/24/24 08:00 40 01/24/24 07:30 01/24/24 07:00 01/24/24 06:50 01/24/24 06:40 01/24/24 06:30 01/24/24 06:20 01/24/24 06:10 01/24/24 06:00 01/24/24 05:50 01/24/24 05:40 01/24/24 05:30 01/24/24 05:20 01/24/24 05:10 01/24/24 05:00 01/24/24 04:50 01/24/24 04:40 01/24/24 04:30 01/24/24 04:20 01/24/24 04:10 01/24/24 04:00 40 01/24/24 03:50 01/24/24 03:46 40 01/24/24 03:40 01/24/24 03:30 01/24/24 03:20 01/24/24 03:10 01/24/24 03:00 01/24/24 02:50 01/24/24 02:40 01/24/24 02:30 01/24/24 02:20 01/24/24 02:10 01/24/24 02:00 01/24/24 01:50 01/24/24 01:40 01/24/24 01:30 01/24/24 01:20 01/24/24 01:10 01/24/24 01:00 01/24/24 00:50 01/24/24 00:40 01/24/24 00:30 01/24/24 00:21 01/24/24 00:20 03/05/24 00:12 40 01/24/24 00:10 01/24/24 00:00 40 01/23/24 23:50 01/23/24 23:40 01/23/24 23:30 01/23/24 23:20 01/23/24 23:10 01/23/24 23:00 01/23/24 22:50 01/23/24 22:40 01/23/24 22:30 01/23/24 22:20 01/23/24 22:10 01/23/24 22:00 01/23/24 21:58 40 01/23/24 21:50 01/23/24 21:40 01/23/24 21:30 01/23/24 21:20 01/23/24 21:11 100 01/23/24 21:10 01/23/24 21:09 01/23/24 20:57 100 01/23/24 18:00 Intake and Output 01/24/24 01/24/24 01/24/24 06:59 14:59 22:59 Intake Total 675.584 958.916 262.52 Output Total 570 330 50 Balance 105.584 628.916 212.52 Intake: Intake, IV Titration 675.584 958.916 262.52 Amount IV Fluid Continuation 1, 250 000 ml @ 0 mls/hr IV .STK -MED ONE Rx#:[id number] Sodium Chloride 0.9% 1, 600 850 000 ml @ 125 mls/hr IV . Q8H [facility] Rx#:[id number] propofoL 1,000 mg In 75.584 108.916 12.52 Empty Bag 1 bag @ 15 MCG/ KG/MIN 9.389 mls/hr IV . [id number] [facility] Rx#:[id number] Output: Gastric Drainage 200 Drainage 25 20 Right Lower Abdomen 25 20 Urine 345 310 50 Other: Voiding Method Indwelling Catheter Indwelling Catheter Weight 93.1 kg 93.1 kg Results 01/24/24 07:30 01/24/24 07:30 Cardiac Enzymes 01/24/24 Range/Units 07:30 AST 22 (17-59) U/L CBC 01/24/24 Range/Units 07:30 WBC 21.0 H (3.8-10.6) k/uL RBC 4.15 L (4.30-5.90) m/uL Hgb 11.3 L (13.0-17.5) gm/dL Hct 34.8 L (39.0-53.0) % Plt Count 233 (150-450) k/uL Comprehensive Metabolic Panel 01/24/24 Range/Units 07:30 Sodium 131 L (137-145) mmol/L Potassium 4.6 (3.5-5.1) mmol/L Chloride 105 (98-107) mmol/L Carbon Dioxide 18 L (22-30) mmol/L BUN 25 H (9-20) mg/dL Creatinine 1.86 H (0.66-1.25) mg/dL Glucose 166 H (74-99) mg/dL Calcium 7.4 L (8.4-10.2) mg/dL AST 22 (17-59) U/L ALT 11 (4-49) U/L Alkaline Phosphatase 107 (38-126) U/L Total Protein 5.1 L (6.3-8.2) g/dL Albumin 2.2 L (3.5-5.0) g/dL Current Medications Generic Name Dose Route Start Last Admin Trade Name Freq PRN Reason Stop Dose Admin Amlodipine Besylate 10 mg 01/23/24 09:00 01/24/24 08:33 Amlodipine 10 Mg Tab PO Not Given DAILY [facility] Aspirin 81 mg 01/23/24 09:00 01/24/24 08:33 Aspirin 81 Mg PO Not Given DAILY [facility]INA Atorvastatin Calcium 80 mg 01/23/24 21:00 01/23/24 23:18 Atorvastatin 80 Mg Tab PO Not Given HS MELINA Chlorhexidine Gluconate 15 ml 01/23/24 21:00 01/24/24 08:58 Chlorhexidine Gluconate 15 Ml Cup MUCOUS MEM 15 ml BID MELINA Administration Dextrose/Water 25 ml 01/23/24 02:47 01/23/24 08:16 Dextrose 50% Syringe 50 Ml IVP 25 ml PER PROTOCOL PRN Administration Hypoglycemia Protocol Dextrose/Water 50 ml 01/23/24 02:47 Dextrose 50% Syringe 50 Ml IVP PER PROTOCOL PRN Hypoglycemia Protocol Dextrose/Water 25 ml 01/24/24 04:24 Dextrose 50% Syringe 50 Ml IVP PER PROTOCOL PRN Hypoglycemia Protocol Dextrose/Water 50 ml 01/24/24 04:24 Dextrose 50% Syringe 50 Ml IVP PER PROTOCOL PRN Hypoglycemia Protocol Donepezil HCl 10 mg 01/23/24 21:00 01/23/24 23:18 Donepezil 10 Mg Tab PO Not Given HS MELINA Heparin Sodium (Porcine) 5,000 unit 01/23/24 08:00 01/24/24 16:42 Heparin Sodium,Porcine 5,000 Unit/Ml 1 Ml Vial SQ 5,000 unit Q8HR [facility]ELINA Administration Hydromorphone HCl 1 mg 01/23/24 17:20 01/24/24 16:39 Hydromorphone 1 Mg/Ml 1 Ml Syringe IVP 1 mg Q2H PRN Administration Pain Piperacillin Sod/Tazobactam 100 mls @ 25 mls/hr 01/23/24 00:00 01/24/24 16:42 Sod 3.375 gm/ Sodium Chloride IVPB 25 mls/hr Q8HR [facility]ELINA Administration Protocol Sodium Chloride 1,000 mls @ 125 mls/hr 01/23/24 02:45 01/24/24 12:19 Saline 0.9% IV 125 mls/hr .Q8H [facility] Administration Propofol 1,000 mg/ IV Solution 100 mls @ 9.389 mls/hr 01/23/24 21:00 01/24/24 15:00 IV 0 mcg/kg/min .[id number] [facility] 0 mls/hr Titration Protocol 15 MCG/KG/MIN Dexmedetomidine HCl 400 mcg/ 100 mls @ 4.655 mls/hr 01/24/24 10:15 01/24/24 10:33 IV Solution IV 0.2 mcg/kg/hr .[id number] [facility] 4.655 mls/hr Administration Protocol 0.2 MCG/KG/HR Insulin Aspart 0 unit 01/24/24 06:00 01/24/24 12:19 Insulin Aspart (Novolog) 100 Unit/Ml Vial SQ 2 unit Q6H [facility] Administration Protocol Lidocaine 1 patch 01/23/24 14:30 01/24/24 08:58 Lidocaine 4% Patch TOPICAL 1 patch DAILY MELINA Administration Protocol Metoclopramide HCl 5 mg 01/23/24 16:23 01/23/24 16:34 Metoclopramide 5 Mg/Ml 2 Ml Vial IVP 5 mg Q6HR PRN Administration Nausea And Vomiting Morphine Sulfate 4 mg 01/22/24 21:30 01/23/24 15:16 Morphine Sulfate 4 Mg/Ml Syringe IV 4 mg Q4HR PRN Administration Severe Pain (Scale 7 to 10) Naloxone HCl 0.2 mg 01/22/24 21:30 Naloxone 0.4 Mg/Ml 1 Ml Vial IV Q2M PRN Opioid Reversal Ondansetron HCl 4 mg 01/23/24 16:23 01/23/24 17:55 Ondansetron 4 Mg/2 Ml Vial IVP 4 mg Q6HR PRN Administration Nausea And Vomiting Oxycodone/Acetaminophen 1 each 01/23/24 12:00 01/23/24 12:20 Oxycodone-Apap 10-325mg 1 Each Tab PO 1 each Q4HR PRN Administration Pain Pantoprazole Sodium 40 mg 01/23/24 09:00 01/24/24 08:59 Pantoprazole 40 Mg Tablet PO Not Given DAILY MELINA Petrolatum 1 applic 01/23/24 21:00 01/24/24 08:58 Zinc Oxide Paste (Z-Guard) 1 Applic TOPICAL 1 applic BID MELINA Administration Protocol Tamsulosin HCl 0.4 mg 01/23/24 09:00 01/24/24 08:34 Tamsulosin 0.4 Mg Cap.Er.24h PO Not Given DAILY MELINA Intake and Output 01/24/24 01/24/24 01/24/24 06:59 14:59 22:59 Intake Total 675.584 958.916 262.52 Output Total 570 330 50 Balance 105.584 628.916 212.52 Intake: Intake, IV Titration 675.584 958.916 262.52 Amount IV Fluid Continuation 1, 250 000 ml @ 0 mls/hr IV .STK -[facility] ONE Rx#:[id number] Sodium Chloride 0.9% 1, 600 850 000 ml @ 125 mls/hr IV . Q8H [facility] Rx#:[id number] propofoL 1,000 mg In 75.584 108.916 12.52 Empty Bag 1 bag @ 15 MCG/ KG/MIN 9.389 mls/hr IV . [id number] [facility] Rx#:[id number] Output: Gastric Drainage 200 Drainage 25 20 Right Lower Abdomen 25 20 Urine 345 310 50 Other: Voiding Method Indwelling Catheter Indwelling Catheter Weight 93.1 kg 93.1 kg Patient Weight 01/25/24 06:59 Weight 93.1 kg 01/24/24 07:30 01/24/24 07:30
[2024-01-24 18:11] LABS: Glucose,Whole Blood 131 mg/dL (70-110)
[2024-01-24 23:59] LABS: Glucose,Whole Blood 159 mg/dL (70-110)
[2024-01-25 05:02] LABS: Anisocytosis Slight; HCT 25.8 % (39.0-53.0); Hypochromasia Slight; MCV 84.8 fL (80.0-100.0); Mean Platelet Volume 7.7; Platelet Count 144 k/uL (150-450); RBC 3.04 m/uL (4.30-5.90); RDW 16.6 % (11.5-15.5); WBC 16.2 k/uL (3.8-10.6)
[2024-01-25 05:06] LABS: African American GFR (CKD) 63 (>60 ml/min/1.73 sqM); Anion Gap 6 mmol/L; Blood Urea Nitrogen 25 mg/dL (9-20); Carbon Dioxide 12 mmol/L (22-30); Chloride 118 mmol/L (98-107); Glucose 109 mg/dL (74-99); Magnesium 1.7 mg/dL (1.6-2.3); Non-African American GFR(CKD) 55 (>60 ml/min/1.73 sqM); Phosphorus 3.6 mg/dL (2.5-4.5); Potassium 3.5 mmol/L (3.5-5.1); Sodium 136 mmol/L (137-145)
[2024-01-25 05:16] LABS: Calcium 5.5 mg/dL (8.4-10.2)
[2024-01-25 05:17] LABS: HGB 8.5 gm/dL (13.0-17.5)
[2024-01-25] MEDS ORDERED: Magnesium Replacement Protocol 1 EACH MISC MISCELLANE PRN (05:44)
[2024-01-25] MEDS ORDERED: Potassium Replacement Protocol 1 EACH MISC MISCELLANE PRN (05:44)
[2024-01-25] MEDS: CALCIUM GLUCONATE IN NACL 2 GM in SALINE 1 100ML.BAG IVPB ONE (05:58)
[2024-01-25] MEDS: POTASSIUM BICARBONATE/CIT AC 20 MEQ TABLET.EFF PO ONE (05:58)
[2024-01-25 06:05] LABS: Glucose,Whole Blood 186 mg/dL (70-110)
[2024-01-25 06:21] LABS: ABG Base Excess -6.6 mmol/L; ABG HCO3 19 mmol/L (21-25); ABG Oxygen Saturation 97.9 % (94-97); ABG PCO2 32 mmHg (35-45); ABG PH 7.37 (7.35-7.45); ABG PO2 100 mmHg (83-108); ABG TCO2 20 mmol/L (19-24); Allen Test Performed? Yes
[2024-01-25] MEDS: MAGNESIUM SULFATE-D5W PMX 1 GM in DEXTROSE/WATER 1 100ML.BAG IVPB ONE (06:31)
[2024-01-25] MEDS: DEXTROSE 5% IN WATER 1,000 ML with SODIUM BICARB (1 MEQ/ML) 150 ML IV SCH (06:56)
--- NOTE | 2024-01-25 10:16 | XR ---
EXAMINATION TYPE: XR chest 1V DATE OF EXAM: 01/25/2024 COMPARISON: 01/24/2024 HISTORY: 78-year-old male daily chest x-ray, ICU follow-up TECHNIQUE: Single frontal view of the chest is obtained. FINDINGS: ET tube tip at the level of the medial clavicular heads. NG tube courses below the diaphra gm. Patient rotated towards the right altering the normal cardiomediastinal contours. Heart mildly en larged. Interstitial density persists. Retrocardiac opacification worsened. Median sternotomy wires. IMPRESSION: Rotated exam with similar mild cardiomegaly. There may be developing mild pulmonary vasc ular congestion. Worsening retrocardiac atelectasis and or consolidation.
[2024-01-25 11:02] LABS: Allen Test Performed? Yes
[2024-01-25 11:20] LABS: ABG Base Excess -5.1 mmol/L; ABG HCO3 20 mmol/L (21-25); ABG Oxygen Saturation 97.6 % (94-97); ABG PCO2 36 mmHg (35-45); ABG PH 7.36 (7.35-7.45); ABG PO2 100 mmHg (83-108); ABG TCO2 21 mmol/L (19-24)
[2024-01-25 11:59] LABS: Glucose,Whole Blood 246 mg/dL (70-110)
--- NOTE | 2024-01-25 12:01 | P.PN ---
Subjective Progress Note Date: 01/25/24 Principal diagnosis: Cholecystitis with bile leak Patient remains on the ventilator. He is hemodynamically stable. JUNE drain serosanguineous. They are currently weaning him and he is much more comfortable today. Plans for hopeful extubation today. Objective - Vital Signs Vital signs: Vital Signs Temp 98.0 F 01/25/24 08:00 Pulse 68 01/25/24 11:00 Resp 26 H 01/25/24 11:36 BP 98/52 01/25/24 11:00 Pulse Ox 98 01/25/24 11:00 FiO2 40 01/25/24 11:36 Intake & Output 01/24/24 01/25/24 01/25/24 18:59 06:59 18:59 Intake Total 6741.005 5196.720 515 Output Total 440 430 263 Balance 8166.956 7887.720 252 Weight 93.1 kg 93.9 kg Intake: IV 300 Dextrose 5% in Water 1, 300 000 ml @ 75 mls/hr IV . [id number] MELINA with Sodium Bicarb (1 Meq/ml) 150 ml Rx#:[id number] Intake, IV Titration 0365.282 2715.720 175 Amount Dexmedetomidine/0.9% NaCl 129.720 (Pmx) 400 mcg In Empty Bag 1 bag @ 0.2 MCG/KG/HR 4.655 mls/hr IV .[id number] MELINA Rx#:[id number] Dextrose 5% in Water 1, 75 000 ml @ 75 mls/hr IV . [id number] MELINA with Sodium Bicarb (1 Meq/ml) 150 ml Rx#:[id number] IV Fluid Continuation 1, 250 000 ml @ 0 mls/hr IV .STK -MED ONE Rx#:[id number] Magnesium Sulfate-D5w Pmx 100 1 gm In Dextrose/Water 1 100ml.bag @ 100 mls/hr IVPB ONCE ONE Rx#: [id number] Sodium Chloride 0.9% 1, 1100 1375 0 000 ml @ 125 mls/hr IV . Q8H MELINA Rx#:[id number] propofoL 1,000 mg In 121.436 Empty Bag 1 bag @ 15 MCG/ KG/MIN 9.389 mls/hr IV . [id number] MELINA Rx#:[id number] Tube Feeding 170 40 Other 90 Output: Drainage 20 5 3 Right Lower Abdomen 20 5 3 Urine 420 425 260 Other: Voiding Method Indwelling Catheter Indwelling Catheter Indwelling Catheter - Exam Abdomen: Soft, mild distention, dressing clean and dry, drain serosanguineous, minimal tenderness - Labs CBC & Chem 7: 01/25/24 04:26 01/25/24 04:26 Labs: Abnormal Lab Results - Last 24 Hours (Table) 01/24/24 01/24/24 01/25/24 Range/Units 18:09 23:58 04:26 WBC 16.2 H (3.8-10.6) k/uL RBC 3.04 L (4.30-5.90) m/uL Hgb 8.5 L D (13.0-17.5) gm/dL Hct 25.8 L (39.0-53.0) % RDW 16.6 H (11.5-15.5) % Plt Count 144 L (150-450) k/uL ABG pCO2 (35-45) mmHg ABG HCO3 (21-25) mmol/L ABG O2 Saturation (94-97) % Sodium (137-145) mmol/L Chloride (98-107) mmol/L Carbon Dioxide (22-30) mmol/L BUN (9-20) mg/dL Creatinine (0.66-1.25) mg/dL Glucose (74-99) mg/dL POC Glucose (mg/dL) 131 H 159 H (70-110) mg/dL Calcium (8.4-10.2) mg/dL 01/25/24 01/25/24 01/25/24 Range/Units 04:26 06:03 06:20 WBC (3.8-10.6) k/uL RBC (4.30-5.90) m/uL Hgb (13.0-17.5) gm/dL Hct (39.0-53.0) % RDW (11.5-15.5) % Plt Count (150-450) k/uL ABG pCO2 32 L (35-45) mmHg ABG HCO3 19 L (21-25) mmol/L ABG O2 Saturation 97.9 H (94-97) % Sodium 136 L (137-145) mmol/L Chloride 118 H (98-107) mmol/L Carbon Dioxide 12 L (22-30) mmol/L BUN 25 H (9-20) mg/dL Creatinine 1.27 H (0.66-1.25) mg/dL Glucose 109 H (74-99) mg/dL POC Glucose (mg/dL) 186 H (70-110) mg/dL Calcium 5.5 L* (8.4-10.2) mg/dL 01/25/24 01/25/24 Range/Units 11:05 11:58 WBC (3.8-10.6) k/uL RBC (4.30-5.90) m/uL Hgb (13.0-17.5) gm/dL Hct (39.0-53.0) % RDW (11.5-15.5) % Plt Count (150-450) k/uL ABG pCO2 (35-45) mmHg ABG HCO3 20 L (21-25) mmol/L ABG O2 Saturation 97.6 H (94-97) % Sodium (137-145) mmol/L Chloride (98-107) mmol/L Carbon Dioxide (22-30) mmol/L BUN (9-20) mg/dL Creatinine (0.66-1.25) mg/dL Glucose (74-99) mg/dL POC Glucose (mg/dL) 246 H (70-110) mg/dL Calcium (8.4-10.2) mg/dL Microbiology - Last 24 Hours (Table) 01/23/24 13:55 Blood Culture - Preliminary Blood 01/24/24 00:18 Gram Stain - Preliminary Sputum 01/22/24 22:17 Blood Culture - Preliminary Blood Assessment and Plan (1) Cholecystitis Narrative/Plan: Patient doing better today. Continue weaning. May initiate diet once cleared after extubation. Continue antibiotics. Keep drain in place. Current Visit: Yes Status: Acute Code(s): K81.9 - CHOLECYSTITIS, UNSPECIFIED SNOMED Code(s): 01041995
--- NOTE | 2024-01-25 12:46 | P.PN ---
Subjective Progress Note Date: 01/25/24 HISTORY OF PRESENTING ILLNESS Patient has a past medical history of TAVR valve and is previously known to Dr. Montgomery. On 01/23/2024 patient underwent laparoscopic cholecystectomy which was converted to open surgery with appendectomy. 78-year-old with past medical history of TAVR on November 30, previous CABG, type 2 diabetes, dyslipidemia, hypertension, PAD, BPH, dementia and recent hospitalization in December for acute cholecystitis s/p CT-guided percutaneous cholecystectomy tube placement on 12/28/2023 Postoperatively patient was left on mechanical ventilator support and was transferred to ICU. Postoperative labs showed sodium 135, potassium 3.8, chloride 104, bicarb 21, B UN 21, creatinine 1.6, lactate 0.9. BP 108/58, heart rate 72 ECG shows sinus rhythm with first-degree AV block and left bundle branch 01/25/2024 Patient is currently on Precedex drip getting a trial of feeding today PHYSICAL EXAMINATION Lungs: On vent support, diminished breath sounds bilateral lung field Heart: Regular rate and rhythm, S1-S2, systolic murmur out of. Abdomen: Surgical dressing in place, no guarding. ASSESSMENT S/p laparotomy with cholecystectomy and appendectomy 01/23/2024 Ventilator dependent respiratory failure S/p TAVR November 30, 2023 First-degree AV block with left bundle branch block, no pauses History of CABG Type 2 diabetes Dyslipidemia Obesity Dementia PLAN Continue aspirin, atorvastatin, hold AV nehemiah blocking agent Supportive care and postop care as per ICU team and surgical Objective - Vital Signs Vital signs: Vital Signs Temp 98.0 F 01/25/24 12:00 Pulse 66 01/25/24 12:00 Resp 27 H 01/25/24 12:00 BP 115/52 01/25/24 12:00 Pulse Ox 98 01/25/24 12:00 FiO2 50 01/25/24 12:19 Intake & Output 01/24/24 01/25/24 01/25/24 18:59 06:59 18:59 Intake Total 6681.196 9086.720 590 Output Total 440 430 293 Balance 2436.385 9998.720 297 Weight 93.1 kg 93.9 kg Intake: IV 375 Dextrose 5% in Water 1, 375 000 ml @ 75 mls/hr IV . [id number] MELINA with Sodium Bicarb (1 Meq/ml) 150 ml Rx#:[id number] Intake, IV Titration 1407.182 8768.720 175 Amount Dexmedetomidine/0.9% NaCl 129.720 (Pmx) 400 mcg In Empty Bag 1 bag @ 0.2 MCG/KG/HR 4.655 mls/hr IV .[id number] MELINA Rx#:[id number] Dextrose 5% in Water 1, 75 000 ml @ 75 mls/hr IV . [id number] MELINA with Sodium Bicarb (1 Meq/ml) 150 ml Rx#:[id number] IV Fluid Continuation 1, 250 000 ml @ 0 mls/hr IV .STK -MED ONE Rx#:[id number] Magnesium Sulfate-D5w Pmx 100 1 gm In Dextrose/Water 1 100ml.bag @ 100 mls/hr IVPB ONCE ONE Rx#: [id number] Sodium Chloride 0.9% 1, 1100 1375 0 000 ml @ 125 mls/hr IV . Q8H MELINA Rx#:[id number] propofoL 1,000 mg In 121.436 Empty Bag 1 bag @ 15 MCG/ KG/MIN 9.389 mls/hr IV . [id number] MELINA Rx#:[id number] Tube Feeding 170 40 Other 90 Output: Drainage 20 5 3 Right Lower Abdomen 20 5 3 Urine 420 425 290 Other: Voiding Method Indwelling Catheter Indwelling Catheter Indwelling Catheter - Labs CBC & Chem 7: 01/25/24 04:26 01/25/24 04:26 Labs: Abnormal Lab Results - Last 24 Hours (Table) 01/24/24 01/24/24 01/25/24 Range/Units 18:09 23:58 04:26 WBC 16.2 H (3.8-10.6) k/uL RBC 3.04 L (4.30-5.90) m/uL Hgb 8.5 L D (13.0-17.5) gm/dL Hct 25.8 L (39.0-53.0) % RDW 16.6 H (11.5-15.5) % Plt Count 144 L (150-450) k/uL ABG pCO2 (35-45) mmHg ABG HCO3 (21-25) mmol/L ABG O2 Saturation (94-97) % Sodium (137-145) mmol/L Chloride (98-107) mmol/L Carbon Dioxide (22-30) mmol/L BUN (9-20) mg/dL Creatinine (0.66-1.25) mg/dL Glucose (74-99) mg/dL POC Glucose (mg/dL) 131 H 159 H (70-110) mg/dL Calcium (8.4-10.2) mg/dL 01/25/24 01/25/24 01/25/24 Range/Units 04:26 06:03 06:20 WBC (3.8-10.6) k/uL RBC (4.30-5.90) m/uL Hgb (13.0-17.5) gm/dL Hct (39.0-53.0) % RDW (11.5-15.5) % Plt Count (150-450) k/uL ABG pCO2 32 L (35-45) mmHg ABG HCO3 19 L (21-25) mmol/L ABG O2 Saturation 97.9 H (94-97) % Sodium 136 L (137-145) mmol/L Chloride 118 H (98-107) mmol/L Carbon Dioxide 12 L (22-30) mmol/L BUN 25 H (9-20) mg/dL Creatinine 1.27 H (0.66-1.25) mg/dL Glucose 109 H (74-99) mg/dL POC Glucose (mg/dL) 186 H (70-110) mg/dL Calcium 5.5 L* (8.4-10.2) mg/dL 01/25/24 01/25/24 Range/Units 11:05 11:58 WBC (3.8-10.6) k/uL RBC (4.30-5.90) m/uL Hgb (13.0-17.5) gm/dL Hct (39.0-53.0) % RDW (11.5-15.5) % Plt Count (150-450) k/uL ABG pCO2 (35-45) mmHg ABG HCO3 20 L (21-25) mmol/L ABG O2 Saturation 97.6 H (94-97) % Sodium (137-145) mmol/L Chloride (98-107) mmol/L Carbon Dioxide (22-30) mmol/L BUN (9-20) mg/dL Creatinine (0.66-1.25) mg/dL Glucose (74-99) mg/dL POC Glucose (mg/dL) 246 H (70-110) mg/dL Calcium (8.4-10.2) mg/dL Microbiology - Last 24 Hours (Table) 01/23/24 13:55 Blood Culture - Preliminary Blood 01/24/24 00:18 Gram Stain - Preliminary Sputum 01/22/24 22:17 Blood Culture - Preliminary Blood
[2024-01-25] MEDS: ACETAMINOPHEN IV (For NPO) 1,000 MG in EMPTY BAG 1 BAG IVPB SCH (12:52)
--- NOTE | 2024-01-25 13:19 | P.PN ---
Subjective Progress Note Date: 01/25/24 Hospital course 78 year old M with PMH of COPD, DM, HTN, GERD, BPH, CAD with CABG, Dementia, Depression and anxiety, diastolic CHF, h/o TAVR presented to the ED for RLQ abdominal pain. Recently hospitalized from 12/23-01/02 for cholecystitis, NSTEMI and SAMANTHA. Found to be high risk for surgery, underwent cholecystostomy, discharged on PO antibiotics. He presents back to the hospital for RLQ pain that started on Tuesday. In the ED he underwent extensive evaluation. BP 127/75 HR 87 T 98.7F RR 18 94% on RA. CBC and CMP significant for WBC 18.3, Hg 12.8, bicarb 19, BUN 22, Cr 1.32, glu 133, alk phos 135, alb 3.4. Lactic acid 3.1. CT AP showed foci of gas in the upper abdomen, retraction of the percutaneous cholecystostomy tube, colitis of the transverse colon to the rectum and dilated appedix concerning for appendicitis. Patient admitted to the medicine service. Patient had a appendectomy and cholecystectomy done by general surgery. After surgery patient remained intub ated and was transferred to the ICU. Patient seen this morning. He remains intubated and sedated. He is not on any pressors. Physical exam General examination -patient intubated and sedated Heart - + S1S2 no murmurs Lungs -diminished breath sounds bilaterally Abdomen surgical incisions are intact and dry. JUNE drain with serosanguineous fluid Extremities - No edema ANESTHESIOLOGY CRNA -unable to assess as patient intubated and sedated Psych -unable to assess as patient is intubated and sedated Assessment and plan Sepsis on admission Likely source is appendicitis and bile leak from recent cholecystectomy Status post cholecystectomy and appendectomy done on this admission Resume IV Zosyn Patient's WBC is trending down Ventilatory dependent respiratory failure after surgery [employer] to manage vent Plan is for possible extubation today Acute kidney injury IV fluids Monitor BMP Renal function is improving today and is 1.27 Acute blood loss anemia likely from surgery Trend hemoglobin transfuse for hemoglobin less than 7 Coronary disease Chronic diastolic heart failure Recent TAVR Cardiology on board Stable Resume home cardiac meds Chronic conditions COPD Diabetes mellitus Hypertension GERD BPH Dementia Depression anxiety -Stable DVT prophylaxis: Subcu heparin Full code Objective - Vital Signs Vital signs: Vital Signs Temp 98.0 F 01/25/24 12:00 Pulse 68 01/25/24 13:00 Resp 26 H 01/25/24 13:00 BP 132/52 01/25/24 13:00 Pulse Ox 98 01/25/24 12:00 FiO2 40 01/25/24 13:00 Intake & Output 01/24/24 01/25/24 01/25/24 18:59 06:59 18:59 Intake Total 4728.122 5935.720 739.79 Output Total 440 430 413 Balance 1741.813 6957.720 326.79 Weight 93.1 kg 93.9 kg Intake: IV 450 Dextrose 5% in Water 1, 450 000 ml @ 75 mls/hr IV . [id number] MELINA with Sodium Bicarb (1 Meq/ml) 150 ml Rx#:[id number] Intake, IV Titration 2542.837 5209.720 249.79 Amount Dexmedetomidine/0.9% NaCl 129.720 74.79 (Pmx) 400 mcg In Empty Bag 1 bag @ 0.2 MCG/KG/HR 4.655 mls/hr IV .[id number] MELINA Rx#:[id number] Dextrose 5% in Water 1, 75 000 ml @ 75 mls/hr IV . [id number] MELINA with Sodium Bicarb (1 Meq/ml) 150 ml Rx#:[id number] IV Fluid Continuation 1, 250 000 ml @ 0 mls/hr IV .STK -MED ONE Rx#:[id number] Magnesium Sulfate-D5w Pmx 100 1 gm In Dextrose/Water 1 100ml.bag @ 100 mls/hr IVPB ONCE ONE Rx#: [id number] Sodium Chloride 0.9% 1, 1100 1375 0 000 ml @ 125 mls/hr IV . Q8H MELINA Rx#:[id number] propofoL 1,000 mg In 121.436 Empty Bag 1 bag @ 15 MCG/ KG/MIN 9.389 mls/hr IV . [id number] MELINA Rx#:[id number] Tube Feeding 170 40 Other 90 Output: Drainage 20 5 68 Right Lower Abdomen 20 5 68 Urine 420 425 345 Other: Voiding Method Indwelling Catheter Indwelling Catheter Indwelling Catheter - Labs CBC & Chem 7: 01/25/24 04:26 01/25/24 04:26 Labs: Abnormal Lab Results - Last 24 Hours (Table) 01/24/24 01/24/2424 Range/Units 18:09 23:58 04:26 WBC 16.2 H (3.8-10.6) k/uL RBC 3.04 L (4.30-5.90) m/uL Hgb 8.5 L D (13.0-17.5) gm/dL Hct 25.8 L (39.0-53.0) % RDW 16.6 H (11.5-15.5) % Plt Count 144 L (150-450) k/uL ABG pCO2 (35-45) mmHg ABG HCO3 (21-25) mmol/L ABG O2 Saturation (94-97) % Sodium (137-145) mmol/L Chloride (98-107) mmol/L Carbon Dioxide (22-30) mmol/L BUN (9-20) mg/dL Creatinine (0.66-1.25) mg/dL Glucose (74-99) mg/dL POC Glucose (mg/dL) 131 H 159 H (70-110) mg/dL Calcium (8.4-10.2) mg/dL 01/25/24 01/25/24 01/25/24 Range/Units 04:26 06:03 06:20 WBC (3.8-10.6) k/uL RBC (4.30-5.90) m/uL Hgb (13.0-17.5) gm/dL Hct (39.0-53.0) % RDW (11.5-15.5) % Plt Count (150-450) k/uL ABG pCO2 32 L (35-45) mmHg ABG HCO3 19 L (21-25) mmol/L ABG O2 Saturation 97.9 H (94-97) % Sodium 136 L (137-145) mmol/L Chloride 118 H (98-107) mmol/L Carbon Dioxide 12 L (22-30) mmol/L BUN 25 H (9-20) mg/dL Creatinine 1.27 H (0.66-1.25) mg/dL Glucose 109 H (74-99) mg/dL POC Glucose (mg/dL) 186 H (70-110) mg/dL Calcium 5.5 L* (8.4-10.2) mg/dL 01/25/24 01/25/24 Range/Units 11:05 11:58 WBC (3.8-10.6) k/uL RBC (4.30-5.90) m/uL Hgb (13.0-17.5) gm/dL Hct (39.0-53.0) % RDW (11.5-15.5) % Plt Count (150-450) k/uL ABG pCO2 (35-45) mmHg ABG HCO3 20 L (21-25) mmol/L ABG O2 Saturation 97.6 H (94-97) % Sodium (137-145) mmol/L Chloride (98-107) mmol/L Carbon Dioxide (22-30) mmol/L BUN (9-20) mg/dL Creatinine (0.66-1.25) mg/dL Glucose (74-99) mg/dL POC Glucose (mg/dL) 246 H (70-110) mg/dL Calcium (8.4-10.2) mg/dL Microbiology - Last 24 Hours (Table) 01/22/24 22:17 Blood Culture - Preliminary Blood 01/23/24 13:55 Blood Culture - Preliminary Blood 01/24/24 00:18 Gram Stain - Preliminary Sputum
--- NOTE | 2024-01-25 14:00 | P.PN ---
Subjective Progress Note Date: 01/25/24 Principal diagnosis: Chronic cholecystitis, status post cholecystectomy and appendectomy 01/23/2024 I am seeing this patient in consultation today 01/24/2024 in the intensive care unit as he is status postoperative day #1 following a laparoscopic cholecystectomy converted to open surgery with open appendectomy. Patient is a 78-year-old white male with past medical history significant for recent transcatheter aortic valve replacement on November 30, previous CABG, diabetes mellitus, hyperlipidemia, hypertension, peripheral vascular disease, BPH, advanced dementia, and recent inpatient hospitalization 12/23/2023 through 01/02/2024 for acute cholecystitis status post CT-guided percutaneous cholecystostomy tube placement on 12/28/2023. Patient was initially discharged home with home health care, but [place] [facility] [place] Patient sent into the emergency room on 01/22/2024 with intractable nausea and vomiting and abdominal pain. Patient is currently intubated to mechanical ventilator, and I am unable to provide elicit any information for this reason. An abdominal/pelvis CT taken on admission showed few scattered foci of gas in the upper abdomen which could be secondary to partial retraction of the percutaneous cholecystostomy tube with sideport open to the peritoneal cavity. There was cholecystitis involving the transverse colon to the rectum. Dilated appendix which was new from previous imaging on 12/25/2023. And a small left pleural effusion. Patient was taken to the operating room on 01/23/2024 was found to have cholecystitis with focal gangrenous changes and bile leak. Patient underwent a laparoscopic cholecystectomy which was converted to open procedure with open appendectomy. Postoperatively, the patient was left on the mechanical ventilator and transferred to the intensive care unit. Patient is currently in room 258, he is intubated, and on the mechanical ventilator. He is sedated on propofol which is infusing at 20 mcg/kg/min. He is synchronous with the mechanical ventilator. He wakes with tactile stimulus, but does not follow any commands. Postoperative chest x-ray shows endotracheal tube above the karly, and orogastric tube coursing below the diaphragm, and a small left pleural effusion. No other acute cardiopulmonary pathology noted. Postoperative ABG as a PaO2 greater than 400, pCO2 of 36, and pH of 7.35. This was done on ventilator settings including assist-control, respiratory rate 18, tidal volume 450, FiO2 100%, and PEEP of 5. FiO2 was sent weaned to 40%. I am told the patient had an EBL of approximately 350 mL and was given 1 L normal saline bolus intraoperatively. Blood pressure remains normotensive. Not requiring any vasopressors. Normal saline is infusing at 75 mL/h. Postoperative CBC is a WBC count of 17, hemoglobin stable at 11.8, hematocrit 37, platelets 263. Postoperative BMP includes a sodium 135, potassium 3.8, chloride 104, serum bicarb 21, BUN 21, creatinine 1.36, glucose 200. Lactic acid level 0.9. Patient does have a indwelling urinary catheter draining 40 to 50 mL of urine per hour. Urinalysis has small leukocyte Estrace and pyuria. Patient is empirically covered on Zosyn for his abdomen. He is afebrile. Prognosis is guarded. Patient is being monitored in the intensive care unit. Patient was reevaluated today on 01/25/2024, patient remains in the ICU, he is on assist-control rate of 18 tidal volume 450 FiO2 40% and PEEP of 5. ABG showed a pO2 of 100 pCO2 32 pH of 7.37. Overnight the patient was kept on Precedex, and he is on 0.4 mcg/kg/h. Patient is on IV fluid at 75 cc/h vital HP at 20 cc/h. Urine output is excellent about 30 to 50 cc/h. Patient is not agitated, he is not restless, seems to be calm, hence I am planning to place the patient on pressure support of 10 and CPAP, and if tolerated may consider weaning and ex tubating the patient. Chest x-ray showed mild pulmonary vascular congestion, and retrocardiac atelectasis, patient will be given a dose of Lasix, and his IV fluid was cut down to KVO WBC count today is 16.2 hemoglobin is 8.5 basic metabolic profile is normalHowever bicarb is 12 BUN is 25 creatinine 1.27 Objective - Vital Signs Vital signs: Vital Signs Temp 98.0 F 01/25/24 12:00 Pulse 68 01/25/24 13:00 Resp 26 H 01/25/24 13:00 BP 132/52 01/25/24 13:00 Pulse Ox 98 01/25/24 12:00 FiO2 40 01/25/24 13:00 Intake & Output 01/24/24 01/25/24 01/25/24 18:59 06:59 18:59 Intake Total 0560.371 3899.720 740.023 Output Total 440 430 413 Balance 6416.229 9470.720 327.023 Weight 93.1 kg 93.9 kg Intake: IV 450 Dextrose 5% in Water 1, 450 000 ml @ 75 mls/hr IV . [id number] MELINA with Sodium Bicarb (1 Meq/ml) 150 ml Rx#:[id number] Intake, IV Titration 2881.555 0613.720 250.023 Amount Dexmedetomidine/0.9% NaCl 129.720 75.023 (Pmx) 400 mcg In Empty Bag 1 bag @ 0.2 MCG/KG/HR 4.655 mls/hr IV .[id number] MELINA Rx#:[id number] Dextrose 5% in Water 1, 75 000 ml @ 75 mls/hr IV . [id number] MELINA with Sodium Bicarb (1 Meq/ml) 150 ml Rx#:[id number] IV Fluid Continuation 1, 250 000 ml @ 0 mls/hr IV .STK -MED ONE Rx#:[id number] Magnesium Sulfate-D5w Pmx 100 1 gm In Dextrose/Water 1 100ml.bag @ 100 mls/hr IVPB ONCE ONE Rx#: [id number] Sodium Chloride 0.9% 1, 1100 1375 0 000 ml @ 125 mls/hr IV . Q8H MELINA Rx#:[id number] propofoL 1,000 mg In 121.436 Empty Bag 1 bag @ 15 MCG/ KG/MIN 9.389 mls/hr IV . [id number] MELINA Rx#:[id number] Tube Feeding 170 40 Other 90 Output: Drainage 20 5 68 Right Lower Abdomen 20 5 68 Urine 420 425 345 Other: Voiding Method Indwelling Catheter Indwelling Catheter Indwelling Catheter - Exam GENERAL EXAM: 78-year-old white male obese, awake, arousable, But confused HEAD: Normocephalic and atraumatic EYES: Normal reaction of pupils, equal size. NOSE: Clear with pink turbinates. THROAT: No erythema or exudates. Endotracheal tube is intact NECK: No masses, no JVD. CHEST: No chest wall deformity. LUNGS: Fine crackles at the bases. CVS: S1 and S2 normal with no audible murmur, regular rhythm. No extra heart sounds ABDOMEN: Postsurgical abdomen with lateral incisional dressing intact and dry. Incision appears approximated. There are also laparoscopic sites that are approximated. There is a JUNE drain draining a small amount of serosanguineous fluid and bulb is compressed. Abdomen is soft. Bowel sounds are hypoactive. SKIN: No rashes CENTRAL NERVOUS SYSTEM: Could not assess. Patient is arousable, calm, but confused. EXTREMITIES: There is no peripheral edema, clubbing, or cyanosis. Peripheral pulses are intact. - Labs CBC & Chem 7: 01/25/24 04:26 01/25/24 04:26 Labs: Abnormal Lab Results - Last 24 Hours (Table) 01/24/24 01/24/24 01/25/24 Range/Units 18:09 23:58 04:26 WBC 16.2 H (3.8-10.6) k/uL RBC 3.04 L (4.30-5.90) m/uL Hgb 8.5 L D (13.0-17.5) gm/dL Hct 25.8 L (39.0-53.0) % RDW 16.6 H (11.5-15.5) % Plt Count 144 L (150-450) k/uL ABG pCO2 (35-45) mmHg ABG HCO3 (21-25) mmol/L ABG O2 Saturation (94-97) % Sodium (137-145) mmol/L Chloride (98-107) mmol/L Carbon Dioxide (22-30) mmol/L BUN (9-20) mg/dL Creatinine (0.66-1.25) mg/dL Glucose (74-99) mg/dL POC Glucose (mg/dL) 131 H 159 H (70-110) mg/dL Calcium (8.4-10.2) mg/dL 01/25/24 01/25/24 01/25/24 Range/Units 04:26 06:03 06:20 WBC (3.8-10.6) k/uL RBC (4.30-5.90) m/uL Hgb (13.0-17.5) gm/dL Hct (39.0-53.0) % RDW (11.5-15.5) % Plt Count (150-450) k/uL ABG pCO2 32 L (35-45) mmHg ABG HCO3 19 L (21-25) mmol/L ABG O2 Saturation 97.9 H (94-97) % Sodium 136 L (137-145) mmol/L Chloride 118 H (98-107) mmol/L Carbon Dioxide 12 L (22-30) mmol/L BUN 25 H (9-20) mg/dL Creatinine 1.27 H (0.66-1.25) mg/dL Glucose 109 H (74-99) mg/dL POC Glucose (mg/dL) 186 H (70-110) mg/dL Calcium 5.5 L* (8.4-10.2) mg/dL 01/25/24 01/25/24 Range/Units 11:05 11:58 WBC (3.8-10.6) k/uL RBC (4.30-5.90) m/uL Hgb (13.0-17.5) gm/dL Hct (39.0-53.0) % RDW (11.5-15.5) % Plt Count (150-450) k/uL ABG pCO2 (35-45) mmHg ABG HCO3 20 L (21-25) mmol/L ABG O2 Saturation 97.6 H (94-97) % Sodium (137-145) mmol/L Chloride (98-107) mmol/L Carbon Dioxide (22-30) mmol/L BUN (9-20) mg/dL Creatinine (0.66-1.25) mg/dL Glucose (74-99) mg/dL POC Glucose (mg/dL) 246 H (70-110) mg/dL Calcium (8.4-10.2) mg/dL Microbiology - Last 24 Hours (Table) 01/22/24 22:17 Blood Culture - Preliminary Blood 01/23/24 13:55 Blood Culture - Preliminary Blood 01/24/24 00:18 Gram Stain - Preliminary Sputum Assessment and Plan Assessment: Impression: Chronic cholecystitis status post open cholecystectomy and appendectomy 01/23/2024. Advanced dementia Acute blood loss anemia expected as the outcome of surgery Chronic kidney disease stage III History of aortic stenosis and previous TAVR. History of coronary arteriosclerosis and previous CABG Chronic atrial fibrillation Dyslipidemia Type 2 diabetes History of BPH Benign essential hypertension Recommendation: His ventilator settings were noted and reviewed Labs were reviewed Chest x-ray was also reviewed My plan is to give the patient a trial of weaning with pressure support and CPAP, If this is tolerated, may proceed to extubating the patient. In the meantime continue supportive care measures, Gently diurese the patient, Cut down IV fluid to KVO, Will continue to follow-up with Continue GI and DVT prophylaxis. Critical care time is over 30 Time with Patient: Greater than 30
[2024-01-25] MEDS: FUROSEMIDE 10 MG/ML 2 ML VIAL IV ONE (14:15)
[2024-01-25] MEDS: traMADol 50 MG TAB PO PRN (15:09)
[2024-01-25 17:44] LABS: Glucose,Whole Blood 262 mg/dL (70-110)
[2024-01-25] MEDS: HYDROcodone/APAP 7.5-325MG 1 EACH TAB PO PRN (19:39)
[2024-01-26 00:10] LABS: Glucose,Whole Blood 234 mg/dL (70-110)
[2024-01-26 05:11] LABS: Anisocytosis Slight; Basophils % (A) 0 %; Eosinophils # (A) 0.1 k/uL (0-0.7); Eosinophils % (A) 0 %; HCT 27.9 % (39.0-53.0); Hypochromasia Moderate; Lymphocytes # (A) 0.6 k/uL (1.0-4.8); Lymphocytes % (A) 4 %; MCH 27.6 pg (25.0-35.0); MCHC 32.1 g/dL (31.0-37.0); Mean Platelet Volume 7.4; Monocytes # (A) 0.8 k/uL (0-1.0); Monocytes % (A) 5 %; Neutrophils # (A) 14.4 k/uL (1.3-7.7); Neutrophils % (A) 90 %; Platelet Count 182 k/uL (150-450); RBC 3.24 m/uL (4.30-5.90); RDW 16.8 % (11.5-15.5)
[2024-01-26 05:34] LABS: African American GFR (CKD) 65 (>60 ml/min/1.73 sqM); Anion Gap 1 mmol/L; Blood Urea Nitrogen 27 mg/dL (9-20); Carbon Dioxide 35 mmol/L (22-30); Chloride 98 mmol/L (98-107); Glucose 433 mg/dL (74-99); Non-African American GFR(CKD) 56 (>60 ml/min/1.73 sqM); Potassium 3.6 mmol/L (3.5-5.1); Sodium 134 mmol/L (137-145)
[2024-01-26 05:39] LABS: Calcium 6.2 mg/dL (8.4-10.2)
[2024-01-26] MEDS: POTASSIUM BICARBONATE/CIT AC 20 MEQ TABLET.EFF PO ONE (06:19)
[2024-01-26 06:21] LABS: Glucose,Whole Blood 212 mg/dL (70-110)
[2024-01-26] MEDS: CALCIUM GLUCONATE IN NACL 2 GM in SALINE 1 100ML.BAG IVPB ONE (06:41)
[2024-01-26] MEDS: SODIUM CHLORIDE 0.9% 1,000 ML IV SCH (09:53)
[2024-01-26] MEDS: PANTOPRAZOLE 40 MG/10 ML VIAL IVP SCH (10:03)
--- NOTE | 2024-01-26 10:31 | P.PN ---
Subjective Progress Note Date: 01/26/24 Pt c/o abd pain today as well as having ongoing agitation issues. Not taking PO meds per nursing. Gen: In moderate distress from pain, non-toxic HEENT: normocephalic, atraumatic, hearing acuity is intant, mucous membranes moist CVS: perfusing all extremities well, no pitting edema, Respiratory: symmetric chest expansion, no accessory muscle use, GI: soft, NTTP, ND, : no suprapubic tenderness, no CVA tenderness MSK/Derm: no rashes, cyanosis Neuro: CN II-XII intact, no motor weakness, Hospital Course: 78 year old M with PMH of COPD, DM, HTN, GERD, BPH, CAD with CABG, Dementia, Depression and anxiety, diastolic CHF, h/o TAVR presented to the ED for RLQ abdominal pain. Recently hospitalized from 12/23-01/02 for cholecystitis, NSTEMI and SAMANTHA. Found to be high risk for surgery, underwent cholecystostomy, discharged on PO antibiotics. He presents back to the hospital for RLQ pain that started on Tuesday. In the ED he underwent extensive evaluation. BP 127/75 HR 87 T 98.7F RR 18 94% on RA. CBC and CMP significant for WBC 18.3, Hg 12.8, bicarb 19, BUN 22, Cr 1.32, glu 133, alk phos 135, alb 3.4. Lactic acid 3.1. CT AP showed foci of gas in the upper abdomen, retraction of the percutaneous cholecystostomy tube, colitis of the transverse colon to the rectum and dilated appedix concerning for appendicitis. Patient admitted to the medicine service. Patient had a appendectomy and ch olecystectomy done by general surgery. After surgery patient remained intubated and was transferred to the ICU. He has since been extubated, but remained on precedex for agitation. Assessment and plan Sepsis on admission Appendicitis Likely source is appendicitis and bile leak from recent cholecystectomy Status post cholecystectomy and appendectomy done on this admission Resume IV Zosyn Patient's WBC is trending down Pain control with IV Tylenol PRN, IV dilaudid PRN Ventilatory dependent respiratory failure after surgery Tub Wash Operator to manage vent On nasal cannula Acute kidney injury IV fluids Monitor BMP Renal function is improving today and is 1.25 Acute blood loss anemia likely from surgery Trend hemoglobin transfuse for hemoglobin less than 7 Coronary disease Chronic diastolic heart failure Recent TAVR Cardiology on board Stable Resume home cardiac meds Chronic conditions COPD Diabetes mellitus Hypertension GERD BPH Dementia Depression anxiety -Stable DVT prophylaxis: Subcu heparin Full code Objective - Vital Signs Vital signs: Vital Signs Temp 97.5 F L 01/26/24 08:00 Pulse 63 01/26/24 10:00 Resp 21 01/26/24 10:00 BP 123/41 01/26/24 10:00 Pulse Ox 98 01/26/24 10:00 FiO2 50 01/25/24 14:50 Intake & Output 01/25/24 01/26/24 01/26/24 18:59 06:59 18:59 Intake Total 8060.283 9682.652 358.905 Output Total 970 503 270 Balance 147.545 682.652 88.905 Weight 94.7 kg Intake: IV 825 900 150 Dextrose 5% in Water 1, 825 900 75 000 ml @ 75 mls/hr IV . [id number] [facility] with Sodium Bicarb (1 Meq/ml) 150 ml Rx#:[id number] Sodium Chloride 0.9% 1, 75 000 ml @ 100 mls/hr IV . Q10H [facility] Rx#:[id number] Intake, IV Titration 252.545 285.652 208.905 Amount ACETAMINOPHEN IV (For NPO 100 ) 1,000 mg In Empty Bag 1 bag @ 400 mls/hr IVPB Q6HR [facility] Rx#:[id number] Calcium Gluconate in NaCl 100 2 gm In Saline 1 100ml. bag @ 100 mls/hr IVPB ONCE ONE Rx#:[id number] Dexmedetomidine/0.9% NaCl 77.545 85.652 33.905 (Pmx) 400 mcg In Empty Bag 1 bag @ 0.2 MCG/KG/HR 4.655 mls/hr IV .[id number] [facility] Rx#:[id number] Dextrose 5% in Water 1, 75 000 ml @ 75 mls/hr IV . [id number] [facility]INA with Sodium Bicarb (1 Meq/ml) 150 ml Rx#:[id number] Magnesium Sulfate-D5w Pmx 100 1 gm In Dextrose/Water 1 100ml.bag @ 100 mls/hr IVPB ONCE ONE Rx#: [id number] Piperacillin-Tazobactam 3 100 75 .375 gm In Sodium Chloride 0.9% 100 ml @ 25 mls/hr IVPB Q8HR [facility] Rx# :[id number] Sodium Chloride 0.9% 1, 0 000 ml @ 125 mls/hr IV . Q8H [facility] Rx#:[id number] Tube Feeding 40 Output: Drainage 133 15 Right Lower Abdomen 133 15 Urine 837 488 270 Other: Voiding Method Indwelling Catheter Indwelling Catheter - Labs CBC & Chem 7: 01/26/24 04:35 01/26/24 04:35 Labs: Abnormal Lab Results - Last 24 Hours (Table) 01/25/24 01/25/24 01/25/24 Range/Units 11:05 11:58 17:42 WBC (3.8-10.6) k/uL RBC (4.30-5.90) m/uL Hgb (13.0-17.5) gm/dL Hct (39.0-53.0) % RDW (11.5-15.5) % Neutrophils # (1.3-7.7) k/uL Lymphocytes # (1.0-4.8) k/uL ABG HCO3 20 L (21-25) mmol/L ABG O2 Saturation 97.6 H (94-97) % Sodium (137-145) mmol/L Carbon Dioxide (22-30) mmol/L BUN (9-20) mg/dL Glucose (74-99) mg/dL POC Glucose (mg/dL) 246 H 262 H (70-110) mg/dL Calcium (8.4-10.2) mg/dL 01/26/24 01/26/24 01/26/24 Range/Units 00:09 04:35 04:35 WBC 16.0 H (3.8-10.6) k/uL RBC 3.24 L (4.30-5.90) m/uL Hgb 9.0 L (13.0-17.5) gm/dL Hct 27.9 L (39.0-53.0) % RDW 16.8 H (11.5-15.5) % Neutrophils # 14.4 H (1.3-7.7) k/uL Lymphocytes # 0.6 L (1.0-4.8) k/uL ABG HCO3 (21-25) mmol/L ABG O2 Saturation (94-97) % Sodium 134 L (137-145) mmol/L Carbon Dioxide 35 H (22-30) mmol/L BUN 27 H (9-20) mg/dL Glucose 433 H (74-99) mg/dL POC Glucose (mg/dL) 234 H (70-110) mg/dL Calcium 6.2 L* (8.4-10.2) mg/dL 01/26/24 Range/Units 06:20 WBC (3.8-10.6) k/uL RBC (4.30-5.90) m/uL Hgb (13.0-17.5) gm/dL Hct (39.0-53.0) % RDW (11.5-15.5) % Neutrophils # (1.3-7.7) k/uL Lymphocytes # (1.0-4.8) k/uL ABG HCO3 (21-25) mmol/L ABG O2 Saturation (94-97) % Sodium (137-145) mmol/L Carbon Dioxide (22-30) mmol/L BUN (9-20) mg/dL Glucose (74-99) mg/dL POC Glucose (mg/dL) 212 H (70-110) mg/dL Calcium (8.4-10.2) mg/dL Microbiology - Last 24 Hours (Table) 01/23/24 13:55 Blood Culture - Preliminary Blood 01/22/24 22:17 Blood Culture - Preliminary Blood
--- NOTE | 2024-01-26 11:33 | XR ---
EXAMINATION TYPE: XR chest 1V DATE OF EXAM: 01/26/2024 COMPARISON: 01/25/2024 HISTORY: 78-year-old male ICU follow-up, daily chest x-ray TECHNIQUE: Single frontal view of the chest is obtained. FINDINGS: Heart mildly enlarged. Median sternotomy wires. Endovascular prosthetic aortic valve repla cement. Post-CABG clips. Retrocardiac and left basilar opacity persists. IMPRESSION: Similar mild cardiomegaly and ongoing retrocardiac and left basilar opacity.
[2024-01-26 11:42] LABS: Glucose,Whole Blood 127 mg/dL (70-110)
[2024-01-26] MEDS: ACETAMINOPHEN IV (For NPO) 1,000 MG in EMPTY BAG 1 BAG IVPB SCH (12:03)
[2024-01-26] MEDS: POTASSIUM CHLORIDE 10 MEQ in WATER FOR INJECTION 1 100ML.BAG IVPB SCH (12:04)
[2024-01-26] MEDS: LORazepam 2 MG/ML INJ IV PRN (12:40)
--- NOTE | 2024-01-26 13:36 | P.PN ---
Subjective Progress Note Date: 01/26/24 Principal diagnosis: Chronic cholecystitis, status post cholecystectomy and appendectomy 01/23/2024 I am seeing this patient in consultation today 01/24/2024 in the intensive care unit as he is status postoperative day #1 following a laparoscopic cholecystectomy converted to open surgery with open appendectomy. Patient is a 78-year-old white male with past medical history significant for recent transcatheter aortic valve replacement on November 30, previous CABG, diabetes mellitus, hyperlipidemia, hypertension, peripheral vascular disease, BPH, advanced dementia, and recent inpatient hospitalization 12/23/2023 through 01/02/2024 for acute cholecystitis status post CT-guided percutaneous cholecystostomy tube placement on 12/28/2023. Patient was initially discharged home with home health care, but somehow ended up at [facility] on the [place] for rehab. Patient sent into the emergency room on 01/22/2024 with intractable nausea and vomiting and abdominal pain. Patient is currently intubated to mechanical ventilator, and I am unable to provide elicit any information for this reason. An abdominal/pelvis CT taken on admission showed few scattered foci of gas in the upper abdomen which could be secondary to partial retraction of the percutaneous cholecystostomy tube with sideport open to the peritoneal cavity. There was cholecystitis involving the transverse colon to the rectum. Dilated appendix which was new from previous imaging on 12/25/2023. And a small left pleural effusion. Patient was taken to the operating room on 01/23/2024 was found to have cholecystitis with focal gangrenous changes and bile leak. Patient underwent a laparoscopic cholecystectomy which was converted to open procedure with open appendectomy. Postoperatively, the patient was left on the mechanical ventilator and transferred to the intensive care unit. Patient is currently in room 258, he is intubated, and on the mechanical ventilator. He is sedated on propofol which is infusing at 20 mcg/kg/min. He is synchronous with the mechanical ventilator. He wakes with tactile stimulus, but does not follow any commands. Postoperative chest x-ray shows endotracheal tube above the karly, and orogastric tube coursing below the diaphragm, and a small left pleural effusion. No other acute cardiopulmonary pathology noted. Postoperative ABG as a PaO2 greater than 400, pCO2 of 36, and pH of 7.35. This was done on ventilator settings including assist-control, respiratory rate 18, tidal volume 450, FiO2 100%, and PEEP of 5. FiO2 was sent weaned to 40%. I am told the patient had an EBL of approximately 350 mL and was given 1 L normal saline bolus intraoperatively. Blood pressure remains normotensive. Not requiring any vasopressors. Normal saline is infusing at 75 mL/h. Postoperative CBC is a WBC count of 17, hemoglobin stable at 11.8, hematocrit 37, platelets 263. Postoperative BMP includes a sodium 135, potassium 3.8, chloride 104, serum bicarb 21, BUN 21, creatinine 1.36, glucose 200. Lactic acid level 0.9. Patient does have a indwelling urinary catheter draining 40 to 50 mL of urine per hour. Urinalysis has small leukocyte Estrace and pyuria. Patient is empirically covered on Zosyn for his abdomen. He is afebrile. Prognosis is guarded. Patient is being monitored in the intensive care unit. Patient was reevaluated today on 01/25/2024, patient remains in the ICU, he is on assist-control rate of 18 tidal volume 450 FiO2 40% and PEEP of 5. ABG showed a pO2 of 100 pCO2 32 pH of 7.37. Overnight the patient was kept on Precedex, and he is on 0.4 mcg/kg/h. Patient is on IV fluid at 75 cc/h vital HP at 20 cc/h. Urine output is excellent about 30 to 50 cc/h. Patient is not agitated, he is not restless, seems to be calm, hence I am planning to place the patient on pressure support of 10 and CPAP, and if tolerated may consider weaning and ex tubating the patient. Chest x-ray showed mild pulmonary vascular congestion, and retrocardiac atelectasis, patient will be given a dose of Lasix, and his IV fluid was cut down to KVO WBC count today is 16.2 hemoglobin is 8.5 basic metabolic profile is normalHowever bicarb is 12 BUN is 25 creatinine 1.27 Patient was reevaluated today on 01/26/2024, patient was extubated yesterday, he tolerated extubation well, patient is now on Precedex at 0.6, patient is also on Dilaudid and Zosyn as well as Ativan added today. Patient gets agitated, he does have underlying dementia, and keeps trying to get out of bed. Hence we will continue the Precedex today, will add Ativan 0.5 mg IV push every 2 hours as needed. Patient remains on 2 L nasal cannula with O2 sats of 98%. His x-ray showed cardiomegaly and left basilar atelectasis Objective - Vital Signs Vital signs: Vital Signs Temp 97.0 F L 01/26/24 12:00 Pulse 56 L 01/26/24 13:00 Resp 24 01/26/24 13:00 BP 123/52 01/26/24 13:00 Pulse Ox 98 01/26/24 13:00 FiO2 50 01/25/24 14:50 Intake & Output 01/25/24 01/26/24 01/26/24 18:59 06:59 18:59 Intake Total 2063.541 1429.652 1008.905 Output Total 970 503 418 Balance 147.545 682.652 590.905 Weight 94.7 kg Intake: IV 825 900 775 ACETAMINOPHEN IV (For NPO 100 ) 1,000 mg In Empty Bag 1 bag @ 400 mls/hr IVPB Q6HR [facility] Rx#:[id number] Dextrose 5% in Water 1, 825 900 75 000 ml @ 75 mls/hr IV . [id number] [facility]INA with Sodium Bicarb (1 Meq/ml) 150 ml Rx#:[id number] Potassium Chloride 10 meq 200 In Water For Injection 1 100ml.bag @ 100 mls/hr IVPB Q1H [facility] Rx#: [id number] Sodium Chloride 0.9% 1, 400 000 ml @ 100 mls/hr IV . Q10H [facility] Rx#:[id number] Intake, IV Titration 252.545 285.652 233.905 Amount ACETAMINOPHEN IV (For NPO 100 ) 1,000 mg In Empty Bag 1 bag @ 400 mls/hr IVPB Q6HR [facility] Rx#:[id number] Calcium Gluconate in NaCl 100 2 gm In Saline 1 100ml. bag @ 100 mls/hr IVPB ONCE ONE Rx#:[id number] Dexmedetomidine/0.9% NaCl 77.545 85.652 33.905 (Pmx) 400 mcg In Empty Bag 1 bag @ 0.2 MCG/KG/HR 4.655 mls/hr IV .[id number] [facility] Rx#:[id number] Dextrose 5% in Water 1, 75 000 ml @ 75 mls/hr IV . [id number] [facility]ELIAN with Sodium Bicarb (1 Meq/ml) 150 ml Rx#:[id number] Magnesium Sulfate-D5w Pmx 100 1 gm In Dextrose/Water 1 100ml.bag @ 100 mls/hr IVPB ONCE ONE Rx#: [id number] Piperacillin-Tazobactam 3 100 100 .375 gm In Sodium Chloride 0.9% 100 ml @ 25 mls/hr IVPB Q8HR [facility] Rx# :[id number] Sodium Chloride 0.9% 1, 0 000 ml @ 125 mls/hr IV . Q8H [facility] Rx#:[id number] Tube Feeding 40 Output: Drainage 133 15 10 Right Lower Abdomen 133 15 10 Urine 837 488 408 Other: Voiding Method Indwelling Catheter Indwelling Catheter - Exam GENERAL EXAM: 78-year-old white male obese, extremely agitated, in bed. HEAD: Normocephalic and atraumatic EYES: Normal reaction of pupils, equal size. NOSE: Clear with pink turbinates. THROAT: No erythema or exudates. NECK: No masses, no JVD. CHEST: No chest wall deformity. LUNGS: Fine crackles at the bases. CVS: S1 and S2 normal with no audible murmur, regular rhythm. No extra heart sounds ABDOMEN: Postsurgical abdomen with lateral incisional dressing intact and dry. There is a JUNE drain draining a small amount of serosanguineous fluid and bulb is compressed. Abdomen is soft. Bowel sounds are hypoactive. SKIN: No rashes CENTRAL NERVOUS SYSTEM: Agitated and restless. Patient is confused. EXTREMITIES: There is no peripheral edema, clubbing, or cyanosis. Peripheral pulses are intact. - Labs CBC & Chem 7: 01/26/24 04:35 01/26/24 04:35 Labs: Abnormal Lab Results - Last 24 Hours (Table) 01/25/24 01/26/24 01/26/24 Range/Units 17:42 00:09 04:35 WBC (3.8-10.6) k/uL RBC (4.30-5.90) m/uL Hgb (13.0-17.5) gm/dL Hct (39.0-53.0) % RDW (11.5-15.5) % Neutrophils # (1.3-7.7) k/uL Lymphocytes # (1.0-4.8) k/uL Sodium 134 L (137-145) mmol/L Carbon Dioxide 35 H (22-30) mmol/L BUN 27 H (9-20) mg/dL Glucose 433 H (74-99) mg/dL POC Glucose (mg/dL) 262 H 234 H (70-110) mg/dL Calcium 6.2 L* (8.4-10.2) mg/dL 01/26/24 01/26/24 01/26/24 Range/Units 04:35 06:20 11:40 WBC 16.0 H (3.8-10.6) k/uL RBC 3.24 L (4.30-5.90) m/uL Hgb 9.0 L (13.0-17.5) gm/dL Hct 27.9 L (39.0-53.0) % RDW 16.8 H (11.5-15.5) % Neutrophils # 14.4 H (1.3-7.7) k/uL Lymphocytes # 0.6 L (1.0-4.8) k/uL Sodium (137-145) mmol/L Carbon Dioxide (22-30) mmol/L BUN (9-20) mg/dL Glucose (74-99) mg/dL POC Glucose (mg/dL) 212 H 127 H (70-110) mg/dL Calcium (8.4-10.2) mg/dL Microbiology - Last 24 Hours (Table) 01/22/24 22:17 Blood Culture - Preliminary Blood 01/24/24 00:18 Gram Stain - Final Sputum Sputum Culture - Final 01/23/24 13:55 Blood Culture - Preliminary Blood Assessment and Plan Assessment: Impression: Chronic cholecystitis status post open cholecystectomy and appendectomy 01/23/2024. Patient was extubated on 01/25/2024 Advanced dementia Acute blood loss anemia expected as the outcome of surgery Chronic kidney disease stage III History of aortic stenosis and previous TAVR. History of coronary arteriosclerosis and previous CABG Chronic atrial fibrillation Dyslipidemia Type 2 diabetes History of BPH Benign essential hypertension Recommendation: Continue to monitor in the ICU Incentive spirometry if possible. Continue Precedex and Ativan. continue supportive care measures, Continue IV fluid Continue GI and DVT prophylaxis. Will continue to follow Time with Patient: Less than 30
--- NOTE | 2024-01-26 15:29 | P.PN ---
Subjective Progress Note Date: 01/26/24 CHIEF COMPLAINT: Chronic cholecystitis HISTORY OF PRESENT ILLNESS: Patient remains in the ICU. Patient extubated yesterday. He was very agitated and Precedex had to be restarted. Ativan also added. He does have a bedside sitter. He did have a bowel movement. No appetite. Patient is postop day #3 status post laparoscopic cholecystectomy turned open and open appendectomy. Afebrile. WBC is 16 Hgb 8.5-9.0 JUNE drain 25 mL serosanguineous output PHYSICAL EXAM: VITAL SIGNS: Reviewed. GENERAL: no acute distress. ABDOMEN: Soft. Mildly distended. Incisional dressing clean dry and intact. JUNE drain serosanguineous ASSESSMENT: 1. Chronic cholecystitis with focal gangrenous changes, bile leak 2. Dilated appendix PLAN: -Continue ICU management -Continue supportive care -Continue antibiotics -Continue IV fluids -DVT prophylaxis subcu heparin Physician Electric Meter Technician note has been reviewed by physician. Signing provider agrees with the documented findings, assessment, and plan of care. I have personally seen and examined the patient, reviewed the GANG TAILER /PAs history, exam and MDM and agree with the assessment and plan as written. Based on total visit time, I have performed more than 50% of the visit. As above: Patient remains confused. He is extubated. JUNE drain is serosanguineous. Labs noted. Diet as tolerated. Will follow. Objective - Vital Signs Vital signs: Vital Signs Temp 97.5 F L 01/26/24 08:00 Pulse 58 L 01/26/24 11:00 Resp 23 01/26/24 11:00 BP 109/44 01/26/24 11:00 Pulse Ox 97 01/26/24 11:00 FiO2 50 01/25/24 14:50 Intake & Output 01/25/24 01/26/24 01/26/24 18:59 06:59 18:59 Intake Total 1928.030 6301.652 508.905 Output Total 970 503 340 Balance 147.545 682.652 168.905 Weight 94.7 kg Intake: IV 825 900 275 Dextrose 5% in Water 1, 825 900 75 000 ml @ 75 mls/hr IV . [id number] [facility] with Sodium Bicarb (1 Meq/ml) 150 ml Rx#:[id number] Sodium Chloride 0.9% 1, 200 000 ml @ 100 mls/hr IV . Q10H [facility] Rx#:[id number] Intake, IV Titration 252.545 285.652 233.905 Amount ACETAMINOPHEN IV (For NPO 100 ) 1,000 mg In Empty Bag 1 bag @ 400 mls/hr IVPB Q6HR [facility] Rx#:[id number] Calcium Gluconate in NaCl 100 2 gm In Saline 1 100ml. bag @ 100 mls/hr IVPB ONCE ONE Rx#:[id number] Dexmedetomidine/0.9% NaCl 77.545 85.652 33.905 (Pmx) 400 mcg In Empty Bag 1 bag @ 0.2 MCG/KG/HR 4.655 mls/hr IV .[id number] [facility] Rx#:[id number] Dextrose 5% in Water 1, 75 000 ml @ 75 mls/hr IV . [id number] [facility]INA with Sodium Bicarb (1 Meq/ml) 150 ml Rx#:[id number] Magnesium Sulfate-D5w Pmx 100 1 gm In Dextrose/Water 1 100ml.bag @ 100 mls/hr IVPB ONCE ONE Rx#: [id number] Piperacillin-Tazobactam 3 100 100 .375 gm In Sodium Chloride 0.9% 100 ml @ 25 mls/hr IVPB Q8HR [facility] Rx# :[id number] Sodium Chloride 0.9% 1, 0 000 ml @ 125 mls/hr IV . Q8H [facility] Rx#:[id number] Tube Feeding 40 Output: Drainage 133 15 10 Right Lower Abdomen 133 15 10 Urine 837 488 330 Other: Voiding Method Indwelling Catheter Indwelling Catheter - Labs CBC & Chem 7: 01/26/24 04:35 01/26/24 04:35 Labs: Abnormal Lab Results - Last 24 Hours (Table) 01/25/24 01/25/24 01/26/24 Range/Units 11:58 17:42 00:09 WBC (3.8-10.6) k/uL RBC (4.30-5.90) m/uL Hgb (13.0-17.5) gm/dL Hct (39.0-53.0) % RDW (11.5-15.5) % Neutrophils # (1.3-7.7) k/uL Lymphocytes # (1.0-4.8) k/uL Sodium (137-145) mmol/L Carbon Dioxide (22-30) mmol/L BUN (9-20) mg/dL Glucose (74-99) mg/dL POC Glucose (mg/dL) 246 H 262 H 234 H (70-110) mg/dL Calcium (8.4-10.2) mg/dL 01/26/24 01/26/24 01/26/24 Range/Units 04:35 04:35 06:20 WBC 16.0 H (3.8-10.6) k/uL RBC 3.24 L (4.30-5.90) m/uL Hgb 9.0 L (13.0-17.5) gm/dL Hct 27.9 L (39.0-53.0) % RDW 16.8 H (11.5-15.5) % Neutrophils # 14.4 H (1.3-7.7) k/uL Lymphocytes # 0.6 L (1.0-4.8) k/uL Sodium 134 L (137-145) mmol/L Carbon Dioxide 35 H (22-30) mmol/L BUN 27 H (9-20) mg/dL Glucose 433 H (74-99) mg/dL POC Glucose (mg/dL) 212 H (70-110) mg/dL Calcium 6.2 L* (8.4-10.2) mg/dL 01/26/24 Range/Units 11:40 WBC (3.8-10.6) k/uL RBC (4.30-5.90) m/uL Hgb (13.0-17.5) gm/dL Hct (39.0-53.0) % RDW (11.5-15.5) % Neutrophils # (1.3-7.7) k/uL Lymphocytes # (1.0-4.8) k/uL Sodium (137-145) mmol/L Carbon Dioxide (22-30) mmol/L BUN (9-20) mg/dL Glucose (74-99) mg/dL POC Glucose (mg/dL) 127 H (70-110) mg/dL Calcium (8.4-10.2) mg/dL Microbiology - Last 24 Hours (Table) 01/23/24 13:55 Blood Culture - Preliminary Blood 01/22/24 22:17 Blood Culture - Preliminary Blood
[2024-01-26 17:01] LABS: Glucose,Whole Blood 147 mg/dL (70-110)
[2024-01-26] MEDS: SODIUM CHLORIDE 0.9% 500 ML 500 ML IV ONE (17:18)
[2024-01-26 18:29] LABS: Glucose,Whole Blood 137 mg/dL (70-110)
--- NOTE | 2024-01-26 19:31 | P.PN ---
Subjective Progress Note Date: 01/26/24 HISTORY OF PRESENTING ILLNESS Patient has a past medical history of TAVR valve and is previously known to Dr. Montgomery. On 01/23/2024 patient underwent laparoscopic cholecystectomy which was converted to open surgery with appendectomy. 78-year-old with past medical history of TAVR on November 30, previous CABG, type 2 diabetes, dyslipidemia, hypertension, PAD, BPH, dementia and recent hospitalization in December for acute cholecystitis s/p CT-guided percutaneous cholecystectomy tube placement on 12/28/2023 Postoperatively patient was left on mechanical ventilator support and was transferred to ICU. Postoperative labs showed sodium 135, potassium 3.8, chloride 104, bicarb 21, B UN 21, creatinine 1.6, lactate 0.9. BP 108/58, heart rate 72 ECG shows sinus rhythm with first-degree AV block and left bundle branch 01/25/2024 Patient is currently on Precedex drip getting a trial of feeding today 01/26/24 Patient was successfully extubated today. Currently he appears to be hemodyn amically stable. He is in sinus rhythm with first AV block. Patient is complaining of abdominal pain at the time of evaluation. PHYSICAL EXAMINATION Lungs: On vent support, diminished breath sounds bilateral lung field Heart: Regular rate and rhythm, S1-S2, systolic murmur Abdomen: Surgical dressing in place, mild tenderness on palpation. ASSESSMENT S/p laparotomy with cholecystectomy and appendectomy 01/23/2024 Ventilator dependent respiratory failure S/p TAVR November 30, 2023 First-degree AV block with left bundle branch block, no pauses History of CABG Type 2 diabetes Dyslipidemia Obesity Dementia PLAN Continue aspirin, atorvastatin, hold AV nehemiah blocking agent Supportive care and postop care as per ICU team and surgical Objective - Vital Signs Vital signs: Vital Signs Temp 97.8 F 01/26/24 16:32 Pulse 53 L 01/26/24 19:00 Resp 22 01/26/24 19:00 BP 110/24 01/26/24 19:00 Pulse Ox 97 01/26/24 19:00 FiO2 50 01/25/24 14:50 Intake & Output 01/26/24 01/26/24 01/27/24 06:59 18:59 06:59 Intake Total 0454.503 4336.602 19.591 Output Total 503 570 35 Balance 645.253 2963.602 -15.409 Weight 94.7 kg Intake: IV 900 1875 ACETAMINOPHEN IV (For NPO 200 ) 1,000 mg In Empty Bag 1 bag @ 400 mls/hr IVPB Q6HR [facility] Rx#:[id number] Dextrose 5% in Water 1, 900 75 000 ml @ 75 mls/hr IV . [id number] [facility] with Sodium Bicarb (1 Meq/ml) 150 ml Rx#:[id number] Piperacillin-Tazobactam 3 100 .375 gm In Sodium Chloride 0.9% 100 ml @ 25 mls/hr IVPB Q8HR [facility] Rx# :[id number] Potassium Chloride 10 meq 200 In Water For Injection 1 100ml.bag @ 100 mls/hr IVPB Q1H [facility] Rx#: [id number] Sodium Chloride 0.9% 1, 800 000 ml @ 100 mls/hr IV . Q10H [facility] Rx#:[id number] Sodium Chloride 0.9% 500 500 ml 500 ml @ 999 mls/hr IV .Q31M [facility] Rx#:[id number] Intake, IV Titration 285.652 325.602 19.591 Amount ACETAMINOPHEN IV (For NPO 100 ) 1,000 mg In Empty Bag 1 bag @ 400 mls/hr IVPB Q6HR [facility] Rx#:[id number] Calcium Gluconate in NaCl 100 2 gm In Saline 1 100ml. bag @ 100 mls/hr IVPB ONCE [facility] Rx#:[id number] Dexmedetomidine/0.9% NaCl 85.652 125.602 19.591 (Pmx) 400 mcg In Empty Bag 1 bag @ 0.2 MCG/KG/HR 4.655 mls/hr IV .[id number] [facility] Rx#:[id number] Piperacillin-Tazobactam 3 100 100 .375 gm In Sodium Chloride 0.9% 100 ml @ 25 mls/hr IVPB Q8HR [facility] Rx# :[id number] Oral 0 0 Output: Drainage 15 10 Right Lower Abdomen 15 10 Urine 488 560 35 Other: Voiding Method Indwelling Catheter Indwelling Catheter - Labs CBC & Chem 7: 01/26/24 04:35 01/26/24 04:35 Labs: Abnormal Lab Results - Last 24 Hours (Table) 01/26/24 01/26/24 01/26/24 Range/Units 00:09 04:35 04:35 WBC 16.0 H (3.8-10.6) k/uL RBC 3.24 L (4.30-5.90) m/uL Hgb 9.0 L (13.0-17.5) gm/dL Hct 27.9 L (39.0-53.0) % RDW 16.8 H (11.5-15.5) % Neutrophils # 14.4 H (1.3-7.7) k/uL Lymphocytes # 0.6 L (1.0-4.8) k/uL Sodium 134 L (137-145) mmol/L Carbon Dioxide 35 H (22-30) mmol/L BUN 27 H (9-20) mg/dL Glucose 433 H (74-99) mg/dL POC Glucose (mg/dL) 234 H (70-110) mg/dL Calcium 6.2 L* (8.4-10.2) mg/dL 01/26/24 01/26/24 01/26/24 Range/Units 06:20 11:40 17:00 WBC (3.8-10.6) k/uL RBC (4.30-5.90) m/uL Hgb (13.0-17.5) gm/dL Hct (39.0-53.0) % RDW (11.5-15.5) % Neutrophils # (1.3-7.7) k/uL Lymphocytes # (1.0-4.8) k/uL Sodium (137-145) mmol/L Carbon Dioxide (22-30) mmol/L BUN (9-20) mg/dL Glucose (74-99) mg/dL POC Glucose (mg/dL) 212 H 127 H 147 H (70-110) mg/dL Calcium (8.4-10.2) mg/dL 01/26/24 Range/Units 18:27 WBC (3.8-10.6) k/uL RBC (4.30-5.90) m/uL Hgb (13.0-17.5) gm/dL Hct (39.0-53.0) % RDW (11.5-15.5) % Neutrophils # (1.3-7.7) k/uL Lymphocytes # (1.0-4.8) k/uL Sodium (137-145) mmol/L Carbon Dioxide (22-30) mmol/L BUN (9-20) mg/dL Glucose (74-99) mg/dL POC Glucose (mg/dL) 137 H (70-110) mg/dL Calcium (8.4-10.2) mg/dL Microbiology - Last 24 Hours (Table) 01/22/24 22:17 Blood Culture - Preliminary Blood 01/24/24 00:18 Gram Stain - Final Sputum Sputum Culture - Final 01/23/24 13:55 Blood Culture - Preliminary Blood
[2024-01-26 23:28] LABS: Glucose,Whole Blood 174 mg/dL (70-110)
[2024-01-27 06:07] LABS: Glucose,Whole Blood 166 mg/dL (70-110)
[2024-01-27 07:55] LABS: African American GFR (CKD) 61 (>60 ml/min/1.73 sqM); Anion Gap 17 mmol/L; Blood Urea Nitrogen 27 mg/dL (9-20); Calcium 7.4 mg/dL (8.4-10.2); Carbon Dioxide 12 mmol/L (22-30); Chloride 111 mmol/L (98-107); Glucose 166 mg/dL (74-99); Non-African American GFR(CKD) 53 (>60 ml/min/1.73 sqM); Potassium 4.3 mmol/L (3.5-5.1); Sodium 140 mmol/L (137-145)
[2024-01-27 08:13] LABS: Anisocytosis Slight; HCT 35.8 % (39.0-53.0); HGB 11.3 gm/dL (13.0-17.5); Hypochromasia Marked; MCH 27.3 pg (25.0-35.0); MCHC 31.6 g/dL (31.0-37.0); MCV 86.4 fL (80.0-100.0); Mean Platelet Volume 7.7; Platelet Count 247 k/uL (150-450); RBC 4.14 m/uL (4.30-5.90); RDW 16.7 % (11.5-15.5); WBC 18.7 k/uL (3.8-10.6)
--- NOTE | 2024-01-27 09:55 | CDI ---
Documentation Clarification Form Date: 01/27/2024 09:13:19 AM From: Vivian Rebolledo RN,CCDS Phone: [phone] Admit Date: 01/22/2024 09:30:00 PM Patient Name: Tim Coleman Visit Number: [id number] Discharge Date: ATTENTION: The Clinical Documentation Specialists (CDI) and [facility] Coding Staff appreciate your assistance in clarifying documentation. Please respond to the clarification below the line at the bottom and electronically sign. The CDI & [facility] Coding staff will review the response and follow-up if needed. Please note: Queries are made part of the Legal Health Record. If you have any questions, please contact the author of this message via ITS. Dr. Vincenzo Knight Ventilator dependent respiratory failure after surgery is documented in the progress notes starting on and 01/24/24 patient had Laparoscopic cholecystectomy turned open, open appendectomy on 01/23/24. Additional clarification is requested regarding the relationship, if any, that exists between the diagnosis and the procedure. Patients Admitting Diagnosis: Chronic cholecystitis with suspected bile leak. Post-Operative Diagnosis: same Procedure performed: Laparoscopic cholecystectomy turned open, open appendectomy History/Risk Factors: Coronary Artery Disease, Heart Failure, COPD, Diabetes Mellitus, Hyperlipidemia, dementia, Hypertension, [place], Pneumonia, Covid Oct 2022, Bronchitis; SX: Coronary Bypass/CABG, TAVR Oct 2023. Clinical Indicators: 78-year-old male post open cholecystectomy with open appendectomy. Postoperatively, the patient was left on the mechanical ventilator and transferred to the intensive care unit. Blood pressure remains normotensive. Not requiring any vasopressors. 01/22 Pulmonary progress note: Postoperative ventilator management, Treatment: ICU Cardiac/Telemetry monitoring Pulmonary to monitor vent setting Repeat CXR Zosyn 3.375 GM IVPB Q8 HR 01/22-01/26 .9 NS @ 100 HR 01/25-01/26 What relationship, if any, exists between the diagnosis of Ventilatory dependent respiratory failure after surgery and the procedure. [ ] Ventilatory dependent respiratory failure after surgery is a complication of surgical procedure. [ ] Ventilatory dependent respiratory failure after surgery is an expected outcome of the surgical procedure. [x] Ventilatory dependent respiratory failure after surgery is related to patients co-morbid condition(s) of coronary artery disease, heart failure, COPD, Sepsis, & not a complication of the procedure. [ ] Ventilatory dependent respiratory failure after surgery has been ruled out. [ ] Other please specify ____ [ ] Unable to determine (Template Last Revised: January 2021) MTDD
[2024-01-27 10:21] LABS: Band Neutrophils % 1 %; Lymphocytes # (M) 0.37 k/uL (1.0-4.8); Monocytes # (M) 1.31 k/uL (0-1.0); Neutrophils % (M) 90 %; Nucleated Red Blood Cells 0 /100 WBC (0-0); Total Cells Counted 100
[2024-01-27 10:22] LABS: Poikilocytosis (M) Present
--- NOTE | 2024-01-27 10:53 | P.PN ---
Subjective Progress Note Date: 01/27/24 Pt c/o pain today, still having ongoing agitation issues. Not taking PO meds. Gen: In moderate distress from pain, non-toxic HEENT: normocephalic, atraumatic, hearing acuity is intant, mucous membranes moist CVS: perfusing all extremities well, no pitting edema, Respiratory: symmetric chest expansion, no accessory muscle use, GI: soft, NTTP, ND, : no suprapubic tenderness, no CVA tenderness MSK/Derm: no rashes, cyanosis Neuro: CN II-XII intact, no motor weakness, Hospital Course: 78 year old M with PMH of COPD, DM, HTN, GERD, BPH, CAD with CABG, Dementia, Depression and anxiety, diastolic CHF, h/o TAVR presented to the ED for RLQ abdominal pain. Recently hospitalized from 12/23-01/02 for cholecystitis, NSTEMI and SAMANTHA. Found to be high risk for surgery, underwent cholecystostomy, discharged on PO antibiotics. He presents back to the hospital for RLQ pain that started on Tuesday. In the ED he underwent extensive evaluation. BP 127/75 HR 87 T 98.7F RR 18 94% on RA. CBC and CMP significant for WBC 18.3, Hg 12.8, bicarb 19, BUN 22, Cr 1.32, glu 133, alk phos 135, alb 3.4. Lactic acid 3.1. CT AP showed foci of gas in the upper abdomen, retraction of the percutaneous cholecystostomy tube, colitis of the transverse colon to the rectum and dilated appedix concerning for appendicitis. Patient admitted to the medicine service. Patient had a appendectomy and cholecystectomy done by general surgery. After surgery patient remained intubated and was transferred to the ICU. He has since been extubated, but remained on precedex for agitation. Assessment and plan Sepsis on admission Appendicitis Bile Leak Likely source is appendicitis and bile leak from recent cholecystectomy Status post cholecystectomy and appendectomy done on this admission Resume IV Zosyn Patient's WBC is trending down Pain control with IV Tylenol PRN, IV dilaudid PRN, morphine PRN Agitation control with haldol PRN, precedex gtt weaned off as of 01/26 Protein Calorie Malnutrition, moderate Discuss with general surgery today regarding initiating TFs for nutritional support Communication Engineer consult is in Ventilatory dependent respiratory failure after surgery Auto Bench Mechanic to manage vent On nasal cannula Acute kidney injury IV fluids Monitor BMP Renal function is stable Acute blood loss anemia likely from surgery Trend hemoglobin transfuse for hemoglobin less than 7 Coronary disease Chronic diastolic heart failure Recent TAVR Cardiology on board Stable Resume home cardiac meds Chronic conditions COPD Diabetes mellitus Hypertension GERD BPH Dementia Depression anxiety -Stable DVT prophylaxis: Subcu heparin Full code Objective - Vital Signs Vital signs: Vital Signs Temp 98.3 F 01/27/24 09:00 Pulse 92 01/27/24 10:00 Resp 25 H 01/27/24 10:00 BP 144/55 01/27/24 10:00 Pulse Ox 97 01/27/24 10:00 FiO2 50 01/25/24 14:50 Intake & Output 01/26/24 01/27/24 01/27/24 18:59 06:59 18:59 Intake Total 2200.602 1124.556 100 Output Total 570 620 200 Balance 1630.602 504.556 -100 Weight 99.2 kg Intake: IV 1875 1100 100 ACETAMINOPHEN IV (For NPO 200 ) 1,000 mg In Empty Bag 1 bag @ 400 mls/hr IVPB Q6HR [facility] Rx#:[id number] Dextrose 5% in Water 1, 75 000 ml @ 75 mls/hr IV . [id number] [facility] with Sodium Bicarb (1 Meq/ml) 150 ml Rx#:[id number] Piperacillin-Tazobactam 3 100 .375 gm In Sodium Chloride 0.9% 100 ml @ 25 mls/hr IVPB Q8HR [facility] Rx# :[id number] Potassium Chloride 10 meq 200 In Water For Injection 1 100ml.bag @ 100 mls/hr IVPB Q1H [facility] Rx#: [id number] Sodium Chloride 0.9% 1, 800 1100 100 000 ml @ 100 mls/hr IV . Q10H [facility] Rx#:[id number] Sodium Chloride 0.9% 500 500 ml 500 ml @ 999 mls/hr IV .Q31M [facility] Rx#:[id number] Intake, IV Titration 325.602 24.556 Amount Calcium Gluconate in NaCl 100 2 gm In Saline 1 100ml. bag @ 100 mls/hr IVPB ONCE [facility] Rx#:[id number] Dexmedetomidine/0.9% NaCl 125.602 24.556 (Pmx) 400 mcg In Empty Bag 1 bag @ 0.2 MCG/KG/HR 4.655 mls/hr IV .[id number] [facility] Rx#:[id number] Piperacillin-Tazobactam 3 100 .375 gm In Sodium Chloride 0.9% 100 ml @ 25 mls/hr IVPB Q8HR [facility] Rx# :[id number] Oral 0 0 Output: Drainage 10 180 80 Right Lower Abdomen 10 180 80 Urine 560 440 120 Other: Voiding Method Indwelling Catheter Indwelling Catheter Indwelling Catheter # Bowel Movements 1 - Labs CBC & Chem 7: 01/27/24 06:51 01/27/24 06:51 Labs: Abnormal Lab Results - Last 24 Hours (Table) 01/26/24 01/26/24 01/26/24 Range/Units 11:40 17:00 18:27 WBC (3.8-10.6) k/uL RBC (4.30-5.90) m/uL Hgb (13.0-17.5) gm/dL Hct (39.0-53.0) % RDW (11.5-15.5) % Neutrophils # (Manual) (1.3-7.7) k/uL Lymphocytes # (Manual) (1.0-4.8) k/uL Monocytes # (Manual) (0-1.0) k/uL Chloride (98-107) mmol/L Carbon Dioxide (22-30) mmol/L BUN (9-20) mg/dL Creatinine (0.66-1.25) mg/dL Glucose (74-99) mg/dL POC Glucose (mg/dL) 127 H 147 H 137 H (70-110) mg/dL Calcium (8.4-10.2) mg/dL 01/26/24 01/27/24 01/27/24 Range/Units 23:27 06:05 06:51 WBC 18.7 H (3.8-10.6) k/uL RBC 4.14 L (4.30-5.90) m/uL Hgb 11.3 L (13.0-17.5) gm/dL Hct 35.8 L (39.0-53.0) % RDW 16.7 H (11.5-15.5) % Neutrophils # (Manual) 17.00 H (1.3-7.7) k/uL Lymphocytes # (Manual) 0.37 L (1.0-4.8) k/uL Monocytes # (Manual) 1.31 H (0-1.0) k/uL Chloride (98-107) mmol/L Carbon Dioxide (22-30) mmol/L BUN (9-20) mg/dL Creatinine (0.66-1.25) mg/dL Glucose (74-99) mg/dL POC Glucose (mg/dL) 174 H 166 H (70-110) mg/dL Calcium (8.4-10.2) mg/dL 01/27/24 Range/Units 06:51 WBC (3.8-10.6) k/uL RBC (4.30-5.90) m/uL Hgb (13.0-17.5) gm/dL Hct (39.0-53.0) % RDW (11.5-15.5) % Neutrophils # (Manual) (1.3-7.7) k/uL Lymphocytes # (Manual) (1.0-4.8) k/uL Monocytes # (Manual) (0-1.0) k/uL Chloride 111 H (98-107) mmol/L Carbon Dioxide 12 L (22-30) mmol/L BUN 27 H (9-20) mg/dL Creatinine 1.31 H (0.66-1.25) mg/dL Glucose 166 H (74-99) mg/dL POC Glucose (mg/dL) (70-110) mg/dL Calcium 7.4 L (8.4-10.2) mg/dL Microbiology - Last 24 Hours (Table) 01/23/24 13:55 Blood Culture - Preliminary Blood 01/22/24 22:17 Blood Culture - Preliminary Blood 01/24/24 00:18 Gram Stain - Final Sputum Sputum Culture - Final
--- NOTE | 2024-01-27 11:53 | P.PN ---
Subjective Progress Note Date: 01/27/24 Principal diagnosis: Chronic cholecystitis, status post cholecystectomy and appendectomy 01/23/2024 I am seeing this patient in consultation today 01/24/2024 in the intensive care unit as he is status postoperative day #1 following a laparoscopic cholecystectomy converted to open surgery with open appendectomy. Patient is a 78-year-old white male with past medical history significant for recent transcatheter aortic valve replacement on November 30, previous CABG, diabetes mellitus, hyperlipidemia, hypertension, peripheral vascular disease, BPH, advanced dementia, and recent inpatient hospitalization 12/23/2023 through 01/02/2024 for acute cholecystitis status post CT-guided percutaneous cholecystostomy tube placement on 12/28/2023. Patient was initially discharged home with home health care, but somehow ended up at [facility] [place]. Patient sent into the emergency room on 01/22/2024 with intractable nausea and vomiting and abdominal pain. Patient is currently intubated to mechanical ventilator, and I am unable to provide elicit any information for this reason. An abdominal/pelvis CT taken on admission showed few scattered foci of gas in the upper abdomen which could be secondary to partial retraction of the percutaneous cholecystostomy tube with sideport open to the peritoneal cavity. There was cholecystitis involving the transverse colon to the rectum. Dilated appendix which was new from previous imaging on 12/25/2023. And a small left pleural effusion. Patient was taken to the operating room on 01/23/2024 was found to have cholecystitis with focal gangrenous changes and bile leak. Patient underwent a laparoscopic cholecystectomy which was converted to open procedure with open appendectomy. Postoperatively, the patient was left on the mechanical ventilator and transferred to the intensive care unit. Patient is currently in room 258, he is intubated, and on the mechanical ventilator. He is sedated on propofol which is infusing at 20 mcg/kg/min. He is synchronous with the mechanical ventilator. He wakes with tactile stimulus, but does not follow any commands. Postoperative chest x-ray shows endotracheal tube above the karly, and orogastric tube coursing below the diaphragm, and a small left pleural effusion. No other acute cardiopulmonary pathology noted. Postoperative ABG as a PaO2 greater than 400, pCO2 of 36, and pH of 7.35. This was done on ventilator settings including assist-control, respiratory rate 18, tidal volume 450, FiO2 100%, and PEEP of 5. FiO2 was sent weaned to 40%. I am told the patient had an EBL of approximately 350 mL and was given 1 L normal saline bolus intraoperatively. Blood pressure remains normotensive. Not requiring any vasopressors. Normal saline is infusing at 75 mL/h. Postoperative CBC is a WBC count of 17, hemoglobin stable at 11.8, hematocrit 37, platelets 263. Postoperative BMP includes a sodium 135, potassium 3.8, chloride 104, serum bicarb 21, BUN 21, creatinine 1.36, glucose 200. Lactic acid level 0.9. Patient does have a indwelling urinary catheter draining 40 to 50 mL of urine per hour. Urinalysis has small leukocyte Estrace and pyuria. Patient is empirically covered on Zosyn for his abdomen. He is afebrile. Prognosis is guarded. Patient is being monitored in the intensive care unit. Patient was reevaluated today on 01/25/2024, patient remains in the ICU, he is on assist-control rate of 18 tidal volume 450 FiO2 40% and PEEP of 5. ABG showed a pO2 of 100 pCO2 32 pH of 7.37. Overnight the patient was kept on Precedex, and he is on 0.4 mcg/kg/h. Patient is on IV fluid at 75 cc/h vital HP at 20 cc/h. Urine output is excellent about 30 to 50 cc/h. Patient is not agitated, he is not restless, seems to be calm, hence I am planning to place the patient on pressure support of 10 and CPAP, and if tolerated may consider weaning and ex tubating the patient. Chest x-ray showed mild pulmonary vascular congestion, and retrocardiac atelectasis, patient will be given a dose of Lasix, and his IV fluid was cut down to KVO WBC count today is 16.2 hemoglobin is 8.5 basic metabolic profile is normalHowever bicarb is 12 BUN is 25 creatinine 1.27 Patient was reevaluated today on 01/26/2024, patient was extubated yesterday, he tolerated extubation well, patient is now on Precedex at 0.6, patient is also on Dilaudid and Zosyn as well as Ativan added today. Patient gets agitated, he does have underlying dementia, and keeps trying to get out of bed. Hence we will continue the Precedex today, will add Ativan 0.5 mg IV push every 2 hours as needed. Patient remains on 2 L nasal cannula with O2 sats of 98%. His x-ray showed cardiomegaly and left basilar atelectasis Patient was reevaluated today on 01/27/2024, patient is doing fairly well except for his episodes of agitation, patient has severe underlying dementia, and takes a number of people to keep him calm, patient yesterday was on Precedex and Ativan, developed a bit of obtundation, and Precedex was discontinued today the patient is receiving Ativan as needed, nonetheless, patient continues to have significant agitation. WBC count is 18.7 hemoglobin is 11.3, basic metabolic profile is normal bicarb is 12 anion gap is 17 BUN is 27 creatinine 1.31. Chest x-ray from yesterday showed mostly left basilar atelectasis Objective - Vital Signs Vital signs: Vital Signs Temp 98.3 F 01/27/24 09:00 Pulse 86 01/27/24 11:00 Resp 28 H 01/27/24 11:00 BP 146/55 01/27/24 11:00 Pulse Ox 97 01/27/24 11:00 FiO2 50 01/25/24 14:50 Intake & Output 01/26/24 01/27/24 01/27/24 18:59 06:59 18:59 Intake Total 2200.602 1124.556 300 Output Total 570 620 260 Balance 1630.602 504.556 40 Weight 99.2 kg Intake: IV 1875 1100 300 ACETAMINOPHEN IV (For NPO 200 ) 1,000 mg In Empty Bag 1 bag @ 400 mls/hr IVPB Q6HR [facility] Rx#:[id number] Dextrose 5% in Water 1, 75 000 ml @ 75 mls/hr IV . [id number] [facility] with Sodium Bicarb (1 Meq/ml) 150 ml Rx#:[id number] Piperacillin-Tazobactam 3 100 .375 gm In Sodium Chloride 0.9% 100 ml @ 25 mls/hr IVPB Q8HR [facility] Rx# :[id number] Potassium Chloride 10 meq 200 In Water For Injection 1 100ml.bag @ 100 mls/hr IVPB Q1H [facility] Rx#: [id number] Sodium Chloride 0.9% 1, 800 1100 300 000 ml @ 100 mls/hr IV . Q10H [facility] Rx#:[id number] Sodium Chloride 0.9% 500 500 ml 500 ml @ 999 mls/hr IV .Q31M [facility] Rx#:[id number] Intake, IV Titration 325.602 24.556 Amount Calcium Gluconate in NaCl 100 2 gm In Saline 1 100ml. bag @ 100 mls/hr IVPB ONCE [facility] Rx#:[id number] Dexmedetomidine/0.9% NaCl 125.602 24.556 (Pmx) 400 mcg In Empty Bag 1 bag @ 0.2 MCG/KG/HR 4.655 mls/hr IV .[id number] [facility] Rx#:[id number] Piperacillin-Tazobactam 3 100 .375 gm In Sodium Chloride 0.9% 100 ml @ 25 mls/hr IVPB Q8HR [facility] Rx# :[id number] Oral 0 0 Output: Drainage 10 180 80 Right Lower Abdomen 10 180 80 Urine 560 440 180 Other: Voiding Method Indwelling Catheter Indwelling Catheter Indwelling Catheter # Bowel Movements 1 - Exam GENERAL EXAM: 78-year-old white male obese, extremely agitated, in bed. On 2 L nasal cannula with O2 sats of 97% HEAD: Normocephalic and atraumatic EYES: Normal reaction of pupils, equal size. NOSE: Clear with pink turbinates. THROAT: No erythema or exudates. NECK: No masses, no JVD. CHEST: No chest wall deformity. LUNGS: Fine crackles at the bases. CVS: S1 and S2 normal with no audible murmur, regular rhythm. No extra heart sounds ABDOMEN: Postsurgical abdomen with lateral incisional dressing intact and dry. JUNE drain remains SKIN: No rashes CENTRAL NERVOUS SYSTEM: Confused, restless and agitated EXTREMITIES: There is no peripheral edema, clubbing, or cyanosis. Peripheral pulses are intact. - Labs CBC & Chem 7: 01/27/24 06:51 01/27/24 06:51 Labs: Abnormal Lab Results - Last 24 Hours (Table) 01/26/24 01/26/24 01/26/24 Range/Units 17:00 18:27 23:27 WBC (3.8-10.6) k/uL RBC (4.30-5.90) m/uL Hgb (13.0-17.5) gm/dL Hct (39.0-53.0) % RDW (11.5-15.5) % Neutrophils # (Manual) (1.3-7.7) k/uL Lymphocytes # (Manual) (1.0-4.8) k/uL Monocytes # (Manual) (0-1.0) k/uL Chloride (98-107) mmol/L Carbon Dioxide (22-30) mmol/L BUN (9-20) mg/dL Creatinine (0.66-1.25) mg/dL Glucose (74-99) mg/dL POC Glucose (mg/dL) 147 H 137 H 174 H (70-110) mg/dL Calcium (8.4-10.2) mg/dL 01/27/24 01/27/24 01/27/24 Range/Units 06:05 06:51 06:51 WBC 18.7 H (3.8-10.6) k/uL RBC 4.14 L (4.30-5.90) m/uL Hgb 11.3 L (13.0-17.5) gm/dL Hct 35.8 L (39.0-53.0) % RDW 16.7 H (11.5-15.5) % Neutrophils # (Manual) 17.00 H (1.3-7.7) k/uL Lymphocytes # (Manual) 0.37 L (1.0-4.8) k/uL Monocytes # (Manual) 1.31 H (0-1.0) k/uL Chloride 111 H (98-107) mmol/L Carbon Dioxide 12 L (22-30) mmol/L BUN 27 H (9-20) mg/dL Creatinine 1.31 H (0.66-1.25) mg/dL Glucose 166 H (74-99) mg/dL POC Glucose (mg/dL) 166 H (70-110) mg/dL Calcium 7.4 L (8.4-10.2) mg/dL Microbiology - Last 24 Hours (Table) 01/23/24 13:55 Blood Culture - Preliminary Blood 01/22/24 22:17 Blood Culture - Preliminary Blood 01/24/24 00:18 Gram Stain - Final Sputum Sputum Culture - Final Assessment and Plan Assessment: Impression: Chronic cholecystitis status post open cholecystectomy and appendectomy 01/23/2024. Patient was extubated on 01/25/2024 Advanced dementia Acute blood loss anemia expected as the outcome of surgery Chronic kidney disease stage III History of aortic stenosis and previous TAVR. History of coronary arteriosclerosis and previous CABG Chronic atrial fibrillation Dyslipidemia Type 2 diabetes History of BPH Benign essential hypertension Recommendation: Continue to monitor in the ICU Continue incentive spirometry. Continue Ativan as needed, patient is off Precedex continue supportive care measures, Continue IV fluid Continue GI and DVT prophylaxis. Will continue to follow Time with Patient: Less than 30
[2024-01-27 11:56] LABS: Glucose,Whole Blood 182 mg/dL (70-110)
--- NOTE | 2024-01-27 12:53 | P.PN ---
Subjective Progress Note Date: 01/27/24 CHIEF COMPLAINT: Chronic cholecystitis HISTORY OF PRESENT ILLNESS: Patient remains in the ICU. Patient is currently sleeping after receiving Dilaudid. He is off of the Precedex. Still has a bedside sitter and restraints due to his agitation. Patient is not eating. He is having bowel movements. JUNE drain with increased output 120 mL serosanguineous output. Patient is postop day #4 status post laparoscopic cholecystectomy turned open and open appendectomy. Afebrile. PHYSICAL EXAM: VITAL SIGNS: Reviewed. GENERAL: no acute distress. ABDOMEN: Soft. Mildly distended. Incisional dressing clean dry and intact. JUNE drain serosanguineous ASSESSMENT: 1. Chronic cholecystitis with focal gangrenous changes, bile leak 2. Dilated appendix PLAN: -Continue ICU management -Continue supportive care -Continue antibiotics -Continue IV fluids -Patient is not eating. Consult dietitian for TPN. PICC line ordered. -DVT prophylaxis subcu heparin Physician Insurance And Financial Services Agent note has been reviewed by physician. Signing provider agrees with the documented findings, assessment, and plan of care. I have personally seen and examined the patient, reviewed the GLUE LINE OPERATOR /PAs history, exam and MDM and agree with the assessment and plan as written. Based on total visit time, I have performed more than 50% of the visit. As above: Patient remains confused. Poor oral intake is our main issue today. Plans for gastric tube placement transnasally for tube feeds at this time. Hold TPN for now. Patient has mild right upper quadrant tenderness. JUNE drain serosanguineous but mostly serous. White blood cell count is slightly higher today. Recheck labs tomorrow. Objective - Vital Signs Vital signs: Vital Signs Temp 98.3 F 01/27/24 09:00 Pulse 86 01/27/24 11:00 Resp 28 H 01/27/24 11:00 BP 146/55 01/27/24 11:00 Pulse Ox 97 01/27/24 11:00 FiO2 50 01/25/24 14:50 Intake & Output 01/26/24 01/27/24 01/27/24 18:59 06:59 18:59 Intake Total 2200.602 1124.556 300 Output Total 570 620 260 Balance 1630.602 504.556 40 Weight 99.2 kg Intake: IV 1875 1100 300 ACETAMINOPHEN IV (For NPO 200 ) 1,000 mg In Empty Bag 1 bag @ 400 mls/hr IVPB Q6HR [facility] Rx#:[id number] Dextrose 5% in Water 1, 75 000 ml @ 75 mls/hr IV . [id number] [facility] with Sodium Bicarb (1 Meq/ml) 150 ml Rx#:[id number] Piperacillin-Tazobactam 3 100 .375 gm In Sodium Chloride 0.9% 100 ml @ 25 mls/hr IVPB Q8HR [facility] Rx# :[id number] Potassium Chloride 10 meq 200 In Water For Injection 1 100ml.bag @ 100 mls/hr IVPB Q1H [facility] Rx#: [id number] Sodium Chloride 0.9% 1, 800 1100 300 000 ml @ 100 mls/hr IV . Q10H [facility] Rx#:[id number] Sodium Chloride 0.9% 500 500 ml 500 ml @ 999 mls/hr IV .Q31M [facility] Rx#:[id number] Intake, IV Titration 325.602 24.556 Amount Calcium Gluconate in NaCl 100 2 gm In Saline 1 100ml. bag @ 100 mls/hr IVPB ONCE [facility] Rx#:[id number] Dexmedetomidine/0.9% NaCl 125.602 24.556 (Pmx) 400 mcg In Empty Bag 1 bag @ 0.2 MCG/KG/HR 4.655 mls/hr IV .[id number] [facility] Rx#:[id number] Piperacillin-Tazobactam 3 100 .375 gm In Sodium Chloride 0.9% 100 ml @ 25 mls/hr IVPB Q8HR [facility] Rx# :[id number] Oral 0 0 Output: Drainage 10 180 80 Right Lower Abdomen 10 180 80 Urine 560 440 180 Other: Voiding Method Indwelling Catheter Indwelling Catheter Indwelling Catheter # Bowel Movements 1 - Labs CBC & Chem 7: 01/27/24 06:51 01/27/24 06:51 Labs: Abnormal Lab Results - Last 24 Hours (Table) 01/26/24 01/26/24 01/26/24 Range/Units 17:00 18:27 23:27 WBC (3.8-10.6) k/uL RBC (4.30-5.90) m/uL Hgb (13.0-17.5) gm/dL Hct (39.0-53.0) % RDW (11.5-15.5) % Neutrophils # (Manual) (1.3-7.7) k/uL Lymphocytes # (Manual) (1.0-4.8) k/uL Monocytes # (Manual) (0-1.0) k/uL Chloride (98-107) mmol/L Carbon Dioxide (22-30) mmol/L BUN (9-20) mg/dL Creatinine (0.66-1.25) mg/dL Glucose (74-99) mg/dL POC Glucose (mg/dL) 147 H 137 H 174 H (70-110) mg/dL Calcium (8.4-10.2) mg/dL 01/27/24 01/27/24 01/27/24 Range/Units 06:05 06:51 06:51 WBC 18.7 H (3.8-10.6) k/uL RBC 4.14 L (4.30-5.90) m/uL Hgb 11.3 L (13.0-17.5) gm/dL Hct 35.8 L (39.0-53.0) % RDW 16.7 H (11.5-15.5) % Neutrophils # (Manual) 17.00 H (1.3-7.7) k/uL Lymphocytes # (Manual) 0.37 L (1.0-4.8) k/uL Monocytes # (Manual) 1.31 H (0-1.0) k/uL Chloride 111 H (98-107) mmol/L Carbon Dioxide 12 L (22-30) mmol/L BUN 27 H (9-20) mg/dL Creatinine 1.31 H (0.66-1.25) mg/dL Glucose 166 H (74-99) mg/dL POC Glucose (mg/dL) 166 H (70-110) mg/dL Calcium 7.4 L (8.4-10.2) mg/dL 01/27/24 Range/Units 11:54 WBC (3.8-10.6) k/uL RBC (4.30-5.90) m/uL Hgb (13.0-17.5) gm/dL Hct (39.0-53.0) % RDW (11.5-15.5) % Neutrophils # (Manual) (1.3-7.7) k/uL Lymphocytes # (Manual) (1.0-4.8) k/uL Monocytes # (Manual) (0-1.0) k/uL Chloride (98-107) mmol/L Carbon Dioxide (22-30) mmol/L BUN (9-20) mg/dL Creatinine (0.66-1.25) mg/dL Glucose (74-99) mg/dL POC Glucose (mg/dL) 182 H (70-110) mg/dL Calcium (8.4-10.2) mg/dL Microbiology - Last 24 Hours (Table) 01/23/24 13:55 Blood Culture - Preliminary Blood 01/22/24 22:17 Blood Culture - Preliminary Blood 01/24/24 00:18 Gram Stain - Final Sputum Sputum Culture - Final
--- NOTE | 2024-01-27 15:49 | P.PN ---
Subjective Progress Note Date: 01/27/24 HISTORY OF PRESENTING ILLNESS Patient has a past medical history of TAVR valve and is previously known to Dr. Montgomery. On 01/23/2024 patient underwent laparoscopic cholecystectomy which was converted to open surgery with appendectomy. 78-year-old with past medical history of TAVR on November 30, previous CABG, type 2 diabetes, dyslipidemia, hypertension, PAD, BPH, dementia and recent hospitalization in December for acute cholecystitis s/p CT-guided percutaneous cholecystectomy tube placement on 12/28/2023 Postoperatively patient was left on mechanical ventilator support and was transferred to ICU. Postoperative labs showed sodium 135, potassium 3.8, chloride 104, bicarb 21, B UN 21, creatinine 1.6, lactate 0.9. BP 108/58, heart rate 72 ECG shows sinus rhythm with first-degree AV block and left bundle branch 01/25/2024 Patient is currently on Precedex drip getting a trial of feeding today 01/26/24 Patient was successfully extubated today. Currently he appears to be hemodyn amically stable. He is in sinus rhythm with first AV block. Patient is complaining of abdominal pain at the time of evaluation. 01/27/2024 Patient was successfully extubated on 01/25/2024. Patient has been hemodynamically stable. He is complaining of abdominal pain. He continues to be in sinus rhythm with first AV block and left bundle branch block. PHYSICAL EXAMINATION Lungs: On vent support, diminished breath sounds bilateral lung field Heart: Regular rate and rhythm, S1-S2, systolic murmur Abdomen: Surgical dressing in place, mild tenderness on palpation. ASSESSMENT S/p laparotomy with cholecystectomy and appendectomy 01/23/2024 Ventilator dependent respiratory failure S/p TAVR November 30, 2023 First-degree AV block with left bundle branch block, no pauses History of CABG Type 2 diabetes Dyslipidemia Obesity Dementia PLAN Continue aspirin, atorvastatin, hold AV nehemiah blocking agent Supportive care and postop care as per ICU team and surgical At this time cardiology team will sign off. Please reconsult us in case of any questions Objective - Vital Signs Vital signs: Vital Signs Temp 98.7 F 01/27/24 12:00 Pulse 98 01/27/24 15:00 Resp 19 01/27/24 15:00 BP 127/56 01/27/24 15:00 Pulse Ox 95 01/27/24 15:00 FiO2 50 01/25/24 14:50 Intake & Output 01/26/24 01/27/24 01/27/24 18:59 06:59 18:59 Intake Total 2200.602 1124.556 600 Output Total 570 620 335 Balance 1630.602 504.556 265 Weight 99.2 kg 99.2 kg Intake: IV 1875 1100 600 ACETAMINOPHEN IV (For NPO 200 ) 1,000 mg In Empty Bag 1 bag @ 400 mls/hr IVPB Q6HR [facility] Rx#:[id number] Dextrose 5% in Water 1, 75 000 ml @ 75 mls/hr IV . [id number] [facility] with Sodium Bicarb (1 Meq/ml) 150 ml Rx#:[id number] Piperacillin-Tazobactam 3 100 .375 gm In Sodium Chloride 0.9% 100 ml @ 25 mls/hr IVPB Q8HR [facility] Rx# :[id number] Potassium Chloride 10 meq 200 In Water For Injection 1 100ml.bag @ 100 mls/hr IVPB Q1H [facility] Rx#: [id number] Sodium Chloride 0.9% 1, 800 1100 600 000 ml @ 100 mls/hr IV . Q10H [facility] Rx#:[id number] Sodium Chloride 0.9% 500 500 ml 500 ml @ 999 mls/hr IV .Q31M [facility] Rx#:[id number] Intake, IV Titration 325.602 24.556 Amount Calcium Gluconate in NaCl 100 2 gm In Saline 1 100ml. bag @ 100 mls/hr IVPB ONCE [facility] Rx#:[id number] Dexmedetomidine/0.9% NaCl 125.602 24.556 (Pmx) 400 mcg In Empty Bag 1 bag @ 0.2 MCG/KG/HR 4.655 mls/hr IV .[id number] [facility] Rx#:[id number] Piperacillin-Tazobactam 3 100 .375 gm In Sodium Chloride 0.9% 100 ml @ 25 mls/hr IVPB Q8HR [facility] Rx# :[id number] Oral 0 0 Output: Drainage 10 180 80 Right Lower Abdomen 10 180 80 Urine 560 440 255 Other: Voiding Method Indwelling Catheter Indwelling Catheter Indwelling Catheter # Bowel Movements 1 - Labs CBC & Chem 7: 01/27/24 06:51 01/27/24 06:51 Labs: Abnormal Lab Results - Last 24 Hours (Table) 03/07/24 03/07/24 03/07/24 Range/Units 17:00 18:27 23:27 WBC (3.8-10.6) k/uL RBC (4.30-5.90) m/uL Hgb (13.0-17.5) gm/dL Hct (39.0-53.0) % RDW (11.5-15.5) % Neutrophils # (Manual) (1.3-7.7) k/uL Lymphocytes # (Manual) (1.0-4.8) k/uL Monocytes # (Manual) (0-1.0) k/uL Chloride (98-107) mmol/L Carbon Dioxide (22-30) mmol/L BUN (9-20) mg/dL Creatinine (0.66-1.25) mg/dL Glucose (74-99) mg/dL POC Glucose (mg/dL) 147 H 137 H 174 H (70-110) mg/dL Calcium (8.4-10.2) mg/dL 01/27/24 01/27/24 01/27/24 Range/Units 06:05 06:51 06:51 WBC 18.7 H (3.8-10.6) k/uL RBC 4.14 L (4.30-5.90) m/uL Hgb 11.3 L (13.0-17.5) gm/dL Hct 35.8 L (39.0-53.0) % RDW 16.7 H (11.5-15.5) % Neutrophils # (Manual) 17.00 H (1.3-7.7) k/uL Lymphocytes # (Manual) 0.37 L (1.0-4.8) k/uL Monocytes # (Manual) 1.31 H (0-1.0) k/uL Chloride 111 H (98-107) mmol/L Carbon Dioxide 12 L (22-30) mmol/L BUN 27 H (9-20) mg/dL Creatinine 1.31 H (0.66-1.25) mg/dL Glucose 166 H (74-99) mg/dL POC Glucose (mg/dL) 166 H (70-110) mg/dL Calcium 7.4 L (8.4-10.2) mg/dL 01/27/24 Range/Units 11:54 WBC (3.8-10.6) k/uL RBC (4.30-5.90) m/uL Hgb (13.0-17.5) gm/dL Hct (39.0-53.0) % RDW (11.5-15.5) % Neutrophils # (Manual) (1.3-7.7) k/uL Lymphocytes # (Manual) (1.0-4.8) k/uL Monocytes # (Manual) (0-1.0) k/uL Chloride (98-107) mmol/L Carbon Dioxide (22-30) mmol/L BUN (9-20) mg/dL Creatinine (0.66-1.25) mg/dL Glucose (74-99) mg/dL POC Glucose (mg/dL) 182 H (70-110) mg/dL Calcium (8.4-10.2) mg/dL Microbiology - Last 24 Hours (Table) 01/23/24 13:55 Blood Culture - Preliminary Blood 01/22/24 22:17 Blood Culture - Preliminary Blood 01/24/24 00:18 Gram Stain - Final Sputum Sputum Culture - Final
[2024-01-27] MEDS: LORazepam 2 MG/ML INJ IV PRN (16:08)
--- NOTE | 2024-01-27 18:11 | XR ---
EXAMINATION TYPE: XR chest 1V portable DATE OF EXAM: 01/27/2024 Comparison: 01/26/2024 Clinical History: 78-year-old male NG tube placement Findings: NG tube courses below the diaphragm. Median sternotomy wires and post-CABG clips. Endovascular aortic valve replacement. Focal bibasilar densities. Heart mildly enlarged. Similar on the left and slightl y increased on the right. Impression: Mild cardiomegaly and suspected trace bilateral pleural effusions with adjacent atelectasis and/or co nsolidation. Possible CHF as an etiology. NG tube satisfactory.
[2024-01-27 18:33] LABS: Glucose,Whole Blood 178 mg/dL (70-110)
--- NOTE | 2024-01-27 19:03 | XR ---
EXAMINATION TYPE: XR chest 1V portable DATE OF EXAM: 01/27/2024 Comparison: 01/27/2024 Clinical History: 78-year-old male pulled NG tube back, recheck please. Findings: ET tube satisfactory. Surgical drain right upper quadrant. Surgical clips right upper quadrant. Anter ior abdominal wall skin lakisha. Median sternotomy wires. Endovascular aortic valve replacement. Hear t mildly enlarged. Bibasilar opacities persist. Impression: 1. Improved positioning of the NG tube. Tip at the distal stomach/proximal duodenum. 2. Suspected mild CHF with pulmonary vascular congestion. 3. Ongoing small bilateral pleural effusions with adjacent atelectasis and/or consolidation.
[2024-01-27] MEDS: HALOPERIDOL LACTATE 5 MG/ML 1 ML VIAL IVP PRN (20:50)
[2024-01-28] LABS: Glucose,Whole Blood 207 mg/dL (70-110)
[2024-01-28 05:25] LABS: Glucose,Whole Blood 225 mg/dL (70-110)
[2024-01-28 07:37] LABS: ALT 10 U/L (4-49); AST 18 U/L (17-59); African American GFR (CKD) 60 (>60 ml/min/1.73 sqM); Alkaline Phosphatase 129 U/L (38-126); Anion Gap 9 mmol/L; Bilirubin, Delta 0.2 mg/dL (0.0-0.2); Bilirubin,Unconjugated 0.1 mg/dL (0.0-1.1); Blood Urea Nitrogen 27 mg/dL (9-20); Calcium 7.1 mg/dL (8.4-10.2); Carbon Dioxide 19 mmol/L (22-30); Chloride 115 mmol/L (98-107); Glucose 221 mg/dL (74-99); Magnesium 2.4 mg/dL (1.6-2.3); Non-African American GFR(CKD) 52 (>60 ml/min/1.73 sqM); Potassium 3.9 mmol/L (3.5-5.1); Sodium 143 mmol/L (137-145); Total Bilirubin 0.3 mg/dL (0.2-1.3); Total Protein 4.7 g/dL (6.3-8.2)
[2024-01-28 07:37] LABS: Anisocytosis Slight; Basophils % (A) 0 %; Eosinophils # (A) 0.1 k/uL (0-0.7); Eosinophils % (A) 1 %; HCT 33.5 % (39.0-53.0); HGB 10.5 gm/dL (13.0-17.5); Hypochromasia Marked; Lymphocytes # (A) 0.6 k/uL (1.0-4.8); Lymphocytes % (A) 4 %; MCH 27.5 pg (25.0-35.0); MCHC 31.3 g/dL (31.0-37.0); MCV 87.8 fL (80.0-100.0); Mean Platelet Volume 7.2; Monocytes % (A) 7 %; Neutrophils # (A) 13.1 k/uL (1.3-7.7); Neutrophils % (A) 88 %; Platelet Count 253 k/uL (150-450); RBC 3.81 m/uL (4.30-5.90); RDW 16.9 % (11.5-15.5); WBC 14.9 k/uL (3.8-10.6)
[2024-01-28] MEDS: NYSTATIN 100,000 UNIT/GM POWD 15 GM TOPICAL PRN (09:18)
[2024-01-28] MEDS: NYSTATIN 100,000 UNIT/GM OINT 30 GM TUBE TOPICAL SCH (09:18)
--- NOTE | 2024-01-28 10:11 | P.PN ---
Subjective Progress Note Date: 01/28/24 Pt had NGT placed yesterday and started on TFs. Agitation is improved, but not resolved. Gen: In moderate distress from pain, non-toxic HEENT: normocephalic, atraumatic, hearing acuity is intant, mucous membranes moist CVS: perfusing all extremities well, no pitting edema, Respiratory: symmetric chest expansion, no accessory muscle use, GI: soft, NTTP, ND, : no suprapubic tenderness, no CVA tenderness MSK/Derm: no rashes, cyanosis Neuro: CN II-XII intact, no motor weakness, Hospital Course: 78 year old M with PMH of COPD, DM, HTN, GERD, BPH, CAD with CABG, Dementia, Depression and anxiety, diastolic CHF, h/o TAVR presented to the ED for RLQ abdominal pain. Recently hospitalized from 12/23-01/02 for cholecystitis, NSTEMI and SAMANTHA. Found to be high risk for surgery, underwent cholecystostomy, discharged on PO antibiotics. He presents back to the hospital for RLQ pain that started on Tuesday. In the ED he underwent extensive evaluation. BP 127/75 HR 87 T 98.7F RR 18 94% on RA. CBC and CMP significant for WBC 18.3, Hg 12.8, bicarb 19, BUN 22, Cr 1.32, glu 133, alk phos 135, alb 3.4. Lactic acid 3.1. CT AP showed foci of gas in the upper abdomen, retraction of the percutaneous cholecystostomy tube, colitis of the transverse colon to the rectum and dilated appedix concerning for appendicitis. Patient admitted to the medicine service. Patient had a appendectomy and cholecystectomy done by general surgery. After surgery patient remained intubated and was transferred to the ICU. He has since been extubated, but remained on precedex for agitation. Assessment and plan Sepsis on admission Appendicitis Bile Leak - Chemical Peritonitis Likely source is appendicitis and bile leak from recent cholecystectomy Status post cholecystectomy and appendectomy done on this admission Resume IV Zosyn Patient's WBC is trending down, today 14.9; Hgb stable Pain control with IV Tylenol PRN, IV dilaudid PRN, morphine PRN Agitation control with haldol/ativan PRN, precedex gtt weaned off as of 01/26 Protein Calorie Malnutrition, moderate Discuss with general surgery today regarding initiating TFs for nutritional support Strike Planning Applications consult is in Ventilatory dependent respiratory failure after surgery Head Kiln Operator to manage vent On nasal cannula Acute kidney injury IV fluids Monitor BMP Renal function is stable Acute blood loss anemia likely from surgery Trend hemoglobin transfuse for hemoglobin less than 7 Coronary disease Chronic diastolic heart failure Recent TAVR Cardiology on board Stable Resume home cardiac meds Chronic conditions COPD Diabetes mellitus Hypertension GERD BPH Dementia Depression anxiety -Stable DVT prophylaxis: Subcu heparin Full code Objective - Vital Signs Vital signs: Vital Signs Temp 99.7 F H 01/28/24 08:00 Pulse 96 01/28/24 10:00 Resp 27 H 01/28/24 10:00 BP 170/65 01/28/24 10:00 Pulse Ox 96 01/28/24 10:00 FiO2 50 01/25/24 14:50 Intake & Output 01/27/24 01/28/24 01/28/24 18:59 06:59 18:59 Intake Total 1020 1460 440 Output Total 865 655 275 Balance 155 805 165 Weight 99.2 kg 95 kg Intake: IV 1000 1100 350 Piperacillin-Tazobactam 3 100 50 .375 gm In Sodium Chloride 0.9% 100 ml @ 25 mls/hr IVPB Q8HR [facility] Rx# :[id number] Sodium Chloride 0.9% 1, 900 1100 300 000 ml @ 100 mls/hr IV . Q10H [facility] Rx#:[id number] Tube Feeding 20 270 90 Other 90 Output: Drainage 380 280 100 Right Lower Abdomen 380 280 100 Urine 485 375 175 Other: Voiding Method Indwelling Catheter Indwelling Catheter - Labs CBC & Chem 7: 01/28/24 06:38 01/28/24 06:33 Labs: Abnormal Lab Results - Last 24 Hours (Table) 01/27/24 01/27/24 01/27/24 Range/Units 06:51 11:54 18:32 WBC (3.8-10.6) k/uL RBC (4.30-5.90) m/uL Hgb (13.0-17.5) gm/dL Hct (39.0-53.0) % RDW (11.5-15.5) % Neutrophils # (1.3-7.7) k/uL Neutrophils # (Manual) 17.00 H (1.3-7.7) k/uL Lymphocytes # (1.0-4.8) k/uL Lymphocytes # (Manual) 0.37 L (1.0-4.8) k/uL Monocytes # (Manual) 1.31 H (0-1.0) k/uL Chloride (98-107) mmol/L Carbon Dioxide (22-30) mmol/L BUN (9-20) mg/dL Creatinine (0.66-1.25) mg/dL Glucose (74-99) mg/dL POC Glucose (mg/dL) 182 H 178 H (70-110) mg/dL Calcium (8.4-10.2) mg/dL Magnesium (1.6-2.3) mg/dL Alkaline Phosphatase (38-126) U/L Total Protein (6.3-8.2) g/dL Albumin (3.5-5.0) g/dL 01/27/24 01/28/24 01/28/24 Range/Units 23:59 05:24 06:33 WBC (3.8-10.6) k/uL RBC (4.30-5.90) m/uL Hgb (13.0-17.5) gm/dL Hct (39.0-53.0) % RDW (11.5-15.5) % Neutrophils # (1.3-7.7) k/uL Neutrophils # (Manual) (1.3-7.7) k/uL Lymphocytes # (1.0-4.8) k/uL Lymphocytes # (Manual) (1.0-4.8) k/uL Monocytes # (Manual) (0-1.0) k/uL Chloride 115 H (98-107) mmol/L Carbon Dioxide 19 L (22-30) mmol/L BUN 27 H (9-20) mg/dL Creatinine 1.33 H (0.66-1.25) mg/dL Glucose 221 H (74-99) mg/dL POC Glucose (mg/dL) 207 H 225 H (70-110) mg/dL Calcium 7.1 L (8.4-10.2) mg/dL Magnesium 2.4 H (1.6-2.3) mg/dL Alkaline Phosphatase 129 H (38-126) U/L Total Protein 4.7 L (6.3-8.2) g/dL Albumin 2.0 L (3.5-5.0) g/dL 0309/24 Range/Units 06:38 WBC 14.9 H (3.8-10.6) k/uL RBC 3.81 L (4.30-5.90) m/uL Hgb 10.5 L (13.0-17.5) gm/dL Hct 33.5 L (39.0-53.0) % RDW 16.9 H (11.5-15.5) % Neutrophils # 13.1 H (1.3-7.7) k/uL Neutrophils # (Manual) (1.3-7.7) k/uL Lymphocytes # 0.6 L (1.0-4.8) k/uL Lymphocytes # (Manual) (1.0-4.8) k/uL Monocytes # (Manual) (0-1.0) k/uL Chloride (98-107) mmol/L Carbon Dioxide (22-30) mmol/L BUN (9-20) mg/dL Creatinine (0.66-1.25) mg/dL Glucose (74-99) mg/dL POC Glucose (mg/dL) (70-110) mg/dL Calcium (8.4-10.2) mg/dL Magnesium (1.6-2.3) mg/dL Alkaline Phosphatase (38-126) U/L Total Protein (6.3-8.2) g/dL Albumin (3.5-5.0) g/dL
[2024-01-28 11:08] LABS: Glucose,Whole Blood 259 mg/dL (70-110)
--- NOTE | 2024-01-28 11:38 | XR ---
EXAMINATION TYPE: XR chest 1V portable DATE OF EXAM: 01/28/2024 Comparison: 01/27/2024 Clinical History: 78-year-old male Aspiration Findings: NG tube courses below the diaphragm. Endovascular aortic valve replacement. Median sternotomy wires a nd post-CABG clips. Similar retrocardiac and left basilar opacity. Patchy right basilar opacity also persists Impression: 1. Similar small left pleural effusion with prominent left basilar and retrocardiac atelectasis and/o r consolidation. 2. Similar patchy opacity at the right base.
--- NOTE | 2024-01-28 11:55 | P.PN ---
Subjective Progress Note Date: 01/28/24 Principal diagnosis: Chronic cholecystitis, status post cholecystectomy and appendectomy 01/23/2024 I am seeing this patient in consultation today 01/24/2024 in the intensive care unit as he is status postoperative day #1 following a laparoscopic cholecystectomy converted to open surgery with open appendectomy. Patient is a 78-year-old white male with past medical history significant for recent transcatheter aortic valve replacement on November 30, previous CABG, diabetes mellitus, hyperlipidemia, hypertension, peripheral vascular disease, BPH, advanced dementia, and recent inpatient hospitalization 12/23/2023 through 01/02/2024 for acute cholecystitis status post CT-guided percutaneous cholecystostomy tube placement on 12/28/2023. Patient was initially discharged home with home health care, but somehow ended up at [facility] on the [place] for rehab. Patient sent into the emergency room on 01/22/2024 with intractable nausea and vomiting and abdominal pain. Patient is currently intubated to mechanical ventilator, and I am unable to provide elicit any information for this reason. An abdominal/pelvis CT taken on admission showed few scattered foci of gas in the upper abdomen which could be secondary to partial retraction of the percutaneous cholecystostomy tube with sideport open to the peritoneal cavity. There was cholecystitis involving the transverse colon to the rectum. Dilated appendix which was new from previous imaging on 12/25/2023. And a small left pleural effusion. Patient was taken to the operating room on 01/23/2024 was found to have cholecystitis with focal gangrenous changes and bile leak. Patient underwent a laparoscopic cholecystectomy which was converted to open procedure with open appendectomy. Postoperatively, the patient was left on the mechanical ventilator and transferred to the intensive care unit. Patient is currently in room 258, he is intubated, and on the mechanical ventilator. He is sedated on propofol which is infusing at 20 mcg/kg/min. He is synchronous with the mechanical ventilator. He wakes with tactile stimulus, but does not follow any commands. Postoperative chest x-ray shows endotracheal tube above the karly, and orogastric tube coursing below the diaphragm, and a small left pleural effusion. No other acute cardiopulmonary pathology noted. Postoperative ABG as a PaO2 greater than 400, pCO2 of 36, and pH of 7.35. This was done on ventilator settings including assist-control, respiratory rate 18, tidal volume 450, FiO2 100%, and PEEP of 5. FiO2 was sent weaned to 40%. I am told the patient had an EBL of approximately 350 mL and was given 1 L normal saline bolus intraoperatively. Blood pressure remains normotensive. Not requiring any vasopressors. Normal saline is infusing at 75 mL/h. Postoperative CBC is a WBC count of 17, hemoglobin stable at 11.8, hematocrit 37, platelets 263. Postoperative BMP includes a sodium 135, potassium 3.8, chloride 104, serum bicarb 21, BUN 21, creatinine 1.36, glucose 200. Lactic acid level 0.9. Patient does have a indwelling urinary catheter draining 40 to 50 mL of urine per hour. Urinalysis has small leukocyte Estrace and pyuria. Patient is empirically covered on Zosyn for his abdomen. He is afebrile. Prognosis is guarded. Patient is being monitored in the intensive care unit. Patient was reevaluated today on 01/25/2024, patient remains in the ICU, he is on assist-control rate of 18 tidal volume 450 FiO2 40% and PEEP of 5. ABG showed a pO2 of 100 pCO2 32 pH of 7.37. Overnight the patient was kept on Precedex, and he is on 0.4 mcg/kg/h. Patient is on IV fluid at 75 cc/h vital HP at 20 cc/h. Urine output is excellent about 30 to 50 cc/h. Patient is not agitated, he is not restless, seems to be calm, hence I am planning to place the patient on pressure support of 10 and CPAP, and if tolerated may consider weaning and ex tubating the patient. Chest x-ray showed mild pulmonary vascular congestion, and retrocardiac atelectasis, patient will be given a dose of Lasix, and his IV fluid was cut down to KVO WBC count today is 16.2 hemoglobin is 8.5 basic metabolic profile is normalHowever bicarb is 12 BUN is 25 creatinine 1.27 Patient was reevaluated today on 01/26/2024, patient was extubated yesterday, he tolerated extubation well, patient is now on Precedex at 0.6, patient is also on Dilaudid and Zosyn as well as Ativan added today. Patient gets agitated, he does have underlying dementia, and keeps trying to get out of bed. Hence we will continue the Precedex today, will add Ativan 0.5 mg IV push every 2 hours as needed. Patient remains on 2 L nasal cannula with O2 sats of 98%. His x-ray showed cardiomegaly and left basilar atelectasis Patient was reevaluated today on 01/27/2024, patient is doing fairly well except for his episodes of agitation, patient has severe underlying dementia, and takes a number of people to keep him calm, patient yesterday was on Precedex and Ativan, developed a bit of obtundation, and Precedex was discontinued today the patient is receiving Ativan as needed, nonetheless, patient continues to have significant agitation. WBC count is 18.7 hemoglobin is 11.3, basic metabolic profile is normal bicarb is 12 anion gap is 17 BUN is 27 creatinine 1.31. Chest x-ray from yesterday showed mostly left basilar atelectasis Reevaluate today on 01/28/2024, patient remains in the ICU, patient is kept in the ICU mostly because of his extreme agitation, and I do not believe the patient could be managed on the medical floor. Last night he was quite agitated, remains on Haldol and Ativan and Dilaudid. Today he seems to be [place], a nasogastric tube was placed in yesterday for nutritional support and now he is receiving Glucerna at 50 mL/h. IV fluid is running at 0.9 normal saline, patient still confused, gets agitated easily but seems to be calm today during my evaluation. WBC count is 14.9 hemoglobin 10.7 basic metabolic profile is normal renal profile noted, creatinine of 1.33 Objective - Vital Signs Vital signs: Vital Signs Temp 99.7 F H 01/28/24 08:00 Pulse 82 01/28/24 11:00 Resp 23 01/28/24 11:00 BP 154/80 01/28/24 11:00 Pulse Ox 97 01/28/24 11:00 FiO2 50 01/25/24 14:50 Intake & Output 01/27/24 01/28/24 01/28/24 18:59 06:59 18:59 Intake Total 1020 1460 305 Output Total 865 655 291 Balance 155 805 14 Weight 99.2 kg 95 kg Intake: IV 1000 1100 175 Piperacillin-Tazobactam 3 100 75 .375 gm In Sodium Chloride 0.9% 100 ml @ 25 mls/hr IVPB Q8HR [facility] Rx# :[id number] Sodium Chloride 0.9% 1, 900 1100 100 000 ml @ 100 mls/hr IV . Q10H [facility] Rx#:[id number] Tube Feeding 20 270 130 Other 90 Output: Drainage 380 280 100 Right Lower Abdomen 380 280 100 Urine 485 375 191 Other: Voiding Method Indwelling Catheter Indwelling Catheter Indwelling Catheter - Exam GENERAL EXAM: 78-year-old white male obese, calm, on nasal cannula. HEAD: Normocephalic and atraumatic EYES: Normal reaction of pupils, equal size. NOSE: Clear with pink turbinates. THROAT: No erythema or exudates. NECK: No masses, no JVD. CHEST: No chest wall deformity. LUNGS: Fine crackles at the bases. CVS: S1 and S2 normal with no audible murmur, regular rhythm. No extra heart sounds ABDOMEN: Postsurgical abdomen with lateral incisional dressing intact and dry. CENTRAL NERVOUS SYSTEM: Confused, but seems to be [place] today EXTREMITIES: There is no peripheral edema, clubbing, or cyanosis. Peripheral pulses are intact. HEENT: No rashes - Labs CBC & Chem 7: 01/28/24 06:38 01/28/24 06:33 Labs: Abnormal Lab Results - Last 24 Hours (Table) 01/27/24 01/27/24 01/27/24 Range/Units 11:54 18:32 23:59 WBC (3.8-10.6) k/uL RBC (4.30-5.90) m/uL Hgb (13.0-17.5) gm/dL Hct (39.0-53.0) % RDW (11.5-15.5) % Neutrophils # (1.3-7.7) k/uL Lymphocytes # (1.0-4.8) k/uL Chloride (98-107) mmol/L Carbon Dioxide (22-30) mmol/L BUN (9-20) mg/dL Creatinine (0.66-1.25) mg/dL Glucose (74-99) mg/dL POC Glucose (mg/dL) 182 H 178 H 207 H (70-110) mg/dL Calcium (8.4-10.2) mg/dL Magnesium (1.6-2.3) mg/dL Alkaline Phosphatase (38-126) U/L Total Protein (6.3-8.2) g/dL Albumin (3.5-5.0) g/dL 01/28/24 01/28/24 01/28/24 Range/Units 05:24 06:33 06:38 WBC 14.9 H (3.8-10.6) k/uL RBC 3.81 L (4.30-5.90) m/uL Hgb 10.5 L (13.0-17.5) gm/dL Hct 33.5 L (39.0-53.0) % RDW 16.9 H (11.5-15.5) % Neutrophils # 13.1 H (1.3-7.7) k/uL Lymphocytes # 0.6 L (1.0-4.8) k/uL Chloride 115 H (98-107) mmol/L Carbon Dioxide 19 L (22-30) mmol/L BUN 27 H (9-20) mg/dL Creatinine 1.33 H (0.66-1.25) mg/dL Glucose 221 H (74-99) mg/dL POC Glucose (mg/dL) 225 H (70-110) mg/dL Calcium 7.1 L (8.4-10.2) mg/dL Magnesium 2.4 H (1.6-2.3) mg/dL Alkaline Phosphatase 129 H (38-126) U/L Total Protein 4.7 L (6.3-8.2) g/dL Albumin 2.0 L (3.5-5.0) g/dL 01/28/24 Range/Units 11:06 WBC (3.8-10.6) k/uL RBC (4.30-5.90) m/uL Hgb (13.0-17.5) gm/dL Hct (39.0-53.0) % RDW (11.5-15.5) % Neutrophils # (1.3-7.7) k/uL Lymphocytes # (1.0-4.8) k/uL Chloride (98-107) mmol/L Carbon Dioxide (22-30) mmol/L BUN (9-20) mg/dL Creatinine (0.66-1.25) mg/dL Glucose (74-99) mg/dL POC Glucose (mg/dL) 259 H (70-110) mg/dL Calcium (8.4-10.2) mg/dL Magnesium (1.6-2.3) mg/dL Alkaline Phosphatase (38-126) U/L Total Protein (6.3-8.2) g/dL Albumin (3.5-5.0) g/dL Assessment and Plan Assessment: Impression: Chronic cholecystitis status post open cholecystectomy and appendectomy 01/23/2024. Patient was extubated on 01/25/2024 Advanced dementia Acute blood loss anemia expected as the outcome of surgery Chronic kidney disease stage III History of aortic stenosis and previous TAVR. History of coronary arteriosclerosis and previous CABG Chronic atrial fibrillation Dyslipidemia Type 2 diabetes History of BPH Benign essential hypertension Recommendation: Continue to monitor in the ICU Continue incentive spirometry. Continue Ativan and Haldol Continue soft restraints as the patient will try to pull out his nasogastric tube and his IV fluid continue supportive care measures, Continue IV fluid Continue GI and DVT prophylaxis. Comes next week the patient may have to be considered for placement Will continue to follow Time with Patient: Less than 30
--- NOTE | 2024-01-28 13:50 | P.PN ---
Subjective Progress Note Date: 01/28/24 Principal diagnosis: Patient seen and evaluated at bedside. No overnight issues, no complaints(dementia). No nausea or vomiting reported by nursing staff. Objective - Vital Signs Vital signs: Vital Signs Temp 98.6 F 01/28/24 12:00 Pulse 93 01/28/24 12:00 Resp 33 H 01/28/24 12:00 BP 127/50 01/28/24 12:00 Pulse Ox 93 L 01/28/24 12:00 FiO2 50 01/25/24 14:50 Intake & Output 01/27/24 01/28/24 01/28/24 18:59 06:59 18:59 Intake Total 1020 1460 510 Output Total 865 655 401 Balance 155 805 109 Weight 99.2 kg 95 kg Intake: IV 1000 1100 300 Piperacillin-Tazobactam 3 100 100 .375 gm In Sodium Chloride 0.9% 100 ml @ 25 mls/hr IVPB Q8HR [facility] Rx# :[id number] Sodium Chloride 0.9% 1, 900 1100 200 000 ml @ 100 mls/hr IV . Q10H [facility] Rx#:[id number] Tube Feeding 20 270 210 Other 90 Output: Drainage 380 280 120 Right Lower Abdomen 380 280 120 Urine 485 375 281 Other: Voiding Method Indwelling Catheter Indwelling Catheter Indwelling Catheter - Constitutional General appearance: Present: no acute distress - Respiratory Respiratory: negative: CTA, diminished, dullness - Cardiovascular Heart sounds: normal: S1, S2 - Gastrointestinal General gastrointestinal: Present: normal bowel sounds (abdomen soft, non tender, non distended no guarding or rebound tenderness. Incision and c/d/i) - Labs CBC & Chem 7: 01/28/24 06:38 01/28/24 06:33 Labs: Abnormal Lab Results - Last 24 Hours (Table) 01/27/24 01/27/24 01/28/24 Range/Units 18:32 23:59 05:24 WBC (3.8-10.6) k/uL RBC (4.30-5.90) m/uL Hgb (13.0-17.5) gm/dL Hct (39.0-53.0) % RDW (11.5-15.5) % Neutrophils # (1.3-7.7) k/uL Lymphocytes # (1.0-4.8) k/uL Chloride (98-107) mmol/L Carbon Dioxide (22-30) mmol/L BUN (9-20) mg/dL Creatinine (0.66-1.25) mg/dL Glucose (74-99) mg/dL POC Glucose (mg/dL) 178 H 207 H 225 H (70-110) mg/dL Calcium (8.4-10.2) mg/dL Magnesium (1.6-2.3) mg/dL Alkaline Phosphatase (38-126) U/L Total Protein (6.3-8.2) g/dL Albumin (3.5-5.0) g/dL 01/28/24 01/28/24 01/28/24 Range/Units 06:33 06:38 11:06 WBC 14.9 H (3.8-10.6) k/uL RBC 3.81 L (4.30-5.90) m/uL Hgb 10.5 L (13.0-17.5) gm/dL Hct 33.5 L (39.0-53.0) % RDW 16.9 H (11.5-15.5) % Neutrophils # 13.1 H (1.3-7.7) k/uL Lymphocytes # 0.6 L (1.0-4.8) k/uL Chloride 115 H (98-107) mmol/L Carbon Dioxide 19 L (22-30) mmol/L BUN 27 H (9-20) mg/dL Creatinine 1.33 H (0.66-1.25) mg/dL Glucose 221 H (74-99) mg/dL POC Glucose (mg/dL) 259 H (70-110) mg/dL Calcium 7.1 L (8.4-10.2) mg/dL Magnesium 2.4 H (1.6-2.3) mg/dL Alkaline Phosphatase 129 H (38-126) U/L Total Protein 4.7 L (6.3-8.2) g/dL Albumin 2.0 L (3.5-5.0) g/dL Microbiology - Last 24 Hours (Table) 01/22/24 22:17 Blood Culture - Final Blood Assessment and Plan Assessment: POD #5 open galo/appy continue tube feeds incentive spirometer use pain control
[2024-01-28] MEDS: ACETAMINOPHEN TAB 500 MG TAB NG-TUBE PRN (16:24)
[2024-01-28 17:16] LABS: Glucose,Whole Blood 279 mg/dL (70-110)
[2024-01-28 20:04] LABS: Glucose,Whole Blood 283 mg/dL (70-110)
--- NOTE | 2024-01-28 22:10 | XR ---
EXAM: XR chest 1V portable CLINICAL INDICATION:Male, 78 years old with history of Check NG placement; [facility] COMPARISON: Prior chest radiographs the most recent earlier today 11:01 AM TECHNIQUE: Chest single view. FINDINGS: Study is limited in scope, centered over the left upper abdomen for tube placement. There is some limitation by extrinsic densities, including a patterned object which could be a warmin g blanket. NG tube is present, extends into the left abdomen with sidehole and tip over the proximal stomach. EKG leads overlie the chest. Drainage tube in the right upper quadrant with multiple surgica l clips likely from cholecystectomy. Postoperative changes in the chest with TAVR, sternotomy wires, mediastinal clips suggesting CABG. The heart is enlarged. Stable pleural/parenchyma opacities in left lung base likely effusion and atel ectasis. Similar mild right basilar opacity. No pneumothorax of the visualized chest. No acute bony a bnormalities are seen. IMPRESSION: 1. NG tube tip over the proximal stomach. Recommend a few centimeters of additional advancement for more optimal positioning. 2. Stable cardiopulmonary status.
[2024-01-28 23:22] LABS: Glucose,Whole Blood 283 mg/dL (70-110)
[2024-01-29 05:22] LABS: Anisocytosis Slight; Basophils # (A) 0.1 k/uL (0-0.2); Basophils % (A) 1 %; Eosinophils # (A) 0.1 k/uL (0-0.7); Eosinophils % (A) 1 %; HGB 10.3 gm/dL (13.0-17.5); Hypochromasia Marked; Lymphocytes # (A) 0.7 k/uL (1.0-4.8); Lymphocytes % (A) 5 %; MCH 27.3 pg (25.0-35.0); MCHC 31.3 g/dL (31.0-37.0); MCV 87.3 fL (80.0-100.0); Mean Platelet Volume 7.6; Monocytes # (A) 1.1 k/uL (0-1.0); Monocytes % (A) 9 %; Neutrophils # (A) 10.2 k/uL (1.3-7.7); Neutrophils % (A) 83 %; Platelet Count 234 k/uL (150-450); RBC 3.78 m/uL (4.30-5.90); RDW 16.9 % (11.5-15.5); WBC 12.3 k/uL (3.8-10.6)
[2024-01-29 05:45] LABS: African American GFR (CKD) 77 (>60 ml/min/1.73 sqM); Anion Gap 5 mmol/L; Blood Urea Nitrogen 29 mg/dL (9-20); Calcium 7.3 mg/dL (8.4-10.2); Carbon Dioxide 20 mmol/L (22-30); Chloride 120 mmol/L (98-107); Glucose 319 mg/dL (74-99); Non-African American GFR(CKD) 66 (>60 ml/min/1.73 sqM); Sodium 145 mmol/L (137-145)
[2024-01-29 05:48] LABS: Magnesium 2.6 mg/dL (1.6-2.3); Potassium 4.7 mmol/L (3.5-5.1)
[2024-01-29 06:25] LABS: Glucose,Whole Blood 406 mg/dL (70-110)
[2024-01-29] MEDS: QUEtiapine 25 MG TAB PO SCH (09:07)
[2024-01-29] MEDS: DEXTROSE 5% IN WATER 1,000 ML IV SCH (09:08)
[2024-01-29] MEDS: FUROSEMIDE 10 MG/ML 2 ML VIAL IV ONE (09:36)
[2024-01-29] MEDS: INSULIN DETEMIR (LEVEMIR) 100 UNIT/ML SYR SQ SCH (09:45)
--- NOTE | 2024-01-29 10:23 | XR ---
EXAMINATION TYPE: XR chest 1V portable DATE OF EXAM: 01/29/2024 Comparison: 01/28/2024 Clinical History: 78-year-old male shortness of breath, dyspnea, ng tube placement Findings: NG tube courses below the diaphragm. Median sternotomy wires. Prosthetic endovascular aortic valve re placement. Some low lung volumes. Heart mildly enlarged. Underlying left basilar retrocardiac opacity . Impression: 1. NG tube courses below the diaphragm. 2. Hypoventilatory changes with ongoing left basilar retrocardiac opacity.
--- NOTE | 2024-01-29 10:32 | P.PN ---
Subjective Progress Note Date: 01/29/24 Pt still having agitation issues, requiring haldol PRN. Having issues with fungal infection of skin surrounding scrotum Gen: In moderate distress from pain, non-toxic HEENT: normocephalic, atraumatic, hearing acuity is intant, mucous membranes moist CVS: perfusing all extremities well, no pitting edema, Respiratory: symmetric chest expansion, no accessory muscle use, GI: soft, NTTP, ND, : no suprapubic tenderness, no CVA tenderness MSK/Derm: no rashes, cyanosis Neuro: CN II-XII intact, no motor weakness, Hospital Course: 78 year old M with PMH of COPD, DM, HTN, GERD, BPH, CAD with CABG, Dementia, Depression and anxiety, diastolic CHF, h/o TAVR presented to the ED for RLQ abdominal pain. Recently hospitalized from 12/23-01/02 for cholecystitis, NSTEMI and SAMANTHA. Found to be high risk for surgery, underwent cholecystostomy, discharged on PO antibiotics. He presents back to the hospital for RLQ pain that started on Tuesday. In the ED he underwent extensive evaluation. BP 127/75 HR 87 T 98.7F RR 18 94% on RA. CBC and CMP significant for WBC 18.3, Hg 12.8, bicarb 19, BUN 22, Cr 1.32, glu 133, alk phos 135, alb 3.4. Lactic acid 3.1. CT AP showed foci of gas in the upper abdomen, retraction of the percutaneous cholecystostomy tube, colitis of the transverse colon to the rectum and dilated appedix concerning for appendicitis. Patient admitted to the medicine service. Patient had a appendectomy and cholecystectomy done by general surgery. After surgery patient remained intubated and was transferred to the ICU. He has since been extubated, but remained on precedex for agitation. Assessment and plan Sepsis on admission Appendicitis Bile Leak - Chemical Peritonitis Likely source is appendicitis and bile leak from recent cholecystectomy Status post cholecystectomy and appendectomy done on this admission Resume IV Zosyn Patient's WBC is trending down, today 14.9; Hgb stable Pain control with IV Tylenol PRN, IV dilaudid PRN, morphine PRN Agitation control with haldol/ativan PRN, precedex gtt weaned off as of 01/26 Protein Calorie Malnutrition, moderate Continue TFs [place] consult is in Ventilatory dependent respiratory failure after surgery [employer] to manage vent On nasal cannula Acute kidney injury Monitor BMP Renal function is stable Acute blood loss anemia likely from surgery Trend hemoglobin transfuse for hemoglobin less than 7 Coronary disease Chronic diastolic heart failure Recent TAVR Cardiology on board Stable Resume home cardiac meds Chronic conditions COPD Diabetes mellitus Hypertension GERD BPH Dementia Depression anxiety -Stable DVT prophylaxis: Subcu heparin Full code Objective - Vital Signs Vital signs: Vital Signs Temp 98.1 F 01/29/24 07:59 Pulse 89 01/29/24 09:00 Resp 31 H 01/29/24 09:00 BP 172/57 01/29/24 09:00 Pulse Ox 95 01/29/24 09:00 FiO2 50 01/25/24 14:50 Intake & Output 01/28/24 01/29/24 01/29/24 17:59 06:59 18:59 Intake Total 670 Output Total 345 Balance 325 Weight Intake: IV 420 Dextrose 5% in Water 1, 100 000 ml @ 100 mls/hr IV . Q10H [facility] Rx#:[id number] Invasive Line 3 20 Piperacillin-Tazobactam 3 100 .375 gm In Sodium Chloride 0.9% 100 ml @ 25 mls/hr IVPB Q8HR [facility] Rx# :[id number] Sodium Chloride 0.9% 1, 200 000 ml @ 100 mls/hr IV . Q10H [facility] Rx#:[id number] Tube Feeding 220 Other 30 Output: Drainage 180 Right Lower Abdomen 180 Urine 165 Other: Voiding Method Indwelling Catheter # Bowel Movements - Labs CBC & Chem 7: 01/29/24 04:47 01/29/24 04:47 Labs: Abnormal Lab Results - Last 24 Hours (Table) 01/28/24 01/28/24 01/28/24 Range/Units 11:06 17:14 20:01 WBC (3.8-10.6) k/uL RBC (4.30-5.90) m/uL Hgb (13.0-17.5) gm/dL Hct (39.0-53.0) % RDW (11.5-15.5) % Neutrophils # (1.3-7.7) k/uL Lymphocytes # (1.0-4.8) k/uL Monocytes # (0-1.0) k/uL Chloride (98-107) mmol/L Carbon Dioxide (22-30) mmol/L BUN (9-20) mg/dL Glucose (74-99) mg/dL POC Glucose (mg/dL) 259 H 279 H 283 H (70-110) mg/dL Calcium (8.4-10.2) mg/dL Magnesium (1.6-2.3) mg/dL 01/28/24 01/29/24 01/29/24 Range/Units 23:21 04:47 04:47 WBC 12.3 H (3.8-10.6) k/uL RBC 3.78 L (4.30-5.90) m/uL Hgb 10.3 L (13.0-17.5) gm/dL Hct 33.0 L (39.0-53.0) % RDW 16.9 H (11.5-15.5) % Neutrophils # 10.2 H (1.3-7.7) k/uL Lymphocytes # 0.7 L (1.0-4.8) k/uL Monocytes # 1.1 H (0-1.0) k/uL Chloride 120 H (98-107) mmol/L Carbon Dioxide 20 L (22-30) mmol/L BUN 29 H (9-20) mg/dL Glucose 319 H (74-99) mg/dL POC Glucose (mg/dL) 283 H (70-110) mg/dL Calcium 7.3 L (8.4-10.2) mg/dL Magnesium 2.6 H (1.6-2.3) mg/dL 01/29/24 Range/Units 06:24 WBC (3.8-10.6) k/uL RBC (4.30-5.90) m/uL Hgb (13.0-17.5) gm/dL Hct (39.0-53.0) % RDW (11.5-15.5) % Neutrophils # (1.3-7.7) k/uL Lymphocytes # (1.0-4.8) k/uL Monocytes # (0-1.0) k/uL Chloride (98-107) mmol/L Carbon Dioxide (22-30) mmol/L BUN (9-20) mg/dL Glucose (74-99) mg/dL POC Glucose (mg/dL) 406 H (70-110) mg/dL Calcium (8.4-10.2) mg/dL Magnesium (1.6-2.3) mg/dL Microbiology - Last 24 Hours (Table) 01/23/24 13:55 Blood Culture - Final Blood 01/22/24 22:17 Blood Culture - Final Blood
--- NOTE | 2024-01-29 11:15 | P.PN ---
Progress Note - Text Progress Note Date: 01/29/24 I spent 30 minutes with patient's daughters Medina and Sagrario on the phone today in order to have an advance care planning session in light of patient serious medical conditions including sepsis, encephalopathy, heart failure, COPD, chronic kidney disease. The main discussion surrounded patient's encephalopathy with underlying dementia resulting in agitation issues, CODE STATUS and overall prognosis. As a conclusion to our discussion,: Medina will discuss patient's CODE STATUS and notified nursing if any changes need to be made. In the meantime, our mutual goal is to decrease patient's IV sedative use including Haldol, Dilaudid is much as able. In light of this, patient was started on Seroquel 25 mg twice daily by pulmonology, I decreased the patient's Dilaudid from every 2 as needed to every 6 as needed, Tylenol as needed was added, [place] will be increased to 10/325 as needed, and frequency increased to every 4.
[2024-01-29 11:23] LABS: Glucose,Whole Blood 340 mg/dL (70-110)
--- NOTE | 2024-01-29 12:12 | P.PN ---
Subjective Progress Note Date: 01/29/24 Principal diagnosis: Chronic cholecystitis, status post cholecystectomy and appendectomy 01/23/2024 I am seeing this patient in consultation today 01/24/2024 in the intensive care unit as he is status postoperative day #1 following a laparoscopic cholecystectomy converted to open surgery with open appendectomy. Patient is a 78-year-old white male with past medical history significant for recent transcatheter aortic valve replacement on November 30, previous CABG, diabetes mellitus, hyperlipidemia, hypertension, peripheral vascular disease, BPH, advanced dementia, and recent inpatient hospitalization 12/23/2023 through 01/02/2024 for acute cholecystitis status post CT-guided percutaneous cholecystostomy tube placement on 12/28/2023. Patient was initially discharged home with home health care, but somehow ended up at [facility] on the [place] for rehab. Patient sent into the emergency room on 01/22/2024 with intractable nausea and vomiting and abdominal pain. Patient is currently intubated to mechanical ventilator, and I am unable to provide elicit any information for this reason. An abdominal/pelvis CT taken on admission showed few scattered foci of gas in the upper abdomen which could be secondary to partial retraction of the percutaneous cholecystostomy tube with sideport open to the peritoneal cavity. There was cholecystitis involving the transverse colon to the rectum. Dilated appendix which was new from previous imaging on 12/25/2023. And a small left pleural effusion. Patient was taken to the operating room on 01/23/2024 was found to have cholecystitis with focal gangrenous changes and bile leak. Patient underwent a laparoscopic cholecystectomy which was converted to open procedure with open appendectomy. Postoperatively, the patient was left on the mechanical ventilator and transferred to the intensive care unit. Patient is currently in room 258, he is intubated, and on the mechanical ventilator. He is sedated on propofol which is infusing at 20 mcg/kg/min. He is synchronous with the mechanical ventilator. He wakes with tactile stimulus, but does not follow any commands. Postoperative chest x-ray shows endotracheal tube above the karly, and orogastric tube coursing below the diaphragm, and a small left pleural effusion. No other acute cardiopulmonary pathology noted. Postoperative ABG as a PaO2 greater than 400, pCO2 of 36, and pH of 7.35. This was done on ventilator settings including assist-control, respiratory rate 18, tidal volume 450, FiO2 100%, and PEEP of 5. FiO2 was sent weaned to 40%. I am told the patient had an EBL of approximately 350 mL and was given 1 L normal saline bolus intraoperatively. Blood pressure remains normotensive. Not requiring any vasopressors. Normal saline is infusing at 75 mL/h. Postoperative CBC is a WBC count of 17, hemoglobin stable at 11.8, hematocrit 37, platelets 263. Postoperative BMP includes a sodium 135, potassium 3.8, chloride 104, serum bicarb 21, BUN 21, creatinine 1.36, glucose 200. Lactic acid level 0.9. Patient does have a indwelling urinary catheter draining 40 to 50 mL of urine per hour. Urinalysis has small leukocyte Estrace and pyuria. Patient is empirically covered on Zosyn for his abdomen. He is afebrile. Prognosis is guarded. Patient is being monitored in the intensive care unit. Patient was reevaluated today on 01/25/2024, patient remains in the ICU, he is on assist-control rate of 18 tidal volume 450 FiO2 40% and PEEP of 5. ABG showed a pO2 of 100 pCO2 32 pH of 7.37. Overnight the patient was kept on Precedex, and he is on 0.4 mcg/kg/h. Patient is on IV fluid at 75 cc/h vital HP at 20 cc/h. Urine output is excellent about 30 to 50 cc/h. Patient is not agitated, he is not restless, seems to be calm, hence I am planning to place the patient on pressure support of 10 and CPAP, and if tolerated may consider weaning and ex tubating the patient. Chest x-ray showed mild pulmonary vascular congestion, and retrocardiac atelectasis, patient will be given a dose of Lasix, and his IV fluid was cut down to KVO WBC count today is 16.2 hemoglobin is 8.5 basic metabolic profile is normalHowever bicarb is 12 BUN is 25 creatinine 1.27 Patient was reevaluated today on 01/26/2024, patient was extubated yesterday, he tolerated extubation well, patient is now on Precedex at 0.6, patient is also on Dilaudid and Zosyn as well as Ativan added today. Patient gets agitated, he does have underlying dementia, and keeps trying to get out of bed. Hence we will continue the Precedex today, will add Ativan 0.5 mg IV push every 2 hours as needed. Patient remains on 2 L nasal cannula with O2 sats of 98%. His x-ray showed cardiomegaly and left basilar atelectasis Patient was reevaluated today on 01/27/2024, patient is doing fairly well except for his episodes of agitation, patient has severe underlying dementia, and takes a number of people to keep him calm, patient yesterday was on Precedex and Ativan, developed a bit of obtundation, and Precedex was discontinued today the patient is receiving Ativan as needed, nonetheless, patient continues to have significant agitation. WBC count is 18.7 hemoglobin is 11.3, basic metabolic profile is normal bicarb is 12 anion gap is 17 BUN is 27 creatinine 1.31. Chest x-ray from yesterday showed mostly left basilar atelectasis Reevaluate today on 01/28/2024, patient remains in the ICU, patient is kept in the ICU mostly because of his extreme agitation, and I do not believe the patient could be managed on the medical floor. Last night he was quite agitated, remains on Haldol and Ativan and Dilaudid. Today he seems to be Colmer, a nasogastric tube was placed in yesterday for nutritional support and now he is receiving Glucerna at 50 mL/h. IV fluid is running at 0.9 normal saline, patient still confused, gets agitated easily but seems to be calm today during my evaluation. WBC count is 14.9 hemoglobin 10.7 basic metabolic profile is normal renal profile noted, creatinine of 1.33 Patient was reevaluated today on 2023, patient remains in the ICU, patient had a temp of 101.6 last night, continues to have intermittent episodes of agitations requiring Haldol and Ativan, today we added Seroquel 25 mg twice daily to be given via nasogastric tube. Patient remains on enteral feeding Glucerna at 55 mL/h. Patient is still receiving IV fluid at 0.9 normal saline, 100 cc/h, urine output is marginal, hence I am recommending Lasix to be given. Blood sugar is high today above 400, patient will be started on Levemir insulin at 20 units/day and considering his sodium seems to be on the rise, I am recommending changing his IV fluid to D5W at 100 cc/h. Patient remains on Zosyn, the main issue with this patient seems to be issues related to his agitation and profound dementia. WBC count is 12.3 hemoglobin 10.3 basic metabolic profile showed sodium of 145 chloride 120 BUN is 29 creatinine 1.08, patient remains on sliding scale insulin and now he is on Levemir 20 units daily Objective - Vital Signs Vital signs: Vital Signs Temp 99.3 F 01/29/24 11:56 Pulse 84 01/29/24 12:00 Resp 35 H 01/29/24 12:00 BP 125/58 01/29/24 12:00 Pulse Ox 97 01/29/24 12:00 FiO2 50 01/25/24 14:50 Intake & Output 01/28/24 01/29/24 01/29/24 17:59 06:59 18:59 Intake Total 1145 Output Total 770 Balance 375 Weight Intake: IV 730 Dextrose 5% in Water 1, 400 000 ml @ 100 mls/hr IV . Q10H MELINA Rx#:[id number] Invasive Line 3 30 Piperacillin-Tazobactam 3 100 .375 gm In Sodium Chloride 0.9% 100 ml @ 25 mls/hr IVPB Q8HR MELINA Rx# :[id number] Sodium Chloride 0.9% 1, 200 000 ml @ 100 mls/hr IV . Q10H MELINA Rx#:[id number] Tube Feeding 385 Other 30 Output: Drainage 305 Right Lower Abdomen 305 Urine 465 Stool 0 Other: Voiding Method Indwelling Catheter # Bowel Movements 0 - Exam GENERAL EXAM: 78-year-old white male obese, calm, on nasal cannula. Liters per minute O2 saturation 97% HEAD: Normocephalic and atraumatic EYES: Normal reaction of pupils, equal size. NOSE: Clear with pink turbinates. Nasogastric tube is patent and noted. THROAT: No erythema or exudates. NECK: No masses, no JVD. CHEST: No chest wall deformity. LUNGS: Fine crackles at the bases. CVS: S1 and S2 normal with no audible murmur, regular rhythm. No extra heart sounds ABDOMEN: Postsurgical abdomen with lateral incisional dressing intact and dry. CENTRAL NERVOUS SYSTEM: Confused, gets agitated easily. EXTREMITIES: There is no peripheral edema, clubbing, or cyanosis. Peripheral pulses are intact. Chronic venous stasis changes noted lower extremity HEENT: No rashes - Labs CBC & Chem 7: 01/29/24 04:47 01/29/24 04:47 Labs: Abnormal Lab Results - Last 24 Hours (Table) 01/28/24 01/28/24 01/28/24 Range/Units 11:06 17:14 20:01 WBC (3.8-10.6) k/uL RBC (4.30-5.90) m/uL Hgb (13.0-17.5) gm/dL Hct (39.0-53.0) % RDW (11.5-15.5) % Neutrophils # (1.3-7.7) k/uL Lymphocytes # (1.0-4.8) k/uL Monocytes # (0-1.0) k/uL Chloride (98-107) mmol/L Carbon Dioxide (22-30) mmol/L BUN (9-20) mg/dL Glucose (74-99) mg/dL POC Glucose (mg/dL) 259 H 279 H 283 H (70-110) mg/dL Calcium (8.4-10.2) mg/dL Magnesium (1.6-2.3) mg/dL 01/28/24 01/29/24 01/29/24 Range/Units 23:21 04:47 04:47 WBC 12.3 H (3.8-10.6) k/uL RBC 3.78 L (4.30-5.90) m/uL Hgb 10.3 L (13.0-17.5) gm/dL Hct 33.0 L (39.0-53.0) % RDW 16.9 H (11.5-15.5) % Neutrophils # 10.2 H (1.3-7.7) k/uL Lymphocytes # 0.7 L (1.0-4.8) k/uL Monocytes # 1.1 H (0-1.0) k/uL Chloride 120 H (98-107) mmol/L Carbon Dioxide 20 L (22-30) mmol/L BUN 29 H (9-20) mg/dL Glucose 319 H (74-99) mg/dL POC Glucose (mg/dL) 283 H (70-110) mg/dL Calcium 7.3 L (8.4-10.2) mg/dL Magnesium 2.6 H (1.6-2.3) mg/dL 01/29/24 01/29/24 Range/Units 06:24 11:22 WBC (3.8-10.6) k/uL RBC (4.30-5.90) m/uL Hgb (13.0-17.5) gm/dL Hct (39.0-53.0) % RDW (11.5-15.5) % Neutrophils # (1.3-7.7) k/uL Lymphocytes # (1.0-4.8) k/uL Monocytes # (0-1.0) k/uL Chloride (98-107) mmol/L Carbon Dioxide (22-30) mmol/L BUN (9-20) mg/dL Glucose (74-99) mg/dL POC Glucose (mg/dL) 406 H 340 H (70-110) mg/dL Calcium (8.4-10.2) mg/dL Magnesium (1.6-2.3) mg/dL Microbiology - Last 24 Hours (Table) 01/23/24 13:55 Blood Culture - Final Blood 01/22/24 22:17 Blood Culture - Final Blood Assessment and Plan Assessment: Impression: Chronic cholecystitis status post open cholecystectomy and appendectomy 01/23/2024. Patient was extubated on 01/25/2024 Advanced dementia Acute blood loss anemia expected as the outcome of surgery Chronic kidney disease stage III History of aortic stenosis and previous TAVR. History of coronary arteriosclerosis and previous CABG Chronic atrial fibrillation Dyslipidemia Type 2 diabetes History of BPH Benign essential hypertension Recommendation: Continue to monitor in the ICU, mostly because of his agitation, could not be managed on the floor. Patient is requiring frequent sedation, and soft restra ints. Continue nutritional support/enteral feeding via nasogastric tube Added Seroquel 25 mg twice daily via nasogastric tube Continue incentive spirometry. Continue Ativan and Haldol Continue soft restraints Continue bedside sitter. continue supportive care measures, Continue IV fluid To monitor sugars and address accordingly Continue GI and DVT prophylaxis. Continue to follow Time with Patient: Less than 30
--- NOTE | 2024-01-29 13:20 | P.PN ---
Subjective Progress Note Date: 01/29/24 Principal diagnosis: Cholecystitis with bile leak Patient remains in the ICU. Unfortunately he remains confused as well. Leukocytosis improved. JUNE drain putting out significant volume of serous fluid. Patient did get Lasix today. Tolerating tube feeds at goal. Objective - Vital Signs Vital signs: Vital Signs Temp 99.3 F 01/29/24 11:56 Pulse 84 01/29/24 12:00 Resp 35 H 01/29/24 12:00 BP 125/58 01/29/24 12:00 Pulse Ox 97 01/29/24 12:00 FiO2 50 01/25/24 14:50 Intake & Output 01/28/24 01/29/24 01/29/24 17:59 06:59 18:59 Intake Total 1340 Output Total 770 Balance 570 Weight Intake: IV 830 Dextrose 5% in Water 1, 500 000 ml @ 100 mls/hr IV . Q10H MELINA Rx#:[id number] Invasive Line 3 30 Piperacillin-Tazobactam 3 100 .375 gm In Sodium Chloride 0.9% 100 ml @ 25 mls/hr IVPB Q8HR MELINA Rx# :[id number] Sodium Chloride 0.9% 1, 200 000 ml @ 100 mls/hr IV . Q10H MELINA Rx#:[id number] Tube Feeding 440 Other 70 Output: Drainage 305 Right Lower Abdomen 305 Urine 465 Other: Voiding Method Indwelling Catheter # Bowel Movements 1 - Exam Abdomen: Soft, nondistended, incision clean and dry, some abdominal wall edema - Labs CBC & Chem 7: 01/29/24 04:47 01/29/24 04:47 Labs: Abnormal Lab Results - Last 24 Hours (Table) 01/28/24 01/28/24 01/28/24 Range/Units 17:14 20:01 23:21 WBC (3.8-10.6) k/uL RBC (4.30-5.90) m/uL Hgb (13.0-17.5) gm/dL Hct (39.0-53.0) % RDW (11.5-15.5) % Neutrophils # (1.3-7.7) k/uL Lymphocytes # (1.0-4.8) k/uL Monocytes # (0-1.0) k/uL Chloride (98-107) mmol/L Carbon Dioxide (22-30) mmol/L BUN (9-20) mg/dL Glucose (74-99) mg/dL POC Glucose (mg/dL) 279 H 283 H 283 H (70-110) mg/dL Calcium (8.4-10.2) mg/dL Magnesium (1.6-2.3) mg/dL 01/29/24 01/29/24 01/29/24 Range/Units 04:47 04:47 06:24 WBC 12.3 H (3.8-10.6) k/uL RBC 3.78 L (4.30-5.90) m/uL Hgb 10.3 L (13.0-17.5) gm/dL Hct 33.0 L (39.0-53.0) % RDW 16.9 H (11.5-15.5) % Neutrophils # 10.2 H (1.3-7.7) k/uL Lymphocytes # 0.7 L (1.0-4.8) k/uL Monocytes # 1.1 H (0-1.0) k/uL Chloride 120 H (98-107) mmol/L Carbon Dioxide 20 L (22-30) mmol/L BUN 29 H (9-20) mg/dL Glucose 319 H (74-99) mg/dL POC Glucose (mg/dL) 406 H (70-110) mg/dL Calcium 7.3 L (8.4-10.2) mg/dL Magnesium 2.6 H (1.6-2.3) mg/dL 01/29/24 Range/Units 11:22 WBC (3.8-10.6) k/uL RBC (4.30-5.90) m/uL Hgb (13.0-17.5) gm/dL Hct (39.0-53.0) % RDW (11.5-15.5) % Neutrophils # (1.3-7.7) k/uL Lymphocytes # (1.0-4.8) k/uL Monocytes # (0-1.0) k/uL Chloride (98-107) mmol/L Carbon Dioxide (22-30) mmol/L BUN (9-20) mg/dL Glucose (74-99) mg/dL POC Glucose (mg/dL) 340 H (70-110) mg/dL Calcium (8.4-10.2) mg/dL Magnesium (1.6-2.3) mg/dL Microbiology - Last 24 Hours (Table) 01/23/24 13:55 Blood Culture - Final Blood 01/22/24 22:17 Blood Culture - Final Blood Assessment and Plan (1) Cholecystitis Narrative/Plan: Surgically patient seems to be doing fairly well. Unfortunately patient remains confused after recent general anesthesia. Third spacing significantly. Increased drain output thought to be related to ascites from third spacing. Continue tube feeds at goal. Will follow. Current Visit: Yes Status: Acute Code(s): K81.9 - CHOLECYSTITIS, UNSPECIFIED SNOMED Code(s): 14587012
[2024-01-29 17:03] LABS: ABG Base Excess -1.1 mmol/L; ABG HCO3 22 mmol/L (21-25); ABG PCO2 27 mmHg (35-45); ABG PH 7.52 (7.35-7.45); ABG TCO2 23 mmol/L (19-24); Allen Test Performed? Yes
[2024-01-29] MEDS: HYDROcodone/APAP 10-325MG 1 EACH TAB PO PRN (17:14)
[2024-01-29] MEDS: HYDROmorphone 1 MG/ML 1 ML SYRINGE IVP PRN (17:14)
[2024-01-29 17:19] LABS: ABG Oxygen Saturation 93.5 % (94-97); ABG PO2 57 mmHg (83-108)
[2024-01-29 17:24] LABS: Glucose,Whole Blood 305 mg/dL (70-110)
[2024-01-29] MEDS: FUROSEMIDE 10 MG/ML 2 ML VIAL IV STA (18:09)
--- NOTE | 2024-01-29 18:10 | XR ---
EXAMINATION TYPE: XR chest 1V portable DATE OF EXAM: 01/29/2024 Comparison: Earlier today Clinical History: 78-year-old male hypoxia Findings: Median sternotomy wires are redemonstrated. There is endovascular aortic valve replacement noted. Pos t-CABG clips. Low lung volumes. NG tube in place. Heart mildly enlarged. Focal retrocardiac and left basilar opacities with small effusion persist. Mild patchy density at the right base is also similar. Impression: Hypoventilatory changes with ongoing small left effusion with adjacent left basilar atelectasis and/o r consolidation. Mild patchy opacity at the right base is also redemonstrated.
[2024-01-29] MEDS: FUROSEMIDE 10 MG/ML 4 ML VIAL IV STA (18:18)
--- NOTE | 2024-01-29 19:59 | US ---
EXAMINATION TYPE: US venous doppler duplex LE BI DATE OF EXAM: 01/29/2024 6:17 PM COMPARISON: NONE CLINICAL INDICATION: Male, 78 years old with history of r/o DVT, Dyspnea; SIDE PERFORMED: Bilateral TECHNIQUE: The lower extremity deep venous system is examined utilizing real time linear array sonog rogelio with graded compression, doppler sonography and color-flow sonography. VESSELS IMAGED: Common Femoral Vein Deep Femoral Vein Greater Saphenous Vein * Femoral Vein Popliteal Vein Small Saphenous Vein * Proximal Calf Veins (* superficial vessels) Right Leg: Negative for DVT Left Leg: Negative for DVT IMPRESSION: No evidence of DVT in the bilateral lower extremities.
[2024-01-29 21:43] LABS: ALT 15 U/L (4-49); AST 34 U/L (17-59)
--- NOTE | 2024-01-29 22:34 | CT ---
EXAMINATION TYPE: CT chest angio for PE CT DLP: 770.2 mGycm, Automated exposure control for dose reduction was used. DATE OF EXAM: 01/29/2024 7:21 PM COMPARISON: Portable chest x-ray today 5:21 PM, and before CLINICAL INDICATION:Male, 78 years old with history of dyspnea; susannah TECHNIQUE/CONTRAST: CTA scan of the thorax is performed with IV Contrast, patient injected with 100 ml mL of Isovue 370, MIP images are created and reviewed these are created on a separate workstation.. FINDINGS: There is adequate contrast bolus and timing. Examination is degraded by motion and streak artifacts. PULMONARY ARTERIES: There is no evidence for a central filling defect within the pulmonary vasculatur e to suggest acute central or saddle pulmonary embolism. Limited evaluation of the segmental and subs egmental branches, without clear evidence of embolus seen. Pulmonary trunk is borderline prominent me asuring just over 3 cm; this can be seen with early pulmonary hypertension. Line HEART: Heart size up per normal.Moderate coronary artery calcification and/or stents. No appreciable pericardial effusion . AORTA: Status post TAVR. Moderate atherosclerotic calcification. No evidence of aneurysm or dissecti on.. Ascending aorta is ectatic at 3.7 CM, descending is 2.6 CM. LOWER NECK: Visualized thyroid is unremarkable.. MEDIASTINUM: No enlarged by CT criteria lymph nodes. Mildly prominent hilar soft tissues may reflect reactive adenopathy. SOFT TISSUES/LYMPH NODES: Changes of mild/moderate gynecomastia. No enlarged axillary nodes. LUNGS/ PLEURA: Moderate left and mild to moderate right pleural effusions. Adjacent lung opacities ar e present, with partial collapse of the right lower lobe and near complete collapse of the left lower lobe. Aerated lungs are unremarkable as seen, but assessment is limited by motion blurring. No visua lized pneumothorax. AIRWAY: Central airways are patent. MUSCULOSKELETAL: No acute osseous abnormality. Mild degenerative change of the shoulders. Multiple sternotomy wires. Moderate degenerative change of the thoracic spine with exaggerated kyphosis. No clear evidence of an acute bony abnormality. UPPER ABDOMEN: Status post cholecystectomy with drainage tube present in the RUQ. There appears to be a small amount of free air in the right upper quadrant, not unexpected recent postoperative. Partially seen postope rative changes in the anterior abdominal wall with overlying skin lakisha. Mild body wall edema. NG t ube curves back within the stomach before terminating in the proximal gastric body. Atherosclerotic d isease with mild/moderate stenoses of the proximal celiac, superior mesenteric, and renal arteries ham ggested. IMPRESSION: 1. No evidence of central pulmonary embolism. Limited evaluation of the segmental and subsegmental br anches. 2. Moderate left and mild to moderate right pleural effusions. Adjacent lung opacities likely represe nt atelectasis with superimposed infection difficult to exclude. 3. Postoperative changes in the upper abdomen as above. 4. NG tube terminates in the proximal gastric body. Consider repositioning/advancement for optimal po sitioning. 5. Other chronic and likely incidental findings, as described above.
[2024-01-29] MEDS: FLUCONAZOLE IN NACL,ISO-OSM 200 MG in SALINE 1 100ML.BAG IVPB SCH (23:06)
[2024-01-29 23:55] LABS: Glucose,Whole Blood 192 mg/dL (70-110)
[2024-01-30 05:03] LABS: Anisocytosis Slight; Basophils % (A) 1 %; Eosinophils # (A) 0.1 k/uL (0-0.7); Eosinophils % (A) 1 %; HCT 32.1 % (39.0-53.0); HGB 10.1 gm/dL (13.0-17.5); Hypochromasia Marked; Lymphocytes # (A) 0.7 k/uL (1.0-4.8); Lymphocytes % (A) 7 %; MCH 27.1 pg (25.0-35.0); MCHC 31.3 g/dL (31.0-37.0); MCV 86.6 fL (80.0-100.0); Mean Platelet Volume 7.2; Monocytes # (A) 0.6 k/uL (0-1.0); Monocytes % (A) 6 %; Neutrophils # (A) 8.1 k/uL (1.3-7.7); Neutrophils % (A) 84 %; Platelet Count 214 k/uL (150-450); RBC 3.71 m/uL (4.30-5.90); RDW 17.3 % (11.5-15.5); WBC 9.7 k/uL (3.8-10.6)
[2024-01-30 05:20] LABS: ALT 12 U/L (4-49); AST 26 U/L (17-59); African American GFR (CKD) >90 (>60 ml/min/1.73 sqM); Albumin 1.9 g/dL (3.5-5.0); Alkaline Phosphatase 128 U/L (38-126); Anion Gap 6 mmol/L; Blood Urea Nitrogen 25 mg/dL (9-20); Calcium 6.8 mg/dL (8.4-10.2); Carbon Dioxide 22 mmol/L (22-30); Chloride 117 mmol/L (98-107); Glucose 250 mg/dL (74-99); Non-African American GFR(CKD) 80 (>60 ml/min/1.73 sqM); Potassium 3.6 mmol/L (3.5-5.1); Sodium 145 mmol/L (137-145); Total Bilirubin 0.3 mg/dL (0.2-1.3); Total Protein 4.6 g/dL (6.3-8.2)
[2024-01-30] MEDS: POTASSIUM BICARBONATE/CIT AC 20 MEQ TABLET.EFF NG-TUBE SCH (05:29)
[2024-01-30 05:33] LABS: Glucose,Whole Blood 303 mg/dL (70-110)
[2024-01-30 08:19] LABS: Glucose,Whole Blood 280 mg/dL (70-110)
[2024-01-30] MEDS: FUROSEMIDE 10 MG/ML 4 ML VIAL IV SCH (08:35)
--- NOTE | 2024-01-30 08:43 | XR ---
EXAMINATION TYPE: XR chest 1V portable DATE OF EXAM: 01/30/2024 5:41 AM CLINICAL INDICATION:Male, 78 years old with history of dyspnea; PHH COMPARISON: Chest radiographs from 09/09/2024 TECHNIQUE: XR chest 1V portable Frontal view of the chest. FINDINGS: Lungs/Pleura: There is no evidence of pleural effusion, focal consolidation, or pneumothorax. Pulmonary vascularity: Unremarkable. Heart/mediastinum: Cardiomediastinal silhouette is enlarged and stable. Post aortic valve repair cristian nges. Musculoskeletal: No acute osseous pathology. Midline sternotomy wires are noted. Other findings: None Lines/Tubes: Nasogastric tube with its distal tip and side-port projecting under the diaphragm. IMPRESSION: No acute cardiopulmonary disease/process.
[2024-01-30 11:49] LABS: Glucose,Whole Blood 328 mg/dL (70-110)
--- NOTE | 2024-01-30 11:59 | P.PN ---
Subjective Progress Note Date: 01/30/24 I am seeing this patient in consultation today 01/24/2024 in the intensive care unit as he is status postoperative day #1 following a laparoscopic cholecystectomy converted to open surgery with open appendectomy. Patient is a 78-year-old white male with past medical history significant for recent transca theter aortic valve replacement on November 30, previous CABG, diabetes mellitus, hyperlipidemia, hypertension, peripheral vascular disease, BPH, advanced dementia, and recent inpatient hospitalization 12/23/2023 through 01/02/2024 for acute cholecystitis status post CT-guided percutaneous cholecystostomy tube placement on 12/28/2023. Patient was initially discharged home with home health care, but somehow ended up at [facility] [place]. Patient sent into the emergency room on 01/22/2024 with intractable nausea and vomiting and abdominal pain. Patient is currently intubated to mechanical ventilator, and I am unable to provide elicit any information for this reason. An abdominal /pelvis CT taken on admission showed few scattered foci of gas in the upper abdomen which could be secondary to partial retraction of the percutaneous cholecystostomy tube with sideport open to the peritoneal cavity. There was cholecystitis involving the transverse colon to the rectum. Dilated appendix which was new from previous imaging on 12/25/2023. And a small left pleural effusion. Patient was taken to the operating room on 01/23/2024 was found to have cholecystitis with focal gangrenous changes and bile leak. Patient underwent a laparoscopic cholecystectomy which was converted to open procedure with open appendectomy. Postoperatively, the patient was left on the mechanical ventilator and transferred to the intensive care unit. Patient is currently in room 258, he is intubated, and on the mechanical ventilator. He is sedated on propofol which is infusing at 20 mcg/kg/min. He is synchronous with the mechanical ventilator. He wakes with tactile stimulus, but does not follow any commands. Postoperative chest x-ray shows endotracheal tube above the karly, and orogastric tube coursing below the diaphragm, and a small left pleural effusion. No other acute cardiopulmonary pathology noted. Postoperative ABG as a PaO2 greater than 400, pCO2 of 36, and pH of 7.35. This was done on ventilator settings including assist-control, respiratory rate 18, tidal volume 450, FiO2 100%, and PEEP of 5. FiO2 was sent weaned to 40%. I am told the patient had an EBL of approximately 350 mL and was given 1 L normal saline bolus intraoperatively. Blood pressure remains normotensive. Not requiring any vasopressors. Normal saline is infusing at 75 mL/h. Postoperative CBC is a WBC count of 17, hemoglobin stable at 11.8, hematocrit 37, platelets 263. Postoperative BMP includes a sodium 135, potassium 3.8, chloride 104, serum bicarb 21, BUN 21, creatinine 1.36, glucose 200. Lactic acid level 0.9. Patient does have a indwelling urinary catheter draining 40 to 50 mL of urine per hour. Urinalysis has small leukocyte Estrace and pyuria. Patient is empirically covered on Zosyn for his abdomen. He is afebrile. Prognosis is guarded. Patient is being monitored in the intensive care unit. Patient was reevaluated today on 01/25/2024, patient remains in the ICU, he is on assist-control rate of 18 tidal volume 450 FiO2 40% and PEEP of 5. ABG showed a pO2 of 100 pCO2 32 pH of 7.37. Overnight the patient was kept on Precedex, and he is on 0.4 mcg/kg/h. Patient is on IV fluid at 75 cc/h vital HP at 20 cc/h. Urine output is excellent about 30 to 50 cc/h. Patient is not agitated, he is not restless, seems to be calm, hence I am planning to place the patient on pre ssure support of 10 and CPAP, and if tolerated may consider weaning and extubating the patient. Chest x-ray showed mild pulmonary vascular congestion, and retrocardiac atelectasis, patient will be given a dose of Lasix, and his IV fluid was cut down to KVO WBC count today is 16.2 hemoglobin is 8.5 basic metabolic profile is normalHowever bicarb is 12 BUN is 25 creatinine 1.27 Patient was reevaluated today on 01/26/2024, patient was extubated yesterday, he tolerated extubation well, patient is now on Precedex at 0.6, patient is also on Dilaudid and Zosyn as well as Ativan added today. Patient gets agitated, he does have underlying dementia, and keeps trying to get out of bed. Hence we will continue the Precedex today, will add Ativan 0.5 mg IV push every 2 hours as needed. Patient remains on 2 L nasal cannula with O2 sats of 98%. His x-ray showed cardiomegaly and left basilar atelectasis Patient was reevaluated today on 01/27/2024, patient is doing fairly well except for his episodes of agitation, patient has severe underlying dementia, and takes a number of people to keep him calm, patient yesterday was on Precedex and Ativan, developed a bit of obtundation, and Precedex was discontinued today the patient is receiving Ativan as needed, nonetheless, patient continues to have si gnificant agitation. WBC count is 18.7 hemoglobin is 11.3, basic metabolic profile is normal bicarb is 12 anion gap is 17 BUN is 27 creatinine 1.31. Chest x-ray from yesterday showed mostly left basilar atelectasis Reevaluate today on 01/28/2024, patient remains in the ICU, patient is kept in the ICU mostly because of his extreme agitation, and I do not believe the patient could be managed on the medical floor. Last night he was quite agitated, remains on Haldol and Ativan and Dilaudid. Today he seems to be [place], a nasogastric tube was placed in yesterday for nutritional support and now he is receiving Glucerna at 50 mL/h. IV fluid is running at 0.9 normal saline, patient still confused, gets agitated easily but seems to be calm today during my evaluation. WBC count is 14.9 hemoglobin 10.7 basic metabolic profile is normal renal profile noted, creatinine of 1.33 Patient was reevaluated today on 2023, patient remains in the ICU, patient had a temp of 101.6 last night, continues to have intermittent episodes of agitations requiring Haldol and Ativan, today we added Seroquel 25 mg twice daily to be given via nasogastric tube. Patient remains on enteral feeding Glucerna at 55 mL/h. Patient is still receiving IV fluid at 0.9 normal saline, 100 cc/h, urine output is marginal, hence I am recommending Lasix to be given. Blood sugar is high today above 400, patient will be started on Levemir insulin at 20 units/day and considering his sodium seems to be on the rise, I am recommending changing his IV fluid to D5W at 100 cc/h. Patient remains on Zosyn, the main issue with this patient seems to be issues related to his agitation and profound dementia. WBC count is 12.3 hemoglobin 10.3 basic metabolic profile showed sodium of 145 chloride 120 BUN is 29 creatinine 1.08, patient remains on sliding scale insulin and now he is on Levemir 20 units daily. The patient was seen today January 30, 2024 in follow-up in the intensive care unit. He is currently resting in bed. He is currently maintaining O2 saturations in the 90s on 6 L/min per nasal cannula. He did have fevers yesterday. He is currently afebrile. Dopplers of the lower extremity were negative for DVT. CT angiogram revealed no evidence of pulmonary embolism. There is moderate left and mild to moderate right pleural effusions. Adjacent lung opacities likely representing atelectasis. Nasogastric tube in place. Chest x-ray today reveals no acute pulmonary process. Blood cultures revealed no growth. Sputum culture revealed no growth. White count 9.7. Hemoglobin 10.1. Platelets 214. Sodium 145. Potassium 3.6. Bicarb 22. BUN 25. Creatinine 0.93. Glucose 250. Objective - Vital Signs Vital signs: Vital Signs Temp 98.9 F 01/30/24 08:00 Pulse 84 01/30/24 10:00 Resp 29 H 01/30/24 11:00 BP 146/63 01/30/24 11:00 Pulse Ox 96 01/30/24 11:00 FiO2 50 01/25/24 14:50 Intake & Output 01/29/24 01/30/24 01/30/24 18:59 06:59 18:59 Intake Total 2320 2205 805 Output Total 1445 815 590 Balance 875 1390 215 Weight 98 kg 98 kg Intake: IV 1450 1400 500 Dextrose 5% in Water 1, 1000 1200 500 000 ml @ 100 mls/hr IV . Q10H [facility] Rx#:[id number] Fluconazole in NaCl,Iso- 100 Osm 200 mg In Saline 1 100ml.bag @ 100 mls/hr IVPB DAILY@2300 [facility] Rx#: [id number] Invasive Line 3 40 Invasive Line 4 10 Piperacillin-Tazobactam 3 200 100 .375 gm In Sodium Chloride 0.9% 100 ml @ 25 mls/hr IVPB Q8HR [facility] Rx# :[id number] Sodium Chloride 0.9% 1, 200 000 ml @ 100 mls/hr IV . Q10H [facility] Rx#:[id number] Tube Feeding 770 715 275 Other 100 90 30 Output: Drainage 405 40 310 Right Lower Abdomen 405 40 310 Urine 1040 775 280 Other: Voiding Method Indwelling Catheter Indwelling Catheter Indwelling Catheter # Bowel Movements 1 1 0 - Exam GENERAL EXAM: 78-year-old obese male, currently calm, on 6 L high flow nasal cannula. HEAD: Normocephalic and atraumatic EYES: Normal reaction of pupils, equal size. NOSE: Clear with pink turbinates. Nasogastric tube in place. THROAT: No erythema or exudates. NECK: No masses, no JVD. CHEST: No chest wall deformity. LUNGS: Fine crackles at the bases. CVS: S1 and S2 normal with no audible murmur, regular rhythm. No extra heart sounds ABDOMEN: Postsurgical abdomen with lateral incisional dressing intact and dry. CENTRAL NERVOUS SYSTEM: Confused, gets agitated easily. EXTREMITIES: There is no peripheral edema, clubbing, or cyanosis. Peripheral pulses are intact. Chronic venous stasis changes noted lower extremity SKIN: No rashes - Labs CBC & Chem 7: 01/30/24 04:42 01/30/24 04:42 Labs: Abnormal Lab Results - Last 24 Hours (Table) 01/29/24 01/29/24 01/29/24 Range/Units 17:00 17:23 20:13 RBC (4.30-5.90) m/uL Hgb (13.0-17.5) gm/dL Hct (39.0-53.0) % RDW (11.5-15.5) % Neutrophils # (1.3-7.7) k/uL Lymphocytes # (1.0-4.8) k/uL D-Dimer 3.19 H (<0.60) mg/L FEU ABG pH 7.52 H (7.35-7.45) ABG pCO2 27 L (35-45) mmHg ABG pO2 57 L* (83-108) mmHg ABG O2 Saturation 93.5 L (94-97) % Chloride (98-107) mmol/L BUN (9-20) mg/dL Glucose (74-99) mg/dL POC Glucose (mg/dL) 305 H (70-110) mg/dL Calcium (8.4-10.2) mg/dL Alkaline Phosphatase (38-126) U/L Total Protein (6.3-8.2) g/dL Albumin (3.5-5.0) g/dL 01/29/24 01/30/24 01/30/24 Range/Units 23:54 04:42 04:42 RBC 3.71 L (4.30-5.90) m/uL Hgb 10.1 L (13.0-17.5) gm/dL Hct 32.1 L (39.0-53.0) % RDW 17.3 H (11.5-15.5) % Neutrophils # 8.1 H (1.3-7.7) k/uL Lymphocytes # 0.7 L (1.0-4.8) k/uL D-Dimer (<0.60) mg/L FEU ABG pH (7.35-7.45) ABG pCO2 (35-45) mmHg ABG pO2 (83-108) mmHg ABG O2 Saturation (94-97) % Chloride 117 H (98-107) mmol/L BUN 25 H (9-20) mg/dL Glucose 250 H (74-99) mg/dL POC Glucose (mg/dL) 192 H (70-110) mg/dL Calcium 6.8 L (8.4-10.2) mg/dL Alkaline Phosphatase 128 H (38-126) U/L Total Protein 4.6 L (6.3-8.2) g/dL Albumin 1.9 L (3.5-5.0) g/dL 01/30/24 01/30/24 01/30/24 Range/Units 05:32 08:17 11:47 RBC (4.30-5.90) m/uL Hgb (13.0-17.5) gm/dL Hct (39.0-53.0) % RDW (11.5-15.5) % Neutrophils # (1.3-7.7) k/uL Lymphocytes # (1.0-4.8) k/uL D-Dimer (<0.60) mg/L FEU ABG pH (7.35-7.45) ABG pCO2 (35-45) mmHg ABG pO2 (83-108) mmHg ABG O2 Saturation (94-97) % Chloride (98-107) mmol/L BUN (9-20) mg/dL Glucose (74-99) mg/dL POC Glucose (mg/dL) 303 H 280 H 328 H (70-110) mg/dL Calcium (8.4-10.2) mg/dL Alkaline Phosphatase (38-126) U/L Total Protein (6.3-8.2) g/dL Albumin (3.5-5.0) g/dL Microbiology - Last 24 Hours (Table) 01/26/24 20:53 Stool Culture - Final Stool Assessment and Plan Assessment: Chronic cholecystitis status post open cholecystectomy and appendectomy 01/23/2024. Patient was extubated on 01/25/2024 Advanced dementia Acute blood loss anemia expected outcome of surgery Chronic kidney disease stage III History of aortic stenosis and previous TAVR. 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 Number of minutes spent on the visit: 10.
--- NOTE | 2024-01-30 12:14 | P.PN ---
Subjective Progress Note Date: 01/30/24 Hospital Course: 78 year old M with PMH of COPD, DM, HTN, GERD, BPH, CAD with CABG, Dementia, Depression and anxiety, diastolic CHF, h/o TAVR presented to the ED for RLQ abdominal pain. Recently hospitalized from 12/23-01/02 for cholecystitis, NSTEMI and SAMANTHA. Found to be high risk for surgery, underwent cholecystostomy, discharged on PO antibiotics. He presents back to the hospital for RLQ pain. In the ED he underwent extensive evaluation. BP 127/75 HR 87 T 98.7F RR 18 94% on RA. CBC and CMP significant for WBC 18.3, Hg 12.8, bicarb 19, BUN 22, Cr 1.32, glu 133, alk phos 135, alb 3.4. Lactic acid 3.1. CT AP showed foci of gas in the upper abdomen, retraction of the percutaneous cholecystostomy tube, colitis of the transverse colon to the rectum and dilated appedix concerning for appendicitis. Underwent appendectomy and cholecystectomy by general surgery. After surgery, patient remained intub ated, transferred to medical ICU. He has since been extubated. Continue to remain agitated. Requiring significant amount of chemical restraints. Subjective: Patient seen and examined at bedside. Yesterday evening, patient had respiratory distress with tachypnea and hypoxia. CTA chest lower extremity Dopplers did not show any signs of DVT/PE. He did receive Haldol 2 x 2 overnight. Also started on IV fluconazole. Patient is also having significant urine leakage around his urinary catheter. Also has significant amount of stooling, C. difficile pending. Mental status still waxing and waning Pertinent positives and negatives as discussed above, a complete review of systems was performed and all other systems are negative. Vitals Signs Reviewed. General: Nontoxic, no distress, appears at stated age, obtunded Derm: Warm, dry, scrotal erythema Head: Atraumatic, normocephalic, symmetric Eyes: EOMI, no lid lag, anicteric sclera Mouth: No lip lesion, mucus membranes moist Cardiovascular: S1S2 reg, no murmur Lungs: CTA bilateral, no rhonchi, no rales, no accessory muscle use, s upplemental oxygen Abdominal: Soft, nontender to palpation, no guarding, no appreciable organomegaly, NG tube in place, JUNE drain in place Ext: No gross muscle atrophy, no contractures, pitting edema Neuro: Moving all extremities, not following commands Psych: Unable to assess Data Reviewed Today: Pertinent Labs: Imaging: Assessment and Plan: Sepsis, present on admission Acute appendicitis Chemical peritonitis, secondary to bile leak Recent cholecystitis, status post cholecystostomy Status post cholecystectomy and appendectomy done on this admission Acute encephalopathy, likely multifactorial, metabolic and septic Acute delirium Continue IV Zosyn 3.375 g every 8 hours Pain control with oral Tylenol PRN, oral Percocet as needed, IV dilaudid PRN, monitor for sedation Agitation control with haldol/ativan PRN, also on Seroquel 50 twice daily, increased today Intertrigo On IV fluconazole 200 mg daily Protein Calorie Malnutrition, moderate Continue TFs May need PEG tube if family wants to continue full care Ventilatory dependent respiratory failure after surgery, resolved Acute hypoxic respiratory failure Bilateral pleural effusion CTA negative for PE [place] hypoxic respiratory failure on nasal cannula On IV Lasix 40 daily, diuresing well, monitor renal function and electrolytes Type 2 diabetes Continue Levemir 20 units daily, sliding scale insulin every 6 hours, monitor for hypoglycemia Acute kidney injury, resolved Acute blood loss anemia likely from surgery, resolved Hemoglobin stable Coronary disease Chronic diastolic heart failure Recent TAVR -Cardiology on board -Stable -Resume home cardiac meds Chronic conditions COPD Diabetes mellitus Hypertension GERD BPH Dementia Depression anxiety -Stable DVT ppx: SQ heparin Code status: Anticipated discharge place: Pending clinical course Anticipated discharge time: Pending clinical course Objective - Vital Signs Vital signs: Vital Signs Temp 98.9 F 01/30/24 08:00 Pulse 84 01/30/24 10:00 Resp 29 H 01/30/24 11:00 BP 146/63 01/30/24 11:00 Pulse Ox 96 01/30/24 11:00 FiO2 50 01/25/24 14:50 Intake & Output 01/29/24 01/30/24 01/30/24 18:59 06:59 18:59 Intake Total 2320 2205 860 Output Total 1445 815 590 Balance 875 1390 270 Weight 98 kg 98 kg Intake: IV 1450 1400 500 Dextrose 5% in Water 1, 1000 1200 500 000 ml @ 100 mls/hr IV . Q10H [facility] Rx#:[id number] Fluconazole in NaCl,Iso- 100 Osm 200 mg In Saline 1 100ml.bag @ 100 mls/hr IVPB DAILY@2300 [facility] Rx#: [id number] Invasive Line 3 40 Invasive Line 4 10 Piperacillin-Tazobactam 3 200 100 .375 gm In Sodium Chloride 0.9% 100 ml @ 25 mls/hr IVPB Q8HR [facility] Rx# :[id number] Sodium Chloride 0.9% 1, 200 000 ml @ 100 mls/hr IV . Q10H [facility] Rx#:[id number] Tube Feeding 770 715 330 Other 100 90 30 Output: Drainage 405 40 310 Right Lower Abdomen 405 40 310 Urine 1040 775 280 Other: Voiding Method Indwelling Catheter Indwelling Catheter Indwelling Catheter # Bowel Movements 1 1 0 - Labs CBC & Chem 7: 01/30/24 04:42 01/30/24 04:42 Labs: Abnormal Lab Results - Last 24 Hours (Table) 01/29/24 01/29/24 01/29/24 Range/Units 17:00 17:23 20:13 RBC (4.30-5.90) m/uL Hgb (13.0-17.5) gm/dL Hct (39.0-53.0) % RDW (11.5-15.5) % Neutrophils # (1.3-7.7) k/uL Lymphocytes # (1.0-4.8) k/uL D-Dimer 3.19 H (<0.60) mg/L FEU ABG pH 7.52 H (7.35-7.45) ABG pCO2 27 L (35-45) mmHg ABG pO2 57 L* (83-108) mmHg ABG O2 Saturation 93.5 L (94-97) % Chloride (98-107) mmol/L BUN (9-20) mg/dL Glucose (74-99) mg/dL POC Glucose (mg/dL) 305 H (70-110) mg/dL Calcium (8.4-10.2) mg/dL Alkaline Phosphatase (38-126) U/L Total Protein (6.3-8.2) g/dL Albumin (3.5-5.0) g/dL 01/29/24 01/30/24 01/30/24 Range/Units 23:54 04:42 04:42 RBC 3.71 L (4.30-5.90) m/uL Hgb 10.1 L (13.0-17.5) gm/dL Hct 32.1 L (39.0-53.0) % RDW 17.3 H (11.5-15.5) % Neutrophils # 8.1 H (1.3-7.7) k/uL Lymphocytes # 0.7 L (1.0-4.8) k/uL D-Dimer (<0.60) mg/L FEU ABG pH (7.35-7.45) ABG pCO2 (35-45) mmHg ABG pO2 (83-108) mmHg ABG O2 Saturation (94-97) % Chloride 117 H (98-107) mmol/L BUN 25 H (9-20) mg/dL Glucose 250 H (74-99) mg/dL POC Glucose (mg/dL) 192 H (70-110) mg/dL Calcium 6.8 L (8.4-10.2) mg/dL Alkaline Phosphatase 128 H (38-126) U/L Total Protein 4.6 L (6.3-8.2) g/dL Albumin 1.9 L (3.5-5.0) g/dL 01/30/24 01/30/24 01/30/24 Range/Units 05:32 08:17 11:47 RBC (4.30-5.90) m/uL Hgb (13.0-17.5) gm/dL Hct (39.0-53.0) % RDW (11.5-15.5) % Neutrophils # (1.3-7.7) k/uL Lymphocytes # (1.0-4.8) k/uL D-Dimer (<0.60) mg/L FEU ABG pH (7.35-7.45) ABG pCO2 (35-45) mmHg ABG pO2 (83-108) mmHg ABG O2 Saturation (94-97) % Chloride (98-107) mmol/L BUN (9-20) mg/dL Glucose (74-99) mg/dL POC Glucose (mg/dL) 303 H 280 H 328 H (70-110) mg/dL Calcium (8.4-10.2) mg/dL Alkaline Phosphatase (38-126) U/L Total Protein (6.3-8.2) g/dL Albumin (3.5-5.0) g/dL Microbiology - Last 24 Hours (Table) 01/26/24 20:53 Stool Culture - Final Stool
[2024-01-30] MEDS: QUEtiapine 25 MG TAB PO STA (12:30)
--- NOTE | 2024-01-30 12:41 | P.PN ---
Subjective Progress Note Date: 01/30/24 CHIEF COMPLAINT: Chronic cholecystitis HISTORY OF PRESENT ILLNESS: Patient remains in the ICU. Patient continues to have confusion requiring Haldol and Seroquel for his agitation. Patient did receive IV Lasix yesterday. He is not eating he is currently receiving tube feeds through the NG tube. He is having loose stools. They are planning to collect a stool for C. difficile. JUNE drain is increased with 310 mL output of serous fluid. He did have a low-grade temp of 100.3 last night. WBC is down from 12-9.7. Albumin 1.9 PHYSICAL EXAM: VITAL SIGNS: Reviewed. GENERAL: no acute distress. ABDOMEN: Soft. nondistended Incisional dressing clean dry and intact. ASSESSMENT: 1. Chronic cholecystitis with focal gangrenous changes, bile leak 2. Dilated appendix 3. Increased drain output thought to be related to ascites from third spacing PLAN: -Continue ICU management -Continue supportive care -Continue antibiotics -Continue tube feeds for nutrition support through the NG tube -Continue antibiotics -DVT prophylaxis subcu heparin Physician [employer] Lab[employer] note has been reviewed by physician. Signing provider agrees with the documented findings, assessment, and plan of care. I have personally seen and examined the patient, reviewed the [employer] PROGRAMMER /PAs history, exam and MDM and agree with the assessment and plan as written. Based on total visit time, I have performed more than 50% of the visit. As above: Patient still quite agitated. Some diarrhea now. Stool being sent for C. difficile. JUNE drain serous. Appears edematous diffusely. Incision is clean and dry. Patient tolerating tube feeds through nasogastric tube however this is not a long-term solution. Family considering comfort measures versus PEG tube. Would be concerned about complications from PEG tube at this time gi nita the degree of abdominal wall edema and third spacing. Also if the patient's mental status is poor he is at risk of aspiration with long-term PEG tube feeds. Will follow. Objective - Vital Signs Vital signs: Vital Signs Temp 98.9 F 01/30/24 08:00 Pulse 84 01/30/24 10:00 Resp 29 H 01/30/24 11:00 BP 146/63 01/30/24 11:00 Pulse Ox 96 01/30/24 11:00 FiO2 50 01/25/24 14:50 Intake & Output 01/29/24 01/30/24 01/30/24 18:59 06:59 18:59 Intake Total 2320 2205 860 Output Total 1445 815 590 Balance 875 1390 270 Weight 98 kg 98 kg Intake: IV 1450 1400 500 Dextrose 5% in Water 1, 1000 1200 500 000 ml @ 100 mls/hr IV . Q10H [facility] Rx#:[id number] Fluconazole in NaCl,Iso- 100 Osm 200 mg In Saline 1 100ml.bag @ 100 mls/hr IVPB DAILY@2300 [facility] Rx#: [id number] Invasive Line 3 40 Invasive Line 4 10 Piperacillin-Tazobactam 3 200 100 .375 gm In Sodium Chloride 0.9% 100 ml @ 25 mls/hr IVPB Q8HR [facility] Rx# :[id number] Sodium Chloride 0.9% 1, 200 000 ml @ 100 mls/hr IV . Q10H [facility] Rx#:[id number] Tube Feeding 770 715 330 Other 100 90 30 Output: Drainage 405 40 310 Right Lower Abdomen 405 40 310 Urine 1040 775 280 Other: Voiding Method Indwelling Catheter Indwelling Catheter Indwelling Catheter # Bowel Movements 1 1 0 - Labs CBC & Chem 7: 01/30/24 04:42 01/30/24 04:42 Labs: Abnormal Lab Results - Last 24 Hours (Table) 01/29/24 01/29/24 01/29/24 Range/Units 17:00 17:23 20:13 RBC (4.30-5.90) m/uL Hgb (13.0-17.5) gm/dL Hct (39.0-53.0) % RDW (11.5-15.5) % Neutrophils # (1.3-7.7) k/uL Lymphocytes # (1.0-4.8) k/uL D-Dimer 3.19 H (<0.60) mg/L FEU ABG pH 7.52 H (7.35-7.45) ABG pCO2 27 L (35-45) mmHg ABG pO2 57 L* (83-108) mmHg ABG O2 Saturation 93.5 L (94-97) % Chloride (98-107) mmol/L BUN (9-20) mg/dL Glucose (74-99) mg/dL POC Glucose (mg/dL) 305 H (70-110) mg/dL Calcium (8.4-10.2) mg/dL Alkaline Phosphatase (38-126) U/L Total Protein (6.3-8.2) g/dL Albumin (3.5-5.0) g/dL 01/29/24 01/30/24 01/30/24 Range/Units 23:54 04:42 04:42 RBC 3.71 L (4.30-5.90) m/uL Hgb 10.1 L (13.0-17.5) gm/dL Hct 32.1 L (39.0-53.0) % RDW 17.3 H (11.5-15.5) % Neutrophils # 8.1 H (1.3-7.7) k/uL Lymphocytes # 0.7 L (1.0-4.8) k/uL D-Dimer (<0.60) mg/L FEU ABG pH (7.35-7.45) ABG pCO2 (35-45) mmHg ABG pO2 (83-108) mmHg ABG O2 Saturation (94-97) % Chloride 117 H (98-107) mmol/L BUN 25 H (9-20) mg/dL Glucose 250 H (74-99) mg/dL POC Glucose (mg/dL) 192 H (70-110) mg/dL Calcium 6.8 L (8.4-10.2) mg/dL Alkaline Phosphatase 128 H (38-126) U/L Total Protein 4.6 L (6.3-8.2) g/dL Albumin 1.9 L (3.5-5.0) g/dL 01/30/24 01/30/24 01/30/24 Range/Units 05:32 08:17 11:47 RBC (4.30-5.90) m/uL Hgb (13.0-17.5) gm/dL Hct (39.0-53.0) % RDW (11.5-15.5) % Neutrophils # (1.3-7.7) k/uL Lymphocytes # (1.0-4.8) k/uL D-Dimer (<0.60) mg/L FEU ABG pH (7.35-7.45) ABG pCO2 (35-45) mmHg ABG pO2 (83-108) mmHg ABG O2 Saturation (94-97) % Chloride (98-107) mmol/L BUN (9-20) mg/dL Glucose (74-99) mg/dL POC Glucose (mg/dL) 303 H 280 H 328 H (70-110) mg/dL Calcium (8.4-10.2) mg/dL Alkaline Phosphatase (38-126) U/L Total Protein (6.3-8.2) g/dL Albumin (3.5-5.0) g/dL Microbiology - Last 24 Hours (Table) 01/26/24 20:53 Stool Culture - Final Stool
[2024-01-30 16:08] LABS: Glucose,Whole Blood 312 mg/dL (70-110)
[2024-01-30] MEDS: PIPERACILLIN-TAZOBACTAM 3.375 GM in SODIUM CHLORIDE 0.9% 100 ML IVPB SCH (16:54)
[2024-01-30] MEDS: QUEtiapine 50 MG TAB PO SCH (21:07)
[2024-01-30 23:20] LABS: Glucose,Whole Blood 357 mg/dL (70-110)
[2024-01-31 04:55] LABS: Anisocytosis Slight; Basophils # (A) 0.1 k/uL (0-0.2); Basophils % (A) 1 %; Eosinophils # (A) 0.1 k/uL (0-0.7); Eosinophils % (A) 1 %; HCT 32.5 % (39.0-53.0); HGB 10.1 gm/dL (13.0-17.5); Hypochromasia Marked; Lymphocytes % (A) 9 %; MCH 27.1 pg (25.0-35.0); MCHC 31.1 g/dL (31.0-37.0); MCV 87.1 fL (80.0-100.0); Mean Platelet Volume 7.7; Monocytes # (A) 0.8 k/uL (0-1.0); Monocytes % (A) 6 %; Neutrophils # (A) 9.8 k/uL (1.3-7.7); Neutrophils % (A) 82 %; Platelet Count 201 k/uL (150-450); RBC 3.73 m/uL (4.30-5.90); RDW 17.3 % (11.5-15.5)
[2024-01-31 05:26] LABS: ALT 13 U/L (4-49); AST 36 U/L (17-59); African American GFR (CKD) >90 (>60 ml/min/1.73 sqM); Albumin 1.9 g/dL (3.5-5.0); Alkaline Phosphatase 136 U/L (38-126); Anion Gap 6 mmol/L; Blood Urea Nitrogen 29 mg/dL (9-20); Calcium 6.8 mg/dL (8.4-10.2); Carbon Dioxide 22 mmol/L (22-30); Chloride 113 mmol/L (98-107); Glucose 275 mg/dL (74-99); Non-African American GFR(CKD) 83 (>60 ml/min/1.73 sqM); Potassium 4.3 mmol/L (3.5-5.1); Sodium 141 mmol/L (137-145); Total Bilirubin 0.4 mg/dL (0.2-1.3); Total Protein 4.8 g/dL (6.3-8.2)
[2024-01-31 05:40] LABS: Glucose,Whole Blood 336 mg/dL (70-110)
--- NOTE | 2024-01-31 06:11 | P.GSCN ---
History of Present Illness Consult date: 01/30/24 Reason for Consult: Urinary incontinence Requesting physician: Fan Carrillo History of present illness: The patient is a 78-year-old white male who underwent an open cholecystectomy and appendectomy on January 23, 2024 for chronic cholecystitis with focal gangrenous changes and bile leak. He has had an indwelling Morales catheter since that time. Urine leakage has been noted around the catheter. I am consulted for this reason. The patient has a history of BPH, for which he takes tamsulosin at home. Review of Systems ROS unobtainable: due to mental status Past Medical History Past Medical History: Coronary Artery Disease (CAD), Heart Failure, COPD, Dementia, Diabetes Mellitus, GERD/Reflux, Hyperlipidemia, Hypertension, Memory I mpairment, Myocardial Infarction (GA), Neurologic Disorder, Osteoarthritis (OA), Pneumonia, Prostate Disorder, Vascular Disorder Additional Past Medical History / Comment(s): Hx falls and diarrhea/incontinence since diagnosed with Covid Oct 2022, daughter thinks he may have had a minor heart attack when he had Covid as well. 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 PAD. Enlarged prostate. Chronic back pain. Hx bronchitis. Sinus issues. Last Myocardial Infarction Date:: 2014 History of Any Multi-Drug Resistant Organisms: None Reported Past Surgical History: Coronary Bypass/CABG, Orthopedic Surgery Additional Past Surgical History / Comment(s): 2014 CABG 4 vessel/bioprosthetic aortic valve, angiograms, aortagram with bilateral run-offs, PTBA/atherectomy left leg, left foot surgery for crush injury, colonoscopy, bilateral cataract removals. TAVR Oct 2023. Past Anesthesia/Blood Transfusion Reactions: No Reported Reaction Past Psychological History: Anxiety, Depression Smoking Status: Never smoker Past Alcohol Use History: Heavy Past Drug Use History: None Reported - Past Family History Father History Unknown: Yes Family Medical History: Congestive Heart Failure (CHF) Mother History Unknown: Yes Family Medical History: Congestive Heart Failure (CHF) Medications and Allergies Home Medications Medication Instructions Recorded Confirmed Type Omeprazole [PriLOSEC] 20 mg PO DAILY 02/23/15 01/23/24 History Donepezil [Aricept] 10 mg PO HS #30 03/13/15 01/23/24 Rx Tamsulosin HCl [Flomax] 0.4 mg PO DAILY 03/07/17 01/23/24 History Amitriptyline HCl [Elavil] 25 mg PO HS 03/16/22 01/23/24 History Potassium Chloride ER [K-Dur 10] 10 meq PO HS 03/16/22 01/23/24 History Insulin Glargine,Hum.rec.anlog 68 unit SQ W/LUNCH 04/05/22 01/23/24 History [Lantus Solostar Pen] Albuterol Nebulized [Ventolin 2.5 mg INHALATION RT-QID PRN 04/16/23 01/23/24 History Nebulized] Fluticasone Nasal Sutton [Flonase 2 spr EA NOSTRIL DAILY PRN 04/16/23 01/23/24 History Nasal Sutton] Atorvastatin [Lipitor] 80 mg PO HS 05/11/23 01/23/24 History Cholecalciferol [Vitamin D3 (125 125 mcg PO HS 05/11/23 01/23/24 History Mcg = 5000 Iu)] Furosemide [Lasix] 40 mg PO DAILY 05/11/23 01/23/24 History Empagliflozin [Jardiance] 10 mg PO DAILY 11/23/23 01/23/24 History Acetaminophen Tab [Tylenol] 650 mg PO Q4HR PRN tab 12/01/23 01/23/24 Rx Amoxic-Pot Clav 875-125Mg 1 tab PO Q12HR 7 Days #14 tab 01/02/24 01/23/24 Rx [Augmentin 875-125] Aspirin 81 mg PO DAILY #30 tab 01/02/24 01/23/24 Rx amLODIPine [Norvasc] 10 mg PO DAILY #0 01/02/24 01/23/24 Rx INSULIN LISPRO (HumaLOG) [humaLOG] See Protocol SQ ACHS 01/23/24 01/23/24 Histo ry Ondansetron [Zofran] 4 mg PO Q8HR PRN 01/23/24 01/23/24 History Zguard 1 applic TOPICAL DIRECTED PRN 01/23/24 01/23/24 History Zguard 1 applic TOPICAL BID 01/23/24 01/23/24 History hydrALAZINE HCL 10 mg PO TID 01/23/24 01/23/24 History Allergies Allergy/AdvReac Type Severity Reaction Status Date / Time No Known Allergies Allergy Verified 01/23/24 10:07 Surgical - Exam Vital Signs Temp Pulse Resp BP Pulse Ox 98.7 F 87 18 127/75 94 L 01/22/24 16:05 01/22/24 16:05 01/22/24 16:05 01/22/24 16:05 01/22/24 16:05 - General well developed, well nourished - Genitourinary The Morales catheter is in place, draining clear yellow urine. The penis is normal. The scrotum and testes are normal. Mild excoriation of the penoscrotal skin is noted. Results - Labs 01/31/24 04:37 01/31/24 04:37 Abnormal Lab Results - Last 24 Hours (Table) 01/29/24 01/29/24 01/30/24 Range/Units 20:13 23:54 04:42 RBC 3.71 L (4.30-5.90) m/uL Hgb 10.1 L (13.0-17.5) gm/dL Hct 32.1 L (39.0-53.0) % RDW 17.3 H (11.5-15.5) % Neutrophils # 8.1 H (1.3-7.7) k/uL Lymphocytes # 0.7 L (1.0-4.8) k/uL D-Dimer 3.19 H (<0.60) mg/L FEU Chloride (98-107) mmol/L BUN (9-20) mg/dL Glucose (74-99) mg/dL POC Glucose (mg/dL) 192 H (70-110) mg/dL Calcium (8.4-10.2) mg/dL Alkaline Phosphatase (38-126) U/L Total Protein (6.3-8.2) g/dL Albumin (3.5-5.0) g/dL 01/30/24 01/30/24 01/30/24 Range/Units 04:42 05:32 08:17 RBC (4.30-5.90) m/uL Hgb (13.0-17.5) gm/dL Hct (39.0-53.0) % RDW (11.5-15.5) % Neutrophils # (1.3-7.7) k/uL Lymphocytes # (1.0-4.8) k/uL D-Dimer (<0.60) mg/L FEU Chloride 117 H (98-107) mmol/L BUN 25 H (9-20) mg/dL Glucose 250 H (74-99) mg/dL POC Glucose (mg/dL) 303 H 280 H (70-110) mg/dL Calcium 6.8 L (8.4-10.2) mg/dL Alkaline Phosphatase 128 H (38-126) U/L Total Protein 4.6 L (6.3-8.2) g/dL Albumin 1.9 L (3.5-5.0) g/dL 01/30/24 01/30/24 Range/Units 11:47 16:07 RBC (4.30-5.90) m/uL Hgb (13.0-17.5) gm/dL Hct (39.0-53.0) % RDW (11.5-15.5) % Neutrophils # (1.3-7.7) k/uL Lymphocytes # (1.0-4.8) k/uL D-Dimer (<0.60) mg/L FEU Chloride (98-107) mmol/L BUN (9-20) mg/dL Glucose (74-99) mg/dL POC Glucose (mg/dL) 328 H 312 H (70-110) mg/dL Calcium (8.4-10.2) mg/dL Alkaline Phosphatase (38-126) U/L Total Protein (6.3-8.2) g/dL Albumin (3.5-5.0) g/dL Microbiology - Last 24 Hours (Table) 01/26/24 20:53 Stool Culture - Final Stool Diabetes panel 01/29/24 01/30/24 Range/Units 20:13 04:42 Sodium 145 (137-145) mmol/L Potassium 3.6 (3.5-5.1) mmol/L Chloride 117 H (98-107) mmol/L Carbon Dioxide 22 (22-30) mmol/L BUN 25 H (9-20) mg/dL Creatinine 0.93 (0.66-1.25) mg/dL Glucose 250 H (74-99) mg/dL Calcium 6.8 L (8.4-10.2) mg/dL AST 34 26 (17-59) U/L ALT 15 12 (4-49) U/L Alkaline Phosphatase 128 H (38-126) U/L Total Protein 4.6 L (6.3-8.2) g/dL Albumin 1.9 L (3.5-5.0) g/dL Calcium panel 01/30/24 Range/Units 04:42 Calcium 6.8 L (8.4-10.2) mg/dL Albumin 1.9 L (3.5-5.0) g/dL Pituitary panel 01/30/24 Range/Units 04:42 Sodium 145 (137-145) mmol/L Potassium 3.6 (3.5-5.1) mmol/L Chloride 117 H (98-107) mmol/L Carbon Dioxide 22 (22-30) mmol/L BUN 25 H (9-20) mg/dL Creatinine 0.93 (0.66-1.25) mg/dL Glucose 250 H (74-99) mg/dL Calcium 6.8 L (8.4-10.2) mg/dL Adrenal panel 01/29/24 01/30/24 Range/Units 20:13 04:42 Sodium 145 (137-145) mmol/L Potassium 3.6 (3.5-5.1) mmol/L Chloride 117 H (98-107) mmol/L Carbon Dioxide 22 (22-30) mmol/L BUN 25 H (9-20) mg/dL Creatinine 0.93 (0.66-1.25) mg/dL Glucose 250 H (74-99) mg/dL Calcium 6.8 L (8.4-10.2) mg/dL Total Bilirubin 0.3 (0.2-1.3) mg/dL AST 34 26 (17-59) U/L ALT 15 12 (4-49) U/L Alkaline Phosphatase 128 H (38-126) U/L Total Protein 4.6 L (6.3-8.2) g/dL Albumin 1.9 L (3.5-5.0) g/dL Assessment and Plan Plan: The patient has a temperature sensing catheter in place. The catheter was irrigated by the patient's nurse. 60 cc was instilled into the catheter, but only 30 cc could be retrieved. Therefore, the Morales catheter balloon was deflated and the catheter was advanced into the bladder. It was then possible to instill 60 cc into the catheter and retrieve all 60 cc. If there is continued urinary leakage around the catheter, I would suggest that the catheter be exchanged for a standard Morales catheter.
--- NOTE | 2024-01-31 08:23 | XR ---
EXAMINATION TYPE: XR chest 1V DATE OF EXAM: 01/31/2024 5:54 AM CLINICAL INDICATION:Male, 78 years old with history of Dyspnea; PHH COMPARISON: Chest radiographs from 01/30/2024 TECHNIQUE: XR chest 1V Frontal view of the chest. FINDINGS: Lungs/Pleura: Bibasilar airspace opacities are more prominent. There is no evidence of pleural effusi on, focal consolidation, or pneumothorax. Pulmonary vascularity: Unremarkable. Heart/mediastinum: Cardiomediastinal silhouette is enlarged and stable. Musculoskeletal: No acute osseous pathology. Midline sternotomy wires are noted. Other findings: None Lines/Tubes: Nasogastric tube with its distal tip and side-port projecting under the diaphragm. IMPRESSION: Basilar airspace opacities correlate for pneumonia.
--- NOTE | 2024-01-31 11:06 | P.PN ---
Subjective Progress Note Date: 01/31/24 Hospital Course: 78 year old M with PMH of COPD, DM, HTN, GERD, BPH, CAD with CABG, Dementia, Depression and anxiety, diastolic CHF, h/o TAVR presented to the ED for RLQ abdominal pain. Recently hospitalized from 12/23-01/02 for cholecystitis, NSTEMI and SAMANTHA. Found to be high risk for surgery, underwent cholecystostomy, discharged on PO antibiotics. He presents back to the hospital for RLQ pain. In the ED he underwent extensive evaluation. BP 127/75 HR 87 T 98.7F RR 18 94% on RA. CBC and CMP significant for WBC 18.3, Hg 12.8, bicarb 19, BUN 22, Cr 1.32, glu 133, alk phos 135, alb 3.4. Lactic acid 3.1. CT AP showed foci of gas in the upper abdomen, retraction of the percutaneous cholecystostomy tube, colitis of the transverse colon to the rectum and dilated appedix concerning for appendicitis. Underwent appendectomy and cholecystectomy by general surgery. After surgery, patient remained intub ated, transferred to medical ICU. He has since been extubated. Continue to remain agitated. Requiring significant amount of chemical restraints. Subjective: Patient seen and examined at bedside. Still having agitation. Requiring IV Haldol. X 2 overnight. Tolerating tube feeds. Had 3 bowel movements in the last 24 hours. Adequate urine output. Has a Morales catheter in place. Sitter at bedside. Still having some urinary leakage around catheter site, may need to be replaced. Pertinent positives and negatives as discussed above, a complete review of systems was performed and all other systems are negative. Vitals Signs Reviewed. General: Nontoxic, no distress, appears at stated age, obtunded Derm: Warm, dry, scrotal erythema Head: Atraumatic, normocephalic, symmetric Eyes: EOMI, no lid lag, anicteric sclera Mouth: No lip lesion, mucus membranes moist Cardiovascular: S1S2 reg, no murmur Lungs: CTA bilateral, no rhonchi, no rales, no accessory muscle use, supplemental oxygen Abdominal: Soft, nontender to palpation, no guarding, no appreciable organomegaly, NG tube in place, JUNE drain in place Ext: No gross muscle atrophy, no contractures, pitting edema Neuro: Moving all extremities, not following commands Psych: Unable to assess Data Reviewed Today: Pertinent Labs: WBC 12, hemoglobin 10.1, platelet 201, creatinine 0.89, blood sugars range between 2 75-3 57, C. difficile negative Imaging: Chest x-ray independently interpreted, shows bibasilar opacities. Assessment and Plan: Patient is critically ill, prognosis poor. Attempted to speak with both daughters, no response. Will attempt again. Sepsis, present on admission Acute appendicitis Chemical peritonitis, secondary to bile leak Recent cholecystitis, status post cholecystostomy Status post cholecystectomy and appendectomy done on this admission Acute encephalopathy, likely multifactorial, metabolic and septic Acute delirium Continue IV Zosyn 3.375 g every 8 hours Pain control with oral Tylenol PRN, oral Percocet as needed, IV dilaudid PRN, monitor for sedation Agitation control with haldol/ativan PRN, also on Seroquel 50 twice daily Intertrigo On IV fluconazole 200 mg daily Protein Calorie Malnutrition, moderate Continue TFs May need PEG tube if family wants to continue full care Ventilatory dependent respiratory failure after surgery, resolved Acute hypoxic respiratory failure Bilateral pleural effusion CTA negative for PE krupa hypoxic respiratory failure on nasal cannula On IV Lasix 40 daily, diuresing well, monitor renal function and electrolytes Type 2 diabetes with hyperglycemia Continue Levemir 20 units daily, sliding scale insulin every 6 hours, monitor for hypoglycemia Hyperglycemia likely in the setting of D5 water, which has now been discontinued Acute kidney injury, resolved Acute blood loss anemia likely from surgery, resolved Hemoglobin stable Coronary disease Chronic diastolic heart failure Recent TAVR -Cardiology on board -Stable -Resume home cardiac meds Chronic conditions COPD Diabetes mellitus Hypertension GERD BPH Dementia Depression anxiety -Stable DVT ppx: SQ heparin Code status: Anticipated discharge place: Pending clinical course Anticipated discharge time: Pending clinical course Objective - Vital Signs Vital signs: Vital Signs Temp 98.0 F 01/31/24 04:00 Pulse 81 01/31/24 07:00 Resp 26 H 01/31/24 07:00 BP 152/55 01/31/24 07:00 Pulse Ox 96 01/31/24 08:24 FiO2 50 01/25/24 14:50 Intake & Output 01/30/24 01/31/24 01/31/24 18:59 06:59 18:59 Intake Total 2225 2005 155 Output Total 1800 775 30 Balance 425 1230 125 Weight 98 kg 97.6 kg Intake: IV 1300 1200 100 Dextrose 5% in Water 1, 1200 1200 100 000 ml @ 100 mls/hr IV . Q10H [facility] Rx#:[id number] Piperacillin-Tazobactam 3 100 .375 gm In Sodium Chloride 0.9% 100 ml @ 25 mls/hr IVPB Q8HR [facility] Rx# :[id number] Tube Feeding 825 715 55 Other 100 90 Output: Drainage 370 190 Right Lower Abdomen 370 190 Urine 1430 585 30 Other: Voiding Method Indwelling Catheter Indwelling Catheter # Bowel Movements 0 0 - Labs CBC & Chem 7: 01/31/24 04:37 01/31/24 04:37 Labs: Abnormal Lab Results - Last 24 Hours (Table) 01/30/24 01/30/24 01/30/24 Range/Units 11:47 16:07 23:17 WBC (3.8-10.6) k/uL RBC (4.30-5.90) m/uL Hgb (13.0-17.5) gm/dL Hct (39.0-53.0) % RDW (11.5-15.5) % Neutrophils # (1.3-7.7) k/uL Chloride (98-107) mmol/L BUN (9-20) mg/dL Glucose (74-99) mg/dL POC Glucose (mg/dL) 328 H 312 H 357 H (70-110) mg/dL Calcium (8.4-10.2) mg/dL Alkaline Phosphatase (38-126) U/L Total Protein (6.3-8.2) g/dL Albumin (3.5-5.0) g/dL 01/31/24 01/31/24 01/31/24 Range/Units 04:37 04:37 05:38 WBC 12.0 H (3.8-10.6) k/uL RBC 3.73 L (4.30-5.90) m/uL Hgb 10.1 L (13.0-17.5) gm/dL Hct 32.5 L (39.0-53.0) % RDW 17.3 H (11.5-15.5) % Neutrophils # 9.8 H (1.3-7.7) k/uL Chloride 113 H (98-107) mmol/L BUN 29 H (9-20) mg/dL Glucose 275 H (74-99) mg/dL POC Glucose (mg/dL) 336 H (70-110) mg/dL Calcium 6.8 L (8.4-10.2) mg/dL Alkaline Phosphatase 136 H (38-126) U/L Total Protein 4.8 L (6.3-8.2) g/dL Albumin 1.9 L (3.5-5.0) g/dL Microbiology - Last 24 Hours (Table) 01/26/24 20:53 Stool Culture - Final Stool
--- NOTE | 2024-01-31 11:49 | P.PN ---
Subjective Progress Note Date: 01/31/24 I am seeing this patient in consultation today 01/24/2024 in the intensive care unit as he is status postoperative day #1 following a laparoscopic cholecystectomy converted to open surgery with open appendectomy. Patient is a 78-year-old white male with past medical history significant for recent transca theter aortic valve replacement on November 30, previous CABG, diabetes mellitus, hyperlipidemia, hypertension, peripheral vascular disease, BPH, advanced dementia, and recent inpatient hospitalization 12/23/2023 through 01/02/2024 for acute cholecystitis status post CT-guided percutaneous cholecystostomy tube placement on 12/28/2023. Patient was initially discharged home with home health care, but somehow ended up at [facility] [place] the [place] rehab. Patient sent into the emergency room on 01/22/2024 with intractable nausea and vomiting and abdominal pain. Patient is currently intubated to mechanical ventilator, and I am unable to provide elicit any information for this reason. An abdominal /pelvis CT taken on admission showed few scattered foci of gas in the upper abdomen which could be secondary to partial retraction of the percutaneous cholecystostomy tube with sideport open to the peritoneal cavity. There was cholecystitis involving the transverse colon to the rectum. Dilated appendix which was new from previous imaging on 12/25/2023. And a small left pleural effusion. Patient was taken to the operating room on 01/23/2024 was found to have cholecystitis with focal gangrenous changes and bile leak. Patient underwent a laparoscopic cholecystectomy which was converted to open procedure with open appendectomy. Postoperatively, the patient was left on the mechanical ventilator and transferred to the intensive care unit. Patient is currently in room 258, he is intubated, and on the mechanical ventilator. He is sedated on propofol which is infusing at 20 mcg/kg/min. He is synchronous with the mechanical ventilator. He wakes with tactile stimulus, but does not follow any commands. Postoperative chest x-ray shows endotracheal tube above the karly, and orogastric tube coursing below the diaphragm, and a small left pleural effusion. No other acute cardiopulmonary pathology noted. Postoperative ABG as a PaO2 greater than 400, pCO2 of 36, and pH of 7.35. This was done on ventilator settings including assist-control, respiratory rate 18, tidal volume 450, FiO2 100%, and PEEP of 5. FiO2 was sent weaned to 40%. I am told the patient had an EBL of approximately 350 mL and was given 1 L normal saline bolus intraoperatively. Blood pressure remains normotensive. Not requiring any vasopressors. Normal saline is infusing at 75 mL/h. Postoperative CBC is a WBC count of 17, hemoglobin stable at 11.8, hematocrit 37, platelets 263. Postoperative BMP includes a sodium 135, potassium 3.8, chloride 104, serum bicarb 21, BUN 21, creatinine 1.36, glucose 200. Lactic acid level 0.9. Patient does have a indwelling urinary catheter draining 40 to 50 mL of urine per hour. Urinalysis has small leukocyte Estrace and pyuria. Patient is empirically covered on Zosyn for his abdomen. He is afebrile. Prognosis is guarded. Patient is being monitored in the intensive care unit. Patient was reevaluated today on 01/25/2024, patient remains in the ICU, he is on assist-control rate of 18 tidal volume 450 FiO2 40% and PEEP of 5. ABG showed a pO2 of 100 pCO2 32 pH of 7.37. Overnight the patient was kept on Precedex, and he is on 0.4 mcg/kg/h. Patient is on IV fluid at 75 cc/h vital HP at 20 cc/h. Urine output is excellent about 30 to 50 cc/h. Patient is not agitated, he is not restless, seems to be calm, hence I am planning to place the patient on pre ssure support of 10 and CPAP, and if tolerated may consider weaning and extubating the patient. Chest x-ray showed mild pulmonary vascular congestion, and retrocardiac atelectasis, patient will be given a dose of Lasix, and his IV fluid was cut down to KVO WBC count today is 16.2 hemoglobin is 8.5 basic metabolic profile is normalHowever bicarb is 12 BUN is 25 creatinine 1.27 Patient was reevaluated today on 01/26/2024, patient was extubated yesterday, he tolerated extubation well, patient is now on Precedex at 0.6, patient is also on Dilaudid and Zosyn as well as Ativan added today. Patient gets agitated, he does have underlying dementia, and keeps trying to get out of bed. Hence we will continue the Precedex today, will add Ativan 0.5 mg IV push every 2 hours as needed. Patient remains on 2 L nasal cannula with O2 sats of 98%. His x-ray showed cardiomegaly and left basilar atelectasis Patient was reevaluated today on 01/27/2024, patient is doing fairly well except for his episodes of agitation, patient has severe underlying dementia, and takes a number of people to keep him calm, patient yesterday was on Precedex and Ativan, developed a bit of obtundation, and Precedex was discontinued today the patient is receiving Ativan as needed, nonetheless, patient continues to have si gnificant agitation. WBC count is 18.7 hemoglobin is 11.3, basic metabolic profile is normal bicarb is 12 anion gap is 17 BUN is 27 creatinine 1.31. Chest x-ray from yesterday showed mostly left basilar atelectasis Reevaluate today on 01/28/2024, patient remains in the ICU, patient is kept in the ICU mostly because of his extreme agitation, and I do not believe the patient could be managed on the medical floor. Last night he was quite agitated, remains on Haldol and Ativan and Dilaudid. Today he seems to be Colmer, a nasogastric tube was placed in yesterday for nutritional support and now he is receiving Glucerna at 50 mL/h. IV fluid is running at 0.9 normal saline, patient still confused, gets agitated easily but seems to be calm today during my evaluation. WBC count is 14.9 hemoglobin 10.7 basic metabolic profile is normal renal profile noted, creatinine of 1.33 Patient was reevaluated today on 2023, patient remains in the ICU, patient had a temp of 101.6 last night, continues to have intermittent episodes of agitations requiring Haldol and Ativan, today we added Seroquel 25 mg twice daily to be given via nasogastric tube. Patient remains on enteral feeding Glucerna at 55 mL/h. Patient is still receiving IV fluid at 0.9 normal saline, 100 cc/h, urine output is marginal, hence I am recommending Lasix to be given. Blood sugar is high today above 400, patient will be started on Levemir insulin at 20 units/day and considering his sodium seems to be on the rise, I am recommending changing his IV fluid to D5W at 100 cc/h. Patient remains on Zosyn, the main issue with this patient seems to be issues related to his agitation and profound dementia. WBC count is 12.3 hemoglobin 10.3 basic metabolic profile showed sodium of 145 chloride 120 BUN is 29 creatinine 1.08, patient remains on sliding scale insulin and now he is on Levemir 20 units daily. The patient was seen today January 30, 2024 in follow-up in the intensive care unit. He is currently resting in bed. He is currently maintaining O2 saturations in the 90s on 6 L/min per nasal cannula. He did have fevers yesterday. He is currently afebrile. Dopplers of the lower extremity were negative for DVT. CT angiogram revealed no evidence of pulmonary embolism. There is moderate left and mild to moderate right pleural effusions. Adjacent lung opacities likely representing atelectasis. Nasogastric tube in place. Chest x-ray today reveals no acute pulmonary process. Blood cultures revealed no growth. Sputum culture revealed no growth. White count 9.7. Hemoglobin 10.1. Platelets 214. Sodium 145. Potassium 3.6. Bicarb 22. BUN 25. Creatinine 0.93. Glucose 250. The patient is seen today January 31, 2024 in follow-up in the intensive care unit. He is currently resting in bed. He is confused and pulling off his gown. lumber sales supervisor remains at the bedside. He is continued on oxygen at 6 L high flow nasal cannula to maintain O2 saturations in the 90s. Did have a temp of 102.2 last evening again. He is tachypneic. Nasogastric tube remains in place.'s x-ray reveals by basilar opacities. Blood culture revealed no growth. Sputum culture revealed no growth. White count 12.0. Hemoglobin 10.1. Platelets 201. Sodium 141. Potassium 4.3. Bicarb 22. BUN 29. Creatinine 0. 89. Glucose 275. Stool negative for to C. difficile toxin. He is continued on fluconazole and Zosyn. Remains on IV diuretics. Heparin for DVT prophylaxis. He is being nourished with Glucerna 1.5 at 55 MLS per hour which is goal. Objective - Vital Signs Vital signs: Vital Signs Temp 99.2 F 01/31/24 08:00 Pulse 88 01/31/24 11:00 Resp 19 01/31/24 11:00 BP 154/61 01/31/24 11:00 Pulse Ox 92 L 01/31/24 11:00 FiO2 50 01/25/24 14:50 Intake & Output 01/30/24 01/31/24 01/31/24 18:59 06:59 18:59 Intake Total 2225 2005 570 Output Total 1800 775 650 Balance 425 1230 -80 Weight 98 kg 97.6 kg Intake: IV 1300 1200 200 Dextrose 5% in Water 1, 1200 1200 200 000 ml @ 100 mls/hr IV . Q10H [facility] Rx#:[id number] Piperacillin-Tazobactam 3 100 .375 gm In Sodium Chloride 0.9% 100 ml @ 25 mls/hr IVPB Q8HR [facility] Rx# :[id number] Tube Feeding 825 715 330 Other 100 90 40 Output: Drainage 370 190 200 Right Lower Abdomen 370 190 200 Urine 1430 585 450 Other: Voiding Method Indwelling Catheter Indwelling Catheter # Bowel Movements 0 0 1 - Exam GENERAL EXAM: Reveals a 78-year-old obese male, restless, pulling off his gown, on 6 L high flow nasal cannula. HEAD: Normocephalic and atraumatic EYES: Normal reaction of pupils, equal size. NOSE: Clear with pink turbinates. Nasogastric tube in place. THROAT: No erythema or exudates. NECK: No masses, no JVD. CHEST: No chest wall deformity. LUNGS: Fine crackles at the bases. CVS: S1 and S2 normal with no audible murmur, regular rhythm. No extra heart sounds ABDOMEN: Postsurgical abdomen with lateral incisional dressing intact and dry. CENTRAL NERVOUS SYSTEM: Confused, gets agitated easily. EXTREMITIES: There is no peripheral edema, clubbing, or cyanosis. Peripheral pulses are intact. Chronic venous stasis changes noted lower extremity SKIN: No rashes - Labs CBC & Chem 7: 01/31/24 04:37 01/31/24 04:37 Labs: Abnormal Lab Results - Last 24 Hours (Table) 01/30/24 01/30/24 01/30/24 Range/Units 11:47 16:07 23:17 WBC (3.8-10.6) k/uL RBC (4.30-5.90) m/uL Hgb (13.0-17.5) gm/dL Hct (39.0-53.0) % RDW (11.5-15.5) % Neutrophils # (1.3-7.7) k/uL Chloride (98-107) mmol/L BUN (9-20) mg/dL Glucose (74-99) mg/dL POC Glucose (mg/dL) 328 H 312 H 357 H (70-110) mg/dL Calcium (8.4-10.2) mg/dL Alkaline Phosphatase (38-126) U/L Total Protein (6.3-8.2) g/dL Albumin (3.5-5.0) g/dL 01/31/24 01/31/24 01/31/24 Range/Units 04:37 04:37 05:38 WBC 12.0 H (3.8-10.6) k/uL RBC 3.73 L (4.30-5.90) m/uL Hgb 10.1 L (13.0-17.5) gm/dL Hct 32.5 L (39.0-53.0) % RDW 17.3 H (11.5-15.5) % Neutrophils # 9.8 H (1.3-7.7) k/uL Chloride 113 H (98-107) mmol/L BUN 29 H (9-20) mg/dL Glucose 275 H (74-99) mg/dL POC Glucose (mg/dL) 336 H (70-110) mg/dL Calcium 6.8 L (8.4-10.2) mg/dL Alkaline Phosphatase 136 H (38-126) U/L Total Protein 4.8 L (6.3-8.2) g/dL Albumin 1.9 L (3.5-5.0) g/dL Microbiology - Last 24 Hours (Table) 01/26/24 20:53 Stool Culture - Final Stool Assessment and Plan Assessment: Chronic cholecystitis status post open cholecystectomy and appendectomy 01/23/2024. Patient was extubated on 01/25/2024 Advanced dementia Acute blood loss anemia expected outcome of surgery Chronic kidney disease stage III History of aortic stenosis and previous TAVR History of coronary arteriosclerosis and previous CABG Chronic atrial fibrillation Dyslipidemia Type 2 diabetes History of BPH Benign essential hypertension Plan: The patient was seen and evaluated Chest x-ray, medications and labs reviewed Titrate down the FiO2 as tolerated Continue Glucerna feedings May require PEG tube insertion Dr. Maher did speak with the patient's daughter Sagrario The family will be deciding about [employer] lumber sales supervisor at the bedside We will continue to follow I have personally seen and examined the patient, performed the documentation and the assessment and plan as written. Number of minutes spent on the visit: 10.
[2024-01-31 12:01] LABS: Glucose,Whole Blood 331 mg/dL (70-110)
--- NOTE | 2024-01-31 12:33 | P.PN ---
Subjective Progress Note Date: 01/31/24 CHIEF COMPLAINT: Chronic cholecystitis HISTORY OF PRESENT ILLNESS: Postop day #8 status post laparoscopic cholecystectomy turned open and open appendectomy. Patient remains in the ICU. Patient continues to have confusion requiring Haldol and Seroquel for his agitation. Patient continues to have a bedside sitter. Patient is not eating. He is receiving tube feeds for nutrition support. He did have a temp of 102 last night white count did go up from 9.7-12. He is having loose stools. Stool for C. difficile was negative. The diarrhea has decreased. Awaiting patient's family decision regarding comfort care and the possibility of PEG tube placement for nutrition support. Patient's JUNE drain output still increased at 200 mL more serous in color PHYSICAL EXAM: VITAL SIGNS: Reviewed. GENERAL: no acute distress. ABDOMEN: Soft. Mildly distended. Incisional dressing was pulled back. Inc ision site clean dry and intact. ASSESSMENT: 1. Chronic cholecystitis with focal gangrenous changes, bile leak 2. Dilated appendix 3. Increased drain output thought to be related to ascites from third spacing PLAN: -Awaiting family's decision regarding comfort care measures versus possible PEG tube placement for nutrition -Continue ICU management -Continue supportive care -Continue antibiotics -Continue tube feeds for nutrition support through the NG tube -Continue antibiotics -DVT prophylaxis subcu heparin Physician Crab Butcher note has been reviewed by physician. Signing provider agrees with the documented findings, assessment, and plan of care. I have personally seen and examined the patient, reviewed the DELIVERY MGR /PAs history, exam and MDM and agree with the assessment and plan as written. Based on total visit time, I have performed more than 50% of the visit. As above: Patient remains confused although per the family a little bit more alert today. He has diuresed well. JUNE serosanguineous. Patient having intermittent fevers. Etiology unclear. CAT scan from 2 days ago does show a small amount of fluid with an air pocket adjacent to the liver however suspect pulmonary source more likely. Family seems to be leaning towards DO NOT RESUSCITATE although still considering PEG tube placement. We discussed we would monitor his symptoms closely in the next 24 hours or so and proceed with PEG tube on or Tuesday if clinically improving. Objective - Vital Signs Vital signs: Vital Signs Temp 99.2 F 01/31/24 08:00 Pulse 88 01/31/24 11:00 Resp 19 03/12/24 11:00 BP 154/61 01/31/24 11:00 Pulse Ox 92 L 01/31/24 11:00 FiO2 50 01/25/24 14:50 Intake & Output 01/30/24 01/31/24 01/31/24 18:59 06:59 18:59 Intake Total 2225 2005 570 Output Total 1800 775 650 Balance 425 1230 -80 Weight 98 kg 97.6 kg Intake: IV 1300 1200 200 Dextrose 5% in Water 1, 1200 1200 200 000 ml @ 100 mls/hr IV . Q10H [facility] Rx#:[id number] Piperacillin-Tazobactam 3 100 .375 gm In Sodium Chloride 0.9% 100 ml @ 25 mls/hr IVPB Q8HR [facility] Rx# :[id number] Tube Feeding 825 715 330 Other 100 90 40 Output: Drainage 370 190 200 Right Lower Abdomen 370 190 200 Urine 1430 585 450 Other: Voiding Method Indwelling Catheter Indwelling Catheter # Bowel Movements 0 0 1 - Labs CBC & Chem 7: 01/31/24 04:37 01/31/24 04:37 Labs: Abnormal Lab Results - Last 24 Hours (Table) 01/30/24 01/30/24 01/31/24 Range/Units 16:07 23:17 04:37 WBC 12.0 H (3.8-10.6) k/uL RBC 3.73 L (4.30-5.90) m/uL Hgb 10.1 L (13.0-17.5) gm/dL Hct 32.5 L (39.0-53.0) % RDW 17.3 H (11.5-15.5) % Neutrophils # 9.8 H (1.3-7.7) k/uL Chloride (98-107) mmol/L BUN (9-20) mg/dL Glucose (74-99) mg/dL POC Glucose (mg/dL) 312 H 357 H (70-110) mg/dL Calcium (8.4-10.2) mg/dL Alkaline Phosphatase (38-126) U/L Total Protein (6.3-8.2) g/dL Albumin (3.5-5.0) g/dL 01/31/24 01/31/24 01/31/24 Range/Units 04:37 05:38 11:59 WBC (3.8-10.6) k/uL RBC (4.30-5.90) m/uL Hgb (13.0-17.5) gm/dL Hct (39.0-53.0) % RDW (11.5-15.5) % Neutrophils # (1.3-7.7) k/uL Chloride 113 H (98-107) mmol/L BUN 29 H (9-20) mg/dL Glucose 275 H (74-99) mg/dL POC Glucose (mg/dL) 336 H 331 H (70-110) mg/dL Calcium 6.8 L (8.4-10.2) mg/dL Alkaline Phosphatase 136 H (38-126) U/L Total Protein 4.8 L (6.3-8.2) g/dL Albumin 1.9 L (3.5-5.0) g/dL
[2024-01-31] MEDS: LOPERAMIDE 2 MG CAP PO PRN (15:52)
--- NOTE | 2024-01-31 17:10 | P.PN ---
Subjective Progress Note Date: 01/31/24 Principal diagnosis: Urinary leakage around Morales catheter The temperature sensing Morales catheter was advanced yesterday, but the patient continued to leak urine around the catheter. Therefore, the catheter was exchanged for a standard 16 Serbian Morales catheter earlier today by the nursing staff. There has reportedly been no drainage around the catheter since that time. Objective - Vital Signs Vital signs: Vital Signs Temp 99.5 F 01/31/24 12:00 Pulse 79 01/31/24 15:00 Resp 32 H 01/31/24 15:00 BP 130/54 01/31/24 15:00 Pulse Ox 90 L 01/31/24 15:00 FiO2 50 01/25/24 14:50 Intake & Output 01/30/24 01/31/24 01/31/24 18:59 06:59 18:59 Intake Total 2225 2005 875 Output Total 2390 154 6590 Balance 425 1230 -300 Weight 98 kg 97.6 kg Intake: IV 1300 1200 200 Dextrose 5% in Water 1, 1200 1200 200 000 ml @ 100 mls/hr IV . Q10H [facility] Rx#:[id number] Piperacillin-Tazobactam 3 100 .375 gm In Sodium Chloride 0.9% 100 ml @ 25 mls/hr IVPB Q8HR [facility] Rx# :[id number] Tube Feeding 825 715 605 Other 100 90 70 Output: Drainage 370 190 300 Right Lower Abdomen 370 190 300 Urine 1430 585 875 Other: Voiding Method Indwelling Catheter Indwelling Catheter # Bowel Movements 0 0 1 - Constitutional General appearance: Present: average body habitus, no acute distress - Psychiatric Psychiatric: Present: A&O x's 3 - Labs CBC & Chem 7: 01/31/24 04:37 01/31/24 04:37 Labs: Abnormal Lab Results - Last 24 Hours (Table) 01/30/24 01/31/24 01/31/24 Range/Units 23:17 04:37 04:37 WBC 12.0 H (3.8-10.6) k/uL RBC 3.73 L (4.30-5.90) m/uL Hgb 10.1 L (13.0-17.5) gm/dL Hct 32.5 L (39.0-53.0) % RDW 17.3 H (11.5-15.5) % Neutrophils # 9.8 H (1.3-7.7) k/uL Chloride 113 H (98-107) mmol/L BUN 29 H (9-20) mg/dL Glucose 275 H (74-99) mg/dL POC Glucose (mg/dL) 357 H (70-110) mg/dL Calcium 6.8 L (8.4-10.2) mg/dL Alkaline Phosphatase 136 H (38-126) U/L Total Protein 4.8 L (6.3-8.2) g/dL Albumin 1.9 L (3.5-5.0) g/dL 01/31/24 01/31/24 Range/Units 05:38 11:59 WBC (3.8-10.6) k/uL RBC (4.30-5.90) m/uL Hgb (13.0-17.5) gm/dL Hct (39.0-53.0) % RDW (11.5-15.5) % Neutrophils # (1.3-7.7) k/uL Chloride (98-107) mmol/L BUN (9-20) mg/dL Glucose (74-99) mg/dL POC Glucose (mg/dL) 336 H 331 H (70-110) mg/dL Calcium (8.4-10.2) mg/dL Alkaline Phosphatase (38-126) U/L Total Protein (6.3-8.2) g/dL Albumin (3.5-5.0) g/dL Assessment and Plan (1) Malfunction of Morales catheter Current Visit: Yes Status: Acute Code(s): T83.011A - BREAKDOWN (MECHANICAL) OF INDWELLING URETHRAL CATHETER, INIT SNOMED Code(s): 875782280 Plan: At this time, the Morales catheter is draining well and there is no leakage around the catheter. The catheter may be removed when no longer medically needed. Please notify me if I can be of any further assistance.
[2024-01-31 17:38] LABS: Glucose,Whole Blood 217 mg/dL (70-110)
[2024-01-31] MEDS: FUROSEMIDE 10 MG/ML 4 ML VIAL IV STA (18:46)
--- NOTE | 2024-01-31 19:00 | XR ---
EXAMINATION TYPE: XR chest 1V portable DATE OF EXAM: 01/31/2024 Comparison: 01/31/2024 Clinical History: 78 year-old male shortness of breath, dyspnea, r/o aspiration Findings: Median sternotomy wires with post-CABG clips. Endovascular aortic valve replacement. NG tube courses below the diaphragm. Arteries bilaterally enlarged. Ongoing retrocardiac and left basilar opacity. So me residual patchy density also remains at the right base but is improving. No pleural effusion. Impression: Similar retrocardiac left basilar consolidation. Airspace disease at the right base, however, is impr oving.
[2024-01-31] MEDS: NYSTATIN 100,000 UNIT/GM POWD 15 GM TOPICAL SCH (21:05)
[2024-01-31] MEDS: NYSTATIN 100,000 UNIT/GM OINT 30 GM TUBE TOPICAL SCH (21:05)
[2024-01-31 23:44] LABS: Glucose,Whole Blood 275 mg/dL (70-110)
[2024-02-01 05:05] LABS: African American GFR (CKD) >90 (>60 ml/min/1.73 sqM); Anion Gap 5 mmol/L; Blood Urea Nitrogen 33 mg/dL (9-20); Calcium 7.3 mg/dL (8.4-10.2); Carbon Dioxide 26 mmol/L (22-30); Chloride 112 mmol/L (98-107); Glucose 234 mg/dL (74-99); Non-African American GFR(CKD) 79 (>60 ml/min/1.73 sqM); Sodium 143 mmol/L (137-145)
[2024-02-01 05:28] LABS: Anisocytosis Slight; Basophils # (A) 0.1 k/uL (0-0.2); Basophils % (A) 0 %; Eosinophils # (A) 0.3 k/uL (0-0.7); Eosinophils % (A) 1 %; HCT 30.9 % (39.0-53.0); HGB 9.7 gm/dL (13.0-17.5); Hypochromasia Marked; Lymphocytes # (A) 0.9 k/uL (1.0-4.8); Lymphocytes % (A) 5 %; MCH 27.4 pg (25.0-35.0); MCHC 31.5 g/dL (31.0-37.0); MCV 87.1 fL (80.0-100.0); Mean Platelet Volume 8.9; Monocytes # (A) 0.7 k/uL (0-1.0); Monocytes % (A) 4 %; Neutrophils # (A) 16.1 k/uL (1.3-7.7); Neutrophils % (A) 89 %; Platelet Count 195 k/uL (150-450); RBC 3.55 m/uL (4.30-5.90); RDW 16.9 % (11.5-15.5); WBC 18.2 k/uL (3.8-10.6)
[2024-02-01 06:19] LABS: Glucose,Whole Blood 287 mg/dL (70-110)
[2024-02-01] MEDS: FUROSEMIDE 40 MG TAB PO SCH (08:42)
[2024-02-01] MEDS: ACETAMINOPHEN TAB 500 MG TAB NG-TUBE PRN (09:02)
--- NOTE | 2024-02-01 10:19 | XR ---
EXAMINATION TYPE: XR chest 1V portable DATE OF EXAM: 02/01/2024 5:25 AM CLINICAL INDICATION:Male, 78 years old with history of increased oxygen demands; bilateral opacities; [facility] COMPARISON: Chest radiograph from one day prior. TECHNIQUE: XR chest 1V portable Frontal view of the chest. FINDINGS: Lungs/Pleura: Stable basilar airspace opacities. Evaluation slightly limited due to rotation alignmen t on exam. There is no evidence of pleural effusion, focal consolidation, or pneumothorax. Pulmonary vascularity: Unremarkable. Heart/mediastinum: Cardiomediastinal silhouette is enlarged and stable. Post aortic valve repair cristian nges. Musculoskeletal: No acute osseous pathology. Other findings: None Lines/Tubes: Nasogastric tube with its distal tip and side-port projecting under the diaphragm. IMPRESSION: Stable exam with retrocardiac left basilar consolidation. Airspace disease at the right base, however , is improving.
--- NOTE | 2024-02-01 10:26 | P.PN ---
Subjective Progress Note Date: 02/01/24 I am seeing this patient in consultation today 01/24/2024 in the intensive care unit as he is status postoperative day #1 following a laparoscopic cholecystectomy converted to open surgery with open appendectomy. Patient is a 78-year-old white male with past medical history significant for recent transca theter aortic valve replacement on November 30, previous CABG, diabetes mellitus, hyperlipidemia, hypertension, peripheral vascular disease, BPH, advanced dementia, and recent inpatient hospitalization 12/23/2023 through 01/02/2024 for acute cholecystitis status post CT-guided percutaneous cholecystostomy tube placement on 12/28/2023. Patient was initially discharged home with home health care, but somehow ended up at [facility] on the [place] for rehab. Patient sent into the emergency room on 01/22/2024 with intractable nausea and vomiting and abdominal pain. Patient is currently intubated to mechanical ventilator, and I am unable to provide elicit any information for this reason. An abdominal /pelvis CT taken on admission showed few scattered foci of gas in the upper abdomen which could be secondary to partial retraction of the percutaneous cholecystostomy tube with sideport open to the peritoneal cavity. There was cholecystitis involving the transverse colon to the rectum. Dilated appendix which was new from previous imaging on 12/25/2023. And a small left pleural effusion. Patient was taken to the operating room on 01/23/2024 was found to have cholecystitis with focal gangrenous changes and bile leak. Patient underwent a laparoscopic cholecystectomy which was converted to open procedure with open appendectomy. Postoperatively, the patient was left on the mechanical ventilator and transferred to the intensive care unit. Patient is currently in room 258, he is intubated, and on the mechanical ventilator. He is sedated on propofol which is infusing at 20 mcg/kg/min. He is synchronous with the mechanical ventilator. He wakes with tactile stimulus, but does not follow any commands. Postoperative chest x-ray shows endotracheal tube above the karly, and orogastric tube coursing below the diaphragm, and a small left pleural effusion. No other acute cardiopulmonary pathology noted. Postoperative ABG as a PaO2 greater than 400, pCO2 of 36, and pH of 7.35. This was done on ventilator settings including assist-control, respiratory rate 18, tidal volume 450, FiO2 100%, and PEEP of 5. FiO2 was sent weaned to 40%. I am told the patient had an EBL of approximately 350 mL and was given 1 L normal saline bolus intraoperatively. Blood pressure remains normotensive. Not requiring any vasopressors. Normal saline is infusing at 75 mL/h. Postoperative CBC is a WBC count of 17, hemoglobin stable at 11.8, hematocrit 37, platelets 263. Postoperative BMP includes a sodium 135, potassium 3.8, chloride 104, serum bicarb 21, BUN 21, creatinine 1.36, glucose 200. Lactic acid level 0.9. Patient does have a indwelling urinary catheter draining 40 to 50 mL of urine per hour. Urinalysis has small leukocyte Estrace and pyuria. Patient is empirically covered on Zosyn for his abdomen. He is afebrile. Prognosis is guarded. Patient is being monitored in the intensive care unit. Patient was reevaluated today on 01/25/2024, patient remains in the ICU, he is on assist-control rate of 18 tidal volume 450 FiO2 40% and PEEP of 5. ABG showed a pO2 of 100 pCO2 32 pH of 7.37. Overnight the patient was kept on Precedex, and he is on 0.4 mcg/kg/h. Patient is on IV fluid at 75 cc/h vital HP at 20 cc/h. Urine output is excellent about 30 to 50 cc/h. Patient is not agitated, he is not restless, seems to be calm, hence I am planning to place the patient on pre ssure support of 10 and CPAP, and if tolerated may consider weaning and extubating the patient. Chest x-ray showed mild pulmonary vascular congestion, and retrocardiac atelectasis, patient will be given a dose of Lasix, and his IV fluid was cut down to KVO WBC count today is 16.2 hemoglobin is 8.5 basic metabolic profile is normalHowever bicarb is 12 BUN is 25 creatinine 1.27 Patient was reevaluated today on 01/26/2024, patient was extubated yesterday, he tolerated extubation well, patient is now on Precedex at 0.6, patient is also on Dilaudid and Zosyn as well as Ativan added today. Patient gets agitated, he does have underlying dementia, and keeps trying to get out of bed. Hence we will continue the Precedex today, will add Ativan 0.5 mg IV push every 2 hours as needed. Patient remains on 2 L nasal cannula with O2 sats of 98%. His x-ray showed cardiomegaly and left basilar atelectasis Patient was reevaluated today on 01/27/2024, patient is doing fairly well except for his episodes of agitation, patient has severe underlying dementia, and takes a number of people to keep him calm, patient yesterday was on Precedex and Ativan, developed a bit of obtundation, and Precedex was discontinued today the patient is receiving Ativan as needed, nonetheless, patient continues to have si gnificant agitation. WBC count is 18.7 hemoglobin is 11.3, basic metabolic profile is normal bicarb is 12 anion gap is 17 BUN is 27 creatinine 1.31. Chest x-ray from yesterday showed mostly left basilar atelectasis Reevaluate today on 01/28/2024, patient remains in the ICU, patient is kept in the ICU mostly because of his extreme agitation, and I do not believe the patient could be managed on the medical floor. Last night he was quite agitated, remains on Haldol and Ativan and Dilaudid. Today he seems to be Colmer, a nasogastric tube was placed in yesterday for nutritional support and now he is receiving Glucerna at 50 mL/h. IV fluid is running at 0.9 normal saline, patient still confused, gets agitated easily but seems to be calm today during my evaluation. WBC count is 14.9 hemoglobin 10.7 basic metabolic profile is normal renal profile noted, creatinine of 1.33 Patient was reevaluated today on 2023, patient remains in the ICU, patient had a temp of 101.6 last night, continues to have intermittent episodes of agitations requiring Haldol and Ativan, today we added Seroquel 25 mg twice daily to be given via nasogastric tube. Patient remains on enteral feeding Glucerna at 55 mL/h. Patient is still receiving IV fluid at 0.9 normal saline, 100 cc/h, urine output is marginal, hence I am recommending Lasix to be given. Blood sugar is high today above 400, patient will be started on Levemir insulin at 20 units/day and considering his sodium seems to be on the rise, I am recommending changing his IV fluid to D5W at 100 cc/h. Patient remains on Zosyn, the main issue with this patient seems to be issues related to his agitation and profound dementia. WBC count is 12.3 hemoglobin 10.3 basic metabolic profile showed sodium of 145 chloride 120 BUN is 29 creatinine 1.08, patient remains on sliding scale insulin and now he is on Levemir 20 units daily. The patient was seen today January 30, 2024 in follow-up in the intensive care unit. He is currently resting in bed. He is currently maintaining O2 saturations in the 90s on 6 L/min per nasal cannula. He did have fevers yesterday. He is currently afebrile. Dopplers of the lower extremity were negative for DVT. CT angiogram revealed no evidence of pulmonary embolism. There is moderate left and mild to moderate right pleural effusions. Adjacent lung opacities likely representing atelectasis. Nasogastric tube in place. Chest x-ray today reveals no acute pulmonary process. Blood cultures revealed no growth. Sputum culture revealed no growth. White count 9.7. Hemoglobin 10.1. Platelets 214. Sodium 145. Potassium 3.6. Bicarb 22. BUN 25. Creatinine 0.93. Glucose 250. The patient is seen today January 31, 2024 in follow-up in the intensive care unit. He is currently resting in bed. He is confused and pulling off his gown. scientific affairs manager remains at the bedside. He is continued on oxygen at 6 L high flow nasal cannula to maintain O2 saturations in the 90s. Did have a temp of 102.2 last evening again. He is tachypneic. Nasogastric tube remains in place.'s x-ray reveals by basilar opacities. Blood culture revealed no growth. Sputum culture revealed no growth. White count 12.0. Hemoglobin 10.1. Platelets 201. Sodium 141. Potassium 4.3. Bicarb 22. BUN 29. Creatinine 0. 89. Glucose 275. Stool negative for to C. difficile toxin. He is continued on fluconazole and Zosyn. Remains on IV diuretics. Heparin for DVT prophylaxis. He is being nourished with Glucerna 1.5 at 55 MLS per hour which is goal. The patient is seen today February 01, 2024 in follow-up in the intensive care unit. He is currently resting in bed. He is awake, asking for coffee. Confused to time and place. He is being nourished with Glucerna at 55 MLS per hour which is goal via NG tube. Maintaining O2 saturation in the 90s on 2 L/min per nasal cannula. White count 18.2. Hemoglobin 9.7. Platelets 195. Sodium 143. Potassium 5.0. Bicarb 26. BUN 33. Creatinine 0.94. Glucose 234. He remains on fluconazole and Zosyn. Remains on IV diuretics. Heparin for DVT prophylaxis. Chest x-ray reveals stable retrocardiac left basilar consolidation. Airspace disease in the right base is improving. Sputum culture revealed no growth. Blood culture revealed no growth. Objective - Vital Signs Vital signs: Vital Signs Temp 98.8 F 02/01/24 08:00 Pulse 76 02/01/24 10:00 Resp 27 H 02/01/24 10:00 BP 121/49 02/01/24 10:00 Pulse Ox 96 02/01/24 10:00 FiO2 50 01/25/24 14:50 Intake & Output 01/31/24 02/01/24 02/01/24 18:59 06:59 18:59 Intake Total 1125 805 370 Output Total 1735 1430 285 Balance -610 -625 85 Weight 58 kg Intake: IV 200 Dextrose 5% in Water 1, 200 000 ml @ 100 mls/hr IV . Q10H [facility] Rx#:[id number] Tube Feeding 825 715 220 Other 100 90 150 Output: Drainage 360 200 20 Right Lower Abdomen 360 200 20 Urine 1375 1230 265 Other: Voiding Method Indwelling Catheter Indwelling Catheter Indwelling Catheter # Bowel Movements 1 1 - Exam GENERAL EXAM: Reveals a 78-year-old obese male, oriented x 1, on 2 L nasal cannula. HEAD: Normocephalic and atraumatic EYES: Normal reaction of pupils, equal size. NOSE: Clear with pink turbinates. Nasogastric tube in place. THROAT: No erythema or exudates. NECK: No masses, no JVD. CHEST: No chest wall deformity. LUNGS: Fine crackles at the bases. CVS: S1 and S2 normal with no audible murmur, regular rhythm. No extra heart sounds ABDOMEN: Postsurgical abdomen with lateral incisional dressing intact and dry. JUNE drain intact CENTRAL NERVOUS SYSTEM: Confused, gets agitated easily. EXTREMITIES: There is no peripheral edema, clubbing, or cyanosis. Peripheral pulses are intact. Chronic venous stasis changes noted lower extremity SKIN: No rashes - Labs CBC & Chem 7: 02/01/24 04:17 03/13/24 04:17 Labs: Abnormal Lab Results - Last 24 Hours (Table) 01/31/24 01/31/24 01/31/24 Range/Units 11:59 17:37 23:42 WBC (3.8-10.6) k/uL RBC (4.30-5.90) m/uL Hgb (13.0-17.5) gm/dL Hct (39.0-53.0) % RDW (11.5-15.5) % Neutrophils # (1.3-7.7) k/uL Lymphocytes # (1.0-4.8) k/uL Chloride (98-107) mmol/L BUN (9-20) mg/dL Glucose (74-99) mg/dL POC Glucose (mg/dL) 331 H 217 H 275 H (70-110) mg/dL Calcium (8.4-10.2) mg/dL 02/01/24 02/01/24 02/01/24 Range/Units 04:17 04:17 06:18 WBC 18.2 H (3.8-10.6) k/uL RBC 3.55 L (4.30-5.90) m/uL Hgb 9.7 L (13.0-17.5) gm/dL Hct 30.9 L (39.0-53.0) % RDW 16.9 H (11.5-15.5) % Neutrophils # 16.1 H (1.3-7.7) k/uL Lymphocytes # 0.9 L (1.0-4.8) k/uL Chloride 112 H (98-107) mmol/L BUN 33 H (9-20) mg/dL Glucose 234 H (74-99) mg/dL POC Glucose (mg/dL) 287 H (70-110) mg/dL Calcium 7.3 L (8.4-10.2) mg/dL Assessment and Plan Assessment: Chronic cholecystitis status post open cholecystectomy and appendectomy 01/23/2024. Patient was extubated on 01/25/2024 Advanced dementia Acute blood loss anemia expected outcome of surgery Chronic kidney disease stage III History of aortic stenosis and previous TAVR History of coronary arteriosclerosis and previous CABG Chronic atrial fibrillation Dyslipidemia Type 2 diabetes History of BPH Benign essential hypertension Plan: The patient was seen and evaluated Chest x-ray, medications and labs reviewed Titrate down the FiO2 as tolerated Continue Glucerna feedings May require PEG tube insertion The family is still deciding about [employer] scientific affairs manager at the bedside We will continue to follow I have personally seen and examined the patient, performed the documentation and the assessment and plan as written. Number of minutes spent on the visit: 10.
--- NOTE | 2024-02-01 11:07 | P.PN ---
Subjective Progress Note Date: 02/01/24 Hospital Course: 78 year old M with PMH of COPD, DM, HTN, GERD, BPH, CAD with CABG, Dementia, Depression and anxiety, diastolic CHF, h/o TAVR presented to the ED for RLQ abdominal pain. Recently hospitalized from 12/23-01/02 for cholecystitis, NSTEMI and SAMANTHA. Found to be high risk for surgery, underwent cholecystostomy, discharged on PO antibiotics. He presents back to the hospital for RLQ pain. In the ED he underwent extensive evaluation. BP 127/75 HR 87 T 98.7F RR 18 94% on RA. CBC and CMP significant for WBC 18.3, Hg 12.8, bicarb 19, BUN 22, Cr 1.32, glu 133, alk phos 135, alb 3.4. Lactic acid 3.1. CT AP showed foci of gas in the upper abdomen, retraction of the percutaneous cholecystostomy tube, colitis of the transverse colon to the rectum and dilated appedix concerning for appendicitis. Underwent appendectomy and cholecystectomy by general surgery. After surgery, patient remained intub ated, transferred to medical ICU. He has since been extubated. Remained agitated, now improving. Subjective: Patient seen and examined at bedside. No sitter at bedside. Tolerating tube feeds. Had some bowel movements, making adequate urine. Respiratory function slowly improving. Still having significant pain. Mental status slightly improved. Morales catheter in place, tube feeds in place Pertinent positives and negatives as discussed above, a complete review of systems was performed and all other systems are negative. Vitals Signs Reviewed. General: Nontoxic, no distress, appears at stated age Derm: Warm, dry, scrotal erythema Head: Atraumatic, normocephalic, symmetric Eyes: EOMI, no lid lag, anicteric sclera Mouth: No lip lesion, mucus membranes moist Cardiovascular: S1S2 reg, no murmur Lungs: CTA bilateral, no rhonchi, no rales, no accessory muscle use, supplemental oxygen Abdominal: Soft, nontender to palpation, no guarding, no appreciable organomegaly, NG tube in place, JUNE drain in place Ext: No gross muscle atrophy, no contractures, pitting edema Neuro: Moving all extremities, following commands, alert and oriented x 1 Psych: Unable to assess Data Reviewed Today: Pertinent Labs: WBC 18.2, hemoglobin 9.7, potassium 5, creatinine 0.94, blood sugars range between 2 34-2 87 Imaging: Chest x-ray independently interpreted, shows bibasilar opacities., Similar to prior Assessment and Plan: Patient is critically ill, prognosis poor. Sepsis, present on admission Acute appendicitis Chemical peritonitis, secondary to bile leak Recent cholecystitis, status post cholecystostomy Status post cholecystectomy and appendectomy done on this admission Acute encephalopathy, likely multifactorial, metabolic and septic Acute delirium Continue IV Zosyn 3.375 g every 8 hours Pain control with oral Tylenol PRN, oral Percocet as needed, IV dilaudid PRN, monitor for sedation Agitation control with haldol/ativan PRN, also on Seroquel 50 twice daily Discussed management with general surgery, pending further decision making from family before proceeding with PEG tube Intertrigo On IV fluconazole 200 mg daily Protein Calorie Malnutrition, moderate Continue TFs Ventilatory dependent respiratory failure after surgery, resolved Acute hypoxic respiratory failure, improving Bilateral pleural effusion On oral Lasix 40 daily, diuresing well, monitor renal function and electrolytes Type 2 diabetes with hyperglycemia Levemir increased to 30 units daily, sliding scale insulin every 6 hours, monitor for hypoglycemia Acute kidney injury, resolved Acute blood loss anemia likely from surgery, resolved Hemoglobin stable Coronary disease Chronic diastolic heart failure Recent TAVR -Cardiology on board -Stable -Resume home cardiac meds Chronic conditions COPD Diabetes mellitus Hypertension GERD BPH Dementia Depression anxiety -Stable DVT ppx: SQ heparin Code status: Anticipated discharge place: Pending clinical course Anticipated discharge time: Pending clinical course Objective - Vital Signs Vital signs: Vital Signs Temp 98.8 F 02/01/24 08:00 Pulse 76 02/01/24 10:00 Resp 27 H 02/01/24 10:00 BP 121/49 02/01/24 10:00 Pulse Ox 96 02/01/24 10:00 FiO2 50 01/25/24 14:50 Intake & Output 01/31/24 02/01/24 02/01/24 18:59 06:59 18:59 Intake Total 1125 805 370 Output Total 1735 1430 285 Balance -610 -625 85 Weight 58 kg Intake: IV 200 Dextrose 5% in Water 1, 200 000 ml @ 100 mls/hr IV . Q10H [facility] Rx#:[id number] Tube Feeding 825 715 220 Other 100 90 150 Output: Drainage 360 200 20 Right Lower Abdomen 360 200 20 Urine 1375 1230 265 Other: Voiding Method Indwelling Catheter Indwelling Catheter Indwelling Catheter # Bowel Movements 1 1 - Labs CBC & Chem 7: 02/01/24 04:17 02/01/24 04:17 Labs: Abnormal Lab Results - Last 24 Hours (Table) 01/31/24 01/31/24 01/31/24 Range/Units 11:59 17:37 23:42 WBC (3.8-10.6) k/uL RBC (4.30-5.90) m/uL Hgb (13.0-17.5) gm/dL Hct (39.0-53.0) % RDW (11.5-15.5) % Neutrophils # (1.3-7.7) k/uL Lymphocytes # (1.0-4.8) k/uL Chloride (98-107) mmol/L BUN (9-20) mg/dL Glucose (74-99) mg/dL POC Glucose (mg/dL) 331 H 217 H 275 H (70-110) mg/dL Calcium (8.4-10.2) mg/dL 02/01/24 02/01/24 02/01/24 Range/Units 04:17 04:17 06:18 WBC 18.2 H (3.8-10.6) k/uL RBC 3.55 L (4.30-5.90) m/uL Hgb 9.7 L (13.0-17.5) gm/dL Hct 30.9 L (39.0-53.0) % RDW 16.9 H (11.5-15.5) % Neutrophils # 16.1 H (1.3-7.7) k/uL Lymphocytes # 0.9 L (1.0-4.8) k/uL Chloride 112 H (98-107) mmol/L BUN 33 H (9-20) mg/dL Glucose 234 H (74-99) mg/dL POC Glucose (mg/dL) 287 H (70-110) mg/dL Calcium 7.3 L (8.4-10.2) mg/dL
[2024-02-01 11:41] LABS: Glucose,Whole Blood 269 mg/dL (70-110)
--- NOTE | 2024-02-01 12:57 | P.PN ---
Subjective Progress Note Date: 02/01/24 CHIEF COMPLAINT: Chronic cholecystitis HISTORY OF PRESENT ILLNESS: Postop day #9 status post laparoscopic cholecystectomy turned open and open appendectomy. Patient remains in the ICU. Patient's bedside sitter was discontinued. He is still having some confusion the last agitated. He did have bowel movements. JUNE drain with 140 mL serous output through the night. He did have a low-grade temp of 100.1 this morning white count has gone up from 12-18. PHYSICAL EXAM: VITAL SIGNS: Reviewed. GENERAL: no acute distress. ABDOMEN: Soft. Mildly distended. Incisional dressing clean dry and intact. ASSESSMENT: 1. Chronic cholecystitis with focal gangrenous changes, bile leak 2. Dilated appendix 3. Increased drain output thought to be related to ascites from third spacing PLAN: -Awaiting family's decision regarding possible PEG tube placement for nutrition -Continue ICU management -Continue supportive care -Continue antibiotics -Continue tube feeds for nutrition support through the NG tube -Continue antibiotics -DVT prophylaxis subcu heparin Physician Metallurgist Process note has been reviewed by physician. Signing provider agrees with the documented findings, assessment, and plan of care. Objective - Vital Signs Vital signs: Vital Signs Temp 98.8 F 02/01/24 08:00 Pulse 76 02/01/24 10:00 Resp 27 H 02/01/24 10:00 BP 121/49 02/01/24 10:00 Pulse Ox 96 02/01/24 10:00 FiO2 50 01/25/24 14:50 Intake & Output 01/31/24 02/01/24 02/01/24 18:59 06:59 18:59 Intake Total 1125 805 680 Output Total 1735 1430 485 Balance -610 -625 195 Weight 58 kg Intake: IV 200 Dextrose 5% in Water 1, 200 000 ml @ 100 mls/hr IV . Q10H [facility] Rx#:[id number] Tube Feeding 825 715 330 Other 100 90 350 Output: Drainage 360 200 20 Right Lower Abdomen 360 200 20 Urine 1375 1230 465 Other: Voiding Method Indwelling Catheter Indwelling Catheter Indwelling Catheter # Bowel Movements 1 1 - Labs CBC & Chem 7: 02/01/24 04:17 02/01/24 04:17 Labs: Abnormal Lab Results - Last 24 Hours (Table) 01/31/24 01/31/24 02/01/24 Range/Units 17:37 23:42 04:17 WBC 18.2 H (3.8-10.6) k/uL RBC 3.55 L (4.30-5.90) m/uL Hgb 9.7 L (13.0-17.5) gm/dL Hct 30.9 L (39.0-53.0) % RDW 16.9 H (11.5-15.5) % Neutrophils # 16.1 H (1.3-7.7) k/uL Lymphocytes # 0.9 L (1.0-4.8) k/uL Chloride (98-107) mmol/L BUN (9-20) mg/dL Glucose (74-99) mg/dL POC Glucose (mg/dL) 217 H 275 H (70-110) mg/dL Calcium (8.4-10.2) mg/dL 02/01/24 02/01/24 02/01/24 Range/Units 04:17 06:18 11:39 WBC (3.8-10.6) k/uL RBC (4.30-5.90) m/uL Hgb (13.0-17.5) gm/dL Hct (39.0-53.0) % RDW (11.5-15.5) % Neutrophils # (1.3-7.7) k/uL Lymphocytes # (1.0-4.8) k/uL Chloride 112 H (98-107) mmol/L BUN 33 H (9-20) mg/dL Glucose 234 H (74-99) mg/dL POC Glucose (mg/dL) 287 H 269 H (70-110) mg/dL Calcium 7.3 L (8.4-10.2) mg/dL
[2024-02-01] MEDS: INSULIN DETEMIR (LEVEMIR) 100 UNIT/ML SYR SQ STA (13:21)
[2024-02-01 19:06] LABS: Glucose,Whole Blood 216 mg/dL (70-110)
[2024-02-01] MEDS: QUEtiapine 25 MG TAB PO SCH (21:46)
[2024-02-01 23:46] LABS: Glucose,Whole Blood 165 mg/dL (70-110)
[2024-02-02 04:22] LABS: Anisocytosis Slight; Basophils # (A) 0.1 k/uL (0-0.2); Basophils % (A) 0 %; Eosinophils # (A) 0.4 k/uL (0-0.7); Eosinophils % (A) 3 %; HCT 29.3 % (39.0-53.0); HGB 9.2 gm/dL (13.0-17.5); Hypochromasia Marked; Lymphocytes # (A) 0.9 k/uL (1.0-4.8); Lymphocytes % (A) 8 %; MCH 26.9 pg (25.0-35.0); MCHC 31.3 g/dL (31.0-37.0); MCV 85.9 fL (80.0-100.0); Mean Platelet Volume 8.1; Monocytes # (A) 0.4 k/uL (0-1.0); Monocytes % (A) 3 %; Neutrophils # (A) 10.5 k/uL (1.3-7.7); Neutrophils % (A) 85 %; Platelet Count 248 k/uL (150-450); RBC 3.41 m/uL (4.30-5.90); RDW 17.1 % (11.5-15.5); WBC 12.5 k/uL (3.8-10.6)
[2024-02-02 05:12] LABS: ALT 14 U/L (4-49); AST 35 U/L (17-59); African American GFR (CKD) >90 (>60 ml/min/1.73 sqM); Albumin 1.9 g/dL (3.5-5.0); Alkaline Phosphatase 154 U/L (38-126); Anion Gap 5 mmol/L; Blood Urea Nitrogen 35 mg/dL (9-20); Calcium 7.4 mg/dL (8.4-10.2); Carbon Dioxide 29 mmol/L (22-30); Chloride 113 mmol/L (98-107); Glucose 152 mg/dL (74-99); Magnesium 2.4 mg/dL (1.6-2.3); Non-African American GFR(CKD) 83 (>60 ml/min/1.73 sqM); Potassium 4.6 mmol/L (3.5-5.1); Sodium 147 mmol/L (137-145); Total Bilirubin 0.3 mg/dL (0.2-1.3)
[2024-02-02 05:51] LABS: Glucose,Whole Blood 163 mg/dL (70-110)
[2024-02-02] MEDS: INSULIN DETEMIR (LEVEMIR) 100 UNIT/ML SYR SQ SCH (08:23)
--- NOTE | 2024-02-02 10:20 | P.PN ---
Subjective Progress Note Date: 02/02/24 I am seeing this patient in consultation today 01/24/2024 in the intensive care unit as he is status postoperative day #1 following a laparoscopic cholecystectomy converted to open surgery with open appendectomy. Patient is a 78-year-old white male with past medical history significant for recent transca theter aortic valve replacement on November 30, previous CABG, diabetes mellitus, hyperlipidemia, hypertension, peripheral vascular disease, BPH, advanced dementia, and recent inpatient hospitalization 12/23/2023 through 01/02/2024 for acute cholecystitis status post CT-guided percutaneous cholecystostomy tube placement on 12/28/2023. Patient was initially discharged home with home health care, but somehow ended up at [facility] the [facility] for rehab. Patient sent into the emergency room on 01/22/2024 with intractable nausea and vomiting and abdominal pain. Patient is currently intubated to mechanical ventilator, and I am unable to provide elicit any information for this reason. An abdominal /pelvis CT taken on admission showed few scattered foci of gas in the upper abdomen which could be secondary to partial retraction of the percutaneous cholecystostomy tube with sideport open to the peritoneal cavity. There was cholecystitis involving the transverse colon to the rectum. Dilated appendix which was new from previous imaging on 12/25/2023. And a small left pleural effusion. Patient was taken to the operating room on 01/23/2024 was found to have cholecystitis with focal gangrenous changes and bile leak. Patient underwent a laparoscopic cholecystectomy which was converted to open procedure with open appendectomy. Postoperatively, the patient was left on the mechanical ventilator and transferred to the intensive care unit. Patient is currently in room 258, he is intubated, and on the mechanical ventilator. He is sedated on propofol which is infusing at 20 mcg/kg/min. He is synchronous with the mechanical ventilator. He wakes with tactile stimulus, but does not follow any commands. Postoperative chest x-ray shows endotracheal tube above the karly, and orogastric tube coursing below the diaphragm, and a small left pleural effusion. No other acute cardiopulmonary pathology noted. Postoperative ABG as a PaO2 greater than 400, pCO2 of 36, and pH of 7.35. This was done on ventilator settings including assist-control, respiratory rate 18, tidal volume 450, FiO2 100%, and PEEP of 5. FiO2 was sent weaned to 40%. I am told the patient had an EBL of approximately 350 mL and was given 1 L normal saline bolus intraoperatively. Blood pressure remains normotensive. Not requiring any vasopressors. Normal saline is infusing at 75 mL/h. Postoperative CBC is a WBC count of 17, hemoglobin stable at 11.8, hematocrit 37, platelets 263. Postoperative BMP includes a sodium 135, potassium 3.8, chloride 104, serum bicarb 21, BUN 21, creatinine 1.36, glucose 200. Lactic acid level 0.9. Patient does have a indwelling urinary catheter draining 40 to 50 mL of urine per hour. Urinalysis has small leukocyte Estrace and pyuria. Patient is empirically covered on Zosyn for his abdomen. He is afebrile. Prognosis is guarded. Patient is being monitored in the intensive care unit. Patient was reevaluated today on 01/25/2024, patient remains in the ICU, he is on assist-control rate of 18 tidal volume 450 FiO2 40% and PEEP of 5. ABG showed a pO2 of 100 pCO2 32 pH of 7.37. Overnight the patient was kept on Precedex, and he is on 0.4 mcg/kg/h. Patient is on IV fluid at 75 cc/h vital HP at 20 cc/h. Urine output is excellent about 30 to 50 cc/h. Patient is not agitated, he is not restless, seems to be calm, hence I am planning to place the patient on pre ssure support of 10 and CPAP, and if tolerated may consider weaning and extubating the patient. Chest x-ray showed mild pulmonary vascular congestion, and retrocardiac atelectasis, patient will be given a dose of Lasix, and his IV fluid was cut down to KVO WBC count today is 16.2 hemoglobin is 8.5 basic metabolic profile is normalHowever bicarb is 12 BUN is 25 creatinine 1.27 Patient was reevaluated today on 01/26/2024, patient was extubated yesterday, he tolerated extubation well, patient is now on Precedex at 0.6, patient is also on Dilaudid and Zosyn as well as Ativan added today. Patient gets agitated, he does have underlying dementia, and keeps trying to get out of bed. Hence we will continue the Precedex today, will add Ativan 0.5 mg IV push every 2 hours as needed. Patient remains on 2 L nasal cannula with O2 sats of 98%. His x-ray showed cardiomegaly and left basilar atelectasis Patient was reevaluated today on 01/27/2024, patient is doing fairly well except for his episodes of agitation, patient has severe underlying dementia, and takes a number of people to keep him calm, patient yesterday was on Precedex and Ativan, developed a bit of obtundation, and Precedex was discontinued today the patient is receiving Ativan as needed, nonetheless, patient continues to have si gnificant agitation. WBC count is 18.7 hemoglobin is 11.3, basic metabolic profile is normal bicarb is 12 anion gap is 17 BUN is 27 creatinine 1.31. Chest x-ray from yesterday showed mostly left basilar atelectasis Reevaluate today on 01/28/2024, patient remains in the ICU, patient is kept in the ICU mostly because of his extreme agitation, and I do not believe the patient could be managed on the medical floor. Last night he was quite agitated, remains on Haldol and Ativan and Dilaudid. Today he seems to be Colmer, a nasogastric tube was placed in yesterday for nutritional support and now he is receiving Glucerna at 50 mL/h. IV fluid is running at 0.9 normal saline, patient still confused, gets agitated easily but seems to be calm today during my evaluation. WBC count is 14.9 hemoglobin 10.7 basic metabolic profile is normal renal profile noted, creatinine of 1.33 Patient was reevaluated today on 2023, patient remains in the ICU, patient had a temp of 101.6 last night, continues to have intermittent episodes of agitations requiring Haldol and Ativan, today we added Seroquel 25 mg twice daily to be given via nasogastric tube. Patient remains on enteral feeding Glucerna at 55 mL/h. Patient is still receiving IV fluid at 0.9 normal saline, 100 cc/h, urine output is marginal, hence I am recommending Lasix to be given. Blood sugar is high today above 400, patient will be started on Levemir insulin at 20 units/day and considering his sodium seems to be on the rise, I am recommending changing his IV fluid to D5W at 100 cc/h. Patient remains on Zosyn, the main issue with this patient seems to be issues related to his agitation and profound dementia. WBC count is 12.3 hemoglobin 10.3 basic metabolic profile showed sodium of 145 chloride 120 BUN is 29 creatinine 1.08, patient remains on sliding scale insulin and now he is on Levemir 20 units daily. The patient was seen today January 30, 2024 in follow-up in the intensive care unit. He is currently resting in bed. He is currently maintaining O2 saturations in the 90s on 6 L/min per nasal cannula. He did have fevers yesterday. He is currently afebrile. Dopplers of the lower extremity were negative for DVT. CT angiogram revealed no evidence of pulmonary embolism. There is moderate left and mild to moderate right pleural effusions. Adjacent lung opacities likely representing atelectasis. Nasogastric tube in place. Chest x-ray today reveals no acute pulmonary process. Blood cultures revealed no growth. Sputum culture revealed no growth. White count 9.7. Hemoglobin 10.1. Platelets 214. Sodium 145. Potassium 3.6. Bicarb 22. BUN 25. Creatinine 0.93. Glucose 250. The patient is seen today January 31, 2024 in follow-up in the intensive care unit. He is currently resting in bed. He is confused and pulling off his gown. pt sitter remains at the bedside. He is continued on oxygen at 6 L high flow nasal cannula to maintain O2 saturations in the 90s. Did have a temp of 102.2 last evening again. He is tachypneic. Nasogastric tube remains in place.'s x-ray reveals by basilar opacities. Blood culture revealed no growth. Sputum culture revealed no growth. White count 12.0. Hemoglobin 10.1. Platelets 201. Sodium 141. Potassium 4.3. Bicarb 22. BUN 29. Creatinine 0. 89. Glucose 275. Stool negative for to C. difficile toxin. He is continued on fluconazole and Zosyn. Remains on IV diuretics. Heparin for DVT prophylaxis. He is being nourished with Glucerna 1.5 at 55 MLS per hour which is goal. The patient is seen today February 01, 2024 in follow-up in the intensive care unit. He is currently resting in bed. He is awake, asking for coffee. Confused to time and place. He is being nourished with Glucerna at 55 MLS per hour which is goal via NG tube. Maintaining O2 saturation in the 90s on 2 L/min per nasal cannula. White count 18.2. Hemoglobin 9.7. Platelets 195. Sodium 143. Potassium 5.0. Bicarb 26. BUN 33. Creatinine 0.94. Glucose 234. He remains on fluconazole and Zosyn. Remains on IV diuretics. Heparin for DVT prophylaxis. Chest x-ray reveals stable retrocardiac left basilar consolidation. Airspace disease in the right base is improving. Sputum culture revealed no growth. Blood culture revealed no growth. The patient is seen today February 02, 2024 in follow-up in the intensive care unit. He is awake. Restless. pt sitter remains at the bedside. He is maintaining O2 saturations in the 90s on 2 L/min per nasal cannula. Afebrile. Hemodynamically stable. White count 12.5. Hemoglobin 9.2. Platelets 248. Sodium 147. Potassium 4.3. Bicarb 29. BUN 35. Creatinine 0.90. Glucose 152. He remains on fluconazole and Zosyn. Remains on IV diuretics. Heparin for DVT prophylaxis. Currently in a positive balance. The plan is for PEG tube placement today. Currently NPO. He had been nourished with Glucerna at 55 MLS per hour which is his goal with 200 mL of free water flushes every 6 hours. Objective - Vital Signs Vital signs: Vital Signs Temp 98.9 F 02/02/24 08:00 Pulse 73 02/02/24 08:00 Resp 15 02/02/24 08:00 BP 157/60 02/02/24 08:00 Pulse Ox 96 02/02/24 08:00 FiO2 50 01/25/24 14:50 Intake & Output 02/01/24 02/02/24 02/02/24 18:59 06:59 18:59 Intake Total 1310 1155 100 Output Total 955 945 430 Balance 355 210 -330 Weight 58 kg 96.5 kg Intake: IV 100 200 100 Fluconazole in NaCl,Iso- 100 Osm 200 mg In Saline 1 100ml.bag @ 100 mls/hr IVPB DAILY@2300 [facility] Rx#: [id number] Piperacillin-Tazobactam 3 100 100 100 .375 gm In Sodium Chloride 0.9% 100 ml @ 25 mls/hr IVPB Q8HR [facility] Rx# :[id number] Tube Feeding 660 495 Other 550 460 Output: Drainage 140 230 60 Right Lower Abdomen 140 230 60 Urine [phone] Other: Voiding Method Indwelling Catheter Indwelling Catheter # Bowel Movements 1 1 - Exam GENERAL EXAM: Reveals a 78-year-old obese male, oriented x 1, resting fairly comfortably in bed, on 2 L nasal cannula. HEAD: Normocephalic and atraumatic EYES: Normal reaction of pupils, equal size. NOSE: Clear with pink turbinates. Nasogastric tube in place. THROAT: No erythema or exudates. NECK: No masses, no JVD. CHEST: No chest wall deformity. LUNGS: Fine crackles at the bases. CVS: S1 and S2 normal with no audible murmur, regular rhythm. No extra heart sounds ABDOMEN: Postsurgical abdomen with lateral incisional dressing intact and dry. CENTRAL NERVOUS SYSTEM: Confused, gets agitated easily. EXTREMITIES: There is no peripheral edema, clubbing, or cyanosis. Peripheral pulses are intact. Chronic venous stasis changes noted lower extremity SKIN: No rashes - Labs CBC & Chem 7: 02/02/24 03:50 02/02/24 03:50 Labs: Abnormal Lab Results - Last 24 Hours (Table) 02/01/24 02/01/24 02/01/24 Range/Units 11:39 19:05 23:44 WBC (3.8-10.6) k/uL RBC (4.30-5.90) m/uL Hgb (13.0-17.5) gm/dL Hct (39.0-53.0) % RDW (11.5-15.5) % Neutrophils # (1.3-7.7) k/uL Lymphocytes # (1.0-4.8) k/uL Sodium (137-145) mmol/L Chloride (98-107) mmol/L BUN (9-20) mg/dL Glucose (74-99) mg/dL POC Glucose (mg/dL) 269 H 216 H 165 H (70-110) mg/dL Calcium (8.4-10.2) mg/dL Magnesium (1.6-2.3) mg/dL Alkaline Phosphatase (38-126) U/L Total Protein (6.3-8.2) g/dL Albumin (3.5-5.0) g/dL 02/02/24 02/02/24 02/02/24 Range/Units 03:50 03:50 05:50 WBC 12.5 H (3.8-10.6) k/uL RBC 3.41 L (4.30-5.90) m/uL Hgb 9.2 L (13.0-17.5) gm/dL Hct 29.3 L (39.0-53.0) % RDW 17.1 H (11.5-15.5) % Neutrophils # 10.5 H (1.3-7.7) k/uL Lymphocytes # 0.9 L (1.0-4.8) k/uL Sodium 147 H (137-145) mmol/L Chloride 113 H (98-107) mmol/L BUN 35 H (9-20) mg/dL Glucose 152 H (74-99) mg/dL POC Glucose (mg/dL) 163 H (70-110) mg/dL Calcium 7.4 L (8.4-10.2) mg/dL Magnesium 2.4 H (1.6-2.3) mg/dL Alkaline Phosphatase 154 H (38-126) U/L Total Protein 5.0 L (6.3-8.2) g/dL Albumin 1.9 L (3.5-5.0) g/dL Assessment and Plan Assessment: Chronic cholecystitis status post open cholecystectomy and appendectomy 01/23/2024 . Patient was extubated on 01/25/2024 Advanced dementia Acute blood loss anemia expected outcome of surgery Chronic kidney disease stage III History of aortic stenosis and previous TAVR History of coronary arteriosclerosis and previous CABG Chronic atrial fibrillation Dyslipidemia Type 2 diabetes History of BPH Benign essential hypertension Plan: The patient was seen and evaluated Medications and labs reviewed Plan is for PEG tube placement today Continue the current treatment plan pt sitter at the bedside We will continue to follow I have personally seen and examined the patient, performed the documentation and the assessment and plan as written. Number of minutes spent on the visit: 10.
--- NOTE | 2024-02-02 11:19 | P.PN ---
Subjective Progress Note Date: 02/02/24 CHIEF COMPLAINT: Chronic cholecystitis HISTORY OF PRESENT ILLNESS: Postop day #10 status post laparoscopic cholecystectomy turned open and open appendectomy. Patient remains in the ICU. Patient is more awake and alert today. He knows where he is and can state his name. He does report abdominal pain at the incision site. No nausea or vomiting reported. Patient was able to tolerate ice chips. Afebrile. No evidence of tachycardia BP stable. WBC is down from 18.2-12.5. JUNE drain output 130 mL through the night and 60 mL this morning PHYSICAL EXAM: VITAL SIGNS: Reviewed. GENERAL: no acute distress. ABDOMEN: Soft. Incisional dressing clean dry and intact. Mild tenderness with palpation of incision. JUNE drain serosanguineous ASSESSMENT: 1. Chronic cholecystitis with focal gangrenous changes, bile leak 2. Dilated appendix 3. Increased drain output thought to be related to ascites from third spacing PLAN: -Patient is more awake and alert. Cancel PEG tube placement for today. Speech therapy consulted to assess patient swallow. -Continue ICU management -Continue supportive care -Continue antibiotics -DVT prophylaxis subcu heparin Physician Economic Developer note has been reviewed by physician. Signing provider agrees with the documented findings, assessment, and plan of care. I have personally seen and examined the patient, reviewed the ELECTRIC SHAVER MECHANIC /PAs history, exam and MDM and agree with the assessment and plan as written. Based on total visit time, I have performed more than 50% of the visit. As above: Patient doing much better today. He is awake and alert. Per the family he denied pain this afternoon. Continue diet as tolerated. Objective - Vital Signs Vital signs: Vital Signs Temp 98.9 F 02/02/24 08:00 Pulse 73 02/02/24 08:00 Resp 15 02/02/24 08:00 BP 157/60 02/02/24 08:00 Pulse Ox 96 02/02/24 08:00 FiO2 50 01/25/24 14:50 Intake & Output 02/01/24 02/02/24 02/02/24 18:59 06:59 18:59 Intake Total 1310 1155 100 Output Total 955 945 430 Balance 355 210 -330 Weight 58 kg 96.5 kg Intake: IV 100 200 100 Fluconazole in NaCl,Iso- 100 Osm 200 mg In Saline 1 100ml.bag @ 100 mls/hr IVPB DAILY@2300 [facility] Rx#: [id number] Piperacillin-Tazobactam 3 100 100 100 .375 gm In Sodium Chloride 0.9% 100 ml @ 25 mls/hr IVPB Q8HR [facility] Rx# :[id number] Tube Feeding 660 495 Other 550 460 Output: Drainage 140 230 60 Right Lower Abdomen 140 230 60 Urine [phone] Other: Voiding Method Indwelling Catheter Indwelling Catheter # Bowel Movements 1 1 - Labs CBC & Chem 7: 02/02/24 03:50 02/02/24 03:50 Labs: Abnormal Lab Results - Last 24 Hours (Table) 02/01/24 02/01/24 02/01/24 Range/Units 11:39 19:05 23:44 WBC (3.8-10.6) k/uL RBC (4.30-5.90) m/uL Hgb (13.0-17.5) gm/dL Hct (39.0-53.0) % RDW (11.5-15.5) % Neutrophils # (1.3-7.7) k/uL Lymphocytes # (1.0-4.8) k/uL Sodium (137-145) mmol/L Chloride (98-107) mmol/L BUN (9-20) mg/dL Glucose (74-99) mg/dL POC Glucose (mg/dL) 269 H 216 H 165 H (70-110) mg/dL Calcium (8.4-10.2) mg/dL Magnesium (1.6-2.3) mg/dL Alkaline Phosphatase (38-126) U/L Total Protein (6.3-8.2) g/dL Albumin (3.5-5.0) g/dL 02/02/24 02/02/24 02/02/24 Range/Units 03:50 03:50 05:50 WBC 12.5 H (3.8-10.6) k/uL RBC 3.41 L (4.30-5.90) m/uL Hgb 9.2 L (13.0-17.5) gm/dL Hct 29.3 L (39.0-53.0) % RDW 17.1 H (11.5-15.5) % Neutrophils # 10.5 H (1.3-7.7) k/uL Lymphocytes # 0.9 L (1.0-4.8) k/uL Sodium 147 H (137-145) mmol/L Chloride 113 H (98-107) mmol/L BUN 35 H (9-20) mg/dL Glucose 152 H (74-99) mg/dL POC Glucose (mg/dL) 163 H (70-110) mg/dL Calcium 7.4 L (8.4-10.2) mg/dL Magnesium 2.4 H (1.6-2.3) mg/dL Alkaline Phosphatase 154 H (38-126) U/L Total Protein 5.0 L (6.3-8.2) g/dL Albumin 1.9 L (3.5-5.0) g/dL
[2024-02-02 11:41] LABS: Glucose,Whole Blood 245 mg/dL (70-110)
--- NOTE | 2024-02-02 14:29 | P.PN ---
Subjective Progress Note Date: 02/02/24 78 year old M with PMH of COPD, DM, HTN, GERD, BPH, CAD with CABG, Dementia, Depression and anxiety, diastolic CHF, h/o TAVR presented to the ED for RLQ abdominal pain. Recently hospitalized from 12/23-01/02 for cholecystitis, NSTEMI and SAMANTHA. Found to be high risk for surgery, underwent cholecystostomy, di scharged on PO antibiotics. He presents back to the hospital for RLQ pain. In the ED he underwent extensive evaluation. BP 127/75 HR 87 T 98.7F RR 18 94% on RA. CBC and CMP significant for WBC 18.3, Hg 12.8, bicarb 19, BUN 22, Cr 1.32, glu 133, alk phos 135, alb 3.4. Lactic acid 3.1. CT AP showed foci of gas in the upper abdomen, retraction of the percutaneous cholecystostomy tube, colitis of the transverse colon to the rectum and dilated appedix concerning for appendicitis. Underwent appendectomy and cholecystectomy by general surgery. After surgery, patient remained intubated, transferred to medical ICU. He has since been extubated. Remained agitated, now improving. Patient seen and examined at bedside. No sitter at bedside. Initially plans were for PEG today but now on hold since mentation has improved. Plans for swallow eval and MBS. General: Nontoxic, no distress, appears at stated age Derm: Warm, dry, scrotal erythema Head: Atraumatic, normocephalic, symmetric Eyes: EOMI, no lid lag, anicteric sclera Mouth: No lip lesion, mucus membranes moist Cardiovascular: S1S2 reg, no murmur Lungs: CTA bilateral, no rhonchi, no rales, no accessory muscle use, supplemental oxygen Abdominal: Soft, nontender to palpation, no guarding, no appreciable organomegaly, NG tube in place, JUNE drain in place Ext: No gross muscle atrophy, no contractures, pitting edema Neuro: Moving all extremities, following commands, alert and oriented x 1 Psych: Unable to assess Data Reviewed Today: Pertinent Labs: WBC 12.5, hemoglobin 9.2, hematocrit 29.3, sodium 147, chloride 113, BUN 35, glucose 152, calcium 7.4, magnesium 2.4, alkaline phosphatase 154, albumin 1.9. Assessment and Plan: Patient is critically ill, prognosis poor. Sepsis, present on admission Acute appendicitis Chemical peritonitis, secondary to bile leak Recent cholecystitis, status post cholecystostomy Status post cholecystectomy and appendectomy done on this admission Acute encephalopathy, likely multifactorial, metabolic and septic Acute delirium Continue IV Zosyn 3.375 g every 8 hours Pain control with oral Tylenol PRN, oral Percocet as needed, IV dilaudid PRN, monitor for sedation Agitation control with haldol/ativan PRN, also on Seroquel 25mg PO QHS PEG on hold, plans for swallow evaluation and MBS as discussed with speech Intertrigo On IV fluconazole 200 mg daily Protein Calorie Malnutrition, moderate Continue TFs Ventilatory dependent respiratory failure after surgery, resolved Acute hypoxic respiratory failure, improving Bilateral pleural effusion On oral Lasix 40 daily, diuresing well, monitor renal function and electrolytes Type 2 diabetes with hyperglycemia Levemir 30 units daily, sliding scale insulin every 6 hours, monitor for hypoglycemia Acute kidney injury, resolved Acute blood loss anemia likely from surgery, resolved Hemoglobin stable Coronary disease Chronic diastolic heart failure Recent TAVR -Cardiology on board -Stable -Resume home cardiac meds Chronic conditions COPD Diabetes mellitus Hypertension GERD BPH Dementia Depression anxiety -Stable DVT ppx: SQ heparin Code status: FC Anticipated discharge place: Pending clinical course Anticipated discharge time: Pending clinical course Objective - Vital Signs Vital signs: Vital Signs Temp 98.9 F 02/02/24 08:00 Pulse 80 02/02/24 11:00 Resp 32 H 02/02/24 11:00 BP 159/69 02/02/24 11:00 Pulse Ox 95 02/02/24 11:00 FiO2 50 01/25/24 14:50 Intake & Output 02/01/24 02/02/24 02/02/24 18:59 06:59 18:59 Intake Total 1310 1155 100 Output Total 955 945 805 Balance 355 210 -705 Weight 58 kg 96.5 kg Intake: IV 100 200 100 Fluconazole in NaCl,Iso- 100 Osm 200 mg In Saline 1 100ml.bag @ 100 mls/hr IVPB DAILY@2300 [facility] Rx#: [id number] Piperacillin-Tazobactam 3 100 100 100 .375 gm In Sodium Chloride 0.9% 100 ml @ 25 mls/hr IVPB Q8HR [facility] Rx# :[id number] Tube Feeding 660 495 Other 550 460 Output: Drainage 140 230 60 Right Lower Abdomen 140 230 60 Urine [phone] Other: Voiding Method Indwelling Catheter Indwelling Catheter # Bowel Movements 1 1 - Labs CBC & Chem 7: 02/02/24 03:50 02/02/24 03:50 Labs: Abnormal Lab Results - Last 24 Hours (Table) 02/01/24 02/01/24 02/02/24 Range/Units 19:05 23:44 03:50 WBC 12.5 H (3.8-10.6) k/uL RBC 3.41 L (4.30-5.90) m/uL Hgb 9.2 L (13.0-17.5) gm/dL Hct 29.3 L (39.0-53.0) % RDW 17.1 H (11.5-15.5) % Neutrophils # 10.5 H (1.3-7.7) k/uL Lymphocytes # 0.9 L (1.0-4.8) k/uL Sodium (137-145) mmol/L Chloride (98-107) mmol/L BUN (9-20) mg/dL Glucose (74-99) mg/dL POC Glucose (mg/dL) 216 H 165 H (70-110) mg/dL Calcium (8.4-10.2) mg/dL Magnesium (1.6-2.3) mg/dL Alkaline Phosphatase (38-126) U/L Total Protein (6.3-8.2) g/dL Albumin (3.5-5.0) g/dL 02/02/24 02/02/24 02/02/24 Range/Units 03:50 05:50 11:39 WBC (3.8-10.6) k/uL RBC (4.30-5.90) m/uL Hgb (13.0-17.5) gm/dL Hct (39.0-53.0) % RDW (11.5-15.5) % Neutrophils # (1.3-7.7) k/uL Lymphocytes # (1.0-4.8) k/uL Sodium 147 H (137-145) mmol/L Chloride 113 H (98-107) mmol/L BUN 35 H (9-20) mg/dL Glucose 152 H (74-99) mg/dL POC Glucose (mg/dL) 163 H 245 H (70-110) mg/dL Calcium 7.4 L (8.4-10.2) mg/dL Magnesium 2.4 H (1.6-2.3) mg/dL Alkaline Phosphatase 154 H (38-126) U/L Total Protein 5.0 L (6.3-8.2) g/dL Albumin 1.9 L (3.5-5.0) g/dL Microbiology - Last 24 Hours (Table) 01/26/24 20:53 Stool Culture - Final Stool
--- NOTE | 2024-02-02 16:06 | FL ---
EXAMINATION TYPE: FL barium swallow w video DATE OF EXAM: 02/02/2024 CLINICAL HISTORY: 78-year-old male with dementia, possible need for PEG tube, rule out aspiration TECHNIQUE: Deglutition study is performed utilizing thin liquid barium, honey and nectar thick liqui d barium, barium thick applesauce, and barium coated cracker. COMPARISON: None. Total fluoroscopy time: 2 minutes 46 seconds. Total images: None. Real-time fluoroscopy support was provided to speech pathology. DOSE AREA PRODUCT (DAP) UGY*M,MGY*CM: 1121.24 FINDINGS: There is some limitation due to patient's inability to appropriate position. The oral and pharyngeal phases show satisfactory initiation and propagation with all modalities teste d. Normal mastication is seen with solid modalities tested. There is no evidence of penetration or aspiration with any modality tested. No significant pharyngeal residue was appreciated. IMPRESSION: Functional swallow. Please refer to speech therapist notes for further details if necessary.
[2024-02-02] MEDS: INSULIN ASPART (NovoLOG) 100 UNIT/ML VIAL SQ SCH (17:02)
[2024-02-02 20:37] LABS: Glucose,Whole Blood 348 mg/dL (70-110)
[2024-02-03 06:15] LABS: Glucose,Whole Blood 218 mg/dL (70-110)
[2024-02-03 08:50] LABS: Anisocytosis Slight; HCT 29.1 % (39.0-53.0); HGB 9.1 gm/dL (13.0-17.5); Hypochromasia Moderate; MCH 26.5 pg (25.0-35.0); MCHC 31.4 g/dL (31.0-37.0); MCV 84.4 fL (80.0-100.0); Mean Platelet Volume 7.9; Platelet Count 315 k/uL (150-450); RBC 3.45 m/uL (4.30-5.90); RDW 16.9 % (11.5-15.5); WBC 9.6 k/uL (3.8-10.6)
[2024-02-03 09:06] LABS: African American GFR (CKD) 85 (>60 ml/min/1.73 sqM); Anion Gap 5 mmol/L; Blood Urea Nitrogen 31 mg/dL (9-20); Calcium 7.6 mg/dL (8.4-10.2); Carbon Dioxide 28 mmol/L (22-30); Chloride 106 mmol/L (98-107); Glucose 174 mg/dL (74-99); Non-African American GFR(CKD) 74 (>60 ml/min/1.73 sqM); Potassium 4.1 mmol/L (3.5-5.1); Sodium 139 mmol/L (137-145)
--- NOTE | 2024-02-03 11:45 | P.PN ---
Subjective Progress Note Date: 02/03/24 I am seeing this patient in consultation today 01/24/2024 in the intensive care unit as he is status postoperative day #1 following a laparoscopic cholecystectomy converted to open surgery with open appendectomy. Patient is a 78-year-old white male with past medical history significant for recent transca theter aortic valve replacement on November 30, previous CABG, diabetes mellitus, hyperlipidemia, hypertension, peripheral vascular disease, BPH, advanced dementia, and recent inpatient hospitalization 12/23/2023 through 01/02/2024 for acute cholecystitis status post CT-guided percutaneous cholecystostomy tube placement on 12/28/2023. Patient was initially discharged home with home health care, but somehow ended up at [facility] on the [place] for rehab. Patient sent into the emergency room on 01/22/2024 with intractable nausea and vomiting and abdominal pain. Patient is currently intubated to mechanical ventilator, and I am unable to provide elicit any information for this reason. An abdominal /pelvis CT taken on admission showed few scattered foci of gas in the upper abdomen which could be secondary to partial retraction of the percutaneous cholecystostomy tube with sideport open to the peritoneal cavity. There was cholecystitis involving the transverse colon to the rectum. Dilated appendix which was new from previous imaging on 12/25/2023. And a small left pleural effusion. Patient was taken to the operating room on 01/23/2024 was found to have cholecystitis with focal gangrenous changes and bile leak. Patient underwent a laparoscopic cholecystectomy which was converted to open procedure with open appendectomy. Postoperatively, the patient was left on the mechanical ventilator and transferred to the intensive care unit. Patient is currently in room 258, he is intubated, and on the mechanical ventilator. He is sedated on propofol which is infusing at 20 mcg/kg/min. He is synchronous with the mechanical ventilator. He wakes with tactile stimulus, but does not follow any commands. Postoperative chest x-ray shows endotracheal tube above the karly, and orogastric tube coursing below the diaphragm, and a small left pleural effusion. No other acute cardiopulmonary pathology noted. Postoperative ABG as a PaO2 greater than 400, pCO2 of 36, and pH of 7.35. This was done on ventilator settings including assist-control, respiratory rate 18, tidal volume 450, FiO2 100%, and PEEP of 5. FiO2 was sent weaned to 40%. I am told the patient had an EBL of approximately 350 mL and was given 1 L normal saline bolus intraoperatively. Blood pressure remains normotensive. Not requiring any vasopressors. Normal saline is infusing at 75 mL/h. Postoperative CBC is a WBC count of 17, hemoglobin stable at 11.8, hematocrit 37, platelets 263. Postoperative BMP includes a sodium 135, potassium 3.8, chloride 104, serum bicarb 21, BUN 21, creatinine 1.36, glucose 200. Lactic acid level 0.9. Patient does have a indwelling urinary catheter draining 40 to 50 mL of urine per hour. Urinalysis has small leukocyte Estrace and pyuria. Patient is empirically covered on Zosyn for his abdomen. He is afebrile. Prognosis is guarded. Patient is being monitored in the intensive care unit. Patient was reevaluated today on 01/25/2024, patient remains in the ICU, he is on assist-control rate of 18 tidal volume 450 FiO2 40% and PEEP of 5. ABG showed a pO2 of 100 pCO2 32 pH of 7.37. Overnight the patient was kept on Precedex, and he is on 0.4 mcg/kg/h. Patient is on IV fluid at 75 cc/h vital HP at 20 cc/h. Urine output is excellent about 30 to 50 cc/h. Patient is not agitated, he is not restless, seems to be calm, hence I am planning to place the patient on pre ssure support of 10 and CPAP, and if tolerated may consider weaning and extubating the patient. Chest x-ray showed mild pulmonary vascular congestion, and retrocardiac atelectasis, patient will be given a dose of Lasix, and his IV fluid was cut down to KVO WBC count today is 16.2 hemoglobin is 8.5 basic metabolic profile is normalHowever bicarb is 12 BUN is 25 creatinine 1.27 Patient was reevaluated today on 01/26/2024, patient was extubated yesterday, he tolerated extubation well, patient is now on Precedex at 0.6, patient is also on Dilaudid and Zosyn as well as Ativan added today. Patient gets agitated, he does have underlying dementia, and keeps trying to get out of bed. Hence we will continue the Precedex today, will add Ativan 0.5 mg IV push every 2 hours as needed. Patient remains on 2 L nasal cannula with O2 sats of 98%. His x-ray showed cardiomegaly and left basilar atelectasis Patient was reevaluated today on 01/27/2024, patient is doing fairly well except for his episodes of agitation, patient has severe underlying dementia, and takes a number of people to keep him calm, patient yesterday was on Precedex and Ativan, developed a bit of obtundation, and Precedex was discontinued today the patient is receiving Ativan as needed, nonetheless, patient continues to have si gnificant agitation. WBC count is 18.7 hemoglobin is 11.3, basic metabolic profile is normal bicarb is 12 anion gap is 17 BUN is 27 creatinine 1.31. Chest x-ray from yesterday showed mostly left basilar atelectasis Reevaluate today on 01/28/2024, patient remains in the ICU, patient is kept in the ICU mostly because of his extreme agitation, and I do not believe the patient could be managed on the medical floor. Last night he was quite agitated, remains on Haldol and Ativan and Dilaudid. Today he seems to be [place], a nasogastric tube was placed in yesterday for nutritional support and now he is receiving Glucerna at 50 mL/h. IV fluid is running at 0.9 normal saline, patient still confused, gets agitated easily but seems to be calm today during my evaluation. WBC count is 14.9 hemoglobin 10.7 basic metabolic profile is normal renal profile noted, creatinine of 1.33 Patient was reevaluated today on 2023, patient remains in the ICU, patient had a temp of 101.6 last night, continues to have intermittent episodes of agitations requiring Haldol and Ativan, today we added Seroquel 25 mg twice daily to be given via nasogastric tube. Patient remains on enteral feeding Glucerna at 55 mL/h. Patient is still receiving IV fluid at 0.9 normal saline, 100 cc/h, urine output is marginal, hence I am recommending Lasix to be given. Blood sugar is high today above 400, patient will be started on Levemir insulin at 20 units/day and considering his sodium seems to be on the rise, I am recommending changing his IV fluid to D5W at 100 cc/h. Patient remains on Zosyn, the main issue with this patient seems to be issues related to his agitation and profound dementia. WBC count is 12.3 hemoglobin 10.3 basic metabolic profile showed sodium of 145 chloride 120 BUN is 29 creatinine 1.08, patient remains on sliding scale insulin and now he is on Levemir 20 units daily. The patient was seen today January 30, 2024 in follow-up in the intensive care unit. He is currently resting in bed. He is currently maintaining O2 saturations in the 90s on 6 L/min per nasal cannula. He did have fevers yesterday. He is currently afebrile. Dopplers of the lower extremity were negative for DVT. CT angiogram revealed no evidence of pulmonary embolism. There is moderate left and mild to moderate right pleural effusions. Adjacent lung opacities likely representing atelectasis. Nasogastric tube in place. Chest x-ray today reveals no acute pulmonary process. Blood cultures revealed no growth. Sputum culture revealed no growth. White count 9.7. Hemoglobin 10.1. Platelets 214. Sodium 145. Potassium 3.6. Bicarb 22. BUN 25. Creatinine 0.93. Glucose 250. The patient is seen today January 31, 2024 in follow-up in the intensive care unit. He is currently resting in bed. He is confused and pulling off his gown. taker off remains at the bedside. He is continued on oxygen at 6 L high flow nasal cannula to maintain O2 saturations in the 90s. Did have a temp of 102.2 last evening again. He is tachypneic. Nasogastric tube remains in place.'s x-ray reveals by basilar opacities. Blood culture revealed no growth. Sputum culture revealed no growth. White count 12.0. Hemoglobin 10.1. Platelets 201. Sodium 141. Potassium 4.3. Bicarb 22. BUN 29. Creatinine 0. 89. Glucose 275. Stool negative for to C. difficile toxin. He is continued on fluconazole and Zosyn. Remains on IV diuretics. Heparin for DVT prophylaxis. He is being nourished with Glucerna 1.5 at 55 MLS per hour which is goal. The patient is seen today February 01, 2024 in follow-up in the intensive care unit. He is currently resting in bed. He is awake, asking for coffee. Confused to time and place. He is being nourished with Glucerna at 55 MLS per hour which is goal via NG tube. Maintaining O2 saturation in the 90s on 2 L/min per nasal cannula. White count 18.2. Hemoglobin 9.7. Platelets 195. Sodium 143. Potassium 5.0. Bicarb 26. BUN 33. Creatinine 0.94. Glucose 234. He remains on fluconazole and Zosyn. Remains on IV diuretics. Heparin for DVT prophylaxis. Chest x-ray reveals stable retrocardiac left basilar consolidation. Airspace disease in the right base is improving. Sputum culture revealed no growth. Blood culture revealed no growth. The patient is seen today February 02, 2024 in follow-up in the intensive care unit. He is awake. Restless. taker off remains at the bedside. He is maintaining O2 saturations in the 90s on 2 L/min per nasal cannula. Afebrile. Hemodynamically stable. White count 12.5. Hemoglobin 9.2. Platelets 248. Sodium 147. Potassium 4.3. Bicarb 29. BUN 35. Creatinine 0.90. Glucose 152. He remains on fluconazole and Zosyn. Remains on IV diuretics. Heparin for DVT prophylaxis. Currently in a positive balance. The plan is for PEG tube placement today. Currently NPO. He had been nourished with Glucerna at 55 MLS per hour which is his goal with 200 mL of free water flushes every 6 hours. The patient is seen today February 03, 2024 in follow-up on the regular medical floor. He was transferred out of the intensive care unit yesterday. He is resting comfortably in bed. Maintaining O2 saturations in the 90s on 2 L/min per nasal cannula. Normal saline at 20 MLS per hour. He did undergo a barium swallow with video yesterday and was found to have a functional swallow evaluation. As for PEG tube placement were canceled. White count 9.6. Hemoglobin 9.1. Platelets 315. Sodium 139. Potassium 4.1. Bicarb 28. BUN 31. Creatinine 0.99. Glucose 174. He remains on fluconazole and Zosyn. Heparin for DVT prophylaxis. Remains on oral diuretics. He is currently on a full liquid diet. Objective - Vital Signs Vital signs: Vital Signs Temp 98 F 02/03/24 08:00 Pulse 86 02/03/24 08:00 Resp 30 H 02/03/24 08:00 BP 152/65 02/03/24 08:00 Pulse Ox 89 L 02/03/24 08:00 FiO2 50 01/25/24 14:50 Intake & Output 02/02/24 02/03/24 02/03/24 18:59 06:59 18:59 Intake Total 700 Output Total 1155 490 Balance -455 -490 Weight 85 kg Intake: IV 100 Piperacillin-Tazobactam 3 100 .375 gm In Sodium Chloride 0.9% 100 ml @ 25 mls/hr IVPB Q8HR [facility] Rx# :[id number] Oral 600 Output: Drainage 100 40 Right Lower Abdomen 100 40 Urine 1055 450 Other: Voiding Method Indwelling Catheter Indwelling Catheter - Exam GENERAL EXAM: Reveals a 78-year-old obese male, oriented x 1, resting com fortably in bed, on room air. HEAD: Normocephalic and atraumatic EYES: Normal reaction of pupils, equal size. NOSE: Clear with pink turbinates. Nasogastric tube in place. THROAT: No erythema or exudates. NECK: No masses, no JVD. CHEST: No chest wall deformity. LUNGS: Fine crackles at the bases. CVS: S1 and S2 normal with no audible murmur, regular rhythm. No extra heart sounds ABDOMEN: Postsurgical abdomen with lateral incisional dressing intact and dry. CENTRAL NERVOUS SYSTEM: Confused, gets agitated easily. EXTREMITIES: There is no peripheral edema, clubbing, or cyanosis. Peripheral pulses are intact. Chronic venous stasis changes noted lower extremity SKIN: No rashes - Labs CBC & Chem 7: 02/03/24 08:32 02/03/24 08:32 Labs: Abnormal Lab Results - Last 24 Hours (Table) 02/02/24 02/02/24 02/03/24 Range/Units 11:39 20:35 06:09 RBC (4.30-5.90) m/uL Hgb (13.0-17.5) gm/dL Hct (39.0-53.0) % RDW (11.5-15.5) % BUN (9-20) mg/dL Glucose (74-99) mg/dL POC Glucose (mg/dL) 245 H 348 H 218 H (70-110) mg/dL Calcium (8.4-10.2) mg/dL 02/03/24 02/03/24 Range/Units 08:32 08:32 RBC 3.45 L (4.30-5.90) m/uL Hgb 9.1 L (13.0-17.5) gm/dL Hct 29.1 L (39.0-53.0) % RDW 16.9 H (11.5-15.5) % BUN 31 H (9-20) mg/dL Glucose 174 H (74-99) mg/dL POC Glucose (mg/dL) (70-110) mg/dL Calcium 7.6 L (8.4-10.2) mg/dL Microbiology - Last 24 Hours (Table) 01/26/24 20:53 Stool Culture - Final Stool Assessment and Plan Assessment: Chronic cholecystitis status post open cholecystectomy and appendectomy 01/23/2024. Patient was extubated on 01/25/2024 Advanced dementia Acute blood loss anemia expected outcome of surgery Chronic kidney disease stage III History of aortic stenosis and previous TAVR History of coronary arteriosclerosis and previous CABG Chronic atrial fibrillation Dyslipidemia Type 2 diabetes History of BPH Benign essential hypertension Plan: The patient was seen and evaluated Medications and labs reviewed The patient passed a swallow evaluation PEG tube placement canceled Currently on full liquid diet taker off at the bedside Plan is for possibly [place] at discharge I have personally seen and examined the patient, performed the documentation and the assessment and plan as written. Number of minutes spent on the visit: 10.
[2024-02-03 11:46] LABS: Glucose,Whole Blood 121 mg/dL (70-110)
--- NOTE | 2024-02-03 11:47 | P.PN ---
Subjective Progress Note Date: 02/03/24 78 year old M with PMH of COPD, DM, HTN, GERD, BPH, CAD with CABG, Dementia, Depression and anxiety, diastolic CHF, h/o TAVR presented to the ED for RLQ abdominal pain. Recently hospitalized from 12/23-01/02 for cholecystitis, NSTEMI and SAMANTHA. Found to be high risk for surgery, underwent cholecystostomy, di scharged on PO antibiotics. He presents back to the hospital for RLQ pain. In the ED he underwent extensive evaluation. BP 127/75 HR 87 T 98.7F RR 18 94% on RA. CBC and CMP significant for WBC 18.3, Hg 12.8, bicarb 19, BUN 22, Cr 1.32, glu 133, alk phos 135, alb 3.4. Lactic acid 3.1. CT AP showed foci of gas in the upper abdomen, retraction of the percutaneous cholecystostomy tube, colitis of the transverse colon to the rectum and dilated appedix concerning for appendicitis. Underwent appendectomy and cholecystectomy by general surgery. After surgery, patient remained intubated, transferred to medical ICU. He has since been extubated. Remained agitated, now improving. Patient seen and examined at bedside. MBS done yesterday shows no signs of aspiration. Started on FLD. General: Nontoxic, no distress, appears at stated age Derm: Warm, dry, scrotal erythema Head: Atraumatic, normocephalic, symmetric Eyes: EOMI, no lid lag, anicteric sclera Mouth: No lip lesion, mucus membranes moist Cardiovascular: S1S2 reg, no murmur Lungs: CTA bilateral, no rhonchi, no rales, no accessory muscle use, supplemental oxygen Abdominal: Soft, nontender to palpation, no guarding, no appreciable or ganomegaly, NG tube in place, JUNE drain in place Ext: No gross muscle atrophy, no contractures, pitting edema Neuro: Moving all extremities, following commands, alert and oriented x 1 Psych: Unable to assess Data Reviewed Today: Pertinent Labs: Hemoglobin 9.1, hematocrit 29.1, BUN 31, glucose 174, calcium 7.6. Assessment and Plan: Sepsis, present on admission Acute appendicitis Chemical peritonitis, secondary to bile leak Recent cholecystitis, status post cholecystostomy Status post cholecystectomy and appendectomy done on this admission Acute encephalopathy, likely multifactorial, metabolic and septic Acute delirium Continue IV Zosyn 3.375 g every 8 hours Pain control with oral Tylenol PRN, oral Percocet as needed, IV dilaudid PRN, monitor for sedation Agitation control with haldol/ativan PRN, also on Seroquel 25mg PO QHS PEG on hold, plans for swallow evaluation and MBS as discussed with speech Intertrigo On IV fluconazole 200 mg daily Protein Calorie Malnutrition, moderate FLD and advance diet as tolerated Ventilatory dependent respiratory failure after surgery, resolved Acute hypoxic respiratory failure, improving Bilateral pleural effusion On oral Lasix 40 daily, diuresing well, monitor renal function and electrolytes Type 2 diabetes with hyperglycemia Levemir 30 units daily, sliding scale insulin every 6 hours, monitor for hypoglycemia Acute kidney injury, resolved Acute blood loss anemia likely from surgery, resolved Hemoglobin stable Coronary disease Chronic diastolic heart failure Recent TAVR -Cardiology on board -Stable -Resume home cardiac meds Chronic conditions COPD Diabetes mellitus Hypertension GERD BPH Dementia Depression anxiety -Stable DVT ppx: SQ heparin Code status: Anticipated discharge place: Pending clinical course Anticipated discharge time: Pending clinical course Objective - Vital Signs Vital signs: Vital Signs Temp 98 F 02/03/24 08:00 Pulse 86 02/03/24 08:00 Resp 30 H 02/03/24 08:00 BP 152/65 02/03/24 08:00 Pulse Ox 89 L 02/03/24 08:00 FiO2 50 01/25/24 14:50 Intake & Output 02/02/24 02/03/24 02/03/24 18:59 06:59 18:59 Intake Total 700 Output Total 1155 490 Balance -455 -490 Weight 85 kg Intake: IV 100 Piperacillin-Tazobactam 3 100 .375 gm In Sodium Chloride 0.9% 100 ml @ 25 mls/hr IVPB Q8HR [facility] Rx# :[id number] Oral 600 Output: Drainage 100 40 Right Lower Abdomen 100 40 Urine 1055 450 Other: Voiding Method Indwelling Catheter Indwelling Catheter - Labs CBC & Chem 7: 02/03/24 08:32 02/03/24 08:32 Labs: Abnormal Lab Results - Last 24 Hours (Table) 02/02/24 02/03/24 02/03/24 Range/Units 20:35 06:09 08:32 RBC 3.45 L (4.30-5.90) m/uL Hgb 9.1 L (13.0-17.5) gm/dL Hct 29.1 L (39.0-53.0) % RDW 16.9 H (11.5-15.5) % BUN (9-20) mg/dL Glucose (74-99) mg/dL POC Glucose (mg/dL) 348 H 218 H (70-110) mg/dL Calcium (8.4-10.2) mg/dL 02/03/24 Range/Units 08:32 RBC (4.30-5.90) m/uL Hgb (13.0-17.5) gm/dL Hct (39.0-53.0) % RDW (11.5-15.5) % BUN 31 H (9-20) mg/dL Glucose 174 H (74-99) mg/dL POC Glucose (mg/dL) (70-110) mg/dL Calcium 7.6 L (8.4-10.2) mg/dL Microbiology - Last 24 Hours (Table) 01/26/24 20:53 Stool Culture - Final Stool
--- NOTE | 2024-02-03 14:19 | P.PN ---
Subjective Progress Note Date: 02/03/24 CHIEF COMPLAINT: Chronic cholecystitis HISTORY OF PRESENT ILLNESS: Postop day #11 status post laparoscopic cholecystectomy turned open and open appendectomy. Patient transferred out of the ICU yesterday. Pain is controlled. Denies any nausea or vomiting had 2 bowel movements tolerating full liquids. Afebrile. WBC down from 12.5-9.6. PEG tube canceled yesterday. Patient currently tolerating diet. JUNE drain output down to 40ml PHYSICAL EXAM: VITAL SIGNS: Reviewed. GENERAL: no acute distress. ABDOMEN: Soft. Incisional dressing clean dry and intact. Mild tenderness with palpation of incision. JUNE drain serosanguineous Neuro patient is awake and alert answering questions. ASSESSMENT: 1. Chronic cholecystitis with focal gangrenous changes, bile leak 2. Dilated appendix 3. Increased drain output thought to be related to ascites from third spacing PLAN: -Advance diet as tolerated -Continue antibiotics -Continue supportive care -Continue pain management -Continue to work with physical therapy -DVT prophylaxis subcu heparin Physician Order Takers Supervisor note has been reviewed by physician. Signing provider agrees with the documented findings, assessment, and plan of care. Objective - Vital Signs Vital signs: Vital Signs Temp 98 F 02/03/24 08:00 Pulse 86 02/03/24 11:26 Resp 30 H 02/03/24 11:26 BP 152/65 02/03/24 08:00 Pulse Ox 89 L 02/03/24 08:00 FiO2 50 01/25/24 14:50 Intake & Output 02/02/24 02/03/24 02/03/24 18:59 06:59 18:59 Intake Total 700 Output Total 1155 490 100 Balance -455 -490 -100 Weight 85 kg Intake: IV 100 Piperacillin-Tazobactam 3 100 .375 gm In Sodium Chloride 0.9% 100 ml @ 25 mls/hr IVPB Q8HR [facility] Rx# :[id number] Oral 600 Output: Drainage 100 40 Right Lower Abdomen 100 40 Urine 1055 450 100 Other: Voiding Method Indwelling Catheter Indwelling Catheter Indwelling Catheter - Labs CBC & Chem 7: 02/03/24 08:32 02/03/24 08:32 Labs: Abnormal Lab Results - Last 24 Hours (Table) 02/02/24 02/03/24 02/03/24 Range/Units 20:35 06:09 08:32 RBC 3.45 L (4.30-5.90) m/uL Hgb 9.1 L (13.0-17.5) gm/dL Hct 29.1 L (39.0-53.0) % RDW 16.9 H (11.5-15.5) % BUN (9-20) mg/dL Glucose (74-99) mg/dL POC Glucose (mg/dL) 348 H 218 H (70-110) mg/dL Calcium (8.4-10.2) mg/dL 02/03/24 02/03/24 Range/Units 08:32 11:43 RBC (4.30-5.90) m/uL Hgb (13.0-17.5) gm/dL Hct (39.0-53.0) % RDW (11.5-15.5) % BUN 31 H (9-20) mg/dL Glucose 174 H (74-99) mg/dL POC Glucose (mg/dL) 121 H (70-110) mg/dL Calcium 7.6 L (8.4-10.2) mg/dL Microbiology - Last 24 Hours (Table) 01/26/24 20:53 Stool Culture - Final Stool
[2024-02-03 16:54] LABS: Glucose,Whole Blood 152 mg/dL (70-110)
[2024-02-03 20:02] LABS: Glucose,Whole Blood 146 mg/dL (70-110)
[2024-02-04 05:42] LABS: Glucose,Whole Blood 119 mg/dL (70-110)
[2024-02-04 07:55] LABS: Anisocytosis Slight; HCT 29.6 % (39.0-53.0); HGB 9.1 gm/dL (13.0-17.5); Hypochromasia Moderate; MCHC 30.6 g/dL (31.0-37.0); MCV 84.9 fL (80.0-100.0); Platelet Count 341 k/uL (150-450); RBC 3.49 m/uL (4.30-5.90); RDW 16.8 % (11.5-15.5); WBC 7.5 k/uL (3.8-10.6)
[2024-02-04 08:07] LABS: African American GFR (CKD) 74 (>60 ml/min/1.73 sqM); Anion Gap 6 mmol/L; Blood Urea Nitrogen 23 mg/dL (9-20); Calcium 7.5 mg/dL (8.4-10.2); Carbon Dioxide 26 mmol/L (22-30); Chloride 110 mmol/L (98-107); Glucose 115 mg/dL (74-99); Non-African American GFR(CKD) 64 (>60 ml/min/1.73 sqM); Potassium 4.1 mmol/L (3.5-5.1); Sodium 142 mmol/L (137-145)
--- NOTE | 2024-02-04 10:55 | P.PN ---
Subjective Progress Note Date: 02/04/24 78 year old M with PMH of COPD, DM, HTN, GERD, BPH, CAD with CABG, Dementia, Depression and anxiety, diastolic CHF, h/o TAVR presented to the ED for RLQ abdominal pain. Recently hospitalized from 12/23-01/02 for cholecystitis, NSTEMI and SAMANTHA. Found to be high risk for surgery, underwent cholecystostomy, discharged on PO antibiotics. He presents back to the hospital for RLQ pain that started on Tuesday. In the ED he underwent extensive evaluation. BP 127/75 HR 87 T 98.7F RR 18 94% on RA. CBC and CMP significant for WBC 18.3, Hg 12.8, bicarb 19, BUN 22, Cr 1.32, glu 133, alk phos 135, alb 3.4. Lactic acid 3.1. CT AP showed foci of gas in the upper abdomen, retraction of the percutaneous cholecystostomy tube, colitis of the transverse colon to the rectum and dilated appedix concerning for appendicitis. He underwent laparascopic cholecystectomy turned open appendectomy on 01/[address] Patel. Transferred to the ICU on a ventilator, extubated on 01/24. Post operative complications included extreme agitation and delirium, treated with Precedex drip and ativan. Precedex drip discontinued on 01/26. He continued to receive intermittent Ativan and Haldol. Started on Seroquel which seems to be improving his delirium. Developed a Tmax 102.2F on 01/29 while maintained on Zosyn since admission. Fluconazole added for intertrigo on 01/28. NG tube placed on 01/27 for nutritional support. Initially, plans were for PEG tube however ST evaluated, MBS shows no signs of aspiration, started on FLD. 02/03 Patient was seen and examined. Appears less agitated. Sleeping comfortably. Plans to discontinue Seroquel due to overseation. Able to eat 25% of his breakfast and lunch, refused dinner. His leukocytosis resolved as of yesterday. CBC Hg 9.1, Hct 29.6. BMP Cl 110, BUN 23, glu 115, Ca 7.5. Tmax 99.2F over the past 24H. Maintained on Zosyn (D12) and Fluconazole (D6). General: Nontoxic, no distress, appears at stated age Derm: Warm, dry, scrotal erythema Head: Atraumatic, normocephalic, symmetric Eyes: EOMI, no lid lag, anicteric sclera Mouth: No lip lesion, mucus membranes moist Cardiovascular: S1S2 reg, no murmur Lungs: CTA bilateral, no rhonchi, no rales, no accessory muscle use, supplementa l oxygen Abdominal: Soft, nontender to palpation, no guarding, no appreciable organomegaly, NG tube in place, JUNE drain in place Ext: No gross muscle atrophy, no contractures, pitting edema Neuro: Moving all extremities, following commands, alert and oriented x 1 Psych: Appears less agitated today Based on my assessment of this patient, this patient meets a high complexity level of care. Patient has an acute diagnosis of acute appendicitis and chronic gangrenous cholecystitis status post laparascopic cholecystectomy turned open appendectomy on 01/[address] Patel that poses a threat to life or bodily function. Post operative complications include extreme delirium and severe malnutrition. Acute encephalopathy: Multifactorial. ICU delirium. Sepsis. Narcotic induced Acute delirium: Haldol 2 mg IV Q4H PRN, Ativan 0.5 mg IV Q4H PRN anxiety of agitation. Discontinue Seroquel due to oversedation. Severe protein calorie malnutrition: ST and Dietitian on board. Passed MBS. Started on FLD. I do not believe he is getting adequate nutrition at this time. Plans for PEG on hold. Sepsis, present on admission Acute appendicitis: Continue Zosyn 3.375g IV TID (D12). Transition to Augmentin on discharge. Chemical peritonitis, secondary to bile leak Recent gangrenous cholecystitis Intertrigo: Continue Fluconazole 200 mg IV QD (D6). Acute hypoxic respiratory failure: Currently 93% on RA. Resolving. Diabetes mellitus with hyperglycemia: Highest POC glucose 218 over the past 24H. Levemir 30 units SQ QD. ISS. Accuchecks Q6H. Hypoglycemic precautions. Resolved: SAMANTHA, Acute blood loss anemia Chronic conditions: Diastolic CHF, h/o TAVR, COPD not in acute exacerbation, HTN, GERD, BPH, Dementia, Anxiety and Depression CODE STATUS: FULL CODE. DVT Prophylaxis: Heparin SQ. GI Prophylaxis: Protonix IV Designated medical POA if patient is not able to make medical decisions for themselves: I have reviewed the following hr business partner consultant notes: Surgery, Pulmonary. I have reviewed the results of the following tests: CBC. BMP. I have ordered the following tests: I have discussed the care of this patient with the following independent historian: PAOLA. I have independently interpreted the following test below: I have discussed the management of this patient with the following physician: Objective - Vital Signs Vital signs: Vital Signs Temp 99.2 F 02/04/24 00:39 Pulse 75 02/04/24 00:39 Resp 20 02/04/24 00:39 BP 152/68 02/04/24 00:39 Pulse Ox 93 L 02/04/24 00:39 FiO2 50 01/25/24 14:50 Intake & Output 02/03/24 02/04/24 02/04/24 18:59 06:59 18:59 Output Total 900 350 Balance -900 -350 Weight 83.5 kg Output: Urine 900 350 Other: Voiding Method Indwelling Catheter Indwelling Catheter # Bowel Movements 1 - Labs CBC & Chem 7: 02/04/24 07:04 02/04/24 07:04 Labs: Abnormal Lab Results - Last 24 Hours (Table) 02/03/24 02/03/24 02/03/24 Range/Units 08:32 08:32 11:43 RBC 3.45 L (4.30-5.90) m/uL Hgb 9.1 L (13.0-17.5) gm/dL Hct 29.1 L (39.0-53.0) % MCHC (31.0-37.0) g/dL RDW 16.9 H (11.5-15.5) % BUN 31 H (9-20) mg/dL Glucose 174 H (74-99) mg/dL POC Glucose (mg/dL) 121 H (70-110) mg/dL Calcium 7.6 L (8.4-10.2) mg/dL 02/03/24 02/03/24 02/04/24 Range/Units 16:52 20:00 05:37 RBC (4.30-5.90) m/uL Hgb (13.0-17.5) gm/dL Hct (39.0-53.0) % MCHC (31.0-37.0) g/dL RDW (11.5-15.5) % BUN (9-20) mg/dL Glucose (74-99) mg/dL POC Glucose (mg/dL) 152 H 146 H 119 H (70-110) mg/dL Calcium (8.4-10.2) mg/dL 02/04/24 Range/Units 07:04 RBC 3.49 L (4.30-5.90) m/uL Hgb 9.1 L (13.0-17.5) gm/dL Hct 29.6 L (39.0-53.0) % MCHC 30.6 L (31.0-37.0) g/dL RDW 16.8 H (11.5-15.5) % BUN (9-20) mg/dL Glucose (74-99) mg/dL POC Glucose (mg/dL) (70-110) mg/dL Calcium (8.4-10.2) mg/dL
[2024-02-04 10:58] VITALS: BMI 27.1
[2024-02-04 11:37] LABS: Glucose,Whole Blood 149 mg/dL (70-110)
--- NOTE | 2024-02-04 12:24 | P.PN ---
Subjective Progress Note Date: 02/04/24 I am seeing this patient in consultation today 01/24/2024 in the intensive care unit as he is status postoperative day #1 following a laparoscopic cholecystectomy converted to open surgery with open appendectomy. Patient is a 78-year-old white male with past medical history significant for recent transca theter aortic valve replacement on November 30, previous CABG, diabetes mellitus, hyperlipidemia, hypertension, peripheral vascular disease, BPH, advanced dementia, and recent inpatient hospitalization 12/23/2023 through 01/02/2024 for acute cholecystitis status post CT-guided percutaneous cholecystostomy tube placement on 12/28/2023. Patient was initially discharged home with home health care, but somehow ended up at [facility]hab. Patient sent into the emergency room on 01/22/2024 with intractable nausea and vomiting and abdominal pain. Patient is currently intubated to mechanical ventilator, and I am unable to provide elicit any information for this reason. An abdominal /pelvis CT taken on admission showed few scattered foci of gas in the upper abdomen which could be secondary to partial retraction of the percutaneous cholecystostomy tube with sideport open to the peritoneal cavity. There was cholecystitis involving the transverse colon to the rectum. Dilated appendix which was new from previous imaging on 12/25/2023. And a small left pleural effusion. Patient was taken to the operating room on 01/23/2024 was found to have cholecystitis with focal gangrenous changes and bile leak. Patient underwent a laparoscopic cholecystectomy which was converted to open procedure with open appendectomy. Postoperatively, the patient was left on the mechanical ventilator and transferred to the intensive care unit. Patient is currently in room 258, he is intubated, and on the mechanical ventilator. He is sedated on propofol which is infusing at 20 mcg/kg/min. He is synchronous with the mechanical ventilator. He wakes with tactile stimulus, but does not follow any commands. Postoperative chest x-ray shows endotracheal tube above the karly, and orogastric tube coursing below the diaphragm, and a small left pleural effusion. No other acute cardiopulmonary pathology noted. Postoperative ABG as a PaO2 greater than 400, pCO2 of 36, and pH of 7.35. This was done on ventilator settings including assist-control, respiratory rate 18, tidal volume 450, FiO2 100%, and PEEP of 5. FiO2 was sent weaned to 40%. I am told the patient had an EBL of approximately 350 mL and was given 1 L normal saline bolus intraoperatively. Blood pressure remains normotensive. Not requiring any vasopressors. Normal saline is infusing at 75 mL/h. Postoperative CBC is a WBC count of 17, hemoglobin stable at 11.8, hematocrit 37, platelets 263. Postoperative BMP includes a sodium 135, potassium 3.8, chloride 104, serum bicarb 21, BUN 21, creatinine 1.36, glucose 200. Lactic acid level 0.9. Patient does have a indwelling urinary catheter draining 40 to 50 mL of urine per hour. Urinalysis has small leukocyte Estrace and pyuria. Patient is empirically covered on Zosyn for his abdomen. He is afebrile. Prognosis is guarded. Patient is being monitored in the intensive care unit. Patient was reevaluated today on 01/25/2024, patient remains in the ICU, he is on assist-control rate of 18 tidal volume 450 FiO2 40% and PEEP of 5. ABG showed a pO2 of 100 pCO2 32 pH of 7.37. Overnight the patient was kept on Precedex, and he is on 0.4 mcg/kg/h. Patient is on IV fluid at 75 cc/h vital HP at 20 cc/h. Urine output is excellent about 30 to 50 cc/h. Patient is not agitated, he is not restless, seems to be calm, hence I am planning to place the patient on pre ssure support of 10 and CPAP, and if tolerated may consider weaning and extubating the patient. Chest x-ray showed mild pulmonary vascular congestion, and retrocardiac atelectasis, patient will be given a dose of Lasix, and his IV fluid was cut down to KVO WBC count today is 16.2 hemoglobin is 8.5 basic metabolic profile is normalHowever bicarb is 12 BUN is 25 creatinine 1.27 Patient was reevaluated today on 01/26/2024, patient was extubated yesterday, he tolerated extubation well, patient is now on Precedex at 0.6, patient is also on Dilaudid and Zosyn as well as Ativan added today. Patient gets agitated, he does have underlying dementia, and keeps trying to get out of bed. Hence we will continue the Precedex today, will add Ativan 0.5 mg IV push every 2 hours as needed. Patient remains on 2 L nasal cannula with O2 sats of 98%. His x-ray showed cardiomegaly and left basilar atelectasis Patient was reevaluated today on 01/27/2024, patient is doing fairly well except for his episodes of agitation, patient has severe underlying dementia, and takes a number of people to keep him calm, patient yesterday was on Precedex and Ativan, developed a bit of obtundation, and Precedex was discontinued today the patient is receiving Ativan as needed, nonetheless, patient continues to have si gnificant agitation. WBC count is 18.7 hemoglobin is 11.3, basic metabolic profile is normal bicarb is 12 anion gap is 17 BUN is 27 creatinine 1.31. Chest x-ray from yesterday showed mostly left basilar atelectasis Reevaluate today on 01/28/2024, patient remains in the ICU, patient is kept in the ICU mostly because of his extreme agitation, and I do not believe the patient could be managed on the medical floor. Last night he was quite agitated, remains on Haldol and Ativan and Dilaudid. Today he seems to be Col[place], a nasogastric tube was placed in yesterday for nutritional support and now he is receiving Glucerna at 50 mL/h. IV fluid is running at 0.9 normal saline, patient still confused, gets agitated easily but seems to be calm today during my evaluation. WBC count is 14.9 hemoglobin 10.7 basic metabolic profile is normal renal profile noted, creatinine of 1.33 Patient was reevaluated today on 2023, patient remains in the ICU, patient had a temp of 101.6 last night, continues to have intermittent episodes of agitations requiring Haldol and Ativan, today we added Seroquel 25 mg twice daily to be given via nasogastric tube. Patient remains on enteral feeding Glucerna at 55 mL/h. Patient is still receiving IV fluid at 0.9 normal saline, 100 cc/h, urine output is marginal, hence I am recommending Lasix to be given. Blood sugar is high today above 400, patient will be started on Levemir insulin at 20 units/day and considering his sodium seems to be on the rise, I am recommending changing his IV fluid to D5W at 100 cc/h. Patient remains on Zosyn, the main issue with this patient seems to be issues related to his agitation and profound dementia. WBC count is 12.3 hemoglobin 10.3 basic metabolic profile showed sodium of 145 chloride 120 BUN is 29 creatinine 1.08, patient remains on sliding scale insulin and now he is on Levemir 20 units daily. The patient was seen today January 30, 2024 in follow-up in the intensive care unit. He is currently resting in bed. He is currently maintaining O2 saturations in the 90s on 6 L/min per nasal cannula. He did have fevers yesterday. He is currently afebrile. Dopplers of the lower extremity were negative for DVT. CT angiogram revealed no evidence of pulmonary embolism. There is moderate left and mild to moderate right pleural effusions. Adjacent lung opacities likely representing atelectasis. Nasogastric tube in place. Chest x-ray today reveals no acute pulmonary process. Blood cultures revealed no growth. Sputum culture revealed no growth. White count 9.7. Hemoglobin 10.1. Platelets 214. Sodium 145. Potassium 3.6. Bicarb 22. BUN 25. Creatinine 0.93. Glucose 250. The patient is seen today January 31, 2024 in follow-up in the intensive care unit. He is currently resting in bed. He is confused and pulling off his gown. waist pleater remains at the bedside. He is continued on oxygen at 6 L high flow nasal cannula to maintain O2 saturations in the 90s. Did have a temp of 102.2 last evening again. He is tachypneic. Nasogastric tube remains in place.'s x-ray reveals by basilar opacities. Blood culture revealed no growth. Sputum culture revealed no growth. White count 12.0. Hemoglobin 10.1. Platelets 201. Sodium 141. Potassium 4.3. Bicarb 22. BUN 29. Creatinine 0. 89. Glucose 275. Stool negative for to C. difficile toxin. He is continued on fluconazole and Zosyn. Remains on IV diuretics. Heparin for DVT prophylaxis. He is being nourished with Glucerna 1.5 at 55 MLS per hour which is goal. The patient is seen today February 01, 2024 in follow-up in the intensive care unit. He is currently resting in bed. He is awake, asking for coffee. Confused to time and place. He is being nourished with Glucerna at 55 MLS per hour which is goal via NG tube. Maintaining O2 saturation in the 90s on 2 L/min per nasal cannula. White count 18.2. Hemoglobin 9.7. Platelets 195. Sodium 143. Potassium 5.0. Bicarb 26. BUN 33. Creatinine 0.94. Glucose 234. He remains on fluconazole and Zosyn. Remains on IV diuretics. Heparin for DVT prophylaxis. Chest x-ray reveals stable retrocardiac left basilar consolidation. Airspace disease in the right base is improving. Sputum culture revealed no growth. Blood culture revealed no growth. The patient is seen today February 02, 2024 in follow-up in the intensive care unit. He is awake. Restless. waist pleater remains at the bedside. He is maintaining O2 saturations in the 90s on 2 L/min per nasal cannula. Afebrile. Hemodynamically stable. White count 12.5. Hemoglobin 9.2. Platelets 248. Sodium 147. Potassium 4.3. Bicarb 29. BUN 35. Creatinine 0.90. Glucose 152. He remains on fluconazole and Zosyn. Remains on IV diuretics. Heparin for DVT prophylaxis. Currently in a positive balance. The plan is for PEG tube placement today. Currently NPO. He had been nourished with Glucerna at 55 MLS per hour which is his goal with 200 mL of free water flushes every 6 hours. The patient is seen today February 03, 2024 in follow-up on the regular medical floor. He was transferred out of the intensive care unit yesterday. He is resting comfortably in bed. Maintaining O2 saturations in the 90s on 2 L/min per nasal cannula. Normal saline at 20 MLS per hour. He did undergo a barium swallow with video yesterday and was found to have a functional swallow evaluation. As for PEG tube placement were canceled. White count 9.6. Hemoglobin 9.1. Platelets 315. Sodium 139. Potassium 4.1. Bicarb 28. BUN 31. Creatinine 0.99. Glucose 174. He remains on fluconazole and Zosyn. Heparin for DVT prophylaxis. Remains on oral diuretics. He is currently on a full liquid diet. The patient is seen today February 04, 2024 in follow-up on the regular medical floor. He is currently resting fairly comfortably in bed. Awake and alert. He is maintaining O2 saturations in the 90s on room air. He has normal staying at 20 mph. He still has a loose occasional cough. Afebrile. Hemodynamically stable. Blood, sputum and stool cultures all revealed no growth. White count 7.5. Hemoglobin 9.1. Platelets 341. Sodium 142. Potassium 4.1. Bicarb 26. BUN 23. Creatinine 1.12. Glucose 115 he remains on fluconazole. Remains on oral diuretics. Heparin for DVT prophylaxis. Continued on antibiotics in the form of Zosyn Objective - Vital Signs Vital signs: Vital Signs Temp 98 F 02/04/24 07:15 Pulse 70 02/04/24 07:15 Resp 20 02/04/24 07:15 BP 134/66 02/04/24 07:15 Pulse Ox 92 L 02/04/24 07:15 FiO2 50 01/25/24 14:50 Intake & Output 02/03/24 02/04/24 02/04/24 18:59 06:59 18:59 Output Total 900 350 20 Balance -900 -350 -20 Weight 83.5 kg 83.5 kg Output: Drainage 20 Right Lower Abdomen 20 Urine 900 350 Other: Voiding Method Indwelling Catheter Indwelling Catheter Indwelling Catheter # Bowel Movements 1 - Exam GENERAL EXAM: 78-year-old obese male, oriented x 1, resting comfortably in bed, on room air. HEAD: Normocephalic and atraumatic EYES: Normal reaction of pupils, equal size. NOSE: Clear with pink turbinates. Nasogastric tube in place. THROAT: No erythema or exudates. NECK: No masses, no JVD. CHEST: No chest wall deformity. LUNGS: Fine crackles at the bases. CVS: S1 and S2 normal with no audible murmur, regular rhythm. No extra heart sounds ABDOMEN: Postsurgical abdomen with lateral incisional dressing intact and dry. CENTRAL NERVOUS SYSTEM: Confused, gets agitated easily. EXTREMITIES: There is no peripheral edema, clubbing, or cyanosis. Peripheral pulses are intact. Chronic venous stasis changes noted lower extremity SKIN: No rashes - Labs CBC & Chem 7: 02/04/24 07:04 02/04/24 07:04 Labs: Abnormal Lab Results - Last 24 Hours (Table) 02/03/24 02/03/24 02/04/24 Range/Units 16:52 20:00 05:37 RBC (4.30-5.90) m/uL Hgb (13.0-17.5) gm/dL Hct (39.0-53.0) % MCHC (31.0-37.0) g/dL RDW (11.5-15.5) % Chloride (98-107) mmol/L BUN (9-20) mg/dL Glucose (74-99) mg/dL POC Glucose (mg/dL) 152 H 146 H 119 H (70-110) mg/dL Calcium (8.4-10.2) mg/dL 02/04/24 02/04/24 02/04/24 Range/Units 07:04 07:04 11:35 RBC 3.49 L (4.30-5.90) m/uL Hgb 9.1 L (13.0-17.5) gm/dL Hct 29.6 L (39.0-53.0) % MCHC 30.6 L (31.0-37.0) g/dL RDW 16.8 H (11.5-15.5) % Chloride 110 H (98-107) mmol/L BUN 23 H (9-20) mg/dL Glucose 115 H (74-99) mg/dL POC Glucose (mg/dL) 149 H (70-110) mg/dL Calcium 7.5 L (8.4-10.2) mg/dL Assessment and Plan Assessment: Chronic cholecystitis status post open cholecystectomy and appendectomy 01/23/2024. Patient was extubated on 01/25/2024 stable and on room air Advanced dementia Acute blood loss anemia expected outcome of surgery Chronic kidney disease stage III History of aortic stenosis and previous TAVR History of coronary arteriosclerosis and previous CABG Chronic atrial fibrillation Dyslipidemia Type 2 diabetes History of BPH Benign essential hypertension Plan: The patient was seen and evaluated Medications and labs reviewed Stable and on room air Currently on full liquid diet Plan is for possibly [place] at discharge I have personally seen and examined the patient, performed the documentation and the assessment and plan as written. Number of minutes spent on the visit: 10.
--- NOTE | 2024-02-04 13:26 | P.PN ---
Progress Note - Text Progress Note Date: 02/04/24 Patient is status post open Nellie and appendectomy he is tolerating his diet was sleeping at time of evaluation with no distress. Advance diet as tolerated.
[2024-02-04 16:46] LABS: Glucose,Whole Blood 207 mg/dL (70-110)
[2024-02-04 20:41] LABS: Glucose,Whole Blood 208 mg/dL (70-110)
[2024-02-05 05:51] LABS: Glucose,Whole Blood 155 mg/dL (70-110)
--- NOTE | 2024-02-05 10:29 | P.PN ---
Subjective Progress Note Date: 02/05/24 Patient is still. He is a poor oral intake. Objective - Vital Signs Vital signs: Vital Signs Temp 98.4 F 02/05/24 07:15 Pulse 81 02/05/24 07:15 Resp 19 02/05/24 07:15 BP 150/69 02/05/24 07:15 Pulse Ox 93 L 02/05/24 07:15 FiO2 50 01/25/24 14:50 Intake & Output 02/04/24 02/05/24 02/05/24 18:59 06:59 18:59 Output Total 820 405 Balance -820 -405 Weight 83.5 kg 80.5 kg Output: Drainage 20 5 Right Lower Abdomen 20 5 Urine 800 400 Other: Voiding Method Indwelling Catheter Indwelling Catheter Indwelling Catheter # Bowel Movements 1 1 - Gastrointestinal Gastrointestinal Comment(s): Abdomen soft. Incision sites clean dry intact - Labs CBC & Chem 7: 02/04/24 07:04 02/04/24 07:04 Labs: Abnormal Lab Results - Last 24 Hours (Table) 02/04/24 02/04/24 02/04/24 Range/Units 11:35 16:44 20:37 POC Glucose (mg/dL) 149 H 207 H 208 H (70-110) mg/dL 02/05/24 Range/Units 05:49 POC Glucose (mg/dL) 155 H (70-110) mg/dL Assessment and Plan Assessment: Status post cholecystectomy. Patient will be evaluated for protein calorie measures. He may require PEG tube placement.
--- NOTE | 2024-02-05 10:38 | P.PN ---
Subjective Progress Note Date: 02/05/24 78 year old M with PMH of COPD, DM, HTN, GERD, BPH, CAD with CABG, Dementia, Depression and anxiety, diastolic CHF, h/o TAVR presented to the ED for RLQ abdominal pain. Recently hospitalized from 12/23-01/02 for cholecystitis, NSTEMI and SAMANTHA. Found to be high risk for surgery, underwent cholecystostomy, discharged on PO antibiotics. He presents back to the hospital for RLQ pain that started on Tuesday. In the ED he underwent extensive evaluation. BP 127/75 HR 87 T 98.7F RR 18 94% on RA. CBC and CMP significant for WBC 18.3, Hg 12.8, bicarb 19, BUN 22, Cr 1.32, glu 133, alk phos 135, alb 3.4. Lactic acid 3.1. CT AP showed foci of gas in the upper abdomen, retraction of the percutaneous cholecystostomy tube, colitis of the transverse colon to the rectum and dilated appedix concerning for appendicitis. He underwent laparascopic cholecystectomy turned open appendectomy on 01/[address] Patel. Transferred to the ICU on a ventilator, extubated on 01/24. Post operative complications included extreme agitation and delirium, treated with Precedex drip and ativan. Precedex drip discontinued on 01/26. He continued to receive intermittent Ativan and Haldol. Started on Seroquel which seems to be improving his delirium. Developed a Tmax 102.2F on 01/29 while maintained on Zosyn since admission. Fluconazole added for intertrigo on 01/28. NG tube placed on 01/27 for nutritional support. Initially, plans were for PEG tube however ST evaluated, MBS shows no signs of aspiration, started on FLD. 02/03 Patient was seen and examined. Appears less agitated. Sleeping comfortably. Plans to discontinue Seroquel due to oversedation. Able to eat 25% of his breakfast and lunch, refused dinner. His leukocytosis resolved as of yesterday. CBC Hg 9.1, Hct 29.6. BMP Cl 110, BUN 23, glu 115, Ca 7.5. Tmax 99.2F over the past 24H. Maintained on Zosyn (D12) and Fluconazole (D6). 02/04 Patient was seen and examined. Appears less agitated. More awake than yesterday. Able to eat 25% of his lunch, refused breakfast and dinner. No new labs are done today. Maintained on Zosyn (D13) and Fluconazole (D7). Discussed with Dr. Johnson, possible need for PEG. General: Nontoxic, no distress, appears at stated age Derm: Warm, dry, scrotal erythema Head: Atraumatic, normocephalic, symmetric Eyes: EOMI, no lid lag, anicteric sclera Mouth: No lip lesion, mucus membranes moist Cardiovascular: S1S2 reg, no murmur Lungs: CTA bilateral, no rhonchi, no rales, no accessory muscle use, supplemental oxygen Abdominal: Soft, nontender to palpation, no guarding, no appreciable organomegaly, NG tube in place, JUNE drain in place Ext: No gross muscle atrophy, no contractures, pitting edema Neuro: Moving all extremities, following commands, alert and oriented x 1 Psych: Appears less agitated today Based on my assessment of this patient, this patient meets a moderate complexity level of care. Patient has an acute diagnosis of acute appendicitis and chronic gangrenous cholecystitis status post laparascopic cholecystectomy turned open appendectomy on 01/[address] Patel that poses a threat to life or bodily function. Post operative complications include extreme delirium and severe malnutrition. Acute encephalopathy: Multifactorial. ICU delirium. Sepsis. Narcotic induced Acute delirium: Haldol 2 mg IV Q4H PRN, Ativan 0.5 mg IV Q4H PRN anxiety of agitation. Discontinue Seroquel due to oversedation. Severe protein calorie malnutrition: ST and Dietitian on board. Passed MBS. Started on FLD. I do not believe he is getting adequate nutrition at this time. Plans for PEG on hold. Sepsis, present on admission Acute appendicitis: Continue Zosyn 3.375g IV TID (D13). Transition to Augmentin on discharge. Chemical peritonitis, secondary to bile leak Recent gangrenous cholecystitis Intertrigo: Continue Fluconazole 200 mg IV QD (D7). Acute hypoxic respiratory failure: Currently 93% on RA. Resolving. Diabetes mellitus with hyperglycemia: Highest POC glucose 218 over the past 24H. Levemir 30 units SQ QD. ISS. Accuchecks Q6H. Hypoglycemic precautions. Resolved: SAMANTHA, Acute blood loss anemia Chronic conditions: Diastolic CHF, h/o TAVR, COPD not in acute exacerbation, HTN, GERD, BPH, Dementia, Anxiety and Depression CODE STATUS: FULL CODE. DVT Prophylaxis: Heparin SQ. GI Prophylaxis: Protonix IV Designated medical POA if patient is not able to make medical decisions for themselves: I have reviewed the following excellence consultant notes: Surgery, Pulmonary. I have reviewed the results of the following tests: I have ordered the following tests: I have discussed the care of this patient with the following independent historian: PAOLA. I have independently interpreted the following test below: I have discussed the management of this patient with the following physician: Dr. Johnson. Objective - Vital Signs Vital signs: Vital Signs Temp 99.8 F H 02/05/24 00:56 Pulse 72 02/05/24 00:56 Resp 20 02/05/24 00:56 BP 151/62 02/05/24 00:56 Pulse Ox 92 L 02/05/24 00:56 FiO2 50 01/25/24 14:50 Intake & Output 02/04/24 02/05/24 02/05/24 18:59 06:59 18:59 Output Total 820 405 Balance -820 -405 Weight 83.5 kg 80.5 kg Output: Drainage 20 5 Right Lower Abdomen 20 5 Urine 800 400 Other: Voiding Method Indwelling Catheter Indwelling Catheter # Bowel Movements 1 1 - Labs CBC & Chem 7: 02/04/24 07:04 02/04/24 07:04 Labs: Abnormal Lab Results - Last 24 Hours (Table) 02/04/24 02/04/24 02/04/24 Range/Units 11:35 16:44 20:37 POC Glucose (mg/dL) 149 H 207 H 208 H (70-110) mg/dL 02/05/24 Range/Units 05:49 POC Glucose (mg/dL) 155 H (70-110) mg/dL
--- NOTE | 2024-02-05 10:51 | P.PN ---
Subjective Progress Note Date: 02/05/24 Principal diagnosis: Abdominal pain. Patient was reevaluated today on 2023, patient remains in the ICU, patient had a temp of 101.6 last night, continues to have intermittent episodes of agitations requiring Haldol and Ativan, today we added Seroquel 25 mg twice daily to be given via nasogastric tube. Patient remains on enteral feeding Glucerna at 55 mL/h. Patient is still receiving IV fluid at 0.9 normal saline, 100 cc/h, urine output is marginal, hence I am recommending Lasix to be given. Blood sugar is high today above 400, patient will be started on Levemir insulin at 20 units/day and considering his sodium seems to be on the rise, I am recommending changing his IV fluid to D5W at 100 cc/h. Patient remains on Zosyn, the main issue with this patient seems to be issues related to his agitation and profound dementia. WBC count is 12.3 hemoglobin 10.3 basic metabolic profile showed sodium of 145 chloride 120 BUN is 29 creatinine 1.08, patient remains on sliding scale insulin and now he is on Levemir 20 units daily. The patient was seen today January 30, 2024 in follow-up in the intensive care unit. He is currently resting in bed. He is currently maintaining O2 saturations in the 90s on 6 L/min per nasal cannula. He did have fevers yesterday. He is currently afebrile. Dopplers of the lower extremity were negative for DVT. CT angiogram revealed no evidence of pulmonary embolism. There is moderate left and mild to moderate right pleural effusions. Adjacent lung opacities likely representing atelectasis. Nasogastric tube in place. Chest x-ray today reveals no acute pulmonary process. Blood cultures revealed no growth. Sputum culture revealed no growth. White count 9.7. Hemoglobin 10.1. Platelets 214. Sodium 145. Potassium 3.6. Bicarb 22. BUN 25. Creatinine 0.93. Glucose 250. The patient is seen today January 31, 2024 in follow-up in the intensive care unit. He is currently resting in bed. He is confused and pulling off his gown. vehicle window tinter remains at the bedside. He is continued on oxygen at 6 L high flow nasal cannula to maintain O2 saturations in the 90s. Did have a temp of 102.2 last evening again. He is tachypneic. Nasogastric tube remains in place.'s x-ray reveals by basilar opacities. Blood culture revealed no growth. Sputum culture revealed no growth. White count 12.0. Hemoglobin 10.1. Plat elets 201. Sodium 141. Potassium 4.3. Bicarb 22. BUN 29. Creatinine 0.89. Glucose 275. Stool negative for to C. difficile toxin. He is continued on fluconazole and Zosyn. Remains on IV diuretics. Heparin for DVT prophylaxis. He is being nourished with Glucerna 1.5 at 55 MLS per hour which is goal. The patient is seen today February 01, 2024 in follow-up in the intensive care unit. He is currently resting in bed. He is awake, asking for coffee. Confused to time and place. He is being nourished with Glucerna at 55 MLS per hour which is goal via NG tube. Maintaining O2 saturation in the 90s on 2 L/min per nasal cannula. White count 18.2. Hemoglobin 9.7. Platelets 195. Sodium 1 43. Potassium 5.0. Bicarb 26. BUN 33. Creatinine 0.94. Glucose 234. He remains on fluconazole and Zosyn. Remains on IV diuretics. Heparin for DVT prophylaxis. Chest x-ray reveals stable retrocardiac left basilar consolidation. Airspace disease in the right base is improving. Sputum culture revealed no growth. Blood culture revealed no growth. The patient is seen today February 02, 2024 in follow-up in the intensive care unit. He is awake. Restless. vehicle window tinter remains at the bedside. He is maintaining O2 saturations in the 90s on 2 L/min per nasal cannula. Afebrile. Hemodynamically stable. White count 12.5. Hemoglobin 9.2. Platelets 248. Sodium 147. Potassium 4.3. Bicarb 29. BUN 35. Creatinine 0.90. Glucose 152. He remains on fluconazole and Zosyn. Remains on IV diuretics. Heparin for DVT prophylaxis. Currently in a positive balance. The plan is for PEG tube placement today. Currently NPO. He had been nourished with Glucerna at 55 MLS per hour which is his goal with 200 mL of free water flushes every 6 hours. The patient is seen today February 03, 2024 in follow-up on the regular medical floor. He was transferred out of the intensive care unit yesterday. He is resting comfortably in bed. Maintaining O2 saturations in the 90s on 2 L/min per nasal cannula. Normal saline at 20 MLS per hour. He did undergo a barium swallow with video yesterday and was found to have a functional swallow evaluation. As for PEG tube placement were canceled. White count 9.6. Hemoglobin 9.1. Platelets 315. Sodium 139. Potassium 4.1. Bicarb 28. BUN 31. Creatinine 0.99. Glucose 174. He remains on fluconazole and Zosyn. Heparin for DVT prophylaxis. Remains on oral diuretics. He is currently on a full liquid diet. The patient is seen today February 04, 2024 in follow-up on the regular medical floor. He is currently resting fairly comfortably in bed. Awake and alert. He is maintaining O2 saturations in the 90s on room air. He has normal staying at 20 mph. He still has a loose occasional cough. Afebrile. Hemodynamically stable. Blood, sputum and stool cultures all revealed no growth. White count 7.5. Hemoglobin 9.1. Platelets 341. Sodium 142. Potassium 4.1. Bicarb 26. BUN 23. Creatinine 1.12. Glucose 115 he remains on fluconazole. Remains on oral diuretics. Heparin for DVT prophylaxis. Continued on antibiotics in the form of Zosyn Progress note dated February 05, 2024. The patient is seen in room 463. The patient has not been here in the hospital, for 14 days. He remains on room air. Saturations are 92%. He continues on Zosyn. He is not receiving any IV fluids. According to the nurse, he ate very little of his food. He is in no respiratory distress at this time. No new laboratory data today other than a glucose of 155. The lab work from February 03, has been reviewed. Blood, sputum, and stool sampling has all been negative or pending. No recent chest x-ray to report. Objective - Vital Signs Vital signs: Vital Signs Temp 98.4 F 02/05/24 07:15 Pulse 81 02/05/24 07:15 Resp 19 02/05/24 07:15 BP 150/69 02/05/24 07:15 Pulse Ox 93 L 02/05/24 07:15 FiO2 50 01/25/24 14:50 Intake & Output 02/04/24 02/05/24 02/05/24 18:59 06:59 18:59 Output Total 820 405 Balance -820 -405 Weight 83.5 kg 80.5 kg Output: Drainage 20 5 Right Lower Abdomen 20 5 Urine 800 400 Other: Voiding Method Indwelling Catheter Indwelling Catheter Indwelling Catheter # Bowel Movements 1 1 - Exam No acute distress, lethargic, but does arouse, currently on room air. HEENT examination is grossly unremarkable. Mucous membranes are moist. No oral lesions. Neck supple. Full range of motion. No adenopathy thyromegaly or neck vein distention. Cardiovascular examination reveals regular rhythm rate. S1-S2 normal. No S3 or S4. No discernible murmur noted. Heart sounds are distant. Heart rate 81 bpm. Lungs reveal fine crackles at the bases. No wheezes or rhonchi. Room air saturations are 93%. Abdomen soft bowel sounds are heard. No masses or tenderness. Extremities are intact. No cyanosis clubbing or edema. Skin is without rash or lesion. Neurologic examination is brief but nonfocal. - Labs CBC & Chem 7: 02/04/24 07:04 02/04/24 07:04 Labs: Abnormal Lab Results - Last 24 Hours (Table) 02/04/24 02/04/24 02/04/24 Range/Units 11:35 16:44 20:37 POC Glucose (mg/dL) 149 H 207 H 208 H (70-110) mg/dL 02/05/24 Range/Units 05:49 POC Glucose (mg/dL) 155 H (70-110) mg/dL Assessment and Plan Assessment: Chronic cholecystitis, S/P open cholecystectomy and appendectomy 01/23/2024. Patient was extubated on 01/25/2024 stable and on room air. Advanced dementia. Acute blood loss anemia. Chronic kidney disease, stage III. History of aortic stenosis and previous TAVR. History of coronary arteriosclerosis and previous CABG. Chronic atrial fibrillation. Dyslipidemia. Type 2 diabetes. History of BPH. Benign essential hypertension. Plan: Plan dated February 05, 2024. The patient continues on room air. He is not receiving any IV fluids. He does not appear to have any complaints today. His respiratory status is stable. Labs, x-rays, and medications are all reviewed. The patient continues on fluconazole, and also continues on Zosyn. We will continue to follow make recommendations along the way. Prognosis is guarded. Time with Patient: Less than 30
[2024-02-05 11:21] LABS: Glucose,Whole Blood 134 mg/dL (70-110)
[2024-02-05 16:47] LABS: Glucose,Whole Blood 142 mg/dL (70-110)
[2024-02-05 20:27] LABS: Glucose,Whole Blood 149 mg/dL (70-110)
[2024-02-06 05:15] LABS: Glucose,Whole Blood 136 mg/dL (70-110)
[2024-02-06 11:20] LABS: Glucose,Whole Blood 82 mg/dL (70-110)
--- NOTE | 2024-02-06 11:25 | P.PN ---
Subjective Progress Note Date: 02/06/24 78 year old M with PMH of COPD, DM, HTN, GERD, BPH, CAD with CABG, Dementia, Depression and anxiety, diastolic CHF, h/o TAVR presented to the ED for RLQ abdominal pain. Recently hospitalized from 12/23-01/02 for cholecystitis, NSTEMI and SAMANTHA. Found to be high risk for surgery, underwent cholecystostomy, discharged on PO antibiotics. He presents back to the hospital for RLQ pain that started on Tuesday. In the ED he underwent extensive evaluation. BP 127/75 HR 87 T 98.7F RR 18 94% on RA. CBC and CMP significant for WBC 18.3, Hg 12.8, bicarb 19, BUN 22, Cr 1.32, glu 133, alk phos 135, alb 3.4. Lactic acid 3.1. CT AP showed foci of gas in the upper abdomen, retraction of the percutaneous cholecystostomy tube, colitis of the transverse colon to the rectum and dilated appedix concerning for appendicitis. He underwent laparascopic cholecystectomy turned open appendectomy on 01/[address] Patel. Transferred to the ICU on a ventilator, extubated on 01/24. Post operative complications included extreme agitation and delirium, treated with Precedex drip and ativan. Precedex drip discontinued on 01/26. He continued to receive intermittent Ativan and Haldol. Started on Seroquel which seems to be improving his delirium. Developed a Tmax 102.2F on 01/29 while maintained on Zosyn since admission. Fluconazole added for intertrigo on 01/28. NG tube placed on 01/27 for nutritional support. Initially, plans were for PEG tube however ST evaluated, MBS shows no signs of aspiration, started on FLD. 02/03 Patient was seen and examined. Appears less agitated. Sleeping comfortably. Plans to discontinue Seroquel due to oversedation. Able to eat 25% of his breakfast and lunch, refused dinner. His leukocytosis resolved as of yesterday. CBC Hg 9.1, Hct 29.6. BMP Cl 110, BUN 23, glu 115, Ca 7.5. Tmax 99.2F over the past 24H. Maintained on Zosyn (D12) and Fluconazole (D6). 02/04 Patient was seen and examined. Appears less agitated. More awake than yesterday. Able to eat 25% of his lunch, refused breakfast and dinner. No new labs are done today. Maintained on Zosyn (D13) and Fluconazole (D7). Discussed with Dr. Johnson, possible need for PEG. 02/05 Patient was seen and examined. Appears less agitated. More awake than yesterday. Able to eat 25% of his breakfast and 50% of lunch and dinner. No new labs are done today. Maintained on Zosyn (D14) and Fluconazole (D8). Plans for SNF on discharge. Surgery on board for possible PEG. General: Nontoxic, no distress, appears at stated age Derm: Warm, dry, scrotal erythema Head: Atraumatic, normocephalic, symmetric Eyes: EOMI, no lid lag, anicteric sclera Mouth: No lip lesion, mucus membranes moist Cardiovascular: S1S2 reg, no murmur Lungs: CTA bilateral, no rhonchi, no rales, no accessory muscle use, supplemental oxygen Abdominal: Soft, nontender to palpation, no guarding, no appreciable organomegaly, NG tube in place, JUNE drain in place Ext: No gross muscle atrophy, no contractures, pitting edema Neuro: Moving all extremities, following commands, alert and oriented x 1 Psych: Appears less agitated today Based on my assessment of this patient, this patient meets a moderate complexity level of care. Patient has an acute diagnosis of acute appendicitis and chronic gangrenous cholecystitis status post laparascopic cholecystectomy turned open appendectomy on 01/[address] Patel that poses a threat to life or bodily function. Post operative complications include extreme delirium and severe malnutrition. Acute encephalopathy: Multifactorial. ICU delirium. Sepsis. Narcotic induced Acute delirium: Haldol 2 mg IV Q4H PRN, Ativan 0.5 mg IV Q4H PRN anxiety of agitation. Discontinue Seroquel due to oversedation. Severe protein calorie malnutrition: ST and Dietitian on board. Passed MBS. Started on FLD. I do not believe he is getting adequate nutrition at this time. Plans for PEG on hold. Sepsis, present on admission Acute appendicitis: Continue Zosyn 3.375g IV TID (D14). Transition to Augmentin on discharge. Chemical peritonitis, secondary to bile leak Recent gangrenous cholecystitis Intertrigo: Continue Fluconazole 200 mg IV QD (D8). Acute hypoxic respiratory failure: Currently 93% on RA. Resolving. Diabetes mellitus with hyperglycemia: Highest POC glucose 218 over the past 24H. Levemir 30 units SQ QD. ISS. Accuchecks Q6H. Hypoglycemic precautions. Resolved: SAMANTHA, Acute blood loss anemia Chronic conditions: Diastolic CHF, h/o TAVR, COPD not in acute exacerbation, HTN, GERD, BPH, Dementia, Anxiety and Depression CODE STATUS: FULL CODE. DVT Prophylaxis: Heparin SQ. GI Prophylaxis: Protonix IV Designated medical POA if patient is not able to make medical decisions for themselves: I have reviewed the following web consultant notes: Surgery, Pulmonary. I have reviewed the results of the following tests: I have ordered the following tests: I have discussed the care of this patient with the following independent histor jake: PAOLA, case management. I have independently interpreted the following test below: I have discussed the management of this patient with the following physician: Objective - Vital Signs Vital signs: Vital Signs Temp 98.6 F 02/06/24 07:03 Pulse 74 02/06/24 07:03 Resp 19 02/06/24 07:03 BP 156/71 02/06/24 07:03 Pulse Ox 95 02/06/24 07:03 FiO2 50 01/25/24 14:50 Intake & Output 02/05/24 02/06/24 02/06/24 18:59 06:59 18:59 Output Total 1400 400 Balance -1400 -400 Weight 85.5 kg Output: Drainage 0 Right Lower Abdomen 0 Urine 1400 400 Other: Voiding Method Indwelling Catheter Indwelling Catheter # Bowel Movements 1 - Labs CBC & Chem 7: 02/04/24 07:04 02/04/24 07:04 Labs: Abnormal Lab Results - Last 24 Hours (Table) 02/05/24 02/05/24 02/05/24 Range/Units 11:19 16:45 20:17 POC Glucose (mg/dL) 134 H 142 H 149 H (70-110) mg/dL 02/06/24 Range/Units 05:04 POC Glucose (mg/dL) 136 H (70-110) mg/dL
--- NOTE | 2024-02-06 12:53 | P.DS ---
Providers Date of admission: 01/22/24 21:30 Expected date of discharge: 02/06/24 Attending physician: Evelyn Montano MD Consults: 01/23/24 08:44 Consult Physician Routine Consulting Provider: Naresh Patel Consult Reason/Comments: abd pain, colitis, possible appendicitis, cholecystostomy dislodgement Do you want consulting provider notified?: Yes 01/23/24 19:54 Consult Physician Stat Consulting Provider: Chandler Brice Consult Reason/Comments: abd pain, open cholecystectomy, to remain intubated Do you want consulting provider notified?: Yes 01/23/24 21:11 Consult Physician Routine Consulting Provider: Chandler Brice Consult Reason/Comments: ICU management Do you want consulting provider notified?: Already Contacted 01/30/24 11:35 Consult Physician Routine Consulting Provider: Nain Lin Consult Reason/Comments: Urinary catheter exchange Do you want consulting provider notified?: Yes Primary care physician: [facility] Hospital Course: 78 year old M with PMH of COPD, DM, HTN, GERD, BPH, CAD with CABG, Dementia, Depression and anxiety, diastolic CHF, h/o TAVR presented to the ED for RLQ abdominal pain. Recently hospitalized from 12/23-01/02 for cholecystitis, NSTEMI and SAMANTHA. Found to be high risk for surgery, underwent cholecystostomy, discharged on PO antibiotics. He presents back to the hospital for RLQ pain that started on Tuesday. In the ED he underwent extensive evaluation. BP 127/75 HR 87 T 98.7F RR 18 94% on RA. CBC and CMP significant for WBC 18.3, Hg 12.8, bicarb 19, BUN 22, Cr 1.32, glu 133, alk phos 135, alb 3.4. Lactic acid 3.1. CT AP showed foci of gas in the upper abdomen, retraction of the percutaneous cholecystostomy tube, colitis of the transverse colon to the rectum and dilated appedix concerning for appendicitis. He underwent laparascopic cholecystectomy turned open appendectomy on 01/[address] Patel. Transferred to the ICU on a ventilator, extubated on 01/24. Post operative complications included extreme agitation and delirium, treated with Precedex drip and ativan. Precedex drip discontinued on 01/26. He continued to receive intermittent Ativan and Haldol. Started on Seroquel which seems to be improving his delirium. Developed a Tmax 102.2F on 01/29 while maintained on Zosyn since admission. Fluconazole added for intertrigo on 01/28. NG tube placed on 01/27 for nutritional support. Initially, plans were for PEG tube however ST evaluated, MBS shows no signs of aspiration, started on FLD. 02/03 Patient was seen and examined. Appears less agitated. Sleeping comfortably. Plans to discontinue Seroquel due to oversedation. Able to eat 25% of his breakfast and lunch, refused dinner. His leukocytosis resolved as of yesterday. CBC Hg 9.1, Hct 29.6. BMP Cl 110, BUN 23, glu 115, Ca 7.5. Tmax 99.2F over the past 24H. Maintained on Zosyn (D12) and Fluconazole (D6). 02/04 Patient was seen and examined. Appears less agitated. More awake than yesterday. Able to eat 25% of his lunch, refused breakfast and dinner. No new labs are done today. Maintained on Zosyn (D13) and Fluconazole (D7). Discussed with Dr. Johnson, possible need for PEG. 02/05 Patient was seen and examined. Appears less agitated. More awake than yesterday. Able to eat 25% of his breakfast and 50% of lunch and dinner. No new labs are done today. Maintained on Zosyn (D14) and Fluconazole (D8). Plans for discharge to SNF today. Patient to complete 7 days of Augmentin. Continue FLD on discharge and advance as tolerated. Follow up with Dr. Patel within 7 days of discharge. General: Nontoxic, no distress, appears at stated age Derm: Warm, dry, scrotal erythema Head: Atraumatic, normocephalic, symmetric Eyes: EOMI, no lid lag, anicteric sclera Mouth: No lip lesion, mucus membranes moist Cardiovascular: S1S2 reg, no murmur Lungs: CTA bilateral, no rhonchi, no rales, no accessory muscle use, supplemental oxygen Abdominal: Soft, nontender to palpation, no guarding, no appreciable orga nomegaly, NG tube in place, JUNE drain in place Ext: No gross muscle atrophy, no contractures, pitting edema Neuro: Moving all extremities, following commands, alert and oriented x 1 Psych: Appears less agitated today Discharge Diagnosis: Acute encephalopathy: Multifactorial. ICU delirium. Sepsis. Narcotic induced Acute delirium: Resolving. Severe protein calorie malnutrition: ST and Dietitian on board. Passed MBS. Started on FLD. Sepsis, present on admission Acute appendicitis: Completed 14 Days of Zosyn. 7 days of Augmentin by mouth. Chemical peritonitis, secondary to bile leak Recent gangrenous cholecystitis Intertrigo: Completed 8 days of Fluconazole. Acute hypoxic respiratory failure: Currently 93% on RA. Resolving. Diabetes mellitus with hyperglycemia: Levemir 30 units SQ QD. ISS. Resolved: SAMANTHA, Acute blood loss anemia Chronic conditions: Diastolic CHF, h/o TAVR, COPD not in acute exacerbation, HTN, GERD, BPH, Dementia, Anxiety and Depression This complex discharge took 35 minutes to complete. Patient Condition at Discharge: Stable Plan - Discharge Summary New Discharge Prescriptions: New Insulin Detemir (Levemir) [Levemir] 30 unit SQ DAILY@0700 each Lidocaine 4% Patch 1 patch TOPICAL DAILY patch Nystatin 100,000 Unit/gm Powd [Mycostatin Powder] 1 applic TOPICAL TID each HYDROcodone/APAP 10-325MG [Hurricane 10-325] 1 each PO Q4H PRN #18 tab PRN Reason: Moderate Pain (Scale 4 To 6) Continue Omeprazole [PriLOSEC] 20 mg PO DAILY Donepezil [Aricept] 10 mg PO HS #30 Tamsulosin HCl [Flomax] 0.4 mg PO DAILY Fluticasone Nasal Hewitt [Flonase Nasal Hewitt] 2 spr EA NOSTRIL DAILY PRN PRN Reason: Nasal Congestion Cholecalciferol [Vitamin D3 (125 Mcg = 5000 Iu)] 125 mcg PO HS Furosemide [Lasix] 40 mg PO DAILY Atorvastatin [Lipitor] 80 mg PO HS Empagliflozin [Jardiance] 10 mg PO DAILY Acetaminophen Tab [Tylenol] 650 mg PO Q4HR PRN tab PRN Reason: Fever And/ Or Mild Pain (1-3) Aspirin 81 mg PO DAILY #30 tab Amoxic-Pot Clav 875-125Mg [Augmentin 875-125] 1 tab PO Q12HR 7 Days #14 tab amLODIPine [Norvasc] 10 mg PO DAILY #0 INSULIN LISPRO (HumaLOG) [humaLOG] See Protocol SQ ACHS Potassium Chloride ER [K-Dur 10] 10 meq PO HS Albuterol Nebulized [Ventolin Nebulized] 2.5 mg INHALATION RT-QID PRN PRN Reason: Shortness Of Breath Zguard 1 applic TOPICAL BID Ondansetron [Zofran] 4 mg PO Q8HR PRN PRN Reason: Nausea And Vomiting hydrALAZINE HCL 10 mg PO TID Zguard 1 applic TOPICAL DIRECTED PRN PRN Reason: cleanse Discontinued Insulin Glargine,Hum.rec.anlog [Lantus Solostar Pen] 68 unit SQ W/LUNCH Amitriptyline HCl [Elavil] 25 mg PO HS Discharge Medication List Omeprazole [PriLOSEC] 20 mg PO DAILY 02/23/15 [History] Donepezil [Aricept] 10 mg PO HS #30 03/13/15 [Rx] Tamsulosin HCl [Flomax] 0.4 mg PO DAILY 03/07/17 [History] Potassium Chloride ER [K-Dur 10] 10 meq PO HS 03/16/22 [History] Albuterol Nebulized [Ventolin Nebulized] 2.5 mg INHALATION RT-QID PRN 04/16/23 [History] Fluticasone Nasal Hewitt [Flonase Nasal Hewitt] 2 spr EA NOSTRIL DAILY PRN 04/16/23 [History] Atorvastatin [Lipitor] 80 mg PO HS 05/11/23 [History] Cholecalciferol [Vitamin D3 (125 Mcg = 5000 Iu)] 125 mcg PO HS 05/11/23 [History] Furosemide [Lasix] 40 mg PO DAILY 05/11/23 [History] Empagliflozin [Jardiance] 10 mg PO DAILY 11/23/23 [History] Acetaminophen Tab [Tylenol] 650 mg PO Q4HR PRN tab 12/01/23 [Rx] Amoxic-Pot Clav 875-125Mg [Augmentin 875-125] 1 tab PO Q12HR 7 Days #14 tab 01/02/24 [Rx] Aspirin 81 mg PO DAILY #30 tab 01/02/24 [Rx] amLODIPine [Norvasc] 10 mg PO DAILY #0 01/02/24 [Rx] INSULIN LISPRO (HumaLOG) [humaLOG] See Protocol SQ ACHS 01/23/24 [History] Ondansetron [Zofran] 4 mg PO Q8HR PRN 01/23/24 [History] Zguard 1 applic TOPICAL DIRECTED PRN 01/23/24 [History] Zguard 1 applic TOPICAL BID 01/23/24 [History] hydrALAZINE HCL 10 mg PO TID 01/23/24 [History] HYDROcodone/APAP 10-325MG [Hurricane 10-325] 1 each PO Q4H PRN #18 tab 02/06/24 [Rx] Insulin Detemir (Levemir) [Levemir] 30 unit SQ DAILY@0700 each 02/06/24 [Rx] Lidocaine 4% Patch 1 patch TOPICAL DAILY patch 02/06/24 [Rx] Nystatin 100,000 Unit/gm Powd [Mycostatin Powder] 1 applic TOPICAL TID each 02/06/24 [Rx] Follow up Appointment(s)/Referral(s): Naresh Patel MD [Medical Doctor] - 1 Week Valente Sharma MD [Primary Care Provider] - 1-2 days Mack Dukes [NON-STAFF] - 1 Week Activity/Diet/Wound Care/Special Instructions: Diet: Full liquid diet, mashed potatoes and gravy with tomato soup Discharge Disposition: TRANSFER TO SNF/ECF
--- NOTE | 2024-02-06 14:13 | P.PN ---
Subjective Progress Note Date: 02/06/24 Patient was reevaluated today on 2023, patient remains in the ICU, patient had a temp of 101.6 last night, continues to have intermittent episodes of agitations requiring Haldol and Ativan, today we added Seroquel 25 mg twice daily to be given via nasogastric tube. Patient remains on enteral feeding Glucerna at 55 mL/h. Patient is still receiving IV fluid at 0.9 normal saline, 100 cc/h, urine output is marginal, hence I am recommending Lasix to be given. Blood sugar is high today above 400, patient will be started on Levemir insulin at 20 units/day and considering his sodium seems to be on the rise, I am recommending changing his IV fluid to D5W at 100 cc/h. Patient remains on Zosyn, the main issue with this patient seems to be issues related to his agitation and profound dementia. WBC count is 12.3 hemoglobin 10.3 basic metabolic profile showed sodium of 145 chloride 120 BUN is 29 creatinine 1.08, patient remains on sliding scale insulin and now he is on Levemir 20 units daily. The patient was seen today January 30, 2024 in follow-up in the intensive care unit. He is currently resting in bed. He is currently maintaining O2 saturations in the 90s on 6 L/min per nasal cannula. He did have fevers yesterday. He is currently afebrile. Dopplers of the lower extremity were ne gative for DVT. CT angiogram revealed no evidence of pulmonary embolism. There is moderate left and mild to moderate right pleural effusions. Adjacent lung opacities likely representing atelectasis. Nasogastric tube in place. Chest x- ray today reveals no acute pulmonary process. Blood cultures revealed no growth. Sputum culture revealed no growth. White count 9.7. Hemoglobin 10.1. Platelets 214. Sodium 145. Potassium 3.6. Bicarb 22. BUN 25. Creatinine 0.93. Glucose 250. The patient is seen today January 31, 2024 in follow-up in the intensive care unit. He is currently resting in bed. He is confused and pulling off his gown. wire weaving loom setter remains at the bedside. He is continued on oxygen at 6 L high flow nasal cannula to maintain O2 saturations in the 90s. Did have a temp of 102.2 last evening again. He is tachypneic. Nasogastric tube remains in place.'s x-ray reveals by basilar opacities. Blood culture revealed no growth. Sputum culture revealed no growth. White count 12.0. Hemoglobin 10.1. Platelets 201. Sodium 141. Potassium 4.3. Bicarb 22. BUN 29. Creatinine 0.89. Glucose 275. Stool negative for to C. difficile toxin. He is continued on fluconazole and Zosyn. Remains on IV diuretics. Heparin for DVT prophylaxis. He is being nourished with Glucerna 1.5 at 55 MLS per hour which is goal. The patient is seen today February 01, 2024 in follow-up in the intensive care unit. He is currently resting in bed. He is awake, asking for coffee. Con fused to time and place. He is being nourished with Glucerna at 55 MLS per hour which is goal via NG tube. Maintaining O2 saturation in the 90s on 2 L/min per nasal cannula. White count 18.2. Hemoglobin 9.7. Platelets 195. Sodium 143. Potassium 5.0. Bicarb 26. BUN 33. Creatinine 0.94. Glucose 234. He remains on fluconazole and Zosyn. Remains on IV diuretics. Heparin for DVT prophylax is. Chest x-ray reveals stable retrocardiac left basilar consolidation. Airspace disease in the right base is improving. Sputum culture revealed no growth. Blood culture revealed no growth. The patient is seen today February 02, 2024 in follow-up in the intensive care unit. He is awake. Restless. wire weaving loom setter remains at the bedside. He is maintaining O2 saturations in the 90s on 2 L/min per nasal cannula. Afebrile. Hemodynamically stable. White count 12.5. Hemoglobin 9.2. Platelets 248. Sodium 147. Potassium 4.3. Bicarb 29. BUN 35. Creatinine 0.90. Glucose 152. He remains on fluconazole and Zosyn. Remains on IV diuretics. Heparin for DVT prophylaxis. Currently in a positive balance. The plan is for PEG tube placement today. Currently NPO. He had been nourished with Glucerna at 55 MLS per hour which is his goal with 200 mL of free water flushes every 6 hours. The patient is seen today February 03, 2024 in follow-up on the regular medical floor. He was transferred out of the intensive care unit yesterday. He is resting comfortably in bed. Maintaining O2 saturations in the 90s on 2 L/min per nasal cannula. Normal saline at 20 MLS per hour. He did undergo a barium swallow with video yesterday and was found to have a functional swallow evaluation. As for PEG tube placement were canceled. White count 9.6. Hemoglobin 9.1. Platelets 315. Sodium 139. Potassium 4.1. Bicarb 28. BUN 31. Creatinine 0.99. Glucose 174. He remains on fluconazole and Zosyn. Heparin for DVT prophylaxis. Remains on oral diuretics. He is currently on a full liquid diet. The patient is seen today February 04, 2024 in follow-up on the regular medical floor. He is currently resting fairly comfortably in bed. Awake and alert. He is maintaining O2 saturations in the 90s on room air. He has normal staying at 20 mph. He still has a loose occasional cough. Afebrile. Hemodynamically stable. Blood, sputum and stool cultures all revealed no growth. White count 7.5. Hemoglobin 9.1. Platelets 341. Sodium 142. Potassium 4.1. Bicarb 26. BUN 23. Creatinine 1.12. Glucose 115 he remains on fluconazole. Remains on oral diuretics. Heparin for DVT prophylaxis. Continued on antibiotics in the form of Zosyn Progress note dated February 05, 2024. The patient is seen in room 463. The patient has not been here in the hospital, for 14 days. He remains on room air. Saturations are 92%. He continues on Zosyn. He is not receiving any IV fluids. According to the nurse, he ate very little of his food. He is in no respiratory distress at this time. No new lab oratory data today other than a glucose of 155. The lab work from February 03, has been reviewed. Blood, sputum, and stool sampling has all been negative or pending. No recent chest x-ray to report. On today's evaluation of 02/06/2024, the patient is being seen for a follow-up. This patient is post open cholecystectomy that was done on 01/23/2024. JUNE drain is in place. Output is serosanguineous at this point in time. No nausea vomiting or abdominal pain. No chest pain. No shortness of breath. No recent blood work from today. Cultures were all negative and the patient remains on Diflucan and Zosyn. He remains on IV Protonix. He is on heparin subcu for DVT prophylaxis. He is also on his routine outpatient medications. Pain is under adequate control with Percocet. In terms of oxygen requirements, he is on room air oxygen with a pulse ox of 95%. Objective - Vital Signs Vital signs: Vital Signs Temp 98.6 F 02/06/24 07:03 Pulse 74 02/06/24 07:03 Resp 19 02/06/24 07:03 BP 156/71 02/06/24 07:03 Pulse Ox 96 02/06/24 09:28 FiO2 50 01/25/24 14:50 Intake & Output 02/05/24 02/06/24 02/06/24 18:59 06:59 18:59 Output Total 1400 400 Balance -1400 -400 Weight 85.5 kg Output: Drainage 0 Right Lower Abdomen 0 Urine 1400 400 Other: Voiding Method Indwelling Catheter Indwelling Catheter Indwelling Catheter # Bowel Movements 1 - Exam GENERAL EXAM: 78-year-old obese male, oriented x 1, resting comfortably in bed, on room air. HEAD: Normocephalic and atraumatic EYES: Normal reaction of pupils, equal size. NOSE: Clear with pink turbinates. Nasogastric tube in place. THROAT: No erythema or exudates. NECK: No masses, no JVD. CHEST: No chest wall deformity. LUNGS: Fine crackles at the bases. CVS: S1 and S2 normal with no audible murmur, regular rhythm. No extra heart sounds ABDOMEN: Postsurgical abdomen with lateral incisional dressing intact and dry. The patient has a JUNE drain in his right upper quadrant. CENTRAL NERVOUS SYSTEM: Confused, gets agitated easily. EXTREMITIES: There is no peripheral edema, clubbing, or cyanosis. Peripheral pulses are intact. Chronic venous stasis changes noted lower extremity SKIN: No rashes - Labs CBC & Chem 7: 02/04/24 07:04 02/04/24 07:04 Labs: Abnormal Lab Results - Last 24 Hours (Table) 02/05/24 02/05/24 02/05/24 Range/Units 11:19 16:45 20:17 POC Glucose (mg/dL) 134 H 142 H 149 H (70-110) mg/dL 02/06/24 Range/Units 05:04 POC Glucose (mg/dL) 136 H (70-110) mg/dL Assessment and Plan Plan: Chronic cholecystitis status post open cholecystectomy and appendectomy 01/23/2024. Patient was extubated on 01/25/2024 stable and on room air. Hemodynamically stable. Clinically stable. Maintained on a combination of Zosyn and Diflucan. JUNE drain in the right upper quadrant is showing some minimal serosanguineous drainage. Advanced dementia Acute blood loss anemia expected outcome of surgery Chronic kidney disease stage III History of aortic stenosis and previous TAVR History of coronary arteriosclerosis and previous CABG Chronic atrial fibrillation Dyslipidemia Type 2 diabetes History of BPH Benign essential hypertension Plan: Stable and on room air Currently on full liquid diet Management of JUNE's per general surgery Discharge planning is in progress. The patient can be switched to Augmentin orally on outpatient basis.
--- NOTE | 2024-02-06 15:37 | P.PN ---
Subjective Progress Note Date: 02/06/24 CHIEF COMPLAINT: Chronic cholecystitis HISTORY OF PRESENT ILLNESS: Patient is status post laparoscopic cholecystectomy turned open and open appendectomy. He is sitting up in bed comfortably. Pain is controlled. He did drink an Ensure this morning. Denies any nausea or vomiting. Afebrile. They are working on discharging patient to ECF possibly today. JUNE drain output 0 PHYSICAL EXAM: VITAL SIGNS: Reviewed. GENERAL: no acute distress. ABDOMEN: Soft. Incisional dressing clean dry and intact. Mild tenderness with palpation of incision. JUNE drain serosanguineous Neuro patient is awake and alert answering questions. ASSESSMENT: 1. Chronic cholecystitis with focal gangrenous changes, bile leak 2. Dilated appendix 3. Increased drain output thought to be related to ascites from third spacing has improved. PLAN: -Advance diet as tolerated -Continue antibiotics -Continue supportive care -Continue pain management -Continue to work with physical therapy -DVT prophylaxis subcu heparin Physician Slat Basket Top Maker note has been reviewed by physician. Signing provider agrees with the documented findings, assessment, and plan of care. Objective - Vital Signs Vital signs: Vital Signs Temp 98.6 F 02/06/24 13:21 Pulse 75 02/06/24 13:21 Resp 20 02/06/24 13:21 BP 145/66 02/06/24 13:21 Pulse Ox 96 02/06/24 13:21 FiO2 50 01/25/24 14:50 Intake & Output 02/05/24 02/06/24 02/06/24 18:59 06:59 18:59 Output Total 1400 400 Balance -1400 -400 Weight 85.5 kg Output: Drainage 0 Right Lower Abdomen 0 Urine 1400 400 Other: Voiding Method Indwelling Catheter Indwelling Catheter Indwelling Catheter # Bowel Movements 1 - Labs CBC & Chem 7: 02/04/24 07:04 02/04/24 07:04 Labs: Abnormal Lab Results - Last 24 Hours (Table) 02/05/24 02/05/24 02/06/24 Range/Units 16:45 20:17 05:04 POC Glucose (mg/dL) 142 H 149 H 136 H (70-110) mg/dL
[2024-02-06 16:21] LABS: Glucose,Whole Blood 72 mg/dL (70-110)
[2024-02-06 18:41] LABS: Glucose,Whole Blood 88 mg/dL (70-110)
[2024-02-06 20:45] LABS: Glucose,Whole Blood 85 mg/dL (70-110)
--- NOTE | 2024-02-06 21:37 | CDI ---
Documentation Clarification Form Date: 02/06/2024 08:53:16 PM From: Vivian Rebolledo RN, CCDS Phone: [phone] Admit Date: 01/22/2024 09:30:00 PM Patient Name: Tim Coleman Visit Number: [id number] Discharge Date: ATTENTION: The Clinical Documentation Specialists (CDI) and [facility] Coding Staff appreciate your assistance in clarifying documentation. Please respond to the clarification below the line at the bottom and electronically sign. The CDI & [facility] Coding staff will review the response and follow-up if needed. Please note: Queries are made part of the Legal Health Record. If you have any questions, please contact the author of this message via ITS. Dr. Leodan Blake Post-operative complication include extreme agitation and delirium documented in the ongoing progress note starting on 02/04/24 and patient had Laparoscopic cholecystectomy turned open appendectomy on . Additional clarification is requested regarding the relationship, if any, that exists between the diagnosis and the procedure. Patients Admitting Diagnosis: Chronic cholecystitis with suspected bile leak. Sepsis Post-Operative Diagnosis: Same Procedure performed: Laparoscopic cholecystectomy turned open appendectomy. History/Risk Factors: COPD, DM, HTN, GERD, BPH, CAD with CABG, Dementia, Depression and anxiety, diastolic CHF Clinical Indicators: 67-[id number]-wdx-male present to ED or RLQ abdominal pain. BP 127/75 HR 87 T 98.7F RR 18 94% on RA. He has advanced dementia. CBC and CMP significant for WBC 18.3, Hg 12.8, bicarb 19, BUN 22, Cr 1.32, glu 133, alk phos 135, alb 3.4. Lactic acid 3.1. BP 127/75 HR 87 T 98.7F RR 18 94% on RA. 01/26 attending progress notes: He has since been extubated, but remained on Precedex for agitation. 01/26 Pulmonary progress note: Patient gets agitated, he does have underlying dementia, and keeps trying to get out of bed. Hence we will continue the Precedex today, will add Ativan 0.5 mg IV push every 2 hours as needed. Patient was reevaluated today on 01/27/2024, patient is doing fairly well except for his episodes of agitation, patient has severe underlying dementia, Treatment: ICU/Telemetry monitoring Precedex 0.4 mcg/kg/hr. per orders 01/23-01/25 Haldol 2 MG IVP PRN 01/26-01/30 Ativan 0.5 MG IV Q4 HRS PRN 01/26-02/04 Seroquel 25 MG PO BID 01/28-01/29 What relationship, if any, exists between the diagnoses of Post-operative complications included extreme agitation and delirium, and the procedure: [ x ] Post-operative complications included extreme agitation and delirium, is a complication of surgical procedure. [ ] Post-operative complications included extreme agitation and delirium, is an expected outcome of the surgical procedure. [ ] Post-operative complications included extreme agitation and delirium, is related to patients co-morbid condition(s) of advanced dementia, anxiety, & not a complication of the procedure [ ] Other please specify ____ [ ] Unable to determine (Template Last Revised: January 2021) MTDD
[2024-02-07 02:19] LABS: Glucose,Whole Blood 109 mg/dL (70-110)
[2024-02-07 06:14] LABS: Glucose,Whole Blood 140 mg/dL (70-110)
[2024-02-07 07:50] VITALS: RESP 18
[2024-02-07 09:07] LABS: Glucose,Whole Blood 154 mg/dL (70-110)
[2024-02-07 09:59] LABS: Anisocytosis Slight; HCT 31.7 % (39.0-53.0); HGB 9.7 gm/dL (13.0-17.5); Hypochromasia Moderate; MCH 26.2 pg (25.0-35.0); MCHC 30.7 g/dL (31.0-37.0); MCV 85.2 fL (80.0-100.0); Mean Platelet Volume 7.3; Platelet Count 611 k/uL (150-450); RBC 3.72 m/uL (4.30-5.90); RDW 17.1 % (11.5-15.5); WBC 9.2 k/uL (3.8-10.6)
[2024-02-07 10:16] LABS: African American GFR (CKD) >90 (>60 ml/min/1.73 sqM); Anion Gap 6 mmol/L; Blood Urea Nitrogen 7 mg/dL (9-20); Calcium 7.6 mg/dL (8.4-10.2); Carbon Dioxide 21 mmol/L (22-30); Chloride 111 mmol/L (98-107); Glucose 135 mg/dL (74-99); Non-African American GFR(CKD) 86 (>60 ml/min/1.73 sqM); Potassium 4.2 mmol/L (3.5-5.1); Sodium 138 mmol/L (137-145)
--- NOTE | 2024-02-07 10:30 | XR ---
EXAMINATION TYPE: XR chest 1V portable DATE OF EXAM: 02/07/2024 COMPARISON: 02/01/2024 HISTORY: Shortness of breath TECHNIQUE: Single frontal view of the chest is obtained. FINDINGS: Persistent bilateral consolidation and small effusion greater on the left. Mild central ve nous congestion in the differential diagnosis. Tiny amount of fluid or thickening of the minor fissur e. Post median sternotomy changes, cardiomegaly and atherosclerotic change aorta. Post aortic valve repl acement surgery. Arthropathy of the shoulders. Degenerative change of the spine. Calcification along the right humeral head can be associated with calcific tendinosis of the rotator cuff. IMPRESSION: 1. Persistent bilateral consolidation and small effusion greater on the left correlate for mild venou s congestion.
--- NOTE | 2024-02-07 11:03 | P.DS ---
Providers Date of admission: 01/22/24 21:30 Expected date of discharge: 02/07/24 Attending physician: Evelyn Montano MD Consults: 01/23/24 08:44 Consult Physician Routine Consulting Provider: Nraesh Patel Consult Reason/Comments: abd pain, colitis, possible appendicitis, cholecystostomy dislodgement Do you want consulting provider notified?: Yes 01/23/24 19:54 Consult Physician Stat Consulting Provider: Chandler Brice Consult Reason/Comments: abd pain, open cholecystectomy, to remain intubated Do you want consulting provider notified?: Yes 01/23/24 21:11 Consult Physician Routine Consulting Provider: Chandler Brice Consult Reason/Comments: ICU management Do you want consulting provider notified?: Already Contacted 01/30/24 11:35 Consult Physician Routine Consulting Provider: Nain Lin Consult Reason/Comments: Urinary catheter exchange Do you want consulting provider notified?: Yes Primary care physician: [facility] Course: 78 year old M with PMH of COPD, DM, HTN, GERD, BPH, CAD with CABG, Dementia, Depression and anxiety, diastolic CHF, h/o TAVR presented to the ED for RLQ abdominal pain. Recently hospitalized from 12/23-01/02 for cholecystitis, NSTEMI and SAMANTHA. Found to be high risk for surgery, underwent cholecystostomy, discharged on PO antibiotics. He presents back to the hospital for RLQ pain that started on Tuesday. In the ED he underwent extensive evaluation. BP 127/75 HR 87 T 98.7F RR 18 94% on RA. CBC and CMP significant for WBC 18.3, Hg 12.8, bicarb 19, BUN 22, Cr 1.32, glu 133, alk phos 135, alb 3.4. Lactic acid 3.1. CT AP showed foci of gas in the upper abdomen, retraction of the percutaneous cholecystostomy tube, colitis of the transverse colon to the rectum and dilated appedix concerning for appendicitis. He underwent laparascopic cholecystectomy turned open appendectomy on 01/[address] Patel. Transferred to the ICU on a ventilator, extubated on 01/24. Post operative complications included extreme agitation and delirium, treated with Precedex drip and ativan. Precedex drip discontinued on 01/26. He continued to receive intermittent Ativan and Haldol. Started on Seroquel which seems to be improving his delirium. Developed a Tmax 102.2F on 01/29 while maintained on Zosyn since admission. Fluconazole added for intertrigo on 01/28. NG tube placed on 01/27 for nutritional support. Initially, plans were for PEG tube however ST evaluated, MBS shows no signs of aspiration, started on FLD. 02/03 Patient was seen and examined. Appears less agitated. Sleeping comfortably. Plans to discontinue Seroquel due to oversedation. Able to eat 25% of his breakfast and lunch, refused dinner. His leukocytosis resolved as of yesterday. CBC Hg 9.1, Hct 29.6. BMP Cl 110, BUN 23, glu 115, Ca 7.5. Tmax 99.2F over the past 24H. Maintained on Zosyn (D12) and Fluconazole (D6). 02/04 Patient was seen and examined. Appears less agitated. More awake than yesterday. Able to eat 25% of his lunch, refused breakfast and dinner. No new labs are done today. Maintained on Zosyn (D13) and Fluconazole (D7). Discussed with Dr. Johnson, possible need for PEG. 02/05 Patient was seen and examined. Appears less agitated. More awake than yesterday. Able to eat 25% of his breakfast and 50% of lunch and dinner. No new labs are done today. Maintained on Zosyn (D14) and Fluconazole (D8). Initially plans were to discharge to [facility] but no bed available and discharge was cancelled. 02/06 Patient was seen and examined. Less agitated. Complains of some shortness of breath. CXR done today shows persistent bilateral consolidation, mild venous congestion. We will give him one dose of Lasix 40 mg IV and he can continue Lasix 40 mg PO QD at SNF. Plans for discharge to SNF today. Patient to complete 7 days of Augmentin. Ativan 1 mg PO TID PRN for anxiety or agitation. Continue FLD on discharge and advance as tolerated. Follow up with Dr. Patel within 7 days of discharge. Patient is high risk for re-admission. General: Nontoxic, no distress, appears at stated age Derm: Warm, dry, scrotal erythema Head: Atraumatic, normocephalic, symmetric Eyes: EOMI, no lid lag, anicteric sclera Mouth: No lip lesion, mucus membranes moist Cardiovascular: S1S2 reg, no murmur Lungs: CTA bilateral, no rhonchi, no rales, no accessory muscle use, supplemental oxygen Abdominal: Soft, nontender to palpation, no guarding, no appreciable organomegaly, NG tube in place, JUNE drain in place Ext: No gross muscle atrophy, no contractures, pitting edema Neuro: Moving all extremities, following commands, alert and oriented x 1 Psych: Appears less agitated today Discharge Diagnosis: Acute encephalopathy: Multifactorial. ICU delirium. Sepsis. Narcotic induced Acute delirium: Resolving. Severe protein calorie malnutrition: ST and Dietitian on board. Passed MBS. Started on FLD. Sepsis, present on admission Acute appendicitis: Completed 14 Days of Zosyn. 7 days of Augmentin by mouth. Chemical peritonitis, secondary to bile leak Recent gangrenous cholecystitis Intertrigo: Completed 8 days of Fluconazole. Acute hypoxic respiratory failure: Currently 93% on RA. Resolving. Diabetes mellitus with hyperglycemia: Levemir 30 units SQ QD. ISS. Resolved: SAMANTHA, Acute blood loss anemia Chronic conditions: Diastolic CHF, h/o TAVR, COPD not in acute exacerbation, HTN, GERD, BPH, Dementia, Anxiety and Depression This complex discharge took 35 minutes to complete. Patient Condition at Discharge: Stable Plan - Discharge Summary New Discharge Prescriptions: New Insulin Detemir (Levemir) [Levemir] 30 unit SQ DAILY@0700 each Lidocaine 4% Patch 1 patch TOPICAL DAILY patch Nystatin 100,000 Unit/gm Powd [Mycostatin Powder] 1 applic TOPICAL TID each HYDROcodone/APAP 10-325MG [[place] 10-325] 1 each PO Q4H PRN #18 tab PRN Reason: Moderate Pain (Scale 4 To 6) LORazepam [Ativan] 1 mg PO BID PRN 3 Days #6 tab PRN Reason: Agitation Or Acute Anxiety Continue Omeprazole [PriLOSEC] 20 mg PO DAILY Donepezil [Aricept] 10 mg PO HS #30 Tamsulosin HCl [Flomax] 0.4 mg PO DAILY Fluticasone Nasal [place] [Flonase Nasal [place]] 2 spr EA NOSTRIL DAILY PRN PRN Reason: Nasal Congestion Cholecalciferol [Vitamin D3 (125 Mcg = 5000 Iu)] 125 mcg PO HS Furosemide [Lasix] 40 mg PO DAILY Atorvastatin [Lipitor] 80 mg PO HS Empagliflozin [Jardiance] 10 mg PO DAILY Acetaminophen Tab [Tylenol] 650 mg PO Q4HR PRN tab PRN Reason: Fever And/ Or Mild Pain (1-3) Aspirin 81 mg PO DAILY #30 tab Amoxic-Pot Clav 875-125Mg [Augmentin 875-125] 1 tab PO Q12HR 7 Days #14 tab amLODIPine [Norvasc] 10 mg PO DAILY #0 INSULIN LISPRO (HumaLOG) [humaLOG] See Protocol SQ ACHS Potassium Chloride ER [K-Dur 10] 10 meq PO HS Albuterol Nebulized [Ventolin Nebulized] 2.5 mg INHALATION RT-QID PRN PRN Reason: Shortness Of Breath Zguard 1 applic TOPICAL BID Ondansetron [Zofran] 4 mg PO Q8HR PRN PRN Reason: Nausea And Vomiting hydrALAZINE HCL 10 mg PO TID Zguard 1 applic TOPICAL DIRECTED PRN PRN Reason: cleanse Discontinued Insulin Glargine,Hum.rec.anlog [Lantus Solostar Pen] 68 unit SQ W/LUNCH Amitriptyline HCl [Elavil] 25 mg PO HS Discharge Medication List Omeprazole [PriLOSEC] 20 mg PO DAILY 02/23/15 [History] Donepezil [Aricept] 10 mg PO HS #30 03/13/15 [Rx] Tamsulosin HCl [Flomax] 0.4 mg PO DAILY 03/07/17 [History] Potassium Chloride ER [K-Dur 10] 10 meq PO HS 03/16/22 [History] Albuterol Nebulized [Ventolin Nebulized] 2.5 mg INHALATION RT-QID PRN 04/16/23 [History] Fluticasone Nasal [place] [Flonase Nasal [place]] 2 spr EA NOSTRIL DAILY PRN 04/16/23 [History] Atorvastatin [Lipitor] 80 mg PO HS 05/11/23 [History] Cholecalciferol [Vitamin D3 (125 Mcg = 5000 Iu)] 125 mcg PO HS 05/11/23 [History] Furosemide [Lasix] 40 mg PO DAILY 05/11/23 [History] Empagliflozin [Jardiance] 10 mg PO DAILY 11/23/23 [History] Acetaminophen Tab [Tylenol] 650 mg PO Q4HR PRN tab 01/11/24 [Rx] Amoxic-Pot Clav 875-125Mg [Augmentin 875-125] 1 tab PO Q12HR 7 Days #14 tab 01/02/24 [Rx] Aspirin 81 mg PO DAILY #30 tab 01/02/24 [Rx] amLODIPine [Norvasc] 10 mg PO DAILY #0 01/02/24 [Rx] INSULIN LISPRO (HumaLOG) [humaLOG] See Protocol SQ ACHS 01/23/24 [History] Ondansetron [Zofran] 4 mg PO Q8HR PRN 01/23/24 [History] Zguard 1 applic TOPICAL DIRECTED PRN 01/23/24 [History] Zguard 1 applic TOPICAL BID 01/23/24 [History] hydrALAZINE HCL 10 mg PO TID 01/23/24 [History] HYDROcodone/APAP 10-325MG [[place] 10-325] 1 each PO Q4H PRN #18 tab 02/06/24 [Rx] Insulin Detemir (Levemir) [Levemir] 30 unit SQ DAILY@0700 each 02/06/24 [Rx] Lidocaine 4% Patch 1 patch TOPICAL DAILY patch 02/06/24 [Rx] Nystatin 100,000 Unit/gm Powd [Mycostatin Powder] 1 applic TOPICAL TID each 02/06/24 [Rx] LORazepam [Ativan] 1 mg PO BID PRN 3 Days #6 tab 02/07/24 [Rx] Follow up Appointment(s)/Referral(s): Naresh Patel MD [Medical Doctor] - 1 Week Valente Sharma MD [Primary Care Provider] - 1-2 days Mack Dukes [NON-STAFF] - 1 Week Activity/Diet/Wound Care/Special Instructions: Diet: Full liquid diet, mashed potatoes and gravy with tomato soup Discharge Disposition: TRANSFER TO SNF/F
[2024-02-07] MEDS: FUROSEMIDE 10 MG/ML 4 ML VIAL IV STA (11:09)
--- NOTE | 2024-02-07 11:12 | P.PN ---
Subjective Progress Note Date: 02/07/24 Patient was reevaluated today on 2023, patient remains in the ICU, patient had a temp of 101.6 last night, continues to have intermittent episodes of agitations requiring Haldol and Ativan, today we added Seroquel 25 mg twice daily to be given via nasogastric tube. Patient remains on enteral feeding Glucerna at 55 mL/h. Patient is still receiving IV fluid at 0.9 normal saline, 100 cc/h, urine output is marginal, hence I am recommending Lasix to be given. Blood sugar is high today above 400, patient will be started on Levemir insulin at 20 units/day and considering his sodium seems to be on the rise, I am recommending changing his IV fluid to D5W at 100 cc/h. Patient remains on Zosyn, the main issue with this patient seems to be issues related to his agitation and profound dementia. WBC count is 12.3 hemoglobin 10.3 basic metabolic profile showed sodium of 145 chloride 120 BUN is 29 creatinine 1.08, patient remains on sliding scale insulin and now he is on Levemir 20 units daily. The patient was seen today January 30, 2024 in follow-up in the intensive care unit. He is currently resting in bed. He is currently maintaining O2 saturations in the 90s on 6 L/min per nasal cannula. He did have fevers yesterday. He is currently afebrile. Dopplers of the lower extremity were ne gative for DVT. CT angiogram revealed no evidence of pulmonary embolism. There is moderate left and mild to moderate right pleural effusions. Adjacent lung opacities likely representing atelectasis. Nasogastric tube in place. Chest x- ray today reveals no acute pulmonary process. Blood cultures revealed no growth. Sputum culture revealed no growth. White count 9.7. Hemoglobin 10.1. Platelets 214. Sodium 145. Potassium 3.6. Bicarb 22. BUN 25. Creatinine 0.93. Glucose 250. The patient is seen today January 31, 2024 in follow-up in the intensive care unit. He is currently resting in bed. He is confused and pulling off his gown. airport operations crew member remains at the bedside. He is continued on oxygen at 6 L high flow nasal cannula to maintain O2 saturations in the 90s. Did have a temp of 102.2 last evening again. He is tachypneic. Nasogastric tube remains in place.'s x-ray reveals by basilar opacities. Blood culture revealed no growth. Sputum culture revealed no growth. White count 12.0. Hemoglobin 10.1. Platelets 201. Sodium 141. Potassium 4.3. Bicarb 22. BUN 29. Creatinine 0.89. Glucose 275. Stool negative for to C. difficile toxin. He is continued on fluconazole and Zosyn. Remains on IV diuretics. Heparin for DVT prophylaxis. He is being nourished with Glucerna 1.5 at 55 MLS per hour which is goal. The patient is seen today February 01, 2024 in follow-up in the intensive care unit. He is currently resting in bed. He is awake, asking for coffee. Con fused to time and place. He is being nourished with Glucerna at 55 MLS per hour which is goal via NG tube. Maintaining O2 saturation in the 90s on 2 L/min per nasal cannula. White count 18.2. Hemoglobin 9.7. Platelets 195. Sodium 143. Potassium 5.0. Bicarb 26. BUN 33. Creatinine 0.94. Glucose 234. He remains on fluconazole and Zosyn. Remains on IV diuretics. Heparin for DVT prophylax is. Chest x-ray reveals stable retrocardiac left basilar consolidation. Airspace disease in the right base is improving. Sputum culture revealed no growth. Blood culture revealed no growth. The patient is seen today February 02, 2024 in follow-up in the intensive care unit. He is awake. Restless. airport operations crew member remains at the bedside. He is maintaining O2 saturations in the 90s on 2 L/min per nasal cannula. Afebrile. Hemodynamically stable. White count 12.5. Hemoglobin 9.2. Platelets 248. Sodium 147. Potassium 4.3. Bicarb 29. BUN 35. Creatinine 0.90. Glucose 152. He remains on fluconazole and Zosyn. Remains on IV diuretics. Heparin for DVT prophylaxis. Currently in a positive balance. The plan is for PEG tube placement today. Currently NPO. He had been nourished with Glucerna at 55 MLS per hour which is his goal with 200 mL of free water flushes every 6 hours. The patient is seen today February 03, 2024 in follow-up on the regular medical floor. He was transferred out of the intensive care unit yesterday. He is resting comfortably in bed. Maintaining O2 saturations in the 90s on 2 L/min per nasal cannula. Normal saline at 20 MLS per hour. He did undergo a barium swallow with video yesterday and was found to have a functional swallow evaluation. As for PEG tube placement were canceled. White count 9.6. Hemoglobin 9.1. Platelets 315. Sodium 139. Potassium 4.1. Bicarb 28. BUN 31. Creatinine 0.99. Glucose 174. He remains on fluconazole and Zosyn. Heparin for DVT prophylaxis. Remains on oral diuretics. He is currently on a full liquid diet. The patient is seen today February 04, 2024 in follow-up on the regular medical floor. He is currently resting fairly comfortably in bed. Awake and alert. He is maintaining O2 saturations in the 90s on room air. He has normal staying at 20 mph. He still has a loose occasional cough. Afebrile. Hemodynamically stable. Blood, sputum and stool cultures all revealed no growth. White count 7.5. Hemoglobin 9.1. Platelets 341. Sodium 142. Potassium 4.1. Bicarb 26. BUN 23. Creatinine 1.12. Glucose 115 he remains on fluconazole. Remains on oral diuretics. Heparin for DVT prophylaxis. Continued on antibiotics in the form of Zosyn Progress note dated February 05, 2024. The patient is seen in room 463. The patient has not been here in the hospital, for 14 days. He remains on room air. Saturations are 92%. He continues on Zosyn. He is not receiving any IV fluids. According to the nurse, he ate very little of his food. He is in no respiratory distress at this time. No new lab oratory data today other than a glucose of 155. The lab work from February 03, has been reviewed. Blood, sputum, and stool sampling has all been negative or pending. No recent chest x-ray to report. On today's evaluation of 02/06/2024, the patient is being seen for a follow-up. This patient is post open cholecystectomy that was done on 01/23/2024. JUNE drain is in place. Output is serosanguineous at this point in time. No nausea vomiting or abdominal pain. No chest pain. No shortness of breath. No recent blood work from today. Cultures were all negative and the patient remains on Diflucan and Zosyn. He remains on IV Protonix. He is on heparin subcu for DVT prophylaxis. He is also on his routine outpatient medications. Pain is under adequate control with Percocet. In terms of oxygen requirements, he is on room air oxygen with a pulse ox of 95%. On today's evaluation of 02/07/2024, the patient is resting comfortably in bed. No new complaints. He is post open cholecystectomy that was done on 01/23/2024 and the JUNE drain remains in place with serosanguineous output. He is alert and oriented x 1-2. He remains on a combination of Zosyn and Diflucan. Clinically stable and hemodynamically stable. No significant agitation. He is on Lasix 40 mg p.o. daily. He is also on Ativan 1 mg p.o. 3 times daily on as-needed basis for increased agitation and anxiety. He is possibly going to [facility] on the [facility] today. Blood work shows a stable white cell count of 9.2 with a hemoglobin 9.7 and a platelet count of 611. BUN is at 7 with a creatinine of 0.8 and a sodium level is at 138. His acute delirium seems to be resolving and the patient does not show any active signs of agitation at this point in time. Pulse ox 93% room air oxygen. Antibiotics will be switched to oral Augmentin. Objective - Vital Signs Vital signs: Vital Signs Temp 98.1 F 02/07/24 07:16 Pulse 76 02/07/24 07:16 Resp 18 02/07/24 07:16 BP 144/70 02/07/24 07:16 Pulse Ox 93 L 02/07/24 07:16 FiO2 50 01/25/24 14:50 Intake & Output 02/06/24 02/07/24 02/07/24 18:59 06:59 18:59 Output Total 10 Balance -10 Weight 80 kg Output: Drainage 10 Right Lower Abdomen 10 Other: Voiding Method Indwelling Catheter Indwelling Catheter - Exam GENERAL EXAM: 78-year-old obese male, oriented x 1, resting comfortably in bed, on room air. HEAD: Normocephalic and atraumatic EYES: Normal reaction of pupils, equal size. NOSE: Clear with pink turbinates. Nasogastric tube in place. THROAT: No erythema or exudates. NECK: No masses, no JVD. CHEST: No chest wall deformity. LUNGS: Fine crackles at the bases. CVS: S1 and S2 normal with no audible murmur, regular rhythm. No extra heart sounds ABDOMEN: Postsurgical abdomen with lateral incisional dressing intact and dry. The patient has a JUNE drain in his right upper quadrant. CENTRAL NERVOUS SYSTEM: Confused, gets agitated easily. EXTREMITIES: There is no peripheral edema, clubbing, or cyanosis. Peripheral pulses are intact. Chronic venous stasis changes noted lower extremity SKIN: No rashes - Labs CBC & Chem 7: 02/07/24 09:05 02/07/24 09:05 Labs: Abnormal Lab Results - Last 24 Hours (Table) 02/07/24 02/07/24 Range/Units 06:13 09:06 POC Glucose (mg/dL) 140 H 154 H (70-110) mg/dL Assessment and Plan Plan: Chronic cholecystitis status post open cholecystectomy and appendectomy 01/23/2024. Patient was extubated on 01/25/2024 stable and on room air. He modynamically stable. Clinically stable. Maintained on a combination of Zosyn and Diflucan. JUNE drain in the right upper quadrant is showing some minimal serosanguineous drainage. Advanced dementia Acute blood loss anemia expected outcome of surgery Chronic kidney disease stage III, creatinine normal at 0.8 on today's evaluation History of aortic stenosis and previous TAVR History of coronary arteriosclerosis and previous CABG Chronic atrial fibrillation Dyslipidemia Type 2 diabetes History of BPH Benign essential hypertension Plan: Stable and on room air Currently on full liquid diet Management of JUNE's per general surgery Discharge planning is in progress. The patient can be switched to Augmentin orally on outpatient basis. Likely going to [facility] on the [facility] today. Labs were reviewed. No significant abnormalities. Respiratory status is stable. Mental status is also stable.
[2024-02-07 11:35] LABS: Glucose,Whole Blood 121 mg/dL (70-110)
--- NOTE | 2024-02-07 12:57 | P.PN ---
Subjective Progress Note Date: 02/07/24 CHIEF COMPLAINT: Chronic cholecystitis HISTORY OF PRESENT ILLNESS: Patient is status post laparoscopic cholecystectomy turned open and open appendectomy on 01/23/24. He is sitting up in bed comfortably. Patient does complain of pain all over. Denies any worsening abdominal pain. Denies any vomiting. Appetite is still decreased. But he does tolerate the diet. JUNE drain with minimal serous output. Afebrile. WBC 9.2 Hgb 9.7 PHYSICAL EXAM: VITAL SIGNS: Reviewed. GENERAL: no acute distress. ABDOMEN: Soft. Incisional dressing clean dry and intact. Mild tenderness with palpation of incision. JUNE drain serous Neuro patient is awake and alert answering questions. ASSESSMENT: 1. Chronic cholecystitis with focal gangrenous changes, bile leak 2. Dilated appendix 3. Increased drain output thought to be related to ascites from third spacing has improved. PLAN: -Patient can be discharge from surgical standpoint -JUNE drain to be discontinued prior to discharge Physician Adult Basic Studies Teacher note has been reviewed by physician. Signing provider agrees with the documented findings, assessment, and plan of care. Objective - Vital Signs Vital signs: Vital Signs Temp 98.1 F 02/07/24 07:16 Pulse 76 02/07/24 07:16 Resp 18 02/07/24 07:16 BP 144/70 02/07/24 07:16 Pulse Ox 93 L 02/07/24 07:16 FiO2 50 01/25/24 14:50 Intake & Output 02/06/24 02/07/24 02/07/24 18:59 06:59 18:59 Output Total 10 Balance -10 Weight 80 kg Output: Drainage 10 Right Lower Abdomen 10 Other: Voiding Method Indwelling Catheter Indwelling Catheter External Catheter - Labs CBC & Chem 7: 02/07/24 09:05 02/07/24 09:05 Labs: Abnormal Lab Results - Last 24 Hours (Table) 02/07/24 02/07/24 02/07/24 Range/Units 06:13 09:05 09:05 RBC 3.72 L (4.30-5.90) m/uL Hgb 9.7 L (13.0-17.5) gm/dL Hct 31.7 L (39.0-53.0) % MCHC 30.7 L (31.0-37.0) g/dL RDW 17.1 H (11.5-15.5) % Plt Count 611 H (150-450) k/uL Chloride 111 H (98-107) mmol/L Carbon Dioxide 21 L (22-30) mmol/L BUN 7 L (9-20) mg/dL Glucose 135 H (74-99) mg/dL POC Glucose (mg/dL) 140 H (70-110) mg/dL Calcium 7.6 L (8.4-10.2) mg/dL 02/07/24 02/07/24 Range/Units 09:06 11:33 RBC (4.30-5.90) m/uL Hgb (13.0-17.5) gm/dL Hct (39.0-53.0) % MCHC (31.0-37.0) g/dL RDW (11.5-15.5) % Plt Count (150-450) k/uL Chloride (98-107) mmol/L Carbon Dioxide (22-30) mmol/L BUN (9-20) mg/dL Glucose (74-99) mg/dL POC Glucose (mg/dL) 154 H 121 H (70-110) mg/dL Calcium (8.4-10.2) mg/dL
[2024-02-07 15:27] VITALS: BP 152/78; PULSE 74; TEMP 97.5
[2024-02-07 16:37] LABS: Glucose,Whole Blood 91 mg/dL (70-110)
== END 2024-02-07 18:33 | DRG 853 ==
LOC: EC 15:56 → 5NMEDONC 21:30 → 2SICU 01-23 20:24 → 4SSUR 02-02 17:37
PROVIDERS: ADMIT Internal Medicine; ATTEND Internal Medicine
PROC: 0DTJ0ZZ Resection of Appendix, Open Approach (ICD-10-PCS; principal; 2024-01-23 17:16)
PROC: 0FT40ZZ Resection of Gallbladder, Open Approach (ICD-10-PCS; principal; 2024-01-23 17:16)
PROC: 0FJ44ZZ Inspection of Gallbladder, Percutaneous Endoscopic Approach (ICD-10-PCS; principal; 2024-01-23 17:16)
PROC: 05HC33Z Insertion of Infusion Device into Left Basilic Vein, Percutaneous Approach (ICD-10-PCS; 2024-01-24 10:00)
PROC: 0DH67UZ Insertion of Feeding Device into Stomach, Via Natural or Artificial Opening (ICD-10-PCS; 2024-01-27)
PROC: 3E0G76Z Introduction of Nutritional Substance into Upper GI, Via Natural or Artificial Opening (ICD-10-PCS; 2024-01-27)
DX: A41.9 Sepsis, unspecified organism (principal); E43 Unspecified severe protein-calorie malnutrition; G93.41 Metabolic encephalopathy; J96.01 Acute respiratory failure with hypoxia; F03.94 Unspecified dementia, unspecified severity, with anxiety; F03.93 Unspecified dementia, unspecified severity, with mood disturbance; I48.20 Chronic atrial fibrillation, unspecified; D62 Acute posthemorrhagic anemia; F05 Delirium due to known physiological condition; J98.11 Atelectasis; K35.80 Unspecified acute appendicitis; N17.9 Acute kidney failure, unspecified; I50.32 Chronic diastolic (congestive) heart failure; I13.0 Hypertensive heart and chronic kidney disease with heart failure and stage 1 through stage 4 chronic kidney disease, or unspecified chronic kidney disease; E87.20 Acidosis, unspecified; K81.2 Acute cholecystitis with chronic cholecystitis; R18.8 Other ascites; T85.638A Leakage of other specified internal prosthetic devices, implants and grafts, initial encounter; J44.9 Chronic obstructive pulmonary disease, unspecified; I27.20 Pulmonary hypertension, unspecified; E11.40 Type 2 diabetes mellitus with diabetic neuropathy, unspecified; E11.22 Type 2 diabetes mellitus with diabetic chronic kidney disease; E11.649 Type 2 diabetes mellitus with hypoglycemia without coma; F32.A Depression, unspecified; I35.2 Nonrheumatic aortic (valve) stenosis with insufficiency; E66.9 Obesity, unspecified; N18.30 Chronic kidney disease, stage 3 unspecified; E11.51 Type 2 diabetes mellitus with diabetic peripheral angiopathy without gangrene; Z95.3 Presence of xenogenic heart valve; Z95.4 Presence of other heart-valve replacement; T83.031A Leakage of indwelling urethral catheter, initial encounter; Z79.4 Long term (current) use of insulin; Z53.31 Laparoscopic surgical procedure converted to open procedure; K21.9 Gastro-esophageal reflux disease without esophagitis; N40.0 Benign prostatic hyperplasia without lower urinary tract symptoms; I25.10 Atherosclerotic heart disease of native coronary artery without angina pectoris; I44.7 Left bundle-branch block, unspecified; I44.0 Atrioventricular block, first degree; E78.5 Hyperlipidemia, unspecified; M19.90 Unspecified osteoarthritis, unspecified site; G89.29 Other chronic pain; K52.9 Noninfective gastroenteritis and colitis, unspecified; T40.605A Adverse effect of unspecified narcotics, initial encounter; K82.A1 Gangrene of gallbladder in cholecystitis; R32 Unspecified urinary incontinence; L30.4 Erythema intertrigo; Z68.26 Body mass index [BMI] 26.0-26.9, adult; R45.1 Restlessness and agitation; B35.6 Tinea cruris; Z95.1 Presence of aortocoronary bypass graft; Z86.16 Personal history of COVID-19; Z79.899 Other long term (current) drug therapy; Z79.84 Long term (current) use of oral hypoglycemic drugs; Z79.82 Long term (current) use of aspirin; I25.2 Old myocardial infarction; Z87.01 Personal history of pneumonia (recurrent); Z91.81 History of falling
CPT/HCPCS: 36410; 36415; 36600; 71045; 71275; 74018; 74177; 74230; 76937; 80048; 80053; 80076; 81001; 82805; 83036; 83605; 83690; 83735; 84100; 84450; 84460; 85025; 85027; 85379; 87040; 87045; 87046; 87070; 87205; 87324; 88304; 88312; 93970; 94002; 94003; 94660; 94760; 96361; 96374; 96375; 99285

== ENCOUNTER 2024-02-16 11:22 | Emergency (ER) | payer MEDICARE, BC ==
[2024-02-16 11:49] VITALS: RESP 18; TEMP 98.3
[2024-02-16] MEDS: ZIPRASIDONE 20 MG VIAL IM STA ×3 (13:41→15:25)
[2024-02-16 13:56] LABS: Anisocytosis Slight; Basophils # (A) 0.1 k/uL (0-0.2); Basophils % (A) 1 %; Eosinophils # (A) 0.3 k/uL (0-0.7); Eosinophils % (A) 5 %; HCT 36.7 % (39.0-53.0); HGB 10.9 gm/dL (13.0-17.5); Hypochromasia Marked; Lymphocytes # (A) 1.4 k/uL (1.0-4.8); Lymphocytes % (A) 21 %; MCH 25.7 pg (25.0-35.0); MCHC 29.7 g/dL (31.0-37.0); MCV 86.5 fL (80.0-100.0); Mean Platelet Volume 6.9; Monocytes # (A) 0.4 k/uL (0-1.0); Monocytes % (A) 6 %; Neutrophils # (A) 4.1 k/uL (1.3-7.7); Neutrophils % (A) 64 %; Platelet Count 502 k/uL (150-450); RBC 4.24 m/uL (4.30-5.90); RDW 17.1 % (11.5-15.5); WBC 6.4 k/uL (3.8-10.6)
[2024-02-16 14:10] LABS: ALT 49 U/L (4-49); AST 71 U/L (17-59); African American GFR (CKD) 80 (>60 ml/min/1.73 sqM); Albumin 3.1 g/dL (3.5-5.0); Alkaline Phosphatase 194 U/L (38-126); Amylase 56 U/L (30-110); Anion Gap 12 mmol/L; Blood Urea Nitrogen 11 mg/dL (9-20); Calcium 8.8 mg/dL (8.4-10.2); Carbon Dioxide 22 mmol/L (22-30); Chloride 107 mmol/L (98-107); Glucose 199 mg/dL (74-99); Lipase 138 U/L (23-300); Non-African American GFR(CKD) 69 (>60 ml/min/1.73 sqM); Potassium 4.8 mmol/L (3.5-5.1); Sodium 141 mmol/L (137-145); Total Bilirubin 0.6 mg/dL (0.2-1.3); Total Protein 7.4 g/dL (6.3-8.2)
--- NOTE | 2024-02-16 15:53 | ED ---
General Adult HPI <Hero Leach - Last Filed: 02/18/24 05:09> - General Source: patient, RN notes reviewed, old records reviewed Mode of arrival: ambulatory Limitations: no limitations <Shamar Paulson - Last Filed: 02/18/24 15:25> - General Chief complaint: Nausea/Vomiting/Diarrhea Stated complaint: Vomiting Time Seen by Provider: 02/16/24 12:38 - History of Present Illness Initial comments: Patient is a 78-year-old male who presents emergency department from surgeons office for CT imaging and labs. Patient has a history of dementia, and had a recent cholecystectomy. Also has a significant history of heart failure, diabetes, hypertension. Patient is unable provide any history other than he had recent surgery. He keeps screaming he would like to go home. He has no family members with him, as they have left at this time. Apparently patient went for postop evaluation and refused to have azul removed by Dr. Patel and also refused to be evaluated. He Said he wanted to go to the hospital complaining of abdominal pain. However upon arrival, he denies any pain and keeps stating he wants to go home. Presents for further evaluation. No family members are present at this time. (Shamar Paulson) - Related Data Home Medications Medication Instructions Recorded Confirmed Omeprazole [PriLOSEC] 20 mg PO DAILY 02/23/15 01/23/24 Tamsulosin HCl [Flomax] 0.4 mg PO DAILY 03/07/17 01/23/24 Potassium Chloride ER [K-Dur 10] 10 meq PO HS 03/16/22 01/23/24 Albuterol Nebulized [Ventolin 2.5 mg INHALATION RT-QID PRN 04/16/23 01/23/24 Nebulized] Fluticasone Nasal Addison [Flonase 2 spr EA NOSTRIL DAILY PRN 04/16/23 01/23/24 Nasal Addison] Atorvastatin [Lipitor] 80 mg PO HS 05/11/23 01/23/24 Cholecalciferol [Vitamin D3 (125 125 mcg PO HS 05/11/23 01/23/24 Mcg = 5000 Iu)] Furosemide [Lasix] 40 mg PO DAILY 05/11/23 01/23/24 Empagliflozin [Jardiance] 10 mg PO DAILY 11/23/23 01/23/24 INSULIN LISPRO (HumaLOG) [humaLOG] See Protocol SQ ACHS 01/23/24 01/23/24 Ondansetron [Zofran] 4 mg PO Q8HR PRN 01/23/24 01/23/24 Zguard 1 applic TOPICAL DIRECTED PRN 01/23/24 01/23/24 Zguard 1 applic TOPICAL BID 01/23/24 01/23/24 hydrALAZINE HCL 10 mg PO TID 01/23/24 01/23/24 Previous Rx's Medication Instructions Recorded Donepezil [Aricept] 10 mg PO HS #30 03/13/15 Acetaminophen Tab [Tylenol] 650 mg PO Q4HR PRN tab 12/01/23 Aspirin 81 mg PO DAILY #30 tab 01/02/24 amLODIPine [Norvasc] 10 mg PO DAILY #0 01/02/24 HYDROcodone/APAP 10-325MG [Cascade 1 each PO Q4H PRN #18 tab 02/06/24 10-325] Insulin Detemir (Levemir) [Levemir] 30 unit SQ DAILY@0700 each 02/06/24 Lidocaine 4% Patch 1 patch TOPICAL DAILY patch 02/06/24 Nystatin 100,000 Unit/gm Powd 1 applic TOPICAL TID each 02/06/24 [Mycostatin Powder] LORazepam [Ativan] 1 mg PO BID PRN 3 Days #6 tab 02/07/24 Amoxic-Pot Clav 875-125Mg 1 tab PO Q12HR 7 Days #14 tab 02/08/24 [Augmentin 875-125] Allergies Allergy/AdvReac Type Severity Reaction Status Date / Time No Known Allergies Allergy Verified 02/16/24 11:31 Review of Systems ROS Other: All systems not noted in ROS Statement are negative. <Hero Leach - Last Filed: 02/18/24 05:09> ROS Other: All systems not noted in ROS Statement are negative. <Shamar Paulson - Last Filed: 02/18/24 15:25> ROS Statement: Those systems with pertinent positive or pertinent negative responses have been documented in the HPI. Review of Systems: CONST: Denies fever EYES: Denies blurry vision ENT: Denies nasal congestion C/V: Denies Chest pain RESP: Denies shortness of breath GI: Denies abdominal pain : Denies dysuria SKIN: Denies rash. MSK: Denies joint pain. NEURO: Denies headache (Shamar Paulson) Past Medical History Past Medical History: Coronary Artery Disease (CAD), Heart Failure, COPD, Dementia, Diabetes Mellitus, GERD/Reflux, Hyperlipidemia, Hypertension, Memory Impairment, Myocardial Infarction (AL), Neurologic Disorder, Osteoarthritis (OA), Pneumonia, Prostate Disorder, Vascular Disorder Additional Past Medical History / Comment(s): Hx falls and diarrhea/incontinence since diagnosed with Covid Oct 2022, daughter thinks he may have had a minor heart attack when he had Covid as well. 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 PAD. Enlarged prostate. Chronic back pain. Hx bronchitis. Sinus issues. Last Myocardial Infarction Date:: 2014 History of Any Multi-Drug Resistant Organisms: None Reported Past Surgical History: Appendectomy, Cholecystectomy, Coronary Bypass/CABG, Orthopedic Surgery Additional Past Surgical History / Comment(s): 2014 CABG 4 vessel/bioprosthetic aortic valve, angiograms, aortagram with bilateral run-offs, PTBA/atherectomy left leg, left foot surgery for crush injury, colonoscopy, bilateral cataract removals. TAVR Oct 2023. Past Anesthesia/Blood Transfusion Reactions: No Reported Reaction Past Psychological History: Anxiety, Depression Smoking Status: Never smoker Past Alcohol Use History: Heavy Past Drug Use History: None Reported - Past Family History Father History Unknown: Yes Family Medical History: Congestive Heart Failure (CHF) Mother History Unknown: Yes Family Medical History: Congestive Heart Failure (CHF) <Shamar Paulson - Last Filed: 02/18/24 15:25> General Exam Limitations: no limitations <Shamar Paulson - Last Filed: 02/18/24 15:25> - General Exam Comments Initial Comments: General: Appears anxious. HEAD: Normal with no signs of head trauma. EYES: PERRLA, EOMI, conjunctiva normal, no discharge. ENT: Hearing grossly intact, normal oropharynx. RESPIRATORY: Clear breath sounds bilaterally. No wheezes, rales, or rhonchi. C/V: Regular rate and rhythm. S1 and S2 auscultated, no edema, peripheral pulses 2+ and intact throughout ABD: Abd is soft, nontender, nondistended. Azul are still intact and appears to be healing well. EXT: Normal range of motion, no obvious deformity SKIN: No rashes or lesions observed on exposed skin. NEURO: Alert and oriented x 1-2 which appears to be the patient's baseline. Moving all 4 extremities. Is agitated and not cooperative. (Shamar Paulson) Course Vital Signs 02/16/24 02/16/24 02/16/24 11:26 14:28 15:26 Temperature 98.3 F Pulse Rate 98 95 88 Respiratory 18 18 18 Rate Blood Pressure 148/69 155/57 163/64 O2 Sat by Pulse 100 99 99 Oximetry 02/16/24 02/16/24 18:10 18:32 Temperature Pulse Rate 96 74 Respiratory 18 18 Rate Blood Pressure 154/62 O2 Sat by Pulse 98 Oximetry Medical Decision Making - Lab Data Result diagrams: 02/16/24 13:25 02/16/24 13:25 <Hero Leach - Last Filed: 02/18/24 05:09> - Lab Data Result diagrams: 02/16/24 13:25 02/16/24 13:25 <Shamar Paulson - Last Filed: 02/18/24 15:25> - Medical Decision Making This patient was signed out pending results of the CT scan and the repeat lactic acid. When the studies returned I discussed case with Dr. Patel, who states that patient is stable for discharge. (Hero Leach) Was pt. sent in by a medical professional or institution (, PA, IT COMPLIANCE ANALYST, urgent care, hospital, or senior living...) When possible be specific @ -Sent by surgeon Dr. Patel for evaluation, CT imaging, labs. Did you speak to anyone other than the patient for history (EMS, parent, family, police, friend...)? What history was obtained from this source @ -I spoke with both of the patient's daughters who also attempted to talk to the patient. One of the patient's daughters will return to the emergency department after she left for a appointment. They attempted to calm him down however he was still agitated. They are requesting that patient have imaging and labs as requested by Dr. Patel. They are in agreement with sedation if necessary. Patient cannot make his own medical decisions due to his chronic dementia. Discussed with Dr. Patel who informed me of what happened at his office. Stated the patient would not let him touch him or evaluate him and kept stating that he wanted to go to the hospital for abdominal pain which is why he recommended presentation to the ER for CT imaging the abdomen pelvis as well as abdominal la bs. Did you review nursing and triage notes (agree or disagree)? Why? @ -I reviewed and agree with nursing and triage notes Were old charts reviewed (outside hosp., previous admission, EMS record, old EKG, old radiological studies, urgent care reports/EKG's, senior living records)? Report findings @ -Charts reviewed Differential Diagnosis (chest pain, altered mental status, abdominal pain women, abdominal pain men, vaginal bleeding, weakness, fever, dyspnea, syncope, headache, dizziness, GI bleed, back pain, seizure, CVA, palpatations, mental health, musculoskeletal)? @ -Not applicable EKG interpreted by me (3pts min.). @ -None done X-rays interpreted by me (1pt min.). @ -None done CT interpreted by me (1pt min.). @ -Pending U/S interpreted by me (1pt. min.). @ -None done What testing was considered but not performed or refused? (CT, X-rays, U/S, labs)? Why? @ -None What meds were considered but not given or refused? Why? @ -None Did you discuss the management of the patient with other professionals (professionals i.e. , PA, IT COMPLIANCE ANALYST, lab, RT, psych nurse, social worker delinquency prevention, clothing consultant, teacher, strike warfare/missile systems officer, geriatric case manager)? Give summary @ Discussed with Dr. Patel who informed me of what happened at his office. Stated the patient would not let him touch him or evaluate him and kept stating that he wanted to go to the hospital for abdominal pain which is why he recommended presentation to the ER for CT imaging the abdomen pelvis as well as abdominal labs. Was smoking cessation discussed for >3mins.? @ -No Was critical care preformed (if so, how long)? @ -yes, frequent evaluations after sedation. 31 minutes Were there social determinants of health that impacted care today? How? (Homelessness, low income, unemployed, alcoholism, drug addiction, transportation, low edu. Level, literacy, decrease access to med. care, residential, rehab)? @ -No Was there de-escalation of care discussed even if they declined (Discuss DNR or withdrawal of care, Hospice)? DNR status @ -No What co-morbidities impacted this encounter? (DM, HTN, Smoking, COPD, CAD, Cancer, CVA, ARF, Chemo, Hep., AIDS, mental health diagnosis, sleep apnea, morbid obesity)? @ -Dementia Was patient admitted / discharged? Hospital course, mention meds given and route, prescriptions, significant lab abnormalities, going to OR and other pertinent info. @ -Patient had recent cholecystectomy. Presents for abdominal imaging and labs. Discussed with Dr. Patel who sent him here. Patient was complaining of abdominal pain is in the office which is why presents for further evaluation here. Patient's daughters have both left and patient is currently agitated and keeps trying to leave. He cannot make his own medical decisions. They request that labs and imaging be obtained. I did discuss with him the option of leaving as he currently has no complaints however they still would like the CT imaging and labs to be done. Vital signs within acceptable limits. Patient was sedated with IM Geodon. He still required nursing staff to hold on his arm. IV was not retained and it came out. He was placed on a playground monitor while he was on Geodon. I reevaluate the patient multiple times to ensure stable vital signs and he had them. Became more agitated again. He is not cooperating with obtaining a second IV for CT imaging with contrast. Patient's laboratory studies were unremarkable. Hemoglobin is 10.9 which is chronic for the patient. Patient has an elevated lactic acidosis of 4.6 however patient did have a somewhat traumatic lab draw as nursing staff had to hold his arm down to prevent him from moving which could artificially elevate the lactic acid. This clinically does not fit the current clinical scenario. We will still obtain CT imaging but obtain repeat lactic acid as well. At this time, patient will be administered a second dose of Geodon and second attempt at IV will be made. Repeat lactic acid will be sent. We will obtain CT imaging of the abdomen pelvis. Patient does require removal of azul prior to discharge. At this time, it is in my shift. Signed out to Dr. Leach pending results of imaging and repeat lab. Undiagnosed new problem with uncertain prognosis? @ -No Drug Therapy requiring intensive monitoring for toxicity (Heparin, Nitro, Insulin, Cardizem)? @ -No Were any procedures done? @ -No Diagnosis/symptom? @ -Agitation in the setting of chronic dementia, abdominal pain Acute, or Chronic, or Acute on Chronic? @ -Acute Uncomplicated (without systemic symptoms) or Complicated (systemic symptoms)? @ -Uncomplicated Side effects of treatment? @ -None Exacerbation, Progression, or Severe Exacerbation] @ -No Poses a threat to life or bodily function? @ -Unknown (Shamar Paulson) - Lab Data Lab Results 02/16/24 02/16/24 02/16/24 Range/Units 13:25 13:25 13:25 WBC 6.4 (3.8-10.6) k/uL RBC 4.24 L (4.30-5.90) m/uL Hgb 10.9 L (13.0-17.5) gm/dL Hct 36.7 L (39.0-53.0) % MCV 86.5 (80.0-100.0) fL MCH 25.7 (25.0-35.0) pg MCHC 29.7 L (31.0-37.0) g/dL RDW 17.1 H (11.5-15.5) % Plt Count 502 H (150-450) k/uL MPV 6.9 Neutrophils % 64 % Lymphocytes % 21 % Monocytes % 6 % Eosinophils % 5 % Basophils % 1 % Neutrophils # 4.1 (1.3-7.7) k/uL Lymphocytes # 1.4 (1.0-4.8) k/uL Monocytes # 0.4 (0-1.0) k/uL Eosinophils # 0.3 (0-0.7) k/uL Basophils # 0.1 (0-0.2) k/uL Hypochromasia Marked Anisocytosis Slight Sodium 141 (137-145) mmol/L Potassium 4.8 (3.5-5.1) mmol/L Chloride 107 (98-107) mmol/L Carbon Dioxide 22 (22-30) mmol/L Anion Gap 12 mmol/L BUN 11 (9-20) mg/dL Creatinine 1.05 (0.66-1.25) mg/dL Est GFR (CKD-EPI)AfAm 80 (>60 ml/min/1.73 sqM) Est GFR (CKD-EPI)NonAf 69 (>60 ml/min/1.73 sqM) Glucose 199 H (74-99) mg/dL Plasma Lactic Acid Felix 4.6 H* (0.7-2.0) mmol/L Calcium 8.8 (8.4-10.2) mg/dL Total Bilirubin 0.6 (0.2-1.3) mg/dL AST 71 H (17-59) U/L ALT 49 (4-49) U/L Alkaline Phosphatase 194 H (38-126) U/L Total Protein 7.4 (6.3-8.2) g/dL Albumin 3.1 L (3.5-5.0) g/dL Amylase 56 (30-110) U/L Lipase 138 (23-300) U/L 02/16/24 Range/Units 16:21 WBC (3.8-10.6) k/uL RBC (4.30-5.90) m/uL Hgb (13.0-17.5) gm/dL Hct (39.0-53.0) % MCV (80.0-100.0) fL MCH (25.0-35.0) pg MCHC (31.0-37.0) g/dL RDW (11.5-15.5) % Plt Count (150-450) k/uL MPV Neutrophils % % Lymphocytes % % Monocytes % % Eosinophils % % Basophils % % Neutrophils # (1.3-7.7) k/uL Lymphocytes # (1.0-4.8) k/uL Monocytes # (0-1.0) k/uL Eosinophils # (0-0.7) k/uL Basophils # (0-0.2) k/uL Hypochromasia Anisocytosis Sodium (137-145) mmol/L Potassium (3.5-5.1) mmol/L Chloride (98-107) mmol/L Carbon Dioxide (22-30) mmol/L Anion Gap mmol/L BUN (9-20) mg/dL Creatinine (0.66-1.25) mg/dL Est GFR (CKD-EPI)AfAm (>60 ml/min/1.73 sqM) Est GFR (CKD-EPI)NonAf (>60 ml/min/1.73 sqM) Glucose (74-99) mg/dL Plasma Lactic Acid Felix 1.4 (0.7-2.0) mmol/L Calcium (8.4-10.2) mg/dL Total Bilirubin (0.2-1.3) mg/dL AST (17-59) U/L ALT (4-49) U/L Alkaline Phosphatase (38-126) U/L Total Protein (6.3-8.2) g/dL Albumin (3.5-5.0) g/dL Amylase (30-110) U/L Lipase (23-300) U/L Critical Care Time Critical Care Time: Yes Total Critical Care Time: 31 <Shamar Paulson - Last Filed: 02/18/24 15:25> Disposition Is patient prescribed a controlled substance at d/c from ED?: No <Hero Leach - Last Filed: 02/18/24 05:09> Is patient prescribed a controlled substance at d/c from ED?: No <Shamar Paulson - Last Filed: 02/18/24 15:25> Clinical Impression: Agitation, Abdominal pain Disposition: HOME SELF-CARE Condition: Good Instructions (If sedation given, give patient instructions): Abdominal Pain (ED) Referrals: Valente Sharma MD [Primary Care Provider] - 1-2 days Naresh Patel MD [Medical Doctor] - 1-2 days
--- NOTE | 2024-02-16 17:20 | CT ---
EXAMINATION TYPE: CT abdomen pelvis w con CT DLP: 1401 mGycm, Automated exposure control for dose reduction was used. DATE OF EXAM: 02/16/2024 5:05 PM COMPARISON: CT abdomen pelvis most recent from 01/22/2024 CLINICAL INDICATION:Male, 78 years old with history of recent cholecystetomy; N/V. recent cholecystet lisa. TECHNIQUE: Axial CT of the abdomen and pelvis. Sagittal and coronal reformats were created on a [employer] workstation. Contrast used:100 ml mL of Isovue 300 with IV Contrast, (none if empty) Oral contrast used: without Oral Contrast (none if empty) FINDINGS: LOWER CHEST: Small left pleural effusion. ABDOMEN LIVER: Unremarkable. GALLBLADDER AND BILE DUCTS: Cholecystectomy clips are noted in the right upper quadrant. No evidence of biliary duct dilation PANCREAS: Unremarkable. SPLEEN: Unremarkable. ADRENAL GLANDS: Unremarkable. KIDNEYS AND URETERS: No evidence of hydronephrosis or renal calculus. The ureters are unremarkable. PELVIS BLADDER: Unremarkable REPRODUCTIVE: Unremarkable. ABDOMEN & PELVIS STOMACH AND BOWEL: Stomach and duodenum are unremarkable. Scattered diverticula are noted throughout the colon. No evidence of bowel obstruction. PERITONEUM/RETROPERITONEUM: No evidence of pneumoperitoneum. There is a trace amount of fluid noted a long the inferolateral aspect of the liver. VASCULATURE: Moderate atherosclerotic calcifications are present throughout the abdominal aorta and i ts branches. No evidence of aortic aneurysm. MUSCULOSKELETAL: No acute osseous abnormalities. Moderate disc degeneration changes are present throu ghout the thoracolumbar spine. LYMPH NODES: No gross evidence for lymphadenopathy. SOFT TISSUE/ABDOMINAL WALL: Postsurgical changes of anterior abdominal wall IMPRESSION: 1. Postcholecystectomy changes with trace perihepatic fluid is identified. Likely postsurgical in sandra ure. If symptoms persist consider dedicated HIDA scan to evaluate for biliary leak. 2. Colonic diverticulosis.
[2024-02-16 18:21] VITALS: BP 154/62
[2024-02-16 18:54] VITALS: PULSE 74
== END 2024-02-16 18:32 | disposition home or self-care (01) ==
LOC: EC 11:22
DX: K57.30 Diverticulosis of large intestine without perforation or abscess without bleeding (principal); R45.1 Restlessness and agitation
CPT/HCPCS: 36415; 80053; 82150; 83605; 83690; 85025; 74177; 99285; 96372 ×2; J3486; Q9967